=== PATIENT | male | born 1940 ===

== ENCOUNTER → 2020-01-28 13:49 | Outpatient (BNVA) | payer MEDICARE, MEDICAID, SELFPAY | PROVIDERS: PCP Internal Medicine; Referring Provider Internal Medicine; Visit Provider Internal Medicine Pulmonary Disease | DX: J47.1 Bronchiectasis with (acute) exacerbation (principal); J44.9 Chronic obstructive pulmonary disease, unspecified; Z79.899 Other long term (current) drug therapy | CPT/HCPCS: 99212 ==

== ENCOUNTER → 2020-02-11 12:46 | Outpatient (BNVA) | payer MEDICARE, MEDICAID, SELFPAY | PROVIDERS: PCP Internal Medicine; Referring Provider Internal Medicine; Visit Provider Internal Medicine Pulmonary Disease | DX: J47.9 Bronchiectasis, uncomplicated (principal); J44.9 Chronic obstructive pulmonary disease, unspecified | CPT/HCPCS: 99212 ==

== ENCOUNTER → 2020-03-25 14:06 | Outpatient (BNVA) | payer MEDICARE, MEDICAID, SELFPAY | PROVIDERS: PCP Internal Medicine; Visit Provider Internal Medicine Pulmonary Disease | DX: J44.9 Chronic obstructive pulmonary disease, unspecified (principal); A31.0 Pulmonary mycobacterial infection | CPT/HCPCS: Q3014 ==

== ENCOUNTER 2020-03-31 21:38 | Emergency (ER) | payer MEDICARE, MEDICAID, SELFPAY ==
[2020-03-31 21:44] VITALS: BP 164/103; PULSE 84; RESP 20; TEMP 36.6; O2SAT 95; BMI 25.8
--- NOTE | 2020-03-31 21:57 | ED_ITS ---
HPI - Abdominal Pain General Chief Complaint: Abdominal Pain Stated Complaint: LT GROIN PAIN Time Seen by Provider: 03/31/20 21:57 Source: patient Mode of arrival: EMS Limitations: language barrier History of Present Illness HPI narrative: Patient complaining of left groin swelling and pain for last 2 weeks off and on today he was lifting the conditioner and noticed increased pain in the left groin area which got better after coming here. Patient denies any fever no nausea no vomiting no abdominal distension patient also complaining of problem when urinating for last few days also have dry cough with history of asthma patient's bowel movements are normal no history of constipation no prior abdominal surgery Related Data Previous Rx's Medication Instructions Recorded albuterol sulfate 90 mcg/actuation 2 puff INHALATION Q4H PRN #8.5 g 02/10/20 aerosol inhaler carvedilol 6.25 mg tablet 6.25 mg PO BID #180 tab 02/10/20 losartan 25 mg tablet 25 mg PO DAILY #90 tab 02/10/20 lovastatin 10 mg tablet 10 mg PO DAILY #90 tab 02/10/20 omeprazole 40 mg capsule,delayed 40 mg PO DAILY #90 cap 02/10/20 release tobramycin 300 mg/5 mL in 0.225 % 300 mg INHALATION BID 28 Days #280 02/10/20 sodium chloride for nebulization ml travoprost 0.004 % eye drops 1 drp OPHTHALMIC (EYE) BEDTIME #5 02/10/20 ml sulfamethoxazole 800 2 tab PO BID 14 Days #56 tab 02/11/20 mg-trimethoprim 160 mg tablet ondansetron HCl 4 mg tablet 4 mg PO BID PRN 14 Days #28 tab 02/17/20 sennosides 8.6 mg tablet 8.6 mg PO BEDTIME PRN 30 Days #30 02/23/20 tab ipratropium 0.5 mg-albuterol 3 mg 3 ml INHALATION Q6H PRN #180 ml 03/25/20 (2.5 mg base)/3 mL nebulization soln prednisone 10 mg tablet 40 mg PO DAILY 7 Days #28 tab 03/25/20 Allergies Allergy/AdvReac Type Severity Reaction Status Date / Time Penicillins [PENICILLINS] Allergy Intermediate PASSED Verified 03/25/20 14:06 OUT trazodone Allergy Unknown tremors Verified 03/25/20 14:06 Review of Systems Review of Systems Constitutional : No Weight loss, No Fever, No Chills ENT/Mouth : No sore throat, No Rhinorrhea Eyes: No Eye Pain, No Swelling Cardiovascular : No Chest Pain, no palpitations Respiratory : ++Cough, No Sputum, + shortness of breath Gastrointestinal : no Nausea, No Vomiting, No Diarrhea, No abdominal Pain, no black stools Genitourinary : No Dysuria, No Urinary Frequency Musculoskeletal : No joint pain, No Myalgias, No Joint Swelling Skin : No Skin Lesions, No rash Neuro : No Weakness, No Numbness, No Dizziness, No Headache Psych : No Anxiety/Panic, No Depression Heme/Lymph: No Bruising, No Lymphadenopathy Endocrine : No Polyuria, No Polydipsia All other systems reviewed and are negative Physical Exam Vital Signs: Vital Signs: Last Vital Signs Temp 98 F 03/31/20 21:44 Pulse 70 03/31/20 23:25 Resp 16 03/31/20 23:25 BP 158/94 H 03/31/20 23:25 Pulse Ox 96 03/31/20 23:25 Body Mass Index 25.8 Const: General: cooperative, healthy appearing, comfortable and no acute distress Nutritional Appearance: average body habitus Orientation/consciousness: patient oriented x3 Limitations: no limitations HENMT: Head: Yes No palpable skull fracture present and Yes normocephalic Ears: hearing grossly normal bilaterally Eyes: Conjunctivae: conjunctivae normal Sclerae: sclerae normal Neck: Neck: Yes normal visual inspection Resp: Effort & Inspection: normal respiratory effort Auscultation: clear to auscultation bilaterally, no crackles, no rales, no rhonchi, no wheezes and diminished lung sounds Cardio: Palpation: normal PMI Rate: regular rate Rhythm: regular rhythm Heart sounds: S1 normal heart sound present and S2 normal heart sound present GI: Inspection: Yes normal to inspection Palpation (GI): Soft to palpation Auscultation: normal bowel sounds : General: Yes no CVA tenderness Male General Exam: Yes hernia (Left inguinal direct hernia reducible nontender) Penis: normal penis Scrotum: scrotum normal Testes: Testes normal Back/Spine/Pelvis: Back: no CVA tenderness Thoracic/Lumbar Spine: thoracic and lumbar spine normal to inspection Skin: General skin exam: no rashes or lesions noted Neuro: General: patient oriented x3 and no focal motor deficits Extrem: General: Yes normal to inspection, Yes normal gait and No pedal edema MDM - Abdominal Pain MDM Narrative Medical decision making narrative: Patient with reducible left direct inguinal hernia, urine is negative for any UTI chest x-ray negative for any acute COVID of 19 is also negative patient advised to follow with Dr. Ames surgeon Differential Diagnosis Differential diagnosis: Likely small bowel obstruction Lab Data Attestation: I reviewed the patient's lab results. Labs: Lab Results 03/31/20 03/31/20 Range/Units 22:11 22:15 Urine Color YELLOW Urine Appearance CLEAR Urine pH 6.0 (5.0-8.0) Ur Specific [place] >= 1.030 H (1.005-1.025) Urine Protein 1+ H (NEG-TRACE) MG/DL Urine Glucose (UA) NEG (NEG) MG/DL Urine Ketones NEG (NEG) MG/DL Urine Blood 1+ H (NEG) Urine Nitrite NEG (NEG) Ur Leukocyte Esterase NEG (NEG) Urine RBC 1-4 (0) /HPF Urine WBC 0 (0-4) /HPF Ur Squamous Epith Cells TRACE /LPF Urine Bacteria NONE /LPF Urine Mucus TRACE /LPF COVID-19 ([facility]) Negative (Negative) COVID-19 Clin Com See Note Discharge Plan Discharge Clinical Impression: Inguinal hernia of left side without obstruction or gangrene Patient Disposition: Home, Self-Care Instructions: Inguinal Hernia (ED) Additional Instructions: do not strain or lift any heavy stuff. Do not stand for long time. Follow-up with surgeon as advised. Reduce the hernia the movement it comes out so that does not stayed outside for long no fuerce ni levante objetos pesados. No te quedes de pie por mucho tiempo. Realice un seguimiento con el cirujano seg?n lo recomendado. Reducir la hernia el movimiento que sale para que no se quede afuera por mucho tiempo Prescriptions: No Action ondansetron HCl [Zofran] 4 mg tablet 4 mg PO BID PRN (Reason: nausea and vomiting) 14 Days Qty: 28 RF: 0 sennosides [senna] 8.6 mg tablet 8.6 mg PO BEDTIME PRN (Reason: constipation) 30 Days Qty: 30 RF: 0 albuterol sulfate 90 mcg/actuation HFA aerosol inhaler 2 puff inhalation Q4H PRN (Reason: shortness of breath or wheezing) Qty: 8.5 RF: 4 carvedilol 6.25 mg tablet 6.25 mg PO BID Qty: 180 RF: 0 losartan 25 mg tablet 25 mg PO DAILY Qty: 90 RF: 3 lovastatin 10 mg tablet 10 mg PO DAILY Qty: 90 RF: 3 omeprazole 40 mg capsule,delayed release(DR/EC) 40 mg PO DAILY Qty: 90 RF: 3 tobramycin in 0.225 % NaCl 300 mg/5 mL solution for nebulization 300 mg inhalation BID 28 Days Qty: 280 RF: 0 travoprost 0.004 % drops 1 drp ophthalmic (eye) BEDTIME Qty: 5 RF: 5 sulfamethoxazole-trimethoprim [Bactrim DS] 800-160 mg tablet 2 tab PO BID 14 Days Qty: 56 RF: 0 prednisone 10 mg tablet 40 mg PO DAILY 7 Days Qty: 28 RF: 0 ipratropium-albuterol 0.5 mg-3 mg(2.5 mg base)/3 mL solution for nebulization 3 ml inhalation Q6H PRN (Reason: shortness of breath or wheezing) Qty: 180 RF: 3 Referrals: Fitz Ames MD [Physician] - 1 week Interventions: ED Discharge Assessment Last Done: 03/31/20 23:36 Discharge Date/Time: 03/31/20 23:37 Print Language: Uzbek [facility] Past Medical History Medical History Congestive heart failure Essential hypertension GERD (gastroesophageal reflux disease) Glaucoma History of MAC infection Pure hypercholesterolemia Surgical History History of cystoscopy History of lumbar surgery History of rectal polypectomy Family History Family History Father No problems noted. Mother Medical history unknown Sister Diabetes Social History Social History Smoking Status: Former smoker Tobacco Type: Cigarette Advance Directives: No Advance Directives Information Provided: No
--- NOTE | 2020-03-31 22:07 | XR_ITS ---
EXAMINATION: XR CHEST CLINICAL INFORMATION: Cough. COMPARISON: Multiple prior exams. Most recent Chest x-ray 11/26/2019. CT of chest 11/26/2019 TECHNIQUE: Frontal portable view of the chest was obtained. 10:04 PM FINDINGS: There are multiple bilateral patchy irregular airspace opacities in the lungs. The pattern and distribution and severity is similar to the prior exam of 11/26/2019. Patient has known bronchiectasis better demonstrated on CT of chest. No acute airspace opacities. No pleural effusion. XR/XR chest 1V IMPRESSION: Persistent multifocal airspace opacities similar to prior chest x-ray 11/26/2019.
[2020-03-31 22:22] LABS: Glucose Urine UA NEG (NEG); Leukocyte Esterase Urine NEG (NEG); Nitrite Urine NEG (NEG); Specific Gravity - Urine >= 1.030 (1.005-1.025); Urine Blood 1+ (NEG); Urine Ketones NEG (NEG); Urine Protein 1+ MG/DL (NEG-TRACE)
[2020-03-31 22:24] LABS: Appearance Urine CLEAR; Color Urine YELLOW
[2020-03-31 22:35] LABS: COVID-19 Test Negative (Negative)
[2020-03-31 22:37] LABS: Mucus Urine TRACE /LPF; Squamous Epithelial Cell Urine TRACE /LPF; WBC Urine 0 /HPF (0-4)
[2020-03-31 23:25] VITALS: BP 158/94; PULSE 70; RESP 16; O2SAT 96
--- NOTE | 2020-03-31 23:27 | PC.NURSE ---
This RN at bedside attempting to discharge pt with historical interpreter. Pt expressing frustration at wait and lack of pain medications. MD at bedside, plan for Ibuprofen and discharge. VSS.
--- NOTE | 2020-03-31 23:35 | PC.NURSE ---
Pt provided with DC paperwork. Although pt requesting pain medication, pt refusing Ibuprofen. Pt provided with DC paperwork and ambulating with a steady gait to the waiting room.
== END 2020-03-31 23:37 | disposition home or self-care (01) ==
PROVIDERS: Emergency Provider Internal Medicine; PCP Advanced Practice Midwife
DX: K40.90 Unilateral inguinal hernia, without obstruction or gangrene, not specified as recurrent (principal); R10.30 Lower abdominal pain, unspecified; Z20.822 Contact with and (suspected) exposure to COVID-19
CPT/HCPCS: 36415; 71045; 81001; 87635; 99283; 99284

== ENCOUNTER → 2020-04-01 14:06 | Outpatient (BNVA) | payer MEDICARE, MEDICAID, SELFPAY | PROVIDERS: PCP Advanced Practice Midwife; Visit Provider Internal Medicine Pulmonary Disease | DX: J47.9 Bronchiectasis, uncomplicated (principal); A31.0 Pulmonary mycobacterial infection | CPT/HCPCS: 99212 ==

== ENCOUNTER → 2020-05-06 13:31 | Outpatient (BNVA) | payer MEDICARE, MEDICAID, SELFPAY | PROVIDERS: PCP Nurse Practitioner Family; Visit Provider Internal Medicine Pulmonary Disease | DX: J47.9 Bronchiectasis, uncomplicated (principal); A31.0 Pulmonary mycobacterial infection | CPT/HCPCS: 99212 ==

== ENCOUNTER → 2020-05-07 10:28 | Outpatient (BNVA) | payer MEDICARE, MEDICAID, SELFPAY | PROVIDERS: PCP Internal Medicine; Visit Provider Surgery | DX: K40.90 Unilateral inguinal hernia, without obstruction or gangrene, not specified as recurrent (principal) | CPT/HCPCS: 99202 ==

== ENCOUNTER → 2020-05-26 13:59 | Outpatient (BNVA) | payer MEDICARE, MEDICAID, SELFPAY | PROVIDERS: PCP Internal Medicine; Visit Provider Internal Medicine Pulmonary Disease | DX: J44.9 Chronic obstructive pulmonary disease, unspecified (principal); A31.0 Pulmonary mycobacterial infection; Z87.891 Personal history of nicotine dependence | CPT/HCPCS: Q3014 ==

== ENCOUNTER → 2020-07-06 12:51 | Outpatient (REF) | payer MEDICARE, MEDICAID, SELFPAY ==
--- NOTE | 2020-07-06 13:00 | CA_ITS ---
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 Moderate LV systolic dysfunction with LVEF of 35-40% with impaired relaxation filling pattern 2. Trace aortic regurgitation 3. Normal RV systolic pressure 4. No pericardial effusion Findings Left Ventricle Mildly increased left ventricular cavity size. There is normal left ventricular wall thickness. The left ventricular systolic function is moderately decreased. The visually estimated ejection fraction is between 35 40%. There is moderate global hypokinesis. Spectral Doppler is indicative of an impaired relaxation filling pattern. E/E prime ratio is between 8 and 15 consistent with indeterminate filling pressures. Right Ventricle Normal right ventricular cavity size and systolic function. Atria Both atria are normal in size. There is no evidence of interatrial shunt. Aortic Valve The aortic valve structure and function is likely normal. There is no aortic valve stenosis. There is trace (trivial) aortic valve regurgitation. Mitral Valve Normal mitral valve structure and function. There is trace mitral valve regurgitation. There is no mitral valve stenosis. Pulmonic Valve The pulmonic valve was not well visualized. Tricuspid Valve Normal tricuspid valve structure. There is trace tricuspid valve regurgitation. The right ventricular systolic pressure is normal. The right ventricular systolic pressure is 18 mmHg. Normal right atrial pressure. There is no evidence of pulmonary hypertension. Great Vessels All visible segments of the aorta are normal in size. The pulmonary artery was not well visualized. Venous The inferior vena cava is normal in size and collapses greater than 50% with inspiration. Pericardium/Pleural There is no evidence of pericardial effusion. Prior Study Comparison Changes noted compared to prior study dated: 04/22/2019. LV systolic function appears further mildly reduced Measurements M-Mode Liner Measurements Normals - Women/Men AOV Cusps: 2.00 1.5-2.6 cm/m2 2D Linear Measurements IVSd: 0.89 0.6-0.9/0.6-1.0 cm LVIDd: 5.43 3.9-5.3/4.2-5.9 cm LVIDd Index: 3.07 2.4-3.2/2.2-3.1 cm/m2 LVIDs: 4.75 2.0-3.6 cm LVPWd: 0.94 0.7-1.1 cm Ao Root: 3.70 2.1-3.5 cm LA Diam: 3.00 2.7-3.8/3.0-4.0 cm LAIDs Index: 1.69 1.5-2.3 cm/m2 LV Mass: 230.80 67-162/88-224 g LV Mass Index: 130.39 43-95/49-115 g/m2 LVOT Diam: 2.10 3.0+(-)1.3 cm 2D Systolic Function EF 4C: 41.20 >55% EF 2C: 27.90 >55% EF BiP: 35.80 >55% Mitral Valve MV Pk E: 0.72 MV PK A: 1.11 MV Decel Time: 152.00 E/A: 0.70 E'Lateral: 7.72 E'Medial: 4.90 E/E' Med: 14.70 E/E' Lat: 9.40 PHT: 44.00 MVA PHT: 5.00 Decel [place]: 4.76 Aortic Valve AoV Pk Darren: 1.58 AoV Mn Darren: 1.11 AoV VTI: 0.34 AoV Pk Grad: 10.00 Aov Mn Grad: 5.00 DULCE Cont.VTI: 1.41 AI Pk Darren: 3.46 AI [place]: 1.67 LVOT LVOT Pk Darren: 0.71 LVOT Mn Darren: 0.49 LVOT VTI: 0.14 LVOT Pk Grad: 2.00 LVOT Mn Grad: 1.00 LVOT Diam: 2.10 LVOT Area: 3.46 Diastolic Function MV Pk E: 0.72 MV Pk A: 1.11 E/A: 0.70 E'Medial: 4.90 E/E' Med: 14.70 E' Laterial: 7.72 E/E' Lat: 9.40 Tricuspid Valve TR Pk Darren: 1.93 TR Pk Grad: 15.00 RA Press: 3.00 RVSP: 18.00 Great Vessels Aorta Ao Root-2D: 3.70 2.0-3.7 cm Ao Arch: 2.60 Pulmonary Valve PV Pk Darren: 0.87 Peak PV Grad: 3.00 Updated in Other Vendor System with Status of Final Toñito Cantrell MD electronically signed on 07/07/2020 12:49:29 PM with status of Final
== END ==
LOC: HO.CARD 12:51
PROVIDERS: Visit Provider Internal Medicine
DX: I42.8 Other cardiomyopathies (principal)
CPT/HCPCS: 93306; Q9957

== ENCOUNTER → 2020-07-20 13:23 | Outpatient (BNVA) | payer MEDICARE, MEDICAID, SELFPAY | PROVIDERS: PCP Internal Medicine; Referring Provider Internal Medicine; Visit Provider Internal Medicine | DX: I42.8 Other cardiomyopathies (principal); I45.2 Bifascicular block | CPT/HCPCS: 93005; 99212 ==

== ENCOUNTER 2020-09-06 12:23 | Inpatient (IN) | payer MEDICARE, MEDICAID, SELFPAY ==
[2020-09-06] VITALS (9 sets, daily range): BP systolic 110–140; BP diastolic 65–100; PULSE 76–98; RESP 18–31; TEMP 36.2–36.9; O2SAT 94–97; BMI 24.6
--- NOTE | ~2020-09-06 | XR_ITS ---
EXAMINATION: PORTABLE CHEST 1 VIEW CLINICAL INFORMATION: pneumothorax . COMPARISON: 08/29/2020. TECHNIQUE: Portable frontal view of the chest was obtained. FINDINGS: Coarsened reticular markings are again seen with patchy and nodular airspace disease bilaterally. Small stable right upper pneumothorax is again noted with the size and distribution similar to today's earlier chest x-ray. The patchy nodular airspace disease is better demonstrated on the CT scan from earlier today. No significant effusion, edema, or pneumothorax. Cardiac silhouette within normal limits for size. XR/XR chest 1V IMPRESSION: Stable patchy bilateral nodular airspace disease and stable right-sided pneumothorax when compared to earlier today.
--- NOTE | ~2020-09-06 | XR_ITS ---
EXAMINATION: XR CHEST CLINICAL INFORMATION: Right pneumothorax. COMPARISON: Chest 09/07/2020 TECHNIQUE: Frontal view of the chest was obtained. FINDINGS: Again visualized is a right apical pneumothorax, stable. There are increased interstitial markings in both lungs most prominent in the right upper and midlung with mild underlying bronchiectasis, stable. Patchy opacity in the right upper lobe likely chronic atelectasis or infiltrate is stable. There is no pleural effusion. The heart size and pulmonary vascularity is normal. No gross bony abnormality. XR/XR chest 1V IMPRESSION: Unchanged right pneumothorax and chronic right upper lobe parenchymal changes, similar previous study with loss of right lung volume. There are no new findings.
--- NOTE | ~2020-09-06 | XR_ITS ---
EXAMINATION: XR CHEST CLINICAL INFORMATION: Pneumothorax. COMPARISON: 09/06/2020 TECHNIQUE: Frontal view of the chest was obtained. FINDINGS: Small right apical pneumothorax is unchanged. No pleural effusion. No left-sided pneumothorax. Coarsened reticular markings with patchy multifocal, nodular airspace disease appear unchanged from prior and are consistent with underlying bronchiectasis, bronchial wall thickening, and multifocal airspace consolidation. No new airspace disease. Cardiac and mediastinal contours are normal. Pulmonary vasculature is normal. No acute osseous findings. XR/XR chest 1V IMPRESSION: Unchanged right pneumothorax. Unchanged chronic underlying airway disease with bronchiectasis and multifocal nodular airspace disease.
--- NOTE | ~2020-09-06 | XR_ITS ---
EXAMINATION: XR CHEST CLINICAL INFORMATION: Cough. COMPARISON: Previous chest x-ray most recent March 2020 TECHNIQUE: Frontal view of the chest was obtained. FINDINGS: The cardiac and mediastinal contours are stable. There are are scattered areas of bronchial wall thickening and bronchiectasis and nodular opacities suggestive of severe airways disease. This appears increased from most recent exam March 2020. There is a small right pneumothorax. This measures 2 cm in greatest thickness at the lung apex. There is no pleural effusion. There is an old left posterior seventh rib fracture. There are degenerative changes of the spine. XR/XR chest 1V IMPRESSION: Severe airways disease with areas of bronchiectasis, bronchial wall thickening and nodular opacities. This is increased from most recent exam 03/31/2020. New small right pneumothorax.
--- NOTE | ~2020-09-06 | CT_ITS ---
EXAMINATION: CT CHEST WITHOUT CONTRAST CLINICAL INFORMATION: Confirm pneumothorax COMPARISON: Previous chest x-ray from earlier the same day and chest CT November 2019 TECHNIQUE: Multidetector volumetric CT imaging of the chest was done. Axial MIP volume rendering provided. Sagittal and coronal reformatted images were obtained. This CT examination was performed using dose optimization techniques as appropriate, variously including the following: *Automated exposure control *Adjustment of mA and/or kV according to patient size (this includes techniques or standardized protocols for targeted exams where dose is matched to indication/reason for exam; i.e. extremities or head) *Use of iterative reconstruction technique DLP: 240 mGy-cm FINDINGS: Exam is limited due to artifact from respiratory motion. LUNGS: There is evidence of severe cystic bronchiectasis in the right upper lobe which has progressed from 2020 exam. There is more cylindrical bronchiectasis seen in the right middle and right lower lobes. There are scattered areas of bronchial wall thickening and bronchial soft tissue opacification/mucous plugging suggestive of active airways disease. This is increased from 2020 exam as well. There is new soft tissue opacification with small air-fluid level in a cyst or cavity in the right upper lobe measuring approximately 2 x 2.5 cm axial image 22 series 3. There is a 1.8 cm right upper lobe nodule axial image 21 series 3 that appears unchanged. There is mild bronchial wall thickening seen in the left upper lobe. There is mild cylindrical bronchiectasis and bronchial wall soft tissue opacification and mucous plugging in the lingula. This does not appear appreciably changed. There is mild cylindrical bronchiectasis bronchial wall thickening and mucus plugging in the left lower lobe. This appears slightly increased from 2020 exam. MEDIASTINUM: There is shotty mediastinal lymphadenopathy. The heart does not appear enlarged. There is mild coronary artery calcification. There is no pericardial effusion. PLEURA: There is a small right pneumothorax. This appears loculated. This measures 2 cm the right posterior lung apex. This measures 3.5 cm at the right cardiophrenic angle. There is a very small right pleural effusion or pleural thickening. There is no left pleural effusion. AXILLA: No lymphadenopathy. UPPER ABDOMEN: Unremarkable. OSSEOUS STRUCTURES: There are degenerative changes of the spine. CT/CT chest wo con IMPRESSION: Worsening bronchiectasis and airways disease. New small loculated right pneumothorax greatest at the right lung apex and adjacent the right cardiophrenic angle.
--- NOTE | 2020-09-06 13:03 | ECG_ITS ---
Test Reason : DYSPNEA Blood Pressure : / mmHG Vent. Rate : 084 BPM Atrial Rate : 084 BPM P-R Int : 134 ms QRS Dur : 128 ms QT Int : 400 ms P-R-T Axes : 053 -47 -10 degrees QTc Int : 472 ms Normal sinus rhythm Right bundle branch block Left anterior fascicular block Bifascicular block Abnormal ECG When compared with ECG of 26-NOV-2019 14:28, No significant change was found Referred By: Odilon Callaway Electronically Signed By:ELISA BRIZUELA MD
--- NOTE | 2020-09-06 13:25 | ED_ITS ---
HPI - URI/Sore Throat General Chief Complaint: Upper Respiratory Symptoms Stated Complaint: diff breathing Time Seen by Provider: 09/06/20 13:01 Source: patient Mode of arrival: ambulatory Limitations: no limitations History of Present Illness HPI Narrative: Patient presents to ED for shortness of breath worsening past 4 days on exertion. Patient states also polydipsia and polyuria. Patient states also having a cough. Patient states no fever, chest pain, swelling of lower extremities, calf pain. Patient states history of chronic lung issues may be albuterol COPD but unsure. Patient states no relief with nebulizer at home. Related Data Home Medications Medication Instructions Recorded Confirmed brimonidine-timolol [Combigan] 1 drp OPHTHALMIC (EYE) BID 09/06/20 09/06/20 doxycycline monohydrate 100 mg PO MOWEFR 09/06/20 09/06/20 latanoprost 1 drp OPHTHALMIC (EYE) BEDTIME 09/06/20 09/06/20 prednisone 5 mg PO DAILY 09/06/20 09/06/20 Previous Rx's Medication Instructions Recorded lovastatin 10 mg tablet 10 mg PO DAILY #90 tab 02/10/20 omeprazole 40 mg capsule,delayed 40 mg PO DAILY #90 cap 02/10/20 release sennosides 8.6 mg tablet 8.6 mg PO BEDTIME PRN 30 Days #30 02/23/20 tab ipratropium 0.5 mg-albuterol 3 mg 3 ml INHALATION QID #120 ml 06/18/20 (2.5 mg base)/3 mL nebulization soln oxybutynin chloride 10 mg 10 mg PO DAILY 90 Days #90 tab 07/07/20 tablet,extended release 24 hr carvedilol 6.25 mg tablet 6.25 mg PO BID #180 tab 07/09/20 sacubitril 24 mg-valsartan 26 mg 1 tab PO BID #60 tab 07/20/20 tablet mirabegron 25 mg tablet,extended 25 mg PO DAILY 90 Days #90 tab 08/26/20 release 24 hr albuterol sulfate 90 mcg/actuation 2 puff INHALATION Q4H PRN #8.5 g 09/02/20 aerosol inhaler Allergies Allergy/AdvReac Type Severity Reaction Status Date / Time Penicillins [PENICILLINS] Allergy Intermediate PASSED Verified 07/07/20 13:54 OUT trazodone Allergy Intermediate tremors Verified 07/07/20 13:54 Review of Systems Review of Systems: Yes all other systems are reviewed and are negative Constitutional: Constitutional: Reports as per HPI and Reports no additional constitutional complaints Eyes: Eyes: Reports as per HPI and Reports no additional eye complaints ENT: Reports system reviewed and no additional complaints, except as documented and Reports as per HPI Cardiovascular: Cardiovascular: Reports as per HPI, Reports no additional cardiovascular complaints, Denies chest pain, Reports dyspnea and Reports dyspnea on exertion Respiratory: Respiratory: Reports as per HPI, Reports no additional respiratory complaints, Reports dyspnea and Reports dyspnea on exertion Gastrointestinal: Gastrointestinal: Reports as per HPI and Reports no additional gastrointestinal complaints Genitourinary: Genitourinary: Reports no additional male genitourinary complaints and Reports as per HPI Musculoskeletal: Musculoskeletal: Reports no additional musculoskeletal complaints and Reports as per HPI Neurologic: Reports system reviewed and no additional complaints, except as documented and Reports as per HPI Psychiatric: Psychiatric: Reports no additional psychiatric complaints and Reports as per HPI [facility] Past Medical History Medical History Congestive heart failure Essential hypertension GERD (gastroesophageal reflux disease) Glaucoma Hernia History of MAC infection Medicare annual wellness visit, initial NICM (nonischemic cardiomyopathy) Pure hypercholesterolemia Surgical History History of cystoscopy History of lumbar surgery History of rectal polypectomy Family History Family History Father No problems noted. Mother Medical history unknown Sister Diabetes Daughter In good health Son In good health Brother No problems noted. Social History Social History Patient Tobacco Use Status: Never used Tobacco Use of substances other than those prescribed or required for medical reasons: No Advance Directives: No Advance Directives Information Provided: No Physical Exam Vital Signs: Vital Signs: Last Vital Signs Temp 97.9 F 09/06/20 17:33 Pulse 83 09/06/20 17:33 Resp 20 09/06/20 17:33 BP 130/75 09/06/20 17:33 Pulse Ox 95 09/06/20 17:33 Oxygen Flow Rate 2 09/06/20 12:48 Body Mass Index 24.6 Const: General: cooperative, healthy appearing, comfortable, no acute distress, well developed, alert, awake and Physically active Orientatio n/consciousness: patient oriented x3 HENMT: Head: Yes normal to inspection, Yes No palpable skull fracture present, Yes normocephalic, Yes atraumatic and No abrasion Eyes: General: appearance normal, both eyes and all related structures Neck: Neck: Yes normal visual inspection, Yes full ROM, Yes no lymphadenopathy, Yes no meningeal signs, Yes trachea midline, Yes supple and No tender Chest: Chest palpation & inspection: normal inspection of the chest and normal palpation of entire chest wall Resp: Effort & Inspection: normal respiratory effort and able to speak in complete sentences Auscultation: wheezes inspiratory wheezes Cardio: Jugular venous distension: no JVD Heart sounds: S1 normal heart sound present and S2 normal heart sound present GI: Inspection: Yes normal to inspection and No abdominal wall ecchymosis Palpation (GI): Soft to palpation, not firm, nontender, no guarding and not rigid : General: No CVA tenderness and Yes no CVA tenderness Back/Spine/Pelvis: Back: no CVA tenderness, No CVA tenderness and No back tenderness Skin: General skin exam: no rashes or lesions noted and elasticity normal Neuro: General: patient oriented x3, gait normal, no meningeal signs and CN's II-XI intact bilaterally Cranial nerves: Yes CN's II-XII intact bilaterally Extrem: Other: Lower extremities negative for swelling, pitting edema, calf tenderness General: Yes normal to inspection and Yes full ROM Psych: Appearance: grossly normal, well kempt and not disheveled Course Course Course Narrative: sinus COPD exacerbation will also send a BNP to make sure there is no CHF. Reevaluation(s) Reevaluation #1: Critical result from radiologist chest x-ray which shows airway disease with small pneumothorax. Patient is stable. Patient nebulizer 98% and normal heart rate. Blood pressure normal. Patient has a white count will be given antibiotics. Contacted thoracic on-call waiting for response Time: 14:11 Reevaluation #2: so spoke with PA on-call Pradeep Ross and he was informed of patient's history, physical exam, and diagnostics. He states presently only conservative management is needed. Recommend patient to be placed on oxygen and serial x-rays every 6 hours. Time: 14:18 Reevaluation #3: Spoke with thoracic on-call Pradeep Ross call me back and states chest CT should be ordered for patient and I wrote possibly do a pigtail. Patient kept NPO. Time: 15:10 Additional Reevaluation(s): Thoracic on-call BOY Ross call me and states he spoke with the tendon wanted to hold off with IR and does have patient admitted for serial x-rays every 6 hours. MDM - URI/Sore Throat MDM Narrative Medical decision making narrative: COPD exacerbation. Pneumothorax Lab Data Result diagrams: 09/06/20 13:38 09/06/20 13:38 Labs: Lab Results 09/06/20 09/06/20 09/06/20 Range/Units 13:38 13:38 13:38 WBC 12.4 H (4.8-10.8) X10*3/uL RBC 5.49 (4.60-5.80) X10*6/uL Hgb 16.1 (14.0-18.0) g/dl Hct 49.0 (42-52) % MCV 89.3 (80-98) fL MCH 29.3 (27.0-33.0) pg MCHC 32.9 (31.0-36.0) g/dl RDW 13.3 (11.0-16.0) % Plt Count 229 (160-400) X10*3/uL MPV 9.6 (9.4-12.4) fL Immature Gran % (Auto) 0.2 (0.0-0.4) % Neut % (Auto) 90.0 H (45-73) % Lymph % (Auto) 4.6 L (20-40) % [place] % (Auto) 3.0 (2-11) % Eos % (Auto) 2.0 (0-4) % Baso % (Auto) 0.2 (0-2) % Lymph # (Auto) 0.6 L (1.2-4.9) X10*3/uL [place] # (Auto) 0.4 (0.1-1.2) X10*3/uL Eos # (Auto) 0.3 (0.0-0.4) X10*3/uL Baso # (Auto) 0.0 (0.0-0.2) X10*3/uL Abs Immat Gran (auto) 0.03 (0.00-0.03) X10*3/uL Absolute Neuts (auto) 11.2 H (2.0-8.3) X10*3/uL Absolute Nucleated RBC 0.000 (0.0-0.012) X10*3/uL Nucleated RBC % (auto) 0.0 (0.0-0.2) /100WBC Sodium 140 (135-145) mmol/L Potassium 4.3 (3.3-5.1) mmol/L Chloride 107 (96-108) mmol/L Carbon Dioxide 27 (22-29) mmol/L Anion Gap 10 L (12-20) BUN 10 (9-16) mg/dL Creatinine 0.73 (0.5-1.4) mg/dL Estim Creat Clear Calc 72.5 Estimated GFR > 60 Random Glucose 130 H (60-115) mg/dL Lactic Acid (0.5-2.0) mmol/L Calcium 8.8 (8.4-10.2) mg/dL Total Bilirubin 0.3 (0.0-1.0) mg/dL AST 15 (5-37) U/L ALT 13 (0-40) U/L Alkaline Phosphatase 70 (39-117) U/L Troponin I High Sens 6.5 (<3.5-35.0) ng/L B-Natriuretic Peptide 15 (<100) pg/mL Total Protein 7.3 (6.5-8.0) g/dL Albumin 3.9 (3.5-5.0) g/dL Urine Color Urine Appearance Urine pH (5.0-8.0) Ur Specific [place] (1.005-1.025) Urine Protein (NEG-TRACE) MG/DL Urine Glucose (UA) (NEG) MG/DL Urine Ketones (NEG) MG/DL Urine Blood (NEG) Urine Nitrite (NEG) Ur Leukocyte Esterase (NEG) Urine RBC (0) /HPF Urine WBC (0-4) /HPF Ur Squamous Epith Cells /LPF Urine Bacteria /LPF COVID-19 ([facility]) (Negative) COVID-19 Clin Com 09/06/20 09/06/20 09/06/20 Range/Units 13:39 13:45 14:51 WBC (4.8-10.8) X10*3/uL RBC (4.60-5.80) X10*6/uL Hgb (14.0-18.0) g/dl Hct (42-52) % MCV (80-98) fL MCH (27.0-33.0) pg MCHC (31.0-36.0) g/dl RDW (11.0-16.0) % Plt Count (160-400) X10*3/uL MPV (9.4-12.4) fL Immature Gran % (Auto) (0.0-0.4) % Neut % (Auto) (45-73) % Lymph % (Auto) (20-40) % [place] % (Auto) (2-11) % Eos % (Auto) (0-4) % Baso % (Auto) (0-2) % Lymph # (Auto) (1.2-4.9) X10*3/uL [place] # (Auto) (0.1-1.2) X10*3/uL Eos # (Auto) (0.0-0.4) X10*3/uL Baso # (Auto) (0.0-0.2) X10*3/uL Abs Immat Gran (auto) (0.00-0.03) X10*3/uL Absolute Neuts (auto) (2.0-8.3) X10*3/uL Absolute Nucleated RBC (0.0-0.012) X10*3/uL Nucleated RBC % (auto) (0.0-0.2) /100WBC Sodium (135-145) mmol/L Potassium (3.3-5.1) mmol/L Chloride (96-108) mmol/L Carbon Dioxide (22-29) mmol/L Anion Gap (12-20) BUN (9-16) mg/dL Creatinine (0.5-1.4) mg/dL Estim Creat Clear Calc Estimated GFR Random Glucose (60-115) mg/dL Lactic Acid 0.9 (0.5-2.0) mmol/L Calcium (8.4-10.2) mg/dL Total Bilirubin (0.0-1.0) mg/dL AST (5-37) U/L ALT (0-40) U/L Alkaline Phosphatase (39-117) U/L Troponin I High Sens (<3.5-35.0) ng/L B-Natriuretic Peptide (<100) pg/mL Total Protein (6.5-8.0) g/dL Albumin (3.5-5.0) g/dL Urine Color YELLOW Urine Appearance CLEAR Urine pH 8.0 (5.0-8.0) Ur Specific [place] 1.015 (1.005-1.025) Urine Protein 1+ H (NEG-TRACE) MG/DL Urine Glucose (UA) NEG (NEG) MG/DL Urine Ketones NEG (NEG) MG/DL Urine Blood 2+ H (NEG) Urine Nitrite NEG (NEG) Ur Leukocyte Esterase NEG (NEG) Urine RBC 10-14 H (0) /HPF Urine WBC 1-4 (0-4) /HPF Ur Squamous Epith Cells NONE /LPF Urine Bacteria NONE /LPF COVID-19 ([facility]) Negative (Negative) COVID-19 Clin Com See Note ECG Data Interpretation: normal sinus rhythm. , right bundle-branch block. Left bundle anterior fascicular block. Ventricular 84. Pr interval 134. QRS 128. QTC 472. Negative STEMI Critical Care Time Critical Care Time Critical Care Time: Yes Total Critical Care Time: 60 Attestation: x-ray shows pneumothorax. Thoracic PA on-call was notified. Patient placed on oxygen. No chest tube indicated. Discharge Plan Discharge Clinical Impression: COPD (chronic obstructive pulmonary disease), Pneumothorax Patient Disposition: Admitted As Inpatient
[2020-09-06 13:45] LABS: MANUAL DIFF FLAG NO
[2020-09-06 13:49] LABS: Basophils Percent Auto 0.2 % (0-2); Eosinophils Absolute Auto 0.3 X10*3/uL (0.0-0.4); Hemoglobin 16.1 g/dl (14.0-18.0); Imm Gran Abs Auto 0.03 X10*3/uL (0.00-0.03); Imm Gran Pct Auto 0.2 % (0.0-0.4); Lymphocytes Absolute Auto 0.6 X10*3/uL (1.2-4.9); Lymphocytes Percent Auto 4.6 % (20-40); Mean Corpuscular HGB Conc 32.9 g/dl (31.0-36.0); Mean Corpuscular Hemoglobin 29.3 pg (27.0-33.0); Mean Corpuscular Volume 89.3 fL (80-98); Mean Platelet Volume 9.6 fL (9.4-12.4); Monocytes Absolute Auto 0.4 X10*3/uL (0.1-1.2); Neutrophils Absolute Auto 11.2 X10*3/uL (2.0-8.3); Platelet Count 229 X10*3/uL (160-400); Red Blood Count 5.49 X10*6/uL (4.60-5.80); Red Cell Distribution Width 13.3 % (11.0-16.0); White Blood Count 12.4 X10*3/uL (4.8-10.8)
[2020-09-06] MEDS: Magnesium Sulfate/H2O 2 GM/50 ML PIGGYBACK IV (13:51)
[2020-09-06] MEDS: methylPREDNISolone Sod Succ 125 MG/2 ML VIAL IVPUSH (13:51)
[2020-09-06 14:01] LABS: Glucose Urine UA NEG (NEG); Leukocyte Esterase Urine NEG (NEG); Nitrite Urine NEG (NEG); Specific Gravity - Urine 1.015 (1.005-1.025); Urine Blood 2+ (NEG); Urine Ketones NEG (NEG); Urine Protein 1+ MG/DL (NEG-TRACE)
[2020-09-06] MEDS: Albuterol/Iprat 2.5/0.5MG 3 ML AMPUL.NEB INHALE ×2 (14:03→21:10)
[2020-09-06 14:09] LABS: COVID-19 Test Negative (Negative); IDNOW Serial# 08D9AD1C
[2020-09-06 14:11] LABS: Alanine Aminotransferase 13 U/L (0-40); Albumin Level 3.9 g/dL (3.5-5.0); Alkaline Phosphatase 70 U/L (39-117); Anion Gap 10 (12-20); Aspartate Amino Transferase 15 U/L (5-37); Bilirubin Total 0.3 mg/dL (0.0-1.0); Blood Urea Nitrogen 10 mg/dL (9-16); Calcium 8.8 mg/dL (8.4-10.2); Carbon Dioxide 27 mmol/L (22-29); Chloride 107 mmol/L (96-108); Creatinine Clr Calc Pharmacy 72.5; Estimated Glomerular Filt Rate > 60; Glucose Random 130 mg/dL (60-115); Potassium 4.3 mmol/L (3.3-5.1); Sodium 140 mmol/L (135-145); Total Protein 7.3 g/dL (6.5-8.0)
[2020-09-06 14:14] LABS: B Type Natriuretic Peptide 15 pg/mL (<100); Troponin-I High Sensitivity 6.5 ng/L (<3.5-35.0)
[2020-09-06 14:14] LABS: Appearance Urine CLEAR; Color Urine YELLOW
[2020-09-06] MEDS: Azithromycin 500 MG in 0.9 % Sodium Chloride 250 ML 125 MG IV (15:01)
[2020-09-06 15:17] LABS: Lactic Acid 0.9 mmol/L (0.5-2.0)
--- NOTE | 2020-09-06 15:47 | PM.CNGS ---
History of Present Illness Consult details Consult date: 09/06/20 Reason for consult: other (pneumothorax) Narrative: Is a 80-year-old male with a past medical history of CHF, COPD, MAC, hypertension, who presents to the ED for shortness of breath over the past 4 days, as well as an increase in thirst with polyuria and incontinence. Patient states his cough has gotten worse over the past couple days with clear thin sputum. Revealed severe airway disease with areas of bronchiectasis, bronchial wall thickening and nodular opacities. Also noted is a small right apical pneumothorax 2 cm in size for which thoracic surgery was consulted for. Patient is Martiniquais-speaking primarily my interview with patient was performed with the use of emergency room foreign language interpreter. Patient states that this is his first occurrence with a spontaneous pneumothorax. He denies any recent trauma to his chest. During my assessment patient was resting comfortably in stretcher in no acute distress, speaking in full sentences with oxygen saturations 96% on 2 L nasal cannula. He denies any chest pain or discomfort and states that his breathing treatments have provided a great deal of relief. Thus far he has received duo nebs with methylprednisone 125 mg IV. Patient is also currently receiving azithromycin. Review of Systems Constitutional: Comments: All other 12 point review of systems is negative.other than what is listed in HPI [facility] Past Medical History Medical History Congestive heart failure Essential hypertension GERD (gastroesophageal reflux disease) Glaucoma Hernia History of MAC infection Medicare annual wellness visit, initial NICM (nonischemic cardiomyopathy) Pure hypercholesterolemia Family History Family History Father No problems noted. Mother Medical history unknown Sister Diabetes Daughter In good health Son In good health Brother No problems noted. Surgical History Surgical History History of cystoscopy History of lumbar surgery History of rectal polypectomy Social History Social History Household Members: None Housing: Apartment Do you presently have visiting nurse or other home services: Yes Patient Tobacco Use Status: Never used Tobacco service: No Current occupational status: retired Meds Allergies Allergy/AdvReac Type Severity Reaction Status Date / Time Penicillins [PENICILLINS] Allergy Intermediate PASSED Verified 09/14/20 14:46 OUT trazodone Allergy Intermediate tremors Verified 09/14/20 14:46 Active Medications: Current Medications Generic Name Dose Route Start Last Admin Trade Name Caitlyn PRN Reason Stop Dose Admin Azithromycin 500 mg/ Sodium 250 mls @ 125 mls/hr 09/06/20 14:05 09/06/20 15:01 Chloride IV 09/06/20 16:04 125 mls/hr ONCE ONE Administration Home Medications Medication Instructions Recorded Confirmed Last Taken Type Combigan 1 drp OPHTHALMIC (EYE) BID 09/06/20 09/06/20 Unknown History doxycycline monohydrate 100 mg PO MOWEFR 09/06/20 09/06/20 Unknown History latanoprost 1 drp OPHTHALMIC (EYE) BEDTIME 09/06/20 09/06/20 Unknown History Physical Exam Vital Signs: Vital Signs: Last Vital Signs Temp 98.4 F 09/06/20 12:48 Pulse 87 09/06/20 15:11 Resp 31 H 09/06/20 15:11 BP 131/82 09/06/20 15:11 Pulse Ox 96 09/06/20 15:11 Oxygen Flow Rate 2 09/06/20 12:48 Body Mass Index 24.6 Const: General: cooperative, comfortable and no acute distress Nutritional Appearance: well nourished Orientation/consciousness: patient oriented x3 HENMT: Head: Yes normal to inspection Eyes: Conjunctivae: conjunctivae normal Neck: Neck: Yes normal visual inspection and Yes trachea midline Chest: Chest palpation & inspection: normal inspection of the chest and no crepitus Resp: Other: Breath sounds positive for wheezes appreciated bilaterally throughout all lung marcial. Cardio: Jugular venous distension: no JVD Rate: regular rate Rhythm: regular rhythm Heart sounds: no gallops, no murmurs and no rubs GI: Inspection: Yes normal to inspection Palpation (GI): Soft to palpation and nontender Skin: Other: Warm and dry. Neuro: General: patient oriented x3 Results Labs Result diagrams: 09/07/20 06:10 09/07/20 06:10 Labs: Abnormal lab results 09/06/20 09/06/20 09/06/20 Range/Units 13:38 13:38 13:45 WBC 12.4 H (4.8-10.8) X10*3/uL Neut % (Auto) 90.0 H (45-73) % Lymph % (Auto) 4.6 L (20-40) % Lymph # (Auto) 0.6 L (1.2-4.9) X10*3/uL Absolute Neuts (auto) 11.2 H (2.0-8.3) X10*3/uL Anion Gap 10 L (12-20) Random Glucose 130 H (60-115) mg/dL Urine Protein 1+ H (NEG-TRACE) MG/DL Urine Blood 2+ H (NEG) Urine RBC 10-14 H (0) /HPF Short CBC 09/06/20 Range/Units 13:38 WBC 12.4 H (4.8-10.8) X10*3/uL Hgb 16.1 (14.0-18.0) g/dl Hct 49.0 (42-52) % Plt Count 229 (160-400) X10*3/uL BMP 09/06/20 13:38 Sodium 140 Potassium 4.3 Chloride 107 Carbon Dioxide 27 BUN 10 Creatinine 0.73 Calcium 8.8 Liver Function 09/06/20 Range/Units 13:38 Total Bilirubin 0.3 (0.0-1.0) mg/dL AST 15 (5-37) U/L ALT 13 (0-40) U/L Alkaline Phosphatase 70 (39-117) U/L Albumin 3.9 (3.5-5.0) g/dL Urine 09/06/20 Range/Units 13:45 Urine Color YELLOW Urine Appearance CLEAR Urine pH 8.0 (5.0-8.0) Ur Specific [place] 1.015 (1.005-1.025) Urine Protein 1+ H (NEG-TRACE) MG/DL Urine Glucose (UA) NEG (NEG) MG/DL All other labs normal. Assessment and Plan (1) Pneumothorax: Start date: 09/06/20 Qualifiers: Pneumothorax type: spontaneous, primary Qualified Code(s): J93.11 - Primary spontaneous pneumothorax Status: Acute Patient is a 80-year-old male with a past medical history of Mycobacterium avium intracellular, COPD, bronchiectasis, CHF, glaucoma, bifascicular block presents to the emergency department with a COPD exacerbation and subsequently found to have a small right-sided apical pneumothorax, diffuse bullous emphysema and nodular opacities appreciated on chest CT. Based off of patient's chest x-ray and chest CT his right-sided apical pneumothorax is less than 20% and is in his breathing and respiratory status remained stable on 2 L nasal cannula no chest tube is warranted at this time. Recommend to follow-up with chest x-ray in 6 hours to ensure stability of right apical pneumothorax. Repeat chest x-ray for tomorrow a.m. Should patient's respiratory status decompensate or his pneumothorax increased in size would recommend contacting interventional radiology for image guided pigtail placement. Continue with every 4 duo nebs, IV steroids and azithromycin for COPD exacerbation. Incentive spirometry. In regards to his severe bullous emphysema and multiple nodular opacifications, will discuss possible surgical intervention with Thoracic surgeon Dr. Merlos for possible bullectomy, and or VATS wedge resection to rule out lung carcinoma down the future. Recommend to keep n.p.o. for now until stability of right apical pneumothorax is proven with serial x-rays. Recommend patient be admitted to medicine services for overnight care and observation. Thoracic surgery will continue to follow. Thank you for allowing me to participate in this patient's care if you have any questions or concerns with a hesitate to contact the thoracic surgical office sincerely Richardson Ross PA-C Procedures Date of Service Date of Service: 09/06/20
--- NOTE | 2020-09-06 17:33 | PHA.MEDREC ---
Pharmacy Consult ? Medication Reconciliation Pharmacy has completed the medication reconciliation. -Martha Giles [facility]
[2020-09-06] MEDS: cefTRIAXone sodium 1 GM in 0.9 % Sodium Chloride 50 ML IV (17:45)
--- NOTE | 2020-09-06 18:45 | PM.EVENT ---
Event Note Date of Service: 09/06/20 Event Note: patient seen examined case discussed with APC briefly this is a 79-year old gentleman, former smoker with underlying history of hypertension, GERD, congestive heart failure bronchiectasis and chronic JESSA, previously treated with 8 months of azithromycin, rifampin, ethambutol, currently on prednisone, doxycycline 100 mg on Sunday and Sunday presented to [facility] due to worsening shortness of breath of few days duration associated with dry cough of several months duration, patient denies any fever chills in the emergency room CT chest showed worsening bronchiectases and airway disease,mucus plugging in the lingula and small right apical pneumothorax on examination awake alert in no acute distress neck no JVD lungs coarse breath sound, no wheeze no rhonchi extremities no edema assessment and plan acute exacerbation of underlying bronchiectases and small right pneumothorax will admit patient for close monitoring and treatment will place him on IV ceftriaxone and azithromycin no evidence of sepsis,will continue DuoNeb ,add iv steroids,cough syp, follow blood cultures will do serial chest x-rays for pneumothorax, will obtain pulmonary and thoracic surgery consultation.
--- NOTE | 2020-09-06 20:50 | PC.NURSE ---
[facility] UNABLE TO TAKE REPORT, WILL RETURN CALL.
--- NOTE | 2020-09-06 21:13 | PC.NURSE ---
REPORT GIVEN TO FLOOR. PT AWAITING FOR TRANSFER TO FLOOR.
--- NOTE | 2020-09-06 21:17 | HP_ITS ---
DATE OF SERVICE: 09/06/2020 CHIEF COMPLAINT: Cough. HISTORY OF PRESENT ILLNESS: A 80-year-old Belarusian-speaking male presenting to the ER with complaint of 4 days of worsening shortness of breath and cough. He denied fever, chills, nausea, vomiting, or diarrhea. When asked, he reported that he has actually had this cough for several months and had followed up with his primary care provider in the past. He reports a history of COPD, and he quit smoking about 5 years ago. A chest CT showed worsening bronchiectasis and airway disease with new small loculated right pneumothorax, greatest at the right lung apex and adjacent to the right cardiophrenic angle. His white blood cell count was elevated at 12.4. Urinalysis negative. COVID-19 negative. He had no fever and all other vital signs were stable. He was treated by a machinist in May of 2020, and he was treated for underlying history of bronchiectasis and chronic JESSA. He had been treated with 8 months of azithromycin, rifampin, ethambutol, and had a bronchoscopy with bronchoalveolar lavage that was growing multiple organisms. During his visit, there were no new findings, although he did seem to have an acute exacerbation of bronchiectasis and was treated with steroids and antibiotics. He was given azithromycin, ceftriaxone, albuterol while in the ER. He will be admitted for further management and treatment of acute pneumothorax secondary to bronchiectasis. PAST MEDICAL HISTORY: 1. Congestive heart failure with EF of 35% to 40%, normal RV systolic pressure, normal left ventricular wall thickness, left ventricular systolic function moderately decreased with moderate global hypokinesis. 2. Hypertension. 3. GERD. 4. Glaucoma. 5. Hernia. 6. History of MAC infection. 7. Hyperlipidemia. 8. Bronchiectasis. 9. Treatment for JESSA. 10. Hernia. 11. Nonischemic cardiomyopathy. PAST SURGICAL HISTORY: 1. Cystoscopy. 2. Lumbar surgery. 3. Rectal polypectomy. SOCIAL HISTORY: Lives alone. 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 Quit smoking 5 years ago. Denies alcohol or illicit drug use. Does not use any assistive devices for ambulation. FAMILY HISTORY: According to the record, no cardiac disease. ALLERGIES: TO PENICILLIN AND TRAZODONE. MEDICATIONS: 1. Albuterol sulfate 2 puffs q.4 hours p.r.n. 2. Brimonidine timolol 1 drop each eye twice daily. 3. Carvedilol 6.25 mg p.o. b.i.d. 4. Doxycycline monohydrate 100 mg p.o. Sunday, Sunday, and Sunday. 5. Ipratropium 3 mL nebulization solution 4 times daily. 6. Latanoprost 1 drop at bedtime. 7. Lovastatin 10 mg p.o. at bedtime. 8. Mirabegron 25 mg daily. 9. Omeprazole 40 mg p.o. daily. 10. Oxybutynin chloride 10 mg p.o. daily. 11. Prednisone 5 mg p.o. daily. 12. Entresto 26 mg tablet 1 tab p.o. b.i.d. 13. Sennoside 8.6 mg p.o. at bedtime p.r.n. REVIEW OF SYSTEMS: CONSTITUTIONAL: Denies any recent fever, chills, or decrease in appetite. RESPIRATORY: See HPI. CARDIOVASCULAR: Denies any chest pain, orthopnea, PND, or edema. GASTROINTESTINAL: Denies any dysphagia, abdominal pain, nausea, vomiting, or diarrhea. GENITOURINARY: Denies any dysuria, frequency, hematuria. MUSCULOSKELETAL: Denies any joint pain or swelling. NEUROPSYCH: Denies any weakness or seizures. All other systems are reviewed and are negative. PHYSICAL EXAMINATION: CONSTITUTIONAL: Resting in bed, appearing in no acute distress. VITAL SIGNS: 97.9, 83, 20, 130/75, 95% on 2 L. SKIN: Is intact without rash or open sores. HEENT: Head is normocephalic, atraumatic. Eyes, pupils are PERRLA. Sclerae anicteric. Mouth and Throat: Mucous membranes are intact and moist. NECK: Supple. No lymphadenopathy. No JVD noted. CHEST: Clear with shortened expiratory phase. HEART: Regular rate and rhythm. ABDOMEN: Positive bowel sounds. NEURO: The patient is alert and oriented x3. Cranial nerves II to XII are grossly intact without focal deficits. LABS: COVID negative. WBC 12.4, hemoglobin 16.1, hematocrit 49.0, platelets 229. INR 1.1. Sodium is 140, potassium is 4.3, chloride is 107, bicarb is 27, BUN is 10, creatinine 0.73. Urinalysis negative for infection. ASSESSMENT AND PLAN: A 80-year-old [place]ian-speaking man who is being admitted with new onset pneumothorax secondary to history of bronchiectasis. 1. Pneumothorax secondary to bullous emphysema/ COPD exacerbation ,will treat with IV antibiotics, IV steroids, scheduled Duonebs, obtain pulmonology consultation, we will consult Thoracic Surgery , will follow serial chest x-ray to watch for any progression. If at any point pneumothorax becomes bigger or he has any type of respiratory distress, he will require a chest tube. Continue oxygen supplementation. patient is at risk for recurrent pneumothorax secondary to underlying bulous emphysema. 2. History of heart failure with reduced ejection fraction. Continue Entresto, carvedilol. No overt exacerbation at this time, monitor on telemetry. 3. Gastroesophageal reflux disease. Continue proton pump inhibitor. 4. Leukocytosis, likely secondary to steroids and infection. 5. Deep venous thrombosis prophylaxis with heparin. 6. Case discussed with Dr. Zelaya. 7. Full code. SUNI Miguel MD JR/NESSA / [id number] MTDD
--- NOTE | 2020-09-06 21:24 | MHC.CM.PN ---
Met with patient via medical records receptionist, pt is Kinyarwanda speaking only. Lives alone and has no family locally. Has friend and contact Alexandra Brunner ([phone]), but patient states she has schizophrenia and is not reliable. Pt states he uses a nebulizer and has a HOP SEPARATOR 1 hour per day, 7 days a week. Pt states he gets SOB with minimal exertion at home. Pt is aware that he is admitted to hospital, room 468, will be here for several days and have frequent CXR to evaluate his pneumothorax. Aware he will have a respiratory evaluation prior to d/c to assess his oxygen needs. IMM reviewed and signed per protocol. Copy given to pt and in chart. HCP/son Yao Herman Jr. ([phone]) lives in [facility]. D/C plan is [facility] vs [facility]. Transportation unknown at this time. CM to follow for d/c needs.
[2020-09-06] MEDS: Heparin Sodium,Porcine 5,000 UNIT/ML VIAL 5000 UNIT SUBCUT (22:14)
[2020-09-06] MEDS: methylPREDNISolone Sod Succ 40 MG/ML VIAL IVPUSH (22:14)
[2020-09-06] MEDS: guaiFENesin DM 200/20/10 ML 10 ML SYRUP PO (22:14)
[2020-09-06] MEDS: Latanoprost 0.005 % Ophth Sol 2.5 ML DROPS 1 DROP EYE-BOTH (22:15)
[2020-09-06] MEDS: carvediloL 6.25 MG TABLET PO (22:15)
[2020-09-06] MEDS: Sacubitril/Valsartan 24/26 1 TAB TABLET PO (22:15)
[2020-09-06] MEDS: 0.9 % Sodium Chloride Flush 3 ML SYRINGE IVFLUSH (22:16)
[2020-09-07] VITALS (11 sets, daily range): BP systolic 104–139; BP diastolic 59–78; PULSE 70–95; RESP 18–20; TEMP 36.7–37.2; O2SAT 91–99
[2020-09-07] MEDS: Omeprazole 40 MG CAPSULE.DR PO (05:47)
[2020-09-07 06:48] LABS: Basophils Percent Auto 0.1 % (0-2); Hematocrit 51.3 % (42-52); Hemoglobin 16.8 g/dl (14.0-18.0); Imm Gran Abs Auto 0.05 X10*3/uL (0.00-0.03); Imm Gran Pct Auto 0.4 % (0.0-0.4); Lymphocytes Absolute Auto 0.6 X10*3/uL (1.2-4.9); Lymphocytes Percent Auto 4.5 % (20-40); MANUAL DIFF FLAG SCAN; Mean Corpuscular HGB Conc 32.7 g/dl (31.0-36.0); Mean Corpuscular Hemoglobin 29.6 pg (27.0-33.0); Mean Corpuscular Volume 90.3 fL (80-98); Mean Platelet Volume 9.9 fL (9.4-12.4); Monocytes Absolute Auto 0.1 X10*3/uL (0.1-1.2); Neutrophils Absolute Auto 12.5 X10*3/uL (2.0-8.3); Platelet Count 269 X10*3/uL (160-400); Red Blood Count 5.68 X10*6/uL (4.60-5.80); Red Cell Distribution Width 13.3 % (11.0-16.0); SCAN SMEAR FLAG 1; White Blood Count 13.3 X10*3/uL (4.8-10.8)
[2020-09-07 07:27] LABS: Anion Gap 14 (12-20); Blood Urea Nitrogen 17 mg/dL (9-16); Carbon Dioxide 25 mmol/L (22-29); Chloride 105 mmol/L (96-108); Creatinine Clr Calc Pharmacy 67.8; Estimated Glomerular Filt Rate > 60; Glucose Random 157 mg/dL (60-115); Potassium 4.3 mmol/L (3.3-5.1); Sodium 140 mmol/L (135-145)
[2020-09-07 07:36] LABS: SLIDE REVIEW VERIFIED
[2020-09-07] MEDS: Albuterol/Iprat 2.5/0.5MG 3 ML AMPUL.NEB INHALE ×4 (07:54→20:16)
[2020-09-07] MEDS: carvediloL 6.25 MG TABLET PO ×2 (08:49→20:50)
[2020-09-07] MEDS: Mirabegron 25 MG TAB.ER.24H PO (08:49)
[2020-09-07] MEDS: Sacubitril/Valsartan 24/26 1 TAB TABLET PO ×2 (08:49→20:51)
[2020-09-07] MEDS: Heparin Sodium,Porcine 5,000 UNIT/ML VIAL 5000 UNIT SUBCUT ×2 (08:50→20:51)
[2020-09-07] MEDS: 0.9 % Sodium Chloride Flush 3 ML SYRINGE IVFLUSH ×2 (08:50→14:34)
[2020-09-07] MEDS: guaiFENesin DM 200/20/10 ML 10 ML SYRUP PO ×3 (08:50→20:50)
[2020-09-07] MEDS: methylPREDNISolone Sod Succ 40 MG/ML VIAL IVPUSH ×2 (08:50→20:51)
--- NOTE | 2020-09-07 09:08 | PM.CNPUL ---
History of Present Illness History of Present Illness Consult date: 09/07/20 Chief complaint: Note : patient seen for pulmonary consultation. [facility] Past Medical History Medical History Congestive heart failure Essential hypertension GERD (gastroesophageal reflux disease) Glaucoma Hernia History of MAC infection Medicare annual wellness visit, initial NICM (nonischemic cardiomyopathy) Pure hypercholesterolemia Family History Family History Father No problems noted. Mother Medical history unknown Sister Diabetes Daughter In good health Son In good health Brother No problems noted. Surgical History Surgical History History of cystoscopy History of lumbar surgery History of rectal polypectomy Social History Social History Household Members: None Housing: Apartment Do you presently have visiting nurse or other home services: Yes Patient Tobacco Use Status: Never used Tobacco Use of substances other than those prescribed or required for medical reasons: No Currently Displaying Signs/Symptoms of Drug Intoxication Withdrawal: No Have you been hit, kicked, punched, or otherwise hurt by someone within the past year? If so, by whom?: No Do you feel safe in your current relationship?: No Is there a partner from a previous relationship who is making you feel unsafe now?: No Are you made to feel afraid or neglected: No Advance Directives: No Advance Directives Information Provided: No Do you have thoughts of harming others: None Do you have a plan to hurt others: No Plan Recently lost weight without trying: No Eating poorly because of decreased appetite: No Nutrition Risks: No Nutritional Risk Poor oral hygiene: No service: No Current occupational status: retired Meds Allergies Allergy/AdvReac Type Severity Reaction Status Date / Time Penicillins [PENICILLINS] Allergy Intermediate PASSED Verified 07/07/20 13:54 OUT trazodone Allergy Intermediate tremors Verified 07/07/20 13:54 Active Medications: Current Medications Generic Name Dose Route Start Last Admin Trade Name Freq PRN Reason Stop Dose Admin Acetaminophen 650 mg 09/06/20 17:54 Acetaminophen 325 Mg Tablet PO Q6H PRN Pain, Mild (Pain Scale 1-3) Albuterol/Ipratropium 3 ml 09/06/20 20:00 09/07/20 07:54 Albuterol/Iprat 2.5/0.5mg 3 Ml Ampul.Neb INHALE 3 ml RQ4H WHILE AWAKE TON Administration Carvedilol 6.25 mg 09/06/20 21:00 09/07/20 08:49 Carvedilol 6.25 Mg Tablet PO 6.25 mg BID TON Administration Protocol Guaifenesin/Dextromethorphan 10 ml 09/06/20 20:00 09/07/20 08:50 Guaifenesin Dm 200/20/10 Ml 10 Ml Syrup PO 10 ml Q6H TON Administration Heparin Sodium (Porcine) 5,000 unit 09/06/20 21:00 09/07/20 08:50 Heparin Sodium,Porcine 5,000 Unit/Ml Vial SUBCUT 5,000 unit Q12H TON Administration Azithromycin 500 mg/ Sodium 250 mls @ 125 mls/hr 09/07/20 15:00 Chloride IV Q24H TON Ceftriaxone Sodium 1 gm/ 50 mls @ 100 mls/hr 09/07/20 15:00 Sodium Chloride IV Q24H TON Latanoprost 1 drop 09/06/20 21:00 09/06/20 22:15 Latanoprost 0.005 % Ophth Thalia 2.5 Ml Drops EYE-BOTH 1 drop BEDTIME TON Administration Methylprednisolone Sodium Succinate 40 mg 09/06/20 21:00 09/07/20 08:50 Methylprednisolone Sod Succ 40 Mg/Ml Vial IVPUSH 40 mg Q12H TON Administration Mirabegron 25 mg 09/07/20 09:00 09/07/20 08:49 Mirabegron 25 Mg Tab.Er.24h PO 25 mg DAILY TON Administration Omeprazole 40 mg 09/07/20 06:30 09/07/20 05:47 Omeprazole 40 Mg Capsule.Dr PO 40 mg DAILY@0630 TON Administration Ondansetron HCl 4 mg 09/06/20 17:54 Ondansetron Hcl 4 Mg/2 Ml Vial IVPUSH Q8H PRN Nausea and Vomiting Oxybutynin Chloride 10 mg 09/07/20 09:00 09/07/20 08:50 Oxybutynin Chloride Er 5 Mg Tab.Er.24 PO 10 mg DAILY TON Administration Pharmacy Consult 1 each 09/06/20 16:49 Consult Rx Perform Med Rec MISCELLANE ONCE PRN Consult order Pravastatin Sodium 10 mg 09/07/20 22:00 Pravastatin Sodium 10 Mg Tablet PO DAILY@2200 [facility] Sacubitril/Valsartan 1 tab 09/06/20 21:00 09/07/20 08:49 Sacubitril/Valsartan 1 Tab Tablet PO 1 tab BID [facility] Administration Protocol Senna 8.6 mg 09/06/20 17:54 Sennosides 8.6 Mg Tablet PO BEDTIME PRN constipation Sodium Chloride 3 ml 09/07/20 00:00 09/07/20 08:50 0.9 % Sodium Chloride Flush 3 Ml Syringe IVFLUSH 3 ml QSHIFT [facility] Administration Home Medications Medication Instructions Recorded Confirmed Last Taken Type brimonidine-timolol [Combigan] 1 drp OPHTHALMIC (EYE) BID 09/06/20 09/06/20 Unknown History doxycycline monohydrate 100 mg PO MOWEFR 09/06/20 09/06/20 Unknown History latanoprost 1 drp OPHTHALMIC (EYE) BEDTIME 09/06/20 09/06/20 Unknown History prednisone 5 mg PO DAILY 09/06/20 09/06/20 Unknown History Physical Exam Vital Signs: Vital Signs: Last Vital Signs Temp 98.0 F 09/07/20 08:00 Pulse 85 09/07/20 08:49 Resp 20 09/07/20 08:00 BP 139/78 09/07/20 08:49 Pulse Ox 95 09/07/20 08:00 Oxygen Flow Rate 2 09/06/20 12:48 Body Mass Index 24.6 Results Laboratory Findings CBC and BMP: 09/07/20 06:10 09/07/20 06:10 Abnormal lab findings: Abnormal Labs 09/06/20 09/06/20 09/06/20 13:38 13:38 13:45 WBC 12.4 H Neut % (Auto) 90.0 H Lymph % (Auto) 4.6 L [place] % (Auto) Lymph # (Auto) 0.6 L Abs Immat Gran (auto) Absolute Neuts (auto) 11.2 H Anion Gap 10 L BUN Random Glucose 130 H Urine Protein 1+ H Urine Blood 2+ H Urine RBC 10-14 H 09/07/20 09/07/20 06:10 06:10 WBC 13.3 H Neut % (Auto) 94.0 H Lymph % (Auto) 4.5 L [place] % (Auto) 1.0 L Lymph # (Auto) 0.6 L Abs Immat Gran (auto) 0.05 H Absolute Neuts (auto) 12.5 H Anion Gap BUN 17 H D Random Glucose 157 H Urine Protein Urine Blood Urine RBC Assessment and Plan (1) COPD (chronic obstructive pulmonary disease): Status: Acute He has a acute exacerbation of COPD at this time, may be brought on by a nonspecific respiratory infection. Blood cultures are pending. I have also ordered a sputum Gram stain and culture sensitivity. continue treatment with IV Solu-Medrol, DuoNeb updrafts, O2 supplementation, and a course of IV azithromycin and ceftriaxone. (2) JESSA (mycobacterium avium-intracellulare): Status: Acute Has been treated for M AI infection in the past. currently not active. (3) Bronchiectasis: Status: Acute He has chronic extensive bilateral alveolar and nodular disease with bronchiectasis. Continue treatment as noted under COPD exacerbation. (4) Pneumothorax: Status: Acute Pneumothorax is small and relatively stable, and may resolve itself. CT scan shows that he does have cystic /bullous lung disease, and at risk of recurrent pneumothorax. Procedures Date of Service Date of Service: 09/07/20
--- NOTE | 2020-09-07 09:12 | P.PNTS_ITS ---
Subjective Subjective Date of Service: 09/07/20 Interval history: Patient seen and examined this am with lang interpreter. Doing well. States his breathing is improved on 2L nasal cannula. Denies any respiratory distress. Reports he continues to void frequently and having small bowel movements. Reports a non-productive cough. No other complaints at this time. Physical Exam Vital Signs: Vital Signs: Last Vital Signs Temp 98.0 F 09/07/20 08:00 Pulse 85 09/07/20 08:49 Resp 20 09/07/20 08:00 BP 139/78 09/07/20 08:49 Pulse Ox 95 09/07/20 08:00 Oxygen Flow Rate 2 09/06/20 12:48 Body Mass Index 24.6 Const: General: cooperative, healthy appearing, comfortable and no acute distress Nutritional Appearance: well nourished Orientation/consciousness: oriented to person, oriented to place, oriented to time and patient oriented x3 Limitations: no limitations HENMT: Head: Yes normal to inspection, Yes normocephalic and Yes atraumatic Mouth: Normal oral and palatal mucosa present Eyes: Visual Marcial: normal visual marcial by confrontation Alignment and Position: alignment normal Periorbital: periorbital findings normal Conjunctivae: conjunctivae normal Sclerae: sclerae normal Pupils: Equal, round and reactive pupils present and Pupil accommodation reflex normal EOM: EOMs intact bilaterally Neck: Neck: Yes normal visual inspection, Yes full ROM, Yes no lymphadenopathy, Yes trachea midline, Yes supple, No lymphadenopathy, No tender and No tracheal deviation Lymphatic: no lymphadenopathy noted Chest: Chest palpation & inspection: normal inspection of the chest and no crepitus Resp: Other: Patient is currently on 2L O2 via nasal cannula. Able to speak in full sentences. No respiratory distress. Lung sounds with scattered inspiratory and expiratory wheezes and rhonchi throughout bilateral lung marcial. Effort & Inspection: normal respiratory effort, able to speak in complete sentences, normal respiratory pattern, Actively coughing, no pursed lip breathing, no respiratory distress, no stridor, not tachypneic and no tracheal deviation Cardio: Jugular venous distension: no JVD Palpation: normal PMI Rate: regular rate Rhythm: regular rhythm Heart sounds: S1 normal heart sound present, S2 normal heart sound present, no click, no gallops, no murmurs and no rubs GI: Inspection: Yes normal to inspection Auscultation: normal bowel sounds : General: Yes no CVA tenderness Back/Spine/Pelvis: Back: no CVA tenderness Thoracic/Lumbar Spine: thoracic and lumbar spine normal to inspection Skin: General skin exam: no rashes or lesions noted and dry skin Lesions: no lesions Rashes: no rashes Neuro: General: oriented to person, oriented to place, oriented to time, patient oriented x3 and gait normal Cranial nerves: Yes Equal, round and reactive pupils present Extrem: General: Yes normal to inspection, Yes full ROM, Yes capillary refill normal, Yes no clubbing, cyanosis or edema, Yes no pedal edema and Yes normal gait Psych: Appearance: grossly normal and well kempt Mental Status: mental status grossly normal Speech and movement: Normal speech and movement present and Clear speech present Affect: normal affect Attitude: cooperative Thought process: Normal thought process present Thought content: Normal thought content present Progress Note: A&P Assessment and plan (1) Pneumothorax: Status: Acute Assessment and Plan: Patient is a 80 y.o. St [place] speaking male with a past medical history of Mycobacterium avium intracellular, COPD, bronchiectasis, CHF, glaucoma, bifascicular block presents to the emergency department with a COPD exacerbation and subsequently found to have a small right-sided apical pneumothorax, diffuse bullous emphysema and nodular opacities appreciated on chest CT. * Today's am chest x-ray showed no change to small right apical PTX. Based off of patient's chest x-ray and chest CT his right-sided apical pneumothorax is less than 20% and is in his breathing and respiratory status remained stable on 2 L nasal cannula no chest tube is warranted at this time. * Repeat chest x-ray for tomorrow a.m. * Should patient's respiratory status decompensate or his pneumothorax increased in size would recommend contacting interventional radiology for image guided pigtail placement. * Continue with every 4 duo nebs, IV steroids and azithromycin for COPD exacerbation. * Incentive spirometry. * No plans for surgical intervention at this time. There is a new soft tissue opacification with small air-fluid level in a cyst or cavity in the right upper lobe measuring approximately 2 x 2.5 cm along with a previously seen 1.8 cm right upper lobe nodule that appears unchanged from previous chest CT scan. Patient will need to continue to be followed in the outpatient setting for these findings. No mediastinal lymphadenopathy noted. Patient states he is currently followed by Dr. Duenas for his lung conditions. Will look in to whether or not he is getting routine scans in the outpatient setting given his smoking hx and nodule findings. * May d/c NPO status and resume diet Thank you for allowing me to participate in this patient's care if you have any questions or concerns with a hesitate to contact the thoracic surgical office Fall Risk Details Current Medications: Current Medications Generic Name Dose Route Start Last Admin Trade Name Freq PRN Reason Stop Dose Admin Acetaminophen 650 mg 09/06/20 17:54 Acetaminophen 325 Mg Tablet PO Q6H PRN Pain, Mild (Pain Scale 1-3) Albuterol/Ipratropium 3 ml 09/06/20 20:00 09/07/20 07:54 Albuterol/Iprat 2.5/0.5mg 3 Ml Ampul.Neb INHALE 3 ml RQ4H WHILE AWAKE TON Administration Carvedilol 6.25 mg 09/06/20 21:00 09/07/20 08:49 Carvedilol 6.25 Mg Tablet PO 6.25 mg BID TON Administration Protocol Guaifenesin/Dextromethorphan 10 ml 09/06/20 20:00 09/07/20 08:50 Guaifenesin Dm 200/20/10 Ml 10 Ml Syrup PO 10 ml Q6H TON Administration Heparin Sodium (Porcine) 5,000 unit 09/06/20 21:00 09/07/20 08:50 Heparin Sodium,Porcine 5,000 Unit/Ml Vial SUBCUT 5,000 unit Q12H TON Administration Azithromycin 500 mg/ Sodium 250 mls @ 125 mls/hr 09/07/20 15:00 Chloride IV Q24H TON Ceftriaxone Sodium 1 gm/ 50 mls @ 100 mls/hr 09/07/20 15:00 Sodium Chloride IV Q24H TON Latanoprost 1 drop 09/06/20 21:00 09/06/20 22:15 Latanoprost 0.005 % Ophth Thalia 2.5 Ml Drops EYE-BOTH 1 drop BEDTIME TON Administration Methylprednisolone Sodium Succinate 40 mg 09/06/20 21:00 09/07/20 08:50 Methylprednisolone Sod Succ 40 Mg/Ml Vial IVPUSH 40 mg Q12H TON Administration Mirabegron 25 mg 09/07/20 09:00 09/07/20 08:49 Mirabegron 25 Mg Tab.Er.24h PO 25 mg DAILY TON Administration Omeprazole 40 mg 09/07/20 06:30 09/07/20 05:47 Omeprazole 40 Mg Capsule.Dr PO 40 mg DAILY@0630 TON Administration Ondansetron HCl 4 mg 09/06/20 17:54 Ondansetron Hcl 4 Mg/2 Ml Vial IVPUSH Q8H PRN Nausea and Vomiting Oxybutynin Chloride 10 mg 09/07/20 09:00 09/07/20 08:50 Oxybutynin Chloride Er 5 Mg Tab.Er.24 PO 10 mg DAILY TON Administration Pharmacy Consult 1 each 09/06/20 16:49 Consult Rx Perform Med Rec MISCELLANE ONCE PRN Consult order Pravastatin Sodium 10 mg 09/07/20 22:00 Pravastatin Sodium 10 Mg Tablet PO DAILY@2200 [facility] Sacubitril/Valsartan 1 tab 09/06/20 21:00 09/07/20 08:49 Sacubitril/Valsartan 1 Tab Tablet PO 1 tab BID [facility] Administration Protocol Senna 8.6 mg 09/06/20 17:54 Sennosides 8.6 Mg Tablet PO BEDTIME PRN constipation Sodium Chloride 3 ml 09/07/20 00:00 09/07/20 08:50 0.9 % Sodium Chloride Flush 3 Ml Syringe IVFLUSH 3 ml QSHIFT [facility] Administration Time Spent With Patient Time: Total time spent is greater than 50% in coordination of care (as documented) at patient's floor/unit and/or counseling patient: Time with patient: less than 15 minutes Procedures Date of Service Date of Service: 09/07/20 Quality Stroke Does the patient have a stroke diagnosis?: No VTE Prior VTE?: No VTE Risk Level:: Medical - moderate - high VTE Device Contraindication: Treatment Not Indicated VTE Drug Contraindication: N/A - Med Ordered
[2020-09-07] MEDS: cefTRIAXone sodium 1 GM in 0.9 % Sodium Chloride 50 ML IV (14:33)
--- NOTE | 2020-09-07 15:27 | P.PNIM_ITS ---
Subjective Subjective Date of Service: 09/07/20 Interval History: feeling better this morning no shortness of breath at rest but complain of shortness of breath with exertion, not on home oxygen, denies fever chills no other acute issues overnight. General no headache no dizziness no fever chills. CVS no chest pain, no palpitation. Gastrointestinal no nausea no vomiting, no abdominal pain no urinary frequency, no urgency Physical Exam Vital Signs: Vital Signs: Last Vital Signs Temp 98.2 F 09/07/20 12:00 Pulse 81 09/07/20 15:11 Resp 20 09/07/20 12:00 BP 125/73 09/07/20 12:00 Pulse Ox 95 09/07/20 12:00 Oxygen Flow Rate 2 09/06/20 12:48 Body Mass Index 24.6 General patient resting comfortably in no acute distress. Neck supple no JVD. CVS regular rate rhythm, Respiratory lungs rhonchi,no respiratory distress, no wheeze, Gastrointestinal abdomen soft, nontender, bowel sounds audible, no guarding , no rigidity. Extremities no clubbing cyanosis or edema. Neuro nonfocal , speech clear. Skin no rash Objective Data Current Medications Generic Name Dose Route Start Last Admin Trade Name Freq PRN Reason Stop Dose Admin Acetaminophen 650 mg 09/06/20 17:54 Acetaminophen 325 Mg Tablet PO Q6H PRN Pain, Mild (Pain Scale 1-3) Albuterol/Ipratropium 3 ml 09/06/20 20:00 09/07/20 15:09 Albuterol/Iprat 2.5/0.5mg 3 Ml Ampul.Neb INHALE 3 ml RQ4H WHILE AWAKE TON Administration Carvedilol 6.25 mg 09/06/20 21:00 09/07/20 08:49 Carvedilol 6.25 Mg Tablet PO 6.25 mg BID TON Administration Protocol Guaifenesin/Dextromethorphan 10 ml 09/06/20 20:00 09/07/20 14:33 Guaifenesin Dm 200/20/10 Ml 10 Ml Syrup PO 10 ml Q6H OTN Administration Heparin Sodium (Porcine) 5,000 unit 09/06/20 21:00 09/07/20 08:50 Heparin Sodium,Porcine 5,000 Unit/Ml Vial SUBCUT 5,000 unit Q12H TON Administration Azithromycin 500 mg/ Sodium 250 mls @ 125 mls/hr 09/07/20 15:00 Chloride IV Q24H TON Ceftriaxone Sodium 1 gm/ 50 mls @ 100 mls/hr 09/07/20 15:00 09/07/20 14:33 Sodium Chloride IV 100 mls/hr Q24H TON Administration Latanoprost 1 drop 09/06/20 21:00 09/06/20 22:15 Latanoprost 0.005 % Ophth Thalia 2.5 Ml Drops EYE-BOTH 1 drop BEDTIME TON Administration Methylprednisolone Sodium Succinate 40 mg 09/06/20 21:00 09/07/20 08:50 Methylprednisolone Sod Succ 40 Mg/Ml Vial IVPUSH 40 mg Q12H TON Administration Mirabegron 25 mg 09/07/20 09:00 09/07/20 08:49 Mirabegron 25 Mg Tab.Er.24h PO 25 mg DAILY TON Administration Omeprazole 40 mg 09/07/20 06:30 09/07/20 05:47 Omeprazole 40 Mg Capsule.Dr PO 40 mg DAILY@0630 [facility] Administration Ondansetron HCl 4 mg 09/06/20 17:54 Ondansetron Hcl 4 Mg/2 Ml Vial IVPUSH Q8H PRN Nausea and Vomiting Oxybutynin Chloride 10 mg 09/07/20 09:00 09/07/20 08:50 Oxybutynin Chloride Er 5 Mg Tab.Er.24 PO 10 mg DAILY [facility] Administration Pharmacy Consult 1 each 09/06/20 16:49 Consult Rx Perform Med Rec MISCELLANE ONCE PRN Consult order Pravastatin Sodium 10 mg 09/07/20 22:00 Pravastatin Sodium 10 Mg Tablet PO DAILY@2200 [facility] Sacubitril/Valsartan 1 tab 09/06/20 21:00 09/07/20 08:49 Sacubitril/Valsartan 1 Tab Tablet PO 1 tab BID [facility] Administration Protocol Senna 8.6 mg 09/06/20 17:54 Sennosides 8.6 Mg Tablet PO BEDTIME PRN constipation Sodium Chloride 3 ml 09/07/20 00:00 09/07/20 14:34 0.9 % Sodium Chloride Flush 3 Ml Syringe IVFLUSH 3 ml QSHIFT [facility] Administration Labs CBC & Chem 7: 09/07/20 06:10 09/07/20 06:10 Labs: Laboratory Results - last 24 hr 09/07/20 09/07/20 06:10 06:10 WBC 13.3 H RBC 5.68 Hgb 16.8 Hct 51.3 MCV 90.3 MCH 29.6 MCHC 32.7 RDW 13.3 Plt Count 269 MPV 9.9 Immature Gran % (Auto) 0.4 Neut % (Auto) 94.0 H Lymph % (Auto) 4.5 L [place] % (Auto) 1.0 L Eos % (Auto) 0.0 Baso % (Auto) 0.1 Lymph # (Auto) 0.6 L [place] # (Auto) 0.1 Eos # (Auto) 0.0 Baso # (Auto) 0.0 Abs Immat Gran (auto) 0.05 H Absolute Neuts (auto) 12.5 H Absolute Nucleated RBC 0.000 Nucleated RBC % (auto) 0.0 Smear Tech's Comments VERIFIED Sodium 140 Potassium 4.3 Chloride 105 Carbon Dioxide 25 Anion Gap 14 BUN 17 H D Creatinine 0.78 Estim Creat Clear Calc 67.8 Estimated GFR > 60 Random Glucose 157 H Calcium 9.0 Quality Stroke Does the patient have a stroke diagnosis?: No VTE Prior VTE?: No VTE Risk Level:: Medical - moderate - high VTE Device Contraindication: Treatment Not Indicated VTE Drug Contraindication: N/A - Med Ordered Assessment and Plan (1) Pneumothorax: Status: Acute (2) COPD (chronic obstructive pulmonary disease): Status: Acute (3) Bronchiectasis: Status: Acute (4) Pure hypercholesterolemia: Status: Acute (5) GERD (gastroesophageal reflux disease): Status: Acute (6) Essential hypertension: Status: Acute Assessment and Plan: 80-year-old Khmer-speaking man who is being admitted with new onset pneumothorax secondary to history of bronchiectasis, underlying emphysema and bullous disease. 1. Pneumothorax secondary to underlying cystic/ bullous lung disease no worsening symptoms of shortness of breath or cough will continue treatment with IV antibiotics, updraft treatment and IV antibiotics, repeat chest x-ray remains stable, patient being followed by thorac ic surgery and they recommend to repeat chest x-ray at a.m should patient's respiratory status decompensate or his pneumothorax increased in size will consult interventional radiology for image guided pigtail placement. 2. acute exacerbation of bronchiectasis/COPD, patient's symptoms of shortness of breath and cough are improving, continue current treatment with DuoNeb Q 4 hour, IV steroids 40 mg q.12 hours and IV ceftriaxone and azithromycin day 2, will encourage ambulation gradually wean oxygen since patient is not on home O2, continue incentive spirometery CT scan of the chest showed worsening baseline disease with new soft tissue opacification with small air-fluid level in a cyst or cavity in the right upper lobe measuring approximately 2 x 2.5 cm along with a previously seen 1.8 cm right upper lobe nodule that appears unchanged from previous chest CT scan. patient seen by Dr. Weeks this a.m. he agrees with above treatment will recommend outpatient follow-up with pulmonology 3. Gastroesophageal reflux disease. Continue proton pump inhibitor. 4. Leukocytosis, likely secondary to steroids and infection. 5. history of congestive heart failure with preserved EF continue home medications no acute exacerbation noted. 6. Deep venous thrombosis prophylaxis with heparin. 7. Full code.
[2020-09-07] MEDS: Azithromycin 500 MG in 0.9 % Sodium Chloride 250 ML 125 MG IV (15:57)
--- NOTE | 2020-09-07 20:28 | CONS_ITS ---
DATE OF SERVICE: 09/07/2020 HISTORY OF PRESENT ILLNESS: This 80-year-old Yakut-speaking gentleman has been admitted since yesterday through the emergency room with chief complaint of increased shortness of breath and cough for about 3 to 4 days. He had no fever, chills, or chest pain. He had no hemoptysis, but the cough is productive of yellowish type of phlegm. He has chronic cough, but now somewhat worse in the last few days. His CT scan of the chest as well as chest x-ray showed chronic bronchiectasis with somewhat worsening of the alveolar densities and also a small pneumothorax in the right apical area. PAST MEDICAL HISTORY: He has multiple comorbidities. 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 His previous bronchial washings have grown MAC organisms, and he has been treated for JESSA with a combination of azithromycin, rifampin, and ethambutol for about 8 months. Now, he stays on doxycycline 100 mg 3 times a week in addition to prednisone 5 mg a day and DuoNeb updrafts q.i.d. It should be noted that a chest x-ray in March of 2020 did not show the pneumothorax in right apex. In addition to his chronic pulmonary disease, he also has hypertension, GERD, congestive heart failure, and moderate global hypokinesis of the myocardium. PERSONAL HISTORY: Lives alone. He quit smoking 5 years ago. Denies any drinking alcohol. Denies use of any illicit drugs. PHYSICAL EXAMINATION: GENERAL: Reveals a 80-year-old gentleman sitting by the bedside. He appears very comfortable at this time. There is no obvious distress. VITAL SIGNS: Respiratory rate 14, temperature 98 degrees. EAR, NOSE, THROAT: Normal. He did cough up some phlegm, which is yellowish in color, but no blood. NECK: No lymphadenopathy. Trachea midline. No jugular venous distention. CHEST: Percussion note is resonant. Breath sounds are somewhat harsh on both sides with inspiratory crepitations over both lower lobes. CARDIAC: Sounds are distant. Rhythm regular. No murmurs. ABDOMEN: Flat, soft, and nontender. EXTREMITIES: No pitting edema. Peripheral pulses faintly palpable and no evidence of phlebitis. IMAGING: Chest x-ray on 09/06/2020 shows extensive bilateral chronic alveolar disease with patchy nodular airspace densities consistent with his chronic bronchiectasis. There is a walled pneumothorax in the right upper chest. CT scan of the chest confirms the presence of extensive bilateral alveolar densities and chronic airway disease, and in addition, he has somewhat bullous lung disease in the right lung with a small pneumothorax, which is stable. CLINICAL IMPRESSION: 1. Chronic obstructive pulmonary disease. 2. Chronic bronchiectasis. 3. Past history of Mycobacterium avium-intracellulare infection. 4. Bullous lung disease, right side. 5. Pneumothorax, right apex, probably recent, but seemed to be stable and walled. RECOMMENDATIONS: 1. Continue the current antibiotic regimen. 2. DuoNeb updrafts q.4 hours while awake. 3. Oxygen supplementation 2 to 3 L/min to keep O2 saturation above 90%. 4. Solu-Medrol 40 mg IV q.8 hours for 1 or 2 days, then change it to prednisone. 5. Monitor closely the size of pneumothorax. 6. I do not think he needs any intervention for the pneumothorax at this time, but will refer this to the Thoracic Surgery consult. Thank you very much for asking me to see this patient. MD CORAZON Henderson/NESSA / [phone]
[2020-09-07] MEDS: Pravastatin Sodium 10 MG TABLET PO (20:50)
[2020-09-07] MEDS: Latanoprost 0.005 % Ophth Sol 2.5 ML DROPS 1 DROP EYE-BOTH (20:50)
[2020-09-08] MEDS: 0.9 % Sodium Chloride Flush 3 ML SYRINGE IVFLUSH ×2 (00:16→08:11)
[2020-09-08] MEDS: guaiFENesin DM 200/20/10 ML 10 ML SYRUP PO ×2 (01:47→08:10)
[2020-09-08 03:20] VITALS: BP 125/59; PULSE 77; RESP 18; TEMP 36.6; O2SAT 93
[2020-09-08] MEDS: Omeprazole 40 MG CAPSULE.DR PO (06:15)
[2020-09-08 07:16] VITALS: BP 139/66; PULSE 80; RESP 18; TEMP 36.4; O2SAT 93
[2020-09-08] MEDS: Albuterol/Iprat 2.5/0.5MG 3 ML AMPUL.NEB INHALE ×2 (07:35→10:56)
[2020-09-08 07:37] VITALS: PULSE 80; O2SAT 97
[2020-09-08 08:10] VITALS: BP 139/66; PULSE 80
[2020-09-08] MEDS: carvediloL 6.25 MG TABLET PO (08:10)
[2020-09-08] MEDS: Mirabegron 25 MG TAB.ER.24H PO (08:10)
[2020-09-08] MEDS: Sacubitril/Valsartan 24/26 1 TAB TABLET PO (08:10)
[2020-09-08] MEDS: Heparin Sodium,Porcine 5,000 UNIT/ML VIAL 5000 UNIT SUBCUT (08:10)
[2020-09-08] MEDS: methylPREDNISolone Sod Succ 40 MG/ML VIAL IVPUSH (08:11)
--- NOTE | 2020-09-08 10:07 | MHC.CM.PN ---
CM has been informed that Patient receives RN visits through [facility] ([phone]).
[2020-09-08 10:58] VITALS: PULSE 83; O2SAT 98
--- NOTE | 2020-09-08 12:38 | MHC.CM.PN ---
Patient has been medically cleared for dc to home today,[facility] services to resume as before(CM spoke with Sharifa from [facility] @ [phone] and dc summary faxed to [facility] @ [phone]), along with [facility] services.Last IMM addressed on 09/06/20.
--- NOTE | 2020-09-08 12:44 | PM.PNPUL ---
Subjective Subjective Date of Service: 09/08/20 Principal diagnosis: COPD EXCARBATION/ BRONCHIECTASIS Interval history: This 80 years old gentleman is feeling better. sitting up in chair, on room air, shows no respiratory distress. he has been afebrile, denies any chest pain or wheezing. Objective Data Labs CBC & Chem 7: 09/07/20 06:10 09/07/20 06:10 Microbiology Microbiology Results: Microbiology 09/06/20 14:51 Blood - Venous Blood Culture - Preliminary No growth after 24 hours. 09/06/20 14:55 Blood - Venous Blood Culture - Preliminary No growth after 24 hours. Review of Systems Review of Systems Yes all other systems are reviewed and are negative Physical Exam Vital Signs: Vital Signs: Last Vital Signs Temp 97.6 F 09/08/20 07:16 Pulse 83 09/08/20 10:58 Resp 18 09/08/20 07:16 BP 139/66 09/08/20 08:10 Pulse Ox 93 09/08/20 07:16 Oxygen Flow Rate 2 09/06/20 12:48 Body Mass Index 24.6 Const: General: comfortable, no acute distress, alert and awake Orientation/consciousness: patient oriented x3 HENMT: Head: Yes normal to inspection General nose exam: No nasal polyps present and No nasal discharge present Face and sinus: Yes sinuses nontender Mouth: oropharynx normal Throat: Yes posterior oropharynx normal Eyes: General: appearance normal, both eyes and all related structures Neck: Neck: Yes normal visual inspection, Yes no lymphadenopathy, Yes trachea midline and Yes no JVD Thyroid: Thyroid normal Chest: Chest palpation & inspection: normal inspection of the chest, normal palpation of entire chest wall and no tenderness Resp: Effort & Inspection: prolonged expiratory phase Auscultation: crackles (inspiratory creps over bases and Rt lower lobe) and diminished lung sounds Cardio: Palpation: normal PMI Rate: regular rate Rhythm: regular rhythm Heart sounds: no gallops and no murmurs GI: Palpation (GI): Soft to palpation, nontender, No hepatosplenomegaly present and no masses Auscultation: normal bowel sounds Back/Spine/Pelvis: Thoracic/Lumbar Spine: thoracic and lumbar spine normal to inspection Skin: General skin exam: no rashes or lesions noted Neuro: General: patient oriented x3 and no focal motor deficits Cranial nerves: Yes CN's II-XII intact bilaterally Extrem: General: Yes normal to inspection, Yes no clubbing, cyanosis or edema, Yes no calf tenderness and Yes venous stasis dermatitis Psych: Speech and movement: Normal speech and movement present Procedures Date of Service Date of Service: 09/08/20 Assessment and Plan Assessment and plan (1) Pneumothorax: Problem details: small, right upper chest, staying very stable. does not need any says intervention at this time Status: Acute (2) COPD (chronic obstructive pulmonary disease): Problem details: COPD exacerbation is improved. Okay to switch his IV Solu-Medrol to prednisone 40 mg a day for next 5 days. Ccontinue DuoNeb updrafts Q 6 hours while awake. may switch his antibiotics to oral form and complete for 1 more week. Status: Acute (3) Bronchiectasis: Problem details: He has extensive bronchiectasis and this is a chronic problem. treatment as under COPD Status: Acute (4) JESSA (mycobacterium avium-intracellulare): Problem details: past history and has been previously treated with triple antibiotics. currently in -active. Status: Acute Time Spent With Patient Time: Total time spent is greater than 50% in coordination of care (as documented) at patient's floor/unit and/or counseling patient: Time with patient: 15 - 24 minutes Progress Note: Quality Stroke Does the patient have a stroke diagnosis?: No
--- NOTE | 2020-09-08 13:11 | P.DS_ITS ---
DS: Providers Provider Date of Service: 09/08/20 Date of admission: 09/06/20 17:54 Primary care physician: Olga Calzada MD Consults: 09/06/20 15:52 Consult to Thoracic Surgery Stat Consulting Provider: Aquilino Ross Reason for consultation: small right pneumothorax Has provider been notified: Yes 09/06/20 17:54 Consult to Pulmonology Routine Consulting Provider: Brent Duenas Reason for consultation: pneumoThorax, bronchiectases Has provider been notified: No DS: Diagnosis Discharge Diagnosis (1) Pneumothorax: Status: Acute Problem details: small, right upper chest, staying very stable. does not need any says intervention at this time (2) COPD (chronic obstructive pulmonary disease): Status: Acute Problem details: COPD exacerbation is improved. Okay to switch his IV Solu-Medrol to prednisone 40 mg a day for next 5 days. Ccontinue DuoNeb updrafts Q 6 hours while awake. may switch his antibiotics to oral form and complete for 1 more week. (3) Bronchiectasis: Status: Acute Problem details: He has extensive bronchiectasis and this is a chronic problem. treatment as under COPD (4) JESSA (mycobacterium avium-intracellulare): Status: Acute Problem details: past history and has been previously treated with triple antibiotics. currently in -active. DS: Medications Discharge Medications Home Medications: Home Medications Medication Instructions Recorded Confirmed Combigan 1 drp OPHTHALMIC (EYE) BID 09/06/20 09/06/20 doxycycline monohydrate 100 mg PO MOWEFR 09/06/20 09/06/20 latanoprost 1 drp OPHTHALMIC (EYE) BEDTIME 09/06/20 09/06/20 Previous Rx's Medication Instructions Recorded lovastatin 10 mg tablet 10 mg PO DAILY #90 tab 02/10/20 omeprazole 40 mg capsule,delayed 40 mg PO DAILY #90 cap 02/10/20 release sennosides 8.6 mg tablet 8.6 mg PO BEDTIME PRN 30 Days #30 02/23/20 tab ipratropium 0.5 mg-albuterol 3 mg 3 ml INHALATION QID #120 ml 06/18/20 (2.5 mg base)/3 mL nebulization soln oxybutynin chloride 10 mg 10 mg PO DAILY 90 Days #90 tab 07/07/20 tablet,extended release 24 hr carvedilol 6.25 mg tablet 6.25 mg PO BID #180 tab 07/09/20 sacubitril 24 mg-valsartan 26 mg 1 tab PO BID #60 tab 07/20/20 tablet mirabegron 25 mg tablet,extended 25 mg PO DAILY 90 Days #90 tab 08/26/20 release 24 hr albuterol sulfate 90 mcg/actuation 2 puff INHALATION Q4H PRN #8.5 g 09/02/20 aerosol inhaler azithromycin 250 mg PO DAILY #5 tab 09/08/20 cefuroxime axetil 500 mg PO Q12H #10 tab 09/08/20 prednisone 20 mg PO DAILY #30 tab 09/08/20 DS: Summary Hospital Course Hospital Course: history of presenting illness CHIEF COMPLAINT: Cough. HISTORY OF PRESENT ILLNESS: A 80-year-old Stateless-speaking male presenting to the ER with complaint of 4 days of worsening shortness of breath and cough. He denied fever, chills, nausea, vomiting, or diarrhea. When asked, he reported that he has actually had this cough for several months and had followed up with his primary care provider in the past. He reports a history of COPD, and he quit smoking about 5 years ago. A chest CT showed worsening bronchiectasis and airway disease with new small loculated right pneumothorax, greatest at the right lung apex and adjacent to the right cardiophrenic angle. His white blood cell count was elevated at 12.4. Urinalysis negative. COVID-19 negative. He had no fever and all other vital signs were stable. He was treated by a telephone diaphragm assembler in May of 2020, and he was treated for underlying history of bronchiectasis and chronic JESSA. He had been treated with 8 months of azithromycin, rifampin, ethambutol, and had a bronchoscopy with bronchoalveolar lavage that was growing multiple organisms. During his visit, there were no new findings, although he did seem to have an acute exacerbation of bronchiectasis and was treated with steroids and antibiotics. He was given azithromycin, ceftriaxone, albuterol while in the ER. He will be admitted for further management and treatment of acute pneumothorax secondary to bronchiectasis. PAST MEDICAL HISTORY: 1. Congestive heart failure with EF of 35% to 40%, normal RV systolic pressure, normal left ventricular wall thickness, left ventricular systolic function moderately decreased with moderate global hypokinesis. 2. Hypertension. 3. GERD. 4. Glaucoma. 5. Hernia. 6. History of MAC infection. 7. Hyperlipidemia. 8. Bronchiectasis. 9. Treatment for JESSA. 10. Hernia. 11. Nonischemic cardiomyopathy. PAST SURGICAL HISTORY: 1. Cystoscopy. 2. Lumbar surgery. 3. Rectal polypectomy. Hospital course 80-year-old Stateless-speaking man admitted with new onset pneumothorax likely secondary to underlying cystic/ bullous lung disease, serial chest x-ray showed no worsening of small pneumothorax patient had no worsening symptoms of shortness of breath or cough therefore he has been recommended to have close outpatient follow-up with telephone diaphragm assembler, he is prone to have pneumothorax due to underlying bullous lung disease, patient also treated for acute exacerbation of bronchiectasis and COPD with updraft treatment, IV steroids and IV ceftriaxone and azithromycin, patient responded well to above treatment therefore is being discharged home to finish a total 7 day course of antibiotics patient is on baseline prednisone 5 mg daily that has been increased to 20 mg daily followed by 10 mg daily for total 10 days and then recommend to continue 5 mg daily, CT scan of the chest showed worsening baseline disease with new soft tissue opacification with small air-fluid level in the right upper lobe measuring approximately 2 x 2.5 cm along with a previously seen 1.8 cm right upper lobe nodule that appears unchanged from previous chest CT scan, recommend close outpatient follow-up with pulmonology. patient with baseline history of congestive heart failure with preserved EF noted to have no acute CHF exacerbation Time Spent with Patient Time attestation: Total time spent providing and/or coordinating discharge services: Discharge coordination time: Greater than 30 minutes Quality: Stroke Does the patient have a stroke diagnosis?: No Physical Exam Vital Signs: Vital Signs: Last Vital Signs Temp 97.6 F 09/08/20 07:16 Pulse 83 09/08/20 10:58 Resp 18 09/08/20 07:16 BP 139/66 09/08/20 08:10 Pulse Ox 93 09/08/20 07:16 Oxygen Flow Rate 2 09/06/20 12:48 Body Mass Index 24.6 General patient resting comfortably in no acute distress. Neck supple no JVD. CVS regular rate rhythm, Respiratory lungs clear,no respiratory distress, no wheeze, Gastrointestinal abdomen soft, nontender, bowel sounds audible, no guarding , no rigidity. Extremities no clubbing cyanosis or edema. Neuro nonfocal , speech clear. Skin no rash DS: Data Data Completed and Pending Labs on day of discharge: Preliminary micro results at discharge 09/06/20 14:51 Blood Culture - Preliminary Blood - Venous No growth after 24 hours. 09/06/20 14:55 Blood Culture - Preliminary Blood - Venous No growth after 24 hours. Discharge Plan Discharge Patient Disposition: Home Health Service Discharge Diagnosis: pneumothorax acute exacerbation of bronchiectasis /COPD Referrals: RANDI HUFFMAN [Other] - 1 Week Olga North MD [Primary Care Provider] - 1 Week Discharge Medications: New cefuroxime axetil 500 mg tablet 500 mg PO Q12H Qty: 10 RF: 0 azithromycin 250 mg tablet 250 mg PO DAILY Qty: 5 RF: 0 prednisone 20 mg tablet 20 mg PO DAILY Qty: 30 RF: 0 Continued sennosides [senna] 8.6 mg tablet 8.6 mg PO BEDTIME PRN (Reason: constipation) 30 Days Qty: 30 RF: 0 ipratropium-albuterol 0.5 mg-3 mg(2.5 mg base)/3 mL solution for nebulization 3 ml inhalation QID Qty: 120 RF: 11 carvedilol 6.25 mg tablet 6.25 mg PO BID Qty: 180 RF: 0 Myrbetriq 25 mg tablet extended release 24 hr 25 mg PO DAILY 90 Days Qty: 90 RF: 0 albuterol sulfate 90 mcg/actuation HFA aerosol inhaler 2 puff inhalation Q4H PRN (Reason: shortness of breath or wheezing) Qty: 8.5 RF: 4 latanoprost 0.005 % drops 1 drp ophthalmic (eye) BEDTIME RF: 0 Combigan 0.2-0.5 % drops 1 drp ophthalmic (eye) BID RF: 0 doxycycline monohydrate 100 mg capsule 100 mg PO MOWEFR RF: 0 lovastatin 10 mg tablet 10 mg PO DAILY Qty: 90 RF: 3 omeprazole 40 mg capsule,delayed release(DR/EC) 40 mg PO DAILY Qty: 90 RF: 3 oxybutynin chloride 10 mg tablet extended release 24hr 10 mg PO DAILY 90 Days Qty: 90 RF: 0 Entresto 24-26 mg tablet 1 tab PO BID Qty: 60 RF: 5 Discontinued prednisone 5 mg tablet 5 mg PO DAILY RF: 0 Discharge Orders: Discharge Order (Routine); Ordered 09/08/20 Ordered By: Wilian Zelaya Diet: advance to usual diet Activity on Discharge: As tolerated Stand Alone Forms: Patient Portal Discharge page Care Plan Goals: you have been diagnosed to have exacerbation of COPD/and bronchiectasis and small pneumonthorax Health Concerns: take all prior medications as before, dose of prednisone has been increased to 20 mg for 5 days then 10 mg daily for 5 days and then continue 5 mg daily at your home dose, return to check with any worsening symptoms of shortness of breath, chest pain, lightheadedness or dizziness Plan of Treatment: outpatient follow-up with primary care physician in 1 week and with your p ulmonologist Dr. Duenas in 1 week Assessment: as above
== END 2020-09-08 14:00 | disposition home health service (06) | DRG 191 ==
LOC: HO.ED 14:14 → HO.EDOVER 18:13 → HO.IMC 18:50
PROVIDERS: Physician Assistant; Admitting Provider Nurse Practitioner Acute Care; Emergency Provider Emergency Medicine Emergency Medical Services; PCP Internal Medicine; Visit Provider Hospitalist
DX: J43.9 Emphysema, unspecified (principal); J47.1 Bronchiectasis with (acute) exacerbation; J93.9 Pneumothorax, unspecified; A31.0 Pulmonary mycobacterial infection; I10 Essential (primary) hypertension; Z20.822 Contact with and (suspected) exposure to COVID-19; Z87.891 Personal history of nicotine dependence; Z79.899 Other long term (current) drug therapy
CPT/HCPCS: 36415; 71045; 71250; 80048; 80053; 81001; 81003; 83605; 83880; 84484; 85025; 87040; 87635; 93005; 94640; 99285; J0456; J0696; J2920; J2930; J3475

== ENCOUNTER → 2020-09-14 14:42 | Outpatient (BNVA) | payer MEDICARE, MEDICAID, SELFPAY | PROVIDERS: PCP Internal Medicine; Visit Provider Internal Medicine Pulmonary Disease | DX: J47.9 Bronchiectasis, uncomplicated (principal); A31.0 Pulmonary mycobacterial infection | CPT/HCPCS: 99212 ==

== ENCOUNTER 2020-10-04 10:49 | Inpatient (IN) | payer MEDICARE, MEDICAID, SELFPAY ==
[2020-10-04] VITALS (11 sets, daily range): BP systolic 138–189; BP diastolic 74–114; PULSE 86–95; RESP 12–35; TEMP 36.9–37.7; O2SAT 92–98; BMI 23.3
--- NOTE | ~2020-10-04 | XR_ITS ---
EXAMINATION: XR CHEST CLINICAL INFORMATION: Cough and SOB. COMPARISON: Chest 09/08/2020. TECHNIQUE: Frontal view of the chest was obtained. FINDINGS: The lungs are somewhat expanded diffuse scattered opacities in both lungs and increase interstitial markings similar to previous study 09/08/2020. The large right apical bulla. Previously seen pneumothorax appears improved or resolved. Mild tenting of the right hemidiaphragm suggestive of scarring right lung base slightly more prominent than last study. Heart size and pulmonary vascularity is normal. There are multiple left 7th, 8th and 9th posterior rib fractures. XR/XR chest 1V IMPRESSION: Chronic interstitial and patchy parenchymal changes throughout both lungs. The the right apical pneumothorax appears resolved. There is a right apical and upper lobe bullous changes. There is new mild tenting of the right hemidiaphragm. Old left posterior rib fractures are stable.
--- NOTE | 2020-10-04 11:36 | PC.NURSE ---
After pt ambulating about 300ft from waiting area to room he was tachypnic, sats 86% on room air. After a couple min sats returned to 90% on RA. Pt placed on 2liters NC with sats increasing to 97%
--- NOTE | 2020-10-04 11:39 | ECG_ITS ---
Test Reason : SEPSIS Blood Pressure : / mmHG Vent. Rate : 088 BPM Atrial Rate : 088 BPM P-R Int : 136 ms QRS Dur : 126 ms QT Int : 394 ms P-R-T Axes : 062 -49 -02 degrees QTc Int : 476 ms Normal sinus rhythm Right bundle branch block Left anterior fascicular block Bifascicular block Abnormal ECG When compared with ECG of 06-SEP-2020 13:29, No significant change was found Referred By: Generic ED Physician Electronically Signed By:BEATRIS PERALTA
[2020-10-04 12:16] LABS: MANUAL DIFF FLAG NO
--- NOTE | 2020-10-04 12:22 | ED_ITS ---
HPI - URI/Sore Throat General Chief Complaint: Upper Respiratory Symptoms Stated Complaint: diff breathing Time Seen by Provider: 10/04/20 12:22 Source: patient Mode of arrival: ambulatory Limitations: no limitations History of Present Illness HPI Narrative: cough, phlegm, a lot of fatigue. Patient finished his vaccine 4months ago. Patient states he has a history of pneumonia. No fever no vomiting but has nausea. When patient was walked in his oxygen sat was 86% MD elicited complaint: cough Pertinent past history: pneumonia Onset (ago): day(s) Consistency: constant Severity: moderate Description of mucous: yellow Able to tolerate fluids by mouth: Yes Associated symptoms: vomiting Related Data Home Medications Medication Instructions Recorded Confirmed Combigan 1 drp OPHTHALMIC (EYE) BID 09/06/20 10/04/20 doxycycline monohydrate 100 mg PO MOWEFR 09/06/20 10/04/20 latanoprost 1 drp OPHTHALMIC (EYE) BEDTIME 09/06/20 10/04/20 omega [id number] oil [Fish Oil] 1 cap PO DAILY 10/04/20 10/04/20 prednisone 2 tab PO DAILY 10/04/20 10/04/20 Previous Rx's Medication Instructions Recorded lovastatin 10 mg tablet 10 mg PO DAILY #90 tab 02/10/20 omeprazole 40 mg capsule,delayed 40 mg PO DAILY #90 cap 02/10/20 release ipratropium 0.5 mg-albuterol 3 mg 3 ml INHALATION QID #120 ml 06/18/20 (2.5 mg base)/3 mL nebulization soln sacubitril 24 mg-valsartan 26 mg 1 tab PO BID #60 tab 07/20/20 tablet mirabegron 25 mg tablet,extended 25 mg PO DAILY 90 Days #90 tab 08/26/20 release 24 hr albuterol sulfate 90 mcg/actuation 2 puff INHALATION Q4H PRN #8.5 g 09/02/20 aerosol inhaler carvedilol 6.25 mg tablet 6.25 mg PO BID #180 tab 09/27/20 losartan 25 mg tablet 25 mg PO DAILY 90 Days #90 tab 09/27/20 oxybutynin chloride 10 mg 10 mg PO DAILY 90 Days #90 tab 09/27/20 tablet,extended release 24 hr Allergies Allergy/AdvReac Type Severity Reaction Status Date / Time Penicillins [PENICILLINS] Allergy Intermediate PASSED Verified 09/14/20 14:46 OUT trazodone Allergy Intermediate tremors Verified 09/14/20 14:46 Review of Systems Constitutional: Constitutional: Reports no additional constitutional compla ints Eyes: Eyes: Reports no additional eye complaints ENT: Denies dizziness Cardiovascular: Cardiovascular: Reports no additional cardiovascular complaints Respiratory: Respiratory: Reports as per HPI Gastrointestinal: Gastrointestinal: Reports no additional gastrointestinal complaints Musculoskeletal: Musculoskeletal: Reports no additional musculoskeletal complaints Integumentary/Breasts: Skin/Breast: Denies rash Neurologic: Reports system reviewed and no additional complaints, except as documented, Denies dizziness and Denies Sensory deficit (Neuro) Psychiatric: Psychiatric: Denies anxiety [facility] Past Medical History Medical History Bronchiectasis Congestive heart failure COPD (chronic obstructive pulmonary disease) Essential hypertension GERD (gastroesophageal reflux disease) Glaucoma Hernia History of MAC infection JESSA (mycobacterium avium-intracellulare) Medicare annual wellness visit, initial NICM (nonischemic cardiomyopathy) Pure hypercholesterolemia Surgical History History of cystoscopy History of lumbar surgery History of rectal polypectomy Family History Family History Father No problems noted. Mother Medical history unknown Sister Diabetes Daughter In good health Son In good health Brother No problems noted. Social History Social History Household Members: None Housing: Apartment Do you presently have visiting nurse or other home services: Yes Alcohol intake: never Patient Tobacco Use Status: Never used Tobacco Use of substances other than those prescribed or required for medical reasons: No Advance Directives: Yes Advance Directives Information Provided: Yes Advance Directives on File: No service: No Current occupational status: retired Physical Exam Vital Signs: Vital Signs: Last Vital Signs Temp 99.8 F 10/04/20 11:31 Pulse 95 10/04/20 16:23 Resp 25 H 10/04/20 15:29 BP 138/74 10/04/20 15:29 Pulse Ox 97 10/04/20 15:29 Oxygen Flow Rate 2 10/04/20 11:34 Body Mass Index 23.3 Const: Other: elerly male short of breath coughing Nutritional Appearance: average body habitus Orientation/consciousness: oriented to person and patient oriented x3 Limitations: no limitations HENMT: Head: Yes normal to inspection Ears: external ears normal General nose exam: Normal external nose present Mouth: Normal oral and palatal mucosa present and oropharynx normal Throat: Yes posterior oropharynx normal Eyes: General: appearance normal, both eyes and all related structures Neck: Other: supple Neck: Yes normal visual inspection Chest: Chest palpation & inspection: normal inspection of the chest Resp: Other: diffuse wheezing and rhonchi Cardio: Jugular venous distension: no JVD Rate: regular rate Rhythm: regular rhythm Heart sounds: S1 normal heart sound present and S2 normal heart sound present GI: Inspection: Yes normal to inspection Palpation (GI): Soft to palpation, nontender and No hepatosplenomegaly present Auscultation: normal bowel sounds : General: Yes no CVA tenderness Back/Spine/Pelvis: Back: no CVA tenderness Skin: General skin exam: no rashes or lesions noted Neuro: General: oriented to person and patient oriented x3 Cranial nerves: Yes CN's II-XII intact bilaterally Motor exam (neuro): 5/5 motor strength present throughout Sensory Exam: No Sensory deficit (Neuro) Extrem: General: Yes normal to inspection Psych: Appearance: grossly normal Course Reevaluation(s) Reevaluation #1: Patient coughing up thick yellow sputum, he was given IV Azithromycin. He is improved interms of his wheezing but still requiring oxygen. He was bolused with steroids. Will admit for COPD exacerbation Time: 15:13 MDM - URI/Sore Throat Lab Data Result diagrams: 10/04/20 12:10 10/04/20 12:10 Labs: Lab Results 10/04/20 10/04/20 10/04/20 Range/Units 12:10 12:10 12:10 WBC 11.8 H (4.8-10.8) X10*3/uL RBC 5.37 (4.60-5.80) X10*6/uL Hgb 15.6 (14.0-18.0) g/dl Hct 48.0 (42-52) % MCV 89.4 (80-98) fL MCH 29.1 (27.0-33.0) pg MCHC 32.5 (31.0-36.0) g/dl RDW 13.3 (11.0-16.0) % Plt Count 199 D (160-400) X10*3/uL MPV 9.3 L (9.4-12.4) fL Immature Gran % (Auto) 0.3 (0.0-0.4) % Neut % (Auto) 78.7 H (45-73) % Lymph % (Auto) 6.9 L (20-40) % [place] % (Auto) 9.4 (2-11) % Eos % (Auto) 4.4 H (0-4) % Baso % (Auto) 0.3 (0-2) % Lymph # (Auto) 0.8 L (1.2-4.9) X10*3/uL [place] # (Auto) 1.1 (0.1-1.2) X10*3/uL Eos # (Auto) 0.5 H (0.0-0.4) X10*3/uL Baso # (Auto) 0.0 (0.0-0.2) X10*3/uL Abs Immat Gran (auto) 0.04 H (0.00-0.03) X10*3/uL Absolute Neuts (auto) 9.3 H (2.0-8.3) X10*3/uL Absolute Nucleated RBC 0.000 (0.0-0.012) X10*3/uL Nucleated RBC % (auto) 0.0 (0.0-0.2) /100WBC Sodium 139 (135-145) mmol/L Potassium 3.8 (3.3-5.1) mmol/L Chloride 105 (96-108) mmol/L Carbon Dioxide 27 (22-29) mmol/L Anion Gap 11 L (12-20) BUN 9 (9-16) mg/dL Creatinine 0.68 (0.5-1.4) mg/dL Estim Creat Clear Calc 83.7 Estimated GFR > 60 Random Glucose 117 H (60-115) mg/dL Lactic Acid 0.8 (0.5-2.0) mmol/L Calcium 8.5 (8.4-10.2) mg/dL Troponin I High Sens (<3.5-35.0) ng/L B-Natriuretic Peptide (<100) pg/mL Procalcitonin ng/mL Urine Color Urine Appearance Urine pH (5.0-8.0) Ur Specific [place] (1.005-1.025) Urine Protein (NEG-TRACE) MG/DL Urine Glucose (UA) (NEG) MG/DL Urine Ketones (NEG) MG/DL Urine Blood (NEG) Urine Nitrite (NEG) Ur Leukocyte Esterase (NEG) Urine RBC (0) /HPF Urine WBC (0-4) /HPF Ur Squamous Epith Cells /LPF Urine Bacteria /LPF Coronavirus (PCR) (Negative) Influenza Type A (PCR) (Negative) Influenza Type B (PCR) (Negative) RSV RNA Qual (PCR) (Negative) 10/04/20 10/04/20 10/04/20 Range/Units 12:10 12:10 12:10 WBC (4.8-10.8) X10*3/uL RBC (4.60-5.80) X10*6/uL Hgb (14.0-18.0) g/dl Hct (42-52) % MCV (80-98) fL MCH (27.0-33.0) pg MCHC (31.0-36.0) g/dl RDW (11.0-16.0) % Plt Count (160-400) X10*3/uL MPV (9.4-12.4) fL Immature Gran % (Auto) (0.0-0.4) % Neut % (Auto) (45-73) % Lymph % (Auto) (20-40) % [place] % (Auto) (2-11) % Eos % (Auto) (0-4) % Baso % (Auto) (0-2) % Lymph # (Auto) (1.2-4.9) X10*3/uL [place] # (Auto) (0.1-1.2) X10*3/uL Eos # (Auto) (0.0-0.4) X10*3/uL Baso # (Auto) (0.0-0.2) X10*3/uL Abs Immat Gran (auto) (0.00-0.03) X10*3/uL Absolute Neuts (auto) (2.0-8.3) X10*3/uL Absolute Nucleated RBC (0.0-0.012) X10*3/uL Nucleated RBC % (auto) (0.0-0.2) /100WBC Sodium (135-145) mmol/L Potassium (3.3-5.1) mmol/L Chloride (96-108) mmol/L Carbon Dioxide (22-29) mmol/L Anion Gap (12-20) BUN (9-16) mg/dL Creatinine (0.5-1.4) mg/dL Estim Creat Clear Calc Estimated GFR Random Glucose (60-115) mg/dL Lactic Acid (0.5-2.0) mmol/L Calcium (8.4-10.2) mg/dL Troponin I High Sens 5.7 (<3.5-35.0) ng/L B-Natriuretic Peptide 25 (<100) pg/mL Procalcitonin 0.03 ng/mL Urine Color Urine Appearance Urine pH (5.0-8.0) Ur Specific [place] (1.005-1.025) Urine Protein (NEG-TRACE) MG/DL Urine Glucose (UA) (NEG) MG/DL Urine Ketones (NEG) MG/DL Urine Blood (NEG) Urine Nitrite (NEG) Ur Leukocyte Esterase (NEG) Urine RBC (0) /HPF Urine WBC (0-4) /HPF Ur Squamous Epith Cells /LPF Urine Bacteria /LPF Coronavirus (PCR) NEGATIVE (Negative) Influenza Type A (PCR) NEGATIVE (Negative) Influenza Type B (PCR) NEGATIVE (Negative) RSV RNA Qual (PCR) NEGATIVE (Negative) 10/04/20 Range/Units 14:20 WBC (4.8-10.8) X10*3/uL RBC (4.60-5.80) X10*6/uL Hgb (14.0-18.0) g/dl Hct (42-52) % MCV (80-98) fL MCH (27.0-33.0) pg MCHC (31.0-36.0) g/dl RDW (11.0-16.0) % Plt Count (160-400) X10*3/uL MPV (9.4-12.4) fL Immature Gran % (Auto) (0.0-0.4) % Neut % (Auto) (45-73) % Lymph % (Auto) (20-40) % [place] % (Auto) (2-11) % Eos % (Auto) (0-4) % Baso % (Auto) (0-2) % Lymph # (Auto) (1.2-4.9) X10*3/uL [place] # (Auto) (0.1-1.2) X10*3/uL Eos # (Auto) (0.0-0.4) X10*3/uL Baso # (Auto) (0.0-0.2) X10*3/uL Abs Immat Gran (auto) (0.00-0.03) X10*3/uL Absolute Neuts (auto) (2.0-8.3) X10*3/uL Absolute Nucleated RBC (0.0-0.012) X10*3/uL Nucleated RBC % (auto) (0.0-0.2) /100WBC Sodium (135-145) mmol/L Potassium (3.3-5.1) mmol/L Chloride (96-108) mmol/L Carbon Dioxide (22-29) mmol/L Anion Gap (12-20) BUN (9-16) mg/dL Creatinine (0.5-1.4) mg/dL Estim Creat Clear Calc Estimated GFR Random Glucose (60-115) mg/dL Lactic Acid (0.5-2.0) mmol/L Calcium (8.4-10.2) mg/dL Troponin I High Sens (<3.5-35.0) ng/L B-Natriuretic Peptide (<100) pg/mL Procalcitonin ng/mL Urine Color YELLOW Urine Appearance HAZY Urine pH 7.5 (5.0-8.0) Ur Specific [place] 1.020 (1.005-1.025) Urine Protein TRACE (NEG-TRACE) MG/DL Urine Glucose (UA) 100 H (NEG) MG/DL Urine Ketones NEG (NEG) MG/DL Urine Blood 3+ H (NEG) Urine Nitrite NEG (NEG) Ur Leukocyte Esterase NEG (NEG) Urine RBC 30-49 H (0) /HPF Urine WBC 0-2 (0-4) /HPF Ur Squamous Epith Cells TRACE /LPF Urine Bacteria NONE /LPF Coronavirus (PCR) (Negative) Influenza Type A (PCR) (Negative) Influenza Type B (PCR) (Negative) RSV RNA Qual (PCR) (Negative) ECG Data Attestation: I personally reviewed and interpreted this ECG as follows: Interpretation: sinus RBBB, no st or twave changes Discharge Plan Discharge Clinical Impression: COPD exacerbation, Bronchitis, Hypoxia Patient Disposition: Admitted As Inpatient
[2020-10-04 12:24] LABS: Basophils Percent Auto 0.3 % (0-2); Eosinophils Absolute Auto 0.5 X10*3/uL (0.0-0.4); Eosinophils Percent Auto 4.4 % (0-4); Hemoglobin 15.6 g/dl (14.0-18.0); Imm Gran Abs Auto 0.04 X10*3/uL (0.00-0.03); Imm Gran Pct Auto 0.3 % (0.0-0.4); Lymphocytes Absolute Auto 0.8 X10*3/uL (1.2-4.9); Lymphocytes Percent Auto 6.9 % (20-40); Mean Corpuscular HGB Conc 32.5 g/dl (31.0-36.0); Mean Corpuscular Hemoglobin 29.1 pg (27.0-33.0); Mean Corpuscular Volume 89.4 fL (80-98); Mean Platelet Volume 9.3 fL (9.4-12.4); Monocytes Absolute Auto 1.1 X10*3/uL (0.1-1.2); Monocytes Percent Auto 9.4 % (2-11); Neutrophils Absolute Auto 9.3 X10*3/uL (2.0-8.3); Neutrophils Percent Auto 78.7 % (45-73); Platelet Count 199 X10*3/uL (160-400); Red Blood Count 5.37 X10*6/uL (4.60-5.80); Red Cell Distribution Width 13.3 % (11.0-16.0); White Blood Count 11.8 X10*3/uL (4.8-10.8)
[2020-10-04 12:36] LABS: Lactic Acid 0.8 mmol/L (0.5-2.0)
[2020-10-04 12:39] LABS: Anion Gap 11 (12-20); Blood Urea Nitrogen 9 mg/dL (9-16); Calcium 8.5 mg/dL (8.4-10.2); Carbon Dioxide 27 mmol/L (22-29); Chloride 105 mmol/L (96-108); Creatinine Clr Calc Pharmacy 83.7; Estimated Glomerular Filt Rate > 60; Glucose Random 117 mg/dL (60-115); Potassium 3.8 mmol/L (3.3-5.1); Sodium 139 mmol/L (135-145)
[2020-10-04] MEDS: Albuterol/Iprat 2.5/0.5MG 3 ML AMPUL.NEB INHALE ×3 (12:40→20:37)
[2020-10-04 12:45] LABS: B Type Natriuretic Peptide 25 pg/mL (<100); Troponin-I High Sensitivity 5.7 ng/L (<3.5-35.0)
[2020-10-04 12:59] LABS: Influenza A PCR NEGATIVE (Negative); Influenza B PCR NEGATIVE (Negative); Resp Syncy Virus RNA Qual PCR NEGATIVE (Negative); SARS COV2 PCR INHOUSE NEGATIVE (Negative)
[2020-10-04] MEDS: Azithromycin 500 MG in 0.9 % Sodium Chloride 250 ML 125 MG IV (12:59)
[2020-10-04] MEDS: methylPREDNISolone Sod Succ 125 MG/2 ML VIAL IVPUSH (12:59)
[2020-10-04 14:40] LABS: Glucose Urine UA 100 MG/DL (NEG); Leukocyte Esterase Urine NEG (NEG); Nitrite Urine NEG (NEG); PH 7.5 (5.0-8.0); Urine Blood 3+ (NEG); Urine Ketones NEG (NEG); Urine Protein TRACE MG/DL (NEG-TRACE)
[2020-10-04 14:48] LABS: Appearance Urine HAZY; Color Urine YELLOW
--- NOTE | 2020-10-04 15:30 | PC.NURSE ---
Pt reports feeling a little better at this time. VS remain stable. Plan is for admission
[2020-10-04 15:32] LABS: RBC Urine 30-49 /HPF (0); Squamous Epithelial Cell Urine TRACE /LPF; WBC Urine 0-2 /HPF (0-4)
--- NOTE | 2020-10-04 15:54 | PHA.MEDREC ---
Pharmacy Consult ? Medication Reconciliation Pharmacy has completed the medication reconciliation. There are no remarkable issues for provider's attention. Hilda Valadez, LenkaD
[2020-10-04 16:31] LABS: Procalcitonin 0.03 ng/mL
[2020-10-04] MEDS: methylPREDNISolone Sod Succ 40 MG/ML VIAL IVPUSH (17:01)
--- NOTE | 2020-10-04 17:34 | PM.IMHP ---
History of Present Illness Date of Service: 10/04/20 Chief Complaint: wheeze, cough, sputum History taken in Mongolian from the patient. Mr Herman is a 80-year old man with chronic bronchiectasis, COPD/chronic bronchitis, and history of JESSA treated with 8 months of azithromycin, rifampin, and ethambutol. He also has a history of a small right apical PTX that was managed conservatively. He is not on home O2. He is chronically on 10 mg/d of prednisone and doxycycline 100 mg tiw. He completed COVID vaccination 4 months ago. Medical history also notable for NICM/CHF for which he sees Dr Byers and recently was switched from losartan to Entresto. He presents today with a 1-week history of worsening cough productive of thick, yellow sputum associated with wheezing but not much dyspnea. No cough. No chest pain. No hemoptysis. No sick contacts. In the ED, he was tachypneic, tachycardic, and mildly hypoxic. CXR showed chronic interstitial and parenchymal changes, resolution of the R apical PTX, R upper lobe bullous changes, but no acute pneumonia. He was given a Duoneb, IV Solu-Medrol, and IV azithromycin. He says he feels better at this point. Review of Systems Review of Systems: Yes all other systems are reviewed and are negative [facility] Medical History Bronchiectasis Congestive heart failure COPD (chronic obstructive pulmonary disease) Essential hypertension GERD (gastroesophageal reflux disease) Glaucoma Hernia History of MAC infection JESSA (mycobacterium avium-intracellulare) Medicare annual wellness visit, initial NICM (nonischemic cardiomyopathy) Pure hypercholesterolemia Family History Father No problems noted. Mother Medical history unknown Sister Diabetes Daughter In good health Son In good health Brother No problems noted. Surgical History History of cystoscopy History of lumbar surgery History of rectal polypectomy Social History Household Members: None Housing: Apartment Do you presently have visiting nurse or other home services: Yes Alcohol intake: never Patient Tobacco Use Status: Never used Tobacco Use of substances other than those prescribed or required for medical reasons: No Advance Directives: Yes Advance Directives Information Provided: Yes Advance Directives on File: No service: No Current occupational status: retired Meds Allergies Allergy/AdvReac Type Severity Reaction Status Date / Time Penicillins [PENICILLINS] Allergy Intermediate PASSED Verified 09/14/20 14:46 OUT trazodone Allergy Intermediate tremors Verified 09/14/20 14:46 Active Medications: Current Medications Generic Name Dose Route Start Last Admin Trade Name Freq PRN Reason Stop Dose Admin Albuterol Sulfate 2.5 mg 10/04/20 15:36 Albuterol Sulfate (0.083%) 2.5 Mg/3 Ml Vial.Neb INHALE Q2H PRN shortness of breath/wheeze Albuterol/Ipratropium 3 ml 10/04/20 16:00 10/04/20 16:22 Albuterol/Iprat 2.5/0.5mg 3 Ml Ampul.Neb INHALE 3 ml RQ4H WHILE AWAKE TON Administration Carvedilol 6.25 mg 10/04/20 21:00 Carvedilol 6.25 Mg Tablet PO BID [facility] Protocol Doxycycline Hyclate 100 mg 10/04/20 16:16 10/04/20 17:01 Doxycycline Hyclate 100 Mg Tablet PO 100 mg MOWEFR TON Administration Latanoprost 1 drop 10/04/20 21:00 Latanoprost 0.005 % Ophth Thalia 2.5 Ml Drops EYE-BOTH BEDTIME [facility] Methylprednisolone Sodium Succinate 40 mg 10/04/20 16:00 10/04/20 17:01 Methylprednisolone Sod Succ 40 Mg/Ml Vial IVPUSH 40 mg Q12H TON Administration Mirabegron 25 mg 10/05/20 09:00 Mirabegron 25 Mg Tab.Er.24h PO DAILY [facility] Omeprazole 40 mg 10/05/20 09:00 Omeprazole 40 Mg Capsule.Dr PO DAILY [facility] Oxybutynin Chloride 10 mg 10/05/20 09:00 Oxybutynin Chloride Er 5 Mg Tab.Er.24 PO DAILY [facility] Pharmacy Consult 1 each 10/04/20 15:19 Consult Rx Perform Med Rec MISCELLANE ONCE PRN Consult order Sacubitril/Valsartan 1 tab 10/04/20 21:00 Sacubitril/Valsartan 1 Tab Tablet PO BID [facility] Protocol Home Medications Medication Instructions Recorded Confirmed Last Taken Type Combigan 1 drp OPHTHALMIC (EYE) BID 09/06/20 10/04/20 10/03/20 History doxycycline monohydrate 100 mg PO MOWEFR 09/06/20 10/04/20 10/03/20 History latanoprost 1 drp OPHTHALMIC (EYE) BEDTIME 09/06/20 10/04/20 10/03/20 History omega 5-luw-fbu-fish oil [Fish Oil] 1 cap PO DAILY 10/04/20 10/04/20 10/03/20 History prednisone 2 tab PO DAILY 10/04/20 10/04/20 10/03/20 History Physical Exam Vital Signs and Narrative: Vital Signs: Last Vital Signs Temp 99.8 F 10/04/20 11:31 Pulse 90 10/04/20 16:58 Resp 16 10/04/20 16:58 BP 146/85 H 10/04/20 16:58 Pulse Ox 98 10/04/20 16:58 Oxygen Flow Rate 2 10/04/20 11:34 Body Mass Index 23.3 Gen: in no acute distress HEENT: sclera anicteric, moist mucus membranes Neck: supple Lungs:scattered bilateral iinspiratory crackles, soft expiratory wheezes Heart: regular rate and rhythm, no murmurs Abd: soft, non-tender, non-distended Ext: no edema Skin: warm/well-perfused Neuro: alert and oriented x3, no focal findings Psych: appropriate affect Results Labs CBC and Chem 7: 10/04/20 12:10 10/04/20 12:10 Labs: Laboratory Results - last 24 hr 10/04/20 10/04/20 10/04/20 12:10 12:10 12:10 MCV 89.4 MCH 29.1 MCHC 32.5 RDW 13.3 Plt Count 199 D MPV 9.3 L Immature Gran % (Auto) 0.3 Neut % (Auto) 78.7 H Lymph % (Auto) 6.9 L Sebastian % (Auto) 9.4 Eos % (Auto) 4.4 H Baso % (Auto) 0.3 Lymph # (Auto) 0.8 L Sebastian # (Auto) 1.1 Eos # (Auto) 0.5 H Baso # (Auto) 0.0 Abs Immat Gran (auto) 0.04 H Absolute Neuts (auto) 9.3 H Absolute Nucleated RBC 0.000 Nucleated RBC % (auto) 0.0 Anion Gap 11 L Estim Creat Clear Calc 83.7 Estimated GFR > 60 Random Glucose 117 H Lactic Acid 0.8 Calcium 8.5 Troponin I High Sens B-Natriuretic Peptide Procalcitonin Urine Color Urine Appearance Urine pH Ur Specific [place] Urine Protein Urine Glucose (UA) Urine Ketones Urine Blood Urine Nitrite Ur Leukocyte Esterase Urine RBC Urine WBC Ur Squamous Epith Cells Urine Bacteria Coronavirus (PCR) Influenza Type A (PCR) Influenza Type B (PCR) RSV RNA Qual (PCR) 10/04/20 10/04/20 10/04/20 12:10 12:10 12:10 MCV MCH MCHC RDW Plt Count MPV Immature Gran % (Auto) Neut % (Auto) Lymph % (Auto) Sebastian % (Auto) Eos % (Auto) Baso % (Auto) Lymph # (Auto) Sebastian # (Auto) Eos # (Auto) Baso # (Auto) Abs Immat Gran (auto) Absolute Neuts (auto) Absolute Nucleated RBC Nucleated RBC % (auto) Anion Gap Estim Creat Clear Calc Estimated GFR Random Glucose Lactic Acid Calcium Troponin I High Sens 5.7 B-Natriuretic Peptide 25 Procalcitonin 0.03 Urine Color Urine Appearance Urine pH Ur Specific [place] Urine Protein Urine Glucose (UA) Urine Ketones Urine Blood Urine Nitrite Ur Leukocyte Esterase Urine RBC Urine WBC Ur Squamous Epith Cells Urine Bacteria Coronavirus (PCR) NEGATIVE Influenza Type A (PCR) NEGATIVE Influenza Type B (PCR) NEGATIVE RSV RNA Qual (PCR) NEGATIVE 10/04/20 14:20 MCV MCH MCHC RDW Plt Count MPV Immature Gran % (Auto) Neut % (Auto) Lymph % (Auto) Sebastian % (Auto) Eos % (Auto) Baso % (Auto) Lymph # (Auto) Sebastian # (Auto) Eos # (Auto) Baso # (Auto) Abs Immat Gran (auto) Absolute Neuts (auto) Absolute Nucleated RBC Nucleated RBC % (auto) Anion Gap Estim Creat Clear Calc Estimated GFR Random Glucose Lactic Acid Calcium Troponin I High Sens B-Natriuretic Peptide Procalcitonin Urine Color YELLOW Urine Appearance HAZY Urine pH 7.5 Ur Specific [place] 1.020 Urine Protein TRACE Urine Glucose (UA) 100 H Urine Ketones NEG Urine Blood 3+ H Urine Nitrite NEG Ur Leukocyte Esterase NEG Urine RBC 30-49 H Urine WBC 0-2 Ur Squamous Epith Cells TRACE Urine Bacteria NONE Coronavirus (PCR) Influenza Type A (PCR) Influenza Type B (PCR) RSV RNA Qual (PCR) Imaging Radiologist's Impressions: Impressions Chest X-Ray 10/04/20 11:55 IMPRESSION: Chronic interstitial and patchy parenchymal changes throughout both lungs. The the right apical pneumothorax appears resolved. There is a right apical and upper lobe bullous changes. There is new mild tenting of the right hemidiaphragm. Old left posterior rib fractures are stable. Assessment and Plan (1) COPD exacerbation: Status: Acute 80-year old man with steroid-dependent chronic bronchiectasis, COPD/chronic bronchitis, history of JESSA treated for 8 months, history of R apical PTX presenting with 1 wk of worsening productive cough with wheezing, found to be hypoxic. # acute exacerbation of COPD/bronchiectasis - admit to IMC, give IV methylprednisolone + IV levofloxacin, send sputum cultures, standing/prn nebs, Pulmonology consultation # acute hypoxic respiratory failure - supplemental O2, wean as tolerated # NICM # CHF - does not appear to be fluid overloaded. continue home regimen: Entresto, carvedilol # VTE ppx - LMWH # code - full Quality Stroke Does the patient have a stroke diagnosis?: No VTE Prior VTE?: No VTE Risk Level:: Medical - moderate - high VTE Device Contraindication: N/A - Device Ordered VTE Drug Contraindication: N/A - Med Ordered
[2020-10-04] MEDS: levoFLOXacin/D5W 500 MG/100 ML PIGGYBACK 100 MG IV (18:46)
[2020-10-04] MEDS: Enoxaparin Sodium 40 MG/0.4 ML SYRINGE SUBCUT (18:46)
--- NOTE | 2020-10-04 21:25 | MHC.CM.PN ---
Addendum entered by Vicky Escobar 10/04/20 21:33: Upon review of medical record, pt receives services from [facility] NATHANAEL Skaggs ([phone]). Original Note: CM met with admitted pt. pending bed assignment with medical affairs director as pt. is Persian speaking only. IMM reviewed and signed per protocol 10/04/20@2110. HCP is on file in [employer], not in [employer], but pt does not want Yao Herman Jr. to be his HCP. Pt does not want to complete another, as he does not know who he would like. Family lives in [facility]. Pt lives alone. Pt states he has [employer] services 1 hour, M-F and a visiting nurse weekly for medication management. Pt is unsure what company provides services. D/C plan is home with continued services. Pt states he will drive himself home. CM explained that we normally do not want patients to drive themselves home, but pt states he has done this before. CM will follow for d/c needs.
[2020-10-05] VITALS (13 sets, daily range): BP systolic 115–168; BP diastolic 66–92; PULSE 70–94; RESP 17–20; TEMP 36.4–37; O2SAT 94–100; BMI 24.3
[2020-10-05] MEDS: Sacubitril/Valsartan 24/26 1 TAB TABLET PO ×3 (01:57→21:14)
[2020-10-05] MEDS: carvediloL 6.25 MG TABLET PO ×3 (01:57→21:15)
[2020-10-05] MEDS: 0.9 % Sodium Chloride Flush 3 ML SYRINGE IVFLUSH ×3 (01:59→16:16)
--- NOTE | 2020-10-05 01:59 | PC.NURSE ---
Pt medicated with 2100 medications per primary RN's request. Pt denies the presence of pain or discomfort at this time, aware of plan for admission and awaiting bed assignment. Pt reporting bed is not long enough for him and this RN assisted with providing verbal instructions for repositioning. pt with call yin in reach
[2020-10-05] MEDS: methylPREDNISolone Sod Succ 40 MG/ML VIAL IVPUSH ×2 (04:38→16:16)
[2020-10-05 07:23] LABS: Hematocrit 47.6 % (42-52); Hemoglobin 15.6 g/dl (14.0-18.0); Mean Corpuscular HGB Conc 32.8 g/dl (31.0-36.0); Mean Corpuscular Hemoglobin 29.2 pg (27.0-33.0); Mean Corpuscular Volume 89.1 fL (80-98); Mean Platelet Volume 9.8 fL (9.4-12.4); Platelet Count 188 X10*3/uL (160-400); Red Blood Count 5.34 X10*6/uL (4.60-5.80)
[2020-10-05 07:47] LABS: Anion Gap 12 (12-20); Blood Urea Nitrogen 14 mg/dL (9-16); Calcium 8.5 mg/dL (8.4-10.2); Carbon Dioxide 25 mmol/L (22-29); Chloride 105 mmol/L (96-108); Creatinine Clr Calc Pharmacy 86.2; Estimated Glomerular Filt Rate > 60; Glucose Random 153 mg/dL (60-115); Potassium 4.2 mmol/L (3.3-5.1); Sodium 138 mmol/L (135-145)
[2020-10-05] MEDS: Mirabegron 25 MG TAB.ER.24H PO (10:17)
[2020-10-05] MEDS: Omeprazole 40 MG CAPSULE.DR PO (10:18)
[2020-10-05] MEDS: Albuterol/Iprat 2.5/0.5MG 3 ML AMPUL.NEB INHALE ×3 (11:59→20:43)
--- NOTE | 2020-10-05 11:59 | P.CONPL_ITS ---
History of Present Illness History of Present Illness Consult date: 10/05/20 Chief complaint: COPD exacerbation Narrative: Mr Herman is a 80-year old man with chronic bronchiectasis, COPD/ chronic bronchitis, and history of JESSA treated with 8 months of azithromycin, rifampin, and ethambutol. He also has a history of a small right apical PTX that was managed conservatively. He presents today with a 1-week history of worsening cough productive of thick, yellow sputum associated with wheezing but not much dyspnea. No cough. No chest pain. No hemoptysis. No sick contacts. In the ED, he was tachypneic, tachycardic, and mildly hypoxic. CXR showed chronic interstitial and parenchymal changes, resolution of the R apical PTX, R upper lobe bullous changes, but no acute pneumonia. He was given a Duoneb, IV Solu-Medrol, and IV azithromycin. He says he feels better at this point. Review of Systems Constitutional: Constitutional: Denies night sweats ENT: Denies change in voice, Denies lip swelling, Denies mouth pain, Reports nasal congestion, Reports nasal discharge and Denies tongue swelling Cardiovascular: Cardiovascular: Denies chest pain and Reports dyspnea Respiratory: Respiratory: Reports chest congestion, Reports cough, Denies hemoptysis, Reports dyspnea and Reports wheezing Gastrointestinal: Gastrointestinal: Denies abdominal pain Musculoskeletal: Musculoskeletal: Denies no additional musculoskeletal complaints Neurologic: Denies Neuro-related abnormal movements Psychiatric: Psychiatric: Denies no additional psychiatric complaints Hematologic/Lymphatic: Hematologic/Lymphatic: Denies easy bleeding and Denies lymphadenopathy Allergic/Immunologic: Allergic/Immunologic: Denies lip swelling, Denies tongue swelling and Reports wheezing PMFSH Past Medical History Medical History (Updated 10/05/20 @ 12:12 by Yao Lopez MD) Bronchiectasis Congestive heart failure COPD (chronic obstructive pulmonary disease) Essential hypertension GERD (gastroesophageal reflux disease) Glaucoma Hernia History of MAC infection JESSA (mycobacterium avium-intracellulare) Medicare annual wellness visit, initial NICM (nonischemic cardiomyopathy) Pure hypercholesterolemia Family History Family History Father No problems noted. Mother Medical history unknown Sister Diabetes Daughter In good health Son In good health Brother No problems noted. Surgical History Surgical History History of cystoscopy History of lumbar surgery History of rectal polypectomy Social History Social History Household Members: None Housing: Apartment Do you presently have visiting nurse or other home services: Yes Alcohol intake: never Patient Tobacco Use Status: Never used Tobacco service: No Current occupational status: retired Meds Allergies Allergy/AdvReac Type Severity Reaction Status Date / Time Penicillins [PENICILLINS] Allergy Intermediate PASSED Verified 09/14/20 14:46 OUT trazodone Allergy Intermediate tremors Verified 09/14/20 14:46 Active Medications: Current Medications Generic Name Dose Route Start Last Admin Trade Name Freq PRN Reason Stop Dose Admin Acetaminophen 650 mg 10/04/20 17:34 Acetaminophen 325 Mg Tablet PO Q6H PRN fever or mild pain Albuterol Sulfate 2.5 mg 10/04/20 15:36 Albuterol Sulfate (0.083%) 2.5 Mg/3 Ml Vial.Neb INHALE Q2H PRN shortness of breath/wheeze Albuterol/Ipratropium 3 ml 10/04/20 16:00 10/05/20 09:35 Albuterol/Iprat 2.5/0.5mg 3 Ml Ampul.Neb INHALE Not Given RQ4H WHILE AWAKE TON Carvedilol 6.25 mg 10/04/20 21:00 10/05/20 10:18 Carvedilol 6.25 Mg Tablet PO 6.25 mg BID TON Administration Protocol Doxycycline Hyclate 100 mg 10/04/20 16:16 10/04/20 17:01 Doxycycline Hyclate 100 Mg Tablet PO 100 mg MOWEFR TON Administration Enoxaparin Sodium 40 mg 10/04/20 18:00 10/04/20 18:46 Enoxaparin Sodium 40 Mg/0.4 Ml Syringe SUBCUT 40 mg Q24H TON Administration Levofloxacin 500 mg in 100 mls @ 100 mls/hr 10/04/20 18:00 10/04/20 19:46 Levaquin IV Infused Q24H TON Infusion Latanoprost 1 drop 10/04/20 21:00 10/05/20 02:00 Latanoprost 0.005 % Ophth Thalia 2.5 Ml Drops EYE-BOTH Not Given BEDTIME TON Methylprednisolone Sodium Succinate 40 mg 10/04/20 16:00 10/05/20 04:38 Methylprednisolone Sod Succ 40 Mg/Ml Vial IVPUSH 40 mg Q12H TON Administration Mirabegron 25 mg 10/05/20 09:00 10/05/20 10:17 Mirabegron 25 Mg Tab.Er.24h PO 25 mg DAILY TON Administration Omeprazole 40 mg 10/05/20 09:00 10/05/20 10:18 Omeprazole 40 Mg Capsule.Dr PO 40 mg DAILY TON Administration Ondansetron HCl 4 mg 10/04/20 17:34 Ondansetron Hcl 4 Mg/2 Ml Vial IVPUSH Q8H PRN nausea/vomting Oxybutynin Chloride 10 mg 10/05/20 09:00 10/05/20 10:17 Oxybutynin Chloride Er 5 Mg Tab.Er.24 PO 10 mg DAILY TON Administration Pharmacy Consult 1 each 10/04/20 15:19 Consult Rx Perform Med Rec MISCELLANE ONCE PRN Consult order Sacubitril/Valsartan 1 tab 10/04/20 21:00 10/05/20 10:17 Sacubitril/Valsartan 1 Tab Tablet PO 1 tab BID TON Administration Protocol Sodium Chloride 3 ml 10/05/20 00:00 10/05/20 08:08 0.9 % Sodium Chloride Flush 3 Ml Syringe IVFLUSH 3 ml QSHIFT TON Administration Home Medications Medication Instructions Recorded Confirmed Last Taken Type Combigan 1 drp OPHTHALMIC (EYE) BID 09/06/20 10/04/20 10/03/20 History doxycycline monohydrate 100 mg PO MOWEFR 09/06/20 10/04/20 10/03/20 History latanoprost 1 drp OPHTHALMIC (EYE) BEDTIME 09/06/20 10/04/20 10/03/20 History omega 9-npu-ieb-fish oil [Fish Oil] 1 cap PO DAILY 10/04/20 10/04/20 10/03/20 History prednisone 2 tab PO DAILY 10/04/20 10/04/20 10/03/20 History Physical Exam Vital Signs: Vital Signs: Last Vital Signs Temp 97.5 F 10/05/20 09:37 Pulse 94 10/05/20 09:37 Resp 17 10/05/20 08:07 BP 168/92 H 10/05/20 10:18 Pulse Ox 94 10/05/20 09:37 Oxygen Flow Rate 2 10/04/20 11:34 Body Mass Index 23.3 Const: General: alert Neck: Neck: Yes normal visual inspection, Yes full ROM and Yes no lymphadenopathy Chest: Chest palpation & inspection: normal inspection of the chest Resp: Auscultation: diminished lung sounds Cardio: Rate: regular rate Rhythm: regular rhythm Heart sounds: S1 normal heart sound present and S2 normal heart sound present GI: Palpation (GI): Soft to palpation and nontender Auscultation: normal bowel sounds Skin: General skin exam: rashes and/or lesions noted Results Laboratory Findings CBC and BMP: 10/05/20 06:54 10/05/20 06:54 Abnormal lab findings: Abnormal Labs 10/04/20 10/04/20 10/04/20 12:10 12:10 14:20 WBC 11.8 H MPV 9.3 L Neut % (Auto) 78.7 H Lymph % (Auto) 6.9 L Eos % (Auto) 4.4 H Lymph # (Auto) 0.8 L Eos # (Auto) 0.5 H Abs Immat Gran (auto) 0.04 H Absolute Neuts (auto) 9.3 H Anion Gap 11 L Random Glucose 117 H Urine Glucose (UA) 100 H Urine Blood 3+ H Urine RBC 30-49 H 10/05/20 10/05/20 06:54 06:54 WBC 12.0 H MPV Neut % (Auto) Lymph % (Auto) Eos % (Auto) Lymph # (Auto) Eos # (Auto) Abs Immat Gran (auto) Absolute Neuts (auto) Anion Gap Random Glucose 153 H Urine Glucose (UA) Urine Blood Urine RBC Assessment and Plan (1) COPD exacerbation: Status: Acute (2) Bronchitis: Status: Acute (3) JESSA (mycobacterium avium-intracellulare): Status: Inactive (4) Bronchiectasis: Qualifiers: Bronchiectasis type: with acute exacerbation Qualified Code(s): J47.1 - Bronchiectasis with (acute) exacerbation Status: Inactive Continue with Solu-Medrol 40 mg twice a day Continue with antibiotic coverage. Would likely benefit from azithromycin 3 times a week once he is discharged for his underlying bronchiectasis Oxygen supplementation to keep pulse ox above 90% Diuresis as tolerated Patient will need follow-up with Pulmonary upon discharge Procedures Date of Service Date of Service: 10/05/20
--- NOTE | 2020-10-05 14:44 | P.PNIM_ITS ---
Subjective Subjective Date of Service: 10/05/20 Interval History: weaned off O2 cough improved Physical Exam Vital Signs: Vital Signs: Last Vital Signs Temp 97.8 F 10/05/20 12:00 Pulse 77 10/05/20 12:01 Resp 20 10/05/20 12:00 BP 134/70 10/05/20 12:00 Pulse Ox 100 10/05/20 12:00 Oxygen Flow Rate 2 10/04/20 11:34 Body Mass Index 23.3 Gen: in no acute distress HEENT: sclera anicteric, moist mucus membranes Neck: supple Lungs: diminished breath sounds, scattered insp crackles Heart: regular rate and rhythm, no murmurs Abd: soft, non-tender, non-distended Ext: no edema Skin: warm/well-perfused Neuro: alert and oriented x3, no focal findings Psych: appropriate affect Objective Data Current Medications Generic Name Dose Route Start Last Admin Trade Name Freq PRN Reason Stop Dose Admin Acetaminophen 650 mg 10/04/20 17:34 Acetaminophen 325 Mg Tablet PO Q6H PRN fever or mild pain Albuterol Sulfate 2.5 mg 10/04/20 15:36 Albuterol Sulfate (0.083%) 2.5 Mg/3 Ml Vial.Neb INHALE Q2H PRN shortness of breath/wheeze Albuterol/Ipratropium 3 ml 10/04/20 16:00 10/05/20 11:59 Albuterol/Iprat 2.5/0.5mg 3 Ml Ampul.Neb INHALE 3 ml RQ4H WHILE AWAKE TON Administration Carvedilol 6.25 mg 10/04/20 21:00 10/05/20 10:18 Carvedilol 6.25 Mg Tablet PO 6.25 mg BID TON Administration Protocol Doxycycline Hyclate 100 mg 10/04/20 16:16 10/04/20 17:01 Doxycycline Hyclate 100 Mg Tablet PO 100 mg MOWEFR TON Administration Enoxaparin Sodium 40 mg 10/04/20 18:00 10/04/20 18:46 Enoxaparin Sodium 40 Mg/0.4 Ml Syringe SUBCUT 40 mg Q24H TON Administration Levofloxacin 500 mg in 100 mls @ 100 mls/hr 10/04/20 18:00 10/04/20 19:46 Levaquin IV Infused Q24H TON Infusion Latanoprost 1 drop 10/04/20 21:00 10/05/20 02:00 Latanoprost 0.005 % Ophth Thalia 2.5 Ml Drops EYE-BOTH Not Given BEDTIME [facility] Methylprednisolone Sodium Succinate 40 mg 10/04/20 16:00 10/05/20 04:38 Methylprednisolone Sod Succ 40 Mg/Ml Vial IVPUSH 40 mg Q12H TON Administration Mirabegron 25 mg 10/05/20 09:00 10/05/20 10:17 Mirabegron 25 Mg Tab.Er.24h PO 25 mg DAILY TON Administration Omeprazole 40 mg 10/05/20 09:00 10/05/20 10:18 Omeprazole 40 Mg Capsule.Dr PO 40 mg DAILY TON Administration Ondansetron HCl 4 mg 10/04/20 17:34 Ondansetron Hcl 4 Mg/2 Ml Vial IVPUSH Q8H PRN nausea/vomting Oxybutynin Chloride 10 mg 10/05/20 09:00 10/05/20 10:17 Oxybutynin Chloride Er 5 Mg Tab.Er.24 PO 10 mg DAILY [facility] Administration Pharmacy Consult 1 each 10/04/20 15:19 Consult Rx Perform Med Rec MISCELLANE ONCE PRN Consult order Sacubitril/Valsartan 1 tab 10/04/20 21:00 10/05/20 10:17 Sacubitril/Valsartan 1 Tab Tablet PO 1 tab BID [facility] Administration Protocol Sodium Chloride 3 ml 10/05/20 00:00 10/05/20 08:08 0.9 % Sodium Chloride Flush 3 Ml Syringe IVFLUSH 3 ml QSHIFT [facility] Administration Labs CBC & Chem 7: 10/05/20 06:54 10/05/20 06:54 Labs: Laboratory Results - last 24 hr 10/04/20 10/04/20 10/05/20 12:10 14:20 06:54 WBC 12.0 H RBC 5.34 Hgb 15.6 Hct 47.6 MCV 89.1 MCH 29.2 MCHC 32.8 RDW 13.0 Plt Count 188 MPV 9.8 Absolute Nucleated RBC 0.000 Nucleated RBC % (auto) 0.0 Sodium Potassium Chloride Carbon Dioxide Anion Gap BUN Creatinine Estim Creat Clear Calc Estimated GFR Random Glucose Calcium Procalcitonin 0.03 Urine Color YELLOW Urine Appearance HAZY Urine pH 7.5 Ur Specific [place] 1.020 Urine Protein TRACE Urine Glucose (UA) 100 H Urine Ketones NEG Urine Blood 3+ H Urine Nitrite NEG Ur Leukocyte Esterase NEG Urine RBC 30-49 H Urine WBC 0-2 Ur Squamous Epith Cells TRACE Urine Bacteria NONE 10/05/20 06:54 WBC RBC Hgb Hct MCV MCH MCHC RDW Plt Count MPV Absolute Nucleated RBC Nucleated RBC % (auto) Sodium 138 Potassium 4.2 Chloride 105 Carbon Dioxide 25 Anion Gap 12 BUN 14 D Creatinine 0.66 Estim Creat Clear Calc 86.2 Estimated GFR > 60 Random Glucose 153 H Calcium 8.5 Procalcitonin Urine Color Urine Appearance Urine pH Ur Specific [place] Urine Protein Urine Glucose (UA) Urine Ketones Urine Blood Urine Nitrite Ur Leukocyte Esterase Urine RBC Urine WBC Ur Squamous Epith Cells Urine Bacteria Microbiology Microbiology Results: Microbiology 10/04/20 12:10 Blood Culture - Preliminary Blood - Venous No growth after 24 hours. 10/04/20 11:41 Blood Culture - Preliminary Blood - Venous No growth after 24 hours. Assessment and Plan (1) COPD exacerbation: Status: Acute Assessment and Plan: hsopital d#2 80-year old M with steroid-dependent chronic bronchiectasis, COPD/chronic bronchitis, history of JESSA treated for 8 months, history of R apical PTX presenting with 1 wk of worsening productive cough with wheezing found to be hypoxic. # acute exacerbation of COPD/bronchiectasis - Pulm consult appreciated, continue IV methylprednisolone + IV levofloxacin both d#2, send sputum cultures, standing/prn nebs # acute hypoxic respiratory failure - resolved # NICM # CHF - does not appear to be fluid overloaded. continue home regimen: Entresto, carvedilol # VTE ppx - LMWH # dispo - anticipate home with VNA in next 1-2d Quality Stroke Does the patient have a stroke diagnosis?: No VTE Prior VTE?: No VTE Risk Level:: Medical - moderate - high VTE Device Contraindication: N/A - Device Ordered VTE Drug Contraindication: N/A - Med Ordered
[2020-10-05] MEDS: Enoxaparin Sodium 40 MG/0.4 ML SYRINGE SUBCUT (17:27)
[2020-10-05] MEDS: levoFLOXacin/D5W 500 MG/100 ML PIGGYBACK 100 MG IV (17:27)
[2020-10-05] MEDS: Latanoprost 0.005 % Ophth Sol 2.5 ML DROPS 1 DROP EYE-BOTH (21:19)
[2020-10-06] VITALS (10 sets, daily range): BP systolic 118–144; BP diastolic 58–69; PULSE 71–87; RESP 17–20; TEMP 35.5–36.6; O2SAT 89–95
[2020-10-06] MEDS: 0.9 % Sodium Chloride Flush 3 ML SYRINGE IVFLUSH ×3 (01:31→17:05)
[2020-10-06] MEDS: methylPREDNISolone Sod Succ 40 MG/ML VIAL IVPUSH ×2 (04:00→17:05)
[2020-10-06] MEDS: Albuterol/Iprat 2.5/0.5MG 3 ML AMPUL.NEB INHALE ×3 (07:49→15:34)
[2020-10-06] MEDS: Mirabegron 25 MG TAB.ER.24H PO (10:57)
[2020-10-06] MEDS: Sacubitril/Valsartan 24/26 1 TAB TABLET PO (10:58)
[2020-10-06] MEDS: carvediloL 6.25 MG TABLET PO (10:58)
[2020-10-06] MEDS: Omeprazole 40 MG CAPSULE.DR PO (10:58)
--- NOTE | 2020-10-06 14:33 | P.F2F_ITS ---
Service Date Service Date: 10/06/20 Encounter Date of encounter: 10/06/20 Reasons for Services Signs and symptoms assessed: respiratory Reason for custodial: medication management and medication treatment MD Overseeing Care: Olga Calzada Homebound: Leaving the home is medically contraindicated at this time without the asist of a device and/or another person due th the listed conditions above and below. Certification: Based on the above findings, I certify that this patient is confined to the home and needs intermittent custodial care, physical therapy and/or speech therapy, or continues to need occupational therapy. The patient is under my care, and I have initiated the establishment of the plan of care. The patient will be followed by a physician who will periodically review the plan of care.
--- NOTE | 2020-10-06 14:41 | PM.DS ---
DS: Providers Provider Date of Service: 10/06/20 Date of admission: 10/04/20 17:29 Primary care physician: Olga Calzada MD Consults: 10/04/20 15:36 Consult to Pulmonology Routine Consulting Provider: [facility] [place] Pulmonology Services Reason for consultation: COPD DS: Diagnosis Discharge Diagnosis (1) COPD exacerbation: Status: Acute (2) Bronchiectasis with (acute) exacerbation: Status: Acute (3) Acute respiratory failure with hypoxia: Status: Acute DS: Medications Discharge Medications Home Medications: Home Medications Medication Instructions Recorded Confirmed brimonidine 0.2 %-timolol 0.5 % 1 drp OPHTHALMIC (EYE) BID 09/06/20 10/04/20 eye drops (Combigan) doxycycline monohydrate 100 mg 100 mg PO MOWEFR 09/06/20 10/04/20 capsule latanoprost 0.005 % eye drops 1 drp OPHTHALMIC (EYE) BEDTIME 09/06/20 10/04/20 omega 3-nya-yjl-fish oil 60 mg-90 1 cap PO DAILY 10/04/20 10/04/20 mg-500 mg capsule (Fish Oil) Previous Rx's Medication Instructions Recorded lovastatin 10 mg tablet 10 mg PO DAILY #90 tab 02/10/20 omeprazole 40 mg capsule,delayed 40 mg PO DAILY #90 cap 02/10/20 release ipratropium 0.5 mg-albuterol 3 mg 3 ml INHALATION QID #120 ml 06/18/20 (2.5 mg base)/3 mL nebulization soln sacubitril 24 mg-valsartan 26 mg 1 tab PO BID #60 tab 07/20/20 tablet (Entresto) mirabegron 25 mg tablet,extended 25 mg PO DAILY 90 Days #90 tab 08/26/20 release 24 hr (Myrbetriq) albuterol sulfate 90 mcg/actuation 2 puff INHALATION Q4H PRN #8.5 g 09/02/20 aerosol inhaler carvedilol 6.25 mg tablet 6.25 mg PO BID #180 tab 09/27/20 oxybutynin chloride 10 mg 10 mg PO DAILY 90 Days #90 tab 09/27/20 tablet,extended release 24 hr levofloxacin 500 mg tablet 500 mg PO DAILY #3 tab 10/06/20 prednisone 10 mg tablet See Rx Instructions .ROUTE 10/06/20 .COMPLEX #40 tab DS: Summary Hospital Course Hospital Course: from my admission history and physical, 10/04/20 Mr Herman is a 80-year old man with chronic bronchiectasis, COPD/chronic bronchitis, and history of JESSA treated with 8 months of azithromycin, rifampin, and ethambutol.? He also has a history of a small right apical PTX that was managed conservatively.? He is not on home O2.? He is chronically on 10 mg/d of prednisone and doxycycline 100 mg tiw.? He completed COVID vaccination 4 months ago.? Medical history also notable for NICM/CHF for which he sees Dr Byers and recently was switched from losartan to Entresto. He presents today with a 1-week history of worsening cough productive of thick, yellow sputum associated with wheezing but not much dyspnea.? No cough.? No chest pain.? No hemoptysis.? No sick contacts.? In the ED, he was tachypneic, tachycardic, and mildly hypoxic.? CXR showed chronic interstitial and parenchymal changes, resolution of the R apical PTX, R upper lobe bullous changes, but no acute pneumonia.? He was given a Duoneb, IV Solu-Medrol, and IV azithromycin.? He says he feels better at this point. The patient was admitted to the [facility] [place] and given IV methylprednisolone and levofloxacicn. His symptoms improved quickly and he was weaned off of oxygen. He did not qualify for home oxygen. He was discharged home to complete 3 more days of levofloxacin and was also prescribed a slow steroid taper. He should follow up with his PCP in 1 week and his instructor programmable controllers in 2 weeks; further tapering of his steroids to be directed by his instructor programmable controllers. VNA services were arranged for disease/medication management. Time Spent with Patient Time attestation: Total time spent providing and/or coordinating discharge services: 35 Discharge coordination time: Greater than 30 minutes Quality: Stroke Does the patient have a stroke diagnosis?: No Physical Exam Vital Signs: Vital Signs: Last Vital Signs Temp 96 F L 10/06/20 11:03 Pulse 72 10/06/20 11:18 Resp 18 10/06/20 11:03 BP 144/69 H 10/06/20 11:03 Pulse Ox 95 10/06/20 11:03 Oxygen Flow Rate 2 10/04/20 11:34 Body Mass Index 24.3 Gen: in no acute distress HEENT: sclera anicteric, moist mucus membranes Neck: supple Lungs: soft exp wheeze at L base; otherwise good air entry Heart: regular rate and rhythm, no murmurs Abd: soft, non-tender, non-distended Ext: no edema Skin: warm/well-perfused Neuro: alert and oriented x3, no focal findings Psych: appropriate affect DS: Data Data Completed and Pending Completed studies during hospitalization [Text1]: Laboratory Results WBC 12.0 X10*3/uL (4.8-10.8) H 10/05/20 06:54 RBC 5.34 X10*6/uL (4.60-5.80) 10/05/20 06:54 Hgb 15.6 g/dl (14.0-18.0) 10/05/20 06:54 Hct 47.6 % (42-52) 10/05/20 06:54 MCV 89.1 fL (80-98) 10/05/20 06:54 MCH 29.2 pg (27.0-33.0) 10/05/20 06:54 MCHC 32.8 g/dl (31.0-36.0) 10/05/20 06:54 RDW 13.0 % (11.0-16.0) 10/05/20 06:54 Plt Count 188 X10*3/uL (160-400) 10/05/20 06:54 MPV 9.8 fL (9.4-12.4) 10/05/20 06:54 Immature Gran % (Auto) 0.3 % (0.0-0.4) 10/04/20 12:10 Neut % (Auto) 78.7 % (45-73) H 10/04/20 12:10 Lymph % (Auto) 6.9 % (20-40) L 10/04/20 12:10 [place] % (Auto) 9.4 % (2-11) 10/04/20 12:10 Eos % (Auto) 4.4 % (0-4) H 10/04/20 12:10 Baso % (Auto) 0.3 % (0-2) 10/04/20 12:10 Lymph # (Auto) 0.8 X10*3/uL (1.2-4.9) L 10/04/20 12:10 [place] # (Auto) 1.1 X10*3/uL (0.1-1.2) 10/04/20 12:10 Eos # (Auto) 0.5 X10*3/uL (0.0-0.4) H 10/04/20 12:10 Baso # (Auto) 0.0 X10*3/uL (0.0-0.2) 10/04/20 12:10 Abs Immat Gran (auto) 0.04 X10*3/uL (0.00-0.03) H 10/04/20 12:10 Absolute Neuts (auto) 9.3 X10*3/uL (2.0-8.3) H 10/04/20 12:10 Absolute Nucleated RBC 0.000 X10*3/uL (0.0-0.012) 10/05/20 06:54 Nucleated RBC % (auto) 0.0 /100WBC (0.0-0.2) 10/05/20 06:54 Sodium 138 mmol/L (135-145) 10/05/20 06:54 Potassium 4.2 mmol/L (3.3-5.1) 10/05/20 06:54 Chloride 105 mmol/L (96-108) 10/05/20 06:54 Carbon Dioxide 25 mmol/L (22-29) 10/05/20 06:54 Anion Gap 12 (12-20) 10/05/20 06:54 BUN 14 mg/dL (9-16) D 10/05/20 06:54 Creatinine 0.66 mg/dL (0.5-1.4) 10/05/20 06:54 Estim Creat Clear Calc 86.2 10/05/20 06:54 Estimated GFR > 60 10/05/20 06:54 Random Glucose 153 mg/dL (60-115) H 10/05/20 06:54 Lactic Acid 0.8 mmol/L (0.5-2.0) 10/04/20 12:10 Calcium 8.5 mg/dL (8.4-10.2) 10/05/20 06:54 Troponin I High Sens 5.7 ng/L (<3.5-35.0) 10/04/20 12:10 B-Natriuretic Peptide 25 pg/mL (<100) 10/04/20 12:10 Procalcitonin 0.03 ng/mL 10/04/20 12:10 Urine Color YELLOW 10/04/20 14:20 Urine Appearance HAZY 10/04/20 14:20 Urine pH 7.5 (5.0-8.0) 10/04/20 14:20 Ur Specific [place] 1.020 (1.005-1.025) 10/04/20 14:20 Urine Protein TRACE MG/DL (NEG-TRACE) 10/04/20 14:20 Urine Glucose (UA) 100 MG/DL (NEG) H 10/04/20 14:20 Urine Ketones NEG MG/DL (NEG) 10/04/20 14:20 Urine Blood 3+ (NEG) H 10/04/20 14:20 Urine Nitrite NEG (NEG) 10/04/20 14:20 Ur Leukocyte Esterase NEG (NEG) 10/04/20 14:20 Urine RBC 30-49 /HPF (0) H 10/04/20 14:20 Urine WBC 0-2 /HPF (0-4) 10/04/20 14:20 Ur Squamous Epith Cells TRACE /LPF 10/04/20 14:20 Urine Bacteria NONE /LPF 10/04/20 14:20 Coronavirus (PCR) NEGATIVE (Negative) 10/04/20 12:10 Influenza Type A (PCR) NEGATIVE (Negative) 10/04/20 12:10 Influenza Type B (PCR) NEGATIVE (Negative) 10/04/20 12:10 RSV RNA Qual (PCR) NEGATIVE (Negative) 10/04/20 12:10 Impressions Chest X-Ray 10/04/20 11:55 IMPRESSION: Chronic interstitial and patchy parenchymal changes throughout both lungs. The the right apical pneumothorax appears resolved. There is a right apical and upper lobe bullous changes. There is new mild tenting of the right hemidiaphragm. Old left posterior rib fractures are stable. Labs on day of discharge: Preliminary micro results at discharge 10/04/20 12:10 Blood Culture - Preliminary Blood - Venous No growth after 48 hours. 10/04/20 11:41 Blood Culture - Preliminary Blood - Venous No growth after 48 hours. 10/05/20 17:34 Sputum Culture - Preliminary Sputum - Expectorated Culture in progress. Discharge Plan Discharge Patient Disposition: Home Health Service Discharge Diagnosis: hypoxia [resolved], COPD/bronchiectasis exacerbation Referrals: [facility] [Other] - 1 Week Brent Duenas MD [Physician] - 1 Week Olga North MD [Primary Care Provider] - 10/13/20 1:00 pm (You have a primary care follow up appointment with Dr. Hensley on October 13 at 1:00 pm. If you need to reschedule, call your doctor's office at [phone].) Discharge Medications: New prednisone 10 mg tablet See Rx Instructions .ROUTE .COMPLEX Qty: 40 RF: 0 levofloxacin 500 mg tablet 500 mg PO DAILY Qty: 3 RF: 0 Continued ipratropium-albuterol 0.5 mg-3 mg(2.5 mg base)/3 mL solution for nebulization 3 ml inhalation QID Qty: 120 RF: 11 Myrbetriq 25 mg tablet extended release 24 hr 25 mg PO DAILY 90 Days Qty: 90 RF: 0 albuterol sulfate 90 mcg/actuation HFA aerosol inhaler 2 puff inhalation Q4H PRN (Reason: shortness of breath or wheezing) Qty: 8.5 RF: 4 oxybutynin chloride 10 mg tablet extended release 24hr 10 mg PO DAILY 90 Days Qty: 90 RF: 1 carvedilol 6.25 mg tablet 6.25 mg PO BID Qty: 180 RF: 1 latanoprost 0.005 % drops 1 drp ophthalmic (eye) BEDTIME RF: 0 Combigan 0.2-0.5 % drops 1 drp ophthalmic (eye) BID RF: 0 doxycycline monohydrate 100 mg capsule 100 mg PO MOWEFR RF: 0 omega 6-jym-gyq-fish oil [Fish Oil] 60-90-500 mg Capsule 1 cap PO DAILY RF: 0 lovastatin 10 mg tablet 10 mg PO DAILY Qty: 90 RF: 3 omeprazole 40 mg capsule,delayed release(DR/EC) 40 mg PO DAILY Qty: 90 RF: 3 Entresto 24-26 mg tablet 1 tab PO BID Qty: 60 RF: 5 Discontinued losartan 25 mg tablet 25 mg PO DAILY 90 Days Qty: 90 RF: 2 prednisone 5 mg tablet 2 tab PO DAILY RF: 0 Discharge Orders: Discharge Order (Routine); Ordered 10/06/20 Ordered By: Massiel Alvarez Diet: advance to usual diet Activity on Discharge: As tolerated Stand Alone Forms: Patient Portal Discharge page Care Plan Goals: improvement in breathing Health Concerns: hypoxia [resolved], COPD/bronchiectasis exacerbation Plan of Treatment: take prednisone taper as follows: 40 mg daily x 4 days 30 mg daily x 4 days 20 mg daily x 4 days 10 mg daily x 4 days further tapering as per your lung doctor, Dr Duenas, whom you should see within 2 weeks take levofloxacin 500 mg daily for 3 more days continue your home medications including nebulizers make sure you have stopped the losartan and that you are taking Entresto instead Assessment: as above Patient Instructions: Bronchiectasis (DC), Chronic Lung Disease and Infection Prevention (DC)
== END 2020-10-06 18:00 | disposition home health service (06) | DRG 190 ==
LOC: HO.ED 15:16 → HO.EDOVER 17:38 → HO.IMC 10-05 07:23
PROVIDERS: Admitting Provider Family Medicine; Emergency Provider Emergency Medicine; PCP Internal Medicine; Visit Provider Family Medicine
DX: J47.1 Bronchiectasis with (acute) exacerbation (principal); J96.01 Acute respiratory failure with hypoxia; I42.8 Other cardiomyopathies; Z20.822 Contact with and (suspected) exposure to COVID-19; Z87.891 Personal history of nicotine dependence; Z79.899 Other long term (current) drug therapy
CPT/HCPCS: 0241U; 11104; 36415; 71045; 80048; 81001; 83605; 83880; 84145; 84484; 85025; 85027; 87040; 87070; 87205; 93005; 94640; 99285; J0456; J1650; J1956; J2405; J2920; J2930

== ENCOUNTER → 2020-10-14 13:31 | Outpatient (BNVA) | payer MEDICARE, MEDICAID, SELFPAY | PROVIDERS: PCP Internal Medicine; Visit Provider Internal Medicine | DX: J47.1 Bronchiectasis with (acute) exacerbation (principal); J44.9 Chronic obstructive pulmonary disease, unspecified; J40 Bronchitis, not specified as acute or chronic | CPT/HCPCS: 99212 ==

== ENCOUNTER 2020-10-15 11:42 | Emergency (ER) | payer MEDICARE, MEDICAID, SELFPAY ==
--- NOTE | ~2020-10-15 | XR_ITS ---
EXAMINATION: XR CHEST CLINICAL INFORMATION: Hemoptysis. COMPARISON: Chest x-ray 10/04/2020 TECHNIQUE: Frontal view of the chest was obtained. FINDINGS: There are chronic patchy parenchymal changes in right upper lobe and lingular segments compared to previous study. There is a chronic right apical pneumothorax which is unchanged since 09/06/2020 chest x-ray.. There is loss of right lung volume with ipsilateral mediastinal cyst. The heart size and great vessels are unremarkable. No gross bony abnormality seen. XR/XR chest 1V IMPRESSION: Chronic bilateral parenchymal changes in right lower lobe and lingular segments have progressed since 09/06/2020 chest x-ray. There is a chronic right apical pneumothorax which appears to be stable. There is loss of right lung volume and ipsilateral mediastinal shift. There is no acute new consolidation or mass seen.
[2020-10-15 11:48] VITALS: BP 161/89; PULSE 94; RESP 20; TEMP 37.2; O2SAT 92; BMI 23.6
[2020-10-15 13:22] LABS: Influenza A PCR NEGATIVE (Negative); Influenza B PCR NEGATIVE (Negative); Resp Syncy Virus RNA Qual PCR NEGATIVE (Negative); SARS COV2 PCR INHOUSE NEGATIVE (Negative)
--- NOTE | 2020-10-15 15:02 | ED_ITS ---
HPI - General Adult General Chief complaint: Upper Respiratory Symptoms Stated complaint: throwing up blood, fatique Time Seen by Provider: 10/15/20 12:47 Source: patient Mode of arrival: ambulatory Limitations: language barrier (Lithuanian speaking, change management manager used) History of Present Illness HPI narrative: 80-year-old male who presents emergency department for evaluation change in the color of his sputum. The patient states that he was coughing up thick brown mucus and now the mucus is red. The patient was recently hospitalized. His discharge diagnosis with COPD exacerbation, bronchiectasis with exacerbation and acute respiratory failure with hypoxia. The patient was discharged home on doxycycline and prednisone. The patient followed up with his farmer vegetable, Dr. Weeks on 10/14/2020. Dr. Weeks recommended that the patient continue taking his doxycycline and finished his prednisone course. The patient states that he was concerned about the color change in his sputum therefore came to the hospital today. He denied fever, chills, chest pain, shortness of breath, abdominal pain, nausea, vomiting, changes bowel movements. He states he does feel short of breath but this is not any worse than his baseline. Related Data Home Medications Medication Instructions Recorded Confirmed brimonidine 0.2 %-timolol 0.5 % 1 drp OPHTHALMIC (EYE) BID 09/06/20 10/07/20 eye drops (Combigan) doxycycline monohydrate 100 mg 100 mg PO MOWEFR 09/06/20 10/07/20 capsule latanoprost 0.005 % eye drops 1 drp OPHTHALMIC (EYE) BEDTIME 09/06/20 10/07/20 omega 8-zja-udo-fish oil 60 mg-90 1 cap PO DAILY 10/04/20 10/07/20 mg-500 mg capsule (Fish Oil) cefuroxime axetil 500 mg tablet 500 mg PO Q12H 10/14/20 losartan 25 mg tablet 25 mg PO DAILY 10/14/20 Previous Rx's Medication Instructions Recorded lovastatin 10 mg tablet 10 mg PO DAILY #90 tab 02/10/20 omeprazole 40 mg capsule,delayed 40 mg PO DAILY #90 cap 02/10/20 release sacubitril 24 mg-valsartan 26 mg 1 tab PO BID #60 tab 07/20/20 tablet (Entresto) mirabegron 25 mg tablet,extended 25 mg PO DAILY 90 Days #90 tab 08/26/20 release 24 hr (Myrbetriq) albuterol sulfate 90 mcg/actuation 2 puff INHALATION Q4H PRN #8.5 g 09/02/20 aerosol inhaler carvedilol 6.25 mg tablet 6.25 mg PO BID #180 tab 09/27/20 oxybutynin chloride 10 mg 10 mg PO DAILY 90 Days #90 tab 09/27/20 tablet,extended release 24 hr levofloxacin 500 mg tablet 500 mg PO DAILY #3 tab 10/06/20 prednisone 10 mg tablet See Rx Instructions .ROUTE 10/06/20 .COMPLEX #40 tab ipratropium 0.5 mg-albuterol 3 mg 3 ml INHALATION QID #120 ml 10/13/20 (2.5 mg base)/3 mL nebulization soln ipratropium 0.5 mg-albuterol 3 mg 3 ml INHALATION QID 30 Days #360 ml 10/14/20 (2.5 mg base)/3 mL nebulization soln levofloxacin 750 mg tablet 750 mg PO DAILY 5 Days #5 tab 10/15/20 Allergies Allergy/AdvReac Type Severity Reaction Status Date / Time Penicillins [PENICILLINS] Allergy Intermediate PASSED Verified 10/15/20 11:54 OUT trazodone Allergy Intermediate tremors Verified 10/15/20 11:54 Review of Systems Review of Systems: Yes all other systems are reviewed and are negative [facility] Past Medical History Medical History Bronchiectasis Bronchitis Bronchitis Congestive heart failure COPD (chronic obstructive pulmonary disease) COPD (chronic obstructive pulmonary disease) COPD exacerbation Essential hypertension GERD (gastroesophageal reflux disease) Glaucoma Hernia History of MAC infection Hypoxia JESSA (mycobacterium avium-intracellulare) Medicare annual wellness visit, initial NICM (nonischemic cardiomyopathy) Pure hypercholesterolemia Surgical History History of cystoscopy History of lumbar surgery History of rectal polypectomy Family History Family History Father No problems noted. Mother Medical history unknown Sister Diabetes Daughter In good health Son In good health Brother No problems noted. Social History Social History Household Members: None Housing: House Do you presently have visiting nurse or other home services: No Alcohol intake: never Patient Tobacco Use Status: Former Tobacco user Quit Date: 6 years ago e-Cigarette/Vaping Use: Never Used Second Hand Smoke Exposure: No Advance Directives: Yes Advance Directives on File: Yes Advance Directives Date on File: 10/05/20 service: No Current occupational status: retired Physical Exam Vital Signs: Vital Signs: Last Vital Signs Temp 98.9 F 10/15/20 11:48 Pulse 94 10/15/20 11:48 Resp 20 10/15/20 11:48 BP 161/89 H 10/15/20 11:48 Pulse Ox 92 10/15/20 11:48 Body Mass Index 23.6 Const: General: cooperative and no acute distress Orie ntation/consciousness: oriented to person and oriented to place Limitations: no limitations HENMT: Head: Yes normal to inspection, Yes normocephalic and Yes atraumatic Ears: external ears normal General nose exam: Normal external nose present Face and sinus: Yes normal facial exam Mouth: Normal oral and palatal mucosa present Throat: Yes posterior oropharynx normal Eyes: General: appearance normal, both eyes and all related structures Pupils: Equal, round and reactive pupils present Neck: Neck: Yes normal visual inspection, Yes no lymphadenopathy, Yes trachea midline and Yes supple Chest: Chest palpation & inspection: normal inspection of the chest and normal palpation of entire chest wall Resp: Effort & Inspection: normal respiratory effort and able to speak in complete sentences Auscultation: clear to auscultation bilaterally Cardio: Rate: regular rate Rhythm: regular rhythm Heart sounds: S1 normal heart sound present, S2 normal heart sound present and no murmurs GI: Inspection: Yes normal to inspection Palpation (GI): Soft to palpation, nontender and no guarding Auscultation: normal bowel sounds : General: Yes no CVA tenderness Back/Spine/Pelvis: Back: no CVA tenderness Skin: General skin exam: no rashes or lesions noted Neuro: General: oriented to person and oriented to place Cranial nerves: Yes CN's II-XII intact bilaterally and Yes Equal, round and reactive pupils present Cognition (Neuro): normal cognition Motor exam (neuro): 5/5 motor strength present throughout Extrem: General: Yes normal to inspection Psych: Appearance: grossly normal Speech and movement: Normal speech and movement present Affect: normal affect Attitude: cooperative Thought process: Normal thought process present Thought content: Normal thought content present Course Course Course Narrative: 80-year-old male history of COPD and bronchiectasis who presents emergency department for evaluation of sputum productive of dark to possibly bloody sputum. Patient was recently hospitalized for COPD exacerbation, exacerbation of bronchiectasis and respiratory failure with hypoxia. Patient has been on doxycycline since being discharged from the hospital with worsening of his sputum production but no increased shortness of breath above his baseline. The patient's chest x-ray is concerning for possible increased bilateral patchy infiltrates on top of chronic infiltrates. The patient's COVID-19 was negative. The patient's influenza and RSV were negative. The patient was advised to stop taking his doxycycline. Patient started on Levaquin 750 mg once a day for 5 days. The patient was given verbal and printed instructions prior to discharge. The patient was advised to follow-up with his PCP in 2 days and to return to the emergency department if his symptoms get worse or if he develops any new symptoms that are concerning to him. Medical Decision Making Lab Data Labs: Lab Results 10/15/20 Range/Units 11:57 Coronavirus (PCR) NEGATIVE (Negative) Influenza Type A (PCR) NEGATIVE (Negative) Influenza Type B (PCR) NEGATIVE (Negative) RSV RNA Qual (PCR) NEGATIVE (Negative) Discharge Plan Discharge Clinical Impression: Bronchiectasis Patient Disposition: Home, Self-Care Instructions: Bronchiectasis (ED) Additional Instructions: At this time, I am concerned that your cough has not gotten better despite being on doxycycline. Your productive cough is most likely caused by a bacterial infection related to your bronchiectasis. It is also possible that you may have early pneumonia. Stop taking doxycycline. You were given Levaquin 750 mg orally here in the emergency department Tomorrow afternoon at 3:00 p.m. take your next dose of Levaquin 500 mg once a day. Take this for 5 days. Follow-up with your doctor in 2 days. Please return to the emergency department if your symptoms get worse or if you develop any symptoms that are concerning to you. Prescriptions: New levofloxacin 750 mg tablet 750 mg PO DAILY 5 Days Qty: 5 RF: 0 No Action Myrbetriq 25 mg tablet extended release 24 hr 25 mg PO DAILY 90 Days Qty: 90 RF: 0 albuterol sulfate 90 mcg/actuation HFA aerosol inhaler 2 puff inhalation Q4H PRN (Reason: shortness of breath or wheezing) Qty: 8.5 RF: 4 oxybutynin chloride 10 mg tablet extended release 24hr 10 mg PO DAILY 90 Days Qty: 90 RF: 1 carvedilol 6.25 mg tablet 6.25 mg PO BID Qty: 180 RF: 1 latanoprost 0.005 % drops 1 drp ophthalmic (eye) BEDTIME RF: 0 Combigan 0.2-0.5 % drops 1 drp ophthalmic (eye) BID RF: 0 doxycycline monohydrate 100 mg capsule 100 mg PO MOWEFR RF: 0 omega 5-yen-vwt-fish oil [Fish Oil] 60-90-500 mg Capsule 1 cap PO DAILY RF: 0 prednisone 10 mg tablet See Rx Instructions .ROUTE .COMPLEX Qty: 40 RF: 0 levofloxacin 500 mg tablet 500 mg PO DAILY Qty: 3 RF: 0 lovastatin 10 mg tablet 10 mg PO DAILY Qty: 90 RF: 3 omeprazole 40 mg capsule,delayed release(DR/EC) 40 mg PO DAILY Qty: 90 RF: 3 ipratropium-albuterol 0.5 mg-3 mg(2.5 mg base)/3 mL solution for nebulization 3 ml inhalation QID Qty: 120 RF: 11 Entresto 24-26 mg tablet 1 tab PO BID Qty: 60 RF: 5 losartan 25 mg tablet 25 mg PO DAILY RF: 0 cefuroxime axetil 500 mg tablet 500 mg PO Q12H RF: 0 ipratropium-albuterol 0.5 mg-3 mg(2.5 mg base)/3 mL solution for nebulization 3 ml inhalation QID 30 Days Qty: 360 RF: 3 Print Language: Lithuanian
== END 2020-10-15 15:45 | disposition home or self-care (01) ==
PROVIDERS: Emergency Provider Emergency Medicine Emergency Medical Services; PCP Internal Medicine
DX: J47.9 Bronchiectasis, uncomplicated (principal); I50.9 Heart failure, unspecified; Z79.899 Other long term (current) drug therapy; Z20.822 Contact with and (suspected) exposure to COVID-19
CPT/HCPCS: 0241U; 36415; 71045; 99283

== ENCOUNTER 2020-11-03 10:50 | Emergency (ER) | payer MEDICARE, MEDICAID, SELFPAY ==
[2020-11-03 11:28] VITALS: BP 117/66; PULSE 79; RESP 18; TEMP 36.9; O2SAT 95; BMI 24.7
--- NOTE | 2020-11-03 12:21 | ED_ITS ---
HPI - Skin/Abscess/Foreign Bdy General Chief complaint: Skin/Abscess/Foreign Body Stated complaint: rash Time Seen by Provider: 11/03/20 11:51 Source: patient Mode of arrival: ambulatory Limitations: no limitations History of Present Illness HPI narrative: 80-year-old male presents for 1 week of bilateral rash in his inguinal region. It is itchy but not painful. He has not had fevers. MD complaint: rash Onset (ago): week(s) (1) Tetanus up to date: unsure Location: genitals Severity: moderate Quality: pruritic Pain Consistency: constant Relieving factors: none Exacerbating factors: none Context: other (Recent discharge from hospitalization 1 week ago) Associated symptoms: denies other symptoms Treatments prior to arrival: none Related Data Home Medications Medication Instructions Recorded Confirmed brimonidine 0.2 %-timolol 0.5 % 1 drp OPHTHALMIC (EYE) BID 09/06/20 10/07/20 eye drops (Combigan) latanoprost 0.005 % eye drops 1 drp OPHTHALMIC (EYE) BEDTIME 09/06/20 10/07/20 omega 7-ofu-xti-fish oil 60 mg-90 1 cap PO DAILY 10/04/20 10/07/20 mg-500 mg capsule (Fish Oil) cefuroxime axetil 500 mg tablet 500 mg PO Q12H 10/14/20 losartan 25 mg tablet 25 mg PO DAILY 10/14/20 Previous Rx's Medication Instructions Recorded lovastatin 10 mg tablet 10 mg PO DAILY #90 tab 02/10/20 omeprazole 40 mg capsule,delayed 40 mg PO DAILY #90 cap 02/10/20 release sacubitril 24 mg-valsartan 26 mg 1 tab PO BID #60 tab 07/20/20 tablet (Entresto) mirabegron 25 mg tablet,extended 25 mg PO DAILY 90 Days #90 tab 08/26/20 release 24 hr (Myrbetriq) albuterol sulfate 90 mcg/actuation 2 puff INHALATION Q4H PRN #8.5 g 09/02/20 aerosol inhaler carvedilol 6.25 mg tablet 6.25 mg PO BID #180 tab 09/27/20 oxybutynin chloride 10 mg 10 mg PO DAILY 90 Days #90 tab 09/27/20 tablet,extended release 24 hr levofloxacin 500 mg tablet 500 mg PO DAILY #3 tab 10/06/20 prednisone 10 mg tablet See Rx Instructions .ROUTE 10/06/20 .COMPLEX #40 tab ipratropium 0.5 mg-albuterol 3 mg 3 ml INHALATION QID #120 ml 10/13/20 (2.5 mg base)/3 mL nebulization soln ipratropium 0.5 mg-albuterol 3 mg 3 ml INHALATION QID 30 Days #360 ml 10/14/20 (2.5 mg base)/3 mL nebulization soln levofloxacin 750 mg tablet 750 mg PO DAILY 5 Days #5 tab 10/15/20 doxycycline monohydrate 100 mg 100 mg PO MOWEFR #14 cap 10/19/20 capsule clotrimazole 1 % topical cream 1 appl TOPICAL BID 28 Days #45 g 11/03/20 Allergies Allergy/AdvReac Type Severity Reaction Status Date / Time Penicillins [PENICILLINS] Allergy Intermediate PASSED Verified 10/15/20 11:54 OUT trazodone Allergy Intermediate tremors Verified 10/15/20 11:54 Review of Systems Constitutional: Constitutional: Denies chills, Denies fatigue and Denies fever(s) Eyes: Eyes: Denies diplopia ENT: Denies otalgia, Denies mouth pain, Denies post nasal drip and Denies sore throat Cardiovascular: Cardiovascular: Denies chest pain, Denies syncope and Denies d yspnea Respiratory: Respiratory: Denies chest congestion, Denies cough and Denies dyspnea Gastrointestinal: Gastrointestinal: Denies abdominal pain, Denies hematochezia, Denies constipation, Denies diarrhea and Denies vomiting Genitourinary: Genitourinary: Denies genital lesions, Denies genital pain, Denies penile discharge, Denies scrotal swelling and Denies urinary urgency Musculoskeletal: Musculoskeletal: Reports no additional musculoskeletal complaints Integumentary/Breasts: Skin/Breast: Reports pruritus, Reports erythema and Reports rash Neurologic: Denies syncope Endocrine: Endocrine: Denies fatigue [facility] Past Medical History Medical History Bronchiectasis Bronchitis Bronchitis Congestive heart failure COPD (chronic obstructive pulmonary disease) COPD (chronic obstructive pulmonary disease) COPD exacerbation Essential hypertension GERD (gastroesophageal reflux disease) Glaucoma Hernia History of MAC infection Hypoxia JESSA (mycobacterium avium-intracellulare) Medicare annual wellness visit, initial NICM (nonischemic cardiomyopathy) Pure hypercholesterolemia Surgical History History of cystoscopy History of lumbar surgery History of rectal polypectomy Family History Family History Father No problems noted. Mother Medical history unknown Sister Diabetes Daughter In good health Son In good health Brother No problems noted. Social History Social History Household Members: None Housing: House Do you presently have visiting nurse or other home services: No Alcohol intake: never Patient Tobacco Use Status: Former Tobacco user Quit Date: 6 years ago e-Cigarette/Vaping Use: Never Used Second Hand Smoke Exposure: No Advance Directives: Yes Advance Directives on File: Yes Advance Directives Date on File: 10/05/20 service: No Current occupational status: retired Physical Exam Vital Signs: Vital Signs: Last Vital Signs Temp 98.5 F 11/03/20 11:28 Pulse 79 11/03/20 11:28 Resp 18 11/03/20 11:28 BP 117/66 11/03/20 11:28 Pulse Ox 95 11/03/20 11:28 Body Mass Index 24.7 Const: General: healthy appearing, comfortable, no acute distress, well developed, alert and awake Nutritional Appearance: well nourished Orientation/consciousness: patient oriented x3 Limitations: no limitations Resp: Effort & Inspection: normal respiratory effort Auscultation: clear to auscultation bilaterally, no crackles, no rales, no rhonchi and no wheezes Cardio: Palpation: normal PMI Rate: regular rate Rhythm: regular rhythm Heart sounds: S1 normal heart sound present and S2 normal heart sound present GI: Inspection: Yes normal to inspection Palpation (GI): Soft to palpation, nontender and no guarding : Male General Exam: Yes normal external exam Penis: normal penis Meatus: meatus normal and No Blood at meatus present Scrotum: scrotum normal, not edematous and not erythematous Testes: Testes normal, testicular lie normal, epididymides normal, no epidiymal masses, no epidiymal tenderness, no testicular mass, no testicular swelling and no testicular tenderness Skin: Rashes: rashes noted maculopapular rash bilateral groin Neuro: General: patient oriented x3 Course Course Course Narrative: 80-year-old male with bilateral rash in his inguinal area. Rash is confluent with satellite lesions. This looks like tinea. Will treat with clotrimazole. Counseled patient to call his primary care provider today for follow-up appointment early next week. Discharge Plan Discharge Clinical Impression: Tinea cruris Patient Disposition: Home, Self-Care Instructions: Skin Yeast Infection (ED) Additional Instructions: Please fill your prescription and apply it to your groin twice a day for the next 4 weeks. Please call your primary care provider for a follow-up appointment I would like you to be seen in the next 5-7 days. Please return to emergency room if you have fevers, if the rash becomes painful, or you have any other new or concerning symptoms. Surta coffey receta y apl?quela en la ela dos veces al d?a demetra las pr?ximas 4 semanas. Llame a coffey proveedor de atenci?n primaria para programar jean cindy de seguimiento. Me gustar?a que lo vean en los pr?ximos 5 a 7 d?as. Regrese a la lino de emergencias si tiene fiebre, si el sarpullido se vuelve doloroso o si tiene cualquier otro s?ntoma nuevo o preocupante. Prescriptions: New clotrimazole 1 % cream 1 appl topical BID 28 Days Qty: 45 RF: 0 No Action Myrbetriq 25 mg tablet extended release 24 hr 25 mg PO DAILY 90 Days Qty: 90 RF: 0 albuterol sulfate 90 mcg/actuation HFA aerosol inhaler 2 puff inhalation Q4H PRN (Reason: shortness of breath or wheezing) Qty: 8.5 RF: 4 oxybutynin chloride 10 mg tablet extended release 24hr 10 mg PO DAILY 90 Days Qty: 90 RF: 1 carvedilol 6.25 mg tablet 6.25 mg PO BID Qty: 180 RF: 1 doxycycline monohydrate 100 mg capsule 100 mg PO MOWEFR Qty: 14 RF: 3 latanoprost 0.005 % drops 1 drp ophthalmic (eye) BEDTIME RF: 0 Combigan 0.2-0.5 % drops 1 drp ophthalmic (eye) BID RF: 0 omega 3-wli-tat-fish oil [Fish Oil] 60-90-500 mg Capsule 1 cap PO DAILY RF: 0 prednisone 10 mg tablet See Rx Instructions .ROUTE .COMPLEX Qty: 40 RF: 0 levofloxacin 500 mg tablet 500 mg PO DAILY Qty: 3 RF: 0 levofloxacin 750 mg tablet 750 mg PO DAILY 5 Days Qty: 5 RF: 0 lovastatin 10 mg tablet 10 mg PO DAILY Qty: 90 RF: 3 omeprazole 40 mg capsule,delayed release(DR/EC) 40 mg PO DAILY Qty: 90 RF: 3 ipratropium-albuterol 0.5 mg-3 mg(2.5 mg base)/3 mL solution for nebulization 3 ml inhalation QID Qty: 120 RF: 11 Entresto 24-26 mg tablet 1 tab PO BID Qty: 60 RF: 5 losartan 25 mg tablet 25 mg PO DAILY RF: 0 cefuroxime axetil 500 mg tablet 500 mg PO Q12H RF: 0 ipratropium-albuterol 0.5 mg-3 mg(2.5 mg base)/3 mL solution for nebulization 3 ml inhalation QID 30 Days Qty: 360 RF: 3 Print Language: Greek
== END 2020-11-03 12:35 | disposition home or self-care (01) ==
PROVIDERS: Emergency Provider Emergency Medicine; PCP Internal Medicine
DX: B35.6 Tinea cruris (principal); Z79.899 Other long term (current) drug therapy
CPT/HCPCS: 99283

== ENCOUNTER → 2020-11-30 12:51 | Outpatient (BNVA) | payer MEDICARE, MEDICAID, SELFPAY | PROVIDERS: PCP Internal Medicine; Referring Provider Internal Medicine; Visit Provider Internal Medicine | DX: I42.8 Other cardiomyopathies (principal); I45.2 Bifascicular block | CPT/HCPCS: 99212 ==

== ENCOUNTER → 2020-12-21 13:34 | Outpatient (BNVA) | payer MEDICARE, MEDICAID, SELFPAY | PROVIDERS: PCP Internal Medicine; Visit Provider Internal Medicine Pulmonary Disease | DX: J47.1 Bronchiectasis with (acute) exacerbation (principal); Z88.0 Allergy status to penicillin; Z88.8 Allergy status to other drugs, medicaments and biological substances | CPT/HCPCS: 99212 ==

== ENCOUNTER → 2020-12-22 09:51 | Outpatient (REF) | payer MEDICARE, MEDICAID, SELFPAY ==
--- NOTE | 2020-12-22 09:54 | CA_ITS ---
Transthoracic Echocardiogram Patient (Last, First, Middle): Yao Herman A Gender: Male Date of : 1940 Age: 80 Procedure Date: 12/22/2020 Procedure Type: Transthoracic Echocardiogram Location: OP Height: 170.18 cm Weight: 69.4 kg BSA: 1.80 m2 Heart Rate: bpm BP: 120 / 60 mmHg Sound Equipment Mechanic: NEAL/MONY Referring MD: Mikey Byers MD Fruit Distributor: Toñito Cantrell MD Symptoms: I42.8 - Other cardiomyopathies Study Quality: Fair ECG Rhythm: Sinus Conclusions: - 1. Mildly reduced LV systolic function with impaired relaxation filling pattern 2. Normal cardiac valvular Doppler 3. Normal RV systolic pressure 4. No pericardial effusion Findings Left Ventricle The visually estimated ejection fraction is between 45-50%. Spectral Doppler is indicative of an impaired relaxation filling pattern. E/E prime ratio is between 8 and 15 consistent with indeterminate filling pressures. Right Ventricle Normal right ventricular cavity size and systolic function. Atria The left atrium is normal in size. There is no evidence of interatrial shunt. The right atrium is normal in size. Aortic Valve The aortic valve was not well visualized. There is no aortic valve stenosis. There is no aortic valve regurgitation. Mitral Valve There is mild anterior and posterior mitral leaflet thickening. There is trace mitral valve regurgitation. There is no mitral valve stenosis. Pulmonic Valve The pulmonic valve was not well visualized. Tricuspid Valve Likely normal tricuspid valve structure and function. There is trace tricuspid valve regurgitation. The right ventricular systolic pressure is normal. The right ventricular systolic pressure is 21 mmHg. Normal right atrial pressure. There is no evidence of pulmonary hypertension. Great Vessels All visible segments of the aorta are normal in size. The pulmonary artery was not well visualized. Venous The inferior vena cava is normal in size and collapses greater than 50% with inspiration. Pericardium/Pleural There is no evidence of pericardial effusion. Prior Study Comparison Changes noted compared to prior study dated: 07/06/2020. LV systolic function has improved Measurements 2D Linear Measurements IVSd: 0.88 0.6-0.9/0.6-1.0 cm LVIDd: 5.32 3.9-5.3/4.2-5.9 cm LVIDd Index: 2.96 2.4-3.2/2.2-3.1 cm/m2 LVIDs: 4.53 2.0-3.6 cm LVPWd: 0.81 0.7-1.1 cm Ao Root: 3.80 2.1-3.5 cm LA Diam: 3.10 2.7-3.8/3.0-4.0 cm LAIDs Index: 1.72 1.5-2.3 cm/m2 LV Mass: 202.43 67-162/88-224 g LV Mass Index: 112.46 43-95/49-115 g/m2 LVOT Diam: 2.30 3.0+(-)1.3 cm 2D Systolic Function EF 4C: 46.60 >55% EF 2C: 46.50 >55% EF BiP: 47.90 >55% Mitral Valve MV Pk E: 0.75 MV PK A: 0.99 MV Decel Time: 152.00 E/A: 0.80 E'Lateral: 7.18 E'Medial: 6.96 E/E' Med: 10.80 E/E' Lat: 10.40 PHT: 45.00 MVA PHT: 4.89 Decel Ashley: 4.92 Aortic Valve AoV Pk Darren: 1.42 AoV Mn Darren: 1.00 AoV VTI: 0.30 AoV Pk Grad: 8.00 Aov Mn Grad: 5.00 DULCE Cont.VTI: 2.38 LVOT LVOT Pk Darren: 0.77 LVOT Mn Darren: 0.54 LVOT VTI: 0.17 LVOT Pk Grad: 2.00 LVOT Mn Grad: 1.00 LVOT Diam: 2.30 LVOT Area: 4.15 Diastolic Function MV Pk E: 0.75 MV Pk A: 0.99 E/A: 0.80 E'Medial: 6.96 E/E' Med: 10.80 E' Laterial: 7.18 E/E' Lat: 10.40 Right Ventricle TAPSE (mm): 18.90 TVS' Darren: 11.60 Tricuspid Valve TR Pk Darren: 2.12 TR Pk Grad: 18.00 RA Press: 3.00 RVSP: 21.00 Great Vessels Aorta Ao Root-2D: 3.80 2.0-3.7 cm Ao Asc: 2.90 2.1-3.4 cm Ao Arch: 3.20 Updated in Other Vendor System with Status of Final Toñito Óscar MD electronically signed on 12/24/2020 3:45:08 PM with status of Final
== END ==
LOC: HO.CARD 09:51
PROVIDERS: Visit Provider Internal Medicine
DX: I42.8 Other cardiomyopathies (principal)
CPT/HCPCS: 93306

== ENCOUNTER 2021-02-17 09:22 | Outpatient (REF) | payer MEDICARE, MEDICAID, SELFPAY ==
--- NOTE | ~2021-02-17 | XR_ITS ---
EXAMINATION: XR CHEST CLINICAL INFORMATION: Chronic cough. COMPARISON: Chest radiograph done on 10/15/[address] of the chest done on 09/06/2020. TECHNIQUE: 2 views of the chest were obtained. FINDINGS: Previously documented, clinically known chronic right hemithoracic pneumothorax appears smaller since 10/15/2020. Asymmetric low lung volumes noted within the right hemithorax with extensive underlying bronchiectatic changes. The left lung field also shows chronic bronchial thickening and bronchiectatic changes, unchanged since 10/15/2020. The cardiac mediastinal silhouette is within normal limit. No evidence of an. Old healed left hemithoracic rib fracture, unchanged. Overall, since the prior cyst radiograph dated 10/15/2020, the size of the right hemithoracic chronic pneumothorax appears smaller otherwise, no other significant interval change. Specifically, no new airspace disease. XR/XR chest 2V IMPRESSION: 1. Extensive chronic bronchiectatic changes and bronchial thickening is noted within the lung marcial bilaterally with asymmetric low lung volume within the right hemithorax, appear similar to prior study dated 10/15/2020. 2. Chronic right sided pneumothorax appears smaller without resolution since 10/15/2020. 3. Specifically, no new abnormalities.
== END 2021-02-17 09:23 | disposition home or self-care (01) ==
LOC: HO.XRAY 09:22
PROVIDERS: PCP Internal Medicine; Visit Provider Nurse Practitioner Family
DX: Z13.89 Encounter for screening for other disorder (principal)
CPT/HCPCS: 71046

== ENCOUNTER 2021-02-17 10:12 | Outpatient (REF) | payer MEDICARE, MEDICAID, SELFPAY | END 2021-02-17 10:13 | disposition home or self-care (01) | LOC: HO.LAB 10:12 | PROVIDERS: Nurse Practitioner Family; Visit Provider Internal Medicine | DX: Z20.822 Contact with and (suspected) exposure to COVID-19 (principal); R05.3 Chronic cough | CPT/HCPCS: 71046; U0003; U0005 ==

== ENCOUNTER 2021-02-21 07:03 | Outpatient (REF) | payer MEDICARE, MEDICAID, SELFPAY ==
[2021-02-21 07:25] LABS: MANUAL DIFF FLAG NO
[2021-02-21 07:51] LABS: Basophils Absolute Auto 0.1 X10*3/uL (0.0-0.2); Basophils Percent Auto 0.8 % (0-2); Eosinophils Absolute Auto 0.4 X10*3/uL (0.0-0.4); Eosinophils Percent Auto 4.7 % (0-4); Hematocrit 48.1 % (42.0-52.0); Hemoglobin 15.5 g/dl (14.0-18.0); Imm Gran Abs Auto 0.04 X10*3/uL (0.00-0.03); Imm Gran Pct Auto 0.5 % (0.0-0.4); Lymphocytes Absolute Auto 1.2 X10*3/uL (1.2-4.9); Lymphocytes Percent Auto 14.6 % (20-40); Mean Corpuscular HGB Conc 32.2 g/dl (31.0-36.0); Mean Corpuscular Volume 90.1 fL (80.0-98.0); Mean Platelet Volume 9.5 fL (9.4-12.4); Monocytes Absolute Auto 0.8 X10*3/uL (0.1-1.2); Monocytes Percent Auto 9.5 % (2-11); Neutrophils Absolute Auto 5.5 x10*3/uL (2.0-8.3); Neutrophils Percent Auto 69.9 % (45-73); Platelet Count 222 X10*3/uL (160-400); Red Blood Count 5.34 X10*6/uL (4.60-5.80); Red Cell Distribution Width 12.7 % (11.0-16.0); White Blood Count 7.9 X10*3/uL (4.8-10.8)
[2021-02-21 08:22] LABS: Alanine Aminotransferase 18 U/L (0-40); Albumin Level 3.9 g/dL (3.5-5.0); Alkaline Phosphatase 68 U/L (39-117); Anion Gap 13 (12-20); Aspartate Amino Transferase 16 U/L (5-37); Bilirubin Total 0.4 mg/dL (0.0-1.0); Blood Urea Nitrogen 13 mg/dL (9-16); Calcium 9.5 mg/dL (8.4-10.2); Carbon Dioxide 30 mmol/L (22-29); Chloride 104 mmol/L (96-108); Cholesterol 139 mg/dL; Estimated Glomerular Filt Rate > 60; Glucose Fasting 96 mg/dL (60-99); HDL Cholesterol 35 mg/dL; LDL Cholesterol Calculated 80 mg/dl; Potassium 4.5 mmol/L (3.3-5.1); Sodium 142 mmol/L (135-145); Total Protein 7.4 g/dL (6.5-8.0); Triglycerides 122 mg/dL
[2021-02-21 08:29] LABS: B Type Natriuretic Peptide 16 pg/mL (<100)
== END 2021-02-21 07:04 | disposition home or self-care (01) ==
LOC: HO.LAB 07:03
PROVIDERS: PCP Internal Medicine; Visit Provider Internal Medicine
DX: I11.0 Hypertensive heart disease with heart failure (principal); I50.22 Chronic systolic (congestive) heart failure; D64.9 Anemia, unspecified; I42.8 Other cardiomyopathies; E78.5 Hyperlipidemia, unspecified
CPT/HCPCS: 36415; 80048; 80053; 80061; 83880; 85025

== ENCOUNTER 2021-03-08 10:28 | Inpatient (IN) | payer MEDICARE, MEDICAID, SELFPAY ==
--- NOTE | ~2021-03-08 | XR_ITS ---
EXAMINATION: XR CHEST CLINICAL INFORMATION: Cough COMPARISON: February 17, 2021 and studies dating back to October 08, 2017 TECHNIQUE: AP portable view of the chest was obtained. FINDINGS: There is again noted to be bilateral interstitial and airspace disease without significant change from recent studies. Some bullous changes seen about the right upper lobe. Heart normal size. No evidence of pulmonary edema. No pneumothorax or significant pleural effusion. Old left wrist fracture evident. XR/XR chest 1V IMPRESSION: Chronic bilateral lung disease without significant change.
[2021-03-08 10:45] VITALS: BP 137/112; BP 160/100; PULSE 103; PULSE 108; RESP 30; TEMP 37.1; O2SAT 88; O2SAT 90; BMI 24.1
[2021-03-08 10:52] VITALS: TEMP 38.4; O2SAT 98
--- NOTE | 2021-03-08 11:06 | ECG_ITS ---
Test Reason : DYSPNEA Blood Pressure : / mmHG Vent. Rate : 092 BPM Atrial Rate : 092 BPM P-R Int : 130 ms QRS Dur : 126 ms QT Int : 384 ms P-R-T Axes : 067 -50 014 degrees QTc Int : 474 ms Normal sinus rhythm Right bundle branch block Left anterior fascicular block Bifascicular block Abnormal ECG When compared with ECG of 04-OCT-2020 11:58, No significant change was found Referred By: Glen Sinclair Electronically Signed By:Eduard Manning
--- NOTE | 2021-03-08 11:10 | ED_ITS ---
HPI - Fever General Chief Complaint: Fever Stated Complaint: SOB W/EXERTION,COUGH X'S DAYS Time Seen by Provider: 03/08/21 11:02 Source: patient Mode of arrival: EMS Limitations: no limitations History of Present Illness HPI Narrative: This is a 80 years old male with history of COPD/bronchiectasis, presented to the emergency department via ambulance complaining of shortness of breath, cough, fever. Is not on home O2 he was found hypoxic by the ambulance crew placed on O2 supplementation. Symptoms started about 4 days. He had prior admission for bronchiectasis/COPD exacerbation MD elicited complaint: fever, malaise and weakness Onset (ago): day(s) (4) Context: other Exacerbating factors: nothing Relieving factors: nothing Associated symptoms: myalgias, cough and shortness of breath Treatments prior to arrival fever: none Related Data Home Medications Medication Instructions Recorded Confirmed acetaminophen 325 mg tablet 650 mg PO Q6H PRN 03/08/21 03/08/21 (Tylenol) brimonidine 0.2 %-timolol 0.5 % 1 drp OPHTHALMIC (EYE) BID 03/08/21 03/08/21 eye drops (Combigan) ipratropium 0.5 mg-albuterol 3 mg 3 ml INHALATION QID PRN 03/08/21 03/08/21 (2.5 mg base)/3 mL nebulization soln lovastatin 10 mg tablet 10 mg PO BEDTIME 03/08/21 03/08/21 travoprost 0.004 % eye drops 1 drp OPHTHALMIC (EYE) BEDTIME 03/08/21 03/08/21 Previous Rx's Medication Instructions Recorded albuterol sulfate 90 mcg/actuation 2 puff INHALATION Q4H PRN #8.5 g 09/02/20 aerosol inhaler carvedilol 6.25 mg tablet 6.25 mg PO BID #180 tab 09/27/20 prednisone 5 mg tablet 10 mg PO DAILY 30 Days #60 tab 12/21/20 sacubitril 24 mg-valsartan 26 mg 1 tab PO BID #60 tab 01/11/21 tablet (Entresto) mirabegron 25 mg tablet,extended 25 mg PO DAILY 90 Days #90 tab 02/15/21 release 24 hr (Myrbetriq) omeprazole 40 mg capsule,delayed 40 mg PO DAILY #90 cap 02/22/21 release Allergies Allergy/AdvReac Type Severity Reaction Status Date / Time Penicillins [PENICILLINS] Allergy Intermediate PASSED Verified 02/17/21 08:33 OUT trazodone Allergy Intermediate tremors Verified 02/17/21 08:33 Review of Systems Review of Systems: Yes all other systems are reviewed and are negative Constitutional: Constitutional: Reports body ache(s), Reports chills, Reports fatigue and Reports fever(s) Eyes: Eyes: Reports no additional eye complaints ENT: Reports system reviewed and no additional complaints, except as documented Cardiovascular: Cardiovascular: Reports no additional cardiovascular complaints Respiratory: Respiratory: Reports change in phlegm color, Reports chest congestion and Reports cough Gastrointestinal: Gastrointestinal: Reports no additional gastrointestinal complaints Genitourinary: Genitourinary: Reports no additional male genitourinary com plaints Endocrine: Endocrine: Reports fatigue Hematologic/Lymphatic: Hematologic/Lymphatic: Reports no additional hematologic/lymphatic complaints [facility] Past Medical History Medical History Bronchiectasis Bronchitis Bronchitis Congestive heart failure COPD (chronic obstructive pulmonary disease) COPD (chronic obstructive pulmonary disease) COPD exacerbation Essential hypertension GERD (gastroesophageal reflux disease) Glaucoma Hernia History of MAC infection Hypoxia JESSA (mycobacterium avium-intracellulare) Medicare annual wellness visit, initial NICM (nonischemic cardiomyopathy) Pure hypercholesterolemia Surgical History History of cystoscopy History of lumbar surgery History of rectal polypectomy Family History Family History Father No problems noted. Mother Medical history unknown Sister Diabetes Daughter In good health Son In good health Brother No problems noted. Social History Social History Household Members: None Housing: House Do you presently have visiting nurse or other home services: No Alcohol intake: never Patient Tobacco Use Status: Former Tobacco user Quit Date: 6 years ago e-Cigarette/Vaping Use: Never Used Second Hand Smoke Exposure: No Use of substances other than those prescribed or required for medical reasons: No Advance Directives: Yes Advance Directives on File: Yes Advance Directives Date on File: 10/05/20 service: No Current occupational status: retired Physical Exam Vital Signs: Vital Signs: Last Vital Signs Temp 98.9 F 03/08/21 14:51 Pulse 88 03/08/21 14:51 Resp 18 03/08/21 14:51 BP 137/81 03/08/21 14:51 Pulse Ox 91 L 03/08/21 14:51 BMI result Body Mass Index 24.1 Const: Other: On examination is febrile, tachypneic mild respiratory distress General: cooperative and anxious Nutritional Appearance: average body habitus Orientation/consciousness: patient oriented x3 HENMT: Head: Yes normal to inspection Face and sinus: Yes normal facial exam Mouth: Normal oral and palatal mucosa present Throat: Yes posterior oropharynx normal Neck: Neck: Yes normal visual inspection and Yes full ROM Lymphatic: no lymphadenopathy noted Chest: Chest palpation & inspection: normal inspection of the chest Resp: Effort & Inspection: able to speak in complete sentences and respiratory distress (mild) Auscultation: bronchial breath sounds Cardio: Jugular venous distension: no JVD Rate: regular rate Rhythm: regular rhythm GI: Inspection: Yes normal to inspection Palpation (GI): Soft to palpation Skin: General skin exam: no rashes or lesions noted, elasticity normal and turgor normal Neuro: General: patient oriented x3 Course Reevaluation(s) Reevaluation #1: Patient remained hemodynamically stable, he require O2 supplementation, he is COVID positive, he has bronchiectasis as well with antibiotic because of the bronchiectasis a purulent sputum, he was given Levaquin in order to cover Pseudomonas which is common with bronchiectasis MDM - Fever MDM Narrative Medical decision making narrative: This is a 80 years old with bronchiectasis/COPD presented with fever shortness of breath with going to get labs a chest x-ray will administer iv Solu-Medrol, we given mom IV Levaquin because history of bronchiectasis and his risk for Pseudomonas, anticipate admission Lab Data Result diagrams: 03/08/21 11:39 03/08/21 11:39 Labs: Lab Results 03/08/21 03/08/21 03/08/21 Range/Units 11:39 11:39 11:39 WBC 9.0 (4.8-10.8) X10*3/uL RBC 5.41 (4.60-5.80) X10*6/uL Hgb 15.7 (14.0-18.0) g/dl Hct 47.8 (42.0-52.0) % MCV 88.4 (80.0-98.0) fL MCH 29.0 (27.0-33.0) pg MCHC 32.8 (31.0-36.0) g/dl RDW 12.8 (11.0-16.0) % Plt Count 188 (160-400) X10*3/uL MPV 9.7 (9.4-12.4) fL Immature Gran % (Auto) 0.3 (0.0-0.4) % Neut % (Auto) 78.1 H (45-73) % Lymph % (Auto) 6.9 L (20-40) % [place] % (Auto) 13.1 H (2-11) % Eos % (Auto) 1.4 (0-4) % Baso % (Auto) 0.2 (0-2) % Lymph # (Auto) 0.6 L (1.2-4.9) X10*3/uL [place] # (Auto) 1.2 (0.1-1.2) X10*3/uL Eos # (Auto) 0.1 (0.0-0.4) X10*3/uL Baso # (Auto) 0.0 (0.0-0.2) X10*3/uL Abs Immat Gran (auto) 0.03 (0.00-0.03) X10*3/uL Absolute Neuts (auto) 7.0 (2.0-8.3) x10*3/uL Absolute Nucleated RBC 0.000 (0.0-0.012) X10*3/uL Nucleated RBC % (auto) 0.0 (0.0-0.2) /100WBC Smear Tech's Comments VERIFIED PT 13.8 H (9.9-13.0) SEC INR 1.2 H (0.9-1.1) Sodium 136 (135-145) mmol/L Potassium 3.9 (3.3-5.1) mmol/L Chloride 103 (96-108) mmol/L Carbon Dioxide 28 (22-29) mmol/L Anion Gap 9 L (12-20) BUN 9 (9-16) mg/dL Creatinine 0.78 (0.5-1.4) mg/dL Estim Creat Clear Calc 72.9 Estimated GFR > 60 Random Glucose 123 H (60-115) mg/dL Lactic Acid (0.5-2.0) mmol/L Calcium 9.0 (8.4-10.2) mg/dL Total Bilirubin 0.4 (0.0-1.0) mg/dL AST 18 (5-37) U/L ALT 19 (0-40) U/L Alkaline Phosphatase 68 (39-117) U/L Troponin I High Sens (<3.5-35.0) ng/L C-Reactive Protein 3.42 H (< or = 0.50) mg/dL Total Protein 7.4 (6.5-8.0) g/dL Albumin 3.7 (3.5-5.0) g/dL Influenza Type A (PCR) (Negative) Influenza Type B (PCR) (Negative) RSV RNA Qual (PCR) (Negative) SARS-CoV-2 RNA (RT-PCR) (Negative) 03/08/21 03/08/21 03/08/21 Range/Units 11:39 11:39 11:49 WBC (4.8-10.8) X10*3/uL RBC (4.60-5.80) X10*6/uL Hgb (14.0-18.0) g/dl Hct (42.0-52.0) % MCV (80.0-98.0) fL MCH (27.0-33.0) pg MCHC (31.0-36.0) g/dl RDW (11.0-16.0) % Plt Count (160-400) X10*3/uL MPV (9.4-12.4) fL Immature Gran % (Auto) (0.0-0.4) % Neut % (Auto) (45-73) % Lymph % (Auto) (20-40) % [place] % (Auto) (2-11) % Eos % (Auto) (0-4) % Baso % (Auto) (0-2) % Lymph # (Auto) (1.2-4.9) X10*3/uL [place] # (Auto) (0.1-1.2) X10*3/uL Eos # (Auto) (0.0-0.4) X10*3/uL Baso # (Auto) (0.0-0.2) X10*3/uL Abs Immat Gran (auto) (0.00-0.03) X10*3/uL Absolute Neuts (auto) (2.0-8.3) x10*3/uL Absolute Nucleated RBC (0.0-0.012) X10*3/uL Nucleated RBC % (auto) (0.0-0.2) /100WBC Smear Tech's Comments PT (9.9-13.0) SEC INR (0.9-1.1) Sodium (135-145) mmol/L Potassium (3.3-5.1) mmol/L Chloride (96-108) mmol/L Carbon Dioxide (22-29) mmol/L Anion Gap (12-20) BUN (9-16) mg/dL Creatinine (0.5-1.4) mg/dL Estim Creat Clear Calc Estimated GFR Random Glucose (60-115) mg/dL Lactic Acid 0.9 (0.5-2.0) mmol/L Calcium (8.4-10.2) mg/dL Total Bilirubin (0.0-1.0) mg/dL AST (5-37) U/L ALT (0-40) U/L Alkaline Phosphatase (39-117) U/L Troponin I High Sens 10.1 (<3.5-35.0) ng/L C-Reactive Protein (< or = 0.50) mg/dL Total Protein (6.5-8.0) g/dL Albumin (3.5-5.0) g/dL Influenza Type A (PCR) NEGATIVE (Negative) Influenza Type B (PCR) NEGATIVE (Negative) RSV RNA Qual (PCR) NEGATIVE (Negative) SARS-CoV-2 RNA (RT-PCR) POSITIVE A (Negative) Imaging Data Chest x-ray: Radiologist's impression: XR CHEST CLINICAL INFORMATION: Cough COMPARISON: February 17, 2021 and studies dating back to October 08, 2017 TECHNIQUE: AP portable view of the chest was obtained. FINDINGS: There is again noted to be bilateral interstitial and airspace disease without significant change from recent studies. Some bullous changes seen about the right upper lobe. Heart normal size. No evidence of pulmonary edema. No pneumothorax or significant pleural effusion. Old left wrist fracture evident. XR/XR chest 1V IMPRESSION: Chronic bilateral lung disease without significant change. ? Dictated By: Kumar Everett MD Signed By: <Electronically signed Discharge Plan Discharge Clinical Impression: Bronchiectasis, Fever, COVID-19
[2021-03-08] MEDS: methylPREDNISolone Sod Succ 125 MG/2 ML VIAL IVPUSH (11:25)
[2021-03-08 11:48] LABS: Basophils Percent Auto 0.2 % (0-2); Eosinophils Absolute Auto 0.1 X10*3/uL (0.0-0.4); Eosinophils Percent Auto 1.4 % (0-4); Hematocrit 47.8 % (42.0-52.0); Hemoglobin 15.7 g/dl (14.0-18.0); Imm Gran Abs Auto 0.03 X10*3/uL (0.00-0.03); Imm Gran Pct Auto 0.3 % (0.0-0.4); Lymphocytes Absolute Auto 0.6 X10*3/uL (1.2-4.9); Lymphocytes Percent Auto 6.9 % (20-40); MANUAL DIFF FLAG SCAN; Mean Corpuscular HGB Conc 32.8 g/dl (31.0-36.0); Mean Corpuscular Volume 88.4 fL (80.0-98.0); Mean Platelet Volume 9.7 fL (9.4-12.4); Monocytes Absolute Auto 1.2 X10*3/uL (0.1-1.2); Monocytes Percent Auto 13.1 % (2-11); Neutrophils Percent Auto 78.1 % (45-73); PLT CLUMP 1; Red Blood Count 5.41 X10*6/uL (4.60-5.80); Red Cell Distribution Width 12.8 % (11.0-16.0); SCAN SMEAR FLAG 1
[2021-03-08 11:49] LABS: Platelet Count 188 X10*3/uL (160-400)
[2021-03-08 11:52] LABS: INTERNATIONAL NORM RATIO 1.2 (0.9-1.1); Prothrombin Time 13.8 SEC (9.9-13.0)
[2021-03-08 12:00] VITALS: BP 129/75; PULSE 88; RESP 25; O2SAT 97
[2021-03-08 12:02] LABS: Lactic Acid 0.9 mmol/L (0.5-2.0)
[2021-03-08 12:05] LABS: SLIDE REVIEW VERIFIED
[2021-03-08 12:11] LABS: Albumin Level 3.7 g/dL (3.5-5.0)
[2021-03-08 12:14] LABS: Troponin-I High Sensitivity 10.1 ng/L (<3.5-35.0)
[2021-03-08] MEDS: levoFLOXacin/D5W 500 MG/100 ML PIGGYBACK 100 MG IV ×2 (12:17→13:00)
[2021-03-08 12:20] LABS: Alanine Aminotransferase 19 U/L (0-40); Alkaline Phosphatase 68 U/L (39-117); Anion Gap 9 (12-20); Aspartate Amino Transferase 18 U/L (5-37); Bilirubin Total 0.4 mg/dL (0.0-1.0); Blood Urea Nitrogen 9 mg/dL (9-16); C Reactive Protein 3.42 mg/dL (< or = 0.50); Carbon Dioxide 28 mmol/L (22-29); Chloride 103 mmol/L (96-108); Creatinine Clr Calc Pharmacy 72.9; Estimated Glomerular Filt Rate > 60; Glucose Random 123 mg/dL (60-115); Potassium 3.9 mmol/L (3.3-5.1); Sodium 136 mmol/L (135-145); Total Protein 7.4 g/dL (6.5-8.0)
[2021-03-08 12:36] LABS: Influenza A PCR NEGATIVE (Negative); Influenza B PCR NEGATIVE (Negative); Resp Syncy Virus RNA Qual PCR NEGATIVE (Negative); SARS COV2 PCR INHOUSE POSITIVE (Negative)
[2021-03-08 14:51] VITALS: BP 137/81; PULSE 88; RESP 18; TEMP 37.2; O2SAT 91
--- NOTE | 2021-03-08 15:41 | PHA.MEDREC ---
Pharmacy Consult ? Medication Reconciliation Pharmacy has completed the medication reconciliation. Spoke to pt but he was hard of hearing and confused. Noted that he takes 3 blood pressure medications but spoke to Dr. Tobin and he discontinued the losartan and kept the Entresto. Carolina Carvajal, [facility]
[2021-03-08] MEDS: Azithromycin 500 MG in 0.9 % Sodium Chloride 250 ML 125 MG IV (16:29)
[2021-03-08] MEDS: Enoxaparin Sodium 40 MG/0.4 ML SYRINGE SUBCUT (16:29)
[2021-03-08] MEDS: 0.9 % Sodium Chloride Flush 3 ML SYRINGE IVFLUSH (16:30)
--- NOTE | 2021-03-08 16:38 | PC.NURSE ---
patient medicated per order
--- NOTE | 2021-03-08 17:06 | P.HPHOSP_ITS ---
History of Present Illness Date of Service: 03/08/21 Chief Complaint: SHORTNESS OF BREATH 80-year-old male presents with approximately 4 days of worsening shortness of breath in the backdrop of known COPD non oxygen dependent at home. He also has a history of bronchiectasis. He states he is triple vaccinated as well as flu vaccine. EMS called secondary to proceeding complaints; found to be hypoxic and root. . . Responded to supplemental O2. Chest x-ray done in ER demonstrated chronic lung disease without significant change from previous exam. COVID-19 positive. Will be admitted for treatment of same Review of Systems Review of Systems: Denies chest pain Admits to exertional shortness of breath and productive cough of green sputum Denies nausea vomiting diarrhea [facility] Medical History Bronchiectasis Bronchitis Bronchitis Congestive heart failure COPD (chronic obstructive pulmonary disease) COPD (chronic obstructive pulmonary disease) COPD exacerbation Essential hypertension GERD (gastroesophageal reflux disease) Glaucoma Hernia History of MAC infection Hypoxia JESSA (mycobacterium avium-intracellulare) Medicare annual wellness visit, initial NICM (nonischemic cardiomyopathy) Pure hypercholesterolemia Family History Father No problems noted. Mother Medical history unknown Sister Diabetes Daughter In good health Son In good health Brother No problems noted. Surgical History History of cystoscopy History of lumbar surgery History of rectal polypectomy Social History Household Members: None Housing: House Do you presently have visiting nurse or other home services: No Alcohol intake: never Patient Tobacco Use Status: Former Tobacco user Quit Date: 6 years ago e-Cigarette/Vaping Use: Never Used Second Hand Smoke Exposure: No Use of substances other than those prescribed or required for medical reasons: No Advance Directives: Yes Advance Directives on File: Yes Advance Directives Date on File: 10/05/20 service: No Current occupational status: retired Meds Allergies Allergy/AdvReac Type Severity Reaction Status Date / Time Penicillins [PENICILLINS] Allergy Intermediate PASSED Verified 02/17/21 08:33 OUT trazodone Allergy Intermediate tremors Verified 02/17/21 08:33 Active Medications: Current Medications Acetaminophen (Acetaminophen 325 Mg Tablet) 650 mg PO Q6H PRN PRN Reason: Pain, Mild (Pain Scale 1-3) Enoxaparin Sodium (Enoxaparin Sodium 40 Mg/0.4 Ml Syringe) 40 mg SUBCUT Q24H [facility] Last Admin: 03/08/21 16:29 Dose: 40 mg Documented by: Azithromycin 500 mg/ Sodium (Chloride) 250 mls @ 125 mls/hr IV Q24H [facility] Last Admin: 03/08/21 16:29 Dose: 125 mls/hr Documented by: Levofloxacin (Levaquin) 500 mg in 100 mls @ 100 mls/hr IV Q24H [facility] Last Infusion: 03/08/21 14:00 Dose: Infused Documented by: Methylprednisolone Sodium Succinate (Methylprednisolone Sod Succ 125 Mg/2 Ml Vial) 60 mg IVPUSH Q6H [facility] Pharmacy Consult (Consult Rx Perform Med Rec) 1 each MISCELLANE ONCE PRN PRN Reason: Consult order Sodium Chloride (0.9 % Sodium Chloride Flush 3 Ml Syringe) 3 ml IVFLUSH QSHIFT [facility] Last Admin: 03/08/21 16:30 Dose: 3 ml Documented by: Home Medications Medication Instructions Recorded Confirmed Last Taken Type acetaminophen 325 mg tablet 650 mg PO Q6H PRN 03/08/21 03/08/21 Unknown History (Tylenol) brimonidine 0.2 %-timolol 0.5 % 1 drp OPHTHALMIC (EYE) BID 03/08/21 03/08/21 03/07/21 History eye drops (Combigan) ipratropium 0.5 mg-albuterol 3 mg 3 ml INHALATION QID PRN 03/08/21 03/08/21 03/07/21 History (2.5 mg base)/3 mL nebulization soln lovastatin 10 mg tablet 10 mg PO BEDTIME 03/08/21 03/08/21 03/07/21 History travoprost 0.004 % eye drops 1 drp OPHTHALMIC (EYE) BEDTIME 03/08/21 03/08/21 03/07/21 History Physical Exam Vital Signs and Narrative: Vital Signs: Last Vital Signs Temp 98.9 F 03/08/21 14:51 Pulse 88 03/08/21 14:51 Resp 18 03/08/21 14:51 BP 137/81 03/08/21 14:51 Pulse Ox 91 L 03/08/21 14:51 BMI result Body Mass Index 24.1 Const: Other: Awake alert no acute distress Resp: Other: Diminished at bases with diffuse expiratory wheezes heard all marcial. Scant and expiratory wheezes mid marcial Cardio: Other: NoS4; positive S1 and S2; no S3 murmurs rubs or gallops GI: Other: Soft nontender nondistended normoactive bowel sounds x4 quadrants. No rebound or guarding appreciated Neuro: Other: Cranial nerves 2-12 grossly intact as tested. Motor is 5/5 all extremities. Sensation intact. Cognition appropriate Extrem: Other: No edema bilaterally Results Labs CBC and Chem 7: 03/08/21 11:39 03/08/21 11:39 Labs: Laboratory Results - last 24 hr 03/08/21 03/08/21 03/08/21 11:39 11:39 11:39 MCV 88.4 MCH 29.0 MCHC 32.8 RDW 12.8 Plt Count 188 MPV 9.7 Immature Gran % (Auto) 0.3 Neut % (Auto) 78.1 H Lymph % (Auto) 6.9 L [place] % (Auto) 13.1 H Eos % (Auto) 1.4 Baso % (Auto) 0.2 Lymph # (Auto) 0.6 L [place] # (Auto) 1.2 Eos # (Auto) 0.1 Baso # (Auto) 0.0 Abs Immat Gran (auto) 0.03 Absolute Neuts (auto) 7.0 Absolute Nucleated RBC 0.000 Nucleated RBC % (auto) 0.0 Smear Tech's Comments VERIFIED PT 13.8 H INR 1.2 H Anion Gap 9 L Estim Creat Clear Calc 72.9 Estimated GFR > 60 Random Glucose 123 H Lactic Acid Calcium 9.0 Total Bilirubin 0.4 AST 18 ALT 19 Alkaline Phosphatase 68 Troponin I High Sens C-Reactive Protein 3.42 H Total Protein 7.4 Albumin 3.7 Influenza Type A (PCR) Influenza Type B (PCR) RSV RNA Qual (PCR) SARS-CoV-2 RNA (RT-PCR) 03/08/21 03/08/21 03/08/21 11:39 11:39 11:49 MCV MCH MCHC RDW Plt Count MPV Immature Gran % (Auto) Neut % (Auto) Lymph % (Auto) [place] % (Auto) Eos % (Auto) Baso % (Auto) Lymph # (Auto) [place] # (Auto) Eos # (Auto) Baso # (Auto) Abs Immat Gran (auto) Absolute Neuts (auto) Absolute Nucleated RBC Nucleated RBC % (auto) Smear Tech's Comments PT INR Anion Gap Estim Creat Clear Calc Estimated GFR Random Glucose Lactic Acid 0.9 Calcium Total Bilirubin AST ALT Alkaline Phosphatase Troponin I High Sens 10.1 C-Reactive Protein Total Protein Albumin Influenza Type A (PCR) NEGATIVE Influenza Type B (PCR) NEGATIVE RSV RNA Qual (PCR) NEGATIVE SARS-CoV-2 RNA (RT-PCR) POSITIVE A Imaging Radiologist's Impressions: Impressions Chest X-Ray 03/08/21 11:50 IMPRESSION: Chronic bilateral lung disease without significant change. Assessment and Plan (1) COVID-19: Status: Acute (2) Bronchiectasis: Status: Acute 72-year-old male with known history of COPD, bronchiectasis and n onischemic cardiomyopathy presents with 4 days of productive cough in the backdrop of triple vaccination along with flu vaccine. ER evaluation; COVID-19 positive chronic changes on lung x-ray. 1Covid-19 bronchiectasis Admit; supplemental O2/steroids/nebs prn 2. GERD Continue omeprazole at outpt. dosing 3.Nonischemic Cardiomyopathy Continue Entresto, Coreg at outpatient dosing Lovenox Full code Quality Stroke Does the patient have a stroke diagnosis?: No VTE Prior VTE?: No VTE Risk Level:: Medical - moderate - high VTE Device Contraindication: Treatment Not Indicated VTE Drug Contraindication: N/A - Med Ordered
[2021-03-08] MEDS: methylPREDNISolone Sod Succ 125 MG/2 ML VIAL 60 MG IVPUSH (17:36)
[2021-03-08 20:13] VITALS: BP 137/81; PULSE 85; RESP 18; O2SAT 100
[2021-03-08 21:37] VITALS: BP 136/71; PULSE 83; RESP 22; O2SAT 94
[2021-03-08] MEDS: carvediloL 6.25 MG TABLET PO (21:38)
[2021-03-08] MEDS: Sacubitril/Valsartan 24/26 1 TAB TABLET PO (21:39)
[2021-03-08] MEDS: Pravastatin Sodium 10 MG TABLET PO (21:39)
[2021-03-08] MEDS: Latanoprost 0.005 % Ophth Sol 2.5 ML DROPS 1 DROP EYE-BOTH (21:40)
[2021-03-08] MEDS: Brimonidine Tartrate 0.2% Oph 5 ML BOTTLE 1 DROP EYE-BOTH (21:40)
[2021-03-08] MEDS: timoloL maleate 0.5 % Oph Sol 5 ML DRBTL 1 DROP EYE-BOTH (21:40)
[2021-03-09] VITALS (8 sets, daily range): BP systolic 107–138; BP diastolic 56–79; PULSE 64–109; RESP 18–22; TEMP 36.4–37.5; O2SAT 94–98; BMI 24.1
[2021-03-09] MEDS: 0.9 % Sodium Chloride Flush 3 ML SYRINGE IVFLUSH ×4 (02:01→20:27)
[2021-03-09] MEDS: methylPREDNISolone Sod Succ 125 MG/2 ML VIAL 60 MG IVPUSH ×4 (02:01→18:19)
--- NOTE | 2021-03-09 05:54 | PC.NURSE ---
Uneventful shift, pt able to sleep throughout night, uses urinal independently, vitals stable/ as charted. Tolerating PO intake. Denies needs, no pain or other complaints, remains on 2L O2 via NC. Mildly tachypneic but no resp distress noted. Awaiting inpatient bed assignment
[2021-03-09 06:46] LABS: Hematocrit 47.1 % (42.0-52.0); Hemoglobin 15.3 g/dl (14.0-18.0); Imm Gran Abs Auto 0.02 X10*3/uL (0.00-0.03); Imm Gran Pct Auto 0.3 % (0.0-0.4); Lymphocytes Absolute Auto 0.5 X10*3/uL (1.2-4.9); Lymphocytes Percent Auto 6.2 % (20-40); MANUAL DIFF FLAG SCAN; Mean Corpuscular HGB Conc 32.5 g/dl (31.0-36.0); Mean Corpuscular Hemoglobin 28.7 pg (27.0-33.0); Mean Corpuscular Volume 88.2 fL (80.0-98.0); Mean Platelet Volume 9.5 fL (9.4-12.4); Monocytes Absolute Auto 0.1 X10*3/uL (0.1-1.2); Monocytes Percent Auto 1.8 % (2-11); Neutrophils Percent Auto 91.7 % (45-73); Platelet Count 221 X10*3/uL (160-400); Red Blood Count 5.34 X10*6/uL (4.60-5.80); Red Cell Distribution Width 12.4 % (11.0-16.0); SCAN SMEAR FLAG 1; White Blood Count 7.6 X10*3/uL (4.8-10.8)
[2021-03-09 07:09] LABS: Alanine Aminotransferase 20 U/L (0-40); Albumin Level 3.6 g/dL (3.5-5.0); Alkaline Phosphatase 62 U/L (39-117); Anion Gap 9 (12-20); Aspartate Amino Transferase 16 U/L (5-37); Bilirubin Total 0.5 mg/dL (0.0-1.0); Blood Urea Nitrogen 19 mg/dL (9-16); Calcium 8.8 mg/dL (8.4-10.2); Carbon Dioxide 28 mmol/L (22-29); Chloride 104 mmol/L (96-108); Estimated Glomerular Filt Rate > 60; Glucose Fasting 147 mg/dL (60-99); Potassium 3.9 mmol/L (3.3-5.1); Sodium 137 mmol/L (135-145); Total Protein 7.2 g/dL (6.5-8.0)
[2021-03-09 07:15] LABS: SLIDE REVIEW VERIFIED
[2021-03-09] MEDS: Omeprazole 40 MG CAPSULE.DR PO (07:34)
--- NOTE | 2021-03-09 07:40 | PC.NURSE ---
Pt A&Ox3, no complaints of pain at this time. Breakfast tray provided, medicated as per [facility] orders. Call yin and urinal within reach. Awaiting bed assignment. Will continue to monitor.
[2021-03-09] MEDS: Sacubitril/Valsartan 24/26 1 TAB TABLET PO ×2 (09:23→20:27)
[2021-03-09] MEDS: Mirabegron 25 MG TAB.ER.24H PO (09:23)
[2021-03-09] MEDS: carvediloL 6.25 MG TABLET PO ×2 (09:23→20:27)
[2021-03-09] MEDS: timoloL maleate 0.5 % Oph Sol 5 ML DRBTL 1 DROP EYE-BOTH (09:24)
[2021-03-09] MEDS: Brimonidine Tartrate 0.2% Oph 5 ML BOTTLE 1 DROP EYE-BOTH (09:24)
--- NOTE | 2021-03-09 09:59 | P.CDIC_ITS ---
CDI Concurrent Query Documentation Clarification: PHYSICIAN'S DOCUMENTATION REQUEST Date of Query: 03/09/21 1000 Patient Name: Yao Herman Admit Date: 03/08/21 Dear Doctor, A review of the medical record indicates additional documentation may be needed. Please review below and update the documentation accordingly. Specifics: Risk Factors/Clinical Indicators/Treatments Prior admit for bronchiectasis, COPD exacerbation. Covid-19 +/bronchiectasis. IV Solumedrol, Levaquin. SOB, hypoxic. CXR demonstrated chronic lung disease without significant change from previous e xam. Based on the above, could you clarify in the Progress Notes the appropriate diagnosis, if significant, that supports the above abnormalities and additional evaluation, monitoring, and/or treatment rendered: * Bronchiectasis * Bronchiectasis, exacerbation * Bronchiectasis, lower respiratory infection or other * Other (please specify) * Unable to determine Use of terms such as suspected, likely, concern for, or probable (associated with a specific diagnosis that is being evaluated, monitored, or treated as if it exists) are acceptable and can be coded in the inpatient setting, when documented at the time of discharge. Thank you, Libra Arriaga [facility], CDIS Extension: [phone] Please use your independent medical judgment in providing your response. THIS QUERY IS PART OF THE PERMANENT MEDICAL RECORD Provider Response: Other Other Diagnosis: History of bronchiectasis exacerbated by COVID-19
--- NOTE | 2021-03-09 10:42 | PC.NURSE ---
natural resources manager Carla called, updated on POC. Pt gave this RN permission to speak to Carla.
[2021-03-09] MEDS: levoFLOXacin/D5W 500 MG/100 ML PIGGYBACK 100 MG IV (12:09)
--- NOTE | 2021-03-09 15:16 | MHC.CM.PN ---
Met with pt with staff interpreter to discuss d/c planning: Pt lives alone, has [employer] 1x weekly for housekeeping: drives, PCP is Dr. Edu Delacruz. COVID vax x3. Pt is requesting to return to home: Unknown if he will need O2 at home: if so, pt may need VNA for cardiopulmonary assessments. CM to follow. Pt will call for transportation using his cellphone. IMM in chart. HCP declined
--- NOTE | 2021-03-09 15:43 | P.PNIM_ITS ---
Subjective Subjective Date of Service: 03/09/21 Interval History: All information via parts interpreter; no acute issues overnight feels much better today Review of Systems Denies chest pain Denies shortness of breath Denies nausea vomiting diarrhea Physical Exam Vital Signs: Vital Signs: Last Vital Signs Temp 97.9 F 03/09/21 01:29 Pulse 68 03/09/21 12:12 Resp 20 03/09/21 12:12 BP 136/75 03/09/21 12:12 Pulse Ox 94 03/09/21 12:12 BMI result Body Mass Index 24.1 Const: Other: No acute distress Resp: Other: Diminished at bases with scattered expiratory wheezes Cardio: Other: No S4; positive S1-S2; no S3 murmurs rubs or gallops GI: Other: Soft nontender nondistended with normoactive bowel sounds. No rebound or guarding Neuro: Other: Cranial nerves 2-12 grossly intact as tested. Motor is 5/5 all extremities. Sensation intact. Cognition appropriate Extrem: Other: No edema bilaterally Objective Data Active Medications Acetaminophen (Acetaminophen 325 Mg Tablet) 650 mg PO Q6H PRN PRN Reason: Pain, Mild (Pain Scale 1-3) Albuterol Sulfate (Albuterol Sulfate 90 Mcg 8 Gm Inhaler) 2 puff INHALE Q4H PRN PRN Reason: shortness of breath or wheezing Albuterol/Ipratropium (Albuterol/Iprat 2.5/0.5mg 3 Ml Ampul.Neb) 3 ml INHALE QI D PRN PRN Reason: Shortness Of Breath Brimonidine Tartrate (Brimonidine Tartrate 0.2% Oph 5 Ml Bottle) 1 drop EYE- BOTH BID [facility] Last Admin: 03/09/21 09:24 Dose: 1 drop Documented by: MARCOS Carvedilol (Carvedilol 6.25 Mg Tablet) 6.25 mg PO BID [facility]; Protocol Last Admin: 03/09/21 09:23 Dose: 6.25 mg Documented by: MARCOS Enoxaparin Sodium (Enoxaparin Sodium 40 Mg/0.4 Ml Syringe) 40 mg SUBCUT Q24H [facility] Last Admin: 03/08/21 16:29 Dose: 40 mg Documented by: DYLAN Azithromycin 500 mg/ Sodium (Chloride) 250 mls @ 125 mls/hr IV Q24H [facility] Last Infusion: 03/08/21 21:42 Dose: 0 mls/hr Documented by: YAHAIRA Levofloxacin (Levaquin) 500 mg in 100 mls @ 100 mls/hr IV Q24H [facility] Last Infusion: 03/09/21 13:20 Dose: 0 mls/hr Documented by: MARCOS Latanoprost (Latanoprost 0.005 % Ophth Thalia 2.5 Ml Drops) 1 drop EYE-BOTH BEDTIME [facility] Last Admin: 03/08/21 21:40 Dose: 1 drop Documented by: YAHAIRA Methylprednisolone Sodium Succinate (Methylprednisolone Sod Succ 125 Mg/2 Ml Vial) 60 mg IVPUSH Q6H [facility] Last Admin: 03/09/21 12:10 Dose: 60 mg Documented by: MARCOS Mirabegron (Mirabegron 25 Mg Tab.Er.24h) 25 mg PO DAILY [facility] Last Admin: 03/09/21 09:23 Dose: 25 mg Documented by: MARCOS Omeprazole (Omeprazole 40 Mg Capsule.Dr) 40 mg PO DAILY@0630 [facility] Last Admin: 03/09/21 07:34 Dose: 40 mg Documented by: MARCOS Pharmacy Consult (Consult Rx Perform Med Rec) 1 each MISCELLANE ONCE PRN PRN Reason: Consult order Pravastatin Sodium (Pravastatin Sodium 10 Mg Tablet) 10 mg PO BEDTIME [facility] Last Admin: 03/08/21 21:39 Dose: 10 mg Documented by: YAHAIRA Sacubitril/Valsartan (Sacubitril/Valsartan 1 Tab Tablet) 1 tab PO BID [facility]; Protocol Last Admin: 03/09/21 09:23 Dose: 1 tab Documented by: MARCOS Sodium Chloride (0.9 % Sodium Chloride Flush 3 Ml Syringe) 3 ml IVFLUSH QSAKFT [facility] Last Admin: 03/09/21 07:58 Dose: 3 ml Documented by: MARCOS Sodium Chloride (0.9 % Sodium Chloride Flush 3 Ml Syringe) 3 ml IVFLUSH QSHIFT [facility] Last Admin: 03/09/21 07:58 Dose: Not Given Documented by: MARCOS Non-Admin Reason: Duplicate Order Timolol Maleate (Timolol Maleate 0.5 % Oph Thalia 5 Ml Drbtl) 1 drop EYE-BOTH BID [facility] Last Admin: 03/09/21 09:24 Dose: 1 drop Documented by: MARCOS Labs CBC & Chem 7: 03/09/21 06:32 03/09/21 06:32 Labs: Laboratory Results - last 24 hr 03/09/21 03/09/21 06:32 06:32 MCV 88.2 MCH 28.7 MCHC 32.5 RDW 12.4 Plt Count 221 MPV 9.5 Immature Gran % (Auto) 0.3 Neut % (Auto) 91.7 H Lymph % (Auto) 6.2 L [place] % (Auto) 1.8 L Eos % (Auto) 0.0 Baso % (Auto) 0.0 Lymph # (Auto) 0.5 L [place] # (Auto) 0.1 Eos # (Auto) 0.0 Baso # (Auto) 0.0 Abs Immat Gran (auto) 0.02 Absolute Neuts (auto) 7.0 Absolute Nucleated RBC 0.000 Nucleated RBC % (auto) 0.0 Smear Tech's Comments VERIFIED Anion Gap 9 L Estim Creat Clear Calc 72.0 Estimated GFR > 60 Fasting Glucose 147 H D Calcium 8.8 Total Bilirubin 0.5 AST 16 ALT 20 Alkaline Phosphatase 62 Total Protein 7.2 Albumin 3.6 Microbiology Microbiology Results: Microbiology 03/08/21 11:49 Blood Culture - Preliminary Blood - Venous No growth after 24 hours. 03/08/21 11:39 Blood Culture - Preliminary Blood - Venous No growth after 24 hours. Assessment and Plan (1) Persistent cough: Status: Acute (2) COVID-19: Status: Acute (3) NICM (nonischemic cardiomyopathy): Status: Acute Assessment and Plan: 72-year-old male with known history of COPD, bronchiectasis and nonischemic cardiomyopathy presents with 4 days of productive cough in the backdrop of triple vaccination along with flu vaccine. ER evaluation; COVID-19 positive chronic changes on lung x-ray. 1Covid-19 bronchiectasis Improved; continue supplemental O2/steroids/nebs prn 2. GERD Continue omeprazole at outpt. dosing 3.Nonischemic Cardiomyopathy Continue Entresto, Coreg at outpatient dosing Lovenox Full code Quality Stroke Does the patient have a stroke diagnosis?: No VTE Prior VTE?: No VTE Risk Level:: Medical - moderate - high VTE Device Contraindication: Treatment Not Indicated VTE Drug Contraindication: N/A - Med Ordered
[2021-03-09] MEDS: Azithromycin 500 MG in 0.9 % Sodium Chloride 250 ML 125 MG IV (15:53)
[2021-03-09] MEDS: Enoxaparin Sodium 40 MG/0.4 ML SYRINGE SUBCUT (15:54)
[2021-03-09] MEDS: Pravastatin Sodium 10 MG TABLET PO (20:27)
[2021-03-10] MEDS: methylPREDNISolone Sod Succ 125 MG/2 ML VIAL 60 MG IVPUSH ×3 (00:42→12:09)
[2021-03-10] MEDS: 0.9 % Sodium Chloride Flush 3 ML SYRINGE IVFLUSH ×3 (00:44→10:15)
[2021-03-10 03:38] VITALS: BP 123/73; PULSE 70; RESP 18; TEMP 36.4; O2SAT 98
[2021-03-10] MEDS: Omeprazole 40 MG CAPSULE.DR PO (05:55)
[2021-03-10 06:52] LABS: Basophils Percent Auto 0.1 % (0-2); Hematocrit 47.2 % (42.0-52.0); Hemoglobin 15.3 g/dl (14.0-18.0); Imm Gran Abs Auto 0.05 X10*3/uL (0.00-0.03); Imm Gran Pct Auto 0.3 % (0.0-0.4); Lymphocytes Absolute Auto 0.6 X10*3/uL (1.2-4.9); Lymphocytes Percent Auto 3.9 % (20-40); MANUAL DIFF FLAG SCAN; Mean Corpuscular HGB Conc 32.4 g/dl (31.0-36.0); Mean Corpuscular Volume 89.4 fL (80.0-98.0); Mean Platelet Volume 9.7 fL (9.4-12.4); Monocytes Absolute Auto 0.4 X10*3/uL (0.1-1.2); Monocytes Percent Auto 2.7 % (2-11); Neutrophils Absolute Auto 13.3 x10*3/uL (2.0-8.3); Platelet Count 218 X10*3/uL (160-400); Red Blood Count 5.28 X10*6/uL (4.60-5.80); Red Cell Distribution Width 12.5 % (11.0-16.0); SCAN SMEAR FLAG 1; White Blood Count 14.3 X10*3/uL (4.8-10.8)
[2021-03-10 06:54] LABS: Alanine Aminotransferase 18 U/L (0-40); Albumin Level 3.4 g/dL (3.5-5.0); Alkaline Phosphatase 51 U/L (39-117); Anion Gap 11 (12-20); Aspartate Amino Transferase 15 U/L (5-37); Bilirubin Total 0.2 mg/dL (0.0-1.0); Blood Urea Nitrogen 20 mg/dL (9-16); Calcium 8.9 mg/dL (8.4-10.2); Carbon Dioxide 29 mmol/L (22-29); Chloride 104 mmol/L (96-108); Creatinine Clr Calc Pharmacy 76.9; Estimated Glomerular Filt Rate > 60; Glucose Fasting 158 mg/dL (60-99); Potassium 4.2 mmol/L (3.3-5.1); Sodium 140 mmol/L (135-145); Total Protein 6.6 g/dL (6.5-8.0)
[2021-03-10 07:14] LABS: SLIDE REVIEW VERIFIED
[2021-03-10 07:45] VITALS: BP 119/65; PULSE 66; RESP 18; TEMP 37.3; O2SAT 99
[2021-03-10] MEDS: Sacubitril/Valsartan 24/26 1 TAB TABLET PO (10:13)
[2021-03-10] MEDS: carvediloL 6.25 MG TABLET PO (10:13)
[2021-03-10] MEDS: Mirabegron 25 MG TAB.ER.24H PO (10:14)
[2021-03-10 11:45] VITALS: BP 127/66; PULSE 81; RESP 18; TEMP 36.7; O2SAT 91
[2021-03-10] MEDS: levoFLOXacin/D5W 500 MG/100 ML PIGGYBACK 100 MG IV (12:09)
[2021-03-10 12:14] VITALS: PULSE 66; O2SAT 94
--- NOTE | 2021-03-10 12:56 | P.DS_ITS ---
DS: Providers Provider Date of Service: 03/10/21 Date of admission: 03/08/21 17:04 Date of discharge: 03/10/21 Primary care physician: Olga Calzada MD DS: Diagnosis Discharge Diagnosis (1) Persistent cough: Status: Acute (2) COVID-19: Status: Acute (3) NICM (nonischemic cardiomyopathy): Status: Acute DS: Summary Hospital Course Hospital Course: 80-year-old male presents with approximately 4 days of worsening shortness of breath in the backdrop of known COPD non oxygen dependent at home.? He also has a history of bronchiectasis.? He states he is triple vaccinated as well as flu vaccine.? EMS called secondary to proceeding complaints; found to be hypoxic and root. . .? Responded to supplemental O2.? Chest x-ray done in ER demonstrated chronic lung disease without significant change from previous exam.? COVID-19 positive.? Will be admitted for treatment of same. Hospital Course Admitted with supplemental O2/solumedrol pulse dose and antibiotics. Responded well to therapies. hOME o2 EVAL DONE...1L/MIN until stable. Follow up with PCP for O2 D/C Time Spent with Patient Time attestation: Total time spent providing and/or coordinating discharge services: Discharge coordination time: Greater than 30 minutes Quality: Stroke Does the patient have a stroke diagnosis?: No Physical Exam Vital Signs: Vital Signs: Last Vital Signs Temp 98.0 F 03/10/21 11:45 Pulse 81 03/10/21 11:45 Resp 18 03/10/21 11:45 BP 127/66 03/10/21 11:45 Pulse Ox 91 L 03/10/21 11:45 BMI result Body Mass Index 24.1 DS: Data Data Completed and Pending Labs on day of discharge: Laboratory Results - last 24 hr 03/10/21 03/10/21 06:00 06:00 WBC 14.3 H RBC 5.28 Hgb 15.3 Hct 47.2 MCV 89.4 MCH 29.0 MCHC 32.4 RDW 12.5 Plt Count 218 MPV 9.7 Immature Gran % (Auto) 0.3 Neut % (Auto) 93.0 H Lymph % (Auto) 3.9 L [place] % (Auto) 2.7 Eos % (Auto) 0.0 Baso % (Auto) 0.1 Lymph # (Auto) 0.6 L [place] # (Auto) 0.4 Eos # (Auto) 0.0 Baso # (Auto) 0.0 Abs Immat Gran (auto) 0.05 H Absolute Neuts (auto) 13.3 H Absolute Nucleated RBC 0.000 Nucleated RBC % (auto) 0.0 Smear Tech's Comments VERIFIED Sodium 140 Potassium 4.2 Chloride 104 Carbon Dioxide 29 Anion Gap 11 L BUN 20 H Creatinine 0.74 Estim Creat Clear Calc 76.9 Estimated GFR > 60 Fasting Glucose 158 H Calcium 8.9 Total Bilirubin 0.2 AST 15 ALT 18 Alkaline Phosphatase 51 Total Protein 6.6 Albumin 3.4 L Preliminary micro results at discharge 03/08/21 11:49 Blood Culture - Preliminary Blood - Venous No growth after 24 hours. 03/08/21 11:39 Blood Culture - Preliminary Blood - Venous No growth after 24 hours. Discharge Plan Discharge Patient Disposition: Home, Self-Care Discharge Diagnosis: Bronchiectasis secondary to Covid_19 Referrals: Olga North MD [Primary Care Provider] - 1 Week Discharge Medications: New dexamethasone [Decadron] 6 mg tablet See Rx Instructions .ROUTE .COMPLEX Qty: 18 RF: 0 levofloxacin 500 mg tablet 500 mg PO DAILY 5 Days Qty: 5 RF: 0 Continued albuterol sulfate 90 mcg/actuation HFA aerosol inhaler 2 puff inhalation Q4H PRN (Reason: shortness of breath or wheezing) Qty: 8.5 RF: 4 carvedilol 6.25 mg tablet 6.25 mg PO BID Qty: 180 RF: 1 Entresto 24-26 mg tablet 1 tab PO BID Qty: 60 RF: 5 Myrbetriq 25 mg tablet extended release 24 hr 25 mg PO DAILY 90 Days Qty: 90 RF: 0 omeprazole 40 mg capsule,delayed release(DR/EC) 40 mg PO DAILY Qty: 90 RF: 3 travoprost 0.004 % drops 1 drp ophthalmic (eye) BEDTIME RF: 0 Combigan 0.2-0.5 % drops 1 drp ophthalmic (eye) BID RF: 0 ipratropium-albuterol 0.5 mg-3 mg(2.5 mg base)/3 mL solution for nebulization 3 ml inhalation QID PRN (Reason: Shortness Of Breath) RF: 0 lovastatin 10 mg tablet 10 mg PO BEDTIME RF: 0 acetaminophen [Tylenol] 325 mg Tablet 650 mg PO Q6H PRN (Reason: Pain) RF: 0 Discontinued prednisone 5 mg tablet 10 mg PO DAILY 30 Days Qty: 60 RF: 3 Discharge Orders: Discharge Order (Routine); Ordered 03/10/21 Ordered By: Garrett Tobin Diet: advance to usual diet Activity on Discharge: As tolerated Stand Alone Forms: Patient Portal Discharge page Care Plan Goals: Resume all home medications as before hospital Health Concerns: Use O2 for ambulation and follow-up with PCP for screen to DC O2 when appropriate Plan of Treatment: Prescribed Decadron taper; take as ordered with food. Do not take prednisone with Decadron. Start prednisone after you finish the Decadron. Levaquin, which is an antibiotic, will be daily for 5 days which you can take with the Decadron Assessment: As above
--- NOTE | 2021-03-10 13:26 | MHC.CM.PN ---
Addendum entered by Sandy Villatoro 03/10/21 13:28: Patient had a home O2 eval today. He qualifies for oxygen, 1L via [place]. Respiratory therapy has arranged for [facility] to deliver the oxygen to the patient's home. Original Note: IMM 03/10/21 Male 80 Covid+ Is discharged today to home, self care. He has arranged for transportation home.
[2021-03-10] MEDS: Enoxaparin Sodium 40 MG/0.4 ML SYRINGE SUBCUT (14:56)
[2021-03-10 16:00] VITALS: BP 138/68; PULSE 69; RESP 18; TEMP 37.1; O2SAT 97
== END 2021-03-10 16:00 | disposition home or self-care (01) | DRG 178 ==
LOC: HO.ED 11:24 → HO.EDOVER 17:12 → HO.IMC 03-09 15:45
PROVIDERS: Admitting Provider Hospitalist; Emergency Provider Emergency Medicine; PCP Internal Medicine; Visit Provider Hospitalist
DX: U07.1 COVID-19 (principal); I42.8 Other cardiomyopathies; J47.1 Bronchiectasis with (acute) exacerbation; K21.9 Gastro-esophageal reflux disease without esophagitis; Z87.891 Personal history of nicotine dependence; Z88.0 Allergy status to penicillin; Z79.899 Other long term (current) drug therapy
CPT/HCPCS: 0241U; 36415; 71045; 80053; 83605; 84484; 85025; 85610; 86140; 87040; 93005; 99285; J0456; J1650; J1956; J2930

== ENCOUNTER 2021-03-22 20:53 | Emergency (ER) | payer MEDICARE, MEDICAID, SELFPAY ==
[2021-03-22 20:55] VITALS: BP 137/68; PULSE 82; RESP 20; TEMP 36.7; O2SAT 94; BMI 24.7
[2021-03-22 21:24] LABS: MANUAL DIFF FLAG NO
[2021-03-22 21:26] LABS: Basophils Percent Auto 0.2 % (0-2); Eosinophils Absolute Auto 0.2 X10*3/uL (0.0-0.4); Eosinophils Percent Auto 1.6 % (0-4); Hematocrit 43.7 % (42.0-52.0); Hemoglobin 14.2 g/dl (14.0-18.0); Imm Gran Abs Auto 0.08 X10*3/uL (0.00-0.03); Imm Gran Pct Auto 0.8 % (0.0-0.4); Lymphocytes Absolute Auto 0.5 X10*3/uL (1.2-4.9); Mean Corpuscular HGB Conc 32.5 g/dl (31.0-36.0); Mean Corpuscular Hemoglobin 28.7 pg (27.0-33.0); Mean Corpuscular Volume 88.5 fL (80.0-98.0); Mean Platelet Volume 9.4 fL (9.4-12.4); Monocytes Absolute Auto 1.1 X10*3/uL (0.1-1.2); Monocytes Percent Auto 10.3 % (2-11); Neutrophils Absolute Auto 8.8 x10*3/uL (2.0-8.3); Neutrophils Percent Auto 82.1 % (45-73); Platelet Count 187 X10*3/uL (160-400); Red Blood Count 4.94 X10*6/uL (4.60-5.80); White Blood Count 10.7 X10*3/uL (4.8-10.8)
[2021-03-22 21:34] LABS: COVID-19 Test Positive (Negative)
[2021-03-22 21:41] LABS: Alanine Aminotransferase 45 U/L (0-40); Albumin Level 2.9 g/dL (3.5-5.0); Alkaline Phosphatase 83 U/L (39-117); Anion Gap 10 (12-20); Aspartate Amino Transferase 23 U/L (5-37); Bilirubin Total 0.4 mg/dL (0.0-1.0); Blood Urea Nitrogen 19 mg/dL (9-16); Calcium 8.4 mg/dL (8.4-10.2); Carbon Dioxide 30 mmol/L (22-29); Chloride 101 mmol/L (96-108); Creatinine Clr Calc Pharmacy 72.2; Estimated Glomerular Filt Rate > 60; Glucose Random 147 mg/dL (60-115); Potassium 4.1 mmol/L (3.3-5.1); Sodium 137 mmol/L (135-145)
[2021-03-22 21:47] LABS: B Type Natriuretic Peptide 32 pg/mL (<100)
--- NOTE | 2021-03-22 23:32 | ED.GENADULT ---
HPI - General Adult General Chief complaint: General Medical Stated complaint: Hand cramps/ Swollen feet Time Seen by Provider: 03/22/21 21:04 Source: patient Mode of arrival: ambulatory Limitations: no limitations History of Present Illness HPI narrative: Patient had COVID on 03/08 comes here for increased leg swelling for last 1 week muscle cramps no significant shortness of breath or chest pain no fever no chills no abdominal distension Related Data Home Medications Medication Instructions Recorded Confirmed acetaminophen 325 mg tablet 650 mg PO Q6H PRN 03/08/21 03/08/21 (Tylenol) brimonidine 0.2 %-timolol 0.5 % 1 drp OPHTHALMIC (EYE) BID 03/08/21 03/08/21 eye drops (Combigan) ipratropium 0.5 mg-albuterol 3 mg 3 ml INHALATION QID PRN 03/08/21 03/08/21 (2.5 mg base)/3 mL nebulization soln lovastatin 10 mg tablet 10 mg PO BEDTIME 03/08/21 03/08/21 travoprost 0.004 % eye drops 1 drp OPHTHALMIC (EYE) BEDTIME 03/08/21 03/08/21 Previous Rx's Medication Instructions Recorded albuterol sulfate 90 mcg/actuation 2 puff INHALATION Q4H PRN #8.5 g 09/02/20 aerosol inhaler carvedilol 6.25 mg tablet 6.25 mg PO BID #180 tab 09/27/20 sacubitril 24 mg-valsartan 26 mg 1 tab PO BID #60 tab 01/11/21 tablet (Entresto) mirabegron 25 mg tablet,extended 25 mg PO DAILY 90 Days #90 tab 02/15/21 release 24 hr (Myrbetriq) omeprazole 40 mg capsule,delayed 40 mg PO DAILY #90 cap 02/22/21 release dexamethasone 6 mg tablet See Rx Instructions .ROUTE 03/10/21 (Decadron) .COMPLEX #18 tab levofloxacin 500 mg tablet 500 mg PO DAILY 5 Days #5 tab 03/10/21 doxycycline monohydrate 100 mg 100 mg PO MOWEFR #14 cap 03/22/21 capsule Allergies Allergy/AdvReac Type Severity Reaction Status Date / Time Penicillins [PENICILLINS] Allergy Intermediate PASSED Verified 02/17/21 08:33 OUT trazodone Allergy Intermediate tremors Verified 02/17/21 08:33 Review of Systems Review of Systems: Yes all other systems are reviewed and are negative [facility] Past Medical History Attestation statement: The following information was validated with the patient. Medical History Bronchiectasis Bronchitis Bronchitis Congestive heart failure COPD (chronic obstructive pulmonary disease) COPD (chronic obstructive pulmonary disease) COPD exacerbation Essential hypertension GERD (gastroesophageal reflux disease) Glaucoma Hernia History of MAC infection Hypoxia JESSA (mycobacterium avium-intracellulare) Medicare annual wellness visit, initial NICM (nonischemic cardiomyopathy) Pure hypercholesterolemia Surgical History History of cystoscopy History of lumbar surgery History of rectal polypectomy Family History Family History Father No problems noted. Mother Medical history unknown Sister Diabetes Daughter In good health Son In good health Brother No problems noted. Social History Social History Household Members: None Housing: Apartment Do you presently have visiting nurse or other home services: No Alcohol intake: never Patient Tobacco Use Status: Former Tobacco user Quit Date: 6 years ago e-Cigarette/Vaping Use: Never Used Second Hand Smoke Exposure: No Use of substances other than those prescribed or required for medical reasons: No Advance Directives: No Advance Directives Date on File: 10/05/20 service: No Current occupational status: retired Physical Exam Vital Signs: Vital Signs: Last Vital Signs Temp 98.1 F 03/22/21 20:55 Pulse 82 03/22/21 20:55 Resp 20 03/23/21 00:03 BP 137/68 03/22/21 20:55 Pulse Ox 94 03/22/21 20:55 BMI result Body Mass Index 24.7 Appearance: Alert. Oriented X3. No acute distress. Eyes: no pallor or icterus ENT: Pharynx normal. Oral Mucosa moist Neck: Normal inspection. Neck supple. CVS: Normal heart rate and rhythm. Pulses normal. Respiratory: No respiratory distress. Equal air entry bilateral, no rales or wheezing Abdomen: Soft and nontender. Bowel sounds are present, Skin: Skin warm and dry. Normal skin color. Normal skin turgor. Extremities: 1+ lower extremity edema. No calf tenderness Neuro: Oriented X 3. No motor deficit. Medical Decision Making MDM Narrative Medical decision making narrative: Patient with dependent edema serum albumin is low 2.9 patient advised to have extra ensure keep the leg elevated Lab Data Lab results reviewed: Yes I reviewed the patient's lab results. Result diagrams: 03/22/21 21:17 03/22/21 21:17 Labs: Lab Results 03/22/21 03/22/21 03/22/21 Range/Units 21:17 21:17 21:17 WBC 10.7 (4.8-10.8) X10*3/uL RBC 4.94 (4.60-5.80) X10*6/uL Hgb 14.2 (14.0-18.0) g/dl Hct 43.7 (42.0-52.0) % MCV 88.5 (80.0-98.0) fL MCH 28.7 (27.0-33.0) pg MCHC 32.5 (31.0-36.0) g/dl RDW 13.0 (11.0-16.0) % Plt Count 187 (160-400) X10*3/uL MPV 9.4 (9.4-12.4) fL Immature Gran % (Auto) 0.8 H (0.0-0.4) % Neut % (Auto) 82.1 H (45-73) % Lymph % (Auto) 5.0 L (20-40) % [place]pson % (Auto) 10.3 (2-11) % Eos % (Auto) 1.6 (0-4) % Baso % (Auto) 0.2 (0-2) % Lymph # (Auto) 0.5 L (1.2-4.9) X10*3/uL [place]pson # (Auto) 1.1 (0.1-1.2) X10*3/uL Eos # (Auto) 0.2 (0.0-0.4) X10*3/uL Baso # (Auto) 0.0 (0.0-0.2) X10*3/uL Abs Immat Gran (auto) 0.08 H (0.00-0.03) X10*3/uL Absolute Neuts (auto) 8.8 H (2.0-8.3) x10*3/uL Absolute Nucleated RBC 0.000 (0.0-0.012) X10*3/uL Nucleated RBC % (auto) 0.0 (0.0-0.2) /100WBC Sodium 137 (135-145) mmol/L Potassium 4.1 (3.3-5.1) mmol/L Chloride 101 (96-108) mmol/L Carbon Dioxide 30 H (22-29) mmol/L Anion Gap 10 L (12-20) BUN 19 H (9-16) mg/dL Creatinine 0.76 (0.5-1.4) mg/dL Estim Creat Clear Calc 72.2 Estimated GFR > 60 Random Glucose 147 H (60-115) mg/dL Calcium 8.4 (8.4-10.2) mg/dL Magnesium 2.0 (1.6-2.6) mg/dL Total Bilirubin 0.4 (0.0-1.0) mg/dL AST 23 D (5-37) U/L ALT 45 H (0-40) U/L Alkaline Phosphatase 83 D (39-117) U/L B-Natriuretic Peptide 32 (<100) pg/mL Total Protein 6.0 L (6.5-8.0) g/dL Albumin 2.9 L (3.5-5.0) g/dL COVID-19 (BONNIE) (Negative) COVID-19 Clin Com 03/22/21 Range/Units 21:17 WBC (4.8-10.8) X10*3/uL RBC (4.60-5.80) X10*6/uL Hgb (14.0-18.0) g/dl Hct (42.0-52.0) % MCV (80.0-98.0) fL MCH (27.0-33.0) pg MCHC (31.0-36.0) g/dl RDW (11.0-16.0) % Plt Count (160-400) X10*3/uL MPV (9.4-12.4) fL Immature Gran % (Auto) (0.0-0.4) % Neut % (Auto) (45-73) % Lymph % (Auto) (20-40) % Sampson % (Auto) (2-11) % Eos % (Auto) (0-4) % Baso % (Auto) (0-2) % Lymph # (Auto) (1.2-4.9) X10*3/uL Sampson # (Auto) (0.1-1.2) X10*3/uL Eos # (Auto) (0.0-0.4) X10*3/uL Baso # (Auto) (0.0-0.2) X10*3/uL Abs Immat Gran (auto) (0.00-0.03) X10*3/uL Absolute Neuts (auto) (2.0-8.3) x10*3/uL Absolute Nucleated RBC (0.0-0.012) X10*3/uL Nucleated RBC % (auto) (0.0-0.2) /100WBC Sodium (135-145) mmol/L Potassium (3.3-5.1) mmol/L Chloride (96-108) mmol/L Carbon Dioxide (22-29) mmol/L Anion Gap (12-20) BUN (9-16) mg/dL Creatinine (0.5-1.4) mg/dL Estim Creat Clear Calc Estimated GFR Random Glucose (60-115) mg/dL Calcium (8.4-10.2) mg/dL Magnesium (1.6-2.6) mg/dL Total Bilirubin (0.0-1.0) mg/dL AST (5-37) U/L ALT (0-40) U/L Alkaline Phosphatase (39-117) U/L B-Natriuretic Peptide (<100) pg/mL Total Protein (6.5-8.0) g/dL Albumin (3.5-5.0) g/dL COVID-19 (BONNIE) Positive A (Negative) COVID-19 Clin Com See Note Discharge Plan Discharge Clinical Impression: Pedal edema, Hypoproteinemia Patient Disposition: Home, Self-Care Instructions: Leg Edema (ED) Additional Instructions: keep your leg elevated Have cans of Ensure daily and have 2 eggs a day for low protein Follow-up with your PCP mant?n la pierna elevada [place] latas de Aseg?rese diariamente y coma 2 huevos al d?a para jean dieta baja en prote?tate Seguimiento con coffey PCP Prescriptions: No Action albuterol sulfate 90 mcg/actuation HFA aerosol inhaler 2 puff inhalation Q4H PRN (Reason: shortness of breath or wheezing) Qty: 8.5 RF: 4 carvedilol 6.25 mg tablet 6.25 mg PO BID Qty: 180 RF: 1 Entresto 24-26 mg tablet 1 tab PO BID Qty: 60 RF: 5 Myrbetriq 25 mg tablet extended release 24 hr 25 mg PO DAILY 90 Days Qty: 90 RF: 0 omeprazole 40 mg capsule,delayed release(DR/EC) 40 mg PO DAILY Qty: 90 RF: 3 doxycycline monohydrate 100 mg capsule 100 mg PO MOWEFR Qty: 14 RF: 3 travoprost 0.004 % drops 1 drp ophthalmic (eye) BEDTIME RF: 0 Combigan 0.2-0.5 % drops 1 drp ophthalmic (eye) BID RF: 0 ipratropium-albuterol 0.5 mg-3 mg(2.5 mg base)/3 mL solution for nebulization 3 ml inhalation QID PRN (Reason: Shortness Of Breath) RF: 0 lovastatin 10 mg tablet 10 mg PO BEDTIME RF: 0 acetaminophen [Tylenol] 325 mg Tablet 650 mg PO Q6H PRN (Reason: Pain) RF: 0 dexamethasone [Decadron] 6 mg tablet See Rx Instructions .ROUTE .COMPLEX Qty: 18 RF: 0 levofloxacin 500 mg tablet 500 mg PO DAILY 5 Days Qty: 5 RF: 0 Interventions: ED Discharge Assessment Last Done: 03/23/21 00:05 Discharge Date/Time: 03/23/21 00:05 Print Language: Hebrew
[2021-03-23 00:03] VITALS: RESP 20
== END 2021-03-23 00:05 | disposition home or self-care (01) ==
PROVIDERS: Emergency Provider Internal Medicine; PCP Internal Medicine
DX: R60.0 Localized edema (principal); E87.1 Hypo-osmolality and hyponatremia; R06.02 Shortness of breath; Z20.822 Contact with and (suspected) exposure to COVID-19; Z79.899 Other long term (current) drug therapy; Z87.891 Personal history of nicotine dependence
CPT/HCPCS: 36415; 80053; 83735; 83880; 85025; 87635; 99283; 99284

== ENCOUNTER 2021-04-08 07:52 | Outpatient (REF) | payer MEDICARE, MEDICAID, SELFPAY ==
[2021-04-08 08:53] LABS: Alanine Aminotransferase 19 U/L (0-40); Albumin Level 3.5 g/dL (3.5-5.0); Alkaline Phosphatase 75 U/L (39-117); Anion Gap 11 (12-20); Aspartate Amino Transferase 14 U/L (5-37); Bilirubin Total 0.4 mg/dL (0.0-1.0); Blood Urea Nitrogen 12 mg/dL (9-16); Calcium 9.2 mg/dL (8.4-10.2); Carbon Dioxide 32 mmol/L (22-29); Chloride 102 mmol/L (96-108); Cholesterol 150 mg/dL; Estimated Glomerular Filt Rate > 60; Glucose Fasting 138 mg/dL (60-99); HDL Cholesterol 38 mg/dL; LDL Cholesterol Calculated 90 mg/dl; Potassium 4.4 mmol/L (3.3-5.1); Sodium 141 mmol/L (135-145); Total Protein 7.3 g/dL (6.5-8.0); Triglycerides 111 mg/dL
[2021-04-08 08:57] LABS: B Type Natriuretic Peptide 18 pg/mL (<100)
== END 2021-04-08 07:53 | disposition home or self-care (01) ==
LOC: HO.LAB 07:52
PROVIDERS: PCP Internal Medicine; Visit Provider Internal Medicine
DX: E78.5 Hyperlipidemia, unspecified (principal); I50.22 Chronic systolic (congestive) heart failure
CPT/HCPCS: 36415; 80053; 80061; 83880

== ENCOUNTER → 2021-05-25 13:26 | Outpatient (BNVA) | payer MEDICARE, MEDICAID, SELFPAY | PROVIDERS: PCP Internal Medicine; Visit Provider Internal Medicine Pulmonary Disease | DX: J44.9 Chronic obstructive pulmonary disease, unspecified (principal); J47.9 Bronchiectasis, uncomplicated; Z79.52 Long term (current) use of systemic steroids; Z79.899 Other long term (current) drug therapy | CPT/HCPCS: 99212 ==

== ENCOUNTER → 2021-05-31 13:21 | Outpatient (BNVA) | payer MEDICARE, MEDICAID, SELFPAY | PROVIDERS: PCP Internal Medicine; Referring Provider Internal Medicine; Visit Provider Internal Medicine | DX: I42.8 Other cardiomyopathies (principal); I45.2 Bifascicular block | CPT/HCPCS: 99212 ==

== ENCOUNTER 2021-07-12 07:37 | Outpatient (REF) | payer MEDICARE, MEDICAID, SELFPAY ==
[2021-07-12 09:23] LABS: Alanine Aminotransferase 13 U/L (0-40); Albumin Level 3.8 g/dL (3.5-5.0); Alkaline Phosphatase 53 U/L (39-117); Anion Gap 12 (12-20); Aspartate Amino Transferase 13 U/L (5-37); Bilirubin Total 0.7 mg/dL (0.0-1.0); Blood Urea Nitrogen 16 mg/dL (9-16); Calcium 9.2 mg/dL (8.4-10.2); Carbon Dioxide 28 mmol/L (22-29); Chloride 106 mmol/L (96-108); Estimated Glomerular Filt Rate > 60; Glucose Fasting 94 mg/dL (60-99); Potassium 4.1 mmol/L (3.3-5.1); Sodium 142 mmol/L (135-145); Total Protein 7.2 g/dL (6.5-8.0)
[2021-07-12 09:28] LABS: B Type Natriuretic Peptide 13 pg/mL (<100)
== END 2021-07-12 07:38 | disposition home or self-care (01) ==
LOC: HO.LAB 07:37
PROVIDERS: Internal Medicine; PCP Internal Medicine; Visit Provider Internal Medicine
DX: I10 Essential (primary) hypertension (principal); I42.8 Other cardiomyopathies
CPT/HCPCS: 36415; 80053; 83880

== ENCOUNTER 2021-07-22 12:15 | Outpatient (REF) | payer MEDICARE, MEDICAID, SELFPAY ==
--- NOTE | 2021-07-22 13:14 | MHC.AU.ANR ---
Adult Audiological Evaluation Date of Visit: 07/22/21 Special Procedure Tech Used: Ivorian- In Person Reason for Appointment: Audiological re-evaluation to determine if there has been a change in hearing. Mr. Herman has a known bilateral, sensorineural hearing loss. He has previously used hearing aids but notes that he lost them. He is interested in pursuing new hearing aids, as he states he struggles to hear and follow conversations in most settings. He denies any significant changes to his medical history, but notes that he did have COVID last year. Does patient feel they have a hearing loss?: Yes If Yes, Which Ear?: Both Ears When Was Hearing Difficulty First Noticed?: 5+ years ago Has hearing been tested previously?: Yes Previous Hearing Test Results: [facility], 12/11/2016- Moderate to moderately-severe sensorineural hearing loss bilaterally. Medical History: Medical History: Per medical record : Bronchiectasis, Congestive heart failure, COPD, Essential hypertension, GERD (gastroesophageal reflux disease), Glaucoma, History of MAC infection, Hypoxia, JESSA (mycobacterium avium-intracellulare), NICM (nonischemic cardiomyopathy), Pure hypercholesterolemia Allergies: Penicillins, trazodone Medication List: acetaminophen, albuterol sulfate, brimonidine-timolol eye drops, carvedilol, doxycycline monohydrate, ipratropium-albuterol, lovastatin, mirabegron ER (Myrbetriq), omeprazole, prednisone, sacubitril-valsartan, tobramycin, travoprost eye drops Otoscopy: Right Ear: Unremarkable Left Ear: Unremarkable Tympanometry: Tympanometry performed due to: To assess integrity of the middle ear system Right Ear: Normal Middle Ear System (Type A) Left Ear: Normal Middle Ear System (Type A) Hearing Evaluation: Transducer(s) Used: Insert Earphones, Bone Conduction Method: Conventional Audiometry Stimuli Used: Pure Tones Right Ear: Description of Hearing: Moderately-severe sensorineural hearing loss 250-8000 Hz. Left Ear: Description of Hearing: Moderately-severe sensorineural hearing loss 250-8000 Hz. Speech Recognition Threshold (SRT): Method Used: Recorded Lists Stimuli Used: Ivorian Trisyllable Words Right Ear: 65 dBHL Left Ear: 65 dBHL Word Discrimination: Method: Recorded Lists Word Lists Used: Lista Bisil?bica (Ivorian) Right Ear: 68% at 90 dBHL Left Ear: 84% at 90 dBHL Comparison: Compared to the most recent evaluation: Thresholds have decreased bilaterally. Word discrimination scores have decreased bilaterally. Recommendations: Audiological re-evaluation in one year. New, updated amplification is recommended to replace Mr. Herman's lost hearing aids. Given the type and degree of his hearing loss, he is expected to experience significant difficulties hearing and understanding speech in most situations if he is not using amplification. Discussed current hearing aid styles and technologies. He would like to try a pair of NATHAN style hearing aids. Medical clearance for hearing aid use and prior authorization will be requested. Once approved, hearing aids will be ordered. Diagnosis: Primary Diagnosis: H90.3 Bilateral Sensorineural Hearing Loss Services Performed: Services Performed: Comprehensive Audiological Evaluation (CPT 37607) Tympanometry (CPT 63222) Signature: Provider: Sudha Hector, CCC-A
--- NOTE | 2021-07-22 13:15 | MHC.AU.HAS ---
Hearing Aid Evaluation Date of Visit: 07/22/21 Animal Hospital Clerk Used: Urdu- In Person Historical Information: Description of Hearing: Flat, moderately-severe sensorineural hearing loss bilaterally. Current personal amplification information, if applicable: 2016 Phonak Virto [id number] - LOST Summary: Mr. Herman has lost both of his hearing aids. New hearing aids are recommended to help facilitate improved communication, as he is experience significant difficulties without hearing aids. Discussed hearing aid styles and technologies. He notes that he found his previous pair of ITE hearing aids uncomfortable and could not wear them for extended periods of time. Recommend trying NATHAN style hearing aids with domes. He is interested in rechargeable hearing aids. Hearing Aid Prescription: Based on the individual?s shared listening needs, communication environments, dexterity, desire for connectivity, and personal preferences, the following prescription for amplification has been made: Right ear: Industrial Specialist: Phonak Model: Audeo P70-R Battery Size: Rechargeable Color: P1 Lozenge Maker Helper: Size 1 M Type of Dome: Power Left ear: Left ear prescription to be same as Right Hearing Aid above: Industrial Specialist: Phonak Model: Audeo P70-R Battery Size: Rechargeable Color: P1 Lozenge Maker Helper: 1 M Type of Dome: Power Plan of Care: Medical clearance to be requested from PCP. Once received, prior authorization for hearing aid use will be requested from his [facility], as he received his previous hearing aids less than five years ago (~4.5 years ago). Once approved, hearing aids will be ordered. Hearing aid fitting will be scheduled when materials arrive. Primary Diagnosis: H90.3 Bilateral Sensorineural Hearing Loss Signature: Provider: Sudha Hector, CCC-A
--- NOTE | 2021-08-01 13:16 | MHC.AU.MED ---
Medical Clearance for Hearing Instrumentation Date: 08/01/21 Patient Name: Yao Herman Date of : 1940 Referring Provider: Olga Calzada MD We have seen your patient on 07/22/21 and have determined that they are a candidate for amplification (See accompanying report). Specifically, they would benefit from: Hearing aid use in both ears There is a statute that addresses Medical Evaluation Requirements prior to fitting a patient with a hearing aid. According to [place] statute 265 CMR:6.03(1), (a) General. Except as provided in 265 CMR 6.03(1)(b), a supervisor shearing shall not sell a hearing aid unless the prospective user has presented to the supervisor shearing a written statement signed by a licensed physician that states that the patient's hearing loss has been medically evaluated and the patient may be considered a candidate for a hearing aid. The medical evaluation must have taken place within the preceding six months. Please note: Due to the [place] Statute referenced above, we cannot accept a signature other than that of a licensed physician. HEAVY EQUIPMENT SALES MANAGER and PA signatures cannot be accepted. I am in agreement with the above recommendation. There is no medical contraindication for hearing instrumentation. Physician Signature Date Physician Name (Printed)
== END 2021-07-22 12:16 | disposition home or self-care (01) ==
LOC: HO.SH 12:15
PROVIDERS: Visit Provider Internal Medicine
DX: Z01.118 Encounter for examination of ears and hearing with other abnormal findings (principal); Z46.1 Encounter for fitting and adjustment of hearing aid; H90.3 Sensorineural hearing loss, bilateral
CPT/HCPCS: 92557; 92567; 92591

== ENCOUNTER 2021-09-16 12:21 | Outpatient (REF) | payer MEDICARE, MEDICAID, SELFPAY ==
--- NOTE | 2021-09-16 14:01 | MHC.AU.HFA ---
Hearing Instrument Fitting- Adult- Binaural Date of Visit: 09/16/21 Intervention Specialist Used: Turkmen- In Person Hearing Instruments Dispensed: Right Ear: Ice Cream Van Vendor: Phonak Model: Audeo P70-R Serial Number: [id number] Repair Warranty: 11/27/2024 Loss and Damage Warranty: 11/27/2024 Battery Size: Rechargeable Color: P1 Behavioral Interventionist: Size 1 M Type of Dome: Small Power Type of Wax Guard: CeruShield Left Ear: Ice Cream Van Vendor: Phonak Model: Audeo P70-R Serial Number: [id number] Repair Warranty: 11/27/2024 Loss and Damage Warranty: 11/27/2024 Battery Size: Rechargeable Color: P1 Behavioral Interventionist: 1 M Type of Dome: Small Power Type of Wax Guard: CeruShield Summary of Fitting: Feedback campaign marketing manager run. Verifit performed and levels adjusted to better reach targets. Patient felt 100% target was slightly too loud. Lowered to 90% target. Patient was pleased with the sound of the instruments. Hearing aid care and maintenance were discussed and practiced. Patient does not wish to pair the hearing aids to his phone at this time. Recommendations: Patient is an experienced hearing aid user and will call for follow-up if needed. Diagnosis Code(s): Primary Diagnosis: H90.3 Bilateral Sensorineural Hearing Loss Signature: Provider: Sudha Colin, LISETH-A
== END 2021-09-16 12:22 | disposition home or self-care (01) ==
LOC: HO.HAP 12:21
PROVIDERS: Visit Provider Internal Medicine
DX: Z46.1 Encounter for fitting and adjustment of hearing aid (principal); H90.3 Sensorineural hearing loss, bilateral
CPT/HCPCS: V5011; V5020; V5160; V5261

== ENCOUNTER 2021-09-22 13:07 | Outpatient (REF) | payer MEDICARE, MEDICAID, SELFPAY | END 2021-09-22 13:08 | disposition home or self-care (01) | LOC: HO.LAB 13:07 | PROVIDERS: PCP Internal Medicine; Visit Provider Internal Medicine Pulmonary Disease | DX: J47.9 Bronchiectasis, uncomplicated (principal) | CPT/HCPCS: 87070; 87077; 87186; 87205; 99212 ==

== ENCOUNTER 2021-09-22 16:55 | Outpatient (REF) | payer MEDICARE, MEDICAID, SELFPAY | END 2021-09-22 16:56 | disposition home or self-care (01) | LOC: HO.LNP 16:55 | PROVIDERS: Visit Provider Internal Medicine Pulmonary Disease | DX: Z13.89 Encounter for screening for other disorder (principal) | CPT/HCPCS: 87070; 87205 ==

== ENCOUNTER → 2021-09-27 14:32 | Outpatient (BNVA) | payer MEDICARE, MEDICAID, SELFPAY | PROVIDERS: PCP Internal Medicine; Visit Provider Internal Medicine Pulmonary Disease | DX: J47.1 Bronchiectasis with (acute) exacerbation (principal); Z79.899 Other long term (current) drug therapy | CPT/HCPCS: 99212 ==

== ENCOUNTER → 2021-11-03 13:21 | Outpatient (BNVA) | payer MEDICARE, MEDICAID, SELFPAY | PROVIDERS: PCP Internal Medicine; Visit Provider Internal Medicine Pulmonary Disease | DX: J47.1 Bronchiectasis with (acute) exacerbation (principal); J44.9 Chronic obstructive pulmonary disease, unspecified | CPT/HCPCS: 99212 ==

== ENCOUNTER 2021-11-10 13:44 | Outpatient (REF) | payer MEDICARE, MEDICAID, SELFPAY ==
--- NOTE | ~2021-11-10 | IR_ITS ---
PROCEDURE: IR INSERTION OF PICC CLINICAL INFORMATION: Needs central IV access for treatment. COMPARISON: None TECHNIQUE: All elements of maximal sterile barrier technique followed including use of cap, mask, sterile gown, sterile gloves, a sterile full body drape and hand hygiene. Also followed skin preparation with 2% chlorhexidine for cutaneous antisepsis, and sterile ultrasound preparation with sterile gel and probe cover when applicable. FINDINGS: Consent had been obtained by radiology nurse at time of attempted PICC line placement at bedside. Using sterile technique and ultrasound guidance a left brachial vein was accessed with guidewire being placed into the right atrium. Following fascial dilatation over the guidewire a 5 Marshallese peel-away sheath was placed into the peel-away sheath, a 5 Marshallese 49 cm long PICC line was placed with its tip at the caval atrial junction. Catheter aspirated and flushed freely. PICC line was fastened with placement of a Biopatch at skin entry site. IR/IR cvc insert peripheral IMPRESSION: Placement of left upper extremity PICC line as described. 2.9 minutes fluoroscopy time. 174 cGy centimeters squared.
--- NOTE | 2021-11-11 08:48 | HO.PICC ---
PICC Line Insertion NPICC Diagnosis: Bronchiectas Indication: need mcfp antibiotic Pertinent Labs: reviewed Technique: Following informed consent including risks, benefits and alternatives and using sterile technique including cap and mask, sterile gown, glove and drape, the right arm was prepped and draped in the usual sterile fashion of full barrier technique with CHG. Following completion of [place] Protocol the skin and soft tissues were anesthetized with 1% Lidocaine plain. Using ultrasound guidance, right cephalic vein was attempted. Unable to wire, clots blocked access. The procedure was performed in S272. Due to late hour further attempts were not tried. Referred to IR and Dr. Everett place PICC. See MD's documentation. Arm Circumference: 31 cm
== END 2021-11-10 13:45 | disposition home or self-care (01) ==
LOC: HO.RADIR 13:44
PROVIDERS: PCP Internal Medicine; Visit Provider Internal Medicine Pulmonary Disease
DX: J47.1 Bronchiectasis with (acute) exacerbation (principal)
CPT/HCPCS: 36573; C1751

== ENCOUNTER 2021-11-15 11:04 | Outpatient (REF) | payer MEDICARE, MEDICAID, SELFPAY | END 2021-11-15 11:05 | disposition home or self-care (01) | LOC: HO.MDS 11:04 | PROVIDERS: Visit Provider Internal Medicine Pulmonary Disease | DX: Z45.2 Encounter for adjustment and management of vascular access device (principal); J47.1 Bronchiectasis with (acute) exacerbation | CPT/HCPCS: 96365; J1335 ==

== ENCOUNTER → 2021-11-30 13:23 | Outpatient (BNVA) | payer MEDICARE, MEDICAID, SELFPAY | PROVIDERS: PCP Internal Medicine; Visit Provider Internal Medicine Pulmonary Disease | DX: J44.9 Chronic obstructive pulmonary disease, unspecified (principal); J47.9 Bronchiectasis, uncomplicated | CPT/HCPCS: 99212 ==

== ENCOUNTER 2021-12-07 00:32 | Inpatient (IN) | payer MEDICARE, MEDICAID, SELFPAY ==
[2021-12-07] VITALS (14 sets, daily range): BP systolic 116–183; BP diastolic 65–101; PULSE 67–121; RESP 15–47; TEMP 37.1–37.3; O2SAT 92–98; BMI 24.5
--- NOTE | ~2021-12-07 | XR_ITS ---
EXAMINATION: XR CHEST CLINICAL INFORMATION: Shortness of breath COMPARISON: Chest x-ray dated 03/08/[address] chest dated 09/06/2020 TECHNIQUE: Frontal view of the chest was obtained. FINDINGS: Diffuse bilateral patchy and nodular opacities redemonstrated with bronchiectatic changes, bronchial wall thickening and endobronchial secretions, the latter evident in the lower lungs primarily. Airspace opacities appear slightly worse within the right lower lung compared to the prior chest x-ray in February 2021. Cystic changes at the right lung apex. Probably stable loculated pneumothorax right lung apex. Normal heart size. No large pleural effusion. XR/XR chest 1V IMPRESSION: Extensive chronic lung disease as described with worsening airspace component within right lower lung compared to the prior chest x-ray February 2021.
--- NOTE | ~2021-12-07 | CT_ITS ---
EXAMINATION: CT ANGIOGRAM OF THE CHEST WITH AND WITHOUT CONTRAST (CT PULMONARY ANGIOGRAM FOR PE) CLINICAL INFORMATION: Reason for Exam dyspnea COMPARISON: 09/06/2020 TECHNIQUE: Prior to contrast administration, noncontrast localization images were obtained. Subsequently, multidetector volumetric imaging was performed from the thoracic inlet to below the diaphragms following the administration of 130 mL Omnipaque 350 intravenous contrast. No contrast reaction reported Sagittal, coronal, and MIP oblique sagittal reformatted images were obtained on the CT workstation, uploaded to PACS, and reviewed. This CT examination was performed using dose optimization techniques as appropriate, variously including the following: *Automated exposure control *Adjustment of mA and/or kV according to patient size (this includes techniques or standardized protocols for targeted exams where dose is matched to indication/reason for exam; i.e. extremities or head) *Use of iterative reconstruction technique Total exam dose-length product 507 mGy-cm FINDINGS: QUALITY OF STUDY/CONTRAST BOLUS: Satisfactory. PULMONARY ARTERIES: Limited assessment of the lower lobe pulmonary arteries due to respiratory motion artifact. No central pulmonary emboli. THORACIC AORTA: No aneurysm or dissection. LUNG: Extensive bilateral bronchiectatic changes redemonstrated, varicoid and cystic, with scattered endobronchial secretions and mucoid impaction. Cystic changes replace much of the right upper and to lesser extent right lower lobe. More consolidative opacity present in the lateral basal segment of the right lower lobe. Patchy peribronchial opacities in the anterior segments of the right upper lobe and lingula appear slightly improved in the former and worse in the latter. PLEURA: No pleural effusion or pneumothorax. MEDIASTINUM: Normal heart size. No pericardial effusion. No hilar or mediastinal lymphadenopathy. No evidence of septal bowing or right heart strain. CHEST WALL/AXILLA: No axillary or internal mammary lymphadenopathy. OSSEOUS STRUCTURES: No acute or suspicious osseous abnormality. UPPER ABDOMEN: Unremarkable. CT/CT angio chest PE protocol IMPRESSION: * No central pulmonary embolism. * Assessment of the segmental pulmonary arteries to the lower lobes, in particular the the right lower lobe limited by respiratory motion artifact. * Severe chronic lung disease as described predominantly manifest by extensive cystic and varicoid bronchiectatic changes, and bronchial secretions or mucoid impaction with associated peribronchial opacities. In the right lower lobe, there is more coalescent patchy airspace opacity suspicious for bronchopneumonia, however the peripheral location raises the possibility of a pulmonary infarct. Of note, the pulmonary artery supplying this portion of the lung are poorly assessed due to extensive respiratory motion artifact. VTE: indeterminate
--- NOTE | ~2021-12-07 | IR_ITS ---
PROCEDURE: IR INSERTION OF PICC CLINICAL INFORMATION: IV hydration. An IV access. COMPARISON: None TECHNIQUE: Following explaining ultrasound and fluoroscopy guided placement of a right PICC catheter procedure, benefits and risk, a written consent was obtained from the patient. Patient was placed supine on fluoroscopy table and preliminary ultrasound imaging was obtained into the right arm and an optimal site was selected and marked on the skin. The marked site was cleaned in the usual sterile manner. 1% local lidocaine was injected. Under sterile ultrasound guidance a single wall needle was advanced and right basilic vein was punctured. After obtaining blood return, a small guidewire was advanced through the needle and needle removed. A 5 Malaysian outer sheath was advanced over the wire and the wire was removed. A long guidewire was advanced through the sheath after removing the dilator. Pre sized catheter was then inserted over the wire through the peel-away sheath under fluoroscopy and placed in proximal SVC. The peel-away sheath and wire was removed and image was obtained over the right anterior chest. The dual lumens of the PICC catheter were flushed with heparinized saline. Sterile dressing applied at the puncture site. All elements of maximal sterile barrier technique followed including use of cap, mask, sterile gown, sterile gloves, a sterile full body drape and hand hygiene. Also followed skin preparation with 2% chlorhexidine for cutaneous antisepsis, and sterile ultrasound preparation with sterile gel and probe cover when applicable. Patient on procedure extremely well. FINDINGS: On preliminary ultrasound imaging there is widely patent basilic and cephalic veins the brachial arteries patent as well. Approximately 32 cm long dual-lumen 5 Malaysian PICC catheter was placed with its tip in the proximal SVC. The catheter is ready for use. IR/IR us guide venous access IMPRESSION: Successful ultrasound and fluoroscopy-guided dual-lumen right PICC catheter with its tip in SVC ready for use. Fluoroscopy time: 0.7 minutes. Dose: 8.012 mGy. Dose area product 2.428 sherly/centimeter square. Fluoroscopy images: 2.
--- NOTE | 2021-12-07 00:44 | ECG_ITS ---
Test Reason : cp Blood Pressure : / mmHG Vent. Rate : 122 BPM Atrial Rate : 122 BPM P-R Int : 128 ms QRS Dur : 120 ms QT Int : 328 ms P-R-T Axes : 067 -51 042 degrees QTc Int : 467 ms Poor data quality, interpretation may be adversely affected Sinus tachycardia Right bundle branch block Left anterior fascicular block Bifascicular block Abnormal ECG When compared with ECG of 08-MAR-2021 12:07, T wave inversion no longer evident in Inferior leads Heart rate has increased Referred By: Imelda Beltran Electronically Signed By:JULIÁN OROURKE
[2021-12-07] MEDS: Albuterol/Iprat 2.5/0.5MG 3 ML AMPUL.NEB INHALE ×4 (00:58→20:40)
[2021-12-07] MEDS: Albuterol Sulfate (0.083%) 2.5 MG/3 ML VIAL.NEB 7.5 MG INHALE (00:58)
--- NOTE | 2021-12-07 01:07 | PC.RT ---
ABG Drawn on 5L NC ABG Results PH 7.48 Co2:35.3 O2:82.6 HCO3:24.08
[2021-12-07 01:08] LABS: Basophils Percent Auto 0.2 % (0-2); Eosinophils Absolute Auto 0.5 X10*3/uL (0.0-0.4); Eosinophils Percent Auto 2.5 % (0-4); Hemoglobin 15.5 g/dl (14.0-18.0); Imm Gran Abs Auto 0.09 X10*3/uL (0.00-0.03); Imm Gran Pct Auto 0.5 % (0.0-0.4); Lymphocytes Absolute Auto 0.9 X10*3/uL (1.2-4.9); Lymphocytes Percent Auto 4.9 % (20-40); MANUAL DIFF FLAG NO; Mean Corpuscular HGB Conc 32.3 g/dl (31.0-36.0); Mean Corpuscular Hemoglobin 28.2 pg (27.0-33.0); Mean Corpuscular Volume 87.4 fL (80.0-98.0); Mean Platelet Volume 9.6 fL (9.4-12.4); Monocytes Absolute Auto 1.1 X10*3/uL (0.1-1.2); Monocytes Percent Auto 5.9 % (2-11); Neutrophils Absolute Auto 15.4 x10*3/uL (2.0-8.3); Platelet Count 287 X10*3/uL (160-400); Red Blood Count 5.49 X10*6/uL (4.60-5.80); Red Cell Distribution Width 14.1 % (11.0-16.0); White Blood Count 17.9 X10*3/uL (4.8-10.8)
[2021-12-07 01:10] LABS: ABG HCO3 24 mmol/L (22-26); ABG pCO2 35 mmHg (32-45); ABG pH 7.44 (7.35-7.45); ABG pO2 83 mmHg (83-108)
[2021-12-07] MEDS: Magnesium Sulfate/H2O 2 GM/50 ML PIGGYBACK IV (01:10)
[2021-12-07] MEDS: levoFLOXacin/D5W 750 MG/150 ML PIGGYBACK 100 MG IV (01:10)
[2021-12-07] MEDS: Furosemide 40 MG/4 ML VIAL IVPUSH (01:10)
[2021-12-07] MEDS: methylPREDNISolone Sod Succ 125 MG/2 ML VIAL IVPUSH (01:10)
[2021-12-07 01:20] LABS: Lactic Acid 1.4 mmol/L (0.5-2.0)
[2021-12-07 01:28] LABS: B Type Natriuretic Peptide 36 pg/mL (<100); Troponin-I High Sensitivity 7.5 ng/L (<3.5-35.0)
[2021-12-07 01:29] LABS: Alanine Aminotransferase 27 U/L (0-40); Albumin Level 4.1 g/dL (3.5-5.0); Alkaline Phosphatase 69 U/L (39-117); Anion Gap 15 (12-20); Aspartate Amino Transferase 17 U/L (5-37); Bilirubin Direct 0.2 mg/dL (0.0-0.5); Bilirubin Total 0.6 mg/dL (0.0-1.0); Blood Urea Nitrogen 14 mg/dL (9-16); Calcium 9.2 mg/dL (8.4-10.2); Carbon Dioxide 27 mmol/L (22-29); Chloride 100 mmol/L (96-108); Creatinine Clr Calc Pharmacy 73.6; Estimated Glomerular Filt Rate > 60; Glucose Random 116 mg/dL (60-115); Lipase 22 U/L (8-78); Potassium 4.2 mmol/L (3.3-5.1); Sodium 138 mmol/L (135-145)
--- NOTE | 2021-12-07 01:30 | PC.NURSE ---
Pt a&o, respiratory at bedside. Pt placed on Bipap. Pt medicated per May. . Will continue to monitor.
[2021-12-07 01:39] LABS: ABG Refer to POC result
[2021-12-07 01:42] LABS: Appearance Urine Clear; Color Urine Yellow; Glucose Urine UA Negative (Negative); Leukocyte Esterase Urine Negative (Negative); Nitrite Urine Negative (Negative); Urine Blood Negative (Negative); Urine Ketones Negative (Negative); Urine Protein Trace mg/dL (Neg-Trace)
--- NOTE | 2021-12-07 01:49 | ED.GENADULT ---
HPI - General Adult General Chief complaint: Dyspnea Stated complaint: DIFF BREATHING HX COPD 96%15L Time Seen by Provider: 12/07/21 00:44 Source: patient, EMS and asl interpreter Mode of arrival: EMS Limitations: no limitations History of Present Illness HPI narrative: 81-year-old male came in for evaluation of respiratory distress. Patient came in with respiratory distress, known history of COPD, bronchiectasis, chronic JESSA patient formally treated with multi antibiotic regimen in the past showed improvement with Bactrim, patient use supplemental oxygen at home, patient is a former smoker. Symptoms started 5 days ago with coughing and hemoptysis, no recent travel, no lower extremity swelling or tenderness. patient was started on BiPAP machine in the emergency department patient still coughing hemoptysis. Patient showed improvement with BiPAP machine. Related Data Home Medications Medication Instructions Recorded Confirmed acetaminophen 325 mg tablet 650 mg PO Q6H PRN Pain 03/08/21 08/10/21 (Tylenol) brimonidine 0.2 %-timolol 0.5 % 1 drp ophthalmic (eye) BID 03/08/21 08/10/21 eye drops (Combigan) travoprost 0.004 % eye drops 1 drp ophthalmic (eye) BEDTIME 03/08/21 08/10/21 Previous Rx's Medication Instructions Recorded omeprazole 40 mg capsule,delayed 40 mg PO DAILY #90 caps 02/22/21 release sacubitril 24 mg-valsartan 26 mg 1 tab PO BID 90 days #180 tabs 07/19/21 tablet (Entresto) doxycycline monohydrate 100 mg 100 mg PO MOWEFR #14 caps 08/05/21 capsule ipratropium 0.5 mg-albuterol 3 mg 3 ml inhalation QID PRN for 08/31/21 (2.5 mg base)/3 mL nebulization dyspnea #180 mL soln albuterol sulfate 90 mcg/actuation 2 puff inhalation Q4H PRN 10/30/21 aerosol inhaler shortness of breath or wheezing #8.5 grams carvedilol 6.25 mg tablet 6.25 mg PO BID #180 tabs 10/30/21 mirabegron 25 mg tablet,extended 25 mg PO DAILY 90 days #90 tabs 10/30/21 release 24 hr (Myrbetriq) lovastatin 10 mg tablet 10 mg PO DAILY 90 days #90 tabs 11/08/21 prednisone 10 mg tablet 40 mg PO DAILY 5 days #20 tabs 11/30/21 Allergies Allergy/AdvReac Type Severity Reaction Status Date / Time Penicillins [PENICILLINS] Allergy Intermediate PASSED Verified 11/30/21 13:33 OUT trazodone Allergy Intermediate tremors Verified 11/30/21 13:33 Review of Systems Review of Systems: All other systems are reviewed and are negative Constitutional: Reports as per HPI and Reports no additional constitutional complaints Eyes: Reports as per HPI and Reports no additional eye complaints Reports system reviewed and no additional complaints, except as documented Cardiovascular: Reports as per HPI and Reports no additional cardiovascular complaints Respiratory: Reports as per HPI and Reports no additional respiratory complaints Gastrointestinal: Reports as per HPI and Reports no additional gastrointestinal complaints Genitourinary: Reports no additional female genitourinary complaints Musculoskeletal: Reports no additional musculoskeletal complaints Skin/Breast: Reports system reviewed and no additional complaints, except as docu Psychiatric: Reports no additional psychiatric complaints Endocrine: Reports no additional endocrine complaints Hematologic/Lymphatic: Reports no additional hematologic/lymphatic complaints Allergic/Immunologic: Reports no additional allergic/immunologic complaints Reports system reviewed and no additional complaints, except as documented and Reports Abnormal speech present [facility] Past Medical History Medical History Bronchiectasis Bronchitis Bronchitis Congestive heart failure COPD (chronic obstructive pulmonary disease) COPD (chronic obstructive pulmonary disease) COPD exacerbation Essential hypertension GERD (gastroesophageal reflux disease) Glaucoma Hearing loss Hernia History of MAC infection Hypoxia JESSA (mycobacterium avium-intracellulare) Medicare annual wellness visit, initial Medicare annual wellness visit, subsequent NICM (nonischemic cardiomyopathy) Pure hypercholesterolemia Surgical History History of cystoscopy History of lumbar surgery History of rectal polypectomy Family History Family History Father No problems noted. Mother Medical history unknown Sister Diabetes Daughter In good health Son In good health Brother No problems noted. Social History Social History Household Members: None Housing: Apartment Do you presently have visiting nurse or other home services: No Alcohol intake: never Patient Tobacco Use Status: Former Tobacco user Quit Date: 6 years ago e-Cigarette/Vaping Use: Never Used Second Hand Smoke Exposure: No Advance Directives: Yes Advance Directives on File: Yes Advance Directives Date on File: 07/12/21 service: No Current occupational status: retired Cognitive needs: No Hearing needs: No Vision needs: No Physical Exam ED Vital Signs: Vital Signs - 24 hr 12/07/21 00:41 12/07/21 01:09 12/07/21 01:37 Temperature 98.7 F Pulse Rate 121 H 118 H Respiratory Rate 26 H 47 H 30 H Blood Pressure 117/101 H 183/84 H Pulse Oximetry 96 Oxygen Delivery Method Room Air Nasal Cannula Oxygen Flow Rate 4 BMI result Body Mass Index 24.5 Vital signs have been reviewed as appeared to be correct. Blood pressure normal. Heart rate normal. Respiration rate normal. Temperature normal. Oxygen saturation normal. Appearance: Alert. Oriented X3. acute respiratory distress. Head: Normal external exam. Normocephalic. Atraumatic. No Mckeon signs noted. No raccoon eyes noted Eyes: PERRLA. EOMI. Conjunctiva and sclera normal. Eyelids normal. ENT: TM's Normal. Pharynx normal. Uvula midline. Moist mucous membranes. No trismus noted. No drooling noted. No muffled voice noted. Neck: Normal inspection. Neck supple. FROM. No adenopathy. Thyroid Normal. No meningeal signs. No neck mass noted. CVS: Normal heart rate and rhythm. Heart sound normal. No murmurs noted. Pulses normal throughout. Respiratory: Acute respiratory distress. Painless inspiration. Breath sounds normal. No wheezes/rales/rhonchi noted. Chest nontender. No accessory muscle usage noted or decreased air movement noted. Abdomen: Soft and nontender. Bowel sounds normal in all 4 quadrants. No distention noted. No organomegaly noted. No visible injury noted. Back: No CVA tenderness. Full range of motion noted. Skin: Skin warm and dry. Normal skin color. Normal skin turgor. No rashes/lesions/lacerations noted. Extremities: No lower extremity edema. Extremities exhibit normal range of motion. Extremities nontender. Neuro: Oriented X 3. Cranial nerve exam: II-XII are grossly intact No motor deficit. No sensory deficit. Reflexes normal. Course Course Course Narrative: 81-year-old male with history of bronchiectasis and COPD came in with acute respiratory distress initial exam was combination of COPD and congestive heart failure patient received bronchodilator, Levaquin, magnesium, Solu-Medrol, and Lasix a patient was placed on BiPAP machine and patient showed improvement with the BiPAP machine, patient was weaned off the BiPAP machine in the emergency department and will be monitored in the ED without BiPAP, consider CTA of the chest to rule out PE, patient met criteria for SIRS received antibiotic without severe sepsis or septic shock, in the past patient showed improvement with Bactrim will add Bactrim to the antibiotic regimen, case was signed out to Medical Decision Making Lab Data Lab results reviewed: Yes I reviewed the patient's lab results. Result diagrams: 12/07/21 00:58 12/07/21 00:58 Labs: Lab Results 12/07/21 12/07/21 12/07/21 Range/Units 00:58 00:58 00:58 WBC 17.9 H (4.8-10.8) X10*3/uL RBC 5.49 (4.60-5.80) X10*6/uL Hgb 15.5 (14.0-18.0) g/dl Hct 48.0 (42.0-52.0) % MCV 87.4 (80.0-98.0) fL MCH 28.2 (27.0-33.0) pg MCHC 32.3 (31.0-36.0) g/dl RDW 14.1 (11.0-16.0) % Plt Count 287 D (160-400) X10*3/uL MPV 9.6 (9.4-12.4) fL Immature Gran % (Auto) 0.5 H (0.0-0.4) % Neut % (Auto) 86.0 H (45-73) % Lymph % (Auto) 4.9 L (20-40) % Tucker % (Auto) 5.9 (2-11) % Eos % (Auto) 2.5 (0-4) % Baso % (Auto) 0.2 (0-2) % Lymph # (Auto) 0.9 L (1.2-4.9) X10*3/uL Tucker # (Auto) 1.1 (0.1-1.2) X10*3/uL Eos # (Auto) 0.5 H (0.0-0.4) X10*3/uL Baso # (Auto) 0.0 (0.0-0.2) X10*3/uL Abs Immat Gran (auto) 0.09 H (0.00-0.03) X10*3/uL Absolute Neuts (auto) 15.4 H (2.0-8.3) x10*3/uL Absolute Nucleated RBC 0.000 (0.0-0.012) X10*3/uL Nucleated RBC % (auto) 0.0 (0.0-0.2) /100WBC O2 Saturation % ABG pH at Pt Temp (7.35-7.45) ABG pCO2 at Pt Temp (32-45) mmHg ABG pO2 at Pt Temp (83-108) mmHg ABG HCO3 (22-26) mmol/L ABG Base Excess (Actual) mmol/L Sodium 138 (135-145) mmol/L Potassium 4.2 (3.3-5.1) mmol/L Chloride 100 (96-108) mmol/L Carbon Dioxide 27 (22-29) mmol/L Anion Gap 15 (12-20) BUN 14 (9-16) mg/dL Creatinine 0.76 (0.5-1.4) mg/dL Estim Creat Clear Calc 73.6 Estimated GFR > 60 Random Glucose 116 H (60-115) mg/dL Lactic Acid (0.5-2.0) mmol/L Calcium 9.2 (8.4-10.2) mg/dL Total Bilirubin 0.6 (0.0-1.0) mg/dL Direct Bilirubin 0.2 (0.0-0.5) mg/dL AST 17 (5-37) U/L ALT 27 (0-40) U/L Alkaline Phosphatase 69 D (39-117) U/L Troponin I High Sens 7.5 (<3.5-35.0) ng/L B-Natriuretic Peptide 36 (<100) pg/mL Total Protein 8.0 (6.5-8.0) g/dL Albumin 4.1 (3.5-5.0) g/dL Lipase 22 (8-78) U/L Urine Color Urine Appearance Urine pH (5.0-9.0) Ur Specific [place] (1.005-1.025) Urine Protein (Neg-Trace) mg/dL Urine Glucose (UA) (Negative) mg/dL Urine Ketones (Negative) mg/dL Urine Blood (Negative) Urine Nitrite (Negative) Ur Leukocyte Esterase (Negative) 12/07/21 12/07/21 12/07/21 Range/Units 00:58 01:03 01:37 WBC (4.8-10.8) X10*3/uL RBC (4.60-5.80) X10*6/uL Hgb (14.0-18.0) g/dl Hct (42.0-52.0) % MCV (80.0-98.0) fL MCH (27.0-33.0) pg MCHC (31.0-36.0) g/dl RDW (11.0-16.0) % Plt Count (160-400) X10*3/uL MPV (9.4-12.4) fL Immature Gran % (Auto) (0.0-0.4) % Neut % (Auto) (45-73) % Lymph % (Auto) (20-40) % Tucker % (Auto) (2-11) % Eos % (Auto) (0-4) % Baso % (Auto) (0-2) % Lymph # (Auto) (1.2-4.9) X10*3/uL Tucker # (Auto) (0.1-1.2) X10*3/uL Eos # (Auto) (0.0-0.4) X10*3/uL Baso # (Auto) (0.0-0.2) X10*3/uL Abs Immat Gran (auto) (0.00-0.03) X10*3/uL Absolute Neuts (auto) (2.0-8.3) x10*3/uL Absolute Nucleated RBC (0.0-0.012) X10*3/uL Nucleated RBC % (auto) (0.0-0.2) /100WBC O2 Saturation 97.0 % ABG pH at Pt Temp 7.44 (7.35-7.45) ABG pCO2 at Pt Temp 35 (32-45) mmHg ABG pO2 at Pt Temp 83 (83-108) mmHg ABG HCO3 24 (22-26) mmol/L ABG Base Excess (Actual) 1.0 mmol/L Sodium (135-145) mmol/L Potassium (3.3-5.1) mmol/L Chloride (96-108) mmol/L Carbon Dioxide (22-29) mmol/L Anion Gap (12-20) BUN (9-16) mg/dL Creatinine (0.5-1.4) mg/dL Estim Creat Clear Calc Estimated GFR Random Glucose (60-115) mg/dL Lactic Acid 1.4 (0.5-2.0) mmol/L Calcium (8.4-10.2) mg/dL Total Bilirubin (0.0-1.0) mg/dL Direct Bilirubin (0.0-0.5) mg/dL AST (5-37) U/L ALT (0-40) U/L Alkaline Phosphatase (39-117) U/L Troponin I High Sens (<3.5-35.0) ng/L B-Natriuretic Peptide (<100) pg/mL Total Protein (6.5-8.0) g/dL Albumin (3.5-5.0) g/dL Lipase (8-78) U/L Urine Color Yellow Urine Appearance Clear Urine pH 8.0 (5.0-9.0) Ur Specific [place] 1.010 (1.005-1.025) Urine Protein Trace (Neg-Trace) mg/dL Urine Glucose (UA) Negative (Negative) mg/dL Urine Ketones Negative (Negative) mg/dL Urine Blood Negative (Negative) Urine Nitrite Negative (Negative) Ur Leukocyte Esterase Negative (Negative) ECG Data Attestation: I personally reviewed and interpreted this ECG as follows: Interpretation: Sinus tachycardia at 122 beats per minutes normal interval, right bundle branch block, no ST-T changes. Critical Care Time Critical Care Time Critical Care Time: Yes Total Critical Care Time: 60 Attestation: I spent 60 minutes providing critical care service to the patient, this including time spent at the bedside to evaluate the patient, reassess the patient, monitoring vital signs, review labs, and radiographic studies, counseling the patient/family, discussing the case with consultants, disposition the patient. Discharge Plan Discharge Clinical Impression: Bronchiectasis, Pneumonia, Acute exacerbation of chronic obstructive pulmonary disease (COPD) Patient Disposition: Admitted As Inpatient Prescriptions: No Action omeprazole 40 mg capsule,delayed release(DR/EC) 40 mg PO DAILY Qty: 90 3RF Entresto 24-26 mg tablet 1 tab PO BID 90 Days Qty: 180 3RF doxycycline monohydrate 100 mg capsule 100 mg PO MOWEFR Qty: 14 3RF ipratropium-albuterol 0.5 mg-3 mg(2.5 mg base)/3 mL solution for nebulization 3 ml inhalation QID PRN (Reason: for dyspnea) Qty: 180 0RF albuterol sulfate 90 mcg/actuation HFA aerosol inhaler 2 puff inhalation Q4H PRN (Reason: shortness of breath or wheezing) Qty: 8.5 4RF Myrbetriq 25 mg tablet extended release 24 hr 25 mg PO DAILY 90 Days Qty: 90 0RF carvedilol 6.25 mg tablet 6.25 mg PO BID Qty: 180 1RF lovastatin 10 mg tablet 10 mg PO DAILY 90 Days Qty: 90 3RF travoprost 0.004 % drops 1 drp ophthalmic (eye) BEDTIME Combigan 0.2-0.5 % drops 1 drp ophthalmic (eye) BID acetaminophen [Tylenol] 325 mg Tablet 650 mg PO Q6H PRN (Reason: Pain) prednisone 10 mg tablet 40 mg PO DAILY 5 Days Qty: 20 0RF
[2021-12-07] MEDS: Sulfamethox/Trimeth 800/160 TABLET 1 TAB PO (02:24)
--- NOTE | 2021-12-07 02:56 | PC.NURSE ---
I assumed nursing care of Yao upon his arrival to bed 11 via EMS after he presented from home for evaluation of severe shortness of breath. On arrival Yao appears diaphoretic with labored respirations and a RR of 60, fast and shallow respirations. He is able to speak 2-3 words at a time (via travel guide), no cyanosis, O2 sat's on arrival 95% with 15lpm NRB. STach on bedside monitor, rate 100's-110's. No chest pain. No nausea. No vomiting. Shortly after arrival pt coughed up a small amount of bloody sputum. IV access x 2 obtained. Pt has been voiding into bedside urinal independently. Pt was initiated on BiPAP by RT shortly after arrival and after RT deliver initially ordered nebs. Pt was on BiPAP for approximately 20 minutes before Paul CAMPOS and humane agent decided to remove BiPAP. On arrival RR 60, a this time his RR has improved to a rate of 36. he remains on 4L nasal cannula and his sat's are 92% or better. Pt has been to CT and is awaiting CT results at this time.
[2021-12-07] MEDS: iohexoL 350 MG/ML 100 ML INFUS..BTL IV (03:36)
[2021-12-07 06:22] LABS: Influenza A PCR NEGATIVE (Negative); Influenza B PCR NEGATIVE (Negative); Resp Syncy Virus RNA Qual PCR NEGATIVE (Negative); SARS COV2 PCR INHOUSE NEGATIVE (Negative)
--- NOTE | 2021-12-07 09:38 | PHA.MEDREC ---
Pharmacy Consult ? Medication Reconciliation Pharmacy has completed the medication reconciliation. Patient is poor historian, does not know any medications. Reports he does not have help. Med rec complete by claim history. Hilda Valadez, LenkaD
--- NOTE | 2021-12-07 10:05 | PM.IMHP ---
History of Present Illness Date of Service: 12/07/21 Chief Complaint: cough, shortness of breath This is a 81 year old male with a PMH of COPD, bronchieactasis, JESSA infection - s/p treatment, 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 The patient is Vietnamese speak and the history is obtained with the help of a sheet metal pattern cutter. Despite this, he remains a vague historian. He reports that he has progressive SOB and cough, which have not been relieved by his baseline inhalers / neublizer treatments. He reorts blood tinged sputum which began yesterday. She dnies any chest pain, pleuritic or anginal. He denies any fevers or chills. He deneis any GI or symptoms. Upon arrival to the ED, the patient was in visible respiratory distress with rates in the 40s-60s. He was speaking in 2-3 word sentences. He was placed on BIPAP in the ED, given IV antibiotics, IV lasix, IV steroids. Once improved admission was requested to the medical floor. Review of Systems Review of Systems: negative except HPI PMFSH Medical History Bronchiectasis Bronchitis Bronchitis Congestive heart failure COPD (chronic obstructive pulmonary disease) COPD (chronic obstructive pulmonary disease) COPD exacerbation Essential hypertension GERD (gastroesophageal reflux disease) Glaucoma Hearing loss Hernia History of MAC infection Hypoxia JESSA (mycobacterium avium-intracellulare) Medicare annual wellness visit, initial Medicare annual wellness visit, subsequent NICM (nonischemic cardiomyopathy) Pure hypercholesterolemia Family History Father No problems noted. Mother Medical history unknown Sister Diabetes Daughter In good health Son In good health Brother No problems noted. Surgical History History of cystoscopy History of lumbar surgery History of rectal polypectomy Social History Household Members: None Housing: Apartment Do you presently have visiting nurse or other home services: No Alcohol intake: unknown Patient Tobacco Use Status: Former Tobacco user Quit Date: 6 years ago e-Cigarette/Vaping Use: Never Used Second Hand Smoke Exposure: No Use of substances other than those prescribed or required for medical reasons: Unknown Advance Directives: Yes Advance Directives on File: Yes Advance Directives Date on File: 07/12/21 service: No Current occupational status: retired Cognitive needs: No Hearing needs: No Vision needs: No Meds Allergies Allergy/AdvReac Type Severity Reaction Status Date / Time Penicillins [PENICILLINS] Allergy Intermediate PASSED Verified 11/30/21 13:33 OUT trazodone Allergy Intermediate tremors Verified 11/30/21 13:33 Active Medications: Current Medications Acetaminophen (Acetaminophen 325 Mg Tablet) 650 mg PO Q6H PRN PRN Reason: Pain, Mild (Pain Scale 1-3) Albuterol/Ipratropium (Albuterol/Iprat 2.5/0.5mg 3 Ml Ampul.Neb) 3 ml INHALE RQ4H WHILE AWAKE [facility] Brimonidine Tartrate (Brimonidine Tartrate 0.2% Oph 5 Ml Bottle) 1 drop EYE-BOTH BID [facility] Carvedilol (Carvedilol 6.25 Mg Tablet) 6.25 mg PO BID TON; Protocol Meropenem 1 gm/ Sodium (Chloride) 100 mls @ 200 mls/hr IV Q8H [facility] Doxycycline Hyclate 100 mg/ (Sodium Chloride) 250 mls @ 166.67 mls/hr IV Q12H [facility] Latanoprost (Latanoprost 0.005 % Ophth Thalia 2.5 Ml Drops) 1 drop EYE-BOTH BEDTIME [facility] Methylprednisolone Sodium Succinate (Methylprednisolone Sod Succ 40 Mg/Ml Vial) 40 mg IVPUSH Q8H [facility] Mirabegron (Mirabegron 25 Mg Tab.Er.24h) 25 mg PO DAILY [facility] Omeprazole (Omeprazole 40 Mg Capsule.Dr) 40 mg PO DAILY@0630 [facility] Ondansetron HCl (Ondansetron Hcl 4 Mg/2 Ml Vial) 4 mg IVPUSH Q8H PRN PRN Reason: Nausea and Vomiting Pharmacy Consult (Consult Rx Perform Med Rec) 1 each MISCELLANE ONCE PRN PRN Reason: Consult order Pravastatin Sodium (Pravastatin Sodium 10 Mg Tablet) 10 mg PO DAILY [facility] Sacubitril/Valsartan (Sacubitril/Valsartan 1 Tab Tablet) 1 tab PO BID [facility]; Protocol Sodium Chloride (0.9 % Sodium Chloride Flush 3 Ml Syringe) 3 ml IVFLUSH QSHIFT [facility] Timolol Maleate (Timolol Maleate 0.5 % Oph Thalia 5 Ml Drbtl) 1 drop EYE-BOTH BID [facility] Home Medications Medication Instructions Recorded Confirmed Last Taken Type brimonidine 0.2 %-timolol 0.5 % 1 drp ophthalmic (eye) BID 03/08/21 12/07/21 03/07/21 History eye drops (Combigan) travoprost 0.004 % eye drops 1 drp ophthalmic (eye) BEDTIME 03/08/21 12/07/21 03/07/21 History prednisone 5 mg tablet 2 tab PO DAILY 12/07/21 12/07/21 Unknown History Physical Exam Vital Signs and Narrative: Vital Signs: Last Vital Signs Temp 99.2 F 12/07/21 08:19 Pulse 79 12/07/21 08:19 Resp 22 H 12/07/21 08:19 BP 123/71 12/07/21 08:19 Pulse Ox 97 12/07/21 08:19 O2 Del Method 12/07/21 08:19 O2 Flow Rate 4 12/07/21 08:19 BMI result Body Mass Index 24.5 Const: Other: Constitutional - Awake and Alert, No apparent distress Eyes - PERRLA, EOMI Cardiovascular - S1S2, RRR, No edema Respiratory - Appears comfortable with 4L O2; diminished sounds globally Gastrointestinal - NT / ND; +BS; No rebound or guarding - No CVA tenderness Extremities - no calf tenderness bilaterally, no swelling Musculoskeletal - Normal inspection, normal ROM Skin - Warm/Dry Neurological - Alert & oriented x3, No focal deficit Psychological - Appropriate affect Results Labs CBC and Chem 7: 12/07/21 00:58 12/07/21 00:58 Labs: Laboratory Results - last 24 hr 12/07/21 12/07/21 12/07/21 00:58 00:58 00:58 MCV 87.4 MCH 28.2 MCHC 32.3 RDW 14.1 Plt Count 287 D MPV 9.6 Immature Gran % (Auto) 0.5 H Neut % (Auto) 86.0 H Lymph % (Auto) 4.9 L Real % (Auto) 5.9 Eos % (Auto) 2.5 Baso % (Auto) 0.2 Lymph # (Auto) 0.9 L Real # (Auto) 1.1 Eos # (Auto) 0.5 H Baso # (Auto) 0.0 Abs Immat Gran (auto) 0.09 H Absolute Neuts (auto) 15.4 H Absolute Nucleated RBC 0.000 Nucleated RBC % (auto) 0.0 O2 Saturation ABG pH at Pt Temp ABG pCO2 at Pt Temp ABG pO2 at Pt Temp ABG HCO3 ABG Base Excess (Actual) Anion Gap 15 Estim Creat Clear Calc 73.6 Estimated GFR > 60 Random Glucose 116 H Lactic Acid Calcium 9.2 Total Bilirubin 0.6 Direct Bilirubin 0.2 AST 17 ALT 27 Alkaline Phosphatase 69 D B-Natriuretic Peptide 36 Total Protein 8.0 Albumin 4.1 Lipase 22 Urine Color Urine Appearance Urine pH Ur Specific [place] Urine Protein Urine Glucose (UA) Urine Ketones Urine Blood Urine Nitrite Ur Leukocyte Esterase Influenza Type A (PCR) Influenza Type B (PCR) RSV RNA Qual (PCR) SARS-CoV-2 RNA (RT-PCR) 12/07/21 12/07/21 12/07/21 00:58 01:03 01:37 MCV MCH MCHC RDW Plt Count MPV Immature Gran % (Auto) Neut % (Auto) Lymph % (Auto) Real % (Auto) Eos % (Auto) Baso % (Auto) Lymph # (Auto) Real # (Auto) Eos # (Auto) Baso # (Auto) Abs Immat Gran (auto) Absolute Neuts (auto) Absolute Nucleated RBC Nucleated RBC % (auto) O2 Saturation 97.0 ABG pH at Pt Temp 7.44 ABG pCO2 at Pt Temp 35 ABG pO2 at Pt Temp 83 ABG HCO3 24 ABG Base Excess (Actual) 1.0 Anion Gap Estim Creat Clear Calc Estimated GFR Random Glucose Lactic Acid 1.4 Calcium Total Bilirubin Direct Bilirubin AST ALT Alkaline Phosphatase B-Natriuretic Peptide Total Protein Albumin Lipase Urine Color Yellow Urine Appearance Clear Urine pH 8.0 Ur Specific [place] 1.010 Urine Protein Trace Urine Glucose (UA) Negative Urine Ketones Negative Urine Blood Negative Urine Nitrite Negative Ur Leukocyte Esterase Negative Influenza Type A (PCR) Influenza Type B (PCR) RSV RNA Qual (PCR) SARS-CoV-2 RNA (RT-PCR) 12/07/21 05:40 MCV MCH MCHC RDW Plt Count MPV Immature Gran % (Auto) Neut % (Auto) Lymph % (Auto) Real % (Auto) Eos % (Auto) Baso % (Auto) Lymph # (Auto) Real # (Auto) Eos # (Auto) Baso # (Auto) Abs Immat Gran (auto) Absolute Neuts (auto) Absolute Nucleated RBC Nucleated RBC % (auto) O2 Saturation ABG pH at Pt Temp ABG pCO2 at Pt Temp ABG pO2 at Pt Temp ABG HCO3 ABG Base Excess (Actual) Anion Gap Estim Creat Clear Calc Estimated GFR Random Glucose Lactic Acid Calcium Total Bilirubin Direct Bilirubin AST ALT Alkaline Phosphatase B-Natriuretic Peptide Total Protein Albumin Lipase Urine Color Urine Appearance Urine pH Ur Specific [place] Urine Protein Urine Glucose (UA) Urine Ketones Urine Blood Urine Nitrite Ur Leukocyte Esterase Influenza Type A (PCR) NEGATIVE Influenza Type B (PCR) NEGATIVE RSV RNA Qual (PCR) NEGATIVE SARS-CoV-2 RNA (RT-PCR) NEGATIVE Imaging Radiologist's Impressions: Impressions Chest X-Ray 12/07/21 01:17 IMPRESSION: Extensive chronic lung disease as described with worsening airspace component within right lower lung compared to the prior chest x-ray February 2021. Chest CTA 12/07/21 03:10 IMPRESSION: * No central pulmonary embolism. * Assessment of the segmental pulmonary arteries to the lower lobes, in particular the the right lower lobe limited by respiratory motion artifact. * Severe chronic lung disease as described predominantly manifest by extensive cystic and varicoid bronchiectatic changes, and bronchial secretions or mucoid impaction with associated peribronchial opacities. In the right lower lobe, there is more coalescent patchy airspace opacity suspicious for bronchopneumonia, however the peripheral location raises the possibility of a pulmonary infarct. Of note, the pulmonary artery supplying this portion of the lung are poorly assessed due to extensive respiratory motion artifact. VTE: indeterminate Assessment and Plan (1) Acute exacerbation of chronic obstructive pulmonary disease (COPD): Status: Acute (2) Severe sepsis: Status: Acute Plan This is a 81 year old male with a PMH of COPD, bronchieactasis, JESSA infection - s/p treatment, 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 He is noted to have acute respiratory failure with hypoxia, COPD exacerbation and possibly exacerbation of his underlying chronic lung disease. He will be admitted for further work up. 1. Acute Respiratory Failure with hypoxia 1a. Severe sepsis 1a Acute bronchiectasis exacerbation Met sepsis criteria with leukocytosis, tachycardia, tachypnea; severe features including respiratory failure requiring BIPAP Continue supplemental O2 via NC -- goal 92 Start Merrem (history of ESBL E. Coli in urine) + Doxy and consult pulm follow culture data 2. COPD exacerbation IV steroids and scheduled + PRN nebulized bronchodilators antibiotics as above 3. Hemoptysis likely due to #1a no milla hemoptysis noted CTA neg for central PE 3. NICM continue coreg / entresto no evidence of acute decompensation 4. GERD PPI Full Code DVT pptx -- mechanical due to hemoptysis Quality Stroke Does the patient have a stroke diagnosis?: No VTE Prior VTE?: No VTE Risk Level:: Medical - moderate - high VTE Device Contraindication: N/A - Device Ordered VTE Drug Contraindication: Treatment Not Indicated
[2021-12-07] MEDS: Doxycycline Hyclate 100 MG in 0.9 % Sodium Chloride 250 ML 166.67 MG IV ×2 (10:55→21:26)
--- NOTE | 2021-12-07 14:31 | P.CONPL_ITS ---
History of Present Illness History of Present Illness Consult date: 12/07/21 Requesting physician: Raúl Butt Chief complaint: Shortness of breath Narrative: 81-year-old gentleman with underlying COPD, bronchiectasis prior JESSA status post partial treatment, recent bronchiectasis exacerbation with ESBL E coli status post PICC placement and ertapenem with good clinical response, now admitted on 12/07/2021 with worsening dyspnea, cough productive of sputum, and small volume hemoptysis. Patient has been started on empiric meropenem and systemic glucocorticoids with improvement in his symptoms. Review of Systems Constitutional: Constitutional: Denies daytime sleepiness, Denies excessive sweating, Denies fatigue, Denies fever(s), Denies lethargy, Denies malaise, Denies night sweats, Denies snoring and Denies weight loss Eyes: Eyes: Denies blurry vision and Denies itchy eyes ENT: Denies nasal congestion, Denies post nasal drip, Denies sinus pain, Denies sinus pressure and Denies other ( Thrush) Cardiovascular: Cardiovascular: Denies chest pain, Denies pedal edema, Denies dyspnea, Reports dyspnea on exertion, Denies orthopnea and Denies paroxysmal nocturnal dyspnea Respiratory: Respiratory: Reports cough, Denies hemoptysis, Reports excessive phlegm production, Denies dyspnea, Reports dyspnea on exertion, Denies snoring and Denies wheezing Gastrointestinal: Gastrointestinal: Denies abdominal pain and Denies heartburn Musculoskeletal: Musculoskeletal: Denies myalgias, Denies arthralgias and Denies joint swelling Integumentary/Breasts: Skin/Breast: Denies rash Neurologic: Denies memory loss and Denies seizure-like activity Psychiatric: Psychiatric: Denies abnormal sleep pattern, Denies anxiety and D enies memory loss Endocrine: Endocrine: Denies excessive sweating, Denies fatigue and Denies heat intolerance Hematologic/Lymphatic: Hematologic/Lymphatic: Denies easy bruising Allergic/Immunologic: Allergic/Immunologic: Denies itchy eyes, Denies seasonal rhinorrhea and Denies wheezing PMFSH Past Medical History Medical History Bronchiectasis Bronchitis Bronchitis Congestive heart failure COPD (chronic obstructive pulmonary disease) COPD (chronic obstructive pulmonary disease) COPD exacerbation Essential hypertension GERD (gastroesophageal reflux disease) Glaucoma Hearing loss Hernia History of MAC infection Hypoxia JESSA (mycobacterium avium-intracellulare) Medicare annual wellness visit, initial Medicare annual wellness visit, subsequent NICM (nonischemic cardiomyopathy) Pure hypercholesterolemia Family History Family History Father No problems noted. Mother Medical history unknown Sister Diabetes Daughter In good health Son In good health Brother No problems noted. Surgical History Surgical History History of cystoscopy History of lumbar surgery History of rectal polypectomy Social History Social History Household Members: None Housing: Apartment Do you presently have visiting nurse or other home services: No Alcohol intake: unknown Patient Tobacco Use Status: Former Tobacco user Quit Date: 6 years ago e-Cigarette/Vaping Use: Never Used Second Hand Smoke Exposure: No Use of substances other than those prescribed or required for medical reasons: Unknown Advance Directives: Yes Advance Directives on File: Yes Advance Directives Date on File: 07/12/21 service: No Current occupational status: retired Cognitive needs: No Hearing needs: No Vision needs: No Meds Allergies Allergy/AdvReac Type Severity Reaction Status Date / Time Penicillins [PENICILLINS] Allergy Intermediate PASSED Verified 11/30/21 13:33 OUT trazodone Allergy Intermediate tremors Verified 11/30/21 13:33 Active Medications: Current Medications Acetaminophen (Acetaminophen 325 Mg Tablet) 650 mg PO Q6H PRN PRN Reason: Pain, Mild (Pain Scale 1-3) Albuterol/Ipratropium (Albuterol/Iprat 2.5/0.5mg 3 Ml Ampul.Neb) 3 ml INHALE RQ4H WHILE AWAKE TON Last Admin: 12/07/21 11:37 Dose: 3 ml Brimonidine Tartrate (Brimonidine Tartrate 0.2% Oph 5 Ml Bottle) 1 drop EYE- BOTH BID TON Carvedilol (Carvedilol 6.25 Mg Tablet) 6.25 mg PO BID TON; Protocol Meropenem 1 gm/ Sodium (Chloride) 100 mls @ 200 mls/hr IV Q8H TON Doxycycline Hyclate 100 mg/ (Sodium Chloride) 250 mls @ 166.67 mls/hr IV Q12H TON Latanoprost (Latanoprost 0.005 % Ophth Thalia 2.5 Ml Drops) 1 drop EYE-BOTH BEDTIME [facility] Methylprednisolone Sodium Succinate (Methylprednisolone Sod Succ 40 Mg/Ml Vial) 40 mg IVPUSH Q8H [facility] Mirabegron (Mirabegron 25 Mg Tab.Er.24h) 25 mg PO DAILY [facility] Omeprazole (Omeprazole 40 Mg Capsule.Dr) 40 mg PO DAILY@0630 [facility] Ondansetron HCl (Ondansetron Hcl 4 Mg/2 Ml Vial) 4 mg IVPUSH Q8H PRN PRN Reason: Nausea and Vomiting Pharmacy Consult (Consult Rx Perform Med Rec) 1 each MISCELLANE ONCE PRN PRN Reason: Consult order Pravastatin Sodium (Pravastatin Sodium 10 Mg Tablet) 10 mg PO DAILY [facility] Sacubitril/Valsartan (Sacubitril/Valsartan 1 Tab Tablet) 1 tab PO BID [facility]; Protocol Sodium Chloride (0.9 % Sodium Chloride Flush 3 Ml Syringe) 3 ml IVFLUSH QSHIFT [facility] Timolol Maleate (Timolol Maleate 0.5 % Oph Thalia 5 Ml Drbtl) 1 drop EYE-BOTH BID [facility] Home Medications Medication Instructions Recorded Confirmed Last Taken Type brimonidine 0.2 %-timolol 0.5 % 1 drp ophthalmic (eye) BID 03/08/21 12/07/21 03/07/21 History eye drops (Combigan) travoprost 0.004 % eye drops 1 drp ophthalmic (eye) BEDTIME 03/08/21 12/07/21 03/07/21 History prednisone 5 mg tablet 2 tab PO DAILY 12/07/21 12/07/21 Unknown History Physical Exam Vital Signs: Vital Signs: Last Vital Signs Temp 99.2 F 12/07/21 08:19 Pulse 76 12/07/21 11:37 Resp 19 12/07/21 11:37 BP 123/71 12/07/21 08:19 Pulse Ox 97 12/07/21 08:19 O2 Del Method 12/07/21 08:19 O2 Flow Rate 4 12/07/21 08:19 BMI result Body Mass Index 24.5 Const: General: no acute distress and alert Nutritional Appearance: not obese Orientation/consciousness: Other orientation findings ( oriented) HEENT: Head: Yes atraumatic Mouth: no other ( thrush) Throat: No postna ariel drainage Eyes: General: appearance normal, both eyes and all related structures Sclerae: sclerae normal EOM: EOMs intact bilaterally Neck: Neck: Yes supple Lymphatic: no lymphadenopathy noted Resp: Effort & Inspection: normal respiratory effort and no use of accessory muscles Auscultation: clear to auscultation bilaterally Cardio: Rate: regular rate Rhythm: regular rhythm Heart sounds: no gallops, no murmurs and no rubs GI: Palpation (GI): Soft to palpation and Other GI palpation findings present ( nontender) Skin: General skin exam: other ( warm) Rashes: no rashes Extrem: General: No clubbing, No cyanosis and No edema Results Laboratory Findings CBC and BMP: 12/07/21 00:58 12/07/21 00:58 Abnormal lab findings: Abnormal Labs 12/07/21 12/07/21 00:58 00:58 WBC 17.9 H Immature Gran % (Auto) 0.5 H Neut % (Auto) 86.0 H Lymph % (Auto) 4.9 L Lymph # (Auto) 0.9 L Eos # (Auto) 0.5 H Abs Immat Gran (auto) 0.09 H Absolute Neuts (auto) 15.4 H Random Glucose 116 H Assessment and Plan (1) Bronchiectasis: Status: Acute (2) COPD (chronic obstructive pulmonary disease): Status: Acute Plan Impression: 81-year-old gentleman with underlying advanced COPD and significant bronchiectasis with ESBL organism now presenting with exacerbation of his underlying bronchiectasis symptomatic with dyspnea and cough, and sputum production. Has been started on empiric meropenem and systemic glucocorticoids with some improvement his symptoms. He does have small volume hemoptysis from exacerbation of his underlying bronchiectasis and COPD. Recommendations: Agree with current regimen of meropenem, systemic glucocorticoids, and nebulized bronchodilators. If fails to improve, will consider repeating bronchoscopy for BAL cultures. Procedures Date of Service Date of Service: 12/07/21
[2021-12-07] MEDS: methylPREDNISolone Sod Succ 40 MG/ML VIAL IVPUSH ×2 (14:36→20:39)
[2021-12-07] MEDS: carvediloL 6.25 MG TABLET PO (20:39)
[2021-12-08] VITALS (9 sets, daily range): BP systolic 112–158; BP diastolic 65–78; PULSE 66–81; RESP 16–20; TEMP 36.3–37.2; O2SAT 92–98
[2021-12-08] MEDS: 0.9 % Sodium Chloride Flush 3 ML SYRINGE IVFLUSH ×3 (00:09→17:21)
[2021-12-08] MEDS: methylPREDNISolone Sod Succ 40 MG/ML VIAL IVPUSH ×3 (04:59→20:43)
[2021-12-08] MEDS: Omeprazole 40 MG CAPSULE.DR PO (04:59)
[2021-12-08] MEDS: Albuterol/Iprat 2.5/0.5MG 3 ML AMPUL.NEB INHALE ×4 (07:23→19:51)
[2021-12-08] MEDS: carvediloL 6.25 MG TABLET PO ×2 (08:30→20:45)
[2021-12-08 08:32] LABS: Hematocrit 46.2 % (42.0-52.0); Hemoglobin 14.9 g/dl (14.0-18.0); Mean Corpuscular HGB Conc 32.3 g/dl (31.0-36.0); Mean Corpuscular Hemoglobin 28.7 pg (27.0-33.0); Mean Corpuscular Volume 88.8 fL (80.0-98.0); Mean Platelet Volume 9.9 fL (9.4-12.4); Platelet Count 274 X10*3/uL (160-400); Red Cell Distribution Width 14.3 % (11.0-16.0); White Blood Count 18.4 X10*3/uL (4.8-10.8)
[2021-12-08] MEDS: Sacubitril/Valsartan 24/26 1 TAB TABLET PO ×2 (08:35→20:45)
[2021-12-08] MEDS: Pravastatin Sodium 10 MG TABLET PO (08:36)
[2021-12-08] MEDS: Mirabegron 25 MG TAB.ER.24H PO (08:36)
[2021-12-08] MEDS: Brimonidine Tartrate 0.2% Oph 5 ML BOTTLE 1 DROP EYE-BOTH ×2 (08:38→20:47)
--- NOTE | 2021-12-08 09:30 | MHC.PIE ---
PT resting quietly, denies pain. Lung sounds slightly diminished, coughing up sputum. PT seen by Dr. Butt, who want to titrate o2 and keep above 90%. PT is currently on 1L satting at 93%
[2021-12-08 10:06] LABS: Anion Gap 17 (12-20); Blood Urea Nitrogen 29 mg/dL (9-16); Calcium 9.3 mg/dL (8.4-10.2); Carbon Dioxide 29 mmol/L (22-29); Chloride 99 mmol/L (96-108); Creatinine Clr Calc Pharmacy 68.2; Estimated Glomerular Filt Rate > 60; Glucose Random 151 mg/dL (60-115); Potassium 4.4 mmol/L (3.3-5.1); Sodium 141 mmol/L (135-145)
[2021-12-08] MEDS: Doxycycline Hyclate 100 MG in 0.9 % Sodium Chloride 250 ML 166.67 MG IV ×2 (10:29→21:39)
--- NOTE | 2021-12-08 10:40 | HO.PM.IMPN ---
Subjective Subjective Date of Service: 12/08/21 Interval History: seen and examined this AM her RN interprets he reports significant improvement since hospitalization. breathing easier and less cough no reports of hemoptysis since yesterday Review of Systems negative except HPI Physical Exam Vital Signs: Vital Signs: Last Vital Signs Temp 98.2 F 12/08/21 07:41 Pulse 68 12/08/21 07:41 Resp 18 12/08/21 07:41 BP 132/66 12/08/21 07:41 Pulse Ox 95 12/08/21 07:41 O2 Del Method 12/08/21 07:41 O2 Flow Rate 2 12/08/21 07:41 BMI result Body Mass Index 24.5 Const: Other: General - no acute distress, appears comfortable Cardiovascular - regular rate and rhythm, S1-S2 Lungs - improving air entry b/l Abdomen - soft, nontender, no rebound or guarding Extremities - no edema bilaterally Neuro - awake and alert, no focal deficits Objective Data Active Medications Acetaminophen (Acetaminophen 325 Mg Tablet) 650 mg PO Q6H PRN PRN Reason: Pain, Mild (Pain Scale 1-3) Albuterol/Ipratropium (Albuterol/Iprat 2.5/0.5mg 3 Ml Ampul.Neb) 3 ml INHALE RQ4H WHILE AWAKE [facility] Last Admin: 12/08/21 07:23 Dose: 3 ml Documented By: HESHAM Brimonidine Tartrate (Brimonidine Tartrate 0.2% Oph 5 Ml Bottle) 1 drop EYE-BOTH BID [facility] Last Admin: 12/08/21 08:38 Dose: 1 drop Documented By: RUEL Carvedilol (Carvedilol 6.25 Mg Tablet) 6.25 mg PO BID [facility]; Protocol Last Admin: 12/08/21 08:30 Dose: 6.25 mg Documented By: RUEL Meropenem 1 gm/ Sodium (Chloride) 100 mls @ 200 mls/hr IV Q8H [facility] Last Infusion: 12/08/21 10:17 Dose: 200 mls/hr Documented By: TIEN Doxycycline Hyclate 100 mg/ (Sodium Chloride) 250 mls @ 166.67 mls/hr IV Q12H [facility] Last Infusion: 12/07/21 23:41 Dose: 0 mls/hr Documented By: BALDOMERO Latanoprost (Latanoprost 0.005 % Ophth Thalia 2.5 Ml Drops) 1 drop EYE-BOTH BEDTIME [facility] Last Admin: 12/08/21 00:10 Dose: Not Given Documented By: BALDOMERO Non-Admin Reason: Med Not Available Methylprednisolone Sodium Succinate (Methylprednisolone Sod Succ 40 Mg/Ml Vial) 40 mg IVPUSH Q8H [facility] Last Admin: 12/08/21 04:59 Dose: 40 mg Documented By: BALDOMERO Mirabegron (Mirabegron 25 Mg Tab.Er.24h) 25 mg PO DAILY [facility] Last Admin: 12/08/21 08:36 Dose: 25 mg Documented By: RUEL Omeprazole (Omeprazole 40 Mg Capsule.Dr) 40 mg PO DAILY@0630 [facility] Last Admin: 12/08/21 04:59 Dose: 40 mg Documented By: BALDOMERO Ondansetron HCl (Ondansetron Hcl 4 Mg/2 Ml Vial) 4 mg IVPUSH Q8H PRN PRN Reason: Nausea and Vomiting Pharmacy Consult (Consult Rx Perform Med Rec) 1 each MISCELLANE ONCE PRN PRN Reason: Consult order Pravastatin Sodium (Pravastatin Sodium 10 Mg Tablet) 10 mg PO DAILY [facility] Last Admin: 12/08/21 08:36 Dose: 10 mg Documented By: RUEL Sacubitril/Valsartan (Sacubitril/Valsartan 1 Tab Tablet) 1 tab PO BID [facility]; Protocol Last Admin: 12/08/21 08:35 Dose: 1 tab Documented By: RUEL Sodium Chloride (0.9 % Sodium Chloride Flush 3 Ml Syringe) 3 ml IVFLUSH QSHIFT [facility] Last Admin: 12/08/21 08:39 Dose: 3 ml Documented By: RUEL Timolol Maleate (Timolol Maleate 0.5 % Oph Thalia 5 Ml Drbtl) 1 drop EYE-BOTH BID [facility] Last Admin: 12/08/21 10:14 Dose: Not Given Documented By: RUEL Non-Admin Reason: Patient Refused Labs CBC & Chem 7: 12/08/21 07:57 12/08/21 07:57 Labs: Laboratory Results - last 24 hr 12/08/21 12/08/21 07:57 07:57 MCV 88.8 MCH 28.7 MCHC 32.3 RDW 14.3 Plt Count 274 MPV 9.9 Absolute Nucleated RBC 0.000 Nucleated RBC % (auto) 0.0 Anion Gap 17 Estim Creat Clear Calc 68.2 Estimated GFR > 60 Random Glucose 151 H Calcium 9.3 Microbiology Microbiology Results: Microbiology 12/07/21 00:57 Blood Culture - Preliminary Blood - Venous No growth after 24 hours. 12/07/21 00:58 Blood Culture - Preliminary Blood - Venous No growth after 24 hours. 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 He is noted to have acute respiratory failure with hypoxia, COPD exacerbation and possibly exacerbation of his underlying chronic lung disease. He will? be admitted for further work up. 1. Acute Respiratory Failure with hypoxia 1a. Severe sepsis 1b. Acute bronchiectasis exacerbation Met sepsis criteria with leukocytosis, tachycardia, tachypnea; severe features including respiratory failure requiring BIPAP Sepsis resolving continue O2 by NC -- wean as tolerated Pulm input appreciated -- continue with Merrem; if he improves, plan for 14 days course of IV carbepenam (Invanz upon d/c); if doesnt improve, may need bronch for BAL f/u cultures, plan for PICC line tomorrow 2. COPD exacerbation Continue IV q8h today; start weaning tomorrow continue updrafts 3. Hemoptysis self limited and due to 1b/2 monitor closely 3. NICM continue coreg / entresto no evidence of acute decompensation 4. 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 He is still requiring supplemental oxygen and hence, not ready for discharge. Quality Stroke Does the patient have a stroke diagnosis?: No VTE Prior VTE?: No VTE Risk Level:: Medical - moderate - high VTE Device Contraindication: N/A - Device Ordered VTE Drug Contraindication: Treatment Not Indicated
--- NOTE | 2021-12-08 13:08 | MHC.CM.PN ---
[facility] FOLLOW FOR [facility]
--- NOTE | 2021-12-08 14:35 | MHC.CM.PN ---
CM met with Patient and his Friend/Martina at bedside and addressed IMM with them, providing him with the original and placing a copy on the chart. 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 Patient has 7 hours/week of [employer] services through [facility] and home with resumption of said services is the goal. CM has initiated and will follow for dc planning. Patient has received 3 Moderna/Covid vax and his PCP is Dr. Olga Calzada.
--- NOTE | 2021-12-08 14:43 | MHC.CM.PN ---
Patient is active with [facility].
[2021-12-09] VITALS (12 sets, daily range): BP systolic 105–143; BP diastolic 55–88; PULSE 60–141; RESP 15–22; TEMP 36.6–37.5; O2SAT 94–907
--- NOTE | 2021-12-09 | ECG_ITS ---
Test Reason : tachycardia Blood Pressure : / mmHG Vent. Rate : 127 BPM Atrial Rate : 000 BPM P-R Int : 000 ms QRS Dur : 130 ms QT Int : 338 ms P-R-T Axes : 000 -63 -16 degrees QTc Int : 491 ms Atrial fibrillation with rapid ventricular response Right bundle branch block Left anterior fascicular block Bifascicular block Abnormal ECG When compared with ECG of 07-DEC-2021 00:44, Atrial fibrillation has replaced Sinus rhythm ST now depressed in Anterior leads Nonspecific T wave abnormality now evident in Inferior leads Nonspecific T wave abnormality now evident in Anterior leads Referred By: Eileen Zuniga Electronically Signed By:JULIÁN OROURKE
[2021-12-09] MEDS: methylPREDNISolone Sod Succ 40 MG/ML VIAL IVPUSH ×3 (05:20→21:09)
[2021-12-09] MEDS: Omeprazole 40 MG CAPSULE.DR PO (05:21)
[2021-12-09] MEDS: Albuterol/Iprat 2.5/0.5MG 3 ML AMPUL.NEB INHALE (08:01)
[2021-12-09] MEDS: carvediloL 6.25 MG TABLET PO ×2 (10:10→14:39)
[2021-12-09] MEDS: timoloL maleate 0.5 % Oph Sol 5 ML DRBTL 1 DROP EYE-BOTH (10:11)
[2021-12-09] MEDS: Sacubitril/Valsartan 24/26 1 TAB TABLET PO ×2 (10:11→21:26)
[2021-12-09] MEDS: Mirabegron 25 MG TAB.ER.24H PO (10:11)
[2021-12-09] MEDS: Brimonidine Tartrate 0.2% Oph 5 ML BOTTLE 1 DROP EYE-BOTH (10:11)
[2021-12-09] MEDS: Doxycycline Hyclate 100 MG in 0.9 % Sodium Chloride 250 ML 166.67 MG IV ×2 (10:40→22:24)
[2021-12-09] MEDS: 0.9 % Sodium Chloride Flush 3 ML SYRINGE IVFLUSH ×2 (10:45→15:56)
--- NOTE | 2021-12-09 11:41 | MHC.CM.PN ---
Per ROUNDS discussion, Patient will need 14 days of IV INVANZ; Patient is active with [facility], who has been notified of IVABT and a new referral has been made to [facility]. CM will follow.
--- NOTE | 2021-12-09 12:44 | P.PNIM_ITS ---
Subjective Subjective Date of Service: 12/09/21 Interval History: seen and examined this morning follow up for bronchiectasis,hemoptysis reported improvement in breathing, decreasing phlegm production - denies hemoptysis today 1pm- nurse called patient is tachycardic, HR 140s, ekg showing afib Review of Systems Review of Systems: Yes all other systems are reviewed and are negative Constitutional Constitutional: Denies chills and Denies fever(s) ENT Ears, Nose, Mouth, and Throat: Denies dizziness Cardiovascular Cardiovascular: Denies chest pain, Denies palpitations and Reports dyspnea Respiratory Respiratory: Reports cough and Reports dyspnea Gastrointestinal Gastrointestinal: Denies abdominal pain, Denies nausea and Denies vomiting Neurologic Neurologic: Denies dizziness Endocrine Endocrine: Denies palpitations Physical Exam Vital Signs: Vital Signs: Last Vital Signs Temp 98.0 F 12/09/21 11:09 Pulse 74 12/09/21 11:09 Resp 20 12/09/21 11:09 BP 143/67 H 12/09/21 11:09 Pulse Ox 94 12/09/21 11:09 O2 Del Method 12/09/21 11:09 O2 Flow Rate 1 12/09/21 11:09 BMI result Body Mass Index 24.5 Const: General: cooperative, comfortable, alert and awake Nutritional Appearance: average body habitus Orientation/consciousness: patient oriented x3 Resp: Other: course breath sounds Effort & Inspection: normal respiratory effort, able to speak in complete sentences and no use of accessory muscles Auscultation: diminished lung sounds Cardio: Rate: regular rate Heart sounds: S1 normal heart sound present and S2 normal heart sound present GI: Inspection: No distended Palpation (GI): Soft to palpation and nontender Neuro: General: patient oriented x3 and CN's II-XI intact bilaterally Extrem: General: Yes no pedal edema Objective Data Active Medications Acetaminophen (Acetaminophen 325 Mg Tablet) 650 mg PO Q6H PRN PRN Reason: Pain, Mild (Pain Scale 1-3) Albuterol/Ipratropium (Albuterol/Iprat 2.5/0.5mg 3 Ml Ampul.Neb) 3 ml INHALE RQ4H WHILE AWAKE [facility] Last Admin: 12/09/21 08:01 Dose: 3 ml Documented By: HESHAM Brimonidine Tartrate (Brimonidine Tartrate 0.2% Oph 5 Ml Bottle) 1 drop EYE- BOTH BID [facility] Last Admin: 12/09/21 10:11 Dose: 1 drop Documented By: SUMAN Carvedilol (Carvedilol 6.25 Mg Tablet) 6.25 mg PO BID [facility]; Protocol Last Admin: 12/09/21 10:10 Dose: 6.25 mg Documented By: SUMAN Meropenem 1 gm/ Sodium (Chloride) 100 mls @ 200 mls/hr IV Q8H [facility] Last Infusion: 12/09/21 05:56 Dose: 200 mls/hr Documented By: HARIS Doxycycline Hyclate 100 mg/ (Sodium Chloride) 250 mls @ 166.67 mls/hr IV Q12H [facility] Last Infusion: 12/09/21 12:41 Dose: 0 mls/hr Documented By: SUMAN Latanoprost (Latanoprost 0.005 % Ophth Thalia 2.5 Ml Drops) 1 drop EYE-BOTH BEDTIME [facility] Last Admin: 12/08/21 21:05 Dose: Not Given Documented By: ROBERT Non-Admin Reason: Patient Refused Methylprednisolone Sodium Succinate (Methylprednisolone Sod Succ 40 Mg/Ml Vial) 40 mg IVPUSH Q8H [facility] Last Admin: 12/09/21 05:20 Dose: 40 mg Documented By: HARIS Mirabegron (Mirabegron 25 Mg Tab.Er.24h) 25 mg PO DAILY [facility] Last Admin: 12/09/21 10:11 Dose: 25 mg Documented By: SUMAN Omeprazole (Omeprazole 40 Mg Capsule.Dr) 40 mg PO DAILY@0630 [facility] Last Admin: 12/09/21 05:21 Dose: 40 mg Documented By: HARIS Ondansetron HCl (Ondansetron Hcl 4 Mg/2 Ml Vial) 4 mg IVPUSH Q8H PRN PRN Reason: Nausea and Vomiting Pharmacy Consult (Consult Rx Perform Med Rec) 1 each MISCELLANE ONCE PRN PRN Reason: Consult order Pravastatin Sodium (Pravastatin Sodium 10 Mg Tablet) 10 mg PO DAILY [facility] Last Admin: 12/09/21 12:41 Dose: Not Given Documented By: SUMAN Non-Admin Reason: Med Not Available Sacubitril/Valsartan (Sacubitril/Valsartan 1 Tab Tablet) 1 tab PO BID [facility]; Protocol Last Admin: 12/09/21 10:11 Dose: 1 tab Documented By: SUMAN Sodium Chloride (0.9 % Sodium Chloride Flush 3 Ml Syringe) 3 ml IVFLUSH QSHIFT [facility] Last Admin: 12/09/21 10:45 Dose: 3 ml Documented By: SUMAN Timolol Maleate (Timolol Maleate 0.5 % Oph Thalia 5 Ml Drbtl) 1 drop EYE-BOTH BID [facility] Last Admin: 12/09/21 10:11 Dose: 1 drop Documented By: SUMAN Labs CBC & Chem 7: 12/08/21 07:57 12/08/21 07:57 Microbiology Microbiology Results: Microbiology 12/07/21 00:57 Blood Culture - Preliminary Blood - Venous No growth after 48 hours. 12/07/21 00:58 Blood Culture - Preliminary Blood - Venous No growth after 48 hours. 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 He is noted to have acute respiratory failure with hypoxia, COPD exacerbation and possibly exacerbation of his underlying chronic lung disease. He will? be admitted for further work up. Acute Respiratory Failure with hypoxia Severe sepsis secondary to Acute bronchiectasis exacerbation Met sepsis criteria with leukocytosis, tachycardia, tachypnea; severe features including respiratory failure requiring BIPAP Sepsis resolving continue O2 by NC -- wean as tolerated Pulm input appreciated - continue with Merrem; if he improves, plan for 14 days course of IV carbepenam (Invanz upon d/c); if doesnt improve, may need bronch for BAL blood cultures negative to date plan for midline placement new onset atrial fibrillation with RVR will give one dose of IV lopressor, if no response will start cardizem drip -echo -check TSH, magnesium -cardiology consult -continue tele monitoring -will hold off on AC for now due to hemoptysis, will discuss with Cardiology COPD exacerbation will start to wean [facility] Hemoptysis self limited and due to bronchiectasis monitor closely NICM continue coreg / entresto no evidence of acute decompensation GERD PPI Full Code DVT pptx -- mechanical due to hemoptysis attending - dr. 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
--- NOTE | 2021-12-09 13:01 | CA_ITS ---
Transthoracic Echocardiogram Patient (Last, First, Middle): Yao Herman A Gender: Male Date of : 1940 Age: 81 Procedure Date: 12/09/2021 Procedure Type: Transthoracic Echocardiogram Location: OP Height: 170.18 cm Weight: 71.22 kg BSA: 1.82 m2 Heart Rate: 100 bpm BP: 143 / 67 mmHg [employer] Consultant: JOSE Referring MD: Eileen BRUNSON Symptoms: new afib Study Quality: Adequate ECG Rhythm: Atrial Fibrillation Conclusions: - Normal left ventricular cavity size. There is mildly increased left ventricular wall thickness. The left ventricular systolic function is low normal. The visually estimated ejection fraction is between 50-55%. - Normal right ventricular cavity size and systolic function. - Technically very limited study. Findings Left Ventricle Normal left ventricular cavity size. There is mildly increased left ventricular wall thickness. The left ventricular systolic function is low normal. The visually estimated ejection fraction is between 50-55%. There is no evidence of regional wall motion abnormalities. Diastolic function is indeterminate on the basis of available data. Right Ventricle Normal right ventricular cavity size and systolic function. Atria The left atrium is normal in size. Aortic Valve The aortic valve was not well visualized. There is no aortic valve stenosis. There is trace (trivial) aortic valve regurgitation. Mitral Valve Likely normal mitral valve structure and function. There is no mitral valve regurgitation. There is no mitral valve stenosis. Pulmonic Valve The pulmonic valve was not well visualized. Tricuspid Valve The tricuspid valve was not well visualized. Normal right atrial pressure. There is no evidence of pulmonary hypertension. Great Vessels The aorta was not well visualized. The pulmonary artery was not well visualized. Venous The inferior vena cava is normal in size and collapses greater than 50% with inspiration. Pericardium/Pleural Prominent epicardial adipose tissue noted. There is no evidence of pericardial effusion. Measurements 2D Linear Measurements IVSd: 1.14 0.6-0.9/0.6-1.0 cm LVIDd: 4.00 3.9-5.3/4.2-5.9 cm LVIDd Index: 2.20 2.4-3.2/2.2-3.1 cm/m2 LVIDs: 2.43 2.0-3.6 cm LVPWd: 1.19 0.7-1.1 cm LA Diam: 3.20 2.7-3.8/3.0-4.0 cm LAIDs Index: 1.76 1.5-2.3 cm/m2 LV Mass: 197.22 67-162/88-224 g LV Mass Index: 108.36 43-95/49-115 g/m2 LVOT Diam: 2.10 3.0+(-)1.3 cm 2D Systolic Function EF 4C: 46.00 >55% EF 2C: 35.40 >55% Mitral Valve MV Pk E: 0.92 MV Decel Time: 103.00 PHT: 30.00 MVA PHT: 7.33 Decel [place]: 8.99 Aortic Valve AoV Pk Darren: 1.40 AoV Mn Darren: 0.98 AoV VTI: 0.20 AoV Pk Grad: 8.00 Aov Mn Grad: 5.00 DULCE Cont.VTI: 2.27 LVOT LVOT Pk Darren: 0.93 LVOT Mn Darren: 0.60 LVOT VTI: 0.13 LVOT Pk Grad: 3.00 LVOT Mn Grad: 2.00 LVOT Diam: 2.10 LVOT Area: 3.46 Diastolic Function MV Pk E: 0.92 Right Ventricle TAPSE (mm): 23.30 TVS' Darren: 13.30 Tricuspid Valve TR Pk Darren: 2.46 TR Pk Grad: 24.00 RA Press: 3.00 RVSP: 27.00 Great Vessels Aorta Sinus of Valsalva: 3.90 2.0-3.5 cm Ao Asc: 3.70 2.1-3.4 cm Pulmonary Valve PV Pk Darren: 0.92 Peak PV Grad: 3.00 Updated in Other Vendor System with Status of Final Eduard Manning MD electronically signed on 12/09/2021 8:15:14 PM with status of Final
[2021-12-09] MEDS: Metoprolol Tartrate 5 MG/5 ML VIAL IVPUSH (13:07)
[2021-12-09 13:23] LABS: Magnesium 2.4 mg/dL (1.6-2.6)
[2021-12-09 14:39] LABS: Hematocrit 47.4 % (42.0-52.0); Hemoglobin 15.1 g/dl (14.0-18.0); Mean Corpuscular HGB Conc 31.9 g/dl (31.0-36.0); Mean Corpuscular Hemoglobin 28.2 pg (27.0-33.0); Mean Corpuscular Volume 88.6 fL (80.0-98.0); Mean Platelet Volume 9.9 fL (9.4-12.4); Platelet Count 256 X10*3/uL (160-400); Red Blood Count 5.35 X10*6/uL (4.60-5.80); Red Cell Distribution Width 14.5 % (11.0-16.0); White Blood Count 16.5 X10*3/uL (4.8-10.8)
[2021-12-09 15:12] LABS: TSH reflex Free T4 0.23 uIU/mL (0.32-4.0)
--- NOTE | 2021-12-09 15:21 | PC.NURSE ---
1235- Patient HR noted to be 120-140s on monitor. Patient denies feeling heart race, chest pain, dizziness. Eileen Zuniga MAIL READER made aware, EKG ordered. 1300- 5mg IV lopressor given. 1400- Patient HR 100-110s on monitor. BP 121/73. Patient continue to be asymptomatic. MAIL READER updated. Meds adjusted per EMAR.
[2021-12-09 15:53] LABS: Free T4 (Free Thyroxine) 1.02 ng/dL (0.71-1.85)
--- NOTE | 2021-12-09 20:43 | HO.MIDLINE ---
Midline Insertion MIDLINE INSERTION Diagnosis: Sepsis Indication: antibiotics needed Pertinent Labs: Technique: Using sterile technique including cap and mask, glove and drape, the right arm was prepped and draped in the usual sterile fashion of full barrier technique with CHG. Using ultrasound guidance, right cephalic vein access was obtained twice by Alvaro Ramirez, but unable to pass guidewire. Right Cephalic vein was accessed multiple times by Michael Gould RN, but unable to pass guidewire. Right brachial vein was accessed multiple times by Michael Gould RN, but unable to pass guidewire. Eileen Zuniga notified by [employer] message. Arm Circumference 30 CM
[2021-12-09] MEDS: carvediloL 12.5 MG TABLET PO (21:09)
[2021-12-09] MEDS: Latanoprost 0.005 % Ophth Sol 2.5 ML DROPS 1 DROP EYE-BOTH (21:09)
--- NOTE | 2021-12-09 21:27 | PC.NURSE ---
pt went to IR for PICC line this afternoon , as per IR report they coudn't place PICC line .
[2021-12-10] VITALS (9 sets, daily range): BP systolic 99–138; BP diastolic 55–80; PULSE 78–105; RESP 16–188; TEMP 36.2–36.9; O2SAT 89–100
[2021-12-10] MEDS: 0.9 % Sodium Chloride Flush 3 ML SYRINGE IVFLUSH ×3 (00:43→20:19)
[2021-12-10] MEDS: Omeprazole 40 MG CAPSULE.DR PO (05:33)
[2021-12-10 06:43] LABS: Hematocrit 44.8 % (42.0-52.0); Mean Corpuscular HGB Conc 31.3 g/dl (31.0-36.0); Mean Corpuscular Hemoglobin 27.9 pg (27.0-33.0); Mean Corpuscular Volume 89.4 fL (80.0-98.0); Mean Platelet Volume 9.9 fL (9.4-12.4); Platelet Count 246 X10*3/uL (160-400); Red Blood Count 5.01 X10*6/uL (4.60-5.80); Red Cell Distribution Width 14.5 % (11.0-16.0); White Blood Count 17.2 X10*3/uL (4.8-10.8)
[2021-12-10 07:27] LABS: Anion Gap 15 (12-20); Blood Urea Nitrogen 28 mg/dL (9-16); Calcium 8.6 mg/dL (8.4-10.2); Carbon Dioxide 27 mmol/L (22-29); Chloride 105 mmol/L (96-108); Creatinine Clr Calc Pharmacy 71.7; Estimated Glomerular Filt Rate > 60; Glucose Random 199 mg/dL (60-115); Potassium 4.7 mmol/L (3.3-5.1); Sodium 142 mmol/L (135-145)
[2021-12-10] MEDS: Albuterol/Iprat 2.5/0.5MG 3 ML AMPUL.NEB INHALE ×4 (07:46→19:09)
[2021-12-10] MEDS: Mirabegron 25 MG TAB.ER.24H PO (09:44)
[2021-12-10] MEDS: carvediloL 12.5 MG TABLET PO ×2 (09:44→20:19)
[2021-12-10] MEDS: Sacubitril/Valsartan 24/26 1 TAB TABLET PO ×2 (09:44→20:19)
[2021-12-10] MEDS: methylPREDNISolone Sod Succ 40 MG/ML VIAL IVPUSH ×2 (09:45→20:19)
[2021-12-10] MEDS: Doxycycline Hyclate 100 MG in 0.9 % Sodium Chloride 250 ML 166.67 MG IV ×2 (09:45→22:15)
[2021-12-10] MEDS: Brimonidine Tartrate 0.2% Oph 5 ML BOTTLE 1 DROP EYE-BOTH ×2 (09:50→20:19)
[2021-12-10] MEDS: timoloL maleate 0.5 % Oph Sol 5 ML DRBTL 1 DROP EYE-BOTH ×2 (09:50→20:19)
[2021-12-10] MEDS: Pravastatin Sodium 10 MG TABLET PO (10:36)
--- NOTE | 2021-12-10 13:11 | HO.PM.IMPN ---
Subjective Subjective Date of Service: 12/10/21 Interval History: seen and examined this morning Follow-up for flair of bronchiectasis, hemoptysis still with some dyspnea on exertion. No shortness of breath at rest, cough improving phlegm decreasing. No hemoptysis today heart rate remained controlled overnight Review of Systems Review of Systems: Yes all other systems are reviewed and are negative Constitutional Constitutional: Denies chills and Denies fever(s) Cardiovascular Cardiovascular: Denies chest pain, Denies palpitations and Reports dyspnea on exertion Respiratory Respiratory: Reports cough and Reports dyspnea on exertion Gastrointestinal Gastrointestinal: Denies abdominal pain, Denies nausea and Denies vomiting Endocrine Endocrine: Denies palpitations Physical Exam Vital Signs: Vital Signs: Last Vital Signs Temp 97.2 F 12/10/21 07:56 Pulse 83 12/10/21 11:44 Resp 16 12/10/21 11:44 BP 124/80 12/10/21 07:56 Pulse Ox 98 12/10/21 07:56 O2 Del Method 12/10/21 07:56 O2 Flow Rate 3 12/10/21 03:19 BMI result Body Mass Index 24.5 Const: General: cooperative, comfortable, alert and awake Nutritional Appearance: average body habitus Orientation/consciousness: patient oriented x3 Resp: Other: course breath sounds Effort & Inspection: normal respiratory effort, able to speak in complete sentences and no use of accessory muscles Auscultation: diminished lung sounds Cardio: Rate: regular rate Heart sounds: S1 normal heart sound present and S2 normal heart sound present GI: Inspection: No distended Palpation (GI): Soft to palpation and nontender Neuro: General: patient oriented x3 and CN's II-XI intact bilaterally Extrem: General: Yes no pedal edema Objective Data Active Medications Acetaminophen (Acetaminophen 325 Mg Tablet) 650 mg PO Q6H PRN PRN Reason: Pain, Mild (Pain Scale 1-3) Albuterol/Ipratropium (Albuterol/Iprat 2.5/0.5mg 3 Ml Ampul.Neb) 3 ml INHALE RQ4H WHILE AWAKE [facility] Last Admin: 12/10/21 11:43 Dose: 3 ml Documented By: SHAHID Brimonidine Tartrate (Brimonidine Tartrate 0.2% Oph 5 Ml Bottle) 1 drop EYE-BOTH BID [facility] Last Admin: 12/10/21 09:50 Dose: 1 drop Documented By: JENA Carvedilol (Carvedilol 12.5 Mg Tablet) 12.5 mg PO BID [facility]; Protocol Last Admin: 12/10/21 09:44 Dose: 12.5 mg Documented By: JENA Meropenem 1 gm/ Sodium (Chloride) 100 mls @ 200 mls/hr IV Q8H [facility] Last Infusion: 12/10/21 06:07 Dose: 0 mls/hr Documented By: JAYLON Doxycycline Hyclate 100 mg/ (Sodium Chloride) 250 mls @ 166.67 mls/hr IV Q12H [facility] Last Infusion: 12/10/21 11:31 Dose: 0 mls/hr Documented By: JENA Latanoprost (Latanoprost 0.005 % Ophth Thalia 2.5 Ml Drops) 1 drop EYE-BOTH BEDTIME [facility] Last Admin: 12/09/21 21:09 Dose: 1 drop Documented By: ADONIS Methylprednisolone Sodium Succinate (Methylprednisolone Sod Succ 40 Mg/Ml Vial) 40 mg IVPUSH BID [facility] Last Admin: 12/10/21 09:45 Dose: 40 mg Documented By: JENA Mirabegron (Mirabegron 25 Mg Tab.Er.24h) 25 mg PO DAILY [facility] [place] Last Admin: 12/10/21 09:44 Dose: 25 mg Documented By: JENA Omeprazole (Omeprazole 40 Mg Capsule.Dr) 40 mg PO DAILY@0630 [facility] Last Admin: 12/10/21 05:33 Dose: 40 mg Documented By: JAYLON Ondansetron HCl (Ondansetron Hcl 4 Mg/2 Ml Vial) 4 mg IVPUSH Q8H PRN PRN Reason: Nausea and Vomiting Pharmacy Consult (Consult Rx Perform Med Rec) 1 each MISCELLANE ONCE PRN PRN Reason: Consult order Pravastatin Sodium (Pravastatin Sodium 10 Mg Tablet) 10 mg PO DAILY [facility] [place] Last Admin: 12/10/21 10:36 Dose: 10 mg Documented By: JENA Sacubitril/Valsartan (Sacubitril/Valsartan 1 Tab Tablet) 1 tab PO BID [facility] [place]; Protocol Last Admin: 12/10/21 09:44 Dose: 1 tab Documented By: JENA Sodium Chloride (0.9 % Sodium Chloride Flush 3 Ml Syringe) 3 ml IVFLUSH QSHIFT [facility] [place] Last Admin: 12/10/21 09:45 Dose: 3 ml Documented By: JENA Timolol Maleate (Timolol Maleate 0.5 % Oph Thalia 5 Ml Drbtl) 1 drop EYE-BOTH BID [facility] [place] Last Admin: 12/10/21 09:50 Dose: 1 drop Documented By: JENA Labs CBC & Chem 7: 12/10/21 06:10 12/10/21 06:10 Labs: Laboratory Results - last 24 hr 12/08/21 12/09/21 12/09/21 07:57 14:16 14:16 MCV 88.6 MCH 28.2 MCHC 31.9 RDW 14.5 Plt Count 256 MPV 9.9 Absolute Nucleated RBC 0.000 Nucleated RBC % (auto) 0.0 Anion Gap Estim Creat Clear Calc Estimated GFR Random Glucose Calcium Magnesium 2.4 TSH 0.23 L Free T4 1.02 12/10/21 12/10/21 06:10 06:10 MCV 89.4 MCH 27.9 MCHC 31.3 RDW 14.5 Plt Count 246 MPV 9.9 Absolute Nucleated RBC 0.000 Nucleated RBC % (auto) 0.0 Anion Gap 15 Estim Creat Clear Calc 71.7 Estimated GFR > 60 Random Glucose 199 H Calcium 8.6 D Magnesium TSH Free T4 Assessment and Plan (1) New onset atrial fibrillation: Status: Acute Plan This is a 81 year old male with a PMH of COPD, bronchieactasis, JESSA infection - s/p treatment, 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 He is noted to have acute respiratory failure with hypoxia, COPD exacerbation and possibly exacerbation of his underlying chronic lung disease. He will? be admitted for further work up. Acute Respiratory Failure with hypoxia Severe sepsis secondary to Acute bronchiectasis exacerbation Met sepsis criteria with leukocytosis, tachycardia, tachypnea; severe features including respiratory failure requiring BIPAP Sepsis resolving continue O2 by NC -- wean as tolerated Pulm input appreciated - continue with Merrem; if he improves, plan for 14 days course of IV carbepenam (Invanz upon d/c); if doesnt improve, may need bronch for BAL blood cultures negative to date IR nurses were unable to place midline 12/09, will need IR placement of midline Sunday new onset atrial fibrillation with RVR given one dose of IV lopressor, dose of coreg increased. HR controlled overnight echo with preserved EF magnesium wnl, TSH slightly low, free T4 wnl -cardiology consult -continue tele monitoring -will hold off on AC for now due to hemoptysis, will discuss with Cardiology COPD exacerbation will start to wean [facility] Hemoptysis self limited and due to bronchiectasis monitor closely NICM continue coreg / entresto no evidence of acute decompensation GERD PPI Full Code DVT pptx -- mechanical due to hemoptysis attending - dr. 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
--- NOTE | 2021-12-10 13:36 | MHC.CM.PN ---
pt will not have picc till tuesday 12/12
--- NOTE | 2021-12-10 14:18 | PM.CNCAR ---
History of Present Illness History of Present Illness Date of Service: 12/10/21 Requesting physician: Eileen Zuniga Chief complaint: New onset Afib Narrative: 81-year-old gentleman who has background history of COPD, bronchiectasis, gastroesophageal reflux disease, hyperlipidemia, nonischemic cardiomyopathy for which he has been on medication and by echocardiography on this admission his ejection fraction is 50-55%. He had presented with respiratory distress and shortness of breath and was diagnosed with exacerbation of COPD/bronchiectasis. He has been on antibiotics and steroids. He also developed AFib with RVR. He was also coughing of blood and had episodes of hemoptysis. He is saying he continues to have blood in his sputum and he showed me his sputum from this morning which had blood mixed with sputum. There is no milla bleeding or copious amount of blood present. He has been on carvedilol and heart rates are reasonably controlled currently. He was not started on anticoagulation because of hemoptysis. He is denying any symptoms currently. As mentioned is still coughing up some blood. [facility] Past Medical History Medical History Bronchiectasis Bronchitis Bronchitis Congestive heart failure COPD (chronic obstructive pulmonary disease) COPD (chronic obstructive pulmonary disease) COPD exacerbation Essential hypertension GERD (gastroesophageal reflux disease) Glaucoma Hearing loss Hernia History of MAC infection Hypoxia JESSA (mycobacterium avium-intracellulare) Medicare annual wellness visit, initial Medicare annual wellness visit, subsequent NICM (nonischemic cardiomyopathy) Pure hypercholesterolemia Family History Family History Father No problems noted. Mother Medical history unknown Sister Diabetes Daughter In good health Son In good health Brother No problems noted. Surgical History Surgical History History of cystoscopy History of lumbar surgery History of rectal polypectomy Social History Social History Household Members: None Housing: Apartment Alcohol intake: unknown Patient Tobacco Use Status: Former Tobacco user Quit Date: 6 years ago e-Cigarette/Vaping Use: Never Used Second Hand Smoke Exposure: No Advance Directives Date on File: 07/12/21 service: No Current occupational status: disabled Cognitive needs: No Hearing needs: No Vision needs: No Meds Allergies Allergy/AdvReac Type Severity Reaction Status Date / Time Penicillins [PENICILLINS] Allergy Intermediate PASSED Verified 11/30/21 13:33 OUT trazodone Allergy Intermediate tremors Verified 11/30/21 13:33 Active Medications: Current Medications Acetaminophen (Acetaminophen 325 Mg Tablet) 650 mg PO Q6H PRN PRN Reason: Pain, Mild (Pain Scale 1-3) Albuterol/Ipratropium (Albuterol/Iprat 2.5/0.5mg 3 Ml Ampul.Neb) 3 ml INHALE RQ4H WHILE AWAKE [facility] Last Admin: 12/10/21 11:43 Dose: 3 ml Brimonidine Tartrate (Brimonidine Tartrate 0.2% Oph 5 Ml Bottle) 1 drop EYE-BOTH BID [facility] Last Admin: 12/10/21 09:50 Dose: 1 drop Carvedilol (Carvedilol 12.5 Mg Tablet) 12.5 mg PO BID [facility]; Protocol Last Admin: 12/10/21 09:44 Dose: 12.5 mg Meropenem 1 gm/ Sodium (Chloride) 100 mls @ 200 mls/hr IV Q8H [facility] Last Infusion: 12/10/21 06:07 Dose: Infused Doxycycline Hyclate 100 mg/ (Sodium Chloride) 250 mls @ 166.67 mls/hr IV Q12H [facility] Last Infusion: 12/10/21 11:31 Dose: Infused Latanoprost (Latanoprost 0.005 % Ophth Thalia 2.5 Ml Drops) 1 drop EYE-BOTH BEDTIME [facility] Last Admin: 12/09/21 21:09 Dose: 1 drop Methylprednisolone Sodium Succinate (Methylprednisolone Sod Succ 40 Mg/Ml Vial) 40 mg IVPUSH BID [facility] Last Admin: 12/10/21 09:45 Dose: 40 mg Mirabegron (Mirabegron 25 Mg Tab.Er.24h) 25 mg PO DAILY [facility] Last Admin: 12/10/21 09:44 Dose: 25 mg Omeprazole (Omeprazole 40 Mg Capsule.Dr) 40 mg PO DAILY@0630 [facility] Last Admin: 12/10/21 05:33 Dose: 40 mg Ondansetron HCl (Ondansetron Hcl 4 Mg/2 Ml Vial) 4 mg IVPUSH Q8H PRN PRN Reason: Nausea and Vomiting Pharmacy Consult (Consult Rx Perform Med Rec) 1 each MISCELLANE ONCE PRN PRN Reason: Consult order Pravastatin Sodium (Pravastatin Sodium 10 Mg Tablet) 10 mg PO DAILY [facility] Last Admin: 12/10/21 10:36 Dose: 10 mg Sacubitril/Valsartan (Sacubitril/Valsartan 1 Tab Tablet) 1 tab PO BID [facility]; Protocol Last Admin: 12/10/21 09:44 Dose: 1 tab Sodium Chloride (0.9 % Sodium Chloride Flush 3 Ml Syringe) 3 ml IVFLUSH QSHIFT [facility] Last Admin: 12/10/21 09:45 Dose: 3 ml Timolol Maleate (Timolol Maleate 0.5 % Oph Thalia 5 Ml Drbtl) 1 drop EYE-BOTH BID [facility] Last Admin: 12/10/21 09:50 Dose: 1 drop Home Medications Medication Instructions Recorded Confirmed Last Taken Type brimonidine 0.2 %-timolol 0.5 % 1 drp ophthalmic (eye) BID 03/08/21 12/07/21 03/07/21 History eye drops (Combigan) travoprost 0.004 % eye drops 1 drp ophthalmic (eye) BEDTIME 03/08/21 12/07/21 03/07/21 History prednisone 5 mg tablet 2 tab PO DAILY 12/07/21 12/07/21 Unknown History Physical Exam Vital Signs: Vital Signs: Last Vital Signs Temp 97.2 F 12/10/21 07:56 Pulse 83 12/10/21 11:44 Resp 16 12/10/21 11:44 BP 124/80 12/10/21 07:56 Pulse Ox 98 12/10/21 07:56 O2 Del Method 12/10/21 07:56 O2 Flow Rate 3 12/10/21 03:19 BMI result Body Mass Index 24.5 GENERAL APPEARANCE: in no acute distress, pleasant. NECK: no carotid bruit, no jugular venous distention. SKIN: no suspicious lesions, warm and dry. HEART: no murmurs, irregular rate and rhythm. LUNGS: clear to auscultation bilaterally. ABDOMEN: soft, nontender. EXTREMITIES: no edema. PERIPHERAL PULSES: equal. NEUROLOGIC: No gross deficits, AAO X 3 Objective Labs and Meds Result diagrams: 12/10/21 06:10 12/10/21 06:10 Lab results: Laboratory Results - last 24 hr 12/09/21 12/09/21 12/10/21 14:16 14:16 06:10 WBC 16.5 H 17.2 H RBC 5.35 5.01 Hgb 15.1 14.0 Hct 47.4 44.8 MCV 88.6 89.4 MCH 28.2 27.9 MCHC 31.9 31.3 RDW 14.5 14.5 Plt Count 256 246 MPV 9.9 9.9 Absolute Nucleated RBC 0.000 0.000 Nucleated RBC % (auto) 0.0 0.0 Sodium Potassium Chloride Carbon Dioxide Anion Gap BUN Creatinine Estim Creat Clear Calc Estimated GFR Random Glucose Calcium TSH 0.23 L Free T4 1.02 12/10/21 06:10 WBC RBC Hgb Hct MCV MCH MCHC RDW Plt Count MPV Absolute Nucleated RBC Nucleated RBC % (auto) Sodium 142 Potassium 4.7 Chloride 105 Carbon Dioxide 27 Anion Gap 15 BUN 28 H Creatinine 0.78 Estim Creat Clear Calc 71.7 Estimated GFR > 60 Random Glucose 199 H Calcium 8.6 D TSH Free T4 Assessment and Plan (1) New onset atrial fibrillation: Status: Acute Plan Pleasant 81 gentleman with new onset intervention on background of nonischemic cardiomyopathy. His ejection fraction improved on medications to 50-55% on echocardiography done on this admission. Clinically not in heart failure currently. He is on carvedilol and heart rates are reasonably controlled. If he has tachycardia then he can be loaded with digoxin and can be started on digoxin 0.125 mg every other day. Currently with hemoptysis it is challenging to start him on anticoagulation. I would avoid that for now. As his infection improves and his sputum clears up then we can discuss anticoagulation. His chads Vasc score is high and would benefit from anticoagulation if it can be safely started. Thank you for allowing me to participate in the care of your patient. Please feel free to contact me if you have any questions. Procedures Date of Service Date of Service: 12/10/21
[2021-12-10] MEDS: Latanoprost 0.005 % Ophth Sol 2.5 ML DROPS 1 DROP EYE-BOTH (20:19)
[2021-12-11] VITALS (9 sets, daily range): BP systolic 111–165; BP diastolic 60–89; PULSE 65–80; RESP 12–18; TEMP 36.1–36.8; O2SAT 97–100
[2021-12-11] MEDS: Omeprazole 40 MG CAPSULE.DR PO (05:25)
[2021-12-11] MEDS: Albuterol/Iprat 2.5/0.5MG 3 ML AMPUL.NEB INHALE ×3 (07:26→15:27)
[2021-12-11] MEDS: carvediloL 12.5 MG TABLET PO ×2 (09:14→21:45)
[2021-12-11] MEDS: Pravastatin Sodium 10 MG TABLET PO (09:15)
[2021-12-11] MEDS: methylPREDNISolone Sod Succ 40 MG/ML VIAL IVPUSH (09:15)
[2021-12-11] MEDS: Mirabegron 25 MG TAB.ER.24H PO (09:15)
[2021-12-11] MEDS: Sacubitril/Valsartan 24/26 1 TAB TABLET PO ×2 (09:15→21:45)
[2021-12-11] MEDS: 0.9 % Sodium Chloride Flush 3 ML SYRINGE IVFLUSH ×3 (09:15→21:45)
[2021-12-11] MEDS: Doxycycline Hyclate 100 MG in 0.9 % Sodium Chloride 250 ML 166.67 MG IV (09:17)
--- NOTE | 2021-12-11 12:10 | P.PNIM_ITS ---
Subjective Subjective Date of Service: 12/11/21 Interval History: seen and examined this morning Follow-up for bronchiectasis History obtained with the use of a Cambodian intepreter patient denies shortness of breath at rest, some sob with movement. Reports improvement in his cough although still bringing up some phlegm streaked with blood. No fever, no chills Review of Systems Review of Systems: Yes all other systems are reviewed and are negative Constitutional Constitutional: Denies chills and Denies fever(s) ENT Ears, Nose, Mouth, and Throat: Denies dizziness Cardiovascular Cardiovascular: Denies chest pain, Denies palpitations, Denies dyspnea and Reports dyspnea on exertion Respiratory Respiratory: Reports cough, Denies dyspnea and Reports dyspnea on exertion Gastrointestinal Gastrointestinal: Denies abdominal pain Neurologic Neurologic: Denies dizziness Endocrine Endocrine: Denies palpitations Physical Exam Vital Signs: Vital Signs: Last Vital Signs Temp 98.0 F 12/11/21 11:48 Pulse 65 12/11/21 11:48 Resp 12 12/11/21 11:48 BP 151/81 H 12/11/21 11:48 Pulse Ox 82 L 12/11/21 11:48 O2 Del Method 12/11/21 11:48 O2 Flow Rate 3 12/11/21 11:48 BMI result Body Mass Index 24.5 Const: General: cooperative, comfortable, alert and awake Nutritional Appearance: average body habitus Orientation/consciousness: patient oriented x3 Resp: Other: course breath sounds Effort & Inspection: normal respiratory effort, able to speak in complete sentences and no use of accessory muscles Cardio: Rate: regular rate Heart sounds: S1 normal heart sound present and S2 normal heart sound present GI: Inspection: No distended Palpation (GI): Soft to palpation and nontender Neuro: General: patient oriented x3 and CN's II-XI intact bilaterally Extrem: General: Yes no pedal edema Objective Data Active Medications Acetaminophen (Acetaminophen 325 Mg Tablet) 650 mg PO Q6H PRN PRN Reason: Pain, Mild (Pain Scale 1-3) Albuterol/Ipratropium (Albuterol/Iprat 2.5/0.5mg 3 Ml Ampul.Neb) 3 ml INHALE RQ4H WHILE AWAKE [facility] Last Admin: 12/11/21 11:20 Dose: 3 ml Documented By: SARAY Brimonidine Tartrate (Brimonidine Tartrate 0.2% Oph 5 Ml Bottle) 1 drop EYE- BOTH BID [facility] Last Admin: 12/11/21 09:17 Dose: Not Given Documented By: KATI Non-Admin Reason: Patient Refused Carvedilol (Carvedilol 12.5 Mg Tablet) 12.5 mg PO BID [facility]; Protocol Last Admin: 12/11/21 09:14 Dose: 12.5 mg Documented By: KATI Doxycycline Hyclate 100 mg/ (Sodium Chloride) 250 mls @ 166.67 mls/hr IV Q12H [facility] Last Infusion: 12/11/21 11:17 Dose: 166.67 mls/hr Documented By: KATI Meropenem 1 gm/ Sodium (Chloride) 100 mls @ 200 mls/hr IV Q8H [facility] Last Infusion: 12/11/21 02:20 Dose: 0 mls/hr Documented By: KEENAN Latanoprost (Latanoprost 0.005 % Ophth Thalia 2.5 Ml Drops) 1 drop EYE-BOTH BEDTIME [facility] Last Admin: 12/10/21 20:19 Dose: 1 drop Documented By: KEENAN Methylprednisolone Sodium Succinate (Methylprednisolone Sod Succ 40 Mg/Ml Vial) 40 mg IVPUSH BID [facility] Last Admin: 12/11/21 09:15 Dose: 40 mg Documented By: KATI Mirabegron (Mirabegron 25 Mg Tab.Er.24h) 25 mg PO DAILY [facility] Last Admin: 12/11/21 09:15 Dose: 25 mg Documented By: KATI Omeprazole (Omeprazole 40 Mg Capsule.Dr) 40 mg PO DAILY@0630 [facility] Last Admin: 12/11/21 05:25 Dose: 40 mg Documented By: KEENAN Ondansetron HCl (Ondansetron Hcl 4 Mg/2 Ml Vial) 4 mg IVPUSH Q8H PRN PRN Reason: Nausea and Vomiting Pharmacy Consult (Consult Rx Perform Med Rec) 1 each MISCELLANE ONCE PRN PRN Reason: Consult order Pravastatin Sodium (Pravastatin Sodium 10 Mg Tablet) 10 mg PO DAILY [facility] Last Admin: 12/11/21 09:15 Dose: 10 mg Documented By: KATI Sacubitril/Valsartan (Sacubitril/Valsartan 1 Tab Tablet) 1 tab PO BID [facility]; Protocol Last Admin: 12/11/21 09:15 Dose: 1 tab Documented By: KATI Sodium Chloride (0.9 % Sodium Chloride Flush 3 Ml Syringe) 3 ml IVFLUSH QSHIFT [facility] Last Admin: 12/11/21 09:15 Dose: 3 ml Documented By: KATI Timolol Maleate (Timolol Maleate 0.5 % Oph Thalia 5 Ml Drbtl) 1 drop EYE-BOTH BID [facility] Last Admin: 12/11/21 11:16 Dose: Not Given Documented By: KATI Non-Admin Reason: Patient Refused Labs CBC & Chem 7: 12/10/21 06:10 12/10/21 06:10 Assessment and Plan (1) New onset atrial fibrillation: Status: Acute (2) Severe sepsis: Status: Acute (3) Pneumonia: Status: Acute (4) Bronchiectasis: Status: Acute Plan This is a 81 year old male with a PMH of COPD, bronchieactasis, JESSA infection - s/p treatment, 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 He is noted to have acute respiratory failure with hypoxia, COPD exacerbation and possibly exacerbation of his underlying chronic lung disease. He will? be admitted for further work up. Acute Respiratory Failure with hypoxia Severe sepsis secondary to Acute bronchiectasis exacerbation Met sepsis criteria with leukocytosis, tachycardia, tachypnea; severe features including respiratory failure requiring BIPAP Sepsis resolving continue O2 by NC -- wean as tolerated Pulm input appreciated - continue with Merrem; if he improves, plan for 14 days course of IV carbepenam (Invanz upon d/c); if doesnt improve, may need bronch for BAL blood cultures negative to date IR nurses were unable to place midline 12/09, will need IR placement of midline Sunday new onset atrial fibrillation with RVR given one dose of IV lopressor, dose of coreg increased. HR has remained under control echo with preserved EF magnesium wnl, TSH slightly low, free T4 wnl seen by cardiology -continue tele monitoring -will hold off on AC for now due to hemoptysis, Cardiology recommends full anticoagulation when hemoptysis has resolved dysuria ua negative COPD exacerbation will wean solumedrol continue [facility] Hemoptysis improving. due to bronchiectasis H/H stable leukocytosis Secondary to steroid use NICM continue coreg / entresto no evidence of acute decompensation GERD PPI Full Code DVT pptx -- mechanical due to hemoptysis attending - dr. 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
[2021-12-11] MEDS: timoloL maleate 0.5 % Oph Sol 5 ML DRBTL 1 DROP EYE-BOTH (21:46)
[2021-12-11] MEDS: Latanoprost 0.005 % Ophth Sol 2.5 ML DROPS 1 DROP EYE-BOTH (21:46)
[2021-12-11] MEDS: Brimonidine Tartrate 0.2% Oph 5 ML BOTTLE 1 DROP EYE-BOTH (21:46)
[2021-12-12] VITALS (8 sets, daily range): BP systolic 112–150; BP diastolic 58–75; PULSE 56–77; RESP 18–20; TEMP 36.3–36.8; O2SAT 94–100; BMI 24.3
[2021-12-12] MEDS: Omeprazole 40 MG CAPSULE.DR PO (06:20)
[2021-12-12 06:47] LABS: Basophils Absolute Auto 0.1 X10*3/uL (0.0-0.2); Basophils Percent Auto 0.2 % (0-2); Eosinophils Percent Auto 0.1 % (0-4); Hematocrit 48.8 % (42.0-52.0); Hemoglobin 15.5 g/dl (14.0-18.0); Imm Gran Abs Auto 0.22 X10*3/uL (0.00-0.03); Imm Gran Pct Auto 0.9 % (0.0-0.4); Lymphocytes Absolute Auto 0.9 X10*3/uL (1.2-4.9); Lymphocytes Percent Auto 3.9 % (20-40); MANUAL DIFF FLAG SCAN; Mean Corpuscular HGB Conc 31.8 g/dl (31.0-36.0); Mean Corpuscular Hemoglobin 28.5 pg (27.0-33.0); Mean Corpuscular Volume 89.7 fL (80.0-98.0); Mean Platelet Volume 10.1 fL (9.4-12.4); Monocytes Absolute Auto 1.5 X10*3/uL (0.1-1.2); Monocytes Percent Auto 6.2 % (2-11); Neutrophils Percent Auto 88.7 % (45-73); Platelet Count 267 X10*3/uL (160-400); Red Blood Count 5.44 X10*6/uL (4.60-5.80); Red Cell Distribution Width 14.1 % (11.0-16.0); SCAN SMEAR FLAG 1; White Blood Count 23.7 X10*3/uL (4.8-10.8)
[2021-12-12 07:57] LABS: SLIDE REVIEW VERIFIED
[2021-12-12] MEDS: Mirabegron 25 MG TAB.ER.24H PO (10:06)
[2021-12-12] MEDS: Sacubitril/Valsartan 24/26 1 TAB TABLET PO ×2 (10:06→21:46)
[2021-12-12] MEDS: carvediloL 12.5 MG TABLET PO ×2 (10:06→21:46)
[2021-12-12] MEDS: methylPREDNISolone Sod Succ 40 MG/ML VIAL IVPUSH (10:06)
[2021-12-12] MEDS: Pravastatin Sodium 10 MG TABLET PO (10:06)
[2021-12-12] MEDS: timoloL maleate 0.5 % Oph Sol 5 ML DRBTL 1 DROP EYE-BOTH ×2 (10:07→21:46)
[2021-12-12] MEDS: 0.9 % Sodium Chloride Flush 3 ML SYRINGE IVFLUSH ×3 (10:08→21:46)
--- NOTE | 2021-12-12 11:35 | P.PNCA_ITS ---
Subjective Subjective Date of Service: 12/12/21 Principal diagnosis: Paroxysmal atrial fibrillation Interval history: Patient converted to sinus rhythm late Sunday night. Has remained in sinus rhythm since yesterday. Denies any cardiac symptoms. Denies any palpitations. Continues to have shortness of breath. Review of Systems Constitutional: Reports no additional constitutional complaints Cardiovascular: Reports no additional cardiovascular complaints and Reports dyspnea Respiratory: Reports cough, Reports excessive phlegm production and Reports dyspnea Gastrointestinal: Reports no additional gastrointestinal complaints Reports system reviewed and no additional complaints, except as documented Physical Exam Vital Signs: Last Vital Signs Temp 98.2 F 12/12/21 11:08 Pulse 67 12/12/21 11:08 Resp 20 12/12/21 11:08 BP 144/73 H 12/12/21 11:08 Pulse Ox 100 12/12/21 11:08 O2 Del Method 12/12/21 11:08 O2 Flow Rate 3 12/12/21 11:08 BMI result Body Mass Index 24.5 Const General: cooperative, comfortable, alert, awake and tired appearing Nutritional Appearance: average body habitus Orientation/consciousness: patient oriented x3 Neck Neck: Yes trachea midline, Yes supple and Yes no JVD Resp Effort & Inspection: normal respiratory effort Auscultation: crackles (Coarse crackles), no rales, no rhonchi, wheezes and diminished lung sounds Cardio Jugular venous distension: no JVD Palpation: normal PMI Rate: regular rate Rhythm: regular rhythm Heart sounds: S1 normal heart sound present, S2 normal heart sound present, no click, no gallops and no murmurs Skin General skin exam: no rashes or lesions noted and ecchymosis Neuro General: patient oriented x3 and no focal motor deficits Extrem General: Yes no clubbing, cyanosis or edema Objective Labs and Meds Result diagrams: 12/12/21 06:19 12/10/21 06:10 Lab results: Laboratory Results - last 24 hr 12/12/21 06:19 WBC 23.7 H RBC 5.44 Hgb 15.5 Hct 48.8 MCV 89.7 MCH 28.5 MCHC 31.8 RDW 14.1 Plt Count 267 MPV 10.1 Immature Gran % (Auto) 0.9 H Neut % (Auto) 88.7 H Lymph % (Auto) 3.9 L [place] % (Auto) 6.2 Eos % (Auto) 0.1 Baso % (Auto) 0.2 Lymph # (Auto) 0.9 L [place] # (Auto) 1.5 H Eos # (Auto) 0.0 Baso # (Auto) 0.1 Abs Immat Gran (auto) 0.22 H Absolute Neuts (auto) 21.0 H Absolute Nucleated RBC 0.000 Nucleated RBC % (auto) 0.0 Smear Tech's Comments VERIFIED Progress Note: A&P Assessment and plan (1) Paroxysmal atrial fibrillation: Status: Acute Assessment and Plan: New onset atrial fibrillation, paroxysmal most likely triggered by his acute medical illness. This is converted back to sinus rhythm. Continue carvedilol therapy. No need for antiarrhythmic drug therapy. Continue treat underlying medical condition. Given his multiple risk factors and advanced age I think is likelihood of recurrent atrial fibrillation is high. Consider oral anticoagulation therapy, can consider Eliquis 5 mg b.i.d.. Avoidance of stimulants was discussed. Pulmonary specific bronchodilator should be considered. (2) NICM (nonischemic cardiomyopathy): Status: Acute Assessment and Plan: Prior history of cardiomyopathy, nonischemic. Most recent echocardiogram shows low normal LVEF. Continue current neurohormonal modulation with carvedilol and Entresto. No signs or symptoms of heart failure. Will sign of the case at this point time. Thank you for allowing me to partake in his care Time Spent With Patient Time: Total time spent is greater than 50% in coordination of care (as documented) at patient's floor/unit and/or counseling patient: Progress Note: Quality Stroke Does the patient have a stroke diagnosis?: No Procedures Date of Service Date of Service: 12/12/21
[2021-12-12] MEDS: Albuterol/Iprat 2.5/0.5MG 3 ML AMPUL.NEB INHALE ×3 (11:47→20:26)
--- NOTE | 2021-12-12 12:14 | HO.PM.IMPN ---
Subjective Subjective Date of Service: 12/12/21 <Chrissy Lopez NP - Last Filed: 12/12/21 12:30> 12/12/21 <Raúl Butt MD - Last Filed: 12/12/21 15:34> Interval History: Follow-up for bronchiectasis patient denies shortness of breath at rest, some sob with movement. Reports improvement in his cough although still bringing up some phlegm streaked with blood. No fever, no chills <Chrissy Lopez NP - Last Filed: 12/12/21 12:30> Review of Systems Review of Systems: Yes all other systems are reviewed and are negative <Chrissy Lopez NP - Last Filed: 12/12/21 12:30> Constitutional Constitutional: Denies chills and Denies fever(s) <Chrissy Lopez NP - Last Filed: 12/12/21 12:30> ENT Ears, Nose, Mouth, and Throat: Denies dizziness <Chrissy Lopez NP - Last Filed: 12/12/21 12:30> Cardiovascular Cardiovascular: Denies chest pain, Denies palpitations, Denies dyspnea and Reports dyspnea on exertion <Chrissy Lopez NP - Last Filed: 12/12/21 12:30> Respiratory Respiratory: Reports cough, Denies dyspnea and Reports dyspnea on exertion <Chrissy Lopez NP - Last Filed: 12/12/21 12:30> Gastrointestinal Gastrointestinal: Denies abdominal pain <Chrissy Lopez NP - Last Filed: 12/12/21 12:30> Neurologic Neurologic: Denies dizziness <Chrissy Lopez NP - Last Filed: 12/12/21 12:30> Endocrine Endocrine: Denies palpitations <Chrissy Lopez NP - Last Filed: 12/12/21 12:30> Physical Exam Vital Signs: Vital Signs: Last Vital Signs Temp 98.2 F 12/12/21 11:08 Pulse 67 12/12/21 11:08 Resp 20 12/12/21 11:08 BP 144/73 H 12/12/21 11:08 Pulse Ox 100 12/12/21 11:08 O2 Del Method 12/12/21 11:08 O2 Flow Rate 3 12/12/21 11:08 BMI result Body Mass Index 24.5 <Chrissy Lopez NP - Last Filed: 12/12/21 12:30> Appearing in no acute distress lung sounds are clear to auscultation heart regular rate rhythm, clear S1, S2 positive bowel sounds, abdomen is soft, nontender neuro patient is alert x3, no focal deficits <Chrissy Lopez NP - Last Filed: 12/12/21 12:30> Objective Data Active Medications Acetaminophen (Acetaminophen 325 Mg Tablet) 650 mg PO Q6H PRN PRN Reason: Pain, Mild (Pain Scale 1-3) Albuterol/Ipratropium (Albuterol/Iprat 2.5/0.5mg 3 Ml Ampul.Neb) 3 ml INHALE RQ4H WHILE AWAKE [facility] Last Admin: 12/12/21 11:47 Dose: 3 ml Documented By: HESHAM Brimonidine Tartrate (Brimonidine Tartrate 0.2% Oph 5 Ml Bottle) 1 drop EYE-BOTH BID [facility] Last Admin: 12/12/21 10:11 Dose: Not Given Documented By: GIUSEPPE Non-Admin Reason: Patient Refused Carvedilol (Carvedilol 12.5 Mg Tablet) 12.5 mg PO BID [facility]; Protocol Last Admin: 12/12/21 10:06 Dose: 12.5 mg Documented By: GIUSEPPE Meropenem 1 gm/ Sodium (Chloride) 100 mls @ 200 mls/hr IV Q8H [facility] Last Infusion: 12/12/21 11:06 Dose: 0 mls/hr Documented By: GIUSEPPE Latanoprost (Latanoprost 0.005 % Ophth Thalia 2.5 Ml Drops) 1 drop EYE-BOTH BEDTIME [facility] Last Admin: 12/11/21 21:46 Dose: 1 drop Documented By: FADIA Methylprednisolone Sodium Succinate (Methylprednisolone Sod Succ 40 Mg/Ml Vial) 40 mg IVPUSH DAILY [facility] Last Admin: 12/12/21 10:06 Dose: 40 mg Documented By: GIUSEPPE Mirabegron (Mirabegron 25 Mg Tab.Er.24h) 25 mg PO DAILY [facility] Last Admin: 12/12/21 10:06 Dose: 25 mg Documented By: GIUSEPPE Omeprazole (Omeprazole 40 Mg Capsule.Dr) 40 mg PO DAILY@0630 [facility] Last Admin: 12/12/21 06:20 Dose: 40 mg Documented By: FADIA Ondansetron HCl (Ondansetron Hcl 4 Mg/2 Ml Vial) 4 mg IVPUSH Q8H PRN PRN Reason: Nausea and Vomiting Pharmacy Consult (Consult Rx Perform Med Rec) 1 each MISCELLANE ONCE PRN PRN Reason: Consult order Pravastatin Sodium (Pravastatin Sodium 10 Mg Tablet) 10 mg PO DAILY [facility] Last Admin: 12/12/21 10:06 Dose: 10 mg Documented By: GIUSEPPE Sacubitril/Valsartan (Sacubitril/Valsartan 1 Tab Tablet) 1 tab PO BID [facility]; Protocol Last Admin: 12/12/21 10:06 Dose: 1 tab Documented By: GIUSEPPE Sodium Chloride (0.9 % Sodium Chloride Flush 3 Ml Syringe) 3 ml IVFLUSH QSHIFT [facility] Last Admin: 12/12/21 10:08 Dose: 3 ml Documented By: GIUSEPPE Timolol Maleate (Timolol Maleate 0.5 % Oph Thalia 5 Ml Drbtl) 1 drop EYE-BOTH BID [facility] Last Admin: 12/12/21 10:07 Dose: 1 drop Documented By: GIUSEPPE <Chrissy Lopez NP - Last Filed: 12/12/21 12:30> Labs CBC & Chem 7: : 12/12/21 06:19 12/10/21 06:10 <Chrissy Lopez NP - Last Filed: 12/12/21 12:30> Labs: Laboratory Results - last 24 hr 12/12/21 06:19 MCV 89.7 MCH 28.5 MCHC 31.8 RDW 14.1 Plt Count 267 MPV 10.1 Immature Gran % (Auto) 0.9 H Neut % (Auto) 88.7 H Lymph % (Auto) 3.9 L [place] % (Auto) 6.2 Eos % (Auto) 0.1 Baso % (Auto) 0.2 Lymph # (Auto) 0.9 L [place] # (Auto) 1.5 H Eos # (Auto) 0.0 Baso # (Auto) 0.1 Abs Immat Gran (auto) 0.22 H Absolute Neuts (auto) 21.0 H Absolute Nucleated RBC 0.000 Nucleated RBC % (auto) 0.0 Smear Tech's Comments VERIFIED <Chrissy Lopez NP - Last Filed: 12/12/21 12:30> Microbiology Microbiology Results: Microbiology 12/07/21 00:57 Blood Culture - Final Blood - Venous No growth after 5 days. 12/07/21 00:58 Blood Culture - Final Blood - Venous No growth after 5 days. 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 He is noted to have acute respiratory failure with hypoxia, COPD exacerbation and possibly exacerbation of his underlying chronic lung disease. He will? be admitted for further work up. Acute Respiratory Failure with hypoxia Severe sepsis secondary to Acute bronchiectasis exacerbation Wean oxygen Pulm input appreciated, continue meropenem, 14 day course of IV Invanz at discharge blood cultures negative to date midline placement today new onset atrial fibrillation with RVR given one dose of IV lopressor, dose of coreg increased. HR has remained under control echo with preserved EF magnesium wnl, TSH slightly low, free T4 wnl seen by cardiology continue tele monitoring start Eliquis Dysuria ua negative COPD exacerbation will wean solumedrol continue updrafts Hemoptysis improving. due to bronchiectasis H/H stable leukocytosis Secondary to steroid use Nonischemic cardiomyopathy continue coreg / entresto no evidence of acute decompensation GERD PPI Full Code DVT pptx -- mechanical due to hemoptysis attending - dr. 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
[2021-12-12] MEDS: Apixaban 5 MG TABLET PO (21:46)
[2021-12-12] MEDS: Brimonidine Tartrate 0.2% Oph 5 ML BOTTLE 1 DROP EYE-BOTH (21:46)
[2021-12-12] MEDS: Latanoprost 0.005 % Ophth Sol 2.5 ML DROPS 1 DROP EYE-BOTH (21:46)
[2021-12-13] VITALS (10 sets, daily range): BP systolic 104–134; BP diastolic 56–76; PULSE 67–83; RESP 18–20; TEMP 36.6–37.3; O2SAT 93–97
[2021-12-13] MEDS: Omeprazole 40 MG CAPSULE.DR PO (06:23)
[2021-12-13] MEDS: Albuterol/Iprat 2.5/0.5MG 3 ML AMPUL.NEB INHALE ×4 (08:12→19:24)
[2021-12-13] MEDS: methylPREDNISolone Sod Succ 40 MG/ML VIAL IVPUSH (08:30)
[2021-12-13] MEDS: Pravastatin Sodium 10 MG TABLET PO (08:30)
[2021-12-13] MEDS: Brimonidine Tartrate 0.2% Oph 5 ML BOTTLE 1 DROP EYE-BOTH ×2 (08:30→21:25)
[2021-12-13] MEDS: carvediloL 12.5 MG TABLET PO ×2 (08:30→21:26)
[2021-12-13] MEDS: Sacubitril/Valsartan 24/26 1 TAB TABLET PO ×2 (08:30→21:26)
[2021-12-13] MEDS: Mirabegron 25 MG TAB.ER.24H PO (08:30)
[2021-12-13] MEDS: 0.9 % Sodium Chloride Flush 3 ML SYRINGE IVFLUSH ×3 (08:31→21:26)
[2021-12-13] MEDS: timoloL maleate 0.5 % Oph Sol 5 ML DRBTL 1 DROP EYE-BOTH ×2 (08:32→21:29)
[2021-12-13] MEDS: Apixaban 5 MG TABLET PO ×2 (08:33→21:26)
--- NOTE | 2021-12-13 11:57 | MHC.CM.PN ---
Addendum entered by Sandy Villatoro 12/13/21 16:22: Documentation of PICC line insertion has been sent to [facility]. Notification received that discharge is cancelled due to urinary retention and constipation. [facility] and [facility] have been notified dc on hold. Addendum entered by Sandy Villatoro 12/13/21 14:48: Called [facility] PICC request documentation of PICC insertion. Spoke with Ann Marie HUERTA. She stated that she will request the documentation to be sent to the [facility]. Original Note: NIKIA called Radiology. Spoke with Augusta HUERTA. She stated that the patient is scheduled for PICC line insertion 13:30 today.
[2021-12-13] MEDS: polyethylene glycoL 3350 17 GM POWD.PACK PO (12:13)
[2021-12-13] MEDS: Docusate Sodium 100 MG CAPSULE PO ×2 (12:13→21:26)
--- NOTE | 2021-12-13 12:50 | P.PNIM_ITS ---
Subjective Subjective Date of Service: 12/13/21 Interval History: Follow-up for bronchiectasis patient denies shortness of breath at rest, some sob with movement. Reports improvement in his cough although still bringing up some phlegm streaked with blood. No fever, no chills Review of Systems Review of Systems: Yes all other systems are reviewed and are negative Constitutional Constitutional: Denies chills and Denies fever(s) ENT Ears, Nose, Mouth, and Throat: Denies dizziness Cardiovascular Cardiovascular: Denies chest pain, Denies palpitations, Denies dyspnea and Repor ts dyspnea on exertion Respiratory Respiratory: Reports cough, Denies dyspnea and Reports dyspnea on exertion Gastrointestinal Gastrointestinal: Denies abdominal pain Neurologic Neurologic: Denies dizziness Endocrine Endocrine: Denies palpitations Physical Exam Vital Signs: Vital Signs: Last Vital Signs Temp 98.4 F 12/13/21 11:38 Pulse 75 12/13/21 11:41 Resp 20 12/13/21 11:41 BP 105/67 12/13/21 11:38 Pulse Ox 94 12/13/21 11:38 O2 Del Method 12/13/21 11:38 O2 Flow Rate 3 12/12/21 11:08 BMI result Body Mass Index 24.3 Appearing in no acute distress lung sounds are clear to auscultation heart regular rate rhythm, clear S1, S2 positive bowel sounds, abdomen is soft, nontender neuro patient is alert x3, no focal deficits Objective Data Active Medications Acetaminophen (Acetaminophen 325 Mg Tablet) 650 mg PO Q6H PRN PRN Reason: Pain, Mild (Pain Scale 1-3) Albuterol/Ipratropium (Albuterol/Iprat 2.5/0.5mg 3 Ml Ampul.Neb) 3 ml INHALE RQ4H WHILE AWAKE [facility] Last Admin: 12/13/21 11:41 Dose: 3 ml Documented By: HESHAM Apixaban (Apixaban 5 Mg Tablet) 5 mg PO BID [facility] Last Admin: 12/13/21 08:33 Dose: 5 mg Documented By: ELYSIA Brimonidine Tartrate (Brimonidine Tartrate 0.2% Oph 5 Ml Bottle) 1 drop EYE- BOTH BID [facility] Last Admin: 12/13/21 08:30 Dose: 1 drop Documented By: ELYSIA Carvedilol (Carvedilol 12.5 Mg Tablet) 12.5 mg PO BID [facility]; Protocol Last Admin: 12/13/21 08:30 Dose: 12.5 mg Documented By: ELYSIA Docusate Sodium (Docusate Sodium 100 Mg Capsule) 100 mg PO BID [facility] Last Admin: 12/13/21 12:13 Dose: 100 mg Documented By: ELYSIA Meropenem 1 gm/ Sodium (Chloride) 100 mls @ 200 mls/hr IV Q8H [facility] Last Infusion: 12/13/21 09:20 Dose: 0 mls/hr Documented By: ELYSIA Latanoprost (Latanoprost 0.005 % Ophth [place] 2.5 Ml Drops) 1 drop EYE-BOTH BEDTIME [facility] Last Admin: 12/12/21 21:46 Dose: 1 drop Documented By: FADIA Methylprednisolone Sodium Succinate (Methylprednisolone Sod Succ 40 Mg/Ml Vial) 40 mg IVPUSH DAILY [facility] Last Admin: 12/13/21 08:30 Dose: 40 mg Documented By: ELYSIA Mirabegron (Mirabegron 25 Mg Tab.Er.24h) 25 mg PO DAILY [facility] Last Admin: 12/13/21 08:30 Dose: 25 mg Documented By: ELYSIA Omeprazole (Omeprazole 40 Mg Capsule.Dr) 40 mg PO DAILY@0630 [facility] Last Admin: 12/13/21 06:23 Dose: 40 mg Documented By: FADIA Ondansetron HCl (Ondansetron Hcl 4 Mg/2 Ml Vial) 4 mg IVPUSH Q8H PRN PRN Reason: Nausea and Vomiting Pharmacy Consult (Consult Rx Perform Med Rec) 1 each MISCELLANE ONCE PRN PRN Reason: Consult order Polyethylene Glycol (Polyethylene Glycol 3350 17 Gm Powd.Pack) 17 gm PO BID [facility] Last Admin: 12/13/21 12:13 Dose: 17 gm Documented By: ELYSIA Pravastatin Sodium (Pravastatin Sodium 10 Mg Tablet) 10 mg PO DAILY [facility] Last Admin: 12/13/21 08:30 Dose: 10 mg Documented By: ELYSIA Sacubitril/Valsartan (Sacubitril/Valsartan 1 Tab Tablet) 1 tab PO BID [facility]; Protocol Last Admin: 12/13/21 08:30 Dose: 1 tab Documented By: ELYSIA Sodium Chloride (0.9 % Sodium Chloride Flush 3 Ml Syringe) 3 ml IVFLUSH QSHIFT [facility] Last Admin: 12/13/21 08:31 Dose: 3 ml Documented By: ELYSIA Timolol Maleate (Timolol Maleate 0.5 % Oph [place] 5 Ml Drbtl) 1 drop EYE-BOTH BID [facility] Last Admin: 12/13/21 08:32 Dose: 1 drop Documented By: ELYSIA Labs CBC & Chem 7: 12/12/21 06:19 12/10/21 06:10 Assessment and Plan (1) New onset atrial fibrillation: Status: Inactive (2) Severe sepsis: Status: Acute (3) Pneumonia: Status: Acute (4) Bronchiectasis: Status: Acute Plan This is a 81 year old male with a PMH of COPD, bronchieactasis, JESSA infection - s/p treatment, 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 He is noted to have acute respiratory failure with hypoxia, COPD exacerbation and possibly exacerbation of his underlying chronic lung disease. He will? be admitted for further work up. Urinary retention 1St bladder scan showed over 900 mL of urine Bladder scan Q shift Straight cath as needed Start Flomax Constipation Start MiraLax and Colace Acute Respiratory Failure with hypoxia. Resolved Severe sepsis secondary to Acute bronchiectasis exacerbation Wean oxygen Pulm input appreciated, continue meropenem, 14 day course of IV Invanz at discharge blood cultures negative to date PICC line placement today new onset atrial fibrillation with RVR given one dose of IV lopressor, dose of coreg increased. HR has remained under control echo with preserved EF magnesium wnl, TSH slightly low, free T4 wnl seen by cardiology continue tele monitoring conrtgeovanny Cannon Dysuria ua negative COPD exacerbation change solumedrol to prednisone continue updrafts Hemoptysis improving. due to bronchiectasis H/H stable leukocytosis Secondary to steroid use Nonischemic cardiomyopathy continue coreg / entresto no evidence of acute decompensation GERD PPI Full Code DVT pptx with ciara attending Dr. Butt DISPO Home with IV INvanz Requires continued hospitalization due to treatment with IV meropenam for a history of ESBL resistant E. Coli, picc line placement pending Quality Stroke Does the patient have a stroke diagnosis?: No VTE Prior VTE?: No VTE Risk Level:: Medical - moderate - high VTE Device Contraindication: N/A - Device Ordered VTE Drug Contraindication: Treatment Not Indicated
[2021-12-13] MEDS: Tamsulosin HCL 0.4 MG CAPSULE PO (13:19)
[2021-12-13] MEDS: Latanoprost 0.005 % Ophth Sol 2.5 ML DROPS 1 DROP EYE-BOTH (21:25)
[2021-12-14 03:27] VITALS: BP 136/80; PULSE 72; RESP 18; TEMP 36.6; O2SAT 94
[2021-12-14] MEDS: Omeprazole 40 MG CAPSULE.DR PO (06:20)
[2021-12-14] MEDS: Albuterol/Iprat 2.5/0.5MG 3 ML AMPUL.NEB INHALE ×2 (07:48→11:46)
[2021-12-14 07:49] VITALS: PULSE 66; RESP 20; O2SAT 95
[2021-12-14 07:52] VITALS: BP 112/68; PULSE 72; RESP 18; TEMP 36.8; O2SAT 100
[2021-12-14] MEDS: predniSONE 20 MG TABLET 40 MG PO (09:00)
[2021-12-14] MEDS: carvediloL 12.5 MG TABLET PO (09:01)
[2021-12-14] MEDS: Mirabegron 25 MG TAB.ER.24H PO (09:02)
[2021-12-14] MEDS: Apixaban 5 MG TABLET PO (09:03)
[2021-12-14] MEDS: Sacubitril/Valsartan 24/26 1 TAB TABLET PO (09:04)
[2021-12-14] MEDS: Pravastatin Sodium 10 MG TABLET PO (09:04)
[2021-12-14] MEDS: Tamsulosin HCL 0.4 MG CAPSULE PO (09:04)
[2021-12-14] MEDS: Docusate Sodium 100 MG CAPSULE PO (09:04)
[2021-12-14] MEDS: polyethylene glycoL 3350 17 GM POWD.PACK PO (09:05)
[2021-12-14] MEDS: 0.9 % Sodium Chloride Flush 3 ML SYRINGE IVFLUSH (09:07)
[2021-12-14] MEDS: timoloL maleate 0.5 % Oph Sol 5 ML DRBTL 1 DROP EYE-BOTH (09:08)
[2021-12-14] MEDS: Brimonidine Tartrate 0.2% Oph 5 ML BOTTLE 1 DROP EYE-BOTH (09:08)
--- NOTE | 2021-12-14 10:55 | PM.DS ---
DS: Providers Provider Date of Service: 12/14/21 Date of admission: 12/07/21 09:17 Primary care physician: Olga Calzada MD Consults: 12/07/21 09:17 Consult to Pulmonology Routine Consulting Provider: Brent Duenas Reason for consultation: respiratory failure, history of bronchiectasis treated with carbepenam, 12/09/21 12:42 Consult to Cardiology Routine Consulting Provider: Eduard Manning Reason for consultation: new onset afib with RVR Has provider been notified: No DS: Diagnosis Discharge Diagnosis (1) New onset atrial fibrillation: Status: Inactive (2) Severe sepsis: Status: Acute (3) Pneumonia: Status: Acute (4) Bronchiectasis: Status: Acute DS: Summary Hospital Course Hospital Course: HPI From the admission H&P: This is a 81 year old male with a PMH of COPD, bronchieactasis, JESSA infection - s/p treatment, 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 The patient is [place] speak and the history is obtained with the help of a risk assessment analyst. Despite this, he remains a vague historian. He reports that he has progressive SOB and cough, which have not been relieved by his baseline inhalers / neublizer treatments. He reorts blood tinged sputum which began yesterday. She dnies any chest pain, pleuritic or anginal. He denies any fevers or chills. He deneis any GI or symptoms. Upon arrival to the ED, the patient was in visible respiratory distress with rates in the 40s-60s. He was speaking in 2-3 word sentences. He was placed on BIPAP in the ED, given IV antibiotics, IV lasix, IV steroids. Once improved admission was requested to the medical floor. Hospital Course: The patient was admitted for acute respiratory failure with hypoxia and severe sepsis secondary to presumed E coli pneumonia/acute bronchiectasis. He was initiated on IV doxycycline and IV meropenem. Pulmonary was consulted and was in agreement with carbapenems for treatment given his prior resistant E coli in the sputum. He was also treated with IV systemic steroids and supplemental oxygen for his COPD and respiratory failure. With these measures, the patient's respiratory symptoms had significant improvement. He is tolerating room air at the time of discharge. He will complete IV Invanz with an end date of 12/21/2021, Total more than 14 days now. In regards to his presenting hemoptysis, this was self-limited and resolved with treatment of his infection. Bronchoscopic evaluation was not required during this hospitalization. Patient's hospital course was complicated by new onset atrial fibrillation with rapid ventricular response. He was treated with IV rate control drugs and underwent cardiac evaluation with echocardiograph he as well as cardiology consultation. Fortunately, the patient converted back to sinus rhythm. His AFib was deemed secondary to his acute illness. Nonetheless, due to his multiple risk factors cardiology recommended anticoagulation with Eliquis which he has been tolerating without any evidence of hemoptysis. He will be discharged on Coreg 12.5 mg b.i.d. for rate control. His hospital course was further complicated by acute urinary retention for which Flomax was initiated and initially he was treated with straight catheterization. On the day of discharge, the patient had post void residual volumes of nearly 700. With the presence of a [place]-speaking bottom loader, straight catheterization versus indwelling Hermosillo were discussed as options. Patient did not think he would be able to manage straight catheterization at home and hence a Hermosillo will be placed and a urology referral will be made for him to follow up within 1 week. He should continue Flomax. For his Hermosillo catheter, 60 cc of normal saline flush and catheter change may be completed should the catheter get clogged. Final Discharge Diagnosis: 1. Severe sepsis 2. ESBL E. Coli pneumonia cannot be ruled out 3. Acute Respiratory Failure with hypoxia 4. Acute COPD exacerbation. 5. New onset A. Fib with RVR -- now in Sinus 6. Urinary retention 7. Hemoptysis 8. 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 Time Spent with Patient Time attestation: Total time spent providing and/or coordinating discharge services: Discharge coordination time: Greater than 30 minutes Quality: Safe Use of Opioids Does Pt have an Active Cancer Diagnosis on the Problem List?: No Quality: Stroke Does the patient have a stroke diagnosis?: No Physical Exam Vital Signs: Vital Signs: Last Vital Signs Temp 98.2 F 12/14/21 07:52 Pulse 72 12/14/21 07:52 Resp 18 12/14/21 07:52 BP 112/68 12/14/21 07:52 Pulse Ox 100 12/14/21 07:52 O2 Del Method 12/14/21 07:52 O2 Flow Rate 3 12/12/21 11:08 BMI result Body Mass Index 24.3 Const: Other: General - no acute distress, appears comfortable Cardiovascular - regular rate and rhythm, S1-S2 Lungs - normal respiratory effort, clear to auscultation bilaterally, no wheezing Abdomen - soft, nontender, no rebound or guarding Extremities - no edema bilaterally Neuro - awake and alert, no focal deficits Discharge Plan Discharge Anticipated Discharge Date/Time: 12/14/21 11:19 Patient Disposition: Home Health Service Discharge Diagnosis: Urinary retention HEENT patient Acute respiratory failure with hypoxia New onset atrial fibrillation with rapid ventricular response Hemoptysis Referrals: [facility] [Other] - 1 Week Arnie HUFFMAN [Outside] - 1 Week Fredy Hatrman MD [Physician] - 1 Week Olga North MD [Primary Care Provider] - 1 Week Discharge Medications: New tamsulosin 0.4 mg Capsule 0.4 mg PO DAILY Qty: 30 0RF Eliquis 5 mg Tablet 5 mg PO BID Qty: 60 0RF carvedilol 12.5 mg Tablet 12.5 mg PO BID Qty: 60 0RF Protocol: Hold for SBP/HR < HOLD for SBP < : 90 HOLD for HR < : 60 polyethylene glycol 3350 17 gram Powder In Packet 17 g PO DAILY PRN (Reason: constipation) Qty: 30 0RF docusate sodium 100 mg Capsule 100 mg PO BID Qty: 60 0RF Continued omeprazole 40 mg capsule,delayed release(DR/EC) 40 mg PO DAILY Qty: 90 3RF Entresto 24-26 mg tablet 1 tab PO BID 90 Days Qty: 180 3RF doxycycline monohydrate 100 mg capsule 100 mg PO MOWEFR Qty: 14 3RF ipratropium-albuterol 0.5 mg-3 mg(2.5 mg base)/3 mL solution for nebulization 3 ml inhalation QID PRN (Reason: for dyspnea) Qty: 180 0RF albuterol sulfate 90 mcg/actuation HFA aerosol inhaler 2 puff inhalation Q4H PRN (Reason: shortness of breath or wheezing) Qty: 8.5 4RF Myrbetriq 25 mg tablet extended release 24 hr 25 mg PO DAILY 90 Days Qty: 90 0RF lovastatin 10 mg tablet 10 mg PO DAILY 90 Days Qty: 90 3RF travoprost 0.004 % drops 1 drp ophthalmic (eye) BEDTIME brimonidine-timolol [Combigan] 0.2-0.5 % drops 1 drp ophthalmic (eye) BID prednisone 5 mg tablet 2 tab PO DAILY Discontinued carvedilol 6.25 mg tablet 6.25 mg PO BID Qty: 180 1RF Discharge Orders: Discharge Order (Routine); Ordered 12/14/21 Ordered By: Raúl Butt Diet: Advance to usual diet Activity on Discharge: As tolerated Stand Alone Forms: Patient Portal Discharge page Care Plan Goals: complete IV antibiotic course - End date 12/21/21 Health Concerns: Urinary retention HEENT patient Acute respiratory failure with hypoxia New onset atrial fibrillation with rapid ventricular response Hemoptysis Plan of Treatment: Continue Invanz until 12/21/21 For urinary retention keep hermosillo and take flomax. Follow up with urology within 1 week. For A. Fib take eliquis. Your coreg has been increased to 12.5mg BID continue you other medications as you were previously Assessment: See discharge summary
[2021-12-14 11:14] VITALS: BP 112/69; PULSE 75; RESP 18; TEMP 36.7; O2SAT 94
[2021-12-14 11:48] VITALS: PULSE 66; RESP 20; O2SAT 94
[2021-12-14 12:19] VITALS: PULSE 86
[2021-12-14] MEDS: Heparin Sodium,Porcine Flush 50 UNITS, 0.9 % Sodium Chloride Flush 5 ML IVFLUSH (15:37)
--- NOTE | 2021-12-14 15:44 | PC.NURSE ---
pt a+ox4, independent in the room. media consultant per MAY. pt has had urinary retention, bladder scanned this morning for 700. MD informed, new orders to place a hermosillo. Hermosillo catheter placed at 1055, pt tolerated okay but voiced discomfort during procedure. Hermosillo is patent and draining. Pt due to discharge with hermosillo and PICC still in place per MD. Discharge intructions given with interpreter and translator services, teaching about home care with hermosillo preformed and pt verblized and demonstrated understanding. Pt states no further questions. Sister to transport home, accompanied to main lobby with hospital staff by wheelchair.
== END 2021-12-14 15:50 | disposition home health service (06) | DRG 871 ==
LOC: HO.ED 02:01 → HO.EDOVER 09:28 → HO.IMC 12-08 12:33
PROVIDERS: Physician Assistant Medical; Radiology Diagnostic Radiology; Admitting Provider Family Medicine; Emergency Provider Emergency Medicine; PCP Internal Medicine; Visit Provider Family Medicine
PROC: 02HV33Z Insertion of Infusion Device into Superior Vena Cava, Percutaneous Approach (ICD-10-PCS; principal; 2021-12-13 13:30)
DX: A41.9 Sepsis, unspecified organism (principal); J15.5 Pneumonia due to Escherichia coli; J96.01 Acute respiratory failure with hypoxia; I42.8 Other cardiomyopathies; J47.1 Bronchiectasis with (acute) exacerbation; R04.2 Hemoptysis; J47.0 Bronchiectasis with acute lower respiratory infection; Z16.12 Extended spectrum beta lactamase (ESBL) resistance; R65.20 Severe sepsis without septic shock; I48.0 Paroxysmal atrial fibrillation; K21.9 Gastro-esophageal reflux disease without esophagitis; T38.0X5A Adverse effect of glucocorticoids and synthetic analogues, initial encounter; D72.829 Elevated white blood cell count, unspecified; R33.9 Retention of urine, unspecified; K59.00 Constipation, unspecified; Z20.822 Contact with and (suspected) exposure to COVID-19; Z87.891 Personal history of nicotine dependence; Z88.0 Allergy status to penicillin; Z88.8 Allergy status to other drugs, medicaments and biological substances; Z79.01 Long term (current) use of anticoagulants; Z79.52 Long term (current) use of systemic steroids; Z79.899 Other long term (current) drug therapy
CPT/HCPCS: 0241U; 36415; 36573; 71045; 71275; 76937; 80048; 80076; 81003; 82803; 83605; 83690; 83735; 83880; 84439; 84443; 84484; 85025; 85027; 87040; 93005; 93306; 94660; 96365; 96366; 96375; 99285; C1751; C1758; J1642; J1940; J1956; J2185; J2920; J2930; J3475; Q9967

== ENCOUNTER → 2021-12-21 07:04 | Outpatient (REF) | payer MEDICARE, MEDICAID, SELFPAY ==
--- NOTE | 2021-12-21 07:08 | HM_ITS ---
* Total monitoring time 3 days and 2 hours. * Underlying rhythm is sinus. Average rate 76/Min. Range 57-107/Min. * No atrial fibrillation or flutter. * Very rare supraventricular and ventricular ectopy with minimal burden. * No patient diary. MTDD
== END ==
LOC: HO.CARD 07:04
PROVIDERS: PCP Internal Medicine; Visit Provider Internal Medicine Cardiovascular Disease
DX: I48.0 Paroxysmal atrial fibrillation (principal); I42.8 Other cardiomyopathies; D64.9 Anemia, unspecified
CPT/HCPCS: 36415; 80048; 80076; 85025; 93242

== ENCOUNTER 2021-12-21 11:44 | Outpatient (REF) | payer MEDICARE, MEDICAID, SELFPAY ==
[2021-12-21 11:47] LABS: MANUAL DIFF FLAG NO
[2021-12-21 11:51] LABS: Basophils Percent Auto 0.2 % (0-2); Eosinophils Absolute Auto 0.4 X10*3/uL (0.0-0.4); Eosinophils Percent Auto 2.9 % (0-4); Hemoglobin 12.6 g/dl (14.0-18.0); Imm Gran Abs Auto 0.07 X10*3/uL (0.00-0.03); Imm Gran Pct Auto 0.6 % (0.0-0.4); Lymphocytes Absolute Auto 0.5 X10*3/uL (1.2-4.9); Lymphocytes Percent Auto 4.1 % (20-40); Mean Corpuscular HGB Conc 32.3 g/dl (31.0-36.0); Mean Corpuscular Hemoglobin 28.8 pg (27.0-33.0); Mean Corpuscular Volume 89.2 fL (80.0-98.0); Mean Platelet Volume 9.7 fL (9.4-12.4); Monocytes Absolute Auto 0.8 X10*3/uL (0.1-1.2); Monocytes Percent Auto 6.4 % (2-11); Neutrophils Absolute Auto 10.3 x10*3/uL (2.0-8.3); Neutrophils Percent Auto 85.8 % (45-73); Platelet Count 202 X10*3/uL (160-400); Red Blood Count 4.37 X10*6/uL (4.60-5.80); Red Cell Distribution Width 13.3 % (11.0-16.0)
[2021-12-21 13:11] LABS: Alanine Aminotransferase 27 U/L (0-40); Albumin Level 3.3 g/dL (3.5-5.0); Alkaline Phosphatase 70 U/L (39-117); Anion Gap 16 (12-20); Aspartate Amino Transferase 16 U/L (5-37); Bilirubin Direct < 0.2 mg/dL (0.0-0.5); Bilirubin Total 0.3 mg/dL (0.0-1.0); Blood Urea Nitrogen 14 mg/dL (9-16); Calcium 8.2 mg/dL (8.4-10.2); Carbon Dioxide 26 mmol/L (22-29); Chloride 101 mmol/L (96-108); Estimated Glomerular Filt Rate > 60; Glucose Random 168 mg/dL (60-115); Potassium 4.1 mmol/L (3.3-5.1); Sodium 139 mmol/L (135-145); Total Protein 6.3 g/dL (6.5-8.0)
== END 2021-12-21 11:45 | disposition home or self-care (01) ==
LOC: HO.HVNA 11:44
PROVIDERS: Visit Provider Internal Medicine
DX: Z13.89 Encounter for screening for other disorder (principal)
CPT/HCPCS: 36415; 80048; 80076; 85025

== ENCOUNTER → 2021-12-22 10:53 | Outpatient (BNVA) | payer MEDICARE, MEDICAID, SELFPAY | PROVIDERS: PCP Internal Medicine; Visit Provider Internal Medicine Pulmonary Disease | DX: J47.1 Bronchiectasis with (acute) exacerbation (principal); A49.9 Bacterial infection, unspecified; Z16.12 Extended spectrum beta lactamase (ESBL) resistance | CPT/HCPCS: 99212 ==

== ENCOUNTER 2021-12-28 12:36 | Outpatient (REF) | payer MEDICARE, MEDICAID, SELFPAY ==
[2021-12-28 12:41] LABS: MANUAL DIFF FLAG NO
[2021-12-28 12:47] LABS: Basophils Absolute Auto 0.1 X10*3/uL (0.0-0.2); Basophils Percent Auto 0.5 % (0-2); Eosinophils Absolute Auto 0.5 X10*3/uL (0.0-0.4); Eosinophils Percent Auto 4.9 % (0-4); Hematocrit 41.1 % (42.0-52.0); Hemoglobin 13.1 g/dl (14.0-18.0); Imm Gran Abs Auto 0.03 X10*3/uL (0.00-0.03); Imm Gran Pct Auto 0.3 % (0.0-0.4); Lymphocytes Absolute Auto 0.5 X10*3/uL (1.2-4.9); Mean Corpuscular HGB Conc 31.9 g/dl (31.0-36.0); Mean Corpuscular Hemoglobin 28.4 pg (27.0-33.0); Mean Corpuscular Volume 89.2 fL (80.0-98.0); Mean Platelet Volume 9.5 fL (9.4-12.4); Monocytes Absolute Auto 0.5 X10*3/uL (0.1-1.2); Monocytes Percent Auto 4.9 % (2-11); Neutrophils Absolute Auto 8.9 x10*3/uL (2.0-8.3); Neutrophils Percent Auto 84.4 % (45-73); Platelet Count 214 X10*3/uL (160-400); Red Blood Count 4.61 X10*6/uL (4.60-5.80); Red Cell Distribution Width 13.2 % (11.0-16.0); White Blood Count 10.5 X10*3/uL (4.8-10.8)
[2021-12-28 13:34] LABS: Alanine Aminotransferase 25 U/L (0-40); Albumin Level 3.5 g/dL (3.5-5.0); Alkaline Phosphatase 79 U/L (39-117); Anion Gap 13 (12-20); Aspartate Amino Transferase 13 U/L (5-37); Bilirubin Direct < 0.2 mg/dL (0.0-0.5); Bilirubin Total 0.3 mg/dL (0.0-1.0); Blood Urea Nitrogen 9 mg/dL (9-16); Calcium 8.9 mg/dL (8.4-10.2); Carbon Dioxide 30 mmol/L (22-29); Chloride 104 mmol/L (96-108); Estimated Glomerular Filt Rate > 60; Glucose Random 135 mg/dL (60-115); Potassium 4.4 mmol/L (3.3-5.1); Sodium 143 mmol/L (135-145); Total Protein 6.8 g/dL (6.5-8.0)
== END 2021-12-28 12:37 | disposition home or self-care (01) ==
LOC: HO.HVNA 12:36
PROVIDERS: Visit Provider Internal Medicine
DX: A41.9 Sepsis, unspecified organism (principal)
CPT/HCPCS: 36415; 80048; 80076; 85025

== ENCOUNTER 2021-12-30 13:02 | Emergency (ER) | payer MEDICARE, MEDICAID, SELFPAY ==
[2021-12-30 13:04] VITALS: BP 134/71; PULSE 87; RESP 18; TEMP 37.2; O2SAT 93; BMI 16.7
--- NOTE | 2021-12-30 16:37 | ED_ITS ---
HPI - Male Genitourinary General Chief complaint: Urogenital-Male Stated complaint: bleeding from penis Time Seen by Provider: 12/30/21 16:11 Source: patient Mode of arrival: ambulatory History of Present Illness HPI Narrative: 81-year-old male with a past medical history of COPD, bronchiectasis, mi a infection s/p treatment, history of ESBL E coli in sputum, discharge from our facility on 12/14 with new onset AFib/sepsis/pneumonia and Schwarz catheter placement due to urinary retention presenting to the ED complaining of maroon/blood-tinged urine in Schwarz catheter bag 2 days ago. Admit symptoms lasted for 2 days are resolved at present. Denies known trauma, dysuria, urinary frequency, fever, abdominal pain, flank pain Onset (ago): day(s) Related Data Home Medications Medication Instructions Recorded Confirmed brimonidine 0.2 %-timolol 0.5 % 1 drp ophthalmic (eye) BID 03/08/21 12/21/21 eye drops (Combigan) travoprost 0.004 % eye drops 1 drp ophthalmic (eye) BEDTIME 03/08/21 12/21/21 prednisone 5 mg tablet 2 tab PO DAILY 12/07/21 12/21/21 Previous Rx's Medication Instructions Recorded omeprazole 40 mg capsule,delayed 40 mg PO DAILY #90 caps 02/22/21 release sacubitril 24 mg-valsartan 26 mg 1 tab PO BID 90 days #180 tabs 07/19/21 tablet (Entresto) doxycycline monohydrate 100 mg 100 mg PO MOWEFR #14 caps 08/05/21 capsule ipratropium 0.5 mg-albuterol 3 mg 3 ml inhalation QID PRN for 08/31/21 (2.5 mg base)/3 mL nebulization dyspnea #180 mL soln albuterol sulfate 90 mcg/actuation 2 puff inhalation Q4H PRN 10/30/21 aerosol inhaler shortness of breath or wheezing #8.5 grams lovastatin 10 mg tablet 10 mg PO DAILY 90 days #90 tabs 11/08/21 apixaban 5 mg tablet (Eliquis) 5 mg PO BID #60 tabs 12/13/21 carvedilol 12.5 mg tablet 12.5 mg PO BID #60 tabs 12/13/21 tamsulosin 0.4 mg capsule 0.4 mg PO DAILY #30 caps 12/13/21 docusate sodium 100 mg capsule 100 mg PO BID #60 caps 12/14/21 polyethylene glycol 3350 17 gram 17 g PO DAILY PRN constipation #30 12/14/21 oral powder packet ea cefuroxime axetil 250 mg tablet 250 mg PO BID 7 days #14 tabs 12/30/21 Allergies Allergy/AdvReac Type Severity Reaction Status Date / Time Penicillins [PENICILLINS] Allergy Intermediate PASSED Verified 12/22/21 10:58 OUT trazodone Allergy Intermediate tremors Verified 12/22/21 10:58 Review of Systems Review of Systems: Constitutional: No Fever, No Chills, No Fatigue, No Malaise ENT/Mouth: No Ear Pain, No Nasal Congestion, No sore throat, No Rhinorrhea, No Swallowing Difficulty Eyes: No Eye Pain, No Swelling, No Redness, No Vision Changes Cardiovascular: No Chest Pain, No SOB, No Palpitations Respiratory: No Cough, No Sputum, No Dyspnea Gastrointestinal: No Nausea, No Vomiting, No Diarrhea, No Constipation, No Abdominal pain Genitourinary: + irregular bleeding, No Dysuria, No Urinary Frequency, No Hematuria, No Urinary Incontinence/retention, No Urgency, No Flank Pain, No Urinary Flow Changes, No Hesitancy Musculoskeletal: No joint pain, No Myalgias, No Joint Swelling Skin: No Skin Lesions, No rash Neuro: No Weakness, No Loss of Consciousness, No Dizziness, No Headache Yes all other systems are reviewed and are negative Constitutional: Constitutional: Reports as per [facility] Past Medical History Attestation statement: The following information was validated with the patient. Medical History Bronchiectasis Bronchiectasis with (acute) exacerbation Bronchitis Bronchitis Congestive heart failure COPD (chronic obstructive pulmonary disease) COPD (chronic obstructive pulmonary disease) COPD exacerbation Essential hypertension GERD (gastroesophageal reflux disease) Glaucoma Hearing loss Hernia History of MAC infection Hypoxia JESSA (mycobacterium avium-intracellulare) Medicare annual wellness visit, initial Medicare annual wellness visit, subsequent New onset atrial fibrillation NICM (nonischemic cardiomyopathy) Paroxysmal atrial fibrillation Pure hypercholesterolemia Surgical History History of cystoscopy History of lumbar surgery History of rectal polypectomy Family History Family History Father No problems noted. Mother Medical history unknown Sister Diabetes Daughter In good health Son In good health Brother No problems noted. Social History Social History Household Members: None Housing: Apartment Alcohol intake: unknown Patient Tobacco Use Status: Former Tobacco user Quit Date: 6 years ago e-Cigarette/Vaping Use: Never Used Second Hand Smoke Exposure: No Advance Directives: Yes Advance Directives on File: Yes Advance Directives Date on File: 07/12/21 service: No Current occupational status: disabled Cognitive needs: No Hearing needs: Yes Vision needs: Yes Physical Exam Vital Signs: Vital Signs: Last Vital Signs Temp 98.9 F 12/30/21 13:04 Pulse 87 12/30/21 13:04 Resp 18 12/30/21 13:04 BP 134/71 12/30/21 13:04 Pulse Ox 93 12/30/21 13:04 O2 Del Method 12/30/21 13:04 BMI result Body Mass Index 16.7 Const: General: cooperative, healthy appearing and no acute distress Orientation/consciousness: patient oriented x3 Limitations: no limitations HEENT: Head: Yes normal to inspection and Yes atraumatic Ears: hearing grossly normal bilaterally General nose exam: Normal external nose present Face and sinus: Yes normal facial exam Eyes: General: appearance normal, both eyes and all related structures EOM: EOMs intact bilaterally Neck: Neck: Yes normal visual inspection and Yes no meningeal signs Resp: Effort & Inspection: normal respiratory effort and no respiratory distress Cardio: Rate: regular rate Heart sounds: S1 normal heart sound present and S2 normal heart sound present GI: Inspection: Yes normal to inspection Palpation (GI): Soft to palpation, nontender, no guarding and not rigid : Other: Schwarz catheter in place, no evidence of trauma. Concentrated urine in Schwarz catheter bag, no gross hematuria General: Yes no CVA tenderness Male General Exam: Yes normal external exam Penis: normal penis and uncircumcised Back/Spine/Pelvis: Back: no CVA tenderness Skin: Rashes: no rashes Wounds: no wounds Neuro: General: patient oriented x3, tone normal and no meningeal signs Gait exam (Neuro): Normal gait present Extrem: General: Yes normal to inspection Course Course Course Narrative: -1949--UA infected Results discussed with patient including worrisome signs and symptoms and strict return precautions, and when to return to the emergency department. They verbalized understanding and feel safe for discharge at this time. MDM - Male Genitourinary MDM Narrative Medical decision making narrative: 81-year-old male with a past medical history of COPD, bronchiectasis, mi a infection s/p treatment, history of ESBL E coli in sputum, discharge from our facility on 12/14 with new onset AFib/sepsis/pneumonia and Schwarz catheter placement due to urinary retention presenting to the ED complaining of maroon/blood-tinged urine in Schwarz catheter bag 2 days ago. On exam vital signs stable, NAD, nontoxic appearing, abdomen soft/nontender, no CVA tenderness. Urine appears concentrated without gross hematuria in Schwarz catheter bag. Co ncern for UTI. Low suspicion for appendicitis/diverticulitis, renal stone or pyelo Plan: UA Differential Diagnosis Differential diagnosis: Likely urinary tract infection Medical Records Attestation: I reviewed the patient's medical records. Lab Data Attestation: I reviewed the patient's lab results. Labs: Lab Results 12/30/21 Range/Units 19:22 Urine Color Yellow Urine Appearance Turbid Urine pH 8.5 (5.0-9.0) Ur Specific [place] 1.020 (1.005-1.025) Urine Protein 30 (1+) H (Neg-Trace) mg/dL Urine Glucose (UA) Negative (Negative) mg/dL Urine Ketones Negative (Negative) mg/dL Urine Blood Large (3+) H (Negative) Urine Nitrite Negative (Negative) Ur Leukocyte Esterase Small (1+) H (Negative) Urine RBC >20 H (0-2) /HPF Urine WBC 21-50 H (0-5) /HPF Ur Squamous Epith Cells 0-2 (0-2) /HPF Urine Bacteria None Seen (None Seen) Hyaline Casts 0-2 (0-2) /LPF Discharge Plan Discharge Clinical Impression: UTI (urinary tract infection) Patient Disposition: Home, Self-Care Instructions: Catheter-associated Urinary Tract Infection (ED) Additional Instructions: Your urine is infected Ceftin as an antibiotic please take as prescribed If you develop blood in your urine, abdominal pain, fever, or flank pain return to the emergency department Please follow-up with her doctor in Urology, call to make an appointment, you need your catheter taken out Tu orina est? infectada. Ceftin clement antibi?gil, t?pinzon seg?n lo prescrito Si presenta maciel en la orina, dolor abdominal, fiebre o dolor en el costado, regrese al departamento de emergencias. Por favor seguimiento con coffey m?dico en Urolog?a, llame para hacer jean cindy, necesita que le saquen el cat?ter Prescriptions: New cefuroxime axetil 250 mg tablet 250 mg PO BID 7 Days Qty: 14 0RF No Action omeprazole 40 mg capsule,delayed release(DR/EC) 40 mg PO DAILY Qty: 90 3RF Entresto 24-26 mg tablet 1 tab PO BID 90 Days Qty: 180 3RF doxycycline monohydrate 100 mg capsule 100 mg PO MOWEFR Qty: 14 3RF ipratropium-albuterol 0.5 mg-3 mg(2.5 mg base)/3 mL solution for nebulization 3 ml inhalation QID PRN (Reason: for dyspnea) Qty: 180 0RF albuterol sulfate 90 mcg/actuation HFA aerosol inhaler 2 puff inhalation Q4H PRN (Reason: shortness of breath or wheezing) Qty: 8.5 4RF lovastatin 10 mg tablet 10 mg PO DAILY 90 Days Qty: 90 3RF travoprost 0.004 % drops 1 drp ophthalmic (eye) BEDTIME brimonidine-timolol [Combigan] 0.2-0.5 % drops 1 drp ophthalmic (eye) BID prednisone 5 mg tablet 2 tab PO DAILY tamsulosin 0.4 mg Capsule 0.4 mg PO DAILY Qty: 30 0RF Eliquis 5 mg Tablet 5 mg PO BID Qty: 60 0RF carvedilol 12.5 mg Tablet 12.5 mg PO BID Qty: 60 0RF Protocol: Hold for SBP/HR < HOLD for SBP < : 90 HOLD for HR < : 60 polyethylene glycol 3350 17 gram Powder In Packet 17 g PO DAILY PRN (Reason: constipation) Qty: 30 0RF docusate sodium 100 mg Capsule 100 mg PO BID Qty: 60 0RF Referrals: [facility] [place] Urology Services [Provider Group] - 5 days Interventions: ED Discharge Assessment Last Done: 12/30/21 20:03 Discharge Date/Time: 12/30/21 20:06 Print Language: Belarusian
[2021-12-30 19:31] LABS: Appearance Urine Turbid; Color Urine Yellow; Glucose Urine UA Negative (Negative); Leukocyte Esterase Urine Small (1+) (Negative); Nitrite Urine Negative (Negative); PH 8.5 (5.0-9.0); UMIC TRIGGER UACC YES; Urine Blood Large (3+) (Negative); Urine Ketones Negative (Negative); Urine Protein 30 (1+) mg/dL (Neg-Trace)
[2021-12-30 19:46] LABS: Bacteria Urine None Seen (None Seen); Hyaline Casts Urine 0-2 /LPF (0-2); RBC Urine >20 /HPF (0-2); Squamous Epithelial Cell Urine 0-2 /HPF (0-2); UACC Culture Trigger YES; WBC Urine 21-50 /HPF (0-5)
== END 2021-12-30 20:06 | disposition home or self-care (01) ==
PROVIDERS: Emergency Provider Emergency Medicine; PCP Internal Medicine
DX: T83.511A Infection and inflammatory reaction due to indwelling urethral catheter, initial encounter (principal); N39.0 Urinary tract infection, site not specified; B95.2 Enterococcus as the cause of diseases classified elsewhere; I10 Essential (primary) hypertension; E78.00 Pure hypercholesterolemia, unspecified; I48.0 Paroxysmal atrial fibrillation; Z79.02 Long term (current) use of antithrombotics/antiplatelets; Z79.899 Other long term (current) drug therapy; Z79.01 Long term (current) use of anticoagulants
CPT/HCPCS: 81001; 87086; 87088; 87186; 99282; 99283

== ENCOUNTER 2022-01-03 13:18 | Outpatient (REF) | payer MEDICARE, MEDICAID, SELFPAY ==
--- NOTE | 2022-01-03 15:50 | PFT_ITS ---
Forced vital capacity 68%, FEV1 50%, FEV1/FVC ratio is 54. [id number] 28% and MVV 43%. Bronchodilator challenge was not given because the patient had used albuterol updraft just within 2 hours before the test. Total lung capacity 66%. Residual volume 76%. Diffusion capacity 45% CONCLUSION: 1. Obstructive airway disorder, severe. 2. Possible moderate degree of restrictive lung disorder. Clinical correlation is recommended. MD CORAZON Henderson/NESSA / [phone]
== END 2022-01-03 13:19 | disposition home or self-care (01) ==
LOC: HO.RESP 13:18
PROVIDERS: PCP Internal Medicine; Visit Provider Internal Medicine Pulmonary Disease
DX: J44.9 Chronic obstructive pulmonary disease, unspecified (principal)
CPT/HCPCS: 94010; 94727; 94729

== ENCOUNTER 2022-01-04 11:53 | Outpatient (REF) | payer MEDICARE, MEDICAID, SELFPAY ==
[2022-01-04 11:58] LABS: MANUAL DIFF FLAG NO
[2022-01-04 12:14] LABS: Basophils Absolute Auto 0.1 X10*3/uL (0.0-0.2); Basophils Percent Auto 0.6 % (0-2); Eosinophils Absolute Auto 0.5 X10*3/uL (0.0-0.4); Eosinophils Percent Auto 5.9 % (0-4); Hematocrit 41.3 % (42.0-52.0); Hemoglobin 13.1 g/dl (14.0-18.0); Imm Gran Abs Auto 0.07 X10*3/uL (0.00-0.03); Imm Gran Pct Auto 0.8 % (0.0-0.4); Lymphocytes Absolute Auto 0.9 X10*3/uL (1.2-4.9); Lymphocytes Percent Auto 9.6 % (20-40); Mean Corpuscular HGB Conc 31.7 g/dl (31.0-36.0); Mean Corpuscular Hemoglobin 28.1 pg (27.0-33.0); Mean Corpuscular Volume 88.6 fL (80.0-98.0); Mean Platelet Volume 9.5 fL (9.4-12.4); Monocytes Absolute Auto 0.7 X10*3/uL (0.1-1.2); Monocytes Percent Auto 8.1 % (2-11); Neutrophils Absolute Auto 6.8 x10*3/uL (2.0-8.3); Platelet Count 238 X10*3/uL (160-400); Red Blood Count 4.66 X10*6/uL (4.60-5.80); Red Cell Distribution Width 13.7 % (11.0-16.0)
[2022-01-04 12:56] LABS: Alanine Aminotransferase 27 U/L (0-40); Albumin Level 3.5 g/dL (3.5-5.0); Alkaline Phosphatase 76 U/L (39-117); Anion Gap 15 (12-20); Aspartate Amino Transferase 21 U/L (5-37); Bilirubin Direct < 0.2 mg/dL (0.0-0.5); Bilirubin Total < 0.2 mg/dL (0.0-1.0); Blood Urea Nitrogen 11 mg/dL (9-16); Calcium 8.7 mg/dL (8.4-10.2); Carbon Dioxide 28 mmol/L (22-29); Chloride 104 mmol/L (96-108); Estimated Glomerular Filt Rate > 60; Glucose Random 104 mg/dL (60-115); Potassium 3.7 mmol/L (3.3-5.1); Sodium 143 mmol/L (135-145); Total Protein 6.8 g/dL (6.5-8.0)
== END 2022-01-04 11:54 | disposition home or self-care (01) ==
LOC: HO.HVNA 11:53
PROVIDERS: Visit Provider Internal Medicine Pulmonary Disease
DX: A41.9 Sepsis, unspecified organism (principal)
CPT/HCPCS: 80048; 80076; 85025

== ENCOUNTER 2022-01-05 10:16 | Emergency (ER) | payer MEDICARE, MEDICAID, SELFPAY ==
[2022-01-05 10:22] VITALS: BP 146/83; PULSE 89; RESP 20; TEMP 36.9; O2SAT 93; BMI 25.2
--- NOTE | 2022-01-05 10:37 | ED.GENADULT ---
HPI - General Adult General Chief complaint: General Medical Stated complaint: needs iv antibiotics Time Seen by Provider: 01/05/22 10:32 Source: patient, old records reviewed and foreign language interpreter Mode of arrival: ambulatory Limitations: other (very poor historian) History of Present Illness HPI narrative: 81 yo male with hx of COPD, ESBL, HTN, HLD, GERD, bronchiectasis, CHF, seen here on 12/30 sent home with ceftin for UTI dx with VRE called today for urine results and told to come to ED for IV antibiotics. He comes in stating his urine is still dark. He is not a good historian. Currently has R PICC for Ertapenem infusions until start of January for ESBL bronchiectasis infection. He states catheter has been in x 3 weeks MD complaint: abnormal urine test VRE Onset (ago): day(s) (12/30) Location: genitals Radiation: non-radiation Severity: mild Relieving factors: none Exacerbating factors: none Associated symptoms: other (chronic cough and dyspnea does not wear O2) Treatments prior to arrival: other (on ertapenem) Related Data Home Medications Medication Instructions Recorded Confirmed brimonidine 0.2 %-timolol 0.5 % 1 drp ophthalmic (eye) BID 03/08/21 12/21/21 eye drops (Combigan) travoprost 0.004 % eye drops 1 drp ophthalmic (eye) BEDTIME 03/08/21 12/21/21 mirabegron 25 mg tablet,extended 1 tab PO DAILY 01/05/22 release 24 hr (Myrbetriq) Previous Rx's Medication Instructions Recorded omeprazole 40 mg capsule,delayed 40 mg PO DAILY #90 caps 02/22/21 release sacubitril 24 mg-valsartan 26 mg 1 tab PO BID 90 days #180 tabs 07/19/21 tablet (Entresto) doxycycline monohydrate 100 mg 100 mg PO MOWEFR #14 caps 08/05/21 capsule ipratropium 0.5 mg-albuterol 3 mg 3 ml inhalation QID PRN for 08/31/21 (2.5 mg base)/3 mL nebulization dyspnea #180 mL soln albuterol sulfate 90 mcg/actuation 2 puff inhalation Q4H PRN 10/30/21 aerosol inhaler shortness of breath or wheezing #8.5 grams lovastatin 10 mg tablet 10 mg PO DAILY 90 days #90 tabs 11/08/21 apixaban 5 mg tablet (Eliquis) 5 mg PO BID #60 tabs 12/13/21 carvedilol 12.5 mg tablet 12.5 mg PO BID #60 tabs 12/13/21 tamsulosin 0.4 mg capsule 0.4 mg PO DAILY #30 caps 12/13/21 docusate sodium 100 mg capsule 100 mg PO BID #60 caps 12/14/21 polyethylene glycol 3350 17 gram 17 g PO DAILY PRN constipation #30 12/14/21 oral powder packet ea cefuroxime axetil 250 mg tablet 250 mg PO BID 7 days #14 tabs 12/30/21 Allergies Allergy/AdvReac Type Severity Reaction Status Date / Time Penicillins [PENICILLINS] Allergy Intermediate PASSED Verified 12/22/21 10:58 OUT trazodone Allergy Intermediate tremors Verified 12/22/21 10:58 Review of Systems Review of Systems: Constitutional : No Fever, No Chills ENT/Mouth : No sore throat, No Rhinorrhea, No Swallowing Difficulty Eyes: No Eye Pain, No Swelling, No Redness Cardiovascular : No Chest Pain, positive SOB, No Orthopnea, no Edema Respiratory : pos Cough, No Sputum, pos Wheezing, positive dyspnea Gastrointestinal : No Nausea, No Vomiting, No Diarrhea, No abdominal Pain, No Hematochezia, No Melena Genitourinary : No Dysuria, No Urinary Frequency, pos Hematuria Musculoskeletal : No joint pain, No Myalgias Skin : No Skin Lesions, No rash Neuro : No Weakness, No Numbness, No Dizziness, No Headache Psych : No Anxiety/Panic, No Depression Heme/Lymph: No Bruising, No Lymphadenopathy Endocrine : No Polyuria, No Polydipsia All other systems reviewed and are negative [facility] Past Medical History Attestation statement: The following information was validated with the patient. Medical History Bronchiectasis Bronchiectasis with (acute) exacerbation Bronchitis Bronchitis Congestive heart failure COPD (chronic obstructive pulmonary disease) COPD (chronic obstructive pulmonary disease) COPD exacerbation Essential hypertension GERD (gastroesophageal reflux disease) Glaucoma Hearing loss Hernia History of MAC infection Hypoxia JESSA (mycobacterium avium-intracellulare) Medicare annual wellness visit, initial Medicare annual wellness visit, subsequent New onset atrial fibrillation NICM (nonischemic cardiomyopathy) Paroxysmal atrial fibrillation Pure hypercholesterolemia Surgical History History of cystoscopy History of lumbar surgery History of rectal polypectomy Family History Family History Father No problems noted. Mother Medical history unknown Sister Diabetes Daughter In good health Son In good health Brother No problems noted. Social History Social History Household Members: None Housing: Apartment Alcohol intake: unknown Patient Tobacco Use Status: Former Tobacco user Quit Date: 6 years ago e-Cigarette/Vaping Use: Never Used Second Hand Smoke Exposure: No Advance Directives: Yes Advance Directives on File: Yes Advance Directives Date on File: 07/12/21 service: No Current occupational status: disabled Cognitive needs: No Hearing needs: Yes Vision needs: Yes Physical Exam ED Vital Signs: Vital Signs - 24 hr 01/05/22 10:22 01/05/22 11:32 Temperature 98.5 F Pulse Rate 89 77 Respiratory Rate 20 16 Blood Pressure 146/83 H Pulse Oximetry 93 Oxygen Delivery Method Room Air BMI result Body Mass Index 25.2 Appearance: Alert. Oriented X3. No acute distress. Eyes: Pupils equal, round and reactive to light. ENT: Pharynx normal. Neck: Normal inspection. Neck supple. CVS: Normal heart rate and rhythm. Pulses normal. Respiratory: No respiratory distress. Breath sounds coarse and mild wheezes noted exp on exam Abdomen: Soft and nontender. : dark urine noted tea colored Skin: Skin warm and dry. Normal skin color. Normal skin turgor. Extremities: No lower extremity edema. No calf ttp Neuro: Oriented X 3. No motor deficit. No sensory deficit. Course Course Course Narrative: discussed with Dr. Cordero labs and clinical presentation presenting 6 days later would not treat at this time, suspect urine taken from catheter bag, no fevers, no vomiting, WBC count, neg lactic acid Medical Decision Making MDM Narrative Medical decision making narrative: 81 yo male with hx of COPD, ESBL, HTN, HLD, GERD, bronchiectasis currently on PICC line ertapenem infusions, CHF, DOAC use, seen here on 12/30 sent home with ceftin for UTI dx with VRE at this time will repeat labs, cultures, UA, change [place] send off UA - if it appears infected again will start linezolid and admit patient. Patient coming in 6 days later from culture with stable VS and no complaints. Lab Data Result diagrams: 01/05/22 10:57 01/05/22 10:56 Labs: Lab Results 01/05/22 01/05/22 01/05/22 Range/Units 10:56 10:56 10:56 WBC (4.8-10.8) X10*3/uL RBC (4.60-5.80) X10*6/uL Hgb (14.0-18.0) g/dl Hct (42.0-52.0) % MCV (80.0-98.0) fL MCH (27.0-33.0) pg MCHC (31.0-36.0) g/dl RDW (11.0-16.0) % Plt Count (160-400) X10*3/uL MPV (9.4-12.4) fL Immature Gran % (Auto) (0.0-0.4) % Neut % (Auto) (45-73) % Lymph % (Auto) (20-40) % Bacon % (Auto) (2-11) % Eos % (Auto) (0-4) % Baso % (Auto) (0-2) % Lymph # (Auto) (1.2-4.9) X10*3/uL Bacon # (Auto) (0.1-1.2) X10*3/uL Eos # (Auto) (0.0-0.4) X10*3/uL Baso # (Auto) (0.0-0.2) X10*3/uL Abs Immat Gran (auto) (0.00-0.03) X10*3/uL Absolute Neuts (auto) (2.0-8.3) x10*3/uL Absolute Nucleated RBC (0.0-0.012) X10*3/uL Nucleated RBC % (auto) (0.0-0.2) /100WBC PT (10.0-13.1) SEC INR (0.9-1.1) Sodium 141 (135-145) mmol/L Potassium 3.8 (3.3-5.1) mmol/L Chloride 105 (96-108) mmol/L Carbon Dioxide 27 (22-29) mmol/L Anion Gap 13 (12-20) BUN 11 (9-16) mg/dL Creatinine 0.74 (0.5-1.4) mg/dL Estim Creat Clear Calc 73.0 Estimated GFR > 60 Random Glucose 116 H (60-115) mg/dL Lactic Acid 0.8 (0.5-2.0) mmol/L Calcium 8.5 (8.4-10.2) mg/dL Magnesium 1.9 (1.6-2.6) mg/dL Total Bilirubin 0.2 (0.0-1.0) mg/dL Direct Bilirubin < 0.2 (0.0-0.5) mg/dL AST 16 (5-37) U/L ALT 20 (0-40) U/L Alkaline Phosphatase 74 (39-117) U/L Total Protein 6.8 (6.5-8.0) g/dL Albumin 3.5 (3.5-5.0) g/dL Urine Color Urine Appearance Urine pH (5.0-9.0) Ur Specific [place] (1.005-1.025) Urine Protein (Neg-Trace) mg/dL Urine Glucose (UA) (Negative) mg/dL Urine Ketones (Negative) mg/dL Urine Blood (Negative) Urine Nitrite (Negative) Ur Leukocyte Esterase (Negative) Urine RBC (0-2) /HPF Urine WBC (0-5) /HPF Ur Squamous Epith Cells (0-2) /HPF Urine Bacteria (None Seen) Hyaline Casts (0-2) /LPF COVID-19 (BONNIE) Negative (Negative) COVID-19 Clin Com See Note 01/05/22 01/05/22 01/05/22 Range/Units 10:57 10:57 12:09 WBC 9.0 (4.8-10.8) X10*3/uL RBC 4.63 (4.60-5.80) X10*6/uL Hgb 12.9 L (14.0-18.0) g/dl Hct 40.4 L (42.0-52.0) % MCV 87.3 (80.0-98.0) fL MCH 27.9 (27.0-33.0) pg MCHC 31.9 (31.0-36.0) g/dl RDW 13.4 (11.0-16.0) % Plt Count 211 (160-400) X10*3/uL MPV 9.2 L (9.4-12.4) fL Immature Gran % (Auto) 0.8 H (0.0-0.4) % Neut % (Auto) 75.9 H (45-73) % Lymph % (Auto) 8.6 L (20-40) % Bacon % (Auto) 8.1 (2-11) % Eos % (Auto) 5.9 H (0-4) % Baso % (Auto) 0.7 (0-2) % Lymph # (Auto) 0.8 L (1.2-4.9) X10*3/uL Bacon # (Auto) 0.7 (0.1-1.2) X10*3/uL Eos # (Auto) 0.5 H (0.0-0.4) X10*3/uL Baso # (Auto) 0.1 (0.0-0.2) X10*3/uL Abs Immat Gran (auto) 0.07 H (0.00-0.03) X10*3/uL Absolute Neuts (auto) 6.8 (2.0-8.3) x10*3/uL Absolute Nucleated RBC 0.000 (0.0-0.012) X10*3/uL Nucleated RBC % (auto) 0.0 (0.0-0.2) /100WBC PT 15.5 H (10.0-13.1) SEC INR 1.3 H (0.9-1.1) Sodium (135-145) mmol/L Potassium (3.3-5.1) mmol/L Chloride (96-108) mmol/L Carbon Dioxide (22-29) mmol/L Anion Gap (12-20) BUN (9-16) mg/dL Creatinine (0.5-1.4) mg/dL Estim Creat Clear Calc Estimated GFR Random Glucose (60-115) mg/dL Lactic Acid (0.5-2.0) mmol/L Calcium (8.4-10.2) mg/dL Magnesium (1.6-2.6) mg/dL Total Bilirubin (0.0-1.0) mg/dL Direct Bilirubin (0.0-0.5) mg/dL AST (5-37) U/L ALT (0-40) U/L Alkaline Phosphatase (39-117) U/L Total Protein (6.5-8.0) g/dL Albumin (3.5-5.0) g/dL Urine Color Yellow Urine Appearance Cloudy Urine pH 8.5 (5.0-9.0) Ur Specific [place] 1.010 (1.005-1.025) Urine Protein Trace (Neg-Trace) mg/dL Urine Glucose (UA) Negative (Negative) mg/dL Urine Ketones Negative (Negative) mg/dL Urine Blood Large (3+) H (Negative) Urine Nitrite Negative (Negative) Ur Leukocyte Esterase Small (1+) H (Negative) Urine RBC >20 H (0-2) /HPF Urine WBC 21-50 H (0-5) /HPF Ur Squamous Epith Cells 0-2 (0-2) /HPF Urine Bacteria None Seen (None Seen) Hyaline Casts 0-2 (0-2) /LPF COVID-19 (BONNIE) (Negative) COVID-19 Clin Com Discharge Plan Discharge Clinical Impression: Encounter for [place] catheter replacement Patient Disposition: Home, Self-Care Instructions: [place] Catheter Placement and Care (ED) Additional Instructions: return to ED for any worsening symptoms or concerns please follow up with all of your doctor appointments as scheduled regresar al servicio de urgencias por cualquier empeoramiento de los s?ntomas o inquietudes por favor ruthann un seguimiento con todas candida citas m?dicas seg?n lo programado Prescriptions: No Action omeprazole 40 mg capsule,delayed release(DR/EC) 40 mg PO DAILY Qty: 90 3RF Entresto 24-26 mg tablet 1 tab PO BID 90 Days Qty: 180 3RF doxycycline monohydrate 100 mg capsule 100 mg PO MOWEFR Qty: 14 3RF ipratropium-albuterol 0.5 mg-3 mg(2.5 mg base)/3 mL solution for nebulization 3 ml inhalation QID PRN (Reason: for dyspnea) Qty: 180 0RF albuterol sulfate 90 mcg/actuation HFA aerosol inhaler 2 puff inhalation Q4H PRN (Reason: shortness of breath or wheezing) Qty: 8.5 4RF lovastatin 10 mg tablet 10 mg PO DAILY 90 Days Qty: 90 3RF travoprost 0.004 % drops 1 drp ophthalmic (eye) BEDTIME brimonidine-timolol [Combigan] 0.2-0.5 % drops 1 drp ophthalmic (eye) BID tamsulosin 0.4 mg Capsule 0.4 mg PO DAILY Qty: 30 0RF Eliquis 5 mg Tablet 5 mg PO BID Qty: 60 0RF carvedilol 12.5 mg Tablet 12.5 mg PO BID Qty: 60 0RF Protocol: Hold for SBP/HR < HOLD for SBP < : 90 HOLD for HR < : 60 polyethylene glycol 3350 17 gram Powder In Packet 17 g PO DAILY PRN (Reason: constipation) Qty: 30 0RF docusate sodium 100 mg Capsule 100 mg PO BID Qty: 60 0RF cefuroxime axetil 250 mg tablet 250 mg PO BID 7 Days Qty: 14 0RF Myrbetriq 25 mg tablet extended release 24 hr 1 tab PO DAILY Print Language: Hungarian
[2022-01-05 11:02] LABS: MANUAL DIFF FLAG NO
[2022-01-05 11:07] LABS: Basophils Absolute Auto 0.1 X10*3/uL (0.0-0.2); Basophils Percent Auto 0.7 % (0-2); Eosinophils Absolute Auto 0.5 X10*3/uL (0.0-0.4); Eosinophils Percent Auto 5.9 % (0-4); Hematocrit 40.4 % (42.0-52.0); Hemoglobin 12.9 g/dl (14.0-18.0); Imm Gran Abs Auto 0.07 X10*3/uL (0.00-0.03); Imm Gran Pct Auto 0.8 % (0.0-0.4); Lymphocytes Absolute Auto 0.8 X10*3/uL (1.2-4.9); Lymphocytes Percent Auto 8.6 % (20-40); Mean Corpuscular HGB Conc 31.9 g/dl (31.0-36.0); Mean Corpuscular Hemoglobin 27.9 pg (27.0-33.0); Mean Corpuscular Volume 87.3 fL (80.0-98.0); Mean Platelet Volume 9.2 fL (9.4-12.4); Monocytes Absolute Auto 0.7 X10*3/uL (0.1-1.2); Monocytes Percent Auto 8.1 % (2-11); Neutrophils Absolute Auto 6.8 x10*3/uL (2.0-8.3); Neutrophils Percent Auto 75.9 % (45-73); Platelet Count 211 X10*3/uL (160-400); Red Blood Count 4.63 X10*6/uL (4.60-5.80); Red Cell Distribution Width 13.4 % (11.0-16.0)
[2022-01-05 11:14] LABS: Lactic Acid 0.8 mmol/L (0.5-2.0)
[2022-01-05 11:14] LABS: INTERNATIONAL NORM RATIO 1.3 (0.9-1.1); Prothrombin Time 15.5 SEC (10.0-13.1)
[2022-01-05 11:19] LABS: Alanine Aminotransferase 20 U/L (0-40); Albumin Level 3.5 g/dL (3.5-5.0); Alkaline Phosphatase 74 U/L (39-117); Anion Gap 13 (12-20); Aspartate Amino Transferase 16 U/L (5-37); Bilirubin Direct < 0.2 mg/dL (0.0-0.5); Bilirubin Total 0.2 mg/dL (0.0-1.0); Blood Urea Nitrogen 11 mg/dL (9-16); Calcium 8.5 mg/dL (8.4-10.2); Carbon Dioxide 27 mmol/L (22-29); Chloride 105 mmol/L (96-108); Estimated Glomerular Filt Rate > 60; Glucose Random 116 mg/dL (60-115); Magnesium 1.9 mg/dL (1.6-2.6); Potassium 3.8 mmol/L (3.3-5.1); Sodium 141 mmol/L (135-145); Total Protein 6.8 g/dL (6.5-8.0)
[2022-01-05 11:26] LABS: COVID-19 Test Negative (Negative); IDNOW Serial# 9DB6401D
[2022-01-05] MEDS: Albuterol/Iprat 2.5/0.5MG 3 ML AMPUL.NEB INHALE (11:31)
[2022-01-05 11:32] VITALS: PULSE 77; RESP 16; O2SAT 97
[2022-01-05 12:34] LABS: Appearance Urine Cloudy; Color Urine Yellow; Glucose Urine UA Negative (Negative); Leukocyte Esterase Urine Small (1+) (Negative); Nitrite Urine Negative (Negative); PH 8.5 (5.0-9.0); UMIC TRIGGER UACC YES; Urine Blood Large (3+) (Negative); Urine Ketones Negative (Negative); Urine Protein Trace mg/dL (Neg-Trace)
[2022-01-05 12:40] LABS: Bacteria Urine None Seen (None Seen); Hyaline Casts Urine 0-2 /LPF (0-2); RBC Urine >20 /HPF (0-2); Squamous Epithelial Cell Urine 0-2 /HPF (0-2); UACC Culture Trigger YES; WBC Urine 21-50 /HPF (0-5)
== END 2022-01-05 14:00 | disposition home or self-care (01) ==
PROVIDERS: Emergency Provider Emergency Medicine; PCP Internal Medicine
DX: T83.9XXA Unspecified complication of genitourinary prosthetic device, implant and graft, initial encounter (principal); Y82.9 Unspecified medical devices associated with adverse incidents; Y92.9 Unspecified place or not applicable; Z20.822 Contact with and (suspected) exposure to COVID-19; Z79.899 Other long term (current) drug therapy
CPT/HCPCS: 80048; 80076; 81001; 83605; 83735; 85025; 85610; 87040; 87086; 87635; 94640; 99284

== ENCOUNTER → 2022-01-06 11:02 | Outpatient (BNVA) | payer MEDICARE, MEDICAID, SELFPAY | PROVIDERS: PCP Internal Medicine; Visit Provider Urology | DX: N40.1 Benign prostatic hyperplasia with lower urinary tract symptoms (principal); R31.9 Hematuria, unspecified; R33.9 Retention of urine, unspecified | CPT/HCPCS: 99202 ==

== ENCOUNTER → 2022-01-10 12:52 | Outpatient (BNVA) | payer MEDICARE, MEDICAID, SELFPAY | PROVIDERS: PCP Internal Medicine; Visit Provider Internal Medicine Pulmonary Disease | DX: J47.1 Bronchiectasis with (acute) exacerbation (principal); J44.9 Chronic obstructive pulmonary disease, unspecified | CPT/HCPCS: 99212 ==

== ENCOUNTER → 2022-01-11 09:20 | Outpatient (BNVA) | payer MEDICARE, MEDICAID, SELFPAY | PROVIDERS: PCP Internal Medicine; Visit Provider Urology | DX: R33.9 Retention of urine, unspecified (principal) | CPT/HCPCS: 51700; 51702 ==

== ENCOUNTER 2022-01-13 08:01 | Outpatient (REF) | payer MEDICARE, MEDICAID, SELFPAY ==
--- NOTE | ~2022-01-13 | CT_ITS ---
EXAMINATION: CT ABDOMEN AND PELVIS WITHOUT AND WITH CONTRAST CLINICAL INFORMATION: Hematuria COMPARISON: Previous CT of the abdomen and pelvis from 2015 TECHNIQUE: Multidetector volumetric imaging was performed of the abdomen and pelvis before and after the IV administration of 85 mL of Omnipaque 350 intravenous contrast. Sagittal and coronal reformatted images were obtained on the technologist's workstation. This CT examination was performed using dose optimization techniques as appropriate, variously including the following: *Automated exposure control *Adjustment of mA and/or kV according to patient size (this includes techniques or standardized protocols for targeted exams where dose is matched to indication/reason for exam; i.e. extremities or head) *Use of iterative reconstruction technique DLP: 548 mGy-cm FINDINGS: LUNG BASES: Severe bilateral lower lobe bronchiectasis and mucus plugging. There are larger nodular opacities seen in the left lower lobe questionable for bronchopneumonia. This appears significantly increased from 2015 exam. LIVER, GALLBLADDER, AND BILIARY TREE: The liver is normal in size, shape, and attenuation. No focal hepatic lesion or biliary ductal dilatation is present. The gallbladder is unremarkable with no evidence of radiopaque gallstones, gallbladder wall thickening, or obvious pericholecystic inflammatory changes. PANCREAS: Unremarkable SPLEEN: Unremarkable ADRENAL GLANDS: Unremarkable KIDNEYS AND URETERS: There is a horseshoe kidney. 1.5 cm peripelvic cysts in the right mid pole. 6 mm cortical cyst in the right lower pole. There is a left lower pole stone measuring 5 mm. There is a left mid to lower pole stone measuring 3 x 5 mm. No right stone seen. No hydronephrosis, ureteral dilatation or ureteral stone. Normal-appearing collecting systems. The left ureter is opacified with excreted contrast and is normal-appearing. The right ureter is not optimally opacified with excreted contrast. BLADDER: There is a Schwarz catheter in the bladder. Bladder is not optimally distended. The prostate gland is enlarged. There is question of abnormal soft tissue at the base of the bladder, particularly on the left, versus enlarged prostate gland and mild diffuse bladder wall thickening. GASTROINTESTINAL TRACT: Diverticulosis of the colon. Left inguinal hernia containing proximal sigmoid colon. No evidence of obstruction. Normal appearing stomach, small bowel and appendix. ABDOMINAL WALL: Left inguinal hernia containing fat and proximal sigmoid colon. No evidence of obstruction. LYMPH NODES: Normal VASCULAR: Atherosclerotic disease. No aneurysm. PELVIC VISCERA: The prostate gland is enlarged measuring 5 by 5.4 cm in AP and transverse dimension. OSSEOUS STRUCTURES: Degenerative changes of the spine and hip joints. Stable sclerotic density measuring 1 x 2 cm in the right side of the pubic symphysis probably representing a bone island. CT/CT abdomen pelvis wo/w IV con IMPRESSION: 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. Left renal stones. Right renal cysts. Enlarged prostate gland that protrudes into the base. Question abnormal soft tissue at the base of the bladder particularly on the left versus enlarged prostate gland. Diverticulosis of the colon. Left inguinal hernia containing proximal sigmoid colon. No evidence of obstruction. Severe bronchiectasis and mucus plugging both lung bases, left greater than right. Fleischner guidelines were followed.
[2022-01-13] MEDS: iohexoL 350 MG/ML 100 ML INFUS..BTL 85 ML IV (08:55)
== END 2022-01-13 08:02 | disposition home or self-care (01) ==
LOC: HO.CT 08:01
PROVIDERS: PCP Internal Medicine; Visit Provider Urology
DX: R31.9 Hematuria, unspecified (principal)
CPT/HCPCS: 74178; Q9967

== ENCOUNTER 2022-01-17 05:40 | Day surgery (SDC) | payer MEDICARE, MEDICAID, SELFPAY ==
--- NOTE | 2022-01-16 10:52 | HO.ANESPROP2 ---
Documented by User: Maile Mota NP 01/16/22 11:01 HPI - Anesthesia Eval Consult details Narrative: 81yo M for Cystoscopy Evacuation of Hematoma with fulguration,poss bladder biopsy 11/2021 [facility] [place] admit for: Final Discharge Diagnosis: 1. Severe sepsis 2. ESBL E. Coli pneumonia cannot be ruled out 3. Acute Respiratory Failure with hypoxia 4. Acute COPD exacerbation. 5. New onset A. Fib with RVR -- now in Sinus 6. Urinary retention 7. Hemoptysis 8. 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 Pulmo assessed 01/2022 during office visit. Low pulmo risk for cysto. Cardiology assessed during 11/2021 inpt, CMP improved EF, euvolemic. New onset afib with spontaneous conversion to sinus. Started eliquis. PCP ok'd holding eliquis d/t hematuria and clots. PMFSH Active Problems Active Problems: All Active Problems (Updated 01/06/22 @ 16:51 by Vinny Zuluaga MD) BPH loc w urin obs/LUTS (Acute) Urinary retention (Acute) Hematuria (Acute) COPD (chronic obstructive pulmonary disease) (Acute) ESBL (extended spectrum beta-lactamase) producing bacteria infection (Acute) Bronchiectasis with (acute) exacerbation (Acute) Medicare annual wellness visit, subsequent (Acute) Hearing loss (Acute) Essential hypertension (Acute) COVID-19 (Acute) Persistent cough (Acute) GERD (gastroesophageal reflux disease) (Acute) Pure hypercholesterolemia (Acute) Bronchitis (Acute) Acute respiratory failure with hypoxia (Acute) Pneumothorax (Acute) Bifascicular block (Acute) Medicare annual wellness visit, initial (Acute) Reducible left inguinal hernia (Acute) Hernia (Acute) Congestive heart failure (Acute) Past Medical History Medical History Bronchiectasis Bronchiectasis with (acute) exacerbation Bronchitis Bronchitis Congestive heart failure COPD (chronic obstructive pulmonary disease) COPD (chronic obstructive pulmonary disease) COPD exacerbation Essential hypertension GERD (gastroesophageal reflux disease) Glaucoma Hearing loss Hernia History of MAC infection Hypoxia JESSA (mycobacterium avium-intracellulare) Medicare annual wellness visit, initial Medicare annual wellness visit, subsequent New onset atrial fibrillation NICM (nonischemic cardiomyopathy) Paroxysmal atrial fibrillation Pure hypercholesterolemia Family History Family History Father No problems noted. Mother Medical history unknown Sister Diabetes Daughter In good health Son In good health Brother No problems noted. Surgical History Surgical History History of cystoscopy History of lumbar surgery History of rectal polypectomy Social History Social History Household Members: None Housing: Apartment Alcohol intake: unknown Patient Tobacco Use Status: Former Tobacco user Quit Date: 6 years ago Smoked in Last 30 Days: No e-Cigarette/Vaping Use: Never Used Second Hand Smoke Exposure: No Use of substances other than those prescribed or required for medical reasons: No Are you DNR?: No Advance Directives: Yes Advance Directives on File: Yes Advance Directives Date on File: 07/12/21 service: No Current occupational status: disabled Cognitive needs: No Hearing needs: Yes Vision needs: Yes Meds Allergies Allergy/AdvReac Type Severity Reaction Status Date / Time Penicillins [PENICILLINS] Allergy Intermediate PASSED Verified 01/17/22 06:11 OUT trazodone Allergy Intermediate tremors Verified 01/17/22 06:11 Home Medications Medication Instructions Recorded Confirmed Last Taken Type brimonidine 0.2 %-timolol 0.5 % 1 drp ophthalmic (eye) BID 03/08/21 01/17/22 03/07/21 History eye drops (Combigan) travoprost 0.004 % eye drops 1 drp ophthalmic (eye) BEDTIME 03/08/21 01/17/22 03/07/21 History Exam Exam Date and Time: January 16, 2022 1052 Narrative Narrative: ECHO 11/2021 Conclusions: - Normal left ventricular cavity size.? There is mildly increased left ventricular wall thickness.? The left ventricular systolic? function is low normal.? The visually estimated ejection fraction is between 50-55%. ? - Normal right ventricular cavity size and systolic function.? ? - Technically very limited study.?? EKG 11/2021 (during inpt with new onset afib) Vent. Rate : 122 BPM ? ? Atrial Rate : 122 BPM ?? P-R Int : 128 ms? QRS Dur : 120 ms ? ? QT Int : 328 ms ? ? ? P-R-T Axes : 067 -51 042 degrees ?? QTc Int : 467 ms ? Poor data quality, interpretation may be adversely affected Sinus tachycardia Right bundle branch block Left anterior fascicular block Bifascicular block Abnormal ECG When compared with ECG of 08-MAR-2021 12:07, T wave inversion no longer evident in Inferior leads Heart rate has increased 3 day Holter 12/2021 Total monitoring time 3 days and 2 hours. Underlying rhythm is sinus.? Average rate 76/Min.? Range 57-107/Min. No atrial fibrillation or flutter. Very rare supraventricular and ventricular ectopy with minimal burden. No patient diary. Assessment and Plan Assessment Anesthesia Assessment: Chart Reviewed Documented by User: Logan Smith MD 01/17/22 07:40 [facility] Past Medical History Medical History Bronchiectasis Bronchiectasis with (acute) exacerbation Bronchitis Bronchitis Congestive heart failure COPD (chronic obstructive pulmonary disease) COPD (chronic obstructive pulmonary disease) COPD exacerbation Essential hypertension GERD (gastroesophageal reflux disease) Glaucoma Hearing loss Hernia History of MAC infection Hypoxia JESSA (mycobacterium avium-intracellulare) Medicare annual wellness visit, initial Medicare annual wellness visit, subsequent New onset atrial fibrillation NICM (nonischemic cardiomyopathy) Paroxysmal atrial fibrillation Pure hypercholesterolemia Family History Family History Father No problems noted. Mother Medical history unknown Sister Diabetes Daughter In good health Son In good health Brother No problems noted. Family history of problems with anesthesia: No Surgical History Surgical History History of cystoscopy History of lumbar surgery History of rectal polypectomy History of Problems with Anesthesia: No Social History Social History Household Members: None Housing: Apartment Alcohol intake: unknown Patient Tobacco Use Status: Former Tobacco user Quit Date: 6 years ago Smoked in Last 30 Days: No e-Cigarette/Vaping Use: Never Used Second Hand Smoke Exposure: No Use of substances other than those prescribed or required for medical reasons: No Are you DNR?: No Advance Directives: Yes Advance Directives on File: Yes Advance Directives Date on File: 07/12/21 service: No Current occupational status: disabled Cognitive needs: No Hearing needs: Yes Vision needs: Yes Meds Allergies Allergy/AdvReac Type Severity Reaction Status Date / Time Penicillins [PENICILLINS] Allergy Intermediate PASSED Verified 01/17/22 06:11 OUT trazodone Allergy Intermediate tremors Verified 01/17/22 06:11 Home Medications Medication Instructions Recorded Confirmed Last Taken Type brimonidine 0.2 %-timolol 0.5 % 1 drp ophthalmic (eye) BID 03/08/21 01/17/22 03/07/21 History eye drops (Combigan) travoprost 0.004 % eye drops 1 drp ophthalmic (eye) BEDTIME 03/08/21 01/17/22 03/07/21 History Exam Airway Mallampati Class: II TM Dist: >3cm Neck ROM: Full Denture: Upper and Lower Heart: rrr Lungs: numerous rales Assessment and Plan Final Anesthetic Review Family History of Problems with Anesthesia: No History of Problems with Anesthesia: No NPO: Yes ASA Class: IV Final Preanesthetic Review: No Changes in Pt Med Stat, Meds/Allgs Chart Reviewed, Consent Obtained/Reviewed and Anes Risks/Benef Reviewed Patient Risk: High Procedure Risk: Low Anesthetic Plan Anesthetic Plan: GA Disposition: Standard PACU
[2022-01-17] VITALS (16 sets, daily range): BP systolic 94–140; BP diastolic 51–77; PULSE 65–80; RESP 16–24; TEMP 36.4–36.6; O2SAT 90–100; BMI 24.4
[2022-01-17] MEDS: Lactated Ringers 1,000 ML 50 ML IVCONT (06:44)
[2022-01-17] MEDS: Albuterol Sulfate (0.083%) 2.5 MG/3 ML VIAL.NEB INHALE (07:03)
--- NOTE | 2022-01-17 07:20 | P.HPSUR_ITS ---
Pre-Procedural Eval Section A Date of Service: 01/17/22 The patient is an INPATIENT: No Section B Chief Complaint: Hematuria, Details of Present Illness: 81 year old male with symptoms, urinary retention and gross hematuria with clots Allergies: Allergies Allergy/AdvReac Type Severity Reaction Status Date / Time Penicillins [PENICILLINS] Allergy Intermediate PASSED Verified 01/17/22 06:11 OUT trazodone Allergy Intermediate tremors Verified 01/17/22 06:11 Plan I have reviewed the history and physical and performed a pertinent physical examination on my patient. No changes have occurred unless specified. Cystoscopy clot evacation, fulguration, possible bladder biopsy. Consent obtained Discussed risks to include but not limited to, persistent blood in the urine, burning with urination, urgency. Certified Reimbursement Representative was present.
--- NOTE | 2022-01-17 08:45 | P.OP_ITS ---
Operative Note Operative Note Date of Service: 01/17/22 Narrative: PREOP DIAGNOSIS: GROSS HEMATURIA, URINARY RETENTION POSTOP DIAGNOSIS: GROSS HEMATURIA, URINARY RETENTION, BLADDER LESION, 2-3 cm PROCEDURE: CYSTOSCOPY TRANSURETHRAL RESECTION OF BLADDER LESION ANESTHESIA: GENERAL Indications: The patient had a recent admission November,, he was admitted for acute respiratory failure with hypoxia and severe sepsis secondary to presumed E coli pneumonia/acute bronchiectasis.? He was initiated on IV doxycycline and IV meropenem.? Pulmonary was consulted. He was also treated with IV systemic steroids and supplemental oxygen for his COPD and respiratory failure.? With these measures, the patient's respiratory symptoms had significant improvement.? He was tolerating room air at the time of discharge.? The Patient's hospital course was complicated by new onset atrial fibrillation with rapid ventricular response.? He was treated with IV rate control drugs and underwent cardiac evaluation with echocardiograph and cardiology consultation.? The patient converted back to sinus rhythm and the AFib was deemed secondary to his acute illness.? Nonetheless, due to his multiple risk factors cardiology recommended anticoagulation with Eliquis. His hospital course was further complicated by acute urinary retention for which Flomax was initiated and he was discharged with a hermosillo. The patient failed voiding trial and developed gross hematuria with clots. The Eliquis was stopped and he his here for further evaluation. Details of procedure: The patient was brought into the operating room placed on the OR table in supine position. Levaquin 500 mg IV. General anesthesia was administered. The patient was repositioned into lithotomy position, prepped and draped in the usual sterile fashion. 2% lidocaine jelly 20 mL administered transurethrally. Time-out was done per protocol. The [place] cystoscope was passed transurethrally into the bladder. The bulbous urethra was within normal limits. The prostatic urethra was obstructive noting trilobar enlargement a prominent median lobe protruding into the bladder. The bladder was visualized. There was no active bleeding. Posterior to the trigone was irregular changes noted,inflammatory changes versus papillary lesion, due to the presence of a [place] these changes may have been related to the presence of the catheter. However biopsy was done to obtain tissue diagnosis. The [place] resectoscope was passed transurethrally into the bladder. The loop resectoscope was used to resect the bladder lesion, there was no evidence of perforation, the roller ball was used to fulgurate the base of the bladder lesion. Once there was good hemostasis the resectoscope was removed. A [address] [place] [address] catheter 5 cc balloon was passed without difficulty. The patient was brought out of anesthesia and taken to recovery in stable condition. Complications: None Drains: [address] [place] [address] catheter 5 cc balloon, 15 cc of Sterile water placed into the balloon.
== END 2022-01-17 11:53 | disposition home or self-care (01) ==
PROVIDERS: PCP Internal Medicine; Visit Provider Urology
PROC: (CPT 52234; principal; 2022-01-17 07:30)
DX: N32.9 Bladder disorder, unspecified (principal); N40.1 Benign prostatic hyperplasia with lower urinary tract symptoms; R33.9 Retention of urine, unspecified; R31.0 Gross hematuria; N30.81 Other cystitis with hematuria; J44.9 Chronic obstructive pulmonary disease, unspecified; R09.02 Hypoxemia; Z87.891 Personal history of nicotine dependence; I10 Essential (primary) hypertension; I48.0 Paroxysmal atrial fibrillation; I42.8 Other cardiomyopathies; E78.00 Pure hypercholesterolemia, unspecified; Z79.01 Long term (current) use of anticoagulants; Z79.899 Other long term (current) drug therapy; Z88.0 Allergy status to penicillin; Z88.8 Allergy status to other drugs, medicaments and biological substances
CPT/HCPCS: 52234; 88307; 94640; J1100; J1956; J2405; J3010

== ENCOUNTER 2022-01-23 11:49 | Inpatient (IN) | payer MEDICARE, MEDICAID, SELFPAY ==
[2022-01-23] VITALS (9 sets, daily range): BP systolic 110–158; BP diastolic 56–76; PULSE 67–93; RESP 14–20; TEMP 36.4–37.1; O2SAT 94–99; BMI 24.5
--- NOTE | ~2022-01-23 | XR_ITS ---
EXAMINATION: XR CHEST CLINICAL INFORMATION: Shortness of breath. Hypoxia COMPARISON: 11/29/2021 TECHNIQUE: Frontal view of the chest was obtained. FINDINGS: Extensive patchy fibrotic changes throughout the lungs are again observed, likely reflective of chronic lung disease with worsening airspace changes. Overall, findings have not changed significantly given differences in patient positioning heart size borderline with normal caliber pulmonary vessels. XR/XR chest 1V IMPRESSION: Extensive bilateral airspace opacities unchanged.
--- NOTE | 2022-01-23 11:57 | ED_ITS ---
HPI - General Adult General Chief complaint: Dyspnea Stated complaint: Difficulty breathing Related Data Home Medications Medication Instructions Recorded Confirmed brimonidine 0.2 %-timolol 0.5 % 1 drp ophthalmic (eye) BID 03/08/21 01/17/22 eye drops (Combigan) travoprost 0.004 % eye drops 1 drp ophthalmic (eye) BEDTIME 03/08/21 01/17/22 Previous Rx's Medication Instructions Recorded omeprazole 40 mg capsule,delayed 40 mg PO DAILY #90 caps 02/22/21 release sacubitril 24 mg-valsartan 26 mg 1 tab PO BID 90 days #180 tabs 07/19/21 tablet (Entresto) doxycycline monohydrate 100 mg 100 mg PO MOWEFR #14 caps 08/05/21 capsule ipratropium 0.5 mg-albuterol 3 mg 3 ml inhalation QID PRN for 08/31/21 (2.5 mg base)/3 mL nebulization dyspnea #180 mL soln albuterol sulfate 90 mcg/actuation 2 puff inhalation Q4H PRN 10/30/21 aerosol inhaler shortness of breath or wheezing #8.5 grams lovastatin 10 mg tablet 10 mg PO DAILY 90 days #90 tabs 11/08/21 finasteride 5 mg tablet (Proscar) 5 mg PO DAILY 90 days #90 tabs 01/06/22 ciprofloxacin HCl 250 mg tablet 250 mg PO BID 7 days #14 tabs 01/11/22 apixaban 5 mg tablet (Eliquis) 5 mg PO BID #60 tabs 01/13/22 carvedilol 12.5 mg tablet 12.5 mg PO BID #60 tabs 01/13/22 docusate sodium 100 mg capsule 100 mg PO BID #60 caps 01/13/22 polyethylene glycol 3350 17 gram 17 g PO DAILY PRN constipation #30 01/13/22 oral powder packet ea tamsulosin 0.4 mg capsule 0.4 mg PO DAILY #30 caps 01/13/22 Allergies Allergy/AdvReac Type Severity Reaction Status Date / Time Penicillins [PENICILLINS] Allergy Intermediate PASSED Verified 01/17/22 06:11 OUT trazodone Allergy Intermediate tremors Verified 01/17/22 06:11 [facility] Past Medical History Medical History Bronchiectasis Bronchiectasis with (acute) exacerbation Bronchitis Bronchitis Congestive heart failure COPD (chronic obstructive pulmonary disease) COPD (chronic obstructive pulmonary disease) COPD exacerbation Essential hypertension GERD (gastroesophageal reflux disease) Glaucoma Hearing loss Hernia History of MAC infection Hypoxia JESSA (mycobacterium avium-intracellulare) Medicare annual wellness visit, initial Medicare annual wellness visit, subsequent New onset atrial fibrillation NICM (nonischemic cardiomyopathy) Paroxysmal atrial fibrillation Pure hypercholesterolemia Surgical History History of cystoscopy History of lumbar surgery History of rectal polypectomy Family History Family History Father No problems noted. Mother Medical history unknown Sister Diabetes Daughter In good health Son In good health Brother No problems noted. Social History Social History Household Members: None Housing: Apartment Alcohol intake: unknown Patient Tobacco Use Status: Former Tobacco user Quit Date: 6 years ago e-Cigarette/Vaping Use: Never Used Second Hand Smoke Exposure: No Advance Directives Date on File: 07/12/21 service: No Current occupational status: disabled Cognitive needs: No Hearing needs: Yes Vision needs: Yes Course Course Course Narrative: LEEANNE triage note: pt comes to the Ed c/o fatigue, sob much worse with exertion -hx of asthma, no COPD, CHF, had a neb tx 10 min prior to arrival -PE: has no wheezing, bilateral crackels, 94% with ambulation -F/u labs, cxr, ekg Discharge Plan Discharge Prescriptions: No Action omeprazole 40 mg capsule,delayed release(DR/EC) 40 mg PO DAILY Qty: 90 3RF Entresto 24-26 mg tablet 1 tab PO BID 90 Days Qty: 180 3RF doxycycline monohydrate 100 mg capsule 100 mg PO MOWEFR Qty: 14 3RF ipratropium-albuterol 0.5 mg-3 mg(2.5 mg base)/3 mL solution for nebulization 3 ml inhalation QID PRN (Reason: for dyspnea) Qty: 180 0RF albuterol sulfate 90 mcg/actuation HFA aerosol inhaler 2 puff inhalation Q4H PRN (Reason: shortness of breath or wheezing) Qty: 8.5 4RF lovastatin 10 mg tablet 10 mg PO DAILY 90 Days Qty: 90 3RF tamsulosin 0.4 mg capsule 0.4 mg PO DAILY Qty: 30 0RF carvedilol 12.5 mg tablet 12.5 mg PO BID Qty: 60 0RF Protocol: Hold for SBP/HR < HOLD for SBP < : 90 HOLD for HR < : 60 docusate sodium 100 mg capsule 100 mg PO BID Qty: 60 0RF polyethylene glycol 3350 17 gram powder in packet 17 g PO DAILY PRN (Reason: constipation) Qty: 30 0RF Eliquis 5 mg tablet 5 mg PO BID Qty: 60 0RF Hold Instructions: Resume on 01/23/22. travoprost 0.004 % drops 1 drp ophthalmic (eye) BEDTIME brimonidine-timolol [Combigan] 0.2-0.5 % drops 1 drp ophthalmic (eye) BID finasteride [Proscar] 5 mg tablet 5 mg PO DAILY 90 Days Qty: 90 3RF ciprofloxacin HCl 250 mg tablet 250 mg PO BID 7 Days Qty: 14 0RF
--- NOTE | 2022-01-23 12:05 | ECG_ITS ---
Test Reason : Difficulty breathing Blood Pressure : / mmHG Vent. Rate : 084 BPM Atrial Rate : 084 BPM P-R Int : 128 ms QRS Dur : 130 ms QT Int : 380 ms P-R-T Axes : 066 -32 008 degrees QTc Int : 449 ms Normal sinus rhythm Left anterior fascicular block Right bundle branch block Abnormal ECG When compared with ECG of 09-DEC-2021 12:42, Sinus rhythm has replaced Atrial fibrillation Vent. rate has decreased BY [address] no longer depressed in Anterior leads Referred By: Ivy Ayers Electronically Signed By:ALLY HUNG MD
[2022-01-23 12:44] LABS: MANUAL DIFF FLAG NO
[2022-01-23 12:53] LABS: Basophils Percent Auto 0.2 % (0-2); Eosinophils Absolute Auto 0.3 X10*3/uL (0.0-0.4); Eosinophils Percent Auto 2.1 % (0-4); Hematocrit 37.6 % (42.0-52.0); Hemoglobin 12.1 g/dl (14.0-18.0); Imm Gran Abs Auto 0.07 X10*3/uL (0.00-0.03); Imm Gran Pct Auto 0.4 % (0.0-0.4); Lymphocytes Absolute Auto 0.4 X10*3/uL (1.2-4.9); Lymphocytes Percent Auto 2.7 % (20-40); Mean Corpuscular HGB Conc 32.2 g/dl (31.0-36.0); Mean Corpuscular Hemoglobin 28.2 pg (27.0-33.0); Mean Corpuscular Volume 87.6 fL (80.0-98.0); Mean Platelet Volume 9.8 fL (9.4-12.4); Monocytes Absolute Auto 0.8 X10*3/uL (0.1-1.2); Monocytes Percent Auto 4.9 % (2-11); Neutrophils Absolute Auto 14.4 x10*3/uL (2.0-8.3); Neutrophils Percent Auto 89.7 % (45-73); Platelet Count 262 X10*3/uL (160-400); Red Blood Count 4.29 X10*6/uL (4.60-5.80); Red Cell Distribution Width 13.8 % (11.0-16.0); White Blood Count 16.1 X10*3/uL (4.8-10.8)
[2022-01-23 12:58] LABS: INTERNATIONAL NORM RATIO 1.2 (0.9-1.1); Prothrombin Time 13.3 SEC (10.0-13.1)
[2022-01-23 13:08] LABS: COVID-19 Test Negative (Negative); IDNOW Serial# 16C4AD1C
[2022-01-23 13:10] LABS: Lactic Acid 1.4 mmol/L (0.5-2.0)
[2022-01-23 13:11] LABS: Alanine Aminotransferase 12 U/L (0-40); Albumin Level 3.8 g/dL (3.5-5.0); Alkaline Phosphatase 69 U/L (39-117); Anion Gap 16 (12-20); Aspartate Amino Transferase 12 U/L (5-37); Bilirubin Direct 0.2 mg/dL (0.0-0.5); Bilirubin Total 0.4 mg/dL (0.0-1.0); Blood Urea Nitrogen 11 mg/dL (9-16); Calcium 8.5 mg/dL (8.4-10.2); Carbon Dioxide 23 mmol/L (22-29); Chloride 103 mmol/L (96-108); Creatinine Clr Calc Pharmacy 70.1; Estimated Glomerular Filt Rate > 60; Glucose Random 149 mg/dL (60-115); Potassium 4.4 mmol/L (3.3-5.1); Sodium 138 mmol/L (135-145); Total Protein 6.9 g/dL (6.5-8.0)
[2022-01-23 13:13] LABS: Troponin-I High Sensitivity 4.9 ng/L (<3.5-35.0)
[2022-01-23 13:14] LABS: B Type Natriuretic Peptide 13 pg/mL (<100)
--- NOTE | 2022-01-23 14:14 | ED_ITS ---
HPI - SOB/Dyspnea General Chief Complaint: Dyspnea Stated Complaint: Difficulty breathing Time Seen by Provider: 01/23/22 13:10 History of Present Illness HPI Narrative: Patient is a 81-year-old male with a history of COPD. Baseline not on oxygen. Patient has been noticing increasing cough shortness of breath generalized malaise. Patient is from home. No leg swelling. No fever no chills. No diaphoresis. Patient is from home. Related Data Home Medications Medication Instructions Recorded Confirmed brimonidine 0.2 %-timolol 0.5 % 1 drp ophthalmic (eye) BID 03/08/21 01/23/22 eye drops (Combigan) travoprost 0.004 % eye drops 1 drp ophthalmic (eye) BEDTIME 03/08/21 01/23/22 mirabegron 25 mg tablet,extended 1 tab PO DAILY 01/23/22 01/23/22 release 24 hr (Myrbetriq) Previous Rx's Medication Instructions Recorded omeprazole 40 mg capsule,delayed 40 mg PO DAILY #90 caps 02/22/21 release sacubitril 24 mg-valsartan 26 mg 1 tab PO BID 90 days #180 tabs 07/19/21 tablet (Entresto) ipratropium 0.5 mg-albuterol 3 mg 3 ml inhalation QID PRN for 08/31/21 (2.5 mg base)/3 mL nebulization dyspnea #180 mL soln albuterol sulfate 90 mcg/actuation 2 puff inhalation Q4H PRN 10/30/21 aerosol inhaler shortness of breath or wheezing #8.5 grams lovastatin 10 mg tablet 10 mg PO DAILY 90 days #90 tabs 11/08/21 finasteride 5 mg tablet (Proscar) 5 mg PO DAILY 90 days #90 tabs 01/06/22 ciprofloxacin HCl 250 mg tablet 250 mg PO BID 7 days #14 tabs 01/11/22 apixaban 5 mg tablet (Eliquis) 5 mg PO BID #60 tabs 01/13/22 carvedilol 12.5 mg tablet 12.5 mg PO BID #60 tabs 01/13/22 docusate sodium 100 mg capsule 100 mg PO BID #60 caps 01/13/22 polyethylene glycol 3350 17 gram 17 g PO DAILY PRN constipation #30 01/13/22 oral powder packet ea tamsulosin 0.4 mg capsule 0.4 mg PO DAILY #30 caps 01/13/22 Allergies Allergy/AdvReac Type Severity Reaction Status Date / Time Penicillins [PENICILLINS] Allergy Intermediate PASSED Verified 01/17/22 06:11 OUT trazodone Allergy Intermediate tremors Verified 01/17/22 06:11 Review of Systems Review of Systems: Positive coughing positive generalized malaise positive s hortness of breath especially when he walks. Yes all other systems are reviewed and are negative [facility] Past Medical History Attestation statement: The following information was validated with the patient. Medical History Bronchiectasis Bronchiectasis with (acute) exacerbation Bronchitis Bronchitis Congestive heart failure COPD (chronic obstructive pulmonary disease) COPD (chronic obstructive pulmonary disease) COPD exacerbation Essential hypertension GERD (gastroesophageal reflux disease) Glaucoma Hearing loss Hernia History of MAC infection Hypoxia JESSA (mycobacterium avium-intracellulare) Medicare annual wellness visit, initial Medicare annual wellness visit, subsequent New onset atrial fibrillation NICM (nonischemic cardiomyopathy) Paroxysmal atrial fibrillation Pure hypercholesterolemia Surgical History History of cystoscopy History of lumbar surgery History of rectal polypectomy Family History Family History Father No problems noted. Mother Medical history unknown Sister Diabetes Daughter In good health Son In good health Brother No problems noted. Social History Social History Household Members: None Housing: Apartment Alcohol intake: unknown Patient Tobacco Use Status: Former Tobacco user Quit Date: 6 years ago e-Cigarette/Vaping Use: Never Used Second Hand Smoke Exposure: No Advance Directives: Yes Advance Directives Information Provided: Yes Advance Directives on File: No Advance Directives Date on File: 07/12/21 service: No Current occupational status: disabled Cognitive needs: No Hearing needs: Yes Vision needs: Yes Physical Exam Vital Signs: Vital Signs: Last Vital Signs Temp 98.6 F 01/23/22 15:56 Pulse 72 01/23/22 15:56 Resp 14 01/23/22 15:56 BP 121/64 01/23/22 15:56 Pulse Ox 95 01/23/22 15:56 O2 Del Method 01/23/22 15:56 BMI result Body Mass Index 24.5 Appearance: Alert. Oriented X3. No acute distress. Eyes: Pupils equal, round and reactive to light. ENT: Pharynx normal. Neck: Normal inspection. Neck supple. No lymph nodes noted. No crepitus CVS: Normal heart rate and rhythm. Pulses normal. Normal S1 and S2 Respiratory: No respiratory distress. Diminished breath sounds bilaterally. Abdomen: Soft and nontender. No rigidity. No distention. good BS x4 Skin: Skin warm and dry. Normal skin color. Normal skin turgor. Extremities: No lower extremity edema. Neurovascular intact to all extremities. No Lacerations. No Rash Neuro: Oriented X 3. No motor deficit. No sensory deficit. Moving all extermities. No slurred speech Medications Administered Discontinued Medications Generic Name Dose Route Start Last Admin Trade Name Freq PRN Reason Stop Dose Admin Albuterol Sulfate 2.5 mg/ 5 mg 01/23/22 14:05 01/23/22 14:15 Albuterol Sulfate 2.5 mg INHALE 01/23/22 14:06 5 mg ONCE ONE Administration Albuterol/Ipratropium 3 ml 01/23/22 14:05 01/23/22 14:15 Albuterol/Iprat 2.5/0.5mg 3 Ml Ampul.Neb INHALE 01/23/22 14:06 3 ml ONCE ONE Administration Methylprednisolone Sodium Succinate 125 mg 01/23/22 14:05 01/23/22 14:44 Methylprednisolone Sod Succ 125 Mg/2 Ml Vial IVPUSH 01/23/22 14:06 125 mg ONCE ONE Administration MDM - SOB/Dyspnea MDM Narrative Medical decision making narrative: Patient given neb treatments. BNP was normal. No evidence for congestive heart failure. Chest x-ray consistent with COPD. Steroids started. Will monitor carefully. Patient given multiple neb treatments steroids. Ambulated in the emergency department. Patient's O2 sat dropped to 88%. Increase in shortness of breath. Will admit for further evaluation. Differential Diagnosis Differential diagnosis: Likely acute exacerbation of chronic obstructive airways disease Medical Records Attestation: I reviewed the patient's medical records. Lab Data Attestation: I reviewed the patient's lab results. Result diagrams: 01/23/22 12:38 01/23/22 12:38 Labs: Lab Results 01/23/22 01/23/22 01/23/22 Range/Units 12:38 12:38 12:38 WBC 16.1 H (4.8-10.8) X10*3/uL RBC 4.29 L (4.60-5.80) X10*6/uL Hgb 12.1 L (14.0-18.0) g/dl Hct 37.6 L (42.0-52.0) % MCV 87.6 (80.0-98.0) fL MCH 28.2 (27.0-33.0) pg MCHC 32.2 (31.0-36.0) g/dl RDW 13.8 (11.0-16.0) % Plt Count 262 (160-400) X10*3/uL MPV 9.8 (9.4-12.4) fL Immature Gran % (Auto) 0.4 (0.0-0.4) % Neut % (Auto) 89.7 H (45-73) % Lymph % (Auto) 2.7 L (20-40) % [place] % (Auto) 4.9 (2-11) % Eos % (Auto) 2.1 (0-4) % Baso % (Auto) 0.2 (0-2) % Lymph # (Auto) 0.4 L (1.2-4.9) X10*3/uL [place] # (Auto) 0.8 (0.1-1.2) X10*3/uL Eos # (Auto) 0.3 (0.0-0.4) X10*3/uL Baso # (Auto) 0.0 (0.0-0.2) X10*3/uL Abs Immat Gran (auto) 0.07 H (0.00-0.03) X10*3/uL Absolute Neuts (auto) 14.4 H (2.0-8.3) x10*3/uL Absolute Nucleated RBC 0.000 (0.0-0.012) X10*3/uL Nucleated RBC % (auto) 0.0 (0.0-0.2) /100WBC PT 13.3 H (10.0-13.1) SEC INR 1.2 H (0.9-1.1) Sodium 138 (135-145) mmol/L Potassium 4.4 (3.3-5.1) mmol/L Chloride 103 (96-108) mmol/L Carbon Dioxide 23 (22-29) mmol/L Anion Gap 16 (12-20) BUN 11 (9-16) mg/dL Creatinine 0.77 (0.5-1.4) mg/dL Estim Creat Clear Calc 70.1 Estimated GFR > 60 Random Glucose 149 H (60-115) mg/dL Lactic Acid (0.5-2.0) mmol/L Calcium 8.5 (8.4-10.2) mg/dL Total Bilirubin 0.4 (0.0-1.0) mg/dL Direct Bilirubin 0.2 (0.0-0.5) mg/dL AST 12 (5-37) U/L ALT 12 (0-40) U/L Alkaline Phosphatase 69 (39-117) U/L Troponin I High Sens (<3.5-35.0) ng/L B-Natriuretic Peptide (<100) pg/mL Total Protein 6.9 (6.5-8.0) g/dL Albumin 3.8 (3.5-5.0) g/dL COVID-19 ([facility]ONNIE) (Negative) COVID-19 Clin Com 01/23/22 01/23/22 01/23/22 Range/Units 12:38 12:38 12:38 WBC (4.8-10.8) X10*3/uL RBC (4.60-5.80) X10*6/uL Hgb (14.0-18.0) g/dl Hct (42.0-52.0) % MCV (80.0-98.0) fL MCH (27.0-33.0) pg MCHC (31.0-36.0) g/dl RDW (11.0-16.0) % Plt Count (160-400) X10*3/uL MPV (9.4-12.4) fL Immature Gran % (Auto) (0.0-0.4) % Neut % (Auto) (45-73) % Lymph % (Auto) (20-40) % [place] % (Auto) (2-11) % Eos % (Auto) (0-4) % Baso % (Auto) (0-2) % Lymph # (Auto) (1.2-4.9) X10*3/uL [place] # (Auto) (0.1-1.2) X10*3/uL Eos # (Auto) (0.0-0.4) X10*3/uL Baso # (Auto) (0.0-0.2) X10*3/uL Abs Immat Gran (auto) (0.00-0.03) X10*3/uL Absolute Neuts (auto) (2.0-8.3) x10*3/uL Absolute Nucleated RBC (0.0-0.012) X10*3/uL Nucleated RBC % (auto) (0.0-0.2) /100WBC PT (10.0-13.1) SEC INR (0.9-1.1) Sodium (135-145) mmol/L Potassium (3.3-5.1) mmol/L Chloride (96-108) mmol/L Carbon Dioxide (22-29) mmol/L Anion Gap (12-20) BUN (9-16) mg/dL Creatinine (0.5-1.4) mg/dL Estim Creat Clear Calc Estimated GFR Random Glucose (60-115) mg/dL Lactic Acid (0.5-2.0) mmol/L Calcium (8.4-10.2) mg/dL Total Bilirubin (0.0-1.0) mg/dL Direct Bilirubin (0.0-0.5) mg/dL AST (5-37) U/L ALT (0-40) U/L Alkaline Phosphatase (39-117) U/L Troponin I High Sens 4.9 (<3.5-35.0) ng/L B-Natriuretic Peptide 13 (<100) pg/mL Total Protein (6.5-8.0) g/dL Albumin (3.5-5.0) g/dL COVID-19 ([facility]NIE) Negative (Negative) COVID-19 Clin Com See Note 01/23/22 Range/Units 12:39 WBC (4.8-10.8) X10*3/uL RBC (4.60-5.80) X10*6/uL Hgb (14.0-18.0) g/dl Hct (42.0-52.0) % MCV (80.0-98.0) fL MCH (27.0-33.0) pg MCHC (31.0-36.0) g/dl RDW (11.0-16.0) % Plt Count (160-400) X10*3/uL MPV (9.4-12.4) fL Immature Gran % (Auto) (0.0-0.4) % Neut % (Auto) (45-73) % Lymph % (Auto) (20-40) % [place] % (Auto) (2-11) % Eos % (Auto) (0-4) % Baso % (Auto) (0-2) % Lymph # (Auto) (1.2-4.9) X10*3/uL [place] # (Auto) (0.1-1.2) X10*3/uL Eos # (Auto) (0.0-0.4) X10*3/uL Baso # (Auto) (0.0-0.2) X10*3/uL Abs Immat Gran (auto) (0.00-0.03) X10*3/uL Absolute Neuts (auto) (2.0-8.3) x10*3/uL Absolute Nucleated RBC (0.0-0.012) X10*3/uL Nucleated RBC % (auto) (0.0-0.2) /100WBC PT (10.0-13.1) SEC INR (0.9-1.1) Sodium (135-145) mmol/L Potassium (3.3-5.1) mmol/L Chloride (96-108) mmol/L Carbon Dioxide (22-29) mmol/L Anion Gap (12-20) BUN (9-16) mg/dL Creatinine (0.5-1.4) mg/dL Estim Creat Clear Calc Estimated GFR Random Glucose (60-115) mg/dL Lactic Acid 1.4 (0.5-2.0) mmol/L Calcium (8.4-10.2) mg/dL Total Bilirubin (0.0-1.0) mg/dL Direct Bilirubin (0.0-0.5) mg/dL AST (5-37) U/L ALT (0-40) U/L Alkaline Phosphatase (39-117) U/L Troponin I High Sens (<3.5-35.0) ng/L B-Natriuretic Peptide (<100) pg/mL Total Protein (6.5-8.0) g/dL Albumin (3.5-5.0) g/dL COVID-19 ([facility]) (Negative) COVID-19 Clin Com Discharge Plan Discharge Clinical Impression: COPD (chronic obstructive pulmonary disease) Patient Disposition: Admitted As Inpatient
[2022-01-23] MEDS: Albuterol Sulfate 2.5 MG, Albuterol Sulfate (0.083%) 2.5 MG 5 MG INHALE (14:15)
[2022-01-23] MEDS: Albuterol/Iprat 2.5/0.5MG 3 ML AMPUL.NEB INHALE ×3 (14:15→20:58)
[2022-01-23] MEDS: methylPREDNISolone Sod Succ 125 MG/2 ML VIAL IVPUSH (14:44)
--- NOTE | 2022-01-23 14:47 | PC.NURSE ---
pt. s&o x4. pt states his breathing is better. O2sat 98% at ra. gave him solumedrol. IV on rt hand.
--- NOTE | 2022-01-23 15:33 | PC.NURSE ---
ambulated the patient per providers orders. His O2sat went down to 88 and stayed there while ambulating. denies shortness of breath
--- NOTE | 2022-01-23 16:02 | PHA.MEDREC ---
Pharmacy Consult ? Medication Reconciliation Pharmacy has completed the medication reconciliation. Patient did not have list of medications. I received a list of medications from [facility]. Patient confirmed he is taking doxycyline and prednisone which matched Dr. Duenas's office note. Per Dr. Duenas's note patient should be on a regimen for theophyline however this medication has not been filled in over a year. Hilda Valadez, PharmD
--- NOTE | 2022-01-23 16:28 | P.HPHOSP_ITS ---
History of Present Illness Date of Service: 01/23/22 Attending physician on admission: Wilian Zelaya Chief Complaint: Shortness of breath 81-year-old gentleman with past medical history significant for COPD, not on home oxygen, history of bronchiectasis, JESSA infection status post treatment h istory of ESBL E coli in the sputum, history of recent VRE infection was treated in December with acute respiratory failure and hypoxia due to presumed E coli pneumonia and acute bronchiectases, hospital course was complicated due to new onset atrial fibrillation with rapid ventricular rate, felt to be related to acute respiratory infection,Due to multiple cardiac risk factors patient was placed on Eliquis, patient subsequently developed acute urine retention, Flomax was initiated and patient was discharged with a Schwarz catheter and also on IV Invanz, however patient developed gross hematuria with clots, patient came to the emergency room Eliquis was stopped, patient noted to have a UTI is was discharged home on Ceftin however the urine culture grew VRE, patient was called back to hospital repeat UA was benign therefore no anti biotic was adjusted, patient was discharged home and was seen by Urology as outpatient and subsequently underwent cystoscopy with transurethral resection of bladder lesion on 01/17/2022 and was discharged home on indwelling Schwarz catheter according to patient he was doing fine up until 2 days ago when he developed shortness of breath cough productive of swanson phlegm associated with chest tightness patient denies any sick contacts, no recent travels, he denies associated fever, chills, rigors ,he denies any dizziness, he denies nausea, vomiting ,abdominal pain ,or diarrhea, he noted foul odor to his urine, and requesting for a urine check in the emergency room a chest x-ray showed no acute abnormality COVID test is negative Will he has elevated WBC count likely due to being on steroids otherwise electrolytes and blood sugars are within normal range, lactic acid is normal, 2 set of blood cultures were drawn patient treated with IV steroids, nebulizer treatment but he was noted to have finger oximetry 88% with ambulation therefore he is being admitted to [facility] with a diagnosis of COPD exacerbation with acute hypoxic resp failure. Review of Systems Review of Systems: General no headache no dizziness. no fever chills. CVS no chest pain, no palpitation. Gastrointestinal no nausea no vomiting, no abdominal pain Skin no rash Musculoskeletal no pain foul odor urine PMFSH Medical History Bronchiectasis Bronchiectasis with (acute) exacerbation Bronchitis Bronchitis Congestive heart failure COPD (chronic obstructive pulmonary disease) COPD (chronic obstructive pulmonary disease) COPD exacerbation Essential hypertension GERD (gastroesophageal reflux disease) Glaucoma Hearing loss Hernia History of MAC infection Hypoxia JESSA (mycobacterium avium-intracellulare) Medicare annual wellness visit, initial Medicare annual wellness visit, subsequent New onset atrial fibrillation NICM (nonischemic cardiomyopathy) Paroxysmal atrial fibrillation Pure hypercholesterolemia Family History Father No problems noted. Mother Medical history unknown Sister Diabetes Daughter In good health Son In good health Brother No problems noted. Surgical History History of cystoscopy History of lumbar surgery History of rectal polypectomy Social History Household Members: None Housing: Apartment Do you presently have visiting nurse or other home services: Yes (brake mechanic vna) Alcohol intake: unknown Patient Tobacco Use Status: Former Tobacco user Quit Date: 6 years ago e-Cigarette/Vaping Use: Never Used Second Hand Smoke Exposure: No Use of substances other than those prescribed or required for medical reasons: No Currently Displaying Signs/Symptoms of Drug Intoxication Withdrawal: No Advance Directives: Yes Advance Directives Information Provided: Yes Advance Directives on File: No Advance Directives Date on File: 07/12/21 Do you have thoughts of harming others: None Do you have a plan to hurt others: No Plan Recently lost weight without trying: No Nutrition Risks: No Nutritional Risk service: No Current occupational status: disabled Cognitive needs: No Hearing needs: Yes Vision needs: Yes Meds Allergies Allergy/AdvReac Type Severity Reaction Status Date / Time Penicillins [PENICILLINS] Allergy Intermediate PASSED Verified 01/17/22 06:11 OUT trazodone Allergy Intermediate tremors Verified 01/17/22 06:11 Active Medications: Current Medications Albuterol Sulfate (Albuterol Sulfate 90 Mcg 8 Gm Inhaler) 2 puff INHALE Q4H PRN PRN Reason: shortness of breath or wheezing Albuterol/Ipratropium (Albuterol/Iprat 2.5/0.5mg 3 Ml Ampul.Neb) 3 ml INHALE QID PRN PRN Reason: for dyspnea Apixaban (Apixaban 5 Mg Tablet) 5 mg PO BID [facility] Carvedilol (Carvedilol 12.5 Mg Tablet) 12.5 mg PO BID [facility]; Protocol Docusate Sodium (Docusate Sodium 100 Mg Capsule) 100 mg PO BID [facility] Doxycycline Monohydrate (Doxycycline Monohydrate 100 Mg Capsule) 100 mg PO MoWeFr@0900 [facility] Finasteride (Finasteride 5 Mg Tablet) 5 mg PO DAILY [facility] Latanoprost (Latanoprost 0.005 % Ophth Thalia 2.5 Ml Drops) 1 drop EYE-BOTH BEDTIME [facility] Mirabegron (Mirabegron 25 Mg Tab.Er.24h) 25 mg PO DAILY [facility] Non-Formulary Medication (Brimonidine-Timolol [Combigan]) 1 drop EYE-BOTH BID [facility] Omeprazole (Omeprazole 40 Mg Capsule.Dr) 40 mg PO DAILY@0630 [facility] Pharmacy Consult (Consult Rx Perform Med Rec) 1 each MISCELLANE ONCE PRN PRN Reason: Consult order Polyethylene Glycol (Polyethylene Glycol 3350 17 Gm Powd.Pack) 17 gm PO DAILY PRN PRN Reason: constipation Pravastatin Sodium (Pravastatin Sodium 10 Mg Tablet) 10 mg PO DAILY [facility] Tamsulosin HCl (Tamsulosin Hcl 0.4 Mg Capsule) 0.4 mg PO DAILY [facility] Home Medications Medication Instructions Recorded Confirmed Last Taken Type brimonidine 0.2 %-timolol 0.5 % 1 drp ophthalmic (eye) BID 03/08/21 01/23/22 03/07/21 History eye drops (Combigan) travoprost 0.004 % eye drops 1 drp ophthalmic (eye) BEDTIME 03/08/21 01/23/22 03/07/21 History doxycycline hyclate 100 mg tablet 1 tab PO MOWEFR 01/23/22 01/23/22 Unknown History mirabegron 25 mg tablet,extended 1 tab PO DAILY 01/23/22 01/23/22 Unknown History release 24 hr (Myrbetriq) prednisone 5 mg tablet 2 tab PO DAILY 01/23/22 01/23/22 Unknown History Physical Exam Vital Signs and Narrative: Vital Signs: Last Vital Signs Temp 98.6 F 01/23/22 15:56 Pulse 72 01/23/22 16:15 Resp 18 01/23/22 16:15 BP 121/64 01/23/22 15:56 Pulse Ox 95 01/23/22 15:56 O2 Del Method 01/23/22 15:56 BMI result Body Mass Index 24.5 Const: Other: General awake alert x3 in no acute distress. Anicteric sclera Neck supple no JVD. CVS regular rate rhythm, Respiratory lungs clear to auscultation, no respiratory distress, no wheeze, no rhonchi. Gastrointestinal abdomen soft, nontender, bowel sounds audible, no guarding , no rigidity. Extremities no edema. Neuro nonfocal moving all 4 extremity speech clear. Skin no rash Psych appropriate affect For Schwarz catheter to left leg clear urine/no hematuria Results Labs CBC and Chem 7: 01/23/22 12:38 01/23/22 12:38 Labs: Laboratory Results - last 24 hr 01/23/22 01/23/22 01/23/22 12:38 12:38 12:38 MCV 87.6 MCH 28.2 MCHC 32.2 RDW 13.8 Plt Count 262 MPV 9.8 Immature Gran % (Auto) 0.4 Neut % (Auto) 89.7 H Lymph % (Auto) 2.7 L [place] % (Auto) 4.9 Eos % (Auto) 2.1 Baso % (Auto) 0.2 Lymph # (Auto) 0.4 L [place] # (Auto) 0.8 Eos # (Auto) 0.3 Baso # (Auto) 0.0 Abs Immat Gran (auto) 0.07 H Absolute Neuts (auto) 14.4 H Absolute Nucleated RBC 0.000 Nucleated RBC % (auto) 0.0 PT 13.3 H INR 1.2 H Anion Gap 16 Estim Creat Clear Calc 70.1 Estimated GFR > 60 Random Glucose 149 H Lactic Acid Calcium 8.5 Total Bilirubin 0.4 Direct Bilirubin 0.2 AST 12 ALT 12 Alkaline Phosphatase 69 Troponin I High Sens B-Natriuretic Peptide Total Protein 6.9 Albumin 3.8 COVID-19 ([facility]) COVID-19 Clin Com 01/23/22 01/23/22 01/23/22 12:38 12:38 12:38 MCV MCH MCHC RDW Plt Count MPV Immature Gran % (Auto) Neut % (Auto) Lymph % (Auto) [place] % (Auto) Eos % (Auto) Baso % (Auto) Lymph # (Auto) [place] # (Auto) Eos # (Auto) Baso # (Auto) Abs Immat Gran (auto) Absolute Neuts (auto) Absolute Nucleated RBC Nucleated RBC % (auto) PT INR Anion Gap Estim Creat Clear Calc Estimated GFR Random Glucose Lactic Acid Calcium Total Bilirubin Direct Bilirubin AST ALT Alkaline Phosphatase Troponin I High Sens 4.9 B-Natriuretic Peptide 13 Total Protein Albumin COVID-19 ([facility]) Negative COVID-19 Clin Com See Note 01/23/22 12:39 MCV MCH MCHC RDW Plt Count MPV Immature Gran % (Auto) Neut % (Auto) Lymph % (Auto) [place] % (Auto) Eos % (Auto) Baso % (Auto) Lymph # (Auto) [place] # (Auto) Eos # (Auto) Baso # (Auto) Abs Immat Gran (auto) Absolute Neuts (auto) Absolute Nucleated RBC Nucleated RBC % (auto) PT INR Anion Gap Estim Creat Clear Calc Estimated GFR Random Glucose Lactic Acid 1.4 Calcium Total Bilirubin Direct Bilirubin AST ALT Alkaline Phosphatase Troponin I High Sens B-Natriuretic Peptide Total Protein Albumin COVID-19 ([facility]) COVID-19 Clin Com Imaging Radiologist's Impressions: Impressions Chest X-Ray 01/23/22 13:28 IMPRESSION: Extensive bilateral airspace opacities unchanged. Assessment and Plan (1) Urinary retention: Status: Acute (2) COPD (chronic obstructive pulmonary disease): Status: Acute (3) Bronchiectasis with (acute) exacerbation: Status: Acute (4) Hearing loss: Status: Acute Plan 81-year-old gentleman with past medical history significant for COPD/bronch iectasis not on home oxygen, discharged from [facility] last month after being treated for severe sepsis due to ESBL E coli pneumonia, acute respiratory failure with hypoxia, new onset atrial fibrillation with RVR,, urinary retention patient was discharged home on Eliquis however after discharge patient developed hematuria and subsequently seen by Urology underwent cystoscopy and transurethral resection of bladder lesion and was discharged home on indwelling Schwarz catheter patient presented to [facility] today due to shortness of breath cough, in the ER patient noted to be hypoxic therefore being admitted to [facility] for acute hypoxic respiratory failure due to COPD exacerbation. Acute hypoxic respiratory failure due to COPD exacerbation Admit to medical floor Will place on scheduled and as needed updraft treatment, IV steroids, cough medication, will hold off on antibiotics chest x-ray showed no acute infiltrate Continue close clinical follow-up and supportive care Urinary retention status post cystoscopy, transurethral resection of bladder lesion on 01/17 by urology, now with Schwarz catheter will check urinalysis due to foul odor Recent urine culture grew VRE as per patient he was treated with 7 day course of ceftin by ED physician on 12/30 , followed by 7 day course of Cipro prescribed on 01/11 by Urology Paroxysmal Atrial fibrillation with RVR now in normal sinus rhythm continue Coreg and Eliquis Nonischemic cardiomyopathy continue Coreg and Entresto GERD continue PPI Code status full code DVT prophylaxis on Eliquis patient will need 2 night inpatient hospitalization for treatment of acute COPD exacerbation with hypoxic respiratory failure need further evaluation and treatment for Schwarz catheter and foull odor of urine Quality Stroke Does the patient have a stroke diagnosis?: No VTE Prior VTE?: No VTE Risk Level:: Medical - moderate - high VTE Device Contraindication: Treatment Not Indicated VTE Drug Contraindication: N/A - Med Ordered
[2022-01-23 16:59] LABS: Appearance Urine Cloudy; Color Urine Yellow; Glucose Urine UA Negative (Negative); Leukocyte Esterase Urine Large (3+) (Negative); Nitrite Urine Positive (Negative); PH 8.5 (5.0-9.0); UMIC TRIGGER UACC YES; Urine Blood Large (3+) (Negative); Urine Ketones Negative (Negative); Urine Protein Negative (Neg-Trace)
[2022-01-23 17:21] LABS: Bacteria Urine 4+ (None Seen); Hyaline Casts Urine 0-2 /LPF (0-2); RBC Urine >20 /HPF (0-2); Squamous Epithelial Cell Urine 0-2 /HPF (0-2); UACC Culture Trigger YES; WBC Urine 21-50 /HPF (0-5)
--- NOTE | 2022-01-23 19:03 | PC.NURSE ---
Spoke to critical care nurse specialist Viviane who states pt is supposed to be on 2lpm via nc continuous at home.
[2022-01-23] MEDS: carvediloL 12.5 MG TABLET PO (21:04)
[2022-01-23] MEDS: Docusate Sodium 100 MG CAPSULE PO (21:04)
[2022-01-23] MEDS: Apixaban 5 MG TABLET PO (21:04)
[2022-01-23] MEDS: guaiFENesin DM 100/10/5 ML 5 ML SYRUP 10 ML PO (21:18)
--- NOTE | 2022-01-23 21:22 | PC.NURSE ---
This nurse called to give report, DEANNA Burleson answered and reports she already got report. This RN will call Shimon to transfer pat to S3.
[2022-01-23] MEDS: timoloL maleate 0.5 % Oph Sol 5 ML DRBTL 1 DROP EYE-BOTH (22:30)
[2022-01-23] MEDS: Latanoprost 0.005 % Ophth Sol 2.5 ML DROPS 1 DROP EYE-BOTH (22:30)
[2022-01-23] MEDS: Brimonidine Tartrate 0.2% Oph 5 ML BOTTLE 1 DROP EYE-BOTH (22:30)
[2022-01-23] MEDS: 0.9 % Sodium Chloride Flush 3 ML SYRINGE IVFLUSH (22:31)
[2022-01-23] MEDS: Omeprazole 40 MG CAPSULE.DR PO (22:36)
[2022-01-24] VITALS (8 sets, daily range): BP systolic 127–164; BP diastolic 61–82; PULSE 71–72; RESP 12–22; TEMP 36–36.8; O2SAT 92–96
[2022-01-24] MEDS: methylPREDNISolone Sod Succ 40 MG/ML VIAL IVPUSH ×2 (02:01→14:49)
[2022-01-24] MEDS: Omeprazole 40 MG CAPSULE.DR PO (05:04)
[2022-01-24] MEDS: Albuterol/Iprat 2.5/0.5MG 3 ML AMPUL.NEB INHALE ×3 (08:15→21:11)
[2022-01-24] MEDS: Finasteride 5 MG TABLET PO (08:31)
[2022-01-24] MEDS: Mirabegron 25 MG TAB.ER.24H PO (08:32)
[2022-01-24] MEDS: Tamsulosin HCL 0.4 MG CAPSULE PO (08:32)
[2022-01-24] MEDS: carvediloL 12.5 MG TABLET PO ×2 (08:32→21:31)
[2022-01-24] MEDS: Apixaban 5 MG TABLET PO ×2 (08:32→21:31)
[2022-01-24] MEDS: timoloL maleate 0.5 % Oph Sol 5 ML DRBTL 1 DROP EYE-BOTH ×2 (08:32→21:33)
[2022-01-24] MEDS: guaiFENesin DM 100/10/5 ML 5 ML SYRUP 10 ML PO ×3 (08:32→21:31)
[2022-01-24] MEDS: 0.9 % Sodium Chloride Flush 3 ML SYRINGE IVFLUSH ×3 (08:32→23:52)
[2022-01-24] MEDS: Docusate Sodium 100 MG CAPSULE PO ×2 (08:32→21:31)
[2022-01-24] MEDS: polyethylene glycoL 3350 17 GM POWD.PACK PO (08:32)
[2022-01-24] MEDS: Brimonidine Tartrate 0.2% Oph 5 ML BOTTLE 1 DROP EYE-BOTH ×2 (08:33→21:32)
[2022-01-24] MEDS: Linezolid/D5W 600 MG/300 ML PIGGYBACK 300 MG IV ×2 (11:34→23:51)
--- NOTE | 2022-01-24 13:38 | P.PNIM_ITS ---
Subjective Subjective Date of Service: 01/24/22 Interval History: Feeling better this morning less shortness of breath and cough, no overnight events, no fevers no chills, no headache no lightheadedness no dizziness no nausea no vomiting no abdominal pain tolerating diet Schwarz bag with clear urine Review of Systems Review of Systems: Yes all other systems are reviewed and are negative Physical Exam Vital Signs: Vital Signs: Last Vital Signs Temp 98.3 F 01/24/22 11:49 Pulse 71 01/24/22 11:49 Resp 16 01/24/22 11:49 BP 138/78 01/24/22 11:49 Pulse Ox 95 01/24/22 11:49 O2 Del Method 01/24/22 11:49 BMI result Body Mass Index 24.5 Const: Other: General awake alert x3 in no acute distress.? Anicteric sclera Neck? supple no JVD. CVS? regular rate rhythm, Respiratory lungs clear to auscultation, no respiratory distress, no wheeze, no rhonchi. Gastrointestinal abdomen soft, nontender, bowel sounds audible, no guarding , no rigidity. Extremities no edema. Neuro nonfocal Skin no rash Psych appropriate affect Schwarz bag to left leg clear urine/no hematuria Objective Data Active Medications Acetaminophen (Acetaminophen 325 Mg Tablet) 650 mg PO Q6H PRN PRN Reason: Pain, Mild (Pain Scale 1-3) Albuterol Sulfate (Albuterol Sulfate 90 Mcg 8 Gm Inhaler) 2 puff INHALE Q4H PRN PRN Reason: shortness of breath or wheezing Albuterol/Ipratropium (Albuterol/Iprat 2.5/0.5mg 3 Ml Ampul.Neb) 3 ml INHALE QID PRN PRN Reason: for dyspnea Albuterol/Ipratropium (Albuterol/Iprat 2.5/0.5mg 3 Ml Ampul.Neb) 3 ml INHALE RQID [facility] Last Admin: 01/24/22 10:58 Dose: 3 ml Documented By: TYREE Apixaban (Apixaban 5 Mg Tablet) 5 mg PO BID [facility] Last Admin: 01/24/22 08:32 Dose: 5 mg Documented By: COTEMA Brimonidine Tartrate (Brimonidine Tartrate 0.2% Oph 5 Ml Bottle) 1 drop EYE- BOTH BID [facility] Last Admin: 01/24/22 08:33 Dose: 1 drop Documented By: RENETTA Carvedilol (Carvedilol 12.5 Mg Tablet) 12.5 mg PO BID [facility]; Protocol Last Admin: 01/24/22 08:32 Dose: 12.5 mg Documented By: RENETTA Docusate Sodium (Docusate Sodium 100 Mg Capsule) 100 mg PO BID [facility] Last Admin: 01/24/22 08:32 Dose: 100 mg Documented By: RENETTA Doxycycline Monohydrate (Doxycycline Monohydrate 100 Mg Capsule) 100 mg PO MoWeFr@0900 [facility] Finasteride (Finasteride 5 Mg Tablet) 5 mg PO DAILY [facility] Last Admin: 01/24/22 08:31 Dose: 5 mg Documented By: RENETTA Guaifenesin/Dextromethorphan (Guaifenesin Dm 100/10/5 Ml 5 Ml Syrup) 10 ml PO TID [facility] Last Admin: 01/24/22 08:32 Dose: 10 ml Documented By: RENETTA Linezolid (Zyvox/D5w) 600 mg in 300 mls @ 300 mls/hr IV Q12H [facility] Last Infusion: 01/24/22 12:45 Dose: 0 mls/hr Documented By: RENETTA Latanoprost (Latanoprost 0.005 % Ophth Thalia 2.5 Ml Drops) 1 drop EYE-BOTH BEDTIME [facility] Last Admin: 01/23/22 22:30 Dose: 1 drop Documented By: KEENAN Melatonin (Melatonin 3 Mg Tablet) 3 mg PO BEDTIME PRN PRN Reason: Insomnia Methylprednisolone Sodium Succinate (Methylprednisolone Sod Succ 40 Mg/Ml Vial) 40 mg IVPUSH Q12H [facility] Last Admin: 01/24/22 02:01 Dose: 40 mg Documented By: KEENAN Mirabegron (Mirabegron 25 Mg Tab.Er.24h) 25 mg PO DAILY [facility] Last Admin: 01/24/22 08:32 Dose: 25 mg Documented By: RENETTA Omeprazole (Omeprazole 40 Mg Capsule.Dr) 40 mg PO DAILY@0630 [facility] Last Admin: 01/24/22 05:04 Dose: 40 mg Documented By: KEENAN Ondansetron HCl (Ondansetron Hcl 4 Mg/2 Ml Vial) 4 mg IVPUSH Q8H PRN PRN Reason: Nausea and Vomiting Pharmacy Consult (Consult Rx Perform Med Rec) 1 each MISCELLANE ONCE PRN PRN Reason: Consult order Polyethylene Glycol (Polyethylene Glycol 3350 17 Gm Powd.Pack) 17 gm PO DAILY PRN PRN Reason: constipation Last Admin: 01/24/22 08:32 Dose: 17 gm Documented By: RENETTA Pravastatin Sodium (Pravastatin Sodium 10 Mg Tablet) 10 mg PO DAILY [facility] Last Admin: 01/24/22 08:31 Dose: Not Given Documented By: RENETTA Non-Admin Reason: Med Not Available Sodium Chloride (0.9 % Sodium Chloride Flush 3 Ml Syringe) 3 ml IVFLUSH QSHIFT [facility] Last Admin: 01/24/22 08:32 Dose: 3 ml Documented By: RENETTA Tamsulosin HCl (Tamsulosin Hcl 0.4 Mg Capsule) 0.4 mg PO DAILY [facility] Last Admin: 01/24/22 08:32 Dose: 0.4 mg Documented By: RENETTA Timolol Maleate (Timolol Maleate 0.5 % Oph Thalia 5 Ml Drbtl) 1 drop EYE-BOTH BID [facility] Last Admin: 01/24/22 08:32 Dose: 1 drop Documented By: RENETTA Labs CBC & Chem 7: 01/23/22 12:38 01/23/22 12:38 Labs: Laboratory Results - last 24 hr 01/23/22 16:53 Urine Color Yellow Urine Appearance Cloudy Urine pH 8.5 Ur Specific [place] 1.010 Urine Protein Negative Urine Glucose (UA) Negative Urine Ketones Negative Urine Blood Large (3+) H Urine Nitrite Positive H Ur Leukocyte Esterase Large (3+) H Urine RBC >20 H Urine WBC 21-50 H Ur Squamous Epith Cells 0-2 Urine Bacteria 4+ Hyaline Casts 0-2 Microbiology Microbiology Results: Microbiology 01/23/22 Unknown Urine Culture - Preliminary Urine clean catch - Urine swanson top Gram negative dana Assessment and Plan (1) COPD (chronic obstructive pulmonary disease): Status: Acute (2) Essential hypertension: Status: Acute Plan 81-year-old gentleman with past medical history significant for COPD/bronchiectasis not on home oxygen, discharged [facility] month after being treated for severe sepsis due to ESBL E coli pneumonia, acute respiratory failure with hypoxia, new onset atrial fibrillation with RVR,, urinary retention patient was discharged home on Eliquis however after discharge patient developed hematuria and subsequently seen by Urology underwent cystoscopy and transurethral resection of bladder lesion and was discharged home on indwelling Schwarz catheter patient presented to [facility] today due to shortness of breath cough, in the ER patient noted to be hypoxic therefore being admitted to [facility] for acute hypoxic respiratory failure due to COPD exacerbation. Acute hypoxic respiratory failure due to COPD exacerbation Feeling better less shortness of breath and cough no fevers no chills Continue scheduled and as needed updraft treatment, IV steroids, cough medication, chest x-ray showed no acute infiltrate, hold antibiotics Continue close clinical follow-up and supportive care, will transition to by mouth steroids if remains stable in next 24 hours Urinary retention status post cystoscopy, transurethral resection of bladder lesion on 01/17 by urology, now with Schwarz catheter? Bladder biopsy negative for malignancy UTI UA positive/leukocytosis Recent urine culture grew VRE as per patient he was treated with 7 day course of ceftin by ED physician on 12/30 , followed by 7 day course of Cipro prescribed on 01/[address] on iv ertapenem consult ID await UC Paroxysmal Atrial fibrillation with RVR now in normal sinus rhythm continue Coreg and Eliquis , Eliquis was called in by PCP on 01 13 therefore will continue Nonischemic cardiomyopathy continue Coreg and Entresto GERD continue PPI Code status full code DVT prophylaxis on Eliquis ?patient will need continued inpatient hospitalization for treatment of acute COPD exacerbation with hypoxic respiratory failure need further evaluation and treatment for UTI Quality Stroke Does the patient have a stroke diagnosis?: No VTE Prior VTE?: No VTE Risk Level:: Medical - moderate - high VTE Device Contraindication: Treatment Not Indicated VTE Drug Contraindication: N/A - Med Ordered
[2022-01-24] MEDS: Sacubitril/Valsartan 24/26 1 TAB TABLET PO (21:31)
[2022-01-24] MEDS: Latanoprost 0.005 % Ophth Sol 2.5 ML DROPS 1 DROP EYE-BOTH (21:32)
[2022-01-25] VITALS (7 sets, daily range): BP systolic 121–166; BP diastolic 77–89; PULSE 68–78; RESP 17–18; TEMP 36.4–37.4; O2SAT 93–98
[2022-01-25] MEDS: methylPREDNISolone Sod Succ 40 MG/ML VIAL IVPUSH (02:54)
[2022-01-25] MEDS: Omeprazole 40 MG CAPSULE.DR PO (06:21)
--- NOTE | 2022-01-25 06:59 | MHC.CM.PN ---
PATIENT LIVES ALONE. HE USES NO DME BUT DOES HAVE A WEEKLY RN VISIT SCHEDULE. RN VISITS ON WEDNESDAYS. [facility] PCP IS LESA ANGUIANO HIS CAR IS IN THE LOT. IMM 01/24 IN CHART
--- NOTE | 2022-01-25 07:07 | MHC.CM.PN ---
HCP FOUND IN HISTORICAL VISITS. HE NAMED HIS SON, HUGO SERRANO.
[2022-01-25] MEDS: Albuterol/Iprat 2.5/0.5MG 3 ML AMPUL.NEB INHALE ×3 (07:40→20:01)
[2022-01-25] MEDS: Brimonidine Tartrate 0.2% Oph 5 ML BOTTLE 1 DROP EYE-BOTH ×2 (08:10→20:48)
[2022-01-25] MEDS: Docusate Sodium 100 MG CAPSULE PO ×2 (08:10→20:51)
[2022-01-25] MEDS: timoloL maleate 0.5 % Oph Sol 5 ML DRBTL 1 DROP EYE-BOTH ×2 (08:10→20:47)
[2022-01-25] MEDS: Sacubitril/Valsartan 24/26 1 TAB TABLET PO ×2 (08:11→20:43)
[2022-01-25] MEDS: carvediloL 12.5 MG TABLET PO ×2 (08:11→20:43)
[2022-01-25] MEDS: Tamsulosin HCL 0.4 MG CAPSULE PO (08:11)
[2022-01-25] MEDS: Doxycycline Monohydrate 100 MG CAPSULE PO (08:11)
[2022-01-25] MEDS: guaiFENesin DM 100/10/5 ML 5 ML SYRUP 10 ML PO ×3 (08:11→20:42)
[2022-01-25] MEDS: Finasteride 5 MG TABLET PO (08:11)
[2022-01-25] MEDS: Mirabegron 25 MG TAB.ER.24H PO (08:11)
[2022-01-25] MEDS: Apixaban 5 MG TABLET PO ×2 (08:11→20:43)
[2022-01-25] MEDS: 0.9 % Sodium Chloride Flush 3 ML SYRINGE IVFLUSH ×2 (08:12→20:45)
[2022-01-25] MEDS: Linezolid/D5W 600 MG/300 ML PIGGYBACK 300 MG IV (12:03)
--- NOTE | 2022-01-25 13:59 | P.PNIM_ITS ---
Subjective Subjective Date of Service: 01/25/22 Interval History: offers no acute complaints denies fever chills, Schwarz to left leg bag with clear urine no hematuria noted, urine culture growing E coli final sensitivities pending,, no acute events overnight Review of Systems COURT ORDERLY no headache no dizziness CVS no chest pain respiratory no shortness of breath Review of Systems: Yes all other systems are reviewed and are negative Physical Exam Vital Signs: Vital Signs: Last Vital Signs Temp 97.9 F 01/25/22 07:56 Pulse 72 01/25/22 11:12 Resp 18 01/25/22 11:12 BP 158/83 H 01/25/22 07:56 Pulse Ox 94 01/25/22 07:56 O2 Del Method 01/25/22 07:56 BMI result Body Mass Index 24.5 Const: Other: General awake alert x3 in no acute distress.? Anicteric sclera Neck? supple no JVD. CVS? regular rate rhythm, Respiratory lungs clear to auscultation, no respiratory distress, no wheeze, no rhonchi. Gastrointestinal abdomen soft, nontender, bowel sounds audible, no guarding , no rigidity. Extremities no edema. Neuro nonfocal Skin no rash Psych appropriate affect Schwarz bag to left leg clear urine/no hematuria Objective Data Active Medications Acetaminophen (Acetaminophen 325 Mg Tablet) 650 mg PO Q6H PRN PRN Reason: Pain, Mild (Pain Scale 1-3) Albuterol Sulfate (Albuterol Sulfate 90 Mcg 8 Gm Inhaler) 2 puff INHALE Q4H PRN PRN Reason: shortness of breath or wheezing Albuterol/Ipratropium (Albuterol/Iprat 2.5/0.5mg 3 Ml Ampul.Neb) 3 ml INHALE QID PRN PRN Reason: for dyspnea Albuterol/Ipratropium (Albuterol/Iprat 2.5/0.5mg 3 Ml Ampul.Neb) 3 ml INHALE RQID [facility] Last Admin: 01/25/22 11:11 Dose: 3 ml Documented By: TYREE Apixaban (Apixaban 5 Mg Tablet) 5 mg PO BID [facility] Last Admin: 01/25/22 08:11 Dose: 5 mg Documented By: NAOMIE Brimonidine Tartrate (Brimonidine Tartrate 0.2% Oph 5 Ml Bottle) 1 drop EYE- BOTH BID [facility] Last Admin: 01/25/22 08:10 Dose: 1 drop Documented By: NAOMIE Carvedilol (Carvedilol 12.5 Mg Tablet) 12.5 mg PO BID [facility]; Protocol Last Admin: 01/25/22 08:11 Dose: 12.5 mg Documented By: NAOMIE Docusate Sodium (Docusate Sodium 100 Mg Capsule) 100 mg PO BID [facility] Last Admin: 01/25/22 08:10 Dose: 100 mg Documented By: NAOMIE Doxycycline Monohydrate (Doxycycline Monohydrate 100 Mg Capsule) 100 mg PO MoWeFr@0900 [facility] Last Admin: 01/25/22 08:11 Dose: 100 mg Documented By: NAOMIE Finasteride (Finasteride 5 Mg Tablet) 5 mg PO DAILY [facility] Last Admin: 01/25/22 08:11 Dose: 5 mg Documented By: NAOMIE Guaifenesin/Dextromethorphan (Guaifenesin Dm 100/10/5 Ml 5 Ml Syrup) 10 ml PO TID [facility] Last Admin: 01/25/22 08:11 Dose: 10 ml Documented By: NAOMIE Linezolid (Zyvox/D5w) 600 mg in 300 mls @ 300 mls/hr IV Q12H [facility] Last Admin: 01/25/22 12:03 Dose: 300 mls/hr Documented By: NAOMIE Latanoprost (Latanoprost 0.005 % Ophth Thalia 2.5 Ml Drops) 1 drop EYE-BOTH BEDTIME [facility] Last Admin: 01/24/22 21:32 Dose: 1 drop Documented By: KAYLAH Melatonin (Melatonin 3 Mg Tablet) 3 mg PO BEDTIME PRN PRN Reason: Insomnia Methylprednisolone Sodium Succinate (Methylprednisolone Sod Succ 40 Mg/Ml Vial) 40 mg IVPUSH Q12H [facility] Last Admin: 01/25/22 02:54 Dose: 40 mg Documented By: ISAURA Mirabegron (Mirabegron 25 Mg Tab.Er.24h) 25 mg PO DAILY [facility] Last Admin: 01/25/22 08:11 Dose: 25 mg Documented By: NAOMIE Omeprazole (Omeprazole 40 Mg Capsule.) 40 mg PO DAILY@0630 [facility] Last Admin: 01/25/22 06:21 Dose: 40 mg Documented By: ISAURA Ondansetron HCl (Ondansetron Hcl 4 Mg/2 Ml Vial) 4 mg IVPUSH Q8H PRN PRN Reason: Nausea and Vomiting Pharmacy Consult (Consult Rx Perform Med Rec) 1 each MISCELLANE ONCE PRN PRN Reason: Consult order Polyethylene Glycol (Polyethylene Glycol 3350 17 Gm Powd.Pack) 17 gm PO DAILY PRN PRN Reason: constipation Last Admin: 01/24/22 08:32 Dose: 17 gm Documented By: RENETTA Pravastatin Sodium (Pravastatin Sodium 10 Mg Tablet) 10 mg PO DAILY [facility] Last Admin: 01/25/22 10:05 Dose: Not Given Documented By: NAOMIE Non-Admin Reason: Med Not Available Sacubitril/Valsartan (Sacubitril/Valsartan 1 Tab Tablet) 1 tab PO BID [facility]; Protocol Last Admin: 01/25/22 08:11 Dose: 1 tab Documented By: NAOMIE Sodium Chloride (0.9 % Sodium Chloride Flush 3 Ml Syringe) 3 ml IVFLUSH QSHIFT [facility] Last Admin: 01/25/22 08:12 Dose: 3 ml Documented By: NAOMIE Tamsulosin HCl (Tamsulosin Hcl 0.4 Mg Capsule) 0.4 mg PO DAILY [facility] Last Admin: 01/25/22 08:11 Dose: 0.4 mg Documented By: NAOMIE Timolol Maleate (Timolol Maleate 0.5 % Oph Thalia 5 Ml Drbtl) 1 drop EYE-BOTH BID [facility] Last Admin: 01/25/22 08:10 Dose: 1 drop Documented By: NAOMIE Labs CBC & Chem 7: 01/23/22 12:38 01/23/22 12:38 Microbiology Microbiology Results: Microbiology 01/23/22 Unknown Urine Culture - Preliminary Urine clean catch - Urine swanson top Escherichia coli 01/23/22 12:39 Blood Culture - Preliminary Blood - Venous No growth after 24 hours. 01/23/22 12:39 Blood Culture - Preliminary Blood - Venous No growth after 24 hours. Assessment and Plan (1) COPD (chronic obstructive pulmonary disease): Status: Acute (2) Essential hypertension: Status: Acute Plan 81-year-old gentleman with past medical history significant for COPD/bronchiectasis not on home oxygen, discharged from [facility] last month after being treated for severe sepsis due to ESBL E coli pneumonia, acute respiratory failure with hypoxia, new onset atrial fibrillation with RVR,, urinary retention patient was discharged home on Eliquis however after discharge patient developed hematuria and subsequently seen by Urology underwent cystoscopy and transurethral resection of bladder lesion and was discharged home on indwelling Schwarz catheter patient presented to [facility] today due to shortness of breath cough, in the ER patient noted to be hypoxic therefore being admitted to [facility] for acute hypoxic respiratory failure due to COPD exacerbation. Acute hypoxic respiratory failure due to COPD exacerbation Feeling better, shortness of breath resolved, no fevers no chills Continue scheduled and as needed updraft treatment, DC IV steroids, continue supportive care cough medications and analgesics Urinary retention status post cystoscopy, transurethral resection of bladder lesion on 01/17 by urology, now with Schwarz catheter? Bladder biopsy negative for malignancy, no hematuria noted UTI UA positive/leukocytosis Recent urine culture grew VRE as per patient he was treated with 7 day course of ceftin by ED physician on 12/30 , followed by 7 day course of Cipro prescribed on 01/11 by Urology on iv ertapenem , urine culture growing E coli await final sensitivities and adjust antibiotics Paroxysmal Atrial fibrillation with RVR now in normal sinus rhythm continue Coreg and Eliquis Nonischemic cardiomyopathy continue Coreg and Entresto GERD continue PPI Code status full code DVT prophylaxis on Eliquis ?patient will need continued inpatient hospitalization for treatment of acute COPD exacerbation with hypoxic respiratory failure need further evaluation and treatment for UTI Quality Stroke Does the patient have a stroke diagnosis?: No VTE Prior VTE?: No VTE Risk Level:: Medical - moderate - high VTE Device Contraindication: Treatment Not Indicated VTE Drug Contraindication: N/A - Med Ordered
--- NOTE | 2022-01-25 15:53 | MHC.CM.PN ---
EMR REVIEWED PT NOT MEDICALLY CLEARED FOR DC,(COPD EXACERBATION AND UTI) CM WILL CONTINUE TO FOLLOW
--- NOTE | 2022-01-25 16:26 | P.CNID_ITS ---
History of Present Illness Data of Consult Service Date: 01/25/22 Requesting physician: Wilian Zelaya Primary Care Provider: Unknown Physician HPI Reason for consult: Shortness of breath,pyuria and bacteriuria He presents with shortness of breath and COPD exacerbation. He has been on steroids and home oxygen and CT/CXR shows bronchiectasis. He has also pyuria but no urinary symptoms except for change urine color He has been on Ceftin for seven days 12/30,seven days Cipro 250 bid 01/11 He has chronic Schwarz He has E coli urine now Review of Systems Review of Systems: Yes all other systems are reviewed and are negative [facility] Past Medical History Medical History Bronchiectasis Bronchiectasis with (acute) exacerbation Bronchitis Bronchitis Congestive heart failure COPD (chronic obstructive pulmonary disease) COPD (chronic obstructive pulmonary disease) COPD exacerbation Essential hypertension GERD (gastroesophageal reflux disease) Glaucoma Hearing loss Hernia History of MAC infection Hypoxia JESSA (mycobacterium avium-intracellulare) Medicare annual wellness visit, initial Medicare annual wellness visit, subsequent New onset atrial fibrillation NICM (nonischemic cardiomyopathy) Paroxysmal atrial fibrillation Pure hypercholesterolemia Family History Family History Father No problems noted. Mother Medical history unknown Sister Diabetes Daughter In good health Son In good health Brother No problems noted. 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) Alcohol intake: unknown Patient Tobacco Use Status: Former Tobacco user Quit Date: 6 years ago e-Cigarette/Vaping Use: Never Used Second Hand Smoke Exposure: No Use of substances other than those prescribed or required for medical reasons: No Currently Displaying Signs/Symptoms of Drug Intoxication Withdrawal: No Advance Directives: Yes Advance Directives Information Provided: Yes Advance Directives on File: No Advance Directives Date on File: 07/12/21 Do you have thoughts of harming others: None Do you have a plan to hurt others: No Plan Recently lost weight without trying: No Nutrition Risks: No Nutritional Risk service: No Current occupational status: disabled Cognitive needs: No Hearing needs: Yes Vision needs: Yes Meds Allergies Allergy/AdvReac Type Severity Reaction Status Date / Time Penicillins [PENICILLINS] Allergy Intermediate PASSED Verified 01/17/22 06:11 OUT trazodone Allergy Intermediate tremors Verified 01/17/22 06:11 Active Medications: Current Medications Acetaminophen (Acetaminophen 325 Mg Tablet) 650 mg PO Q6H PRN PRN Reason: Pain, Mild (Pain Scale 1-3) Albuterol Sulfate (Albuterol Sulfate 90 Mcg 8 Gm Inhaler) 2 puff INHALE Q4H PRN PRN Reason: shortness of breath or wheezing Albuterol/Ipratropium (Albuterol/Iprat 2.5/0.5mg 3 Ml Ampul.Neb) 3 ml INHALE RTID TON Albuterol/Ipratropium (Albuterol/Iprat 2.5/0.5mg 3 Ml Ampul.Neb) 3 ml INHALE RQID PRN PRN Reason: for dyspnea Apixaban (Apixaban 5 Mg Tablet) 5 mg PO BID [facility] Last Admin: 01/25/22 08:11 Dose: 5 mg Brimonidine Tartrate (Brimonidine Tartrate 0.2% Oph 5 Ml Bottle) 1 drop EYE- BOTH BID [facility] Last Admin: 01/25/22 08:10 Dose: 1 drop Carvedilol (Carvedilol 12.5 Mg Tablet) 12.5 mg PO BID [facility]; Protocol Last Admin: 01/25/22 08:11 Dose: 12.5 mg Docusate Sodium (Docusate Sodium 100 Mg Capsule) 100 mg PO BID [facility] Last Admin: 01/25/22 08:10 Dose: 100 mg Doxycycline Monohydrate (Doxycycline Monohydrate 100 Mg Capsule) 100 mg PO MoWeFr@0900 [facility] Last Admin: 01/25/22 08:11 Dose: 100 mg Finasteride (Finasteride 5 Mg Tablet) 5 mg PO DAILY [facility] Last Admin: 01/25/22 08:11 Dose: 5 mg Guaifenesin/Dextromethorphan (Guaifenesin Dm 100/10/5 Ml 5 Ml Syrup) 10 ml PO TID [facility] Last Admin: 01/25/22 15:24 Dose: 10 ml Linezolid (Zyvox/D5w) 600 mg in 300 mls @ 300 mls/hr IV Q12H [facility] Last Infusion: 01/25/22 14:01 Dose: Infused Latanoprost (Latanoprost 0.005 % Ophth Thalia 2.5 Ml Drops) 1 drop EYE-BOTH BEDTIME [facility] Last Admin: 01/24/22 21:32 Dose: 1 drop Melatonin (Melatonin 3 Mg Tablet) 3 mg PO BEDTIME PRN PRN Reason: Insomnia Mirabegron (Mirabegron 25 Mg Tab.Er.24h) 25 mg PO DAILY [facility] Last Admin: 01/25/22 08:11 Dose: 25 mg Omeprazole (Omeprazole 40 Mg Capsule.Dr) 40 mg PO DAILY@0630 [facility] Last Admin: 01/25/22 06:21 Dose: 40 mg Ondansetron HCl (Ondansetron Hcl 4 Mg/2 Ml Vial) 4 mg IVPUSH Q8H PRN PRN Reason: Nausea and Vomiting Pharmacy Consult (Consult Rx Perform Med Rec) 1 each MISCELLANE ONCE PRN PRN Reason: Consult order Polyethylene Glycol (Polyethylene Glycol 3350 17 Gm Powd.Pack) 17 gm PO DAILY PRN PRN Reason: constipation Last Admin: 01/24/22 08:32 Dose: 17 gm Pravastatin Sodium (Pravastatin Sodium 10 Mg Tablet) 10 mg PO DAILY [facility] Last Admin: 01/25/22 10:05 Dose: Not Given Prednisone (Prednisone 20 Mg Tablet) 20 mg PO DAILY [facility] Sacubitril/Valsartan (Sacubitril/Valsartan 1 Tab Tablet) 1 tab PO BID [facility]; Protocol Last Admin: 01/25/22 08:11 Dose: 1 tab Sodium Chloride (0.9 % Sodium Chloride Flush 3 Ml Syringe) 3 ml IVFLUSH QSHIFT [facility] Last Admin: 01/25/22 15:25 Dose: Not Given Tamsulosin HCl (Tamsulosin Hcl 0.4 Mg Capsule) 0.4 mg PO DAILY [facility] Last Admin: 01/25/22 08:11 Dose: 0.4 mg Timolol Maleate (Timolol Maleate 0.5 % Oph Thalia 5 Ml Drbtl) 1 drop EYE-BOTH BID [facility] Last Admin: 01/25/22 08:10 Dose: 1 drop Home Medications Medication Instructions Recorded Confirmed Last Taken Type brimonidine 0.2 %-timolol 0.5 % 1 drp ophthalmic (eye) BID 03/08/21 01/23/22 03/07/21 History eye drops (Combigan) travoprost 0.004 % eye drops 1 drp ophthalmic (eye) BEDTIME 03/08/21 01/23/22 03/07/21 History doxycycline hyclate 100 mg tablet 1 tab PO MOWEFR 01/23/22 01/23/22 Unknown History mirabegron 25 mg tablet,extended 1 tab PO DAILY 01/23/22 01/23/22 Unknown History release 24 hr (Myrbetriq) prednisone 5 mg tablet 2 tab PO DAILY 01/23/22 01/23/22 Unknown History Physical Exam Vital Signs: Vital Signs: Last Vital Signs Temp 97.9 F 01/25/22 07:56 Pulse 72 01/25/22 11:12 Resp 18 01/25/22 11:12 BP 158/83 H 01/25/22 07:56 Pulse Ox 94 01/25/22 07:56 O2 Del Method 01/25/22 07:56 BMI result Body Mass Index 24.5 Const: General: cooperative HEENT: Head: Yes normal to inspection Face and sinus: Yes normal facial exam Mouth: Normal oral and palatal mucosa present Teeth and gingiva: dentition normal Eyes: General: appearance normal, both eyes and all related structures Pupils: Equal, round and reactive pupils present Resp: Effort & Inspection: normal respiratory effort Cardio: Rate: regular rate Rhythm: regular rhythm GI: Palpation (GI): Soft to palpation and nontender : General: Yes no CVA tenderness Back/Spine/Pelvis: Back: no CVA tenderness Skin: General skin exam: no rashes or lesions noted Neuro: General: moves all extremities Cranial nerves: Yes Equal, round and reactive pupils present Extrem: General: Yes normal to inspection Psych: Appearance: grossly normal Results Labs CBC & Chem 7: 01/23/22 12:38 01/23/22 12:38 Microbiology Microbiology Results: Microbiology 01/23/22 12:39 Blood - Venous Blood Culture - Preliminary No growth after 48 hours. 01/23/22 12:39 Blood - Venous Blood Culture - Preliminary No growth after 48 hours. 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 He has no fever and leukocytosis consistent with steroid use. He came in for respiratory symptoms Plan Would hold antibiotics at this time Refrain from checking urinalysis and culture unless symptoms referrable to urinary tract ,hematuria,fever or chills.
[2022-01-25] MEDS: Latanoprost 0.005 % Ophth Sol 2.5 ML DROPS 1 DROP EYE-BOTH (20:47)
[2022-01-26] MEDS: Omeprazole 40 MG CAPSULE.DR PO (05:44)
[2022-01-26 08:00] VITALS: BP 140/76; PULSE 88; RESP 18; TEMP 36.8; O2SAT 90
[2022-01-26] MEDS: Albuterol/Iprat 2.5/0.5MG 3 ML AMPUL.NEB INHALE ×2 (08:50→15:38)
[2022-01-26 08:51] VITALS: PULSE 101; RESP 22; O2SAT 89
[2022-01-26] MEDS: Mirabegron 25 MG TAB.ER.24H PO (09:25)
[2022-01-26] MEDS: Pravastatin Sodium 10 MG TABLET PO (09:26)
[2022-01-26] MEDS: Tamsulosin HCL 0.4 MG CAPSULE PO (09:26)
[2022-01-26] MEDS: Sacubitril/Valsartan 24/26 1 TAB TABLET PO ×2 (09:26→20:19)
[2022-01-26] MEDS: predniSONE 20 MG TABLET PO (09:26)
[2022-01-26] MEDS: Apixaban 5 MG TABLET PO ×2 (09:26→20:19)
[2022-01-26] MEDS: Docusate Sodium 100 MG CAPSULE PO ×2 (09:26→20:19)
[2022-01-26] MEDS: guaiFENesin DM 100/10/5 ML 5 ML SYRUP 10 ML PO ×3 (09:27→20:19)
[2022-01-26] MEDS: 0.9 % Sodium Chloride Flush 3 ML SYRINGE IVFLUSH (09:27)
[2022-01-26] MEDS: Finasteride 5 MG TABLET PO (09:27)
[2022-01-26] MEDS: Brimonidine Tartrate 0.2% Oph 5 ML BOTTLE 1 DROP EYE-BOTH ×2 (09:28→20:19)
[2022-01-26] MEDS: timoloL maleate 0.5 % Oph Sol 5 ML DRBTL 1 DROP EYE-BOTH ×2 (09:28→20:24)
[2022-01-26] MEDS: carvediloL 12.5 MG TABLET PO ×2 (09:30→20:19)
--- NOTE | 2022-01-26 10:33 | P.PNIM_ITS ---
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 supple no JVD. CV S? regular rate rh ythm, Respiratory lungs coarse breat h sounds, inspira tory wheeze, no us e of accessory mus cles. Gastrointest inal abdomen soft, nontender, bowel sounds audible, no guarding , no rig idity. Extremities no edema. Neuro n onfocal Skin no ra sh Psych appropria te affect Schwarz ba g to left leg david r urine/no hematur ia Objective Data Active Medications Acetaminophen (Acetaminophen 325 Mg Tablet) 650 mg PO Q6H PRN PRN Reason: Pain, Mild (Pain Scale 1-3) Albuterol Sulfate (Albuterol Sulfate 90 Mcg 8 Gm Inhaler) 2 puff INHALE Q4H PRN PRN Reason: shortness of breath or wheezing Albuterol/Ipratropium (Albuterol/Iprat 2.5/0.5mg 3 Ml Ampul.Neb) 3 ml INHALE RTID TON Last Admin: 01/26/22 08:50 Dose: 3 ml Documented By: TAYLOR Albuterol/Ipratropium (Albuterol/Iprat 2.5/0.5mg 3 Ml Ampul.Neb) 3 ml INHALE RQID PRN PRN Reason: for dyspnea Apixaban (Apixaban 5 Mg Tablet) 5 mg PO BID [facility] Last Admin: 01/26/22 09:26 Dose: 5 mg Documented By: NAOMIE Brimonidine Tartrate (Brimonidine Tartrate 0.2% Oph 5 Ml Bottle) 1 drop EYE- BOTH BID [facility] Last Admin: 01/26/22 09:28 Dose: 1 drop Documented By: NAOMIE Carvedilol (Carvedilol 12.5 Mg Tablet) 12.5 mg PO BID [facility]; Protocol Last Admin: 01/26/22 09:30 Dose: 12.5 mg Documented By: NAOMIE Docusate Sodium (Docusate Sodium 100 Mg Capsule) 100 mg PO BID [facility] Last Admin: 01/26/22 09:26 Dose: 100 mg Documented By: NAOMIE Doxycycline Monohydrate (Doxycycline Monohydrate 100 Mg Capsule) 100 mg PO MoWeFr@0900 [facility] Last Admin: 01/25/22 08:11 Dose: 100 mg Documented By: NAOMIE Finasteride (Finasteride 5 Mg Tablet) 5 mg PO DAILY [facility] Last Admin: 01/26/22 09:27 Dose: 5 mg Documented By: NAOMIE Guaifenesin/Dextromethorphan (Guaifenesin Dm 100/10/5 Ml 5 Ml Syrup) 10 ml PO TID [facility] Last Admin: 01/26/22 09:27 Dose: 10 ml Documented By: NAOMIE Latanoprost (Latanoprost 0.005 % Ophth Thalia 2.5 Ml Drops) 1 drop EYE-BOTH BEDTIME [facility] Last Admin: 01/25/22 20:47 Dose: 1 drop Documented By: JADIEL Melatonin (Melatonin 3 Mg Tablet) 3 mg PO BEDTIME PRN PRN Reason: Insomnia Mirabegron (Mirabegron 25 Mg Tab.Er.24h) 25 mg PO DAILY [facility] Last Admin: 01/26/22 09:25 Dose: 25 mg Documented By: NAOMIE Omeprazole (Omeprazole 40 Mg Capsule.) 40 mg PO DAILY@0630 [facility] Last Admin: 01/26/22 05:44 Dose: 40 mg Documented By: JADIEL Ondansetron HCl (Ondansetron Hcl 4 Mg/2 Ml Vial) 4 mg IVPUSH Q8H PRN PRN Reason: Nausea and Vomiting Pharmacy Consult (Consult Rx Perform Med Rec) 1 each MISCELLANE ONCE PRN PRN Reason: Consult order Polyethylene Glycol (Polyethylene Glycol 3350 17 Gm Powd.Pack) 17 gm PO DAILY PRN PRN Reason: constipation Last Admin: 01/24/22 08:32 Dose: 17 gm Documented By: RENETTA Pravastatin Sodium (Pravastatin Sodium 10 Mg Tablet) 10 mg PO DAILY [facility] Last Admin: 01/26/22 09:26 Dose: 10 mg Documented By: NAOMIE Prednisone (Prednisone 20 Mg Tablet) 20 mg PO DAILY [facility] Last Admin: 01/26/22 09:26 Dose: 20 mg Documented By: NAOMIE Sacubitril/Valsartan (Sacubitril/Valsartan 1 Tab Tablet) 1 tab PO BID [facility]; Protocol Last Admin: 01/26/22 09:26 Dose: 1 tab Documented By: NAOMIE Sodium Chloride (0.9 % Sodium Chloride Flush 3 Ml Syringe) 3 ml IVFLUSH QSHIFT [facility] Last Admin: 01/26/22 09:27 Dose: 3 ml Documented By: NAOMIE Tamsulosin HCl (Tamsulosin Hcl 0.4 Mg Capsule) 0.4 mg PO DAILY [facility] Last Admin: 01/26/22 09:26 Dose: 0.4 mg Documented By: NAOMIE Timolol Maleate (Timolol Maleate 0.5 % Oph Thalia 5 Ml Drbtl) 1 drop EYE-BOTH BID [facility] Last Admin: 01/26/22 09:28 Dose: 1 drop Documented By: NAOMIE Labs CBC & Chem 7: 01/23/22 12:38 01/23/22 12:38 Microbiology Microbiology Results: Microbiology 01/23/22 Unknown Urine Culture - Final Urine clean catch - Urine swanson top Escherichia coli 01/23/22 12:39 Blood Culture - Preliminary Blood - Venous No growth after 48 hours. 01/23/22 12:39 Blood Culture - Preliminary Blood - Venous No growth after 48 hours. Assessment and Plan (1) COPD (chronic obstructive pulmonary disease): Status: Acute (2) Essential hypertension: Status: Acute Plan 81-year-old gentleman with past medical history significant for CO PD/bronchiectasis not on home oxygen, discharged from [facility] last month after being treated for severe sepsis due to ESBL E coli pneumonia, acute respiratory failure with hypoxia, new onset atrial fibrillation with RVR,, urinary retention patient was discharged home on Eliquis however after discharge patient developed hematuria and subsequently seen by Urology underwent cystoscopy and transurethral resection of bladder lesion and was discharged home on indwelling Schwarz catheter patient presented to [facility] today due to shortness of breath cough, in the ER patient noted to be hypoxic therefore being admitted to [facility] for acute hypoxic respiratory failure due to COPD exacerbation. Acute hypoxic respiratory failure due to COPD exacerbation with underlying br onchiectases and chronic JESSA was doing better in last 2 days with less shortness of breath and stable oxygenation on room air,this morning patient complaining of shortness of breath, worse with activity oxygenation 89% on room air will place back on IV steroids 40 mg bid, continue updraft q.i.d. 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 Bladder biopsy negative for malignancy, no hematuria noted UTI patient seen by ID antibiotic discontinued since his urine is colonized and he is asymptomatic Paroxysmal Atrial fibrillation with RVR now in normal sinus rhythm continue Coreg and Eliquis Nonischemic cardiomyopathy continue Coreg and Entresto GERD continue PPI Code status full code DVT prophylaxis on Eliquis ?patient will need continued inpatient hospitalization for treatment of acute COPD exacerbation with hypoxic respiratory failure need further evaluation Quality Stroke Does the patient have a stroke diagnosis?: No VTE Prior VTE?: No VTE Risk Level:: Medical - moderate - high VTE Device Contraindication: Treatment Not Indicated VTE Drug Contraindication: N/A - Med Ordered
[2022-01-26] MEDS: methylPREDNISolone Sod Succ 40 MG/ML VIAL IVPUSH ×2 (13:21→23:44)
[2022-01-26 15:31] VITALS: BP 123/67; PULSE 76; RESP 18; TEMP 37.6; O2SAT 94
[2022-01-26 15:40] VITALS: PULSE 77; RESP 20; O2SAT 88
[2022-01-26] MEDS: Latanoprost 0.005 % Ophth Sol 2.5 ML DROPS 1 DROP EYE-BOTH (20:20)
[2022-01-26 23:42] VITALS: BP 118/72; PULSE 74; RESP 18; TEMP 37.1; O2SAT 92
[2022-01-27] VITALS (7 sets, daily range): BP systolic 123–137; BP diastolic 64–72; PULSE 60–83; RESP 14–20; TEMP 36.2–37.2; O2SAT 92–97
[2022-01-27] MEDS: 0.9 % Sodium Chloride Flush 3 ML SYRINGE IVFLUSH ×4 (01:09→20:52)
[2022-01-27] MEDS: Omeprazole 40 MG CAPSULE.DR PO (05:39)
[2022-01-27 06:54] LABS: Hematocrit 43.2 % (42.0-52.0); Mean Corpuscular HGB Conc 32.4 g/dl (31.0-36.0); Mean Corpuscular Hemoglobin 27.8 pg (27.0-33.0); Mean Corpuscular Volume 85.7 fL (80.0-98.0); Platelet Count 303 X10*3/uL (160-400); Red Blood Count 5.04 X10*6/uL (4.60-5.80); Red Cell Distribution Width 13.3 % (11.0-16.0); White Blood Count 15.2 X10*3/uL (4.8-10.8)
[2022-01-27 07:00] LABS: Anion Gap 14 (12-20); Blood Urea Nitrogen 16 mg/dL (9-16); Calcium 8.7 mg/dL (8.4-10.2); Carbon Dioxide 26 mmol/L (22-29); Chloride 101 mmol/L (96-108); Creatinine Clr Calc Pharmacy 76.1; Estimated Glomerular Filt Rate > 60; Glucose Random 151 mg/dL (60-115); Potassium 4.1 mmol/L (3.3-5.1); Sodium 137 mmol/L (135-145)
[2022-01-27] MEDS: Albuterol/Iprat 2.5/0.5MG 3 ML AMPUL.NEB INHALE ×3 (08:11→20:28)
--- NOTE | 2022-01-27 08:15 | PM.UROCN ---
History of Present Illness Consult details Consult date: 01/27/22 Narrative: 81-year-old gentleman with past medical history significant for COPD/bronchiectasis not on home oxygen, discharged from [facility] hospital month after being treated for severe sepsis due to ESBL E coli pneumonia, acute respiratory failure with hypoxia, new onset atrial fibrillation with RVR,, urinary retention patient was discharged home on Eliquis however after discharge patient developed hematuria and underwent cystoscopy and transurethral resection of bladder lesion - path acute and chronic inflammation, no malignant cells. He was discharged home on indwelling Hermosillo catheter patient and now presented to [facility] today due to shortness of breath cough, in the ER patient noted to be hypoxic therefore being admitted to [facility] for acute hypoxic respiratory failure due to COPD exacerbation. Urology called to evaluate due to repeat onset of hematuria. On evaluation, abdomen is not distended, gross hematuria no clots, will start CBI. Review of Systems Review of Systems: 10 point ROS negative other than stated in HPI [facility] Past Medical History Medical History (Updated 01/27/22 @ 10:35 by Rosina Franklin PA-C) Bronchiectasis Bronchiectasis with (acute) exacerbation Bronchitis Congestive heart failure COPD (chronic obstructive pulmonary disease) COPD (chronic obstructive pulmonary disease) COPD exacerbation Essential hypertension GERD (gastroesophageal reflux disease) Glaucoma Hearing loss Hernia History of MAC infection Hypoxia JESSA (mycobacterium avium-intracellulare) NICM (nonischemic cardiomyopathy) Paroxysmal atrial fibrillation Pure hypercholesterolemia Family History Family History Father No problems noted. Mother Medical history unknown Sister Diabetes Daughter In good health Son In good health Brother No problems noted. 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) Alcohol intake: unknown Patient Tobacco Use Status: Former Tobacco user Quit Date: 6 years ago e-Cigarette/Vaping Use: Never Used Second Hand Smoke Exposure: No Use of substances other than those prescribed or required for medical reasons: No Currently Displaying Signs/Symptoms of Drug Intoxication Withdrawal: No Advance Directives: Yes Advance Directives Information Provided: Yes Advance Directives on File: No Advance Directives Date on File: 07/12/21 Do you have thoughts of harming others: None Do you have a plan to hurt others: No Plan Recently lost weight without trying: No Nutrition Risks: No Nutritional Risk service: No Current occupational status: disabled Cognitive needs: No Hearing needs: Yes Vision needs: Yes Meds Allergies Allergy/AdvReac Type Severity Reaction Status Date / Time Penicillins [PENICILLINS] Allergy Intermediate PASSED Verified 01/17/22 06:11 OUT trazodone Allergy Intermediate tremors Verified 01/17/22 06:11 Active Medications: Current Medications Acetaminophen (Acetaminophen 325 Mg Tablet) 650 mg PO Q6H PRN PRN Reason: Pain, Mild (Pain Scale 1-3) Albuterol Sulfate (Albuterol Sulfate 90 Mcg 8 Gm Inhaler) 2 puff INHALE Q4H PRN PRN Reason: shortness of breath or wheezing Albuterol/Ipratropium (Albuterol/Iprat 2.5/0.5mg 3 Ml Ampul.Neb) 3 ml INHALE RQID PRN PRN Reason: for dyspnea Albuterol/Ipratropium (Albuterol/Iprat 2.5/0.5mg 3 Ml Ampul.Neb) 3 ml INHALE RQID [facility] Last Admin: 01/27/22 08:11 Dose: 3 ml Brimonidine Tartrate (Brimonidine Tartrate 0.2% Oph 5 Ml Bottle) 1 drop EYE-BOTH BID [facility] Last Admin: 01/26/22 20:19 Dose: 1 drop Carvedilol (Carvedilol 12.5 Mg Tablet) 12.5 mg PO BID [facility]; Protocol Last Admin: 01/26/22 20:19 Dose: 12.5 mg Docusate Sodium (Docusate Sodium 100 Mg Capsule) 100 mg PO BID [facility] Last Admin: 01/26/22 20:19 Dose: 100 mg Doxycycline Monohydrate (Doxycycline Monohydrate 100 Mg Capsule) 100 mg PO MoWeFr@0900 [facility] Last Admin: 01/25/22 08:11 Dose: 100 mg Finasteride (Finasteride 5 Mg Tablet) 5 mg PO DAILY [facility] Last Admin: 01/26/22 09:27 Dose: 5 mg Guaifenesin/Dextromethorphan (Guaifenesin Dm 100/10/5 Ml 5 Ml Syrup) 10 ml PO TID [facility] Last Admin: 01/26/22 20:19 Dose: 10 ml Latanoprost (Latanoprost 0.005 % Ophth Thalia 2.5 Ml Drops) 1 drop EYE-BOTH BEDTIME [facility] Last Admin: 01/26/22 20:20 Dose: 1 drop Melatonin (Melatonin 3 Mg Tablet) 3 mg PO BEDTIME PRN PRN Reason: Insomnia Methylprednisolone Sodium Succinate (Methylprednisolone Sod Succ 40 Mg/Ml Vial) 40 mg IVPUSH Q12H [facility] Last Admin: 01/26/22 23:44 Dose: 40 mg Mirabegron (Mirabegron 25 Mg Tab.Er.24h) 25 mg PO DAILY [facility] Last Admin: 01/26/22 09:25 Dose: 25 mg Omeprazole (Omeprazole 40 Mg Capsule.Dr) 40 mg PO DAILY@0630 [facility] Last Admin: 01/27/22 05:39 Dose: 40 mg Ondansetron HCl (Ondansetron Hcl 4 Mg/2 Ml Vial) 4 mg IVPUSH Q8H PRN PRN Reason: Nausea and Vomiting Pharmacy Consult (Consult Rx Perform Med Rec) 1 each MISCELLANE ONCE PRN PRN Reason: Consult order Polyethylene Glycol (Polyethylene Glycol 3350 17 Gm Powd.Pack) 17 gm PO DAILY PRN PRN Reason: constipation Last Admin: 01/24/22 08:32 Dose: 17 gm Pravastatin Sodium (Pravastatin Sodium 10 Mg Tablet) 10 mg PO DAILY [facility] Last Admin: 01/26/22 09:26 Dose: 10 mg Sacubitril/Valsartan (Sacubitril/Valsartan 1 Tab Tablet) 1 tab PO BID [facility]; Protocol Last Admin: 01/26/22 20:19 Dose: 1 tab Sodium Chloride (0.9 % Sodium Chloride Flush 3 Ml Syringe) 3 ml IVFLUSH QSHIFT [facility] Last Admin: 01/27/22 01:09 Dose: 3 ml Tamsulosin HCl (Tamsulosin Hcl 0.4 Mg Capsule) 0.4 mg PO DAILY [facility] Last Admin: 01/26/22 09:26 Dose: 0.4 mg Timolol Maleate (Timolol Maleate 0.5 % Oph Thalia 5 Ml Drbtl) 1 drop EYE-BOTH BID [facility] Last Admin: 01/26/22 20:24 Dose: 1 drop Home Medications Medication Instructions Recorded Confirmed Last Taken Type brimonidine 0.2 %-timolol 0.5 % 1 drp ophthalmic (eye) BID 03/08/21 01/23/22 03/07/21 History eye drops (Combigan) travoprost 0.004 % eye drops 1 drp ophthalmic (eye) BEDTIME 03/08/21 01/23/22 03/07/21 History doxycycline hyclate 100 mg tablet 1 tab PO MOWEFR 01/23/22 01/23/22 Unknown History mirabegron 25 mg tablet,extended 1 tab PO DAILY 01/23/22 01/23/22 Unknown History release 24 hr (Myrbetriq) prednisone 5 mg tablet 2 tab PO DAILY 01/23/22 01/23/22 Unknown History Physical Exam Vital Signs: Vital Signs: Last Vital Signs Temp 98.8 F 01/26/22 23:42 Pulse 74 01/27/22 08:11 Resp 20 01/27/22 08:11 BP 118/72 01/26/22 23:42 Pulse Ox 92 01/26/22 23:42 O2 Del Method 01/26/22 23:42 BMI result Body Mass Index 24.5 Const: General: no acute distress and well developed Orientation/consciousness: patient oriented x3 HEENT: Head: Yes normocephalic and Yes atraumatic Eyes: Conjunctivae: conjunctivae normal Neck: Neck: Yes normal visual inspection Chest: Chest palpation & inspection: normal inspection of the chest Resp: Effort & Inspection: normal respiratory effort Cardio: Rate: regular rate GI: Inspection: Yes normal to inspection Palpation (GI): Soft to palpation : Penis: normal penis Scrotum: scrotum normal Skin: General skin exam: no rashes or lesions noted Neuro: General: patient oriented x3 Psych: Appearance: grossly normal Affect: normal affect Results Labs Result diagrams: 01/27/22 15:04 01/27/22 05:41 Labs: Abnormal lab results 01/27/22 01/27/22 Range/Units 05:41 05:41 WBC 15.2 H (4.8-10.8) X10*3/uL Random Glucose 151 H (60-115) mg/dL Short CBC 01/27/22 Range/Units 05:41 WBC 15.2 H (4.8-10.8) X10*3/uL Hgb 14.0 (14.0-18.0) g/dl Hct 43.2 (42.0-52.0) % Plt Count 303 (160-400) X10*3/uL BMP 01/27/22 05:41 Sodium 137 Potassium 4.1 Chloride 101 Carbon Dioxide 26 BUN 16 Creatinine 0.71 Calcium 8.7 Urine 01/23/22 Range/Units 16:53 Urine Color Yellow Urine Appearance Cloudy Urine pH 8.5 (5.0-9.0) Ur Specific [place] 1.010 (1.005-1.025) Urine Protein Negative (Neg-Trace) mg/dL Urine Glucose (UA) Negative (Negative) mg/dL Collected: 01/23/22-UNK Status: COMP Req#: [id number] Received: 01/23/22 Source: [facility] Sp Desc: Urine swanson Subm Dr: Wilian Zelaya MD Ordered: Urine Culture Procedure Result Verified Site Urine Culture Final 01/26/22 Organism 1 Escherichia coli Quant > 100,000 cfu/mL ESBL Note: NOTE: Extended-Spectrum Beta-Lactamase enzyme present E coli M.I.C. RX --------- --- Ampicillin >=32 R Ceftriaxone >=64 R Ertapenem <=0.12 S Gentamicin <=1 S Levofloxacin >=8 R Nitrofurantoin <=16 S Trimethoprim/Sulfamethoxazole >=[address] scan report/results: report reviewed and image reviewed CT scan - pelvis: report reviewed and image reviewed Additional studies: Date of Service: 01/13/22 EXAMINATION: CT ABDOMEN AND PELVIS WITHOUT AND WITH CONTRAST? CLINICAL INFORMATION: Hematuria? COMPARISON: Previous CT of the abdomen and pelvis from 2015? FINDINGS: LUNG BASES: Severe bilateral lower lobe bronchiectasis and mucus plugging. There are larger nodular opacities seen in the left lower lobe questionable for bronchopneumonia. This appears significantly increased from 2015 exam. LIVER, GALLBLADDER, AND BILIARY TREE: The liver is normal in size, shape, and attenuation. No focal hepatic lesion or biliary ductal dilatation is present. The gallbladder is unremarkable with no evidence of radiopaque gallstones, gallbladder wall thickening, or obvious pericholecystic inflammatory changes.? PANCREAS: Unremarkable? SPLEEN: Unremarkable? ADRENAL GLANDS: Unremarkable? KIDNEYS AND URETERS: There is a horseshoe kidney. 1.5 cm peripelvic cysts in the right mid pole. 6 mm cortical cyst in the right lower pole. There is a left lower pole stone measuring 5 mm. There is a left mid to lower pole stone measuring 3 x 5 mm. No right stone seen. No hydronephrosis, ureteral dilatation or ureteral stone. Normal-appearing collecting systems. The left ureter is opacified with excreted contrast and is normal-appearing. The right ureter is not optimally opacified with excreted contrast. BLADDER: There is a Hermosillo catheter in the bladder. Bladder is not optimally distended. The prostate gland is enlarged. There is question of abnormal soft tissue at the base of the bladder, particularly on the left, versus enlarged prostate gland and mild diffuse bladder wall thickening. GASTROINTESTINAL TRACT: Diverticulosis of the colon. Left inguinal hernia containing proximal sigmoid colon. No evidence of obstruction. Normal appearing stomach, small bowel and appendix.? ABDOMINAL WALL: Left inguinal hernia containing fat and proximal sigmoid colon. No evidence of obstruction.? LYMPH NODES: Normal VASCULAR: Atherosclerotic disease. No aneurysm. PELVIC VISCERA: The prostate gland is enlarged measuring 5 by 5.4 cm in AP and transverse dimension. OSSEOUS STRUCTURES: Degenerative changes of the spine and hip joints. Stable sclerotic density measuring 1 x 2 cm in the right side of the pubic symphysis probably representing a bone island. CT/CT abdomen pelvis wo/w IV con IMPRESSION: 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. Left renal stones. Right renal cysts. Enlarged prostate gland that protrudes into the base. Question abnormal soft tissue at the base of the bladder particularly on the left versus enlarged prostate gland. Diverticulosis of the colon. Left inguinal hernia containing proximal sigmoid colon. No evidence of obstruction. Severe bronchiectasis and mucus plugging both lung bases, left greater than right. Assessment and Plan (1) Urinary retention: Status: Acute Stop myrbetriq (2) BPH loc w urin obs/LUTS: Status: Acute (3) Hematuria: Status: Acute previous cystoscopy with bladder biopsy, path benign, inflammatory tissue urine c/s ECOLI ESBL, active cystitis (4) Kidney stone on left side: Status: Acute (5) UTI (urinary tract infection): Status: Acute Escherichia coli Quant > 100,000 cfu/mL ESBL Note: NOTE: Extended-Spectrum Beta-Lactamase enzyme present Plan ertanepenam, Pt needs ID consultation D/c myrbetric on home meds cont flomax and proscar hermosillo changed to [address] Continuous Bladder irrigation Procedures Date of Service Date of Service: 01/27/22 Catheter Insertion (Urinary) Date of insertion: 01/27/22 Replacement of catheter present on admission: Yes Reason for placing: Other (hematuria) Antiseptic solution prep: Povidone-Iodine Topical anesthesia used: Yes Catheter type/location: 3-way Urethral Size (Danish): 20 Catheter balloon size (mL): 30 Catheter balloon amount: 30 Results: successfully catheterized-immediate flow Procedure performed: without complications Comment: Continuous bladder irrigation started with normal saline
[2022-01-27] MEDS: Doxycycline Monohydrate 100 MG CAPSULE PO (08:51)
[2022-01-27] MEDS: Pravastatin Sodium 10 MG TABLET PO (08:51)
[2022-01-27] MEDS: Docusate Sodium 100 MG CAPSULE PO ×2 (08:51→20:51)
[2022-01-27] MEDS: Tamsulosin HCL 0.4 MG CAPSULE PO (08:51)
[2022-01-27] MEDS: guaiFENesin DM 100/10/5 ML 5 ML SYRUP 10 ML PO ×3 (08:51→20:51)
[2022-01-27] MEDS: Sacubitril/Valsartan 24/26 1 TAB TABLET PO ×2 (08:52→20:51)
[2022-01-27] MEDS: Finasteride 5 MG TABLET PO (08:52)
[2022-01-27] MEDS: carvediloL 12.5 MG TABLET PO ×2 (08:52→20:51)
[2022-01-27] MEDS: Brimonidine Tartrate 0.2% Oph 5 ML BOTTLE 1 DROP EYE-BOTH ×2 (08:53→20:52)
[2022-01-27] MEDS: timoloL maleate 0.5 % Oph Sol 5 ML DRBTL 1 DROP EYE-BOTH ×2 (08:54→20:52)
[2022-01-27 09:40] LABS: Adenovirus PCR Not Detected (Not Detect.); Bordetella parapertussis PCR Not Detected (Not Detect.); Bordetella pertussis PCR Not Detected (Not Detect.); Chlamydia pneumoniae PCR Not Detected (Not Detect.); Coronavirus 229E PCR Not Detected (Not Detect.); Coronavirus HKU1 PCR Not Detected (Not Detect.); Coronavirus NL63 PCR Not Detected (Not Detect.); Coronavirus OC43 PCR Not Detected (Not Detect.); Human metapneumovirus PCR Not Detected (Not Detect.); Influenza A PCR Not Detected (Not Detect.); Influenza B PCR Not Detected (Not Detect.); Mycoplasma pneumoniae PCR Not Detected (Not Detect.); Parainfluenza 1 PCR Not Detected (Not Detect.); Parainfluenza 2 PCR Not Detected (Not Detect.); Parainfluenza 3 PCR Not Detected (Not Detect.); Parainfluenza 4 PCR Not Detected (Not Detect.); RSV PCR Not Detected (Not Detect.); Rhino/Enterovirus PCR Not Detected (Not Detect.); SARS-CoV-2 PCR Not Detected (Not Detect.)
[2022-01-27] MEDS: methylPREDNISolone Sod Succ 40 MG/ML VIAL IVPUSH ×2 (13:20→22:23)
[2022-01-27] MEDS: Nitrofurantoin Monohyd/M-Cryst 100 MG CAPSULE PO ×2 (13:20→22:23)
--- NOTE | 2022-01-27 14:04 | P.PNIM_ITS ---
Subjective Subjective Date of Service: 01/27/22 Interval History: feels better this morning no shortness of breath no cough oxygenation stable on room air, this morning patient noted to have hematuria in Schwarz bag, denies abdominal pain, no lightheadedness no dizziness, slept well no other acute issues, tolerating diet no nausea no vomiting. Review of Systems Review of Systems: Yes all other systems are reviewed and are negative Physical Exam Vital Signs: Vital Signs: Last Vital Signs Temp 97.5 F 01/27/22 08:00 Pulse 74 01/27/22 11:44 Resp 18 01/27/22 11:44 BP 137/72 01/27/22 08:00 Pulse Ox 94 01/27/22 08:00 O2 Del Method 01/27/22 08:00 BMI result Body Mass Index 24.5 Const: Other: General awake alert x3 in no acute distress.? Anicteric sclera Neck? supple no JVD. CVS? regular rate rhythm, Respiratory lungs coarse breath sound, no respiratory distress, no wheeze, no rhonchi. Gastrointestinal abdomen soft, nontender, bowel sounds audible, no guarding , no rigidity. Extremities no edema. Neuro nonfocal Skin no rash Psych appropriate affect Schwarz bag to left leg with hematuria Objective Data Active Medications Acetaminophen (Acetaminophen 325 Mg Tablet) 650 mg PO Q6H PRN PRN Reason: Pain, Mild (Pain Scale 1-3) Albuterol Sulfate (Albuterol Sulfate 90 Mcg 8 Gm Inhaler) 2 puff INHALE Q4H PRN PRN Reason: shortness of breath or wheezing Albuterol/Ipratropium (Albuterol/Iprat 2.5/0.5mg 3 Ml Ampul.Neb) 3 ml INHALE RQID PRN PRN Reason: for dyspnea Albuterol/Ipratropium (Albuterol/Iprat 2.5/0.5mg 3 Ml Ampul.Neb) 3 ml INHALE RQID [facility] Last Admin: 01/27/22 11:39 Dose: 3 ml Documented By: TAYLOR Brimonidine Tartrate (Brimonidine Tartrate 0.2% Oph 5 Ml Bottle) 1 drop EYE- BOTH BID [facility] Last Admin: 01/27/22 08:53 Dose: 1 drop Documented By: JOHANNA Carvedilol (Carvedilol 12.5 Mg Tablet) 12.5 mg PO BID [facility]; Protocol Last Admin: 01/27/22 08:52 Dose: 12.5 mg Documented By: JOHANNA Docusate Sodium (Docusate Sodium 100 Mg Capsule) 100 mg PO BID [facility] Last Admin: 01/27/22 08:51 Dose: 100 mg Documented By: JOHANNA Doxycycline Monohydrate (Doxycycline Monohydrate 100 Mg Capsule) 100 mg PO MoWeFr@0900 [facility] Last Admin: 01/27/22 08:51 Dose: 100 mg Documented By: JOHANNA Finasteride (Finasteride 5 Mg Tablet) 5 mg PO DAILY [facility] Last Admin: 01/27/22 08:52 Dose: 5 mg Documented By: JOHANNA Guaifenesin/Dextromethorphan (Guaifenesin Dm 100/10/5 Ml 5 Ml Syrup) 10 ml PO TID [facility] Last Admin: 01/27/22 08:51 Dose: 10 ml Documented By: JOHANNA Latanoprost (Latanoprost 0.005 % Ophth Thalia 2.5 Ml Drops) 1 drop EYE-BOTH BEDTIME [facility] Last Admin: 01/26/22 20:20 Dose: 1 drop Documented By: ROBERT Melatonin (Melatonin 3 Mg Tablet) 3 mg PO BEDTIME PRN PRN Reason: Insomnia Methylprednisolone Sodium Succinate (Methylprednisolone Sod Succ 40 Mg/Ml Vial) 40 mg IVPUSH Q12H [facility] Last Admin: 01/27/22 13:20 Dose: 40 mg Documented By: JOHANNA Nitrofurantoin Macrocrystals (Nitrofurantoin Monohyd/M-Cryst 100 Mg Capsule) 100 mg PO Q12H [facility] Last Admin: 01/27/22 13:20 Dose: 100 mg Documented By: JOHANNA Omeprazole (Omeprazole 40 Mg Capsule.Dr) 40 mg PO DAILY@0630 [facility] Last Admin: 01/27/22 05:39 Dose: 40 mg Documented By: HARIS Ondansetron HCl (Ondansetron Hcl 4 Mg/2 Ml Vial) 4 mg IVPUSH Q8H PRN PRN Reason: Nausea and Vomiting Pharmacy Consult (Consult Rx Perform Med Rec) 1 each MISCELLANE ONCE PRN PRN Reason: Consult order Polyethylene Glycol (Polyethylene Glycol 3350 17 Gm Powd.Pack) 17 gm PO DAILY PRN PRN Reason: constipation Last Admin: 01/24/22 08:32 Dose: 17 gm Documented By: RENETTA Pravastatin Sodium (Pravastatin Sodium 10 Mg Tablet) 10 mg PO DAILY [facility] Last Admin: 01/27/22 08:51 Dose: 10 mg Documented By: JOHANNA Sacubitril/Valsartan (Sacubitril/Valsartan 1 Tab Tablet) 1 tab PO BID [facility]; Protocol Last Admin: 01/27/22 08:52 Dose: 1 tab Documented By: JOHANNA Sodium Chloride (0.9 % Sodium Chloride Flush 3 Ml Syringe) 3 ml IVFLUSH QSHIFT [facility] Last Admin: 01/27/22 08:52 Dose: 3 ml Documented By: JOHANNA Tamsulosin HCl (Tamsulosin Hcl 0.4 Mg Capsule) 0.4 mg PO DAILY [facility] Last Admin: 01/27/22 08:51 Dose: 0.4 mg Documented By: JOHANNA Timolol Maleate (Timolol Maleate 0.5 % Oph Thalia 5 Ml Drbtl) 1 drop EYE-BOTH BID [facility] Last Admin: 01/27/22 08:54 Dose: 1 drop Documented By: JOHANNA Labs CBC & Chem 7: 01/27/22 05:41 01/27/22 05:41 Labs: Laboratory Results - last 24 hr 01/26/22 01/27/22 01/27/22 15:30 05:41 05:41 MCV 85.7 MCH 27.8 MCHC 32.4 RDW 13.3 Plt Count 303 MPV 10.0 Absolute Nucleated RBC 0.000 Nucleated RBC % (auto) 0.0 Anion Gap 14 Estim Creat Clear Calc 76.1 Estimated GFR > 60 Random Glucose 151 H Calcium 8.7 Respiratory Panel Feldman See Note Adenovirus (Rapid PCR) Not Detected B.pert (TEM-PCR) Not Detected B.parapertussis DNA PCR Not Detected C. pneumoniae DNA (PCR) Not Detected Coronavirus OC43 (PCR) Not Detected Coronavirus HKU1 (PCR) Not Detected Coronavirus 229E (PCR) Not Detected Coronavirus NL63 (PCR) Not Detected Human Metapneumovir PCR Not Detected Influenza A (RT-PCR) Not Detected Influenza B (RT-PCR) Not Detected M. pneumoniae (PCR) Not Detected Parainfluenza 1 (PCR) Not Detected Parainfluenza 2 (PCR) Not Detected Parainfluenza 3 (PCR) Not Detected Parainfluenza 4 (PCR) Not Detected RSV (PCR) Not Detected Entero/Rhino (PCR) Not Detected SARS-CoV-2 RNA (RT-PCR) Not Detected Assessment and Plan (1) COPD (chronic obstructive pulmonary disease): Status: Acute (2) Essential hypertension: Status: Acute Plan 81-year-old gentleman with past medical history significant for COPD/bron hiectasis not on home oxygen, discharged from [facility] last month after being treated for severe sepsis due to ESBL E coli pneumonia, acute respiratory failure with hypoxia, new onset atrial fibrillation with RVR,, urinary retention patient was discharged home on Eliquis however after discharge patient developed hematuria and subsequently seen by Urology underwent cystoscopy and transurethral resection of bladder lesion and was discharged home on indwelling Schwarz catheter patient presented to [facility] today due to shortness of breath cough, in the ER patient noted to be hypoxic therefore being admitted to [facility] for acute hypoxic respiratory failure due to COPD exacerbation. Acute hypoxic respiratory failure due to COPD exacerbation with underlying bronchiectases and chronic JESSA feeling better this morning, no shortness of breath, stable oxygenation on ro om air will transition to by mouth steroids with slow taper continue updraft q.i.d. and as needed, respiratory panel negative patient has chronic bilateral patchy fibrotic opacities with underlying bronchiectases with on and off symptoms of shortness of breath on doxycycline 3 times per week and prednisone 10 mg daily to control chronic dyspnea Urinary retention status post cystoscopy, transurethral resection of bladder lesion on 01/17 by urology, Bladder biopsy negative for malignancy, continue Schwarz catheter hematuria noted to have hematuria this morning, as above underwent cystoscopy, biopsy for bladder lesion was negative, consulted Urology they recommended to treat ESBL positive E coli UTI case discussed with infectious disease again today she recommended nitrofurantoin 100 mg twice daily for total 10 days, patient has received 2 days of IV ertapenem that was discontinued by ID, since patient had no urinary symptoms and felt to have colonization in urine CBI as per Urology follow CBC hold anticoagulation Paroxysmal Atrial fibrillation with RVR now in normal sinus rhythm continue Coreg and dc Eliquis due to hematuria Nonischemic cardiomyopathy continue Coreg and Entresto GERD continue PPI Code status full code DVT prophylaxis add compression boots ?patient will need continued inpatient hospitalization for treatment of acute hematuria requiring CBI Quality Stroke Does the patient have a stroke diagnosis?: No VTE Prior VTE?: No VTE Risk Level:: Medical - moderate - high VTE Device Contraindication: Treatment Not Indicated VTE Drug Contraindication: N/A - Med Ordered
[2022-01-27 15:33] LABS: Hematocrit 39.6 % (42.0-52.0); Mean Corpuscular HGB Conc 32.8 g/dl (31.0-36.0); Mean Corpuscular Hemoglobin 27.9 pg (27.0-33.0); Mean Platelet Volume 9.6 fL (9.4-12.4); Platelet Count 267 X10*3/uL (160-400); Red Blood Count 4.66 X10*6/uL (4.60-5.80); Red Cell Distribution Width 13.3 % (11.0-16.0); White Blood Count 18.8 X10*3/uL (4.8-10.8)
[2022-01-27] MEDS: Latanoprost 0.005 % Ophth Sol 2.5 ML DROPS 1 DROP EYE-BOTH (20:52)
[2022-01-28] VITALS (8 sets, daily range): BP systolic 118–146; BP diastolic 59–74; PULSE 56–76; RESP 14–18; TEMP 35.8–37.1; O2SAT 93–96
[2022-01-28] MEDS: Omeprazole 40 MG CAPSULE.DR PO (05:31)
[2022-01-28] MEDS: Albuterol/Iprat 2.5/0.5MG 3 ML AMPUL.NEB INHALE ×4 (07:54→21:33)
[2022-01-28] MEDS: Finasteride 5 MG TABLET PO (08:59)
[2022-01-28] MEDS: guaiFENesin DM 100/10/5 ML 5 ML SYRUP 10 ML PO ×3 (08:59→21:11)
[2022-01-28] MEDS: Docusate Sodium 100 MG CAPSULE PO ×2 (08:59→21:11)
[2022-01-28] MEDS: Brimonidine Tartrate 0.2% Oph 5 ML BOTTLE 1 DROP EYE-BOTH ×2 (08:59→21:13)
[2022-01-28] MEDS: Sacubitril/Valsartan 24/26 1 TAB TABLET PO ×2 (09:00→21:10)
[2022-01-28] MEDS: Pravastatin Sodium 10 MG TABLET PO (09:00)
[2022-01-28] MEDS: 0.9 % Sodium Chloride Flush 3 ML SYRINGE IVFLUSH ×2 (09:00→15:39)
[2022-01-28] MEDS: carvediloL 12.5 MG TABLET PO ×2 (09:00→21:10)
[2022-01-28] MEDS: timoloL maleate 0.5 % Oph Sol 5 ML DRBTL 1 DROP EYE-BOTH ×2 (09:00→21:14)
[2022-01-28] MEDS: Tamsulosin HCL 0.4 MG CAPSULE PO (09:00)
[2022-01-28] MEDS: methylPREDNISolone Sod Succ 40 MG/ML VIAL IVPUSH (11:59)
[2022-01-28] MEDS: Nitrofurantoin Monohyd/M-Cryst 100 MG CAPSULE PO (11:59)
--- NOTE | 2022-01-28 12:01 | P.PNIM_ITS ---
Subjective Subjective Date of Service: 01/28/22 Interval History: feeling better this morning denies shortness of breath, no chest pain, oxygenation stable on room air, hematuria resolved with CBI currently clear urine in Schwarz back, denies urinary symptoms of urgency frequency, tolerating diet with no nausea, no vomiting, no abdominal pain, no diarrhea. Review of Systems Review of Systems: Yes all other systems are reviewed and are negative Physical Exam Vital Signs: Vital Signs: Last Vital Signs Temp 96.5 F L 01/28/22 08:00 Pulse 76 01/28/22 11:37 Resp 18 01/28/22 11:37 BP 141/74 H 01/28/22 08:00 Pulse Ox 96 01/28/22 08:00 O2 Del Method 01/28/22 08:00 BMI result Body Mass Index 24.5 Const: Other: General awake alert x3 in no acute distress.? Anicteric sclera Neck? supple no JVD. CVS? regular rate rhythm, Respiratory lungs? coarse breath sound, no respiratory distress, no wheeze, no rhonchi. Gastrointestinal abdomen soft, nontender, bowel sounds audible, no guarding , no rigidity. Extremities no edema. Neuro nonfocal Skin no rash Psych appropriate affect Schwarz bag clear urine Objective Data Active Medications Acetaminophen (Acetaminophen 325 Mg Tablet) 650 mg PO Q6H PRN PRN Reason: Pain, Mild (Pain Scale 1-3) Albuterol Sulfate (Albuterol Sulfate 90 Mcg 8 Gm Inhaler) 2 puff INHALE Q4H PRN PRN Reason: shortness of breath or wheezing Albuterol/Ipratropium (Albuterol/Iprat 2.5/0.5mg 3 Ml Ampul.Neb) 3 ml INHALE RQID PRN PRN Reason: for dyspnea Albuterol/Ipratropium (Albuterol/Iprat 2.5/0.5mg 3 Ml Ampul.Neb) 3 ml INHALE RQID [facility] Last Admin: 01/28/22 11:36 Dose: 3 ml Documented By: TYREE Brimonidine Tartrate (Brimonidine Tartrate 0.2% Oph 5 Ml Bottle) 1 drop EYE- BOTH BID [facility] Last Admin: 01/28/22 08:59 Dose: 1 drop Documented By: ABIDA Carvedilol (Carvedilol 12.5 Mg Tablet) 12.5 mg PO BID [facility]; Protocol Last Admin: 01/28/22 09:00 Dose: 12.5 mg Documented By: ABIDA Docusate Sodium (Docusate Sodium 100 Mg Capsule) 100 mg PO BID [facility] Last Admin: 01/28/22 08:59 Dose: 100 mg Documented By: ABIDA Doxycycline Monohydrate (Doxycycline Monohydrate 100 Mg Capsule) 100 mg PO MoWeFr@0900 [facility] Last Admin: 01/27/22 08:51 Dose: 100 mg Documented By: JOHANNA Finasteride (Finasteride 5 Mg Tablet) 5 mg PO DAILY [facility] Last Admin: 01/28/22 08:59 Dose: 5 mg Documented By: ABIDA Guaifenesin/Dextromethorphan (Guaifenesin Dm 100/10/5 Ml 5 Ml Syrup) 10 ml PO TID [facility] Last Admin: 01/28/22 08:59 Dose: 10 ml Documented By: ABIDA Latanoprost (Latanoprost 0.005 % Ophth Thalia 2.5 Ml Drops) 1 drop EYE-BOTH BEDTIME [facility] Last Admin: 01/27/22 20:52 Dose: 1 drop Documented By: ISATU Melatonin (Melatonin 3 Mg Tablet) 3 mg PO BEDTIME PRN PRN Reason: Insomnia Methylprednisolone Sodium Succinate (Methylprednisolone Sod Succ 40 Mg/Ml Vial) 40 mg IVPUSH Q12H [facility] Last Admin: 01/28/22 11:59 Dose: 40 mg Documented By: ABIDA Nitrofurantoin Macrocrystals (Nitrofurantoin Monohyd/M-Cryst 100 Mg Capsule) 100 mg PO Q12H [facility] Last Admin: 01/28/22 11:59 Dose: 100 mg Documented By: ABIDA Omeprazole (Omeprazole 40 Mg Capsule.Dr) 40 mg PO DAILY@0630 [facility] Last Admin: 01/28/22 05:31 Dose: 40 mg Documented By: ISATU Ondansetron HCl (Ondansetron Hcl 4 Mg/2 Ml Vial) 4 mg IVPUSH Q8H PRN PRN Reason: Nausea and Vomiting Pharmacy Consult (Consult Rx Perform Med Rec) 1 each MISCELLANE ONCE PRN PRN Reason: Consult order Polyethylene Glycol (Polyethylene Glycol 3350 17 Gm Powd.Pack) 17 gm PO DAILY PRN PRN Reason: constipation Last Admin: 01/24/22 08:32 Dose: 17 gm Documented By: RENETTA Pravastatin Sodium (Pravastatin Sodium 10 Mg Tablet) 10 mg PO DAILY [facility] Last Admin: 01/28/22 09:00 Dose: 10 mg Documented By: ABIDA Sacubitril/Valsartan (Sacubitril/Valsartan 1 Tab Tablet) 1 tab PO BID [facility]; Protocol Last Admin: 01/28/22 09:00 Dose: 1 tab Documented By: ABIDA Sodium Chloride (0.9 % Sodium Chloride Flush 3 Ml Syringe) 3 ml IVFLUSH QSHIFT [facility] Last Admin: 01/28/22 09:00 Dose: 3 ml Documented By: ABIDA Tamsulosin HCl (Tamsulosin Hcl 0.4 Mg Capsule) 0.4 mg PO DAILY [facility] Last Admin: 01/28/22 09:00 Dose: 0.4 mg Documented By: ABIDA Timolol Maleate (Timolol Maleate 0.5 % Oph Thalia 5 Ml Drbtl) 1 drop EYE-BOTH BID [facility] Last Admin: 01/28/22 09:00 Dose: 1 drop Documented By: ABIDA Labs CBC & Chem 7: 01/27/22 15:04 01/27/22 05:41 Labs: Laboratory Results - last 24 hr 01/27/22 15:04 MCV 85.0 MCH 27.9 MCHC 32.8 RDW 13.3 Plt Count 267 MPV 9.6 Absolute Nucleated RBC 0.000 Nucleated RBC % (auto) 0.0 Assessment and Plan (1) COPD (chronic obstructive pulmonary disease): Status: Acute (2) Essential hypertension: Status: Acute Plan 81-year-old gentleman with past medical history significant for COPD/bronchiectasis not on home oxygen, discharged from [facility] last month after being treated for severe sepsis due to ESBL E coli pneumonia, acute respiratory failure with hypoxia, new onset atrial fibrillation with RVR,, urinary retention patient was discharged home on Eliquis however after discharge patient developed hematuria and subsequently seen by Urology underwent cystosc opy and transurethral resection of bladder lesion and was discharged home on indwelling Schwarz catheter patient presented to [facility] today due to shortness of breath cough, in the ER patient noted to be hypoxic therefore being admitted to [facility] for acute hypoxic respiratory failure due to COPD exacerbation. Acute hypoxic respiratory failure due to COPD exacerbation with underlying bronchiectases and chronic JESSA feeling better , no shortness of breath, stable oxygenation on room air will transition to by mouth steroids prednisone 40 mg daily, DC IV steroids, continue updraft q.i.d. and as needed, respiratory panel negative patient has chronic bilateral patchy fibrotic opacities with underlying bronchiectases with on and off symptoms of shortness of breath on doxycycline 3 times per week and prednisone 10 mg daily to control chronic dyspnea Urinary retention status post cystoscopy, transurethral resection of bladder lesion on 01/17 by urology, Bladder biopsy negative for malignancy, continue Schwarz catheter hematuria noted to have hematuria this morning, as above underwent cystoscopy, biopsy for bladder lesion was negative, consulted Urology they recommended to treat ESBL positive E coli UTI case discussed with infectious disease she recommended nitrofurantoin 100 mg twice daily for total 10 days, patient has received 2 days of IV ertapenem that was discontinued by ID, since patient had no urinary symptoms and felt to have colonization in urine patient urine cleared this morning with CBI, will clamp CBI for 3-4 hours no bleeding will DC CBI and continue Schwarz catheter, hold anticoagulation, hematocrit stable no need for transfusion Paroxysmal Atrial fibrillation with RVR now in normal sinus rhythm continue Coreg and dc Eliquis due to hematuria Nonischemic cardiomyopathy continue Coreg and Entresto GERD continue PPI Code status full code DVT prophylaxis add compression boots patient will need continued inpatient hospitalization for treatment of acute hematuria requiring CBI and for acute hypoxic respiratory failure. Quality Stroke Does the patient have a stroke diagnosis?: No VTE Prior VTE?: No VTE Risk Level:: Medical - moderate - high VTE Device Contraindication: Treatment Not Indicated VTE Drug Contraindication: N/A - Med Ordered
[2022-01-28] MEDS: Latanoprost 0.005 % Ophth Sol 2.5 ML DROPS 1 DROP EYE-BOTH (21:13)
[2022-01-29] MEDS: 0.9 % Sodium Chloride Flush 3 ML SYRINGE IVFLUSH ×2 (00:30→08:33)
[2022-01-29] MEDS: Nitrofurantoin Monohyd/M-Cryst 100 MG CAPSULE PO (00:31)
[2022-01-29] MEDS: Omeprazole 40 MG CAPSULE.DR PO (06:34)
[2022-01-29 08:00] VITALS: BP 151/71; PULSE 75; RESP 20; TEMP 37.2; O2SAT 94
[2022-01-29] MEDS: Albuterol/Iprat 2.5/0.5MG 3 ML AMPUL.NEB INHALE ×2 (08:11→12:12)
[2022-01-29 08:12] VITALS: PULSE 75; RESP 18; O2SAT 94
[2022-01-29] MEDS: Finasteride 5 MG TABLET PO (08:32)
[2022-01-29] MEDS: Sacubitril/Valsartan 24/26 1 TAB TABLET PO (08:32)
[2022-01-29] MEDS: Tamsulosin HCL 0.4 MG CAPSULE PO (08:32)
[2022-01-29] MEDS: predniSONE 20 MG TABLET 40 MG PO (08:32)
[2022-01-29] MEDS: Docusate Sodium 100 MG CAPSULE PO (08:32)
[2022-01-29] MEDS: Brimonidine Tartrate 0.2% Oph 5 ML BOTTLE 1 DROP EYE-BOTH (08:33)
[2022-01-29] MEDS: timoloL maleate 0.5 % Oph Sol 5 ML DRBTL 1 DROP EYE-BOTH (08:33)
[2022-01-29] MEDS: carvediloL 12.5 MG TABLET PO (08:33)
[2022-01-29] MEDS: Pravastatin Sodium 10 MG TABLET PO (08:33)
--- NOTE | 2022-01-29 09:00 | PM.DS ---
DS: Providers Provider Date of Service: 01/29/22 Date of admission: 01/23/22 16:21 Primary care physician: Olga Calzada MD Consults: 01/24/22 11:17 Consult to Infectious Diseases Routine Consulting Provider: Edwina Cordero Reason for consultation: vre Has provider been notified: No 01/27/22 07:51 Consult to Urology Routine Consulting Provider: Vinny Zuluaga Reason for consultation: hematuria Has provider been notified: No DS: Diagnosis Discharge Diagnosis (1) COPD (chronic obstructive pulmonary disease): Status: Acute (2) Essential hypertension: Status: Acute DS: Summary Hospital Course Hospital Course: Date of Service: 01/23/22 Attending physician on admission: Wilian Zelaya Chief Complaint: Shortness of breath 81-year-old gentleman with past medical history significant for COPD, not on home oxygen, history of bronchiectasis, JESSA infection status post treatment history of ESBL E coli in the sputum, history of recent VRE infection was treated in December with acute respiratory failure and hypoxia due to presumed E coli pneumonia and acute bronchiectases, hospital course was complicated due to new onset atrial fibrillation with rapid ventricular rate, felt to be related to acute respiratory infection,Due to multiple cardiac risk factors patient was placed on Eliquis, patient subsequently developed acute urine retention, Flomax was initiated and patient was discharged with a Schwarz catheter and also on IV Invanz, however patient developed gross hematuria with clots, patient came to the emergency room Eliquis was stopped, patient noted to have a UTI is was discharged home on Ceftin however the urine culture grew VRE, patient was called back to hospital repeat UA was benign therefore no anti biotic was adjusted, patient was discharged home and was seen by Urology as outpatient and subsequently underwent cystoscopy with transurethral resection of bladder lesion on 01/17/2022 and was discharged home on indwelling Schwarz catheter according to patient he was doing fine up until 2 days ago when he developed shortness of breath cough productive of swanson phlegm associated with chest tightness patient denies any sick contacts, no recent travels, he denies associated fever, chills, rigors ,he denies any dizziness, he denies nausea, vomiting ,abdominal pain ,or diarrhea, he noted foul odor to his urine, and requesting for a urine check in the emergency room a chest x-ray showed no acute abnormality COVID test is negative Will he has elevated WBC count likely due to being on steroids otherwise electrolytes and blood sugars are within normal range, lactic acid is normal, 2 set of blood cultures were drawn patient treated with IV steroids, nebulizer treatment but he was noted to have finger oximetry 88% with ambulation therefore he is being admitted to [facility] with a diagnosis of COPD exacerbation with acute hypoxic resp failure. hospital course 81-year-old gentleman with past medical history significant for COPD/bronchiectasis not on home oxygen, discharged from [facility] last month after being treated for severe sepsis due to ESBL E coli pneumonia, acute respiratory failure with hypoxia, new onset atrial fibrillation with RVR,, urinary retention patient was discharged home on Eliquis however after discharge patient developed hematuria and subsequently seen by Urology underwent cystoscopy and transurethral resection of bladder lesion and was discharged home on indwelling Schwarz catheter patient presented to [facility] today due to shortness of breath cough, in the ER patient noted to be hypoxic therefore being admitted to [facility] for acute hypoxic respiratory failure due to COPD exacerbation. Acute hypoxic respiratory failure due to COPD exacerbation with underlying bronchiectases and chronic JESSA, patient treated with IV steroids, schedule updraft treatment and was continued on home dose of doxycycline patient has chronic bilateral patchy fibrotic opacities with underlying bronchiectases with on and off symptoms of shortness of breath, being followed closely by judicial administrative assistant, patient responded well to above treatment therefore being discharged on prednisone 40 mg tapering dose and recommended to continue home inhalers and close outpatient follow-up with primary judicial administrative assistant Urinary retention and hematuria he isstatus post cystoscopy, transurethral resection of bladder lesion on 01/17 by urology, Bladder biopsy negative for malignancy, patient noted to have hematuria few days after admission, seen by Urology CBI initiated urine cleared, Urology recommended to treat UTI with culture positive for E coli ESBL positive , id felt patient has chronic colonization, patient received 2 days of IV ertapenem and antibiotic transition to by mouth nitrofurantoin 100 mg twice daily for total 10 days hematuria has resolved patient is being discharged home on Schwarz catheter and recommended outpatient follow-up with Urology to discuss about further treatment and when to resume Eliquis ? Paroxysmal Atrial fibrillation with RVR now in normal sinus rhythm continue Coreg and stopped Eliquis? due to hematuria, recommend follow-up with Cardiology Nonischemic cardiomyopathy continue Coreg and Entresto GERD continue PPI Time Spent with Patient Time attestation: Total time spent providing and/or coordinating discharge services: Discharge coordination time: Greater than 30 minutes Quality: Safe Use of Opioids Does Pt have an Active Cancer Diagnosis on the Problem List?: No Quality: Stroke Does the patient have a stroke diagnosis?: No Physical Exam Vital Signs: Vital Signs: Last Vital Signs Temp 98.9 F 01/29/22 08:00 Pulse 75 01/29/22 08:12 Resp 18 01/29/22 08:12 BP 151/71 H 01/29/22 08:00 Pulse Ox 94 01/29/22 08:00 O2 Del Method 01/29/22 08:00 BMI result Body Mass Index 24.5 Const: Other: General awake alert x3 in no acute distress.? Anicteric sclera Neck? supple no JVD. CVS? regular rate rhythm, Respiratory lungs? coarse breath sound, no respiratory distress, no wheeze, no rhonchi. Gastrointestinal abdomen soft, nontender, bowel sounds audible, no guarding , no rigidity. Extremities no edema. Neuro nonfocal Skin no rash Psych appropriate affect Schwarz bag? clear urine DS: Data Data Completed and Pending Completed studies during hospitalization [Text1]: Procedures Insertion of Infusion Device into Right Cephalic Vein, Percutaneous Approach (12/07/21) Insertion of Infusion Device into Superior Vena Cava, Percutaneous Approach (12/07/21) Ultrasonography of Superior Vena Cava, Guidance (12/07/21) Discharge Plan Discharge Anticipated Discharge Date/Time: 01/29/22 08:52 Patient Disposition: Home, Self-Care Discharge Diagnosis: Acute hypoxic respiratory failure due to COPD exacerbation hematuria UTI Referrals: Physician,Unknown J [Physician] - 1 Week Discharge Medications: New nitrofurantoin monohyd/m-cryst 100 mg Capsule 100 mg PO Q12H Qty: 16 0RF prednisone 20 mg tablet 20 mg PO DAILY Qty: 12 0RF Rx Instructions: take prednisone 20 mg 2 tablets daily for 4 days, then prednisone 20 mg 1 tablet daily for 4 days then continue home dose of prednisone 10 mg daily Continued omeprazole 40 mg capsule,delayed release(DR/EC) 40 mg PO DAILY Qty: 90 3RF Entresto 24-26 mg tablet 1 tab PO BID 90 Days Qty: 180 3RF ipratropium-albuterol 0.5 mg-3 mg(2.5 mg base)/3 mL solution for nebulization 3 ml inhalation QID PRN (Reason: for dyspnea) Qty: 180 0RF albuterol sulfate 90 mcg/actuation HFA aerosol inhaler 2 puff inhalation Q4H PRN (Reason: shortness of breath or wheezing) Qty: 8.5 4RF lovastatin 10 mg tablet 10 mg PO DAILY 90 Days Qty: 90 3RF tamsulosin 0.4 mg capsule 0.4 mg PO DAILY Qty: 30 0RF carvedilol 12.5 mg tablet 12.5 mg PO BID Qty: 60 0RF Protocol: Hold for SBP/HR < HOLD for SBP < : 90 HOLD for HR < : 60 docusate sodium 100 mg capsule 100 mg PO BID Qty: 60 0RF polyethylene glycol 3350 17 gram powder in packet 17 g PO DAILY PRN (Reason: constipation) Qty: 30 0RF travoprost 0.004 % drops 1 drp ophthalmic (eye) BEDTIME brimonidine-timolol [Combigan] 0.2-0.5 % drops 1 drp ophthalmic (eye) BID Myrbetriq 25 mg tablet extended release 24 hr 1 tab PO DAILY doxycycline hyclate 100 mg tablet 1 tab PO MOWEFR finasteride [Proscar] 5 mg tablet 5 mg PO DAILY 90 Days Qty: 90 3RF Held prednisone 5 mg tablet 2 tab PO DAILY Hold Instructions: Resume on 02/06/22. Discontinued Eliquis 5 mg tablet 5 mg PO BID Qty: 60 0RF Hold Instructions: Resume on 01/23/22. Discharge Orders: Discharge Order (Routine); Ordered 01/29/22 Ordered By: Wilian Zelaya Diet: Advance to usual diet Activity on Discharge: As tolerated Stand Alone Forms: Patient Portal Discharge page Care Plan Goals: hematuria resolved stop Eliquis, follow-up with Urology in next 7-10 days and discuss resuming Eliquis respiratory failure resolved take prednisone 40 mg daily for 4 days followed by prednisone 20 mg daily for 4 days and then continue 10 mg by mouth daily take nitrofurantoin 100 mg 1 tablet twice daily for 8 more days Health Concerns: stop Eliquis continue all home medication as before Plan of Treatment: outpatient follow-up with Urology and with judicial administrative assistant call to make appointment follow-up with cardiology, discuss use of Eliquis with 2 prior episodes of hematuria Assessment: as above
[2022-01-29] MEDS: guaiFENesin DM 100/10/5 ML 5 ML SYRUP 10 ML PO (10:14)
--- NOTE | 2022-01-29 11:05 | MHC.CM.PN ---
PT TO DC HOME TODAY WITH RESUMPTION OF HIS [facility] [facility] FAMILY TO TRANSPORT
[2022-01-29 11:14] VITALS: BP 100/54; PULSE 73; RESP 20; TEMP 36.8; O2SAT 91
[2022-01-29 12:13] VITALS: PULSE 73; RESP 18; O2SAT 91
== END 2022-01-29 14:49 | disposition home or self-care (01) | DRG 190 ==
LOC: HO.ED 15:46 → HO.EDOVER 16:29 → HO.S3 16:41
PROVIDERS: Emergency Medicine; Admitting Provider Hospitalist; Emergency Provider Emergency Medicine Emergency Medical Services; PCP Internal Medicine; Visit Provider Hospitalist
DX: J47.1 Bronchiectasis with (acute) exacerbation (principal); J96.01 Acute respiratory failure with hypoxia; I42.8 Other cardiomyopathies; N39.0 Urinary tract infection, site not specified; Z16.12 Extended spectrum beta lactamase (ESBL) resistance; I10 Essential (primary) hypertension; I48.0 Paroxysmal atrial fibrillation; K21.9 Gastro-esophageal reflux disease without esophagitis; N40.1 Benign prostatic hyperplasia with lower urinary tract symptoms; R31.9 Hematuria, unspecified; B96.20 Unspecified Escherichia coli [E. coli] as the cause of diseases classified elsewhere; R33.8 Other retention of urine; Z20.822 Contact with and (suspected) exposure to COVID-19; Z87.891 Personal history of nicotine dependence; Z88.0 Allergy status to penicillin; Z88.8 Allergy status to other drugs, medicaments and biological substances; Z79.899 Other long term (current) drug therapy
CPT/HCPCS: 36415; 71045; 71250; 80048; 80076; 81001; 81003; 82803; 83605; 83880; 84484; 85025; 85027; 85610; 87040; 87086; 87088; 87186; 87633; 87635; 93005; 94640; 94664; 99285; C1758; J1335; J1650; J2020; J2920; J2930; J3475

== ENCOUNTER 2022-01-31 06:04 | Inpatient (IN) | payer MEDICARE, MEDICAID, SELFPAY ==
[2022-01-31] VITALS (11 sets, daily range): BP systolic 112–146; BP diastolic 53–73; PULSE 77–89; RESP 16–30; TEMP 37.2–37.7; O2SAT 91–97; BMI 26.7
--- NOTE | ~2022-01-31 | XR_ITS ---
EXAMINATION: XR CHEST CLINICAL INFORMATION: Short of breath COMPARISON: 03/25/2021 TECHNIQUE: Frontal view of the chest was obtained. FINDINGS: The lungs are well expanded. Diffuse opacification throughout both lungs are similar to previous. No pleural effusion or pneumothorax. The cardiomediastinal silhouette is normal in size with a tortuous aorta. XR/XR chest 1V IMPRESSION: Similar appearance of diffuse bilateral airspace opacities. This is likely chronic given the similarity to previous imaging.
--- NOTE | ~2022-01-31 | CT_ITS ---
EXAMINATION: CT CHEST WITHOUT CONTRAST CLINICAL INFORMATION: Pneumonia COMPARISON: Chest radiograph 01/31/2022 CT angiogram chest 12/07/2021 TECHNIQUE: Multidetector volumetric CT imaging of the chest was done. Axial MIP volume rendering provided. Sagittal and coronal reformatted images were obtained. This CT examination was performed using dose optimization techniques as appropriate, variously including the following: *Automated exposure control *Adjustment of mA and/or kV according to patient size (this includes techniques or standardized protocols for targeted exams where dose is matched to indication/reason for exam; i.e. extremities or head) *Use of iterative reconstruction technique DLP: 277 mGy-cm FINDINGS: LUNGS: Again seen are extensive bronchiectatic changes throughout the lungs with the least involvement in the left lower lobe. There is increase in bronchial wall thickening seen and consolidative opacities surrounding some of the distal bronchi. There are innumerable areas of tree-in-bud formation consistent with inflammatory disease. No definite focal consolidations with air bronchograms are present. MEDIASTINUM: Heart size normal. No mediastinal or hilar lymphadenopathy is seen. CORONARY ARTERY CALCIFICATION: Coronary calcifications are present. PLEURA: There is no pleural effusion. No pleural mass or thickening. AXILLA: No lymphadenopathy. UPPER ABDOMEN: Unremarkable. OSSEOUS STRUCTURES: Unremarkable. CT/CT chest wo IV con IMPRESSION: Severe chronic lung disease again noted with extensive bronchiectatic changes thickening, tree-in-bud opacities as well as some more scattered consolidative opacities. Findings are certainly compatible with bronchopneumonia. Fleischner guidelines were followed.
--- NOTE | 2022-01-31 06:21 | ECG_ITS ---
Test Reason : CHEST PAIN/SOB Blood Pressure : / mmHG Vent. Rate : 082 BPM Atrial Rate : 082 BPM P-R Int : 118 ms QRS Dur : 136 ms QT Int : 398 ms P-R-T Axes : 061 -35 -06 degrees QTc Int : 464 ms Normal sinus rhythm Left axis deviation Right bundle branch block Abnormal ECG When compared with ECG of 23-JAN-2022 12:17, No significant change was found Referred By: Ivy Ayers Electronically Signed By:ALLY HUNG MD
--- NOTE | 2022-01-31 06:22 | ED.GENADULT ---
HPI - General Adult General Chief complaint: General Medical Stated complaint: SOB,CHEST PAIN Time Seen by Provider: 01/31/22 06:11 Source: patient and EMS Mode of arrival: EMS Limitations: no limitations History of Present Illness HPI narrative: Patient comes to the emergency room complaining of shortness of breath an suprapubic pain. Patient was discharged from the hospital 2 days ago, patient was here with sepsis due to ESBL E coli pneumonia with respiratory failure and hypoxia. Also, patient developed atrial fibrillation was he was in the hospital and he was discharged with Eliquis. Patient recently had hematuria and was seen by Urology, patient underwent cystoscopy and transurethral resection of a bladder lesion, patient was discharged home with an indwelling Schwarz catheter. Patient presents today stating that he feels that his bladder is completely full. However, he emptied his urine back this morning prior to arrival. Due to hematuria, patient's Eliquis was discharged. Related Data Home Medications Medication Instructions Recorded Confirmed brimonidine 0.2 %-timolol 0.5 % 1 drp ophthalmic (eye) BID 03/08/21 01/23/22 eye drops (Combigan) travoprost 0.004 % eye drops 1 drp ophthalmic (eye) BEDTIME 03/08/21 01/23/22 doxycycline hyclate 100 mg tablet 1 tab PO MOWEFR 01/23/22 01/23/22 mirabegron 25 mg tablet,extended 1 tab PO DAILY 01/23/22 01/23/22 release 24 hr (Myrbetriq) prednisone 5 mg tablet 2 tab PO DAILY 01/23/22 01/23/22 Previous Rx's Medication Instructions Recorded omeprazole 40 mg capsule,delayed 40 mg PO DAILY #90 caps 02/22/21 release sacubitril 24 mg-valsartan 26 mg 1 tab PO BID 90 days #180 tabs 07/19/21 tablet (Entresto) ipratropium 0.5 mg-albuterol 3 mg 3 ml inhalation QID PRN for 08/31/21 (2.5 mg base)/3 mL nebulization dyspnea #180 mL soln albuterol sulfate 90 mcg/actuation 2 puff inhalation Q4H PRN 10/30/21 aerosol inhaler shortness of breath or wheezing #8.5 grams lovastatin 10 mg tablet 10 mg PO DAILY 90 days #90 tabs 11/08/21 finasteride 5 mg tablet (Proscar) 5 mg PO DAILY 90 days #90 tabs 01/06/22 carvedilol 12.5 mg tablet 12.5 mg PO BID #60 tabs 01/13/22 docusate sodium 100 mg capsule 100 mg PO BID #60 caps 01/13/22 polyethylene glycol 3350 17 gram 17 g PO DAILY PRN constipation #30 01/13/22 oral powder packet ea tamsulosin 0.4 mg capsule 0.4 mg PO DAILY #30 caps 01/13/22 nitrofurantoin 100 mg PO Q12H #16 caps 01/29/22 monohydrate/macrocrystals 100 mg capsule prednisone 20 mg tablet 20 mg PO DAILY #12 tabs 01/29/22 Allergies Allergy/AdvReac Type Severity Reaction Status Date / Time Penicillins [PENICILLINS] Allergy Intermediate PASSED Verified 01/17/22 06:11 OUT trazodone Allergy Intermediate tremors Verified 01/17/22 06:11 Review of Systems Review of Systems: Constitutional : No Weight loss, No Fever, No Chills, No Night Sweats, No Fatigue, No Malaise ENT/Mouth : No Hearing loss, No Ear Pain, No Nasal Congestion, No Sinus Pain, No Hoarseness, No sore throat, No Rhinorrhea, No Swallowing Difficulty Eyes: No Eye Pain, No Swelling, No Redness, No Foreign Body, No Discharge, No Vision Changes Cardiovascular : No Chest Pain, No SOB, No Dyspnea on Exertion, No Orthopnea, No Edema, No Palpitations Respiratory : Complaining of worsening cough, chronic shortness of breath, uses oxygen at home per patient Gastrointestinal : No Nausea, No Vomiting, No Diarrhea, No Constipation, No abdominal Pain, No Hematochezia, No Melena Genitourinary : Patient recently had a dress urethral resection of a mass in the bladder, patient has an indwelling Schwarz catheter, complaining of constant suprapubic discomfort Musculoskeletal : No joint pain, No Myalgias, No Joint Swelling Skin : No Skin Lesions, No rash Neuro : No Weakness, No Numbness, No Paresthesias, No Loss of Consciousness, No Dizziness, No Headache Psych : No Anxiety/Panic, No Depression, No SI/HI/AH/VH, No Social Issues, Heme/Lymph: No Bruising, No Bleeding,No Lymphadenopathy Endocrine : No Polyuria, No Polydipsia, No Temperature Intolerance [facility] Past Medical History Medical History Bronchiectasis Bronchiectasis with (acute) exacerbation Bronchitis Congestive heart failure COPD (chronic obstructive pulmonary disease) COPD (chronic obstructive pulmonary disease) COPD exacerbation Essential hypertension GERD (gastroesophageal reflux disease) Glaucoma Hearing loss Hernia History of MAC infection Hypoxia JESSA (mycobacterium avium-intracellulare) NICM (nonischemic cardiomyopathy) Paroxysmal atrial fibrillation Pure hypercholesterolemia Surgical History History of bronchoscopy History of colonoscopy History of cystoscopy History of lumbar surgery History of rectal polypectomy Family History Family History Father No problems noted. Mother Medical history unknown Sister Diabetes Daughter In good health Son In good health Brother No problems noted. Social History Social History Household Members: None Housing: Apartment Do you presently have visiting nurse or other home services: Yes (gun fertilizer vna) Alcohol intake: unknown Patient Tobacco Use Status: Former Tobacco user Quit Date: 6 years ago e-Cigarette/Vaping Use: Never Used Second Hand Smoke Exposure: No Advance Directives: Yes Advance Directives on File: Yes Advance Directives Date on File: 07/12/21 service: No Current occupational status: disabled Cognitive needs: No Hearing needs: Yes Vision needs: Yes Physical Exam ED Vital Signs: Vital Signs - 24 hr 01/31/22 06:15 01/31/22 07:13 01/31/22 07:45 Temperature 99.3 F 99.8 F Pulse Rate 83 81 77 Respiratory Rate 23 H 16 20 Blood Pressure 133/67 138/72 116/55 L Pulse Oximetry 96 97 97 Oxygen Delivery Method Nasal Cannula Nasal Cannula Room Air Oxygen Flow Rate 2.5 BMI result Body Mass Index 26.7 Const Other: Appearance: Alert. Oriented X3. Seems uncomfortable Eyes: Pupils equal, round and reactive to light. ENT: Pharynx normal. Neck: Normal inspection. Neck supple. No lymph nodes noted. No crepitus CVS: Normal heart rate and rhythm. Pulses normal. Normal S1 and S2 Respiratory: Patient speaking full sentences, mild bilateral wheezing Abdomen: Patient has significant suprapubic tenderness. However, the bladder scan shows 0 mL of urine Skin: Skin warm and dry. Normal skin color. Normal skin turgor. Extremities: No lower extremity edema. No Lacerations. No Rash Neuro: Oriented X 3. No motor deficit. No sensory deficit. Moving all extremities. No slurred speech. CN 2 through 12 grossly intact Psych: calm, cooperative, normal affect Course Course Course Narrative: Of patient's labs are pending. White blood cell count 17.6 which has been elevated during the patient's recent admission. Chest x-ray shows similar appearance of diffuse bilateral airspace opacities, likely chronic, no new opacities. At this time, pneumonia is not suspected. No antibiotics to be given at this time. Urinalysis pending, troponin pending at 09:30. Sign-out given to Dr. Beltran Medical Decision Making Lab Data Result diagrams: 01/31/22 06:38 01/31/22 06:37 Labs: Lab Results 01/31/22 01/31/22 01/31/22 Range/Units 06:29 06:36 06:36 WBC (4.8-10.8) X10*3/uL RBC (4.60-5.80) X10*6/uL Hgb (14.0-18.0) g/dl Hct (42.0-52.0) % MCV (80.0-98.0) fL MCH (27.0-33.0) pg MCHC (31.0-36.0) g/dl RDW (11.0-16.0) % Plt Count (160-400) X10*3/uL MPV (9.4-12.4) fL Immature Gran % (Auto) (0.0-0.4) % Neut % (Auto) (45-73) % Lymph % (Auto) (20-40) % [place] % (Auto) (2-11) % Eos % (Auto) (0-4) % Baso % (Auto) (0-2) % Lymph # (Auto) (1.2-4.9) X10*3/uL [place] # (Auto) (0.1-1.2) X10*3/uL Eos # (Auto) (0.0-0.4) X10*3/uL Baso # (Auto) (0.0-0.2) X10*3/uL Abs Immat Gran (auto) (0.00-0.03) X10*3/uL Absolute Neuts (auto) (2.0-8.3) x10*3/uL Absolute Nucleated RBC (0.0-0.012) X10*3/uL Nucleated RBC % (auto) (0.0-0.2) /100WBC PT (10.0-13.1) SEC INR (0.9-1.1) VBG pH (7.32-7.43) VBG pCO2 mmHg VBG pO2 mmHg VBG HCO3 (22-26) mmol/L VBG O2 Saturation % VBG Base Excess mmol/L Sodium (135-145) mmol/L Potassium (3.3-5.1) mmol/L Chloride (96-108) mmol/L Carbon Dioxide (22-29) mmol/L Anion Gap (12-20) BUN (9-16) mg/dL Creatinine (0.5-1.4) mg/dL Estim Creat Clear Calc Estimated GFR Random Glucose (60-115) mg/dL Lactic Acid 0.8 (0.5-2.0) mmol/L Calcium (8.4-10.2) mg/dL Total Bilirubin (0.0-1.0) mg/dL Direct Bilirubin (0.0-0.5) mg/dL AST (5-37) U/L ALT (0-40) U/L Alkaline Phosphatase (39-117) U/L Troponin I High Sens (<3.5-35.0) ng/L B-Natriuretic Peptide 22 (<100) pg/mL Total Protein (6.5-8.0) g/dL Albumin (3.5-5.0) g/dL Urine Color Urine Appearance Urine pH (5.0-9.0) Ur Specific [place] (1.005-1.025) Urine Protein (Neg-Trace) mg/dL Urine Glucose (UA) (Negative) mg/dL Urine Ketones (Negative) mg/dL Urine Blood (Negative) Urine Nitrite (Negative) Ur Leukocyte Esterase (Negative) Urine RBC (0-2) /HPF Urine WBC (0-5) /HPF Ur Squamous Epith Cells (0-2) /HPF Urine Bacteria (None Seen) Hyaline Casts (0-2) /LPF COVID-19 ([facility]ONNIE) Negative (Negative) COVID-19 Clin Com See Note 01/31/22 01/31/22 01/31/22 Range/Units 06:37 06:37 06:37 WBC (4.8-10.8) X10*3/uL RBC (4.60-5.80) X10*6/uL Hgb (14.0-18.0) g/dl Hct (42.0-52.0) % MCV (80.0-98.0) fL MCH (27.0-33.0) pg MCHC (31.0-36.0) g/dl RDW (11.0-16.0) % Plt Count (160-400) X10*3/uL MPV (9.4-12.4) fL Immature Gran % (Auto) (0.0-0.4) % Neut % (Auto) (45-73) % Lymph % (Auto) (20-40) % [place] % (Auto) (2-11) % Eos % (Auto) (0-4) % Baso % (Auto) (0-2) % Lymph # (Auto) (1.2-4.9) X10*3/uL [place] # (Auto) (0.1-1.2) X10*3/uL Eos # (Auto) (0.0-0.4) X10*3/uL Baso # (Auto) (0.0-0.2) X10*3/uL Abs Immat Gran (auto) (0.00-0.03) X10*3/uL Absolute Neuts (auto) (2.0-8.3) x10*3/uL Absolute Nucleated RBC (0.0-0.012) X10*3/uL Nucleated RBC % (auto) (0.0-0.2) /100WBC PT 14.3 H (10.0-13.1) SEC INR 1.2 H (0.9-1.1) VBG pH (7.32-7.43) VBG pCO2 mmHg VBG pO2 mmHg VBG HCO3 (22-26) mmol/L VBG O2 Saturation % VBG Base Excess mmol/L Sodium 136 (135-145) mmol/L Potassium 3.8 (3.3-5.1) mmol/L Chloride 101 (96-108) mmol/L Carbon Dioxide 25 (22-29) mmol/L Anion Gap 14 (12-20) BUN 20 H D (9-16) mg/dL Creatinine 0.70 (0.5-1.4) mg/dL Estim Creat Clear Calc 77.2 Estimated GFR > 60 Random Glucose 160 H (60-115) mg/dL Lactic Acid (0.5-2.0) mmol/L Calcium 8.1 L D (8.4-10.2) mg/dL Total Bilirubin 0.7 (0.0-1.0) mg/dL Direct Bilirubin 0.3 (0.0-0.5) mg/dL AST 15 (5-37) U/L ALT 22 (0-40) U/L Alkaline Phosphatase 60 (39-117) U/L Troponin I High Sens 5.0 (<3.5-35.0) ng/L B-Natriuretic Peptide (<100) pg/mL Total Protein 6.0 L (6.5-8.0) g/dL Albumin 3.2 L (3.5-5.0) g/dL Urine Color Urine Appearance Urine pH (5.0-9.0) Ur Specific [place] (1.005-1.025) Urine Protein (Neg-Trace) mg/dL Urine Glucose (UA) (Negative) mg/dL Urine Ketones (Negative) mg/dL Urine Blood (Negative) Urine Nitrite (Negative) Ur Leukocyte Esterase (Negative) Urine RBC (0-2) /HPF Urine WBC (0-5) /HPF Ur Squamous Epith Cells (0-2) /HPF Urine Bacteria (None Seen) Hyaline Casts (0-2) /LPF COVID-19 ([facility]IE) (Negative) COVID-19 Clin Com 01/31/22 01/31/22 01/31/22 Range/Units 06:38 06:43 08:22 WBC 17.6 H (4.8-10.8) X10*3/uL RBC 4.31 L (4.60-5.80) X10*6/uL Hgb 12.0 L (14.0-18.0) g/dl Hct 37.0 L (42.0-52.0) % MCV 85.8 (80.0-98.0) fL MCH 27.8 (27.0-33.0) pg MCHC 32.4 (31.0-36.0) g/dl RDW 13.6 (11.0-16.0) % Plt Count 208 (160-400) X10*3/uL MPV 9.4 (9.4-12.4) fL Immature Gran % (Auto) 0.6 H (0.0-0.4) % Neut % (Auto) 88.2 H (45-73) % Lymph % (Auto) 2.8 L (20-40) % [place] % (Auto) 5.9 (2-11) % Eos % (Auto) 2.3 (0-4) % Baso % (Auto) 0.2 (0-2) % Lymph # (Auto) 0.5 L (1.2-4.9) X10*3/uL [place] # (Auto) 1.0 (0.1-1.2) X10*3/uL Eos # (Auto) 0.4 (0.0-0.4) X10*3/uL Baso # (Auto) 0.0 (0.0-0.2) X10*3/uL Abs Immat Gran (auto) 0.11 H (0.00-0.03) X10*3/uL Absolute Neuts (auto) 15.5 H (2.0-8.3) x10*3/uL Absolute Nucleated RBC 0.000 (0.0-0.012) X10*3/uL Nucleated RBC % (auto) 0.0 (0.0-0.2) /100WBC PT (10.0-13.1) SEC INR (0.9-1.1) VBG pH 7.55 H (7.32-7.43) VBG pCO2 31 mmHg VBG pO2 92 mmHg VBG HCO3 27 H (22-26) mmol/L VBG O2 Saturation 99.0 % VBG Base Excess 5.7 mmol/L Sodium (135-145) mmol/L Potassium (3.3-5.1) mmol/L Chloride (96-108) mmol/L Carbon Dioxide (22-29) mmol/L Anion Gap (12-20) BUN (9-16) mg/dL Creatinine (0.5-1.4) mg/dL Estim Creat Clear Calc Estimated GFR Random Glucose (60-115) mg/dL Lactic Acid (0.5-2.0) mmol/L Calcium (8.4-10.2) mg/dL Total Bilirubin (0.0-1.0) mg/dL Direct Bilirubin (0.0-0.5) mg/dL AST (5-37) U/L ALT (0-40) U/L Alkaline Phosphatase (39-117) U/L Troponin I High Sens (<3.5-35.0) ng/L B-Natriuretic Peptide (<100) pg/mL Total Protein (6.5-8.0) g/dL Albumin (3.5-5.0) g/dL Urine Color Yellow Urine Appearance Turbid Urine pH >= 9.0 (5.0-9.0) Ur Specific [place] 1.020 (1.005-1.025) Urine Protein 100 (2+) H (Neg-Trace) mg/dL Urine Glucose (UA) Negative (Negative) mg/dL Urine Ketones Negative (Negative) mg/dL Urine Blood Large (3+) H (Negative) Urine Nitrite Positive H (Negative) Ur Leukocyte Esterase Large (3+) H (Negative) Urine RBC >20 H (0-2) /HPF Urine WBC >50 H (0-5) /HPF Ur Squamous Epith Cells 0-2 (0-2) /HPF Urine Bacteria 2+ (None Seen) Hyaline Casts 3-5 (0-2) /LPF COVID-19 ([facility]) (Negative) COVID-19 Clin Com Discharge Plan Discharge Clinical Impression: Shortness of breath, Dysuria Patient Disposition: Still a Patient Prescriptions: No Action omeprazole 40 mg capsule,delayed release(DR/EC) 40 mg PO DAILY Qty: 90 3RF Entresto 24-26 mg tablet 1 tab PO BID 90 Days Qty: 180 3RF ipratropium-albuterol 0.5 mg-3 mg(2.5 mg base)/3 mL solution for nebulization 3 ml inhalation QID PRN (Reason: for dyspnea) Qty: 180 0RF albuterol sulfate 90 mcg/actuation HFA aerosol inhaler 2 puff inhalation Q4H PRN (Reason: shortness of breath or wheezing) Qty: 8.5 4RF lovastatin 10 mg tablet 10 mg PO DAILY 90 Days Qty: 90 3RF tamsulosin 0.4 mg capsule 0.4 mg PO DAILY Qty: 30 0RF carvedilol 12.5 mg tablet 12.5 mg PO BID Qty: 60 0RF Protocol: Hold for SBP/HR < HOLD for SBP < : 90 HOLD for HR < : 60 docusate sodium 100 mg capsule 100 mg PO BID Qty: 60 0RF polyethylene glycol 3350 17 gram powder in packet 17 g PO DAILY PRN (Reason: constipation) Qty: 30 0RF travoprost 0.004 % drops 1 drp ophthalmic (eye) BEDTIME brimonidine-timolol [Combigan] 0.2-0.5 % drops 1 drp ophthalmic (eye) BID Myrbetriq 25 mg tablet extended release 24 hr 1 tab PO DAILY doxycycline hyclate 100 mg tablet 1 tab PO MOWEFR prednisone 5 mg tablet 2 tab PO DAILY Hold Instructions: Resume on 02/06/22. nitrofurantoin monohyd/m-cryst 100 mg Capsule 100 mg PO Q12H Qty: 16 0RF prednisone 20 mg tablet 20 mg PO DAILY Qty: 12 0RF Rx Instructions: take prednisone 20 mg 2 tablets daily for 4 days, then prednisone 20 mg 1 tablet daily for 4 days then continue home dose of prednisone 10 mg daily finasteride [Proscar] 5 mg tablet 5 mg PO DAILY 90 Days Qty: 90 3RF
[2022-01-31 06:45] LABS: MANUAL DIFF FLAG NO
[2022-01-31 06:50] LABS: Venous Blood Gas Refer to POC result
[2022-01-31 06:50] LABS: VBG Base Excess 5.7 mmol/L; VBG HCO3 27 mmol/L (22-26); VBG pCO2 31 mmHg; VBG pH 7.55 (7.32-7.43); VBG pO2 92 mmHg
[2022-01-31 06:51] LABS: Basophils Percent Auto 0.2 % (0-2); Eosinophils Absolute Auto 0.4 X10*3/uL (0.0-0.4); Eosinophils Percent Auto 2.3 % (0-4); Imm Gran Abs Auto 0.11 X10*3/uL (0.00-0.03); Imm Gran Pct Auto 0.6 % (0.0-0.4); Lymphocytes Absolute Auto 0.5 X10*3/uL (1.2-4.9); Lymphocytes Percent Auto 2.8 % (20-40); Mean Corpuscular HGB Conc 32.4 g/dl (31.0-36.0); Mean Corpuscular Hemoglobin 27.8 pg (27.0-33.0); Mean Corpuscular Volume 85.8 fL (80.0-98.0); Mean Platelet Volume 9.4 fL (9.4-12.4); Monocytes Percent Auto 5.9 % (2-11); Neutrophils Absolute Auto 15.5 x10*3/uL (2.0-8.3); Neutrophils Percent Auto 88.2 % (45-73); Platelet Count 208 X10*3/uL (160-400); Red Blood Count 4.31 X10*6/uL (4.60-5.80); Red Cell Distribution Width 13.6 % (11.0-16.0); White Blood Count 17.6 X10*3/uL (4.8-10.8)
[2022-01-31 06:57] LABS: COVID-19 Test Negative (Negative); IDNOW Serial# BCCEAD1C
[2022-01-31 07:03] LABS: Lactic Acid 0.8 mmol/L (0.5-2.0)
[2022-01-31 07:05] LABS: Alanine Aminotransferase 22 U/L (0-40); Albumin Level 3.2 g/dL (3.5-5.0); Alkaline Phosphatase 60 U/L (39-117); Anion Gap 14 (12-20); Aspartate Amino Transferase 15 U/L (5-37); Bilirubin Direct 0.3 mg/dL (0.0-0.5); Bilirubin Total 0.7 mg/dL (0.0-1.0); Blood Urea Nitrogen 20 mg/dL (9-16); Calcium 8.1 mg/dL (8.4-10.2); Carbon Dioxide 25 mmol/L (22-29); Chloride 101 mmol/L (96-108); Creatinine Clr Calc Pharmacy 77.2; Estimated Glomerular Filt Rate > 60; Glucose Random 160 mg/dL (60-115); Potassium 3.8 mmol/L (3.3-5.1); Sodium 136 mmol/L (135-145)
[2022-01-31 07:08] LABS: B Type Natriuretic Peptide 22 pg/mL (<100)
[2022-01-31 07:11] LABS: INTERNATIONAL NORM RATIO 1.2 (0.9-1.1); Prothrombin Time 14.3 SEC (10.0-13.1)
--- NOTE | 2022-01-31 07:34 | PC.NURSE ---
Addendum entered by Jyothi Mayer 01/31/22 07:37: Denied any pain. Original Note: Irrigated 3 way cath with 200cc of NS. Small clots retrieved. Draining input amount.
[2022-01-31 08:41] LABS: Appearance Urine Turbid; Color Urine Yellow; Glucose Urine UA Negative (Negative); Leukocyte Esterase Urine Large (3+) (Negative); Nitrite Urine Positive (Negative); PH >= 9.0 (5.0-9.0); UMIC TRIGGER UACC YES; Urine Blood Large (3+) (Negative); Urine Ketones Negative (Negative); Urine Protein 100 (2+) mg/dL (Neg-Trace)
[2022-01-31 08:42] LABS: Bacteria Urine 2+ (None Seen); RBC Urine >20 /HPF (0-2); Squamous Epithelial Cell Urine 0-2 /HPF (0-2); UACC Culture Trigger YES; WBC Urine >50 /HPF (0-5)
[2022-01-31 09:03] LABS: Troponin-I High Sensitivity 5.4 ng/L (<3.5-35.0)
--- NOTE | 2022-01-31 11:38 | PC.NURSE ---
Schwarz cath changed from [address] to 18F. Pt tolerated well. Draining pink tinged urine.
[2022-01-31 11:50] LABS: Appearance Urine Turbid; Bacteria Urine 1+ (None Seen); Glucose Urine UA Negative (Negative); Leukocyte Esterase Urine Large (3+) (Negative); Nitrite Urine Negative (Negative); PH >= 9.0 (5.0-9.0); RBC Urine >20 /HPF (0-2); Squamous Epithelial Cell Urine 0-2 /HPF (0-2); UACC Culture Trigger YES; UMIC TRIGGER UACC YES; Urine Blood Large (3+) (Negative); Urine Ketones Negative (Negative); Urine Protein 100 (2+) mg/dL (Neg-Trace); WBC Urine >50 /HPF (0-5)
[2022-01-31 11:51] LABS: Color Urine Yellow
--- NOTE | 2022-01-31 13:44 | PC.NURSE ---
PT requesting updraft, provider notified.
[2022-01-31] MEDS: Ertapenem Sodium 1 GM in 0.9 % Sodium Chloride 50 ML IV (13:58)
--- NOTE | 2022-01-31 15:42 | PC.NURSE ---
respiratory called for updraft
[2022-01-31] MEDS: Albuterol Sulfate 2.5 MG, Albuterol Sulfate (0.083%) 2.5 MG 5 MG INHALE (15:47)
[2022-01-31] MEDS: Albuterol/Iprat 2.5/0.5MG 3 ML AMPUL.NEB INHALE ×2 (15:47→19:05)
[2022-01-31] MEDS: Magnesium Sulfate/H2O 2 GM/50 ML PIGGYBACK IV (15:51)
[2022-01-31] MEDS: methylPREDNISolone Sod Succ 125 MG/2 ML VIAL IVPUSH (15:51)
--- NOTE | 2022-01-31 15:54 | PC.NURSE ---
patient a&o, wall washer nsr 90s, updraft in progress, pt medicated per order, lungs clear with wheezing upper rt lobe, will continue to monitor
--- NOTE | 2022-01-31 17:31 | P.HPHOSP_ITS ---
History of Present Illness Date of Service: 01/31/22 Attending physician on admission: [facility] Chief Complaint: shortness of breath, suprapubic pressure 81-year-old male with history of bronchiectasis, COPD, not on home oxygen, HFpEF, hypertension, GERD, glaucoma, history of JESSA, and ICM, paroxysmal atrial fibrillation no longer on anticoagulation due to hematuria, and hyperchole sterolemia presented to the ED this morning complaining of suprapubic pressure and shortness of breath. He denies any fevers, chills, sore throat, nausea, vomiting, abdominal pain, dysuria, decreased urine output, cough, palpitations, or chest pain. The patient was recently admitted from 01/24/2020 for acute COPD exacerbation with acute hypoxic respiratory failure with underlying bronchiectasis and chronic JESSA, urinary retention and hematuria s/p cystoscopy, transurethral resection of bladder lesion on 01/17 by Urology which was negative for malignancy. 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 Never picked up the nitrofurantoin prescribed outpatient for him. Did have single occurrence of hematuria yesterday that has not persisted since hermosillo catheter replaced in ED. Has not followed outpt with urology as advised yet. UA was performed in ED showing 3+ leukocytes, 3+ blood, 1+ bacteria, negative nitrites. During his admission, he was treated with IV methylprednisolone, last dose given 01/28. WBC today is 17.6, improved from admission, likely remains elevated due to steroid use. Renal function baseline. Electrolytes normal. Glucose 160. Troponin flat . BNP 22. VBG pH 7.55, pCO2 31, PO2 92, HC03 27. CXR showing diffuse bilateral airspace opacities, likely chronic given similarity to previous imaging. He is afebrile without tachycardia. He is tachypneic to 30. Pulse oximetry 91% on room air, placed on 2 L supplemental O2. Patient to be admitted for acute COPD exacerbation with acute hypoxic respiratory failure. Review of Systems Review of Systems: General: No fevers, malaise, unintentional weight loss HEENT: No blurred vision, diplopia. No sore throat, nasal congestion, rhinorrhea, sinus pain, ear pain Cardiovascular: No chest pain, palpitations, or leg edema Respiratory: +sob, +wheezing. No cough GI: No abdominal pain, nausea, vomiting, diarrhea, constipation, melena, hematochezia : +hematuria. No dysuria, increased urinary frequency, decreased urinary output MSK: No myalgia, back pain Neuro: No headaches, weakness, paresthesias Skin: No rashes or lesions [facility] Medical History Bronchiectasis Bronchiectasis with (acute) exacerbation Bronchitis Congestive heart failure COPD (chronic obstructive pulmonary disease) COPD (chronic obstructive pulmonary disease) COPD exacerbation Essential hypertension GERD (gastroesophageal reflux disease) Glaucoma Hearing loss Hernia History of MAC infection Hypoxia JESSA (mycobacterium avium-intracellulare) NICM (nonischemic cardiomyopathy) Paroxysmal atrial fibrillation Pure hypercholesterolemia Family History Father No problems noted. Mother Medical history unknown Sister Diabetes Daughter In good health Son In good health Brother No problems noted. Surgical History History of bronchoscopy History of colonoscopy History of cystoscopy History of lumbar surgery History of rectal polypectomy Social History Household Members: None Housing: Apartment Do you presently have visiting nurse or other home services: Yes ([employer]) Alcohol intake: unknown Patient Tobacco Use Status: Former Tobacco user Quit Date: 6 years ago Smoked in Last 30 Days: Yes e-Cigarette/Vaping Use: Never Used Second Hand Smoke Exposure: No Use of substances other than those prescribed or required for medical reasons: No Currently Displaying Signs/Symptoms of Drug Intoxication Withdrawal: No Have you been hit, kicked, punched, or otherwise hurt by someone within the past year? If so, by whom?: No Do you feel safe in your current relationship?: No Current Relationship Is there a partner from a previous relationship who is making you feel unsafe now?: No Are you made to feel afraid or neglected: No Advance Directives: Yes Advance Directives on File: Yes Advance Directives Date on File: 07/12/21 Do you have thoughts of harming others: None Do you have a plan to hurt others: No Plan Recently lost weight without trying: No Eating poorly because of decreased appetite: No Nutrition Risks: No Nutritional Risk Poor oral hygiene: No service: No Current occupational status: disabled Cognitive needs: No Hearing needs: Yes Vision needs: Yes Meds Allergies Allergy/AdvReac Type Severity Reaction Status Date / Time Penicillins [PENICILLINS] Allergy Intermediate PASSED Verified 01/17/22 06:11 OUT trazodone Allergy Intermediate tremors Verified 01/17/22 06:11 Active Medications: Current Medications Acetaminophen (Acetaminophen 325 Mg Tablet) 650 mg PO Q6H PRN PRN Reason: Pain, Mild (Pain Scale 1-3) Albuterol Sulfate (Albuterol Sulfate (0.083%) 2.5 Mg/3 Ml Vial.Neb) 2.5 mg INHALE Q2H PRN PRN Reason: Shortness of Breath/Wheezing Albuterol/Ipratropium (Albuterol/Iprat 2.5/0.5mg 3 Ml Ampul.Neb) 3 ml INHALE RQ4H WHILE AWAKE TON Magnesium Sulfate (Magnesium Sulfate/H2o) 2 gm in 50 mls @ 25 mls/hr IV ONCE ONE Stop: 01/31/22 17:36 Last Admin: 01/31/22 15:51 Dose: 25 mls/hr Meropenem 1 gm/ Sodium (Chloride) 100 mls @ 200 mls/hr IV Q8H [facility] Methylprednisolone Sodium Succinate (Methylprednisolone Sod Succ 125 Mg/2 Ml Vial) 60 mg IVPUSH Q12H TON Ondansetron HCl (Ondansetron Hcl 4 Mg/2 Ml Vial) 4 mg IVPUSH Q8H PRN PRN Reason: Nausea and Vomiting Pharmacy Consult (Consult Rx Perform Med Rec) 1 each MISCELLANE ONCE PRN PRN Reason: Consult order Senna (Sennosides 8.6 Mg Tablet) 17.2 mg PO BEDTIME PRN PRN Reason: Constipation Sodium Chloride (0.9 % Sodium Chloride Flush 3 Ml Syringe) 3 ml IVFLUSH QSHIFT [facility] Home Medications Medication Instructions Recorded Confirmed Last Taken Type brimonidine 0.2 %-timolol 0.5 % 1 drp ophthalmic (eye) BID 03/08/21 01/31/22 03/07/21 History eye drops (Combigan) travoprost 0.004 % eye drops 1 drp ophthalmic (eye) BEDTIME 03/08/21 01/31/22 03/07/21 History doxycycline hyclate 100 mg tablet 1 tab PO MOWEFR 01/23/22 01/31/22 Unknown History mirabegron 25 mg tablet,extended 1 tab PO DAILY 01/23/22 01/31/22 Unknown History release 24 hr (Analibetriq) Physical Exam Vital Signs and Narrative: Vital Signs: Last Vital Signs Temp 99.0 F 01/31/22 15:25 Pulse 89 01/31/22 15:50 Resp 30 H 01/31/22 15:50 BP 146/73 H 01/31/22 15:25 Pulse Ox 91 L 01/31/22 15:25 O2 Del Method 01/31/22 15:25 O2 Flow Rate 2 01/31/22 13:49 Oxygen Flow Rate 2 01/31/22 06:15 BMI result Body Mass Index 26.7 Constitutional - Awake and Alert, No apparent distress Eyes - PERRLA, EOMI Cardiovascular - S1S2, RRR, No edema Respiratory - Normal lung expansion, Normal respiratory effort, No respiratory distress, scattered faint wheezes bilaterally Gastrointestinal - NT / ND; +BS; No rebound or guarding Extremities - no calf tenderness bilaterally, no swelling Musculoskeletal - Normal inspection, normal ROM Skin - Warm/Dry Neurological - Alert & oriented x3, CN II-XII in tact, 5/5 strength BUE and BLE Psychological - Appropriate affect Results Labs CBC and Chem 7: 02/01/22 05:50 02/01/22 05:49 Labs: Laboratory Results - last 24 hr 01/31/22 01/31/22 01/31/22 06:29 06:36 06:36 MCV MCH MCHC RDW Plt Count MPV Immature Gran % (Auto) Neut % (Auto) Lymph % (Auto) [place] % (Auto) Eos % (Auto) Baso % (Auto) Lymph # (Auto) [place] # (Auto) Eos # (Auto) Baso # (Auto) Abs Immat Gran (auto) Absolute Neuts (auto) Absolute Nucleated RBC Nucleated RBC % (auto) PT INR VBG pH VBG pCO2 VBG pO2 VBG HCO3 VBG O2 Saturation VBG Base Excess Anion Gap Estim Creat Clear Calc Estimated GFR Random Glucose Lactic Acid 0.8 Calcium Total Bilirubin Direct Bilirubin AST ALT Alkaline Phosphatase Troponin I High Sens B-Natriuretic Peptide 22 Total Protein Albumin Urine Color Urine Appearance Urine pH Ur Specific [place] Urine Protein Urine Glucose (UA) Urine Ketones Urine Blood Urine Nitrite Ur Leukocyte Esterase Urine RBC Urine WBC Urine WBC Clumps Ur Squamous Epith Cells Ur Transition Epith Cell Ur Renal Epithelial Cell Calcium Oxalate Crystal Leucine Crystals Cystine Crystals Tyrosine Crystals Other Crystals Urine Bacteria Urine Parasites Bilirubin Casts Epithelial Casts Fatty Casts Hyaline Casts Granular Casts Waxy Casts Broad Casts RBC Casts WBC Casts Other Casts Urine Trichomonas Urine Yeast COVID-19 ([facility]IE) Negative COVID-19 Clin Com See Note 01/31/22 01/31/22 01/31/22 06:37 06:37 06:37 MCV MCH MCHC RDW Plt Count MPV Immature Gran % (Auto) Neut % (Auto) Lymph % (Auto) [place] % (Auto) Eos % (Auto) Baso % (Auto) Lymph # (Auto) [place] # (Auto) Eos # (Auto) Baso # (Auto) Abs Immat Gran (auto) Absolute Neuts (auto) Absolute Nucleated RBC Nucleated RBC % (auto) PT 14.3 H INR 1.2 H VBG pH VBG pCO2 VBG pO2 VBG HCO3 VBG O2 Saturation VBG Base Excess Anion Gap 14 Estim Creat Clear Calc 77.2 Estimated GFR > 60 Random Glucose 160 H Lactic Acid Calcium 8.1 L D Total Bilirubin 0.7 Direct Bilirubin 0.3 AST 15 ALT 22 Alkaline Phosphatase 60 Troponin I High Sens 5.0 B-Natriuretic Peptide Total Protein 6.0 L Albumin 3.2 L Urine Color Urine Appearance Urine pH Ur Specific [place] Urine Protein Urine Glucose (UA) Urine Ketones Urine Blood Urine Nitrite Ur Leukocyte Esterase Urine RBC Urine WBC Urine WBC Clumps Ur Squamous Epith Cells Ur Transition Epith Cell Ur Renal Epithelial Cell Calcium Oxalate Crystal Leucine Crystals Cystine Crystals Tyrosine Crystals Other Crystals Urine Bacteria Urine Parasites Bilirubin Casts Epithelial Casts Fatty Casts Hyaline Casts Granular Casts Waxy Casts Broad Casts RBC Casts WBC Casts Other Casts Urine Trichomonas Urine Yeast COVID-19 ([facility]) COVID-19 Clin Com 01/31/22 01/31/22 01/31/22 06:38 06:43 08:22 MCV 85.8 MCH 27.8 MCHC 32.4 RDW 13.6 Plt Count 208 MPV 9.4 Immature Gran % (Auto) 0.6 H Neut % (Auto) 88.2 H Lymph % (Auto) 2.[address] [place] % (Auto) 5.9 Eos % (Auto) 2.3 Baso % (Auto) 0.2 Lymph # (Auto) 0.[address] [place] # (Auto) 1.0 Eos # (Auto) 0.4 Baso # (Auto) 0.0 Abs Immat Gran (auto) 0.11 H Absolute Neuts (auto) 15.5 H Absolute Nucleated RBC 0.000 Nucleated RBC % (auto) 0.0 PT INR VBG pH 7.55 H VBG pCO2 31 VBG pO2 92 VBG HCO3 27 H VBG O2 Saturation 99.0 VBG Base Excess 5.7 Anion Gap Estim Creat Clear Calc Estimated GFR Random Glucose Lactic Acid Calcium Total Bilirubin Direct Bilirubin AST ALT Alkaline Phosphatase Troponin I High Sens B-Natriuretic Peptide Total Protein Albumin Urine Color Yellow Urine Appearance Turbid Urine pH >= 9.0 Ur Specific [place] 1.020 Urine Protein 100 (2+) H Urine Glucose (UA) Negative Urine Ketones Negative Urine Blood Large (3+) H Urine Nitrite Positive H Ur Leukocyte Esterase Large (3+) H Urine RBC >20 H Urine WBC >50 H Urine WBC Clumps Ur Squamous Epith Cells 0-2 Ur Transition Epith Cell Ur Renal Epithelial Cell Calcium Oxalate Crystal Leucine Crystals Cystine Crystals Tyrosine Crystals Other Crystals Urine Bacteria 2+ Urine Parasites Bilirubin Casts Epithelial Casts Fatty Casts Hyaline Casts 3-5 Granular Casts Waxy Casts Broad Casts RBC Casts WBC Casts Other Casts Urine Trichomonas Urine Yeast COVID-19 ([facility]) COVID-19 Clin Com 01/31/22 01/31/22 01/31/22 08:29 11:32 11:32 MCV MCH MCHC RDW Plt Count MPV Immature Gran % (Auto) Neut % (Auto) Lymph % (Auto) [place] % (Auto) Eos % (Auto) Baso % (Auto) Lymph # (Auto) [place] # (Auto) Eos # (Auto) Baso # (Auto) Abs Immat Gran (auto) Absolute Neuts (auto) Absolute Nucleated RBC Nucleated RBC % (auto) PT INR VBG pH VBG pCO2 VBG pO2 VBG HCO3 VBG O2 Saturation VBG Base Excess Anion Gap Estim Creat Clear Calc Estimated GFR Random Glucose Lactic Acid Calcium Total Bilirubin Direct Bilirubin AST ALT Alkaline Phosphatase Troponin I High Sens 5.4 B-Natriuretic Peptide Total Protein Albumin Urine Color Yellow Cancelled Urine Appearance Turbid Cancelled Urine pH >= 9.0 Cancelled Ur Specific [place] 1.020 Cancelled Urine Protein 100 (2+) H Cancelled Urine Glucose (UA) Negative Cancelled Urine Ketones Negative Cancelled Urine Blood Large (3+) H Cancelled Urine Nitrite Negative Cancelled Ur Leukocyte Esterase Large (3+) H Cancelled Urine RBC >20 H Cancelled Urine WBC >50 H Cancelled Urine WBC Clumps Cancelled Ur Squamous Epith Cells 0-2 Cancelled Ur Transition Epith Cell Cancelled Ur Renal Epithelial Cell Cancelled Calcium Oxalate Crystal Cancelled Leucine Crystals Cancelled Cystine Crystals Cancelled Tyrosine Crystals Cancelled Other Crystals Cancelled Urine Bacteria 1+ Cancelled Urine Parasites Cancelled Bilirubin Casts Cancelled Epithelial Casts Cancelled Fatty Casts Cancelled Hyaline Casts 3-5 Cancelled Granular Casts Cancelled Waxy Casts Cancelled Broad Casts Cancelled RBC Casts Cancelled WBC Casts Cancelled Other Casts Cancelled Urine Trichomonas Cancelled Urine Yeast Cancelled COVID-19 ([facility]) COVID-19 Clin Com Imaging Radiologist's Impressions: Impressions Chest X-Ray 01/31/22 06:40 IMPRESSION: Similar appearance of diffuse bilateral airspace opacities. This is likely chronic given the similarity to previous imaging. Assessment and Plan (1) COPD exacerbation: Status: Acute (2) Acute respiratory failure with hypoxia: Status: Acute Plan 81-year-old male with history of bronchiectasis, COPD, not on home oxygen, HFpEF, hypertension, GERD, glaucoma, history of JESSA, NICM, paroxysmal atrial fibrillation no longer on anticoagulation due to hematuria, and hypercholesterolemia with recent admissions for ESBL e coli pneumonia and UTI, admitted for COPD exacberation with acute hypoxic respiratory failure. # Acute hypoxic respiratory failure- secondary to acute COPD exacerbation -Oximetry down to 88% in ED -Continue supplemental O2 to maintain oximetry greater than 92% # acute COPD exacerbation - has underlying bronchiectasis and chronic JESSA (formally treated 8 months with azithromycin, rifampin, ethambutol with subsequent bronchoscopy with broncholavage growing mycobacterium abscesses, stenotrophomonas, and MSSA treated with bactrim -recent admission from 01/23- for COPD exacerbation on IV Solu-Medrol -diffuse wheezing on exam which responded well to DuoNeb, albuterol, IV Mag in the ED, however remains hypoxic with scattered wheezes -IV Solu-Medrol 60 mg b.i.d. -no productive cough, CXR negative for acute focal consolidation-no addl antibiotics needed- takes doxycycline 100mg M,W,F per pulmonology -DuoNebs q.4h while awake -albuterol q.2h p.r.n. -negative for COVID-19. Respiratory panel pending #ESBL E.Coli UTI -Diagnosed during last admission. Seen and evaluated by ID who feels this is chronic colonization related to chronic [place] catheter -UA/UC pending as ordered by the ED -WBC 17.7, improved from admission. Treated with IV solumedrol and PO prednisone causing leukocytosis, less likely infection -hold off on further antibiotic treatment at this time per ID -No sepsis # BPH with LUTS and chronic urinary retention -continue chronic [place], change in ED -continue finasteride, tamsulosin and Myrbetriq #HFpEF- no acute exacerbation -Continue entresto #NICM -Continue carvedilol #glaucoma -continue home drops #Parox Afib- rate controlled -no longer on anticoagulation due to hematuria -continue carvedilol # hypertension -continue home meds DVT prophylaxis-Lovenox Full code Patient requires inpatient stay of at least 2 midnights due to acute COPD exacerbation with acute hypoxic respiratory failure requiring IV steroids and supplemental oxygen titration Quality Stroke Does the patient have a stroke diagnosis?: No VTE Prior VTE?: No VTE Risk Level:: Medical - moderate - high VTE Device Contraindication: Treatment Not Indicated VTE Drug Contraindication: N/A - Med Ordered
--- NOTE | 2022-01-31 17:55 | PHA.MEDREC ---
Pharmacy Consult ? Medication Reconciliation Pharmacy has completed the medication reconciliation. Used [employer] and previous dicharge note. Patient noted he did not get to take get the prednisone or macrobid previously prescribed on discharge 01/29
[2022-01-31] MEDS: Enoxaparin Sodium 40 MG/0.4 ML SYRINGE SUBCUT (18:47)
[2022-01-31 19:05] LABS: Appearance Urine Cloudy; Color Urine Yellow; Glucose Urine UA Negative (Negative); Leukocyte Esterase Urine Small (1+) (Negative); Nitrite Urine Negative (Negative); Specific Gravity - Urine 1.015 (1.005-1.025); UMIC TRIGGER UACC YES; Urine Blood Large (3+) (Negative); Urine Ketones Trace mg/dL (Negative); Urine Protein 100 (2+) mg/dL (Neg-Trace)
[2022-01-31 19:11] LABS: RBC Urine >20 /HPF (0-2); Squamous Epithelial Cell Urine 0-2 /HPF (0-2); UACC Culture Trigger YES
[2022-01-31 19:12] LABS: Bacteria Urine 4+ (None Seen); Hyaline Casts Urine 0-2 /LPF (0-2)
[2022-02-01] VITALS (8 sets, daily range): BP systolic 113–154; BP diastolic 59–71; PULSE 66–94; RESP 12–20; TEMP 36–36.7; O2SAT 97–99
[2022-02-01] MEDS: 0.9 % Sodium Chloride Flush 3 ML SYRINGE IVFLUSH ×4 (01:32→20:26)
[2022-02-01] MEDS: methylPREDNISolone Sod Succ 125 MG/2 ML VIAL 60 MG IVPUSH ×2 (04:59→16:30)
[2022-02-01 06:21] LABS: Basophils Percent Auto 0.1 % (0-2); Hematocrit 38.2 % (42.0-52.0); Hemoglobin 12.5 g/dl (14.0-18.0); Imm Gran Abs Auto 0.05 X10*3/uL (0.00-0.03); Imm Gran Pct Auto 0.5 % (0.0-0.4); Lymphocytes Absolute Auto 0.4 X10*3/uL (1.2-4.9); Lymphocytes Percent Auto 4.1 % (20-40); MANUAL DIFF FLAG SCAN; Mean Corpuscular HGB Conc 32.7 g/dl (31.0-36.0); Mean Corpuscular Hemoglobin 28.2 pg (27.0-33.0); Mean Platelet Volume 9.5 fL (9.4-12.4); Monocytes Absolute Auto 0.1 X10*3/uL (0.1-1.2); Monocytes Percent Auto 1.3 % (2-11); Neutrophils Absolute Auto 9.7 x10*3/uL (2.0-8.3); Platelet Count 230 X10*3/uL (160-400); Red Blood Count 4.44 X10*6/uL (4.60-5.80); Red Cell Distribution Width 13.2 % (11.0-16.0); SCAN SMEAR FLAG 1; White Blood Count 10.3 X10*3/uL (4.8-10.8)
[2022-02-01 06:38] LABS: Anion Gap 13 (12-20); Blood Urea Nitrogen 14 mg/dL (9-16); Calcium 8.2 mg/dL (8.4-10.2); Carbon Dioxide 28 mmol/L (22-29); Chloride 100 mmol/L (96-108); Creatinine Clr Calc Pharmacy 81.8; Estimated Glomerular Filt Rate > 60; Glucose Random 179 mg/dL (60-115); Potassium 4.3 mmol/L (3.3-5.1); Sodium 137 mmol/L (135-145)
[2022-02-01 07:45] LABS: SLIDE REVIEW VERIFIED
--- NOTE | 2022-02-01 09:43 | HO.PM.IMPN ---
Subjective Subjective Date of Service: 02/01/22 Interval History: Seen in f/u for acute respiratory failure with hypoxia interval history: feels better, hypoxia improved Review of Systems no fever or chills less sob Physical Exam Vital Signs: Vital Signs: Last Vital Signs Temp 98.1 F 02/01/22 07:58 Pulse 66 02/01/22 07:58 Resp 12 02/01/22 07:58 BP 140/66 H 02/01/22 07:58 Pulse Ox 98 02/01/22 07:58 O2 Del Method 02/01/22 07:58 O2 Flow Rate 2 02/01/22 07:58 Oxygen Flow Rate 2 01/31/22 06:15 BMI result Body Mass Index 26.7 Objective Data Active Medications Acetaminophen (Acetaminophen 325 Mg Tablet) 650 mg PO Q6H PRN PRN Reason: Pain, Mild (Pain Scale 1-3) Albuterol Sulfate (Albuterol Sulfate (0.083%) 2.5 Mg/3 Ml Vial.Neb) 2.5 mg INHALE Q2H PRN PRN Reason: Shortness of Breath/Wheezing Albuterol/Ipratropium (Albuterol/Iprat 2.5/0.5mg 3 Ml Ampul.Neb) 3 ml INHALE RQ4H WHILE AWAKE [facility] Last Admin: 02/01/22 07:56 Dose: Not Given Documented By: TYREE Non-Admin Reason: pt refused wants to sleep Enoxaparin Sodium (Enoxaparin Sodium 40 Mg/0.4 Ml Syringe) 40 mg SUBCUT Q24H [facility] Last Admin: 01/31/22 18:47 Dose: 40 mg Documented By: RUEL Methylprednisolone Sodium Succinate (Methylprednisolone Sod Succ 125 Mg/2 Ml Vial) 60 mg IVPUSH Q12H [facility] Last Admin: 02/01/22 04:59 Dose: 60 mg Documented By: ANTOIC Ondansetron HCl (Ondansetron Hcl 4 Mg/2 Ml Vial) 4 mg IVPUSH Q8H PRN PRN Reason: Nausea and Vomiting Pharmacy Consult (Consult Rx Perform Med Rec) 1 each MISCELLANE ONCE PRN PRN Reason: Consult order Senna (Sennosides 8.6 Mg Tablet) 17.2 mg PO BEDTIME PRN PRN Reason: Constipation Sodium Chloride (0.9 % Sodium Chloride Flush 3 Ml Syringe) 3 ml IVFLUSH QSHIFT [facility] Last Admin: 02/01/22 01:32 Dose: 3 ml Documented By: KEILA Labs CBC & Chem 7: 02/01/22 05:50 02/01/22 05:49 Labs: Laboratory Results - last 24 hr 01/31/22 01/31/22 01/31/22 11:32 11:32 18:49 MCV MCH MCHC RDW Plt Count MPV Immature Gran % (Auto) Neut % (Auto) Lymph % (Auto) [place] % (Auto) Eos % (Auto) Baso % (Auto) Lymph # (Auto) [place] # (Auto) Eos # (Auto) Baso # (Auto) Abs Immat Gran (auto) Absolute Neuts (auto) Absolute Nucleated RBC Nucleated RBC % (auto) Smear Tech's Comments Anion Gap Estim Creat Clear Calc Estimated GFR Random Glucose Calcium Urine Color Yellow Cancelled Yellow Urine Appearance Turbid Cancelled Cloudy Urine pH >= 9.0 Cancelled 7.0 Ur Specific [place] 1.020 Cancelled 1.015 Urine Protein 100 (2+) H Cancelled 100 (2+) H Urine Glucose (UA) Negative Cancelled Negative Urine Ketones Negative Cancelled Trace Urine Blood Large (3+) H Cancelled Large (3+) H Urine Nitrite Negative Cancelled Negative Ur Leukocyte Esterase Large (3+) H Cancelled Small (1+) H Urine RBC >20 H Cancelled >20 H Urine WBC >50 H Cancelled 6-10 Urine WBC Clumps Cancelled Ur Squamous Epith Cells 0-2 Cancelled 0-2 Ur Transition Epith Cell Cancelled Ur Renal Epithelial Cell Cancelled Calcium Oxalate Crystal Cancelled Leucine Crystals Cancelled Cystine Crystals Cancelled Tyrosine Crystals Cancelled Other Crystals Cancelled Urine Bacteria 1+ Cancelled 4+ Urine Parasites Cancelled Bilirubin Casts Cancelled Epithelial Casts Cancelled Fatty Casts Cancelled Hyaline Casts 3-5 Cancelled 0-2 Granular Casts Cancelled Waxy Casts Cancelled Broad Casts Cancelled RBC Casts Cancelled WBC Casts Cancelled Other Casts Cancelled Urine Trichomonas Cancelled Urine Yeast Cancelled 02/01/22 02/01/22 05:49 05:50 MCV 86.0 MCH 28.2 MCHC 32.7 RDW 13.2 Plt Count 230 MPV 9.5 Immature Gran % (Auto) 0.5 H Neut % (Auto) 94.0 H Lymph % (Auto) 4.1 L [place] % (Auto) 1.3 L Eos % (Auto) 0.0 Baso % (Auto) 0.1 Lymph # (Auto) 0.4 L [place] # (Auto) 0.1 Eos # (Auto) 0.0 Baso # (Auto) 0.0 Abs Immat Gran (auto) 0.05 H Absolute Neuts (auto) 9.7 H Absolute Nucleated RBC 0.000 Nucleated RBC % (auto) 0.0 Smear Tech's Comments VERIFIED Anion Gap 13 Estim Creat Clear Calc 81.8 Estimated GFR > 60 Random Glucose 179 H Calcium 8.2 L Urine Color Urine Appearance Urine pH Ur Specific [place] Urine Protein Urine Glucose (UA) Urine Ketones Urine Blood Urine Nitrite Ur Leukocyte Esterase Urine RBC Urine WBC Urine WBC Clumps Ur Squamous Epith Cells Ur Transition Epith Cell Ur Renal Epithelial Cell Calcium Oxalate Crystal Leucine Crystals Cystine Crystals Tyrosine Crystals Other Crystals Urine Bacteria Urine Parasites Bilirubin Casts Epithelial Casts Fatty Casts Hyaline Casts Granular Casts Waxy Casts Broad Casts RBC Casts WBC Casts Other Casts Urine Trichomonas Urine Yeast Microbiology Microbiology Results: Microbiology 01/31/22 06:33 Blood Culture - Preliminary Blood - Venous No growth after 24 hours. 01/31/22 06:29 Blood Culture - Preliminary Blood - Venous No growth after 24 hours. 01/31/22 Unknown Urine Culture - Preliminary Urine Catheterized - Schwarz Catheter Culture in progress. Assessment and Plan (1) Acute respiratory failure with hypoxia: Status: Acute (2) COPD exacerbation: Status: Acute (3) Shortness of breath: Status: Acute Plan 81-year-old male with history of bronchiectasis, COPD, not on home oxygen, HFpEF, hypertension, GERD, glaucoma, history of JESSA, NICM, paroxysmal atrial fibrillation no longer on anticoagulation due to hematuria, and hypercholesterolemia with recent admissions for ESBL e coli pneumonia and UTI, admitted for COPD exacberation with acute hypoxic respiratory failure. # Acute hypoxic respiratory failure- secondary to acute COPD exacerbation -Oximetry down to 88% in ED -wean off O2 # Acute COPD exacerbation - has underlying bronchiectasis and chronic JESSA (formally treated 8 months with azithromycin, rifampin, ethambutol with subsequent bronchoscopy with broncholavage growing mycobacterium abscesses, stenotrophomonas, and MSSA treated with bactrim -recent admission from 01/23- for COPD exacerbation on IV Solu-Medrol -diffuse wheezing on exam which responded well to DuoNeb, albuterol, IV Mag in the ED, however remains hypoxic with scattered wheezes -IV Solu-Medrol 60 mg b.i.d. for one more day then oral Prednisone -no productive cough, CXR negative for acute focal consolidation-no addl antibiotics needed- takes doxycycline 100mg M,W,F per pulmonology -DuoNebs q.4h while awake -albuterol q.2h p.r.n. -negative for COVID-19. Respiratory panel pending #ESBL E.Coli UTI -Diagnosed during last admission. 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 Treated with IV solumedrol and PO prednisone causing leukocytosis, less likely infection -hold off on further antibiotic treatment at this time per ID -No sepsis # BPH with LUTS and chronic urinary retention -continue chronic Schwarz, change in ED -continue finasteride, tamsulosin and Myrbetriq #HFpEF- no acute exacerbation -Continue entresto #NICM -Continue carvedilol #glaucoma -continue home drops #Parox Afib- rate controlled -no longer on anticoagulation due to hematuria -continue carvedilol # hypertension -continue home meds DVT prophylaxis-Lovenox Full code need for inpatient: acute resp failure, copd exacerbation Quality Stroke Does the patient have a stroke diagnosis?: No VTE Prior VTE?: No VTE Risk Level:: Medical - moderate - high VTE Device Contraindication: Treatment Not Indicated VTE Drug Contraindication: N/A - Med Ordered
--- NOTE | 2022-02-01 10:13 | MHC.CM.PN ---
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
[2022-02-01] MEDS: Albuterol/Iprat 2.5/0.5MG 3 ML AMPUL.NEB INHALE ×3 (11:38→19:36)
[2022-02-01 13:09] LABS: Bordetella parapertussis PCR Not Detected (Not Detect.); Bordetella pertussis PCR Not Detected (Not Detect.); Chlamydia pneumoniae PCR Not Detected (Not Detect.); Coronavirus 229E PCR Not Detected (Not Detect.); Coronavirus HKU1 PCR Not Detected (Not Detect.); Coronavirus NL63 PCR Not Detected (Not Detect.); Coronavirus OC43 PCR Not Detected (Not Detect.); Human metapneumovirus PCR Not Detected (Not Detect.); Influenza A PCR Not Detected (Not Detect.); Influenza B PCR Not Detected (Not Detect.); Mycoplasma pneumoniae PCR Not Detected (Not Detect.); Parainfluenza 1 PCR Not Detected (Not Detect.); Parainfluenza 2 PCR Not Detected (Not Detect.); Parainfluenza 3 PCR Not Detected (Not Detect.); Rhino/Enterovirus PCR Not Detected (Not Detect.); SARS-CoV-2 PCR Not Detected (Not Detect.)
[2022-02-01 13:10] LABS: Parainfluenza 4 PCR Not Detected (Not Detect.); RSV PCR Not Detected (Not Detect.)
[2022-02-01 13:12] LABS: Adenovirus PCR Not Detected (Not Detect.)
[2022-02-01] MEDS: Enoxaparin Sodium 40 MG/0.4 ML SYRINGE SUBCUT (16:30)
[2022-02-01] MEDS: Mirabegron 25 MG TAB.ER.24H PO (17:25)
[2022-02-01] MEDS: Tamsulosin HCL 0.4 MG CAPSULE PO (17:25)
[2022-02-01] MEDS: Finasteride 5 MG TABLET PO (17:25)
[2022-02-01] MEDS: Docusate Sodium 100 MG CAPSULE PO (20:26)
[2022-02-01] MEDS: Sacubitril/Valsartan 24/26 1 TAB TABLET PO (20:26)
[2022-02-01] MEDS: Latanoprost 0.005 % Ophth Sol 2.5 ML DROPS 1 DROP EYE-BOTH (20:26)
[2022-02-01] MEDS: carvediloL 12.5 MG TABLET PO (20:26)
[2022-02-02 03:12] VITALS: BP 114/55; PULSE 74; RESP 18; TEMP 36.4; O2SAT 97
[2022-02-02] MEDS: Albuterol/Iprat 2.5/0.5MG 3 ML AMPUL.NEB INHALE ×3 (03:22→11:38)
[2022-02-02] MEDS: methylPREDNISolone Sod Succ 125 MG/2 ML VIAL 60 MG IVPUSH (03:22)
[2022-02-02 03:25] VITALS: PULSE 74; RESP 18; O2SAT 97
[2022-02-02] MEDS: Omeprazole 40 MG CAPSULE.DR PO (05:47)
[2022-02-02 06:57] LABS: Basophils Percent Auto 0.1 % (0-2); Hematocrit 35.8 % (42.0-52.0); Hemoglobin 11.6 g/dl (14.0-18.0); Imm Gran Abs Auto 0.13 X10*3/uL (0.00-0.03); Imm Gran Pct Auto 0.8 % (0.0-0.4); Lymphocytes Absolute Auto 0.3 X10*3/uL (1.2-4.9); Lymphocytes Percent Auto 1.7 % (20-40); MANUAL DIFF FLAG SCAN; Mean Corpuscular HGB Conc 32.4 g/dl (31.0-36.0); Mean Corpuscular Hemoglobin 27.6 pg (27.0-33.0); Mean Corpuscular Volume 85.2 fL (80.0-98.0); Mean Platelet Volume 9.7 fL (9.4-12.4); Monocytes Absolute Auto 0.2 X10*3/uL (0.1-1.2); Monocytes Percent Auto 1.5 % (2-11); Neutrophils Absolute Auto 15.1 x10*3/uL (2.0-8.3); Neutrophils Percent Auto 95.9 % (45-73); Platelet Count 218 X10*3/uL (160-400); Red Cell Distribution Width 13.2 % (11.0-16.0); SCAN SMEAR FLAG 1; White Blood Count 15.7 X10*3/uL (4.8-10.8)
[2022-02-02 07:22] LABS: SLIDE REVIEW VERIFIED
[2022-02-02 07:31] LABS: Anion Gap 11 (12-20); Blood Urea Nitrogen 17 mg/dL (9-16); Calcium 8.4 mg/dL (8.4-10.2); Carbon Dioxide 30 mmol/L (22-29); Chloride 100 mmol/L (96-108); Creatinine Clr Calc Pharmacy 81.8; Estimated Glomerular Filt Rate > 60; Glucose Random 231 mg/dL (60-115); Potassium 4.2 mmol/L (3.3-5.1); Sodium 137 mmol/L (135-145)
[2022-02-02 07:34] VITALS: BP 120/65; PULSE 74; RESP 18; TEMP 36.6; O2SAT 98
[2022-02-02 08:09] VITALS: PULSE 82; RESP 18; O2SAT 97
[2022-02-02] MEDS: carvediloL 12.5 MG TABLET PO (08:29)
[2022-02-02] MEDS: 0.9 % Sodium Chloride Flush 3 ML SYRINGE IVFLUSH (08:29)
[2022-02-02] MEDS: Tamsulosin HCL 0.4 MG CAPSULE PO (08:29)
[2022-02-02] MEDS: Docusate Sodium 100 MG CAPSULE PO (08:29)
[2022-02-02] MEDS: Finasteride 5 MG TABLET PO (08:29)
[2022-02-02] MEDS: Pravastatin Sodium 10 MG TABLET PO (08:29)
[2022-02-02] MEDS: Mirabegron 25 MG TAB.ER.24H PO (08:29)
[2022-02-02] MEDS: Sacubitril/Valsartan 24/26 1 TAB TABLET PO (08:29)
--- NOTE | 2022-02-02 09:06 | PM.DS ---
DS: Providers Provider Date of Service: 02/02/22 Date of admission: 01/31/22 17:23 Primary care physician: Olga Calzada MD DS: Diagnosis Discharge Diagnosis (1) Acute respiratory failure with hypoxia: Status: Acute (2) COPD exacerbation: Status: Acute (3) Shortness of breath: Status: Acute DS: Summary Hospital Course Hospital Course: Chief Complaint: shortness of breath, suprapubic pressure 81-year-old male with history of bronchiectasis, COPD, not on home oxygen, HFpEF, hypertension, GERD, glaucoma, history of JESSA, and ICM, paroxysmal atrial fibrillation no longer on anticoagulation due to hematuria, and hypercholesterolemia presented to the ED this morning complaining of suprapubic pressure and shortness of breath.? He denies any fevers, chills, sore throat, nausea, vomiting, abdominal pain, dysuria, decreased urine output, cough, palpitations, or chest pain.? The patient was recently admitted from 01/24/2020/22 for acute COPD exacerbation with acute hypoxic respiratory failure with underlying bronchiectasis and chronic JESSA, urinary retention and hematuria s/p cystoscopy, transurethral resection of bladder lesion on 01/17 by Urology which was negative for malignancy. 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 Never picked up the nitrofurantoin prescribed outpatient for him. Did have single occurrence of hematuria yesterday that has not persisted since hermosillo catheter replaced in ED. Has not followed outpt with urology as advised yet.? UA was performed in ED showing 3+ leukocytes, 3+ blood, 1+ bacteria, negative nitrites.? During his admission, he was treated with IV methylprednisolone, last dose given 01/28.? WBC today is 17.6, improved from admission, likely remains elevated due to steroid use.? Renal function baseline.? Electrolytes normal.? Glucose 160.? Troponin flat .? BNP 22.? VBG pH 7.55, pCO2 31, PO2 92, HC03 27.? CXR showing diffuse bilateral airspace opacities, likely chronic given similarity to previous imaging.? He is afebrile without tachycardia.? He is tachypneic to 30.? Pulse oximetry 91% on room air, placed on 2 L supplemental O2.? Patient to be admitted for acute COPD exacerbation with acute hypoxic respiratory failure. Hospital course: ?# Acute hypoxic respiratory failure- secondary to acute COPD exacerbation--resolved after treateent of underyling COPD, presently O2 98 on room air # Acute COPD exacerbation--- has underlying bronchiectasis and chronic JESSA (formally treated 8 months with azithromycin, rifampin, ethambutol with subsequent bronchoscopy with broncholavage growing mycobacterium abscesses, stenotrophomonas, and MSSA treated with bactrim. He was treated with oxygen, bronchodilatros by Neb, and IV steroid and is doing much better, no longer needing Oxygen, will transition to oral Prednisone for 3 more days. RSV and covid were negative #ESBL E.Coli UTI -Diagnosed during last admission. 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 So no further indication for Abx # BPH with LUTS and chronic urinary retention -continue chronic Hermosillo, change in ED -continue finasteride, tamsulosin and Myrbetriq #HFpEF- no acute exacerbation -Continue entresto #NICM -Continue carvedilol #glaucoma -continue home drops #Parox Afib- rate controlled -no longer on anticoagulation due to hematuria -continue carvedilol # hypertension -continue home meds Dispo; home with VNA Time Spent with Patient Time attestation: Total time spent providing and/or coordinating discharge services: Discharge coordination time: Greater than 30 minutes Quality: Safe Use of Opioids Does Pt have an Active Cancer Diagnosis on the Problem List?: No Quality: Stroke Does the patient have a stroke diagnosis?: No Physical Exam Vital Signs: Vital Signs: Last Vital Signs Temp 97.8 F 02/02/22 07:34 Pulse 82 02/02/22 08:09 Resp 18 02/02/22 08:09 BP 120/65 02/02/22 07:34 Pulse Ox 98 02/02/22 07:34 O2 Del Method 02/02/22 07:34 O2 Flow Rate 2 02/01/22 23:14 Oxygen Flow Rate 2 01/31/22 06:15 BMI result Body Mass Index 26.7 DS: Data Data Completed and Pending Completed studies during hospitalization [Text1]: Procedures Insertion of Infusion Device into Right Cephalic Vein, Percutaneous Approach (12/07/21) Insertion of Infusion Device into Superior Vena Cava, Percutaneous Approach (12/07/21) Ultrasonography of Superior Vena Cava, Guidance (12/07/21) Labs on day of discharge: Laboratory Results - last 24 hr 01/31/22 02/02/22 02/02/22 18:46 06:22 06:22 WBC 15.7 H RBC 4.20 L Hgb 11.6 L Hct 35.8 L MCV 85.2 MCH 27.6 MCHC 32.4 RDW 13.2 Plt Count 218 MPV 9.7 Immature Gran % (Auto) 0.8 H Neut % (Auto) 95.9 H Lymph % (Auto) 1.7 L [place] % (Auto) 1.5 L Eos % (Auto) 0.0 Baso % (Auto) 0.1 Lymph # (Auto) 0.3 L [place] # (Auto) 0.2 Eos # (Auto) 0.0 Baso # (Auto) 0.0 Abs Immat Gran (auto) 0.13 H Absolute Neuts (auto) 15.1 H Absolute Nucleated RBC 0.000 Nucleated RBC % (auto) 0.0 Smear Tech's Comments VERIFIED Sodium 137 Potassium 4.2 Chloride 100 Carbon Dioxide 30 H Anion Gap 11 L BUN 17 H Creatinine 0.66 Estim Creat Clear Calc 81.8 Estimated GFR > 60 Random Glucose 231 H Calcium 8.4 Respiratory Panel Feldman See Note Adenovirus (Rapid PCR) Not Detected B.pert (TEM-PCR) Not Detected B.parapertussis DNA PCR Not Detected C. pneumoniae DNA (PCR) Not Detected Coronavirus OC43 (PCR) Not Detected Coronavirus HKU1 (PCR) Not Detected Coronavirus 229E (PCR) Not Detected Coronavirus NL63 (PCR) Not Detected Human Metapneumovir PCR Not Detected Influenza A (RT-PCR) Not Detected Influenza B (RT-PCR) Not Detected M. pneumoniae (PCR) Not Detected Parainfluenza 1 (PCR) Not Detected Parainfluenza 2 (PCR) Not Detected Parainfluenza 3 (PCR) Not Detected Parainfluenza 4 (PCR) Not Detected RSV (PCR) Not Detected Entero/Rhino (PCR) Not Detected SARS-CoV-2 RNA (RT-PCR) Not Detected Preliminary micro results at discharge 01/31/22 06:33 Blood Culture - Preliminary Blood - Venous No growth after 48 hours. 01/31/22 06:29 Blood Culture - Preliminary Blood - Venous No growth after 48 hours. 01/31/22 Unknown Urine Culture - Preliminary Urine Catheterized - [place] Catheter Gram negative dana Discharge Plan Discharge Anticipated Discharge Date/Time: 02/02/22 09:00 Patient Disposition: Home Health Service Discharge Diagnosis: COPD exacerbation Referrals: Olga North MD [Primary Care Provider] - 1 Week Discharge Medications: New prednisone 20 mg tablet 20 mg PO DAILY Qty: 3 0RF Continued omeprazole 40 mg capsule,delayed release(DR/EC) 40 mg PO DAILY Qty: 90 3RF Entresto 24-26 mg tablet 1 tab PO BID 90 Days Qty: 180 3RF ipratropium-albuterol 0.5 mg-3 mg(2.5 mg base)/3 mL solution for nebulization 3 ml inhalation QID PRN (Reason: for dyspnea) Qty: 180 0RF albuterol sulfate 90 mcg/actuation HFA aerosol inhaler 2 puff inhalation Q4H PRN (Reason: shortness of breath or wheezing) Qty: 8.5 4RF lovastatin 10 mg tablet 10 mg PO DAILY 90 Days Qty: 90 3RF tamsulosin 0.4 mg capsule 0.4 mg PO DAILY Qty: 30 0RF carvedilol 12.5 mg tablet 12.5 mg PO BID Qty: 60 0RF Protocol: Hold for SBP/HR < HOLD for SBP < : 90 HOLD for HR < : 60 docusate sodium 100 mg capsule 100 mg PO BID Qty: 60 0RF polyethylene glycol 3350 17 gram powder in packet 17 g PO DAILY PRN (Reason: constipation) Qty: 30 0RF travoprost 0.004 % drops 1 drp ophthalmic (eye) BEDTIME brimonidine-timolol [Combigan] 0.2-0.5 % drops 1 drp ophthalmic (eye) BID Myrbetriq 25 mg tablet extended release 24 hr 1 tab PO DAILY doxycycline hyclate 100 mg tablet 1 tab PO MOWEFR prednisone 20 mg tablet 20 mg PO DAILY Qty: 12 0RF Rx Instructions: take prednisone 20 mg 2 tablets daily for 4 days, then prednisone 20 mg 1 tablet daily for 4 days then continue home dose of prednisone 10 mg daily finasteride [Proscar] 5 mg tablet 5 mg PO DAILY 90 Days Qty: 90 3RF Discontinued nitrofurantoin monohyd/m-cryst 100 mg Capsule 100 mg PO Q12H Qty: 16 0RF Discharge Orders: Discharge Order (Routine); Ordered 02/02/22 Ordered By: Chico Bourgeois Diet: Advance to usual diet Activity on Discharge: As tolerated Stand Alone Forms: Patient Portal Discharge page Care Plan Goals: Full recovery from copd Health Concerns: copd Plan of Treatment: take prednisone and inhalers as directed and follow up with your Doctor in a week Assessment: as above
--- NOTE | 2022-02-02 09:13 | W.MHC.F2F ---
Service Date Service Date: 02/02/22 Encounter Date of encounter: 02/02/22 Reasons for Services Signs and symptoms assessed: shortnesss of breath Reason for senior care: medication treatment and teach disease management Homebound: Leaving the home is medically contraindicated at this time without the asist of a device and/or another person due th the listed conditions above and below. Reason homebound: weakness related to hospital stay Homebound supporting statement: Homebound due to shortness of breath at rest, deconditioning from hospitalization and therefore needs the assitance of another person Certification: Based on the above findings, I certify that this patient is confined to the home and needs intermittent senior care care, physical therapy and/or speech therapy, or continues to need occupational therapy. The patient is under my care, and I have initiated the establishment of the plan of care. The patient will be followed by a physician who will periodically review the plan of care.
--- NOTE | 2022-02-02 09:54 | MHC.CM.PN ---
Patient has been medically cleared for dc to home today, with services. Patient is active with [facility], who has been notified of today's dc. Last IMM addressed yesterday.
[2022-02-02 11:38] VITALS: PULSE 82; RESP 18; O2SAT 97
--- NOTE | 2022-02-02 13:10 | MHC.CM.PN ---
Patient will be dc to home today at 3PM, via [facility].
--- NOTE | 2022-02-02 14:19 | PC.NURSE ---
pt had a ride home from her friend Carla
--- NOTE | 2022-02-02 15:30 | MHC.CM.PN ---
Per RN, Patient's Friend provided transportation to home; BLS was cancelled.
== END 2022-02-02 14:20 | disposition home health service (06) | DRG 190 ==
LOC: HO.ED 20:01 → HO.EDOVER 20:44 → HO.IMC 20:56
PROVIDERS: Emergency Medicine; Admitting Provider Physician Assistant; Emergency Provider Emergency Medicine; PCP Internal Medicine; Visit Provider Internal Medicine
DX: J44.1 Chronic obstructive pulmonary disease with (acute) exacerbation (principal); J96.01 Acute respiratory failure with hypoxia; N39.0 Urinary tract infection, site not specified; I50.32 Chronic diastolic (congestive) heart failure; I42.8 Other cardiomyopathies; K21.9 Gastro-esophageal reflux disease without esophagitis; N40.1 Benign prostatic hyperplasia with lower urinary tract symptoms; I11.0 Hypertensive heart disease with heart failure; H40.9 Unspecified glaucoma; I48.0 Paroxysmal atrial fibrillation; B96.20 Unspecified Escherichia coli [E. coli] as the cause of diseases classified elsewhere; R33.8 Other retention of urine; Z20.822 Contact with and (suspected) exposure to COVID-19; Z91.14 Patient's other noncompliance with medication regimen; Z87.891 Personal history of nicotine dependence; Z88.0 Allergy status to penicillin; Z88.8 Allergy status to other drugs, medicaments and biological substances; Z79.899 Other long term (current) drug therapy
CPT/HCPCS: 36415; 71045; 71250; 80048; 80076; 81001; 81003; 82803; 83605; 83880; 84484; 85025; 85610; 87040; 87086; 87088; 87186; 87633; 87635; 93005; 94640; 99285; C1758; J1335; J1650; J2930; J3475

== ENCOUNTER → 2022-02-06 14:23 | Outpatient (BNVA) | payer MEDICARE, MEDICAID, SELFPAY | PROVIDERS: PCP Internal Medicine; Visit Provider Urology | DX: N39.0 Urinary tract infection, site not specified (principal) | CPT/HCPCS: 51700; 51798 ==

== ENCOUNTER → 2022-02-07 13:32 | Outpatient (BNVA) | payer MEDICARE, MEDICAID, SELFPAY | PROVIDERS: PCP Internal Medicine; Visit Provider Urology | DX: R33.9 Retention of urine, unspecified (principal) | CPT/HCPCS: 51798 ==

== ENCOUNTER → 2022-02-10 08:35 | Outpatient (BNVA) | payer MEDICARE, MEDICAID, SELFPAY | PROVIDERS: PCP Internal Medicine; Visit Provider Surgery | DX: J96.01 Acute respiratory failure with hypoxia (principal) | CPT/HCPCS: 99202 ==

== ENCOUNTER → 2022-02-14 12:35 | Outpatient (BNVA) | payer MEDICARE, MEDICAID, SELFPAY | PROVIDERS: PCP Internal Medicine; Visit Provider Internal Medicine Pulmonary Disease | DX: J96.01 Acute respiratory failure with hypoxia (principal); I50.9 Heart failure, unspecified | CPT/HCPCS: 94618; 99211 ==

== ENCOUNTER → 2022-02-16 12:41 | Outpatient (REF) | payer MEDICARE, MEDICAID, SELFPAY ==
--- NOTE | ~2022-02-16 | XR_ITS ---
EXAMINATION: XR CHEST CLINICAL INFORMATION: Chronic obstructive pulmonary disease. COMPARISON: 01/31/2022 TECHNIQUE: Frontal view of the chest was obtained. FINDINGS: The lungs are well expanded. Severe chronic lung disease again noted with known bronchiectasis. Reticular opacification throughout both lungs. There is no new consolidation. No pneumothorax. There may be a small right pleural effusion. The cardiomediastinal silhouette is unchanged. XR/XR chest 1V IMPRESSION: Severe chronic lung disease. There may be a small right pleural effusion. No new consolidation.
--- NOTE | ~2022-02-16 | NM_ITS ---
EXAMINATION: NUCLEAR MEDICINE PERFUSION QUANTITATIVE EXAM CLINICAL INFORMATION: Severe chronic lung disease with right pleural effusion. COMPARISON: CT of the chest 01/31/2022 and chest 02/16/2022. TECHNIQUE: Following intravenous administration of 4 mCi of technetium 99m MAA, perfusion imaging of both lungs were obtained. Quantitative study was performed on a separate workstation. FINDINGS: There are moderate large filling defects in the right upper lobe, some scattered small defects in the left lung apex. There are nonsegmental defect along the right major fissure and right minor fissure. Quantitation perfusion analysis and geometric mean count: RIGHT LUNG: Upper zone perfusion 3.4%, mid zone perfusion 20.7% and lower zone perfusion 5.5% with a total left lung perfusion of 29.6%. LEFT LUNG: Upper zone perfusion is 14.3%, middle zone is 42.8% and lower zone perfusion 13.3% with a total left lung perfusion of 70.4%. NM/NM pul perf jessica dif w image IMPRESSION: Significant perfusion defect in the right upper lobe and small segmental defect in the left upper lobe and nonsegmental defect along the major and minor fissure. The left lung perfusion is 70.4%. The right lung perfusion is 29.6%.
== END ==
LOC: HO.NUCMED 12:41
PROVIDERS: PCP Internal Medicine; Visit Provider Internal Medicine Pulmonary Disease
DX: J44.9 Chronic obstructive pulmonary disease, unspecified (principal)
CPT/HCPCS: 71045; 78597; A9540

== ENCOUNTER 2022-02-21 15:14 | Outpatient (REF) | payer MEDICARE, MEDICAID, SELFPAY ==
[2022-02-21 15:26] LABS: Appearance Urine Cloudy; Color Urine Yellow; Glucose Urine UA Negative (Negative); Leukocyte Esterase Urine Moderate (2+) (Negative); Nitrite Urine Positive (Negative); UMIC TRIGGER UA YES; Urine Blood Negative (Negative); Urine Ketones Negative (Negative); Urine Protein Trace mg/dL (Neg-Trace)
[2022-02-21 15:47] LABS: Bacteria Urine 4+ (None Seen); Hyaline Casts Urine 0-2 /LPF (0-2); Squamous Epithelial Cell Urine 0-2 /HPF (0-2); WBC Urine >50 /HPF (0-5)
== END 2022-02-21 15:15 | disposition home or self-care (01) ==
LOC: HO.LNP 15:14
PROVIDERS: Visit Provider Urology
DX: R33.8 Other retention of urine (principal)
CPT/HCPCS: 81001; 87086; 87088; 87186

== ENCOUNTER → 2022-03-08 13:41 | Outpatient (BNVA) | payer MEDICARE, MEDICAID, SELFPAY | PROVIDERS: PCP Internal Medicine; Visit Provider Urology | DX: N40.1 Benign prostatic hyperplasia with lower urinary tract symptoms (principal); R31.9 Hematuria, unspecified; R33.9 Retention of urine, unspecified; N39.0 Urinary tract infection, site not specified; Z16.12 Extended spectrum beta lactamase (ESBL) resistance; A49.9 Bacterial infection, unspecified | CPT/HCPCS: 51798; 99212 ==

== ENCOUNTER → 2022-03-15 13:52 | Outpatient (BNVA) | payer MEDICARE, MEDICAID, SELFPAY | PROVIDERS: PCP Internal Medicine; Visit Provider Internal Medicine Pulmonary Disease | DX: J44.9 Chronic obstructive pulmonary disease, unspecified (principal); J47.9 Bronchiectasis, uncomplicated; R05.3 Chronic cough; Z99.81 Dependence on supplemental oxygen | CPT/HCPCS: 99212 ==

== ENCOUNTER → 2022-03-20 13:44 | Outpatient (BNVA) | payer MEDICARE, MEDICAID, SELFPAY | PROVIDERS: PCP Internal Medicine; Referring Provider Internal Medicine; Visit Provider Internal Medicine | DX: Z01.810 Encounter for preprocedural cardiovascular examination (principal); I42.8 Other cardiomyopathies; I48.0 Paroxysmal atrial fibrillation; I45.2 Bifascicular block | CPT/HCPCS: 99212 ==

== ENCOUNTER 2022-03-22 12:54 | Outpatient (REF) | payer MEDICARE, MEDICAID, SELFPAY ==
--- NOTE | ~2022-03-22 | XR_ITS ---
EXAMINATION: XR ABDOMEN KUB CLINICAL INDICATION: Nephrolithiasis. COMPARISON: CT abdomen/pelvis 01/13/2022. TECHNIQUE: AP view of the abdomen. FINDINGS: There is a 7 mm calcification projecting over the lower left renal shadow and a 9 mm calcification adjacent to the left transverse process at the level of L4. These could represent renal calculi. Horseshoes kidney morphology. Nonobstructive bowel gas pattern. Redemonstration of prominent sclerotic osseous lesion in the right superior pubic rami, stable since 2012. XR/XR KUB IMPRESSION: 1. Left-sided renal calculi as above. 2. Horseshoes kidney morphology.
[2022-03-22 13:11] LABS: MANUAL DIFF FLAG NO
[2022-03-22 14:24] LABS: Basophils Absolute Auto 0.1 X10*3/uL (0.0-0.2); Basophils Percent Auto 0.6 % (0-2); Eosinophils Absolute Auto 0.9 X10*3/uL (0.0-0.4); Hematocrit 39.6 % (42.0-52.0); Hemoglobin 11.9 g/dl (14.0-18.0); Imm Gran Abs Auto 0.06 X10*3/uL (0.00-0.03); Imm Gran Pct Auto 0.5 % (0.0-0.4); Lymphocytes Percent Auto 8.2 % (20-40); Mean Corpuscular HGB Conc 30.1 g/dl (31.0-36.0); Mean Corpuscular Hemoglobin 26.9 pg (27.0-33.0); Mean Corpuscular Volume 89.4 fL (80.0-98.0); Mean Platelet Volume 9.7 fL (9.4-12.4); Monocytes Percent Auto 7.6 % (2-11); Neutrophils Absolute Auto 9.6 x10*3/uL (2.0-8.3); Neutrophils Percent Auto 76.1 % (45-73); Platelet Count 344 X10*3/uL (160-400); Red Blood Count 4.43 X10*6/uL (4.60-5.80); Red Cell Distribution Width 14.3 % (11.0-16.0); White Blood Count 12.6 X10*3/uL (4.8-10.8)
[2022-03-22 15:04] LABS: Alanine Aminotransferase 12 U/L (0-40); Albumin Level 3.8 g/dL (3.5-5.0); Alkaline Phosphatase 75 U/L (39-117); Anion Gap 12 (12-20); Aspartate Amino Transferase 15 U/L (5-37); Bilirubin Total 0.4 mg/dL (0.0-1.0); Blood Urea Nitrogen 10 mg/dL (9-16); Calcium 9.3 mg/dL (8.4-10.2); Carbon Dioxide 31 mmol/L (22-29); Chloride 101 mmol/L (96-108); Cholesterol 127 mg/dL; Estimated Glomerular Filt Rate > 60; Glucose Fasting 113 mg/dL (60-99); HDL Cholesterol 32 mg/dL; LDL Cholesterol Calculated 74 mg/dl; Potassium 4.4 mmol/L (3.3-5.1); Sodium 140 mmol/L (135-145); Total Protein 7.9 g/dL (6.5-8.0); Triglycerides 107 mg/dL
[2022-03-22 15:12] LABS: Vitamin D 25-OH Total 27.2 ng/mL (>30)
[2022-03-22 15:26] LABS: Appearance Urine Clear; Color Urine Yellow; Glucose Urine UA Negative (Negative); Leukocyte Esterase Urine Negative (Negative); Nitrite Urine Negative (Negative); PH 6.5 (5.0-9.0); Urine Blood Negative (Negative); Urine Ketones Negative (Negative); Urine Protein Trace mg/dL (Neg-Trace)
[2022-03-22 18:41] LABS: Bacteria Urine None Seen (None Seen); Hyaline Casts Urine 0-2 /LPF (0-2); RBC Urine 0-2 /HPF (0-2); Squamous Epithelial Cell Urine 0-2 /HPF (0-2)
[2022-03-24 11:39] LABS: NT-proBNP 82 pg/mL
== END 2022-03-22 12:55 | disposition home or self-care (01) ==
LOC: HO.LAB 12:54
PROVIDERS: PCP Internal Medicine; Visit Provider Urology
DX: N39.0 Urinary tract infection, site not specified (principal); I42.8 Other cardiomyopathies; E78.5 Hyperlipidemia, unspecified; E55.9 Vitamin D deficiency, unspecified; D64.9 Anemia, unspecified; N20.0 Calculus of kidney
CPT/HCPCS: 36415; 74018; 80053; 80061; 81001; 82306; 83880; 85025; 87086

== ENCOUNTER 2022-03-25 13:09 | Observation (INO) | payer MEDICARE, MEDICAID, SELFPAY ==
[2022-03-25] VITALS (7 sets, daily range): BP systolic 105–170; BP diastolic 52–102; PULSE 80–99; RESP 16–22; TEMP 36.7–37.1; O2SAT 94–98; BMI 24.2
--- NOTE | 2022-03-25 | ECG_ITS ---
Test Reason : sob Blood Pressure : / mmHG Vent. Rate : 104 BPM Atrial Rate : 104 BPM P-R Int : 130 ms QRS Dur : 122 ms QT Int : 354 ms P-R-T Axes : 068 -48 021 degrees QTc Int : 465 ms Sinus tachycardia Right bundle branch block Left anterior fascicular block Bifascicular block Abnormal ECG When compared with ECG of 31-JAN-2022 06:14, No significant change was found Referred By: Generic ED Physician Electronically Signed By:Eduard Manning
--- NOTE | ~2022-03-25 | XR_ITS ---
EXAMINATION: XR chest 1V CLINICAL INFORMATION: Reason for Exam sob COMPARISON: Chest radiograph 02/16/2022, CT chest 01/31/2022 TECHNIQUE: One view of the chest FINDINGS: Again seen are findings of extensive chronic underlying lung disease with emphysema, bronchiectasis and cystic change, which limits assessment for any superimposed acute findings however no definite new consolidation is appreciated. No pneumothorax. Similar blunting of the right costophrenic angle. Unchanged cardiomediastinal silhouette. XR/XR chest 1V IMPRESSION: * Again seen are findings of extensive chronic underlying lung disease with emphysema, bronchiectasis and cystic change, which limits assessment for any superimposed acute findings however no definite new consolidation is appreciated. * Possible trace right pleural effusion versus pleural parenchymal thickening similar to prior.
[2022-03-25 13:37] LABS: MANUAL DIFF FLAG NO
[2022-03-25 13:39] LABS: Basophils Absolute Auto 0.1 X10*3/uL (0.0-0.2); Basophils Percent Auto 0.5 % (0-2); Eosinophils Absolute Auto 0.9 X10*3/uL (0.0-0.4); Eosinophils Percent Auto 5.9 % (0-4); Hematocrit 37.7 % (42.0-52.0); Hemoglobin 11.5 g/dl (14.0-18.0); Imm Gran Abs Auto 0.06 X10*3/uL (0.00-0.03); Imm Gran Pct Auto 0.4 % (0.0-0.4); Lymphocytes Absolute Auto 0.8 X10*3/uL (1.2-4.9); Lymphocytes Percent Auto 5.2 % (20-40); Mean Corpuscular HGB Conc 30.5 g/dl (31.0-36.0); Mean Corpuscular Hemoglobin 26.1 pg (27.0-33.0); Mean Corpuscular Volume 85.5 fL (80.0-98.0); Mean Platelet Volume 9.2 fL (9.4-12.4); Monocytes Absolute Auto 0.9 X10*3/uL (0.1-1.2); Monocytes Percent Auto 6.2 % (2-11); Neutrophils Absolute Auto 12.4 x10*3/uL (2.0-8.3); Neutrophils Percent Auto 81.8 % (45-73); Platelet Count 297 X10*3/uL (160-400); Red Blood Count 4.41 X10*6/uL (4.60-5.80); Red Cell Distribution Width 14.1 % (11.0-16.0); White Blood Count 15.1 X10*3/uL (4.8-10.8)
[2022-03-25 13:54] LABS: Alanine Aminotransferase 12 U/L (0-40); Albumin Level 3.5 g/dL (3.5-5.0); Alkaline Phosphatase 70 U/L (39-117); Anion Gap 10 (12-20); Aspartate Amino Transferase 14 U/L (5-37); Bilirubin Total 0.3 mg/dL (0.0-1.0); Blood Urea Nitrogen 11 mg/dL (9-16); Calcium 8.7 mg/dL (8.4-10.2); Carbon Dioxide 28 mmol/L (22-29); Chloride 105 mmol/L (96-108); Estimated Glomerular Filt Rate > 60; Glucose Random 141 mg/dL (60-115); Potassium 4.1 mmol/L (3.3-5.1); Sodium 139 mmol/L (135-145); Total Protein 7.4 g/dL (6.5-8.0)
[2022-03-25 14:02] LABS: Troponin-I High Sensitivity 3.5 ng/L (<3.5-35.0)
--- NOTE | 2022-03-25 14:07 | PC.NURSE ---
ED radiology at bedside will CTM
--- NOTE | 2022-03-25 14:11 | ED_ITS ---
HPI - SOB/Dyspnea General Chief Complaint: Dyspnea Stated Complaint: DIFF BREATHIING, LOW BACK PAIN. H/O COPD Time Seen by Provider: 03/25/22 13:41 Source: patient and diplomatic interpreter Mode of arrival: ambulatory Limitations: no limitations History of Present Illness HPI Narrative: 81-year-old male with history of bronchiectasis, COPD, 2 L of supplemental oxygen at home, HFpEF, HTN, GERD, paroxysmal atrial fibrillation no anticoagulation, history of acute on chronic respiratory failure, came in for increased shortness of breath and coughing with green sputum worsening over the past 3 weeks, no sick contact, no recent travel. Patient been also complaining exertional shortness of breath with minimal activity at home. No recent travel, no sick contact. Related Data Home Medications Medication Instructions Recorded Confirmed brimonidine 0.2 %-timolol 0.5 % 1 drp ophthalmic (eye) BID 03/08/21 03/20/22 eye drops (Combigan) travoprost 0.004 % eye drops 1 drp ophthalmic (eye) BEDTIME 03/08/21 03/20/22 doxycycline hyclate 100 mg tablet 100 mg PO MOWEFR 03/20/22 03/20/22 prednisone 10 mg tablet 20 mg PO DAILY 03/20/22 03/20/22 Previous Rx's Medication Instructions Recorded sacubitril 24 mg-valsartan 26 mg 1 tab PO BID 90 days #180 tabs 07/19/21 tablet (Entresto) ipratropium 0.5 mg-albuterol 3 mg 3 ml inhalation QID PRN for 08/31/21 (2.5 mg base)/3 mL nebulization dyspnea #180 mL soln albuterol sulfate 90 mcg/actuation 2 puff inhalation Q4H PRN 10/30/21 aerosol inhaler shortness of breath or wheezing #8.5 grams lovastatin 10 mg tablet 10 mg PO DAILY 90 days #90 tabs 11/08/21 finasteride 5 mg tablet (Proscar) 5 mg PO DAILY 90 days #90 tabs 01/06/22 omeprazole 40 mg capsule,delayed 40 mg PO DAILY #90 caps 02/04/22 release polyethylene glycol 3350 17 gram 17 g PO DAILY PRN constipation #30 02/15/22 oral powder packet ea nitrofurantoin 100 mg PO DAILY 30 days #30 caps 03/08/22 monohydrate/macrocrystals 100 mg capsule (Macrobid) carvedilol 12.5 mg tablet 12.5 mg PO BID #60 tabs 03/14/22 tamsulosin 0.4 mg capsule 0.4 mg PO DAILY #30 caps 03/14/22 docusate sodium 100 mg capsule 100 mg PO BID #60 caps 03/18/22 walker #1 ea 03/20/22 Allergies Allergy/AdvReac Type Severity Reaction Status Date / Time Penicillins [PENICILLINS] Allergy Intermediate PASSED Verified 03/20/22 13:54 OUT trazodone Allergy Intermediate tremors Verified 03/20/22 13:54 Review of Systems Review of Systems: All other systems are reviewed and are negative Constitutional: Reports as per HPI and Reports no additional constitutional co mplaints Eyes: Reports as per HPI and Reports no additional eye complaints Reports system reviewed and no additional complaints, except as documented Cardiovascular: Reports as per HPI and Reports no additional cardiovascular complaints Respiratory: Reports as per HPI and Reports no additional respiratory complaints Gastrointestinal: Reports as per HPI and Reports no additional gastrointestinal complaints Genitourinary: Reports no additional female genitourinary complaints Musculoskeletal: Reports no additional musculoskeletal complaints Skin/Breast: Reports system reviewed and no additional complaints, except as docu Psychiatric: Reports no additional psychiatric complaints Endocrine: Reports no additional endocrine complaints Hematologic/Lymphatic: Reports no additional hematologic/lymphatic complaints Allergic/Immunologic: Reports no additional allergic/immunologic complaints Reports system reviewed and no additional complaints, except as documented and Reports Abnormal speech present [facility] Past Medical History Medical History BPH loc w urin obs/LUTS Bronchiectasis Bronchiectasis with (acute) exacerbation Bronchitis Congestive heart failure COPD (chronic obstructive pulmonary disease) COPD (chronic obstructive pulmonary disease) COPD (chronic obstructive pulmonary disease) COPD exacerbation Dysuria Essential hypertension GERD (gastroesophageal reflux disease) Glaucoma Hearing loss Hernia History of MAC infection Hypoxia Kidney stone on left side JESSA (mycobacterium avium-intracellulare) NICM (nonischemic cardiomyopathy) Paroxysmal atrial fibrillation Pure hypercholesterolemia Urinary retention Surgical History History of bronchoscopy History of colonoscopy History of cystoscopy History of lumbar surgery History of rectal polypectomy Family History Family History Father No problems noted. Mother Medical history unknown Sister Diabetes Daughter In good health Son In good health Brother No problems noted. Social History Social History Household Members: None Housing: Apartment Do you presently have visiting nurse or other home services: Yes (UTILIZATION COORDINATOR) Alcohol intake: unknown Patient Tobacco Use Status: Former Tobacco user Quit Date: 6 years ago Smoked in Last 30 Days: No e-Cigarette/Vaping Use: Never Used Second Hand Smoke Exposure: No Advance Directives: Yes Advance Directives on File: Yes Advance Directives Date on File: 07/12/21 service: No Current occupational status: disabled Cognitive needs: No Hearing needs: Yes Vision needs: Yes Physical Exam Vital Signs: Vital Signs: Last Vital Signs Temp 98.4 F 03/25/22 13:36 Pulse 97 03/25/22 15:07 Resp 22 H 03/25/22 15:07 BP 148/74 H 03/25/22 15:07 Pulse Ox 94 03/25/22 15:07 O2 Del Method 03/25/22 15:07 O2 Flow Rate 2 03/25/22 15:07 Oxygen Flow Rate 2 03/25/22 13:36 BMI result Body Mass Index 24.2 Vital signs have been reviewed as appeared to be correct. Blood pressure normal. Heart rate normal. Respiration rate normal. Temperature normal. Oxygen saturation normal. Appearance: Alert. Oriented X3. Mild acute respiratory distress. Head: Normal external exam. Normocephalic. Atraumatic. No Mckeon signs noted. No raccoon eyes noted Eyes: PERRLA. EOMI. Conjunctiva and sclera normal. Eyelids normal. ENT: TM's Normal. Pharynx normal. Uvula midline. Moist mucous membranes. No trismus noted. No drooling noted. No muffled voice noted. Neck: Normal inspection. Neck supple. FROM. No adenopathy. Thyroid Normal. No meningeal signs. No neck mass noted. CVS: Normal heart rate and rhythm. Heart sound normal. No murmurs noted. Pulses normal throughout. Respiratory: Mild respiratory distress. Painless inspiration. Breath sounds normal. Diffuse expiratory wheezing with prolonged expiration noted. Chest nontender. No accessory muscle usage noted or decreased air movement noted. Abdomen: Soft and nontender. Bowel sounds normal in all 4 quadrants. No diste ntion noted. No organomegaly noted. No visible injury noted. Back: No CVA tenderness. Full range of motion noted. Skin: Skin warm and dry. Normal skin color. Normal skin turgor. No rashes/lesions/lacerations noted. Extremities: No lower extremity edema. Extremities exhibit normal range of m otion. Extremities nontender. Neuro: Oriented X 3. Cranial nerve exam: II-XII are grossly intact No motor deficit. No sensory deficit. Reflexes normal. Course Course Course Narrative: 81-year-old male history of COPD acute on chronic respiratory failure came in with respiratory distress patient received a dose of Levaquin/bronchodilator/Solu-Medrol. Medications Administered Generic Name Dose Route Start Last Admin Trade Name Freq PRN Reason Stop Dose Admin Magnesium Sulfate 2 gm in 50 mls @ 25 mls/hr 03/25/22 14:07 03/25/22 14:52 Magnesium Sulfate/H2o IV 03/25/22 16:06 Infused ONCE ONE Infusion Levofloxacin 750 mg in 150 mls @ 100 mls/hr 03/25/22 14:10 03/25/22 14:48 Levaquin IV 03/25/22 15:39 100 mls/hr ONCE ONE Administration Discontinued Medications Generic Name Dose Route Start Last Admin Trade Name Freq PRN Reason Stop Dose Admin Albuterol Sulfate 7.5 mg/ 10 mg 03/25/22 14:07 03/25/22 15:06 Albuterol Sulfate 2.5 mg INHALE 03/25/22 14:08 10 mg ONCE ONE Administration Ipratropium [place] 0.5 mg 03/25/22 14:07 03/25/22 15:05 Ipratropium [place] 0.5 Mg/2.5 Ml Solution INHALE 03/25/22 14:08 0.5 mg ONCE ONE Administration Methylprednisolone Sodium Succinate 125 mg 03/25/22 14:07 03/25/22 14:33 Methylprednisolone Sod Succ 125 Mg/2 Ml Vial IVPUSH 03/25/22 14:08 125 mg ONCE ONE Administration Medical Decision Making Differential Diagnosis Differential Diagnoses: The differential diagnosis associated with the presentation includes (COPD exacerbation, pneumonia, viral infection, pneumothorax.) Admission/Observation Consideration of admission/observation: Escalation of care including admission/observation considered Consult Healthcare Provider Management of the patient was discussed with: Hospitalist Lab Data [facility] Lab Attestation statement: I reviewed the patient's lab results. 03/25/22 13:34 03/25/22 13:34 Labs: Lab Results 03/25/22 03/25/22 03/25/22 Range/Units 13:34 13:34 13:34 WBC 15.1 H (4.8-10.8) X10*3/uL RBC 4.41 L (4.60-5.80) X10*6/uL Hgb 11.5 L (14.0-18.0) g/dl Hct 37.7 L (42.0-52.0) % MCV 85.5 (80.0-98.0) fL MCH 26.1 L (27.0-33.0) pg MCHC 30.5 L (31.0-36.0) g/dl RDW 14.1 (11.0-16.0) % Plt Count 297 (160-400) X10*3/uL MPV 9.2 L (9.4-12.4) fL Immature Gran % (Auto) 0.4 (0.0-0.4) % Neut % (Auto) 81.8 H (45-73) % Lymph % (Auto) 5.2 L (20-40) % [place] % (Auto) 6.2 (2-11) % Eos % (Auto) 5.9 H (0-4) % Baso % (Auto) 0.5 (0-2) % Lymph # (Auto) 0.8 L (1.2-4.9) X10*3/uL [place] # (Auto) 0.9 (0.1-1.2) X10*3/uL Eos # (Auto) 0.9 H (0.0-0.4) X10*3/uL Baso # (Auto) 0.1 (0.0-0.2) X10*3/uL Abs Immat Gran (auto) 0.06 H (0.00-0.03) X10*3/uL Absolute Neuts (auto) 12.4 H (2.0-8.3) x10*3/uL Absolute Nucleated RBC 0.000 (0.0-0.012) X10*3/uL Nucleated RBC % (auto) 0.0 (0.0-0.2) /100WBC Sodium 139 (135-145) mmol/L Potassium 4.1 (3.3-5.1) mmol/L Chloride 105 (96-108) mmol/L Carbon Dioxide 28 (22-29) mmol/L Anion Gap 10 L (12-20) BUN 11 (9-16) mg/dL Creatinine 0.73 (0.5-1.4) mg/dL Estim Creat Clear Calc 74.0 Estimated GFR > 60 Random Glucose 141 H (60-115) mg/dL Lactic Acid (0.5-2.0) mmol/L Calcium 8.7 D (8.4-10.2) mg/dL Total Bilirubin 0.3 (0.0-1.0) mg/dL AST 14 (5-37) U/L ALT 12 (0-40) U/L Alkaline Phosphatase 70 (39-117) U/L Troponin I High Sens 3.5 (<3.5-35.0) ng/L B-Natriuretic Peptide (<100) pg/mL Total Protein 7.4 (6.5-8.0) g/dL Albumin 3.5 (3.5-5.0) g/dL Influenza Type A (PCR) (Negative) Influenza Type B (PCR) (Negative) RSV RNA Qual (PCR) (Negative) SARS-CoV-2 RNA (RT-PCR) (Negative) 03/25/22 03/25/22 03/25/22 Range/Units 13:34 13:48 14:23 WBC (4.8-10.8) X10*3/uL RBC (4.60-5.80) X10*6/uL Hgb (14.0-18.0) g/dl Hct (42.0-52.0) % MCV (80.0-98.0) fL MCH (27.0-33.0) pg MCHC (31.0-36.0) g/dl RDW (11.0-16.0) % Plt Count (160-400) X10*3/uL MPV (9.4-12.4) fL Immature Gran % (Auto) (0.0-0.4) % Neut % (Auto) (45-73) % Lymph % (Auto) (20-40) % [place] % (Auto) (2-11) % Eos % (Auto) (0-4) % Baso % (Auto) (0-2) % Lymph # (Auto) (1.2-4.9) X10*3/uL [place] # (Auto) (0.1-1.2) X10*3/uL Eos # (Auto) (0.0-0.4) X10*3/uL Baso # (Auto) (0.0-0.2) X10*3/uL Abs Immat Gran (auto) (0.00-0.03) X10*3/uL Absolute Neuts (auto) (2.0-8.3) x10*3/uL Absolute Nucleated RBC (0.0-0.012) X10*3/uL Nucleated RBC % (auto) (0.0-0.2) /100WBC Sodium (135-145) mmol/L Potassium (3.3-5.1) mmol/L Chloride (96-108) mmol/L Carbon Dioxide (22-29) mmol/L Anion Gap (12-20) BUN (9-16) mg/dL Creatinine (0.5-1.4) mg/dL Estim Creat Clear Calc Estimated GFR Random Glucose (60-115) mg/dL Lactic Acid 0.9 (0.5-2.0) mmol/L Calcium (8.4-10.2) mg/dL Total Bilirubin (0.0-1.0) mg/dL AST (5-37) U/L ALT (0-40) U/L Alkaline Phosphatase (39-117) U/L Troponin I High Sens (<3.5-35.0) ng/L B-Natriuretic Peptide 30 (<100) pg/mL Total Protein (6.5-8.0) g/dL Albumin (3.5-5.0) g/dL Influenza Type A (PCR) NEGATIVE (Negative) Influenza Type B (PCR) NEGATIVE (Negative) RSV RNA Qual (PCR) NEGATIVE (Negative) SARS-CoV-2 RNA (RT-PCR) NEGATIVE (Negative) Independent Interpretation I performed an independent interpretation of an: Plain X-Ray (Chest: Chronic underlying lung disease with emphysema) Radiology Impression Discussion of test interpretation with radiology: I have reviewed the radiologist's reading. Discharge Plan Discharge Clinical Impression: COPD exacerbation, Acute and chronic respiratory failure Patient Disposition: Admitted As Inpatient
[2022-03-25 14:31] LABS: Influenza A PCR NEGATIVE (Negative); Influenza B PCR NEGATIVE (Negative); Resp Syncy Virus RNA Qual PCR NEGATIVE (Negative); SARS COV2 PCR INHOUSE NEGATIVE (Negative)
[2022-03-25] MEDS: methylPREDNISolone Sod Succ 125 MG/2 ML VIAL IVPUSH (14:33)
[2022-03-25] MEDS: Magnesium Sulfate/H2O 2 GM/50 ML PIGGYBACK IV (14:33)
--- NOTE | 2022-03-25 14:33 | PC.NURSE ---
Verified med order with will admin magnesium sulfaate over 20 min
[2022-03-25] MEDS: levoFLOXacin/D5W 750 MG/150 ML PIGGYBACK 100 MG IV (14:48)
[2022-03-25 14:52] LABS: B Type Natriuretic Peptide 30 pg/mL (<100)
--- NOTE | 2022-03-25 14:56 | PC.NURSE ---
Patient tolerated magnesium sulfate with no adverse effect, IVF running with no adverse effect noted will CTM
[2022-03-25 15:04] LABS: Lactic Acid 0.9 mmol/L (0.5-2.0)
[2022-03-25] MEDS: Ipratropium Bromide 0.5 MG/2.5 ML SOLUTION INHALE (15:05)
[2022-03-25] MEDS: Albuterol Sulfate 7.5 MG, Albuterol Sulfate (0.083%) 2.5 MG 10 MG INHALE (15:06)
--- NOTE | 2022-03-25 16:36 | PM.IMHP ---
History of Present Illness Date of Service: 03/25/22 Attending physician on admission: Marnie Huang Chief Complaint: sob 81-year-old male with history of bronchiectasis, COPD, 2 L of supplemental oxygen at home, HFpEF, HTN, GERD, paroxysmal atrial fibrillation no anticoagulation(had recent hemoptysis as per Cardiology note), history of acute on chronic respiratory failure, came in for increased shortness of breath and coughing with green sputum worsening over the past 3 months , no sick contact, no recent travel.? He says that he did not come to the hospital because he did not wanted to be from last 3 months, from last month or so she he said he has cough is getting worse and he feel more tired which further inquiry seems like also from couple of months going on. Even with the american sign language interpreter patient seems to be a very poor historian his more focused to get done his lung surgery as per patient. Currently feels very tired and says that he is short of breath with minimal exertion and aggressive cough with sputum,? Could not tell which color of sputum. He is saying many cups also has pain. Lab imaging a reviewed: ? Mild leukocytosis seems chronic BMP seems fine Chest x-ray: Seems chronic changes not significant any acute finding. BNP normal, EKG shows sinus tachycardia , otherwise similar before Review of Systems Review of Systems: Yes all other systems are reviewed and are negative [facility] Medical History BPH loc w urin obs/LUTS Bronchiectasis Bronchiectasis with (acute) exacerbation Bronchitis Congestive heart failure COPD (chronic obstructive pulmonary disease) COPD (chronic obstructive pulmonary disease) COPD (chronic obstructive pulmonary disease) COPD exacerbation Dysuria Essential hypertension GERD (gastroesophageal reflux disease) Glaucoma Hearing loss Hernia History of MAC infection Hypoxia Kidney stone on left side JESSA (mycobacterium avium-intracellulare) NICM (nonischemic cardiomyopathy) Paroxysmal atrial fibrillation Pure hypercholesterolemia Urinary retention Family History Father No problems noted. Mother Medical history unknown Sister Diabetes Daughter In good health Son In good health Brother No problems noted. Surgical History History of bronchoscopy History of colonoscopy History of cystoscopy History of lumbar surgery History of rectal polypectomy Social History Household Members: None Housing: Apartment Do you presently have visiting nurse or other home services: Yes ([employer]) Alcohol intake: unknown Patient Tobacco Use Status: Former Tobacco user Quit Date: 6 years ago Smoked in Last 30 Days: No e-Cigarette/Vaping Use: Never Used Second Hand Smoke Exposure: No Use of substances other than those prescribed or required for medical reasons: No Currently Displaying Signs/Symptoms of Drug Intoxication Withdrawal: No Any prior treatment program specific to substance use: No Have you been hit, kicked, punched, or otherwise hurt by someone within the past year? If so, by whom?: No Do you feel safe in your current relationship?: No Is there a partner from a previous relationship who is making you feel unsafe now?: No Are you made to feel afraid or neglected: No Advance Directives: Yes Advance Directives Information Provided: Yes Advance Directives on File: Yes Advance Directives Date on File: 07/12/21 Do you have thoughts of harming others: None Do you have a plan to hurt others: No Plan Recently lost weight without trying: Yes How much weight loss: 2-13 pounds Eating poorly because of decreased appetite: Yes Nutrition screen score: 4 Nutrition Risks: No Nutritional Risk service: No Current occupational status: disabled Cognitive needs: No Hearing needs: Yes Vision needs: Yes Meds Allergies Allergy/AdvReac Type Severity Reaction Status Date / Time Penicillins [PENICILLINS] Allergy Intermediate PASSED Verified 03/20/22 13:54 OUT trazodone Allergy Intermediate tremors Verified 03/20/22 13:54 Active Medications: Current Medications Albuterol Sulfate 2.5 mg/ (Ipratropium [place] 0.5 mg) 0 mg INHALE RQ4H WHILE AWAKE TON Albuterol Sulfate 2.5 mg/ (Ipratropium [place] 0.5 mg) 0 mg INHALE Q3H PRN PRN Reason: sob Furosemide (Furosemide 20 Mg/2 Ml Vial) 20 mg IVPUSH ONCE ONE; Protocol Stop: 03/25/22 16:27 Guaifenesin/Codeine Phosphate (Guaifen/Codeine Sf 200/20/10ml 10 Ml Liquid) 10 ml PO Q4H [facility] Methylprednisolone Sodium Succinate (Methylprednisolone Sod Succ 40 Mg/Ml Vial) 40 mg IVPUSH BID [facility] Pharmacy Consult (Consult Rx Perform Med Rec) 1 each MISCELLANE ONCE PRN PRN Reason: Consult order Pharmacy Consult (Consult Rx Perform Med Rec) 1 each MISCELLANE ONCE PRN PRN Reason: Consult order Sodium Chloride (0.9 % Sodium Chloride Flush 3 Ml Syringe) 3 ml IVFLUSH QSHIFT [facility] Home Medications Medication Instructions Recorded Confirmed Last Taken Type brimonidine 0.2 %-timolol 0.5 % 1 drp ophthalmic (eye) BID 03/08/21 03/25/22 03/24/22 History eye drops (Combigan) travoprost 0.004 % eye drops 1 drp ophthalmic (eye) BEDTIME 03/08/21 03/25/22 03/24/22 History doxycycline hyclate 100 mg tablet 100 mg PO MOWEFR 03/20/22 03/25/22 03/24/22 History apixaban 5 mg tablet (Eliquis) 1 tab PO BID 03/25/22 Unknown History mirabegron 25 mg tablet,extended 1 tab PO DAILY 03/25/22 03/25/22 03/24/22 History release 24 hr (Myrbetriq) omeprazole 40 mg capsule,delayed 40 mg PO DAILY@0630 03/25/22 03/25/22 03/24/22 History release Physical Exam Vital Signs and Narrative: Vital Signs: Last Vital Signs Temp 98.4 F 03/25/22 13:36 Pulse 97 03/25/22 15:07 Resp 22 H 03/25/22 15:07 BP 148/74 H 03/25/22 15:07 Pulse Ox 94 03/25/22 15:07 O2 Del Method 03/25/22 15:07 O2 Flow Rate 2 03/25/22 15:07 Oxygen Flow Rate 2 03/25/22 13:36 BMI result Body Mass Index 24.2 Appearance: Alert.? Oriented X3.? mouth bretahin ,otherwise talking comfortably? Eyes: Pupils equal, round and reactive to light.? Sclera nonicteric.? ENT: Pharynx normal.? Moist mucous membranes. cvs: rrr, [id number] . res: air entry seems fair ,has b/l rhonchii abd: no rebound or guarding ,nt, bs present. ext pulses present , no cyanosis. neuro: axo3 , nonfocal. Results Labs 03/25/22 13:34 03/25/22 13:34 Labs: Laboratory Results - last 24 hr 03/25/22 03/25/22 03/25/22 13:34 13:34 13:34 MCV 85.5 MCH 26.1 L MCHC 30.5 L RDW 14.1 Plt Count 297 MPV 9.2 L Immature Gran % (Auto) 0.4 Neut % (Auto) 81.8 H Lymph % (Auto) 5.2 L [place] % (Auto) 6.2 Eos % (Auto) 5.9 H Baso % (Auto) 0.5 Lymph # (Auto) 0.8 L [place] # (Auto) 0.9 Eos # (Auto) 0.9 H Baso # (Auto) 0.1 Abs Immat Gran (auto) 0.06 H Absolute Neuts (auto) 12.4 H Absolute Nucleated RBC 0.000 Nucleated RBC % (auto) 0.0 Anion Gap 10 L Estim Creat Clear Calc 74.0 Estimated GFR > 60 Random Glucose 141 H Lactic Acid Calcium 8.7 D Total Bilirubin 0.3 AST 14 ALT 12 Alkaline Phosphatase 70 Troponin I High Sens 3.5 B-Natriuretic Peptide Total Protein 7.4 Albumin 3.5 Influenza Type A (PCR) Influenza Type B (PCR) RSV RNA Qual (PCR) SARS-CoV-2 RNA (RT-PCR) 03/25/22 03/25/22 03/25/22 13:34 13:48 14:23 MCV MCH MCHC RDW Plt Count MPV Immature Gran % (Auto) Neut % (Auto) Lymph % (Auto) [place] % (Auto) Eos % (Auto) Baso % (Auto) Lymph # (Auto) [place] # (Auto) Eos # (Auto) Baso # (Auto) Abs Immat Gran (auto) Absolute Neuts (auto) Absolute Nucleated RBC Nucleated RBC % (auto) Anion Gap Estim Creat Clear Calc Estimated GFR Random Glucose Lactic Acid 0.9 Calcium Total Bilirubin AST ALT Alkaline Phosphatase Troponin I High Sens B-Natriuretic Peptide 30 Total Protein Albumin Influenza Type A (PCR) NEGATIVE Influenza Type B (PCR) NEGATIVE RSV RNA Qual (PCR) NEGATIVE SARS-CoV-2 RNA (RT-PCR) NEGATIVE Imaging Radiologist's Impressions: Impressions Chest X-Ray 03/25/22 14:10 IMPRESSION: * Again seen are findings of extensive chronic underlying lung disease with emphysema, bronchiectasis and cystic change, which limits assessment for any superimposed acute findings however no definite new consolidation is appreciated. * Possible trace right pleural effusion versus pleural parenchymal thickening similar to prior. Assessment and Plan (1) COPD exacerbation: Status: Acute Plan 81-year-old male with history of bronchiectasis, , HFpEF, HTN, GERD, paroxysmal atrial fibrillation were no anticoagulation(had recent hemoptysis as per Cardiology note), chronic respiratory failuresec to COPD, 2 L of supplemental oxygen at home. 1. Possible mild COPD exacerbation since has worsening of somewhat cough and phlegm Continue IV steroids, nebs, received Levaquin in the ED. Not septic, tachycardia due to nebs, leukocytosis seems chronic. Pulmonary elevation-history of bronchiectasis and recurrent exacerbations-getting evaluate for lung reduction surgery. 2.HFpEF/cmp: Continue home -coreg/entersto. 3.paroxysmal atrial fibrillation were no anticoagulation(had recent hemoptysis as per Cardiology note). holter -was sinus . Currently in sinus rhythm continue coreg. 4.GERD: Says med reconciliation pending DVT prophylaxis: Mechanical devices since has hemoptysis history. Above management discussed the patient in detail length she understand and in agreement with the above plan, time spent 70 minute, patient full code. Patient will benefit from 2 midnight stays since has COPD exacerbation-may need longer IV steroids and nebs course. Time Spent With Patient Time: Total time managing care of this patient today ____ minutes. Quality Stroke Does the patient have a stroke diagnosis?: No VTE Prior VTE?: No VTE Risk Level:: Medical - moderate - high VTE Device Contraindication: N/A - Device Ordered VTE Drug Contraindication: N/A - Med Ordered
--- NOTE | 2022-03-25 18:04 | PHA.MEDREC ---
Pharmacy Consult ? Medication Reconciliation Pharmacy has completed the medication reconciliation. Utilized resource management planner services. Patient had a list with them of their medications. Patient reports still being on Myrbetriq 25mg ER daily. Patient reports to still be on Eliquis, however leaving unconfirmed as recent office visit with Dr. Byers on 03/20/22 states that the patient did not seem to be on any anticoagulation.
[2022-03-25] MEDS: Enoxaparin Sodium 40 MG/0.4 ML SYRINGE SUBCUT (18:06)
[2022-03-25] MEDS: Furosemide 20 MG/2 ML VIAL IVPUSH (18:07)
[2022-03-25] MEDS: guaiFEN/Codeine SF 200/20/10ML 10 ML LIQUID PO ×2 (18:07→21:58)
--- NOTE | 2022-03-25 18:16 | PC.NURSE ---
Patient sitting on edge of bed no distress noted tolerated PO food and fluids cough medical front desk coordinator with good effect will CTM
[2022-03-25] MEDS: carvediloL 12.5 MG TABLET PO (21:58)
[2022-03-25] MEDS: methylPREDNISolone Sod Succ 40 MG/ML VIAL IVPUSH (21:58)
[2022-03-25] MEDS: Docusate Sodium 100 MG CAPSULE PO (21:58)
[2022-03-25] MEDS: Sacubitril/Valsartan 24/26 1 TAB TABLET PO (21:59)
[2022-03-25] MEDS: 0.9 % Sodium Chloride Flush 3 ML SYRINGE IVFLUSH (22:09)
[2022-03-26] VITALS (8 sets, daily range): BP systolic 113–128; BP diastolic 55–75; PULSE 66–99; RESP 14–18; TEMP 36.4–36.8; O2SAT 95–99
[2022-03-26] MEDS: guaiFEN/Codeine SF 200/20/10ML 10 ML LIQUID PO ×7 (01:55→23:59)
[2022-03-26] MEDS: Omeprazole 40 MG CAPSULE.DR PO (05:57)
[2022-03-26] MEDS: methylPREDNISolone Sod Succ 40 MG/ML VIAL IVPUSH ×2 (07:31→20:12)
[2022-03-26] MEDS: Sacubitril/Valsartan 24/26 1 TAB TABLET PO ×2 (07:35→20:12)
[2022-03-26] MEDS: Tamsulosin HCL 0.4 MG CAPSULE PO (07:35)
[2022-03-26] MEDS: Pravastatin Sodium 10 MG TABLET PO (07:35)
[2022-03-26] MEDS: Finasteride 5 MG TABLET PO (07:35)
[2022-03-26] MEDS: Docusate Sodium 100 MG CAPSULE PO ×2 (07:36→20:12)
[2022-03-26] MEDS: carvediloL 12.5 MG TABLET PO ×2 (07:36→20:12)
[2022-03-26] MEDS: Mirabegron 25 MG TAB.ER.24H PO (07:36)
--- NOTE | 2022-03-26 10:31 | HO.PM.IMPN ---
Subjective Subjective Date of Service: 03/27/22 Interval History: COPD exacerbation Review of Systems Patient still short of breath ,aggressive cough Denies any fever chills or nausea vomiting Physical Exam Vital Signs: Vital Signs: Last Vital Signs Temp 97.9 F 03/26/22 07:13 Pulse 98 03/26/22 07:47 Resp 16 03/26/22 07:47 BP 128/75 03/26/22 07:13 Pulse Ox 98 03/26/22 07:13 O2 Del Method 03/26/22 07:13 O2 Flow Rate 2 03/26/22 07:13 Oxygen Flow Rate 2 03/25/22 13:36 BMI result Body Mass Index 24.2 Appearance: Alert.? Oriented X3.? sob cvs: rrr, [id number] . res: air entry seems? fair ,has b/l rhonchii abd: no rebound or guarding ,nt, bs present. ext pulses present , no cyanosis. neuro: axo3 , nonfoca Objective Data Active Medications Albuterol Sulfate (Albuterol Sulfate 90 Mcg 8 Gm Inhaler) 2 puff INHALE Q4H PRN PRN Reason: shortness of breath or wheezing Brimonidine Tartrate (Brimonidine Tartrate 0.2% Oph 5 Ml Bottle) 1 drop EYE-BOTH BID [facility] Last Admin: 03/26/22 07:31 Dose: Not Given Documented By: KERRY Non-Admin Reason: pt used own drops at bedside Carvedilol (Carvedilol 12.5 Mg Tablet) 12.5 mg PO BID [facility]; Protocol Last Admin: 03/26/22 07:36 Dose: 12.5 mg Documented By: KERYR Albuterol Sulfate 2.5 mg/ (Ipratropium [place] 0.5 mg) 0 mg INHALE RQ4H WHILE AWAKE [facility] Last Admin: 03/26/22 07:44 Dose: 1 each Documented By: HESHAM Albuterol Sulfate 2.5 mg/ (Ipratropium [place] 0.5 mg) 0 mg INHALE Q3H PRN PRN Reason: sob Docusate Sodium (Docusate Sodium 100 Mg Capsule) 100 mg PO BID [facility] Last Admin: 03/26/22 07:36 Dose: 100 mg Documented By: KERRY Enoxaparin Sodium (Enoxaparin Sodium 40 Mg/0.4 Ml Syringe) 40 mg SUBCUT Q24H [facility] Last Admin: 03/25/22 18:06 Dose: 40 mg Documented By: VICKI Finasteride (Finasteride 5 Mg Tablet) 5 mg PO DAILY [facility] Last Admin: 03/26/22 07:35 Dose: 5 mg Documented By: KERRY Guaifenesin/Codeine Phosphate (Guaifen/Codeine Sf 200/20/10ml 10 Ml Liquid) 10 ml PO Q4H [facility] Last Admin: 03/26/22 07:35 Dose: 10 ml Documented By: KERRY Latanoprost (Latanoprost 0.005 % Ophth Thalia 2.5 Ml Drops) 1 drop EYE-BOTH BEDTIME [facility] Last Admin: 03/25/22 22:06 Dose: Not Given Documented By: HAYLEY Non-Admin Reason: Med Not Available Methylprednisolone Sodium Succinate (Methylprednisolone Sod Succ 40 Mg/Ml Vial) 40 mg IVPUSH BID [facility] Last Admin: 03/26/22 07:31 Dose: 40 mg Documented By: KERRY Mirabegron (Mirabegron 25 Mg Tab.Er.24h) 25 mg PO DAILY [facility] Last Admin: 03/26/22 07:36 Dose: 25 mg Documented By: KERRY Omeprazole (Omeprazole 40 Mg Capsule.Dr) 40 mg PO DAILY@0630 [facility] Last Admin: 03/26/22 05:57 Dose: 40 mg Documented By: HAYLEY Pharmacy Consult (Consult Rx Perform Med Rec) 1 each MISCELLANE ONCE PRN PRN Reason: Consult order Pharmacy Consult (Consult Rx Perform Med Rec) 1 each MISCELLANE ONCE PRN PRN Reason: Consult order Polyethylene Glycol (Polyethylene Glycol 3350 17 Gm Powd.Pack) 17 gm PO DAILY PRN PRN Reason: constipation Pravastatin Sodium (Pravastatin Sodium 10 Mg Tablet) 10 mg PO DAILY [facility] Last Admin: 03/26/22 07:35 Dose: 10 mg Documented By: KERRY Sacubitril/Valsartan (Sacubitril/Valsartan 1 Tab Tablet) 1 tab PO BID [facility]; Protocol Last Admin: 03/26/22 07:35 Dose: 1 tab Documented By: KERRY Sodium Chloride (0.9 % Sodium Chloride Flush 3 Ml Syringe) 3 ml IVFLUSH QSHIFT [facility] [place] Last Admin: 03/25/22 22:09 Dose: 3 ml Documented By: HAYLEY Tamsulosin HCl (Tamsulosin Hcl 0.4 Mg Capsule) 0.4 mg PO DAILY [facility] [place] Last Admin: 03/26/22 07:35 Dose: 0.4 mg Documented By: KERRY Timolol Maleate (Timolol Maleate 0.5 % Oph Thalia 5 Ml Drbtl) 1 drop EYE-BOTH BID [facility] [place] Last Admin: 03/25/22 22:07 Dose: Not Given Documented By: HAYLEY Non-Admin Reason: pt states am med Labs 03/25/22 13:34 03/25/22 13:34 Labs: Laboratory Results - last 24 hr 03/25/22 03/25/22 03/25/22 13:34 13:34 13:34 MCV 85.5 MCH 26.1 L MCHC 30.5 L RDW 14.1 Plt Count 297 MPV 9.2 L Immature Gran % (Auto) 0.4 Neut % (Auto) 81.8 H Lymph % (Auto) 5.2 L Bertie % (Auto) 6.2 Eos % (Auto) 5.9 H Baso % (Auto) 0.5 Lymph # (Auto) 0.8 L Bertie # (Auto) 0.9 Eos # (Auto) 0.9 H Baso # (Auto) 0.1 Abs Immat Gran (auto) 0.06 H Absolute Neuts (auto) 12.4 H Absolute Nucleated RBC 0.000 Nucleated RBC % (auto) 0.0 Anion Gap 10 L Estim Creat Clear Calc 74.0 Estimated GFR > 60 Random Glucose 141 H Lactic Acid Calcium 8.7 D Total Bilirubin 0.3 AST 14 ALT 12 Alkaline Phosphatase 70 Troponin I High Sens 3.5 B-Natriuretic Peptide Total Protein 7.4 Albumin 3.5 Influenza Type A (PCR) Influenza Type B (PCR) RSV RNA Qual (PCR) SARS-CoV-2 RNA (RT-PCR) 03/25/22 03/25/22 03/25/22 13:34 13:48 14:23 MCV MCH MCHC RDW Plt Count MPV Immature Gran % (Auto) Neut % (Auto) Lymph % (Auto) Bertie % (Auto) Eos % (Auto) Baso % (Auto) Lymph # (Auto) Bertie # (Auto) Eos # (Auto) Baso # (Auto) Abs Immat Gran (auto) Absolute Neuts (auto) Absolute Nucleated RBC Nucleated RBC % (auto) Anion Gap Estim Creat Clear Calc Estimated GFR Random Glucose Lactic Acid 0.9 Calcium Total Bilirubin AST ALT Alkaline Phosphatase Troponin I High Sens B-Natriuretic Peptide 30 Total Protein Albumin Influenza Type A (PCR) NEGATIVE Influenza Type B (PCR) NEGATIVE RSV RNA Qual (PCR) NEGATIVE SARS-CoV-2 RNA (RT-PCR) NEGATIVE Assessment and Plan (1) Bronchiectasis with (acute) exacerbation: Status: Acute (2) COPD exacerbation: Status: Acute Plan 81-year-old male with history of bronchiectasis, , HFpEF, HTN, GERD, paroxysmal atrial fibrillation were no anticoagulation(had recent hemoptysis as per Cardiology note), chronic respiratory failuresec to COPD, 2 L of supplemental oxygen at home. 1. Possible mild COPD exacerbation since has worsening of somewhat cough and phlegm Continue IV steroids, nebs, received Levaquin in the ED. Not septic, tachycardia due to nebs, leukocytosis seems chronic. Pulmonary evaluation-?patient bronchiectasis with recurrent ESBL infections, also COPD supplemental oxygen 2 L dependent, now being evaluated for lung volume reduction surgery by thoracic surgery, seems like has exacerbation of his underlying bronchiectasis. pulm ? Recommendations:? Switch levofloxacin to meropenem based on prior cultures.? Would suggest placement of PICC and total of 14 days of carbapenem therapy.? Taper of systemic glucocorticoids.? Continue nebulized bronchodilators. 2.HFpEF/cmp: Continue home -coreg/entersto. 3.paroxysmal atrial fibrillation were no anticoagulation(had recent hemoptysis as per Cardiology note). holter -was sinus . Currently in sinus rhythm continue coreg. 4.GERD: continue home meds DVT prophylaxis:? Mechanical devices since has hemoptysis history. on going hospitlisation need - stays since has COPD exacerbation-may need longer IV steroids and nebs course, iv antibiotics for bronchiectasis with recurrent ESBL infections-pulm suggested iv antibiotics for 2 days -will need picc line once blood cultures negative. Time Spent With Patient Time: Total time managing care of this patient today ____ minutes. Quality Stroke Does the patient have a stroke diagnosis?: No VTE Prior VTE?: No VTE Risk Level:: Medical - moderate - high VTE Device Contraindication: N/A - Device Ordered VTE Drug Contraindication: N/A - Med Ordered
--- NOTE | 2022-03-26 12:46 | PM.CNPUL ---
History of Present Illness History of Present Illness Consult date: 03/26/22 Requesting physician: Marnie Huang Chief complaint: COPD exacerbation Narrative: 81-year-old gentleman with underlying COPD on supplemental oxygen 2 L, bronchiectasis prior JESSA status post partial treatment, prior bronchiectasis exacerbation with ESBL E coli status post PICC placement and ertapenem with good clinical response, now admitted on 03/25/2022 with worsening dyspnea, cough productive of sputum. he has been started on Levaquin, systemic glucocorticoids and nebulized bronchodilators. Today he reports somewhat improved symptoms. Patient is also being evaluated by thoracic surgery for possible lung volume reduction surgery. Review of Systems Constitutional: Constitutional: Denies daytime sleepiness, Denies excessive sweating, Denies fatigue, Denies fever(s), Denies lethargy, Denies malaise, Denies night sweats, Denies snoring and Denies weight loss Eyes: Eyes: Denies blurry vision and Denies itchy eyes ENT: Denies nasal congestion, Denies post nasal drip, Denies sinus pain, Denies sinus pressure and Denies other ( Thrush) Cardiovascular: Cardiovascular: Denies chest pain, Denies pedal edema, Denies dyspnea, Denies orthopnea and Denies paroxysmal nocturnal dyspnea Respiratory: Respiratory: Reports cough, Denies hemoptysis, Reports excessive phlegm production, Denies dyspnea, Denies snoring and Denies wheezing Gastrointestinal: Gastrointestinal: Denies abdominal pain and Denies heartburn Musculoskeletal: Musculoskeletal: Denies myalgias, Denies arthralgias and Denies joint swelling Integumentary/Breasts: Skin/Breast: Denies rash Neurologic: Denies memory loss and Denies seizure-like activity Psychiatric: Psychiatric: Denies abnormal sleep pattern, Denies anxiety and Denies memory loss Endocrine: Endocrine: Denies excessive sweating, Denies fatigue and Denies heat intolerance Hematologic/Lymphatic: Hematologic/Lymphatic: Denies easy bruising Allergic/Immunologic: Allergic/Immunologic: Denies itchy eyes, Denies seasonal rhinorrhea and Denies wheezing PMFSH Past Medical History Medical History (Updated 03/26/22 @ 12:49 by Brent Duenas MD) BPH loc w urin obs/LUTS Bronchiectasis Bronchiectasis with (acute) exacerbation Bronchitis Congestive heart failure COPD (chronic obstructive pulmonary disease) COPD (chronic obstructive pulmonary disease) COPD (chronic obstructive pulmonary disease) COPD exacerbation Dysuria Essential hypertension GERD (gastroesophageal reflux disease) Glaucoma Hearing loss Hernia History of MAC infection Hypoxia Kidney stone on left side JESSA (mycobacterium avium-intracellulare) NICM (nonischemic cardiomyopathy) Paroxysmal atrial fibrillation Pure hypercholesterolemia Urinary retention Family History Family History Father No problems noted. Mother Medical history unknown Sister Diabetes Daughter In good health Son In good health Brother No problems noted. Surgical History Surgical History History of bronchoscopy History of colonoscopy History of cystoscopy History of lumbar surgery History of rectal polypectomy Social History Social History Household Members: None Housing: Apartment Do you presently have visiting nurse or other home services: Yes ([employer]) Alcohol intake: unknown Patient Tobacco Use Status: Former Tobacco user Quit Date: 6 years ago Smoked in Last 30 Days: No e-Cigarette/Vaping Use: Never Used Second Hand Smoke Exposure: No Use of substances other than those prescribed or required for medical reasons: No Currently Displaying Signs/Symptoms of Drug Intoxication Withdrawal: No Any prior treatment program specific to substance use: No Have you been hit, kicked, punched, or otherwise hurt by someone within the past year? If so, by whom?: No Do you feel safe in your current relationship?: No Is there a partner from a previous relationship who is making you feel unsafe now?: No Are you made to feel afraid or neglected: No Advance Directives: Yes Advance Directives Information Provided: Yes Advance Directives on File: Yes Advance Directives Date on File: 07/12/21 Do you have thoughts of harming others: None Do you have a plan to hurt others: No Plan Recently lost weight without trying: Yes How much weight loss: 2-13 pounds Eating poorly because of decreased appetite: Yes Nutrition screen score: 4 Nutrition Risks: No Nutritional Risk service: No Current occupational status: disabled Cognitive needs: No Hearing needs: Yes Vision needs: Yes Meds Allergies Allergy/AdvReac Type Severity Reaction Status Date / Time Penicillins [PENICILLINS] Allergy Intermediate PASSED Verified 03/20/22 13:54 OUT trazodone Allergy Intermediate tremors Verified 03/20/22 13:54 Active Medications: Current Medications Albuterol Sulfate (Albuterol Sulfate 90 Mcg 8 Gm Inhaler) 2 puff INHALE Q4H PRN PRN Reason: shortness of breath or wheezing Brimonidine Tartrate (Brimonidine Tartrate 0.2% Oph 5 Ml Bottle) 1 drop EYE-BOTH BID [facility] Last Admin: 03/26/22 07:31 Dose: Not Given Carvedilol (Carvedilol 12.5 Mg Tablet) 12.5 mg PO BID [facility]; Protocol Last Admin: 03/26/22 07:36 Dose: 12.5 mg Albuterol Sulfate 2.5 mg/ (Ipratropium [place] 0.5 mg) 0 mg INHALE RQ4H WHILE AWAKE [facility] Last Admin: 03/26/22 11:18 Dose: 1 each Albuterol Sulfate 2.5 mg/ (Ipratropium [place] 0.5 mg) 0 mg INHALE Q3H PRN PRN Reason: sob Docusate Sodium (Docusate Sodium 100 Mg Capsule) 100 mg PO BID [facility] Last Admin: 03/26/22 07:36 Dose: 100 mg Enoxaparin Sodium (Enoxaparin Sodium 40 Mg/0.4 Ml Syringe) 40 mg SUBCUT Q24H [facility] Last Admin: 03/25/22 18:06 Dose: 40 mg Finasteride (Finasteride 5 Mg Tablet) 5 mg PO DAILY [facility] Last Admin: 03/26/22 07:35 Dose: 5 mg Guaifenesin/Codeine Phosphate (Guaifen/Codeine Sf 200/20/10ml 10 Ml Liquid) 10 ml PO Q4H [facility] Last Admin: 03/26/22 12:30 Dose: 10 ml Meropenem 1 gm/ Sodium (Chloride) 100 mls @ 200 mls/hr IV Q8H [facility] Latanoprost (Latanoprost 0.005 % Ophth Thalia 2.5 Ml Drops) 1 drop EYE-BOTH BEDTIME [facility] Last Admin: 03/25/22 22:06 Dose: Not Given Methylprednisolone Sodium Succinate (Methylprednisolone Sod Succ 40 Mg/Ml Vial) 40 mg IVPUSH BID [facility] Last Admin: 03/26/22 07:31 Dose: 40 mg Mirabegron (Mirabegron 25 Mg Tab.Er.24h) 25 mg PO DAILY [facility] Last Admin: 03/26/22 07:36 Dose: 25 mg Omeprazole (Omeprazole 40 Mg Capsule.Dr) 40 mg PO DAILY@0630 [facility] Last Admin: 03/26/22 05:57 Dose: 40 mg Pharmacy Consult (Consult Rx Perform Med Rec) 1 each MISCELLANE ONCE PRN PRN Reason: Consult order Pharmacy Consult (Consult Rx Perform Med Rec) 1 each MISCELLANE ONCE PRN PRN Reason: Consult order Polyethylene Glycol (Polyethylene Glycol 3350 17 Gm Powd.Pack) 17 gm PO DAILY PRN PRN Reason: constipation Pravastatin Sodium (Pravastatin Sodium 10 Mg Tablet) 10 mg PO DAILY [facility] Last Admin: 03/26/22 07:35 Dose: 10 mg Sacubitril/Valsartan (Sacubitril/Valsartan 1 Tab Tablet) 1 tab PO BID [facility]; Protocol Last Admin: 03/26/22 07:35 Dose: 1 tab Sodium Chloride (0.9 % Sodium Chloride Flush 3 Ml Syringe) 3 ml IVFLUSH QSHIFT [facility] Last Admin: 03/26/22 10:59 Dose: Not Given Tamsulosin HCl (Tamsulosin Hcl 0.4 Mg Capsule) 0.4 mg PO DAILY [facility] Last Admin: 03/26/22 07:35 Dose: 0.4 mg Timolol Maleate (Timolol Maleate 0.5 % Oph Thalia 5 Ml Drbtl) 1 drop EYE-BOTH BID [facility] Last Admin: 03/26/22 10:58 Dose: Not Given Home Medications Medication Instructions Recorded Confirmed Last Taken Type brimonidine 0.2 %-timolol 0.5 % 1 drp ophthalmic (eye) BID 03/08/21 03/25/22 03/24/22 History eye drops (Combigan) travoprost 0.004 % eye drops 1 drp ophthalmic (eye) BEDTIME 03/08/21 03/25/22 03/24/22 History doxycycline hyclate 100 mg tablet 100 mg PO MOWEFR 03/20/22 03/25/22 03/24/22 History apixaban 5 mg tablet (Eliquis) 1 tab PO BID 03/25/22 Unknown History mirabegron 25 mg tablet,extended 1 tab PO DAILY 03/25/22 03/25/22 03/24/22 History release 24 hr (Myrbetriq) omeprazole 40 mg capsule,delayed 40 mg PO DAILY@0630 03/25/22 03/25/22 03/24/22 History release Physical Exam Vital Signs: Vital Signs: Last Vital Signs Temp 97.9 F 03/26/22 07:13 Pulse 98 03/26/22 11:20 Resp 16 03/26/22 11:20 BP 128/75 03/26/22 07:13 Pulse Ox 98 03/26/22 07:13 O2 Del Method 03/26/22 07:13 O2 Flow Rate 2 03/26/22 07:13 Oxygen Flow Rate 2 03/25/22 13:36 BMI result Body Mass Index 24.2 Const: General: no acute distress and alert Nutritional Appearance: not obese Orientation/consciousness: Other orientation findings ( oriented) HEENT: Head: Yes atraumatic Mouth: no other ( thrush) Throat: No postnasal drainage Eyes: General: appearance normal, both eyes and all related structures Sclerae: sclerae normal EOM: EOMs intact bilaterally Neck: Neck: Yes supple Lymphatic: no lymphadenopathy noted Resp: Effort & Inspection: normal respiratory effort and no use of accessory muscles Auscultation: clear to auscultation bilaterally Cardio: Rate: regular rate Rhythm: regular rhythm Heart sounds: no gallops, no murmurs and no rubs GI: Palpation (GI): Soft to palpation and Other GI palpation findings present ( nontender) Skin: General skin exam: other ( warm) Rashes: no rashes Extrem: General: No clubbing, No cyanosis and No edema Results Laboratory Findings 03/25/22 13:34 03/25/22 13:34 Abnormal lab findings: Abnormal Labs 03/25/22 03/25/22 13:34 13:34 WBC 15.1 H RBC 4.41 L Hgb 11.5 L Hct 37.7 L MCH 26.1 L MCHC 30.5 L MPV 9.2 L Neut % (Auto) 81.8 H Lymph % (Auto) 5.2 L Eos % (Auto) 5.9 H Lymph # (Auto) 0.8 L Eos # (Auto) 0.9 H Abs Immat Gran (auto) 0.06 H Absolute Neuts (auto) 12.4 H Anion Gap 10 L Random Glucose 141 H Assessment and Plan (1) Bronchiectasis with (acute) exacerbation: Status: Acute (2) COPD exacerbation: Status: Acute (3) Acute and chronic respiratory failure: Status: Acute (4) COPD (chronic obstructive pulmonary disease): Status: Acute (5) Supplemental oxygen dependent: Status: Acute (6) ESBL (extended spectrum beta-lactamase) producing bacteria infection: Status: Acute Plan Impression: 81-year-old gentleman with underlying bronchiectasis with recurrent ESBL infections, also COPD supplemental oxygen 2 L dependent, now being evaluated for lung volume reduction surgery by thoracic surgery, admitted on 03/25/2022 with exacerbation of his underlying bronchiectasis. Recommendations: Switch levofloxacin to meropenem based on prior cultures. Would suggest placement of PICC and total of 14 days of carbapenem therapy. Taper of systemic glucocorticoids. Continue nebulized bronchodilators. Time Spent With Patient Time: Total time managing care of this patient today ____ minutes. Procedures Date of Service Date of Service: 03/26/22
[2022-03-26] MEDS: 0.9 % Sodium Chloride Flush 3 ML SYRINGE IVFLUSH ×2 (17:31→23:04)
[2022-03-26] MEDS: Enoxaparin Sodium 40 MG/0.4 ML SYRINGE SUBCUT (17:31)
[2022-03-26] MEDS: timoloL maleate 0.5 % Oph Sol 5 ML DRBTL 1 DROP EYE-BOTH (20:09)
[2022-03-26] MEDS: Latanoprost 0.005 % Ophth Sol 2.5 ML DROPS 1 DROP EYE-BOTH (20:11)
[2022-03-27] VITALS (7 sets, daily range): BP systolic 101–118; BP diastolic 54–59; PULSE 58–90; RESP 16–20; TEMP 36.1–36.6; O2SAT 90–99
[2022-03-27] MEDS: Omeprazole 40 MG CAPSULE.DR PO (05:36)
[2022-03-27] MEDS: guaiFEN/Codeine SF 200/20/10ML 10 ML LIQUID PO ×5 (05:45→21:27)
--- NOTE | 2022-03-27 08:06 | P.PNIM_ITS ---
Subjective Subjective Date of Service: 03/27/22 Interval History: copd excerebation Review of Systems Patient still short of breath ,aggressive cough Denies any fever chills or nausea vomiting Physical Exam Vital Signs: Vital Signs: Last Vital Signs Temp 97.9 F 03/27/22 06:51 Pulse 68 03/27/22 07:48 Resp 18 03/27/22 07:48 BP 108/54 L 03/27/22 06:51 Pulse Ox 97 03/27/22 06:51 O2 Del Method 03/27/22 06:51 O2 Flow Rate 2 03/27/22 06:51 Oxygen Flow Rate 2 03/25/22 13:36 BMI result Body Mass Index 24.2 Appearance: Alert.? Oriented X3.? sob cvs: rrr, [id number] . res: air entry seems? fair ,has b/l rhonchii abd: no rebound or guarding ,nt, bs present. ext pulses present , no cyanosis. neuro: axo3 , nonfocal Objective Data Active Medications Albuterol Sulfate (Albuterol Sulfate 90 Mcg 8 Gm Inhaler) 2 puff INHALE Q4H PRN PRN Reason: shortness of breath or wheezing Brimonidine Tartrate (Brimonidine Tartrate 0.2% Oph 5 Ml Bottle) 1 drop EYE- BOTH BID [facility] Last Admin: 03/26/22 20:13 Dose: Not Given Documented By: KERRY Non-Admin Reason: pt used own drops at bedside Carvedilol (Carvedilol 12.5 Mg Tablet) 12.5 mg PO BID [facility]; Protocol Last Admin: 03/26/22 20:12 Dose: 12.5 mg Documented By: KERRY Albuterol Sulfate 2.5 mg/ (Ipratropium [place] 0.5 mg) 0 mg INHALE RQ4H WHILE AWAKE [facility] Last Admin: 03/27/22 07:45 Dose: 2.5 each Documented By: TAYLOR Albuterol Sulfate 2.5 mg/ (Ipratropium [place] 0.5 mg) 0 mg INHALE Q3H PRN PRN Reason: sob Docusate Sodium (Docusate Sodium 100 Mg Capsule) 100 mg PO BID [facility] Last Admin: 03/26/22 20:12 Dose: 100 mg Documented By: KERRY Enoxaparin Sodium (Enoxaparin Sodium 40 Mg/0.4 Ml Syringe) 40 mg SUBCUT Q24H [facility] Last Admin: 03/26/22 17:31 Dose: 40 mg Documented By: KERRY Finasteride (Finasteride 5 Mg Tablet) 5 mg PO DAILY [facility] Last Admin: 03/26/22 07:35 Dose: 5 mg Documented By: KERRY Guaifenesin/Codeine Phosphate (Guaifen/Codeine Sf 200/20/10ml 10 Ml Liquid) 10 ml PO Q4H [facility] Last Admin: 03/27/22 05:45 Dose: 10 ml Documented By: LANDON Meropenem 1 gm/ Sodium (Chloride) 100 mls @ 200 mls/hr IV Q8H [facility] Last Infusion: 03/27/22 06:14 Dose: 0 mls/hr Documented By: LANDON Latanoprost (Latanoprost 0.005 % Ophth Thalia 2.5 Ml Drops) 1 drop EYE-BOTH BEDTIME [facility] Last Admin: 03/26/22 20:11 Dose: 1 drop Documented By: KERRY Methylprednisolone Sodium Succinate (Methylprednisolone Sod Succ 40 Mg/Ml Vial) 40 mg IVPUSH BID [facility] Last Admin: 03/26/22 20:12 Dose: 40 mg Documented By: KERRY Mirabegron (Mirabegron 25 Mg Tab.Er.24h) 25 mg PO DAILY [facility] Last Admin: 03/26/22 07:36 Dose: 25 mg Documented By: KERRY Omeprazole (Omeprazole 40 Mg Capsule.Dr) 40 mg PO DAILY@0630 [facility] Last Admin: 03/27/22 05:36 Dose: 40 mg Documented By: LANDON Pharmacy Consult (Consult Rx Perform Med Rec) 1 each MISCELLANE ONCE PRN PRN Reason: Consult order Pharmacy Consult (Consult Rx Perform Med Rec) 1 each MISCELLANE ONCE PRN PRN Reason: Consult order Polyethylene Glycol (Polyethylene Glycol 3350 17 Gm Powd.Pack) 17 gm PO DAILY PRN PRN Reason: constipation Pravastatin Sodium (Pravastatin Sodium 10 Mg Tablet) 10 mg PO DAILY [facility] Last Admin: 03/26/22 07:35 Dose: 10 mg Documented By: KERRY Sacubitril/Valsartan (Sacubitril/Valsartan 1 Tab Tablet) 1 tab PO BID [facility]; Protocol Last Admin: 03/26/22 20:12 Dose: 1 tab Documented By: KERRY Sodium Chloride (0.9 % Sodium Chloride Flush 3 Ml Syringe) 3 ml IVFLUSH QSHIFT [facility] Last Admin: 03/26/22 23:04 Dose: 3 ml Documented By: LANDON Tamsulosin HCl (Tamsulosin Hcl 0.4 Mg Capsule) 0.4 mg PO DAILY [facility] Last Admin: 03/26/22 07:35 Dose: 0.4 mg Documented By: KERRY Timolol Maleate (Timolol Maleate 0.5 % Oph Thalia 5 Ml Drbtl) 1 drop EYE-BOTH BID [facility] Last Admin: 03/26/22 20:09 Dose: 1 drop Documented By: KERRY Labs 03/25/22 13:34 03/25/22 13:34 Microbiology Microbiology Results: Microbiology 03/25/22 14:26 Blood Culture - Preliminary Blood - Venous No growth after 24 hours. 03/25/22 14:23 Blood Culture - Preliminary Blood - Venous No growth after 24 hours. Assessment and Plan (1) Bronchiectasis with (acute) exacerbation: Status: Acute (2) COPD exacerbation: Status: Acute Plan 81-year-old male with history of bronchiectasis, , HFpEF, HTN, GERD, paroxysmal atrial fibrillation were no anticoagulation(had recent hemoptysis as per Cardiology note), chronic respiratory failuresec to COPD, 2 L of supplemental oxygen at home. 1. Possible mild COPD exacerbation since has worsening of somewhat cough and phlegm Continue IV steroids, nebs, received Levaquin in the ED. Not septic, tachycardia due to nebs, leukocytosis seems chronic. Pulmonary evaluation-?patient bronchiectasis with recurrent ESBL infections, also COPD supplemental oxygen 2 L dependent, now being evaluated for lung volume reduction surgery by thoracic surgery, seems like has exacerbation of his underlying bronchiectasis. pulm ? Recommendations:? Switch levofloxacin to meropenem based on prior cultures.? Would suggest placement of PICC and total of 14 days of carbapenem therapy.? Taper of systemic glucocorticoids.? Continue nebulized bronchodilators. 2.HFpEF/cmp: Continue home -coreg/entersto. 3.paroxysmal atrial fibrillation were no anticoagulation(had recent hemoptysis as per Cardiology note). holter -was sinus . Currently in sinus rhythm continue coreg. 4.GERD: continue home meds DVT prophylaxis:? Mechanical devices since has hemoptysis history. on going hospitlisation need - stays since has COPD exacerbation-may need longer IV steroids and nebs course, iv antibiotics for bronchiectasis with recurrent ESBL infections-pulm suggested iv antibiotics for 14 days -will need midline once blood cultures negative. Time Spent With Patient Time: Total time managing care of this patient today ____ minutes. Quality Stroke Does the patient have a stroke diagnosis?: No VTE Prior VTE?: No VTE Risk Level:: Medical - moderate - high VTE Device Contraindication: N/A - Device Ordered VTE Drug Contraindication: N/A - Med Ordered
[2022-03-27] MEDS: methylPREDNISolone Sod Succ 40 MG/ML VIAL IVPUSH (08:19)
[2022-03-27] MEDS: 0.9 % Sodium Chloride Flush 3 ML SYRINGE IVFLUSH ×3 (08:19→21:29)
[2022-03-27] MEDS: Mirabegron 25 MG TAB.ER.24H PO (08:20)
[2022-03-27] MEDS: Pravastatin Sodium 10 MG TABLET PO (08:20)
[2022-03-27] MEDS: Docusate Sodium 100 MG CAPSULE PO ×2 (08:20→21:27)
[2022-03-27] MEDS: Finasteride 5 MG TABLET PO (08:20)
[2022-03-27] MEDS: Tamsulosin HCL 0.4 MG CAPSULE PO (08:20)
[2022-03-27] MEDS: carvediloL 12.5 MG TABLET PO ×2 (08:20→21:28)
[2022-03-27] MEDS: Sacubitril/Valsartan 24/26 1 TAB TABLET PO ×2 (08:20→21:27)
[2022-03-27] MEDS: Brimonidine Tartrate 0.2% Oph 5 ML BOTTLE 1 DROP EYE-BOTH ×2 (08:21→21:37)
[2022-03-27] MEDS: timoloL maleate 0.5 % Oph Sol 5 ML DRBTL 1 DROP EYE-BOTH ×2 (08:21→21:36)
[2022-03-27 08:32] LABS: Hematocrit 37.7 % (42.0-52.0); Hemoglobin 11.8 g/dl (14.0-18.0); Mean Corpuscular HGB Conc 31.3 g/dl (31.0-36.0); Mean Corpuscular Hemoglobin 26.7 pg (27.0-33.0); Mean Corpuscular Volume 85.3 fL (80.0-98.0); Mean Platelet Volume 9.5 fL (9.4-12.4); Platelet Count 340 X10*3/uL (160-400); Red Blood Count 4.42 X10*6/uL (4.60-5.80); Red Cell Distribution Width 13.9 % (11.0-16.0)
--- NOTE | 2022-03-27 15:57 | MHC.CM.PN ---
IMM 03/27/22, EMR REVIEWED, PT REPORTS HE LIVES ALONE, IS INDEP W/AMBULATION, DENIES USE OF DME AND HAS [facility] FOR WEEKLY NSG VISITS QWEDNDAY AND FACING BASTER HRS WHICH WERE INCREASED FROM 1 TO 2HRS DAILY MON-FRI, REFERRAL ALSO PLACED TO [facility] FOR 14 DAYS IV ERTAPENEM PER PULMONOLGY, PT HAS NO PREFERENCE IN [place]. PER [facility] ANTIC LIAISON WILL BE IN TOMORROW 03/28 FOR TEACH PCP VERIFIED LESA ANGUIANO AND HCP MILLER WYATT ON FILE.
[2022-03-27] MEDS: Enoxaparin Sodium 40 MG/0.4 ML SYRINGE SUBCUT (17:08)
[2022-03-27] MEDS: Latanoprost 0.005 % Ophth Sol 2.5 ML DROPS 1 DROP EYE-BOTH (21:34)
[2022-03-28] VITALS (7 sets, daily range): BP systolic 107–133; BP diastolic 52–63; PULSE 59–82; RESP 15–24; TEMP 35.8–36.8; O2SAT 94–99
[2022-03-28] MEDS: guaiFEN/Codeine SF 200/20/10ML 10 ML LIQUID PO ×7 (00:01→23:35)
[2022-03-28] MEDS: Omeprazole 40 MG CAPSULE.DR PO (05:20)
[2022-03-28 06:30] LABS: Hematocrit 36.2 % (42.0-52.0); Hemoglobin 11.2 g/dl (14.0-18.0); Mean Corpuscular HGB Conc 30.9 g/dl (31.0-36.0); Mean Corpuscular Hemoglobin 26.9 pg (27.0-33.0); Mean Platelet Volume 9.7 fL (9.4-12.4); Platelet Count 305 X10*3/uL (160-400); Red Blood Count 4.16 X10*6/uL (4.60-5.80); White Blood Count 11.9 X10*3/uL (4.8-10.8)
[2022-03-28 06:47] LABS: Anion Gap 12 (12-20); Blood Urea Nitrogen 18 mg/dL (9-16); Calcium 8.3 mg/dL (8.4-10.2); Carbon Dioxide 29 mmol/L (22-29); Chloride 103 mmol/L (96-108); Estimated Glomerular Filt Rate > 60; Glucose Random 105 mg/dL (60-115); Potassium 4.2 mmol/L (3.3-5.1); Sodium 140 mmol/L (135-145)
[2022-03-28] MEDS: Pravastatin Sodium 10 MG TABLET PO (08:29)
[2022-03-28] MEDS: Docusate Sodium 100 MG CAPSULE PO ×2 (08:29→21:09)
[2022-03-28] MEDS: predniSONE 20 MG TABLET 40 MG PO (08:29)
[2022-03-28] MEDS: 0.9 % Sodium Chloride Flush 3 ML SYRINGE IVFLUSH ×2 (08:29→21:10)
[2022-03-28] MEDS: Tamsulosin HCL 0.4 MG CAPSULE PO (08:29)
[2022-03-28] MEDS: carvediloL 12.5 MG TABLET PO ×2 (08:30→21:09)
[2022-03-28] MEDS: Sacubitril/Valsartan 24/26 1 TAB TABLET PO ×2 (08:30→21:09)
[2022-03-28] MEDS: Mirabegron 25 MG TAB.ER.24H PO (08:30)
[2022-03-28] MEDS: Finasteride 5 MG TABLET PO (08:30)
[2022-03-28] MEDS: Brimonidine Tartrate 0.2% Oph 5 ML BOTTLE 1 DROP EYE-BOTH ×2 (08:33→21:09)
[2022-03-28] MEDS: timoloL maleate 0.5 % Oph Sol 5 ML DRBTL 1 DROP EYE-BOTH ×2 (08:33→21:09)
--- NOTE | 2022-03-28 10:42 | P.PNIM_ITS ---
Subjective Subjective Date of Service: 03/28/22 Interval History: f/u on copd exacerbation, h/o bronchiectasis with resistant e coli in sputum interval history: no sob Physical Exam Vital Signs: Vital Signs: Last Vital Signs Temp 98.2 F 03/28/22 07:20 Pulse 71 03/28/22 07:49 Resp 15 03/28/22 07:49 BP 133/63 03/28/22 07:20 Pulse Ox 97 03/28/22 07:20 O2 Del Method 03/28/22 07:20 O2 Flow Rate 2 03/28/22 03:01 Oxygen Flow Rate 2 03/25/22 13:36 BMI result Body Mass Index 24.2 Const: Other: General: AO X 3, no acute distress Resp: CTA bilateral CVS: S1,S2,RRR GI: +BS, NT, no distention Skin: No rash Neuro: motor grossly intact Psych: appropriate affect Objective Data Active Medications Albuterol Sulfate (Albuterol Sulfate 90 Mcg 8 Gm Inhaler) 2 puff INHALE Q4H PRN PRN Reason: shortness of breath or wheezing Brimonidine Tartrate (Brimonidine Tartrate 0.2% Oph 5 Ml Bottle) 1 drop EYE- BOTH BID [facility] Last Admin: 03/28/22 08:33 Dose: 1 drop Documented By: LESA Carvedilol (Carvedilol 12.5 Mg Tablet) 12.5 mg PO BID [facility]; Protocol Last Admin: 03/28/22 08:30 Dose: 12.5 mg Documented By: LESA Albuterol Sulfate 2.5 mg/ (Ipratropium [place] 0.5 mg) 0 mg INHALE RQ4H WHILE A WAKE [facility] Last Admin: 03/28/22 07:48 Dose: 1 each Documented By: SHAHID Albuterol Sulfate 2.5 mg/ (Ipratropium [place] 0.5 mg) 0 mg INHALE Q3H PRN PRN Reason: sob Docusate Sodium (Docusate Sodium 100 Mg Capsule) 100 mg PO BID [facility] Last Admin: 03/28/22 08:29 Dose: 100 mg Documented By: LESA Enoxaparin Sodium (Enoxaparin Sodium 40 Mg/0.4 Ml Syringe) 40 mg SUBCUT Q24H [facility] Last Admin: 03/27/22 17:08 Dose: 40 mg Documented By: LESA Finasteride (Finasteride 5 Mg Tablet) 5 mg PO DAILY [facility] Last Admin: 03/28/22 08:30 Dose: 5 mg Documented By: LESA Guaifenesin/Codeine Phosphate (Guaifen/Codeine Sf 200/20/10ml 10 Ml Liquid) 10 ml PO Q4H [facility] Last Admin: 03/28/22 08:29 Dose: 10 ml Documented By: LESA Meropenem 1 gm/ Sodium (Chloride) 100 mls @ 200 mls/hr IV Q8H [facility] Last Infusion: 03/28/22 05:53 Dose: 200 mls/hr Documented By: LANDON Latanoprost (Latanoprost 0.005 % Ophth Thalia 2.5 Ml Drops) 1 drop EYE-BOTH BEDTIME [facility] Last Admin: 03/27/22 21:34 Dose: 1 drop Documented By: LANDON Mirabegron (Mirabegron 25 Mg Tab.Er.24h) 25 mg PO DAILY [facility] Last Admin: 03/28/22 08:30 Dose: 25 mg Documented By: LESA Omeprazole (Omeprazole 40 Mg Capsule.Dr) 40 mg PO DAILY@0630 [facility] Last Admin: 03/28/22 05:20 Dose: 40 mg Documented By: LANDON Pharmacy Consult (Consult Rx Perform Med Rec) 1 each MISCELLANE ONCE PRN PRN Reason: Consult order Pharmacy Consult (Consult Rx Perform Med Rec) 1 each MISCELLANE ONCE PRN PRN Reason: Consult order Polyethylene Glycol (Polyethylene Glycol 3350 17 Gm Powd.Pack) 17 gm PO DAILY PRN PRN Reason: constipation Pravastatin Sodium (Pravastatin Sodium 10 Mg Tablet) 10 mg PO DAILY [facility] Last Admin: 03/28/22 08:29 Dose: 10 mg Documented By: LESA Prednisone (Prednisone 20 Mg Tablet) 40 mg PO DAILY [facility] Last Admin: 03/28/22 08:29 Dose: 40 mg Documented By: LESA Sacubitril/Valsartan (Sacubitril/Valsartan 1 Tab Tablet) 1 tab PO BID [facility]; Protocol Last Admin: 03/28/22 08:30 Dose: 1 tab Documented By: LESA Sodium Chloride (0.9 % Sodium Chloride Flush 3 Ml Syringe) 3 ml IVFLUSH QSHIFT [facility] Last Admin: 03/28/22 08:29 Dose: 3 ml Documented By: ELSA Tamsulosin HCl (Tamsulosin Hcl 0.4 Mg Capsule) 0.4 mg PO DAILY [facility] Last Admin: 03/28/22 08:29 Dose: 0.4 mg Documented By: LESA Timolol Maleate (Timolol Maleate 0.5 % Oph [place]alia 5 Ml Drbtl) 1 drop EYE-BOTH BID [facility] Last Admin: 03/28/22 08:33 Dose: 1 drop Documented By: LESA Labs 03/28/22 05:03 03/28/22 05:03 Labs: Laboratory Results - last 24 hr 03/28/22 03/28/22 05:03 05:03 MCV 87.0 MCH 26.9 L MCHC 30.9 L RDW 14.0 Plt Count 305 MPV 9.7 Absolute Nucleated RBC 0.000 Nucleated RBC % (auto) 0.0 Anion Gap 12 Estim Creat Clear Calc 75.0 Estimated GFR > 60 Random Glucose 105 Calcium 8.3 L Microbiology Microbiology Results: Microbiology 03/25/22 14:26 Blood Culture - Preliminary Blood - Venous No growth after 48 hours. 03/25/22 14:23 Blood Culture - Preliminary Blood - Venous No growth after 48 hours. Assessment and Plan (1) Bronchiectasis with (acute) exacerbation: Status: Acute (2) COPD exacerbation: Status: Acute Plan 81-year-old male with history of bronchiectasis, , HFpEF, HTN, GERD, paroxysmal atrial fibrillation not anticoagulated d/t recent hemoptysis as per Cardiology note), chronic respiratory failuresec to COPD, 2 L of supplemental oxygen at [facility] e. 1. COPD exacerbation, improved Oral prednisone bronchodilators by [facility] Bronchiectasis with ESBL history Pulmonary is recommending IV Meropenem for at leas 14 days ID consult, will need a midline 2.HFpEF/cmp: Continue home -coreg/entersto. 3.paroxysmal atrial fibrillation, not anticoagulated (had recent hemoptysis as per Cardiology note). holter -was sinus . Currently in sinus rhythm continue coreg. 4.GERD: continue home meds DVT prophylaxis:? Mechanical devices since has hemoptysis history. on going hospitlisation need - Need IV antibiotics for bronchiectasis that with ESBL ID consult pending Time Spent With Patient Time: Total time managing care of this patient today ____ minutes. Quality Stroke Does the patient have a stroke diagnosis?: No VTE Prior VTE?: No VTE Risk Level:: Medical - moderate - high VTE Device Contraindication: N/A - Device Ordered VTE Drug Contraindication: N/A - Med Ordered
--- NOTE | 2022-03-28 17:52 | HO.MIDLINE ---
Midline Insertion MIDLINE INSERTION Diagnosis: [COPD exacerbation] Indication: [facility] antibiotics needed Pertinent Labs: reviewed Technique: Using sterile technique including cap and mask, glove and drape, the left arm was prepped and draped in the usual sterile fashion of full barrier technique with G. Using ultrasound guidance, left basilic vein access was obtained by Alvaro Ramirez RN, but unable to pass guidewire. Left brachial vein was then accessed by Alvaro Ramirez RN, but unable to pass guidewire. Left brachial vein was accessed on first attempt by Michael Gould RN. A [id number] Non-PASV Midline was positioned. The procedure was performed in S272. Ultrasound was used to document vein patency and for needle entry. A formal ultrasound picture was recorded. Vascular Developmental Education Instructor has released the line for use and it is currently dressed with a StatLock, Tegaderm, and CHG disc. Verification has been performed for blood return and line patency. Arm Circumference: 28 CM Equipment: BARD PowerGlide ST Midline Catheter Type: [id number] NON-PASV Midline Lot #: [id number]
[2022-03-28] MEDS: Enoxaparin Sodium 40 MG/0.4 ML SYRINGE SUBCUT (18:09)
[2022-03-28] MEDS: Latanoprost 0.005 % Ophth Sol 2.5 ML DROPS 1 DROP EYE-BOTH (21:10)
[2022-03-29] VITALS (7 sets, daily range): BP systolic 111–142; BP diastolic 56–75; PULSE 67–88; RESP 16–22; TEMP 36.1–36.4; O2SAT 92–99
[2022-03-29] MEDS: guaiFEN/Codeine SF 200/20/10ML 10 ML LIQUID PO ×4 (05:57→18:05)
[2022-03-29] MEDS: Omeprazole 40 MG CAPSULE.DR PO (05:57)
[2022-03-29] MEDS: Mirabegron 25 MG TAB.ER.24H PO (08:40)
[2022-03-29] MEDS: carvediloL 12.5 MG TABLET PO (08:40)
[2022-03-29] MEDS: Finasteride 5 MG TABLET PO (08:40)
[2022-03-29] MEDS: Sacubitril/Valsartan 24/26 1 TAB TABLET PO (08:40)
[2022-03-29] MEDS: 0.9 % Sodium Chloride Flush 3 ML SYRINGE IVFLUSH ×2 (08:40→16:35)
[2022-03-29] MEDS: predniSONE 20 MG TABLET 40 MG PO (08:41)
[2022-03-29] MEDS: Pravastatin Sodium 10 MG TABLET PO (08:41)
[2022-03-29] MEDS: Tamsulosin HCL 0.4 MG CAPSULE PO (08:41)
[2022-03-29] MEDS: Docusate Sodium 100 MG CAPSULE PO (08:42)
[2022-03-29] MEDS: timoloL maleate 0.5 % Oph Sol 5 ML DRBTL 1 DROP EYE-BOTH (08:44)
[2022-03-29] MEDS: Brimonidine Tartrate 0.2% Oph 5 ML BOTTLE 1 DROP EYE-BOTH (08:44)
--- NOTE | 2022-03-29 09:44 | P.DS_ITS ---
DS: Providers Provider Date of Service: 03/29/22 Date of admission: 03/25/22 16:26 Primary care physician: Olga Calzada MD Consults: 03/25/22 16:48 Consult to Pulmonology Routine Consulting Provider: Brent Duenas Reason for consultation: copd/bronchiectasis exacerbation Has provider been notified: No 03/26/22 12:59 Consult to Infectious Diseases Routine Consulting Provider: Edwina Cordero Reason for consultation: RESTRICTED ANTIBIOTIC 03/28/22 07:21 Consult to Infectious Diseases Routine Consulting Provider: Edwina Cordero Reason for consultation: Bronchiectasis DS: Diagnosis Discharge Diagnosis (1) Bronchiectasis with (acute) exacerbation: Status: Acute (2) COPD exacerbation: Status: Acute DS: Summary Hospital Course Hospital Course: Attending physician on admission: Marnie Huang Chief Complaint: sob 81-year-old male with history of bronchiectasis, COPD, 2 L of supplemental oxygen at home, HFpEF, HTN, GERD, paroxysmal atrial fibrillation no anticoagulation(had recent hemoptysis as per Cardiology note), history of acute on chronic respiratory failure, came in for increased shortness of breath and coughing with green sputum worsening over the past 3 months , no sick contact, no recent travel.? He says that he did not come to the hospital because he did not wanted to be from last 3 months, from last month or so she he said he has cough is getting worse and he feel more tired which further inquiry seems like also from couple of months going on. 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 Currently feels very tired and says that he is short of breath with minimal exertion and aggressive cough with sputum,?? Could not tell which color of sputum. He is saying many cups also has pain. Lab imaging a reviewed: ?? Mild leukocytosis seems chronic BMP seems fine Chest x-ray:? Seems chronic changes not significant any acute finding. BNP normal, EKG shows sinus tachycardia , otherwise similar before Hospital course: Pt was admitted for exacerbation of COPD and seen by Dr. Duenas with the following remarks and recommendation Patient with underlying bronchiectasis with recurrent ESBL infections, also COPD supplemental oxygen 2 L dependent, now being evaluated for lung volume reduction surgery by thoracic surgery, admitted on 03/25/2022 with exacerbation of his underlying bronchiectasis. Recommendations:? Switch levofloxacin to meropenem based on prior cultures.? Would suggest placement of PICC and total of 14 days of carbapenem therapy.? Taper of systemic glucocorticoids.? Continue nebulized bronchodilators. Midline inserted on 03/28 for IV Invanz for total of 14 days. Symptomatically is better and will kamini off Prendnisone 2.HFpEF/cmp: Continue home -coreg/entersto. 3.paroxysmal atrial fibrillation, not? anticoagulated (had recent hemoptysis as per Cardiology note). holter -was sinus . Currently in sinus rhythm continue coreg. 4.GERD: PPI Disposition: home with IV Abx Final diagnosis: Copd exacerbation with chronic respiratory failure on home O2 Bronchiectasis Chronic HFpEF GERD Time Spent with Patient Time attestation: Total time managing care of this patient today ____ minutes. Discharge coordination time: Greater than 30 minutes Quality: Safe Use of Opioids Does Pt have an Active Cancer Diagnosis on the Problem List?: No Quality: Stroke Does the patient have a stroke diagnosis?: No Physical Exam Vital Signs: Vital Signs: Last Vital Signs Temp 97.3 F 03/29/22 07:27 Pulse 78 03/29/22 07:36 Resp 18 03/29/22 07:36 BP 142/75 H 03/29/22 07:27 Pulse Ox 92 03/29/22 07:27 O2 Del Method 03/29/22 07:27 O2 Flow Rate 2 03/29/22 07:27 Oxygen Flow Rate 2 03/25/22 13:36 BMI result Body Mass Index 24.2 Const: Other: General: AO X 3, no acute distress Resp: CTA bilateral CVS: S1,S2,RRR GI: +BS, NT, no distention Skin: No rash Neuro: motor grossly intact Psych: appropriate affect DS: Data Data Completed and Pending Completed studies during hospitalization [Text1]: Procedures Insertion of Infusion Device into Right Cephalic Vein, Percutaneous Approach (12/07/21) Insertion of Infusion Device into Superior Vena Cava, Percutaneous Approach (12/07/21) Ultrasonography of Superior Vena Cava, Guidance (12/07/21) Labs on day of discharge: Preliminary micro results at discharge 03/25/22 14:26 Blood Culture - Preliminary Blood - Venous No growth after 48 hours. 01/14/23 14:23 Blood Culture - Preliminary Blood - Venous No growth after 48 hours. Discharge Plan Discharge Anticipated Discharge Date/Time: 03/29/22 09:41 Patient Disposition: Home, Self-Care Discharge Diagnosis: Bronchiectasis Referrals: Olga North MD [Primary Care Provider] - 1 Week Discharge Medications: New ertapenem [Invanz] 1 gram recon soln 1 g IV DAILY Qty: 12 0RF Continued Entresto 24-26 mg tablet 1 tab PO BID 90 Days Qty: 180 3RF albuterol sulfate 90 mcg/actuation HFA aerosol inhaler 2 puff inhalation Q4H PRN (Reason: shortness of breath or wheezing) Qty: 8.5 4RF lovastatin 10 mg tablet 10 mg PO DAILY 90 Days Qty: 90 3RF polyethylene glycol 3350 17 gram powder in packet 17 g PO DAILY PRN (Reason: constipation) Qty: 30 0RF tamsulosin 0.4 mg capsule 0.4 mg PO DAILY Qty: 30 0RF carvedilol 12.5 mg tablet 12.5 mg PO BID Qty: 60 0RF Protocol: Hold for SBP/HR < HOLD for SBP < : 90 HOLD for HR < : 60 docusate sodium 100 mg capsule 100 mg PO BID Qty: 60 0RF (DME) walker Misc See Rx Instructions .Route Qty: 1 0RF Rx Instructions: with seat and wheels travoprost 0.004 % drops 1 drp ophthalmic (eye) BEDTIME Rx Instructions: instill 1 drop into both eyes brimonidine-timolol [Combigan] 0.2-0.5 % drops 1 drp ophthalmic (eye) BID doxycycline hyclate 100 mg tablet 100 mg PO MOWEFR Myrbetriq 25 mg tablet extended release 24 hr 1 tab PO DAILY Eliquis 5 mg tablet 1 tab PO BID omeprazole 40 mg capsule,delayed release(DR/EC) 40 mg PO DAILY@0630 finasteride [Proscar] 5 mg tablet 5 mg PO DAILY 90 Days Qty: 90 3RF nitrofurantoin monohyd/m-cryst [Macrobid] 100 mg capsule 100 mg PO DAILY 30 Days Qty: 30 0RF Rx Instructions: start macrobid one capsule daily. must administer with a meal/food Diet: Advance to usual diet Activity on Discharge: As tolerated Stand Alone Forms: Patient Portal Discharge page Care Plan Goals: Full recovery from copd exacerbation and bronchicatasis Health Concerns: copd exacerbation and bronchicatasis Plan of Treatment: Take Invanz 1 gram daily IV for 12 more days Take Prednisone as directed Follow up with your doctor and lung doctor in a week Assessment: as above
--- NOTE | 2022-03-29 12:15 | MHC.CM.PN ---
EMR REVIEWED, PT MEDICALLY CLEARED FOR D/C HOME W/12 MORE DAYS IV ABX HOWEVER [facility] HAD CONCERNS IF PT CAN DO IV ABX HIMSELF AND LIAISON WILL DISCUSS W/[facility] TO SEE IF THEY CAN D DAILY X2 WKS. HOSPITALIST IN [place] UNTIL 1:30PM AND WILL SIGN ORDER FORM ONCE HE IS AVAILABLE.
--- NOTE | 2022-03-29 14:18 | W.MHC.F2F ---
Service Date Service Date: 03/29/22 Encounter Date of encounter: 03/29/22 Reasons for Services Signs and symptoms assessed: Lung infection, sob Reason for shelter: administration of IV, SQ, or IM injection Homebound: Leaving the home is medically contraindicated at this time without the asist of a device and/or another person due th the listed conditions above and below. Reason homebound: shortness of breath with minimal effort Homebound supporting statement: Homebound due to shortness with minimal effort and therefore needs the assitance of another person Certification: Based on the above findings, I certify that this patient is confined to the home and needs intermittent shelter care, physical therapy and/or speech therapy, or continues to need occupational therapy. The patient is under my care, and I have initiated the establishment of the plan of care. The patient will be followed by a physician who will periodically review the plan of care. Time Spent With Patient Time: Total time managing care of this patient today ____ minutes.
--- NOTE | 2022-03-29 14:58 | MHC.CM.PN ---
CM MET W/PT VIA [facility] [employer], PT WILL D/C AFTER FIRST DOSE OF ERTAPENEM THROUGH MIDLINE W/RESUMP OF [facility] AND [facility], ABX TO BE DELIVERED THIS EVENING W/SOC TOMORROW, PT WILL ARRANGE TRANSPORT
[2022-03-29] MEDS: Ertapenem Sodium 1 GM in 0.9 % Sodium Chloride 50 ML IV (15:26)
[2022-03-29] MEDS: Alteplase Cath Clear 2 MG VIAL INTRACATH (16:35)
== END 2022-03-29 18:45 | disposition home health service (06) ==
LOC: HO.ED 15:23 → HO.EDOVER 16:58 → HO.S3 20:03
PROVIDERS: Admitting Provider Internal Medicine; Emergency Provider Emergency Medicine; PCP Internal Medicine; Visit Provider Internal Medicine
DX: J44.1 Chronic obstructive pulmonary disease with (acute) exacerbation (principal); J47.1 Bronchiectasis with (acute) exacerbation; J96.21 Acute and chronic respiratory failure with hypoxia; A49.9 Bacterial infection, unspecified; Z16.12 Extended spectrum beta lactamase (ESBL) resistance; D72.829 Elevated white blood cell count, unspecified; R00.0 Tachycardia, unspecified; R06.02 Shortness of breath; Z20.822 Contact with and (suspected) exposure to COVID-19; Z20.828 Contact with and (suspected) exposure to other viral communicable diseases; I10 Essential (primary) hypertension; E78.00 Pure hypercholesterolemia, unspecified; K21.9 Gastro-esophageal reflux disease without esophagitis; I48.0 Paroxysmal atrial fibrillation; Z87.891 Personal history of nicotine dependence; Z99.81 Dependence on supplemental oxygen; Z79.02 Long term (current) use of antithrombotics/antiplatelets; Z79.899 Other long term (current) drug therapy
CPT/HCPCS: 0241U; 36410; 36415; 71045; 80048; 80053; 83605; 83880; 84484; 85025; 85027; 87040; 93005; 94010; 94640; 96365; 96366; 96367; 96372; 96375; 96376; 99221; 99285; C1751; J1335; J1650; J1940; J1956; J2185; J2920; J2930; J2997; J3475

== ENCOUNTER → 2022-04-04 12:21 | Outpatient (BNVA) | payer MEDICARE, MEDICAID, SELFPAY | PROVIDERS: PCP Internal Medicine; Visit Provider Internal Medicine Pulmonary Disease | DX: J47.9 Bronchiectasis, uncomplicated (principal); J44.9 Chronic obstructive pulmonary disease, unspecified; Z99.81 Dependence on supplemental oxygen | CPT/HCPCS: 99212 ==

== ENCOUNTER 2022-04-05 11:32 | Outpatient (REF) | payer MEDICARE, MEDICAID, SELFPAY ==
[2022-04-05 11:37] LABS: MANUAL DIFF FLAG NO
[2022-04-05 11:42] LABS: Basophils Percent Auto 0.1 % (0-2); Eosinophils Absolute Auto 0.2 X10*3/uL (0.0-0.4); Hematocrit 36.9 % (42.0-52.0); Hemoglobin 11.2 g/dl (14.0-18.0); Imm Gran Abs Auto 0.08 X10*3/uL (0.00-0.03); Imm Gran Pct Auto 0.5 % (0.0-0.4); Lymphocytes Absolute Auto 1.2 X10*3/uL (1.2-4.9); Lymphocytes Percent Auto 7.2 % (20-40); Mean Corpuscular HGB Conc 30.4 g/dl (31.0-36.0); Mean Corpuscular Hemoglobin 26.2 pg (27.0-33.0); Mean Corpuscular Volume 86.4 fL (80.0-98.0); Mean Platelet Volume 9.7 fL (9.4-12.4); Monocytes Absolute Auto 1.1 X10*3/uL (0.1-1.2); Monocytes Percent Auto 6.6 % (2-11); Neutrophils Absolute Auto 13.7 x10*3/uL (2.0-8.3); Neutrophils Percent Auto 84.6 % (45-73); Platelet Count 341 X10*3/uL (160-400); Red Blood Count 4.27 X10*6/uL (4.60-5.80); Red Cell Distribution Width 14.6 % (11.0-16.0); White Blood Count 16.2 X10*3/uL (4.8-10.8)
[2022-04-05 12:35] LABS: Blood Urea Nitrogen 14 mg/dL (9-16); Estimated Glomerular Filt Rate > 60
== END 2022-04-05 11:33 | disposition home or self-care (01) ==
LOC: HO.HVNA 11:32
PROVIDERS: Visit Provider Internal Medicine
DX: J44.1 Chronic obstructive pulmonary disease with (acute) exacerbation (principal)
CPT/HCPCS: 36415; 82565; 84520; 85025

== ENCOUNTER → 2022-04-10 13:03 | Outpatient (BNVA) | payer MEDICARE, MEDICAID, SELFPAY | PROVIDERS: PCP Internal Medicine; Visit Provider Internal Medicine | DX: Z13.89 Encounter for screening for other disorder (principal) ==

== ENCOUNTER 2022-04-14 12:09 | Inpatient (IN) | payer MEDICARE, MEDICAID, SELFPAY ==
[2022-04-14] VITALS (16 sets, daily range): BP systolic 103–194; BP diastolic 58–109; PULSE 80–107; RESP 18–32; TEMP 36.7–37; O2SAT 90–100; BMI 22.9; BMI 21.7
--- NOTE | ~2022-04-14 | XR_ITS ---
EXAMINATION: XR CHEST CLINICAL INFORMATION: Tachypnea COMPARISON: Cafe Operator film from CT of 04/14/2022, chest film from 03/25/2022 TECHNIQUE: Frontal view of the chest was obtained. FINDINGS: Once again significant parenchymal opacities are seen. Comparable to study from 03/25/2022. Cardiac silhouette is comparable. Rotation limits this exam. XR/XR chest 1V IMPRESSION: Significant opacities are once again seen. It would be difficult to evaluate superimposed acute process. Correlation recommended clinically
--- NOTE | ~2022-04-14 | CT_ITS ---
EXAMINATION: CT ANGIOGRAM OF THE CHEST WITH AND WITHOUT CONTRAST (CT PULMONARY ANGIOGRAM FOR PE) CLINICAL INFORMATION: Reason for Exam hemoptysis COMPARISON: Chest radiographs 03/25/2022, CT chest noncontrast 01/31/2022, CTA chest 12/07/2021, CT abdomen 01/13/2022. TECHNIQUE: Prior to contrast administration, noncontrast localization images were obtained. Subsequently, multidetector volumetric imaging was performed from the thoracic inlet to below the diaphragms following the administration of 65 mL Omnipaque 350 intravenous contrast. No contrast reaction reported Sagittal, coronal, and MIP oblique sagittal reformatted images were obtained on the CT workstation, uploaded to PACS, and reviewed. This CT examination was performed using dose optimization techniques as appropriate, variously including the following: *Automated exposure control *Adjustment of mA and/or kV according to patient size (this includes techniques or standardized protocols for targeted exams where dose is matched to indication/reason for exam; i.e. extremities or head) *Use of iterative reconstruction technique Total exam dose-length product 360 mGy-cm FINDINGS: QUALITY OF STUDY/CONTRAST BOLUS: Suboptimal. PULMONARY ARTERIES: There is preferential enhancement of the aorta and the pulmonary veins. There is no central pulmonary embolism. The main pulmonary arteries are normal in caliber. THORACIC AORTA: Thoracic aorta is normal in caliber. There is no aneurysmal enlargement or dissection. 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 LUNG: Chronic diffuse lung disease with extensive bronchiectasis and cysts, coarsening bronchiolar markings, and accentuation bronchovascular axial interstitium. No lobar or segmental airspace consolidation. No interval mass. No air-fluid levels within the cystic changes. No endobronchial lesion or air-fluid level in the trachea or main bronchi. PLEURA: No pleural effusion or pneumothorax. MEDIASTINUM: Normal heart size. No pericardial effusion. No hilar or mediastinal lymphadenopathy. No evidence of septal bowing or right heart strain. No mediastinal hematoma. CORONARY ARTERY CALCIFICATION: Coronary artery atherosclerotic calcifications are present. CHEST WALL/AXILLA: No axillary or internal mammary lymphadenopathy. OSSEOUS STRUCTURES: No acute or suspicious osseous abnormality. UPPER ABDOMEN: Unremarkable. No reflux of contrast into the hepatic veins to suggest elevated right heart pressures. Results called and discussed with Dr. Hammer in the emergency department at [address]/CT angio chest PE protocol IMPRESSION: 1. No thoracic aortic enlargement or dissection. No mediastinal hematoma. 2. Suboptimal enhancement pulmonary arteries. No central pulmonary embolism. No right heart strain. 3. Chronic diffuse lung disease with extensive bronchiectasis and cysts, coarsening bronchiolar markings, and accentuation bronchovascular axial interstitium. No lobar or segmental airspace consolidation. No air-fluid levels. VTE: negative
--- NOTE | 2022-04-14 12:11 | ED_ITS ---
HPI - GI Bleed General Chief complaint: Nausea/Vomiting/Diarrhea Stated complaint: GI bleed, 2 L blood lost so far per EMS Time Seen by Provider: 04/14/22 12:11 Source: EMS Mode of arrival: EMS Limitations: language barrier History of Present Illness HPI Narrative: EMS gave TXA 1 gm, found patient found in pool of blood. the history was then obtained by securities adviser and the patient described the blood as coming from coughing MD complaint: other (hemoptysis) Onset (ago): minute(s) Pain Consistency: constant Severity: severe Associated symptoms: shortness of breath Related Data Home Medications Medication Instructions Recorded Confirmed brimonidine 0.2 %-timolol 0.5 % 1 drp ophthalmic (eye) BID 03/08/21 04/14/22 eye drops (Combigan) travoprost 0.004 % eye drops 1 drp ophthalmic (eye) BEDTIME 03/08/21 04/14/22 doxycycline hyclate 100 mg tablet 100 mg PO MOWEFR 03/20/22 04/14/22 mirabegron 25 mg tablet,extended 1 tab PO DAILY 03/25/22 03/25/22 release 24 hr (Myrbetriq) omeprazole 40 mg capsule,delayed 40 mg PO DAILY@0630 03/25/22 04/14/22 release Previous Rx's Medication Instructions Recorded sacubitril 24 mg-valsartan 26 mg 1 tab PO BID 90 days #180 tabs 07/19/21 tablet (Entresto) lovastatin 10 mg tablet 10 mg PO DAILY 90 days #90 tabs 11/08/21 finasteride 5 mg tablet (Proscar) 5 mg PO DAILY 90 days #90 tabs 01/06/22 polyethylene glycol 3350 17 gram 17 g PO DAILY PRN constipation #30 02/15/22 oral powder packet ea nitrofurantoin 100 mg PO DAILY 30 days #30 caps 03/08/22 monohydrate/macrocrystals 100 mg capsule (Macrobid) tamsulosin 0.4 mg capsule 0.4 mg PO DAILY #30 caps 03/14/22 docusate sodium 100 mg capsule 100 mg PO BID #60 caps 03/18/22 walker #1 ea 03/20/22 ertapenem 1 gram solution for 1 g IV DAILY #12 ea 03/29/22 injection (Invanz) prednisone 10 mg tablet See Taper PO DIRECTED #20 tabs 03/29/22 apixaban 5 mg tablet (Eliquis) 5 mg PO BID 90 days #180 tabs 03/30/22 carvedilol 12.5 mg tablet 12.5 mg PO BID #60 tabs 04/11/22 albuterol sulfate 90 mcg/actuation 2 puff inhalation Q4H PRN 04/12/22 aerosol inhaler shortness of breath or wheezing #8.5 grams Allergies Allergy/AdvReac Type Severity Reaction Status Date / Time Penicillins [PENICILLINS] Allergy Intermediate PASSED Verified 04/04/22 13:04 OUT trazodone Allergy Intermediate tremors Verified 04/04/22 13:04 Review of Systems Review of Systems: Yes all other systems are reviewed and are negative Cardiovascular: Cardiovascular: Reports dyspnea Respiratory: Respiratory: Reports cough, Reports hemoptysis and Reports dyspnea Neurologic: Denies Sensory deficit (Neuro) [facility] Past Medical History Medical History Acute and chronic respiratory failure BPH loc w urin obs/LUTS Bronchiectasis Bronchiectasis with (acute) exacerbation Bronchitis Congestive heart failure COPD (chronic obstructive pulmonary disease) COPD (chronic obstructive pulmonary disease) COPD (chronic obstructive pulmonary disease) COPD exacerbation Dysuria ESBL (extended spectrum beta-lactamase) producing bacteria infection Essential hypertension GERD (gastroesophageal reflux disease) Glaucoma Hearing loss Hernia History of MAC infection Hypoxia Kidney stone on left side JESSA (mycobacterium avium-intracellulare) NICM (nonischemic cardiomyopathy) Paroxysmal atrial fibrillation Pure hypercholesterolemia Supplemental oxygen dependent Urinary retention Surgical History History of bronchoscopy History of colonoscopy History of cystoscopy History of lumbar surgery History of rectal polypectomy Family History Family History Father No problems noted. Mother Medical history unknown Sister Diabetes Daughter In good health Son In good health Brother No problems noted. Social History Social History Household Members: None Housing: Apartment Do you presently have visiting nurse or other home services: Yes (visiting nurse twice a week; ONCOLOGY PHYSICIAN ASSISTANT 2 hrs daily) Alcohol intake: unknown Patient Tobacco Use Status: Former Tobacco user Quit Date: 6 years ago Tobacco use type: Cigarette e-Cigarette/Vaping Use: Never Used Second Hand Smoke Exposure: No Advance Directives Date on File: 07/12/21 service: No Current occupational status: disabled Cognitive needs: No Hearing needs: Yes Vision needs: Yes Physical Exam Vital Signs: Vital Signs: Last Vital Signs Temp 97.5 F 04/17/22 15:35 Pulse 88 04/17/22 15:36 Resp 18 04/17/22 15:36 BP 105/58 L 04/17/22 15:35 Pulse Ox 97 04/17/22 15:35 O2 Del Method 04/17/22 15:35 O2 Flow Rate 2 04/17/22 15:35 Oxygen Flow Rate 15 04/14/22 12:20 BMI result Body Mass Index 22.9 Const: Other: ill appearing, short of breath coughing blood Nutritional Appearance: average body habitus Orientation/consciousness: oriented to person and patient oriented x3 Limitations: no limitations HEENT: Head: Yes normal to inspection Ears: external ears normal General nose exam: Normal external nose present Mouth: Normal oral and palatal mucosa present and oropharynx normal Throat: Yes posterior oropharynx normal Eyes: General: appearance normal, both eyes and all related structures Neck: Other: supple Neck: Yes normal visual inspection Chest: Chest palpation & inspection: normal inspection of the chest Resp: Other: rales bilaterally Cardio: Jugular venous distension: no JVD Rate: regular rate Rhythm: regular rhythm Heart sounds: S1 normal heart sound present and S2 normal heart sound present GI: Inspection: Yes normal to inspection Palpation (GI): Soft to palpation, nontender and No hepatosplenomegaly present Auscultation: normal bowel sounds : General: Yes no CVA tenderness Back/Spine/Pelvis: Back: no CVA tenderness Skin: General skin exam: no rashes or lesions noted Neuro: General: oriented to person and patient oriented x3 Cranial nerves: Yes CN's II-XII intact bilaterally Motor exam (neuro): 5/5 motor strength p resent throughout Sensory Exam: No Sensory deficit (Neuro) Extrem: General: Yes normal to inspection Psych: Appearance: grossly normal Course Reevaluation(s) Reevaluation #1: no more active hemoptysis, discussed with dr. Duenas will admit, patient with no infection, he likely has a bleb that ruptured Time: 14:41 Reevaluation #2: I spent 40 minutes of critical care, with interventions, assessments, speaking to patient, consultants, and family. Time: 14:41 Medications Administered Generic Name Dose Route Start Last Admin Trade Name Frerebecca PRN Reason Stop Dose Admin Acetaminophen 650 mg 04/15/22 18:08 04/15/22 18:34 Acetaminophen 325 Mg Tablet PO 650 mg Q6H PRN Administration Pain, Mild (Pain Scale 1-3) Albuterol/Ipratropium 3 ml 04/15/22 14:00 04/17/22 15:36 Albuterol/Iprat 2.5/0.5mg 3 Ml Ampul.Neb INHALE 3 ml RQ6H WHILE AWAKE TON Administration Brimonidine Tartrate 1 drop 04/15/22 09:30 04/17/22 08:04 Brimonidine Tartrate 0.2% Oph 5 Ml Bottle EYE-BOTH 1 drop BID TON Administration Finasteride 5 mg 04/15/22 09:30 04/17/22 08:03 Finasteride 5 Mg Tablet PO 5 mg DAILY TON Administration Doxycycline Hyclate 100 mg/ 250 mls @ 166.67 mls/hr 04/17/22 16:00 04/17/22 15:42 Sodium Chloride IV 166.67 mls/hr Q12H TON Administration Ceftriaxone Sodium 2 gm/ 50 mls @ 100 mls/hr 04/17/22 16:00 04/17/22 16:16 Sodium Chloride IV Infused Q24H TON Infusion Methylprednisolone Sodium Succinate 60 mg 04/17/22 16:00 04/17/22 15:38 Methylprednisolone Sod Succ 125 Mg/2 Ml Vial IVPUSH 60 mg Q6H TON Administration Omeprazole 40 mg 04/15/22 09:20 04/17/22 05:49 Omeprazole 40 Mg Capsule.Dr PO 40 mg DAILY@0630 TNO Administration Tamsulosin HCl 0.4 mg 04/15/22 21:00 04/16/22 20:01 Tamsulosin Hcl 0.4 Mg Capsule PO 0.4 mg BEDTIME TON Administration Discontinued Medications Generic Name Dose Route Start Last Admin Trade Name Caitlyn PRN Reason Stop Dose Admin Albuterol Sulfate 2.5 mg 04/14/22 20:35 04/15/22 04:51 Albuterol Sulfate (0.083%) 2.5 Mg/3 Ml Vial.Neb INHALE 2.5 mg Q4H PRN Administration Shortness of Breath Iohexol 65 ml 04/14/22 12:55 04/14/22 12:55 Iohexol 350 Mg/Ml 100 Ml Infus..Btl IV 04/14/22 12:56 65 ml ONCE ONE Administration Methylprednisolone Sodium Succinate 125 mg 04/16/22 11:53 04/16/22 12:30 Methylprednisolone Sod Succ 125 Mg/2 Ml Vial IVPUSH 04/16/22 11:54 125 mg ONCE ONE Administration Ondansetron HCl 4 mg 04/14/22 12:18 04/14/22 12:34 Ondansetron Hcl 4 Mg/2 Ml Vial IVPUSH 04/14/22 12:19 4 mg ONCE ONE Administration Pantoprazole Sodium 40 mg 04/14/22 12:13 04/14/22 12:34 Pantoprazole Sodium 40 Mg/10 Ml Vial IVPUSH 04/14/22 12:14 40 mg ONCE ONE Administration Medical Decision Making Differential Diagnosis hemoptysis, aneurysm, bronchiectasis infection Admission/Observation upon immediate arrival patient to be admitted Consult Healthcare Provider Intesivist Dr. Duenas Lab Data MDM Lab Attestation statement: I reviewed the patient's lab results. 04/14/22 12:33 04/14/22 12:33 Labs: Lab Results 04/14/22 04/14/22 04/14/22 Range/Units 12:33 12:33 12:33 WBC 11.0 H (4.8-10.8) X10*3/uL RBC 4.46 L (4.60-5.80) X10*6/uL Hgb 11.7 L (14.0-18.0) g/dl Hct 38.8 L (42.0-52.0) % MCV 87.0 (80.0-98.0) fL MCH 26.2 L (27.0-33.0) pg MCHC 30.2 L (31.0-36.0) g/dl RDW 14.6 (11.0-16.0) % Plt Count 227 D (160-400) X10*3/uL MPV 9.5 (9.4-12.4) fL Immature Gran % (Auto) 0.4 (0.0-0.4) % Neut % (Auto) 88.3 H (45-73) % Lymph % (Auto) 4.3 L (20-40) % Foard % (Auto) 4.1 (2-11) % Eos % (Auto) 2.6 (0-4) % Baso % (Auto) 0.3 (0-2) % Lymph # (Auto) 0.5 L (1.2-4.9) X10*3/uL Foard # (Auto) 0.5 (0.1-1.2) X10*3/uL Eos # (Auto) 0.3 (0.0-0.4) X10*3/uL Baso # (Auto) 0.0 (0.0-0.2) X10*3/uL Abs Immat Gran (auto) 0.04 H (0.00-0.03) X10*3/uL Absolute Neuts (auto) 9.7 H (2.0-8.3) x10*3/uL Absolute Nucleated RBC 0.000 (0.0-0.012) X10*3/uL Nucleated RBC % (auto) 0.0 (0.0-0.2) /100WBC PT (10.0-13.1) SEC INR (0.9-1.1) Sodium 138 (135-145) mmol/L Potassium 4.4 (3.3-5.1) mmol/L Chloride 104 (96-108) mmol/L Carbon Dioxide 25 (22-29) mmol/L Anion Gap 13 (12-20) BUN 12 (9-16) mg/dL Creatinine 0.71 (0.5-1.4) mg/dL Estim Creat Clear Calc 86.6 Estimated GFR > 60 Random Glucose 217 H (60-115) mg/dL Calcium 8.2 L (8.4-10.2) mg/dL Total Bilirubin 0.4 (0.0-1.0) mg/dL AST 15 (5-37) U/L ALT 25 (0-40) U/L Alkaline Phosphatase 76 (39-117) U/L Troponin I High Sens 4.0 (<3.5-35.0) ng/L Total Protein 6.8 (6.5-8.0) g/dL Albumin 3.5 (3.5-5.0) g/dL Blood Type Antibody Screen Crossmatch 04/14/22 04/14/22 Range/Units 12:33 13:16 WBC (4.8-10.8) X10*3/uL RBC (4.60-5.80) X10*6/uL Hgb (14.0-18.0) g/dl Hct (42.0-52.0) % MCV (80.0-98.0) fL MCH (27.0-33.0) pg MCHC (31.0-36.0) g/dl RDW (11.0-16.0) % Plt Count (160-400) X10*3/uL MPV (9.4-12.4) fL Immature Gran % (Auto) (0.0-0.4) % Neut % (Auto) (45-73) % Lymph % (Auto) (20-40) % Foard % (Auto) (2-11) % Eos % (Auto) (0-4) % Baso % (Auto) (0-2) % Lymph # (Auto) (1.2-4.9) X10*3/uL Foard # (Auto) (0.1-1.2) X10*3/uL Eos # (Auto) (0.0-0.4) X10*3/uL Baso # (Auto) (0.0-0.2) X10*3/uL Abs Immat Gran (auto) (0.00-0.03) X10*3/uL Absolute Neuts (auto) (2.0-8.3) x10*3/uL Absolute Nucleated RBC (0.0-0.012) X10*3/uL Nucleated RBC % (auto) (0.0-0.2) /100WBC PT 14.9 H (10.0-13.1) SEC INR 1.3 H (0.9-1.1) Sodium (135-145) mmol/L Potassium (3.3-5.1) mmol/L Chloride (96-108) mmol/L Carbon Dioxide (22-29) mmol/L Anion Gap (12-20) BUN (9-16) mg/dL Creatinine (0.5-1.4) mg/dL Estim Creat Clear Calc Estimated GFR Random Glucose (60-115) mg/dL Calcium (8.4-10.2) mg/dL Total Bilirubin (0.0-1.0) mg/dL AST (5-37) U/L ALT (0-40) U/L Alkaline Phosphatase (39-117) U/L Troponin I High Sens (<3.5-35.0) ng/L Total Protein (6.5-8.0) g/dL Albumin (3.5-5.0) g/dL Blood Type O Positive Antibody Screen NEGATIVE Crossmatch See Detail Independent Interpretation I performed an independent interpretation of an: EKG (sinus 94, RBBB, inferior flipped ts) Radiology Impression Discussion of test interpretation with radiology: I discussed test interpretation with the radiologist Radiologist Impression: no aneurysm, blebs, no infiltrate Independent Historian Clinical information obtained from an independent historian. History obtained from or confirmed by: EMS Discharge Plan Discharge Clinical Impression: Hemoptysis, Bronchiectasis Patient Disposition: Admitted As Inpatient Interventions: Admission Worksheet (ED) Last Done: 04/14/22 17:24 Discharge Date/Time: 04/14/22 17:51
--- NOTE | 2022-04-14 12:16 | ECG_ITS ---
Test Reason : Vomitting Blood Blood Pressure : / mmHG Vent. Rate : 094 BPM Atrial Rate : 094 BPM P-R Int : 162 ms QRS Dur : 106 ms QT Int : 380 ms P-R-T Axes : 067 -48 -36 degrees QTc Int : 475 ms Normal sinus rhythm Left axis deviation Incomplete right bundle branch block Nonspecific ST abnormality Abnormal ECG When compared with ECG of 25-MAR-2022 13:20, ST now depressed in Inferior leads Inverted T waves have replaced nonspecific T wave abnormality in Inferior leads Referred By: Harono Hammer Electronically Signed By:Eduard Manning
[2022-04-14] MEDS: ondansetron HCL 4 MG/2 ML VIAL IVPUSH (12:34)
[2022-04-14] MEDS: Pantoprazole Sodium 40 MG/10 ML VIAL IVPUSH (12:34)
[2022-04-14 12:41] LABS: MANUAL DIFF FLAG NO
[2022-04-14 12:45] LABS: Basophils Percent Auto 0.3 % (0-2); Eosinophils Absolute Auto 0.3 X10*3/uL (0.0-0.4); Eosinophils Percent Auto 2.6 % (0-4); Hematocrit 38.8 % (42.0-52.0); Hemoglobin 11.7 g/dl (14.0-18.0); Imm Gran Abs Auto 0.04 X10*3/uL (0.00-0.03); Imm Gran Pct Auto 0.4 % (0.0-0.4); Lymphocytes Absolute Auto 0.5 X10*3/uL (1.2-4.9); Lymphocytes Percent Auto 4.3 % (20-40); Mean Corpuscular HGB Conc 30.2 g/dl (31.0-36.0); Mean Corpuscular Hemoglobin 26.2 pg (27.0-33.0); Mean Platelet Volume 9.5 fL (9.4-12.4); Monocytes Absolute Auto 0.5 X10*3/uL (0.1-1.2); Monocytes Percent Auto 4.1 % (2-11); Neutrophils Absolute Auto 9.7 x10*3/uL (2.0-8.3); Neutrophils Percent Auto 88.3 % (45-73); Platelet Count 227 X10*3/uL (160-400); Red Blood Count 4.46 X10*6/uL (4.60-5.80); Red Cell Distribution Width 14.6 % (11.0-16.0)
[2022-04-14] MEDS: iohexoL 350 MG/ML 100 ML INFUS..BTL 65 ML IV (12:55)
[2022-04-14 13:00] LABS: Alanine Aminotransferase 25 U/L (0-40); Albumin Level 3.5 g/dL (3.5-5.0); Alkaline Phosphatase 76 U/L (39-117); Anion Gap 13 (12-20); Aspartate Amino Transferase 15 U/L (5-37); Bilirubin Total 0.4 mg/dL (0.0-1.0); Blood Urea Nitrogen 12 mg/dL (9-16); Calcium 8.2 mg/dL (8.4-10.2); Carbon Dioxide 25 mmol/L (22-29); Chloride 104 mmol/L (96-108); Creatinine Clr Calc Pharmacy 86.6; Estimated Glomerular Filt Rate > 60; Glucose Random 217 mg/dL (60-115); Potassium 4.4 mmol/L (3.3-5.1); Sodium 138 mmol/L (135-145); Total Protein 6.8 g/dL (6.5-8.0)
--- NOTE | 2022-04-14 13:00 | PC.NURSE ---
Patient continues to cough up bright red blood. Back in room from CT scan. Remains on 15L NRB, sating well. Able to answer questions, skein winder in at bedside.
[2022-04-14 13:30] LABS: INTERNATIONAL NORM RATIO 1.3 (0.9-1.1); Prothrombin Time 14.9 SEC (10.0-13.1)
--- NOTE | 2022-04-14 14:48 | PC.NURSE ---
Placed on 2L NC, sating well. Patient reporting that he is feeling better.
--- NOTE | 2022-04-14 15:40 | P.HPCC_ITS ---
History of Present Illness Date of Service: 04/14/22 Chief Complaint: Large volume hemoptysis 81-year-old gentleman with underlying COPD on supplemental oxygen 2 L, bronchiectasis prior JESSA status post partial treatment, prior bronchiectasis exacerbation with ESBL E coli status post PICC placement and ertapenem with good clinical response, AFib on anticoagulation, now being admitted with an episode of large volume hemoptysis after coughing. On ER evaluation CT angio with no pulmonary aneurysms. Hemoptysis resolved. Airway watch in the intensive care unit overnight. Review of Systems Constitutional: Constitutional: Denies daytime sleepiness, Denies excessive sweating, Denies fatigue, Denies fever(s), Denies lethargy, Denies malaise, Denies night sweats, Denies snoring and Denies weight loss Eyes: Eyes: Denies blurry vision and Denies itchy eyes ENT: Denies nasal congestion, Denies post nasal drip, Denies sinus pain, Denies sinus pressure and Denies other ( Thrush) Cardiovascular: Cardiovascular: Denies chest pain, Denies pedal edema, Denies dyspnea, Denies orthopnea and Denies paroxysmal nocturnal dyspnea Respiratory: Respiratory: Reports cough, Reports hemoptysis, Denies excessive phlegm production, Denies dyspnea, Denies snoring and Denies wheezing Gastrointestinal: Gastrointestinal: Denies abdominal pain and Denies heartburn Musculoskeletal: Musculoskeletal: Denies myalgias, Denies arthralgias and Denies joint swelling Integumentary/Breasts: Skin/Breast: Denies rash Neurologic: Denies memory loss and Denies seizure-like activity Psychiatric: Psychiatric: Denies abnormal sleep pattern, Denies anxiety and Denies memory loss Endocrine: Endocrine: Denies excessive sweating, Denies fatigue and Denies heat intolerance Hematologic/Lymphatic: Hematologic/Lymphatic: Denies easy bruising Allergic/Immunologic: Allergic/Immunologic: Denies itchy eyes, Denies seasonal rhinorrhea and Denies wheezing PMFSH Past Medical History Medical History Acute and chronic respiratory failure BPH loc w urin obs/LUTS Bronchiectasis Bronchiectasis with (acute) exacerbation Bronchitis Congestive heart failure COPD (chronic obstructive pulmonary disease) COPD (chronic obstructive pulmonary disease) COPD (chronic obstructive pulmonary disease) COPD exacerbation Dysuria ESBL (extended spectrum beta-lactamase) producing bacteria infection Essential hypertension GERD (gastroesophageal reflux disease) Glaucoma Hearing loss Hernia History of MAC infection Hypoxia Kidney stone on left side JESSA (mycobacterium avium-intracellulare) NICM (nonischemic cardiomyopathy) Paroxysmal atrial fibrillation Pure hypercholesterolemia Supplemental oxygen dependent Urinary retention Family History Family History Father No problems noted. Mother Medical history unknown Sister Diabetes Daughter In good health Son In good health Brother No problems noted. Surgical History Surgical History History of bronchoscopy History of colonoscopy History of cystoscopy History of lumbar surgery History of rectal polypectomy Social History Social History Household Members: None Housing: Apartment Do you presently have visiting nurse or other home services: Yes (ELIGIBILITY CONSULTANT) Alcohol intake: unknown Patient Tobacco Use Status: Former Tobacco user Quit Date: 6 years ago Smoked in Last 30 Days: No e-Cigarette/Vaping Use: Never Used Second Hand Smoke Exposure: No Use of substances other than those prescribed or required for medical reasons: No Any prior treatment program specific to substance use: No Advance Directives: Yes Advance Directives on File: Yes Advance Directives Date on File: 07/12/21 service: No Current occupational status: disabled Cognitive needs: No Hearing needs: Yes Vision needs: Yes Meds Allergies Allergy/AdvReac Type Severity Reaction Status Date / Time Penicillins [PENICILLINS] Allergy Intermediate PASSED Verified 04/04/22 13:04 OUT trazodone Allergy Intermediate tremors Verified 04/04/22 13:04 Home Medications Medication Instructions Recorded Confirmed Last Taken Type brimonidine 0.2 %-timolol 0.5 % 1 drp ophthalmic (eye) BID 03/08/21 03/25/22 03/24/22 History eye drops (Combigan) travoprost 0.004 % eye drops 1 drp ophthalmic (eye) BEDTIME 03/08/21 03/25/22 03/24/22 History doxycycline hyclate 100 mg tablet 100 mg PO MOWEFR 03/20/22 03/25/22 03/24/22 History mirabegron 25 mg tablet,extended 1 tab PO DAILY 03/25/22 03/25/22 03/24/22 History release 24 hr (Myrbetriq) omeprazole 40 mg capsule,delayed 40 mg PO DAILY@0630 03/25/22 03/25/22 03/24/22 History release Physical Exam Vital Signs: Vital Signs: Last Vital Signs Temp 98.6 F 04/14/22 14:25 Pulse 96 04/14/22 14:25 Resp 22 H 04/14/22 14:25 BP 121/76 04/14/22 14:25 Pulse Ox 99 04/14/22 14:25 O2 Del Method 04/14/22 14:25 O2 Flow Rate 15 04/14/22 13:33 Oxygen Flow Rate 15 04/14/22 12:20 BMI result Body Mass Index 22.9 Const: General: no acute distress and alert Nutritional Appearance: not obese Orientation/consciousness: Other orientation findings ( oriented) HEENT: Head: Yes atraumatic Mouth: no other ( thrush) Throat: No postnasal drainage Eyes: General: appearance normal, both eyes and all related structures Sclerae: sclerae normal EOM: EOMs intact bilaterally Neck: Neck: Yes supple Lymphatic: no lymphadenopathy noted Resp: Effort & Inspection: normal respiratory effort and no use of accessory muscles Auscultation: clear to auscultation bilaterally Cardio: Rate: regular rate Rhythm: regular rhythm Heart sounds: no gallops, no murmurs and no rubs GI: Palpation (GI): Soft to palpation and Other GI palpation findings present ( nontender) Skin: General skin exam: other ( warm) Rashes: no rashes Extrem: General: No clubbing, No cyanosis and No edema Results Labs 04/14/22 12:33 04/14/22 12:33 Labs: Laboratory Results - last 24 hr 04/14/22 04/14/22 04/14/22 12:33 12:33 12:33 MCV 87.0 MCH 26.2 L MCHC 30.2 L RDW 14.6 Plt Count 227 D MPV 9.5 Immature Gran % (Auto) 0.4 Neut % (Auto) 88.3 H Lymph % (Auto) 4.3 L [place] % (Auto) 4.1 Eos % (Auto) 2.6 Baso % (Auto) 0.3 Lymph # (Auto) 0.5 L [place] # (Auto) 0.5 Eos # (Auto) 0.3 Baso # (Auto) 0.0 Abs Immat Gran (auto) 0.04 H Absolute Neuts (auto) 9.7 H Absolute Nucleated RBC 0.000 Nucleated RBC % (auto) 0.0 PT INR Anion Gap 13 Estim Creat Clear Calc 86.6 Estimated GFR > 60 Random Glucose 217 H Calcium 8.2 L Total Bilirubin 0.4 AST 15 ALT 25 Alkaline Phosphatase 76 Troponin I High Sens 4.0 Total Protein 6.8 Albumin 3.5 Blood Type Antibody Screen Crossmatch 04/14/22 04/14/22 12:33 13:16 MCV MCH MCHC RDW Plt Count MPV Immature Gran % (Auto) Neut % (Auto) Lymph % (Auto) [place] % (Auto) Eos % (Auto) Baso % (Auto) Lymph # (Auto) [place] # (Auto) Eos # (Auto) Baso # (Auto) Abs Immat Gran (auto) Absolute Neuts (auto) Absolute Nucleated RBC Nucleated RBC % (auto) PT 14.9 H INR 1.3 H Anion Gap Estim Creat Clear Calc Estimated GFR Random Glucose Calcium Total Bilirubin AST ALT Alkaline Phosphatase Troponin I High Sens Total Protein Albumin Blood Type O Positive Antibody Screen NEGATIVE Crossmatch See Detail Imaging Radiologist's Impressions: Impressions Chest CTA 04/14/22 13:17 IMPRESSION: 1. No thoracic aortic enlargement or dissection. No mediastinal hematoma. 2. Suboptimal enhancement pulmonary arteries. No central pulmonary embolism. No right heart strain. 3. Chronic diffuse lung disease with extensive bronchiectasis and cysts, coarsening bronchiolar markings, and accentuation bronchovascular axial interstitium. No lobar or segmental airspace consolidation. No air-fluid levels. VTE: negative Assessment and Plan (1) Hemoptysis: Status: Acute (2) Supplemental oxygen dependent: Status: Acute (3) COPD (chronic obstructive pulmonary disease): Status: Acute (4) Paroxysmal atrial fibrillation: Status: Acute (5) Bronchiectasis: Status: Acute (6) Congestive heart failure: Qualifiers: Heart failure type: systolic Heart failure chronicity: chronic Qualified Code(s): I50.22 - Chronic systolic (congestive) heart failure Status: Acute Plan Assessment: 81-year-old gentleman with underlying COPD on 2 L, bronchiectasis with multiple exacerbations with ESBL organism, AFib on anticoagulation, now admitted after an episode of large volume hemoptysis after a coughing episode with no further recurrence Plan: Neuro: No acute issues. Cardiac: No acute issues. Underlying AFib. Anticoagulation stopped secondary to hemoptysis. Pulmonary: Airway watch. No rebleeding. CT angio chest with no evidence of pulmonary aneurysms. Underlying COPD and bronchiectasis. Renal: No acute issues. Endo: No acute issues. GI: No acute issues. ID: No acute issues Heme/Onc: No acute issues. Psych: No acute issues. Miscellaneous: No acute issues. Prophylaxis: Intermittent pneumatic compression Diet: Regular Time Spent With Patient Time: Total time managing care of this patient today ____ minutes.
[2022-04-14 15:51] LABS: COVID-19 Test Negative (Negative); IDNOW Serial# BCCEAD1C
[2022-04-14] MEDS: Albuterol Sulfate (0.083%) 2.5 MG/3 ML VIAL.NEB INHALE (21:02)
--- NOTE | 2022-04-14 21:29 | PHA.MEDREC ---
Pharmacy Consult ? Medication Reconciliation Pharmacy has REVIEWED the medication reconciliation.
[2022-04-15] VITALS (20 sets, daily range): BP systolic 103–135; BP diastolic 44–77; PULSE 74–107; RESP 15–34; TEMP 36.6–37.6; O2SAT 92–98; BMI 21.8
[2022-04-15] MEDS: Albuterol Sulfate (0.083%) 2.5 MG/3 ML VIAL.NEB INHALE (04:51)
[2022-04-15 05:36] LABS: VBG Base Excess 8.5 mmol/L; VBG HCO3 34 mmol/L (22-26); VBG pCO2 54 mmHg; VBG pH 7.41 (7.32-7.43); VBG pO2 36 mmHg
[2022-04-15 05:39] LABS: Venous Blood Gas Refer to POC result
[2022-04-15 05:45] LABS: MANUAL DIFF FLAG NO
[2022-04-15 05:49] LABS: Basophils Percent Auto 0.2 % (0-2); Eosinophils Absolute Auto 0.4 X10*3/uL (0.0-0.4); Eosinophils Percent Auto 2.6 % (0-4); Hematocrit 39.7 % (42.0-52.0); Imm Gran Abs Auto 0.05 X10*3/uL (0.00-0.03); Imm Gran Pct Auto 0.3 % (0.0-0.4); Lymphocytes Absolute Auto 0.7 X10*3/uL (1.2-4.9); Lymphocytes Percent Auto 4.4 % (20-40); Mean Corpuscular HGB Conc 30.2 g/dl (31.0-36.0); Mean Corpuscular Volume 86.1 fL (80.0-98.0); Mean Platelet Volume 9.5 fL (9.4-12.4); Monocytes Absolute Auto 0.9 X10*3/uL (0.1-1.2); Neutrophils Absolute Auto 13.2 x10*3/uL (2.0-8.3); Neutrophils Percent Auto 86.5 % (45-73); Platelet Count 211 X10*3/uL (160-400); Red Blood Count 4.61 X10*6/uL (4.60-5.80); Red Cell Distribution Width 14.5 % (11.0-16.0); White Blood Count 15.3 X10*3/uL (4.8-10.8)
[2022-04-15 06:03] LABS: Albumin Level 3.3 g/dL (3.5-5.0); Anion Gap 11 (12-20); Blood Urea Nitrogen 13 mg/dL (9-16); Calcium 8.4 mg/dL (8.4-10.2); Carbon Dioxide 31 mmol/L (22-29); Chloride 102 mmol/L (96-108); Creatinine Clr Calc Pharmacy 88.1; Estimated Glomerular Filt Rate > 60; Glucose Random 120 mg/dL (60-115); Phosphorus 2.9 mg/dL (2.7-4.5); Potassium 4.4 mmol/L (3.3-5.1); Sodium 140 mmol/L (135-145)
--- NOTE | 2022-04-15 06:24 | PC.NURSE ---
assumed care at 1900, Tajik speaking only, communication analyst at bedside, a&o, sr on tele bp stable, Respirations labored, made aware, new order for duonebs, with good effect, no episodes of coughing or Hemoptysis this shift, sats stable on 2LNC. urinating in urinal. no complaints of pain. independent with repositioning.
--- NOTE | 2022-04-15 09:59 | PM.CCPN ---
Subjective Subjective Date of Service: 04/15/22 Interval History: 81-year-old gentleman with underlying COPD on supplemental oxygen 2 L, bronchiectasis prior JESSA status post partial treatment, prior bronchiectasis exacerbation with ESBL E coli status post PICC placement and ertapenem with good clinical response, AFib on anticoagulation, now being admitted with an episode of large volume hemoptysis after coughing. On ER evaluation CT angio with no pulmonary aneurysms. Hemoptysis resolved. Airway watch in the intensive care unit overnight. No events overnight. Coughing up small amount of clots, but no blood. Critical Care Time (minutes): 0 Physical Exam Vital Signs: Vital Signs: Last Vital Signs Temp 97.9 F 04/15/22 07:54 Pulse 106 H 04/15/22 09:00 Resp 15 04/15/22 09:00 BP 119/77 04/15/22 09:00 Pulse Ox 94 04/15/22 09:00 O2 Del Method 04/15/22 09:00 O2 Flow Rate 2 04/15/22 09:00 Oxygen Flow Rate 15 04/14/22 12:20 BMI result Body Mass Index 21.8 Const: General: no acute distress, alert and awake Eyes: Sclerae: sclerae normal EOM: EOMs intact bilaterally Neck: Neck: Yes no lymphadenopathy, Yes trachea midline and Yes supple Resp: Effort & Inspection: normal respiratory effort and no respiratory distress Auscultation: clear to auscultation bilaterally Cardio: Rate: regular rate Rhythm: regular rhythm Heart sounds: no gallops, no murmurs and no rubs GI: Palpation (GI): Soft to palpation and Other GI palpation findings present ( Nontender) Auscultation: normal bowel sounds Extrem: General: Yes no pedal edema, No clubbing and No cyanosis Objective Data Labs 04/15/22 05:31 04/15/22 05:31 Labs: Laboratory Results - last 24 hr 04/14/22 04/14/22 04/14/22 12:33 12:33 12:33 WBC 11.0 H RBC 4.46 L Hgb 11.7 L Hct 38.8 L MCV 87.0 MCH 26.2 L MCHC 30.2 L RDW 14.6 Plt Count 227 D MPV 9.5 Immature Gran % (Auto) 0.4 Neut % (Auto) 88.3 H Lymph % (Auto) 4.3 L [place] % (Auto) 4.1 Eos % (Auto) 2.6 Baso % (Auto) 0.3 Lymph # (Auto) 0.5 L [place] # (Auto) 0.5 Eos # (Auto) 0.3 Baso # (Auto) 0.0 Abs Immat Gran (auto) 0.04 H Absolute Neuts (auto) 9.7 H Absolute Nucleated RBC 0.000 Nucleated RBC % (auto) 0.0 PT INR VBG pH VBG pCO2 VBG pO2 VBG HCO3 VBG O2 Saturation VBG Base Excess Sodium 138 Potassium 4.4 Chloride 104 Carbon Dioxide 25 Anion Gap 13 BUN 12 Creatinine 0.71 Estim Creat Clear Calc 86.6 Estimated GFR > 60 Random Glucose 217 H Calcium 8.2 L Phosphorus Magnesium Total Bilirubin 0.4 AST 15 ALT 25 Alkaline Phosphatase 76 Troponin I High Sens 4.0 Total Protein 6.8 Albumin 3.5 COVID-19 ([facility]) COVID-19 Clin Com Blood Type Antibody Screen Crossmatch 04/14/22 04/14/22 04/14/22 12:33 13:16 15:26 WBC RBC Hgb Hct MCV MCH MCHC RDW Plt Count MPV Immature Gran % (Auto) Neut % (Auto) Lymph % (Auto) [place] % (Auto) Eos % (Auto) Baso % (Auto) Lymph # (Auto) [place] # (Auto) Eos # (Auto) Baso # (Auto) Abs Immat Gran (auto) Absolute Neuts (auto) Absolute Nucleated RBC Nucleated RBC % (auto) PT 14.9 H INR 1.3 H VBG pH VBG pCO2 VBG pO2 VBG HCO3 VBG O2 Saturation VBG Base Excess Sodium Potassium Chloride Carbon Dioxide Anion Gap BUN Creatinine Estim Creat Clear Calc Estimated GFR Random Glucose Calcium Phosphorus Magnesium Total Bilirubin AST ALT Alkaline Phosphatase Troponin I High Sens Total Protein Albumin COVID-19 ([facility]) Negative COVID-19 Clin Com See Note Blood Type O Positive Antibody Screen NEGATIVE Crossmatch See Detail 04/15/22 04/15/22 04/15/22 05:28 05:31 05:31 WBC 15.3 H RBC 4.61 Hgb 12.0 L Hct 39.7 L MCV 86.1 MCH 26.0 L MCHC 30.2 L RDW 14.5 Plt Count 211 MPV 9.5 Immature Gran % (Auto) 0.3 Neut % (Auto) 86.5 H Lymph % (Auto) 4.4 L [place] % (Auto) 6.0 Eos % (Auto) 2.6 Baso % (Auto) 0.2 Lymph # (Auto) 0.7 L [place] # (Auto) 0.9 Eos # (Auto) 0.4 Baso # (Auto) 0.0 Abs Immat Gran (auto) 0.05 H Absolute Neuts (auto) 13.2 H Absolute Nucleated RBC 0.000 Nucleated RBC % (auto) 0.0 PT INR VBG pH 7.41 VBG pCO2 54 VBG pO2 36 VBG HCO3 34 H VBG O2 Saturation 53.0 VBG Base Excess 8.5 Sodium 140 Potassium 4.4 Chloride 102 Carbon Dioxide 31 H Anion Gap 11 L BUN 13 Creatinine 0.66 Estim Creat Clear Calc 88.1 Estimated GFR > 60 Random Glucose 120 H Calcium 8.4 Phosphorus 2.9 Magnesium 2.0 Total Bilirubin AST ALT Alkaline Phosphatase Troponin I High Sens Total Protein Albumin 3.3 L COVID-19 ([facility]) COVID-19 Clin Com Blood Type Antibody Screen Crossmatch Progress Note: A&P Assessment and plan (1) Hemoptysis: Status: Acute (2) Supplemental oxygen dependent: Status: Acute (3) COPD (chronic obstructive pulmonary disease): Status: Acute (4) Paroxysmal atrial fibrillation: Status: Acute (5) Bronchiectasis: Status: Acute (6) Congestive heart failure: Status: Acute Plan Assessment: 81-year-old gentleman with underlying COPD on 2 L, bronchiectasis with multiple exacerbations with ESBL organism, AFib on anticoagulation, now admitted after an episode of large volume hemoptysis after a coughing episode with no further recurrence Plan: Neuro: No acute issues. Cardiac: No acute issues. Underlying chronic congestive heart failure and AFib. Anticoagulation stopped secondary to hemoptysis. Pulmonary: Airway watch. No rebleeding. CT angio chest with no evidence of pulmonary aneurysms. Underlying COPD and bronchiectasis. Coughing up small amount of clots. Renal: No acute issues. Endo: No acute issues. GI: No acute issues. ID: No acute issues Heme/Onc: No acute issues. Psych: No acute issues. Miscellaneous: No acute issues. Prophylaxis: Intermittent pneumatic compression Diet: Regular Stable for transfer to telemetry ayala for addition 24 hours of monitoring, if stable at that time, will be reasonable to discharge. Transfer discussed with Dr. Tobin. Quality Stroke Does the patient have a stroke diagnosis?: No VTE Prior VTE?: No VTE Risk Level:: Medical - moderate - high VTE Device Contraindication: N/A - Device Ordered VTE Drug Contraindication: Treatment Not Indicated
[2022-04-15] MEDS: Finasteride 5 MG TABLET PO (10:11)
[2022-04-15] MEDS: Brimonidine Tartrate 0.2% Oph 5 ML BOTTLE 1 DROP EYE-BOTH ×2 (10:11→22:32)
[2022-04-15] MEDS: Omeprazole 40 MG CAPSULE.DR PO (10:11)
[2022-04-15] MEDS: Albuterol/Iprat 2.5/0.5MG 3 ML AMPUL.NEB INHALE (14:18)
--- NOTE | 2022-04-15 17:55 | PC.NURSE ---
pt has a temp of 99.7F (temporal. notified. giving PRN tylenol. Will continue to monitor
[2022-04-15] MEDS: Acetaminophen 325 MG TABLET 650 MG PO (18:34)
[2022-04-15] MEDS: Tamsulosin HCL 0.4 MG CAPSULE PO (21:00)
--- NOTE | 2022-04-15 21:30 | PC.NURSE ---
Pt tachypneic, RR 34, abd breathing. 96% on 2L n/c, HR 91, lungs w/rhonci. MD notified and ordered stat CXR. Respiratory notified and gave breathing treatment.
[2022-04-16] VITALS (9 sets, daily range): BP systolic 101–117; BP diastolic 46–62; PULSE 61–111; RESP 18–20; TEMP 36.7–37.1; O2SAT 92–98; BMI 21.6
[2022-04-16] MEDS: Omeprazole 40 MG CAPSULE.DR PO (05:36)
[2022-04-16 07:28] LABS: MANUAL DIFF FLAG NO
[2022-04-16] MEDS: Albuterol/Iprat 2.5/0.5MG 3 ML AMPUL.NEB INHALE ×3 (07:32→19:44)
[2022-04-16 07:48] LABS: Basophils Percent Auto 0.2 % (0-2); Eosinophils Absolute Auto 0.7 X10*3/uL (0.0-0.4); Eosinophils Percent Auto 5.3 % (0-4); Hematocrit 37.5 % (42.0-52.0); Hemoglobin 11.3 g/dl (14.0-18.0); Imm Gran Abs Auto 0.06 X10*3/uL (0.00-0.03); Imm Gran Pct Auto 0.4 % (0.0-0.4); Lymphocytes Absolute Auto 0.9 X10*3/uL (1.2-4.9); Lymphocytes Percent Auto 6.9 % (20-40); Mean Corpuscular HGB Conc 30.1 g/dl (31.0-36.0); Mean Corpuscular Hemoglobin 25.7 pg (27.0-33.0); Mean Corpuscular Volume 85.4 fL (80.0-98.0); Mean Platelet Volume 10.1 fL (9.4-12.4); Monocytes Absolute Auto 1.1 X10*3/uL (0.1-1.2); Monocytes Percent Auto 8.2 % (2-11); Neutrophils Absolute Auto 10.6 x10*3/uL (2.0-8.3); Platelet Count 205 X10*3/uL (160-400); Red Blood Count 4.39 X10*6/uL (4.60-5.80); Red Cell Distribution Width 14.5 % (11.0-16.0); White Blood Count 13.4 X10*3/uL (4.8-10.8)
[2022-04-16] MEDS: Finasteride 5 MG TABLET PO (07:48)
[2022-04-16] MEDS: Brimonidine Tartrate 0.2% Oph 5 ML BOTTLE 1 DROP EYE-BOTH ×2 (07:49→20:02)
[2022-04-16 08:35] LABS: Alanine Aminotransferase 14 U/L (0-40); Alkaline Phosphatase 67 U/L (39-117); Anion Gap 15 (12-20); Aspartate Amino Transferase 10 U/L (5-37); Bilirubin Total 0.7 mg/dL (0.0-1.0); Blood Urea Nitrogen 13 mg/dL (9-16); Calcium 8.6 mg/dL (8.4-10.2); Carbon Dioxide 28 mmol/L (22-29); Chloride 101 mmol/L (96-108); Creatinine Clr Calc Pharmacy 83.8; Estimated Glomerular Filt Rate > 60; Glucose Fasting 108 mg/dL (60-99); Potassium 4.2 mmol/L (3.3-5.1); Sodium 140 mmol/L (135-145)
--- NOTE | 2022-04-16 10:35 | MHC.CM.PN ---
IMM DELIVERED CM MET WITH PT AND PET HOUSE SITTER JONY. LIVES IN A STUDIO APT ALONE. 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 USES 02 AT 2L AT BASELINE AND CPAP FOR SLEEP. +HCP ON FILE + COVID VAX X3 PCP DR. AREVALO AT [facility] [place]. PT DECLINES BLS ON DC, HAS OWN RIDE HOME.
[2022-04-16] MEDS: methylPREDNISolone Sod Succ 125 MG/2 ML VIAL IVPUSH (12:30)
--- NOTE | 2022-04-16 12:33 | P.PNIM_ITS ---
Subjective Subjective Date of Service: 04/16/22 Interval History: No further hemoptysis overnight. This a.m. extremely wheezy Review of Systems Denies chest pain Admits to shortness of breath with wheezing Denies nausea vomiting diarrhea Denies fever chills Physical Exam Vital Signs: Vital Signs: Last Vital Signs Temp 98.5 F 04/16/22 11:53 Pulse 78 04/16/22 11:53 Resp 18 04/16/22 11:53 BP 110/62 04/16/22 11:53 Pulse Ox 95 04/16/22 11:53 O2 Del Method 04/16/22 11:53 O2 Flow Rate 2 04/16/22 11:53 Oxygen Flow Rate 15 04/14/22 12:20 BMI result Body Mass Index 21.6 Const: Other: Awake alert no acute distress. Able speak in full sentences Resp: Other: Dense expiratory wheezes throughout Cardio: Other: No S4; positive S1-S2; no S3 murmurs rubs or gallops GI: Other: Soft nontender nondistended normoactive bowel sounds Extrem: Other: No edema bilaterally Objective Data Active Medications Acetaminophen (Acetaminophen 325 Mg Tablet) 650 mg PO Q6H PRN PRN Reason: Pain, Mild (Pain Scale 1-3) Last Admin: 04/15/22 18:34 Dose: 650 mg Documented By: JERAMIE Albuterol/Ipratropium (Albuterol/Iprat 2.5/0.5mg 3 Ml Ampul.Neb) 3 ml INHALE RQ6H WHILE AWAKE [facility] [place] Last Admin: 04/16/22 07:32 Dose: 3 ml Documented By: TAYLOR Brimonidine Tartrate (Brimonidine Tartrate 0.2% Oph 5 Ml Bottle) 1 drop EYE- BOTH BID [facility] [place] Last Admin: 04/16/22 07:49 Dose: 1 drop Documented By: GIUSEPPE Finasteride (Finasteride 5 Mg Tablet) 5 mg PO DAILY [facility] [place] Last Admin: 04/16/22 07:48 Dose: 5 mg Documented By: GIUSEPPE Omeprazole (Omeprazole 40 Mg Capsule.) 40 mg PO DAILY@0630 [facility] [place] Last Admin: 04/16/22 05:36 Dose: 40 mg Documented By: YAO Tamsulosin HCl (Tamsulosin Hcl 0.4 Mg Capsule) 0.4 mg PO BEDTIME TON Last Admin: 04/15/22 21:00 Dose: 0.4 mg Documented By: YAO Labs 04/16/22 06:54 04/16/22 06:54 Labs: Laboratory Results - last 24 hr 04/16/22 04/16/22 06:54 06:54 MCV 85.4 MCH 25.7 L MCHC 30.1 L RDW 14.5 Plt Count 205 MPV 10.1 Immature Gran % (Auto) 0.4 Neut % (Auto) 79.0 H Lymph % (Auto) 6.9 L [place] % (Auto) 8.2 Eos % (Auto) 5.3 H Baso % (Auto) 0.2 Lymph # (Auto) 0.9 L [place] # (Auto) 1.1 Eos # (Auto) 0.7 H Baso # (Auto) 0.0 Abs Immat Gran (auto) 0.06 H Absolute Neuts (auto) 10.6 H Absolute Nucleated RBC 0.000 Nucleated RBC % (auto) 0.0 Anion Gap 15 Estim Creat Clear Calc 83.8 Estimated GFR > 60 Fasting Glucose 108 H Calcium 8.6 Total Bilirubin 0.7 AST 10 ALT 14 Alkaline Phosphatase 67 Total Protein 6.0 L Albumin 3.0 L Assessment and Plan (1) Hemoptysis: Status: Acute (2) Bronchiectasis with (acute) exacerbation: Status: Acute (3) Paroxysmal atrial fibrillation: Status: Acute Plan 81-year-old gentleman with underlying COPD on supplemental oxygen 2 L, bronchiectasis prior JESSA status post partial treatment,? prior bronchiectasis exacerbation with ESBL E coli status post PICC placement and ertapenem with good clinical response, AFib on anticoagulation, now being admitted with an episode of large volume hemoptysis after coughing.? On ER evaluation CT angio with no pulmonary aneurysms.? Hemoptysis resolved.? Airway watch in the intensive care unit overnight; no further hemoptysis and transfer the floor. No hemoptysis overnight however now dense expiratory wheeze and rhonchorous cough 1. Hemoptysis -none since admission -continue to monitor hemoglobin 2. Bronchiectasis with acute exacerbation -will give Solu-Medrol 125 x 1 and then 60 q.6 for 24 hours -DuoNebs as ordered -WBC trending downward; check in a.m.. No indication for antibiotics at this time 3. Paroxysmal atrial fibrillation -adequate rate control -no further Eliquis secondary to hemoptysis Full code Boots Patient requires ongoing hospitalization for treatment of bronchiectasis with acute exacerbation requiring steroids Time Spent With Patient Time: Total time managing care of this patient today ____ minutes. Quality Stroke Does the patient have a stroke diagnosis?: No VTE Prior VTE?: No VTE Risk Level:: Medical - moderate - high VTE Device Contraindication: N/A - Device Ordered VTE Drug Contraindication: Treatment Not Indicated
[2022-04-16] MEDS: Tamsulosin HCL 0.4 MG CAPSULE PO (20:01)
[2022-04-17] VITALS (9 sets, daily range): BP systolic 105–144; BP diastolic 53–66; PULSE 70–97; RESP 16–20; TEMP 36.3–37.1; O2SAT 91–98; BMI 21.3
[2022-04-17] MEDS: Omeprazole 40 MG CAPSULE.DR PO (05:49)
[2022-04-17] MEDS: Albuterol/Iprat 2.5/0.5MG 3 ML AMPUL.NEB INHALE ×3 (07:51→19:47)
[2022-04-17] MEDS: Finasteride 5 MG TABLET PO (08:03)
[2022-04-17] MEDS: Brimonidine Tartrate 0.2% Oph 5 ML BOTTLE 1 DROP EYE-BOTH (08:04)
[2022-04-17 08:10] LABS: Alanine Aminotransferase 14 U/L (0-40); Albumin Level 3.4 g/dL (3.5-5.0); Alkaline Phosphatase 73 U/L (39-117); Anion Gap 18 (12-20); Aspartate Amino Transferase 14 U/L (5-37); Bilirubin Total 0.4 mg/dL (0.0-1.0); Blood Urea Nitrogen 19 mg/dL (9-16); Calcium 9.4 mg/dL (8.4-10.2); Carbon Dioxide 22 mmol/L (22-29); Chloride 101 mmol/L (96-108); Creatinine Clr Calc Pharmacy 81.5; Estimated Glomerular Filt Rate > 60; Glucose Fasting 171 mg/dL (60-99); Potassium 4.8 mmol/L (3.3-5.1); Sodium 136 mmol/L (135-145)
--- NOTE | 2022-04-17 09:10 | P.CDIC_ITS ---
CDI Concurrent Query Documentation Clarification: PHYSICIAN'S DOCUMENTATION REQUEST Date of Query: 04/17/22 0910 Patient Name: Yao Herman Admit Date: 04/14/22 Dear Doctor, A review of the medical record indicates additional documentation may be needed. Please review below and update the documentation accordingly. Clinical Indicators: Risk Factors/Clinical Indicators/Treatments COPD - on supplemental oxygen Pulse ox 91 Supplemental oxygen 2 liters RR 34 ABG's complete ABGs (1 or more) ? PO2 <60 or RA SpO2 <91% ? PcO2 >50 and pH <7.35 ? pO2 decrease or pcO2 increase by 10 mm/Hg from baseline if known Clarify which of the following accurately represents the patient's respiratory status: Chronic respiratory failure, O2 dependent * Acute respiratory failure * Acute on chronic respiratory failure * COPD exacerbation * Other (please specify) * Unable to determine Use of terms such as suspected, likely, concern for, or probable (associated wi th a specific diagnosis that is being evaluated, monitored, or treated as if it exists) are acceptable and can be coded in the inpatient setting, when documented at the time of discharge. Thank you, Libra Arriaga [facility], CDIS Extension: [phone] Please use your independent medical judgment in providing your response. THIS QUERY IS PART OF THE PERMANENT MEDICAL RECORD Provider Response: Other Other Diagnosis: Acute on chronic respiratory failure
--- NOTE | 2022-04-17 11:40 | MHC.CM.PN ---
Per ROUNDS discussion, Patient is not yet medically cleared for dc (SOB & Wheezing); home/resume services is the goal and CM will continue to follow.
--- NOTE | 2022-04-17 14:35 | HO.PM.IMPN ---
Subjective Subjective Date of Service: 04/17/22 Interval History: Still with productive cough. Remains afebrile Review of Systems Denies chest pain Admits to shortness of breath with exertion Denies fever chills Denies nausea vomiting diarrhea Physical Exam Vital Signs: Vital Signs: Last Vital Signs Temp 97.3 F 04/17/22 12:00 Pulse 97 04/17/22 12:00 Resp 16 04/17/22 12:00 BP 111/53 L 04/17/22 12:00 Pulse Ox 98 04/17/22 12:00 O2 Del Method 04/17/22 12:00 O2 Flow Rate 2 04/17/22 12:00 Oxygen Flow Rate 15 04/14/22 12:20 BMI result Body Mass Index 21.3 Const: Other: Awake alert no acute distress. Able speak in full sentences Resp: Other: Dense expiratory wheezes throughout Cardio: Other: No S4; positive S1-S2; no S3 murmurs rubs or gallops GI: Other: Soft nontender nondistended normoactive bowel sounds Extrem: Other: No edema bilaterally Objective Data Active Medications Acetaminophen (Acetaminophen 325 Mg Tablet) 650 mg PO Q6H PRN PRN Reason: Pain, Mild (Pain Scale 1-3) Last Admin: 04/15/22 18:34 Dose: 650 mg Documented By: JERAMIE Albuterol/Ipratropium (Albuterol/Iprat 2.5/0.5mg 3 Ml Ampul.Neb) 3 ml INHALE RQ6H WHILE AWAKE [facility] Last Admin: 04/17/22 07:51 Dose: 3 ml Documented By: HESHAM Brimonidine Tartrate (Brimonidine Tartrate 0.2% Oph 5 Ml Bottle) 1 drop EYE-BOTH BID [facility] Last Admin: 04/17/22 08:04 Dose: 1 drop Documented By: GIUSEPPE Carvedilol (Carvedilol 12.5 Mg Tablet) 12.5 mg PO BID [facility]; Protocol Docusate Sodium (Docusate Sodium 100 Mg Capsule) 100 mg PO BID [facility] Finasteride (Finasteride 5 Mg Tablet) 5 mg PO DAILY [facility] Last Admin: 04/17/22 08:03 Dose: 5 mg Documented By: GIUSEPPE Doxycycline Hyclate 100 mg/ (Sodium Chloride) 250 mls @ 166.67 mls/hr IV Q12H [facility] Ceftriaxone Sodium 2 gm/ (Sodium Chloride) 50 mls @ 100 mls/hr IV Q24H [facility] Methylprednisolone Sodium Succinate (Methylprednisolone Sod Succ 125 Mg/2 Ml Vial) 60 mg IVPUSH Q6H [facility] Non-Formulary Medication (Lovastatin) 10 mg PO DAILY [facility] Non-Formulary Medication (Brimonidine-Timolol [Combigan]) 1 drop EYE-BOTH BID [facility] Non-Formulary Medication (Travoprost) 1 drop EYE-BOTH BEDTIME [facility] Omeprazole (Omeprazole 40 Mg Capsule.) 40 mg PO DAILY@0630 [facility] Last Admin: 04/17/22 05:49 Dose: 40 mg Documented By: KEILA Sacubitril/Valsartan (Sacubitril/Valsartan 1 Tab Tablet) 1 tab PO BID [facility]; Protocol Tamsulosin HCl (Tamsulosin Hcl 0.4 Mg Capsule) 0.4 mg PO BEDTIME [facility] Last Admin: 04/16/22 20:01 Dose: 0.4 mg Documented By: KEILA Tamsulosin HCl (Tamsulosin Hcl 0.4 Mg Capsule) 0.4 mg PO DAILY [facility] Labs 04/16/22 06:54 04/17/22 06:33 Labs: Laboratory Results - last 24 hr 04/17/22 06:33 Anion Gap 18 Estim Creat Clear Calc 81.5 Estimated GFR > 60 Fasting Glucose 171 H Calcium 9.4 D Total Bilirubin 0.4 AST 14 ALT 14 Alkaline Phosphatase 73 Total Protein 7.0 Albumin 3.4 L Assessment and Plan (1) Hemoptysis: Status: Acute (2) Bronchiectasis with (acute) exacerbation: Status: Acute (3) Paroxysmal atrial fibrillation: Status: Acute Plan 81-year-old gentleman with underlying COPD on supplemental oxygen 2 L, bronchiectasis prior JESSA status post partial treatment,? prior bronchiectasis exacerbation with ESBL E coli status post PICC placement and ertapenem with good clinical response, AFib on anticoagulation, now being admitted with an episode of large volume hemoptysis after coughing.? On ER evaluation CT angio with no pulmonary aneurysms.? Hemoptysis resolved.? Airway watch in the intensive care unit overnight; no further hemoptysis and transfer the floor. No hemoptysis overnight however now dense expiratory wheeze and rhonchorous cough 1. Hemoptysis -none since admission -continue to monitor hemoglobin... Stable 2. Bronchiectasis with acute exacerbation -will give Solu-Medrol 125 x 1 and then 60 q.6 for 24 hours -DuoNebs as ordered -given productive cough worsening wheezing will start on doxycycline and ceftriaxone 3. Paroxysmal atrial fibrillation -adequate rate control -no further Eliquis secondary to hemoptysis Full code Boots Patient requires ongoing hospitalization for treatment of bronchiectasis with acute exacerbation requiring steroids Time Spent With Patient Time: Total time managing care of this patient today ____ minutes. Quality Stroke Does the patient have a stroke diagnosis?: No VTE Prior VTE?: No VTE Risk Level:: Medical - moderate - high VTE Device Contraindication: N/A - Device Ordered VTE Drug Contraindication: Treatment Not Indicated
[2022-04-17] MEDS: methylPREDNISolone Sod Succ 125 MG/2 ML VIAL 60 MG IVPUSH ×2 (15:38→21:42)
[2022-04-17] MEDS: cefTRIAXone sodium 2 GM in 0.9 % Sodium Chloride 50 ML IV (15:42)
[2022-04-17] MEDS: Doxycycline Hyclate 100 MG in 0.9 % Sodium Chloride 250 ML 166.67 MG IV (15:42)
[2022-04-17] MEDS: Latanoprost 0.005 % Ophth Sol 2.5 ML DROPS 1 DROP EYE-BOTH (21:39)
[2022-04-17] MEDS: carvediloL 12.5 MG TABLET PO (21:40)
[2022-04-17] MEDS: Docusate Sodium 100 MG CAPSULE PO (21:40)
[2022-04-17] MEDS: Tamsulosin HCL 0.4 MG CAPSULE PO (21:40)
[2022-04-17] MEDS: Sacubitril/Valsartan 24/26 1 TAB TABLET PO (21:40)
[2022-04-17] MEDS: guaiFENesin DM 100/10/5 ML 5 ML SYRUP PO (22:47)
[2022-04-18 03:37] VITALS: BP 104/62; PULSE 68; RESP 20; TEMP 36.2; O2SAT 92
[2022-04-18] MEDS: Doxycycline Hyclate 100 MG in 0.9 % Sodium Chloride 250 ML 166.67 MG IV (04:23)
[2022-04-18] MEDS: methylPREDNISolone Sod Succ 125 MG/2 ML VIAL 60 MG IVPUSH ×2 (04:23→09:06)
[2022-04-18 06:00] VITALS: BMI 21.5
[2022-04-18] MEDS: Omeprazole 40 MG CAPSULE.DR PO (06:08)
[2022-04-18] MEDS: guaiFENesin DM 100/10/5 ML 5 ML SYRUP PO (06:08)
[2022-04-18 07:22] LABS: Basophils Percent Auto 0.1 % (0-2); Hematocrit 34.5 % (42.0-52.0); Hemoglobin 10.7 g/dl (14.0-18.0); Imm Gran Abs Auto 0.05 X10*3/uL (0.00-0.03); Imm Gran Pct Auto 0.5 % (0.0-0.4); Lymphocytes Absolute Auto 0.3 X10*3/uL (1.2-4.9); Lymphocytes Percent Auto 3.3 % (20-40); MANUAL DIFF FLAG SCAN; Mean Corpuscular Volume 83.7 fL (80.0-98.0); Mean Platelet Volume 10.3 fL (9.4-12.4); Monocytes Absolute Auto 0.2 X10*3/uL (0.1-1.2); Monocytes Percent Auto 2.4 % (2-11); Neutrophils Percent Auto 93.7 % (45-73); Platelet Count 236 X10*3/uL (160-400); Red Blood Count 4.12 X10*6/uL (4.60-5.80); Red Cell Distribution Width 14.2 % (11.0-16.0); SCAN SMEAR FLAG 1; White Blood Count 9.6 X10*3/uL (4.8-10.8)
[2022-04-18 07:42] LABS: Alanine Aminotransferase 16 U/L (0-40); Albumin Level 3.2 g/dL (3.5-5.0); Alkaline Phosphatase 65 U/L (39-117); Anion Gap 16 (12-20); Aspartate Amino Transferase 9 U/L (5-37); Bilirubin Total 0.3 mg/dL (0.0-1.0); Blood Urea Nitrogen 20 mg/dL (9-16); Calcium 8.7 mg/dL (8.4-10.2); Carbon Dioxide 25 mmol/L (22-29); Chloride 102 mmol/L (96-108); Creatinine Clr Calc Pharmacy 87.4; Estimated Glomerular Filt Rate > 60; Glucose Fasting 189 mg/dL (60-99); Potassium 4.4 mmol/L (3.3-5.1); Sodium 139 mmol/L (135-145); Total Protein 6.2 g/dL (6.5-8.0)
[2022-04-18 07:43] VITALS: BP 117/58; PULSE 70; RESP 20; TEMP 36.4; O2SAT 99
[2022-04-18 07:48] LABS: SLIDE REVIEW VERIFIED
[2022-04-18] MEDS: Pravastatin Sodium 10 MG TABLET PO (09:05)
[2022-04-18] MEDS: Sacubitril/Valsartan 24/26 1 TAB TABLET PO (09:05)
[2022-04-18] MEDS: carvediloL 12.5 MG TABLET PO (09:05)
[2022-04-18] MEDS: Finasteride 5 MG TABLET PO (09:06)
[2022-04-18] MEDS: Brimonidine Tartrate 0.2% Oph 5 ML BOTTLE 1 DROP EYE-BOTH (09:14)
[2022-04-18] MEDS: timoloL maleate 0.5 % Oph Sol 5 ML DRBTL 1 DROP EYE-BOTH (09:15)
[2022-04-18 11:06] VITALS: BP 127/62; PULSE 72; RESP 24; TEMP 36.1; O2SAT 99
[2022-04-18] MEDS: Albuterol/Iprat 2.5/0.5MG 3 ML AMPUL.NEB INHALE (11:25)
[2022-04-18 11:26] VITALS: PULSE 75; RESP 18; O2SAT 95
--- NOTE | 2022-04-18 12:07 | PM.DS ---
DS: Providers Provider Date of Service: 04/18/22 Date of admission: 04/14/22 14:38 Date of discharge: 04/18/22 Primary care physician: Olga Calzada MD DS: Diagnosis Discharge Diagnosis (1) Hemoptysis: Status: Acute (2) Bronchiectasis with (acute) exacerbation: Status: Acute (3) Paroxysmal atrial fibrillation: Status: Acute DS: Summary Hospital Course Hospital Course: 81-year-old male with underlying COPD O2 dependent along with AFib on Eliquis presents from home after were a large volume hemoptysis. He presented to the ER in stable condition and had no further hemoptysis. He was admitted to the ICU overnight without acute issues. No further hemoptysis; hemoglobin was stable the next a.m.. He was transferred to telemetry where he was found to be extremely wheezy with productive cough of yellow sputum. He was started on doxycycline ceftriaxone and pulse dose steroids. Over the next 24 hours his lung exam improved dramatically and he is asking to be discharged to home. At this time is medically acceptable for him to be discharged home to complete a course of oral Ceftin; he currently takes doxy 3 times a week and he will continue same. He is given a prednisone taper will follow-up with diamond assorter/PCP as scheduled. 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 Discharge coordination time: Greater than 30 minutes Quality: Safe Use of Opioids Does Pt have an Active Cancer Diagnosis on the Problem List?: No Quality: Stroke Does the patient have a stroke diagnosis?: No Physical Exam Vital Signs: Vital Signs: Last Vital Signs Temp 97.0 F 04/18/22 11:06 Pulse 75 04/18/22 11:26 Resp 18 04/18/22 11:26 BP 127/62 04/18/22 11:06 Pulse Ox 99 04/18/22 11:06 O2 Del Method 04/18/22 11:06 O2 Flow Rate 2 04/18/22 11:06 Oxygen Flow Rate 15 04/14/22 12:20 BMI result Body Mass Index 21.5 Const: Other: Awake alert no acute distress. Able speak in full sentences Resp: Other: Good aeration to bases; scant expiratory wheezes throughout Cardio: Other: No S4; positive S1-S2; no S3 murmurs rubs or gallops GI: Other: Soft nontender nondistended normoactive bowel sounds Extrem: Other: No edema bilaterally DS: Data Data Completed and Pending Completed studies during hospitalization [Text1]: Procedures Insertion of Infusion Device into Right Cephalic Vein, Percutaneous Approach (12/07/21) Insertion of Infusion Device into Superior Vena Cava, Percutaneous Approach (12/07/21) Ultrasonography of Superior Vena Cava, Guidance (12/07/21) Labs on day of discharge: Laboratory Results - last 24 hr 04/18/22 04/18/22 06:50 06:50 WBC 9.6 RBC 4.12 L Hgb 10.7 L Hct 34.5 L MCV 83.7 MCH 26.0 L MCHC 31.0 RDW 14.2 Plt Count 236 MPV 10.3 Immature Gran % (Auto) 0.5 H Neut % (Auto) 93.7 H Lymph % (Auto) 3.3 L [place] % (Auto) 2.4 Eos % (Auto) 0.0 Baso % (Auto) 0.1 Lymph # (Auto) 0.3 L [place] # (Auto) 0.2 Eos # (Auto) 0.0 Baso # (Auto) 0.0 Abs Immat Gran (auto) 0.05 H Absolute Neuts (auto) 9.0 H Absolute Nucleated RBC 0.000 Nucleated RBC % (auto) 0.0 Smear Tech's Comments VERIFIED Sodium 139 Potassium 4.4 Chloride 102 Carbon Dioxide 25 Anion Gap 16 BUN 20 H Creatinine 0.66 Estim Creat Clear Calc 87.4 Estimated GFR > 60 Fasting Glucose 189 H Calcium 8.7 D Total Bilirubin 0.3 AST 9 ALT 16 Alkaline Phosphatase 65 Total Protein 6.2 L Albumin 3.2 L Discharge Plan Discharge Anticipated Discharge Date/Time: 04/18/22 11:59 Patient Disposition: Home, Self-Care Discharge Diagnosis: Hemoptysis Referrals: Olga North MD [Primary Care Provider] - 1 Week Discharge Medications: New prednisone 10 mg tablet See Rx Instructions .Route .COMPLEX Qty: 45 0RF Rx Instructions: 10 mg orally; 5 tabs p.o. daily x3 days; 4 tabs p.o. daily x3 days; 3 tabs daily x3 days; 2 tabs daily x3 days; 1 tab daily x3 days cefuroxime axetil 500 mg tablet 500 mg PO BID 7 Days Qty: 14 0RF Continued Entresto 24-26 mg tablet 1 tab PO BID 90 Days Qty: 180 3RF lovastatin 10 mg tablet 10 mg PO DAILY 90 Days Qty: 90 3RF polyethylene glycol 3350 17 gram powder in packet 17 g PO DAILY PRN (Reason: constipation) Qty: 30 0RF tamsulosin 0.4 mg capsule 0.4 mg PO DAILY Qty: 30 0RF docusate sodium 100 mg capsule 100 mg PO BID Qty: 60 0RF (DME) walker Misc See Rx Instructions .Route Qty: 1 0RF Label Comments: Pt states doesnot use Rx Instructions: with seat and wheels carvedilol 12.5 mg tablet 12.5 mg PO BID Qty: 60 0RF Protocol: Hold for SBP/HR < HOLD for SBP < : 90 HOLD for HR < : 60 albuterol sulfate 90 mcg/actuation HFA aerosol inhaler 2 puff inhalation Q4H PRN (Reason: shortness of breath or wheezing) Qty: 8.5 4RF travoprost 0.004 % drops 1 drp ophthalmic (eye) BEDTIME Rx Instructions: instill 1 drop into both eyes brimonidine-timolol [Combigan] 0.2-0.5 % drops 1 drp ophthalmic (eye) BID doxycycline hyclate 100 mg tablet 100 mg PO MOWEFR Myrbetriq 25 mg tablet extended release 24 hr 1 tab PO DAILY omeprazole 40 mg capsule,delayed release(DR/EC) 40 mg PO DAILY@0630 finasteride [Proscar] 5 mg tablet 5 mg PO DAILY 90 Days Qty: 90 3RF nitrofurantoin monohyd/m-cryst [Macrobid] 100 mg capsule 100 mg PO DAILY 30 Days Qty: 30 0RF Rx Instructions: start macrobid one capsule daily. must administer with a meal/food Discontinued Eliquis 5 mg tablet 5 mg PO BID 90 Days Qty: 180 0RF ertapenem [Invanz] 1 gram recon soln 1 g IV DAILY Qty: 12 0RF prednisone 10 mg tablet See Taper PO DIRECTED Qty: 20 0RF Taper: Prednisone 40 mg daily for 3 Days and 0 Hour 30 mg daily for 3 Days and 0 Hour 20 mg daily for 3 Days and 0 Hour 10 mg daily for 3 Days and 0 Hour Discharge Orders: Discharge Order (Routine); Ordered 04/18/22 Ordered By: Garrett Tobin Diet: Advance to usual diet Activity on Discharge: As tolerated Stand Alone Forms: Patient Portal Discharge page Care Plan Goals: Complete course of Ceftin 500 mg twice a day and prednisone taper as ordered Health Concerns: Do not take Eliquis anymore. It has been canceled at your pharmacy Plan of Treatment: Follow-up with Dr. Duenas in the office 2 weeks Assessment: See discharge summary
--- NOTE | 2022-04-18 12:18 | MHC.CM.PN ---
Patient has been medically cleared for dc to home today, self care. TECHNICAL SUPPORT MANAGER services should resume as before. Last IMM addressed on 04/16/2022.
== END 2022-04-18 15:31 | disposition home or self-care (01) | DRG 190 ==
LOC: HO.ED 15:00 → HO.EDOVER 15:10 → HO.ICU 17:16 → HO.IMC 04-15 13:43
PROVIDERS: Admitting Provider Internal Medicine Pulmonary Disease; Emergency Provider Emergency Medicine; PCP Internal Medicine; Visit Provider Hospitalist
DX: J47.1 Bronchiectasis with (acute) exacerbation (principal); J96.21 Acute and chronic respiratory failure with hypoxia; R04.2 Hemoptysis; I50.22 Chronic systolic (congestive) heart failure; I48.0 Paroxysmal atrial fibrillation; I11.0 Hypertensive heart disease with heart failure; Z20.822 Contact with and (suspected) exposure to COVID-19; Z99.81 Dependence on supplemental oxygen; Z87.891 Personal history of nicotine dependence; Z88.0 Allergy status to penicillin; Z88.8 Allergy status to other drugs, medicaments and biological substances; Z79.899 Other long term (current) drug therapy
CPT/HCPCS: 36415; 71045; 71275; 80048; 80053; 82040; 82803; 83735; 84100; 84484; 85025; 85610; 86850; 86900; 86901; 86920; 87635; 93005; 94640; 94799; 99285; J0696; J2405; J2930; Q9967

== ENCOUNTER → 2022-04-21 10:08 | Outpatient (BNVA) | payer MEDICARE, MEDICAID, SELFPAY | PROVIDERS: PCP Internal Medicine; Visit Provider Surgery | DX: J44.1 Chronic obstructive pulmonary disease with (acute) exacerbation (principal); J96.21 Acute and chronic respiratory failure with hypoxia; R04.2 Hemoptysis; Z99.81 Dependence on supplemental oxygen; Z99.3 Dependence on wheelchair | CPT/HCPCS: 99212 ==

== ENCOUNTER → 2022-04-28 09:31 | Outpatient (BNVA) | payer MEDICARE, MEDICAID, SELFPAY | PROVIDERS: PCP Internal Medicine; Visit Provider Urology | DX: R33.9 Retention of urine, unspecified (principal); R31.9 Hematuria, unspecified; N39.0 Urinary tract infection, site not specified; A49.9 Bacterial infection, unspecified; Z16.12 Extended spectrum beta lactamase (ESBL) resistance | CPT/HCPCS: 51798; 99212 ==

== ENCOUNTER 2022-05-04 09:52 | Outpatient (REF) | payer MEDICARE, MEDICAID, SELFPAY ==
[2022-05-04 10:06] LABS: Appearance Urine Clear; Color Urine Yellow; Glucose Urine UA Negative (Negative); Leukocyte Esterase Urine Trace (Negative); Nitrite Urine Negative (Negative); PH 7.5 (5.0-9.0); Specific Gravity - Urine 1.015 (1.005-1.025); UMIC TRIGGER UA YES; Urine Blood Negative (Negative); Urine Ketones Negative (Negative); Urine Protein Negative (Neg-Trace)
[2022-05-04 10:12] LABS: Bacteria Urine None Seen (None Seen); Hyaline Casts Urine 0-2 /LPF (0-2); RBC Urine 0-2 /HPF (0-2); Squamous Epithelial Cell Urine 0-2 /HPF (0-2); WBC Urine 0-5 /HPF (0-5)
== END 2022-05-04 09:53 | disposition home or self-care (01) ==
LOC: HO.HVNA 09:52
PROVIDERS: Visit Provider Internal Medicine
DX: Z13.89 Encounter for screening for other disorder (principal)
CPT/HCPCS: 81001; 81003; 87086

== ENCOUNTER → 2022-05-18 14:38 | Outpatient (BNVA) | payer MEDICARE, MEDICAID, SELFPAY | PROVIDERS: PCP Internal Medicine; Visit Provider Internal Medicine Pulmonary Disease | DX: J47.9 Bronchiectasis, uncomplicated (principal); J44.9 Chronic obstructive pulmonary disease, unspecified; Z99.81 Dependence on supplemental oxygen | CPT/HCPCS: 99212 ==

== ENCOUNTER 2022-05-25 12:28 | Inpatient (IN) | payer MEDICARE, MEDICAID, SELFPAY ==
[2022-05-25] VITALS (8 sets, daily range): BP systolic 116–144; BP diastolic 64–83; PULSE 84–96; RESP 16–20; TEMP 36.8–37.1; O2SAT 89–100; BMI 23.3; BMI 19.4
--- NOTE | ~2022-05-25 | XR_ITS ---
EXAMINATION: XR CHEST CLINICAL INFORMATION: Shortness of breath COMPARISON: 04/15/2022 TECHNIQUE: 2 views of the chest were obtained. FINDINGS: The lungs are well expanded. Diffuse prominent markings throughout the lungs. Multifocal airspace opacities are seen, appearing somewhat worsened at the left base when compared to prior. No pleural effusion. No pneumothorax. The cardiomediastinal silhouette is unchanged. XR/XR chest 2V IMPRESSION: Multifocal airspace opacities, appearing somewhat worsened at the left base when compared to prior. This is suggestive of a chronic process with superimposed infectious or inflammatory disease at the left base..
--- NOTE | ~2022-05-25 | XR_ITS ---
EXAMINATION: XR CHEST CLINICAL INFORMATION: Tachypnea COMPARISON: Multiple priors, most recently 04/15/2019 TECHNIQUE: Frontal view of the chest was obtained. FINDINGS: Diffuse linear reticular patchy opacities redemonstrated throughout both lungs, with diffuse varicoid and cystic bronchiectatic changes, the latter being most pronounced in the right upper lobe. The degree of airspace disease without appreciable change from prior. Heart size and pulmonary vascularity within normal limits no pleural effusion or pneumothorax. No acute osseous abnormalities. XR/XR chest 1V IMPRESSION: * No significant interval change. * Stable bilateral linear and patchy opacities, varicoid and cystic bronchiectatic changes.
--- NOTE | 2022-05-25 12:41 | ECG_ITS ---
Test Reason : SOB Blood Pressure : / mmHG Vent. Rate : 089 BPM Atrial Rate : 089 BPM P-R Int : 128 ms QRS Dur : 130 ms QT Int : 380 ms P-R-T Axes : 065 -32 025 degrees QTc Int : 462 ms Normal sinus rhythm Left axis deviation Right bundle branch block Abnormal ECG When compared with ECG of 14-APR-2022 14:20, ST no longer depressed in Inferior leads Non-specific change in ST segment in Anterior leads T wave inversion no longer evident in Inferior leads Referred By: Cecilia Corrigan Electronically Signed By:Eduard Manning
[2022-05-25 13:55] LABS: MANUAL DIFF FLAG NO
[2022-05-25 13:59] LABS: Basophils Percent Auto 0.3 % (0-2); Eosinophils Absolute Auto 0.2 X10*3/uL (0.0-0.4); Eosinophils Percent Auto 1.6 % (0-4); Hematocrit 35.7 % (42.0-52.0); Imm Gran Abs Auto 0.05 X10*3/uL (0.00-0.03); Imm Gran Pct Auto 0.4 % (0.0-0.4); Lymphocytes Absolute Auto 0.5 X10*3/uL (1.2-4.9); Lymphocytes Percent Auto 3.8 % (20-40); Mean Corpuscular HGB Conc 30.8 g/dl (31.0-36.0); Mean Corpuscular Hemoglobin 25.3 pg (27.0-33.0); Mean Corpuscular Volume 82.1 fL (80.0-98.0); Mean Platelet Volume 8.6 fL (9.4-12.4); Monocytes Absolute Auto 0.8 X10*3/uL (0.1-1.2); Neutrophils Absolute Auto 10.2 x10*3/uL (2.0-8.3); Neutrophils Percent Auto 86.9 % (45-73); Platelet Count 213 X10*3/uL (160-400); Red Blood Count 4.35 X10*6/uL (4.60-5.80); Red Cell Distribution Width 14.7 % (11.0-16.0); White Blood Count 11.7 X10*3/uL (4.8-10.8)
[2022-05-25 14:00] LABS: VBG Base Excess 4.2 mmol/L; VBG HCO3 29 mmol/L (22-26); VBG pCO2 44 mmHg; VBG pH 7.42 (7.32-7.43); VBG pO2 49 mmHg
[2022-05-25 14:08] LABS: Venous Blood Gas Refer to POC result
[2022-05-25 14:14] LABS: IDNOW Serial# 6674DD1D
[2022-05-25 14:15] LABS: COVID-19 Test Negative (Negative)
[2022-05-25 14:16] LABS: Alanine Aminotransferase 16 U/L (0-40); Albumin Level 3.2 g/dL (3.5-5.0); Alkaline Phosphatase 61 U/L (39-117); Anion Gap 10 (12-20); Aspartate Amino Transferase 14 U/L (5-37); Bilirubin Total 0.4 mg/dL (0.0-1.0); Blood Urea Nitrogen 11 mg/dL (9-16); Calcium 8.2 mg/dL (8.4-10.2); Carbon Dioxide 32 mmol/L (22-29); Chloride 99 mmol/L (96-108); Estimated Glomerular Filt Rate > 60; Glucose Random 127 mg/dL (60-115); Magnesium 1.9 mg/dL (1.6-2.6); Sodium 137 mmol/L (135-145); Total Protein 6.3 g/dL (6.5-8.0)
[2022-05-25 14:18] LABS: Troponin-I High Sensitivity 4.6 ng/L (<3.5-35.0)
--- NOTE | 2022-05-25 14:53 | ED_ITS ---
HPI - General Adult General Chief complaint: Upper Respiratory Symptoms Stated complaint: SOB,PROD COUGH,X'S DAYS DUONEB GIVEN PER EMS Time Seen by Provider: 05/25/22 14:53 Source: patient and manager environmental health and safety Mode of arrival: ambulatory Limitations: language barrier History of Present Illness HPI narrative: Patient is a 81 year old assigned male at with a history of COPD requiring 2lpm of home oxygen and bronchiectasis, presenting to the emergency department today with a persistent coughing of phlegm and a bloody nose. Patient states that over the last few days he has been progressively more week and having even more phlegm production. Patient states that he follows with pulmonology here. Patient denies any dizziness, lightheadedness, abdominal pain, nausea, vomiting, fever, chills, blurry vision, double vision, loss of vision, chest pain, back pain, night sweats, pain with urination, increased urinary frequency, increased urinary urgency, blood in his urine or stool, syncope or a near syncopal episod e, recent trauma or falls, bowel incontinence, bladder incontinence, bowel retention, bladder retention, or any other complaints at this time. Patient states that he feels unsafe at home given how weak he feels and him living alone. Onset (ago): day(s) Severity: mild Severity scale (1-10): 3 Relieving factors: none Exacerbating factors: none Associated symptoms: denies other symptoms Treatments prior to arrival: none Related Data Home Medications Medication Instructions Recorded Confirmed brimonidine 0.2 %-timolol 0.5 % 1 drp ophthalmic (eye) BID 03/08/21 05/25/22 eye drops (Combigan) travoprost 0.004 % eye drops 1 drp ophthalmic (eye) BEDTIME 03/08/21 05/25/22 omeprazole 40 mg capsule,delayed 40 mg PO DAILY@0630 03/25/22 05/25/22 release Previous Rx's Medication Instructions Recorded sacubitril 24 mg-valsartan 26 mg 1 tab PO BID 90 days #180 tabs 07/19/21 tablet (Entresto) lovastatin 10 mg tablet 10 mg PO DAILY 90 days #90 tabs 11/08/21 finasteride 5 mg tablet (Proscar) 5 mg PO DAILY 90 days #90 tabs 01/06/22 walker #1 ea 03/20/22 albuterol sulfate 90 mcg/actuation 2 puff inhalation Q4H PRN 04/12/22 aerosol inhaler shortness of breath or wheezing #8.5 grams tamsulosin 0.4 mg capsule 0.4 mg PO DAILY #30 caps 04/26/22 apixaban 5 mg tablet (Eliquis) 5 mg PO BID 90 days #180 tabs 05/11/22 carvedilol 12.5 mg tablet 12.5 mg PO BID #60 tabs 05/15/22 levofloxacin 750 mg tablet 750 mg PO DAILY 10 days #10 tabs 05/18/22 prednisone 5 mg tablet 5 mg PO DAILY 30 days #30 tabs 05/18/22 docusate sodium 100 mg capsule 100 mg PO BID #60 caps 05/25/22 Allergies Allergy/AdvReac Type Severity Reaction Status Date / Time Penicillins [PENICILLINS] Allergy Intermediate PASSED Verified 05/25/22 12:55 OUT trazodone Allergy Intermediate tremors Verified 05/25/22 12:55 Review of Systems Constitutional: Constitutional: Reports no additional constitutional complaints, Denies chills, Denies fever(s) and Denies night sweats Eyes: Eyes: Reports no additional eye complaints, Denies blurry vision, Denies change in vision, Denies diplopia, Denies eye discharge, Denies loss of vision and Denies eye pain ENT: Denies dizziness and Reports epistaxis (now resolved) Cardiovascular: Cardiovascular: Reports no additional cardiovascular complaints, Denies chest pain, Denies lightheadedness, Denies Loss of Con sciousness and Reports dyspnea Respiratory: Respiratory: Reports no additional respiratory complaints, Reports cough and Reports dyspnea Gastrointestinal: Gastrointestinal: Reports no additional gastrointestinal complaints, Denies abdominal pain, Denies melena, Denies hematochezia, Denies ch yusra in bowel habits and Denies change in stool character Genitourinary: Genitourinary: Reports no additional male genitourinary complaints, Denies hematuria, Denies oliguria, Denies difficulty urinating, Denies dysuria, Denies urinary frequency, Denies urinary hesitancy, Denies urinary incontinence and Denies urinary urgency Musculoskeletal: Musculoskeletal: Reports no additional musculoskeletal complaints, Denies numbness and Denies tingling Neurologic: Denies dizziness, Denies loss of vision, Denies numbness and Denies tingling Psychiatric: Psychiatric: Reports no additional psychiatric complaints Endocrine: Endocrine: Reports no additional endocrine complaints Hematologic/Lymphatic: Hematologic/Lymphatic: Reports no additional hematologic/lymphatic complaints Allergic/Immunologic: Allergic/Immunologic: Reports no additional allerg ic/immunologic complaints [facility] Past Medical History Attestation statement: The following information was validated with the patient. Source: old records reviewed and nursing notes reviewed Medical History (Updated 05/25/22 @ 16:52 by BOY Snowden) Acute and chronic respiratory failure BPH loc w urin obs/LUTS Bronchiectasis Bronchitis Congestive heart failure COPD (chronic obstructive pulmonary disease) Dysuria ESBL (extended spectrum beta-lactamase) producing bacteria infection Essential hypertension GERD (gastroesophageal reflux disease) Glaucoma Hearing loss Hernia History of MAC infection Hypoxia Kidney stone on left side JESSA (mycobacterium avium-intracellulare) NICM (nonischemic cardiomyopathy) Paroxysmal atrial fibrillation Pure hypercholesterolemia Supplemental oxygen dependent Urinary retention Surgical History History of bronchoscopy History of colonoscopy History of cystoscopy History of lumbar surgery History of rectal polypectomy Family History Family History Father No problems noted. Mother Medical history unknown Sister Diabetes Daughter In good health Son In good health Brother No problems noted. Social History Social History Household Members: None Housing: Apartment Do you presently have visiting nurse or other home services: Yes (visiting nurse twice a week; ORGAN INSTALLER 2 hrs daily) Alcohol intake: former Patient Tobacco Use Status: Former Tobacco user Quit Date: 6 years ago Tobacco use type: Cigarette Smoked in Last 30 Days: No e-Cigarette/Vaping Use: Never Used Second Hand Smoke Exposure: No Use of substances other than those prescribed or required for medical reasons: No Advance Directives: Yes Advance Directives on File: Yes Advance Directives Date on File: 07/12/21 Nutrition Risks: No Nutritional Risk service: No Current occupational status: disabled Cognitive needs: No Hearing needs: Yes Vision needs: Yes Physical Exam ED Vital Signs: Vital Signs - 24 hr 05/25/22 12:55 05/25/22 15:04 05/25/22 16:17 Temperature 98.5 F 98.7 F Pulse Rate 85 84 Respiratory Rate 18 19 Blood Pressure 132/67 116/64 Pulse Oximetry 96 97 97 Oxygen Delivery Method Nasal Cannula Nasal Cannula Nasal Cannula Oxygen Flow Rate 2 05/25/22 16:17 Temperature 98.5 F Pulse Rate 85 Respiratory Rate 20 Blood Pressure 123/68 Pulse Oximetry 97 Oxygen Delivery Method Nasal Cannula Oxygen Flow Rate 2 BMI result Body Mass Index 23.3 Const General: cooperative, no acute distress, alert and awake Nutritional Appearance: well nourished Orientation/consciousness: patient oriented x3 Limitations: no limitations HENMT Head: Yes normal to inspection and Yes atraumatic Ears: hearing grossly normal bilaterally and external ears normal General nose exam: Normal external nose present, no nasal discharge noted and no epistaxis Face and sinus: Yes normal facial exam, No abrasion and No laceration Mouth: Normal oral and palatal mucosa present, no drooling and no muffled voice Eyes General: appearance normal, both eyes and all related structures Periorbital: periorbital findings normal Eyelids: Yes eyelids normal Conjunctivae: conjunctivae normal Pupils: Equal, round and reactive pupils present EOM: EOMs intact bilaterally Neck Neck: Yes normal visual inspection, Yes full ROM and Yes no lymphadenopathy Chest Chest palpation & inspection: normal inspection of the chest Resp Other: on 2 liters of oxygen via nasal cannula at baseline Effort & Inspection: able to speak in complete sentences GI Inspection: Yes normal to inspection Palpation (GI): Soft to palpation, not firm, nontender and no guarding Neuro General: patient oriented x3 and moves all extremities Cranial nerves: Yes Equal, round and reactive pupils present Cognition (Neuro): normal cognition Motor exam (neuro): 5/5 motor strength present throughout Sensory Exam: Normal double simultaneous stimulation for sensation Coordination: [id number] test normal Extrem General: Yes normal to inspection, Yes full ROM and Yes capillary refill normal Psych Appearance: grossly normal Mental Status: mental status grossly normal Affect: normal affect Attitude: cooperative Thought process: Normal thought process present Thought content: Normal thought content present Insight: Good insight present (Psych) Medications Administered Discontinued Medications Generic Name Dose Route Start Last Admin Trade Name Freq PRN Reason Stop Dose Admin Meropenem 1 gm/ Sodium 100 mls @ 200 mls/hr 05/25/22 15:26 05/25/22 16:32 Chloride IV 05/25/22 15:55 200 mls/hr ONCE ONE Administration Medical Decision Making Medical Decision Making MDM Narrative: Patient is a 81 year old assigned male at with a history of COPD on 2lpm of oxygen chronically and bronchiectasis presenting to the emergency department today with a worsening cough and increased shortness of breath. Patient's physical exam showed an individual on 2lpm of oxygen via nasal cannula but was otherwise unremarkable. Patient's blood work showed a slightly elevated WBC count of 11.7. Patient's EKG was unremarkable. Patient's chest x-ray showed an infiltrate in the left base. Patient's clinical presentation is not consistent with sepsis (@1520). I spoke to the sustainability executive director farm operations manager who recommended Tobamycin nebs and meropenem. I spoke to the hospitalist team who agreed to admission. I explained my physical exam findings as well as all test results to the patient. I answered all questions asked by the patient. Patient verbalized agreement and understanding with this treatment plan and admission. Differential Diagnosis Differential Diagnoses: The differential diagnosis associated with the presentation includes pneumonia Consult Healthcare Provider Management of the patient was discussed with: Hospitalist (agreed to admission) and Forester Aide (pulmonology recommended tobamycin nebs and meropenem) Lab Data MDM Lab Attestation statement: I reviewed the patient's lab results. 05/25/22 13:51 05/25/22 13:51 Labs: Lab Results 05/25/22 05/25/22 05/25/22 Range/Units 13:51 13:51 13:51 WBC 11.7 H (4.8-10.8) X10*3/uL RBC 4.35 L (4.60-5.80) X10*6/uL Hgb 11.0 L (14.0-18.0) g/dl Hct 35.7 L (42.0-52.0) % MCV 82.1 (80.0-98.0) fL MCH 25.3 L (27.0-33.0) pg MCHC 30.8 L (31.0-36.0) g/dl RDW 14.7 (11.0-16.0) % Plt Count 213 (160-400) X10*3/uL MPV 8.6 L (9.4-12.4) fL Immature Gran % (Auto) 0.4 (0.0-0.4) % Neut % (Auto) 86.9 H (45-73) % Lymph % (Auto) 3.8 L (20-40) % [place] % (Auto) 7.0 (2-11) % Eos % (Auto) 1.6 (0-4) % Baso % (Auto) 0.3 (0-2) % Lymph # (Auto) 0.5 L (1.2-4.9) X10*3/uL [place] # (Auto) 0.8 (0.1-1.2) X10*3/uL Eos # (Auto) 0.2 (0.0-0.4) X10*3/uL Baso # (Auto) 0.0 (0.0-0.2) X10*3/uL Abs Immat Gran (auto) 0.05 H (0.00-0.03) X10*3/uL Absolute Neuts (auto) 10.2 H (2.0-8.3) x10*3/uL Absolute Nucleated RBC 0.000 (0.0-0.012) X10*3/uL Nucleated RBC % (auto) 0.0 (0.0-0.2) /100WBC VBG pH (7.32-7.43) VBG pCO2 mmHg VBG pO2 mmHg VBG HCO3 (22-26) mmol/L VBG O2 Saturation % VBG Base Excess mmol/L Sodium 137 (135-145) mmol/L Potassium 4.0 (3.3-5.1) mmol/L Chloride 99 (96-108) mmol/L Carbon Dioxide 32 H (22-29) mmol/L Anion Gap 10 L (12-20) BUN 11 (9-16) mg/dL Creatinine 0.70 (0.5-1.4) mg/dL Estim Creat Clear Calc 80.0 Estimated GFR > 60 Random Glucose 127 H (60-115) mg/dL Calcium 8.2 L (8.4-10.2) mg/dL Magnesium 1.9 (1.6-2.6) mg/dL Total Bilirubin 0.4 (0.0-1.0) mg/dL AST 14 (5-37) U/L ALT 16 (0-40) U/L Alkaline Phosphatase 61 (39-117) U/L Troponin I High Sens 4.6 (<3.5-35.0) ng/L Total Protein 6.3 L (6.5-8.0) g/dL Albumin 3.2 L (3.5-5.0) g/dL COVID-19 ([facility]) (Negative) COVID-19 Clin Com 05/25/22 05/25/22 Range/Units 13:51 13:54 WBC (4.8-10.8) X10*3/uL RBC (4.60-5.80) X10*6/uL Hgb (14.0-18.0) g/dl Hct (42.0-52.0) % MCV (80.0-98.0) fL MCH (27.0-33.0) pg MCHC (31.0-36.0) g/dl RDW (11.0-16.0) % Plt Count (160-400) X10*3/uL MPV (9.4-12.4) fL Immature Gran % (Auto) (0.0-0.4) % Neut % (Auto) (45-73) % Lymph % (Auto) (20-40) % [place] % (Auto) (2-11) % Eos % (Auto) (0-4) % Baso % (Auto) (0-2) % Lymph # (Auto) (1.2-4.9) X10*3/uL [place] # (Auto) (0.1-1.2) X10*3/uL Eos # (Auto) (0.0-0.4) X10*3/uL Baso # (Auto) (0.0-0.2) X10*3/uL Abs Immat Gran (auto) (0.00-0.03) X10*3/uL Absolute Neuts (auto) (2.0-8.3) x10*3/uL Absolute Nucleated RBC (0.0-0.012) X10*3/uL Nucleated RBC % (auto) (0.0-0.2) /100WBC VBG pH 7.42 (7.32-7.43) VBG pCO2 44 mmHg VBG pO2 49 mmHg VBG HCO3 29 H (22-26) mmol/L VBG O2 Saturation 80.0 % VBG Base Excess 4.2 mmol/L Sodium (135-145) mmol/L Potassium (3.3-5.1) mmol/L Chloride (96-108) mmol/L Carbon Dioxide (22-29) mmol/L Anion Gap (12-20) BUN (9-16) mg/dL Creatinine (0.5-1.4) mg/dL Estim Creat Clear Calc Estimated GFR Random Glucose (60-115) mg/dL Calcium (8.4-10.2) mg/dL Magnesium (1.6-2.6) mg/dL Total Bilirubin (0.0-1.0) mg/dL AST (5-37) U/L ALT (0-40) U/L Alkaline Phosphatase (39-117) U/L Troponin I High Sens (<3.5-35.0) ng/L Total Protein (6.5-8.0) g/dL Albumin (3.5-5.0) g/dL COVID-19 ([facility]) Negative (Negative) COVID-19 Clin Com See Note Independent Interpretation I performed an independent interpretation of an: EKG Interpretation: My interpretation is in agreement with the radiologist's impression of this imaging study. EXAMINATION: XR CHEST CLINICAL INFORMATION: Shortness of breath COMPARISON: 04/15/2022 TECHNIQUE: 2 views of the chest were obtained. FINDINGS: The lungs are well expanded. Diffuse prominent markings throughout the lungs. Multifocal airspace opacities are seen, appearing somewhat worsened at the left base when compared to prior. No pleural effusion. No pneumothorax. The cardiomediastinal silhouette is unchanged. XR/XR chest 2V IMPRESSION: Multifocal airspace opacities, appearing somewhat worsened at the left base when compared to prior. This is suggestive of a chronic process with superimposed infectious or inflammatory disease at the left base.. Dictated By: Rafa Hahn MD Signed By: Electronically signed by Rafa Hahn MD 05/25/22 1517 Chronic Conditions Patient?s care impacted by: Other (COPD) Critical Care Time Critical Care Time Critical Care Time: Yes Total Critical Care Time: 45 Attestation: I spent 45 minutes of Critical Care Time with this patient. This does not include time spent on separately reported billable procedures. Discharge Plan Discharge Clinical Impression: Pneumonia Patient Disposition: Admitted As Inpatient Prescriptions: No Action Entresto 24-26 mg tablet 1 tab PO BID 90 Days Qty: 180 3RF lovastatin 10 mg tablet 10 mg PO DAILY 90 Days Qty: 90 3RF (DME) sarbjit Misc See Rx Instructions .Route Qty: 1 0RF Label Comments: Pt states doesnot use Rx Instructions: with seat and wheels albuterol sulfate 90 mcg/actuation HFA aerosol inhaler 2 puff inhalation Q4H PRN (Reason: shortness of breath or wheezing) Qty: 8.5 4RF tamsulosin 0.4 mg capsule 0.4 mg PO DAILY Qty: 30 0RF Eliquis 5 mg tablet 5 mg PO BID 90 Days Qty: 180 1RF carvedilol 12.5 mg tablet 12.5 mg PO BID Qty: 60 0RF Protocol: Hold for SBP/HR < HOLD for SBP < : 90 HOLD for HR < : 60 docusate sodium 100 mg capsule 100 mg PO BID Qty: 60 0RF travoprost 0.004 % drops 1 drp ophthalmic (eye) BEDTIME Rx Instructions: instill 1 drop into both eyes brimonidine-timolol [Combigan] 0.2-0.5 % drops 1 drp ophthalmic (eye) BID omeprazole 40 mg capsule,delayed release(DR/EC) 40 mg PO DAILY@0630 finasteride [Proscar] 5 mg tablet 5 mg PO DAILY 90 Days Qty: 90 3RF levofloxacin 750 mg tablet 750 mg PO DAILY 10 Days Qty: 10 0RF prednisone 5 mg tablet 5 mg PO DAILY 30 Days Qty: 30 6RF
--- NOTE | 2022-05-25 15:51 | P.HPHOSP_ITS ---
History of Present Illness Date of Service: 05/25/22 Chief Complaint: shortness of breah 81-year-old male with history of bronchiectasis, COPD, not on home oxygen, HFpEF, hypertension, GERD, glaucoma, history of JESSA, and ICM, paroxysmal atrial fibrillation on eliquis, and hypercholesterolemia presented to the ED this morning with shortness of breath and cough that has been ongoing for weeks, cough with sputum production at time blood tinged. He reports no fever or chills but is feels bery weak, especially with exertion. He has chronic respiratory failure and is on home O2. CXR show multifocal pneumonia, WBC is 11. He is treated with Meropenem and trobramycin by inhalation.? Review of Systems Review of Systems: Gen: no fever Resp: + sob, + cough CV: no chest, + WRIGHT, no leg edema GI: No n/v, no abd pain Neuro: No confusion Yes all other systems are reviewed and are negative [facility] Medical History (Updated 05/25/22 @ 16:52 by BOY Snowden) Acute and chronic respiratory failure BPH loc w urin obs/LUTS Bronchiectasis Bronchitis Congestive heart failure COPD (chronic obstructive pulmonary disease) Dysuria ESBL (extended spectrum beta-lactamase) producing bacteria infection Essential hypertension GERD (gastroesophageal reflux disease) Glaucoma Hearing loss Hernia History of MAC infection Hypoxia Kidney stone on left side JESSA (mycobacterium avium-intracellulare) NICM (nonischemic cardiomyopathy) Paroxysmal atrial fibrillation Pure hypercholesterolemia Supplemental oxygen dependent Urinary retention Family History Father No problems noted. Mother Medical history unknown Sister Diabetes Daughter In good health Son In good health Brother No problems noted. Surgical History History of bronchoscopy History of colonoscopy History of cystoscopy History of lumbar surgery History of rectal polypectomy Social History Household Members: None Housing: Apartment Do you presently have visiting nurse or other home services: Yes (visiting nurse twice a week; [employer] WORK[employer] 2 hrs daily) Alcohol intake: former Patient Tobacco Use Status: Former Tobacco user Quit Date: 6 years ago Tobacco use type: Cigarette Smoked in Last 30 Days: No e-Cigarette/Vaping Use: Never Used Second Hand Smoke Exposure: No Use of substances other than those prescribed or required for medical reasons: No Advance Directives: Yes Advance Directives on File: Yes Advance Directives Date on File: 07/12/21 Nutrition Risks: No Nutritional Risk service: No Current occupational status: disabled Cognitive needs: No Hearing needs: Yes Vision needs: Yes Meds Allergies Allergy/AdvReac Type Severity Reaction Status Date / Time Penicillins [PENICILLINS] Allergy Intermediate PASSED Verified 05/25/22 12:55 OUT trazodone Allergy Intermediate tremors Verified 05/25/22 12:55 Active Medications: Current Medications Meropenem 1 gm/ Sodium (Chloride) 100 mls @ 200 mls/hr IV ONCE ONE Stop: 05/25/22 15:55 Pharmacy Consult (Consult Rx Perform Med Rec) 1 each MISCELLANE ONCE PRN PRN Reason: Consult order Tobramycin Sulfate (Tobramycin Sulfate 80 Mg/2 Ml Vial) 300 mg INHALE 6XD PRN PRN Reason: Shortness of Breath Home Medications Medication Instructions Recorded Confirmed Last Taken Type brimonidine 0.2 %-timolol 0.5 % 1 drp ophthalmic (eye) BID 03/08/21 05/25/22 03/24/22 History eye drops (Combigan) travoprost 0.004 % eye drops 1 drp ophthalmic (eye) BEDTIME 03/08/21 05/25/22 03/24/22 History omeprazole 40 mg capsule,delayed 40 mg PO DAILY@0630 03/25/22 05/25/22 04/14/22 History release Physical Exam Vital Signs and Narrative: Vital Signs: Last Vital Signs Temp 98.7 F 05/25/22 15:04 Pulse 84 05/25/22 15:04 Resp 19 05/25/22 15:04 BP 116/64 05/25/22 15:04 Pulse Ox 97 05/25/22 15:04 O2 Del Method 05/25/22 15:04 O2 Flow Rate 2 05/25/22 15:04 Oxygen Flow Rate 2 05/25/22 12:55 BMI result Body Mass Index 23.3 Const: Other: Constitutional - Awake and Alert, No apparent distress Eyes - PERRLA, EOMI Cardiovascular - S1S2, RRR, No edema Respiratory - Normal lung expansion, Normal respiratory effort, No respiratory distress, scattered faint wheezes bilaterally Gastrointestinal - NT / ND; +BS; No rebound or guarding Extremities - no calf tenderness bilaterally, no swelling Musculoskeletal - Normal inspection, normal ROM Skin - Warm/Dry Neurological - Alert & oriented x3, CN II-XII in tact, 5/5 strength BUE and BLE Psychological - Appropriate affect Results Labs 05/25/22 13:51 05/25/22 13:51 Labs: Laboratory Results - last 24 hr 05/25/22 05/25/22 05/25/22 13:51 13:51 13:51 MCV 82.1 MCH 25.3 L MCHC 30.8 L RDW 14.7 Plt Count 213 MPV 8.6 L Immature Gran % (Auto) 0.4 Neut % (Auto) 86.9 H Lymph % (Auto) 3.8 L [place] % (Auto) 7.0 Eos % (Auto) 1.6 Baso % (Auto) 0.3 Lymph # (Auto) 0.5 L [place] # (Auto) 0.8 Eos # (Auto) 0.2 Baso # (Auto) 0.0 Abs Immat Gran (auto) 0.05 H Absolute Neuts (auto) 10.2 H Absolute Nucleated RBC 0.000 Nucleated RBC % (auto) 0.0 VBG pH VBG pCO2 VBG pO2 VBG HCO3 VBG O2 Saturation VBG Base Excess Anion Gap 10 L Estim Creat Clear Calc 80.0 Estimated GFR > 60 Random Glucose 127 H Calcium 8.2 L Magnesium 1.9 Total Bilirubin 0.4 AST 14 ALT 16 Alkaline Phosphatase 61 Troponin I High Sens 4.6 Total Protein 6.3 L Albumin 3.2 L COVID-19 (BONNIE) COVID-19 Clin Com 05/25/22 05/25/22 13:51 13:54 MCV MCH MCHC RDW Plt Count MPV Immature Gran % (Auto) Neut % (Auto) Lymph % (Auto) [place] % (Auto) Eos % (Auto) Baso % (Auto) Lymph # (Auto) [place] # (Auto) Eos # (Auto) Baso # (Auto) Abs Immat Gran (auto) Absolute Neuts (auto) Absolute Nucleated RBC Nucleated RBC % (auto) VBG pH 7.42 VBG pCO2 44 VBG pO2 49 VBG HCO3 29 H VBG O2 Saturation 80.0 VBG Base Excess 4.2 Anion Gap Estim Creat Clear Calc Estimated GFR Random Glucose Calcium Magnesium Total Bilirubin AST ALT Alkaline Phosphatase Troponin I High Sens Total Protein Albumin COVID-19 (BONNIE) Negative COVID-19 Clin Com See Note Imaging Radiologist's Impressions: Impressions Chest X-Ray 05/25/22 14:23 IMPRESSION: Multifocal airspace opacities, appearing somewhat worsened at the left base when compared to prior. This is suggestive of a chronic process with superimposed infectious or inflammatory disease at the left base.. Assessment and Plan (1) Multifocal pneumonia: Status: Acute Plan 81-year-old male with history of bronchiectasis, COPD, not on home oxygen, HFpEF, hypertension, GERD, glaucoma, history of JESSA,? NICM, paroxysmal atrial fibrillation no longer on anticoagulation due to hematuria, and hypercholesterolemia with recent admissions for COPD exacberation with acute hypoxic respiratory failure # Acute respiratory failure- secondary to pneumonia with underlying chronic b ronchiectasi d/t JESSA -Continue supplemental O2 to maintain oximetry greater than 92% #multifocal pneumonia--started on Meropenem, continue ID consult # COPD, no exacerbation, bronchodilators routinely # BPH with LUTS and chronic urinary retention -continue chronic Schwarz, -continue finasteride, tamsulosin and Myrbetriq #HFpEF- no acute exacerbation -Continue entresto #Non ischemic cardiomyopathy (NICM) -Continue carvedilol #glaucoma -continue home drops #Parox Afib- rate controlled -eliquis -continue carvedilol # hypertension -continue home meds DVT prophylaxis-eliquis Full code Admission to span at least 2 midnights for management for managment of multifocal pneumonia, acute respiratory failure Time Spent With Patient Time: Total time managing care of this patient today ____ minutes. Quality Stroke Does the patient have a stroke diagnosis?: No VTE Prior VTE?: No VTE Risk Level:: Medical - moderate - high VTE Device Contraindication: Treatment Not Indicated VTE Drug Contraindication: N/A - Med Ordered
--- NOTE | 2022-05-25 16:25 | PHA.MEDREC ---
Pharmacy Consult ? Medication Reconciliation Pharmacy has completed the medication reconciliation. Patient told me he did not know his medications and to [facility]. Blood Bank Coordinator used.
--- NOTE | 2022-05-25 16:38 | PC.NURSE ---
pt medicated per provider order, surveillance manager at bedside.
--- NOTE | 2022-05-25 17:10 | PC.NURSE ---
Pt oxygen saturation decreased to 89% on room air. Pt put on 2 lpm via nasal cannula. Oxygen saturations improved to 94% with the 2 lpm via nasal cannula.
--- NOTE | 2022-05-25 18:40 | PC.NURSE ---
RN-RN report called into S3. transport notified.
[2022-05-25] MEDS: carvediloL 12.5 MG TABLET PO (20:00)
[2022-05-25] MEDS: Sacubitril/Valsartan 24/26 1 TAB TABLET PO (20:01)
[2022-05-25] MEDS: timoloL maleate 0.5 % Oph Sol 5 ML DRBTL 1 DROP EYE-BOTH (20:01)
[2022-05-25] MEDS: Brimonidine Tartrate 0.2% Oph 5 ML BOTTLE 1 DROP EYE-BOTH (20:01)
[2022-05-25] MEDS: Apixaban 5 MG TABLET PO (20:01)
[2022-05-25] MEDS: 0.9 % Sodium Chloride Flush 3 ML SYRINGE IVFLUSH (20:01)
[2022-05-25] MEDS: Tobramycin Sulfate 80 MG/2 ML VIAL 300 MG INHALE (20:18)
[2022-05-26] VITALS (11 sets, daily range): BP systolic 106–131; BP diastolic 57–93; PULSE 69–90; RESP 14–32; TEMP 36.4–36.7; O2SAT 91–100; BMI 23.3
[2022-05-26] MEDS: Albuterol Sulfate 90 MCG 8 GM INHALER 2 PUFF INHALE (03:19)
[2022-05-26 06:08] LABS: ABG Base Excess 2.8 mmol/L; ABG HCO3 28 mmol/L (22-26); ABG pCO2 45 mmHg (32-45); ABG pH 7.39 (7.35-7.45); ABG pO2 79 mmHg (83-108)
--- NOTE | 2022-05-26 06:24 | PC.NURSE ---
Pt woke up around 3a c/o SOB , RT called for treatment, pt verbalized relief. Pt woke up again at 0525 c/o SOB, LS is rhonchorus and limited air exchange, RR 32, O2 sats 95 % at 2L/min O2 via NC, Dr Moreno was called to come see the pt, ABG and CXR ordered and done, another neb given by RT, results reviewed by MD, Dr. Moreno came to the bedside later, pt verbalized relief.
[2022-05-26 06:28] LABS: ABG Refer to POC result
[2022-05-26] MEDS: guaiFENesin 100 MG/5 ML LIQUID PO ×3 (06:35→19:57)
[2022-05-26] MEDS: Omeprazole 40 MG CAPSULE.DR PO (06:35)
[2022-05-26] MEDS: Tobramycin Sulfate 80 MG/2 ML VIAL 300 MG INHALE ×2 (07:25→20:08)
[2022-05-26] MEDS: Sacubitril/Valsartan 24/26 1 TAB TABLET PO ×2 (07:47→21:14)
[2022-05-26] MEDS: carvediloL 12.5 MG TABLET PO ×2 (07:47→19:58)
[2022-05-26] MEDS: predniSONE 5 MG TABLET PO (07:48)
[2022-05-26] MEDS: Pravastatin Sodium 10 MG TABLET PO (07:48)
[2022-05-26] MEDS: timoloL maleate 0.5 % Oph Sol 5 ML DRBTL 1 DROP EYE-BOTH ×2 (07:48→19:58)
[2022-05-26] MEDS: Brimonidine Tartrate 0.2% Oph 5 ML BOTTLE 1 DROP EYE-BOTH ×2 (07:48→19:58)
[2022-05-26] MEDS: Finasteride 5 MG TABLET PO (07:48)
[2022-05-26] MEDS: Tamsulosin HCL 0.4 MG CAPSULE PO (07:48)
[2022-05-26] MEDS: Apixaban 5 MG TABLET PO ×2 (07:48→19:58)
[2022-05-26] MEDS: 0.9 % Sodium Chloride Flush 3 ML SYRINGE IVFLUSH ×3 (07:48→19:58)
--- NOTE | 2022-05-26 09:53 | HO.PM.IMPN ---
Subjective Subjective Date of Service: 05/27/22 Interval History: f/u on pneumonia, sob coughing large amount of purulent sputum still sob Physical Exam Vital Signs: Vital Signs: Last Vital Signs Temp 98.1 F 05/26/22 07:01 Pulse 74 05/26/22 07:26 Resp 20 05/26/22 07:26 BP 106/57 L 05/26/22 07:01 Pulse Ox 92 05/26/22 07:01 O2 Del Method 05/26/22 07:01 O2 Flow Rate 2 05/26/22 07:01 Oxygen Flow Rate 2 05/25/22 17:09 BMI result Body Mass Index 19.4 Const: Other: Constitutional - Awake and Alert, No apparent distress Eyes - PERRLA, EOMI Cardiovascular - S1S2, RRR, No edema Respiratory - Normal lung expansion, Normal respiratory effort, No respiratory distress, scattered faint wheezes bilaterally Gastrointestinal - NT / ND; +BS; No rebound or guarding Extremities - no calf tenderness bilaterally, no swelling Musculoskeletal - Normal inspection, normal ROM Skin - Warm/Dry Neurological - Alert & oriented x3, CN II-XII in tact, 5/5 strength BUE and BLE Psychological - Appropriate affect Objective Data Active Medications Albuterol Sulfate (Albuterol Sulfate 90 Mcg 8 Gm Inhaler) 2 puff INHALE Q4H PRN PRN Reason: shortness of breath or wheezing Last Admin: 05/26/22 03:19 Dose: 2 puff Documented By: KENNY Apixaban (Apixaban 5 Mg Tablet) 5 mg PO BID [facility] Last Admin: 05/26/22 07:48 Dose: 5 mg Documented By: LEENA Brimonidine Tartrate (Brimonidine Tartrate 0.2% Oph 5 Ml Bottle) 1 drop EYE-BOTH BID [facility] Last Admin: 05/26/22 07:48 Dose: 1 drop Documented By: LEENA Carvedilol (Carvedilol 12.5 Mg Tablet) 12.5 mg PO BID [facility]; Protocol Last Admin: 05/26/22 07:47 Dose: 12.5 mg Documented By: LEENA Albuterol Sulfate 2.5 mg/ (Ipratropium [place] 0.5 mg) 0 mg INHALE Q4H PRN PRN Reason: Wheezing Last Admin: 05/26/22 06:11 Dose: 2.5 each Documented By: KENNY Finasteride (Finasteride 5 Mg Tablet) 5 mg PO DAILY [facility] Last Admin: 05/26/22 07:48 Dose: 5 mg Documented By: LEENA Guaifenesin (Guaifenesin 100 Mg/5 Ml Liquid) 5 ml PO Q4H PRN PRN Reason: Cough Last Admin: 05/26/22 06:35 Dose: 5 ml Documented By: TIANNA Meropenem 1 gm/ Sodium (Chloride) 100 mls @ 200 mls/hr IV Q8H [facility] Last Infusion: 05/26/22 09:39 Dose: 0 mls/hr Documented By: LEENA Latanoprost (Latanoprost 0.005 % Ophth [place] 2.5 Ml Drops) 1 drop EYE-BOTH BEDTIME [facility] Melatonin (Melatonin 3 Mg Tablet) 3 mg PO BEDTIME PRN PRN Reason: Insomnia Omeprazole (Omeprazole 40 Mg Capsule.) 40 mg PO DAILY@0630 [facility] Last Admin: 05/26/22 06:35 Dose: 40 mg Documented By: TIANNA Pharmacy Consult (Consult Rx Perform Med Rec) 1 each MISCELLANE ONCE PRN PRN Reason: Consult order Pravastatin Sodium (Pravastatin Sodium 10 Mg Tablet) 10 mg PO DAILY [facility] Last Admin: 05/26/22 07:48 Dose: 10 mg Documented By: LEENA Prednisone (Prednisone 5 Mg Tablet) 5 mg PO DAILY [facility] Last Admin: 05/26/22 07:48 Dose: 5 mg Documented By: LEENA Sacubitril/Valsartan (Sacubitril/Valsartan 1 Tab Tablet) 1 tab PO BID [facility]; Protocol Last Admin: 05/26/22 07:47 Dose: 1 tab Documented By: LEENA Sodium Chloride (0.9 % Sodium Chloride Flush 3 Ml Syringe) 3 ml IVFLUSH QSHIFT [facility] Last Admin: 05/26/22 07:48 Dose: 3 ml Documented By: LEENA Tamsulosin HCl (Tamsulosin Hcl 0.4 Mg Capsule) 0.4 mg PO DAILY [facility] Last Admin: 05/26/22 07:48 Dose: 0.4 mg Documented By: LEENA Timolol Maleate (Timolol Maleate 0.5 % Oph [place] 5 Ml Drbtl) 1 drop EYE-BOTH BID [facility] Last Admin: 05/26/22 07:48 Dose: 1 drop Documented By: LEENA Tobramycin Sulfate (Tobramycin Sulfate 80 Mg/2 Ml Vial) 300 mg INHALE BID@0700,1900 [facility] Last Admin: 05/26/22 07:25 Dose: 300 mg Documented By: WALKERRICC Labs 05/25/22 13:51 05/25/22 13:51 Labs: Laboratory Results - last 24 hr 05/25/22 05/25/22 05/25/22 13:51 13:51 13:51 MCV 82.1 MCH 25.3 L MCHC 30.8 L RDW 14.7 Plt Count 213 MPV 8.6 L Immature Gran % (Auto) 0.4 Neut % (Auto) 86.9 H Lymph % (Auto) 3.8 L [place] % (Auto) 7.0 Eos % (Auto) 1.6 Baso % (Auto) 0.3 Lymph # (Auto) 0.5 L [place] # (Auto) 0.8 Eos # (Auto) 0.2 Baso # (Auto) 0.0 Abs Immat Gran (auto) 0.05 H Absolute Neuts (auto) 10.2 H Absolute Nucleated RBC 0.000 Nucleated RBC % (auto) 0.0 O2 Saturation ABG pH at Pt Temp ABG pCO2 at Pt Temp ABG pO2 at Pt Temp ABG HCO3 ABG Base Excess (Actual) VBG pH VBG pCO2 VBG pO2 VBG HCO3 VBG O2 Saturation VBG Base Excess Anion Gap 10 L Estim Creat Clear Calc 80.0 Estimated GFR > 60 Random Glucose 127 H Calcium 8.2 L Magnesium 1.9 Total Bilirubin 0.4 AST 14 ALT 16 Alkaline Phosphatase 61 Troponin I High Sens 4.6 Total Protein 6.3 L Albumin 3.2 L COVID-19 ([facility]NIE) COVID-19 Clin Com 05/25/22 05/25/22 05/26/22 13:51 13:54 06:00 MCV MCH MCHC RDW Plt Count MPV Immature Gran % (Auto) Neut % (Auto) Lymph % (Auto) [place] % (Auto) Eos % (Auto) Baso % (Auto) Lymph # (Auto) [place] # (Auto) Eos # (Auto) Baso # (Auto) Abs Immat Gran (auto) Absolute Neuts (auto) Absolute Nucleated RBC Nucleated RBC % (auto) O2 Saturation 95.0 ABG pH at Pt Temp 7.39 ABG pCO2 at Pt Temp 45 ABG pO2 at Pt Temp 79 L ABG HCO3 28 H ABG Base Excess (Actual) 2.8 VBG pH 7.42 VBG pCO2 44 VBG pO2 49 VBG HCO3 29 H VBG O2 Saturation 80.0 VBG Base Excess 4.2 Anion Gap Estim Creat Clear Calc Estimated GFR Random Glucose Calcium Magnesium Total Bilirubin AST ALT Alkaline Phosphatase Troponin I High Sens Total Protein Albumin COVID-19 (BONNIE) Negative COVID-19 Clin Com See Note Assessment and Plan (1) Pneumonia: Status: Acute (2) Multifocal pneumonia: Status: Acute Plan 81-year-old male with history of bronchiectasis, COPD, not on home oxygen, HFpEF, hypertension, GERD, glaucoma, history of JESSA,? NICM, paroxysmal atrial fibrillation no longer on anticoagulation due to hematuria, and hypercholesterolemia with recent admissions for COPD exacberation with acute hypoxic respiratory failure # Acute respiratory failure- secondary to pneumonia with underlying chronic bronchiectasi d/t JESSA -Continue supplemental O2 to maintain oximetry greater than 92% #multifocal pneumonia--started on Meropenem, Tobra inhalation, continue, ID consult # COPD, no exacerbation, bronchodilators routinely # BPH with LUTS and chronic urinary retention -continue chronic Schwarz, -continue finasteride, tamsulosin and Myrbetriq #HFpEF- no acute exacerbation -Continue entresto, coreg #Non ischemic cardiomyopathy (NICM) -Continue carvedilol, entresto #glaucoma -continue home drops #Parox Afib- rate controlled -eliquis -continue carvedilol # hypertension -continue home meds DVT prophylaxis-eliquis Full code Admission to span at least 2 midnights for management for managment of multifocal pneumonia, acute respiratory failure Time Spent With Patient Time: Total time managing care of this patient today ____ minutes. Quality Stroke Does the patient have a stroke diagnosis?: No VTE Prior VTE?: No VTE Risk Level:: Medical - moderate - high VTE Device Contraindication: Treatment Not Indicated VTE Drug Contraindication: N/A - Med Ordered
--- NOTE | 2022-05-26 10:32 | MHC.CM.PN ---
Addendum entered by Radha Langford 05/26/22 10:36: PT IS COVID VAX AND BOOSTED Original Note: PT LIVES ALONE AND HAS A [employer] 2 HOURS DAILY, SUNDAY THROUGH SUNDAY HE IS ALSO ACTIVE WITH [facility] FOR LONG TERM PT HAS A HCP NAMING M[facility]ER W[facility]ATT HIS AGENT PCP: LESA AREVALO IMM DELIVERED PER MD ROUNDS, PT EXPECTED TO REMAIN THROUGH THE WEEKEND INITIAL DCP IS HOME WITH RESUMPTION OF [employer] AND [facility] SERVICES FAMILY TRANSPORT CM FOLLOWING FOR CHANGING DC NEEDS
--- NOTE | 2022-05-26 11:06 | P.CDIM_ITS ---
PROVIDER RESPONSE TEXT: To clarify, the appropriate diagnosis supported by the clinical indicators: Acute hypoxic respiratory failure QUERY TEXT: PHYSICIAN'S DOCUMENTATION REQUEST Date of Query: 05/26/2022 10:49 AM EDT Patient Name: Yao Herman Admit Date: 05/25/2022 Dear Chico Bourgeois, A review of the medical record indicates additional documentation may be needed. Please review below and update the documentation accordingly. Clinical Indicators: ED 05/25 chief complaint - History of COPD requiring 2lpm Home oxygen. H&P 05/25 - PMH: Acute on chronic respiratory failure Supplemental oxygen dependent Chief complaint: COPD not on home oxygen He has chronic respiratory failure and is on Home O2. PN: 05/26 - COPD, not on home oxygen. Acute respiratory failure secondary to pna, Continue supplementa l O2 to maintain oximetry greater than 92%. Please clarify which of the following accurately represents the patient's respiratory status: Clarity and consistency of a diagnosis documented: Acute hypoxic respiratory failure Acute on chronic hypoxic respiratory failure Other Unable to determine Other (explain) Clinically unable to determine (explain) Thank you, Libra Arriaga, CCS, CDIS Use of terms such as suspected, likely, concern for, or probable (associated with a specific diagnosi s that is being evaluated, monitored, or treated as if it exists) are acceptable and can be coded in the inpatient se tting, when documented at the time of discharge. Please use your independent medical judgment in providing your response. THIS QUERY IS PART OF THE PERMANENT MEDICAL RECORD
--- NOTE | 2022-05-26 16:46 | W.PM.IDCN ---
History of Present Illness Data of Consult Service Date: 05/26/22 [facility] Primary Care Provider: Olga Calzada MD HPI Reason for consult: cough,shortness of breath He presents two days worse cough and yellow purulent sputum He is hypoxic and on 6l oxygen,not at home. He has been treated JESSA eight months per Pulmonary and recently IV Ertapenem for resistant ESBL E coli sputum. He has blood from nose as well. Review of Systems Review of Systems: Yes all other systems are reviewed and are negative [facility] Past Medical History Medical History Acute and chronic respiratory failure BPH loc w urin obs/LUTS Bronchiectasis Bronchitis Congestive heart failure COPD (chronic obstructive pulmonary disease) Dysuria ESBL (extended spectrum beta-lactamase) producing bacteria infection Essential hypertension GERD (gastroesophageal reflux disease) Glaucoma Hearing loss Hernia History of MAC infection Hypoxia Kidney stone on left side JESSA (mycobacterium avium-intracellulare) NICM (nonischemic cardiomyopathy) Paroxysmal atrial fibrillation Pure hypercholesterolemia Supplemental oxygen dependent Urinary retention Family History Family History Father No problems noted. Mother Medical history unknown Sister Diabetes Daughter In good health Son In good health Brother No problems noted. Family history: reviewed and not pertinent Surgical History Surgical History History of bronchoscopy History of colonoscopy History of cystoscopy History of lumbar surgery History of rectal polypectomy Social History Social History Household Members: None Housing: Apartment Do you presently have visiting nurse or other home services: No ([employer] for 2 hrs per day) Alcohol intake: former Patient Tobacco Use Status: Former Tobacco user Quit Date: 6 years ago Tobacco use type: Cigarette Smoked in Last 30 Days: No e-Cigarette/Vaping Use: Never Used Second Hand Smoke Exposure: No Use of substances other than those prescribed or required for medical reasons: No Currently Displaying Signs/Symptoms of Drug Intoxication Withdrawal: No Have you been hit, kicked, punched, or otherwise hurt by someone within the past year? If so, by whom?: No Do you feel safe in your current relationship?: No Current Relationship Is there a partner from a previous relationship who is making you feel unsafe now?: No Are you made to feel afraid or neglected: No Advance Directives: Yes Advance Directives on File: Yes Advance Directives Date on File: 07/12/21 Do you have thoughts of harming others: None Do you have a plan to hurt others: No Plan Recently lost weight without trying: No Eating poorly because of decreased appetite: No Nutrition Risks: No Nutritional Risk Poor oral hygiene: No service: No Current occupational status: disabled Cognitive needs: No Hearing needs: Yes Vision needs: Yes Meds Allergies Allergy/AdvReac Type Severity Reaction Status Date / Time Penicillins [PENICILLINS] Allergy Intermediate PASSED Verified 05/25/22 12:55 OUT trazodone Allergy Intermediate tremors Verified 05/25/22 12:55 Active Medications: Current Medications Albuterol Sulfate (Albuterol Sulfate 90 Mcg 8 Gm Inhaler) 2 puff INHALE Q4H PRN PRN Reason: shortness of breath or wheezing Last Admin: 05/26/22 03:19 Dose: 2 puff Apixaban (Apixaban 5 Mg Tablet) 5 mg PO BID [facility] Last Admin: 05/26/22 07:48 Dose: 5 mg Brimonidine Tartrate (Brimonidine Tartrate 0.2% Oph 5 Ml Bottle) 1 drop EYE-BOTH BID [facility] Last Admin: 05/26/22 07:48 Dose: 1 drop Carvedilol (Carvedilol 12.5 Mg Tablet) 12.5 mg PO BID [facility]; Protocol Last Admin: 05/26/22 07:47 Dose: 12.5 mg Albuterol Sulfate 2.5 mg/ (Ipratropium [place] 0.5 mg) 0 mg INHALE Q4H PRN PRN Reason: Wheezing Last Admin: 05/26/22 06:11 Dose: 2.5 each Finasteride (Finasteride 5 Mg Tablet) 5 mg PO DAILY [facility] Last Admin: 05/26/22 07:48 Dose: 5 mg Guaifenesin (Guaifenesin 100 Mg/5 Ml Liquid) 5 ml PO Q4H PRN PRN Reason: Cough Last Admin: 05/26/22 15:59 Dose: 5 ml Meropenem 1 gm/ Sodium (Chloride) 100 mls @ 200 mls/hr IV Q8H [facility] Last Admin: 05/26/22 15:59 Dose: 200 mls/hr Latanoprost (Latanoprost 0.005 % Ophth Thalia 2.5 Ml Drops) 1 drop EYE-BOTH BEDTIME [facility] Melatonin (Melatonin 3 Mg Tablet) 3 mg PO BEDTIME PRN PRN Reason: Insomnia Omeprazole (Omeprazole 40 Mg Capsule.Dr) 40 mg PO DAILY@629 [facility] Last Admin: 05/26/22 06:35 Dose: 40 mg Pharmacy Consult (Consult Rx Perform Med Rec) 1 each MISCELLANE ONCE PRN PRN Reason: Consult order Pravastatin Sodium (Pravastatin Sodium 10 Mg Tablet) 10 mg PO DAILY [facility] Last Admin: 05/26/22 07:48 Dose: 10 mg Prednisone (Prednisone 5 Mg Tablet) 5 mg PO DAILY [facility] Last Admin: 05/26/22 07:48 Dose: 5 mg Sacubitril/Valsartan (Sacubitril/Valsartan 1 Tab Tablet) 1 tab PO BID [facility]; Protocol Last Admin: 05/26/22 07:47 Dose: 1 tab Sodium Chloride (0.9 % Sodium Chloride Flush 3 Ml Syringe) 3 ml IVFLUSH QSHIFT [facility] Last Admin: 05/26/22 16:00 Dose: 3 ml Tamsulosin HCl (Tamsulosin Hcl 0.4 Mg Capsule) 0.4 mg PO DAILY [facility] Last Admin: 05/26/22 07:48 Dose: 0.4 mg Timolol Maleate (Timolol Maleate 0.5 % Oph Thalia 5 Ml Drbtl) 1 drop EYE-BOTH BID [facility] Last Admin: 05/26/22 07:48 Dose: 1 drop Tobramycin Sulfate (Tobramycin Sulfate 80 Mg/2 Ml Vial) 300 mg INHALE BID@0700,1900 [facility] Last Admin: 05/26/22 07:25 Dose: 300 mg Home Medications Medication Instructions Recorded Confirmed Last Taken Type brimonidine 0.2 %-timolol 0.5 % 1 drp ophthalmic (eye) BID 03/08/21 05/25/22 03/24/22 History eye drops (Combigan) travoprost 0.004 % eye drops 1 drp ophthalmic (eye) BEDTIME 03/08/21 05/25/22 03/24/22 History omeprazole 40 mg capsule,delayed 40 mg PO DAILY@0630 03/25/22 05/25/22 04/14/22 History release Physical Exam Vital Signs: Vital Signs: Last Vital Signs Temp 97.6 F 05/26/22 15:11 Pulse 69 05/26/22 15:11 Resp 14 05/26/22 15:11 BP 115/59 L 05/26/22 15:11 Pulse Ox 100 05/26/22 15:11 O2 Del Method 05/26/22 15:11 O2 Flow Rate 6 05/26/22 15:11 Oxygen Flow Rate 2 05/25/22 17:09 BMI result Body Mass Index 23.3 Const: General: cooperative HEENT: Head: Yes normal to inspection Face and sinus: Yes normal facial exam Mouth: Normal oral and palatal mucosa present Teeth and gingiva: dentition normal Eyes: General: appearance normal, both eyes and all related structures Pupils: Equal, round and reactive pupils present Resp: Other: rhonchi bases Cardio: Rate: regular rate Rhythm: regular rhythm GI: Palpation (GI): Soft to palpation and nontender : General: Yes no CVA tenderness Back/Spine/Pelvis: Back: no CVA tenderness Skin: General skin exam: no rashes or lesions noted Neuro: General: moves all extremities Cranial nerves: Yes Equal, round and reactive pupils present Extrem: General: Yes normal to inspection Psych: Appearance: grossly normal Results Labs 05/25/22 13:51 05/25/22 13:51 Assessment and Plan (1) Multifocal pneumonia: Status: Acute He has possible resistant organism He may have atypical organisms He has had JESSA Plan Continue Merem and may use Tobramycin per Pulmonary Check nares MRSA Urine Legionella and strep pneumonia COVID and flu and RSV check if not done. Sputum culture. Time Spent With Patient Time: Total time managing care of this patient today ____ minutes.
[2022-05-27 04:00] VITALS: BP 129/66; PULSE 76; RESP 20; TEMP 36.4; O2SAT 96
[2022-05-27] MEDS: ondansetron HCL 4 MG/2 ML VIAL IVPUSH (05:01)
[2022-05-27] MEDS: Omeprazole 40 MG CAPSULE.DR PO (05:47)
[2022-05-27] MEDS: Tobramycin Sulfate 80 MG/2 ML VIAL 300 MG INHALE (07:50)
[2022-05-27 08:00] VITALS: BP 146/58; PULSE 92; RESP 18; TEMP 36.2
[2022-05-27 08:05] VITALS: PULSE 80; RESP 20; O2SAT 92
[2022-05-27] MEDS: Pravastatin Sodium 10 MG TABLET PO (08:48)
[2022-05-27] MEDS: Finasteride 5 MG TABLET PO (08:48)
[2022-05-27] MEDS: Sacubitril/Valsartan 24/26 1 TAB TABLET PO ×2 (08:48→20:02)
[2022-05-27] MEDS: Apixaban 5 MG TABLET PO ×2 (08:48→20:02)
[2022-05-27] MEDS: predniSONE 5 MG TABLET PO (08:49)
[2022-05-27] MEDS: 0.9 % Sodium Chloride Flush 3 ML SYRINGE IVFLUSH ×3 (08:49→20:02)
[2022-05-27] MEDS: carvediloL 12.5 MG TABLET PO ×2 (08:49→20:02)
[2022-05-27] MEDS: Tamsulosin HCL 0.4 MG CAPSULE PO (08:49)
[2022-05-27] MEDS: Brimonidine Tartrate 0.2% Oph 5 ML BOTTLE 1 DROP EYE-BOTH (08:49)
[2022-05-27] MEDS: timoloL maleate 0.5 % Oph Sol 5 ML DRBTL 1 DROP EYE-BOTH (08:50)
--- NOTE | 2022-05-27 09:01 | P.PNIM_ITS ---
Subjective Subjective Date of Service: 05/27/22 Interval History: f/u on pneumonia, sob coughing large amount of purulent sputum still still sob but better Physical Exam Vital Signs: Vital Signs: Last Vital Signs Temp 97.1 F 05/27/22 08:00 Pulse 80 05/27/22 08:05 Resp 20 05/27/22 08:05 BP 146/58 H 05/27/22 08:00 Pulse Ox 96 05/27/22 04:00 O2 Del Method 05/27/22 04:00 O2 Flow Rate 3 05/27/22 04:00 Oxygen Flow Rate 2 05/25/22 17:09 BMI result Body Mass Index 23.3 Const: Other: Constitutional - Awake and Alert, No apparent distress Eyes - PERRLA, EOMI Cardiovascular - S1S2, RRR, No edema Respiratory - Normal lung expansion, Normal respiratory effort, No respiratory distress, scatteredrhonchi Gastrointestinal - NT / ND; +BS; No rebound or guarding Extremities - no calf tenderness bilaterally, no swelling Musculoskeletal - Normal inspection, normal ROM Skin - Warm/Dry Neurological - Alert & oriented x3, CN II-XII in tact, 5/5 strength BUE and BLE Psychological - Appropriate affect Objective Data Active Medications Albuterol Sulfate (Albuterol Sulfate 90 Mcg 8 Gm Inhaler) 2 puff INHALE Q4H PRN PRN Reason: shortness of breath or wheezing Last Admin: 05/26/22 03:19 Dose: 2 puff Documented By: KENNY Apixaban (Apixaban 5 Mg Tablet) 5 mg PO BID [facility] Last Admin: 05/27/22 08:48 Dose: 5 mg Documented By: JOHANNA Brimonidine Tartrate (Brimonidine Tartrate 0.2% Oph 5 Ml Bottle) 1 drop EYE- BOTH BID [facility] Last Admin: 05/27/22 08:49 Dose: 1 drop Documented By: JOHANNA Carvedilol (Carvedilol 12.5 Mg Tablet) 12.5 mg PO BID [facility]; Protocol Last Admin: 05/27/22 08:49 Dose: 12.5 mg Documented By: JOHANNA Albuterol Sulfate 2.5 mg/ (Ipratropium [place] 0.5 mg) 0 mg INHALE Q4H PRN PRN Reason: Wheezing Last Admin: 05/26/22 16:49 Dose: 2.5 each Documented By: HESHAM Finasteride (Finasteride 5 Mg Tablet) 5 mg PO DAILY [facility] Last Admin: 05/27/22 08:48 Dose: 5 mg Documented By: JOHANNA Guaifenesin (Guaifenesin 100 Mg/5 Ml Liquid) 5 ml PO Q4H PRN PRN Reason: Cough Last Admin: 05/26/22 19:57 Dose: 5 ml Documented By: TEE Meropenem 1 gm/ Sodium (Chloride) 100 mls @ 200 mls/hr IV Q8H [facility] Last Admin: 05/27/22 08:49 Dose: 200 mls/hr Documented By: JOHANNA Latanoprost (Latanoprost 0.005 % Ophth Thalia 2.5 Ml Drops) 1 drop EYE-BOTH BEDTIME [facility] Last Admin: 05/26/22 21:19 Dose: Not Given Documented By: TEE Non-Admin Reason: Patient Refused Melatonin (Melatonin 3 Mg Tablet) 3 mg PO BEDTIME PRN PRN Reason: Insomnia Omeprazole (Omeprazole 40 Mg Capsule.Dr) 40 mg PO DAILY@0630 [facility] Last Admin: 05/27/22 05:47 Dose: 40 mg Documented By: TEE Ondansetron HCl (Ondansetron Hcl 4 Mg/2 Ml Vial) 4 mg IVPUSH Q6H PRN PRN Reason: Nausea Last Admin: 05/27/22 05:01 Dose: 4 mg Documented By: TEE Pharmacy Consult (Consult Rx Perform Med Rec) 1 each MISCELLANE ONCE PRN PRN Reason: Consult order Pravastatin Sodium (Pravastatin Sodium 10 Mg Tablet) 10 mg PO DAILY [facility] Last Admin: 05/27/22 08:48 Dose: 10 mg Documented By: JOHANNA Prednisone (Prednisone 5 Mg Tablet) 5 mg PO DAILY [facility] Last Admin: 05/27/22 08:49 Dose: 5 mg Documented By: JOHANNA Sacubitril/Valsartan (Sacubitril/Valsartan 1 Tab Tablet) 1 tab PO BID [facility]; Protocol Last Admin: 05/27/22 08:48 Dose: 1 tab Documented By: JOHANNA Sodium Chloride (0.9 % Sodium Chloride Flush 3 Ml Syringe) 3 ml IVFLUSH QSHIFT [facility] Last Admin: 05/27/22 08:49 Dose: 3 ml Documented By: JOHANNA Tamsulosin HCl (Tamsulosin Hcl 0.4 Mg Capsule) 0.4 mg PO DAILY [facility] Last Admin: 05/27/22 08:49 Dose: 0.4 mg Documented By: JOHANNA Timolol Maleate (Timolol Maleate 0.5 % Oph Thalia 5 Ml Drbtl) 1 drop EYE-BOTH BID [facility] Last Admin: 05/27/22 08:50 Dose: 1 drop Documented By: JOHANNA Tobramycin Sulfate (Tobramycin Sulfate 80 Mg/2 Ml Vial) 300 mg INHALE BID@0700,1900 [facility] Last Admin: 05/27/22 07:50 Dose: 300 mg Documented By: TAYLOR Labs 05/25/22 13:51 05/25/22 13:51 Microbiology Microbiology Results: Microbiology 05/25/22 15:46 Blood Culture - Preliminary Blood - Venous No growth after 24 hours. 05/25/22 15:45 Blood Culture - Preliminary Blood - Venous No growth after 24 hours. Assessment and Plan (1) Pneumonia: Status: Acute (2) Multifocal pneumonia: Status: Acute Plan 81-year-old male with history of bronchiectasis, COPD, not on home oxygen, HFpEF, hypertension, GERD, glaucoma, history of JESSA,? NICM, paroxysmal atrial fibrillation no longer on anticoagulation due to hematuria, and hypercholesterolemia with recent admissions for COPD exacberation with acute hypoxic respiratory failure # Acute respiratory failure- secondary to pneumonia with underlying chronic bronchiectasi d/t JESSA -Continue supplemental O2 to maintain oximetry greater than 92% #multifocal pneumonia--started on Meropenem, Tobra inhalation, continue, ID consult # COPD, no exacerbation, bronchodilators routinely # BPH with LUTS and chronic urinary retention -continue chronic Schwarz, -continue finasteride, tamsulosin #HFpEF- no acute exacerbation -Continue entresto, coreg #Non ischemic cardiomyopathy (NICM) -Continue carvedilol, entresto #glaucoma -continue home drops #Parox Afib- rate controlled -eliquis -continue carvedilol # hypertension -continue home meds DVT prophylaxis-eliquis Full code Admission to span at least 2 midnights for management for managment of multifocal pneumonia, acute respiratory failure Time Spent With Patient Time: Total time managing care of this patient today ____ minutes. Quality Stroke Does the patient have a stroke diagnosis?: No VTE Prior VTE?: No VTE Risk Level:: Medical - moderate - high VTE Device Contraindication: Treatment Not Indicated VTE Drug Contraindication: N/A - Med Ordered
--- NOTE | 2022-05-27 12:59 | PM.IDPN ---
Subjective Subjective Date of Service: 05/27/22 Critical Care Time (minutes): 15 Comment: he has no complaints Objective Data Labs 05/25/22 13:51 05/25/22 13:51 Microbiology Microbiology Results: Microbiology 05/25/22 15:46 Blood - Venous Blood Culture - Preliminary No growth after 24 hours. 05/25/22 15:45 Blood - Venous Blood Culture - Preliminary No growth after 24 hours. Physical Exam Vital Signs: Vital Signs: Last Vital Signs Temp 97.1 F 05/27/22 08:00 Pulse 80 05/27/22 08:05 Resp 20 05/27/22 08:05 BP 146/58 H 05/27/22 08:00 Pulse Ox 96 05/27/22 04:00 O2 Del Method 05/27/22 04:00 O2 Flow Rate 3 05/27/22 04:00 Oxygen Flow Rate 2 05/25/22 17:09 BMI result Body Mass Index 23.3 Const: General: cooperative Resp: Effort & Inspection: normal respiratory effort Cardio: Rate: regular rate Rhythm: regular rhythm GI: Inspection: Yes normal to inspection Assessment and Plan Assessment and plan (1) Pneumonia: Problem details: He appears feeling slight better Status: Acute Assessment and Plan: 5-7 day Merem cover gram negative (2) Multifocal pneumonia: Status: Acute Time Spent With Patient Time: Total time managing care of this patient today ____ minutes.
[2022-05-27 15:16] VITALS: PULSE 93; RESP 24; O2SAT 88
[2022-05-27 16:00] VITALS: BP 113/62; PULSE 90; RESP 20; TEMP 37.6; O2SAT 93
[2022-05-27 20:00] VITALS: BP 102/55; PULSE 85; RESP 24; TEMP 36.8; O2SAT 96
[2022-05-27] MEDS: guaiFENesin 100 MG/5 ML LIQUID PO (20:02)
[2022-05-27] MEDS: Latanoprost 0.005 % Ophth Sol 2.5 ML DROPS 1 DROP EYE-BOTH (20:53)
[2022-05-28 03:11] VITALS: BP 105/54; PULSE 80; RESP 22; TEMP 37.2; O2SAT 94
[2022-05-28 05:08] VITALS: PULSE 76; RESP 22; O2SAT 96
[2022-05-28] MEDS: Omeprazole 40 MG CAPSULE.DR PO (05:43)
[2022-05-28 08:00] VITALS: BP 100/53; PULSE 70; RESP 24; TEMP 36.9; O2SAT 96
--- NOTE | 2022-05-28 08:20 | P.PNIM_ITS ---
Subjective Subjective Date of Service: 05/28/22 Interval History: f/u on pneumonia, sob persistent cough with sputum production overall better Review of Systems Gen: no fever Resp: + sob, + cough CV: no chest, + WRIGHT, no leg edema GI: No n/v, no abd pain Neuro: No confusion Physical Exam Vital Signs: Vital Signs: Last Vital Signs Temp 98.5 F 05/28/22 08:00 Pulse 70 05/28/22 08:00 Resp 24 H 05/28/22 08:00 BP 100/53 L 05/28/22 08:00 Pulse Ox 96 05/28/22 08:00 O2 Del Method 05/28/22 08:00 O2 Flow Rate 2 05/28/22 08:00 Oxygen Flow Rate 2 05/25/22 17:09 BMI result Body Mass Index 23.3 Const: Other: Constitutional - Awake and Alert, No apparent distress Eyes - PERRLA, EOMI Cardiovascular - S1S2, RRR, No edema Respiratory - Normal lung expansion, Normal respiratory effort, No respiratory distress, scatteredrhonchi Gastrointestinal - NT / ND; +BS; No rebound or guarding Extremities - no calf tenderness bilaterally, no swelling Musculoskeletal - Normal inspection, normal ROM Skin - Warm/Dry Neurological - Alert & oriented x3, CN II-XII in tact, 5/5 strength BUE and BLE Psychological - Appropriate affect Objective Data Active Medications Albuterol Sulfate (Albuterol Sulfate 90 Mcg 8 Gm Inhaler) 2 puff INHALE Q4H PRN PRN Reason: shortness of breath or wheezing Last Admin: 05/26/22 03:19 Dose: 2 puff Documented By: KENNY Apixaban (Apixaban 5 Mg Tablet) 5 mg PO BID [facility] Last Admin: 05/27/22 20:02 Dose: 5 mg Documented By: TEE Brimonidine Tartrate (Brimonidine Tartrate 0.2% Oph 5 Ml Bottle) 1 drop EYE- BOTH BID [facility] Last Admin: 05/27/22 20:04 Dose: Not Given Documented By: TEE Non-Admin Reason: pt states only once a day Carvedilol (Carvedilol 12.5 Mg Tablet) 12.5 mg PO BID [facility]; Protocol Last Admin: 05/27/22 20:02 Dose: 12.5 mg Documented By: TEE Albuterol Sulfate 2.5 mg/ (Ipratropium [place] 0.5 mg) 0 mg INHALE Q4H PRN PRN Reason: Wheezing Last Admin: 05/28/22 05:06 Dose: 2.5 each Documented By: KENNY Finasteride (Finasteride 5 Mg Tablet) 5 mg PO DAILY [facility] Last Admin: 05/27/22 08:48 Dose: 5 mg Documented By: JOHANNA Guaifenesin (Guaifenesin 100 Mg/5 Ml Liquid) 5 ml PO Q4H PRN PRN Reason: Cough Last Admin: 05/27/22 20:02 Dose: 5 ml Documented By: TEE Meropenem 1 gm/ Sodium (Chloride) 100 mls @ 200 mls/hr IV Q8H [facility] Last Infusion: 05/27/22 23:57 Dose: 0 mls/hr Documented By: TEE Latanoprost (Latanoprost 0.005 % Ophth [place]alia 2.5 Ml Drops) 1 drop EYE-BOTH BEDTIME [facility] Last Admin: 05/27/22 20:53 Dose: 1 drop Documented By: TEE Melatonin (Melatonin 3 Mg Tablet) 3 mg PO BEDTIME PRN PRN Reason: Insomnia Omeprazole (Omeprazole 40 Mg Capsule.Dr) 40 mg PO DAILY@0630 [facility] Last Admin: 05/28/22 05:43 Dose: 40 mg Documented By: TEE Ondansetron HCl (Ondansetron Hcl 4 Mg/2 Ml Vial) 4 mg IVPUSH Q6H PRN PRN Reason: Nausea Last Admin: 05/27/22 05:01 Dose: 4 mg Documented By: TEE Pharmacy Consult (Consult Rx Perform Med Rec) 1 each MISCELLANE ONCE PRN PRN Reason: Consult order Pravastatin Sodium (Pravastatin Sodium 10 Mg Tablet) 10 mg PO DAILY [facility] Last Admin: 05/27/22 08:48 Dose: 10 mg Documented By: JOHANNA Prednisone (Prednisone 5 Mg Tablet) 5 mg PO DAILY [facility] Last Admin: 05/27/22 08:49 Dose: 5 mg Documented By: JOHANNA Sacubitril/Valsartan (Sacubitril/Valsartan 24/26 1 Tab Tablet) 1 tab PO BID [facility]; Protocol Last Admin: 05/27/22 20:02 Dose: 1 tab Documented By: TEE Sodium Chloride (0.9 % Sodium Chloride Flush 3 Ml Syringe) 3 ml IVFLUSH QSHIFT [facility] Last Admin: 05/27/22 20:02 Dose: 3 ml Documented By: TEE Tamsulosin HCl (Tamsulosin Hcl 0.4 Mg Capsule) 0.4 mg PO DAILY [facility] Last Admin: 05/27/22 08:49 Dose: 0.4 mg Documented By: JOHANNA Timolol Maleate (Timolol Maleate 0.5 % Oph Thalia 5 Ml Drbtl) 1 drop EYE-BOTH BID [facility] Last Admin: 05/27/22 20:03 Dose: Not Given Documented By: TEE Non-Admin Reason: pt states only once a day Labs 05/25/22 13:51 05/25/22 13:51 Microbiology Microbiology Results: Microbiology 05/25/22 15:46 Blood Culture - Preliminary Blood - Venous No growth after 48 hours. 05/25/22 15:45 Blood Culture - Preliminary Blood - Venous No growth after 48 hours. Assessment and Plan (1) Pneumonia: Status: Acute (2) Multifocal pneumonia: Status: Acute Plan 81-year-old male with history of bronchiectasis, COPD, not on home oxygen, HFpEF, hypertension, GERD, glaucoma, history of JESSA,? NICM, paroxysmal atrial fibrillation no longer on anticoagulation due to hematuria, and hypercholesterolemia with recent admissions for COPD exacberation with acute hypoxic respiratory failure # Acute respiratory failure- secondary to pneumonia with underlying chronic bronchiectasi d/t JESSA -Continue supplemental O2 to maintain oximetry greater than 92% #multifocal pneumonia--started on Meropenem 05/26 continue, ID recommend 5 to 7 of Meropenem # COPD, no exacerbation, bronchodilators routinely # BPH with LUTS and chronic urinary retention -continue chronic Schwarz, -continue finasteride, tamsulosin #HFpEF- no acute exacerbation -Continue entresto, coreg #Non ischemic cardiomyopathy (NICM) -Continue carvedilol, entresto #glaucoma -continue home drops #Parox Afib- rate controlled -eliquis -continue carvedilol # hypertension -continue home meds DVT prophylaxis-eliquis Full code need for inaptent; multifocal pna, bronchiectasis and very ill appearing and needs IV Abx Time Spent With Patient Time: Total time managing care of this patient today ____ minutes. Quality Stroke Does the patient have a stroke diagnosis?: No VTE Prior VTE?: No VTE Risk Level:: Medical - moderate - high VTE Device Contraindication: Treatment Not Indicated VTE Drug Contraindication: N/A - Med Ordered
[2022-05-28] MEDS: Tamsulosin HCL 0.4 MG CAPSULE PO (08:50)
[2022-05-28] MEDS: Pravastatin Sodium 10 MG TABLET PO (08:50)
[2022-05-28] MEDS: Apixaban 5 MG TABLET PO ×2 (08:50→20:03)
[2022-05-28] MEDS: 0.9 % Sodium Chloride Flush 3 ML SYRINGE IVFLUSH ×2 (08:50→15:56)
[2022-05-28] MEDS: predniSONE 5 MG TABLET PO (08:50)
[2022-05-28] MEDS: carvediloL 12.5 MG TABLET PO ×2 (08:51→20:03)
[2022-05-28] MEDS: Finasteride 5 MG TABLET PO (08:51)
[2022-05-28] MEDS: Sacubitril/Valsartan 24/26 1 TAB TABLET PO ×2 (08:51→20:03)
[2022-05-28] MEDS: timoloL maleate 0.5 % Oph Sol 5 ML DRBTL 1 DROP EYE-BOTH ×2 (08:51→20:04)
[2022-05-28] MEDS: Brimonidine Tartrate 0.2% Oph 5 ML BOTTLE 1 DROP EYE-BOTH ×2 (08:51→20:04)
[2022-05-28] MEDS: guaiFENesin 100 MG/5 ML LIQUID PO (11:34)
[2022-05-28 15:42] VITALS: BP 101/50; PULSE 75; RESP 20; TEMP 36.7; O2SAT 98
[2022-05-28 18:22] VITALS: PULSE 82; RESP 24; O2SAT 94
[2022-05-28 19:38] VITALS: BP 95/51; PULSE 78; RESP 20; TEMP 36.8; O2SAT 96
[2022-05-28] MEDS: Latanoprost 0.005 % Ophth Sol 2.5 ML DROPS 1 DROP EYE-BOTH (20:04)
[2022-05-29] MEDS: guaiFENesin 100 MG/5 ML LIQUID PO ×3 (03:29→20:30)
[2022-05-29 03:33] VITALS: BP 98/52; PULSE 77; RESP 20; TEMP 37.2; O2SAT 98
[2022-05-29] MEDS: Omeprazole 40 MG CAPSULE.DR PO (05:38)
[2022-05-29 07:26] VITALS: BP 136/65; PULSE 92; RESP 20; TEMP 36.7; O2SAT 97
[2022-05-29 08:54] VITALS: PULSE 89; RESP 20; O2SAT 94
[2022-05-29] MEDS: Sacubitril/Valsartan 24/26 1 TAB TABLET PO ×2 (09:19→19:26)
[2022-05-29] MEDS: Pravastatin Sodium 10 MG TABLET PO (09:19)
[2022-05-29] MEDS: predniSONE 5 MG TABLET PO (09:19)
[2022-05-29] MEDS: carvediloL 12.5 MG TABLET PO ×2 (09:19→19:26)
[2022-05-29] MEDS: Tamsulosin HCL 0.4 MG CAPSULE PO (09:19)
[2022-05-29] MEDS: Apixaban 5 MG TABLET PO ×2 (09:19→19:26)
[2022-05-29] MEDS: Finasteride 5 MG TABLET PO (09:20)
[2022-05-29] MEDS: Brimonidine Tartrate 0.2% Oph 5 ML BOTTLE 1 DROP EYE-BOTH ×2 (09:21→19:27)
[2022-05-29] MEDS: timoloL maleate 0.5 % Oph Sol 5 ML DRBTL 1 DROP EYE-BOTH ×2 (09:21→19:32)
--- NOTE | 2022-05-29 11:22 | HO.PM.IMPN ---
Subjective Subjective Date of Service: 05/30/22 Interval History: f/u on pneumonia, sob cough is better and oveall is feeling better Review of Systems Gen: no fever Resp: + sob, + cough CV: no chest, + WRIGHT, no leg edema GI: No n/v, no abd pain Neuro: No confusion Physical Exam Vital Signs: Vital Signs: Last Vital Signs Temp 98.0 F 05/29/22 07:26 Pulse 89 05/29/22 08:54 Resp 20 05/29/22 08:54 BP 136/65 05/29/22 07:26 Pulse Ox 97 05/29/22 07:26 O2 Del Method 05/29/22 07:26 O2 Flow Rate 3 05/29/22 07:26 Oxygen Flow Rate 2 05/25/22 17:09 BMI result Body Mass Index 23.3 Const: Other: Constitutional - Awake and Alert, No apparent distress Eyes - PERRLA, EOMI Cardiovascular - S1S2, RRR, No edema Respiratory - Normal lung expansion, Normal respiratory effort, No respiratory distress, scatteredrhonchi Gastrointestinal - NT / ND; +BS; No rebound or guarding Extremities - no calf tenderness bilaterally, no swelling Musculoskeletal - Normal inspection, normal ROM Skin - Warm/Dry Neurological - Alert & oriented x3, CN II-XII in tact, 5/5 strength BUE and BLE Psychological - Appropriate affect Objective Data Active Medications Albuterol Sulfate (Albuterol Sulfate 90 Mcg 8 Gm Inhaler) 2 puff INHALE Q4H PRN PRN Reason: shortness of breath or wheezing Last Admin: 05/26/22 03:19 Dose: 2 puff Documented By: KENNY Apixaban (Apixaban 5 Mg Tablet) 5 mg PO BID [facility] Last Admin: 05/29/22 09:19 Dose: 5 mg Documented By: JASMIN Brimonidine Tartrate (Brimonidine Tartrate 0.2% Oph 5 Ml Bottle) 1 drop EYE-BOTH BID [facility] Last Admin: 05/29/22 09:21 Dose: 1 drop Documented By: JASMIN Carvedilol (Carvedilol 12.5 Mg Tablet) 12.5 mg PO BID [facility]; Protocol Last Admin: 05/29/22 09:19 Dose: 12.5 mg Documented By: JASMIN Albuterol Sulfate 2.5 mg/ (Ipratropium [place] 0.5 mg) 0 mg INHALE Q4H PRN PRN Reason: Wheezing Last Admin: 05/29/22 08:51 Dose: 2.5 each Documented By: EBONI Finasteride (Finasteride 5 Mg Tablet) 5 mg PO DAILY [facility] Last Admin: 05/29/22 09:20 Dose: 5 mg Documented By: JASMIN Guaifenesin (Guaifenesin 100 Mg/5 Ml Liquid) 5 ml PO Q4H PRN PRN Reason: Cough Last Admin: 05/29/22 03:29 Dose: 5 ml Documented By: VINOD Meropenem 1 gm/ Sodium (Chloride) 100 mls @ 200 mls/hr IV Q8H [facility] Last Infusion: 05/29/22 09:50 Dose: 0 mls/hr Documented By: JASMIN Latanoprost (Latanoprost 0.005 % Ophth [place] 2.5 Ml Drops) 1 drop EYE-BOTH BEDTIME [facility] Last Admin: 05/28/22 20:04 Dose: 1 drop Documented By: VINOD Melatonin (Melatonin 3 Mg Tablet) 3 mg PO BEDTIME PRN PRN Reason: Insomnia Omeprazole (Omeprazole 40 Mg Capsule.) 40 mg PO DAILY@0630 [facility] Last Admin: 05/29/22 05:38 Dose: 40 mg Documented By: VINOD Ondansetron HCl (Ondansetron Hcl 4 Mg/2 Ml Vial) 4 mg IVPUSH Q6H PRN PRN Reason: Nausea Last Admin: 05/27/22 05:01 Dose: 4 mg Documented By: TEE Pharmacy Consult (Consult Rx Perform Med Rec) 1 each MISCELLANE ONCE PRN PRN Reason: Consult order Pravastatin Sodium (Pravastatin Sodium 10 Mg Tablet) 10 mg PO DAILY [facility] Last Admin: 05/29/22 09:19 Dose: 10 mg Documented By: JASMIN Prednisone (Prednisone 5 Mg Tablet) 5 mg PO DAILY [facility] Last Admin: 05/29/22 09:19 Dose: 5 mg Documented By: JASMIN Sacubitril/Valsartan (Sacubitril/Valsartan 1 Tab Tablet) 1 tab PO BID [facility]; Protocol Last Admin: 05/29/22 09:19 Dose: 1 tab Documented By: JASMIN Sodium Chloride (0.9 % Sodium Chloride Flush 3 Ml Syringe) 3 ml IVFLUSH QSHIFT [facility] Last Admin: 05/29/22 07:20 Dose: Not Given Documented By: JASMIN Non-Admin Reason: See Note Tamsulosin HCl (Tamsulosin Hcl 0.4 Mg Capsule) 0.4 mg PO DAILY [facility] Last Admin: 05/29/22 09:19 Dose: 0.4 mg Documented By: JASMIN Timolol Maleate (Timolol Maleate 0.5 % Oph [place] 5 Ml Drbtl) 1 drop EYE-BOTH BID [facility] Last Admin: 05/29/22 09:21 Dose: 1 drop Documented By: JASMIN Labs 05/25/22 13:51 05/25/22 13:51 Assessment and Plan (1) Pneumonia: Status: Acute (2) Multifocal pneumonia: Status: Acute Plan 81-year-old male with history of bronchiectasis, COPD, not on home oxygen, HFpEF, hypertension, GERD, glaucoma, history of JESSA,? NICM, paroxysmal atrial fibrillation no longer on anticoagulation due to hematuria, and hypercholesterolemia with recent admissions for COPD exacberation with acute hypoxic respiratory failure # Acute respiratory failure- secondary to pneumonia with underlying chronic bronchiectasi d/t JESSA -Continue supplemental O2 to maintain oximetry greater than 92% #multifocal pneumonia--started on Meropenem 05/26 continue, ID recommend 5 to 7 of Meropenem, then to oral ? levaquin # COPD, no exacerbation, bronchodilators routinely # BPH with LUTS and chronic urinary retention -continue chronic Schwarz, -continue finasteride, tamsulosin #HFpEF- no acute exacerbation -Continue entresto, coreg #Non ischemic cardiomyopathy (NICM) -Continue carvedilol, entresto #glaucoma -continue home drops #Parox Afib- rate controlled -eliquis -continue carvedilol # hypertension -continue home meds DVT prophylaxis-eliquis Full code need for inaptent; multifocal pna, bronchiectasis and very ill appearing and needs IV Abx Time Spent With Patient Time: Total time managing care of this patient today ____ minutes. Quality Stroke Does the patient have a stroke diagnosis?: No VTE Prior VTE?: No VTE Risk Level:: Medical - moderate - high VTE Device Contraindication: Treatment Not Indicated VTE Drug Contraindication: N/A - Med Ordered
--- NOTE | 2022-05-29 14:43 | MHC.CM.PN ---
PER MD ROUNDS, PT LIKELY TO BE CLEARED TO DC TOMORROW DCP: HOME RESUME [employer] AND [facility] FAMILY TO TRANSPORT
[2022-05-29 15:29] VITALS: BP 107/60; PULSE 78; RESP 18; TEMP 36.6; O2SAT 96
[2022-05-29] MEDS: 0.9 % Sodium Chloride Flush 3 ML SYRINGE IVFLUSH (16:02)
[2022-05-29 16:47] VITALS: PULSE 74; RESP 16; O2SAT 98
[2022-05-29 19:17] VITALS: BP 109/58; PULSE 75; RESP 20; TEMP 36.9; O2SAT 97
[2022-05-29] MEDS: Latanoprost 0.005 % Ophth Sol 2.5 ML DROPS 1 DROP EYE-BOTH (19:28)
[2022-05-29] MEDS: Melatonin 3 MG TABLET PO (20:31)
[2022-05-30] VITALS (8 sets, daily range): BP systolic 106–123; BP diastolic 53–58; PULSE 72–104; RESP 16–22; TEMP 36.7–37.1; O2SAT 95–98
[2022-05-30] MEDS: 0.9 % Sodium Chloride Flush 3 ML SYRINGE IVFLUSH ×2 (00:05→16:36)
[2022-05-30] MEDS: Omeprazole 40 MG CAPSULE.DR PO (06:16)
[2022-05-30] MEDS: Finasteride 5 MG TABLET PO (09:39)
[2022-05-30] MEDS: Sacubitril/Valsartan 24/26 1 TAB TABLET PO ×2 (09:39→21:00)
[2022-05-30] MEDS: predniSONE 5 MG TABLET PO (09:40)
[2022-05-30] MEDS: Pravastatin Sodium 10 MG TABLET PO (09:40)
[2022-05-30] MEDS: Tamsulosin HCL 0.4 MG CAPSULE PO (09:40)
[2022-05-30] MEDS: Apixaban 5 MG TABLET PO ×2 (09:40→21:00)
[2022-05-30] MEDS: timoloL maleate 0.5 % Oph Sol 5 ML DRBTL 1 DROP EYE-BOTH ×2 (09:48→21:04)
[2022-05-30] MEDS: Brimonidine Tartrate 0.2% Oph 5 ML BOTTLE 1 DROP EYE-BOTH ×2 (09:48→21:04)
[2022-05-30] MEDS: carvediloL 12.5 MG TABLET PO ×2 (09:50→21:00)
--- NOTE | 2022-05-30 11:07 | P.PNIM_ITS ---
Subjective Subjective Date of Service: 05/30/22 Interval History: f/u on pneumonia, sob coughing less with scant sputum, no sob Physical Exam Vital Signs: Vital Signs: Last Vital Signs Temp 98.2 F 05/30/22 07:25 Pulse 104 H 05/30/22 10:27 Resp 22 H 05/30/22 09:43 BP 114/56 L 05/30/22 07:25 Pulse Ox 96 05/30/22 07:25 O2 Del Method 05/30/22 07:25 O2 Flow Rate 2 05/30/22 07:25 Oxygen Flow Rate 2 05/25/22 17:09 BMI result Body Mass Index 23.3 Const: Other: Constitutional - Awake and Alert, No apparent distress Eyes - PERRLA, EOMI Cardiovascular - S1S2, RRR, No edema Respiratory - Normal lung expansion, Normal respiratory effort, No respiratory distress, scatteredrhonchi Gastrointestinal - NT / ND; +BS; No rebound or guarding Extremities - no calf tenderness bilaterally, no swelling Musculoskeletal - Normal inspection, normal ROM Skin - Warm/Dry Neurological - Alert & oriented x3, CN II-XII in tact, 5/5 strength BUE and BLE Psychological - Appropriate affect Objective Data Active Medications Albuterol Sulfate (Albuterol Sulfate 90 Mcg 8 Gm Inhaler) 2 puff INHALE Q4H PRN PRN Reason: shortness of breath or wheezing Last Admin: 05/26/22 03:19 Dose: 2 puff Documented By: KENNY Apixaban (Apixaban 5 Mg Tablet) 5 mg PO BID [facility] Last Admin: 05/30/22 09:40 Dose: 5 mg Documented By: SCAR Brimonidine Tartrate (Brimonidine Tartrate 0.2% Oph 5 Ml Bottle) 1 drop EYE- BOTH BID [facility] Last Admin: 05/30/22 09:48 Dose: 1 drop Documented By: SCAR Carvedilol (Carvedilol 12.5 Mg Tablet) 12.5 mg PO BID [facility]; Protocol Last Admin: 05/30/22 09:50 Dose: 12.5 mg Documented By: SCAR Albuterol Sulfate 2.5 mg/ (Ipratropium [place] 0.5 mg) 0 mg INHALE Q4H PRN PRN Reason: Wheezing Last Admin: 05/30/22 09:40 Dose: 2.5 each Documented By: TAYLOR Finasteride (Finasteride 5 Mg Tablet) 5 mg PO DAILY [facility] Last Admin: 05/30/22 09:39 Dose: 5 mg Documented By: SCAR Guaifenesin (Guaifenesin 100 Mg/5 Ml Liquid) 5 ml PO Q4H PRN PRN Reason: Cough Last Admin: 05/29/22 20:30 Dose: 5 ml Documented By: CLEMENT Meropenem 1 gm/ Sodium (Chloride) 100 mls @ 200 mls/hr IV Q8H [facility] Last Infusion: 05/30/22 10:19 Dose: 0 mls/hr Documented By: SCAR Latanoprost (Latanoprost 0.005 % Ophth [place] 2.5 Ml Drops) 1 drop EYE-BOTH BEDTIME [facility] Last Admin: 05/29/22 19:28 Dose: 1 drop Documented By: CLEMENT Melatonin (Melatonin 3 Mg Tablet) 3 mg PO BEDTIME PRN PRN Reason: Insomnia Last Admin: 05/29/22 20:31 Dose: 3 mg Documented By: CLEMENT Omeprazole (Omeprazole 40 Mg Capsule.Dr) 40 mg PO DAILY@0630 [facility] Last Admin: 05/30/22 06:16 Dose: 40 mg Documented By: ISAURA Ondansetron HCl (Ondansetron Hcl 4 Mg/2 Ml Vial) 4 mg IVPUSH Q6H PRN PRN Reason: Nausea Last Admin: 05/27/22 05:01 Dose: 4 mg Documented By: TEE Pharmacy Consult (Consult Rx Perform Med Rec) 1 each MISCELLANE ONCE PRN PRN Reason: Consult order Pravastatin Sodium (Pravastatin Sodium 10 Mg Tablet) 10 mg PO DAILY [facility] Last Admin: 05/30/22 09:40 Dose: 10 mg Documented By: SCAR Prednisone (Prednisone 5 Mg Tablet) 5 mg PO DAILY [facility] Last Admin: 05/30/22 09:40 Dose: 5 mg Documented By: SCAR Sacubitril/Valsartan (Sacubitril/Valsartan 1 Tab Tablet) 1 tab PO BID [facility]; Protocol Last Admin: 05/30/22 09:39 Dose: 1 tab Documented By: SCAR Sodium Chloride (0.9 % Sodium Chloride Flush 3 Ml Syringe) 3 ml IVFLUSH QSHIFT [facility] Last Admin: 05/30/22 07:14 Dose: Not Given Documented By: JASMIN Non-Admin Reason: See Note Tamsulosin HCl (Tamsulosin Hcl 0.4 Mg Capsule) 0.4 mg PO DAILY [facility] Last Admin: 05/30/22 09:40 Dose: 0.4 mg Documented By: SCAR Timolol Maleate (Timolol Maleate 0.5 % Oph [place] 5 Ml Drbtl) 1 drop EYE-BOTH BID [facility] Last Admin: 05/30/22 09:48 Dose: 1 drop Documented By: SCAR Labs 05/25/22 13:51 05/25/22 13:51 Assessment and Plan (1) Pneumonia: Status: Acute (2) Multifocal pneumonia: Status: Acute Plan 81-year-old male with history of bronchiectasis, COPD, not on home oxygen, HFpEF, hypertension, GERD, glaucoma, history of JESSA,? NICM, paroxysmal atrial fibrillation no longer on anticoagulation due to hematuria, and h ypercholesterolemia with recent admissions for COPD exacberation with acute hypoxic respiratory failure # Acute respiratory failure- secondary to pneumonia with underlying chronic bronchiectasi d/t JESSA -Continue supplemental O2 to maintain oximetry greater than 92% and wean off #multifocal pneumonia--started on Meropenem 05/26 continue, ID recommend 5 to 7 of Meropenem, D6 today, stop after tomorrow # COPD, no exacerbation, bronchodilators routinely # BPH with LUTS and chronic urinary retention -continue chronic Schwarz, -continue finasteride, tamsulosin #HFpEF- no acute exacerbation -Continue entresto, coreg #Non ischemic cardiomyopathy (NICM) -Continue carvedilol, entresto #glaucoma -continue home drops #Parox Afib- rate controlled -eliquis -continue carvedilol # hypertension -continue home meds DVT prophylaxis-eliquis Full code need for inaptent; multifocal pna, bronchiectasis and very ill appearing and needs IV Abx for 7 days ending tomorrow Time Spent With Patient Time: Total time managing care of this patient today ____ minutes. Quality Stroke Does the patient have a stroke diagnosis?: No VTE Prior VTE?: No VTE Risk Level:: Medical - moderate - high VTE Device Contraindication: Treatment Not Indicated VTE Drug Contraindication: N/A - Med Ordered
[2022-05-30] MEDS: guaiFENesin 100 MG/5 ML LIQUID PO ×2 (13:45→20:59)
[2022-05-30] MEDS: Melatonin 3 MG TABLET PO (21:00)
[2022-05-30] MEDS: Latanoprost 0.005 % Ophth Sol 2.5 ML DROPS 1 DROP EYE-BOTH (21:04)
[2022-05-31] VITALS (10 sets, daily range): BP systolic 104–147; BP diastolic 54–88; PULSE 68–100; RESP 17–19; TEMP 36.4–37.6; O2SAT 87–96
[2022-05-31] MEDS: 0.9 % Sodium Chloride Flush 3 ML SYRINGE IVFLUSH ×4 (00:35→20:32)
[2022-05-31] MEDS: Omeprazole 40 MG CAPSULE.DR PO (06:21)
[2022-05-31] MEDS: carvediloL 12.5 MG TABLET PO ×2 (07:56→20:32)
[2022-05-31] MEDS: Tamsulosin HCL 0.4 MG CAPSULE PO (07:56)
[2022-05-31] MEDS: Pravastatin Sodium 10 MG TABLET PO (07:57)
[2022-05-31] MEDS: Apixaban 5 MG TABLET PO ×2 (07:57→20:32)
[2022-05-31] MEDS: Finasteride 5 MG TABLET PO (07:57)
[2022-05-31] MEDS: predniSONE 5 MG TABLET PO (07:57)
[2022-05-31] MEDS: Sacubitril/Valsartan 24/26 1 TAB TABLET PO ×2 (07:57→20:32)
[2022-05-31] MEDS: Brimonidine Tartrate 0.2% Oph 5 ML BOTTLE 1 DROP EYE-BOTH (07:58)
[2022-05-31] MEDS: timoloL maleate 0.5 % Oph Sol 5 ML DRBTL 1 DROP EYE-BOTH (07:58)
[2022-05-31] MEDS: guaiFENesin 100 MG/5 ML LIQUID PO ×2 (11:54→20:56)
--- NOTE | 2022-05-31 14:08 | P.PNIM_ITS ---
Subjective Subjective Date of Service: 05/31/22 Interval History: f/u on pneumonia Review of Systems still sob coughing less with scant sputum, no sob Physical Exam Vital Signs: Vital Signs: Last Vital Signs Temp 97.6 F 05/31/22 08:00 Pulse 89 05/31/22 09:04 Resp 18 05/31/22 09:04 BP 116/60 05/31/22 08:00 Pulse Ox 96 05/31/22 08:00 O2 Del Method 05/31/22 08:00 O2 Flow Rate 3 05/31/22 08:00 Oxygen Flow Rate 2 05/25/22 17:09 BMI result Body Mass Index 23.3 Appearance: Alert.? Oriented X3.still sob.? cvs: rrr, [id number] . res: air entry seems slightly improving ,still dimished abd: no rebound or guarding ,nt, bs present. ext pulses present , no cyanosis . neuro: axo3 , nonfocal. Objective Data Active Medications Albuterol Sulfate (Albuterol Sulfate 90 Mcg 8 Gm Inhaler) 2 puff INHALE Q4H PRN PRN Reason: shortness of breath or wheezing Last Admin: 05/26/22 03:19 Dose: 2 puff Documented By: KENNY Apixaban (Apixaban 5 Mg Tablet) 5 mg PO BID [facility] Last Admin: 05/31/22 07:57 Dose: 5 mg Documented By: LEENA Brimonidine Tartrate (Brimonidine Tartrate 0.2% Oph 5 Ml Bottle) 1 drop EYE- BOTH BID [facility] Last Admin: 05/31/22 07:58 Dose: 1 drop Documented By: LEENA Carvedilol (Carvedilol 12.5 Mg Tablet) 12.5 mg PO BID [facility]; Protocol Last Admin: 05/31/22 07:56 Dose: 12.5 mg Documented By: LEENA Albuterol Sulfate 2.5 mg/ (Ipratropium [place] 0.5 mg) 0 mg INHALE Q4H PRN PRN Reason: Wheezing Last Admin: 05/31/22 09:03 Dose: 1 each Documented By: TYREE Finasteride (Finasteride 5 Mg Tablet) 5 mg PO DAILY [facility] Last Admin: 05/31/22 07:57 Dose: 5 mg Documented By: LEENA Guaifenesin (Guaifenesin 100 Mg/5 Ml Liquid) 5 ml PO Q4H PRN PRN Reason: Cough Last Admin: 05/31/22 11:54 Dose: 5 ml Documented By: LEENA Meropenem 1 gm/ Sodium (Chloride) 100 mls @ 200 mls/hr IV Q8H [facility] Last Infusion: 05/31/22 09:02 Dose: 0 mls/hr Documented By: LEENA Latanoprost (Latanoprost 0.005 % Ophth [place] 2.5 Ml Drops) 1 drop EYE-BOTH BEDTIME [facility] Last Admin: 05/30/22 21:04 Dose: 1 drop Documented By: YAO Melatonin (Melatonin 3 Mg Tablet) 3 mg PO BEDTIME PRN PRN Reason: Insomnia Last Admin: 05/30/22 21:00 Dose: 3 mg Documented By: YAO Omeprazole (Omeprazole 40 Mg Capsule.) 40 mg PO DAILY@0630 [facility] Last Admin: 05/31/22 06:21 Dose: 40 mg Documented By: ISAURA Ondansetron HCl (Ondansetron Hcl 4 Mg/2 Ml Vial) 4 mg IVPUSH Q6H PRN PRN Reason: Nausea Last Admin: 05/27/22 05:01 Dose: 4 mg Documented By: TEE Pharmacy Consult (Consult Rx Perform Med Rec) 1 each MISCELLANE ONCE PRN PRN Reason: Consult order Pravastatin Sodium (Pravastatin Sodium 10 Mg Tablet) 10 mg PO DAILY [facility] Last Admin: 05/31/22 07:57 Dose: 10 mg Documented By: LEENA Prednisone (Prednisone 5 Mg Tablet) 5 mg PO DAILY [facility] Last Admin: 05/31/22 07:57 Dose: 5 mg Documented By: LEENA Sacubitril/Valsartan (Sacubitril/Valsartan 1 Tab Tablet) 1 tab PO BID [facility]; Protocol Last Admin: 05/31/22 07:57 Dose: 1 tab Documented By: LEENA Sodium Chloride (0.9 % Sodium Chloride Flush 3 Ml Syringe) 3 ml IVFLUSH QSHIFT [facility] Last Admin: 05/31/22 07:57 Dose: 3 ml Documented By: LEENA Tamsulosin HCl (Tamsulosin Hcl 0.4 Mg Capsule) 0.4 mg PO DAILY [facility] Last Admin: 05/31/22 07:56 Dose: 0.4 mg Documented By: LEENA Timolol Maleate (Timolol Maleate 0.5 % Oph [place] 5 Ml Drbtl) 1 drop EYE-BOTH BID [facility] Last Admin: 05/31/22 07:58 Dose: 1 drop Documented By: LEENA Labs 05/25/22 13:51 05/25/22 13:51 Microbiology Microbiology Results: Microbiology 05/25/22 15:45 Blood Culture - Final Blood - Venous No growth after 5 days. 05/25/22 15:46 Blood Culture - Final Blood - Venous No growth after 5 days. Assessment and Plan (1) Pneumonia: Status: Acute (2) Multifocal pneumonia: Status: Acute Plan 81-year-old male with history of bronchiectasis, COPD, not on home oxygen, HFpEF, hypertension, GERD, glaucoma, history of JESSA,? NICM, paroxysmal atrial fibrillation no longer on anticoagulation due to hematuria, and hypercholesterolemia with recent admissions for COPD exacberation with acute hypoxic respiratory failure Acute respiratory failure- secondary to pneumonia with underlying chronic bronchiectasi d/t JESSA -Continue supplemental O2 to maintain oximetry greater than 92% and wean off multifocal pneumonia--started on Meropenem 05/26 continue, ID recommend 5 to 7 of Meropenem, D7 today continue , repiratory status still not optimal added pulm eval. COPD, no exacerbation, bronchodilators routinely BPH with LUTS and chronic urinary retention -continue chronic Schwarz, -continue finasteride, tamsulosin HFpEF- no acute exacerbation -Continue entresto, coreg Non ischemic cardiomyopathy (NICM) -Continue carvedilol, entresto glaucoma -continue home drops Parox Afib- rate controlled -eliquis -continue carvedilol hypertension -continue home meds DVT prophylaxis-eliquis Full code need for inaptent; multifocal pna, bronchiectasis and very ill appearing and needs IV Abx -repiratory status still not optimal. Time Spent With Patient Time: Total time managing care of this patient today ____ minutes. Quality Stroke Does the patient have a stroke diagnosis?: No VTE Prior VTE?: No VTE Risk Level:: Medical - moderate - high VTE Device Contraindication: Treatment Not Indicated VTE Drug Contraindication: N/A - Med Ordered
[2022-05-31] MEDS: Latanoprost 0.005 % Ophth Sol 2.5 ML DROPS 1 DROP EYE-BOTH (20:33)
[2022-05-31] MEDS: Melatonin 3 MG TABLET PO (23:03)
[2022-06-01] VITALS (9 sets, daily range): BP systolic 90–121; BP diastolic 51–59; PULSE 64–100; RESP 17–26; TEMP 36.6–37.2; O2SAT 91–96
[2022-06-01] MEDS: Omeprazole 40 MG CAPSULE.DR PO (06:39)
[2022-06-01] MEDS: Sacubitril/Valsartan 24/26 1 TAB TABLET PO ×2 (07:36→20:10)
[2022-06-01] MEDS: Apixaban 5 MG TABLET PO ×2 (07:36→20:10)
[2022-06-01] MEDS: Pravastatin Sodium 10 MG TABLET PO (07:36)
[2022-06-01] MEDS: predniSONE 5 MG TABLET PO (07:36)
[2022-06-01] MEDS: Finasteride 5 MG TABLET PO (07:36)
[2022-06-01] MEDS: carvediloL 12.5 MG TABLET PO ×2 (07:36→20:10)
[2022-06-01] MEDS: guaiFENesin 100 MG/5 ML LIQUID PO ×3 (07:36→21:38)
[2022-06-01] MEDS: Tamsulosin HCL 0.4 MG CAPSULE PO (07:36)
[2022-06-01] MEDS: 0.9 % Sodium Chloride Flush 3 ML SYRINGE IVFLUSH ×3 (07:37→23:36)
[2022-06-01] MEDS: timoloL maleate 0.5 % Oph Sol 5 ML DRBTL 1 DROP EYE-BOTH (07:37)
[2022-06-01] MEDS: Brimonidine Tartrate 0.2% Oph 5 ML BOTTLE 1 DROP EYE-BOTH (07:38)
--- NOTE | 2022-06-01 08:11 | PC.RT ---
pt has home oxygen at 2 liters
--- NOTE | 2022-06-01 10:11 | PM.CNPUL ---
History of Present Illness History of Present Illness Consult date: 06/01/22 Chief complaint: pneumonia Narrative: 81-year-old male with history of bronchiectasis, COPD, not on home oxygen, HFpEF, ESBL UTI, history of JESSA, and ICM, paroxysmal atrial fibrillation on eliquis, and hypercholesterolemia presented to the ED this morning with? shortness of breath and cough that has been ongoing for weeks, cough with sputum production? at time blood tinged. He reports no fever or chills but is? feels bery weak, especially with exertion.? He has chronic respiratory failure and is on home O2. CXR show multifocal pneumonia, WBC is 11.? He is treated with Meropenem and trobramycin by inhalation.?HE is doing better. Review of Systems Constitutional: Constitutional: Denies daytime sleepiness, Denies excessive sweating, Denies fatigue, Denies fever(s), Denies lethargy, Denies malaise, Denies night sweats, Denies snoring and Denies weight loss Eyes: Eyes: Denies blurry vision and Denies itchy eyes ENT: Denies nasal congestion, Denies post nasal drip, Denies sinus pain, Denies sinus pressure and Denies other ( Thrush) Cardiovascular: Cardiovascular: Denies chest pain, Denies pedal edema, Denies dyspnea, Denies orthopnea and Denies paroxysmal nocturnal dyspnea Respiratory: Respiratory: Reports chest congestion, Reports cough, Denies hemoptysis, Denies excessive phlegm production, Denies dyspnea, Denies snoring and Denies wheezing Gastrointestinal: Gastrointestinal: Denies abdominal pain and Denies heartburn Musculoskeletal: Musculoskeletal: Denies myalgias, Denies arthralgias and Denies joint swelling Integumentary/Breasts: Skin/Breast: Denies rash Neurologic: Denies memory loss and Denies seizure-like activity Psychiatric: Psychiatric: Denies abnormal sleep pattern, Denies anxiety and Denies memory loss Endocrine: Endocrine: Denies excessive sweating, Denies fatigue and Denies heat intolerance Hematologic/Lymphatic: Hematologic/Lymphatic: Denies easy bruising Allergic/Immunologic: Allergic/Immunologic: Denies itchy eyes, Denies seasonal rhinorrhea and Denies wheezing PMFSH Past Medical History Medical History Acute and chronic respiratory failure BPH loc w urin obs/LUTS Bronchiectasis Bronchitis Congestive heart failure COPD (chronic obstructive pulmonary disease) Dysuria ESBL (extended spectrum beta-lactamase) producing bacteria infection Essential hypertension GERD (gastroesophageal reflux disease) Glaucoma Hearing loss Hernia History of MAC infection Hypoxia Kidney stone on left side JESSA (mycobacterium avium-intracellulare) NICM (nonischemic cardiomyopathy) Paroxysmal atrial fibrillation Pure hypercholesterolemia Supplemental oxygen dependent Urinary retention Family History Family History Father No problems noted. Mother Medical history unknown Sister Diabetes Daughter In good health Son In good health Brother No problems noted. Family history: reviewed and not pertinent Surgical History Surgical History History of bronchoscopy History of colonoscopy History of cystoscopy History of lumbar surgery History of rectal polypectomy Social History Social History Household Members: None Housing: Apartment Do you presently have visiting nurse or other home services: No (RN REFERRAL for 2 hrs per day) Alcohol intake: former Patient Tobacco Use Status: Former Tobacco user Quit Date: 6 years ago Tobacco use type: Cigarette Smoked in Last 30 Days: No e-Cigarette/Vaping Use: Never Used Second Hand Smoke Exposure: No Use of substances other than those prescribed or required for medical reasons: No Currently Displaying Signs/Symptoms of Drug Intoxication Withdrawal: No Have you been hit, kicked, punched, or otherwise hurt by someone within the past year? If so, by whom?: No Do you feel safe in your current relationship?: No Current Relationship Is there a partner from a previous relationship who is making you feel unsafe now?: No Are you made to feel afraid or neglected: No Advance Directives: Yes Advance Directives on File: Yes Advance Directives Date on File: 07/12/21 Do you have thoughts of harming others: None Do you have a plan to hurt others: No Plan Recently lost weight without trying: No Eating poorly because of decreased appetite: No Nutrition Risks: No Nutritional Risk Poor oral hygiene: No service: No Current occupational status: disabled Cognitive needs: No Hearing needs: Yes Vision needs: Yes Meds Allergies Allergy/AdvReac Type Severity Reaction Status Date / Time Penicillins [PENICILLINS] Allergy Intermediate PASSED Verified 05/25/22 12:55 OUT trazodone Allergy Intermediate tremors Verified 05/25/22 12:55 Active Medications: Current Medications Albuterol Sulfate (Albuterol Sulfate 90 Mcg 8 Gm Inhaler) 2 puff INHALE Q4H PRN PRN Reason: shortness of breath or wheezing Last Admin: 05/26/22 03:19 Dose: 2 puff Apixaban (Apixaban 5 Mg Tablet) 5 mg PO BID [facility] Last Admin: 06/01/22 07:36 Dose: 5 mg Brimonidine Tartrate (Brimonidine Tartrate 0.2% Oph 5 Ml Bottle) 1 drop EYE-BOTH BID [facility] Last Admin: 06/01/22 07:38 Dose: 1 drop Carvedilol (Carvedilol 12.5 Mg Tablet) 12.5 mg PO BID [facility]; Protocol Last Admin: 06/01/22 07:36 Dose: 12.5 mg Albuterol Sulfate 2.5 mg/ (Ipratropium [place] 0.5 mg) 0 mg INHALE Q4H PRN PRN Reason: Wheezing Last Admin: 06/01/22 09:19 Dose: 1 each Finasteride (Finasteride 5 Mg Tablet) 5 mg PO DAILY [facility] Last Admin: 06/01/22 07:36 Dose: 5 mg Guaifenesin (Guaifenesin 100 Mg/5 Ml Liquid) 5 ml PO Q4H PRN PRN Reason: Cough Last Admin: 06/01/22 07:36 Dose: 5 ml Guaifenesin (Guaifenesin 100 Mg/5 Ml Liquid) 10 ml PO Q4H PRN PRN Reason: Cough Meropenem 1 gm/ Sodium (Chloride) 100 mls @ 200 mls/hr IV Q8H [facility] Last Admin: 06/01/22 07:37 Dose: 200 mls/hr Latanoprost (Latanoprost 0.005 % Ophth Thalia 2.5 Ml Drops) 1 drop EYE-BOTH BEDTIME [facility] Last Admin: 05/31/22 20:33 Dose: 1 drop Loratadine (Loratadine 10 Mg Tablet) 10 mg PO DAILY [facility] Melatonin (Melatonin 3 Mg Tablet) 3 mg PO BEDTIME PRN PRN Reason: Insomnia Last Admin: 05/31/22 23:03 Dose: 3 mg Omeprazole (Omeprazole 40 Mg Capsule.Dr) 40 mg PO DAILY@0630 [facility] Last Admin: 06/01/22 06:39 Dose: 40 mg Ondansetron HCl (Ondansetron Hcl 4 Mg/2 Ml Vial) 4 mg IVPUSH Q6H PRN PRN Reason: Nausea Last Admin: 05/27/22 05:01 Dose: 4 mg Pharmacy Consult (Consult Rx Perform Med Rec) 1 each MISCELLANE ONCE PRN PRN Reason: Consult order Pravastatin Sodium (Pravastatin Sodium 10 Mg Tablet) 10 mg PO DAILY [facility] Last Admin: 06/01/22 07:36 Dose: 10 mg Prednisone (Prednisone 5 Mg Tablet) 5 mg PO DAILY [facility] Last Admin: 06/01/22 07:36 Dose: 5 mg Sacubitril/Valsartan (Sacubitril/Valsartan 1 Tab Tablet) 1 tab PO BID [facility]; Protocol Last Admin: 06/01/22 07:36 Dose: 1 tab Sodium Chloride (0.9 % Sodium Chloride Flush 3 Ml Syringe) 3 ml IVFLUSH QSHIFT [facility] Last Admin: 06/01/22 07:37 Dose: 3 ml Tamsulosin HCl (Tamsulosin Hcl 0.4 Mg Capsule) 0.4 mg PO DAILY [facility] Last Admin: 06/01/22 07:36 Dose: 0.4 mg Timolol Maleate (Timolol Maleate 0.5 % Oph Thalia 5 Ml Drbtl) 1 drop EYE-BOTH BID [facility] Last Admin: 06/01/22 07:37 Dose: 1 drop Home Medications Medication Instructions Recorded Confirmed Last Taken Type brimonidine 0.2 %-timolol 0.5 % 1 drp ophthalmic (eye) BID 03/08/21 05/25/22 03/24/22 History eye drops (Combigan) travoprost 0.004 % eye drops 1 drp ophthalmic (eye) BEDTIME 03/08/21 05/25/22 03/24/22 History omeprazole 40 mg capsule,delayed 40 mg PO DAILY@0630 03/25/22 05/25/22 04/14/22 History release Physical Exam Vital Signs: Vital Signs: Last Vital Signs Temp 98.7 F 06/01/22 07:44 Pulse 67 06/01/22 09:21 Resp 18 06/01/22 09:21 BP 108/57 L 06/01/22 07:44 Pulse Ox 95 06/01/22 07:44 O2 Del Method Nasal Cannula 06/01/22 07:44 O2 Flow Rate 2 06/01/22 07:44 Oxygen Flow Rate 2 05/25/22 17:09 BMI result Body Mass Index 23.3 Appearance: Alert.? Oriented X3.still sob.? cvs: rrr, [id number] . res: air entry seems slightly improving ,still dimished abd: no rebound or guarding ,nt, bs present. ext pulses present , no cyanosis . neuro: axo3 , nonfocal. Results Laboratory Findings 05/25/22 13:51 05/25/22 13:51 Abnormal lab findings: Abnormal Labs 05/25/22 05/25/22 05/25/22 13:51 13:51 13:54 WBC 11.7 H RBC 4.35 L Hgb 11.0 L Hct 35.7 L MCH 25.3 L MCHC 30.8 L MPV 8.6 L Neut % (Auto) 86.9 H Lymph % (Auto) 3.8 L Lymph # (Auto) 0.5 L Abs Immat Gran (auto) 0.05 H Absolute Neuts (auto) 10.2 H ABG pO2 at Pt Temp ABG HCO3 VBG HCO3 29 H Carbon Dioxide 32 H Anion Gap 10 L Random Glucose 127 H Calcium 8.2 L Total Protein 6.3 L Albumin 3.2 L 05/26/22 06:00 WBC RBC Hgb Hct MCH MCHC MPV Neut % (Auto) Lymph % (Auto) Lymph # (Auto) Abs Immat Gran (auto) Absolute Neuts (auto) ABG pO2 at Pt Temp 79 L ABG HCO3 28 H VBG HCO3 Carbon Dioxide Anion Gap Random Glucose Calcium Total Protein Albumin Microbiology: Microbiology 05/25/22 15:45 Blood - Venous Blood Culture - Final No growth after 5 days. 05/25/22 15:46 Blood - Venous Blood Culture - Final No growth after 5 days. Assessment and Plan (1) Pneumonia: Status: Acute (2) Multifocal pneumonia: Status: Acute (3) COPD (chronic obstructive pulmonary disease): Status: Acute (4) Bronchiectasis: Status: Acute Plan Sputum culture Would treat with the Meropenem for 8-14 days. Would be reasonable to treat longer for a bronchiectasis exacerbation. F/U with outpt pulmonary Time Spent With Patient Time: Total time managing care of this patient today ____ minutes. Procedures Date of Service Date of Service: 06/01/22
[2022-06-01] MEDS: Loratadine 10 MG TABLET PO (10:33)
[2022-06-01 13:08] LABS: MRSA Nasal PCR NEGATIVE (Negative); SA Nasal PCR NEGATIVE (Negative)
--- NOTE | 2022-06-01 15:54 | HO.PM.IMPN ---
Subjective Subjective Date of Service: 06/01/22 Interval History: f/u on pneumonia Review of Systems still sob coughing less with scant sputum, no sob Physical Exam Vital Signs: Vital Signs: Last Vital Signs Temp 98.7 F 06/01/22 07:44 Pulse 68 06/01/22 14:52 Resp 18 06/01/22 14:52 BP 108/57 L 06/01/22 07:44 Pulse Ox 95 06/01/22 07:44 O2 Del Method Nasal Cannula 06/01/22 07:44 O2 Flow Rate 2 06/01/22 07:44 Oxygen Flow Rate 2 05/25/22 17:09 BMI result Body Mass Index 23.3 Appearance: Alert.? Oriented X3.still sob.? cvs: rrr, [id number] . res: air entry seems slightly improving ,still dimished abd: no rebound or guarding ,nt, bs present. ext pulses present , no cyanosis . neuro: axo3 , nonfocal. Objective Data Active Medications Albuterol Sulfate (Albuterol Sulfate 90 Mcg 8 Gm Inhaler) 2 puff INHALE Q4H PRN PRN Reason: shortness of breath or wheezing Last Admin: 05/26/22 03:19 Dose: 2 puff Documented By: KENNY Apixaban (Apixaban 5 Mg Tablet) 5 mg PO BID [facility] Last Admin: 06/01/22 07:36 Dose: 5 mg Documented By: LEENA Brimonidine Tartrate (Brimonidine Tartrate 0.2% Oph 5 Ml Bottle) 1 drop EYE-BOTH BID [facility] Last Admin: 06/01/22 07:38 Dose: 1 drop Documented By: LEENA Carvedilol (Carvedilol 12.5 Mg Tablet) 12.5 mg PO BID [facility]; Protocol Last Admin: 06/01/22 07:36 Dose: 12.5 mg Documented By: LEENA Albuterol Sulfate 2.5 mg/ (Ipratropium [place] 0.5 mg) 0 mg INHALE Q4H PRN PRN Reason: Wheezing Last Admin: 06/01/22 14:50 Dose: 1 each Documented By: TYREE Finasteride (Finasteride 5 Mg Tablet) 5 mg PO DAILY [facility] Last Admin: 06/01/22 07:36 Dose: 5 mg Documented By: LEENA Guaifenesin (Guaifenesin 100 Mg/5 Ml Liquid) 5 ml PO Q4H PRN PRN Reason: Cough Last Admin: 06/01/22 07:36 Dose: 5 ml Documented By: LEENA Guaifenesin (Guaifenesin 100 Mg/5 Ml Liquid) 10 ml PO Q4H PRN PRN Reason: Cough Meropenem 1 gm/ Sodium (Chloride) 100 mls @ 200 mls/hr IV Q8H [facility] Last Infusion: 06/01/22 10:11 Dose: 0 mls/hr Documented By: LEENA Latanoprost (Latanoprost 0.005 % Ophth [place] 2.5 Ml Drops) 1 drop EYE-BOTH BEDTIME [facility] Last Admin: 05/31/22 20:33 Dose: 1 drop Documented By: TEE Loratadine (Loratadine 10 Mg Tablet) 10 mg PO DAILY [facility] Last Admin: 06/01/22 10:33 Dose: 10 mg Documented By: LEENA Melatonin (Melatonin 3 Mg Tablet) 3 mg PO BEDTIME PRN PRN Reason: Insomnia Last Admin: 05/31/22 23:03 Dose: 3 mg Documented By: TEE Omeprazole (Omeprazole 40 Mg Capsule.Dr) 40 mg PO DAILY@0630 [facility] Last Admin: 06/01/22 06:39 Dose: 40 mg Documented By: TEE Comments: DOWNTIME Ondansetron HCl (Ondansetron Hcl 4 Mg/2 Ml Vial) 4 mg IVPUSH Q6H PRN PRN Reason: Nausea Last Admin: 05/27/22 05:01 Dose: 4 mg Documented By: TEE Pharmacy Consult (Consult Rx Perform Med Rec) 1 each MISCELLANE ONCE PRN PRN Reason: Consult order Pravastatin Sodium (Pravastatin Sodium 10 Mg Tablet) 10 mg PO DAILY [facility] Last Admin: 06/01/22 07:36 Dose: 10 mg Documented By: LEENA Prednisone (Prednisone 5 Mg Tablet) 5 mg PO DAILY [facility] Last Admin: 06/01/22 07:36 Dose: 5 mg Documented By: LEENA Sacubitril/Valsartan (Sacubitril/Valsartan 1 Tab Tablet) 1 tab PO BID [facility]; Protocol Last Admin: 06/01/22 07:36 Dose: 1 tab Documented By: LEENA Sodium Chloride (0.9 % Sodium Chloride Flush 3 Ml Syringe) 3 ml IVFLUSH QSHIFT [facility] Last Admin: 06/01/22 07:37 Dose: 3 ml Documented By: ELENA Tamsulosin HCl (Tamsulosin Hcl 0.4 Mg Capsule) 0.4 mg PO DAILY [facility] Last Admin: 06/01/22 07:36 Dose: 0.4 mg Documented By: LEENA Timolol Maleate (Timolol Maleate 0.5 % Oph [place] 5 Ml Drbtl) 1 drop EYE-BOTH BID [facility] Last Admin: 06/01/22 07:37 Dose: 1 drop Documented By: LEENA Labs 05/25/22 13:51 05/25/22 13:51 Labs: Laboratory Results - last 24 hr 06/01/22 11:33 Nasal Screen MRSA (PCR) NEGATIVE Nasal S. aureus Screen NEGATIVE Nasal MRSA/S.aureus Interp SEE NOTE Microbiology Microbiology Results: Microbiology 06/01/22 11:33 Gram Stain - Final Sputum - Expectorated Sputum Culture - Final Assessment and Plan (1) Multifocal pneumonia: Status: Acute (2) Supplemental oxygen dependent: Status: Acute (3) COPD (chronic obstructive pulmonary disease): Status: Acute Plan 81-year-old male with history of bronchiectasis, COPD, not on home oxygen, HFpEF, hypertension, GERD, glaucoma, history of JESSA,? NICM, paroxysmal atrial fibrillation no longer on anticoagulation due to hematuria, and hypercholesterolemia with recent admissions for COPD exacberation with acute hypoxic respiratory failure Acute respiratory failure- secondary to pneumonia with underlying chronic bronchiectasi d/t JESSA -Continue supplemental O2 to maintain oximetry greater than 92% and wean off multifocal pneumonia--started on Meropenem 05/26 continue,? ID recommend 5 to 7 of Meropenem,? D8 today continue , repiratory status still not optimal added pulm eval. ?COPD, no? exacerbation, bronchodilators routinely ?BPH with LUTS and chronic urinary retention -continue chronic Schwarz, -continue finasteride, tamsulosin HFpEF- no acute exacerbation -Continue entresto, coreg Non ischemic cardiomyopathy (NICM) -Continue carvedilol, entresto glaucoma -continue home drops Parox Afib- rate controlled -eliquis -continue carvedilol ?hypertension -continue home meds DVT prophylaxis-eliquis Full code need for inaptent; multifocal pna, bronchiectasis and very ill appearing and needs IV Abx -repiratory status still not optimal. Time Spent With Patient Time: Total time managing care of this patient today ____ minutes. Quality Stroke Does the patient have a stroke diagnosis?: No VTE Prior VTE?: No VTE Risk Level:: Medical - moderate - high VTE Device Contraindication: Treatment Not Indicated VTE Drug Contraindication: N/A - Med Ordered
[2022-06-01] MEDS: Acetaminophen 325 MG TABLET 650 MG PO (20:11)
[2022-06-01] MEDS: Latanoprost 0.005 % Ophth Sol 2.5 ML DROPS 1 DROP EYE-BOTH (20:22)
[2022-06-01] MEDS: Melatonin 3 MG TABLET PO (21:37)
[2022-06-02] VITALS (9 sets, daily range): BP systolic 92–130; BP diastolic 48–68; PULSE 70–107; RESP 17–28; TEMP 36.2–37.2; O2SAT 91–97
[2022-06-02] MEDS: Omeprazole 40 MG CAPSULE.DR PO (05:44)
[2022-06-02] MEDS: Acetaminophen 325 MG TABLET 650 MG PO ×2 (05:47→21:42)
[2022-06-02] MEDS: predniSONE 5 MG TABLET PO (09:39)
[2022-06-02] MEDS: Loratadine 10 MG TABLET PO (09:39)
[2022-06-02] MEDS: Finasteride 5 MG TABLET PO (09:39)
[2022-06-02] MEDS: Pravastatin Sodium 10 MG TABLET PO (09:39)
[2022-06-02] MEDS: Tamsulosin HCL 0.4 MG CAPSULE PO (09:40)
[2022-06-02] MEDS: 0.9 % Sodium Chloride Flush 3 ML SYRINGE IVFLUSH ×3 (09:40→21:44)
[2022-06-02] MEDS: Brimonidine Tartrate 0.2% Oph 5 ML BOTTLE 1 DROP EYE-BOTH ×2 (09:41→21:46)
[2022-06-02] MEDS: timoloL maleate 0.5 % Oph Sol 5 ML DRBTL 1 DROP EYE-BOTH ×2 (09:41→21:46)
--- NOTE | 2022-06-02 14:59 | HO.MIDLINE_ITS ---
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 Using ultrasound guidance, left brachial vein access was obtained on second attempt. A 20G X 10CM Non-PASV Midline was positioned. The procedure was performed in S272. Ultrasound was used to document vein patency and for needle entry. A formal ultrasound picture was recorded. Vascular Air Bag Buffer has released the line for use and it is currently dressed with a StatLock, Tegaderm, and CHG disc. Verification has been performed for blood return and line patency. (Procedure was explained to patient using site interpreter) Arm Circumference: 28 CM Equipment: BARD PowerGlide ST Midline Catheter Type: 20G X 10CM Non-PASV Midline Lot #: [id number]
--- NOTE | 2022-06-02 16:18 | P.PNIM_ITS ---
Subjective Subjective Date of Service: 06/03/22 Interval History: f/u on pneumonia Review of Systems still sob coughing less with scant sputum, no sob Physical Exam Vital Signs: Vital Signs: Last Vital Signs Temp 98.7 F 06/02/22 16:00 Pulse 90 06/02/22 16:00 Resp 24 H 06/02/22 16:00 BP 125/66 06/02/22 16:00 Pulse Ox 97 06/02/22 16:00 O2 Del Method Nasal Cannula 06/02/22 16:00 O2 Flow Rate 2 06/02/22 16:00 Oxygen Flow Rate 2 05/25/22 17:09 BMI result Body Mass Index 23.3 Appearance: Alert.? Oriented X3.still sob.? cvs: rrr, [id number] . res: air entry seems fair, [place] or wheezin abd: no rebound or guarding ,nt, bs present. ext pulses present , no cyanosis . neuro: axo3 , nonfocal. Objective Data Active Medications Acetaminophen (Acetaminophen 325 Mg Tablet) 650 mg PO Q8H PRN PRN Reason: Headache Last Admin: 06/02/22 05:47 Dose: 650 mg Documented By: TEE Albuterol Sulfate (Albuterol Sulfate 90 Mcg 8 Gm Inhaler) 2 puff INHALE Q4H PRN PRN Reason: shortness of breath or wheezing Last Admin: 05/26/22 03:19 Dose: 2 puff Documented By: KENNY Apixaban (Apixaban 5 Mg Tablet) 5 mg PO BID [facility] Last Admin: 06/02/22 09:20 Dose: Not Given Documented By: ROBERT Non-Admin Reason: hold for picc line placement Brimonidine Tartrate (Brimonidine Tartrate 0.2% Oph 5 Ml Bottle) 1 drop EYE-BOT H BID [facility] Last Admin: 06/02/22 09:41 Dose: 1 drop Documented By: ROBERT Carvedilol (Carvedilol 12.5 Mg Tablet) 12.5 mg PO BID [facility]; Protocol Last Admin: 06/02/22 09:40 Dose: Not Given Documented By: ROBERT Non-Admin Reason: bp low Albuterol Sulfate 2.5 mg/ (Ipratropium [place] 0.5 mg) 0 mg INHALE RQ4H WHILE AWAKE [facility] Last Admin: 06/02/22 12:13 Dose: 2.5 each Documented By: EBONI Heparin Sodium (Porcine) 50 (units/ Sodium Chloride 5 ml) 0 units IVFLUSH TID [facility] Finasteride (Finasteride 5 Mg Tablet) 5 mg PO DAILY [facility] Last Admin: 06/02/22 09:39 Dose: 5 mg Documented By: ROBERT Guaifenesin (Guaifenesin 100 Mg/5 Ml Liquid) 5 ml PO Q4H PRN PRN Reason: Cough Last Admin: 06/01/22 21:38 Dose: 5 ml Documented By: TEE Guaifenesin (Guaifenesin 100 Mg/5 Ml Liquid) 10 ml PO Q4H PRN PRN Reason: Cough Meropenem 1 gm/ Sodium (Chloride) 100 mls @ 200 mls/hr IV Q8H [facility] Last Admin: 06/02/22 09:40 Dose: 200 mls/hr Documented By: ROBERT Latanoprost (Latanoprost 0.005 % Ophth [place] 2.5 Ml Drops) 1 drop EYE-BOTH BEDTIME [facility] Last Admin: 06/01/22 20:22 Dose: 1 drop Documented By: TEE Loratadine (Loratadine 10 Mg Tablet) 10 mg PO DAILY [facility] Last Admin: 06/02/22 09:39 Dose: 10 mg Documented By: ROBERT Melatonin (Melatonin 3 Mg Tablet) 3 mg PO BEDTIME PRN PRN Reason: Insomnia Last Admin: 06/01/22 21:37 Dose: 3 mg Documented By: TEE Omeprazole (Omeprazole 40 Mg Capsule.) 40 mg PO DAILY@0630 [facility] Last Admin: 06/02/22 05:44 Dose: 40 mg Documented By: TEE Ondansetron HCl (Ondansetron Hcl 4 Mg/2 Ml Vial) 4 mg IVPUSH Q6H PRN PRN Reason: Nausea Last Admin: 05/27/22 05:01 Dose: 4 mg Documented By: TEE Pharmacy Consult (Consult Rx Perform Med Rec) 1 each MISCELLANE ONCE PRN PRN Reason: Consult order Pravastatin Sodium (Pravastatin Sodium 10 Mg Tablet) 10 mg PO DAILY [facility] Last Admin: 06/02/22 09:39 Dose: 10 mg Documented By: ROBERT Prednisone (Prednisone 5 Mg Tablet) 5 mg PO DAILY [facility] Last Admin: 06/02/22 09:39 Dose: 5 mg Documented By: ROBERT Sacubitril/Valsartan (Sacubitril/Valsartan 1 Tab Tablet) 1 tab PO BID [facility]; Protocol Last Admin: 06/02/22 09:43 Dose: Not Given Documented By: ROBERT Non-Admin Reason: held for low bp Sodium Chloride (0.9 % Sodium Chloride Flush 3 Ml Syringe) 3 ml IVFLUSH QSHIFT [facility] Last Admin: 06/02/22 09:40 Dose: 3 ml Documented By: ROBERT Tamsulosin HCl (Tamsulosin Hcl 0.4 Mg Capsule) 0.4 mg PO DAILY [facility] Last Admin: 06/02/22 09:40 Dose: 0.4 mg Documented By: ROBERT Timolol Maleate (Timolol Maleate 0.5 % Oph [place] 5 Ml Drbtl) 1 drop EYE-BOTH BID [facility] Last Admin: 06/02/22 09:41 Dose: 1 drop Documented By: ROBERT Labs 05/25/22 13:51 05/25/22 13:51 Microbiology Microbiology Results: Microbiology 06/01/22 11:33 Gram Stain - Final Sputum - Expectorated Sputum Culture - Final Assessment and Plan (1) Multifocal pneumonia: Status: Acute (2) Supplemental oxygen dependent: Status: Acute (3) COPD (chronic obstructive pulmonary disease): Status: Acute Plan 81-year-old male with history of bronchiectasis, COPD, not on home oxygen, HFpEF, hypertension, GERD, glaucoma, history of JESSA,? NICM, paroxysmal atrial fibrillation no longer on anticoagulation due to hematuria, and hypercholesterolemia with recent admissions for COPD exacberation with acute hypoxic respiratory failure Acute respiratory failure- secondary to pneumonia with underlying chronic bronchiectasi d/t JESSA -Continue supplemental O2 to maintain oximetry greater than 92% and wean off d/w respiratory-patient is maintaining good saturation on his home oxygen 2 L which he takes at home. multifocal pneumonia--started on Meropenem 05/26 continue,? ID recommend 5 to 7 of Meropenem,? D8 today continue , repiratory status still not optimal added pulm eval. ?COPD, no? exacerbation, bronchodilators routinely ?BPH with LUTS and chronic urinary retention -continue chronic Schwarz, -continue finasteride, tamsulosin HFpEF- no acute exacerbation -Continue entresto, coreg Non ischemic cardiomyopathy (NICM) -Continue carvedilol, entresto glaucoma -continue home drops Parox Afib- rate controlled -eliquis -continue carvedilol ?hypertension -continue home meds DVT prophylaxis-eliquis Full code need for inaptent; multifocal pna, bronchiectasis on needs IV Abx -awaitin midli ne and home antibiotics arragement. Time Spent With Patient Time: Total time managing care of this patient today ____ minutes. Quality Stroke Does the patient have a stroke diagnosis?: No VTE Prior VTE?: No VTE Risk Level:: Medical - moderate - high VTE Device Contraindication: Treatment Not Indicated VTE Drug Contraindication: N/A - Med Ordered
[2022-06-02] MEDS: Heparin Sodium,Porcine Flush 50 UNITS, 0.9 % Sodium Chloride Flush 5 ML IVFLUSH ×2 (17:15→21:43)
[2022-06-02] MEDS: guaiFENesin 100 MG/5 ML LIQUID PO (17:16)
[2022-06-02] MEDS: Melatonin 3 MG TABLET PO (21:43)
[2022-06-02] MEDS: Apixaban 5 MG TABLET PO (21:43)
[2022-06-02] MEDS: Latanoprost 0.005 % Ophth Sol 2.5 ML DROPS 1 DROP EYE-BOTH (21:46)
[2022-06-03] MEDS: guaiFENesin 100 MG/5 ML LIQUID PO ×2 (00:10→05:45)
--- NOTE | 2022-06-03 01:00 | PC.NURSE ---
Pt c/o L-hand pain, asking for pain meds. Previously received tylenol. MD notified and ordered castro oxycodone. Med given w/ good effect.
[2022-06-03] MEDS: oxyCODONE HCl Immed Release 5 MG TABLET PO (01:02)
[2022-06-03 03:23] VITALS: BP 110/55; PULSE 75; RESP 16; TEMP 35.8; O2SAT 93
[2022-06-03] MEDS: Omeprazole 40 MG CAPSULE.DR PO (05:45)
[2022-06-03 07:16] VITALS: BP 128/71; PULSE 91; RESP 16; TEMP 36.1; O2SAT 93
[2022-06-03] MEDS: Loratadine 10 MG TABLET PO (07:45)
[2022-06-03] MEDS: Pravastatin Sodium 10 MG TABLET PO (07:45)
[2022-06-03] MEDS: Apixaban 5 MG TABLET PO (07:45)
[2022-06-03] MEDS: Tamsulosin HCL 0.4 MG CAPSULE PO (07:46)
[2022-06-03] MEDS: predniSONE 5 MG TABLET PO (07:46)
[2022-06-03] MEDS: Finasteride 5 MG TABLET PO (07:46)
[2022-06-03] MEDS: 0.9 % Sodium Chloride Flush 3 ML SYRINGE IVFLUSH (07:46)
[2022-06-03] MEDS: Ertapenem Sodium 1 GM in 0.9 % Sodium Chloride 50 ML IV (07:46)
[2022-06-03] MEDS: timoloL maleate 0.5 % Oph Sol 5 ML DRBTL 1 DROP EYE-BOTH (07:47)
[2022-06-03] MEDS: Brimonidine Tartrate 0.2% Oph 5 ML BOTTLE 1 DROP EYE-BOTH (07:47)
[2022-06-03] MEDS: Heparin Sodium,Porcine Flush 50 UNITS, 0.9 % Sodium Chloride Flush 5 ML IVFLUSH ×2 (08:38→14:38)
--- NOTE | 2022-06-03 11:30 | P.DS_ITS ---
DS: Providers Provider Date of Service: 06/03/22 Date of admission: 05/25/22 16:36 Date of discharge: 06/03/22 Primary care physician: Olga Calzada MD Consults: 05/25/22 16:02 Consult to Infectious Diseases Routine Consulting Provider: [facility] [place] Infectious Disease Reason for consultation: recurrent bronchiectasis Has provider been notified: No 05/31/22 14:13 Consult to Pulmonology Routine Consulting Provider: [facility] [place] Pulmonology Services Reason for consultation: CATARINA/known to pulm service Has provider been notified: No DS: Diagnosis Discharge Diagnosis (1) Multifocal pneumonia: Status: Acute (2) Supplemental oxygen dependent: Status: Acute (3) COPD (chronic obstructive pulmonary disease): Status: Acute DS: Summary Hospital Course Hospital Course: 81-year-old male with history of bronchiectasis, COPD, not on home oxygen, HFpEF, hypertension, GERD, glaucoma, history of CATARINA, and ICM, paroxysmal atrial fibrillation on eliquis, and hypercholesterolemia presented to the ED this morning with? shortness of breath and cough that has been ongoing for weeks, cough with sputum production? at time blood tinged. He reports no fever or chills but is? feels bery weak, especially with exertion.? He has chronic respiratory failure and is on home O2. CXR show multifocal pneumonia, WBC is 11.? He is treated with Meropenem and trobramycin by inhalation.? hospital course: Acute hypoxemic on chronic respiratory failure(secondary to COPD, chronic bronchiectasis /catarina, also has pneumonia ): Patient was started on antibiotics, oxygen support and seen by pulmonary: Recommended continue antibiotics until . Shortness of breath is much better , patient is going to go home with p.o. antibiotics and continue home COPD medications as well as oxygen. Patient is to follow up outpatient with Pulmonary. plan: complete antibiotics course.continue home oxygen follow up with pcp and pulmonary outpatient. Above management discussed with the patient in detail length she understand and in agreement with the above plan, time spent 50 minutes and 50% time spent on counseling. Time Spent with Patient Time attestation: Total time managing care of this patient today ____ minutes. Discharge coordination time: Greater than 30 minutes Quality: Safe Use of Opioids Does Pt have an Active Cancer Diagnosis on the Problem List?: No Quality: Stroke Does the patient have a stroke diagnosis?: No Physical Exam Vital Signs: Vital Signs: Last Vital Signs Temp 96.9 F 06/03/22 07:16 Pulse 91 06/03/22 07:16 Resp 16 06/03/22 07:16 BP 128/71 06/03/22 07:16 Pulse Ox 93 06/03/22 07:16 O2 Del Method Nasal Cannula 06/03/22 07:16 O2 Flow Rate 2 06/03/22 07:16 Oxygen Flow Rate 2 05/25/22 17:09 BMI result Body Mass Index 23.3 Appearance: Alert.? Oriented X3.still sob.? cvs: rrr, [id number] . res: air entry fair ,no rales or wheezing abd: no rebound or guarding ,nt, bs present. ext pulses present , no cyanosis . neuro: axo3 , nonfocal. DS: Data Data Completed and Pending Completed studies during hospitalization [Text1]: Procedures Insertion of Infusion Device into Right Cephalic Vein, Percutaneous Approach (12/07/21) Insertion of Infusion Device into Superior Vena Cava, Percutaneous Approach (12/07/21) Ultrasonography of Superior Vena Cava, Guidance (12/07/21) Imaging Chest x-ray: Radiologist's impression: ITS Impressions Chest X-Ray 05/25/22 14:23 IMPRESSION: Multifocal airspace opacities, appearing somewhat worsened at the left base when compared to prior. This is suggestive of a chronic process with superimposed infectious or inflammatory disease at the left base.. Chest X-Ray 05/26/22 06:08 IMPRESSION: * No significant interval change. * Stable bilateral linear and patchy opacities, varicoid and cystic bronchiectatic changes. Discharge Plan Discharge Anticipated Discharge Date/Time: 06/03/22 11:22 Patient Disposition: Home Health Service Discharge Diagnosis: pneumonia Referrals: Arnie HUFFMAN [Outside] - 1 Week Olga North MD [Primary Care Provider] - 1 Week Discharge Medications: New loratadine 10 mg Tablet 10 mg PO DAILY Qty: 10 0RF ertapenem 1 gram recon soln 1 g IM DAILY Qty: 4 0RF Rx Instructions: continue ertapenem (end date 06/07/22). Continued Entresto 24-26 mg tablet 1 tab PO BID 90 Days Qty: 180 3RF lovastatin 10 mg tablet 10 mg PO DAILY 90 Days Qty: 90 3RF (DME) walker Misc See Rx Instructions .Route Qty: 1 0RF Patient Comments: Pt states doesnot use Rx Instructions: with seat and wheels albuterol sulfate 90 mcg/actuation HFA aerosol inhaler 2 puff inhalation Q4H PRN (Reason: shortness of breath or wheezing) Qty: 8.5 4RF tamsulosin 0.4 mg capsule 0.4 mg PO DAILY Qty: 30 0RF Eliquis 5 mg tablet 5 mg PO BID 90 Days Qty: 180 1RF carvedilol 12.5 mg tablet 12.5 mg PO BID Qty: 60 0RF Protocol: Hold for SBP/HR < HOLD for SBP < : 90 HOLD for HR < : 60 docusate sodium 100 mg capsule 100 mg PO BID Qty: 60 0RF travoprost 0.004 % drops 1 drp ophthalmic (eye) BEDTIME Rx Instructions: instill 1 drop into both eyes brimonidine-timolol [Combigan] 0.2-0.5 % drops 1 drp ophthalmic (eye) BID omeprazole 40 mg capsule,delayed release(DR/EC) 40 mg PO DAILY@0630 finasteride [Proscar] 5 mg tablet 5 mg PO DAILY 90 Days Qty: 90 3RF prednisone 5 mg tablet 5 mg PO DAILY 30 Days Qty: 30 6RF Discontinued levofloxacin 750 mg tablet 750 mg PO DAILY 10 Days Qty: 10 0RF Discharge Orders: Discharge Order (Routine); Ordered 06/03/22 Ordered By: Marnie Huang Diet: Advance to usual diet Activity on Discharge: As tolerated Stand Alone Forms: Patient Portal Discharge page Care Plan Goals: patient admitted for sob-(secondary to COPD, chronic bronchiectasis /catarina, also has pneumonia ): Patient was started on antibiotics, oxygen support and seen by pulmonary: Recommended continue antibiotics until . Shortness of breath is much better than patient came with.continue home oxygen. Patient is to follow up outpatient with Pulmonary. Health Concerns: As above. Plan of Treatment: As above. Assessment: As above. Patient Instructions: Pneumonia (DC)
[2022-06-03 11:40] VITALS: PULSE 91; RESP 16; O2SAT 93
--- NOTE | 2022-06-03 11:42 | MHC.CM.PN ---
PT WILL DC HOME TODAY WITH [facility] FOR DELIVERY OF MEDICATION AND SUPPLIES THEY HAVE CONFIRMED THEY WILL DELIVER TODAY ERICK WILL SEE PT TOMORROW FOR HIS FIRST HOME DOSE FAMILY WILL TRANSPORT
--- NOTE | 2022-06-03 11:45 | W.MHC.F2F ---
Service Date Service Date: 06/03/22 Encounter Date of encounter: 06/03/22 Reasons for Services Signs and symptoms assessed: PNEUMONIA -sob ,cough ,fevers Reason for residential: medication management, medication treatment and teach disease management MD Overseeing Care: Olga Calzada Homebound: Leaving the home is medically contraindicated at this time without the asist of a device and/or another person due th the listed conditions above and below. Reason homebound: weakness related to hospital stay Homebound supporting statement: Patient generally weak is has multiple comorbidities including bronchiectasis, pneumonia, generalized weak need help to go to appointments as well as IV antibiotics . Certification: Based on the above findings, I certify that this patient is confined to the home and needs intermittent residential care, physical therapy and/or speech therapy, or continues to need occupational therapy. The patient is under my care, and I have initiated the establishment of the plan of care. The patient will be followed by a physician who will periodically review the plan of care. Time Spent With Patient Time: Total time managing care of this patient today ____ minutes.
[2022-06-03 15:33] VITALS: PULSE 93; RESP 18; O2SAT 95
== END 2022-06-03 15:55 | disposition home health service (06) | DRG 177 ==
LOC: HO.ED 16:52 → HO.EDOVER 17:07 → HO.S3 17:09
PROVIDERS: Hospitalist; Physician Assistant Medical; Student in an Organized Health Care Education/Training Program; Admitting Provider Internal Medicine; Emergency Provider Emergency Medicine; PCP Internal Medicine; Visit Provider Internal Medicine
DX: A31.0 Pulmonary mycobacterial infection (principal); J96.01 Acute respiratory failure with hypoxia; I42.8 Other cardiomyopathies; I50.32 Chronic diastolic (congestive) heart failure; J47.0 Bronchiectasis with acute lower respiratory infection; N40.1 Benign prostatic hyperplasia with lower urinary tract symptoms; J18.9 Pneumonia, unspecified organism; R33.8 Other retention of urine; I11.0 Hypertensive heart disease with heart failure; I48.0 Paroxysmal atrial fibrillation; E78.00 Pure hypercholesterolemia, unspecified; H40.9 Unspecified glaucoma; Z20.822 Contact with and (suspected) exposure to COVID-19; Z87.891 Personal history of nicotine dependence; Z88.0 Allergy status to penicillin; Z88.8 Allergy status to other drugs, medicaments and biological substances; Z79.01 Long term (current) use of anticoagulants; Z79.52 Long term (current) use of systemic steroids; Z79.899 Other long term (current) drug therapy
CPT/HCPCS: 36415; 36573; 36600; 71045; 71046; 80053; 82803; 83735; 84484; 85025; 87040; 87070; 87205; 87635; 87640; 87641; 93005; 94640; 97162; 99285; C1751; J1335; J1642; J2185; J2405; J3260

== ENCOUNTER → 2022-06-07 14:18 | Outpatient (BNVA) | payer MEDICARE, MEDICAID, SELFPAY | PROVIDERS: PCP Internal Medicine; Visit Provider Internal Medicine ==

== ENCOUNTER 2022-06-10 01:38 | Inpatient (IN) | payer MEDICARE, MEDICAID, SELFPAY ==
[2022-06-10] VITALS (14 sets, daily range): BP systolic 88–138; BP diastolic 59–73; PULSE 75–94; RESP 15–20; TEMP 36.1–36.8; O2SAT 93–100; BMI 25.1
--- NOTE | ~2022-06-10 | CT_ITS ---
EXAMINATION: CT ANGIOGRAM OF THE CHEST WITH AND WITHOUT CONTRAST (CT PULMONARY ANGIOGRAM FOR PE) CLINICAL INFORMATION: Reason for Exam sob with elevated d dimer COMPARISON: 04/14/2022 TECHNIQUE: Prior to contrast administration, noncontrast localization images were obtained. Subsequently, multidetector volumetric imaging was performed from the thoracic inlet to below the diaphragms following the administration of 85 mL Omnipaque 350 intravenous contrast with repeat bolus administration of 65 mL Omnipaque 350 intravenous contrast. No contrast reaction reported Sagittal, coronal, and MIP oblique sagittal reformatted images were obtained on the CT workstation, uploaded to PACS, and reviewed. This CT examination was performed using dose optimization techniques as appropriate, variously including the following: *Automated exposure control *Adjustment of mA and/or kV according to patient size (this includes techniques or standardized protocols for targeted exams where dose is matched to indication/reason for exam; i.e. extremities or head) *Use of iterative reconstruction technique Total exam dose-length product 560 mGy-cm FINDINGS: QUALITY OF STUDY/CONTRAST BOLUS: Suboptimal. PULMONARY ARTERIES: No central or segmental pulmonary emboli. THORACIC AORTA: No aneurysm. LUNG: Severe extensive chronic lung disease redemonstrated with diffuse varicoid and cystic bronchiectasis, and extensive endobronchial secretions throughout both lungs, with associated peribronchial opacities, and tree-in-bud nodularity. There are bilateral waxing and waning nodular opacities superimposed. On the current exam, there is a more rounded opacity in the right upper lobe (see arnold image) which appears to represent fluid filling a cystic lesion ectatic bronchus within the right upper lobe when correlated with the prior exam. A nodule in the right lower lobe on the prior exam (series 7, image 386) has resolved. PLEURA: No pleural effusion or pneumothorax. MEDIASTINUM: Normal heart size. No pericardial effusion. No hilar or mediastinal lymphadenopathy. No evidence of septal bowing or right heart strain. CORONARY ARTERY CALCIFICATION: Present. CHEST WALL/AXILLA: No axillary or internal mammary lymphadenopathy. OSSEOUS STRUCTURES: No acute or suspicious osseous abnormality. UPPER ABDOMEN: Unremarkable. CT/CT angio chest PE protocol IMPRESSION: * No evidence of pulmonary embolism. * Severe chronic lung disease with diffuse varicoid and cystic bronchiectasis, extensive endobronchial secretions, and tree-in-bud nodularity. * Waxing and waning nodular opacities superimposed on the chronic lung disease, likely infectious/inflammatory in etiology VTE: negative
--- NOTE | ~2022-06-10 | XR_ITS ---
EXAMINATION: XR CHEST CLINICAL INFORMATION: Shortness of breath COMPARISON: Multiple priors, most recently 05/26/2022 TECHNIQUE: Frontal view of the chest was obtained. FINDINGS: Diffuse linear reticular patchy opacities redemonstrated throughout both lungs, with diffuse varicoid and cystic bronchiectatic changes, the latter being most pronounced in the right upper lobe. Superimposed patchy opacities present in the right upper lobe along, similar in severity to the prior exam.. Heart size and pulmonary vascularity within normal limits no pleural effusion or pneumothorax. No acute osseous abnormalities. XR/XR chest 1V IMPRESSION: * No significant interval change. * Stable bilateral linear and patchy opacities, varicoid and cystic bronchiectatic changes.
--- NOTE | 2022-06-10 02:14 | ECG_ITS ---
Test Reason : SOB Blood Pressure : / mmHG Vent. Rate : 094 BPM Atrial Rate : 094 BPM P-R Int : 130 ms QRS Dur : 128 ms QT Int : 382 ms P-R-T Axes : 065 -35 012 degrees QTc Int : 477 ms Normal sinus rhythm Left axis deviation Right bundle branch block Abnormal ECG When compared with ECG of 25-MAY-2022 12:53, No significant change was found Referred By: Imelda Beltran Electronically Signed By:BEATRIS PERALTA
--- NOTE | 2022-06-10 02:18 | PC.NURSE ---
pt placed on 2L NC at 96% O2Sat a&o coughing up sputum
[2022-06-10 02:41] LABS: Basophils Percent Auto 0.3 % (0-2); Eosinophils Absolute Auto 0.5 X10*3/uL (0.0-0.4); Eosinophils Percent Auto 3.6 % (0-4); Hematocrit 32.3 % (42.0-52.0); Hemoglobin 9.8 g/dl (14.0-18.0); Imm Gran Abs Auto 0.12 X10*3/uL (0.00-0.03); Lymphocytes Absolute Auto 0.6 X10*3/uL (1.2-4.9); Lymphocytes Percent Auto 5.1 % (20-40); MANUAL DIFF FLAG NO; Mean Corpuscular HGB Conc 30.3 g/dl (31.0-36.0); Mean Corpuscular Hemoglobin 24.2 pg (27.0-33.0); Mean Corpuscular Volume 79.8 fL (80.0-98.0); Mean Platelet Volume 8.5 fL (9.4-12.4); Monocytes Absolute Auto 1.2 X10*3/uL (0.1-1.2); Monocytes Percent Auto 9.4 % (2-11); Neutrophils Absolute Auto 10.1 x10*3/uL (2.0-8.3); Neutrophils Percent Auto 80.6 % (45-73); Platelet Count 342 X10*3/uL (160-400); Red Blood Count 4.05 X10*6/uL (4.60-5.80); Red Cell Distribution Width 15.2 % (11.0-16.0); White Blood Count 12.5 X10*3/uL (4.8-10.8)
[2022-06-10 02:50] LABS: D Dimer High Sensitivity 482 NG/ML
[2022-06-10 03:02] LABS: B Type Natriuretic Peptide 20 pg/mL (<100); Troponin-I High Sensitivity 4.3 ng/L (<3.5-35.0)
--- NOTE | 2022-06-10 03:02 | ED.SOB ---
HPI - SOB/Dyspnea General Chief Complaint: Dyspnea Stated Complaint: SOB Time Seen by Provider: 06/10/22 02:13 Source: patient, EMS and automotive [employer] interpreter Mode of arrival: EMS Limitations: no limitations History of Present Illness HPI Narrative: 81-year-old male came in for evaluation of shortness of breath, coughing for 3 days. Patient declined CP, mild lower extremity swelling, no recent travel, no history of DVT or PE, no fever, no chills, no sick contacts. Related Data Home Medications Medication Instructions Recorded Confirmed brimonidine 0.2 %-timolol 0.5 % 1 drp ophthalmic (eye) BID 03/08/21 05/25/22 eye drops (Combigan) travoprost 0.004 % eye drops 1 drp ophthalmic (eye) BEDTIME 03/08/21 05/25/22 omeprazole 40 mg capsule,delayed 40 mg PO DAILY@0630 03/25/22 05/25/22 release Previous Rx's Medication Instructions Recorded sacubitril 24 mg-valsartan 26 mg 1 tab PO BID 90 days #180 tabs 07/19/21 tablet (Entresto) lovastatin 10 mg tablet 10 mg PO DAILY 90 days #90 tabs 11/08/21 finasteride 5 mg tablet (Proscar) 5 mg PO DAILY 90 days #90 tabs 01/06/22 walker #1 ea 03/20/22 albuterol sulfate 90 mcg/actuation 2 puff inhalation Q4H PRN 04/12/22 aerosol inhaler shortness of breath or wheezing #8.5 grams tamsulosin 0.4 mg capsule 0.4 mg PO DAILY #30 caps 04/26/22 apixaban 5 mg tablet (Eliquis) 5 mg PO BID 90 days #180 tabs 05/11/22 carvedilol 12.5 mg tablet 12.5 mg PO BID #60 tabs 05/15/22 prednisone 5 mg tablet 5 mg PO DAILY 30 days #30 tabs 05/18/22 docusate sodium 100 mg capsule 100 mg PO BID #60 caps 05/25/22 ertapenem 1 gram solution for 1 g IM DAILY #4 ea 06/03/22 injection loratadine 10 mg tablet 10 mg PO DAILY #10 tabs 06/03/22 ipratropium 0.5 mg-albuterol 3 mg 3 ml inhalation QID #120 ea 06/05/22 (2.5 mg base)/3 mL nebulization soln bumetanide 1 mg tablet 1 mg PO DAILY 30 days #30 tabs 06/09/22 Allergies Allergy/AdvReac Type Severity Reaction Status Date / Time Penicillins [PENICILLINS] Allergy Intermediate PASSED Verified 05/25/22 12:55 OUT trazodone Allergy Intermediate tremors Verified 05/25/22 12:55 Review of Systems Review of Systems: All other systems are reviewed and are negative Constitutional: Reports as per HPI and Reports no additional constitutional complaints Eyes: Reports as per HPI and Reports no additional eye complaints Reports system reviewed and no additional complaints, except as documented Cardiovascular: Reports as per HPI and Reports no additional cardiovascular complaints Respiratory: Reports as per HPI and Reports no additional respiratory complaints Gastrointestinal: Reports as per HPI and Reports no additional gastrointestinal complaints Genitourinary: Reports no additional female genitourinary complaints Musculoskeletal: Reports no additional musculoskeletal complaints Skin/Breast: Reports system reviewed and no additional complaints, except as docu Psychiatric: Reports no additional psychiatric complaints Endocrine: Reports no additional endocrine complaints Hematologic/Lymphatic: Reports no additional hematologic/lymphatic complaints Allergic/Immunologic: Reports no additional allergic/immunologic complaints Reports system reviewed and no additional complaints, except as documented and Reports Abnormal speech present PMFSH Past Medical History Medical History Acute and chronic respiratory failure BPH loc w urin obs/LUTS Bronchiectasis Bronchitis Congestive heart failure COPD (chronic obstructive pulmonary disease) Dysuria ESBL (extended spectrum beta-lactamase) producing bacteria infection Essential hypertension GERD (gastroesophageal reflux disease) Glaucoma Hearing loss Hernia History of MAC infection Hypoxia Kidney stone on left side JESSA (mycobacterium avium-intracellulare) NICM (nonischemic cardiomyopathy) Paroxysmal atrial fibrillation Pure hypercholesterolemia Supplemental oxygen dependent Urinary retention Surgical History History of bronchoscopy History of colonoscopy History of cystoscopy History of lumbar surgery History of rectal polypectomy Family History Family History Father No problems noted. Mother Medical history unknown Sister Diabetes Daughter In good health Son In good health Brother No problems noted. Social History Social History Household Members: None Housing: Apartment Do you presently have visiting nurse or other home services: No ([employer] for 2 hrs per day) Alcohol intake: never Patient Tobacco Use Status: Former Tobacco user Quit Date: 6 years ago Tobacco use type: Cigarette Smoked in Last 30 Days: No e-Cigarette/Vaping Use: Never Used Second Hand Smoke Exposure: No Use of substances other than those prescribed or required for medical reasons: No Advance Directives: Yes Advance Directives on File: Yes Advance Directives Date on File: 07/12/21 service: No Current occupational status: disabled Cognitive needs: No Hearing needs: Yes Vision needs: Yes Physical Exam Vital Signs: Vital Signs: Last Vital Signs Temp 98.2 F 06/10/22 05:45 Pulse 86 06/10/22 05:45 Resp 16 06/10/22 05:45 BP 105/63 06/10/22 05:45 Pulse Ox 95 06/10/22 05:45 O2 Del Method Nasal Cannula 06/10/22 05:45 O2 Flow Rate 2 06/10/22 05:45 Oxygen Flow Rate 7 06/10/22 01:43 BMI result Body Mass Index 25.1 Vital signs have been reviewed as appeared to be correct. Blood pressure normal. Heart rate normal. Respiration rate normal. Temperature normal. Oxygen saturation normal. Appearance: Alert. Oriented X3. No acute distress. Head: Normal external exam. Normocephalic. Atraumatic. No Mckeon signs noted. No raccoon eyes noted Eyes: PERRLA. EOMI. Conjunctiva and sclera normal. Eyelids normal. ENT: TM's Normal. Pharynx normal. Uvula midline. Moist mucous membranes. No trismus noted. No drooling noted. No muffled voice noted. Neck: Normal inspection. Neck supple. FROM. No adenopathy. Thyroid Normal. No meningeal signs. No neck mass noted. CVS: Normal heart rate and rhythm. Heart sound normal. No murmurs noted. Pulses normal throughout. Respiratory: No respiratory distress. Painless inspiration. Breath sounds normal. No wheezes/rales/rhonchi noted. Chest nontender. No accessory muscle usage noted or decreased air movement noted. Abdomen: Soft and nontender. Bowel sounds normal in all 4 quadrants. No distention noted. No organomegaly noted. No visible injury noted. Back: No CVA tenderness. Full range of motion noted. Skin: Skin warm and dry. Normal skin color. Normal skin turgor. No rashes/lesions/lacerations noted. Extremities: No lower extremity edema. Extremities exhibit normal range of motion. Extremities nontender. Neuro: Oriented X 3. Cranial nerve exam: II-XII are grossly intact No motor deficit. No sensory deficit. Reflexes normal. Course Reevaluation(s) Reevaluation #1: Still complaining of SOB, CTA showed no PE, will admit for more bronchodilator administration. Time: 07:15 Medications Administered Discontinued Medications Generic Name Dose Route Start Last Admin Trade Name Freq PRN Reason Stop Dose Admin Albuterol Sulfate 7.5 mg 06/10/22 04:11 06/10/22 04:26 Albuterol Sulfate (0.083%) 2.5 Mg/3 Ml Vial.Neb INHALE 06/10/22 04:12 7.5 mg ONCE ONE Administration Guaifenesin/Codeine Phosphate 10 ml 06/10/22 04:16 06/10/22 04:51 Guaifen/Codeine Sf 200/20/10ml 10 Ml Liquid PO 06/10/22 04:17 10 ml ONCE ONE Administration Iohexol 85 ml 06/10/22 04:03 06/10/22 04:04 Iohexol 350 Mg/Ml 100 Ml Infus..Btl IV 06/10/22 04:04 85 ml ONCE ONE Administration Iohexol 65 ml 06/10/22 04:04 06/10/22 04:05 Iohexol 350 Mg/Ml 100 Ml Infus..Btl IV 06/10/22 04:05 65 ml ONCE ONE Administration Prednisone 40 mg 06/10/22 04:11 06/10/22 04:51 Prednisone 20 Mg Tablet PO 06/10/22 04:12 40 mg ONCE ONE Administration Medical Decision Making Differential Diagnosis Differential Diagnoses: The differential diagnosis associated with the presentation includes (COPD exacerbation, pulmonary embolism, pneumonia, upper respiratory infection.) Admission/Observation Consideration of admission/observation: Escalation of care including admission/observation considered Consult Healthcare Provider Management of the patient was discussed with: Hospitalist (John Paul) Lab Data MDM Lab Attestation statement: I reviewed the patient's lab results. 06/10/22 02:36 06/10/22 02:36 Labs: Lab Results 06/10/22 06/10/22 06/10/22 Range/Units 02:36 02:36 02:36 WBC 12.5 H (4.8-10.8) X10*3/uL RBC 4.05 L (4.60-5.80) X10*6/uL Hgb 9.8 L (14.0-18.0) g/dl Hct 32.3 L (42.0-52.0) % MCV 79.8 L (80.0-98.0) fL MCH 24.2 L (27.0-33.0) pg MCHC 30.3 L (31.0-36.0) g/dl RDW 15.2 (11.0-16.0) % Plt Count 342 D (160-400) X10*3/uL MPV 8.5 L (9.4-12.4) fL Immature Gran % (Auto) 1.0 H (0.0-0.4) % Neut % (Auto) 80.6 H (45-73) % Lymph % (Auto) 5.1 L (20-40) % [place] % (Auto) 9.4 (2-11) % Eos % (Auto) 3.6 (0-4) % Baso % (Auto) 0.3 (0-2) % Lymph # (Auto) 0.6 L (1.2-4.9) X10*3/uL [place] # (Auto) 1.2 (0.1-1.2) X10*3/uL Eos # (Auto) 0.5 H (0.0-0.4) X10*3/uL Baso # (Auto) 0.0 (0.0-0.2) X10*3/uL Abs Immat Gran (auto) 0.12 H (0.00-0.03) X10*3/uL Absolute Neuts (auto) 10.1 H (2.0-8.3) x10*3/uL Absolute Nucleated RBC 0.000 (0.0-0.012) X10*3/uL Nucleated RBC % (auto) 0.0 (0.0-0.2) /100WBC D-Dimer High Sensitivty NG/ML Sodium 137 (135-145) mmol/L Potassium 4.2 (3.3-5.1) mmol/L Chloride 101 (96-108) mmol/L Carbon Dioxide 29 (22-29) mmol/L Anion Gap 11 L (12-20) BUN 9 (9-16) mg/dL Creatinine 0.69 (0.5-1.4) mg/dL Estim Creat Clear Calc 78.3 Estimated GFR > 60 Random Glucose 128 H (60-115) mg/dL Calcium 8.2 L (8.4-10.2) mg/dL Total Bilirubin 0.3 (0.0-1.0) mg/dL Direct Bilirubin < 0.2 (0.0-0.5) mg/dL AST 20 (5-37) U/L ALT 24 (0-40) U/L Alkaline Phosphatase 64 (39-117) U/L Troponin I High Sens 4.3 (<3.5-35.0) ng/L B-Natriuretic Peptide (<100) pg/mL Total Protein 6.1 L (6.5-8.0) g/dL Albumin 2.8 L (3.5-5.0) g/dL Lipase 20 (8-78) U/L Urine Color Urine Appearance Urine pH (5.0-9.0) Ur Specific [place] (1.005-1.025) Urine Protein (Neg-Trace) mg/dL Urine Glucose (UA) (Negative) mg/dL Urine Ketones (Negative) mg/dL Urine Blood (Negative) Urine Nitrite (Negative) Ur Leukocyte Esterase (Negative) Influenza Type A (PCR) (Negative) Influenza Type B (PCR) (Negative) RSV RNA Qual (PCR) (Negative) SARS-CoV-2 RNA (RT-PCR) (Negative) 06/10/22 06/10/22 06/10/22 Range/Units 02:36 02:36 02:36 WBC (4.8-10.8) X10*3/uL RBC (4.60-5.80) X10*6/uL Hgb (14.0-18.0) g/dl Hct (42.0-52.0) % MCV (80.0-98.0) fL MCH (27.0-33.0) pg MCHC (31.0-36.0) g/dl RDW (11.0-16.0) % Plt Count (160-400) X10*3/uL MPV (9.4-12.4) fL Immature Gran % (Auto) (0.0-0.4) % Neut % (Auto) (45-73) % Lymph % (Auto) (20-40) % [place] % (Auto) (2-11) % Eos % (Auto) (0-4) % Baso % (Auto) (0-2) % Lymph # (Auto) (1.2-4.9) X10*3/uL [place] # (Auto) (0.1-1.2) X10*3/uL Eos # (Auto) (0.0-0.4) X10*3/uL Baso # (Auto) (0.0-0.2) X10*3/uL Abs Immat Gran (auto) (0.00-0.03) X10*3/uL Absolute Neuts (auto) (2.0-8.3) x10*3/uL Absolute Nucleated RBC (0.0-0.012) X10*3/uL Nucleated RBC % (auto) (0.0-0.2) /100WBC D-Dimer High Sensitivty 482 NG/ML Sodium (135-145) mmol/L Potassium (3.3-5.1) mmol/L Chloride (96-108) mmol/L Carbon Dioxide (22-29) mmol/L Anion Gap (12-20) BUN (9-16) mg/dL Creatinine (0.5-1.4) mg/dL Estim Creat Clear Calc Estimated GFR Random Glucose (60-115) mg/dL Calcium (8.4-10.2) mg/dL Total Bilirubin (0.0-1.0) mg/dL Direct Bilirubin (0.0-0.5) mg/dL AST (5-37) U/L ALT (0-40) U/L Alkaline Phosphatase (39-117) U/L Troponin I High Sens (<3.5-35.0) ng/L B-Natriuretic Peptide 20 (<100) pg/mL Total Protein (6.5-8.0) g/dL Albumin (3.5-5.0) g/dL Lipase (8-78) U/L Urine Color Urine Appearance Urine pH (5.0-9.0) Ur Specific [place] (1.005-1.025) Urine Protein (Neg-Trace) mg/dL Urine Glucose (UA) (Negative) mg/dL Urine Ketones (Negative) mg/dL Urine Blood (Negative) Urine Nitrite (Negative) Ur Leukocyte Esterase (Negative) Influenza Type A (PCR) NEGATIVE (Negative) Influenza Type B (PCR) NEGATIVE (Negative) RSV RNA Qual (PCR) NEGATIVE (Negative) SARS-CoV-2 RNA (RT-PCR) NEGATIVE (Negative) 06/10/22 Range/Units 05:49 WBC (4.8-10.8) X10*3/uL RBC (4.60-5.80) X10*6/uL Hgb (14.0-18.0) g/dl Hct (42.0-52.0) % MCV (80.0-98.0) fL MCH (27.0-33.0) pg MCHC (31.0-36.0) g/dl RDW (11.0-16.0) % Plt Count (160-400) X10*3/uL MPV (9.4-12.4) fL Immature Gran % (Auto) (0.0-0.4) % Neut % (Auto) (45-73) % Lymph % (Auto) (20-40) % [place] % (Auto) (2-11) % Eos % (Auto) (0-4) % Baso % (Auto) (0-2) % Lymph # (Auto) (1.2-4.9) X10*3/uL [place] # (Auto) (0.1-1.2) X10*3/uL Eos # (Auto) (0.0-0.4) X10*3/uL Baso # (Auto) (0.0-0.2) X10*3/uL Abs Immat Gran (auto) (0.00-0.03) X10*3/uL Absolute Neuts (auto) (2.0-8.3) x10*3/uL Absolute Nucleated RBC (0.0-0.012) X10*3/uL Nucleated RBC % (auto) (0.0-0.2) /100WBC D-Dimer High Sensitivty NG/ML Sodium (135-145) mmol/L Potassium (3.3-5.1) mmol/L Chloride (96-108) mmol/L Carbon Dioxide (22-29) mmol/L Anion Gap (12-20) BUN (9-16) mg/dL Creatinine (0.5-1.4) mg/dL Estim Creat Clear Calc Estimated GFR Random Glucose (60-115) mg/dL Calcium (8.4-10.2) mg/dL Total Bilirubin (0.0-1.0) mg/dL Direct Bilirubin (0.0-0.5) mg/dL AST (5-37) U/L ALT (0-40) U/L Alkaline Phosphatase (39-117) U/L Troponin I High Sens (<3.5-35.0) ng/L B-Natriuretic Peptide (<100) pg/mL Total Protein (6.5-8.0) g/dL Albumin (3.5-5.0) g/dL Lipase (8-78) U/L Urine Color Yellow Urine Appearance Clear Urine pH 7.0 (5.0-9.0) Ur Specific [place] >= 1.030 H (1.005-1.025) Urine Protein Negative (Neg-Trace) mg/dL Urine Glucose (UA) Negative (Negative) mg/dL Urine Ketones Negative (Negative) mg/dL Urine Blood Negative (Negative) Urine Nitrite Negative (Negative) Ur Leukocyte Esterase Negative (Negative) Influenza Type A (PCR) (Negative) Influenza Type B (PCR) (Negative) RSV RNA Qual (PCR) (Negative) SARS-CoV-2 RNA (RT-PCR) (Negative) Independent Interpretation I performed an independent interpretation of an: Plain X-Ray (Chest: Stable bilateral patchy opacities unchanged from previous x-ray.) and CT Scan (Chest angio: No evidence of acute pulmonary embolus.) Radiology Impression Discussion of test interpretation with radiology: I have reviewed the radiologist's reading. Chronic Conditions Patient?s care impacted by: Other (COPD) Discharge Plan Discharge Clinical Impression: COPD (chronic obstructive pulmonary disease), Bronchiectasis Patient Disposition: Admitted As Inpatient Prescriptions: No Action Entresto 24-26 mg tablet 1 tab PO BID 90 Days Qty: 180 3RF lovastatin 10 mg tablet 10 mg PO DAILY 90 Days Qty: 90 3RF (DME) sarbjit Misc See Rx Instructions .Route Qty: 1 0RF Patient Comments: Pt states doesnot use Rx Instructions: with seat and wheels albuterol sulfate 90 mcg/actuation HFA aerosol inhaler 2 puff inhalation Q4H PRN (Reason: shortness of breath or wheezing) Qty: 8.5 4RF tamsulosin 0.4 mg capsule 0.4 mg PO DAILY Qty: 30 0RF Eliquis 5 mg tablet 5 mg PO BID 90 Days Qty: 180 1RF carvedilol 12.5 mg tablet 12.5 mg PO BID Qty: 60 0RF Protocol: Hold for SBP/HR < HOLD for SBP < : 90 HOLD for HR < : 60 docusate sodium 100 mg capsule 100 mg PO BID Qty: 60 0RF ipratropium-albuterol 0.5 mg-3 mg(2.5 mg base)/3 mL solution for nebulization 3 ml inhalation QID Qty: 120 11RF bumetanide 1 mg tablet 1 mg PO DAILY 30 Days Qty: 30 0RF travoprost 0.004 % drops 1 drp ophthalmic (eye) BEDTIME Rx Instructions: instill 1 drop into both eyes brimonidine-timolol [Combigan] 0.2-0.5 % drops 1 drp ophthalmic (eye) BID loratadine 10 mg Tablet 10 mg PO DAILY Qty: 10 0RF ertapenem 1 gram recon soln 1 g IM DAILY Qty: 4 0RF Rx Instructions: continue ertapenem (end date 06/07/22). omeprazole 40 mg capsule,delayed release(DR/EC) 40 mg PO DAILY@0630 finasteride [Proscar] 5 mg tablet 5 mg PO DAILY 90 Days Qty: 90 3RF prednisone 5 mg tablet 5 mg PO DAILY 30 Days Qty: 30 6RF
[2022-06-10 03:09] LABS: Alanine Aminotransferase 24 U/L (0-40); Albumin Level 2.8 g/dL (3.5-5.0); Alkaline Phosphatase 64 U/L (39-117); Aspartate Amino Transferase 20 U/L (5-37); Bilirubin Direct < 0.2 mg/dL (0.0-0.5); Bilirubin Total 0.3 mg/dL (0.0-1.0); Blood Urea Nitrogen 9 mg/dL (9-16); Calcium 8.2 mg/dL (8.4-10.2); Carbon Dioxide 29 mmol/L (22-29); Chloride 101 mmol/L (96-108); Creatinine Clr Calc Pharmacy 78.3; Estimated Glomerular Filt Rate > 60; Glucose Random 128 mg/dL (60-115); Lipase 20 U/L (8-78); Potassium 4.2 mmol/L (3.3-5.1); Sodium 137 mmol/L (135-145); Total Protein 6.1 g/dL (6.5-8.0)
[2022-06-10 03:10] LABS: Anion Gap 11 (12-20)
--- NOTE | 2022-06-10 03:10 | PC.NURSE ---
20 IV inserted into the left AC for CTA. Line is patent and secured.
[2022-06-10 03:20] LABS: Influenza A PCR NEGATIVE (Negative); Influenza B PCR NEGATIVE (Negative); Resp Syncy Virus RNA Qual PCR NEGATIVE (Negative); SARS COV2 PCR INHOUSE NEGATIVE (Negative)
[2022-06-10] MEDS: iohexoL 350 MG/ML 100 ML INFUS..BTL 85 ML IV (04:04)
[2022-06-10] MEDS: iohexoL 350 MG/ML 100 ML INFUS..BTL 65 ML IV (04:05)
[2022-06-10] MEDS: Albuterol Sulfate (0.083%) 2.5 MG/3 ML VIAL.NEB 7.5 MG INHALE (04:26)
[2022-06-10] MEDS: guaiFEN/Codeine SF 200/20/10ML 10 ML LIQUID PO (04:51)
[2022-06-10] MEDS: predniSONE 20 MG TABLET 40 MG PO (04:51)
--- NOTE | 2022-06-10 05:49 | MHC.EDTECH ---
this pct assumed care of pt at 0530 ,vitals sign taken pt urine sample collected and sent to lab .
[2022-06-10 05:55] LABS: Appearance Urine Clear; Color Urine Yellow; Glucose Urine UA Negative (Negative); Leukocyte Esterase Urine Negative (Negative); Nitrite Urine Negative (Negative); Specific Gravity - Urine >= 1.030 (1.005-1.025); Urine Blood Negative (Negative); Urine Ketones Negative (Negative); Urine Protein Negative (Neg-Trace)
--- NOTE | 2022-06-10 07:38 | P.HPHOSP_ITS ---
History of Present Illness Date of Service: 06/10/22 Chief Complaint: SOB 81-year-old man presenting with increased shortness of breath over the last 24 hours. He has a history bronchiectases and has frequent exacerbations. Was discharged on June 03 treated for the same. He reports that he has a lot of phlegm in his upper airway and feels that he can not get it out. He denies fever, chills, nausea, vomiting, diarrhea, chest pain. Denies any recent travel or sick contacts. White blood cell count elevated 12.5 however this seems chronic and he was recently on steroids, chronic anemia, noted elevated D-dimer with negative CTA. He was given albuterol, prednisone, Robitussin and omeprazole. He will be admitted for further management and treatment of acute bronchiectases. Review of Systems Review of Systems: Denies any recent fever chills or decrease in appetite respiratory See hPI cardiovascular is adjustment of any PND or edema gastrointestinal denies any dysphagia abdominal pain nausea vomiting or diarrhea genitourinary denies any dysuria frequency or hematuria musculoskeletal denies any joint pain or swelling neuropsych denies any weakness or seizures all other systems reviewed are negative [facility] Medical History (Updated 06/10/22 @ 15:06 by Chrissy Lopez NP) Acute and chronic respiratory failure BPH loc w urin obs/LUTS Bronchiectasis Congestive heart failure COPD (chronic obstructive pulmonary disease) Dysuria ESBL (extended spectrum beta-lactamase) producing bacteria infection Essential hypertension GERD (gastroesophageal reflux disease) Glaucoma Hearing loss Hernia History of MAC infection Kidney stone on left side JESSA (mycobacterium avium-intracellulare) NICM (nonischemic cardiomyopathy) Paroxysmal atrial fibrillation Pure hypercholesterolemia Supplemental oxygen dependent Urinary retention Family History Father No problems noted. Mother Medical history unknown Sister Diabetes Daughter In good health Son In good health Brother No problems noted. Surgical History History of bronchoscopy History of colonoscopy History of cystoscopy History of lumbar surgery History of rectal polypectomy Social History Household Members: None Housing: Apartment Do you presently have visiting nurse or other home services: No ([employer] for 2 hrs per day) Alcohol intake: never Patient Tobacco Use Status: Former Tobacco user Quit Date: 6 years ago Tobacco use type: Cigarette Smoked in Last 30 Days: No e-Cigarette/Vaping Use: Never Used Second Hand Smoke Exposure: No Use of substances other than those prescribed or required for medical reasons: No Advance Directives: Yes Advance Directives on File: Yes Advance Directives Date on File: 07/12/21 service: No Current occupational status: disabled Cognitive needs: No Hearing needs: Yes Vision needs: Yes Meds Allergies Allergy/AdvReac Type Severity Reaction Status Date / Time Penicillins [PENICILLINS] Allergy Intermediate PASSED Verified 05/25/22 12:55 OUT trazodone Allergy Intermediate tremors Verified 05/25/22 12:55 Active Medications: Current Medications Pharmacy Consult (Consult Rx Perform Med Rec) 1 each MISCELLANE ONCE PRN PRN Reason: Consult order Home Medications Medication Instructions Recorded Confirmed Last Taken Type brimonidine 0.2 %-timolol 0.5 % 1 drp ophthalmic (eye) BID 03/08/21 06/10/22 03/24/22 History eye drops (Combigan) travoprost 0.004 % eye drops 1 drp ophthalmic (eye) BEDTIME 03/08/21 06/10/22 03/24/22 History omeprazole 40 mg capsule,delayed 40 mg PO DAILY@0630 03/25/22 06/10/22 04/14/22 History release Physical Exam Vital Signs and Narrative: Vital Signs: Last Vital Signs Temp 98.2 F 06/10/22 05:45 Pulse 86 06/10/22 05:45 Resp 16 06/10/22 05:45 BP 105/63 06/10/22 05:45 Pulse Ox 95 06/10/22 05:45 O2 Del Method Nasal Cannula 06/10/22 05:45 O2 Flow Rate 2 06/10/22 05:45 Oxygen Flow Rate 7 06/10/22 01:43 BMI result Body Mass Index 25.1 Appearing in no acute distress head is normocephalic atraumatic eyes pupils are PERRLA sclera is anicteric mouth throat mucous membranes are intact and moist neck is supple no lymphadenopathy, no JVD noted lung sounds exp wheezing heart regular rate rhythm, clear S1, S2 positive bowel sounds, abdomen is soft, nontender neuro patient is alert x3, no focal deficits Results Labs 06/10/22 02:36 06/10/22 02:36 Labs: Laboratory Results - last 24 hr 06/10/22 06/10/22 06/10/22 02:36 02:36 02:36 MCV 79.8 L MCH 24.2 L MCHC 30.3 L RDW 15.2 Plt Count 342 D MPV 8.5 L Immature Gran % (Auto) 1.0 H Neut % (Auto) 80.6 H Lymph % (Auto) 5.[address] [place] % (Auto) 9.4 Eos % (Auto) 3.6 Baso % (Auto) 0.3 Lymph # (Auto) 0.[address] [place] # (Auto) 1.2 Eos # (Auto) 0.5 H Baso # (Auto) 0.0 Abs Immat Gran (auto) 0.12 H Absolute Neuts (auto) 10.1 H Absolute Nucleated RBC 0.000 Nucleated RBC % (auto) 0.0 D-Dimer High Sensitivty Anion Gap 11 L Estim Creat Clear Calc 78.3 Estimated GFR > 60 Random Glucose 128 H Calcium 8.2 L Total Bilirubin 0.3 Direct Bilirubin < 0.2 AST 20 ALT 24 Alkaline Phosphatase 64 Troponin I High Sens 4.3 B-Natriuretic Peptide Total Protein 6.1 L Albumin 2.8 L Lipase 20 Urine Color Urine Appearance Urine pH Ur Specific [place] Urine Protein Urine Glucose (UA) Urine Ketones Urine Blood Urine Nitrite Ur Leukocyte Esterase Influenza Type A (PCR) Influenza Type B (PCR) RSV RNA Qual (PCR) SARS-CoV-2 RNA (RT-PCR) 06/10/22 06/10/22 06/10/22 02:36 02:36 02:36 MCV MCH MCHC RDW Plt Count MPV Immature Gran % (Auto) Neut % (Auto) Lymph % (Auto) [place] % (Auto) Eos % (Auto) Baso % (Auto) Lymph # (Auto) [place] # (Auto) Eos # (Auto) Baso # (Auto) Abs Immat Gran (auto) Absolute Neuts (auto) Absolute Nucleated RBC Nucleated RBC % (auto) D-Dimer High Sensitivty 482 Anion Gap Estim Creat Clear Calc Estimated GFR Random Glucose Calcium Total Bilirubin Direct Bilirubin AST ALT Alkaline Phosphatase Troponin I High Sens B-Natriuretic Peptide 20 Total Protein Albumin Lipase Urine Color Urine Appearance Urine pH Ur Specific [place] Urine Protein Urine Glucose (UA) Urine Ketones Urine Blood Urine Nitrite Ur Leukocyte Esterase Influenza Type A (PCR) NEGATIVE Influenza Type B (PCR) NEGATIVE RSV RNA Qual (PCR) NEGATIVE SARS-CoV-2 RNA (RT-PCR) NEGATIVE 06/10/22 05:49 MCV MCH MCHC RDW Plt Count MPV Immature Gran % (Auto) Neut % (Auto) Lymph % (Auto) [place] % (Auto) Eos % (Auto) Baso % (Auto) Lymph # (Auto) [place] # (Auto) Eos # (Auto) Baso # (Auto) Abs Immat Gran (auto) Absolute Neuts (auto) Absolute Nucleated RBC Nucleated RBC % (auto) D-Dimer High Sensitivty Anion Gap Estim Creat Clear Calc Estimated GFR Random Glucose Calcium Total Bilirubin Direct Bilirubin AST ALT Alkaline Phosphatase Troponin I High Sens B-Natriuretic Peptide Total Protein Albumin Lipase Urine Color Yellow Urine Appearance Clear Urine pH 7.0 Ur Specific [place] >= 1.030 H Urine Protein Negative Urine Glucose (UA) Negative Urine Ketones Negative Urine Blood Negative Urine Nitrite Negative Ur Leukocyte Esterase Negative Influenza Type A (PCR) Influenza Type B (PCR) RSV RNA Qual (PCR) SARS-CoV-2 RNA (RT-PCR) Imaging Radiologist's Impressions: Impressions Chest X-Ray 06/10/22 02:45 IMPRESSION: * No significant interval change. * Stable bilateral linear and patchy opacities, varicoid and cystic bronchiectatic changes. Chest CTA 06/10/22 03:40 IMPRESSION: * No evidence of pulmonary embolism. * Severe chronic lung disease with diffuse varicoid and cystic bronchiectasis, extensive endobronchial secretions, and tree-in-bud nodularity. * Waxing and waning nodular opacities superimposed on the chronic lung disease, likely infectious/inflammatory in etiology VTE: negative Assessment and Plan (1) Bronchiectasis: Status: Acute Plan 81-year-old man with history of bronchiectasis, COPD, CHF, JESSA, and ICM, paroxysmal atrial fibrillation admitted with acute exacerbation of bronchiectases 9 Acute bronchiectasis exacerbation. Prednisone, schedule DuoNebs Pulmonary consultation Supplemental oxygen Previously treated with IV antibiotics until 06/08/2022, will hold off for now Mucinex for dry cough BPH Continue home medication Heart failure with preserved ejection fraction Continue Entresto No exacerbation Nonischemic cardiomyopathy Continue beta-marika Glaucoma Continue home medications Paroxysmal atrial fibrillation, rate controlled Continue beta-marika and Eliquis DVT prophylaxis Eliquis Attending Dr. Alvarez Full code Patient will require 2 inpatient midnights for treatment acute bronchiectases requiring higher oxygen demand and close monitoring Time Spent With Patient Time: Total time managing care of this patient today ____ minutes. Quality Stroke Does the patient have a stroke diagnosis?: No VTE Prior VTE?: No VTE Risk Level:: Medical - moderate - high VTE Device Contraindication: Treatment Not Indicated VTE Drug Contraindication: N/A - Med Ordered
--- NOTE | 2022-06-10 07:53 | PHA.MEDREC ---
Pharmacy Consult ? Medication Reconciliation Pharmacy has completed the medication reconciliation. Patient doesn't know medications - utilized list from last discharge and claim history
[2022-06-10] MEDS: guaiFENesin LA 600 MG TAB.ER.12H 1200 MG PO ×2 (11:05→20:33)
[2022-06-10] MEDS: Pravastatin Sodium 10 MG TABLET PO (11:12)
[2022-06-10] MEDS: Albuterol Sulfate (0.083%) 2.5 MG/3 ML VIAL.NEB INHALE ×4 (11:12→23:34)
[2022-06-10] MEDS: Omeprazole 40 MG CAPSULE.DR PO (11:57)
--- NOTE | 2022-06-10 14:06 | PC.NURSE ---
transport contacted to bring pt to [phone]
--- NOTE | 2022-06-10 14:43 | PC.NURSE ---
Pt calm and compliant throughout stay, ambulatory to restroom with standby assist.
[2022-06-10] MEDS: 0.9 % Sodium Chloride Flush 3 ML SYRINGE IVFLUSH ×2 (17:11→20:31)
[2022-06-10] MEDS: Docusate Sodium 100 MG CAPSULE PO (20:32)
[2022-06-10] MEDS: carvediloL 12.5 MG TABLET PO (20:32)
[2022-06-10] MEDS: Sacubitril/Valsartan 24/26 1 TAB TABLET PO (20:32)
[2022-06-10] MEDS: Apixaban 5 MG TABLET PO (20:32)
[2022-06-11] VITALS (8 sets, daily range): BP systolic 98–113; BP diastolic 59–67; PULSE 75–89; RESP 17–20; TEMP 36.4–36.8; O2SAT 94–99
[2022-06-11] MEDS: Albuterol Sulfate (0.083%) 2.5 MG/3 ML VIAL.NEB INHALE ×5 (02:40→19:43)
[2022-06-11 06:00] LABS: MANUAL DIFF FLAG NO
[2022-06-11 06:07] LABS: Basophils Percent Auto 0.3 % (0-2); Eosinophils Absolute Auto 0.3 X10*3/uL (0.0-0.4); Eosinophils Percent Auto 3.2 % (0-4); Hemoglobin 9.3 g/dl (14.0-18.0); Imm Gran Abs Auto 0.08 X10*3/uL (0.00-0.03); Imm Gran Pct Auto 0.8 % (0.0-0.4); Lymphocytes Absolute Auto 0.8 X10*3/uL (1.2-4.9); Lymphocytes Percent Auto 7.6 % (20-40); Mean Corpuscular Hemoglobin 23.9 pg (27.0-33.0); Mean Corpuscular Volume 79.7 fL (80.0-98.0); Mean Platelet Volume 8.7 fL (9.4-12.4); Monocytes Absolute Auto 1.1 X10*3/uL (0.1-1.2); Monocytes Percent Auto 10.2 % (2-11); Neutrophils Absolute Auto 8.3 x10*3/uL (2.0-8.3); Neutrophils Percent Auto 77.9 % (45-73); Platelet Count 347 X10*3/uL (160-400); Red Blood Count 3.89 X10*6/uL (4.60-5.80); White Blood Count 10.6 X10*3/uL (4.8-10.8)
[2022-06-11] MEDS: Omeprazole 40 MG CAPSULE.DR PO (06:19)
[2022-06-11 06:45] LABS: Anion Gap 14 (12-20); Blood Urea Nitrogen 9 mg/dL (9-16); Carbon Dioxide 27 mmol/L (22-29); Chloride 101 mmol/L (96-108); Creatinine Clr Calc Pharmacy 80.6; Estimated Glomerular Filt Rate > 60; Glucose Random 122 mg/dL (60-115); Sodium 138 mmol/L (135-145)
[2022-06-11] MEDS: Loratadine 10 MG TABLET PO (08:01)
[2022-06-11] MEDS: predniSONE 20 MG TABLET 40 MG PO (08:01)
[2022-06-11] MEDS: Bumetanide 1 MG TABLET PO (08:01)
[2022-06-11] MEDS: guaiFENesin LA 600 MG TAB.ER.12H 1200 MG PO ×2 (08:01→20:17)
[2022-06-11] MEDS: Docusate Sodium 100 MG CAPSULE PO ×2 (08:01→20:17)
[2022-06-11] MEDS: Sacubitril/Valsartan 24/26 1 TAB TABLET PO ×2 (08:02→20:18)
[2022-06-11] MEDS: Tamsulosin HCL 0.4 MG CAPSULE PO (08:02)
[2022-06-11] MEDS: Finasteride 5 MG TABLET PO (08:02)
[2022-06-11] MEDS: carvediloL 12.5 MG TABLET PO ×2 (08:02→20:19)
[2022-06-11] MEDS: Pravastatin Sodium 10 MG TABLET PO (08:02)
[2022-06-11] MEDS: Apixaban 5 MG TABLET PO ×2 (08:02→20:17)
[2022-06-11] MEDS: Brimonidine Tartrate 0.2% Oph 5 ML BOTTLE 1 DROP EYE-BOTH ×2 (08:03→20:16)
[2022-06-11] MEDS: timoloL maleate 0.5 % Oph Sol 5 ML DRBTL 1 DROP EYE-BOTH ×2 (08:03→20:16)
[2022-06-11] MEDS: 0.9 % Sodium Chloride Flush 3 ML SYRINGE IVFLUSH ×3 (08:03→20:19)
--- NOTE | 2022-06-11 09:09 | P.PNIM_ITS ---
Subjective Subjective Date of Service: 06/11/22 Review of Systems Follow-up acute bronchiectases Able to get some phlegm out Sitting up in bed eating breakfast Physical Exam Vital Signs: Vital Signs: Last Vital Signs Temp 97.5 F 06/11/22 07:48 Pulse 75 06/11/22 07:48 Resp 17 06/11/22 07:48 BP 106/59 L 06/11/22 07:48 Pulse Ox 94 06/11/22 07:48 O2 Del Method Nasal Cannula 06/11/22 07:48 O2 Flow Rate 2.5 06/11/22 07:48 Oxygen Flow Rate 7 06/10/22 01:43 BMI result Body Mass Index 25.1 Appearing in no acute distress lung sounds are clear to auscultation heart regular rate rhythm, clear S1, S2 positive bowel sounds, abdomen is soft, nontender neuro patient is alert x3, no focal deficits Objective Data Active Medications Acetaminophen (Acetaminophen 325 Mg Tablet) 650 mg PO Q6H PRN PRN Reason: Pain, Mild (Pain Scale 1-3) Albuterol Sulfate (Albuterol Sulfate (0.083%) 2.5 Mg/3 Ml Vial.Neb) 2.5 mg INHALE RQ4H [facility] Last Admin: 06/11/22 07:29 Dose: 2.5 mg Documented By: TAYLOR Apixaban (Apixaban 5 Mg Tablet) 5 mg PO BID [facility] Last Admin: 06/11/22 08:02 Dose: 5 mg Documented By: ROBBI Brimonidine Tartrate (Brimonidine Tartrate 0.2% Oph 5 Ml Bottle) 1 drop EYE- BOTH BID [facility] Last Admin: 06/11/22 08:03 Dose: 1 drop Documented By: ROBBI Bumetanide (Bumetanide 1 Mg Tablet) 1 mg PO DAILY [facility]; Protocol Last Admin: 06/11/22 08:01 Dose: 1 mg Documented By: ROBBI Carvedilol (Carvedilol 12.5 Mg Tablet) 12.5 mg PO BID [facility]; Protocol Last Admin: 06/11/22 08:02 Dose: 12.5 mg Documented By: ROBBI Docusate Sodium (Docusate Sodium 100 Mg Capsule) 100 mg PO BID [facility] Last Admin: 06/11/22 08:01 Dose: 100 mg Documented By: ROBBI Finasteride (Finasteride 5 Mg Tablet) 5 mg PO DAILY [facility] Last Admin: 06/11/22 08:02 Dose: 5 mg Documented By: ROBBI Guaifenesin (Guaifenesin La 600 Mg Tab.Er.12h) 1,200 mg PO BID [facility] Last Admin: 06/11/22 08:01 Dose: 1,200 mg Documented By: ROBBI Latanoprost (Latanoprost 0.005 % Ophth [place] 2.5 Ml Drops) 1 drop EYE-BOTH BEDTIME [facility] Last Admin: 06/10/22 22:03 Dose: Not Given Documented By: CHRIS Non-Admin Reason: Med Not Available Loratadine (Loratadine 10 Mg Tablet) 10 mg PO DAILY [facility] Last Admin: 06/11/22 08:01 Dose: 10 mg Documented By: ROBBI Omeprazole (Omeprazole 40 Mg Capsule.Dr) 40 mg PO DAILY@0630 [facility] Last Admin: 06/11/22 06:19 Dose: 40 mg Documented By: CHRIS Ondansetron HCl (Ondansetron Hcl 4 Mg/2 Ml Vial) 4 mg IVPUSH Q8H PRN PRN Reason: Nausea and Vomiting Pharmacy Consult (Consult Rx Perform Med Rec) 1 each MISCELLANE ONCE PRN PRN Reason: Consult order Pravastatin Sodium (Pravastatin Sodium 10 Mg Tablet) 10 mg PO DAILY [facility] Last Admin: 06/11/22 08:02 Dose: 10 mg Documented By: ROBBI Prednisone (Prednisone 20 Mg Tablet) 40 mg PO DAILY [facility] Last Admin: 06/11/22 08:01 Dose: 40 mg Documented By: ROBBI Sacubitril/Valsartan (Sacubitril/Valsartan 1 Tab Tablet) 1 tab PO BID [facility]; Protocol Last Admin: 06/11/22 08:02 Dose: 1 tab Documented By: ROBBI Sodium Chloride (0.9 % Sodium Chloride Flush 3 Ml Syringe) 3 ml IVFLUSH QSHIFT [facility] Last Admin: 06/11/22 08:03 Dose: 3 ml Documented By: ROBBI Tamsulosin HCl (Tamsulosin Hcl 0.4 Mg Capsule) 0.4 mg PO DAILY [facility] Last Admin: 06/11/22 08:02 Dose: 0.4 mg Documented By: ROBBI Timolol Maleate (Timolol Maleate 0.5 % Oph [place] 5 Ml Drbtl) 1 drop EYE-BOTH BID [facility] Last Admin: 06/11/22 08:03 Dose: 1 drop Documented By: ROBBI Labs 06/11/22 05:17 06/11/22 05:17 Labs: Laboratory Results - last 24 hr 06/11/22 06/11/22 05:17 05:17 MCV 79.7 L MCH 23.9 L MCHC 30.0 L RDW 15.0 Plt Count 347 MPV 8.7 L Immature Gran % (Auto) 0.8 H Neut % (Auto) 77.9 H Lymph % (Auto) 7.6 L [place] % (Auto) 10.2 Eos % (Auto) 3.2 Baso % (Auto) 0.3 Lymph # (Auto) 0.8 L [place] # (Auto) 1.1 Eos # (Auto) 0.3 Baso # (Auto) 0.0 Abs Immat Gran (auto) 0.08 H Absolute Neuts (auto) 8.3 Absolute Nucleated RBC 0.000 Nucleated RBC % (auto) 0.0 Anion Gap 14 Estim Creat Clear Calc 80.6 Estimated GFR > 60 Random Glucose 122 H Calcium 8.0 L Assessment and Plan (1) Pneumonia: Status: Acute Plan 81-year-old man with history of bronchiectasis, COPD, CHF, JESSA, and ICM, paroxysmal atrial fibrillation admitted with acute exacerbation of bronchiectases 9 Acute bronchiectasis exacerbation. Prednisone, schedule DuoNebs Pulmonary consultation pending Supplemental oxygen Previously treated with IV antibiotics until 06/08/2022, will hold off for now Mucinex for dry cough BPH Continue home medication Heart failure with preserved ejection fraction Continue Entresto No exacerbation Nonischemic cardiomyopathy Continue beta-marika Glaucoma Continue home medications Paroxysmal atrial fibrillation, rate controlled Continue beta-marika and Eliquis DVT prophylaxis Leannequis Attending Dr. Bourgeois Full code contionued hospital stay for treatment acute bronchiectases requiring higher oxygen demand and close monitoring Time Spent With Patient Time: Total time managing care of this patient today ____ minutes. Quality Stroke Does the patient have a stroke diagnosis?: No VTE Prior VTE?: No VTE Risk Level:: Medical - moderate - high VTE Device Contraindication: Treatment Not Indicated VTE Drug Contraindication: N/A - Med Ordered
--- NOTE | 2022-06-11 15:43 | MHC.CM.PN ---
PT LIVES ALONE AND HAS [employer] SERVICES 2 HRS/DAY MON-FRI. 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
[2022-06-11] MEDS: Latanoprost 0.005 % Ophth Sol 2.5 ML DROPS 1 DROP EYE-BOTH (20:16)
[2022-06-12] VITALS (8 sets, daily range): BP systolic 103–114; BP diastolic 53–58; PULSE 70–86; RESP 17–20; TEMP 36–36.4; O2SAT 93–98
[2022-06-12] MEDS: Omeprazole 40 MG CAPSULE.DR PO (05:41)
--- NOTE | 2022-06-12 07:25 | HO.PM.IMPN ---
Subjective Subjective Date of Service: 06/12/22 Review of Systems Follow-up acute bronchiectases Able to get some phlegm out Sitting up in bed eating breakfast Physical Exam Vital Signs: Vital Signs: Last Vital Signs Temp 97.5 F 06/12/22 07:04 Pulse 70 06/12/22 07:04 Resp 18 06/12/22 07:04 BP 114/57 L 06/12/22 07:04 Pulse Ox 95 06/12/22 07:04 O2 Del Method Nasal Cannula 06/12/22 07:04 O2 Flow Rate 3 06/12/22 07:04 Oxygen Flow Rate 7 06/10/22 01:43 BMI result Body Mass Index 25.1 Appearing in no acute distress lung sounds are clear to auscultation heart regular rate rhythm, clear S1, S2 positive bowel sounds, abdomen is soft, nontender neuro patient is alert x3, no focal deficits Objective Data Active Medications Acetaminophen (Acetaminophen 325 Mg Tablet) 650 mg PO Q6H PRN PRN Reason: Pain, Mild (Pain Scale 1-3) Albuterol Sulfate (Albuterol Sulfate (0.083%) 2.5 Mg/3 Ml Vial.Neb) 2.5 mg INHALE RQ4H [facility] Last Admin: 06/12/22 03:48 Dose: Not Given Documented By: [place] Non-Admin Reason: Patient Asleep Apixaban (Apixaban 5 Mg Tablet) 5 mg PO BID [facility] Last Admin: 06/11/22 20:17 Dose: 5 mg Documented By: TIANNA Brimonidine Tartrate (Brimonidine Tartrate 0.2% Oph 5 Ml Bottle) 1 drop EYE-BOTH BID [facility] Last Admin: 06/11/22 20:16 Dose: 1 drop Documented By: TIANNA Bumetanide (Bumetanide 1 Mg Tablet) 1 mg PO DAILY [facility]; Protocol Last Admin: 06/11/22 08:01 Dose: 1 mg Documented By: ROBBI Carvedilol (Carvedilol 12.5 Mg Tablet) 12.5 mg PO BID [facility]; Protocol Last Admin: 06/11/22 20:19 Dose: 12.5 mg Documented By: TIANNA Comments: BP 113/67 H 80 Docusate Sodium (Docusate Sodium 100 Mg Capsule) 100 mg PO BID [facility] Last Admin: 06/11/22 20:17 Dose: 100 mg Documented By: TIANNA Finasteride (Finasteride 5 Mg Tablet) 5 mg PO DAILY [facility] Last Admin: 06/11/22 08:02 Dose: 5 mg Documented By: ROBBI Guaifenesin (Guaifenesin [place] 600 Mg Tab.Er.12h) 1,200 mg PO BID [facility] Last Admin: 06/11/22 20:17 Dose: 1,200 mg Documented By: TIANNA Latanoprost (Latanoprost 0.005 % Ophth [place] 2.5 Ml Drops) 1 drop EYE-BOTH BEDTIME [facility] Last Admin: 06/11/22 20:16 Dose: 1 drop Documented By: TIANNA Loratadine (Loratadine 10 Mg Tablet) 10 mg PO DAILY [facility] Last Admin: 06/11/22 08:01 Dose: 10 mg Documented By: ROBBI Omeprazole (Omeprazole 40 Mg Capsule.Dr) 40 mg PO DAILY@0630 [facility] Last Admin: 06/12/22 05:41 Dose: 40 mg Documented By: TIANNA Ondansetron HCl (Ondansetron Hcl 4 Mg/2 Ml Vial) 4 mg IVPUSH Q8H PRN PRN Reason: Nausea and Vomiting Pharmacy Consult (Consult Rx Perform Med Rec) 1 each MISCELLANE ONCE PRN PRN Reason: Consult order Pravastatin Sodium (Pravastatin Sodium 10 Mg Tablet) 10 mg PO DAILY [facility] Last Admin: 06/11/22 08:02 Dose: 10 mg Documented By: ROBBI Prednisone (Prednisone 20 Mg Tablet) 40 mg PO DAILY [facility] Last Admin: 06/11/22 08:01 Dose: 40 mg Documented By: ROBBI Sacubitril/Valsartan (Sacubitril/Valsartan 1 Tab Tablet) 1 tab PO BID [facility]; Protocol Last Admin: 06/11/22 20:18 Dose: 1 tab Documented By: TIANNA Comments: BP 113/67 H 78 Sodium Chloride (0.9 % Sodium Chloride Flush 3 Ml Syringe) 3 ml IVFLUSH QSHIFT [facility] Last Admin: 06/11/22 20:19 Dose: 3 ml Documented By: TIANNA Tamsulosin HCl (Tamsulosin Hcl 0.4 Mg Capsule) 0.4 mg PO DAILY [facility] Last Admin: 06/11/22 08:02 Dose: 0.4 mg Documented By: ROBBI Timolol Maleate (Timolol Maleate 0.5 % Oph [place] 5 Ml Drbtl) 1 drop EYE-BOTH BID [facility] Last Admin: 06/11/22 20:16 Dose: 1 drop Documented By: TIANNA Labs 06/11/22 05:17 06/11/22 05:17 Assessment and Plan (1) Pneumonia: Status: Acute Plan 81-year-old man with history of bronchiectasis, COPD, CHF, JESSA, and ICM, paroxysmal atrial fibrillation admitted with acute exacerbation of bronchiectases 9 Acute bronchiectasis exacerbation. Prednisone, schedule DuoNebs Pulmonary consultation pending Supplemental oxygen Previously treated with IV antibiotics until 06/08/2022, will hold off for now Mucinex for dry cough BPH Continue home medication Heart failure with preserved ejection fraction Continue Entresto No exacerbation microcytic anemia, non blood loss, chronic stable HH Nonischemic cardiomyopathy Continue beta-marika Glaucoma Continue home medications Paroxysmal atrial fibrillation, rate controlled Continue beta-marika and Eliquis DVT prophylaxis Eliquis Attending Dr. Butt Full code continued hospital stay for treatment acute bronchiectases requiring higher oxygen demand and close monitoring Time Spent With Patient Time: Total time managing care of this patient today ____ minutes. Quality Stroke Does the patient have a stroke diagnosis?: No VTE Prior VTE?: No VTE Risk Level:: Medical - moderate - high VTE Device Contraindication: Treatment Not Indicated VTE Drug Contraindication: N/A - Med Ordered
[2022-06-12] MEDS: Albuterol Sulfate (0.083%) 2.5 MG/3 ML VIAL.NEB INHALE ×4 (07:48→19:28)
[2022-06-12] MEDS: Loratadine 10 MG TABLET PO (08:12)
[2022-06-12] MEDS: Bumetanide 1 MG TABLET PO (08:12)
[2022-06-12] MEDS: Tamsulosin HCL 0.4 MG CAPSULE PO (08:13)
[2022-06-12] MEDS: Apixaban 5 MG TABLET PO ×2 (08:13→19:42)
[2022-06-12] MEDS: Sacubitril/Valsartan 24/26 1 TAB TABLET PO ×2 (08:13→19:42)
[2022-06-12] MEDS: Finasteride 5 MG TABLET PO (08:13)
[2022-06-12] MEDS: carvediloL 12.5 MG TABLET PO ×2 (08:13→19:43)
[2022-06-12] MEDS: Pravastatin Sodium 10 MG TABLET PO (08:13)
[2022-06-12] MEDS: Docusate Sodium 100 MG CAPSULE PO ×2 (08:13→19:43)
[2022-06-12] MEDS: guaiFENesin LA 600 MG TAB.ER.12H 1200 MG PO (08:13)
[2022-06-12] MEDS: 0.9 % Sodium Chloride Flush 3 ML SYRINGE IVFLUSH ×3 (08:13→19:42)
[2022-06-12] MEDS: predniSONE 20 MG TABLET 40 MG PO (08:13)
[2022-06-12] MEDS: timoloL maleate 0.5 % Oph Sol 5 ML DRBTL 1 DROP EYE-BOTH ×2 (08:27→19:50)
[2022-06-12] MEDS: Brimonidine Tartrate 0.2% Oph 5 ML BOTTLE 1 DROP EYE-BOTH ×2 (08:30→19:50)
[2022-06-12 08:32] LABS: Hemoglobin 10.2 g/dl (14.0-18.0)
--- NOTE | 2022-06-12 15:13 | MHC.CM.PN ---
Per MD rounds no dc today. A pulmonary consult has been ordered. DP home with resumption of services. Pts OUTREACH CONSULTANT will provide transport home.
[2022-06-12] MEDS: Benzonatate 100 MG CAPSULE PO (16:25)
[2022-06-12] MEDS: Acetaminophen 325 MG TABLET 650 MG PO (16:25)
[2022-06-12] MEDS: guaiFEN/Codeine SF 200/20/10ML 10 ML LIQUID 5 ML PO (16:26)
--- NOTE | 2022-06-12 17:06 | PC.NURSE ---
Pt alert and oriented x3 but is mostly estonian speaking. Pt continues to have moist intermittent cough with some phlegm. notified. Tessalon ordered and given along with Bartsin with ana. Pt also continues on O2 2L via NC. LS are dim throughout . Pt continues on Contact preacutions for VRE and ESBL.
[2022-06-12] MEDS: Latanoprost 0.005 % Ophth Sol 2.5 ML DROPS 1 DROP EYE-BOTH (19:50)
[2022-06-13] MEDS: Benzonatate 100 MG CAPSULE PO (02:29)
[2022-06-13] MEDS: guaiFEN/Codeine SF 200/20/10ML 10 ML LIQUID 5 ML PO (02:29)
[2022-06-13 02:30] VITALS: PULSE 67; RESP 20; O2SAT 95
[2022-06-13] MEDS: Albuterol Sulfate (0.083%) 2.5 MG/3 ML VIAL.NEB INHALE ×3 (02:30→11:33)
[2022-06-13 03:41] VITALS: BP 109/54; PULSE 61; RESP 17; TEMP 36.6; O2SAT 97
[2022-06-13] MEDS: Omeprazole 40 MG CAPSULE.DR PO (05:13)
[2022-06-13 06:54] VITALS: BP 104/54; PULSE 67; RESP 18; TEMP 36.6; O2SAT 96
[2022-06-13 07:52] VITALS: PULSE 84; RESP 20; O2SAT 95
[2022-06-13] MEDS: Sacubitril/Valsartan 24/26 1 TAB TABLET PO (08:14)
[2022-06-13] MEDS: Bumetanide 1 MG TABLET PO (08:14)
[2022-06-13] MEDS: Apixaban 5 MG TABLET PO (08:15)
[2022-06-13] MEDS: Docusate Sodium 100 MG CAPSULE PO (08:15)
[2022-06-13] MEDS: Loratadine 10 MG TABLET PO (08:15)
[2022-06-13] MEDS: Pravastatin Sodium 10 MG TABLET PO (08:15)
[2022-06-13] MEDS: carvediloL 12.5 MG TABLET PO (08:15)
[2022-06-13] MEDS: Finasteride 5 MG TABLET PO (08:15)
[2022-06-13] MEDS: predniSONE 20 MG TABLET 40 MG PO (08:15)
[2022-06-13] MEDS: Tamsulosin HCL 0.4 MG CAPSULE PO (08:15)
[2022-06-13] MEDS: Brimonidine Tartrate 0.2% Oph 5 ML BOTTLE 1 DROP EYE-BOTH (08:17)
[2022-06-13] MEDS: 0.9 % Sodium Chloride Flush 3 ML SYRINGE IVFLUSH (08:23)
[2022-06-13] MEDS: timoloL maleate 0.5 % Oph Sol 5 ML DRBTL 1 DROP EYE-BOTH (08:23)
[2022-06-13 08:52] VITALS: PULSE 84
--- NOTE | 2022-06-13 09:32 | PM.CNPUL ---
History of Present Illness History of Present Illness Consult date: 06/12/22 Reason for consult: dyspnea, cough, COPD and other (Bronchiectasis ) Chief complaint: Bronchiectases Narrative: PULMONARY CONSULTATION NOTE: This 81 years old gentleman who was admitted over the weekend why and seen by me for pulmonary consultation, He presented to the hospital with increased cough and shortness of breath for about 24 hours, Denied fever chills or any chest pain. Is a known case of chronic obstructive pulmonary disease and bronchiectasis. He was admitted just a few weeks ago and treated for an acute exacerbation. Because of his bronchiectases he is prone to have recurrent respiratory infections, currently he is on Meropenem and tobramycin why a nebulizer , and has been doing relatively better. He has also been on prednisone bursts and 5 mg of prednisone on a daily basis. To suppress his recurrent respiratory infection he has been on doxycycline 100 mg 3 times a week. He also uses DuoNeb updrafts 4 times a day. He does not have oxygen at home, On his last admission he had patchy opacities indicating multifocal pneumonia. Since his admission this time he is on IV Solu-Medrol which is now change to prednisone 40 mg daily and will require slow taper. He has not required oxygen. Cough it is mild intermittent and down to his baseline. His CTA is negative for pulmonary embolism. Review of Systems Constitutional: Constitutional: Denies daytime sleepiness, Denies excessive sweating, Denies fatigue, Denies fever(s), Denies lethargy, Denies malaise, Denies night sweats, Denies snoring and Denies weight loss Eyes: Eyes: Denies blurry vision and Denies itchy eyes ENT: Denies nasal congestion, Denies post nasal drip, Denies sinus pain, Denies sinus pressure and Denies other ( Thrush) Cardiovascular: Cardiovascular: Denies chest pain, Denies pedal edema, Denies dyspnea, Denies orthopnea and Denies paroxysmal nocturnal dyspnea Respiratory: Respiratory: Reports chest congestion, Reports cough, Denies hemoptysis, Denies excessive phlegm production, Denies dyspnea, Denies snoring and Denies wheezing Gastrointestinal: Gastrointestinal: Denies abdominal pain and Denies heartburn Musculoskeletal: Musculoskeletal: Denies myalgias, Denies arthralgias and Denies joint swelling Integumentary/Breasts: Skin/Breast: Denies rash Neurologic: Denies memory loss and Denies seizure-like activity Psychiatric: Psychiatric: Denies abnormal sleep pattern, Denies anxiety and Denies memory loss Endocrine: Endocrine: Denies excessive sweating, Denies fatigue and Denies heat intolerance Hematologic/Lymphatic: Hematologic/Lymphatic: Denies easy bruising Allergic/Immunologic: Allergic/Immunologic: Denies itchy eyes, Denies seasonal rhinorrhea and Denies wheezing PMFSH Past Medical History Medical History Acute and chronic respiratory failure BPH loc w urin obs/LUTS Bronchiectasis Congestive heart failure COPD (chronic obstructive pulmonary disease) Dysuria ESBL (extended spectrum beta-lactamase) producing bacteria infection Essential hypertension GERD (gastroesophageal reflux disease) Glaucoma Hearing loss Hernia History of MAC infection Kidney stone on left side JESSA (mycobacterium avium-intracellulare) NICM (nonischemic cardiomyopathy) Paroxysmal atrial fibrillation Pure hypercholesterolemia Supplemental oxygen dependent Urinary retention Family History Family History Father No problems noted. Mother Medical history unknown Sister Diabetes Daughter In good health Son In good health Brother No problems noted. Surgical History Surgical History History of bronchoscopy History of colonoscopy History of cystoscopy History of lumbar surgery History of rectal polypectomy Social History Social History Household Members: None Housing: Other Do you presently have visiting nurse or other home services: No Alcohol intake: never Patient Tobacco Use Status: Former Tobacco user Quit Date: 6 years ago Tobacco use type: Cigarette Smoked in Last 30 Days: No e-Cigarette/Vaping Use: Never Used Second Hand Smoke Exposure: No Use of substances other than those prescribed or required for medical reasons: No Currently Displaying Signs/Symptoms of Drug Intoxication Withdrawal: No Are you made to feel afraid or neglected: No Advance Directives: Yes Advance Directives on File: Yes Advance Directives Date on File: 07/12/21 Do you have thoughts of harming others: None Do you have a plan to hurt others: No Plan Recently lost weight without trying: No How much weight loss: 2-13 pounds Nutrition Risks: No Nutritional Risk Poor oral hygiene: No service: No Current occupational status: retired Cognitive needs: No Hearing needs: Yes Vision needs: Yes Meds Allergies Allergy/AdvReac Type Severity Reaction Status Date / Time Penicillins [PENICILLINS] Allergy Intermediate PASSED Verified 05/25/22 12:55 OUT trazodone Allergy Intermediate tremors Verified 05/25/22 12:55 Active Medications: Current Medications Acetaminophen (Acetaminophen 325 Mg Tablet) 650 mg PO Q6H PRN PRN Reason: Pain, Mild (Pain Scale 1-3) Last Admin: 06/12/22 16:25 Dose: 650 mg Albuterol Sulfate (Albuterol Sulfate (0.083%) 2.5 Mg/3 Ml Vial.Neb) 2.5 mg INHALE RQ4H [facility] Last Admin: 06/13/22 07:51 Dose: 2.5 mg Apixaban (Apixaban 5 Mg Tablet) 5 mg PO BID [facility] Last Admin: 06/13/22 08:15 Dose: 5 mg Benzonatate (Benzonatate 100 Mg Capsule) 100 mg PO TID PRN PRN Reason: Cough Last Admin: 06/13/22 02:29 Dose: 100 mg Brimonidine Tartrate (Brimonidine Tartrate 0.2% Oph 5 Ml Bottle) 1 drop EYE-BOTH BID [facility] Last Admin: 06/13/22 08:17 Dose: 1 drop Bumetanide (Bumetanide 1 Mg Tablet) 1 mg PO DAILY [facility]; Protocol Last Admin: 06/13/22 08:14 Dose: 1 mg Carvedilol (Carvedilol 12.5 Mg Tablet) 12.5 mg PO BID [facility]; Protocol Last Admin: 06/13/22 08:15 Dose: 12.5 mg Docusate Sodium (Docusate Sodium 100 Mg Capsule) 100 mg PO BID [facility] Last Admin: 06/13/22 08:15 Dose: 100 mg Finasteride (Finasteride 5 Mg Tablet) 5 mg PO DAILY [facility] Last Admin: 06/13/22 08:15 Dose: 5 mg Guaifenesin/Codeine Phosphate (Guaifen/Codeine Sf 200/20/10ml 10 Ml Liquid) 5 ml PO Q6H PRN PRN Reason: Cough Last Admin: 06/13/22 02:29 Dose: 5 ml Latanoprost (Latanoprost 0.005 % Ophth Thalia 2.5 Ml Drops) 1 drop EYE-BOTH BEDTIME [facility] Last Admin: 06/12/22 19:50 Dose: 1 drop Loratadine (Loratadine 10 Mg Tablet) 10 mg PO DAILY [facility] Last Admin: 06/13/22 08:15 Dose: 10 mg Omeprazole (Omeprazole 40 Mg Capsule.Dr) 40 mg PO DAILY@0630 [facility] Last Admin: 06/13/22 05:13 Dose: 40 mg Ondansetron HCl (Ondansetron Hcl 4 Mg/2 Ml Vial) 4 mg IVPUSH Q8H PRN PRN Reason: Nausea and Vomiting Pharmacy Consult (Consult Rx Perform Med Rec) 1 each MISCELLANE ONCE PRN PRN Reason: Consult order Pravastatin Sodium (Pravastatin Sodium 10 Mg Tablet) 10 mg PO DAILY [facility] Last Admin: 06/13/22 08:15 Dose: 10 mg Prednisone (Prednisone 20 Mg Tablet) 40 mg PO DAILY [facility] Last Admin: 06/13/22 08:15 Dose: 40 mg Sacubitril/Valsartan (Sacubitril/Valsartan 1 Tab Tablet) 1 tab PO BID [facility]; Protocol Last Admin: 06/13/22 08:14 Dose: 1 tab Sodium Chloride (0.9 % Sodium Chloride Flush 3 Ml Syringe) 3 ml IVFLUSH QSHIFT [facility] Last Admin: 06/13/22 08:23 Dose: 3 ml Tamsulosin HCl (Tamsulosin Hcl 0.4 Mg Capsule) 0.4 mg PO DAILY [facility] Last Admin: 06/13/22 08:15 Dose: 0.4 mg Timolol Maleate (Timolol Maleate 0.5 % Oph Thalia 5 Ml Drbtl) 1 drop EYE-BOTH BID [facility] Last Admin: 06/13/22 08:23 Dose: 1 drop Home Medications Medication Instructions Recorded Confirmed Last Taken Type brimonidine 0.2 %-timolol 0.5 % 1 drp ophthalmic (eye) BID 03/08/21 06/10/22 03/24/22 History eye drops (Combigan) travoprost 0.004 % eye drops 1 drp ophthalmic (eye) BEDTIME 03/08/21 06/10/22 03/24/22 History omeprazole 40 mg capsule,delayed 40 mg PO DAILY@0630 03/25/22 06/10/22 04/14/22 History release Physical Exam Vital Signs: Vital Signs: Last Vital Signs Temp 98 F 04/04/23 06:54 Pulse 84 06/13/22 08:52 Resp 20 06/13/22 07:52 BP 104/54 L 06/13/22 06:54 Pulse Ox 96 06/13/22 06:54 O2 Del Method Nasal Cannula 06/13/22 06:54 O2 Flow Rate 3 06/13/22 03:41 Oxygen Flow Rate 7 06/10/22 01:43 BMI result Body Mass Index 25.1 Const: General: comfortable, no acute distress, alert and awake Orientation/consciousness: patient oriented x3 HEENT: Head: Yes normal to inspection General nose exam: No nasal polyps present and No nasal discharge present Face and sinus: Yes sinuses nontender Mouth: oropharynx normal Throat: Yes posterior oropharynx normal Eyes: General: appearance normal, both eyes and all related structures Neck: Neck: Yes normal visual inspection, Yes no lymphadenopathy, Yes trachea midline and Yes no JVD Thyroid: Thyroid normal Chest: Chest palpation & inspection: normal inspection of the chest, normal palpation of entire chest wall and no tenderness Resp: Other: Percussion note is resonant, breath sounds are distant and equal on both sides. He does have scattered inspiratory crackles over the lower lobes, no wheezes are heard. Cardio: Palpation: normal PMI Rate: regular rate Rhythm: regular rhythm Heart sounds: no gallops and no murmurs GI: Palpation (GI): Soft to palpation, nontender, No hepatosplenomegaly present and no masses Auscultation: normal bowel sounds Back/Spine/Pelvis: Thoracic/Lumbar Spine: thoracic and lumbar spine normal to inspection Skin: General skin exam: no rashes or lesions noted Neuro: General: patient oriented x3 and no focal motor deficits Cranial nerves: Yes CN's II-XII intact bilaterally Extrem: General: Yes normal to inspection, Yes no clubbing, cyanosis or edema and Yes no calf tenderness Psych: Appearance: grossly normal and well kempt Speech and movement: Normal speech and movement present Results Laboratory Findings 06/12/22 08:26 06/11/22 05:17 Abnormal lab findings: Abnormal Labs 06/10/22 06/10/22 06/10/22 02:36 02:36 05:49 WBC 12.5 H RBC 4.05 L Hgb 9.8 L Hct 32.3 L MCV 79.8 L MCH 24.2 L MCHC 30.3 L MPV 8.5 L Immature Gran % (Auto) 1.0 H Neut % (Auto) 80.6 H Lymph % (Auto) 5.1 L Lymph # (Auto) 0.6 L Eos # (Auto) 0.5 H Abs Immat Gran (auto) 0.12 H Absolute Neuts (auto) 10.1 H Anion Gap 11 L Random Glucose 128 H Calcium 8.2 L Total Protein 6.1 L Albumin 2.8 L Ur Specific [place] >= 1.030 H 06/11/22 06/11/22 06/12/22 05:17 05:17 08:26 WBC RBC 3.89 L Hgb 9.3 L 10.2 L Hct 31.0 L 34.0 L MCV 79.7 L MCH 23.9 L MCHC 30.0 L MPV 8.7 L Immature Gran % (Auto) 0.8 H Neut % (Auto) 77.9 H Lymph % (Auto) 7.6 L Lymph # (Auto) 0.8 L Eos # (Auto) Abs Immat Gran (auto) 0.08 H Absolute Neuts (auto) Anion Gap Random Glucose 122 H Calcium 8.0 L Total Protein Albumin Ur Specific [place] Diagnostic Findings Chest x-ray: report reviewed and image reviewed CT scan - chest: report reviewed and image reviewed Assessment and Plan (1) COPD (chronic obstructive pulmonary disease): Status: Acute (2) Bronchiectasis: Status: Acute (3) Bronchitis: Status: Acute (4) Pneumonia: Status: Acute Plan This gentleman with chronic pulmonary issues, including COPD, bronchiectases,, past history of COVID, recurrent pneumonia and bronchitis, has been treated for JESSA in the past, He continues to be readmitted with recurrent respiratory infections. At present he seems to have reached his baseline, The CTA of the chest does show extensive bronchiectasis with thickening of the bronchial torrez and excessive mucus, but there is no definite consolidation. He has multiple nodularities which. Seem to be inflammatory in nature Recc . Prednisone 40 mg a day with slow tapering by 10 mg per 5 days, until he is down to 5 mg a day that should be continued. DuoNeb updrafts Q 6 hours while awake at home. May resume doxycycline 100 mg on Sunday and Fridays. May resume tobramycin via nebulizer daily. Needs to be followed up closely as outpatient. Thank you very much for asking me to see this patient. Time Spent With Patient Time: Total time managing care of this patient today ____ minutes. Procedures Date of Service Date of Service: 06/12/22
--- NOTE | 2022-06-13 10:27 | PM.DS ---
DS: Providers Provider Date of Service: 06/13/22 Date of admission: 06/10/22 10:35 Primary care physician: Unknown Physician Consults: 06/11/22 09:16 Consult to Pulmonology Routine Consulting Provider: [facility] Reason for consultation: Acute bronchiectasis Has provider been notified: No 06/13/22 07:22 Consult to Pulmonology Routine Consulting Provider: [facility] Reason for consultation: bronchiectasis Has provider been notified: No DS: Diagnosis Discharge Diagnosis (1) Pneumonia: Status: Acute DS: Summary Hospital Course Hospital Course: 81-year-old man presenting with increased shortness of breath over the last 24 hours.? He has a history bronchiectases and has frequent exacerbations.? Was discharged on June 03 treated for the same.? He reports that he has a lot of phlegm in his upper airway and feels that he can not get it out.? He denies fever, chills, nausea, vomiting, diarrhea, chest pain.? Denies any recent travel or sick contacts.? White blood cell count elevated 12.5 however this seems chronic and he was recently on steroids, chronic anemia, noted elevated D-dimer with negative CTA.? He was given albuterol, prednisone, Robitussin and omeprazole.? He will be admitted for further management and treatment of acute bronchiectases. Acute bronchiectasis exacerbation. Treated with IV Solu-Medrol then switched to oral prednisone, scheduled DuoNebs, supplemental oxygen. Mucinex for dry cough, Tessalon Perles and Robitussin. Previously completed antibiotic on 06/07/2022 therefore did not treat with antibiotics while inpatient. Seen evaluated by pulmonology no further work up with this time. on home oxygen. Home with slow prednisone taper 28 days BPH Continue home medication Heart failure with preserved ejection fraction Continue Entresto No exacerbation microcytic anemia, non blood loss, chronic stable HH Nonischemic cardiomyopathy Continue beta-marika Glaucoma Continue home medications Paroxysmal atrial fibrillation, rate controlled Continue beta-marika and Eliquis Time Spent with Patient Time attestation: Total time managing care of this patient today ____ minutes. Discharge coordination time: Greater than 30 minutes Quality: Safe Use of Opioids Does Pt have an Active Cancer Diagnosis on the Problem List?: No Quality: Stroke Does the patient have a stroke diagnosis?: No Physical Exam Vital Signs: Vital Signs: Last Vital Signs Temp 98 F 06/13/22 06:54 Pulse 84 06/13/22 08:52 Resp 20 06/13/22 07:52 BP 104/54 L 06/13/22 06:54 Pulse Ox 96 06/13/22 06:54 O2 Del Method Nasal Cannula 06/13/22 06:54 O2 Flow Rate 3 06/13/22 03:41 Oxygen Flow Rate 7 06/10/22 01:43 BMI result Body Mass Index 25.1 Appearing in no acute distress head is normocephalic atraumatic eyes pupils are PERRLA sclera is anicteric mouth throat mucous membranes are intact and moist neck is supple no lymphadenopathy, no JVD noted lung sounds are clear to auscultation heart regular rate rhythm, clear S1, S2 positive bowel sounds, abdomen is soft, nontender neuro patient is alert x3, no focal deficits DS: Data Data Completed and Pending Completed studies during hospitalization [Text1]: Procedures Insertion of Infusion Device into Left Brachial Vein, Percutaneous Approach (05/25/22) Insertion of Infusion Device into Right Cephalic Vein, Percutaneous Approach (12/07/21) Insertion of Infusion Device into Superior Vena Cava, Percutaneous Approach (12/07/21) Ultrasonography of Superior Vena Cava, Guidance (12/07/21) Discharge Plan Discharge Anticipated Discharge Date/Time: 06/13/22 10:18 Patient Disposition: Home Health Service Discharge Diagnosis: Bronchiectases exacerbation Discharge Medications: New benzonatate 100 mg Capsule 100 mg PO TID PRN (Reason: Cough) Qty: 12 0RF prednisone 10 mg tablet See Taper PO DIRECTED Qty: 60 0RF Taper: Prednisone 40 mg daily for 7 Days and 0 Hour 30 mg daily for 7 Days and 0 Hour 20 mg daily for 7 Days and 0 Hour 10 mg daily for 7 Days and 0 Hour Rx Instructions: see taper instructions Continued Entresto 24-26 mg tablet 1 tab PO BID 90 Days Qty: 180 3RF lovastatin 10 mg tablet 10 mg PO DAILY 90 Days Qty: 90 3RF (KRISTINE) sarbjit Anderson See Rx Instructions .Route Qty: 1 0RF Patient Comments: Pt states doesnot use Rx Instructions: with seat and wheels albuterol sulfate 90 mcg/actuation HFA aerosol inhaler 2 puff inhalation Q4H PRN (Reason: shortness of breath or wheezing) Qty: 8.5 4RF tamsulosin 0.4 mg capsule 0.4 mg PO DAILY Qty: 30 0RF Eliquis 5 mg tablet 5 mg PO BID 90 Days Qty: 180 1RF docusate sodium 100 mg capsule 100 mg PO BID Qty: 60 0RF ipratropium-albuterol 0.5 mg-3 mg(2.5 mg base)/3 mL solution for nebulization 3 ml inhalation QID Qty: 120 11RF bumetanide 1 mg tablet 1 mg PO DAILY 30 Days Qty: 30 0RF carvedilol 12.5 mg tablet 12.5 mg PO BID Qty: 60 0RF Protocol: Hold for SBP/HR < HOLD for SBP < : 90 HOLD for HR < : 60 travoprost 0.004 % drops 1 drp ophthalmic (eye) BEDTIME Rx Instructions: instill 1 drop into both eyes brimonidine-timolol [Combigan] 0.2-0.5 % drops 1 drp ophthalmic (eye) BID loratadine 10 mg Tablet 10 mg PO DAILY Qty: 10 0RF omeprazole 40 mg capsule,delayed release(DR/EC) 40 mg PO DAILY@0630 finasteride [Proscar] 5 mg tablet 5 mg PO DAILY 90 Days Qty: 90 3RF prednisone 5 mg tablet 5 mg PO DAILY 30 Days Qty: 30 6RF Discontinued ertapenem 1 gram recon soln 1 g IM DAILY Qty: 4 0RF Rx Instructions: continue ertapenem (end date 06/07/22). Discharge Orders: Discharge Order (Routine); Ordered 06/13/22 Ordered By: Chrissy Lopez Diet: Advance to usual diet Activity on Discharge: As tolerated Stand Alone Forms: Patient Portal Discharge page Care Plan Goals: Complete resolution of symptoms Health Concerns: Bronchiectases exacerbation Plan of Treatment: Follow-up with primary care provider as needed Take all medications as prescribed Assessment: See discharge summary
[2022-06-13 11:34] VITALS: PULSE 85; RESP 20; O2SAT 95
--- NOTE | 2022-06-13 11:52 | MHC.CM.PN ---
Male 81 DX Bronchiectases discharged today to home. [facility] will resume services. 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
== END 2022-06-13 13:44 | disposition home health service (06) | DRG 191 ==
LOC: HO.ED 07:18 → HO.EDOVER 10:56 → HO.S3 12:23
PROVIDERS: Admitting Provider Nurse Practitioner Acute Care; Emergency Provider Emergency Medicine; PCP Internal Medicine; Visit Provider Nurse Practitioner Acute Care
DX: J47.1 Bronchiectasis with (acute) exacerbation (principal); I42.8 Other cardiomyopathies; I50.32 Chronic diastolic (congestive) heart failure; I48.0 Paroxysmal atrial fibrillation; H40.9 Unspecified glaucoma; E78.00 Pure hypercholesterolemia, unspecified; N40.0 Benign prostatic hyperplasia without lower urinary tract symptoms; D50.9 Iron deficiency anemia, unspecified; Z20.822 Contact with and (suspected) exposure to COVID-19; Z87.891 Personal history of nicotine dependence; Z88.0 Allergy status to penicillin; Z88.8 Allergy status to other drugs, medicaments and biological substances; Z79.2 Long term (current) use of antibiotics; Z79.01 Long term (current) use of anticoagulants; Z79.52 Long term (current) use of systemic steroids; Z79.899 Other long term (current) drug therapy
CPT/HCPCS: 0241U; 36415; 71045; 71275; 80048; 80076; 81003; 83690; 83880; 84484; 85014; 85018; 85025; 85379; 93005; 94640; 97161; 99285; Q9967

== ENCOUNTER → 2022-07-13 12:57 | Outpatient (BNVA) | payer MEDICARE, MEDICAID, SELFPAY | PROVIDERS: PCP Internal Medicine; Visit Provider Internal Medicine Pulmonary Disease | DX: J47.9 Bronchiectasis, uncomplicated (principal); Z99.81 Dependence on supplemental oxygen | CPT/HCPCS: 99212 ==

== ENCOUNTER → 2022-07-19 10:43 | Outpatient (BNVA) | payer MEDICARE, MEDICAID, SELFPAY | PROVIDERS: PCP Internal Medicine; Visit Provider Surgery | DX: K40.90 Unilateral inguinal hernia, without obstruction or gangrene, not specified as recurrent (principal) | CPT/HCPCS: 99202 ==

== ENCOUNTER → 2022-07-21 10:47 | Outpatient (BNVA) | payer MEDICARE, MEDICAID, SELFPAY | PROVIDERS: PCP Internal Medicine; Visit Provider Surgery | DX: J44.9 Chronic obstructive pulmonary disease, unspecified (principal); Z99.81 Dependence on supplemental oxygen | CPT/HCPCS: 99212 ==

== ENCOUNTER 2022-07-27 14:06 | Outpatient (REF) | payer MEDICARE, MEDICAID, SELFPAY | END 2022-07-27 14:07 | disposition home or self-care (01) | LOC: HO.LAB 14:06 | PROVIDERS: PCP Internal Medicine; Visit Provider Internal Medicine Pulmonary Disease | DX: N39.0 Urinary tract infection, site not specified (principal); R31.9 Hematuria, unspecified; R33.9 Retention of urine, unspecified; N40.1 Benign prostatic hyperplasia with lower urinary tract symptoms; A49.9 Bacterial infection, unspecified; J47.9 Bronchiectasis, uncomplicated; Z16.12 Extended spectrum beta lactamase (ESBL) resistance; Z86.19 Personal history of other infectious and parasitic diseases; Z99.81 Dependence on supplemental oxygen | CPT/HCPCS: 51798; 87086; 99212 ==

== ENCOUNTER → 2022-07-28 14:43 | Outpatient (BNVA) | payer MEDICARE, MEDICAID, SELFPAY | PROVIDERS: PCP Internal Medicine; Visit Provider Urology | DX: R31.9 Hematuria, unspecified (principal); N40.1 Benign prostatic hyperplasia with lower urinary tract symptoms; R33.8 Other retention of urine; N39.0 Urinary tract infection, site not specified; A49.9 Bacterial infection, unspecified; Z16.12 Extended spectrum beta lactamase (ESBL) resistance; Z79.899 Other long term (current) drug therapy | CPT/HCPCS: Q3014 ==

== ENCOUNTER 2022-08-18 11:45 | Outpatient (REF) | payer MEDICARE, MEDICAID, SELFPAY ==
[2022-08-18 12:00] LABS: MANUAL DIFF FLAG NO
[2022-08-18 12:18] LABS: Basophils Percent Auto 0.3 % (0-2); Eosinophils Absolute Auto 0.5 X10*3/uL (0.0-0.4); Eosinophils Percent Auto 3.8 % (0-4); Hematocrit 38.3 % (42.0-52.0); Hemoglobin 11.2 g/dl (14.0-18.0); Imm Gran Abs Auto 0.05 X10*3/uL (0.00-0.03); Imm Gran Pct Auto 0.4 % (0.0-0.4); Lymphocytes Absolute Auto 0.7 X10*3/uL (1.2-4.9); Lymphocytes Percent Auto 4.6 % (20-40); Mean Corpuscular HGB Conc 29.2 g/dl (31.0-36.0); Mean Corpuscular Hemoglobin 23.7 pg (27.0-33.0); Mean Corpuscular Volume 81.1 fL (80.0-98.0); Mean Platelet Volume 9.3 fL (9.4-12.4); Monocytes Absolute Auto 0.6 X10*3/uL (0.1-1.2); Monocytes Percent Auto 4.3 % (2-11); Neutrophils Absolute Auto 12.2 x10*3/uL (2.0-8.3); Neutrophils Percent Auto 86.6 % (45-73); Platelet Count 316 X10*3/uL (160-400); Red Blood Count 4.72 X10*6/uL (4.60-5.80); White Blood Count 14.1 X10*3/uL (4.8-10.8)
[2022-08-18 12:22] LABS: Appearance Urine Clear; Color Urine Yellow; Glucose Urine UA Negative (Negative); Leukocyte Esterase Urine Negative (Negative); Nitrite Urine Negative (Negative); UMIC TRIGGER UACC YES; Urine Blood Small (1+) (Negative); Urine Ketones Negative (Negative); Urine Protein Negative (Neg-Trace)
[2022-08-18 12:28] LABS: Bacteria Urine None Seen (None Seen); Hyaline Casts Urine 0-2 /LPF (0-2); Squamous Epithelial Cell Urine 0-2 /HPF (0-2); WBC Urine 0-5 /HPF (0-5)
[2022-08-18 12:41] LABS: Estimated Average Glucose 140 mg/dL; Hemoglobin A1c % 6.5 %
== END 2022-08-18 11:46 | disposition home or self-care (01) ==
LOC: HO.LAB 11:45
PROVIDERS: Nurse Practitioner Family; PCP Internal Medicine; Visit Provider Physician Assistant
DX: Z13.0 Encounter for screening for diseases of the blood and blood-forming organs and certain disorders involving the immune mechanism (principal); R73.01 Impaired fasting glucose
CPT/HCPCS: 36415; 81001; 83036; 85025; 85027

== ENCOUNTER 2022-08-28 06:34 | Day surgery (SDC) | payer MEDICARE, MEDICAID, SELFPAY ==
--- NOTE | 2022-08-18 14:16 | P.CONAN_ITS ---
Documented by User: Maile Mota NP 08/25/22 10:09 HPI - Anesthesia Eval Consult details Narrative: 82yo M for Left Hernia Repair Incisional with mesh Supplemental O2 2-4L. Prednisone 5mg daily Case reviewed with Dr Da Silva. Discussed with Dr Duenas. Plan for MAC anesthesia, but pt should tolerate GA if needed without any further preop treatment/optimization. Last in office pulmo eval 07/27/22: Mild bronchiectasis exac, tx with levofloxacin. COPD at baseline. Cardiac cleared 03/2022 for lung volume reduction surgery vs endotracheal valves with Dr Wilkerson. (Currently on hold while patient weighs risks/benefits) Eliquis for afib. Ok to hold 2 days PMFSH Active Problems Active Problems: All Active Problems (Updated 07/27/22 @ 15:45 by Brent Duenas MD) Reducible left inguinal hernia (Acute) Medicare annual wellness visit, initial (Acute) Bifascicular block (Acute) Pneumothorax (Acute) Acute respiratory failure with hypoxia (Acute) Bronchitis (Acute) Persistent cough (Acute) COVID-19 (Acute) Medicare annual wellness visit, subsequent (Acute) UTI (urinary tract infection) (Acute) Kidney stone on left side (Acute) Preoperative cardiovascular examination (Acute) Loss of balance (Acute) Lumbar degenerative disc disease (Acute) Multifocal pneumonia (Acute) Elevated fasting glucose (Acute) Emphysema with chronic bronchitis (Acute) History of MAC infection (Acute) COPD (chronic obstructive pulmonary disease) (Acute) Bronchiectasis (Acute) Supplemental oxygen dependent (Acute) Paroxysmal atrial fibrillation (Acute) GERD (gastroesophageal reflux disease) (Acute) Pure hypercholesterolemia (Acute) Hernia (Acute) Past Medical History Medical History (Updated 08/23/22 @ 14:10 by RAMU Padgett) Acute and chronic respiratory failure BPH loc w urin obs/LUTS Bronchiectasis Congestive heart failure COPD (chronic obstructive pulmonary disease) Diabetes Dysuria ESBL (extended spectrum beta-lactamase) producing bacteria infection Essential hypertension GERD (gastroesophageal reflux disease) Glaucoma Hearing loss Hernia History of MAC infection Kidney stone on left side JESSA (mycobacterium avium-intracellulare) NICM (nonischemic cardiomyopathy) Paroxysmal atrial fibrillation Pure hypercholesterolemia Supplemental oxygen dependent Urinary retention Family History Family History Father No problems noted. Mother Medical history unknown Sister Diabetes Daughter In good health Son In good health Brother No problems noted. Family history of problems with anesthesia: No Surgical History Surgical History (Updated 08/18/22 @ 14:13 by Beulah Miranda RN) History of bronchoscopy History of colonoscopy History of cystoscopy History of lumbar surgery History of rectal polypectomy History of Problems with Anesthesia: No Social History Social History Household Members: None Housing: Other Are you a primary lpn care manager to a significant other at home: No Do you presently have visiting nurse or other home services: Yes Alcohol intake: never Patient Tobacco Use Status: Former Tobacco user Quit Date: 2012 Tobacco use type: Cigarette e-Cigarette/Vaping Use: Never Used Second Hand Smoke Exposure: No Advance Directives Date on File: 07/12/21 service: No Current occupational status: retired Cognitive needs: No Hearing needs: Yes Vision needs: Yes Narrative Narrative: No recent illness. COPD at baseline with SOB/occasional cough. Chronic O2 @ 2-4L via NC. No CP. Meds Allergies Allergy/AdvReac Type Severity Reaction Status Date / Time Penicillins [PENICILLINS] Allergy Intermediate PASSED Verified 07/27/22 15:06 OUT trazodone Allergy Intermediate tremors Verified 07/27/22 15:06 Home Medications Medication Instructions Recorded Confirmed Last Taken Type brimonidine 0.2 %-timolol 0.5 % 1 drp ophthalmic (eye) BID 03/08/21 08/18/22 03/24/22 History eye drops (Combigan) travoprost 0.004 % eye drops 1 drp ophthalmic (eye) BEDTIME 03/08/21 08/18/22 03/24/22 History omeprazole 40 mg capsule,delayed 40 mg PO DAILY@0630 03/25/22 08/18/22 08/28/22 History release prednisone 5 mg tablet 5 mg PO DAILY 08/21/22 08/21/22 Unknown History Exam Exam Date and Time: August 18, 2022 1416 Pertinent Lab Results Pertinent Lab Results: Laboratory Tests 06/11/22 08/18/22 05:17 11:59 WBC 14.1 H Hgb 11.2 L Hct 38.3 L Plt Count 316 Sodium 138 Potassium 4.0 Chloride 101 Carbon Dioxide 27 BUN 9 Creatinine 0.67 Narrative Narrative: EKG 06/2022 Vent. Rate : 094 BPM ? ? Atrial Rate : 094 BPM ?? P-R Int : 130 ms? QRS Dur : 128 ms ? ? QT Int : 382 ms ? ? ? P-R-T Axes : 065 -35 012 degrees ?? QTc Int : 477 ms ? Normal sinus rhythm Left axis deviation Right bundle branch block Abnormal ECG When compared with ECG of 25-MAY-2022 12:53, No significant change was found ECHO 2021 Conclusions: - Normal left ventricular cavity size.? There is mildly increased left ventricular wall thickness.? The left ventricular systolic? function is low normal.? The visually estimated ejection fraction is between 50-55%. ? - Normal right ventricular cavity size and systolic function.? ? - Technically very limited study.? Airway Mallampati Class: II TM Dist: >3cm Denture: Upper and Lower Heart: RRR Lungs: Coarse throughout with inspiratory wheezes on RUL & RLL Assessment and Plan Assessment Anesthesia Assessment: Anesthesia Plan Discussed and PAT Visit Final Anesthetic Review Family History of Problems with Anesthesia: No History of Problems with Anesthesia: No Documented by User: Dipak Santaigo MD 08/28/22 17:28 [facility] Past Medical History Medical History (Updated 08/23/22 @ 14:10 by RAMU Padgett) Acute and chronic respiratory failure BPH loc w urin obs/LUTS Bronchiectasis Congestive heart failure COPD (chronic obstructive pulmonary disease) Diabetes Dysuria ESBL (extended spectrum beta-lactamase) producing bacteria infection Essential hypertension GERD (gastroesophageal reflux disease) Glaucoma Hearing loss Hernia History of MAC infection Kidney stone on left side JESSA (mycobacterium avium-intracellulare) NICM (nonischemic cardiomyopathy) Paroxysmal atrial fibrillation Pure hypercholesterolemia Supplemental oxygen dependent Urinary retention Family History Family History Father No problems noted. Mother Medical history unknown Sister Diabetes Daughter In good health Son In good health Brother No problems noted. Surgical History Surgical History (Updated 08/18/22 @ 14:13 by Beulah Miranda RN) History of bronchoscopy History of colonoscopy History of cystoscopy History of lumbar surgery History of rectal polypectomy Social History Social History Household Members: None Housing: Other Are you a primary lpn care manager to a significant other at home: No Do you presently have visiting nurse or other home services: Yes Alcohol intake: never Patient Tobacco Use Status: Former Tobacco user Quit Date: 2012 Tobacco use type: Cigarette e-Cigarette/Vaping Use: Never Used Second Hand Smoke Exposure: No Advance Directives Date on File: 07/12/21 service: No Current occupational status: retired Cognitive needs: No Hearing needs: Yes Vision needs: Yes Meds Allergies Allergy/AdvReac Type Severity Reaction Status Date / Time Penicillins [PENICILLINS] Allergy Intermediate PASSED Verified 07/27/22 15:06 OUT trazodone Allergy Intermediate tremors Verified 07/27/22 15:06 Home Medications Medication Instructions Recorded Confirmed Last Taken Type brimonidine 0.2 %-timolol 0.5 % 1 drp ophthalmic (eye) BID 03/08/21 08/18/22 03/24/22 History eye drops (Combigan) travoprost 0.004 % eye drops 1 drp ophthalmic (eye) BEDTIME 03/08/21 08/18/22 03/24/22 History omeprazole 40 mg capsule,delayed 40 mg PO DAILY@0630 03/25/22 08/18/22 08/28/22 History release prednisone 5 mg tablet 5 mg PO DAILY 08/21/22 08/21/22 Unknown History Assessment and Plan Assessment Anesthesia Assessment: Chart Reviewed Final Anesthetic Review NPO: Yes ASA Class: IV Final Preanesthetic Review: Meds/Allgs Chart Reviewed, Consent Obtained/Reviewed and Anes Risks/Benef Reviewed Patient Risk: High Procedure Risk: Intermediate Anesthetic Plan Anesthetic Plan: MAC: Disposition: Standard PACU
[2022-08-21 11:53] VITALS: BMI 24.2
[2022-08-21 12:05] VITALS: BP 97/56; PULSE 84; RESP 26; O2SAT 99
--- NOTE | 2022-08-25 12:38 | MHC.SHP ---
Pre-Procedural Eval Section A Date of Service: 08/25/22 The patient is an INPATIENT: No Changes since office visit: No Cold of Flu in the past 2 weeks, No New Medical Problems, No Changes in Medication and No Patient answered all questions The History & Physical has been completed within 30 days and I have reviewed it.: Yes Section B Chief Complaint: Unilateral inguinal hernia, without obstruction Allergies: Allergies Allergy/AdvReac Type Severity Reaction Status Date / Time Penicillins [PENICILLINS] Allergy Intermediate PASSED Verified 07/27/22 15:06 OUT trazodone Allergy Intermediate tremors Verified 07/27/22 15:06 Plan I have reviewed the history and physical and performed a pertinent physical examination on my patient. No changes have occurred unless specified. Time Spent With Patient Time: Total time managing care of this patient today ____ minutes.
[2022-08-28] VITALS (8 sets, daily range): BP systolic 85–123; BP diastolic 28–66; PULSE 72–87; RESP 16–18; TEMP 36.4–36.6; O2SAT 95–100
[2022-08-28] MEDS: Albuterol Sulfate (0.083%) 2.5 MG/3 ML VIAL.NEB INHALE (07:13)
[2022-08-28] MEDS: Lactated Ringers 1,000 ML 50 ML IVCONT (07:13)
[2022-08-28 07:25] LABS: Glucose, Whole Blood 106 mg/dL (60-115)
--- NOTE | 2022-08-28 09:16 | W.PM.OPN ---
Operative Note Operative Note Date of Service: 08/28/22 Narrative: Preoperative diagnosis: [] massive left inguinal hernia Postop diagnosis: [] same Procedure [] open repair left inguinal hernia with Bard mesh Surgeon: [] Bola Palletiser Operator: [] jennifer Santillan Type of Anesthesia: [] MAC Indication for surgery: [] patient had a massive indirect left inguinal hernia. No direct hernia demonstrated. Advanced COPD and chronic respiratory issues Findings: [] patient brought to the operating room, placed on operative table supine position, after adequate level of MAC anesthesia was induced, the left groin was prepped and draped in usual sterile fashion infiltrated with 0.5% Marcaine/ 1% lidocaine. A small left para inguinal incision was made and carried down through skin, subcutaneous tissue, Veronica's fascia. External oblique fibers were opened in the direction with care to isolate and preserve the ilioinguinal and iliohypogastric nerves throughout the procedure. his medical was identified and retracted from the field. No direct hernia was demonstrated. Exploration of the cord demonstrated in the norm this indirect left inguinal hernia which was reduced. A Bard plug was placed in his indirect defect, and sutured inferiorly to the inguinal ligament and superiorly to the transversalis fascia using interrupted 0 Ethibond suture. At completion of procedure, mesh was in very good position with no tension and no gaps. Mesh also covered inguinal floor. Wounds irrigated, secured hemostasis, and closed in the following manner; external oblique fascia was closed using running 2-0 Vicryl suture. Veronica's fascia was reapproximated using interrupted 3-0 Vicryl sutures. Interrupted inverted deep dermal 3-0 Vicryl sutures followed by running subcuticular 4-0 Vicryl sutures were placed. Steri-Strips and sterile dressings were applied. Ipsilateral testicles intrascrotal at completion of the procedure. Sponge, needle, and instrument counts reported correct. Patient tolerated procedure well and emerged anesthesia stable condition. EBL minimal
== END 2022-08-28 12:17 | disposition home or self-care (01) ==
PROVIDERS: PCP Internal Medicine; Visit Provider Surgery
PROC: (CPT 49505; principal; 2022-08-28 08:40)
DX: K40.90 Unilateral inguinal hernia, without obstruction or gangrene, not specified as recurrent (principal); J44.9 Chronic obstructive pulmonary disease, unspecified; J96.20 Acute and chronic respiratory failure, unspecified whether with hypoxia or hypercapnia; A48.8 Other specified bacterial diseases; I11.0 Hypertensive heart disease with heart failure; I50.9 Heart failure, unspecified; I48.0 Paroxysmal atrial fibrillation; E78.00 Pure hypercholesterolemia, unspecified; Z99.81 Dependence on supplemental oxygen; Z79.52 Long term (current) use of systemic steroids; Z79.899 Other long term (current) drug therapy; Z88.0 Allergy status to penicillin; Z88.8 Allergy status to other drugs, medicaments and biological substances; Z87.891 Personal history of nicotine dependence
CPT/HCPCS: 49505; 82947; C1781; J2250; J3010

== ENCOUNTER → 2022-09-06 09:50 | Outpatient (BNVA) | payer MEDICARE, MEDICAID, SELFPAY | PROVIDERS: PCP Internal Medicine; Visit Provider Surgery ==

== ENCOUNTER 2022-09-07 14:10 | Outpatient (REF) | payer MEDICARE, MEDICAID, SELFPAY ==
[2022-09-07 15:18] LABS: Hematocrit 37.3 % (42.0-52.0); Hemoglobin 10.8 g/dl (14.0-18.0); Mean Corpuscular Hemoglobin 23.9 pg (27.0-33.0); Mean Corpuscular Volume 82.5 fL (80.0-98.0); Mean Platelet Volume 9.2 fL (9.4-12.4); Platelet Count 323 X10*3/uL (160-400); Red Blood Count 4.52 X10*6/uL (4.60-5.80); Red Cell Distribution Width 15.8 % (11.0-16.0)
[2022-09-07 16:02] LABS: Anion Gap 10 (12-20); Blood Urea Nitrogen 12 mg/dL (9-16); Calcium 9.1 mg/dL (8.4-10.2); Carbon Dioxide 31 mmol/L (22-29); Chloride 100 mmol/L (96-108); Estimated Glomerular Filt Rate > 60; Glucose Random 160 mg/dL (60-115); Potassium 4.4 mmol/L (3.3-5.1); Sodium 137 mmol/L (135-145)
[2022-09-07 16:12] LABS: TSH reflex Free T4 0.61 uIU/mL (0.32-4.0)
== END 2022-09-07 14:11 | disposition home or self-care (01) ==
LOC: HO.LAB 14:10
PROVIDERS: PCP Internal Medicine; Visit Provider Nurse Practitioner Family
DX: Z13.29 Encounter for screening for other suspected endocrine disorder (principal); Z13.0 Encounter for screening for diseases of the blood and blood-forming organs and certain disorders involving the immune mechanism
CPT/HCPCS: 36415; 80048; 84443; 85027

== ENCOUNTER 2022-09-18 09:29 | Day surgery (SDC) | payer MEDICARE, MEDICAID, SELFPAY ==
[2022-09-13 10:20] VITALS: BMI 25.8
--- NOTE | 2022-09-15 08:17 | MHC.SHP ---
Pre-Procedural Eval Section A Date of Service: 09/15/22 The patient is an INPATIENT: No Changes since office visit: No Cold of Flu in the past 2 weeks, No New Medical Problems, No Changes in Medication and No Patient answered all questions The History & Physical has been completed within 30 days and I have reviewed it.: Yes Section B Chief Complaint: cataract right eye,open angle glaucoma Allergies: Allergies Allergy/AdvReac Type Severity Reaction Status Date / Time Penicillins [PENICILLINS] Allergy Intermediate PASSED Verified 09/07/22 13:27 OUT trazodone Allergy Intermediate tremors Verified 09/07/22 13:27 brimonidine [From Alphagan P] Allergy Unknown Verified 09/13/22 14:06 Plan Diagnosis/Plan: Unchanged I have reviewed the history and physical and performed a pertinent physical examination on my patient. No changes have occurred unless specified. Time Spent With Patient Time: Total time managing care of this patient today ____ minutes.
--- NOTE | 2022-09-15 10:47 | HO.ANESPROP2 ---
Documented by User: Maile Mota NP 09/15/22 10:48 HPI - Anesthesia Eval Consult details Narrative: 82yo M for Right Cataract Extraction IOL Insertion, Trabeculectomy PCP cleared No previous cataract on record O2 @ 2l PMFSH Active Problems Active Problems: All Active Problems (Updated 09/13/22 @ 10:23 by Shilpi Rizo, DEANNA) Reducible left inguinal hernia (Acute) Medicare annual wellness visit, initial (Acute) Bifascicular block (Acute) Pneumothorax (Acute) Acute respiratory failure with hypoxia (Acute) Bronchitis (Acute) Persistent cough (Acute) COVID-19 (Acute) Medicare annual wellness visit, subsequent (Acute) UTI (urinary tract infection) (Acute) Kidney stone on left side (Acute) Preoperative cardiovascular examination (Acute) Loss of balance (Acute) Lumbar degenerative disc disease (Acute) Multifocal pneumonia (Acute) Elevated fasting glucose (Acute) Emphysema with chronic bronchitis (Acute) Diabetes (Acute) History of MAC infection (Acute) COPD (chronic obstructive pulmonary disease) (Acute) Bronchiectasis (Acute) Supplemental oxygen dependent (Acute) Paroxysmal atrial fibrillation (Acute) GERD (gastroesophageal reflux disease) (Acute) Pure hypercholesterolemia (Acute) Hernia (Acute) Past Medical History Medical History Acute and chronic respiratory failure BPH loc w urin obs/LUTS Bronchiectasis Cataract Congestive heart failure COPD (chronic obstructive pulmonary disease) Diabetes Dysuria ESBL (extended spectrum beta-lactamase) producing bacteria infection Essential hypertension GERD (gastroesophageal reflux disease) Glaucoma Hearing loss Hernia History of MAC infection Kidney stone on left side Left inguinal hernia (08/28/22) JESSA (mycobacterium avium-intracellulare) NICM (nonischemic cardiomyopathy) Paroxysmal atrial fibrillation Pure hypercholesterolemia Supplemental oxygen dependent Urinary retention Family History Family History Father No problems noted. Mother Medical history unknown Sister Diabetes Daughter In good health Son In good health Brother No problems noted. Family history of problems with anesthesia: No Surgical History Surgical History History of bronchoscopy History of colonoscopy History of cystoscopy History of hernia repair History of lumbar surgery History of rectal polypectomy History of Problems with Anesthesia: No Social History Social History Household Members: None Housing: Other Are you a primary critical care registered nurse to a significant other at home: No Do you presently have visiting nurse or other home services: Yes ([employer] 2 hours/day) Alcohol intake: never Patient Tobacco Use Status: Former Tobacco user Quit Date: years ago Tobacco use type: Cigarette e-Cigarette/Vaping Use: Never Used Second Hand Smoke Exposure: No Use of substances other than those prescribed or required for medical reasons: No Have you been hit, kicked, punched, or otherwise hurt by someone within the past year? If so, by whom?: No Are you DNR?: No Advance Directives: No Advance Directives Information Provided: Yes Advance Directives on File: No Advance Directives Date on File: 07/12/21 Nutrition Risks: Surgical patient >75years service: No Current occupational status: retired Cognitive needs: No Hearing needs: Yes Vision needs: Yes Meds Allergies Allergy/AdvReac Type Severity Reaction Status Date / Time Penicillins [PENICILLINS] Allergy Intermediate PASSED Verified 09/07/22 13:27 OUT trazodone Allergy Intermediate tremors Verified 09/07/22 13:27 brimonidine [From Alphagan P] Allergy Unknown Verified 09/13/22 14:06 Active Medications: Current Medications Povidone Iodine (Povidone Iodine 5 % Ophth Soln 30 Ml Bottle) 1 appl EYE-RIGHT PREOP PRN PRN Reason: Pre-Op Surgical Implant Prophy Home Medications Medication Instructions Recorded Confirmed Last Taken Type brimonidine 0.2 %-timolol 0.5 % 1 drp ophthalmic (eye) BID 03/08/21 09/13/22 03/24/22 History eye drops (Combigan) travoprost 0.004 % eye drops 1 drp ophthalmic (eye) BEDTIME 03/08/21 09/13/22 03/24/22 History omeprazole 40 mg capsule,delayed 40 mg PO DAILY@0630 03/25/22 09/13/22 08/28/22 History release prednisone 5 mg tablet 5 mg PO DAILY 08/21/22 09/13/22 09/18/22 History Exam Exam Date and Time: September 15, 2022 1047 Height,Weight and Vital Signs: Height 5 ft 6 in Weight 72.575 kg Assessment and Plan Assessment Anesthesia Assessment: Chart Reviewed Final Anesthetic Review Family History of Problems with Anesthesia: No History of Problems with Anesthesia: No Documented by User: Ashley Ashford MD 09/18/22 12:16 [facility] Past Medical History Medical History Acute and chronic respiratory failure BPH loc w urin obs/LUTS Bronchiectasis Cataract Congestive heart failure COPD (chronic obstructive pulmonary disease) Diabetes Dysuria ESBL (extended spectrum beta-lactamase) producing bacteria infection Essential hypertension GERD (gastroesophageal reflux disease) Glaucoma Hearing loss Hernia History of MAC infection Kidney stone on left side Left inguinal hernia (08/28/22) JESSA (mycobacterium avium-intracellulare) NICM (nonischemic cardiomyopathy) Paroxysmal atrial fibrillation Pure hypercholesterolemia Supplemental oxygen dependent Urinary retention Family History Family History Father No problems noted. Mother Medical history unknown Sister Diabetes Daughter In good health Son In good health Brother No problems noted. Surgical History Surgical History History of bronchoscopy History of colonoscopy History of cystoscopy History of hernia repair History of lumbar surgery History of rectal polypectomy Social History Social History Household Members: None Housing: Other Are you a primary critical care registered nurse to a significant other at home: No Do you presently have visiting nurse or other home services: Yes ([employer] 2 hours/day) Alcohol intake: never Patient Tobacco Use Status: Former Tobacco user Quit Date: years ago Tobacco use type: Cigarette e-Cigarette/Vaping Use: Never Used Second Hand Smoke Exposure: No Use of substances other than those prescribed or required for medical reasons: No Have you been hit, kicked, punched, or otherwise hurt by someone within the past year? If so, by whom?: No Are you DNR?: No Advance Directives: No Advance Directives Information Provided: Yes Advance Directives on File: No Advance Directives Date on File: 07/12/21 Nutrition Risks: Surgical patient >75years service: No Current occupational status: retired Cognitive needs: No Hearing needs: Yes Vision needs: Yes Meds Allergies Allergy/AdvReac Type Severity Reaction Status Date / Time Penicillins [PENICILLINS] Allergy Intermediate PASSED Verified 09/07/22 13:27 OUT trazodone Allergy Intermediate tremors Verified 09/07/22 13:27 brimonidine [From Alphagan P] Allergy Unknown Verified 09/13/22 14:06 Home Medications Medication Instructions Recorded Confirmed Last Taken Type brimonidine 0.2 %-timolol 0.5 % 1 drp ophthalmic (eye) BID 03/08/21 09/13/22 03/24/22 History eye drops (Combigan) travoprost 0.004 % eye drops 1 drp ophthalmic (eye) BEDTIME 03/08/21 09/13/22 03/24/22 History omeprazole 40 mg capsule,delayed 40 mg PO DAILY@0630 03/25/22 09/13/22 08/28/22 History release prednisone 5 mg tablet 5 mg PO DAILY 08/21/22 09/13/22 09/18/22 History Exam Airway Mallampati Class: III TM Dist: >3cm Neck ROM: Full Denture: Upper Loose/Missing/Broken Teeth: Yes Heart: RRR Lungs: Apical crackles, otherwise CTA Assessment and Plan Assessment Anesthesia Assessment: Anesthesia Plan Discussed Final Anesthetic Review NPO: Yes ASA Class: IV Final Preanesthetic Review: Meds/Allgs Chart Reviewed, Consent Obtained/Reviewed and Anes Risks/Benef Reviewed Patient Risk: High Procedure Risk: Low Anesthetic Plan Anesthetic Plan: MAC: Disposition: Standard PACU
[2022-09-18 11:51] VITALS: BP 135/90; PULSE 81; RESP 18; TEMP 36.6; O2SAT 94
[2022-09-18 12:02] VITALS: BMI 25.8
[2022-09-18 12:11] LABS: Glucose, Whole Blood 140 mg/dL (60-115)
--- NOTE | 2022-09-18 12:31 | HO.PNOPHT ---
Ophthalmology Procedure Procedure Date of Service: 09/18/22 Ophthalmology Viscoelastic: Healalvin Duet Dual Pack Pro Ophthalmology Lenses: TECKAREN [id number] (22.5) Procedure Notes: PREOPERATIVE DIAGNOSIS: Decreased visual acuity right eye secondary to cataract and glaucoma. POSTOPERATIVE DIAGNOSIS: Same PROCEDURE: Right cataract extraction with intraocular lens insertion and trabeculectomy, right eye with Anterior Vitrectomy SURGEON: Garrett Mandel M.D. ANESTHESIA: Topical/MAC ESTIMATED BLOOD LOSS: None COMPLICATIONS: None After obtaining informed consent, the patient was brought to the operating room suite and placed in the supine position. After adequate sedation per anesthesia, topical drops of Tetracaine were given to the right eye. The eye was then prepped and draped in the usual sterile fashion. The operating room microscope was then positioned over the right eye and a lid speculum placed. 2% Lidocaine was instilled subconjunctivally. After awaiting 30 seconds, a paracentesis was created superiorly. Hemostasis was then achieved using wet field cautery. Mitomycin .4mg/ml was then placed in the conjunctival pocket and held in place for two minutes. The subconjunctival pocket was then irrigated copiously with 20 mls of BSS. Paracentesis was then created. Viscoelastic was then instilled into the anterior chamber. A crescent blade was then utilized to create a partial thickness sclera wound followed by advancement to clear cornea with the crescent blade. A keratome was then utilized to enter the anterior chamber. Capsulotomy forceps were then utilized to create a continuous circular tear capsulotomy. Hydrodissection and hydrodelineation were carried out until adequate mobilization of the nucleus occurred. Phacoemulsification was utilized to remove the dense central nucleus. A capsular tear was noted which required an anterior vitrectomm. The PCIOL was placed in the sulcus. Attention was then directed to create a trabeculectomy. A Criselda punch was then utilized to create the trabeculectomy. The residual Viscoelastic was then removed utilizing the automated IA machine. The egress of aqueous was evaluated and found to be appropriate. The conjunctiva was then closed with a 9-0 vicryl suture. BSS was then instilled into the anterior chamber creating a superior bleb, without obvious leakage. Intracameral injection of Vigamox 0.3%, 0.1 ml and subtenon injection of Kenalog-40 0.2 ml was given followed by an atropine drop. The patient tolerated the procedure well and will be followed up in the a.m.
[2022-09-18 13:20] VITALS: BP 145/73; PULSE 68; RESP 20; TEMP 36.5; O2SAT 100
[2022-09-18 13:35] VITALS: BP 128/70; PULSE 65; RESP 18; TEMP 36.5; O2SAT 98
== END 2022-09-18 13:52 | disposition home or self-care (01) ==
PROVIDERS: PCP Internal Medicine; Visit Provider Ophthalmology
PROC: (CPT 66985; principal; 2022-09-18 12:40)
PROC: (CPT 66170; 2022-09-18 12:40)
DX: H25.11 Age-related nuclear cataract, right eye (principal); H54.7 Unspecified visual loss; E78.00 Pure hypercholesterolemia, unspecified; I48.0 Paroxysmal atrial fibrillation; E11.9 Type 2 diabetes mellitus without complications; J44.9 Chronic obstructive pulmonary disease, unspecified; Z99.81 Dependence on supplemental oxygen; Z87.891 Personal history of nicotine dependence; Z79.899 Other long term (current) drug therapy; Z79.01 Long term (current) use of anticoagulants
CPT/HCPCS: 66984; 66170; 82947; 93005; J3010; J3301; J7315; V2632

== ENCOUNTER 2022-09-19 13:19 | Outpatient (AMB) | payer MEDICARE, MEDICAID, SELFPAY ==
[2022-09-19 13:35] VITALS: BP 100/60; PULSE 80; BMI 24.1
--- NOTE | 2022-09-19 13:35 | A.OFFVIS_ITS ---
Intake Vital Signs 09/19/22 13:35 Height 5 ft 6 in Weight 149 lb 0.52 oz BMI 24.1 BP 100/60 Blood Pressure Location Lt brachial Position Sitting Pulse 80 Intake Visit Reasons: 6M follow up Intake Note: 6 month follow up Research Microbiologist Required: No Research Microbiologist Name: [id number] [place] Allergies Penicillins [PENICILLINS] Allergy (Intermediate, Verified 09/19/22 13:38) PASSED OUT trazodone Allergy (Intermediate, Verified 09/19/22 13:38) tremors brimonidine [From Alphagan P] Allergy (Verified 09/19/22 13:38) Unknown Medication List - Last Reconciled 09/19/22 by Mikey Byers MD albuterol sulfate 90 mcg/actuation 2 puffs inhalation Q4H PRN Anoro Ellipta 62.5-25 mcg/actuation (umeclidinium-vilanterol) 1 inh inhalation DAILY 30 days NS apixaban (Eliquis) 5 mg PO BID 90 days benzonatate 100 mg PO TID PRN blood sugar diagnostic (FreeStyle Lite Strips) test once daily blood-glucose meter (FreeStyle Lite Meter kit) test once daily brimonidine-timolol 0.2-0.5 % (Combigan) 1 drp ophthalmic (eye) BID bumetanide 1 mg PO DAILY 30 days carvedilol 6.25 mg See Protocol PO BID 30 days docusate sodium 100 mg PO BID finasteride (Proscar) 5 mg PO DAILY 90 days hydrocodone-acetaminophen 5-325 mg 1 tab PO Q4-6H PRN ipratropium-albuterol 0.5 mg-3 mg(2.5 mg base)/3 mL 3 mL inhalation QID PRN loratadine 10 mg PO DAILY lovastatin 10 mg PO DAILY 90 days metformin ER 500 mg PO DAILY omeprazole 40 mg PO DAILY@0630 prednisone 5 mg PO DAILY sacubitril-valsartan 24-26 mg (Entresto) 1 tab PO BID tamsulosin 0.4 mg PO DAILY travoprost 0.004% 1 drp ophthalmic (eye) BEDTIME walker with seat and wheels HPI HPI Comments History of Present Illness Details Yoa is here for follow-up regarding nonischemic cardiomyopathy. In the past, based on echocardiograms he had mild nonischemic cardiomyopathy. Chronic shortness of breath is still about the same, mostly related to his pulmonary issues. He is also on supplemental oxygen. We had seen him regarding cardiac risk stratification for lung volume reduction surgery in the past. However, per patient/[employer] not performed. Not clear why. Otherwise, cardiac status is about the same. No new concerns like angina. Seems to be getting along in spite of all the above issues. [facility] Medical History Acute and chronic respiratory failure BPH loc w urin obs/LUTS Bronchiectasis Cataract Congestive heart failure COPD (chronic obstructive pulmonary disease) Diabetes Dysuria ESBL (extended spectrum beta-lactamase) producing bacteria infection Essential hypertension GERD (gastroesophageal reflux disease) Glaucoma Hearing loss Hernia History of MAC infection Kidney stone on left side Left inguinal hernia (08/28/22) JESSA (mycobacterium avium-intracellulare) NICM (nonischemic cardiomyopathy) Paroxysmal atrial fibrillation Pure hypercholesterolemia Supplemental oxygen dependent Urinary retention Surgical History History of bronchoscopy History of colonoscopy History of cystoscopy History of hernia repair History of lumbar surgery History of rectal polypectomy Family History Father No problems noted. Mother Medical history unknown Sister Diabetes Daughter In good health Son In good health Brother No problems noted. Social History Household Members: None Housing: Other Are you a primary wound care specialist to a significant other at home: No Do you presently have visiting nurse or other home services: Yes ([employer] 2 hours/day) Alcohol intake: never Patient Tobacco Use Status: Former Tobacco user Quit Date: years ago Tobacco use type: Cigarette e-Cigarette/Vaping Use: Never Used Second Hand Smoke Exposure: No Advance Directives Date on File: 07/12/21 service: No Current occupational status: retired Cognitive needs: No Hearing needs: Yes Vision needs: Yes Review of Systems Const Denies weakness ENT Denies dizziness Card Denies chest pain, Denies chest pain with activity, Denies syncope, Denies rapid heart rate, Denies pedal edema, Denies edema, Denies leg edema, Denies lightheadedness, Denies palpitations, Denies dyspnea, Denies dyspnea on exertion and Denies orthopnea Resp Denies cough, Denies dyspnea and Denies dyspnea on exertion GI Denies hematochezia and Denies change in stool character Musc Denies abnormal gait, Denies muscle cramps, Denies muscle weakness, Denies numbness, Denies radiating pain into limb and Denies tingling Neuro Denies abnormal gait, Denies dizziness, Denies syncope, Denies numbness, Denies tingling and Denies weakness Endo Denies palpitations Physical Exam Vital Signs: Last Vital Signs Pulse 80 09/19/22 13:35 BP 100/60 09/19/22 13:35 BMI result Body Mass Index 24.1 Const General: comfortable and no acute distress Orientation/consciousness: patient oriented x3 HEENT Other: Unremarkable Head: Yes normal to inspection Neck Neck: Yes normal visual inspection Chest Chest palpation & inspection: normal inspection of the chest Resp Auscultation: crackles and diminished lung sounds Cardio Palpation: normal PMI Heart sounds: S1 normal heart sound present, S2 normal heart sound present, no gallops, no murmurs and no rubs GI Palpation (GI): Soft to palpation Back/Spine/Pelvis Other: unremarkable Skin General skin exam: no rashes or lesions noted Neuro General: patient oriented x3 Extrem General: Yes normal to inspection Psych Mental Status: mental status grossly normal Assessment & Plan Assessment & Plan (1) NICM (nonischemic cardiomyopathy): Comment: follows w/HCS Code(s): I42.8 - Other cardiomyopathies Plan: Cardiac studies reviewed. Variable LVEF on echocardiograms. In study from 2021, it was 50-55%. Previou sly, various values including 45-50%, 35-40%, 40-45% at different times. Hence somewhat variable. Myocardial perfusion imaging without any significant ischemia; probable infarct of the apical inferior wall versus artifactual. Cardiac BNP levels have been essentially normal range. Hence shortness of breath is not likely to be cardiac in nature. He remains on carvedilol and Entresto. No changes. (2) Paroxysmal atrial fibrillation: Comment: taking eliquis Code(s): I48.0 - Paroxysmal atrial fibrillation Plan: This was noted during recent hospitalization. Continue beta-blockers. Continue Eliquis. He has had hemoptysis in the past, and if any major recurrence, will need to reassess. (3) Bifascicular block: Code(s): I45.2 - Bifascicular block Plan: Will need to be monitored for any progressive conduction system disease. (4) Supplemental oxygen dependent: Code(s): Z99.81 - Dependence on supplemental oxygen Plan Discussed with [employer]. Total time spent including review of hospitalization records, counseling, documentation, coordination of care-31 minutes. Medications: Changed From hydrocodone-acetaminophen 5-325 mg Partial Fill upon patient request. 1 tab PO Q4-6H PRN 30 tabs 0RF pain To hydrocodone-acetaminophen 5-325 mg Partial Fill upon patient request. 1 tab PO Q4-6H PRN pain Discontinued prednisone 5 mg PO BID 30 days 60 tabs 2RF Coding Level of Care Code Est Pt Level 4 (47552) Diagnoses NICM (nonischemic cardiomyopathy) I42.8 Paroxysmal atrial fibrillation I48.0 Bifascicular block I45.2 Supplemental oxygen dependent Z99.81
== END 2022-09-19 13:58 | disposition home or self-care (01) ==
PROVIDERS: Visit Provider Internal Medicine
DX: I42.8 Other cardiomyopathies (principal); I48.0 Paroxysmal atrial fibrillation; I45.2 Bifascicular block; Z99.81 Dependence on supplemental oxygen
CPT/HCPCS: 99214

== ENCOUNTER → 2022-09-19 13:19 | Outpatient (BNVA) | payer MEDICARE, MEDICAID, SELFPAY | PROVIDERS: Visit Provider Internal Medicine | DX: I42.8 Other cardiomyopathies (principal); I48.0 Paroxysmal atrial fibrillation; I45.2 Bifascicular block; Z99.81 Dependence on supplemental oxygen | CPT/HCPCS: 99212 ==

== ENCOUNTER 2022-10-02 09:39 | Day surgery (SDC) | payer MEDICARE, MEDICAID, SELFPAY ==
[2022-09-13 10:23] VITALS: BMI 25.8
--- NOTE | 2022-09-29 08:13 | MHC.SHP ---
Pre-Procedural Eval Section A Date of Service: 09/29/22 The patient is an INPATIENT: No Changes since office visit: No Cold of Flu in the past 2 weeks, No New Medical Problems, No Changes in Medication and No Patient answered all questions The History & Physical has been completed within 30 days and I have reviewed it.: Yes Section B Chief Complaint: cararact left eye,open angle glaucoma Allergies: Allergies Allergy/AdvReac Type Severity Reaction Status Date / Time Penicillins [PENICILLINS] Allergy Intermediate PASSED Verified 09/19/22 13:38 OUT trazodone Allergy Intermediate tremors Verified 09/19/22 13:38 brimonidine [From Alphagan P] Allergy Unknown Verified 09/19/22 13:38 Plan Diagnosis/Plan: Unchanged I have reviewed the history and physical and performed a pertinent physical examination on my patient. No changes have occurred unless specified. Time Spent With Patient Time: Total time managing care of this patient today ____ minutes.
--- NOTE | 2022-09-29 15:01 | HO.ANESPROP2 ---
HPI - Anesthesia Eval Consult details Narrative: 82yo M for Left Cataract Extraction IOL Trabeculectomy PCP cleared Supplemental O2 2-4L. Prednisone 5mg daily (Pending lung volume reduction surgery with Dr Wilkerson) Right eye 09/18/22: Fent 50 Eliquis for afib PMFSH Active Problems Active Problems: All Active Problems (Updated 09/28/22 @ 09:45 by Rosina Franklin PA-C) COPD (chronic obstructive pulmonary disease) (Acute) Emphysema with chronic bronchitis (Acute) Supplemental oxygen dependent (Acute) Bronchiectasis (Acute) Bronchitis (Acute) NICM (nonischemic cardiomyopathy) (Acute) Bifascicular block (Acute) Paroxysmal atrial fibrillation (Acute) Chronic anticoagulation (Acute) Essential hypertension (Acute) Pure hypercholesterolemia (Acute) Diabetes (Acute) GERD (gastroesophageal reflux disease) (Acute) Kidney stone on left side (Acute) Loss of balance (Acute) Lumbar degenerative disc disease (Acute) Past Medical History Medical History (Updated 09/28/22 @ 09:45 by Rosina Franklin PA-C) Acute and chronic respiratory failure BPH loc w urin obs/LUTS Bronchiectasis Chronic anticoagulation Congestive heart failure COPD (chronic obstructive pulmonary disease) Diabetes Essential hypertension GERD (gastroesophageal reflux disease) Glaucoma Hearing loss History of COVID-19 History of MAC infection History of pneumothorax Kidney stone on left side JESSA (mycobacterium avium-intracellulare) NICM (nonischemic cardiomyopathy) Paroxysmal atrial fibrillation Pure hypercholesterolemia Supplemental oxygen dependent Urinary retention Family History Family History Father No problems noted. Mother Medical history unknown Sister Diabetes Daughter In good health Son In good health Brother No problems noted. Family history of problems with anesthesia: No Surgical History Surgical History (Updated 09/28/22 @ 09:45 by Rosina Franklin PA-C) History of bronchoscopy History of cataract surgery History of colonoscopy History of cystoscopy History of left inguinal hernia repair History of lumbar surgery History of transurethral resection of bladder tumor (TURBT) History of Problems with Anesthesia: No Social History Social History Household Members: None Housing: Other Are you a primary intensive care unit registered nurse to a significant other at home: No Do you presently have visiting nurse or other home services: Yes ([employer] 2 hours/day) Alcohol intake: never Patient Tobacco Use Status: Former Tobacco user Quit Date: years ago Tobacco use type: Cigarette e-Cigarette/Vaping Use: Never Used Second Hand Smoke Exposure: No Advance Directives Date on File: 07/12/21 service: No Current occupational status: retired Cognitive needs: No Hearing needs: Yes Vision needs: Yes Meds Allergies Allergy/AdvReac Type Severity Reaction Status Date / Time Penicillins [PENICILLINS] Allergy Intermediate PASSED Verified 09/19/22 13:38 OUT trazodone Allergy Intermediate tremors Verified 09/19/22 13:38 brimonidine [From Alphagan P] Allergy Unknown Verified 09/19/22 13:38 Home Medications Medication Instructions Recorded Confirmed Last Taken Type brimonidine 0.2 %-timolol 0.5 % 1 drp ophthalmic (eye) BID 03/08/21 09/19/22 03/24/22 History eye drops (Combigan) travoprost 0.004 % eye drops 1 drp ophthalmic (eye) BEDTIME 03/08/21 09/19/22 03/24/22 History omeprazole 40 mg capsule,delayed 40 mg PO DAILY@0630 03/25/22 09/19/22 08/28/22 History release prednisone 5 mg tablet 5 mg PO DAILY 08/21/22 09/19/22 09/18/22 History hydrocodone 5 mg-acetaminophen 325 1 tab PO Q4-6H PRN pain 09/19/22 09/19/22 Unknown History mg tablet Exam Exam Date and Time: September 29, 2022 1501 Height,Weight and Vital Signs: Height 5 ft 6 in Weight 72.575 kg Narrative Narrative: EKG 06/2022 Vent. Rate : 094 BPM ? ? Atrial Rate : 094 BPM ?? P-R Int : 130 ms? QRS Dur : 128 ms ? ? QT Int : 382 ms ? ? ? P-R-T Axes : 065 -35 012 degrees ?? QTc Int : 477 ms ? Normal sinus rhythm Left axis deviation Right bundle branch block Abnormal ECG When compared with ECG of 25-MAY-2022 12:53, No significant change was found ECHO 2021 Conclusions: - Normal left ventricular cavity size.? There is mildly increased left ventricular wall thickness.? The left ventricular systolic? function is low normal.? The visually estimated ejection fraction is between 50-55%. ? - Normal right ventricular cavity size and systolic function.? ? - Technically very limited study.? Assessment and Plan Assessment Anesthesia Assessment: Chart Reviewed Final Anesthetic Review Family History of Problems with Anesthesia: No History of Problems with Anesthesia: No
--- NOTE | 2022-10-02 10:38 | P.CONAN_ITS ---
[facility] Active Problems Active Problems: All Active Problems (Updated 09/28/22 @ 09:45 by Rosina Franklin PA-C) COPD (chronic obstructive pulmonary disease) (Acute) Emphysema with chronic bronchitis (Acute) Supplemental oxygen dependent (Acute) Bronchiectasis (Acute) Bronchitis (Acute) NICM (nonischemic cardiomyopathy) (Acute) Bifascicular block (Acute) Paroxysmal atrial fibrillation (Acute) Chronic anticoagulation (Acute) Essential hypertension (Acute) Pure hypercholesterolemia (Acute) Diabetes (Acute) GERD (gastroesophageal reflux disease) (Acute) Kidney stone on left side (Acute) Loss of balance (Acute) Lumbar degenerative disc disease (Acute) Past Medical History Medical History Acute and chronic respiratory failure BPH loc w urin obs/LUTS Bronchiectasis Chronic anticoagulation Congestive heart failure COPD (chronic obstructive pulmonary disease) Diabetes Essential hypertension GERD (gastroesophageal reflux disease) Glaucoma Hearing loss History of COVID-19 History of MAC infection History of pneumothorax Kidney stone on left side JESSA (mycobacterium avium-intracellulare) NICM (nonischemic cardiomyopathy) Paroxysmal atrial fibrillation Pure hypercholesterolemia Supplemental oxygen dependent Urinary retention Family History Family History Father No problems noted. Mother Medical history unknown Sister Diabetes Daughter In good health Son In good health Brother No problems noted. Family history of problems with anesthesia: No Surgical History Surgical History (Updated 09/28/22 @ 09:45 by Rosina Franklin PA-C) History of bronchoscopy History of cataract surgery History of colonoscopy History of cystoscopy History of left inguinal hernia repair History of lumbar surgery History of transurethral resection of bladder tumor (TURBT) History of Problems with Anesthesia: No Social History Social History Household Members: None Housing: Other Are you a primary healthcare translator to a significant other at home: No Do you presently have visiting nurse or other home services: Yes ([employer]MENT OPER[employer] 2 hours/day) Alcohol intake: never Patient Tobacco Use Status: Former Tobacco user Quit Date: years ago Tobacco use type: Cigarette e-Cigarette/Vaping Use: Never Used Second Hand Smoke Exposure: No Have you been hit, kicked, punched, or otherwise hurt by someone within the past year? If so, by whom?: No Are you DNR?: No Advance Directives: No Advance Directives Information Provided: Yes Advance Directives on File: No Advance Directives Date on File: 07/12/21 Recently lost weight without trying: No Nutrition Risks: Surgical patient >75years service: No Current occupational status: retired Cognitive needs: No Hearing needs: Yes Vision needs: Yes Meds Allergies Allergy/AdvReac Type Severity Reaction Status Date / Time Penicillins [PENICILLINS] Allergy Intermediate PASSED Verified 10/02/22 10:32 OUT trazodone Allergy Intermediate tremors Verified 10/02/22 10:32 brimonidine [From Alphagan P] Allergy Unknown Verified 10/02/22 10:32 Active Medications: Current Medications Albuterol Sulfate (Albuterol Sulfate (0.083%) 2.5 Mg/3 Ml Vial.Neb) 2.5 mg INHALE ONCE PRN PRN Reason: Shortness of Breath/Wheezing Lactated Ringer's (Lr) 500 mls @ 50 mls/hr IV .Q10H TON Stop: 10/02/22 20:14 Povidone Iodine (Povidone Iodine 5 % Ophth Soln 30 Ml Bottle) 1 appl EYE-LEFT PREOP PRN PRN Reason: Pre-Op Surgical Implant Prophy Home Medications Medication Instructions Recorded Confirmed Last Taken Type brimonidine 0.2 %-timolol 0.5 % 1 drp ophthalmic (eye) BID 03/08/21 09/19/22 03/24/22 History eye drops (Combigan) travoprost 0.004 % eye drops 1 drp ophthalmic (eye) BEDTIME 03/08/21 09/19/22 03/24/22 History omeprazole 40 mg capsule,delayed 40 mg PO DAILY@0630 03/25/22 10/02/22 10/02/22 History release prednisone 5 mg tablet 5 mg PO DAILY 08/21/22 10/02/22 10/02/22 History hydrocodone 5 mg-acetaminophen 325 1 tab PO Q4-6H PRN pain 09/19/22 09/19/22 Unknown History mg tablet Exam Exam Date and Time: October 02, 2022 1038 Height,Weight and Vital Signs: Height 5 ft 6 in Weight 72.575 kg Assessment and Plan Assessment Anesthesia Assessment: Anesthesia Plan Discussed and Chart Reviewed Final Anesthetic Review Family History of Problems with Anesthesia: No History of Problems with Anesthesia: No NPO: Yes ASA Class: III Final Preanesthetic Review: No Changes in Pt Med Stat, Meds/Allgs Chart Reviewed, Consent Obtained/Reviewed and Anes Risks/Benef Reviewed Patient Risk: Intermediate Procedure Risk: Low Anesthetic Plan Anesthetic Plan: MAC: Disposition: Standard PACU
[2022-10-02 10:56] LABS: Glucose, Whole Blood 131 mg/dL (60-115)
[2022-10-02] MEDS: Lactated Ringers 500 ML 50 ML IV (10:57)
[2022-10-02] MEDS: Tetracaine HCl/PF 0.5% Oph Sol 4 ML DROPS 1 DROP EYE-LEFT (10:57)
[2022-10-02] MEDS: Phenylephrine HCL 2.5% Oph SoL 2 ML BOTTLE 1 DROP EYE-LEFT ×3 (10:57→11:05)
[2022-10-02] MEDS: Cyclopentolate 1 % Ophth Sol 2 ML DRPBTL 1 DROP EYE-LEFT ×3 (10:58→11:05)
[2022-10-02] MEDS: Ketorolac Tromethamine 0.5% Op 5 ML DROPS 1 DROP EYE-LEFT ×3 (10:58→11:05)
[2022-10-02] MEDS: Tropicamide 1 % Ophth Sol 3 ML BTL 1 DROP EYE-LEFT ×3 (10:58→11:06)
[2022-10-02 11:07] VITALS: BP 108/64; PULSE 78; RESP 18; TEMP 36.6; O2SAT 97
--- NOTE | 2022-10-02 11:16 | PC.NURSE ---
report given to ricky delgado rn at this time.
--- NOTE | 2022-10-02 12:15 | HO.PNOPHT ---
Ophthalmology Procedure Procedure Date of Service: 10/02/22 Ophthalmology Viscoelastic: Healon Duet Dual Pack Pro Ophthalmology Lenses: Not Applicable Procedure Notes: PREOPERATIVE DIAGNOSIS: Decreased visual acuity left eye secondary to cataract and glaucoma POSTOPERATIVE DIAGNOSIS: Same PROCEDURE: Left cataract extraction with intraocular lens insertion and trabeculectomy, left eye SURGEON: Garrett Mandel M.D. ANESTHESIA: Topical/MAC ESTIMATED BLOOD LOSS: None COMPLICATIONS:Zonular Weakness After obtaining informed consent, the patient was brought to the operating room suite and placed in the supine position. After adequate sedation per anesthesia, topical drops of Tetracaine were given to the left eye. The eye was then prepped and draped in the usual sterile fashion. The operating room microscope was then positioned over the left eye and a lid speculum placed. 2% Lidocaine was instilled subconjunctivally. After awaiting 30 seconds, a paracentesis was created superiorly. Hemostasis was then achieved using wet field cautery. Mitomycin .4mg/ml was then placed in the conjunctival pocket and held in place for two minutes. The subconjunctival pocket was then irrigated copiously with 20 mls of BSS. Paracentesis was then created. Viscoelastic was then instilled into the anterior chamber. A crescent blade was then utilized to create a partial thickness sclera wound followed by advancement to clear cornea with the crescent blade. A keratome was then utilized to enter the anterior chamber. Capsulotomy forceps were then utilized to create a continuous circular tear capsulotomy. Hydrodissection and hydrodelineation were carried out until adequate mobilization of the nucleus occurred. Phacoemulsification was utilized to remove the dense central nucleus. Zonular dehjisence was recognizedand a Anterior Victrecomy was required to remove remanent cortical material. The PCIOL was placed in the sulcus but was found to be unstable.The wound was extended to remove the lens after attemts of intraocular folding of the lens failed as well as bisecting the lens with intraocula r siccors.The cornea was clouding and the patient was becoming increasingly uncomfortable I elected to leave the patient Aphackic. Attention was then directed to create a trabeculectomy. A Criselda punch was then utilized to create the trabeculectomy. The residual Viscoelastic was then removed utilizing the Vutrector. The egress of aqueous was evaluated and found to be appropriate. The conjunctiva was then closed with a 9-0 vicryl suture. BSS was then instilled into the anterior chamber creating a superior bleb, without obvious leakage. Intracameral injection of Vigamox 0.3%, 0.1 ml and subtenon injection of Kenalog-40 0.2 ml was given followed by an atropine drop. The patient tolerated the procedur and will be followed up in the a.m.
[2022-10-02 15:05] VITALS: BP 127/64; PULSE 79; RESP 18; TEMP 36.9; O2SAT 100
[2022-10-02 15:20] VITALS: BP 109/62; PULSE 70; RESP 16; O2SAT 97
[2022-10-02 15:35] VITALS: BP 117/69; PULSE 77; RESP 16; TEMP 36.8; O2SAT 96
== END 2022-10-02 16:08 | disposition home or self-care (01) ==
PROVIDERS: PCP Internal Medicine; Visit Provider Ophthalmology
PROC: (CPT 66985; principal; 2022-10-02 12:20)
DX: H59.092 Other disorders of the left eye following cataract surgery (principal); H25.12 Age-related nuclear cataract, left eye; H40.1122 Primary open-angle glaucoma, left eye, moderate stage; H52.4 Presbyopia; H27.02 Aphakia, left eye; H27.8 Other specified disorders of lens; J44.9 Chronic obstructive pulmonary disease, unspecified; Z99.81 Dependence on supplemental oxygen; I48.0 Paroxysmal atrial fibrillation; E11.9 Type 2 diabetes mellitus without complications; E78.00 Pure hypercholesterolemia, unspecified; Z87.891 Personal history of nicotine dependence; Z79.899 Other long term (current) drug therapy; Z88.0 Allergy status to penicillin
CPT/HCPCS: 66982; 66170; 67005; 82947; J2250; J3010; J3301; J7315; V2788

== ENCOUNTER 2022-10-30 09:44 | Outpatient (AMB) | payer MEDICARE, MEDICAID, SELFPAY ==
[2022-10-30 09:53] VITALS: BP 128/72; PULSE 91; O2SAT 94; BMI 23.7
--- NOTE | 2022-10-30 09:53 | MHC.PC.OV ---
Vital Signs 10/30/22 09:53 Height 5 ft 6 in Weight 147 lb BMI 23.7 BP 128/72 Blood Pressure Location Lt brachial Position Sitting Pulse 91 Pulse Source Pulse Oximeter Pulse Oximetry (%) 94 Oxygen Delivery Method Nasal Cannula Oxygen Flow Rate 2 Intake Visit Reasons: f/u Gerd Allergies Penicillins [PENICILLINS] Allergy (Intermediate, Verified 10/30/22 10:07) PASSED OUT trazodone Allergy (Intermediate, Verified 10/30/22 10:07) tremors brimonidine [From Alphagan P] Allergy (Verified 10/30/22 10:07) Unknown Medication List - Last Reconciled 10/30/22 by RAMU Sam albuterol sulfate 90 mcg/actuation 2 puffs inhalation Q4H PRN Anoro Ellipta 62.5-25 mcg/actuation (umeclidinium-vilanterol) 1 inh inhalation DAILY 30 days NS apixaban (Eliquis) 5 mg PO BID 90 days benzonatate 100 mg PO TID PRN blood sugar diagnostic (FreeStyle Lite Strips) test once daily blood-glucose meter (FreeStyle Lite Meter kit) test once daily bumetanide 1 mg PO DAILY 30 days carvedilol 6.25 mg See Protocol PO BID 30 days docusate sodium 100 mg PO BID finasteride (Proscar) 5 mg PO DAILY 90 days hydrocodone-acetaminophen 5-325 mg 1 tab PO Q4-6H PRN ipratropium-albuterol 0.5 mg-3 mg(2.5 mg base)/3 mL 3 mL inhalation QID PRN lancets (FreeStyle Lancets) Use 1 lancet once a day loratadine 10 mg PO DAILY lovastatin 10 mg PO DAILY 90 days metformin ER 500 mg PO DAILY omeprazole 40 mg PO DAILY@0630 prednisone 5 mg PO DAILY sacubitril-valsartan 24-26 mg (Entresto) 1 tab PO BID tamsulosin 0.4 mg PO DAILY walker with seat and wheels Tobacco use date assessed: 10/30/22 Dental Screening Did you have a dental visit in the last 12 months?: Yes Did you have a dental problem in the last 6 months where you did not have access to dental care?: No Was dental information given to patient?: Patient has dentist HPI HPI Comments History of Present Illness Details 82-year-old male history of hypercholesteremia, GERD, PAF, COPD uses supplemental oxygen.? Patient of Dr. Sorensen, presents today for follow up visit. 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 Review of the notes patient was seen by Cardiology no new symptoms. Patient was planned to undergo lung volume reduction surgery in the past.? However, per patient/[employer] not performed.?Patient reports has a follow up with thoracic surgery later this week. REfill sent on lancets, strips and alcohol swabs. ? [facility] Medical History Acute and chronic respiratory failure BPH loc w urin obs/LUTS Bronchiectasis Chronic anticoagulation Congestive heart failure COPD (chronic obstructive pulmonary disease) Diabetes Essential hypertension GERD (gastroesophageal reflux disease) Glaucoma Hearing loss History of COVID-19 History of MAC infection History of pneumothorax Kidney stone on left side JESSA (mycobacterium avium-intracellulare) NICM (nonischemic cardiomyopathy) Paroxysmal atrial fibrillation Pure hypercholesterolemia Supplemental oxygen dependent Urinary retention Surgical History History of bronchoscopy History of cataract surgery History of colonoscopy History of cystoscopy History of left inguinal hernia repair History of lumbar surgery History of transurethral resection of bladder tumor (TURBT) Family History Father No problems noted. Mother Medical history unknown Sister Diabetes Daughter In good health Son In good health Brother No problems noted. Social History Household Members: None Housing: Other Are you a primary daycare provider to a significant other at home: No Do you presently have visiting nurse or other home services: Yes ([employer] 2 hours/day) Alcohol intake: never Patient Tobacco Use Status: Former Tobacco user Quit Date: years ago Tobacco use type: Cigarette e-Cigarette/Vaping Use: Never Used Second Hand Smoke Exposure: No Advance Directives Date on File: 07/12/21 service: No Current occupational status: retired Cognitive needs: No Hearing needs: Yes Vision needs: Yes Questionnaire PHQ-9 Over the last 2 weeks, how often have you been bothered by any of the following problems? 1. Little interest or pleasure in doing things: not at all 2. Feeling down, depressed, or hopeless: not at all 3. Trouble falling or staying asleep, or sleeping too much: not at all 4. Feeling tired or having little energy: not at all 5. Poor appetite or overeating: not at all 6. Feeling bad about yourself - or that you are a failure or have let yourself or your family down: not at all 7. Trouble concentrating on things, such as reading the newspaper or watching television: not at all 8. Moving or speaking so slowly that other people could have noticed. Or the opposite - being so fidgety or restless that you have been moving around a lot more than usual: not at all 9. Thoughts that you would be better off or of hurting yourself in some way: not at all Total score: 0 Depression Screening Interpretation: Negative 44388 - PHQ-9 Billing: Yes Source: Developed by Drs. Sudeep Estes, Ronit Brewer, Harry Carter and colleagues, with an educational sahara from [employer]. Thrive Questionnaire Date Thrive assessed: 07/12/22 I am a: Patient What is your living situation today?: I have a steady place to live Within the past 12 months, did the food you bought not last and you didn't have the money to get more?: Never true Within the past 12 months, did you worry whether your food would run out before you got money to buy more?: Never true Currently or been in a relationship where the following occur: no concerns reported AUDIT C Alcohol Use Questionnaire (AUDIT-C) 1. How often do you have a drink containing alcohol?: Never 3. How often do you have six or more drinks on one occasion?: Never Total Score: 0 Score Reviewed/Action Taken: No KELLI-7 AMB Questionnaire KELLI-7 Date KELLI - 7 assessed: 07/12/22 Feeling nervous, anxious, or on edge: 1 = Several days Not being able to stop or control worryin = Several days Worrying too much about different things: 0 = Not at all Trouble relaxin = Not at all Being so restless that it is hard to sit still: 0 = Not at all Becoming easily annoyed or irritable: 0 = Not at all Feeling afraid as if something awful might happen: 0 = Not at all Total KELLI-7 score (0-4 normal; 5-9 mild; 10-14 moderate; 15-21 severe): 2 Source: Developed by Drs. Sudeep Estes, Ronit Brewer, Harry Carter and colleagues, with an educational sahara from [employer]. KELLI-7 Assessment Billing KELLI-7 Assessment Tool: KELLI-7 Assessment 22373 Review of Systems Const Denies chills, Denies fatigue, Denies fever(s) and Denies poor appetite Eyes Denies no additional complaints ENT Reports Normal hearing present Card Denies chest pain, Denies syncope, Denies rapid heart rate and Denies dyspnea Resp Denies cough and Denies dyspnea GI Denies change in stool character, Denies constipation, Denies diarrhea, Denies nausea and Denies vomiting Denies dysuria, Denies urinary frequency and Denies urinary urgency Neuro Reports Normal hearing present, Denies confusion and Denies syncope Psych Denies confusion Endo Denies fatigue Physical exam (Primary Care) Vital Signs: Last Vital Signs Pulse 91 10/30/22 09:53 BP 128/72 10/30/22 09:53 Pulse Ox 94 10/30/22 09:53 Oxygen Delivery Method Nasal Cannula 10/30/22 09:53 Oxygen Flow Rate 2 10/30/22 09:53 BMI result Body Mass Index 23.7 Tobacco/Smoking Status: Tobacco use Status Tobacco use date assessed 10/30/22 10/30/22 10:01 Patient Tobacco Use Status Former Tobacco user 10/30/22 10:01 Tobacco use type Cigarette 10/30/22 10:01 e-Cigarette/Vaping Use Never Used 10/30/22 10:01 PHQ-9: PHQ-9 Score PHQ-9: Total score 0 10/30/22 10:08 Depression Screening Interpretation: Negative Thrive Assessment: Date of Thrive Assessment Date Thrive assessed 07/12/22 10/30/22 10:01 Currently or been in a relationship where the following occur: no concerns reported Const General: No confusion Orientation/consciousness: No confusion HENMT Head: Yes normocephalic and Yes atraumatic Eyes Conjunctivae: conjunctivae normal Chest Chest palpation & inspection: normal inspection of the chest Resp Effort & Inspection: normal respiratory effort Auscultation: clear to auscultation bilaterally, no crackles, no rhonchi and no wheezes Cardio Rate: regular rate Rhythm: regular rhythm Heart sounds: S1 normal heart sound present and S2 normal heart sound present GI Inspection: Yes normal to inspection Neuro General: No confusion Cranial nerves: Yes Normal hearing present Extrem General: No edema Assessment and Plan Assessment & Plan (1) COPD (chronic obstructive pulmonary disease): Comment: uses O2 2L continuous Code(s): J44.9 - Chronic obstructive pulmonary disease, unspecified Plan: Continue on supplemental O2. Continue on current inhalers. Continue to follow with pulmonology. (2) Supplemental oxygen dependent: Code(s): Z99.81 - Dependence on supplemental oxygen (3) NICM (nonischemic cardiomyopathy): Comment: follows w/HCS Code(s): I42.8 - Other cardiomyopathies Plan: Continue to follow with Cardiology. (4) Paroxysmal atrial fibrillation: Comment: taking eliquis Code(s): I48.0 - Paroxysmal atrial fibrillation Plan: Continue on Eliquis and carvedilol. (5) Essential hypertension: Code(s): I10 - Essential (primary) hypertension Plan: Continue on Entresto Follow low salt diet b/p goal < 140/90. (6) Diabetes: Comment: states told has diabetes this year, no Rx yet, watching diet at this time-states glucose was 156 yesterday Code(s): E11.9 - Type 2 diabetes mellitus without complications Plan: Continue on metformin. hgb A1c in August 6.5%, Goal 6.5%. Patient educated to decrease the amount of carbohydrate intake such as pasta, bread, rice and potatoes are all sugar in addition to the sweet stuff. Remember that fruits are good but they also have sugar Plan Follow up in 3 months or sooner if needed. Orders: Orders Comprehensive [place]. Panel Fast Today I10 - Essential (primary) hypertension Hemoglobin A1c Today E11.9 - Type 2 diabetes mellitus without complications Lipid Panel Today I10 - Essential (primary) hypertension Complete Blood Count Auto Diff Today Z13.0 - Encounter for screening for diseases of the blood and blood-forming organs and certain disorders involving the immune mechanism Medications: New miscellaneous medical supply 1 box alcohol swabs 1 ea miscellaneous DAILY 1 ea 0RF Refilled blood sugar diagnostic (FreeStyle Lite Strips) test once daily 100 ea 5RF E11.9 - Type 2 diabetes mellitus without complications lancets (FreeStyle Lancets) Use 1 lancet once a day 100 ea 6RF E11.9 - Type 2 diabetes mellitus without complications Discontinued prednisone 5 mg PO BID 30 days 60 tabs 2RF Coding Level of Care Code Est Pt Level 4 (77164) Diagnoses COPD (chronic obstructive pulmonary disease) J44.9 Supplemental oxygen dependent Z99.81 NICM (nonischemic cardiomyopathy) I42.8 Paroxysmal atrial fibrillation I48.0 Essential hypertension I10 Diabetes E11.9 Additional Codes KELLI-7 Assessment Billing - KELLI-7 Assessment Tool: KELLI-7 Assessment 58044 ([id number])
== END 2022-10-30 10:30 | disposition home or self-care (01) ==
PROVIDERS: PCP Internal Medicine; Visit Provider Nurse Practitioner Family
DX: J44.9 Chronic obstructive pulmonary disease, unspecified (principal); Z99.81 Dependence on supplemental oxygen; I48.0 Paroxysmal atrial fibrillation; I10 Essential (primary) hypertension; E11.9 Type 2 diabetes mellitus without complications
CPT/HCPCS: 99214

== ENCOUNTER 2022-11-03 09:32 | Outpatient (AMB) | payer MEDICARE, MEDICAID, SELFPAY ==
--- NOTE | 2022-11-03 09:46 | MHC.OFFVIS ---
Intake Vital Signs 11/03/22 09:54 Height 5 ft 6 in Weight 153 lb BMI 24.7 BP 130/70 Blood Pressure Location Lt brachial Pulse 78 Pulse Oximetry (%) 93 Intake Visit Reasons: follow up question surgery Allergies Penicillins [PENICILLINS] Allergy (Intermediate, Verified 11/03/22 09:55) PASSED OUT trazodone Allergy (Intermediate, Verified 11/03/22 09:55) tremors brimonidine [From Alphagan P] Allergy (Verified 11/03/22 09:55) Unknown Medication List - Last Reconciled 11/03/22 by Bobbi Merlos MD albuterol sulfate 90 mcg/actuation 2 puffs inhalation Q4H PRN Anoro Ellipta 62.5-25 mcg/actuation (umeclidinium-vilanterol) 1 inh inhalation DAILY 30 days NS apixaban (Eliquis) 5 mg PO BID 90 days benzonatate 100 mg PO TID PRN blood sugar diagnostic (FreeStyle Lite Strips) test once daily blood-glucose meter (FreeStyle Lite Meter kit) test once daily bumetanide 1 mg PO DAILY 30 days carvedilol 6.25 mg See Protocol PO BID 30 days docusate sodium 100 mg PO BID finasteride (Proscar) 5 mg PO DAILY 90 days hydrocodone-acetaminophen 5-325 mg 1 tab PO Q4-6H PRN ipratropium-albuterol 0.5 mg-3 mg(2.5 mg base)/3 mL 3 mL inhalation QID PRN lancets (FreeStyle Lancets) Use 1 lancet once a day loratadine 10 mg PO DAILY lovastatin 10 mg PO DAILY 90 days metformin ER 500 mg PO DAILY miscellaneous medical supply 1 ea miscellaneous DAILY omeprazole 40 mg PO DAILY@0630 prednisone 5 mg PO DAILY sacubitril-valsartan 24-26 mg (Entresto) 1 tab PO BID tamsulosin 0.4 mg PO DAILY walker with seat and wheels HPI follow up question surgery HPI Details 82 year-old malewith multiple medical problems including CHF whose main complaint has been progressively worsening shortness of breath.? He has had CT scans over the years most recently on 01/31/2022 and again during most recent admission end of March 2022 which shows severe bronchiectatic changes and?severe emphysematous changes in particular worse in the right upper lob.? It is my opinion that this right?upper lobe is contributing very little if anything to?his respiratory status.? He is on 4?L of O2 and recently had admissionfor hemoptysis and?was in the hospital for 3 days during that time.? After our last visit,?he did see Cardiology whonoted his?ejection fraction?to be about 50% have previously was?slightly lower and deemed him a anintermediate cardiac risk for the proposed lobectomy for lung volume reduction.? Unfortunately he had been admitted to the hospital several times since that timeand has not made it back to see me until now.? He does tell me he underwent some pulmonary rehab but it is not clear to me how long he did it and he is not sure.? He still has significant difficulty breathing. He does have a more recent CT scan that is unchanged from previous done on 06/10/2022. He denies cough or hemoptysis but does complain of shortnessof breath with min activity.? He?has to stop about?nursing home up a flight ofstairs.? He did have pulmonary?function testingon 01/03/2022 which showed an FEV1 of 50% of predicted?and a DLCO VA of100% of predicted.? His wedger machine did arrange forakm to have a V/Qscan but does not sound like that is?happened and there is no record of. ? [facility] Medical History Acute and chronic respiratory failure BPH loc w urin obs/LUTS Bronchiectasis Chronic anticoagulation Congestive heart failure COPD (chronic obstructive pulmonary disease) Diabetes Essential hypertension GERD (gastroesophageal reflux disease) Glaucoma Hearing loss History of COVID-19 History of MAC infection History of pneumothorax Kidney stone on left side JESSA (mycobacterium avium-intracellulare) NICM (nonischemic cardiomyopathy) Paroxysmal atrial fibrillation Pure hypercholesterolemia Supplemental oxygen dependent Urinary retention Surgical History History of bronchoscopy History of cataract surgery History of colonoscopy History of cystoscopy History of left inguinal hernia repair History of lumbar surgery History of transurethral resection of bladder tumor (TURBT) Family History Father No problems noted. Mother Medical history unknown Sister Diabetes Daughter In good health Son In good health Brother No problems noted. Social History Household Members: None Housing: Other Are you a primary palliative care physician to a significant other at home: No Do you presently have visiting nurse or other home services: Yes ([employer] 2 hours/day) Alcohol intake: never Patient Tobacco Use Status: Former Tobacco user Quit Date: years ago Tobacco use type: Cigarette e-Cigarette/Vaping Use: Never Used Second Hand Smoke Exposure: No Advance Directives Date on File: 07/12/21 service: No Current occupational status: retired Cognitive needs: No Hearing needs: Yes Vision needs: Yes Physical Exam Vital Signs: Last Vital Signs Pulse 78 11/03/22 09:54 BP 130/70 11/03/22 09:54 Pulse Ox 93 11/03/22 09:54 BMI result Body Mass Index 24.7 General: No acute distress on O2 by nasal cannula HEENT: Moist mucous membranes, normocephalic, pupils equal round and reactive to light. Neck: No thyromegaly, supple, no JVD Lymph: No cervical, supraclavicular, or other lymphadenopathy Chest: No chest wall abnormalities or deformities Heart: Regular rate and rhythm Lungs: Clear to auscultation bilaterally Abdomen: Soft, nontender, normal bowel sounds Extremities: No edema, cyanosis, or clubbing. Full range of motion Neuro: Grossly intact, alert and oriented x3, and nonfocal Skin: Warm and dry no rashes Affect: Normal Assessment & Plan Assessment & Plan (1) COPD (chronic obstructive pulmonary disease): Comment: uses O2 2L continuous Code(s): J44.9 - Chronic obstructive pulmonary disease, unspecified Plan: I had a discussion with him and his daughter about the overall situation. He does have some cardiac issues in other significant medical comorbidities and is 82 years old but I did discuss lung volume reduction surgery with him which I do not think is his best option for the reasons mentioned above. Another option would be for a right upper lobe pulmonary valve as this does seem to be where the most severe disease is. I explained how both the surgery and the valve attempt to work in a similar way where the disease lung is either removed or cut off from its air supply so that the more healthy lung has more room to expand. I will get him an appointment to see the interventional wedger machine at [facility] for evaluation for the pulmonary valve. Of note, he is on Eliquis for atrial fibrillation. (2) Emphysema with chronic bronchitis: Code(s): J44.9 - Chronic obstructive pulmonary disease, unspecified (3) Supplemental oxygen dependent: Code(s): Z99.81 - Dependence on supplemental oxygen (4) Bronchiectasis: Code(s): J47.9 - Bronchiectasis, uncomplicated Medications: Discontinued prednisone 5 mg PO BID 30 days 60 tabs 2RF Coding Level of Care Code Est Pt Level 5 (98682) Diagnoses COPD (chronic obstructive pulmonary disease) J44.9 Emphysema with chronic bronchitis J44.9 Supplemental oxygen dependent Z99.81 Bronchiectasis J47.9 Time Spent (min) 55
[2022-11-03 09:54] VITALS: BP 130/70; PULSE 78; O2SAT 93; BMI 24.7
== END 2022-11-03 10:05 | disposition home or self-care (01) ==
PROVIDERS: PCP Internal Medicine; Visit Provider Surgery
DX: J44.9 Chronic obstructive pulmonary disease, unspecified (principal); Z99.81 Dependence on supplemental oxygen; J47.9 Bronchiectasis, uncomplicated

== ENCOUNTER → 2022-11-03 09:32 | Outpatient (BNVA) | payer MEDICARE, MEDICAID, SELFPAY | PROVIDERS: PCP Internal Medicine; Visit Provider Surgery | DX: J47.9 Bronchiectasis, uncomplicated (principal); I48.91 Unspecified atrial fibrillation; Z79.01 Long term (current) use of anticoagulants; Z99.81 Dependence on supplemental oxygen | CPT/HCPCS: 99212 ==

== ENCOUNTER 2022-12-07 02:37 | Emergency (ER) | payer MEDICARE, MEDICAID, SELFPAY ==
--- NOTE | ~2022-12-07 | XR_ITS ---
EXAMINATION: XR SHOULDER, RIGHT CLINICAL INFORMATION: Right shoulder pain, rule out fracture COMPARISON: 07/31/2011 TECHNIQUE: Three views of the right shoulder. FINDINGS: Glenohumeral alignment is anatomic. There is chronic appearing contour deformity along the lateral aspect of the humeral neck, suggesting sequelae of old injury. Adjacent calcific rotator cuff tendinopathy is suspected. There is degenerative change at the glenohumeral joint. The acromioclavicular joint is intact with degenerative change. Chronic appearing changes in the visualized right lung including extensive cystic and varicoid bronchiectasis. XR/XR shoulder RT min 2V IMPRESSION: Contour deformity of the lateral right humeral neck, more suggestive of a chronic finding. Degenerative changes as noted above.
--- NOTE | 2022-12-07 02:47 | ECG_ITS ---
Test Reason : chest pain Blood Pressure : / mmHG Vent. Rate : 079 BPM Atrial Rate : 079 BPM P-R Int : 156 ms QRS Dur : 112 ms QT Int : 370 ms P-R-T Axes : 072 -43 -08 degrees QTc Int : 424 ms Normal sinus rhythm Left axis deviation Right bundle branch block Abnormal ECG When compared with ECG of 11-SEP-2022 13:30, Premature ventricular complexes are no longer Present Heart rate has decreased Referred By: Generic ED Physician Electronically Signed By:JULIÁN OROURKE
[2022-12-07 02:48] VITALS: BP 147/87; PULSE 88; RESP 22; TEMP 36.7; O2SAT 100; BMI 23.7
[2022-12-07 03:04] LABS: MANUAL DIFF FLAG NO
[2022-12-07 03:05] LABS: Basophils Absolute Auto 0.1 X10*3/uL (0.0-0.2); Basophils Percent Auto 0.6 % (0-2); Eosinophils Absolute Auto 0.5 X10*3/uL (0.0-0.4); Eosinophils Percent Auto 6.2 % (0-4); Hematocrit 34.6 % (42.0-52.0); Hemoglobin 10.6 g/dl (14.0-18.0); Imm Gran Abs Auto 0.02 X10*3/uL (0.00-0.03); Imm Gran Pct Auto 0.3 % (0.0-0.4); Lymphocytes Absolute Auto 0.9 X10*3/uL (1.2-4.9); Lymphocytes Percent Auto 12.1 % (20-40); Mean Corpuscular HGB Conc 30.6 g/dl (31.0-36.0); Mean Corpuscular Hemoglobin 24.7 pg (27.0-33.0); Mean Corpuscular Volume 80.5 fL (80.0-98.0); Mean Platelet Volume 9.7 fL (9.4-12.4); Monocytes Absolute Auto 0.6 X10*3/uL (0.1-1.2); Monocytes Percent Auto 8.2 % (2-11); Neutrophils Absolute Auto 5.6 x10*3/uL (2.0-8.3); Neutrophils Percent Auto 72.6 % (45-73); Platelet Count 242 X10*3/uL (160-400); Red Cell Distribution Width 16.4 % (11.0-16.0); White Blood Count 7.8 X10*3/uL (4.8-10.8)
[2022-12-07 03:19] LABS: Anion Gap 11 (12-20); Blood Urea Nitrogen 11 mg/dL (9-16); Calcium 8.9 mg/dL (8.4-10.2); Carbon Dioxide 27 mmol/L (22-29); Chloride 107 mmol/L (96-108); Estimated Glomerular Filt Rate > 60; Glucose Random 104 mg/dL (60-115); Potassium 3.9 mmol/L (3.3-5.1); Sodium 141 mmol/L (135-145)
[2022-12-07 03:25] LABS: Troponin-I High Sensitivity < 2.7 ng/L (<3.5-35.0)
--- NOTE | 2022-12-07 04:02 | ED.GENADULT ---
HPI - General Adult General Chief complaint: General Medical Stated complaint: right arm pain Time Seen by Provider: 12/07/22 03:19 Source: patient Mode of arrival: EMS Limitations: no limitations History of Present Illness HPI narrative: 82-year-old male who presents emergency department for evaluation of right arm pain. The patient states that he woke up at 23:00 hours with pain in his right shoulder. He states that if he keeps his arm still E has no pain but any movement of his right shoulder causes severe pain. He states that yesterday morning he was exercising his arms but he does not remember injuring his arm. He states that the pain when he moves his arms 10/10. He denied fever, chills, rhinorrhea or sore throat. He states that he has a chronic cough secondary to his COPD. He denied chest pain. He states that he has chronic shortness of breath. He denied nausea, vomiting, diarrhea. Related Data Home Medications Medication Instructions Recorded Confirmed omeprazole 40 mg capsule,delayed 40 mg PO DAILY@0630 03/25/22 11/03/22 release hydrocodone 5 mg-acetaminophen 325 1 tab PO Q4-6H PRN pain 09/19/22 11/03/22 mg tablet Previous Rx's Medication Instructions Recorded finasteride 5 mg tablet (Proscar) 5 mg PO DAILY 90 days #90 tabs 01/06/22 walker #1 ea 03/20/22 albuterol sulfate 90 mcg/actuation 2 puff inhalation Q4H PRN 04/12/22 aerosol inhaler shortness of breath or wheezing #8.5 grams loratadine 10 mg tablet 10 mg PO DAILY #10 tabs 06/03/22 benzonatate 100 mg capsule 100 mg PO TID PRN Cough #12 caps 06/13/22 sacubitril 24 mg-valsartan 26 mg 1 tab PO BID #180 tabs 07/10/22 tablet (Entresto) Anoro Ellipta 62.5 mcg-25 1 inh inhalation DAILY 30 days #1 07/13/22 mcg/actuation powder for ea inhalation (umeclidinium-vilanterol) ipratropium 0.5 mg-albuterol 3 mg 3 ml inhalation QID PRN for 08/31/22 (2.5 mg base)/3 mL nebulization dyspnea #180 mL soln blood-glucose meter (FreeStyle #1 ea 09/13/22 Lite Meter kit) docusate sodium 100 mg capsule 100 mg PO BID #60 caps 09/27/22 metformin 500 mg tablet,extended 500 mg PO DAILY #90 tabs 10/05/22 release 24 hr apixaban 5 mg tablet (Eliquis) 5 mg PO BID 90 days #180 tabs 10/15/22 prednisone 5 mg tablet 5 mg PO DAILY #30 tabs 10/19/22 blood sugar diagnostic (FreeStyle #100 ea 10/30/22 Lite Strips) lancets 28 gauge (FreeStyle #100 ea 10/30/22 Lancets) miscellaneous medical supply 1 ea miscellaneous DAILY #1 ea 10/30/22 bumetanide 1 mg tablet 1 mg PO DAILY 30 days #30 tabs 11/15/22 carvedilol 6.25 mg tablet 6.25 mg PO BID 30 days #60 tabs 11/15/22 tamsulosin 0.4 mg capsule 0.4 mg PO DAILY #30 caps 11/15/22 lovastatin 10 mg tablet 10 mg PO DAILY 90 days #90 tabs 11/17/22 morphine 15 mg immediate release 15 mg PO Q4-6H PRN pain #8 tabs 12/07/22 tablet Allergies Allergy/AdvReac Type Severity Reaction Status Date / Time Penicillins [PENICILLINS] Allergy Intermediate PASSED Verified 11/03/22 09:55 OUT trazodone Allergy Intermediate tremors Verified 11/03/22 09:55 brimonidine [From Alphagan P] Allergy Unknown Verified 11/03/22 09:55 Review of Systems Review of Systems: Yes all other systems are reviewed and are negative [facility] Past Medical History [facility] Narrative: Social history: He denies tobacco, alcohol and drug use. Medical History History of COVID-19 Chronic anticoagulation History of pneumothorax Diabetes Acute and chronic respiratory failure Supplemental oxygen dependent COPD (chronic obstructive pulmonary disease) Kidney stone on left side BPH loc w urin obs/LUTS Urinary retention Paroxysmal atrial fibrillation Hearing loss NICM (nonischemic cardiomyopathy) JESSA (mycobacterium avium-intracellulare) Bronchiectasis Glaucoma Pure hypercholesterolemia GERD (gastroesophageal reflux disease) Congestive heart failure History of MAC infection Essential hypertension Surgical History History of transurethral resection of bladder tumor (TURBT) History of cataract surgery History of left inguinal hernia repair History of bronchoscopy History of colonoscopy History of lumbar surgery History of cystoscopy Family History Family History Father No problems noted. Mother Medical history unknown Sister Diabetes Daughter In good health Son In good health Brother No problems noted. Social History Social History Household Members: None Housing: Other Are you a primary residential care officer to a significant other at home: No Do you presently have visiting nurse or other home services: Yes ([employer] 2 hours/day) Alcohol intake: never Patient Tobacco Use Status: Former Tobacco user Quit Date: years ago Tobacco use type: Cigarette Smoked in Last 30 Days: No e-Cigarette/Vaping Use: Never Used Second Hand Smoke Exposure: No Use of substances other than those prescribed or required for medical reasons: No Advance Directives: No Advance Directives Information Provided: Yes Advance Directives Date on File: 07/12/21 service: No Current occupational status: retired Cognitive needs: No Hearing needs: Yes Vision needs: Yes Physical Exam ED Vital Signs: Vital Signs - 24 hr 12/07/22 02:48 12/07/22 04:22 12/07/22 06:00 Temperature 98.0 F 97.8 F Pulse Rate 88 70 72 Respiratory Rate 22 H 15 Blood Pressure 147/87 H 125/70 115/58 L Pulse Oximetry 100 98 Oxygen Delivery Method Nasal Cannula Room Air BMI result Body Mass Index 23.7 Vital signs revealed an elevated respiratory 22, elevated blood pressure 147/87, O2 saturation was 1 0 0% on 2 L via nasal cannula-patient wears this chronically Exam: General: Awake, alert in no distress Head: Normocephalic, atraumatic EENT: PERRL, Lids normal, sclera normal, conjunctiva normal, nose normal , ears normal, throat without erythema or exudates Neck: Supple, no adenopathy, trachea midline and nontender Lung: breath sounds symmetric, no wheezing, rales or rhonchi Chest: symmetric movement, nontender Heart: regular rate and rhythm, normal S1, S2 no murmurs or rubs Abdomen: soft, non-tender, nondistended, normal bowel sounds Back: no vertebral tenderness, no CVAT Extremities: Patient has tenderness palpation over his right deltoid muscle, there is no erythema or increased warmth, patient has no soft tissue swelling noted, patient has full range of motion of his fingers wrist elbow both passively and actively however with minimal movement of his right shoulder has a pain. Skin: no rashes, no lesion, normal color and warmth Neuro: Awake, alert, oriented, normal speech, cranial nerves intact, moves all extremities symmetrically Psych: Pleasant, cooperative Medications Administered Discontinued Medications Generic Name Dose Route Start Last Admin Trade Name Freq PRN Reason Stop Dose Admin Morphine Sulfate 4 mg 12/07/22 04:16 12/07/22 04:23 Morphine Sulfate 4 Mg/Ml Cartridge IVPUSH 12/07/22 04:17 4 mg ONCE STA Administration Protocol Medical Decision Making Medical Decision Making [facility] Narrative: 82-year-old male with history of diabetes mellitus, hypertension, cardiomyopathy, COPD and GERD who presents emergency department for evaluation of right shoulder pain which began at 23:00 hours yesterday. Patient states he was exercising his arms yesterday but does not recount any injury. Patient's physical examination did reveal tenderness palpation of the right deltoid muscle with significant pain with minimal movement of the right shoulder joint. There is no increased warmth or erythema noted over the right arm. Following evaluation was ordered: CBC, BMP, troponin, EKG, right shoulder x-ray. 0702: Patient's laboratory evaluate was unremarkable. Patient's x-ray of the right shoulder revealed no acute fracture. Patient's symptoms are most likely consistent to osteoarthritis with inflammatory component. Patient was advised to take Tylenol for pain and for pain not relieved by Tylenol, to use ice for 15 minutes 4 to 6 times a day. For pain not relieved by these measures he was prescribed morphine 15 mg every 6 hours as needed for pain. Differential Diagnosis Differential Diagnoses: The differential diagnosis associated with the presentation includes Differential diagnosis includes was not limited to myocardial infarction, myocardial ischemia, cellulitis, necrotizing fasciitis, musculoskeletal strain, fracture, arthritis Admission/Observation Consideration of admission/observation: Escalation of care including admission/observation considered Lab Data [facility] Lab Attestation statement: I reviewed the patient's lab results. My interpretation patient's laboratory evaluation as follows: Chronic anemia with an H&H of 10 and 34.6. BMP was normal. High sensitive troponin I was below detectable limits 12/07/22 02:59 12/07/22 02:59 Labs: Lab Results 12/07/22 Range/Units 02:59 WBC 7.8 (4.8-10.8) X10*3/uL RBC 4.30 L (4.60-5.80) X10*6/uL Hgb 10.6 L (14.0-18.0) g/dl Hct 34.6 L (42.0-52.0) % MCV 80.5 (80.0-98.0) fL MCH 24.7 L (27.0-33.0) pg MCHC 30.6 L (31.0-36.0) g/dl RDW 16.4 H (11.0-16.0) % Plt Count 242 D (160-400) X10*3/uL MPV 9.7 (9.4-12.4) fL Immature Gran % (Auto) 0.3 (0.0-0.4) % Neut % (Auto) 72.6 (45-73) % Lymph % (Auto) 12.1 L (20-40) % Ogle % (Auto) 8.2 (2-11) % Eos % (Auto) 6.2 H (0-4) % Baso % (Auto) 0.6 (0-2) % Lymph # (Auto) 0.9 L (1.2-4.9) X10*3/uL Ogle # (Auto) 0.6 (0.1-1.2) X10*3/uL Eos # (Auto) 0.5 H (0.0-0.4) X10*3/uL Baso # (Auto) 0.1 (0.0-0.2) X10*3/uL Abs Immat Gran (auto) 0.02 (0.00-0.03) X10*3/uL Absolute Neuts (auto) 5.6 (2.0-8.3) x10*3/uL Absolute Nucleated RBC 0.000 (0.0-0.012) X10*3/uL Nucleated RBC % (auto) 0.0 (0.0-0.2) /100WBC Sodium 141 (135-145) mmol/L Potassium 3.9 (3.3-5.1) mmol/L Chloride 107 (96-108) mmol/L Carbon Dioxide 27 (22-29) mmol/L Anion Gap 11 L (12-20) BUN 11 (9-16) mg/dL Creatinine 0.83 (0.5-1.4) mg/dL Estim Creat Clear Calc 64.0 Estimated GFR > 60 Random Glucose 104 (60-115) mg/dL Calcium 8.9 (8.4-10.2) mg/dL Troponin I High Sens < 2.7 (<3.5-35.0) ng/L Independent Interpretation I performed an independent interpretation of an: EKG Interpretation: My interpretation patient's 12 EKG done at 02:52 hours is as follows: Normal sinus rhythm rate of 79, normal OH interval of 156 milliseconds, prolonged QRS duration of 112 milliseconds, normal QTC interval of 424 milliseconds, no ST segment elevation, no ST segment depression, inverted T-wave in 3 and V1, right bundle-branch block, no PACs no PVCs My independent interpretation patient's right shoulder x-ray is as follows: Arthritic changes, no acute fracture seen Radiology Impression Discussion of test interpretation with radiology: I have reviewed the radiologist's reading. Radiologist Impression: XR shoulder RT min 2V IMPRESSION: Contour deformity of the lateral right humeral neck, more suggestive of a chronic finding. Degenerative changes as noted above. Dictated By: Carlos Sanchez MD Prescription Management I considered prescription management with: Pain Medication Chronic Conditions Patient?s care impacted by: Other (COPD) Discharge Plan Discharge Clinical Impression: Acute pain of right shoulder Osteoarthritis of right shoulder Qualifiers: Osteoarthritis type: unspecified Qualified Code(s): M19.011 - Primary osteoarthritis, right shoulder Patient Disposition: Home, Self-Care Instructions: Osteoarthritis (ED) Additional Instructions: Your blood work was normal. The x-ray of your right shoulder revealed no broken bones but you do have arthritis of the shoulder joint. You most likely injured your shoulder yesterday when you were doing exercises in this caused inflammation in your shoulder which is now causing the pain. Take Tylenol (acetaminophen) 2 pills every 4-6 hours as needed for pain. For pain not relieved by Tylenol take morphine 15 mg pills, 1 pill every 4 hours as needed for pain. This medication will make you sleepy, do not drive or work while taking this medication. Morphine is a narcotic medication and can be addicting. If you are concerned about addiction you can ask the pharmacist for less pills or do not get this prescription filled. Apply ice for 15 minutes 4 times a day for the next 3-4 days to your right shoulder, this will reduce the inflammation and help with the pain Follow-up with your doctor in 2 days. Please return to the emergency department if your symptoms get worse or if you develop any symptoms that are concerning to you. Prescriptions: New morphine 15 mg tablet 15 mg PO Q4-6H PRN (Reason: pain) Qty: 8 0RF Rx Instructions: The patient may ask for partial fill; Partial Fill upon patient request. No Action (DME) walker Misc See Rx Instructions .Route Qty: 1 0RF Patient Comments: Pt states doesnot use Rx Instructions: with seat and wheels albuterol sulfate 90 mcg/actuation HFA aerosol inhaler 2 puff inhalation Q4H PRN (Reason: shortness of breath or wheezing) Qty: 8.5 4RF Entresto 24-26 mg tablet 1 tab PO BID Qty: 180 3RF ipratropium-albuterol 0.5 mg-3 mg(2.5 mg base)/3 mL solution for nebulization 3 ml inhalation QID PRN (Reason: for dyspnea) Qty: 180 0RF (DME) blood-glucose meter [FreeStyle Lite Meter] Kit See Rx Instructions .Route Qty: 1 0RF Rx Instructions: test once daily docusate sodium 100 mg capsule 100 mg PO BID Qty: 60 0RF metformin 500 mg tablet extended release 24 hr 500 mg PO DAILY Qty: 90 0RF Eliquis 5 mg tablet 5 mg PO BID 90 Days Qty: 180 1RF prednisone 5 mg tablet 5 mg PO DAILY Qty: 30 0RF tamsulosin 0.4 mg capsule 0.4 mg PO DAILY Qty: 30 1RF bumetanide 1 mg tablet 1 mg PO DAILY 30 Days Qty: 30 0RF carvedilol 6.25 mg tablet 6.25 mg PO BID 30 Days Qty: 60 3RF Protocol: Hold for SBP/HR < HOLD for SBP < : 90 HOLD for HR < : 60 lovastatin 10 mg tablet 10 mg PO DAILY 90 Days Qty: 90 3RF loratadine 10 mg Tablet 10 mg PO DAILY Qty: 10 0RF omeprazole 40 mg capsule,delayed release(DR/EC) 40 mg PO DAILY@0630 benzonatate 100 mg Capsule 100 mg PO TID PRN (Reason: Cough) Qty: 12 0RF (DME) FreeStyle Lite Strips Strip See Rx Instructions .Route Qty: 100 5RF Rx Instructions: test once daily (DME) lancets [FreeStyle Lancets] 28 gauge misc See Rx Instructions .Route Qty: 100 6RF Rx Instructions: Use 1 lancet once a day miscellaneous medical supply Kit 1 ea miscellaneous DAILY Qty: 1 0RF Rx Instructions: 1 box alcohol swabs finasteride [Proscar] 5 mg tablet 5 mg PO DAILY 90 Days Qty: 90 3RF hydrocodone-acetaminophen 5-325 mg tablet 1 tab PO Q4-6H PRN (Reason: pain) Rx Instructions: Partial Fill upon patient request. Anoro Ellipta 62.5-25 mcg/actuation blister with device 1 inh inhalation DAILY 30 Days Qty: 1 6RF Print Language: Romanian
[2022-12-07 04:22] VITALS: BP 125/70; PULSE 70
[2022-12-07] MEDS: Morphine Sulfate 4 MG/ML CARTRIDGE IVPUSH (04:23)
[2022-12-07 06:00] VITALS: BP 115/58; PULSE 72; RESP 15; TEMP 36.6; O2SAT 98
[2022-12-07 07:17] VITALS: BP 115/66; PULSE 73; RESP 18; TEMP 36.5; O2SAT 97
--- NOTE | 2022-12-07 07:17 | PC.NURSE ---
patient a&ox3, vss, pt on 2l o2 nc, pt c/o mild rt arm pain, environmental monitoring specialist intact-nsr, pt speaking in full sentences no sob noted, call yin within reach, will continue to monitor
== END 2022-12-07 08:20 | disposition home or self-care (01) ==
PROVIDERS: Emergency Provider Emergency Medicine Emergency Medical Services
DX: M25.511 Pain in right shoulder (principal); M19.011 Primary osteoarthritis, right shoulder; E11.9 Type 2 diabetes mellitus without complications; I10 Essential (primary) hypertension; E78.00 Pure hypercholesterolemia, unspecified; J44.9 Chronic obstructive pulmonary disease, unspecified; I48.0 Paroxysmal atrial fibrillation; Z87.891 Personal history of nicotine dependence; Z79.899 Other long term (current) drug therapy; Z79.84 Long term (current) use of oral hypoglycemic drugs; Z79.01 Long term (current) use of anticoagulants
CPT/HCPCS: 36415; 73030; 80048; 84484; 85025; 93005; 96374; 99284; 99285; J2270

== ENCOUNTER 2023-02-11 12:49 | Emergency (ER) | payer MEDICARE, MEDICAID, SELFPAY ==
--- NOTE | ~2023-02-11 | XR_ITS ---
EXAMINATION: XR CHEST CLINICAL INFORMATION: Chest pain COMPARISON: Chest CT 06/10/2022, chest x-ray 06/10/2022 TECHNIQUE: Frontal view of the chest was obtained. FINDINGS: Extensive underlying chronic lung disease. No definite acute focal airspace disease. No pulmonary edema. No effusion or pneumothorax. The cardiomediastinal silhouette is stable. Old left-sided rib fractures. XR/XR chest 1V IMPRESSION: Extensive chronic lung disease. No definite acute focal pneumonia.
--- NOTE | 2023-02-11 12:50 | ECG_ITS ---
Test Reason : chest pain Blood Pressure : / mmHG Vent. Rate : 084 BPM Atrial Rate : 084 BPM P-R Int : 146 ms QRS Dur : 124 ms QT Int : 410 ms P-R-T Axes : 070 -46 -13 degrees QTc Int : 484 ms Normal sinus rhythm Right bundle branch block Left anterior fascicular block Bifascicular block Abnormal ECG When compared with ECG of 07-DEC-2022 02:52, QT has lengthened Referred By: Odilon Callaway Electronically Signed By:BEATRIS PERALTA
[2023-02-11 13:02] VITALS: BP 106/68; PULSE 89; RESP 20; TEMP 36.6; O2SAT 100; BMI 22.4
--- NOTE | 2023-02-11 13:06 | ED.CHESTPAIN ---
HPI - Chest Pain General Chief Complaint: Chest Pain Stated Complaint: Chest pain/L arm pain Time Seen by Provider: 02/11/23 17:25 Source: patient Mode of arrival: ambulatory Limitations: no limitations History of Present Illness HPI narrative: Patient 82 years old with COPD oxygen dependent, bronchiectasis, hyperlipidemia, nonischemic cardiomyopathy, atrial fibrillation on Eliquis complaining of pain in the chest for last 4 days pain is feeling tight increases with deep breaths does have a cough with mucoid phlegm no fever no chills also complaining of bilateral hand tingling no neck pain no headache no increased shortness of breath no fever or chills no palpitation Related Data Home Medications Medication Instructions Recorded Confirmed omeprazole 40 mg capsule,delayed 40 mg PO DAILY@0630 03/25/22 11/03/22 release hydrocodone 5 mg-acetaminophen 325 1 tab PO Q4-6H PRN pain 09/19/22 11/03/22 mg tablet Previous Rx's Medication Instructions Recorded walker #1 ea 03/20/22 loratadine 10 mg tablet 10 mg PO DAILY #10 tabs 06/03/22 benzonatate 100 mg capsule 100 mg PO TID PRN Cough #12 caps 06/13/22 sacubitril 24 mg-valsartan 26 mg 1 tab PO BID #180 tabs 07/10/22 tablet (Entresto) Anoro Ellipta 62.5 mcg-25 1 inh inhalation DAILY 30 days #1 07/13/22 mcg/actuation powder for ea inhalation (umeclidinium-vilanterol) ipratropium 0.5 mg-albuterol 3 mg 3 ml inhalation QID PRN for 08/31/22 (2.5 mg base)/3 mL nebulization dyspnea #180 mL soln blood-glucose meter (FreeStyle #1 ea 09/13/22 Lite Meter kit) apixaban 5 mg tablet (Eliquis) 5 mg PO BID 90 days #180 tabs 10/15/22 blood sugar diagnostic (FreeStyle #100 ea 10/30/22 Lite Strips) lancets 28 gauge (FreeStyle #100 ea 10/30/22 Lancets) miscellaneous medical supply 1 ea miscellaneous DAILY #1 ea 10/30/22 carvedilol 6.25 mg tablet 6.25 mg PO BID 30 days #60 tabs 11/15/22 lovastatin 10 mg tablet 10 mg PO DAILY 90 days #90 tabs 11/17/22 albuterol sulfate 90 mcg/actuation 2 puff inhalation Q4H PRN 12/07/22 aerosol inhaler shortness of breath or wheezing #8.5 grams morphine 15 mg immediate release 15 mg PO Q4-6H PRN pain #8 tabs 12/07/22 tablet finasteride 5 mg tablet 5 mg PO DAILY #90 tabs 12/19/22 prednisone 5 mg tablet 5 mg PO DAILY #30 tabs 01/20/23 tramadol 50 mg tablet 50 mg PO Q6H PRN pain #20 tabs 02/11/23 bumetanide 1 mg tablet 1 mg PO DAILY 30 days #30 tabs 02/12/23 docusate sodium 100 mg capsule 100 mg PO BID #60 caps 02/12/23 metformin 500 mg tablet,extended 500 mg PO DAILY #90 tabs 02/12/23 release 24 hr tamsulosin 0.4 mg capsule 0.4 mg PO DAILY #30 caps 02/12/23 Allergies Allergy/AdvReac Type Severity Reaction Status Date / Time Penicillins [PENICILLINS] Allergy Intermediate PASSED Verified 02/11/23 13:01 OUT trazodone Allergy Intermediate tremors Verified 02/11/23 13:01 brimonidine [From Alphagan P] Allergy Unknown Verified 02/11/23 13:01 Review of Systems Review of Systems: Yes all other systems are reviewed and are negative [facility] Past Medical History Medical History History of COVID-19 Chronic anticoagulation History of pneumothorax Diabetes Acute and chronic respiratory failure Supplemental oxygen dependent COPD (chronic obstructive pulmonary disease) Kidney stone on left side BPH loc w urin obs/LUTS Urinary retention Paroxysmal atrial fibrillation Hearing loss NICM (nonischemic cardiomyopathy) JESSA (mycobacterium avium-intracellulare) Bronchiectasis Glaucoma Pure hypercholesterolemia GERD (gastroesophageal reflux disease) Congestive heart failure History of MAC infection Essential hypertension Surgical History History of transurethral resection of bladder tumor (TURBT) History of cataract surgery History of left inguinal hernia repair History of bronchoscopy History of colonoscopy History of lumbar surgery History of cystoscopy Family History Family History Father No problems noted. Mother Medical history unknown Sister Diabetes Daughter In good health Son In good health Brother No problems noted. 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) Alcohol intake: former Comment: no cameras available Patient Tobacco Use Status: Former Tobacco user Quit Date: years ago Tobacco use type: Cigarette Smoked in Last 30 Days: No e-Cigarette/Vaping Use: Never Used Second Hand Smoke Exposure: No Use of substances other than those prescribed or required for medical reasons: No Advance Directives: No Advance Directives Information Provided: No Advance Directives Date on File: 07/12/21 service: No Current occupational status: retired Cognitive needs: No Hearing needs: Yes Vision needs: Yes Physical Exam Vital Signs: Vital Signs: Last Vital Signs Temp 98 F 02/11/23 13:02 Pulse 78 02/11/23 18:00 Resp 18 02/11/23 18:00 BP 106/68 02/11/23 13:02 Pulse Ox 97 02/11/23 18:00 O2 Del Method Nasal Cannula 02/11/23 18:00 O2 Flow Rate 2 02/11/23 18:00 Oxygen Flow Rate 2 02/11/23 13:02 BMI result Body Mass Index 22.4 Appearance: Alert. Oriented X3. No acute distress. Eyes: PERRLA, no pallor or icterus ENT: Pharynx normal. Oral Mucosa moist Neck: Normal inspection. Neck supple. No midline tenderness CVS: Normal heart rate and rhythm. Pulses normal. No murmur/rub or gallop Respiratory: No respiratory distress. Equal air entry bilateral, no wheezing/rales/rhonchi decreased air entry bilateral Abdomen: Soft and nontender. Bowel sounds are present, no mass palpable, no CVA tenderness Skin: Skin warm and dry. Normal skin color. Normal skin turgor. Extremities: No lower extremity edema. No calf tenderness Neuro: Oriented X 3. No motor deficit. No sensory deficit.No cerebellar signs , cranial nerves II-XII intact Course Course Course Narrative: RME: 82 yold male presents to the ED for COPD presents to the ED for 4 days of left sided chest pain radating down to left arm. patient oxygen dependetn 2liters. LAbs, EKG, and chest xray ordered. no legs swelling. 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 02/11/23 15:15 02/11/23 15:15 Labs: Lab Results 02/11/23 Range/Units 15:15 WBC 8.3 (4.8-10.8) X10*3/uL RBC 4.47 L (4.60-5.80) X10*6/uL Hgb 10.7 L (14.0-18.0) g/dl Hct 36.3 L (42.0-52.0) % MCV 81.2 (80.0-98.0) fL MCH 23.9 L (27.0-33.0) pg MCHC 29.5 L (31.0-36.0) g/dl RDW 14.7 (11.0-16.0) % Plt Count 256 (160-400) X10*3/uL MPV 9.4 (9.4-12.4) fL Immature Gran % (Auto) 0.2 (0.0-0.4) % Neut % (Auto) 81.6 H (45-73) % Lymph % (Auto) 6.7 L (20-40) % Anderson % (Auto) 3.8 (2-11) % Eos % (Auto) 7.1 H (0-4) % Baso % (Auto) 0.6 (0-2) % Lymph # (Auto) 0.6 L (1.2-4.9) X10*3/uL Anderson # (Auto) 0.3 (0.1-1.2) X10*3/uL Eos # (Auto) 0.6 H (0.0-0.4) X10*3/uL Baso # (Auto) 0.1 (0.0-0.2) X10*3/uL Abs Immat Gran (auto) 0.02 (0.00-0.03) X10*3/uL Absolute Neuts (auto) 6.7 (2.0-8.3) x10*3/uL Absolute Nucleated RBC 0.000 (0.0-0.012) X10*3/uL Nucleated RBC % (auto) 0.0 (0.0-0.2) /100WBC PT 17.4 H (11.1-13.3) SEC INR 1.4 H (0.9-1.1) APTT 34.8 (26.0-36.4) SEC Sodium 141 (135-145) mmol/L Potassium 3.9 (3.3-5.1) mmol/L Chloride 105 (96-108) mmol/L Carbon Dioxide 27 (22-29) mmol/L Anion Gap 13 (12-20) BUN 11 (9-16) mg/dL Creatinine 0.85 (0.5-1.4) mg/dL Estim Creat Clear Calc 63.5 Estimated GFR > 60 Random Glucose 99 (60-115) mg/dL Calcium 9.1 (8.4-10.2) mg/dL Total Bilirubin 0.2 (0.0-1.0) mg/dL AST 16 (5-37) U/L ALT 10 (0-40) U/L Alkaline Phosphatase 75 (39-117) U/L Troponin I High Sens 3.0 (<3.5-35.0) ng/L B-Natriuretic Peptide 19 (<100) pg/mL Total Protein 8.2 H (6.5-8.0) g/dL Albumin 4.0 (3.5-5.0) g/dL Influenza Type A (PCR) NEGATIVE (Negative) Influenza Type B (PCR) NEGATIVE (Negative) RSV RNA Qual (PCR) NEGATIVE (Negative) SARS-CoV-2 RNA (RT-PCR) NEGATIVE (Negative) Independent Interpretation I performed an independent interpretation of an: EKG and Plain X-Ray Interpretation: Normal sinus rhythm heart rate 84 beats per minute bifascicular block no acute ST changes no acute ischemia Radiology Impression Discussion of test interpretation with radiology: I have reviewed the radiologist's reading. Discharge Plan Discharge Clinical Impression: Chest pain Patient Disposition: Home, Self-Care Instructions: Chest Pain (ED) Additional Instructions: your chest pain is unlikely from the heart Take pain medication as prescribed Follow with PCP/shoe lining fitter Es poco probable que coffey dolor en el pecho provenga del coraz?n. [place] los analg?sicos seg?n lo recetado. Siga con el PCP/cardi?logo Prescriptions: New tramadol 50 mg tablet 50 mg PO Q6H PRN (Reason: pain) Qty: 20 0RF No Action (DME) walker Misc See Rx Instructions .Route Qty: 1 0RF Patient Comments: Pt states doesnot use Rx Instructions: with seat and wheels Entresto 24-26 mg tablet 1 tab PO BID Qty: 180 3RF ipratropium-albuterol 0.5 mg-3 mg(2.5 mg base)/3 mL solution for nebulization 3 ml inhalation QID PRN (Reason: for dyspnea) Qty: 180 0RF (DME) blood-glucose meter [FreeStyle Lite Meter] Kit See Rx Instructions .Route Qty: 1 0RF Rx Instructions: test once daily Eliquis 5 mg tablet 5 mg PO BID 90 Days Qty: 180 1RF carvedilol 6.25 mg tablet 6.25 mg PO BID 30 Days Qty: 60 3RF Protocol: Hold for SBP/HR < HOLD for SBP < : 90 HOLD for HR < : 60 lovastatin 10 mg tablet 10 mg PO DAILY 90 Days Qty: 90 3RF albuterol sulfate 90 mcg/actuation HFA aerosol inhaler 2 puff inhalation Q4H PRN (Reason: shortness of breath or wheezing) Qty: 8.5 4RF finasteride 5 mg tablet 5 mg PO DAILY Qty: 90 3RF prednisone 5 mg tablet 5 mg PO DAILY Qty: 30 0RF metformin 500 mg tablet extended release 24 hr 500 mg PO DAILY Qty: 90 0RF tamsulosin 0.4 mg capsule 0.4 mg PO DAILY Qty: 30 1RF docusate sodium 100 mg capsule 100 mg PO BID Qty: 60 0RF bumetanide 1 mg tablet 1 mg PO DAILY 30 Days Qty: 30 0RF loratadine 10 mg Tablet 10 mg PO DAILY Qty: 10 0RF omeprazole 40 mg capsule,delayed release(DR/EC) 40 mg PO DAILY@0630 benzonatate 100 mg Capsule 100 mg PO TID PRN (Reason: Cough) Qty: 12 0RF morphine 15 mg tablet 15 mg PO Q4-6H PRN (Reason: pain) Qty: 8 0RF Rx Instructions: The patient may ask for partial fill; Partial Fill upon patient request. (DME) FreeStyle Lite Strips Strip See Rx Instructions .Route Qty: 100 5RF Rx Instructions: test once daily (DME) lancets [FreeStyle Lancets] 28 gauge misc See Rx Instructions .Route Qty: 100 6RF Rx Instructions: Use 1 lancet once a day miscellaneous medical supply Kit 1 ea miscellaneous DAILY Qty: 1 0RF Rx Instructions: 1 box alcohol swabs hydrocodone-acetaminophen 5-325 mg tablet 1 tab PO Q4-6H PRN (Reason: pain) Rx Instructions: Partial Fill upon patient request. Anoro Ellipta 62.5-25 mcg/actuation blister with device 1 inh inhalation DAILY 30 Days Qty: 1 6RF Interventions: ED Discharge Assessment Last Done: 02/11/23 19:02 Discharge Date/Time: 02/11/23 19:02 Print Language: Setswana
[2023-02-11 15:20] LABS: MANUAL DIFF FLAG NO
[2023-02-11 15:22] LABS: Basophils Absolute Auto 0.1 X10*3/uL (0.0-0.2); Basophils Percent Auto 0.6 % (0-2); Eosinophils Absolute Auto 0.6 X10*3/uL (0.0-0.4); Eosinophils Percent Auto 7.1 % (0-4); Hematocrit 36.3 % (42.0-52.0); Hemoglobin 10.7 g/dl (14.0-18.0); Imm Gran Abs Auto 0.02 X10*3/uL (0.00-0.03); Imm Gran Pct Auto 0.2 % (0.0-0.4); Lymphocytes Absolute Auto 0.6 X10*3/uL (1.2-4.9); Lymphocytes Percent Auto 6.7 % (20-40); Mean Corpuscular HGB Conc 29.5 g/dl (31.0-36.0); Mean Corpuscular Hemoglobin 23.9 pg (27.0-33.0); Mean Corpuscular Volume 81.2 fL (80.0-98.0); Mean Platelet Volume 9.4 fL (9.4-12.4); Monocytes Absolute Auto 0.3 X10*3/uL (0.1-1.2); Monocytes Percent Auto 3.8 % (2-11); Neutrophils Absolute Auto 6.7 x10*3/uL (2.0-8.3); Neutrophils Percent Auto 81.6 % (45-73); Platelet Count 256 X10*3/uL (160-400); Red Blood Count 4.47 X10*6/uL (4.60-5.80); Red Cell Distribution Width 14.7 % (11.0-16.0); White Blood Count 8.3 X10*3/uL (4.8-10.8)
[2023-02-11 15:34] LABS: INTERNATIONAL NORM RATIO 1.4 (0.9-1.1); Prothrombin Time 17.4 SEC (11.1-13.3)
[2023-02-11 15:36] LABS: Alanine Aminotransferase 10 U/L (0-40); Alkaline Phosphatase 75 U/L (39-117); Anion Gap 13 (12-20); Aspartate Amino Transferase 16 U/L (5-37); Bilirubin Total 0.2 mg/dL (0.0-1.0); Blood Urea Nitrogen 11 mg/dL (9-16); Calcium 9.1 mg/dL (8.4-10.2); Carbon Dioxide 27 mmol/L (22-29); Chloride 105 mmol/L (96-108); Creatinine Clr Calc Pharmacy 63.5; Estimated Glomerular Filt Rate > 60; Glucose Random 99 mg/dL (60-115); Potassium 3.9 mmol/L (3.3-5.1); Sodium 141 mmol/L (135-145); Total Protein 8.2 g/dL (6.5-8.0)
[2023-02-11 15:37] LABS: Partial Thromboplastin Time 34.8 SEC (26.0-36.4)
[2023-02-11 15:41] LABS: B Type Natriuretic Peptide 19 pg/mL (<100)
[2023-02-11 15:59] LABS: Influenza A PCR NEGATIVE (Negative); Influenza B PCR NEGATIVE (Negative); Resp Syncy Virus RNA Qual PCR NEGATIVE (Negative); SARS COV2 PCR INHOUSE NEGATIVE (Negative)
[2023-02-11 16:00] VITALS: PULSE 78; RESP 20; O2SAT 97
--- NOTE | 2023-02-11 17:34 | PC.NURSE ---
Patient denies pain but reports chest pressure. Reports had part of lung removed 3 months ago and has not been the same since. states hx of astma and copd, on home 02. reports worsening sob with exertion x 2 weeks. Denies n/v/d/or abdominal pain
[2023-02-11 18:00] VITALS: PULSE 78; RESP 18; O2SAT 97
[2023-02-11] MEDS: traMADoL HCL 50 MG TABLET PO (18:34)
== END 2023-02-11 19:02 | disposition home or self-care (01) ==
PROVIDERS: Physician Assistant; Emergency Provider Internal Medicine; PCP Nurse Practitioner Family
DX: R07.9 Chest pain, unspecified (principal); J44.9 Chronic obstructive pulmonary disease, unspecified; J47.9 Bronchiectasis, uncomplicated; I48.91 Unspecified atrial fibrillation; E78.5 Hyperlipidemia, unspecified; E11.9 Type 2 diabetes mellitus without complications; Z79.01 Long term (current) use of anticoagulants; Z99.81 Dependence on supplemental oxygen; Z20.822 Contact with and (suspected) exposure to COVID-19; Z20.828 Contact with and (suspected) exposure to other viral communicable diseases
CPT/HCPCS: 0241U; 71045; 80053; 83880; 84484; 85025; 85610; 85730; 93005; 99284; 99285

== ENCOUNTER → 2023-02-11 12:50 | Outpatient (BNV) | payer MEDICARE, MEDICAID, SELFPAY | PROVIDERS: Emergency Provider Internal Medicine; PCP Nurse Practitioner Family; Visit Provider Internal Medicine | DX: I45.2 Bifascicular block (principal); R94.31 Abnormal electrocardiogram [ECG] [EKG] | CPT/HCPCS: 93010 ==

== ENCOUNTER 2023-02-15 08:07 | Outpatient (REF) | payer MEDICARE, MEDICAID, SELFPAY ==
[2023-02-15 08:21] LABS: MANUAL DIFF FLAG NO
[2023-02-15 09:02] LABS: Basophils Absolute Auto 0.1 X10*3/uL (0.0-0.2); Basophils Percent Auto 0.6 % (0-2); Eosinophils Percent Auto 10.2 % (0-4); Hematocrit 34.6 % (42.0-52.0); Hemoglobin 10.4 g/dl (14.0-18.0); Imm Gran Abs Auto 0.04 X10*3/uL (0.00-0.03); Imm Gran Pct Auto 0.4 % (0.0-0.4); Lymphocytes Absolute Auto 0.9 X10*3/uL (1.2-4.9); Lymphocytes Percent Auto 9.9 % (20-40); Mean Corpuscular HGB Conc 30.1 g/dl (31.0-36.0); Mean Corpuscular Hemoglobin 24.6 pg (27.0-33.0); Mean Platelet Volume 9.9 fL (9.4-12.4); Monocytes Absolute Auto 0.9 X10*3/uL (0.1-1.2); Monocytes Percent Auto 9.7 % (2-11); Neutrophils Absolute Auto 6.5 x10*3/uL (2.0-8.3); Neutrophils Percent Auto 69.2 % (45-73); Platelet Count 298 X10*3/uL (160-400); Red Blood Count 4.22 X10*6/uL (4.60-5.80); White Blood Count 9.4 X10*3/uL (4.8-10.8)
[2023-02-15 09:05] LABS: Estimated Average Glucose 134 mg/dL; Hemoglobin A1c % 6.3 % (<6.0)
[2023-02-15 09:15] LABS: Alanine Aminotransferase 9 U/L (0-40); Albumin Level 3.7 g/dL (3.5-5.0); Alkaline Phosphatase 79 U/L (39-117); Anion Gap 10 (12-20); Aspartate Amino Transferase 14 U/L (5-37); Bilirubin Total 0.3 mg/dL (0.0-1.0); Blood Urea Nitrogen 15 mg/dL (9-16); Calcium 9.2 mg/dL (8.4-10.2); Carbon Dioxide 30 mmol/L (22-29); Chloride 105 mmol/L (96-108); Cholesterol 123 mg/dL (<200); Estimated Glomerular Filt Rate > 60; Glucose Fasting 117 mg/dL (60-99); HDL Cholesterol 32 mg/dL (>40); LDL Cholesterol Calculated 74 mg/dL (<100); Potassium 4.1 mmol/L (3.3-5.1); Sodium 141 mmol/L (135-145); Total Protein 7.7 g/dL (6.5-8.0); Triglycerides 89 mg/dL (<150)
== END 2023-02-15 08:08 | disposition home or self-care (01) ==
LOC: HO.LAB 08:07
PROVIDERS: PCP Internal Medicine; Visit Provider Nurse Practitioner Family
DX: I10 Essential (primary) hypertension (principal); E11.9 Type 2 diabetes mellitus without complications; Z13.0 Encounter for screening for diseases of the blood and blood-forming organs and certain disorders involving the immune mechanism
CPT/HCPCS: 36415; 80053; 80061; 83036; 85025

== ENCOUNTER 2023-02-21 09:47 | Outpatient (REF) | payer MEDICARE, MEDICAID, SELFPAY ==
--- NOTE | ~2023-02-21 | US_ITS ---
EXAMINATION: US RETROPERITONEAL LIMITED (RENAL ONLY) CLINICAL INFORMATION: Calculus of kidney. COMPARISON: CT abdomen and pelvis 01/13/2022. TECHNIQUE: Real-time imaging of the kidneys. FINDINGS: RIGHT POLE OF THE HORSESHOE KIDNEY: 11.3 x 3.9 x 4.1 cm (SAG x AP x TRV). The kidney is normal in size, contour, and echogenicity. Renal cortical thickness is normal. No calculi or focal parenchymal lesions. No hydronephrosis. Echogenic focus without twinkle artifact or shadowing may reflect a vascular reflector. No definite nephrolithiasis. LEFT POLE OF THE HORSESHOE KIDNEY: 12.5 x 3.9 x 3.4 cm (SAG x AP x TRV). The kidney is normal in size, contour, and echogenicity. Renal cortical thickness is normal. No focal parenchymal lesions or hydronephrosis. Incidentally noted extrarenal pelvis. 8 mm nonobstructing lower pole renal stone previously 7 mm. 2 mm nonobstructing midpole renal stone previously 3 mm. US/US renal BI IMPRESSION: Horseshoe morphology of the kidneys with similar nonobstructing left renal stones.
== END 2023-02-21 09:48 | disposition home or self-care (01) ==
LOC: HO.US 09:47
PROVIDERS: PCP Nurse Practitioner Family; Visit Provider Nurse Practitioner Family
DX: N20.0 Calculus of kidney (principal)
CPT/HCPCS: 76775

== ENCOUNTER 2023-02-21 13:44 | Outpatient (AMB) | payer MEDICARE, MEDICAID, SELFPAY ==
--- NOTE | 2023-02-21 13:48 | A.OFFPC_ITS ---
Vital Signs 02/21/23 13:49 Height 5 ft 7 in Weight 147 lb BMI 23.0 BP 104/60 Blood Pressure Location Lt brachial Position Sitting Pulse 88 Pulse Source Pulse Oximeter Pulse Oximetry (%) 98 Oxygen Delivery Method Nasal Cannula Oxygen Flow Rate 2 Intake Visit Reasons: Follow up Req Dr. Sorensen, COPD, HTN,DM Intake Note: Patient here for a follow up COPD, HTN, DM Suspension Cord Tier Required: No Accompanied by: Self / Same As Patient Allergies Penicillins [PENICILLINS] Allergy (Intermediate, Verified 02/21/23 14:01) PASSED OUT trazodone Allergy (Intermediate, Verified 02/21/23 14:01) tremors brimonidine [From Alphagan P] Allergy (Verified 02/21/23 14:01) Unknown Medication List - Last Reconciled 02/21/23 by Olga Calzada MD albuterol sulfate 90 mcg/actuation 2 puffs inhalation Q4H PRN Anoro Ellipta 62.5-25 mcg/actuation (umeclidinium-vilanterol) 1 ea PO DAILY NS apixaban (Eliquis) 5 mg PO BID 90 days blood sugar diagnostic (FreeStyle Lite Strips) test once daily blood-glucose meter (FreeStyle Lite Meter kit) test once daily bumetanide 1 mg PO DAILY 30 days carvedilol 6.25 mg See Protocol PO BID 30 days docusate sodium 100 mg PO BID finasteride 5 mg PO DAILY hydrocodone-acetaminophen 5-325 mg 1 tab PO Q4-6H PRN ipratropium-albuterol 0.5 mg-3 mg(2.5 mg base)/3 mL 3 mL inhalation QID PRN lancets (FreeStyle Lancets) Use 1 lancet once a day loratadine 10 mg PO DAILY lovastatin 10 mg PO DAILY 90 days metformin ER 500 mg PO DAILY miscellaneous medical supply 1 ea miscellaneous DAILY morphine 15 mg PO Q4-6H PRN omeprazole 40 mg PO DAILY 90 days prednisone 5 mg PO DAILY sacubitril-valsartan 24-26 mg (Entresto) 1 tab PO BID tamsulosin 0.4 mg PO DAILY tramadol 50 mg PO Q6H PRN walker with seat and wheels Tobacco use date assessed: 10/30/22 Fall risk assessment: No Falls in past year Last assessed Fall Risk: 12/13/23 Dental Screening Dental Screen Date: 02/21/23 Did you have a dental visit in the last 12 months?: Yes Did you have a dental problem in the last 6 months where you did not have access to dental care?: No Was dental information given to patient?: Patient has dentist HPI HPI Comments History of Present Illness Details This is an 82-year-old male with COPD, diabetes mellitus type 2, nonischemic cardiomyopathy and paroxysmal atrial fibrillation that comes today for follow-up his conditions. On 2 L of oxygen to be used as needed with an oxygen saturation of 98%. COPD is follow by pulmonology and requires rescue inhaler few times a month. A1c within goal. Has not gain 5 lb in a week and cardiomyopathy is follow by cardiology. On chronic anticoagulation for atrial fibrillation and denies any active bleeding. The goal is heart rate control. Complains of paresthesia of left upper limb that happens at night while he is sleeping. COUNT INCLUDES THE [facility] Medical History (Updated 02/21/23 @ 14:10 by Olga Calzada MD) History of COVID-19 Chronic anticoagulation History of pneumothorax Diabetes Acute and chronic respiratory failure Supplemental oxygen dependent COPD (chronic obstructive pulmonary disease) Kidney stone on left side BPH loc w urin obs/LUTS Urinary retention Paroxysmal atrial fibrillation Hearing loss NICM (nonischemic cardiomyopathy) JESSA (mycobacterium avium-intracellulare) Bronchiectasis Glaucoma Pure hypercholesterolemia GERD (gastroesophageal reflux disease) Congestive heart failure History of MAC infection Essential hypertension Surgical History History of transurethral resection of bladder tumor (TURBT) History of cataract surgery History of left inguinal hernia repair History of bronchoscopy History of colonoscopy History of lumbar surgery History of cystoscopy Family History Father No problems noted. Mother Medical history unknown Sister Diabetes Daughter In good health Son In good health Brother No problems noted. 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 Sudeep Estes, Ronit Brewer, Harry Carter and colleagues, with an educational sahara from [employer]. Review of Systems Const All systems reviewed & are unremarkable except as noted in HPI and below Eyes Reports no additional complaints, Denies change in vision and Denies other visual disturbances Card Denies chest pain at rest, Denies chest pain with activity, Denies edema, Denies irregular heart rhythm, Denies claudication, Denies dyspnea, Denies dyspnea on exertion, Denies orthopnea, Denies paroxysmal nocturnal dyspnea and Denies slow heart rate Resp Denies cough, Denies dyspnea and Denies dyspnea on exertion GI Denies abdominal pain, Denies change in bowel habits, Denies excessive flatus, Denies nausea and Denies vomiting Denies urinary hesitancy, Denies urinary incontinence and Denies urinary urgency Musc Denies abnormal gait, Denies atrophy, Denies deformity and Denies limited range of motion Skin/Breast Denies bleeding lesions, Denies changing lesions and Denies rash Neuro Denies abnormal gait and Denies lack of coordination Physical exam (Primary Care) Vital Signs: Last Vital Signs Pulse 88 02/21/23 13:49 BP 104/60 02/21/23 13:49 Pulse Ox 98 02/21/23 13:49 Oxygen Delivery Method Nasal Cannula 02/21/23 13:49 BMI result Body Mass Index 23.0 Tobacco/Smoking Status: Tobacco use Status Tobacco use date assessed 10/30/22 02/21/23 13:49 Patient Tobacco Use Status Former Tobacco user 02/21/23 13:49 Tobacco use type Cigarette 02/21/23 13:49 e-Cigarette/Vaping Use Never Used 02/21/23 13:49 Thrive Assessment: Date of Thrive Assessment Date Thrive assessed 07/12/22 02/21/23 13:49 Eyes General: appearance normal, both eyes and all related structures Eyelids: Yes eyelids normal Conjunctivae: conjunctivae normal Neck Neck: Yes normal visual inspection and Yes supple Resp Effort & Inspection: normal respiratory effort Auscultation: clear to auscultation bilaterally Cardio Jugular venous distension: no JVD Rate: regular rate Rhythm: regular rhythm Heart sounds: S1 normal heart sound present and S2 normal heart sound present Extrem General: Yes full ROM Office Procedures Flu Questionnaire Does the patient have a severe egg allergy?: No Immunizations flu vacc [id number] 6mos up(PF) 60 mcg(15 mcgx4)/0.5 mL IM syringe Performing Provider: Olga Calzada MD [place] [facility] Documented (not given) by: DENISE Souza on 02/21/23 14:14 Reason Not Given: Not Given Assessment and Plan Assessment & Plan (1) COPD (chronic obstructive pulmonary disease): Comment: uses O2 2L continuous Code(s): J44.9 - Chronic obstructive pulmonary disease, unspecified Plan: Continue longstanding inhaler. Use rescue inhaler as needed. Follow-up with pulmonology. (2) NICM (nonischemic cardiomyopathy): Comment: follows w/HCS Code(s): I42.8 - Other cardiomyopathies Plan: Continue carvedilol. The goal is to not gain 5 lb in a week. (3) Diabetes: Comment: states told has diabetes this year, no Rx yet, watching diet at this time- states glucose was 156 yesterday Code(s): E11.9 - Type 2 diabetes mellitus without complications Plan: Continue metformin. A1c goal is equal or less than 7%. (4) Paroxysmal atrial fibrillation: Comment: taking eliquis Code(s): I48.0 - Paroxysmal atrial fibrillation Plan: Continue chronic anticoagulation. Orders: Orders NE nerve conduction velocity Today R20.2 - Paresthesia of skin Coding Level of Care Code Est Pt Level 4 (28861) Diagnoses COPD (chronic obstructive pulmonary disease) J44.9 NICM (nonischemic cardiomyopathy) I42.8 Diabetes E11.9 Paroxysmal atrial fibrillation I48.0 Time Spent (min) 22
[2023-02-21 13:49] VITALS: BP 104/60; PULSE 88; O2SAT 98; BMI 23.0
== END 2023-02-21 14:07 | disposition home or self-care (01) ==
PROVIDERS: PCP Internal Medicine; Visit Provider Internal Medicine
DX: J44.9 Chronic obstructive pulmonary disease, unspecified (principal); I42.8 Other cardiomyopathies; E11.9 Type 2 diabetes mellitus without complications; I48.0 Paroxysmal atrial fibrillation
CPT/HCPCS: 99214

== ENCOUNTER 2023-02-28 10:50 | Outpatient (AMB) | payer MEDICARE, MEDICAID, SELFPAY ==
--- NOTE | 2023-02-28 11:46 | A.OFFVIS_ITS ---
Intake Intake Visit Reasons: US results Intake Note: Patient presents for follow up ultrasound Urology Medications: tamsulosin, finasteride Blood Thinner: apixaban PVR: 0ml's Submarine Element Coordinator Required: Yes Accompanied by: Self / Same As Patient Allergies Penicillins [PENICILLINS] Allergy (Intermediate, Verified 02/28/23 13:31) PASSED OUT trazodone Allergy (Intermediate, Verified 02/28/23 13:31) tremors brimonidine [From Alphagan P] Allergy (Verified 02/28/23 13:31) Unknown Medication List - Last Reconciled 02/28/23 by RAMU Garrett- albuterol sulfate 90 mcg/actuation 2 puffs inhalation Q4H PRN Anoro Ellipta 62.5-25 mcg/actuation (umeclidinium-vilanterol) 1 ea PO DAILY NS apixaban (Eliquis) 5 mg PO BID 90 days blood sugar diagnostic (FreeStyle Lite Strips) test once daily blood-glucose meter (FreeStyle Lite Meter kit) test once daily bumetanide 1 mg PO DAILY 30 days carvedilol 6.25 mg See Protocol PO BID 30 days docusate sodium 100 mg PO BID finasteride 5 mg PO DAILY ipratropium-albuterol 0.5 mg-3 mg(2.5 mg base)/3 mL 3 mL inhalation QID PRN lancets (FreeStyle Lancets) Use 1 lancet once a day loratadine 10 mg PO DAILY lovastatin 10 mg PO DAILY 90 days metformin ER 500 mg PO DAILY miscellaneous medical supply 1 ea miscellaneous DAILY morphine 15 mg PO Q4-6H PRN omeprazole 40 mg PO DAILY 90 days prednisone 5 mg PO DAILY sacubitril-valsartan 24-26 mg (Entresto) 1 tab PO BID tamsulosin 0.4 mg PO DAILY tramadol 50 mg PO Q6H PRN walker with seat and wheels HPI HPI Comments History of Present Illness Details Yao is an 82-year-old Turkmen-speaking male patient of Dr. Edu Calzada. He has a past medical history of chronic anticoagulation, diabetes, acute and chronic respiratory failure oxygen dependent, nephrolithiasis, urinary retention, paroxysmal atrial fibrillation, hearing loss, nonischemic cardiomyopathy, glaucoma, hypercholesteremia, GERD, congestive heart failure, and hypertension. He presents to the office today for follow-up of his urinary retention, history of TURBT noting inflammatory changes no atypical cells, horseshoe kidneys, and nephrolithiasis. In discussion with the patient today he reports to be doing and feeling well. Recent renal imaging results reviewed with the patient today. Horseshoe morphology of bilateral kidneys. Right kidney with no lesions and or hydronephrosis. Left kidney with 8 mm nonobstructing lower pole and 2 mm nonobstructing mid pole renal calculus. Discussed at length potential causes of nephrolithiasis. Discussed surveillance monitoring versus surgical intervention at length. Discussed of risks and benefits of these interventions. He otherwise denies any bothersome urinary issues or concerns. He reports to be compliant with 0.4 mg of Flomax. He reports to be happy with current voiding parameters on 0.4 mg of Flomax daily. In office urinalysis results reviewed with the patient today. PVR 0 mL. When asked he reports to be drinking water daily. He otherwise offers no other issues or concerns at this time. [facility] Medical History (Updated 03/01/23 @ 22:38 by Ashley Tello [facility]) BPH loc w urin obs/LUTS Urinary retention History of COVID-19 Chronic anticoagulation History of pneumothorax Diabetes Acute and chronic respiratory failure Supplemental oxygen dependent COPD (chronic obstructive pulmonary disease) Kidney stone on left side Paroxysmal atrial fibrillation Hearing loss NICM (nonischemic cardiomyopathy) JESSA (mycobacterium avium-intracellulare) Bronchiectasis Glaucoma Pure hypercholesterolemia GERD (gastroesophageal reflux disease) Congestive heart failure History of MAC infection Essential hypertension Surgical History History of transurethral resection of bladder tumor (TURBT) History of cataract surgery History of left inguinal hernia repair History of bronchoscopy History of colonoscopy History of lumbar surgery History of cystoscopy Family History Father No problems noted. Mother Medical history unknown Sister Diabetes Daughter In good health Son In good health Brother No problems noted. 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) Alcohol intake: former Comment: no cameras available Patient Tobacco Use Status: Former Tobacco user Quit Date: years ago Tobacco use type: Cigarette e-Cigarette/Vaping Use: Never Used Second Hand Smoke Exposure: No Advance Directives Date on File: 07/12/21 service: No Current occupational status: retired Cognitive needs: No Hearing needs: Yes Vision needs: Yes Review of Systems Const Reports as per HPI Eyes Reports as per HPI ENT Reports no additional complaints Card Reports as per HPI Resp Reports as per HPI GI Reports as per HPI Reports as per HPI Musc Reports no additional complaints Endo Reports as per HPI José/Lymph Reports no additional complaints Aller/Immun Reports no additional complaints Physical Exam Const General: cooperative, healthy appearing, comfortable, no acute distress, well developed, alert and awake Orientation/consciousness: oriented to person Limitations: no limitations HEENT Head: Yes normal to inspection, Yes normocephalic and Yes atraumatic Eyes General: appearance normal, both eyes and all related structures Neck Neck: Yes normal visual inspection Chest Chest palpation & inspection: normal inspection of the chest Resp Other: O2 dependent via nasal cannula Effort & Inspection: normal respiratory effort Cardio Rate: regular rate Rhythm: regular rhythm GI Inspection: Yes normal to inspection General: Yes no CVA tenderness Back/Spine/Pelvis Back: no CVA tenderness Skin General skin exam: no rashes or lesions noted Neuro General: oriented to person Extrem General: Yes normal to inspection Psych Appearance: grossly normal and well kempt Mental Status: mental status grossly normal Speech and movement: Normal speech and movement present and Clear speech present Affect: normal affect Attitude: cooperative Thought process: Normal thought process present Thought content: Normal thought content present Insight: Fair insight present (Psych) Judgement: Fair judgement present (Psych) Results AMB Urinalysis, Automated UA Leukoctes 0 Diandra/uL Last Edit by [facility] on 02/28/23 16:38 UA Nitrite Negative Last Edit by [facility] on 02/28/23 16:38 UA Urobilinogen 0.2 mg/dL Last Edit by [facility] on 02/28/23 16:38 UA Protein 0 mg/dL Last Edit by [facility] on 02/28/23 16:38 UA pH 6.0 Last Edit by [facility] on 02/28/23 16:38 UA Blood 10 Mike/uL Last Edit by [employer] on 02/28/23 16:38 UA Specific Randall 1.015 Last Edit by Henrik Garcia on 02/28/23 16:38 UA Ketone Negative Last Edit by Henrik Garcia on 02/28/23 16:38 UA Bilirubin 0 mg/dL Last Edit by Henrik Garcia on 02/28/23 16:38 UA Glucose 0 mg/dL Last Edit by Henrik Garcia on 02/28/23 16:38 Results Reviewed Results Reviewed: Laboratory Last Values Urine pH (Auto) 6.0 02/28/23 16:37 Specific Randall (Auto) 1.015 02/28/23 16:37 Urine Protein (Auto) 0 mg/dL 02/28/23 16:37 Glucose (UA)(Auto) 0 mg/dL 02/28/23 16:37 Urine Ketones (Auto) Negative 02/28/23 16:37 Urine Blood (Auto) 10 Mike/uL 02/28/23 16:37 Urine Nitrite (Auto) Negative 02/28/23 16:37 Urine Bilirubin (Auto) 0 mg/dL 02/28/23 16:37 Urine Urobilinogen (Auto) 0.2 mg/dL 02/28/23 16:37 Leukocyte Esterase (Auto) 0 Diandra/uL 02/28/23 16:37 Date of Service: 02/21/23 EXAMINATION: US RETROPERITONEAL LIMITED (RENAL ONLY) CLINICAL INFORMATION: Calculus of kidney. COMPARISON: CT abdomen and pelvis 01/13/2022. TECHNIQUE: Real-time imaging of the kidneys. FINDINGS: RIGHT POLE OF THE HORSESHOE KIDNEY: 11.3 x 3.9 x 4.1 cm (SAG x AP x TRV). The kidney is normal in size, contour, and echogenicity. Renal cortical thickness is normal. No calculi or focal parenchymal lesions. No hydronephrosis. Echogenic focus without twinkle artifact or shadowing may reflect a vascular reflector. No definite nephrolithiasis. LEFT POLE OF THE HORSESHOE KIDNEY: 12.5 x 3.9 x 3.4 cm (SAG x AP x TRV). The kidney is normal in size, contour, and echogenicity. Renal cortical thickness is normal. No focal parenchymal lesions or hydronephrosis. Incidentally noted extrarenal pelvis. 8 mm nonobstructing lower pole renal stone previously 7 mm. 2 mm nonobstructing midpole renal stone previously 3 mm. IMPRESSION: Horseshoe morphology of the kidneys with similar nonobstructing left renal stones. 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 PVR 0 mL. Continue Flomax as discussed and prescribed Recent renal ultrasound results reviewed with the patient today. Will continue with surveillance imaging. Patient reports be happy with current voiding parameters. Patient denies any bothersome urinary issues or concerns at this time. Renal ultrasound in 6 months. Educated, encouraged, and stressed the importance of drinking water daily. Follow-up in 6 months with imaging to be completed prior; or sooner with any issues, concerns, and or questions. Orders: Orders AMB Urinalysis Automated 02/28/23 Z13.9 - Encounter for screening, unspecified US renal BI 6 Months N20.0 - Calculus of kidney Patient Instructions: The patient had an opportunity to ask questions regarding the treatment plan. All questions were answered. Physical exam, labs, and imaging were discussed and reviewed in detail. As well as risks, benefits, and discussion of treatment choices. No major barriers to understanding were identified. The patient expressed understanding and agreement with the above treatment plan. The patient was made aware they should contact our office by phone for worsening of their current condition, the appearance of new symptoms, or with any questions or concerns. Compliance is encouraged with any medications and follow up testing that is ordered. It is a privilege to be allowed the opportunity to participate in? your urological care.? Again, if you have any questions or concerns If you have any questions or concerns please do not hesitate to contact me. The office is [phone]. This note is constructed using voice recognition software. While every effort has been made to ensure accuracy poultry hatchery man errors may have been included. Yours sincerely, RAMU Garrett- Coding Level of Care Code Est Pt Level 3 (06420) Diagnoses Nephrolithiasis N20.0 BPH loc w urin obs/LUTS N40.1 Urinary retention R33.9 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 Q63.1
== END 2023-02-28 12:17 | disposition home or self-care (01) ==
PROVIDERS: PCP Internal Medicine; Visit Provider Nurse Practitioner Family
DX: N20.0 Calculus of kidney (principal); N40.1 Benign prostatic hyperplasia with lower urinary tract symptoms; R33.9 Retention of urine, unspecified; Q63.1 Lobulated, fused and horseshoe kidney
CPT/HCPCS: 99213

== ENCOUNTER → 2023-02-28 10:50 | Outpatient (BNVA) | payer MEDICARE, MEDICAID, SELFPAY | PROVIDERS: PCP Internal Medicine; Visit Provider Nurse Practitioner Family | DX: N40.1 Benign prostatic hyperplasia with lower urinary tract symptoms (principal); R33.9 Retention of urine, unspecified; N20.0 Calculus of kidney; Q63.1 Lobulated, fused and horseshoe kidney; Z79.01 Long term (current) use of anticoagulants | CPT/HCPCS: 81003; 99212 ==

== ENCOUNTER 2023-03-08 13:44 | Inpatient (IN) | payer MEDICARE, MEDICAID, SELFPAY ==
--- NOTE | ~2023-03-08 | XR_ITS ---
EXAMINATION: XR CHEST CLINICAL INFORMATION: COPD with SOB. COMPARISON: Chest 02/11/2023. TECHNIQUE: 2 views of the chest were obtained. FINDINGS: There is hyperdense inflated lungs with extensive chronic prominence of interstitial lung changes without acute pneumonic process. There are bullous changes seen in right upper lobe but no pneumothorax visualized. The heart size is normal. Pulmonary vascularity is normal. There is mild tenting of right hemidiaphragm with minimal loss of right lung volume compared to left . No gross bony abnormality seen. XR/XR chest 2V IMPRESSION: Hyperinflated lungs with diffuse emphysematous bullous changes in the right upper lobe. There is chronic parenchymal interstitial lung disease similar to previous study from 02/11/2023. No acute consolidation or pleural effusion seen.
--- NOTE | ~2023-03-08 | CT_ITS ---
EXAMINATION: CT CHEST WITHOUT CONTRAST CLINICAL INFORMATION: Hypoxia, cough and dyspnea. COMPARISON: Chest x-ray 03/08/2023. TECHNIQUE: Multidetector volumetric CT imaging of the chest was done. Axial MIP volume rendering provided. Sagittal and coronal reformatted images were obtained. This CT examination was performed using dose optimization techniques as appropriate, variously including the following: *Automated exposure control *Adjustment of mA and/or kV according to patient size (this includes techniques or standardized protocols for targeted exams where dose is matched to indication/reason for exam; i.e. 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 LUNGS: There is diffuse centrilobular and paraseptal emphysema with large cystic changes in both upper lobes right greater than left with bilateral upper lobe cystic bronchiectasis. There is bronchial wall thickening and debris visualized in both lower lobe posterior segments. No large consolidation, mass or nodules visualized. There is mild mediastinal shift to the right suggesting loss of right lung volume. MEDIASTINUM: The thyroid lobes are symmetrical and normal. The central trachea and the bronchi widely patent. There is moderate coronary artery calcifications. No pericardial effusion seen. Central trachea and the bronchi widely patent. No abnormal size mediastinal or hilar lymph nodes seen. CORONARY ARTERY CALCIFICATION: Moderate coronary artery calcifications present. PLEURA: There is no pleural effusion. No pleural mass or thickening. AXILLA: No lymphadenopathy. UPPER ABDOMEN: Visualized liver, spleen, pancreas and bilateral adrenal glands are unremarkable. OSSEOUS STRUCTURES: Unremarkable. CT/CT chest wo IV con IMPRESSION: Diffuse emphysema, bilateral upper and lower lobe bronchiectasis with debris within the dilated bronchi in both lower lobe basal segments. Overall there is slight loss of right lung volume with chronic scarring of the right upper lobe. Mild ipsilateral mediastinal shift to the right. Fleischner guidelines were followed.
[2023-03-08 14:02] VITALS: BP 130/65; PULSE 95; RESP 18; O2SAT 97; BMI 22.8
--- NOTE | 2023-03-08 14:03 | ED.GENADULT ---
HPI - General Adult General Chief complaint: Dyspnea Stated complaint: diff breathing Time Seen by Provider: 03/08/23 21:05 Source: patient Mode of arrival: ambulatory Limitations: no limitations History of Present Illness HPI narrative: Patient comes to the emergency room complaining of shortness of breath for 1 week. Patient states that he has been coughing. Patient denies fever chills. Patient uses 2 L of oxygen at home, but patient states he only uses it at bedtime. Patient states that when he walks a short distance, patient becomes short of breath. Patient denies any chest pain. Related Data Previous Rx's Medication Instructions Recorded walker #1 ea 03/20/22 loratadine 10 mg tablet 10 mg PO DAILY #10 tabs 06/03/22 sacubitril 24 mg-valsartan 26 mg 1 tab PO BID #180 tabs 07/10/22 tablet (Entresto) ipratropium 0.5 mg-albuterol 3 mg 3 ml inhalation QID PRN for 08/31/22 (2.5 mg base)/3 mL nebulization dyspnea #180 mL soln blood-glucose meter (FreeStyle #1 ea 09/13/22 Lite Meter kit) apixaban 5 mg tablet (Eliquis) 5 mg PO BID 90 days #180 tabs 10/15/22 blood sugar diagnostic (FreeStyle #100 ea 10/30/22 Lite Strips) lancets 28 gauge (FreeStyle #100 ea 10/30/22 Lancets) miscellaneous medical supply 1 ea miscellaneous DAILY #1 ea 10/30/22 carvedilol 6.25 mg tablet 6.25 mg PO BID 30 days #60 tabs 11/15/22 lovastatin 10 mg tablet 10 mg PO DAILY 90 days #90 tabs 11/17/22 albuterol sulfate 90 mcg/actuation 2 puff inhalation Q4H PRN 12/07/22 aerosol inhaler shortness of breath or wheezing #8.5 grams morphine 15 mg immediate release 15 mg PO Q4-6H PRN pain #8 tabs 12/07/22 tablet finasteride 5 mg tablet 5 mg PO DAILY #90 tabs 12/19/22 prednisone 5 mg tablet 5 mg PO DAILY #30 tabs 01/20/23 tramadol 50 mg tablet 50 mg PO Q6H PRN pain #20 tabs 02/11/23 Anoro Ellipta 62.5 mcg-25 1 ea PO DAILY #60 ea 02/12/23 mcg/actuation powder for inhalation (umeclidinium-vilanterol) bumetanide 1 mg tablet 1 mg PO DAILY 30 days #30 tabs 02/12/23 docusate sodium 100 mg capsule 100 mg PO BID #60 caps 02/12/23 metformin 500 mg tablet,extended 500 mg PO DAILY #90 tabs 02/12/23 release 24 hr tamsulosin 0.4 mg capsule 0.4 mg PO DAILY #30 caps 02/12/23 omeprazole 40 mg capsule,delayed 40 mg PO DAILY 90 days #90 caps 02/15/23 release Allergies Allergy/AdvReac Type Severity Reaction Status Date / Time Penicillins [PENICILLINS] Allergy Intermediate PASSED Verified 02/28/23 13:31 OUT trazodone Allergy Intermediate tremors Verified 02/28/23 13:31 brimonidine [From Alphagan P] Allergy Unknown Verified 02/28/23 13:31 Review of Systems Review of Systems: Constitutional : No Weight loss, No Fever, No Chills, No Night Sweats, No Fatigue, No Malaise ENT/Mouth : No Hearing loss, No Ear Pain, No Nasal Congestion, No Sinus Pain, No Hoarseness, No sore throat, No Rhinorrhea, No Swallowing Difficulty Eyes: No Eye Pain, No Swelling, No Redness, No Foreign Body, No Discharge, No Vision Changes Cardiovascular : No Chest Pain, No SOB, No Dyspnea on Exertion, No Orthopnea, No Edema, No Palpitations Respiratory : Complaining of worsening cough, wheezing and shortness of breath with exertion Gastrointestinal : No Nausea, No Vomiting, No Diarrhea, No Constipation, No abdominal Pain, No Hematochezia, No Melena Genitourinary : no irregular bleeding, No Dysuria, No Urinary Frequency, No Hematuria, No Urinary Incontinence, No Urgency, No Flank Pain, No Urinary Flow Changes, No Hesitancy Musculoskeletal : No joint pain, No Myalgias, No Joint Swelling Skin : No Skin Lesions, No rash Neuro : No Weakness, No Numbness, No Paresthesias, No Loss of Consciousness, No Dizziness, No Headache Psych : No Anxiety/Panic, No Depression, No SI/HI/AH/VH, No Social Issues, Heme/Lymph: No Bruising, No Bleeding,No Lymphadenopathy Endocrine : No Polyuria, No Polydipsia, No Temperature Intolerance FORMERLY [facility], 1928–1983 Past Medical History Medical History BPH loc w urin obs/LUTS Urinary retention History of COVID-19 Chronic anticoagulation History of pneumothorax Diabetes Acute and chronic respiratory failure Supplemental oxygen dependent COPD (chronic obstructive pulmonary disease) Kidney stone on left side Paroxysmal atrial fibrillation Hearing loss NICM (nonischemic cardiomyopathy) JESSA (mycobacterium avium-intracellulare) Bronchiectasis Glaucoma Pure hypercholesterolemia GERD (gastroesophageal reflux disease) Congestive heart failure History of MAC infection Essential hypertension Surgical History History of transurethral resection of bladder tumor (TURBT) History of cataract surgery History of left inguinal hernia repair History of bronchoscopy History of colonoscopy History of lumbar surgery History of cystoscopy Family History Family History Father No problems noted. Mother Medical history unknown Sister Diabetes Daughter In good health Son In good health Brother No problems noted. Social History Social History Household Members: None Housing: Other Are you a primary respiratory care program director to a significant other at home: No Do you presently have visiting nurse or other home services: Yes ([employer] [employer] [employer] 2 hours/day) Alcohol intake: former Comment: no cameras available Patient Tobacco Use Status: Former Tobacco user Quit Date: years ago Tobacco use type: Cigarette Smoked in Last 30 Days: No e-Cigarette/Vaping Use: Never Used Second Hand Smoke Exposure: No Use of substances other than those prescribed or required for medical reasons: No Advance Directives: No Advance Directives Information Provided: No Advance Directives Date on File: 07/12/21 service: No Current occupational status: retired Cognitive needs: No Hearing needs: Yes Vision needs: Yes Physical Exam ED Vital Signs: Vital Signs - 24 hr 03/08/23 14:02 03/08/23 20:41 Pulse Rate 95 Respiratory Rate 18 Blood Pressure 130/65 Pulse Oximetry 97 87 L Oxygen Delivery Method Room Air Room Air BMI result Body Mass Index 22.8 Const Other: Appearance: Alert. Oriented X3. No acute distress. Eyes: Pupils equal, round and reactive to light. ENT: Pharynx normal. Neck: Normal inspection. Neck supple. No lymph nodes noted. No crepitus CVS: Normal heart rate and rhythm. Pulses normal. Normal S1 and S2 Respiratory: No respiratory distress. On 2 L, bilateral crackles Abdomen: Soft and nontender. No rigidity. No distention. Skin: Skin warm and dry. Normal skin color. Normal skin turgor. Extremities: No lower extremity edema. No Lacerations. No Rash Neuro: Oriented X 3. No motor deficit. No sensory deficit. Moving all extremities. No slurred speech. 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 endorses inc yellow sputum. baseline 2L O2 at home. no inc in O2 demand. Home nurse evaluated advised pt to come in. no sick contacts. no fever/chills. + inspiratory wheezes on left Serology, labs, ekg, cxr ordered. Full HPI, ROS and PE to be performed by the primary ED provider. Medications Administered Discontinued Medications Generic Name Dose Route Start Last Admin Trade Name Freq PRN Reason Stop Dose Admin Methylprednisolone Sodium Succinate 125 mg 03/08/23 21:57 03/08/23 22:32 Methylprednisolone Sod Succ 125 Mg/2 Ml Vial IVPUSH 03/08/23 21:58 125 mg ONCE ONE Administration Medical Decision Making Medical Decision Making [facility] Narrative: -my interpretation of labs: Chemistry within normal limits, troponin negative, hematology has a slight increased 12.5 -my interpretation of chest x-ray: Hyperinflated lungs, patient has significant scarring bilaterally especially on the right lung. Unclear if there is superimposing pneumonia, -chest x-ray radiology report: No infiltrate or pleural effusion -ambulation O2 remains in the low 90s on 3 L oxygen. However, patient gets significantly short of breath, diaphoretic, recovers quickly with rest. No chest pain -BNP pending -interpretation of chest CT: Significant scarring from bronchiectasis, large bullae on the right lung -per radiology report, no pneumonia Differential Diagnosis Differential Diagnoses: The differential diagnosis associated with the presentation includes (Bronchiectasis exacerbation, pneumonia, viral URI) Admission/Observation Consideration of admission/observation: Escalation of care including admission/observation considered Consult Healthcare Provider Management of the patient was discussed with: Hospitalist Lab Data MDM Lab Attestation statement: I reviewed the patient's lab results. 03/08/23 14:32 03/08/23 14:32 Labs: Lab Results 03/08/23 Range/Units 14:32 WBC 12.5 H (4.8-10.8) X10*3/uL RBC 4.23 L (4.60-5.80) X10*6/uL Hgb 10.1 L (14.0-18.0) g/dl Hct 33.7 L (42.0-52.0) % MCV 79.7 L (80.0-98.0) fL MCH 23.9 L (27.0-33.0) pg MCHC 30.0 L (31.0-36.0) g/dl RDW 15.0 (11.0-16.0) % Plt Count 285 (160-400) X10*3/uL MPV 9.0 L (9.4-12.4) fL Immature Gran % (Auto) 0.2 (0.0-0.4) % Neut % (Auto) 82.9 H (45-73) % Lymph % (Auto) 4.3 L (20-40) % [place] % (Auto) 5.0 (2-11) % Eos % (Auto) 7.1 H (0-4) % Baso % (Auto) 0.5 (0-2) % Lymph # (Auto) 0.5 L (1.2-4.9) X10*3/uL [place] # (Auto) 0.6 (0.1-1.2) X10*3/uL Eos # (Auto) 0.9 H (0.0-0.4) X10*3/uL Baso # (Auto) 0.1 (0.0-0.2) X10*3/uL Abs Immat Gran (auto) 0.03 (0.00-0.03) X10*3/uL Absolute Neuts (auto) 10.3 H (2.0-8.3) x10*3/uL Absolute Nucleated RBC 0.000 (0.0-0.012) X10*3/uL Nucleated RBC % (auto) 0.0 (0.0-0.2) /100WBC Sodium 139 (135-145) mmol/L Potassium 4.0 (3.3-5.1) mmol/L Chloride 102 (96-108) mmol/L Carbon Dioxide 29 (22-29) mmol/L Anion Gap 12 (12-20) BUN 11 (9-16) mg/dL Creatinine 0.82 (0.5-1.4) mg/dL Estim Creat Clear Calc 64.8 Estimated GFR > 60 Random Glucose 157 H (60-115) mg/dL Calcium 8.9 (8.4-10.2) mg/dL Magnesium 1.9 (1.6-2.6) mg/dL Troponin I High Sens 2.9 (<3.5-35.0) ng/L Influenza Type A (PCR) NEGATIVE (Negative) Influenza Type B (PCR) NEGATIVE (Negative) RSV RNA Qual (PCR) NEGATIVE (Negative) SARS-CoV-2 RNA (RT-PCR) NEGATIVE (Negative) Independent Interpretation I performed an independent interpretation of an: Plain X-Ray and CT Scan Radiology Impression Discussion of test interpretation with radiology: I have reviewed the radiologist's reading. Radiologist Impression: There is hyperdense inflated lungs with extensive chronic prominence of interstitial lung changes without acute pneumonic process. There are bullous changes seen in right upper lobe but no pneumothorax visualized. The heart size is normal. Pulmonary vascularity is normal. There is mild tenting of right hemidiaphragm with minimal loss of right lung volume compared to left . No gross bony abnormality seen. XR/XR chest 2V IMPRESSION: Hyperinflated lungs with diffuse emphysematous bullous changes in the right upper lobe. There is chronic parenchymal interstitial lung disease similar to previous study from 02/11/2023. No acute consolidation or pleural effusion seen. BUSINESS DEVELOPMENT CONSULTANT: Hyperinflated lungs. LUNGS: There is diffuse centrilobular and paraseptal emphysema with large cystic changes in both upper lobes right greater than left with bilateral upper lobe cystic bronchiectasis. There is bronchial wall thickening and debris visualized in both lower lobe posterior segments. No large consolidation, mass or nodules visualized. There is mild mediastinal shift to the right suggesting loss of right lung volume. MEDIASTINUM: The thyroid lobes are symmetrical and normal. The central trachea and the bronchi widely patent. There is moderate coronary artery calcifications. No pericardial effusion seen. Central trachea and the bronchi widely patent. No abnormal size mediastinal or hilar lymph nodes seen. CORONARY ARTERY CALCIFICATION: Moderate coronary artery calcifications present. PLEURA: There is no pleural effusion. No pleural mass or thickening. AXILLA: No lymphadenopathy. UPPER ABDOMEN: Visualized liver, spleen, pancreas and bilateral adrenal glands are unremarkable. OSSEOUS STRUCTURES: Unremarkable. CT/CT chest wo IV con IMPRESSION: Diffuse emphysema, bilateral upper and lower lobe bronchiectasis with debris within the dilated bronchi in both lower lobe basal segments. Overall there is slight loss of right lung volume with chronic scarring of the right upper lobe. Mild ipsilateral mediastinal shift to the right. External Record Review External record reviewed: Inpatient record Critical Care Time Critical Care Time Critical Care Time: Yes Total Critical Care Time: 60 Attestation: I have personally provided critical care time. Time includes review of lab data, radiology results, discussion with consultants, and monitoring for potential decompensation. Intervention performed as documented. Discharge Plan Discharge Clinical Impression: Bronchiectasis Patient Disposition: Admitted As Inpatient Prescriptions: No Action (DME) walker Misc See Rx Instructions .Route Qty: 1 0RF Patient Comments: Pt states doesnot use Rx Instructions: with seat and wheels Entresto 24-26 mg tablet 1 tab PO BID Qty: 180 3RF ipratropium-albuterol 0.5 mg-3 mg(2.5 mg base)/3 mL solution for nebulization 3 ml inhalation QID PRN (Reason: for dyspnea) Qty: 180 0RF (DME) blood-glucose meter [FreeStyle Lite Meter] Kit See Rx Instructions .Route Qty: 1 0RF Rx Instructions: test once daily Eliquis 5 mg tablet 5 mg PO BID 90 Days Qty: 180 1RF carvedilol 6.25 mg tablet 6.25 mg PO BID 30 Days Qty: 60 3RF Protocol: Hold for SBP/HR < HOLD for SBP < : 90 HOLD for HR < : 60 lovastatin 10 mg tablet 10 mg PO DAILY 90 Days Qty: 90 3RF albuterol sulfate 90 mcg/actuation HFA aerosol inhaler 2 puff inhalation Q4H PRN (Reason: shortness of breath or wheezing) Qty: 8.5 4RF finasteride 5 mg tablet 5 mg PO DAILY Qty: 90 3RF prednisone 5 mg tablet 5 mg PO DAILY Qty: 30 0RF metformin 500 mg tablet extended release 24 hr 500 mg PO DAILY Qty: 90 0RF tamsulosin 0.4 mg capsule 0.4 mg PO DAILY Qty: 30 1RF docusate sodium 100 mg capsule 100 mg PO BID Qty: 60 0RF bumetanide 1 mg tablet 1 mg PO DAILY 30 Days Qty: 30 0RF Anoro Ellipta 62.5-25 mcg/actuation blister with device 1 ea PO DAILY Qty: 60 6RF omeprazole 40 mg capsule,delayed release(DR/EC) 40 mg PO DAILY 90 Days Qty: 90 11RF loratadine 10 mg Tablet 10 mg PO DAILY Qty: 10 0RF morphine 15 mg tablet 15 mg PO Q4-6H PRN (Reason: pain) Qty: 8 0RF Rx Instructions: The patient may ask for partial fill; Partial Fill upon patient request. tramadol 50 mg tablet 50 mg PO Q6H PRN (Reason: pain) Qty: 20 0RF (DME) FreeStyle Lite Strips Strip See Rx Instructions .Route Qty: 100 5RF Rx Instructions: test once daily (DME) lancets [FreeStyle Lancets] 28 gauge misc See Rx Instructions .Route Qty: 100 6RF Rx Instructions: Use 1 lancet once a day miscellaneous medical supply Kit 1 ea miscellaneous DAILY Qty: 1 0RF Rx Instructions: 1 box alcohol swabs
--- NOTE | 2023-03-08 14:05 | ECG_ITS ---
Test Reason : chest pressure Blood Pressure : / mmHG Vent. Rate : 088 BPM Atrial Rate : 088 BPM P-R Int : 142 ms QRS Dur : 126 ms QT Int : 386 ms P-R-T Axes : 073 -40 012 degrees QTc Int : 467 ms Normal sinus rhythm Left axis deviation Right bundle branch block Abnormal ECG When compared with ECG of 11-FEB-2023 12:54, No significant change was found Referred By: Radha Powell Electronically Signed By:BEATRIS PERALTA
[2023-03-08 14:42] LABS: MANUAL DIFF FLAG NO
[2023-03-08 14:44] LABS: Basophils Absolute Auto 0.1 X10*3/uL (0.0-0.2); Basophils Percent Auto 0.5 % (0-2); Eosinophils Absolute Auto 0.9 X10*3/uL (0.0-0.4); Eosinophils Percent Auto 7.1 % (0-4); Hematocrit 33.7 % (42.0-52.0); Hemoglobin 10.1 g/dl (14.0-18.0); Imm Gran Abs Auto 0.03 X10*3/uL (0.00-0.03); Imm Gran Pct Auto 0.2 % (0.0-0.4); Lymphocytes Absolute Auto 0.5 X10*3/uL (1.2-4.9); Lymphocytes Percent Auto 4.3 % (20-40); Mean Corpuscular Hemoglobin 23.9 pg (27.0-33.0); Mean Corpuscular Volume 79.7 fL (80.0-98.0); Monocytes Absolute Auto 0.6 X10*3/uL (0.1-1.2); Neutrophils Absolute Auto 10.3 x10*3/uL (2.0-8.3); Neutrophils Percent Auto 82.9 % (45-73); Platelet Count 285 X10*3/uL (160-400); Red Blood Count 4.23 X10*6/uL (4.60-5.80); White Blood Count 12.5 X10*3/uL (4.8-10.8)
[2023-03-08 14:57] LABS: Anion Gap 12 (12-20); Blood Urea Nitrogen 11 mg/dL (9-16); Calcium 8.9 mg/dL (8.4-10.2); Carbon Dioxide 29 mmol/L (22-29); Chloride 102 mmol/L (96-108); Creatinine Clr Calc Pharmacy 64.8; Estimated Glomerular Filt Rate > 60; Glucose Random 157 mg/dL (60-115); Magnesium 1.9 mg/dL (1.6-2.6); Sodium 139 mmol/L (135-145)
[2023-03-08 15:08] LABS: Troponin-I High Sensitivity 2.9 ng/L (<3.5-35.0)
[2023-03-08 15:38] LABS: Influenza A PCR NEGATIVE (Negative); Influenza B PCR NEGATIVE (Negative); Resp Syncy Virus RNA Qual PCR NEGATIVE (Negative); SARS COV2 PCR INHOUSE NEGATIVE (Negative)
[2023-03-08 20:41] VITALS: O2SAT 87
[2023-03-08] MEDS: methylPREDNISolone Sod Succ 125 MG/2 ML VIAL IVPUSH (22:32)
[2023-03-08 23:50] VITALS: BP 105/60; PULSE 84; RESP 20; TEMP 37.1; O2SAT 98
--- NOTE | 2023-03-08 23:57 | PM.IMHP ---
History of Present Illness Date of Service: 03/08/23 Attending physician on admission: Luke Larkin Chief Complaint: WRIGHT 82 year old male with history of bronchiectasis, COPD (on home oxygen), non-ischemic cardiomyopathy NICM), hypertension, hyperlipidemia, type 2 diabetes mellitus, GERD, nephrolithiasis, paroxysmal atrial fibrillation and lumbar degenerative disc disease who was reportedly sent in by his visiting nurse because of increased cough and shortness of breath. He is a poor historian and unable to provide timelines to his condition stating that he has had this problem for years but now gets very short of breath even with minimal exertion. He denies any associated chest pain, fevers or chills. Initial work up done in the emergency room included a chest CT that showed diffuse emphysema with bilateral upper and lower lobe bronchiectasis. He also has slight loss of right lung volume with chronic scarring of the right upper lobe. An assessment of COPD exacerbation was made and he was started on steroids and admission requested. Review of Systems Review of Systems: Yes all other systems are reviewed and are negative [facility] Medical History BPH loc w urin obs/LUTS Urinary retention History of COVID-19 Chronic anticoagulation History of pneumothorax Diabetes Acute and chronic respiratory failure Supplemental oxygen dependent COPD (chronic obstructive pulmonary disease) Kidney stone on left side Paroxysmal atrial fibrillation Hearing loss NICM (nonischemic cardiomyopathy) JESSA (mycobacterium avium-intracellulare) Bronchiectasis Glaucoma Pure hypercholesterolemia GERD (gastroesophageal reflux disease) Congestive heart failure History of MAC infection Essential hypertension Family History Father No problems noted. Mother Medical history unknown Sister Diabetes Daughter In good health Son In good health Brother No problems noted. 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 If so, by whom?: No Do you feel safe in your current relationship?: No Current Relationship Is there a partner from a previous relationship who is making you feel unsafe now?: No Are you made to feel afraid or neglected: No Advance Directives: No Advance Directives Information Provided: No Advance Directives Date on File: 07/12/21 Do you have thoughts of harming others: None Do you have a plan to hurt others: No Plan Recently lost weight without trying: No How much weight loss: Not applicable Eating poorly because of decreased appetite: No Nutrition screen score: 0 Nutrition Risks: No Nutritional Risk Poor oral hygiene: No service: No Current occupational status: retired Cognitive needs: No Hearing needs: Yes Vision needs: Yes Meds Allergies Allergy/AdvReac Type Severity Reaction Status Date / Time Penicillins [PENICILLINS] Allergy Intermediate PASSED Verified 02/28/23 13:31 OUT trazodone Allergy Intermediate tremors Verified 02/28/23 13:31 brimonidine [From Alphagan P] Allergy Unknown Verified 02/28/23 13:31 Home Medications Medication Instructions Recorded Confirmed Last Taken Type albuterol sulfate 90 mcg/actuation 2 puff inhalation Q4H PRN wheezing 03/09/23 03/09/23 Unknown History aerosol inhaler (Ventolin HFA) apixaban 5 mg tablet (Eliquis) 5 mg PO BID 03/09/23 03/09/23 Unknown History bumetanide 1 mg tablet 1 mg PO DAILY 03/09/23 03/09/23 Unknown History docusate sodium 100 mg capsule 100 mg PO BID 03/09/23 03/09/23 Unknown History finasteride 5 mg tablet 5 mg PO DAILY 03/09/23 03/09/23 Unknown History lovastatin 10 mg tablet 10 mg PO DAILY 03/09/23 03/09/23 Unknown History metformin 500 mg tablet,extended 500 mg PO DAILY 03/09/23 03/09/23 Unknown History release 24 hr omeprazole 40 mg capsule,delayed 40 mg PO DAILY 03/09/23 03/09/23 Unknown History release prednisone 5 mg tablet 5 mg PO DAILY 03/09/23 03/09/23 Unknown History sacubitril 24 mg-valsartan 26 mg 1 tab PO BID 03/09/23 03/09/23 Unknown History tablet (Entresto) tamsulosin 0.4 mg capsule 0.4 mg PO DAILY 03/09/23 03/09/23 Unknown History travoprost 0.004 % eye drops 1 drp ophthalmic-Right BEDTIME 03/09/23 03/09/23 Unknown History umeclidinium 62.5 mcg-vilanterol 1 ea inhalation DAILY 03/09/23 03/09/23 Unknown History 25 mcg/actuation powdr for inhalation (Anoro Ellipta) Physical Exam Vital Signs and Narrative: Vital Signs: Last Vital Signs Temp 98.7 F 03/08/23 23:50 Pulse 84 03/08/23 23:50 Resp 20 03/08/23 23:50 BP 105/60 03/08/23 23:50 Pulse Ox 98 03/08/23 23:50 O2 Del Method Nasal Cannula 03/08/23 23:50 O2 Flow Rate 3 03/08/23 23:50 Oxygen Flow Rate 2 03/08/23 14:02 BMI result Body Mass Index 22.8 General: Well nourished. Awake, alert and oriented x 4. No apparent distress Eyes: No pallor or jaundice. PERRLA, EOMI HENT: Moist oral mucus membranes. No oropharyngeal lesions. Neck: Supple. No cervical adenopathy. No JVD Cardiovascular: Regular rate and rhythm. Normal heart sounds. No murmurs, rubs or gallops. No JVD. No peripheral edema. Respiratory: Diminished BS bilaterally with few scattered end expiratory wheezes. No accessory muscle use. Gastrointestinal: Abdomen is soft, non-tender, non-distended. NABS. No hepatosplenomegaly Extremities: No edema. No calf tenderness. Good peripheral pulses Skin - Warm/Dry. No rashes. No mottling. Capillary refill is < 2 seconds Neurological - AAOx4. Intact speech & cognition. Normal gait & balance. CN II - XII grossly intact but not individually tested. No motor or sensory deficits Hematologic: No bleeding. No ecchymosis. No swollen or tender lymph nodes. Psychiatric: Cooperative. Appropriate mood and affect. Results Labs 03/09/23 06:37 03/09/23 06:37 Labs: Laboratory Results - last 24 hr 03/08/23 14:32 MCV 79.7 L MCH 23.9 L MCHC 30.0 L RDW 15.0 Plt Count 285 MPV 9.0 L Immature Gran % (Auto) 0.2 Neut % (Auto) 82.9 H Lymph % (Auto) 4.3 L [place] % (Auto) 5.0 Eos % (Auto) 7.1 H Baso % (Auto) 0.5 Lymph # (Auto) 0.5 L [place] # (Auto) 0.6 Eos # (Auto) 0.9 H Baso # (Auto) 0.1 Abs Immat Gran (auto) 0.03 Absolute Neuts (auto) 10.3 H Absolute Nucleated RBC 0.000 Nucleated RBC % (auto) 0.0 Anion Gap 12 Estim Creat Clear Calc 64.8 Estimated GFR > 60 Random Glucose 157 H Calcium 8.9 Magnesium 1.9 Influenza Type A (PCR) NEGATIVE Influenza Type B (PCR) NEGATIVE RSV RNA Qual (PCR) NEGATIVE SARS-CoV-2 RNA (RT-PCR) NEGATIVE Imaging Radiologist's Impressions: Impressions Chest X-Ray 03/08/23 14:55 IMPRESSION: Hyperinflated lungs with diffuse emphysematous bullous changes in the right upper lobe. There is chronic parenchymal interstitial lung disease similar to previous study from 02/11/2023. No acute consolidation or pleural effusion seen. Chest CT 03/08/23 22:21 IMPRESSION: Diffuse emphysema, bilateral upper and lower lobe bronchiectasis with debris within the dilated bronchi in both lower lobe basal segments. Overall there is slight loss of right lung volume with chronic scarring of the right upper lobe. Mild ipsilateral mediastinal shift to the right. Fleischner guidelines were followed. Assessment and Plan (1) COPD (chronic obstructive pulmonary disease): Qualifiers: COPD type: COPD with acute exacerbation Qualified Code(s): J44.1 - Chronic obstructive pulmonary disease with (acute) exacerbation Status: Acute (2) NICM (nonischemic cardiomyopathy): Status: Acute (3) Paroxysmal atrial fibrillation: Status: Acute (4) Essential hypertension: Status: Acute (5) Pure hypercholesterolemia: Status: Acute Plan 82 year old male with history of bronchiectasis, COPD (on home oxygen), non-ischemic cardiomyopathy (NICM), hypertension, hyperlipidemia, type 2 diabetes mellitus, GERD, nephrolithiasis, paroxysmal atrial fibrillation and lumbar degenerative disc disease here with 1. COPD exacerbation - he presents with worsening exertional dyspnea and cough - his symptoms are concerning for COPD exacerbation - admit and continue on Solu-Medrol, scheduled DuoNeb updrafts and p.r.n. albuterol updrafts. - start Azithromycin for pleiotropic effect - Consult pulmonology for additional input. 2. PAF - now in NSR - resume Eliquis 3. Type 2 diabetes mellitus - resume Metformin - closely monitor blood sugars 4. Hypertension - BP well controlled - resume Carvedilol 5. BPH - asymptomatic - resume Finasteride and Tamsulosin 6. NICM - euvolemic - resume Bumex and Entresto 7. GERD - resume PPI 8. Hyperlipidemia - resume Atorvastatin DVT: Eliquis CODE STATUS: Full code Admission for at least 2 midnights for management of COPD exacerbation Total time managing care of this patient today: 75 minutes. Quality Stroke Does the patient have a stroke diagnosis?: No VTE Prior VTE?: No VTE Risk Level:: Medical - moderate - high VTE Device Contraindication: N/A - Device Ordered VTE Drug Contraindication: N/A - Med Ordered
[2023-03-09] VITALS (8 sets, daily range): BP systolic 112–139; BP diastolic 60–70; PULSE 69–88; RESP 16–20; TEMP 36.1–36.5; O2SAT 95–99; BMI 23.1; BMI 23.0
[2023-03-09 00:15] LABS: B Type Natriuretic Peptide 13 pg/mL (<100)
--- NOTE | 2023-03-09 01:06 | PC.NURSE ---
report given by DEANNA Mitchell and pt transferred.
[2023-03-09] MEDS: 0.9 % Sodium Chloride Flush 3 ML SYRINGE IVFLUSH ×4 (01:10→21:02)
[2023-03-09 06:47] LABS: Basophils Percent Auto 0.1 % (0-2); Eosinophils Percent Auto 0.1 % (0-4); Hematocrit 32.4 % (42.0-52.0); Hemoglobin 9.9 g/dl (14.0-18.0); Imm Gran Abs Auto 0.03 X10*3/uL (0.00-0.03); Imm Gran Pct Auto 0.3 % (0.0-0.4); Lymphocytes Absolute Auto 0.4 X10*3/uL (1.2-4.9); Lymphocytes Percent Auto 4.7 % (20-40); MANUAL DIFF FLAG SCAN; Mean Corpuscular HGB Conc 30.6 g/dl (31.0-36.0); Mean Corpuscular Hemoglobin 24.2 pg (27.0-33.0); Mean Corpuscular Volume 79.2 fL (80.0-98.0); Mean Platelet Volume 9.4 fL (9.4-12.4); Monocytes Percent Auto 0.5 % (2-11); Neutrophils Absolute Auto 8.1 x10*3/uL (2.0-8.3); Neutrophils Percent Auto 94.3 % (45-73); Platelet Count 273 X10*3/uL (160-400); Red Blood Count 4.09 X10*6/uL (4.60-5.80); Red Cell Distribution Width 14.7 % (11.0-16.0); SCAN SMEAR FLAG 1; White Blood Count 8.6 X10*3/uL (4.8-10.8)
[2023-03-09 07:02] LABS: Anion Gap 13 (12-20); Blood Urea Nitrogen 10 mg/dL (9-16); Calcium 8.6 mg/dL (8.4-10.2); Carbon Dioxide 26 mmol/L (22-29); Chloride 103 mmol/L (96-108); Estimated Glomerular Filt Rate > 60; Glucose Random 215 mg/dL (60-115); Potassium 4.1 mmol/L (3.3-5.1); Sodium 138 mmol/L (135-145)
[2023-03-09 07:16] LABS: SLIDE REVIEW VERIFIED
[2023-03-09 07:47] LABS: Glucose, Whole Blood 196 mg/dL (60-115)
[2023-03-09] MEDS: methylPREDNISolone Sod Succ 125 MG/2 ML VIAL 80 MG IVPUSH ×2 (08:29→21:01)
[2023-03-09] MEDS: Docusate Sodium 100 MG CAPSULE PO ×2 (08:31→21:02)
[2023-03-09] MEDS: Azithromycin 500 MG TABLET PO (08:31)
--- NOTE | 2023-03-09 08:42 | PHA.MEDREC ---
Pharmacy Consult ? Medication Reconciliation Pharmacy has completed the medication reconciliation. Spoke to patient (via medical clerk) and confirmed medication list (patient has list in wallet).
--- NOTE | 2023-03-09 09:27 | PM.CNPUL ---
History of Present Illness History of Present Illness Consult date: 03/09/23 Chief complaint: COPD exacerbation Narrative: The patient was seen on exam. The patient is a 82 year old male with history of bronchiectasis, COPD (on home oxygen), non-ischemic cardiomyopathy NICM), hypertension, hyperlipidemia, type 2 diabetes mellitus, GERD, nephrolithiasis, paroxysmal atrial fibrillation and lumbar degenerative disc disease who was reportedly sent in by his visiting nurse because of increased cough and shortness of breath. He is a poor historian and unable to provide timelines to his condition stating that he has had this problem for years but now gets very short of breath even with minimal exertion. He denies any associated chest pain, fevers or chills. Initial work up done in the emergency room included a chest CT that showed diffuse emphysema with bilateral upper and lower lobe bronchiectasis. He also has slight loss of right lung volume with chronic scarring of the right upper lobe. An assessment of COPD exacerbation was made and he was started on steroids. The patient is currently on the floor. His COVID RSV test were negative. He responded well to the current respiratory regimen. His respiratory exam is also improved. Likely the patient can be transitioned to oral therapy soon. He continues on the oxygen supplementation. He has been using the oxygen at home. The patient does have chronic airway disease due to the mycobacterial disease. He has been followed as an outpatient for this condition. Review of Systems Constitutional: Constitutional: Denies daytime sleepiness, Denies excessive sweating, Denies fatigue, Denies fever(s), Denies lethargy, Denies malaise, Denies night sweats, Denies snoring and Denies weight loss Eyes: Eyes: Denies blurry vision and Denies itchy eyes ENT: Denies nasal congestion, Denies post nasal drip, Denies sinus pain, Denies sinus pressure and Denies other ( Thrush) Cardiovascular: Cardiovascular: Denies chest pain, Denies pedal edema, Reports dyspnea, Reports dyspnea on exertion, Denies orthopnea and Denies paroxysmal nocturnal dyspnea Respiratory: Respiratory: Reports chest congestion, Reports cough, Denies hemoptysis, Denies excessive phlegm production, Reports dyspnea, Reports dyspnea on exertion, Denies snoring and Reports wheezing Gastrointestinal: Gastrointestinal: Denies abdominal pain and Denies heartburn Musculoskeletal: Musculoskeletal: Denies myalgias, Denies arthralgias and Denies joint swelling Integumentary/Breasts: Skin/Breast: Denies rash Neurologic: Denies memory loss and Denies seizure-like activity Psychiatric: Psychiatric: Denies abnormal sleep pattern, Denies anxiety and Denies memory loss Endocrine: Endocrine: Denies excessive sweating, Denies fatigue and Denies heat intolerance Hematologic/Lymphatic: Hematologic/Lymphatic: Denies easy bruising Allergic/Immunologic: Allergic/Immunologic: Denies itchy eyes, Denies seasonal rhinorrhea and Reports wheezing PMFSH Past Medical History Medical History (Updated 03/09/23 @ 09:30 by Yao Lopez MD) Acute and chronic respiratory failure BPH loc w urin obs/LUTS Urinary retention History of COVID-19 Chronic anticoagulation History of pneumothorax Diabetes Supplemental oxygen dependent COPD (chronic obstructive pulmonary disease) Kidney stone on left side Paroxysmal atrial fibrillation Hearing loss NICM (nonischemic cardiomyopathy) JESSA (mycobacterium avium-intracellulare) Bronchiectasis Glaucoma Pure hypercholesterolemia GERD (gastroesophageal reflux disease) Congestive heart failure History of MAC infection Essential hypertension Family History Family History Father No problems noted. Mother Medical history unknown Sister Diabetes Daughter In good health Son In good health Brother No problems noted. Surgical History Surgical History History of transurethral resection of bladder tumor (TURBT) History of cataract surgery History of left inguinal hernia repair History of bronchoscopy History of colonoscopy History of lumbar surgery History of cystoscopy Social History Social History Household Members: None Housing: Apartment Are you a primary human services care specialist to a significant other at home: No Do you presently have visiting nurse or other home services: Yes (spinner hand services) Alcohol intake: former Comment: no cameras available Patient Tobacco Use Status: Former Tobacco user Quit Date: 2012 Tobacco use type: Cigarette Smoked in Last 30 Days: No e-Cigarette/Vaping Use: Never Used Second Hand Smoke Exposure: No Use of substances other than those prescribed or required for medical reasons: No Currently Displaying Signs/Symptoms of Drug Intoxication Withdrawal: No Have you been hit, kicked, punched, or otherwise hurt by someone within the past year? If so, by whom?: No Do you feel safe in your current relationship?: No Current Relationship Is there a partner from a previous relationship who is making you feel unsafe now?: No Are you made to feel afraid or neglected: No Advance Directives: No Advance Directives Information Provided: No Advance Directives Date on File: 07/12/21 Do you have thoughts of harming others: None Do you have a plan to hurt others: No Plan Recently lost weight without trying: No How much weight loss: Not applicable Eating poorly because of decreased appetite: No Nutrition screen score: 0 Nutrition Risks: No Nutritional Risk Poor oral hygiene: No service: No Current occupational status: retired Cognitive needs: No Hearing needs: Yes Vision needs: Yes Meds Allergies Allergy/AdvReac Type Severity Reaction Status Date / Time Penicillins [PENICILLINS] Allergy Intermediate PASSED Verified 02/28/23 13:31 OUT trazodone Allergy Intermediate tremors Verified 02/28/23 13:31 brimonidine [From Alphagan P] Allergy Unknown Verified 02/28/23 13:31 Active Medications: Current Medications Acetaminophen (Acetaminophen 325 Mg Tablet) 650 mg PO Q6H PRN PRN Reason: Pain, Mild (Pain Scale 1-3) Al Hydroxide/Mg Hydroxide (Magnesium Hydrox/Alum Hydrox 30 Ml Oral.Susp) 30 ml PO Q4H PRN PRN Reason: Heartburn/Nausea Albuterol Sulfate (Albuterol Sulfate (0.083%) 2.5 Mg/3 Ml Vial.Neb) 2.5 mg INHALE Q4H PRN PRN Reason: Shortness of Breath/Wheezing Albuterol/Ipratropium (Albuterol/Iprat 2.5/0.5mg 3 Ml Ampul.Neb) 3 ml INHALE RQ4H WHILE AWAKE [facility] Azithromycin (Azithromycin 500 Mg Tablet) 500 mg PO Q24H [facility] Last Admin: 03/09/23 08:31 Dose: 500 mg Dextrose (Dextrose 50 % 25 Gm/50 Ml Syringe) 25 gm IVPUSH Q15M PRN; Protocol PRN Reason: per Hypoglycemia Standing Ord. Docusate Sodium (Docusate Sodium 100 Mg Capsule) 100 mg PO BID [facility] Last Admin: 03/09/23 08:31 Dose: 100 mg Glucose (Glucose Gel 15 Gm Gel..Gram.) 15 gm PO Q15M PRN; Protocol PRN Reason: per Hypoglycemia Standing Ord. Insulin Human Lispro (Insulin Lispro 100 Unit/Ml 3 Ml Vial) 0 unit SUBCUT QIDACHS [facility]; Protocol Melatonin (Melatonin 3 Mg Tablet) 6 mg PO BEDTIME PRN PRN Reason: Insomnia Methylprednisolone Sodium Succinate (Methylprednisolone Sod Succ 125 Mg/2 Ml Vial) 80 mg IVPUSH BID [facility] Last Admin: 03/09/23 08:29 Dose: 80 mg Ondansetron HCl (Ondansetron Hcl 4 Mg/2 Ml Vial) 4 mg IVPUSH Q8H PRN PRN Reason: Nausea and Vomiting Sodium Chloride (0.9 % Sodium Chloride Flush 3 Ml Syringe) 3 ml IVFLUSH QSHIFT [facility] Last Admin: 03/09/23 08:30 Dose: 3 ml Home Medications Medication Instructions Recorded Confirmed Last Taken Type albuterol sulfate 90 mcg/actuation 2 puff inhalation Q4H PRN wheezing 03/09/23 03/09/23 Unknown History aerosol inhaler (Ventolin HFA) apixaban 5 mg tablet (Eliquis) 5 mg PO BID 03/09/23 03/09/23 03/08/23 History bumetanide 1 mg tablet 1 mg PO DAILY 03/09/23 03/09/23 Unknown History docusate sodium 100 mg capsule 100 mg PO BID 03/09/23 03/09/23 03/08/23 History finasteride 5 mg tablet 5 mg PO DAILY 03/09/23 03/09/23 03/08/23 History lovastatin 10 mg tablet 10 mg PO DAILY 03/09/23 03/09/23 03/08/23 History metformin 500 mg tablet,extended 500 mg PO DAILY 03/09/23 03/09/23 03/08/23 History release 24 hr omeprazole 40 mg capsule,delayed 40 mg PO DAILY 03/09/23 03/09/23 03/08/23 History release prednisone 5 mg tablet 5 mg PO DAILY 03/09/23 03/09/23 Unknown History sacubitril 24 mg-valsartan 26 mg 1 tab PO BID 03/09/23 03/09/23 03/08/23 History tablet (Entresto) tamsulosin 0.4 mg capsule 0.4 mg PO DAILY 03/09/23 03/09/23 03/07/23 History travoprost 0.004 % eye drops 1 drp ophthalmic-Right BEDTIME 03/09/23 03/09/23 03/07/23 History Physical Exam Vital Signs: Vital Signs: Last Vital Signs Temp 96.9 F 03/09/23 07:22 Pulse 85 03/09/23 07:22 Resp 18 03/09/23 07:22 BP 130/65 03/09/23 07:22 Pulse Ox 97 03/09/23 07:22 O2 Del Method Nasal Cannula 03/09/23 07:22 O2 Flow Rate 2 03/09/23 07:22 Oxygen Flow Rate 2 03/08/23 14:02 BMI result Body Mass Index 23.0 Const: General: cooperative, healthy appearing, comfortable, no acute distress, well developed, alert and awake Orientation/consciousness: oriented to person Limitations: no limitations HEENT: Head: Yes normal to inspection, Yes normocephalic and Yes atraumatic Eyes: General: appearance normal, both eyes and all related structures Neck: Neck: Yes normal visual inspection Chest: Chest palpation & inspection: normal inspection of the chest Resp: Other: O2 dependent via nasal cannula Effort & Inspection: normal respiratory effort Auscultation: rhonchi and diminished lung sounds Cardio: Rate: regular rate Rhythm: regular rhythm GI: Inspection: Yes normal to inspection : General: Yes no CVA tenderness Back/Spine/Pelvis: Back: no CVA tenderness Skin: General skin exam: no rashes or lesions noted Neuro: General: oriented to person Extrem: General: Yes normal to inspection Psych: Appearance: grossly normal and well kempt Mental Status: mental status grossly normal Speech and movement: Normal speech and movement present and Clear speech present Affect: normal affect Attitude: cooperative Thought process: Normal thought process present Thought content: Normal thought content present Insight: Fair insight present (Psych) Judgement: Fair judgement present (Psych) Results Laboratory Findings 03/09/23 06:37 03/09/23 06:37 Abnormal lab findings: Abnormal Labs 03/08/23 03/09/23 03/09/23 14:32 06:37 07:41 WBC 12.5 H RBC 4.23 L 4.09 L Hgb 10.1 L 9.9 L Hct 33.7 L 32.4 L MCV 79.7 L 79.2 L MCH 23.9 L 24.2 L MCHC 30.0 L 30.6 L MPV 9.0 L Neut % (Auto) 82.9 H 94.3 H Lymph % (Auto) 4.3 L 4.7 L [place] % (Auto) 0.5 L Eos % (Auto) 7.1 H Lymph # (Auto) 0.5 L 0.4 L [place] # (Auto) 0.0 L Eos # (Auto) 0.9 H Absolute Neuts (auto) 10.3 H POC Glucose 196 H Random Glucose 157 H 215 H Assessment and Plan (1) Acute and chronic respiratory failure: Qualifiers: Respiratory failure complication: hypoxia Qualified Code(s): J96.21 - Acute and chronic respiratory failure with hypoxia Status: Acute (2) Bronchiectasis: Qualifiers: Bronchiectasis type: with acute exacerbation Qualified Code(s): J47.1 - Bronchiectasis with (acute) exacerbation Status: Acute (3) COPD (chronic obstructive pulmonary disease): Qualifiers: COPD type: COPD with acute exacerbation Qualified Code(s): J44.1 - Chronic obstructive pulmonary disease with (acute) exacerbation Status: Acute (4) Supplemental oxygen dependent: Status: Acute Plan solumedrol x 1 day, then switch to PO prednisone continue Azithromycin supplemental oxygen to keep pox>90% Nebs Q4 hours Procedures Date of Service Date of Service: 03/09/23
[2023-03-09 11:21] LABS: Glucose, Whole Blood 259 mg/dL (60-115)
[2023-03-09] MEDS: Insulin Lispro 100 UNIT/ML 3 ML VIAL SUBCUT (11:27)
--- NOTE | 2023-03-09 11:29 | MHC.CM.PN ---
Addendum entered by Beryl Koroma RN 03/09/23 15:55: Patient is active w/ [facility]. Addendum entered by Beryl Koroma RN 03/09/23 11:36: Per [facility] he is not currently active, discharged in October, but will accept patient if services are needed. Original Note: CM met with patient at bedside via president and chief commercial officer. IMM delivered. Patient reports he is from home alone, has a PSYCHIATRIC LPN 2 hrs/day M-F that assists with grocery shopping, home making, etc. Also active w/ [facility] for SN. Return referral placed to confirm. Awaiting response. States he is independent w/ ambulation and ADL's. Has home O2, but is unsure of supplier, states his PSYCHIATRIC LPN coordinates this. Also has a shower chair. PCP: Olga Calzada MD HCP: on file, Leti Brunner [phone] (PSYCHIATRIC LPN/friend) DP: Goal is home, resume services. States he can drive himself and has car in the lot. Will check with RN for any safety concerns closer to DC. CM will continue to follow for dc needs.
[2023-03-09] MEDS: Albuterol/Iprat 2.5/0.5MG 3 ML AMPUL.NEB INHALE ×3 (11:41→20:19)
[2023-03-09] MEDS: Omeprazole 40 MG CAPSULE.DR PO (11:53)
[2023-03-09] MEDS: Sacubitril/Valsartan 24/26 1 TAB TABLET PO ×2 (11:53→21:02)
[2023-03-09] MEDS: Apixaban 5 MG TABLET PO ×2 (11:53→21:02)
[2023-03-09] MEDS: carvediloL 6.25 MG TABLET PO ×2 (11:53→21:02)
[2023-03-09 16:27] LABS: Glucose, Whole Blood 136 mg/dL (60-115)
--- NOTE | 2023-03-09 17:24 | HO.PM.IMPN ---
Subjective Subjective Date of Service: 03/09/23 Interval History: seen and examined this morning follow up for shortness of breath history obtained with assistance of spnaish foreign language interpreter patient feeling better, but still with sob and cough productive of yellow phlegm Review of Systems Review of Systems: Yes all other systems are reviewed and are negative Constitutional Constitutional: Denies chills and Denies fever(s) Cardiovascular Cardiovascular: Denies chest pain, Denies palpitations and Reports dyspnea Respiratory Respiratory: Reports cough and Reports dyspnea Gastrointestinal Gastrointestinal: Denies abdominal pain Endocrine Endocrine: Denies palpitations Physical Exam Vital Signs: Vital Signs: Last Vital Signs Temp 97.2 F 03/09/23 15:11 Pulse 69 03/09/23 15:51 Resp 16 03/09/23 15:51 BP 123/69 03/09/23 15:11 Pulse Ox 95 03/09/23 15:11 O2 Del Method Nasal Cannula 03/09/23 15:11 O2 Flow Rate 2 03/09/23 15:11 Oxygen Flow Rate 2 03/08/23 14:02 BMI result Body Mass Index 23.0 Const: General: cooperative, comfortable, no acute distress, alert and awake Nutritional Appearance: average body habitus Orientation/consciousness: patient oriented x3 Resp: Other: scattered wheeze Effort & Inspection: normal respiratory effort, able to speak in complete sentences, no respiratory distress and no use of accessory muscles Cardio: Rate: regular rate GI: Inspection: No distended Palpation (GI): Soft to palpation and nontender Neuro: General: patient oriented x3, moves all extremities and CN's II-XI intact bilaterally Extrem: General: Yes no pedal edema Objective Data Active Medications Acetaminophen (Acetaminophen 325 Mg Tablet) 650 mg PO Q6H PRN PRN Reason: Pain, Mild (Pain Scale 1-3) Al Hydroxide/Mg Hydroxide (Magnesium Hydrox/Alum Hydrox 30 Ml Oral.Susp) 30 ml PO Q4H PRN PRN Reason: Heartburn/Nausea Albuterol Sulfate (Albuterol Sulfate (0.083%) 2.5 Mg/3 Ml Vial.Neb) 2.5 mg INHALE Q4H PRN PRN Reason: Shortness of Breath/Wheezing Albuterol/Ipratropium (Albuterol/Iprat 2.5/0.5mg 3 Ml Ampul.Neb) 3 ml INHALE RQ4H WHILE AWAKE [facility] Last Admin: 03/09/23 15:48 Dose: 3 ml Documented By: SHARON Apixaban (Apixaban 5 Mg Tablet) 5 mg PO BID [facility] Last Admin: 03/09/23 11:53 Dose: 5 mg Documented By: DANNY Azithromycin (Azithromycin 500 Mg Tablet) 500 mg PO Q24H [facility] Last Admin: 03/09/23 08:31 Dose: 500 mg Documented By: DANNY Bumetanide (Bumetanide 1 Mg Tablet) 1 mg PO DAILY [facility]; Protocol Carvedilol (Carvedilol 6.25 Mg Tablet) 6.25 mg PO BID [facility]; Protocol Last Admin: 03/09/23 11:53 Dose: 6.25 mg Documented By: DANNY Dextrose (Dextrose 50 % 25 Gm/50 Ml Syringe) 25 gm IVPUSH Q15M PRN; Protocol PRN Reason: per Hypoglycemia Standing Ord. Docusate Sodium (Docusate Sodium 100 Mg Capsule) 100 mg PO BID [facility] Last Admin: 03/09/23 08:31 Dose: 100 mg Documented By: DANNY Finasteride (Finasteride 5 Mg Tablet) 5 mg PO DAILY [facility] Glucose (Glucose Gel 15 Gm Gel..Gram.) 15 gm PO Q15M PRN; Protocol PRN Reason: per Hypoglycemia Standing Ord. Guaifenesin (Guaifenesin La 600 Mg Tab.Er.12h) 600 mg PO BID [facility] Insulin Human Lispro (Insulin Lispro 100 Unit/Ml 3 Ml Vial) 0 unit SUBCUT QIDACHS [facility]; Protocol Last Admin: 03/09/23 16:47 Dose: Not Given Documented By: DANNY Non-Admin Reason: No Insulin Coverage Melatonin (Melatonin 3 Mg Tablet) 6 mg PO BEDTIME PRN PRN Reason: Insomnia Methylprednisolone Sodium Succinate (Methylprednisolone Sod Succ 125 Mg/2 Ml Vial) 80 mg IVPUSH BID [facility] Last Admin: 03/09/23 08:29 Dose: 80 mg Documented By: DANNY Omeprazole (Omeprazole 40 Mg Capsule.) 40 mg PO DAILY@0630 [facility] Last Admin: 03/09/23 11:53 Dose: 40 mg Documented By: DANNY Ondansetron HCl (Ondansetron Hcl 4 Mg/2 Ml Vial) 4 mg IVPUSH Q8H PRN PRN Reason: Nausea and Vomiting Pravastatin Sodium (Pravastatin Sodium 10 Mg Tablet) 10 mg PO DAILY [facility] Sacubitril/Valsartan (Sacubitril/Valsartan 1 Tab Tablet) 1 tab PO BID [facility]; Protocol Last Admin: 03/09/23 11:53 Dose: 1 tab Documented By: DANNY Sodium Chloride (0.9 % Sodium Chloride Flush 3 Ml Syringe) 3 ml IVFLUSH QSHIFT [facility] Last Admin: 03/09/23 17:13 Dose: 3 ml Documented By: DANNY Tamsulosin HCl (Tamsulosin Hcl 0.4 Mg Capsule) 0.4 mg PO DAILY [facility] Labs 03/09/23 06:37 03/09/23 06:37 Labs: Laboratory Results - last 24 hr 03/08/23 03/09/23 03/09/23 23:39 06:37 07:41 MCV 79.2 L MCH 24.2 L MCHC 30.6 L RDW 14.7 Plt Count 273 MPV 9.4 Immature Gran % (Auto) 0.3 Neut % (Auto) 94.3 H Lymph % (Auto) 4.7 L [place] % (Auto) 0.5 L Eos % (Auto) 0.1 Baso % (Auto) 0.1 Lymph # (Auto) 0.4 L [place] # (Auto) 0.0 L Eos # (Auto) 0.0 Baso # (Auto) 0.0 Abs Immat Gran (auto) 0.03 Absolute Neuts (auto) 8.1 Absolute Nucleated RBC 0.000 Nucleated RBC % (auto) 0.0 Smear Tech's Comments VERIFIED Anion Gap 13 Estim Creat Clear Calc 64.0 Estimated GFR > 60 POC Glucose 196 H Random Glucose 215 H Calcium 8.6 B-Natriuretic Peptide 13 03/09/23 03/09/23 11:16 16:06 MCV MCH MCHC RDW Plt Count MPV Immature Gran % (Auto) Neut % (Auto) Lymph % (Auto) [place] % (Auto) Eos % (Auto) Baso % (Auto) Lymph # (Auto) [place] # (Auto) Eos # (Auto) Baso # (Auto) Abs Immat Gran (auto) Absolute Neuts (auto) Absolute Nucleated RBC Nucleated RBC % (auto) Smear Tech's Comments Anion Gap Estim Creat Clear Calc Estimated GFR POC Glucose 259 H 136 H Random Glucose Calcium B-Natriuretic Peptide Assessment and Plan (1) Acute and chronic respiratory failure: Status: Acute (2) Bronchiectasis: Status: Acute Plan 82 year old male with history of bronchiectasis, COPD (on home oxygen), non-ischemic cardiomyopathy (NICM), hypertension, hyperlipidemia, type 2 diabetes mellitus, GERD, nephrolithiasis, paroxysmal atrial fibrillation and lumbar degenerative disc disease here with 1. COPD exacerbation continue on Solu-Medrol, scheduled DuoNeb updrafts and p.r.n. albuterol updrafts. continue Azithromycin seen by pulmonology - agrees with above continue supplemental oxygen 2. PAF HR controlled, continue coreg continue Eliquis 3. Type 2 diabetes mellitus hold Metformin SSI, POCs, ADA diet 4. Hypertension continue Carvedilol 5. BPH - resume Finasteride and Tamsulosin 6. NICM - euvolemic - continue Bumex and Entresto 7. GERD - continue PPI 8. Hyperlipidemia - continue Atorvastatin DVT: Eliquis CODE STATUS: Full code attending - dr. ashraf Requires ongoing inpatient stay for management of COPD exacerbation requring supplemental oxygen and close monitoring of respiratory status Quality Stroke Does the patient have a stroke diagnosis?: No VTE Prior VTE?: No VTE Risk Level:: Medical - moderate - high VTE Device Contraindication: N/A - Device Ordered VTE Drug Contraindication: N/A - Med Ordered
[2023-03-09 20:22] LABS: Glucose, Whole Blood 141 mg/dL (60-115)
[2023-03-09] MEDS: guaiFENesin LA 600 MG TAB.ER.12H PO (21:02)
[2023-03-09] MEDS: Melatonin 3 MG TABLET 6 MG PO (21:02)
[2023-03-09] MEDS: guaiFENesin DM 200/20/10 ML 10 ML SYRUP PO (21:02)
--- NOTE | 2023-03-09 21:31 | MHC.PIE ---
p; pt c/o cough asking for cough syrup i; dr valera notified. new order robitussin q4 prn e; will cont to [facility]
[2023-03-10 03:26] VITALS: BP 106/53; PULSE 69; RESP 16; TEMP 36; O2SAT 93
[2023-03-10] MEDS: Omeprazole 40 MG CAPSULE.DR PO (06:17)
[2023-03-10 07:36] LABS: Glucose, Whole Blood 137 mg/dL (60-115)
[2023-03-10] MEDS: Sacubitril/Valsartan 24/26 1 TAB TABLET PO (07:46)
[2023-03-10] MEDS: Apixaban 5 MG TABLET PO (07:46)
[2023-03-10] MEDS: predniSONE 20 MG TABLET 40 MG PO (07:46)
[2023-03-10] MEDS: Azithromycin 500 MG TABLET PO (07:46)
[2023-03-10] MEDS: 0.9 % Sodium Chloride Flush 3 ML SYRINGE IVFLUSH (07:46)
[2023-03-10] MEDS: Pravastatin Sodium 10 MG TABLET PO (07:47)
[2023-03-10] MEDS: guaiFENesin LA 600 MG TAB.ER.12H PO (07:47)
[2023-03-10] MEDS: Bumetanide 1 MG TABLET PO (07:47)
[2023-03-10] MEDS: Docusate Sodium 100 MG CAPSULE PO (07:47)
[2023-03-10] MEDS: Finasteride 5 MG TABLET PO (07:47)
[2023-03-10] MEDS: Tamsulosin HCL 0.4 MG CAPSULE PO (07:47)
[2023-03-10] MEDS: carvediloL 6.25 MG TABLET PO (07:47)
[2023-03-10 07:48] VITALS: BP 110/62; PULSE 78; RESP 16; TEMP 36.4; O2SAT 96
[2023-03-10] MEDS: Albuterol/Iprat 2.5/0.5MG 3 ML AMPUL.NEB INHALE (08:53)
[2023-03-10 08:56] VITALS: PULSE 84; RESP 16; O2SAT 96
--- NOTE | 2023-03-10 10:51 | PM.DS ---
DS: Providers Provider Date of Service: 03/10/23 Date of admission: 03/08/23 23:55 Date of discharge: 03/10/23 Primary care physician: Olga Calzada MD Consults: 03/09/23 08:16 Consult to Pulmonology Routine Consulting Provider: [facility] [place] Pulmonology Services Reason for consultation: COPD exacerbation Has provider been notified: No Attending physician on discharge: Marnie Huang Discharging clinician: Eileen Zuniga DS: Diagnosis Discharge Diagnosis (1) Acute and chronic respiratory failure: Status: Acute (2) Bronchiectasis: Status: Acute (3) COPD (chronic obstructive pulmonary disease): Status: Acute DS: Summary Hospital Course Hospital Course: From H&P on the day of admission 82 year old male with history of bronchiectasis, COPD (on home oxygen), non-ischemic cardiomyopathy NICM), hypertension, hyperlipidemia, type 2 diabetes mellitus, GERD, nephrolithiasis, paroxysmal atrial fibrillation and lumbar degenerative disc disease who was reportedly sent in by his visiting nurse because of increased cough and shortness of breath. He is a poor historian and unable to provide timelines to his condition stating that he has had this problem for years but now gets very short of breath even with minimal exertion. He denies any associated chest pain, fevers or chills. Initial work up done in the emergency room included a chest CT that showed diffuse emphysema with bilateral upper and lower lobe bronchiectasis. He also has slight loss of right lung volume with chronic scarring of the right upper lobe. An assessment of COPD exacerbation was made and he was started on steroids and admission requested. acute exacerbation of COPD/acute on chronic respiratory failure with hypoxia with underlying JESSA Patient was admitted to the hospital and treated with scheduled and as needed breathing treatments as well as systemic steroids and azithromycin. His breathing improved substantially and he is able to tolerate ambulation without shortness of breath. He does use supplemental oxygen at home but on the day of discharge his oxygen saturation was in the mid to high 90s on room air. He was seen by pulmonology who agreed with current treatment. He will be discharged home to complete a course of steroids. Time Attestation Discharge coordination time: Greater than 30 minutes Quality: Safe Use of Opioids Does Pt have an Active Cancer Diagnosis on the Problem List?: No Quality: Stroke Does the patient have a stroke diagnosis?: No Physical Exam Vital Signs: Vital Signs: Last Vital Signs Temp 97.6 F 03/10/23 07:48 Pulse 84 03/10/23 08:56 Resp 16 03/10/23 08:56 BP 110/62 03/10/23 07:48 Pulse Ox 96 03/10/23 07:48 O2 Del Method Room Air 03/10/23 07:48 O2 Flow Rate 2 03/09/23 19:05 Oxygen Flow Rate 2 03/08/23 14:02 BMI result Body Mass Index 23.0 Const: General: cooperative, comfortable, no acute distress, alert and awake Nutritional Appearance: average body habitus Orientation/consciousness: patient oriented x3 Resp: Other: no wheeze Effort & Inspection: normal respiratory effort, able to speak in complete sentences, no respiratory distress and no use of accessory muscles Cardio: Rate: regular rate GI: Inspection: No distended Palpation (GI): Soft to palpation and nontender Neuro: General: patient oriented x3, moves all extremities and CN's II-XI intact bilaterally Extrem: General: Yes no pedal edema DS: Data Data Completed and Pending Completed studies during hospitalization [Text1]: Procedures Insertion of Infusion Device into Left Brachial Vein, Percutaneous Approach (05/25/22) Insertion of Infusion Device into Right Cephalic Vein, Percutaneous Approach (12/07/21) Insertion of Infusion Device into Superior Vena Cava, Percutaneous Approach (12/07/21) Ultrasonography of Superior Vena Cava, Guidance (12/07/21) Labs on day of discharge: Laboratory Results - last 24 hr 03/09/23 03/09/23 03/09/23 11:16 16:06 20:18 POC Glucose 259 H 136 H 141 H 03/10/23 07:31 POC Glucose 137 H Discharge Plan Discharge Anticipated Discharge Date/Time: 03/10/23 11:01 Patient Disposition: Home, Self-Care Discharge Diagnosis: acute on chronic respiratory failure acute copd exacerbation Referrals: Olga North MD [Primary Care Provider] - 1 Week Discharge Medications: New prednisone 20 mg tablet 40 mg PO DAILY 5 Days Qty: 10 0RF azithromycin 250 mg tablet 250 mg PO DAILY 3 Days Qty: 3 0RF Continued ipratropium-albuterol 0.5 mg-3 mg(2.5 mg base)/3 mL solution for nebulization 3 ml inhalation QID PRN (Reason: for dyspnea) Qty: 180 0RF carvedilol 6.25 mg tablet 6.25 mg PO BID 30 Days Qty: 60 3RF Protocol: Hold for SBP/HR < HOLD for SBP < : 90 HOLD for HR < : 60 Anoro Ellipta 62.5-25 mcg/actuation blister with device 1 ea PO DAILY Qty: 60 6RF bumetanide 1 mg tablet 1 mg PO DAILY docusate sodium 100 mg capsule 100 mg PO BID Eliquis 5 mg tablet 5 mg PO BID Entresto 24-26 mg tablet 1 tab PO BID finasteride 5 mg tablet 5 mg PO DAILY lovastatin 10 mg tablet 10 mg PO DAILY metformin 500 mg tablet extended release 24 hr 500 mg PO DAILY omeprazole 40 mg capsule,delayed release(DR/EC) 40 mg PO DAILY tamsulosin 0.4 mg capsule 0.4 mg PO DAILY travoprost 0.004 % drops 1 drp ophthalmic-Right BEDTIME albuterol sulfate [Ventolin HFA] 90 mcg/actuation HFA aerosol inhaler 2 puff INHALATION Q4H PRN (Reason: wheezing) Held prednisone 5 mg tablet 5 mg PO DAILY Hold Instructions: hold until complete burst of prednisone and then resume home dose No Action (DME) walker Misc See Rx Instructions .Route Qty: 1 0RF Patient Comments: Pt states doesnot use Rx Instructions: with seat and wheels (DME) blood-glucose meter [FreeStyle Lite Meter] Kit See Rx Instructions .Route Qty: 1 0RF Rx Instructions: test once daily (DME) FreeStyle Lite Strips Strip See Rx Instructions .Route Qty: 100 5RF Rx Instructions: test once daily (DME) lancets [FreeStyle Lancets] 28 gauge misc See Rx Instructions .Route Qty: 100 6RF Rx Instructions: Use 1 lancet once a day Discharge Orders: Discharge Order (Routine); Ordered 03/10/23 Ordered By: Eileen Zuniga Activity on Discharge: As tolerated Stand Alone Forms: Patient Portal Discharge page Care Plan Goals: see below Health Concerns: acute copd exacerbation Plan of Treatment: complete course of prednisone and then resume home dose (5mg) of prednisone complete course of antibiotics call to schedule follow up with PCP as needed continue to use oxygen at home as needed to keep oxygen saturation above 90% Assessment: see discharge summary
[2023-03-10 11:27] LABS: Glucose, Whole Blood 163 mg/dL (60-115)
== END 2023-03-10 11:50 | disposition home or self-care (01) | DRG 190 ==
LOC: HO.ED 23:19 → HO.EDOVER 23:59 → HO.S3 03-09 00:05
PROVIDERS: Physician Assistant Medical; Admitting Provider Internal Medicine; Emergency Provider Emergency Medicine; PCP Internal Medicine; Visit Provider Physician Assistant Medical
DX: J47.1 Bronchiectasis with (acute) exacerbation (principal); J96.21 Acute and chronic respiratory failure with hypoxia; I42.8 Other cardiomyopathies; I48.0 Paroxysmal atrial fibrillation; N40.0 Benign prostatic hyperplasia without lower urinary tract symptoms; K21.9 Gastro-esophageal reflux disease without esophagitis; E11.9 Type 2 diabetes mellitus without complications; E78.00 Pure hypercholesterolemia, unspecified; Z20.822 Contact with and (suspected) exposure to COVID-19; Z79.01 Long term (current) use of anticoagulants; Z99.81 Dependence on supplemental oxygen; Z87.891 Personal history of nicotine dependence; Z79.52 Long term (current) use of systemic steroids; Z79.899 Other long term (current) drug therapy
CPT/HCPCS: 0241U; 36415; 71046; 71250; 80048; 82947; 83735; 83880; 84484; 85025; 93005; 94640; 99285; J2930

== ENCOUNTER → 2023-03-08 14:05 | Outpatient (BNV) | payer MEDICARE, MEDICAID, SELFPAY | PROVIDERS: PCP Internal Medicine; Visit Provider Internal Medicine | DX: R94.31 Abnormal electrocardiogram [ECG] [EKG] (principal) | CPT/HCPCS: 93010 ==

== ENCOUNTER → 2023-03-08 23:55 | Outpatient (BNV) | payer MEDICARE, MEDICAID, SELFPAY | PROVIDERS: Admitting Provider Internal Medicine; Emergency Provider Emergency Medicine; PCP Internal Medicine; Visit Provider Internal Medicine | DX: J96.21 Acute and chronic respiratory failure with hypoxia (principal); J47.1 Bronchiectasis with (acute) exacerbation | CPT/HCPCS: 99223; 99232; 99239 ==

== ENCOUNTER → 2023-03-08 23:55 | Outpatient (BNV) | payer MEDICARE, MEDICAID, SELFPAY | PROVIDERS: Admitting Provider Internal Medicine; Emergency Provider Emergency Medicine; PCP Internal Medicine; Visit Provider Hospitalist | DX: J96.21 Acute and chronic respiratory failure with hypoxia (principal); J47.1 Bronchiectasis with (acute) exacerbation; J44.1 Chronic obstructive pulmonary disease with (acute) exacerbation; Z99.81 Dependence on supplemental oxygen | CPT/HCPCS: 99223 ==

== ENCOUNTER 2023-03-18 09:08 | Inpatient (IN) | payer MEDICARE, MEDICAID, SELFPAY ==
[2023-03-18] VITALS (12 sets, daily range): BP systolic 85–135; BP diastolic 39–63; PULSE 72–99; RESP 16–23; TEMP 36.5–37.7; O2SAT 88–98; BMI 21.3
--- NOTE | 2023-03-18 09:20 | ED.GENADULT ---
HPI - General Adult General Chief complaint: General Medical Stated complaint: COUGHING UP BLOOD Time Seen by Provider: 03/18/23 09:13 Source: EMS Mode of arrival: EMS Limitations: no limitations History of Present Illness HPI narrative: 82 YEARS OLD WITH MULTIPLE MEDICAL PROBLEM WHICH INCLUDE BRONCHIECTASIS, COPD O2 DEPENDENT, NONISCHEMIC CARDIOMYOPATHY, DIABETES, PRESENTED TO THE ED WITH CHIEF COMPLAINT OF HEMOPTYSIS SINCE LAST NIGHT. DENIES ANY FEVER VOMITING. Onset (ago): day(s) (1) Location: chest Radiation: non-radiation Severity: moderate Pain Consistency: constant Relieving factors: none Exacerbating factors: none Associated symptoms: denies other symptoms Related Data Home Medications Medication Instructions Recorded Confirmed albuterol sulfate 90 mcg/actuation 2 puff inhalation Q4H PRN wheezing 03/09/23 03/18/23 aerosol inhaler (Ventolin HFA) apixaban 5 mg tablet (Eliquis) 5 mg PO BID 03/09/23 03/18/23 finasteride 5 mg tablet 5 mg PO DAILY 03/09/23 03/18/23 lovastatin 10 mg tablet 10 mg PO DAILY 03/09/23 03/18/23 metformin 500 mg tablet,extended 500 mg PO DAILY 03/09/23 03/18/23 release 24 hr omeprazole 40 mg capsule,delayed 40 mg PO DAILY 03/09/23 03/18/23 release prednisone 5 mg tablet 5 mg PO DAILY 03/09/23 03/09/23 sacubitril 24 mg-valsartan 26 mg 1 tab PO BID 03/09/23 03/18/23 tablet (Entresto) tamsulosin 0.4 mg capsule 0.4 mg PO DAILY 03/09/23 03/18/23 travoprost 0.004 % eye drops 1 drp ophthalmic-Right BEDTIME 03/09/23 03/18/23 Previous Rx's Medication Instructions Recorded walker #1 ea 03/20/22 ipratropium 0.5 mg-albuterol 3 mg 3 ml inhalation QID PRN for 08/31/22 (2.5 mg base)/3 mL nebulization dyspnea #180 mL soln blood-glucose meter (FreeStyle #1 ea 09/13/22 Lite Meter kit) blood sugar diagnostic (FreeStyle #100 ea 10/30/22 Lite Strips) lancets 28 gauge (FreeStyle #100 ea 10/30/22 Lancets) carvedilol 6.25 mg tablet 6.25 mg PO BID 30 days #60 tabs 11/15/22 Anoro Ellipta 62.5 mcg-25 1 ea PO DAILY #60 ea 02/12/23 mcg/actuation powder for inhalation (umeclidinium-vilanterol) azithromycin 250 mg tablet 250 mg PO DAILY 3 days #3 tabs 03/10/23 prednisone 20 mg tablet 40 mg (2 x 20 mg) PO DAILY 5 days 03/10/23 #10 tabs bumetanide 1 mg tablet 1 mg PO DAILY 90 days #90 tabs 03/13/23 docusate sodium 100 mg capsule 100 mg PO BID 90 days #180 caps 03/13/23 Allergies Allergy/AdvReac Type Severity Reaction Status Date / Time Penicillins [PENICILLINS] Allergy Intermediate PASSED Verified 03/18/23 09:18 OUT trazodone Allergy Intermediate tremors Verified 03/18/23 09:18 brimonidine [From Alphagan P] Allergy Unknown Verified 03/18/23 09:18 diphenhydramine Allergy Unknown Verified 03/18/23 09:18 [From Benadryl] Review of Systems Cardiovascular: Cardiovascular: Reports no additional cardiovascular complaints Respiratory: Respiratory: Reports cough and Reports hemoptysis [facility] Past Medical History Attestation statement: The following information was validated with the patient. Source: unable to obtain Onset Date is defined in the Problem List Problems that require an onset date and time if occurred within 24 hrs of arrival to the ED Aortic Dissection and Rupture; Neurologic impairment; Cardiopulmonary Arrest; Endotracheal Intubation; Insertion or Replacement of Mechanical Circulatory Assist Device Medical History Acute and chronic respiratory failure BPH loc w urin obs/LUTS Urinary retention History of COVID-19 Chronic anticoagulation History of pneumothorax Diabetes Supplemental oxygen dependent COPD (chronic obstructive pulmonary disease) Kidney stone on left side Paroxysmal atrial fibrillation Hearing loss NICM (nonischemic cardiomyopathy) JESSA (mycobacterium avium-intracellulare) Bronchiectasis Glaucoma Pure hypercholesterolemia GERD (gastroesophageal reflux disease) Congestive heart failure History of MAC infection Essential hypertension Surgical History History of transurethral resection of bladder tumor (TURBT) History of cataract surgery History of left inguinal hernia repair History of bronchoscopy History of colonoscopy History of lumbar surgery History of cystoscopy Family History Family History Father No problems noted. Mother Medical history unknown Sister Diabetes Daughter In good health Son In good health Brother No problems noted. 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) Alcohol intake: former Comment: pt refused bed alarms Patient Tobacco Use Status: Former Tobacco user Quit Date: 2012 Tobacco use type: Cigarette Smoked in Last 30 Days: No e-Cigarette/Vaping Use: Never Used Second Hand Smoke Exposure: No Use of substances other than those prescribed or required for medical reasons: No Advance Directives: Yes Advance Directives on File: Yes Advance Directives Date on File: 02/03/22 service: No Current occupational status: retired Cognitive needs: No Hearing needs: Yes Vision needs: Yes Physical Exam ED Vital Signs: Vital Signs - 24 hr 03/18/23 09:19 03/18/23 10:29 03/18/23 10:30 Temperature 99.8 F 98.4 F Pulse Rate 99 89 Respiratory Rate 22 H 22 H Blood Pressure 124/61 102/56 L Pulse Oximetry 93 88 L 92 Oxygen Delivery Method Nasal Cannula Nasal Cannula Nasal Cannula Oxygen Flow Rate 3 4 03/18/23 10:51 03/18/23 12:06 Temperature 98.9 F Pulse Rate 86 87 Respiratory Rate 22 H 23 H Blood Pressure 107/59 L Pulse Oximetry 97 Oxygen Delivery Method Nasal Cannula Oxygen Flow Rate 4 BMI result Body Mass Index 21.3 Const General: cooperative Nutritional Appearance: well nourished Orientation/consciousness: patient oriented x3 Limitations: no limitations HENMT Head: Yes normal to inspection General nose exam: Normal external nose present Face and sinus: Yes normal facial exam Mouth: Normal oral and palatal mucosa present Neck Neck: Yes normal visual inspection Resp Effort & Inspection: normal respiratory effort Auscultation: rhonchi Cardio Jugular venous distension: no JVD Rate: regular rate Rhythm: regular rhythm GI Inspection: Yes normal to inspection Palpation (GI): Soft to palpation, not firm, nontender and no guarding Skin General skin exam: no rashes or lesions noted, elasticity normal and turgor normal Lesions: no lesions Rashes: no rashes Neuro General: patient oriented x3 Course Reevaluation(s) Reevaluation #1: remain stable clinically Time: 14:03 Medications Administered Discontinued Medications Generic Name Dose Route Start Last Admin Trade Name Freq PRN Reason Stop Dose Admin Albuterol Sulfate 2.5 mg/ 5 mg 03/18/23 10:43 03/18/23 10:50 Albuterol Sulfate 2.5 mg INHALE 03/18/23 10:44 5 mg ONCE ONE Administration Doxycycline Hyclate 100 mg/ 250 mls @ 166.67 mls/hr 03/18/23 11:02 03/18/23 13:01 Sodium Chloride IV 03/18/23 12:31 Infused ONCE ONE Infusion Methylprednisolone Sodium Succinate 125 mg 03/18/23 10:28 03/18/23 10:38 Methylprednisolone Sod Succ 125 Mg/2 Ml Vial IVPUSH 03/18/23 10:29 125 mg ONCE ONE Administration Medical Decision Making Medical Decision Making [facility] Narrative: Patient presented to the emergency department with chief complaint of coughing up blood he has history of bronchiectasis/ COPD. Will obtain chest x-ray labs and will reassess Differential Diagnosis Differential Diagnoses: The differential diagnosis associated with the presentation includes COPD exacerbation/ bronchiectasis /COVID infection Admission/Observation Consideration of admission/observation: Escalation of care including admission/observation considered Consult Healthcare Provider Management of the patient was discussed with: Hospitalist Lab Data [facility] Lab Attestation statement: I reviewed the patient's lab results. 03/18/23 09:35 03/18/23 09:35 Labs: Lab Results 03/18/23 03/18/23 03/18/23 Range/Units 09:28 09:35 09:37 WBC 17.5 H (4.8-10.8) X10*3/uL RBC 4.68 (4.60-5.80) X10*6/uL Hgb 11.1 L (14.0-18.0) g/dl Hct 36.9 L (42.0-52.0) % MCV 78.8 L (80.0-98.0) fL MCH 23.7 L (27.0-33.0) pg MCHC 30.1 L (31.0-36.0) g/dl RDW 15.2 (11.0-16.0) % Plt Count 274 (160-400) X10*3/uL MPV 8.8 L (9.4-12.4) fL Immature Gran % (Auto) 0.5 H (0.0-0.4) % Neut % (Auto) 89.5 H (45-73) % Lymph % (Auto) 1.9 L (20-40) % [place] % (Auto) 3.7 (2-11) % Eos % (Auto) 4.2 H (0-4) % Baso % (Auto) 0.2 (0-2) % Lymph # (Auto) 0.3 L (1.2-4.9) X10*3/uL [place] # (Auto) 0.7 (0.1-1.2) X10*3/uL Eos # (Auto) 0.7 H (0.0-0.4) X10*3/uL Baso # (Auto) 0.0 (0.0-0.2) X10*3/uL Abs Immat Gran (auto) 0.08 H (0.00-0.03) X10*3/uL Absolute Neuts (auto) 15.6 H (2.0-8.3) x10*3/uL Absolute Nucleated RBC 0.000 (0.0-0.012) X10*3/uL Nucleated RBC % (auto) 0.0 (0.0-0.2) /100WBC PT 24.1 H D (11.1-13.3) SEC INR 2.0 H (0.9-1.1) APTT 32.2 (26.0-36.4) SEC VBG pH 7.47 H (7.32-7.43) VBG pCO2 50 mmHg VBG pO2 36 mmHg VBG HCO3 37 H (22-26) mmol/L VBG O2 Saturation 61.0 % VBG Base Excess 11.7 mmol/L Sodium 134 L (135-145) mmol/L Potassium 3.5 (3.3-5.1) mmol/L Chloride 95 L (96-108) mmol/L Carbon Dioxide 31 H (22-29) mmol/L Anion Gap 12 (12-20) BUN 15 (9-16) mg/dL Creatinine 0.76 (0.5-1.4) mg/dL Estim Creat Clear Calc 74.0 Estimated GFR > 60 Random Glucose 207 H (60-115) mg/dL Lactic Acid F/U @ 2Hr (0.5-2.0) mmol/L Calcium 8.8 (8.4-10.2) mg/dL Total Bilirubin 0.4 (0.0-1.0) mg/dL AST 12 (5-37) U/L ALT 19 (0-40) U/L Alkaline Phosphatase 61 (39-117) U/L Troponin I High Sens 3.3 (<3.5-35.0) ng/L Total Protein 6.8 (6.5-8.0) g/dL Albumin 3.3 L (3.5-5.0) g/dL Urine Color Urine Appearance Urine pH (5.0-9.0) Ur Specific [place] (1.005-1.025) Urine Protein (Neg-Trace) mg/dL Urine Glucose (UA) (Negative) mg/dL Urine Ketones (Negative) mg/dL Urine Blood (Negative) Urine Nitrite (Negative) Ur Leukocyte Esterase (Negative) Urine RBC (0-2) /HPF Urine WBC (0-5) /HPF Ur Squamous Epith Cells (0-2) /HPF Urine Bacteria (None Seen) Hyaline Casts (0-2) /LPF Influenza Type A (PCR) NEGATIVE (Negative) Influenza Type B (PCR) NEGATIVE (Negative) RSV RNA Qual (PCR) NEGATIVE (Negative) SARS-CoV-2 RNA (RT-PCR) POSITIVE A (Negative) 03/18/23 Range/Units 10:07 WBC (4.8-10.8) X10*3/uL RBC (4.60-5.80) X10*6/uL Hgb (14.0-18.0) g/dl Hct (42.0-52.0) % MCV (80.0-98.0) fL MCH (27.0-33.0) pg MCHC (31.0-36.0) g/dl RDW (11.0-16.0) % Plt Count (160-400) X10*3/uL MPV (9.4-12.4) fL Immature Gran % (Auto) (0.0-0.4) % Neut % (Auto) (45-73) % Lymph % (Auto) (20-40) % [place] % (Auto) (2-11) % Eos % (Auto) (0-4) % Baso % (Auto) (0-2) % Lymph # (Auto) (1.2-4.9) X10*3/uL [place] # (Auto) (0.1-1.2) X10*3/uL Eos # (Auto) (0.0-0.4) X10*3/uL Baso # (Auto) (0.0-0.2) X10*3/uL Abs Immat Gran (auto) (0.00-0.03) X10*3/uL Absolute Neuts (auto) (2.0-8.3) x10*3/uL Absolute Nucleated RBC (0.0-0.012) X10*3/uL Nucleated RBC % (auto) (0.0-0.2) /100WBC PT (11.1-13.3) SEC INR (0.9-1.1) APTT (26.0-36.4) SEC VBG pH (7.32-7.43) VBG pCO2 mmHg VBG pO2 mmHg VBG HCO3 (22-26) mmol/L VBG O2 Saturation % VBG Base Excess mmol/L Sodium (135-145) mmol/L Potassium (3.3-5.1) mmol/L Chloride (96-108) mmol/L Carbon Dioxide (22-29) mmol/L Anion Gap (12-20) BUN (9-16) mg/dL Creatinine (0.5-1.4) mg/dL Estim Creat Clear Calc Estimated GFR Random Glucose (60-115) mg/dL Lactic Acid F/U @ 2Hr 1.2 (0.5-2.0) mmol/L Calcium (8.4-10.2) mg/dL Total Bilirubin (0.0-1.0) mg/dL AST (5-37) U/L ALT (0-40) U/L Alkaline Phosphatase (39-117) U/L Troponin I High Sens (<3.5-35.0) ng/L Total Protein (6.5-8.0) g/dL Albumin (3.5-5.0) g/dL Urine Color Yellow Urine Appearance Clear Urine pH 6.5 (5.0-9.0) Ur Specific [place] <= 1.005 (1.005-1.025) Urine Protein Negative (Neg-Trace) mg/dL Urine Glucose (UA) Negative (Negative) mg/dL Urine Ketones Negative (Negative) mg/dL Urine Blood Trace H (Negative) Urine Nitrite Negative (Negative) Ur Leukocyte Esterase Negative (Negative) Urine RBC 0-2 (0-2) /HPF Urine WBC 0-5 (0-5) /HPF Ur Squamous Epith Cells 0-2 (0-2) /HPF Urine Bacteria None Seen (None Seen) Hyaline Casts 0-2 (0-2) /LPF Influenza Type A (PCR) (Negative) Influenza Type B (PCR) (Negative) RSV RNA Qual (PCR) (Negative) SARS-CoV-2 RNA (RT-PCR) (Negative) Independent Interpretation I performed an independent interpretation of an: EKG and Plain X-Ray Interpretation: SiNUS TACH 105 RBBB personally interpreted by me I personally reviewed the chest x-ray and interpreted the chest x-ray. He has chronic changes. He has an abnormal chest x-ray a baseline. No changes from the prior Radiology Impression Discussion of test interpretation with radiology: I have reviewed the radiologist's reading. Radiologist Impression: COMPARISON: Chest 03/08/2023 TECHNIQUE: Frontal view of the chest was obtained. FINDINGS: The lungs are hyperinflated with bilateral chronic interstitial lung disease. Large bullous changes are seen in the right upper lobe. There is tenting of right hemidiaphragm likely from scarring. No acute consolidation or pleural effusion seen. There is no visible pneumothorax. No gross bony abnormality seen. There is old healed left seventh posterior rib fracture XR/XR chest 1V IMPRESSION: 1. Hyperinflated lungs with chronic interstitial lung disease. No acute consolidation or pleural effusion seen. 2. There is tenting of right hemidiaphragm likely from scarring. Dictated By: Jorden Li MD Signed By: <Electronically signed by Jorden Li MD in OV> 03/18/23 1050 DD/ 1026 Independent Historian Clinical information obtained from an independent historian. History obtained from or confirmed by: EMS External Record Review External record reviewed: Inpatient record Tests considered The following testing was considered but not selected: CT scan of the chest however will not change the treatment Prescription Management I considered prescription management with: Antibiotic Chronic Conditions Patient?s care impacted by: Diabetes and Other ( COPD/ bronchiectasis / diabetes) Discharge Plan Discharge Clinical Impression: Hemoptysis, COVID-19 Bronchiectasis Qualifiers: Bronchiectasis type: with acute exacerbation Qualified Code(s): J47.1 - Bronchiectasis with (acute) exacerbation Patient Disposition: Admitted As Inpatient
--- NOTE | 2023-03-18 09:36 | PC.NURSE ---
a&ox4, vss and up to date. pt sinus tachy on the cardiac technologist. pt comes in today d/t productive cough w/ blood tinged sputum x 1 day. pt actively coughing w/ mud colored blood present. emesis bag provided. pt seen by ED provider. 20gIV placed in the right AC - labs drawn/sent to lab. ekg performed by tech. pt displays w/ sob/wob at this time. pursed lip breathing noted.crackles noted throughout in all marcial. no edema noted to lower extremities bilaterally. currently on 3L via NC. 2L via NC baseline at home. respirations even and labored. call yin placed within reach.
[2023-03-18 09:55] LABS: Alanine Aminotransferase 19 U/L (0-40); Albumin Level 3.3 g/dL (3.5-5.0); Alkaline Phosphatase 61 U/L (39-117); Anion Gap 12 (12-20); Aspartate Amino Transferase 12 U/L (5-37); Bilirubin Total 0.4 mg/dL (0.0-1.0); Blood Urea Nitrogen 15 mg/dL (9-16); Calcium 8.8 mg/dL (8.4-10.2); Carbon Dioxide 31 mmol/L (22-29); Chloride 95 mmol/L (96-108); Estimated Glomerular Filt Rate > 60; Glucose Random 207 mg/dL (60-115); Potassium 3.5 mmol/L (3.3-5.1); Sodium 134 mmol/L (135-145); Total Protein 6.8 g/dL (6.5-8.0)
--- NOTE | 2023-03-18 10:14 | PC.NURSE ---
blood cultures and lactic obtained/sent to lab by tech.
--- NOTE | 2023-03-18 10:22 | PC.NURSE ---
xray bedside at this time.
--- NOTE | 2023-03-18 10:31 | PC.NURSE ---
pt was on 3L via NC but O2 dropped to 88% - pt placed on 3L via NC - now resting at 92%. sob/wob still noted at this time. respirations even/labored. pt seemingly diaphoretic but remains afebrile at this time. call yin placed within reach.
--- NOTE | 2023-03-18 10:40 | PC.NURSE ---
medication administered per provider order. RT bedside assessing pt at this time.
[2023-03-18 10:43] LABS: Influenza A PCR NEGATIVE (Negative); Influenza B PCR NEGATIVE (Negative); Resp Syncy Virus RNA Qual PCR NEGATIVE (Negative); SARS COV2 PCR INHOUSE POSITIVE (Negative)
--- NOTE | 2023-03-18 11:20 | PC.NURSE ---
abx administered per provider order.
--- NOTE | 2023-03-18 12:04 | PC.NURSE ---
pt remains hypotensive despite 2nd bag of IV fluid. provider notified/aware/bedside speaking w/ pt.
--- NOTE | 2023-03-18 12:52 | PM.IMHP ---
History of Present Illness Date of Service: 03/18/23 Attending physician on admission: Wilian Zelaya Chief Complaint: Hemoptysis Pt is a 82-year-old Tunisian-speaking male with a PMH significant for?COPD on 2L NC home O2, bronchiectases, nonischemic cardiomyopathy, paroxysmal AFib on Eliquis, HTN, HLD, [id number] diabetes type 2, GERD, BPH, hx nephrolithiasis, and lumbar degenerative disc disease who presents to the ED with?hemoptysis since last night. Denies hematemesis but has been coughing up blood in his phlegm. patient is not the most precise of historians and unable to offer a great deal of detail about his symptoms, but says he has been coughing more for a while , likely the past 4-6 weeks. Notes a significant increase in coughing the past few days. Has been feeling dizzy, but denies fever, chills, increased fatigue. Describes his breathing as so-so without further clarification. No nausea, vomiting, abdominal pain. Of note, pt was recently admitted to the hospital on 03/08/2023 and treated for COPD exacerbation. In the ED pt With mildly elevated temperature of 99.8 degrees, tachycardia to 99 tachypnea to 23, slightly soft BP of 102/56, satting as low as 88% on 3 L NC. Labs were significant for testing positive for COVID, leukocytosis 17.5, stable microcytic anemia of 11.1/36.9, MCV 78.8. labs otherwise unremarkable, at baseline. UA negative for UTI.CXR showed hyperinflated lungs with chronic interstitial lung disease and no acute consolidation or pleural effusion. EKG demonstrated Sinus tachycardia with RBBB and left anterior fascicular block, but no evidence of significant ST elevations or depressions. Pt was treated with DuoNebs, Solu-Medrol, and doxycycline. Pt will be admitted to the hospital for treatment and further evalauation of acute on chronic hypoxic respiratory failure in the setting COVID infection. Review of Systems Review of Systems: Hemoptysis Increased cough Dizziness Denies hematemesis, hematochezia, melena, and hematuria Denies fever, chills, nausea, vomiting, abdominal pain No increased fatigue Denies chest pain/ pressure, palpitations PMFSH Medical History Acute and chronic respiratory failure BPH loc w urin obs/LUTS Urinary retention History of COVID-19 Chronic anticoagulation History of pneumothorax Diabetes Supplemental oxygen dependent COPD (chronic obstructive pulmonary disease) Kidney stone on left side Paroxysmal atrial fibrillation Hearing loss NICM (nonischemic cardiomyopathy) JESSA (mycobacterium avium-intracellulare) Bronchiectasis Glaucoma Pure hypercholesterolemia GERD (gastroesophageal reflux disease) Congestive heart failure History of MAC infection Essential hypertension Family History Father No problems noted. Mother Medical history unknown Sister Diabetes Daughter In good health Son In good health Brother No problems noted. Surgical History History of transurethral resection of bladder tumor (TURBT) History of cataract surgery History of left inguinal hernia repair History of bronchoscopy History of colonoscopy History of lumbar surgery History of cystoscopy Social History Household Members: None Housing: Apartment Are you a primary daycare provider to a significant other at home: No Do you presently have visiting nurse or other home services: Yes ([employer]) Alcohol intake: former Comment: pt refused bed alarms Patient Tobacco Use Status: Former Tobacco user Quit Date: 2012 Tobacco use type: Cigarette Smoked in Last 30 Days: No e-Cigarette/Vaping Use: Never Used Second Hand Smoke Exposure: No Use of substances other than those prescribed or required for medical reasons: No Advance Directives: Yes Advance Directives on File: Yes Advance Directives Date on File: 02/03/22 Nutrition Risks: No Nutritional Risk service: No Current occupational status: retired Cognitive needs: No Hearing needs: Yes Vision needs: Yes Meds Allergies Allergy/AdvReac Type Severity Reaction Status Date / Time Penicillins [PENICILLINS] Allergy Intermediate PASSED Verified 03/18/23 09:18 OUT trazodone Allergy Intermediate tremors Verified 03/18/23 09:18 brimonidine [From Alphagan P] Allergy Unknown Verified 03/18/23 09:18 diphenhydramine Allergy Unknown Verified 03/18/23 09:18 [From Benadryl] Home Medications Medication Instructions Recorded Confirmed Last Taken Type albuterol sulfate 90 mcg/actuation 2 puff inhalation Q4H PRN wheezing 03/09/23 03/18/23 Unknown History aerosol inhaler (Ventolin HFA) apixaban 5 mg tablet (Eliquis) 5 mg PO BID 03/09/23 03/18/23 03/08/23 History finasteride 5 mg tablet 5 mg PO DAILY 03/09/23 03/18/23 03/08/23 History lovastatin 10 mg tablet 10 mg PO DAILY 03/09/23 03/18/23 03/08/23 History metformin 500 mg tablet,extended 500 mg PO DAILY 03/09/23 03/18/23 03/08/23 History release 24 hr omeprazole 40 mg capsule,delayed 40 mg PO DAILY 03/09/23 03/18/23 03/08/23 History release prednisone 5 mg tablet 5 mg PO DAILY 03/09/23 03/18/23 Unknown History sacubitril 24 mg-valsartan 26 mg 1 tab PO BID 03/09/23 03/18/23 03/08/23 History tablet (Entresto) tamsulosin 0.4 mg capsule 0.4 mg PO DAILY 03/09/23 03/18/23 03/07/23 History travoprost 0.004 % eye drops 1 drp ophthalmic-Right BEDTIME 03/09/23 03/18/23 03/07/23 History Physical Exam Vital Signs and Narrative: Vital Signs: Last Vital Signs Temp 98.9 F 03/18/23 12:06 Pulse 87 03/18/23 12:06 Resp 23 H 03/18/23 12:06 BP 107/59 L 03/18/23 12:06 Pulse Ox 97 03/18/23 12:06 O2 Del Method Nasal Cannula 03/18/23 12:06 O2 Flow Rate 4 03/18/23 12:06 Oxygen Flow Rate 3 03/18/23 09:19 BMI result Body Mass Index 21.3 Constitutional: Alert, in no acute distress. Mental Status: Oriented to person, place and time. Eyes: Pupils are equal, round, and reactive to light. Ear, Nose, and Throat: Oropharynx clear, mucous membranes moist. Ears and nose without deformities. Trachea midline. Respiratory: Mild diffuse coarse breath sounds bilaterally. Cardiovascular: S1, S2 regular. No murmurs, rubs, or gallops. Gastrointestinal: Abdomen soft, non-tender, non-distended. Normal bowel sounds. Neurologic: Cranial nerves II-XII are grossly intact bilaterally. No focal neurological deficits. Moves all extremities spontaneously. Skin: Warm, dry. Musculoskeletal: No cyanosis or clubbing. Extremities: No edema. Psychiatric: Normal mood and affect. Results Labs 03/18/23 09:35 03/18/23 09:35 Labs: Laboratory Results - last 24 hr 03/18/23 03/18/23 03/18/23 09:28 09:35 09:37 MCV 78.8 L MCH 23.7 L MCHC 30.1 L RDW 15.2 Plt Count 274 MPV 8.8 L Immature Gran % (Auto) 0.5 H Neut % (Auto) 89.5 H Lymph % (Auto) 1.9 L Johnson % (Auto) 3.7 Eos % (Auto) 4.2 H Baso % (Auto) 0.2 Lymph # (Auto) 0.3 L Johnson # (Auto) 0.7 Eos # (Auto) 0.7 H Baso # (Auto) 0.0 Abs Immat Gran (auto) 0.08 H Absolute Neuts (auto) 15.6 H Absolute Nucleated RBC 0.000 Nucleated RBC % (auto) 0.0 PT 24.1 H D INR 2.0 H APTT 32.2 VBG pH 7.47 H VBG pCO2 50 VBG pO2 36 VBG HCO3 37 H VBG O2 Saturation 61.0 VBG Base Excess 11.7 Anion Gap 12 Estim Creat Clear Calc 74.0 Estimated GFR > 60 Random Glucose 207 H Lactic Acid F/U @ 2Hr Calcium 8.8 Total Bilirubin 0.4 AST 12 ALT 19 Alkaline Phosphatase 61 Total Protein 6.8 Albumin 3.3 L Urine Color Urine Appearance Urine pH Ur Specific Rydal Urine Protein Urine Glucose (UA) Urine Ketones Urine Blood Urine Nitrite Ur Leukocyte Esterase Urine RBC Urine WBC Ur Squamous Epith Cells Urine Bacteria Hyaline Casts Influenza Type A (PCR) NEGATIVE Influenza Type B (PCR) NEGATIVE RSV RNA Qual (PCR) NEGATIVE SARS-CoV-2 RNA (RT-PCR) POSITIVE A 03/18/23 10:07 MCV MCH MCHC RDW Plt Count MPV Immature Gran % (Auto) Neut % (Auto) Lymph % (Auto) Johnson % (Auto) Eos % (Auto) Baso % (Auto) Lymph # (Auto) Johnson # (Auto) Eos # (Auto) Baso # (Auto) Abs Immat Gran (auto) Absolute Neuts (auto) Absolute Nucleated RBC Nucleated RBC % (auto) PT INR APTT VBG pH VBG pCO2 VBG pO2 VBG HCO3 VBG O2 Saturation VBG Base Excess Anion Gap Estim Creat Clear Calc Estimated GFR Random Glucose Lactic Acid F/U @ 2Hr 1.2 Calcium Total Bilirubin AST ALT Alkaline Phosphatase Total Protein Albumin Urine Color Yellow Urine Appearance Clear Urine pH 6.5 Ur Specific Rydal <= 1.005 Urine Protein Negative Urine Glucose (UA) Negative Urine Ketones Negative Urine Blood Trace H Urine Nitrite Negative Ur Leukocyte Esterase Negative Urine RBC 0-2 Urine WBC 0-5 Ur Squamous Epith Cells 0-2 Urine Bacteria None Seen Hyaline Casts 0-2 Influenza Type A (PCR) Influenza Type B (PCR) RSV RNA Qual (PCR) SARS-CoV-2 RNA (RT-PCR) Imaging Radiologist's Impressions: Impressions Chest X-Ray 03/18/23 10:26 IMPRESSION: 1. Hyperinflated lungs with chronic interstitial lung disease. No acute consolidation or pleural effusion seen. 2. There is tenting of right hemidiaphragm likely from scarring. Assessment and Plan (1) Acute and chronic respiratory failure: Qualifiers: Respiratory failure complication: hypoxia Qualified Code(s): J96.21 - Acute and chronic respiratory failure with hypoxia Status: Acute (2) Hemoptysis: Status: Acute (3) COVID-19: Status: Acute Plan Pt is a 82-year-old Tunisian-speaking male with a PMH significant for?COPD on 2L [place] home O2, bronchiectases, nonischemic cardiomyopathy, paroxysmal AFib on Eliquis, HTN, HLD, [id number] diabetes type 2, GERD, BPH, hx nephrolithiasis, and lumbar degenerative disc disease who presents to the ED with?hemoptysis since last night. Pt will be admitted to the hospital for treatment and further evalauation of acute on chronic hypoxic respiratory failure in the setting COVID infection. Acute on chronic hypoxic respiratory failure in the setting of COVID infection Satting as low as 88% on 3 L NC, currently requiring 4L NC to maintain O2 >92 Will treat with DuoNebs, dexamethasone, remdesivir Will empirically cover with azithromycin Will check d-dimer, crp Titrate supplemental O2 >92, wean as tolerated Hemoptysis In the setting of COVID infection H&H stable, at baseline No evidence of gross bleeding Viral sepsis Tachycardia, tacypnea, leukocytosis secondary to COVID and hypoxia, not sepsis No evidence of acute bacterial infection Will empirically cover with azithromycin to help prevent superimposed bacterial infection Elevated d-dimer D-Dimer 858 Was elevated at 482 in the past on 06/10/2022 with negative CTA Most likely secondary to COVID, pt on Eliquis Will get ultrasound of lower legs to r/o DVT COPD Not in acute exacerbation Continue home inhalers Paroxysmal AFib Currently in NSR Continue Eliquis HTN Pt noted to have soft BP, hold Bumex, carvedilol, Entresto, tamsulosin, finasteride, HLD Continue statin Nonischemic cardiomyopathy Will hold Bumex, Entresto for now d/t soft BP Resume as warranted Non-insulin dependent diabetes type 2 Hold metformin Sliding-scale insulin Diabetic diet GERD Continue PPI BPH Will hold finasteride, tamsulosin for now d/t soft BP Continue as warranted Full Code Attending:?Dr. Zelaya DVT Prophylaxis: On Eliquis Pt will require a hospitalization of at least two nights for treatment of acute on chronic hypoxic respiratory failure in the setting of COVID infection. Given patient's significant comorbidities (COPD, AFib, NICM) and recent hospitalization 1 week ago, patient required inpatient or with IV steroids, breathing treatments, antibiotics, and close monitoring of respiratory status. Quality Stroke Does the patient have a stroke diagnosis?: No VTE Prior VTE?: No VTE Risk Level:: Medical - moderate - high VTE Device Contraindication: Treatment Not Indicated VTE Drug Contraindication: N/A - Med Ordered
--- NOTE | 2023-03-18 15:07 | PHA.MEDREC ---
Pharmacy Consult ? Medication Reconciliation Pharmacy has completed the medication reconciliation. Used discharge papers and claim history to confirm medications. Patient verified that he finished antibiotic and prednisone burst and that there were no changes to his medications.
[2023-03-18 15:09] LABS: C Reactive Protein 17.11 mg/dL (< or = 0.50)
--- NOTE | 2023-03-18 15:21 | PC.NURSE ---
pt continues to rest comfortably in no apparent distress. sob/wob subsided at this time. respirations now even and unlabored. medication administered per provider order. call yin placed within reach.
--- NOTE | 2023-03-18 16:40 | PC.NURSE ---
new 20gIV placed in the left AC so medication could be administered per provider order. drug compatibility not well known between abx and remdesivir at this time.
--- NOTE | 2023-03-18 18:08 | PC.NURSE ---
pt's past 3 BP's have been slightly soft. BP checked in upper extremities bilaterally. admitting provider (Dr. Zelaya) notified/aware at this time. documented in vitals section. provider states she will keep an eye. this RN will notify pt's new nurse on med tele unit.
--- NOTE | 2023-03-18 18:24 | PC.NURSE ---
admission worksheet completed. transport notified at this time.
[2023-03-19] VITALS (11 sets, daily range): BP systolic 103–131; BP diastolic 52–68; PULSE 59–84; RESP 15–20; TEMP 36.3–37.4; O2SAT 97–99
[2023-03-19 07:19] LABS: Anion Gap 11 (12-20); Blood Urea Nitrogen 17 mg/dL (9-16); Calcium 8.8 mg/dL (8.4-10.2); Carbon Dioxide 32 mmol/L (22-29); Chloride 99 mmol/L (96-108); Creatinine Clr Calc Pharmacy 81.5; Estimated Glomerular Filt Rate > 60; Glucose Random 158 mg/dL (60-115); Potassium 3.5 mmol/L (3.3-5.1); Sodium 138 mmol/L (135-145)
--- NOTE | 2023-03-19 10:37 | MHC.CM.PN ---
IMM 03/19/23, CM met with pt alone with fingerprint clerk. Pt is hard of hearing. He lives alone, has [employer] services 2 hours a day, 7 days a week, he does not know from what agency. HCP is on file and confirmed, Leti Brunner. He has home O2, he does not know from which company, he has a walker and nebulizer at home. He has received services from [facility] in the past, he said that he has not been to [facility] in the past. He is able to arrange a ride home upon DC. CM will follow and assist with DC planning.
--- NOTE | 2023-03-19 11:44 | HO.PM.IMPN ---
Subjective Subjective Date of Service: 03/19/23 Interval History: Being followed for COVID 19 infection with hypoxia. Feeling better this morning coughing up brown tinged sputum, no fresh blood, denies fever, no chills, no headache or dizziness tolerating diet no nausea, no vomiting or diarrhea. Review of Systems All other system reviewed and negative. Physical Exam Vital Signs: Vital Signs: Last Vital Signs Temp 99.3 F 03/19/23 11:14 Pulse 84 03/19/23 11:36 Resp 18 03/19/23 11:36 BP 131/63 03/19/23 11:14 Pulse Ox 97 03/19/23 11:14 O2 Del Method Nasal Cannula 03/19/23 11:14 O2 Flow Rate 3 03/19/23 11:14 Oxygen Flow Rate 3 03/18/23 09:19 BMI result Body Mass Index 21.3 Const: Other: General awake aler t x3 in no acute d istress.? Anicteri c sclera Neck? sup ple no JVD. CVS? r egular rate rhythm , Respiratory lung s coarse breath s ound, no respirato ry distress,+ rhon chi. Gastrointesti nal abdomen soft, non tender, bowel sounds audible, no guarding , no rig idity. Extremities no edema. Neuro n onfocal Skin no ra sh Psych appropria te affect Objective Data Active Medications Acetaminophen (Acetaminophen 325 Mg Tablet) 650 mg PO Q6H PRN PRN Reason: Pain, Mild (Pain Scale 1-3) Albuterol Sulfate (Albuterol Sulfate 90 Mcg 8 Gm Inhaler) 2 puff INHALE Q4H PRN PRN Reason: wheezing Albuterol/Ipratropium (Albuterol/Iprat 2.5/0.5mg 3 Ml Ampul.Neb) 3 ml INHALE RQ4H WHILE AWAKE [facility] Last Admin: 03/19/23 11:36 Dose: 3 ml Documented By: SHARON Albuterol/Ipratropium (Albuterol/Iprat 2.5/0.5mg 3 Ml Ampul.Neb) 3 ml INHALE RQ4H WHILE AWAKE PRN PRN Reason: Shortness of Breath/Wheezing Apixaban (Apixaban 5 Mg Tablet) 5 mg PO BID [facility] Last Admin: 03/19/23 09:44 Dose: 5 mg Documented By: MILVIA Dexamethasone Sodium Phosphate (Dexamethasone Sod Phosphate 4 Mg/Ml Vial) 6 mg IVPUSH DAILY [facility] Last Admin: 03/19/23 09:44 Dose: 6 mg Documented By: MILVIA Dextrose (Dextrose 50 % 25 Gm/50 Ml Syringe) 25 gm IVPUSH Q15M PRN; Protocol PRN Reason: per Hypoglycemia Standing Ord. Docusate Sodium (Docusate Sodium 100 Mg Capsule) 100 mg PO BID [facility] Last Admin: 03/19/23 09:44 Dose: 100 mg Documented By: MILVIA Glucose (Glucose Gel 15 Gm Gel..Gram.) 15 gm PO Q15M PRN; Protocol PRN Reason: per Hypoglycemia Standing Ord. Guaifenesin/Dextromethorphan (Guaifenesin Dm 200/20/10 Ml 10 Ml Syrup) 10 ml PO Q6H PRN PRN Reason: Cough Azithromycin 500 mg/ Sodium (Chloride) 250 mls @ 125 mls/hr IV Q24H [facility] Last Infusion: 03/18/23 17:20 Dose: Infused Documented By: DONAL Remdesivir 100 mg/ Sodium (Chloride) 230 mls @ 115 mls/hr IV Q24H [facility] Stop: 03/22/23 17:59 Insulin Human Lispro (Insulin Lispro 100 Unit/Ml 3 Ml Vial) 0 unit SUBCUT QIDACHS [facility]; Protocol Last Admin: 03/19/23 09:37 Dose: Not Given Documented By: MILVIA Non-Admin Reason: doesnt need Melatonin (Melatonin 3 Mg Tablet) 6 mg PO BEDTIME PRN PRN Reason: Insomnia Omeprazole (Omeprazole 40 Mg Marlon.) 40 mg PO DAILY@0630 [facility] Last Admin: 03/19/23 09:51 Dose: 40 mg Documented By: MILVIA Ondansetron HCl (Ondansetron Hcl 4 Mg/2 Ml Vial) 4 mg IVPUSH Q8H PRN PRN Reason: Nausea and Vomiting Pravastatin Sodium (Pravastatin Sodium 10 Mg Tablet) 10 mg PO BEDTIME [facility] Sodium Chloride (0.9 % Sodium Chloride Flush 3 Ml Syringe) 3 ml IVFLUSH QSHIFT [facility] Last Admin: 03/19/23 09:44 Dose: 3 ml Documented By: MILVIA Labs 03/19/23 06:35 03/19/23 06:35 Labs: Laboratory Results - last 24 hr 03/18/23 03/18/23 03/19/23 09:35 19:58 06:35 MCV 78.6 L MCH 23.6 L MCHC 30.0 L RDW 14.8 Plt Count 275 MPV 9.4 Absolute Nucleated RBC 0.000 Nucleated RBC % (auto) 0.0 D-Dimer High Sensitivty 858 Anion Gap 11 L Estim Creat Clear Calc 81.5 Estimated GFR > 60 POC Glucose 190 H Random Glucose 158 H Calcium 8.8 C-Reactive Protein 17.11 H 03/19/23 03/19/23 06:59 10:53 MCV MCH MCHC RDW Plt Count MPV Absolute Nucleated RBC Nucleated RBC % (auto) D-Dimer High Sensitivty Anion Gap Estim Creat Clear Calc Estimated GFR POC Glucose 142 H 147 H Random Glucose Calcium C-Reactive Protein Assessment and Plan (1) COVID-19: Status: Acute (2) Hemoptysis: Status: Acute (3) Acute and chronic respiratory failure: Status: Acute Plan 82-year-old Occitan-speaking male with a PMH significant for?COPD on 2L [place] home O2, bronchiectases, nonischemic cardiomyopathy, paroxysmal AFib on Eliquis, HTN, HLD, [id number] diabetes type 2, GERD, BPH, hx nephrolithiasis, and lumbar degenerative disc disease who presents to the ED with?hemoptysis since last night. Pt will be admitted to the hospital for treatment and further evalauation of acute on chronic hypoxic respiratory failure in the setting COVID infection. Acute on chronic hypoxic respiratory failure in the setting of COVID infection Feeling better less shortness of breath, no hemoptysis Oxygenation improved 97 % on 3 L Continue DuoNebs, dexamethasone, remdesivir and azithromycin day 2, at schedule cough medication Elevated d-dimer, crp due to COVID Titrate supplemental O2 >92, wean as tolerated Hemoptysis In the setting of COVID infection, improving stable hematocrit, continue Eliquis,follow h/h Viral sepsis Sepsis resolved ,No evidence of acute bacterial infection Elevated d-dimer D-Dimer 858 Was elevated at 482 in the past on 06/10/2022 with negative CTA Most likely secondary to COVID, pt on Eliquis COPD Not in acute exacerbation,Continue home inhalers Paroxysmal AFib Currently in NSR, Continue Eliquis HTN soft BP on admission, blood pressure improved but stable continue to hold Bumex, carvedilol, Entresto, tamsulosin, finasteride, HLD Continue statin Nonischemic cardiomyopathy Will hold Bumex, Entresto d/t soft BP Resume as warranted Non-insulin dependent diabetes type 2 Hold metformin Sliding-scale insulin Diabetic diet GERD Continue PPI BPH Resume finasteride, tamsulosin Full Code DVT Prophylaxis: On Eliquis Pt will require continued inpatient hospitalization for treatment of acute on chronic hypoxic respiratory failure in the setting of COVID infection. Given patient's significant comorbidities (COPD, AFib, NICM) and recent hospitalization 1 week ago, patient required inpatient treatment with IV steroids, breathing treatments, antibiotics, and close monitoring of respiratory status. Quality Stroke Does the patient have a stroke diagnosis?: No VTE Prior VTE?: No VTE Risk Level:: Medical - moderate - high VTE Device Contraindication: Treatment Not Indicated VTE Drug Contraindication: N/A - Med Ordered
[2023-03-19 16:23] LABS: Glucose, Whole Blood 239 mg/dL (60-115)
[2023-03-19] MEDS: Insulin Lispro 100 UNIT/ML 3 ML VIAL SUBCUT (17:06)
[2023-03-19] MEDS: Remdesivir 100 MG in 0.9 % Sodium Chloride 230 ML 115 MG IV (17:07)
[2023-03-19] MEDS: Albuterol/Iprat 2.5/0.5MG 3 ML AMPUL.NEB INHALE (19:32)
[2023-03-19 20:01] LABS: Glucose, Whole Blood 135 mg/dL (60-115)
[2023-03-19] MEDS: Apixaban 5 MG TABLET PO (22:40)
[2023-03-19] MEDS: guaiFENesin DM 200/20/10 ML 10 ML SYRUP PO (22:40)
[2023-03-19] MEDS: Pravastatin Sodium 10 MG TABLET PO (22:40)
[2023-03-19] MEDS: Docusate Sodium 100 MG CAPSULE PO (22:40)
[2023-03-20] VITALS (10 sets, daily range): BP systolic 114–141; BP diastolic 56–65; PULSE 60–88; RESP 17–20; TEMP 35.8–36.8; O2SAT 92–100
[2023-03-20] MEDS: Melatonin 3 MG TABLET 6 MG PO (01:13)
[2023-03-20] MEDS: Omeprazole 40 MG CAPSULE.DR PO (05:40)
[2023-03-20 07:42] LABS: Hematocrit 29.3 % (42.0-52.0); Hemoglobin 8.9 g/dl (14.0-18.0); Mean Corpuscular HGB Conc 30.4 g/dl (31.0-36.0); Mean Corpuscular Hemoglobin 23.7 pg (27.0-33.0); Mean Corpuscular Volume 78.1 fL (80.0-98.0); Mean Platelet Volume 9.6 fL (9.4-12.4); Platelet Count 301 X10*3/uL (160-400); Red Blood Count 3.75 X10*6/uL (4.60-5.80); Red Cell Distribution Width 14.8 % (11.0-16.0); White Blood Count 16.1 X10*3/uL (4.8-10.8)
[2023-03-20 07:56] LABS: Anion Gap 8 (12-20); Blood Urea Nitrogen 17 mg/dL (9-16); Calcium 8.3 mg/dL (8.4-10.2); Carbon Dioxide 33 mmol/L (22-29); Chloride 101 mmol/L (96-108); Creatinine Clr Calc Pharmacy 80.3; Estimated Glomerular Filt Rate > 60; Glucose Random 100 mg/dL (60-115); Potassium 3.2 mmol/L (3.3-5.1); Sodium 139 mmol/L (135-145)
[2023-03-20 08:10] LABS: Glucose, Whole Blood 103 mg/dL (60-115)
[2023-03-20] MEDS: Albuterol/Iprat 2.5/0.5MG 3 ML AMPUL.NEB INHALE ×4 (08:17→19:33)
[2023-03-20] MEDS: Finasteride 5 MG TABLET PO (09:02)
[2023-03-20] MEDS: Apixaban 5 MG TABLET PO ×2 (09:02→19:59)
[2023-03-20] MEDS: dexAMETHasone sod phosphate 4 MG/ML VIAL 6 MG IVPUSH (09:02)
[2023-03-20] MEDS: Docusate Sodium 100 MG CAPSULE PO ×2 (09:02→19:59)
[2023-03-20] MEDS: guaiFENesin DM 200/20/10 ML 10 ML SYRUP PO ×3 (09:02→19:59)
--- NOTE | 2023-03-20 10:29 | P.PNIM_ITS ---
Subjective Subjective Date of Service: 03/20/23 Interval History: Feeling better this morning, did not sleep last night for no obvious reason, cough is improving, no further episodes of hemoptysis, requiring 3 L of oxygen finger oximetry 92% Review of Systems All other system reviewed and negative. Physical Exam 2 Vital Signs: Vital Signs: Last Vital Signs Temp 96.5 F L 03/20/23 08:00 Pulse 74 03/20/23 08:18 Resp 18 03/20/23 08:18 BP 124/60 03/20/23 08:00 Pulse Ox 99 03/20/23 08:00 O2 Del Method Nasal Cannula 03/20/23 08:00 O2 Flow Rate 3 03/20/23 08:00 Oxygen Flow Rate 3 03/18/23 09:19 BMI result Body Mass Index 21.3 Const: Other: General awake alert x3, in no acute distress.? Anicteric sclera Neck? supple no JVD. CVS? regular rate rhythm. Respiratory lungs coarse breath sound, no respiratory distress,+ rhonchi. Gastrointestinal abdomen soft, non tender, bowel sounds audible, no guarding , no rigidity. Extremities no edema. Neuro no focal deficit Skin no rash Psych appropriate affect Objective Data Active Medications Acetaminophen (Acetaminophen 325 Mg Tablet) 650 mg PO Q6H PRN PRN Reason: Pain, Mild (Pain Scale 1-3) Al Hydroxide/Mg Hydroxide (Magnesium Hydrox/Alum Hydrox 30 Ml Oral.Susp) 30 ml PO Q6H PRN PRN Reason: Dyspepsia Albuterol Sulfate (Albuterol Sulfate 90 Mcg 8 Gm Inhaler) 2 puff INHALE Q4H PRN PRN Reason: wheezing Albuterol/Ipratropium (Albuterol/Iprat 2.5/0.5mg 3 Ml Ampul.Neb) 3 ml INHALE RQ4H WHILE AWAKE [facility] Last Admin: 03/20/23 08:17 Dose: 3 ml Documented By: SHARON Albuterol/Ipratropium (Albuterol/Iprat 2.5/0.5mg 3 Ml Ampul.Neb) 3 ml INHALE RQ4H WHILE AWAKE PRN PRN Reason: Shortness of Breath/Wheezing Apixaban (Apixaban 5 Mg Tablet) 5 mg PO BID [facility] Last Admin: 03/20/23 09:02 Dose: 5 mg Documented By: MILVIA Dexamethasone Sodium Phosphate (Dexamethasone Sod Phosphate 4 Mg/Ml Vial) 6 mg IVPUSH DAILY [facility] Last Admin: 03/20/23 09:02 Dose: 6 mg Documented By: MILVIA Dextrose (Dextrose 50 % 25 Gm/50 Ml Syringe) 25 gm IVPUSH Q15M PRN; Protocol PRN Reason: per Hypoglycemia Standing Ord. Docusate Sodium (Docusate Sodium 100 Mg Capsule) 100 mg PO BID [facility] Last Admin: 03/20/23 09:02 Dose: 100 mg Documented By: MILVIA Finasteride (Finasteride 5 Mg Tablet) 5 mg PO DAILY [facility] Last Admin: 03/20/23 09:02 Dose: 5 mg Documented By: MILVIA Glucose (Glucose Gel 15 Gm Gel..Gram.) 15 gm PO Q15M PRN; Protocol PRN Reason: per Hypoglycemia Standing Ord. Guaifenesin/Dextromethorphan (Guaifenesin Dm 200/20/10 Ml 10 Ml Syrup) 10 ml PO TID [facility] Last Admin: 03/20/23 09:02 Dose: 10 ml Documented By: MILVIA Azithromycin 500 mg/ Sodium (Chloride) 250 mls @ 125 mls/hr IV Q24H [facility] Last Infusion: 03/19/23 17:54 Dose: Infused Documented By: ADONIS Remdesivir 100 mg/ Sodium (Chloride) 230 mls @ 115 mls/hr IV Q24H [facility] Stop: 03/22/23 17:59 Last Infusion: 03/19/23 19:13 Dose: Infused Documented By: ADONIS Insulin Human Lispro (Insulin Lispro 100 Unit/Ml 3 Ml Vial) 0 unit SUBCUT QIDACHS [facility]; Protocol Last Admin: 03/20/23 08:19 Dose: Not Given Documented By: MILVIA Non-Admin Reason: does not need Melatonin (Melatonin 3 Mg Tablet) 6 mg PO BEDTIME PRN PRN Reason: Insomnia Last Admin: 03/20/23 01:13 Dose: 6 mg Documented By: KEILA Omeprazole (Omeprazole 40 Mg Capsule.) 40 mg PO DAILY@0630 [facility] Last Admin: 03/20/23 05:40 Dose: 40 mg Documented By: KEILA Ondansetron HCl (Ondansetron Hcl 4 Mg/2 Ml Vial) 4 mg IVPUSH Q8H PRN PRN Reason: Nausea and Vomiting Pravastatin Sodium (Pravastatin Sodium 10 Mg Tablet) 10 mg PO BEDTIME [facility] Last Admin: 03/19/23 22:40 Dose: 10 mg Documented By: ADONIS Sodium Chloride (0.9 % Sodium Chloride Flush 3 Ml Syringe) 3 ml IVFLUSH QSHIFT [facility] Last Admin: 03/20/23 09:02 Dose: 3 ml Documented By: HEATHERAC Labs 03/20/23 07:03 03/20/23 07:21 Labs: Laboratory Results - last 24 hr 03/19/23 03/19/23 03/19/23 10:53 16:14 19:55 MCV MCH MCHC RDW Plt Count MPV Absolute Nucleated RBC Nucleated RBC % (auto) Anion Gap Estim Creat Clear Calc Estimated GFR POC Glucose 147 H 239 H 135 H Random Glucose Calcium 03/20/23 03/20/23 03/20/23 07:03 07:21 07:38 MCV 78.1 L MCH 23.7 L MCHC 30.4 L RDW 14.8 Plt Count 301 MPV 9.6 Absolute Nucleated RBC 0.000 Nucleated RBC % (auto) 0.0 Anion Gap 8 L Estim Creat Clear Calc 80.3 Estimated GFR > 60 POC Glucose 103 Random Glucose 100 Calcium 8.3 L Microbiology Microbiology Results: Microbiology 03/18/23 10:07 Blood Culture - Preliminary Blood - Venous No growth after 24 hours. 03/18/23 10:30 Blood Culture - Preliminary Blood - Venous No growth after 24 hours. Assessment and Plan (1) COVID-19: Status: Acute (2) Hemoptysis: Status: Acute (3) Acute and chronic respiratory failure: Status: Acute Plan 82-year-old Armenian-speaking male with a PMH significant for?COPD on 2L [place] home O2, bronchiectases, nonischemic cardiomyopathy, paroxysmal AFib on Eliquis, HTN, HLD, [id number] diabetes type 2, GERD, BPH, hx nephrolithiasis, and lumbar degenerative disc disease who presents to the ED with?hemoptysis since last night. Pt will be admitted to the hospital for treatment and further evalauation of acute on chronic hypoxic respiratory failure in the setting COVID infection. Acute on chronic hypoxic respiratory failure in the setting of COVID infection Feeling better less shortness of breath, less cough,no hemoptysis. Oxygenation improved 97 % on 3 L Continue DuoNebs, dexamethasone, remdesivir and azithromycin day 2, schedule cough medication Elevated d-dimer, crp due to COVID Titrate supplemental O2 >92, wean as tolerated Recommend out of bed to chair, DC bedrest Hemoptysis resolved renettaley due to COVID infection, hematocrit, drop but above transfusion threshold, follow H&H and continue Eliquis. Viral sepsis Sepsis resolved Elevated d-dimer Most likely secondary to COVID, on Eliquis COPD Not in acute exacerbation,Continue home inhalers Paroxysmal AFib Currently in NSR, Continue Eliquis HTN soft BP on admission, blood pressure improved but stable continue to hold Bumex, carvedilol, Entresto, tamsulosin, finasteride, HLD Continue statin Nonischemic cardiomyopathy Will hold Bumex, Entresto d/t soft BP Resume as warranted GERD Continue PPI BPH Resume finasteride, tamsulosin Hypokalemia will replete and follow labs. Full Code DVT Prophylaxis: On Eliquis Pt will require continued inpatient hospitalization for treatment of acute on chronic hypoxic respiratory failure in the setting of COVID infection. Given patient's significant comorbidities (COPD, AFib, NICM) and recent hospitalization 1 week ago, patient required inpatient treatment with IV steroids, breathing treatments, antibiotics, and close monitoring of respiratory status. Quality Stroke Does the patient have a stroke diagnosis?: No VTE Prior VTE?: No VTE Risk Level:: Medical - moderate - high VTE Device Contraindication: Treatment Not Indicated VTE Drug Contraindication: N/A - Med Ordered
--- NOTE | 2023-03-20 10:33 | P.CDIM_ITS ---
PROVIDER RESPONSE TEXT: To clarify, the appropriate diagnosis supported by the clinical indicators: Systolic: chronic QUERY TEXT: PHYSICIAN'S DOCUMENTATION REQUEST Date of Query: 03/20/2023 10:05 AM EST Patient Name: Yao Herman Admit Date: 03/18/2023 Dear Wilian Zelaya, A review of the medical record indicates additional documentation may be needed. Please review below and update the documentation accordingly. Clinical Indicators: H&P and ED - PMH: Congestive heart failure History of Echo performed Please provide further specificity regarding the most likely acuity/specifics of the noted Congestive heart failure: Thank you Systolic Please specify if Acute, Chronic, or Acute on chronic, or Unable to determine Diastolic Please specify if Acute, Chronic, or Acute on chronic, or Unable to determine Combined Systolic/Diastolic Please specify if Acute, Chronic, or Acute on chronic, or Unable to determine Other (explain) Clinically unable to determine (explain) Thank you, Libra Arriaga, CCS, CDIS Use of terms such as suspected, likely, concern for, or probable (associated with a specific diagnosi s that is being evaluated, monitored, or treated as if it exists) are acceptable and can be coded in the inpatient se tting, when documented at the time of discharge. Please use your independent medical judgment in providing your response. THIS QUERY IS PART OF THE PERMANENT MEDICAL RECORD
[2023-03-20 11:43] LABS: Glucose, Whole Blood 183 mg/dL (60-115)
[2023-03-20] MEDS: Potassium Chloride ER 20 MEQ TAB.ER.PRT PO (12:15)
[2023-03-20] MEDS: Insulin Lispro 100 UNIT/ML 3 ML VIAL SUBCUT ×2 (12:15→17:17)
[2023-03-20 16:27] LABS: Glucose, Whole Blood 173 mg/dL (60-115)
[2023-03-20] MEDS: Remdesivir 100 MG in 0.9 % Sodium Chloride 230 ML 115 MG IV (17:17)
[2023-03-20 19:54] LABS: Glucose, Whole Blood 109 mg/dL (60-115)
[2023-03-20] MEDS: Pravastatin Sodium 10 MG TABLET PO (19:59)
[2023-03-21] VITALS (10 sets, daily range): BP systolic 122–141; BP diastolic 59–69; PULSE 62–91; RESP 18–20; TEMP 36.3–36.9; O2SAT 90–100
[2023-03-21] MEDS: Omeprazole 40 MG CAPSULE.DR PO (05:42)
[2023-03-21 07:49] LABS: Hematocrit 30.4 % (42.0-52.0); Hemoglobin 9.2 g/dl (14.0-18.0); Mean Corpuscular HGB Conc 30.3 g/dl (31.0-36.0); Mean Corpuscular Hemoglobin 23.7 pg (27.0-33.0); Mean Corpuscular Volume 78.4 fL (80.0-98.0); Mean Platelet Volume 9.8 fL (9.4-12.4); Platelet Count 308 X10*3/uL (160-400); Red Blood Count 3.88 X10*6/uL (4.60-5.80); White Blood Count 9.8 X10*3/uL (4.8-10.8)
[2023-03-21 07:55] LABS: Glucose, Whole Blood 93 mg/dL (60-115)
[2023-03-21 08:00] LABS: Anion Gap 10 (12-20); Blood Urea Nitrogen 11 mg/dL (9-16); Calcium 8.1 mg/dL (8.4-10.2); Carbon Dioxide 32 mmol/L (22-29); Chloride 102 mmol/L (96-108); Creatinine Clr Calc Pharmacy 89.2; Estimated Glomerular Filt Rate > 60; Glucose Random 88 mg/dL (60-115); Potassium 3.8 mmol/L (3.3-5.1); Sodium 140 mmol/L (135-145)
[2023-03-21] MEDS: Albuterol/Iprat 2.5/0.5MG 3 ML AMPUL.NEB INHALE ×4 (08:30→19:07)
[2023-03-21] MEDS: Docusate Sodium 100 MG CAPSULE PO ×2 (08:33→20:20)
[2023-03-21] MEDS: guaiFENesin DM 200/20/10 ML 10 ML SYRUP PO ×3 (08:33→20:20)
[2023-03-21] MEDS: dexAMETHasone sod phosphate 4 MG/ML VIAL 6 MG IVPUSH (08:33)
[2023-03-21] MEDS: Finasteride 5 MG TABLET PO (08:33)
[2023-03-21] MEDS: Apixaban 5 MG TABLET PO ×2 (08:33→20:21)
[2023-03-21 11:39] LABS: Glucose, Whole Blood 141 mg/dL (60-115)
--- NOTE | 2023-03-21 13:47 | PM.DS ---
DS: Providers Provider Date of Service: 03/21/23 Date of admission: 03/18/23 14:21 Primary care physician: Olga Calzada MD DS: Diagnosis Discharge Diagnosis (1) COVID-19: Status: Acute (2) Hemoptysis: Status: Acute (3) Acute and chronic respiratory failure: Status: Acute DS: Summary Hospital Course Hospital Course: History of presenting illness: Date of Service: 03/18/23 Attending physician on admission: Wilian Zelaya Chief Complaint: Hemoptysis Pt is a 82-year-old Icelandic-speaking male with a PMH significant for?COPD on 2L NC home O2, bronchiectases, nonischemic cardiomyopathy, paroxysmal AFib on Eliquis, HTN, HLD, [id number] diabetes type 2, GERD, BPH, hx nephrolithiasis, and lumbar degenerative disc disease who presents to the ED with?hemoptysis since last night. Denies hematemesis but has been coughing up blood in his phlegm. patient is not the most precise of historians and unable to offer a great deal of detail about his symptoms, but says he has been coughing more for a while , likely the past 4-6 weeks. Notes a significant increase in coughing the past few days. Has been feeling dizzy, but denies fever, chills, increased fatigue. Describes his breathing as so-so without further clarification. No nausea, vomiting, abdominal pain. Of note, pt was recently admitted to the hospital on 03/08/2023 and treated for COPD exacerbation. In the ED pt With mildly elevated temperature of 99.8 degrees, tachycardia to 99 tachypnea to 23, slightly soft BP of 102/56, satting as low as 88% on 3 L NC. Labs were significant for testing positive for COVID, leukocytosis 17.5, stable microcytic anemia of 11.1/36.9, MCV 78.8. labs otherwise unremarkable, at baseline. UA negative for UTI.CXR showed hyperinflated lungs with chronic interstitial lung disease and no acute consolidation or pleural effusion. EKG demonstrated Sinus tachycardia with RBBB and left anterior fascicular block, but no evidence of significant ST elevations or depressions. Pt was treated with DuoNebs, Solu-Medrol, and doxycycline. Pt will be admitted to the hospital for treatment and further evalauation of acute on chronic hypoxic respiratory failure in the setting COVID infection. Hospital course: 82-year-old Icelandic-speaking male with a PMH significant for?COPD on 2L [place] home O2, bronchiectases, nonischemic cardiomyopathy, paroxysmal AFib on Eliquis, HTN, HLD, [id number] diabetes type 2, GERD, BPH, hx nephrolithiasis, and lumbar degenerative disc disease who presents to the ED with?hemoptysis since last night. Pt will be admitted to the hospital for treatment and further evalauation of acute on chronic hypoxic respiratory failure in the setting COVID infection. Acute on chronic hypoxic respiratory failure in the setting of sepsis due to COVID infection, patient admitted to telemetry unit treated with DuoNebs, dexamethasone, remdesivir and azithromycin ,cough medication Patient responded well to above treatment, oxygenation improved currently on 2 L of home oxygen finger oximetry stable patient ambulated without drop in oxygenation no lightheadedness or dizziness be therefore discharged home on 5 more days of Decadron recommend to continue all home inhalers, rest and take cough medication as needed, noted to have mild hypokalemia repleted and normalized. Hemoptysis resolved likley due to COVID infection, hematocrit, drop but stable did not require blood transfusion Eliquis was continued .. COPD did not have acute exacerbation,Continue home inhalers Paroxysmal AFib Currently in NSR, Continue Eliquis Hypertension noted to have soft blood pressures on admission therefore blood pressure medications were held upon discharge pressures improved therefore recommend to resume all home medication except dose of Bumex reduced to 0.5 mg daily recommend outpatient follow-up with primary care physician and Cardiology. HLD Continue statin Nonischemic cardiomyopathy continue home medication dose of Bumex reduced to 0.5 mg as above. GERD Continue PPI BPH continue finasteride, tamsulosin Time Attestation Discharge coordination time: Greater than 30 minutes Quality: Safe Use of Opioids Does Pt have an Active Cancer Diagnosis on the Problem List?: No Quality: Stroke Does the patient have a stroke diagnosis?: No Physical Exam Vital Signs: Vital Signs: Last Vital Signs Temp 97.8 F 03/21/23 11:29 Pulse 75 03/21/23 11:29 Resp 20 03/21/23 11:29 BP 134/60 03/21/23 11:29 Pulse Ox 90 L 03/21/23 11:29 O2 Del Method Room Air 03/21/23 11:29 O2 Flow Rate 3 03/21/23 07:35 Oxygen Flow Rate 3 03/18/23 09:19 BMI result Body Mass Index 21.3 Const: Other: General awake alert x3, in no acute distress.? Anicteric sclera Neck? supple no JVD. CVS? regular rate rhythm. Respiratory lungs coarse breath sound, no respiratory distress, no wheeze, no rhonchi. Gastrointestinal abdomen soft, non tender, bowel sounds audible, no guarding , no rigidity. Extremities no edema. Neuro no focal deficit Skin no rash Psych appropriate affect DS: Data Data Completed and Pending Completed studies during hospitalization [Text1]: Procedures Insertion of Infusion Device into Left Brachial Vein, Percutaneous Approach (05/25/22) Insertion of Infusion Device into Right Cephalic Vein, Percutaneous Approach (12/07/21) Insertion of Infusion Device into Superior Vena Cava, Percutaneous Approach (12/07/21) Ultrasonography of Superior Vena Cava, Guidance (12/07/21) Labs on day of discharge: Laboratory Results - last 24 hr 03/20/23 03/20/23 03/21/23 16:24 19:13 07:21 WBC 9.8 RBC 3.88 L Hgb 9.2 L Hct 30.4 L MCV 78.4 L MCH 23.7 L MCHC 30.3 L RDW 15.0 Plt Count 308 MPV 9.8 Absolute Nucleated RBC 0.000 Nucleated RBC % (auto) 0.0 Sodium 140 Potassium 3.8 Chloride 102 Carbon Dioxide 32 H Anion Gap 10 L BUN 11 Creatinine 0.63 Estim Creat Clear Calc 89.2 Estimated GFR > 60 POC Glucose 173 H 109 Random Glucose 88 Calcium 8.1 L 03/21/23 03/21/23 07:37 11:35 WBC RBC Hgb Hct MCV MCH MCHC RDW Plt Count MPV Absolute Nucleated RBC Nucleated RBC % (auto) Sodium Potassium Chloride Carbon Dioxide Anion Gap BUN Creatinine Estim Creat Clear Calc Estimated GFR POC Glucose 93 141 H Random Glucose Calcium Preliminary micro results at discharge 03/18/23 10:07 Blood Culture - Preliminary Blood - Venous No growth after 48 hours. 03/18/23 10:30 Blood Culture - Preliminary Blood - Venous No growth after 48 hours. Discharge Plan Discharge Anticipated Discharge Date/Time: 03/21/23 13:41 Patient Disposition: Home, Self-Care Discharge Diagnosis: Acute on chronic hypoxic respiratory failure Sepsis due to COVID-19 COPD Referrals: Olga North MD [Primary Care Provider] - 1 Week Discharge Medications: New bumetanide 0.5 mg tablet 0.5 mg PO DAILY Qty: 30 0RF dexamethasone 6 mg tablet 6 mg PO DAILY Qty: 5 0RF dextromethorphan-guaifenesin 10-100 mg/5 mL Syrup 10 ml PO TID Qty: 237 0RF Rx Instructions: Take for 3-5 days Continued (DME) walker Misc See Rx Instructions .Route Qty: 1 0RF Patient Comments: Pt states doesnot use Rx Instructions: with seat and wheels ipratropium-albuterol 0.5 mg-3 mg(2.5 mg base)/3 mL solution for nebulization 3 ml inhalation QID PRN (Reason: for dyspnea) Qty: 180 0RF (DME) blood-glucose meter [FreeStyle Lite Meter] Kit See Rx Instructions .Route Qty: 1 0RF Rx Instructions: test once daily carvedilol 6.25 mg tablet 6.25 mg PO BID 30 Days Qty: 60 3RF Protocol: Hold for SBP/HR < HOLD for SBP < : 90 HOLD for HR < : 60 Anoro Ellipta 62.5-25 mcg/actuation blister with device 1 ea PO DAILY Qty: 60 6RF docusate sodium 100 mg capsule 100 mg PO BID 90 Days Qty: 180 1RF tamsulosin 0.4 mg capsule 0.4 mg PO DAILY 30 Days Qty: 30 2RF Eliquis 5 mg tablet 5 mg PO BID Entresto 24-26 mg tablet 1 tab PO BID finasteride 5 mg tablet 5 mg PO DAILY lovastatin 10 mg tablet 10 mg PO DAILY metformin 500 mg tablet extended release 24 hr 500 mg PO DAILY omeprazole 40 mg capsule,delayed release(DR/EC) 40 mg PO DAILY travoprost 0.004 % drops 1 drp ophthalmic-Right BEDTIME albuterol sulfate [Ventolin HFA] 90 mcg/actuation HFA aerosol inhaler 2 puff INHALATION Q4H PRN (Reason: wheezing) (DME) FreeStyle Lite Strips Strip See Rx Instructions .Route Qty: 100 5RF Rx Instructions: test once daily (DME) lancets [FreeStyle Lancets] 28 gauge misc See Rx Instructions .Route Qty: 100 6RF Rx Instructions: Use 1 lancet once a day Held prednisone 5 mg tablet 5 mg PO DAILY Hold Instructions: Resume on 03/27/23. Discontinued bumetanide 1 mg tablet 1 mg PO DAILY 90 Days Qty: 90 1RF Discharge Orders: Discharge Order (Routine); Ordered 03/21/23 Ordered By: Wilian Zelaya Diet: Low salt diet Activity on Discharge: As tolerated Stand Alone Forms: Patient Portal Discharge page Care Plan Goals: Hypoxia resolved continue 2 L of home oxygen as before Take dexamethasone 6 mg 1 tablet daily for 5 days with food, and then start prednisone home dose Use DuoNeb updraft treatment for shortness of breath Continue all home medications from before rest take cough medication as needed Health Concerns: Nonischemic cardiomyopathy noted to have soft blood pressures therefore dose of Bumex reduced to 0.5 mg daily Plan of Treatment: Outpatient follow-up with primary care physician and Cardiology call for appointment Assessment: As above
--- NOTE | 2023-03-21 14:04 | MHC.CM.PN ---
Pt is medically cleared for D/C home, self-care. Pt has arranged his own transportation.
[2023-03-21 15:52] LABS: Glucose, Whole Blood 171 mg/dL (60-115)
[2023-03-21] MEDS: Insulin Lispro 100 UNIT/ML 3 ML VIAL SUBCUT (16:26)
[2023-03-21] MEDS: Remdesivir 100 MG in 0.9 % Sodium Chloride 230 ML 115 MG IV (16:26)
[2023-03-21 20:00] LABS: Glucose, Whole Blood 93 mg/dL (60-115)
[2023-03-21] MEDS: Pravastatin Sodium 10 MG TABLET PO (20:21)
[2023-03-22] VITALS: BP 160/67; PULSE 70; RESP 18; TEMP 36.4; O2SAT 95
[2023-03-22 03:28] VITALS: BP 146/63; PULSE 68; RESP 18; TEMP 36.4; O2SAT 97
[2023-03-22] MEDS: Omeprazole 40 MG CAPSULE.DR PO (06:40)
[2023-03-22] MEDS: Albuterol/Iprat 2.5/0.5MG 3 ML AMPUL.NEB INHALE (07:53)
[2023-03-22 07:54] VITALS: PULSE 68; RESP 18; O2SAT 97
[2023-03-22 08:00] VITALS: BP 122/66; PULSE 78; RESP 20; TEMP 36.2; O2SAT 96
[2023-03-22 08:12] LABS: Glucose, Whole Blood 86 mg/dL (60-115)
--- NOTE | 2023-03-22 08:37 | PM.DS ---
DS: Providers Provider Date of Service: 03/22/23 Date of admission: 03/18/23 14:21 Primary care physician: Olga Calzada MD DS: Diagnosis Discharge Diagnosis (1) COVID-19: Status: Acute (2) Hemoptysis: Status: Acute (3) Acute and chronic respiratory failure: Status: Acute DS: Summary Hospital Course Hospital Course: History of presenting illness: Date of Service: 03/18/23 Attending physician on admission: Wilian Zelaya Chief Complaint: Hemoptysis Pt is a 82-year-old Macedonian-speaking male with a PMH significant for?COPD on 2L [place] home O2, bronchiectases, nonischemic cardiomyopathy, paroxysmal AFib on Eliquis, HTN, HLD, [id number] diabetes type 2, GERD, BPH, hx nephrolithiasis, and lumbar degenerative disc disease who presents to the ED with?hemoptysis since last night. Denies hematemesis but has been coughing up blood in his phlegm. patient is not the most precise of historians and unable to offer a great deal of detail about his symptoms, but says he has been coughing more for a while , likely the past 4-6 weeks. Notes a significant increase in coughing the past few days. Has been feeling dizzy, but denies fever, chills, increased fatigue. Describes his breathing as so-so without further clarification. No nausea, vomiting, abdominal pain. Of note, pt was recently admitted to the hospital on 03/08/2023 and treated for COPD exacerbation. In the ED pt With mildly elevated temperature of 99.8 degrees, tachycardia to 99 tachypnea to 23, slightly soft BP of 102/56, satting as low as 88% on 3 L NC. Labs were significant for testing positive for COVID, leukocytosis 17.5, stable microcytic anemia of 11.1/36.9, MCV 78.8. labs otherwise unremarkable, at baseline. UA negative for UTI.CXR showed hyperinflated lungs with chronic interstitial lung disease and no acute consolidation or pleural effusion. EKG demonstrated Sinus tachycardia with RBBB and left anterior fascicular block, but no evidence of significant ST elevations or depressions. Pt was treated with DuoNebs, Solu-Medrol, and doxycycline. Pt will be admitted to the hospital for treatment and further evalauation of acute on chronic hypoxic respiratory failure in the setting COVID infection. Hospital course: 82-year-old Macedonian-speaking male with a PMH significant for?COPD on 2L NC home O2, bronchiectases, nonischemic cardiomyopathy, paroxysmal AFib on Eliquis, HTN, HLD, [id number] diabetes type 2, GERD, BPH, hx nephrolithiasis, and lumbar degenerative disc disease who presents to the ED with?hemoptysis since last night. Pt will be admitted to the hospital for treatment and further evalauation of acute on chronic hypoxic respiratory failure in the setting COVID infection. Acute on chronic hypoxic respiratory failure in the setting of sepsis due to COVID infection, patient admitted to telemetry unit treated with DuoNebs, dexamethasone, remdesivir and azithromycin ,cough medication Patient responded well to above treatment, oxygenation improved currently on 2 L of home oxygen finger oximetry stable patient ambulated without drop in oxygenation no lightheadedness or dizziness be therefore discharged home on 5 more days of Decadron recommend to continue all home inhalers, rest and take cough medication as needed, noted to have mild hypokalemia repleted and normalized. Hemoptysis resolved likley due to COVID infection, hematocrit, drop but stable did not require blood transfusion Eliquis was continued .. COPD did not have acute exacerbation,Continue home inhalers Paroxysmal AFib Currently in NSR, Continue Eliquis Hypertension noted to have soft blood pressures on admission therefore blood pressure medications were held upon discharge pressures improved therefore recommend to resume all home medication except dose of Bumex reduced to 0.5 mg daily recommend outpatient follow-up with primary care physician and Cardiology. HLD Continue statin Nonischemic cardiomyopathy continue home medication dose of Bumex reduced to 0.5 mg as above. GERD Continue PPI BPH continue finasteride, tamsulosin Time Attestation Discharge coordination time: Greater than 30 minutes Quality: Safe Use of Opioids Does Pt have an Active Cancer Diagnosis on the Problem List?: No Quality: Stroke Does the patient have a stroke diagnosis?: No Physical Exam Vital Signs: Vital Signs: Selected Entries 03/22/23 08:00 Temperature 97.2 F Pulse Rate 78 Respiratory Rate 20 Blood Pressure 122/66 Pulse Oximetry 96 Oxygen Delivery Me thod Nasal Cannula Oxygen Flow Rate 2 DS: Data Data Completed and Pending Completed studies during hospitalization [Text1]: Procedures Insertion of Infusion Device into Left Brachial Vein, Percutaneous Approach (05/25/22) Insertion of Infusion Device into Right Cephalic Vein, Percutaneous Approach (12/07/21) Insertion of Infusion Device into Superior Vena Cava, Percutaneous Approach (12/07/21) Ultrasonography of Superior Vena Cava, Guidance (12/07/21) Labs on day of discharge: Laboratory Results - last 24 hr 03/21/23 03/21/23 03/21/23 11:35 15:43 19:53 POC Glucose 141 H 171 H 93 03/22/23 08:08 POC Glucose 86 Preliminary micro results at discharge 03/18/23 10:07 Blood Culture - Preliminary Blood - Venous No growth after 48 hours. 03/18/23 10:30 Blood Culture - Preliminary Blood - Venous No growth after 48 hours. Discharge Plan Discharge Anticipated Discharge Date/Time: 03/22/23 08:36 Patient Disposition: Home, Self-Care Discharge Diagnosis: Acute on chronic hypoxic respiratory failure Sepsis due to COVID-19 COPD Referrals: Olga North MD [Primary Care Provider] - 1 Week Discharge Medications: New bumetanide 0.5 mg tablet 0.5 mg PO DAILY Qty: 30 0RF dexamethasone 6 mg tablet 6 mg PO DAILY Qty: 5 0RF dextromethorphan-guaifenesin 10-100 mg/5 mL Syrup 10 ml PO TID Qty: 237 0RF Rx Instructions: Take for 3-5 days Continued (DME) walker [facility] [place] See Rx Instructions .Route Qty: 1 0RF Patient Comments: Pt states doesnot use Rx Instructions: with seat and wheels ipratropium-albuterol 0.5 mg-3 mg(2.5 mg base)/3 mL solution for nebulization 3 ml inhalation QID PRN (Reason: for dyspnea) Qty: 180 0RF (DME) blood-glucose meter [FreeStyle Lite Meter] Kit See Rx Instructions .Route Qty: 1 0RF Rx Instructions: test once daily carvedilol 6.25 mg tablet 6.25 mg PO BID 30 Days Qty: 60 3RF Protocol: Hold for SBP/HR < HOLD for SBP < : 90 HOLD for HR < : 60 Anoro Ellipta 62.5-25 mcg/actuation blister with device 1 ea PO DAILY Qty: 60 6RF docusate sodium 100 mg capsule 100 mg PO BID 90 Days Qty: 180 1RF tamsulosin 0.4 mg capsule 0.4 mg PO DAILY 30 Days Qty: 30 2RF Eliquis 5 mg tablet 5 mg PO BID Entresto 24-26 mg tablet 1 tab PO BID finasteride 5 mg tablet 5 mg PO DAILY lovastatin 10 mg tablet 10 mg PO DAILY metformin 500 mg tablet extended release 24 hr 500 mg PO DAILY omeprazole 40 mg capsule,delayed release(DR/EC) 40 mg PO DAILY travoprost 0.004 % drops 1 drp ophthalmic-Right BEDTIME albuterol sulfate [Ventolin HFA] 90 mcg/actuation HFA aerosol inhaler 2 puff INHALATION Q4H PRN (Reason: wheezing) (DME) FreeStyle Lite Strips Strip See Rx Instructions .Route Qty: 100 5RF Rx Instructions: test once daily (DME) lancets [FreeStyle Lancets] 28 gauge misc See Rx Instructions .Route Qty: 100 6RF Rx Instructions: Use 1 lancet once a day Held prednisone 5 mg tablet 5 mg PO DAILY Hold Instructions: Resume on 03/27/23. Discontinued bumetanide 1 mg tablet 1 mg PO DAILY 90 Days Qty: 90 1RF Discharge Orders: Discharge Order (Routine); Ordered 03/22/23 Ordered By: Chico Bourgeois Diet: Low salt diet Activity on Discharge: As tolerated Stand Alone Forms: Patient Portal Discharge page Care Plan Goals: Hypoxia resolved continue 2 L of home oxygen as before Take dexamethasone 6 mg 1 tablet daily for 5 days with food, and then start prednisone home dose Use DuoNecalvin bazanraadrien treatment for shortness of breath Continue all home medications from before rest take cough medication as needed Health Concerns: Nonischemic cardiomyopathy noted to have soft blood pressures therefore dose of Bumex reduced to 0.5 mg daily Plan of Treatment: Outpatient follow-up with primary care physician and Cardiology call for appointment Assessment: As above
[2023-03-22] MEDS: dexAMETHasone sod phosphate 4 MG/ML VIAL 6 MG IVPUSH (10:05)
[2023-03-22] MEDS: guaiFENesin DM 200/20/10 ML 10 ML SYRUP PO (10:05)
[2023-03-22] MEDS: Docusate Sodium 100 MG CAPSULE PO (10:06)
[2023-03-22] MEDS: Apixaban 5 MG TABLET PO (10:06)
[2023-03-22] MEDS: Finasteride 5 MG TABLET PO (10:06)
== END 2023-03-22 10:45 | disposition home or self-care (01) | DRG 871 ==
LOC: HO.ED 12:36 → HO.EDOVER 14:41 → HO.IMC 17:49
PROVIDERS: Hospitalist; Admitting Provider Student in an Organized Health Care Education/Training Program; Emergency Provider Emergency Medicine; PCP Internal Medicine; Visit Provider Internal Medicine
DX: A41.89 Other specified sepsis (principal); J96.21 Acute and chronic respiratory failure with hypoxia; U07.1 COVID-19; R04.2 Hemoptysis; I42.8 Other cardiomyopathies; I50.22 Chronic systolic (congestive) heart failure; J44.9 Chronic obstructive pulmonary disease, unspecified; I11.0 Hypertensive heart disease with heart failure; N40.0 Benign prostatic hyperplasia without lower urinary tract symptoms; Z99.81 Dependence on supplemental oxygen; Z87.891 Personal history of nicotine dependence; Z79.01 Long term (current) use of anticoagulants; Z79.84 Long term (current) use of oral hypoglycemic drugs; Z79.52 Long term (current) use of systemic steroids; Z79.899 Other long term (current) drug therapy
CPT/HCPCS: 0241U; 36415; 71045; 80048; 80053; 81001; 82803; 82947; 83605; 84484; 85025; 85027; 85379; 85610; 85730; 86140; 87040; 93005; 93970; 94640; 99285; J0248; J0456; J1100; J2930

== ENCOUNTER → 2023-03-18 09:15 | Outpatient (BNV) | payer MEDICARE, MEDICAID, SELFPAY | PROVIDERS: Admitting Provider Student in an Organized Health Care Education/Training Program; Emergency Provider Emergency Medicine; PCP Internal Medicine; Visit Provider Internal Medicine Cardiovascular Disease | DX: I45.2 Bifascicular block (principal) | CPT/HCPCS: 93010 ==

== ENCOUNTER → 2023-03-18 14:21 | Outpatient (BNV) | payer MEDICARE, MEDICAID, SELFPAY | PROVIDERS: Admitting Provider Student in an Organized Health Care Education/Training Program; Emergency Provider Emergency Medicine; PCP Internal Medicine; Visit Provider Student in an Organized Health Care Education/Training Program | DX: U07.1 COVID-19 (principal); J96.21 Acute and chronic respiratory failure with hypoxia; R04.2 Hemoptysis | CPT/HCPCS: 99223; 99232; 99233; 99239 ==

== ENCOUNTER 2023-03-30 15:25 | Inpatient (IN) | payer MEDICARE, MEDICAID, SELFPAY ==
--- NOTE | ~2023-03-30 | XR_ITS ---
EXAMINATION: XR CHEST CLINICAL INFORMATION: Shortness of breath COMPARISON: Chest 03/18/2023. CT chest 06/28/2012 TECHNIQUE: 2 views of the chest were obtained. FINDINGS: The lungs are hyperinflated with reticular patchy opacity seen throughout both lungs likely chronic scarring. Some ill-defined nodular density seen in both upper lungs. Few cavitary nodules are seen in the right lower lobe. There is no acute consolidation seen compared to previous exam 03/18/2023. There are bullous changes in the right upper lobe. There is mild tenting of right hemidiaphragm. No pleural effusion or thickening seen. No gross bony abnormality. XR/XR chest 2V IMPRESSION: 1. Chronic changes in both lungs. No acute consolidation or pleural effusion seen. There is mild tenting of right hemidiaphragm. 2. There are several cavitary nodules in the right lower lobe. Few scattered ill-defined nodules in both upper lobes with bullous changes in right upper lobe. On previous CT there were nodules seen in right lung. Consider outpatient follow-up noncontrast CT chest.
--- NOTE | ~2023-03-30 | CT_ITS ---
EXAMINATION: CT CHEST WITHOUT CONTRAST CLINICAL INFORMATION: Shortness of breath. Abnormal chest x-ray. COMPARISON: Chest x-ray done earlier today. CT chest 02/28/2023. TECHNIQUE: Multidetector volumetric CT imaging of the chest was done. Axial MIP volume rendering provided. Sagittal and coronal reformatted images were obtained. This CT examination was performed using dose optimization techniques as appropriate, variously including the following: *Automated exposure control *Adjustment of mA and/or kV according to patient size (this includes techniques or standardized protocols for targeted exams where dose is matched to indication/reason for exam; i.e. extremities or head) *Use of iterative reconstruction technique DLP: 199 mGy-cm FINDINGS: FORGE HAND: Hyperinflated lungs. LUNGS: The lungs are diffusely emphysematous with multiple large right and moderate to small left upper lobe cyst slightly greater in number on the right side. There are numerous small cyst with bronchiectasis and mild bronchial wall thickening in both lower lobes, right middle lobe and lingula. There is dense debris/fluid seen in some of the basilar dilated bronchi. There is scattered small pulmonary nodules in the right lower lobe anterior segment, right upper lobe on axial image 26/4, 33/4. The largest nodule measures 7 mm on axial slice 33/4. It is stable to last exam. Ill-defined noted densities are seen in left upper lobe on axial slice 21/4. There is patchy parenchymal opacification in the left upper lobe and lingular segments new since the previous study suggesting a superimposed inflammatory process/pneumonia. MEDIASTINUM: Central trachea is dilated but patent. The bronchi are widely patent. Heart size is normal. No pericardial effusion seen. There is mild coronary artery calcifications present no abnormal size mediastinal or hilar lymph nodes seen. There is mediastinal shift to the right. CORONARY ARTERY CALCIFICATION: Mild coronary artery calcification is present. PLEURA: There is mild right posterior pleural thickening. Note pleural calcification or pneumothorax seen. AXILLA: No abnormal size axillary lymph nodes seen. The chest wall is unremarkable. UPPER ABDOMEN: Visualized liver, spleen appears unremarkable. There is dense sludge in the dependent segment of gallbladder. There is mild constipation. OSSEOUS STRUCTURES: No aggressive lytic or sclerotic process seen. CT/CT chest wo IV con IMPRESSION: Diffuse emphysema with bilateral upper and lower lobe bronchiectasis with the dependent bronchial secretions/debris in both lower lobes. There is new patchy opacity seen in the left upper lobe and lingular segments likely pneumonia/inflammatory process. Diffuse bilateral cyst are seen in both lungs right greater than left. Fleischner guidelines were followed.
[2023-03-30 15:38] VITALS: BP 98/52; PULSE 82; RESP 22; TEMP 37.4; O2SAT 98
[2023-03-30 15:49] VITALS: BP 98/52; PULSE 84; RESP 20; TEMP 37.4; O2SAT 98; BMI 31.0
--- NOTE | 2023-03-30 16:36 | ECG_ITS ---
Test Reason : SOB Blood Pressure : / mmHG Vent. Rate : 080 BPM Atrial Rate : 080 BPM P-R Int : 128 ms QRS Dur : 130 ms QT Int : 396 ms P-R-T Axes : 062 -36 012 degrees QTc Int : 456 ms Normal sinus rhythm Left axis deviation Right bundle branch block Abnormal ECG When compared with ECG of 18-MAR-2023 09:28, No significant change was found Referred By: Kirk Hudson Electronically Signed By:BEATRIS PERALTA
--- NOTE | 2023-03-30 16:40 | ED_ITS ---
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 Patient arrives via EMS after a visiting nurse found him to have ?an oxygen saturation of 83%. ? Patient reports that he had his oxygen on but was not sure if it was working properly He feels better on his baseline oxygen ER He had some chest pain that he associated to his coughing. Of note, the patient was admitted from 03/18/2023 to 03/22/2023 for acute hypoxic respiratory failure, he was found to have COVID-19 He reports that he never quite recovered 100% and has felt somewhat sick ever since his admission. He denies any fevers recently Denies any leg swelling He also complains of some mild upset stomach There was some concern of ?difficulty urinating by the visiting nurse. The patient does have a documented history of BPH with urinary obstruction Related Data Home Medications Medication Instructions Recorded Confirmed albuterol sulfate 90 mcg/actuation 2 puff inhalation Q4H PRN wheezing 03/09/23 03/18/23 aerosol inhaler (Ventolin HFA) apixaban 5 mg tablet (Eliquis) 5 mg PO BID 03/09/23 03/18/23 finasteride 5 mg tablet 5 mg PO DAILY 03/09/23 03/18/23 lovastatin 10 mg tablet 10 mg PO DAILY 03/09/23 03/18/23 metformin 500 mg tablet,extended 500 mg PO DAILY 03/09/23 03/18/23 release 24 hr omeprazole 40 mg capsule,delayed 40 mg PO DAILY 03/09/23 03/18/23 release prednisone 5 mg tablet 5 mg PO DAILY 03/09/23 03/18/23 sacubitril 24 mg-valsartan 26 mg 1 tab PO BID 03/09/23 03/18/23 tablet (Entresto) travoprost 0.004 % eye drops 1 drp ophthalmic-Right BEDTIME 03/09/23 03/18/23 Previous Rx's Medication Instructions Recorded walker #1 ea 03/20/22 ipratropium 0.5 mg-albuterol 3 mg 3 ml inhalation QID PRN for 08/31/22 (2.5 mg base)/3 mL nebulization dyspnea #180 mL soln blood-glucose meter (FreeStyle #1 ea 09/13/22 Lite Meter kit) blood sugar diagnostic (FreeStyle #100 ea 10/30/22 Lite Strips) lancets 28 gauge (FreeStyle #100 ea 10/30/22 Lancets) carvedilol 6.25 mg tablet 6.25 mg PO BID 30 days #60 tabs 11/15/22 Anoro Ellipta 62.5 mcg-25 1 ea PO DAILY #60 ea 02/12/23 mcg/actuation powder for inhalation (umeclidinium-vilanterol) docusate sodium 100 mg capsule 100 mg PO BID 90 days #180 caps 03/13/23 tamsulosin 0.4 mg capsule 0.4 mg PO DAILY 30 days #30 caps 03/19/23 bumetanide 0.5 mg tablet 0.5 mg PO DAILY #30 tabs 03/21/23 dexamethasone 6 mg tablet 6 mg PO DAILY #5 tabs 03/21/23 dextromethorphan-guaifenesin 10 10 ml PO TID #237 mL 03/21/23 mg-100 mg/5 mL oral syrup Allergies Allergy/AdvReac Type Severity Reaction Status Date / Time Penicillins [PENICILLINS] Allergy Intermediate PASSED Verified 03/18/23 09:18 OUT trazodone Allergy Intermediate tremors Verified 03/18/23 09:18 brimonidine [From Alphagan P] Allergy Unknown Verified 03/18/23 09:18 diphenhydramine Allergy Unknown Verified 03/18/23 09:18 [From Benadryl] Review of Systems 2 Constitutional: Constitutional: Denies body ache(s), Denies chills, Denies fever(s), Reports malaise and Reports weakness ENT: Denies sore throat Cardiovascular: Cardiovascular: Reports chest pain and Reports dyspnea Respiratory: Respiratory: Reports cough, Reports pain with cough and Reports dyspnea Gastrointestinal: Gastrointestinal: Reports abdominal pain, Denies nausea and Denies vomiting Musculoskeletal: Musculoskeletal: Denies back pain Integumentary/Breasts: Skin/Breast: Denies rash Neurologic: Reports weakness PMFSH Past Medical History Onset Date is defined in the Problem List Problems that require an onset date and time if occurred within 24 hrs of arrival to the ED Aortic Dissection and Rupture; Neurologic impairment; Cardiopulmonary Arrest; Endotracheal Intubation; Insertion or Replacement of Mechanical Circulatory Assist Device Medical History Acute and chronic respiratory failure BPH loc w urin obs/LUTS Urinary retention History of COVID-19 Chronic anticoagulation History of pneumothorax Diabetes Supplemental oxygen dependent COPD (chronic obstructive pulmonary disease) Kidney stone on left side Paroxysmal atrial fibrillation Hearing loss NICM (nonischemic cardiomyopathy) JESSA (mycobacterium avium-intracellulare) Bronchiectasis Glaucoma Pure hypercholesterolemia GERD (gastroesophageal reflux disease) Congestive heart failure History of MAC infection Essential hypertension Surgical History History of transurethral resection of bladder tumor (TURBT) History of cataract surgery History of left inguinal hernia repair History of bronchoscopy History of colonoscopy History of lumbar surgery History of cystoscopy Family History Family History Father No problems noted. Mother Medical history unknown Sister Diabetes Daughter In good health Son In good health Brother No problems noted. 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) Alcohol intake: former Comment: pt refusing bed alarm for moderate fall risk Patient Tobacco Use Status: Former Tobacco user Quit Date: 2012 Tobacco use type: Cigarette e-Cigarette/Vaping Use: Former Use Second Hand Smoke Exposure: No Use of substances other than those prescribed or required for medical reasons: No Advance Directives: Yes Advance Directives on File: Yes Advance Directives Date on File: 02/03/22 service: No Current occupational status: retired Cognitive needs: No Hearing needs: Yes Vision needs: Yes Physical Exam ED Vital Signs: Vital Signs - 24 hr 03/30/23 15:38 03/30/23 15:49 03/30/23 18:40 Temperature 99.3 F 99.3 F 99.6 F Pulse Rate 82 84 79 Respiratory Rate 22 H 20 18 Blood Pressure 98/52 L 98/52 L 105/48 L Pulse Oximetry 98 98 98 Oxygen Delivery Method Nasal Cannula Room Air Room Air Oxygen Flow Rate 3 03/30/23 20:53 Temperature 98.4 F Pulse Rate 78 Respiratory Rate 23 H Blood Pressure 119/50 L Pulse Oximetry 97 Oxygen Delivery Method Nasal Cannula Oxygen Flow Rate 3 BMI result Body Mass Index 31.0 Const General: healthy appearing, comfortable, no acute distress, alert and awake Orientation/consciousness: patient oriented x3 HENMT Head: Yes normocephalic and Yes atraumatic Eyes Eyelids: Yes eyelids normal Conjunctivae: conjunctivae normal Sclerae: sclerae normal Corneas: corneas normal Pupils: Equal, round and reactive pupils present EOM: EOMs intact bilaterally Neck Neck: Yes full ROM Resp Effort & Inspection: normal respiratory effort, able to speak in complete sentences and not labored GI Inspection: No distended Palpation (GI): Soft to palpation, not firm, nontender, no guarding and not rigid Neuro General: patient oriented x3 Cranial nerves: Yes Equal, round and reactive pupils present and Yes Bilaterally intact EOM present Cognition (Neuro): normal cognition Extrem Other: Moving all extremities well without any obvious deformities Course Reevaluation(s) Reevaluation #1: Patient's CT scan showed left-sided pneumonia, we will treat with azithromycin ceftriaxone for community-acquired pneumonia he did receive a 500 cc bolus of fluid, he is not septic. There is no wheezing on exam, therefore we are holding steroids as there is no obvious acute COPD exacerbation Time: 21:35 Medications Administered Discontinued Medications Generic Name Dose Route Start Last Admin Trade Name Freq PRN Reason Stop Dose Admin Sodium Chloride 500 mls @ 999 mls/hr 03/30/23 18:00 03/30/23 18:38 Ns IV 03/30/23 18:30 999 mls/hr .Q31M [facility] Administration Medical Decision Making Medical Decision Making MDM Narrative: 82-year-old primarily Ecuadorean-speaking male with history as documented above presents for evaluation of reported shortness of breath. The patient is a fairly poor historian. At the time of my evaluation his oxygen saturation is 98% on his baseline 2 L. he is afebrile. He appears quite comfortable. However given his recent admission and multiple comorbidities we will plan for broad workup including labs, blood cultures, chest x-ray, EKG. Further workup as indicated. Differential Diagnosis Differential Diagnoses: The differential diagnosis associated with the presentation includes COVID-19 Influenza RSV Postviral pneumonia CHF favored to be less likely as the patient has no leg swelling Admission/Observation Consideration of admission/observation: Escalation of care including admission/observation considered Consult Healthcare Provider Management of the patient was discussed with: Hospitalist (Dr. Moreno) Lab Data MDM Lab Attestation statement: I reviewed the patient's lab results. Mild leukocytosis to 14.5 K. microcytic anemia consistent with his baseline. No significant electrolyte abnormalities. Patient's BUN is elevated 24. Possibly related to dehydration 03/30/23 17:21 03/30/23 17:21 Labs: Lab Results 03/30/23 03/30/23 03/30/23 Range/Units 17:20 17:21 19:00 WBC 14.5 H (4.8-10.8) X10*3/uL RBC 3.99 L (4.60-5.80) X10*6/uL Hgb 9.3 L (14.0-18.0) g/dl Hct 30.5 L (42.0-52.0) % MCV 76.4 L (80.0-98.0) fL MCH 23.3 L (27.0-33.0) pg MCHC 30.5 L (31.0-36.0) g/dl RDW 15.7 (11.0-16.0) % Plt Count 265 (160-400) X10*3/uL MPV 8.9 L (9.4-12.4) fL Immature Gran % (Auto) 0.4 (0.0-0.4) % Neut % (Auto) 81.7 H (45-73) % Lymph % (Auto) 5.8 L (20-40) % [place] % (Auto) 7.8 (2-11) % Eos % (Auto) 4.1 H (0-4) % Baso % (Auto) 0.2 (0-2) % Lymph # (Auto) 0.8 L (1.2-4.9) X10*3/uL [place] # (Auto) 1.1 (0.1-1.2) X10*3/uL Eos # (Auto) 0.6 H (0.0-0.4) X10*3/uL Baso # (Auto) 0.0 (0.0-0.2) X10*3/uL Abs Immat Gran (auto) 0.06 H (0.00-0.03) X10*3/uL Absolute Neuts (auto) 11.9 H (2.0-8.3) x10*3/uL Absolute Nucleated RBC 0.000 (0.0-0.012) X10*3/uL Nucleated RBC % (auto) 0.0 (0.0-0.2) /100WBC PT 17.1 H D (11.1-13.3) SEC INR 1.4 H (0.9-1.1) APTT 34.2 (26.0-36.4) SEC Sodium 137 (135-145) mmol/L Potassium 3.5 (3.3-5.1) mmol/L Chloride 103 (96-108) mmol/L Carbon Dioxide 29 (22-29) mmol/L Anion Gap 9 L (12-20) BUN 24 H (9-16) mg/dL Creatinine 0.79 (0.5-1.4) mg/dL Estim Creat Clear Calc 62.0 Estimated GFR > 60 Random Glucose 93 (60-115) mg/dL Lactic Acid 0.8 (0.5-2.0) mmol/L Calcium 8.6 D (8.4-10.2) mg/dL Total Bilirubin 0.4 (0.0-1.0) mg/dL AST 9 (5-37) U/L ALT 12 (0-40) U/L Alkaline Phosphatase 58 (39-117) U/L Troponin I High Sens 3.3 (<3.5-35.0) ng/L B-Natriuretic Peptide 42 (<100) pg/mL Total Protein 6.2 L (6.5-8.0) g/dL Albumin 3.0 L (3.5-5.0) g/dL Lipase 18 (8-78) U/L Urine Color Yellow Urine Appearance Clear Urine pH 7.0 (5.0-9.0) Ur Specific [place] 1.010 (1.005-1.025) Urine Protein Negative (Neg-Trace) mg/dL Urine Glucose (UA) Negative (Negative) mg/dL Urine Ketones Negative (Negative) mg/dL Urine Blood Trace H (Negative) Urine Nitrite Negative (Negative) Ur Leukocyte Esterase Negative (Negative) Urine RBC 3-5 H (0-2) /HPF Urine WBC 0-5 (0-5) /HPF Ur Squamous Epith Cells 0-2 (0-2) /HPF Urine Bacteria None Seen (None Seen) Hyaline Casts 0-2 (0-2) /LPF Influenza Type A (PCR) NEGATIVE (Negative) Influenza Type B (PCR) NEGATIVE (Negative) RSV RNA Qual (PCR) NEGATIVE (Negative) SARS-CoV-2 RNA (RT-PCR) NEGATIVE (Negative) Independent Interpretation I performed an independent interpretation of an: Plain X-Ray (Chronic changes with no focal infiltrates) and CT Scan (Left-sided infiltrate) Radiology Impression Discussion of test interpretation with radiology: I have reviewed the radiologist's reading. (Diffuse emphysema with bilateral upper and lower lobe bronchiectasis. There is new patchy opacity in the left upper lobe and lingular segments likely pneumonia/inflammatory process) Discharge Plan Discharge Clinical Impression: Shortness of breath, Community acquired pneumonia Patient Disposition: Admitted As Inpatient
[2023-03-30 17:28] LABS: MANUAL DIFF FLAG NO
[2023-03-30 17:29] LABS: Basophils Percent Auto 0.2 % (0-2); Eosinophils Absolute Auto 0.6 X10*3/uL (0.0-0.4); Eosinophils Percent Auto 4.1 % (0-4); Hematocrit 30.5 % (42.0-52.0); Hemoglobin 9.3 g/dl (14.0-18.0); Imm Gran Abs Auto 0.06 X10*3/uL (0.00-0.03); Imm Gran Pct Auto 0.4 % (0.0-0.4); Lymphocytes Absolute Auto 0.8 X10*3/uL (1.2-4.9); Lymphocytes Percent Auto 5.8 % (20-40); Mean Corpuscular HGB Conc 30.5 g/dl (31.0-36.0); Mean Corpuscular Hemoglobin 23.3 pg (27.0-33.0); Mean Corpuscular Volume 76.4 fL (80.0-98.0); Mean Platelet Volume 8.9 fL (9.4-12.4); Monocytes Absolute Auto 1.1 X10*3/uL (0.1-1.2); Monocytes Percent Auto 7.8 % (2-11); Neutrophils Absolute Auto 11.9 x10*3/uL (2.0-8.3); Neutrophils Percent Auto 81.7 % (45-73); Platelet Count 265 X10*3/uL (160-400); Red Blood Count 3.99 X10*6/uL (4.60-5.80); Red Cell Distribution Width 15.7 % (11.0-16.0); White Blood Count 14.5 X10*3/uL (4.8-10.8)
[2023-03-30 17:34] LABS: INTERNATIONAL NORM RATIO 1.4 (0.9-1.1); Prothrombin Time 17.1 SEC (11.1-13.3)
[2023-03-30 17:37] LABS: Partial Thromboplastin Time 34.2 SEC (26.0-36.4)
[2023-03-30 17:45] LABS: Lactic Acid 0.8 mmol/L (0.5-2.0)
[2023-03-30 17:49] LABS: Alanine Aminotransferase 12 U/L (0-40); Alkaline Phosphatase 58 U/L (39-117); Anion Gap 9 (12-20); Aspartate Amino Transferase 9 U/L (5-37); Bilirubin Total 0.4 mg/dL (0.0-1.0); Blood Urea Nitrogen 24 mg/dL (9-16); Calcium 8.6 mg/dL (8.4-10.2); Carbon Dioxide 29 mmol/L (22-29); Chloride 103 mmol/L (96-108); Estimated Glomerular Filt Rate > 60; Glucose Random 93 mg/dL (60-115); Lipase 18 U/L (8-78); Potassium 3.5 mmol/L (3.3-5.1); Sodium 137 mmol/L (135-145); Total Protein 6.2 g/dL (6.5-8.0)
[2023-03-30 17:53] LABS: B Type Natriuretic Peptide 42 pg/mL (<100)
[2023-03-30 17:56] LABS: Troponin-I High Sensitivity 3.3 ng/L (<3.5-35.0)
[2023-03-30 18:12] LABS: Influenza A PCR NEGATIVE (Negative); Influenza B PCR NEGATIVE (Negative); Resp Syncy Virus RNA Qual PCR NEGATIVE (Negative); SARS COV2 PCR INHOUSE NEGATIVE (Negative)
[2023-03-30] MEDS: 0.9 % Sodium Chloride 500 ML 999 ML IV (18:38)
[2023-03-30 18:40] VITALS: BP 105/48; PULSE 79; RESP 18; TEMP 37.6; O2SAT 98
[2023-03-30 19:10] LABS: Appearance Urine Clear; Color Urine Yellow; Glucose Urine UA Negative (Negative); Nitrite Urine Negative (Negative); UMIC TRIGGER UACC YES
[2023-03-30 19:52] LABS: Urine Blood Trace (Negative); Urine Ketones Negative (Negative); Urine Protein Negative (Neg-Trace)
[2023-03-30 19:53] LABS: Bacteria Urine None Seen (None Seen); Hyaline Casts Urine 0-2 /LPF (0-2); Leukocyte Esterase Urine Negative (Negative); Squamous Epithelial Cell Urine 0-2 /HPF (0-2); WBC Urine 0-5 /HPF (0-5)
[2023-03-30 20:53] VITALS: BP 119/50; PULSE 78; RESP 23; TEMP 36.9; O2SAT 97
--- NOTE | 2023-03-30 21:58 | PM.IMHP ---
History of Present Illness Date of Service: 03/30/23 Chief Complaint: Dyspnea This is a 82-year-old male with pertinent history of chronic hypoxemic respiratory failure due to COPD on baseline 2 L supplemental oxygen, bronchiectasis, BPH, gastroesophageal reflux disease, [id number] diabetes mellitus, congestive heart failure with reduced ejection fraction, mixed hyperlipidemia, paroxysmal atrial fibrillation on Eliquis who presents to the emergency department for evaluation of dyspnea and cough. Patient states his symptoms started 3 days prior to presentation. He has been having productive cough with purulent sputum production. Also has been having associated wheezing. States he feels dyspneic on his home 1-2 L baseline oxygen. Admits chills, does not know if he has fevers. No chest discomfort, palpitations, orthopnea, PND, abdominal pain, changes in urinary or bowel habits. In the emergency department, patient was found to be hypoxemic in the 80s on his 2 L supplemental oxygen. Imaging with left-sided pneumonia. Review of Systems Constitutional: Constitutional: Reports fatigue, Reports lethargy, Reports malaise and Reports weakness Cardiovascular: Cardiovascular: Reports no additional cardiovascular complaints and Reports dyspnea on exertion Respiratory: Respiratory: Reports cough, Reports dyspnea on exertion and Reports wheezing Gastrointestinal: Gastrointestinal: Reports no additional gastrointestinal complaints Genitourinary: Genitourinary: Reports no additional male genitourinary complaints Neurologic: Reports weakness Endocrine: Endocrine: Reports fatigue Allergic/Immunologic: Allergic/Immunologic: Reports wheezing [facility] Medical History Bronchiectasis Acute and chronic respiratory failure BPH loc w urin obs/LUTS Urinary retention History of COVID-19 Chronic anticoagulation History of pneumothorax Diabetes Supplemental oxygen dependent COPD (chronic obstructive pulmonary disease) Kidney stone on left side Paroxysmal atrial fibrillation Hearing loss NICM (nonischemic cardiomyopathy) JESSA (mycobacterium avium-intracellulare) Bronchiectasis Glaucoma Pure hypercholesterolemia GERD (gastroesophageal reflux disease) Congestive heart failure History of MAC infection Essential hypertension Family History Father No problems noted. Mother Medical history unknown Sister Diabetes Daughter In good health Son In good health Brother No problems noted. 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) Alcohol intake: former Comment: pt refusing bed alarm for moderate fall risk Patient Tobacco Use Status: Former Tobacco user Quit Date: 2012 Tobacco use type: Cigarette e-Cigarette/Vaping Use: Former Use Second Hand Smoke Exposure: No Use of substances other than those prescribed or required for medical reasons: No Advance Directives: Yes Advance Directives on File: Yes Advance Directives Date on File: 02/03/22 service: No Current occupational status: retired Cognitive needs: No Hearing needs: Yes Vision needs: Yes Meds Allergies Allergy/AdvReac Type Severity Reaction Status Date / Time Penicillins [PENICILLINS] Allergy Intermediate PASSED Verified 03/18/23 09:18 OUT trazodone Allergy Intermediate tremors Verified 03/18/23 09:18 brimonidine [From Alphagan P] Allergy Unknown Verified 03/18/23 09:18 diphenhydramine Allergy Unknown Verified 03/18/23 09:18 [From Benadryl] Active Medications: Current Medications Azithromycin 500 mg/ Sodium (Chloride) 250 mls @ 125 mls/hr IV ONCE ONE Stop: 03/30/23 23:18 Home Medications Medication Instructions Recorded Confirmed Last Taken Type albuterol sulfate 90 mcg/actuation 2 puff inhalation Q4H PRN wheezing 03/09/23 03/18/23 Unknown History aerosol inhaler (Ventolin HFA) apixaban 5 mg tablet (Eliquis) 5 mg PO BID 03/09/23 03/18/23 03/08/23 History finasteride 5 mg tablet 5 mg PO DAILY 03/09/23 03/18/23 03/08/23 History lovastatin 10 mg tablet 10 mg PO DAILY 03/09/23 03/18/23 03/08/23 History metformin 500 mg tablet,extended 500 mg PO DAILY 03/09/23 03/18/23 03/08/23 History release 24 hr omeprazole 40 mg capsule,delayed 40 mg PO DAILY 03/09/23 03/18/23 03/08/23 History release sacubitril 24 mg-valsartan 26 mg 1 tab PO BID 03/09/23 03/18/23 03/08/23 History tablet (Entresto) travoprost 0.004 % eye drops 1 drp ophthalmic-Right BEDTIME 03/09/23 03/18/23 03/07/23 History Physical Exam Vital Signs and Narrative: Vital Signs: Last Vital Signs Temp 98.4 F 03/30/23 20:53 Pulse 78 03/30/23 20:53 Resp 23 H 03/30/23 20:53 BP 119/50 L 03/30/23 20:53 Pulse Ox 97 03/30/23 20:53 O2 Del Method Nasal Cannula 03/30/23 20:53 O2 Flow Rate 3 03/30/23 20:53 BMI result Body Mass Index 31.0 Middle-aged male lying in bed in mild distress on supplemental oxygen Neck supple, no JVD Regular rate and rhythm, S1-S2 heard Bilateral wheezing with left-sided crackles Abdomen soft nontender, no guarding, no rigidity Patient is awake, alert and oriented to self, place, time and person ; no focal motor deficit Psych: Lethargic No pedal edema Results Labs 03/30/23 17:21 03/30/23 17:21 Labs: Laboratory Results - last 24 hr 03/30/23 03/30/23 03/30/23 17:20 17:21 19:00 MCV 76.4 L MCH 23.3 L MCHC 30.5 L RDW 15.7 Plt Count 265 MPV 8.9 L Immature Gran % (Auto) 0.4 Neut % (Auto) 81.7 H Lymph % (Auto) 5.8 L [place] % (Auto) 7.8 Eos % (Auto) 4.1 H Baso % (Auto) 0.2 Lymph # (Auto) 0.8 L [place] # (Auto) 1.1 Eos # (Auto) 0.6 H Baso # (Auto) 0.0 Abs Immat Gran (auto) 0.06 H Absolute Neuts (auto) 11.9 H Absolute Nucleated RBC 0.000 Nucleated RBC % (auto) 0.0 PT 17.1 H D INR 1.4 H APTT 34.2 Anion Gap 9 L Estim Creat Clear Calc 62.0 Estimated GFR > 60 Random Glucose 93 Lactic Acid 0.8 Calcium 8.6 D Total Bilirubin 0.4 AST 9 ALT 12 Alkaline Phosphatase 58 B-Natriuretic Peptide 42 Total Protein 6.2 L Albumin 3.0 L Lipase 18 Urine Color Yellow Urine Appearance Clear Urine pH 7.0 Ur Specific [place] 1.010 Urine Protein Negative Urine Glucose (UA) Negative Urine Ketones Negative Urine Blood Trace H Urine Nitrite Negative Ur Leukocyte Esterase Negative Urine RBC 3-5 H Urine WBC 0-5 Ur Squamous Epith Cells 0-2 Urine Bacteria None Seen Hyaline Casts 0-2 Influenza Type A (PCR) NEGATIVE Influenza Type B (PCR) NEGATIVE RSV RNA Qual (PCR) NEGATIVE SARS-CoV-2 RNA (RT-PCR) NEGATIVE Imaging Radiologist's Impressions: Impressions Chest X-Ray 03/30/23 16:47 IMPRESSION: 1. Chronic changes in both lungs. No acute consolidation or pleural effusion seen. There is mild tenting of right hemidiaphragm. 2. There are several cavitary nodules in the right lower lobe. Few scattered ill-defined nodules in both upper lobes with bullous changes in right upper lobe. On previous CT there were nodules seen in right lung. Consider outpatient follow-up noncontrast CT chest. Chest CT 03/30/23 19:54 IMPRESSION: Diffuse emphysema with bilateral upper and lower lobe bronchiectasis with the dependent bronchial secretions/debris in both lower lobes. There is new patchy opacity seen in the left upper lobe and lingular segments likely pneumonia/inflammatory process. Diffuse bilateral cyst are seen in both lungs right greater than left. Fleischner guidelines were followed. Assessment and Plan (1) Community acquired pneumonia: Status: Acute Plan This is a 82-year-old male with pertinent history of chronic hypoxemic respiratory failure due to COPD on baseline 2 L supplemental oxygen, bronchiectasis, BPH, gastroesophageal reflux disease, jiv-orcugzw-syiwxvrud diabetes mellitus, congestive heart failure with reduced ejection fraction, mixed hyperlipidemia, paroxysmal atrial fibrillation on Eliquis who presents to the emergency department for evaluation of dyspnea and cough. #. Sepsis and acute on chronic hypoxemic respiratory failure due to left-sided pneumonia: Will admit patient and initiate empiric IV antibiotics. Also has background of bronchiectasis. Sputum culture pending. Resuscitated with IV crystalloids. Lactic acid and blood culture obtained. #. Acute exacerbation of COPD due to above: Scheduled and p.r.tim Gonzalez. Initiating systemic steroids. Continue home inhalers #. Paroxysmal atrial fibrillation on Eliquis: Rate controlled in the ER #. Congestive heart failure with reduced ejection fraction: Hold Entresto and diuretics in the setting of sepsis. Resume as appropriate #. Mixed hyperlipidemia: On statin #. Izw-xnvqbrl-zzjfnqzga diabetes mellitus: Initiating Accu-Cheks with sliding scale insulin #. BPH: On Flomax and finasteride #. Gastroesophageal reflux disease: On PPI #. Microcytic anemia: Obtaining iron studies Med rec pending DVT prophylaxis: Eliquis Full code Admit as inpatient and will require two night minimum hospital stay for supplemental oxygen, IV antibiotics (as above), which is not possible in a lesser acute setting. Quality Stroke Does the patient have a stroke diagnosis?: No VTE Prior VTE?: No VTE Risk Level:: Medical - moderate - high VTE Device Contraindication: Treatment Not Indicated VTE Drug Contraindication: N/A - Med Ordered
--- NOTE | 2023-03-30 22:07 | PHA.MEDREC ---
Pharmacy Consult ? Medication Reconciliation Pharmacy has completed the medication reconciliation.Confirmed Patient medication from claim record and discharge packet (03/22/2023) Melia Sandoval CPhT
[2023-03-30] MEDS: methylPREDNISolone Sod Succ 40 MG/ML VIAL IVPUSH (22:45)
[2023-03-30] MEDS: cefTRIAXone sodium 1 GM in 0.9 % Sodium Chloride 50 ML IV (22:45)
--- NOTE | 2023-03-30 23:08 | PC.NURSE ---
bp trending high before pain meds and now coming down. patient states he's feeling better.
[2023-03-30] MEDS: Azithromycin 500 MG in 0.9 % Sodium Chloride 250 ML 125 MG IV (23:16)
[2023-03-31 01:25] VITALS: BMI 31.2
[2023-03-31 02:09] VITALS: BP 98/55; PULSE 71; RESP 17; TEMP 36.5; O2SAT 98
[2023-03-31] MEDS: levoFLOXacin/D5W 750 MG/150 ML PIGGYBACK 100 MG IV (02:22)
[2023-03-31 03:15] VITALS: BP 117/58; PULSE 70; RESP 17; TEMP 36.4; O2SAT 98
[2023-03-31 06:06] LABS: Basophils Percent Auto 0.1 % (0-2); Eosinophils Percent Auto 0.3 % (0-4); Hematocrit 29.8 % (42.0-52.0); Imm Gran Abs Auto 0.03 X10*3/uL (0.00-0.03); Imm Gran Pct Auto 0.3 % (0.0-0.4); Lymphocytes Absolute Auto 0.2 X10*3/uL (1.2-4.9); Lymphocytes Percent Auto 2.4 % (20-40); MANUAL DIFF FLAG SCAN; Mean Corpuscular HGB Conc 30.2 g/dl (31.0-36.0); Mean Corpuscular Hemoglobin 23.1 pg (27.0-33.0); Mean Corpuscular Volume 76.6 fL (80.0-98.0); Mean Platelet Volume 9.4 fL (9.4-12.4); Monocytes Absolute Auto 0.1 X10*3/uL (0.1-1.2); Monocytes Percent Auto 1.3 % (2-11); Neutrophils Absolute Auto 9.6 x10*3/uL (2.0-8.3); Neutrophils Percent Auto 95.6 % (45-73); Platelet Count 268 X10*3/uL (160-400); Red Blood Count 3.89 X10*6/uL (4.60-5.80); Red Cell Distribution Width 15.5 % (11.0-16.0); SCAN SMEAR FLAG 1
[2023-03-31 06:22] LABS: Anion Gap 10 (12-20); Blood Urea Nitrogen 19 mg/dL (9-16); Calcium 8.2 mg/dL (8.4-10.2); Carbon Dioxide 25 mmol/L (22-29); Chloride 106 mmol/L (96-108); Creatinine Clr Calc Pharmacy 75.6; Estimated Glomerular Filt Rate > 60; Glucose Random 145 mg/dL (60-115); Iron 14 mcg/dL (45-160); Percent Iron Saturation 7 % (15-50); Potassium 4.2 mmol/L (3.3-5.1); Sodium 137 mmol/L (135-145); Total Iron Binding Capacity 214 mcg/dL (228-428); Unsaturated Iron Binding 200 ug/dL
[2023-03-31 06:42] LABS: SLIDE REVIEW VERIFIED
[2023-03-31 07:21] LABS: Glucose, Whole Blood 129 mg/dL (60-115)
[2023-03-31 07:38] VITALS: BP 118/56; PULSE 63; RESP 15; TEMP 37; O2SAT 100
[2023-03-31] MEDS: Albuterol/Iprat 2.5/0.5MG 3 ML AMPUL.NEB INHALE ×2 (07:46→11:43)
[2023-03-31 07:51] VITALS: PULSE 72; RESP 18; O2SAT 98
[2023-03-31] MEDS: Bumetanide 1 MG TABLET 0.5 MG PO (08:38)
[2023-03-31] MEDS: Docusate Sodium 100 MG CAPSULE PO (08:39)
[2023-03-31] MEDS: Tamsulosin HCL 0.4 MG CAPSULE PO (08:39)
[2023-03-31] MEDS: Pravastatin Sodium 10 MG TABLET PO (08:39)
[2023-03-31] MEDS: Sacubitril/Valsartan 24/26 1 TAB TABLET PO (08:39)
[2023-03-31] MEDS: Omeprazole 40 MG CAPSULE.DR PO (08:39)
[2023-03-31] MEDS: carvediloL 6.25 MG TABLET PO (08:39)
[2023-03-31] MEDS: metFORMIN HCl ER 500 MG TAB.ER.24H PO (08:39)
[2023-03-31] MEDS: Finasteride 5 MG TABLET PO (08:39)
[2023-03-31] MEDS: Apixaban 5 MG TABLET PO (08:39)
[2023-03-31] MEDS: 0.9 % Sodium Chloride Flush 3 ML SYRINGE IVFLUSH (08:42)
--- NOTE | 2023-03-31 09:33 | P.DS_ITS ---
DS: Providers Provider Date of Service: 03/31/23 Date of admission: 03/30/23 21:56 Primary care physician: Unknown Physician DS: Diagnosis Discharge Diagnosis (1) Community acquired pneumonia: Status: Acute DS: Summary Hospital Course Hospital Course: Chief Complaint: Dyspnea This is a 82-year-old male with pertinent history of chronic hypoxemic respiratory failure due to COPD on baseline 2 L supplemental oxygen, bronchiectasis, BPH, gastroesophageal reflux disease, uzk-dwhkfcz-ulxkkradh diabetes mellitus, congestive heart failure with reduced ejection fraction, mixed hyperlipidemia, paroxysmal atrial fibrillation on Eliquis who presents to the emergency department for evaluation of dyspnea and cough. Patient states his symptoms started 3 days prior to presentation. He has been having productive cough with purulent sputum production. Also has been having associated wheezing. States he feels dyspneic on his home 1-2 L baseline oxygen. Admits chills, does not know if he has fevers. No chest discomfort, palpitations, orthopnea, PND, abdominal pain, changes in urinary or bowel habits. In the emergency department, patient was found to be hypoxemic in the 80s on his 2 L supplemental oxygen. Imaging with left-sided pneumonia. Hospital course: The patient presented with shortness of breath, leukocytosis, and imaging findings consistent with pneumonia. He was admitted for the treatment of Community-Acquired Pneumonia (CAP) and COPD exacerbation. IV antibiotics (Ceftriaxone, azithro) were administered in the ED, and Levaquin was added upon admission. COPD exacerbation was addressed with IV steroids and bronchodilators through nebulization. The patient experienced rapid recovery, is no longer short of breath, with oxygen saturation near 100% on baseline oxygen, and resolution of leukocytosis. Lungs are clear. As a result, the patient will be discharged home to complete a course of antibiotics for pneumonia with Levaquin for an additional 4 days. Prednisone 40 mg will be continued for 3 more days, making a total of 5 days. The patient is advised to continue using usual inhalers and oxygen as before. He expresses comfort in going home today. Time Attestation Discharge coordination time: Greater than 30 minutes Quality: Safe Use of Opioids Does Pt have an Active Cancer Diagnosis on the Problem List?: No Quality: Stroke Does the patient have a stroke diagnosis?: No Physical Exam Vital Signs: Vital Signs: Last Vital Signs Temp 98.6 F 03/31/23 07:38 Pulse 72 03/31/23 07:51 Resp 18 03/31/23 07:51 BP 118/56 L 03/31/23 07:38 Pulse Ox 100 03/31/23 07:38 O2 Del Method Nasal Cannula 03/31/23 07:38 O2 Flow Rate 2 03/31/23 07:38 BMI result Body Mass Index 31.2 Const: Other: General: AO X 3, no acute distress Resp: CTA bilateral CVS: S1,S2,RRR GI: +BS, NT, no distention Skin: No rash Neuro: motor grossly intact Psych: appropriate affect DS: Data Data Completed and Pending Labs on day of discharge: Laboratory Results - last 24 hr 03/30/23 03/30/23 03/30/23 17:20 17:21 19:00 WBC 14.5 H RBC 3.99 L Hgb 9.3 L Hct 30.5 L MCV 76.4 L MCH 23.3 L MCHC 30.5 L RDW 15.7 Plt Count 265 MPV 8.9 L Immature Gran % (Auto) 0.4 Neut % (Auto) 81.7 H Lymph % (Auto) 5.8 L [place] % (Auto) 7.8 Eos % (Auto) 4.1 H Baso % (Auto) 0.2 Lymph # (Auto) 0.8 L [place] # (Auto) 1.1 Eos # (Auto) 0.6 H Baso # (Auto) 0.0 Abs Immat Gran (auto) 0.06 H Absolute Neuts (auto) 11.9 H Absolute Nucleated RBC 0.000 Nucleated RBC % (auto) 0.0 Smear Tech's Comments PT 17.1 H D INR 1.4 H APTT 34.2 Sodium 137 Potassium 3.5 Chloride 103 Carbon Dioxide 29 Anion Gap 9 L BUN 24 H Creatinine 0.79 Estim Creat Clear Calc 62.0 Estimated GFR > 60 POC Glucose Random Glucose 93 Lactic Acid 0.8 Calcium 8.6 D Iron TIBC % Saturation Unsat Iron Binding Total Bilirubin 0.4 AST 9 ALT 12 Alkaline Phosphatase 58 Troponin I High Sens 3.3 B-Natriuretic Peptide 42 Total Protein 6.2 L Albumin 3.0 L Lipase 18 Urine Color Yellow Urine Appearance Clear Urine pH 7.0 Ur Specific [place] 1.010 Urine Protein Negative Urine Glucose (UA) Negative Urine Ketones Negative Urine Blood Trace H Urine Nitrite Negative Ur Leukocyte Esterase Negative Urine RBC 3-5 H Urine WBC 0-5 Ur Squamous Epith Cells 0-2 Urine Bacteria None Seen Hyaline Casts 0-2 Influenza Type A (PCR) NEGATIVE Influenza Type B (PCR) NEGATIVE RSV RNA Qual (PCR) NEGATIVE SARS-CoV-2 RNA (RT-PCR) NEGATIVE 03/31/23 03/31/23 05:38 07:17 WBC 10.0 RBC 3.89 L Hgb 9.0 L Hct 29.8 L MCV 76.6 L MCH 23.1 L MCHC 30.2 L RDW 15.5 Plt Count 268 MPV 9.4 Immature Gran % (Auto) 0.3 Neut % (Auto) 95.6 H Lymph % (Auto) 2.4 L [place] % (Auto) 1.3 L Eos % (Auto) 0.3 Baso % (Auto) 0.1 Lymph # (Auto) 0.2 L [place] # (Auto) 0.1 Eos # (Auto) 0.0 Baso # (Auto) 0.0 Abs Immat Gran (auto) 0.03 Absolute Neuts (auto) 9.6 H Absolute Nucleated RBC 0.000 Nucleated RBC % (auto) 0.0 Smear Tech's Comments VERIFIED PT INR APTT Sodium 137 Potassium 4.2 Chloride 106 Carbon Dioxide 25 Anion Gap 10 L BUN 19 H Creatinine 0.65 Estim Creat Clear Calc 75.6 Estimated GFR > 60 POC Glucose 129 H Random Glucose 145 H Lactic Acid Calcium 8.2 L Iron 14 L TIBC 214 L % Saturation 7 L Unsat Iron Binding 200 Total Bilirubin AST ALT Alkaline Phosphatase Troponin I High Sens B-Natriuretic Peptide Total Protein Albumin Lipase Urine Color Urine Appearance Urine pH Ur Specific [place] Urine Protein Urine Glucose (UA) Urine Ketones Urine Blood Urine Nitrite Ur Leukocyte Esterase Urine RBC Urine WBC Ur Squamous Epith Cells Urine Bacteria Hyaline Casts Influenza Type A (PCR) Influenza Type B (PCR) RSV RNA Qual (PCR) SARS-CoV-2 RNA (RT-PCR) Discharge Plan Discharge Anticipated Discharge Date/Time: 03/31/23 09:36 Patient Disposition: Home, Self-Care Discharge Diagnosis: Sepsis, pneumonia Referrals: Physician,Unknown J [Primary Care Provider] - 1 Week Discharge Medications: Continued (DME) walker Misc See Rx Instructions .Route Qty: 1 0RF Patient Comments: Pt states doesnot use Rx Instructions: with seat and wheels ipratropium-albuterol 0.5 mg-3 mg(2.5 mg base)/3 mL solution for nebulization 3 ml inhalation QID PRN (Reason: for dyspnea) Qty: 180 0RF (DME) blood-glucose meter [FreeStyle Lite Meter] Kit See Rx Instructions .Route Qty: 1 0RF Rx Instructions: test once daily carvedilol 6.25 mg tablet 6.25 mg PO BID 30 Days Qty: 60 3RF Protocol: Hold for SBP/HR < HOLD for SBP < : 90 HOLD for HR < : 60 Anoro Ellipta 62.5-25 mcg/actuation blister with device 1 ea PO DAILY Qty: 60 6RF docusate sodium 100 mg capsule 100 mg PO BID 90 Days Qty: 180 1RF tamsulosin 0.4 mg capsule 0.4 mg PO DAILY 30 Days Qty: 30 2RF bumetanide 0.5 mg tablet 0.5 mg PO DAILY Qty: 30 0RF Eliquis 5 mg tablet 5 mg PO BID Entresto 24-26 mg tablet 1 tab PO BID finasteride 5 mg tablet 5 mg PO DAILY lovastatin 10 mg tablet 10 mg PO DAILY metformin 500 mg tablet extended release 24 hr 500 mg PO DAILY omeprazole 40 mg capsule,delayed release(DR/EC) 40 mg PO DAILY travoprost 0.004 % drops 1 drp ophthalmic-Right BEDTIME albuterol sulfate [Ventolin HFA] 90 mcg/actuation HFA aerosol inhaler 2 puff INHALATION Q4H PRN (Reason: wheezing) (DME) FreeStyle Lite Strips Strip See Rx Instructions .Route Qty: 100 5RF Rx Instructions: test once daily (DME) lancets [FreeStyle Lancets] 28 gauge misc See Rx Instructions .Route Qty: 100 6RF Rx Instructions: Use 1 lancet once a day Discharge Orders: Discharge Order (Routine); Ordered 03/31/23 Ordered By: Chico Bourgeois Diet: Diabetic diet Activity on Discharge: As tolerated Stand Alone Forms: Patient Portal Discharge page Care Plan Goals: Full recovery from sepsis, pneumonia Health Concerns: pneumonia, copd, ssepsis Plan of Treatment: take levaquin as directed for pneumonia, and follow up with your Doctor in a week, call for appointment Assessment: see above
[2023-03-31] MEDS: predniSONE 20 MG TABLET 40 MG PO (10:19)
[2023-03-31] MEDS: Magnesium Hydrox/Alum Hydrox 30 ML ORAL.SUSP PO (10:19)
--- NOTE | 2023-03-31 10:30 | MHC.CM.PN ---
CM met with patient at bedside, clutch mechanic assisting. IMM delivered. Patient is from home alone, has [employer] services 2hrs daily for ADL's and home making. Friend/HCP Leti Brunner is [employer]. HCP on file and verified. 2L home O2 via [employer]. Ambulates with a walker. PCP: Olga Avelar MD DP: Patient is medically cleared for dc home, resume [employer] services. Patient is O2 dependent and requires BLS transportation. Booked w/ [facility] for 11:30am. Left message for HCP Leti to notify of dc per patient request. RN aware.
[2023-03-31 11:43] VITALS: PULSE 76; RESP 18; O2SAT 96
== END 2023-03-31 12:39 | disposition home or self-care (01) | DRG 871 ==
LOC: HO.ED 21:37 → HO.EDOVER 22:12 → HO.S3 23:32
PROVIDERS: Physician Assistant; Admitting Provider Student in an Organized Health Care Education/Training Program; Emergency Provider Emergency Medicine Emergency Medical Services; PCP Internal Medicine; Visit Provider Internal Medicine
DX: A41.9 Sepsis, unspecified organism (principal); J18.9 Pneumonia, unspecified organism; I42.8 Other cardiomyopathies; I50.22 Chronic systolic (congestive) heart failure; J47.0 Bronchiectasis with acute lower respiratory infection; I48.0 Paroxysmal atrial fibrillation; N40.0 Benign prostatic hyperplasia without lower urinary tract symptoms; E11.9 Type 2 diabetes mellitus without complications; K21.9 Gastro-esophageal reflux disease without esophagitis; D50.9 Iron deficiency anemia, unspecified; E78.2 Mixed hyperlipidemia; Z20.822 Contact with and (suspected) exposure to COVID-19; Z99.81 Dependence on supplemental oxygen; Z87.891 Personal history of nicotine dependence; Z79.01 Long term (current) use of anticoagulants; Z79.84 Long term (current) use of oral hypoglycemic drugs; Z79.899 Other long term (current) drug therapy
CPT/HCPCS: 0241U; 36415; 71046; 71250; 80048; 80053; 81001; 82947; 83540; 83605; 83690; 83880; 84484; 85025; 85610; 85730; 87040; 93005; 99285; J0456; J0696; J1956; J2920

== ENCOUNTER → 2023-03-30 15:57 | Outpatient (BNV) | payer MEDICARE, MEDICAID, SELFPAY | PROVIDERS: Emergency Provider Emergency Medicine Emergency Medical Services; Visit Provider Student in an Organized Health Care Education/Training Program | DX: J18.9 Pneumonia, unspecified organism (principal); J96.21 Acute and chronic respiratory failure with hypoxia; I48.0 Paroxysmal atrial fibrillation | CPT/HCPCS: 99222; 99239 ==

== ENCOUNTER → 2023-03-30 16:36 | Outpatient (BNV) | payer MEDICARE, MEDICAID, SELFPAY | PROVIDERS: Admitting Provider Student in an Organized Health Care Education/Training Program; Emergency Provider Emergency Medicine Emergency Medical Services; Visit Provider Internal Medicine | DX: I44.4 Left anterior fascicular block (principal); I45.10 Unspecified right bundle-branch block | CPT/HCPCS: 93010 ==

== ENCOUNTER 2023-04-03 12:15 | Outpatient (AMB) | payer MEDICARE, MEDICAID, SELFPAY ==
[2023-04-03 12:30] VITALS: BP 120/62; PULSE 84; O2SAT 92; BMI 28.9
--- NOTE | 2023-04-03 12:30 | A.OFFPC_ITS ---
Vital Signs 04/03/23 12:30 Height 5 ft Weight 148 lb BMI 28.9 BP 120/62 Blood Pressure Location Lt brachial Position Sitting Pulse 84 Pulse Source Pulse Oximeter Pulse Oximetry (%) 92 Oxygen Delivery Method Room Air Intake Visit Re[place] [facility] [place] Intake Note: Patient here for [facility] [place] follow up covid, clearance for surgery Quality Rn Required: No Accompanied by: Self / Same As Patient Allergies Penicillins [PENICILLINS] Allergy (Intermediate, Verified 04/03/23 12:44) PASSED OUT trazodone Allergy (Intermediate, Verified 04/03/23 12:44) tremors brimonidine [From Alphagan P] Allergy (Verified 04/03/23 12:44) Unknown diphenhydramine [From Benadryl] Allergy (Verified 04/03/23 12:44) Unknown Medication List - Last Reconciled 04/03/23 by Olga Calzada MD albuterol sulfate 90 mcg/actuation (Ventolin HFA) 2 puffs inhalation Q4H PRN Anoro Ellipta 62.5-25 mcg/actuation (umeclidinium-vilanterol) 1 ea PO DAILY NS apixaban (Eliquis) 5 mg PO BID blood sugar diagnostic (FreeStyle Lite Strips) test once daily blood-glucose meter (FreeStyle Lite Meter kit) test once daily bumetanide 0.5 mg PO DAILY carvedilol 6.25 mg See Protocol PO BID 30 days docusate sodium 100 mg PO BID 90 days finasteride 5 mg PO DAILY ipratropium-albuterol 0.5 mg-3 mg(2.5 mg base)/3 mL 3 mL inhalation QID PRN lancets (FreeStyle Lancets) Use 1 lancet once a day levofloxacin 750 mg PO DAILY 4 days lovastatin 10 mg PO DAILY metformin ER 500 mg PO DAILY omeprazole 40 mg PO DAILY prednisone 40 mg (2 x 20 mg) PO DAILY sacubitril-valsartan 24-26 mg (Entresto) 1 tab PO BID tamsulosin 0.4 mg PO DAILY 30 days travoprost 0.004% 1 drp ophthalmic-Right BEDTIME walker with seat and wheels Tobacco use date assessed: 04/03/23 Fall risk assessment: No Falls in past year Last assessed Fall Risk: 04/03/23 Dental Screening Dental Screen Date: 04/03/23 Did you have a dental visit in the last 12 months?: No Did you have a dental problem in the last 6 months where you did not have access to dental care?: No Was dental information given to patient?: Patient has dentist HPI HPI Comments History of Present Illness Details This is an 82-year-old male with congestive heart failure, diabetes mellitus type 2, COPD on supplemental oxygen of 2 L occasionally and atrial fibrillation on Eliquis that comes today as a hospital discharge follow-up with discharge date of 03/31/2023 due to community-acquired pneumonia. CT of the [address] was done showing a left density most likely due to pneumonia that was new. I will repeat chest x-ray. He went to the hospital 03/30/2023 due to shortness of breath secondary to pneumonia. IV antibiotics were given. Levaquin was added upon admission and he still has 1 more day. He also received IV steroids and bronchodilators. Feels markedly improved. Also has 4-5 Mets of ADLs and has cataract surgery scheduled for 04/23/2023. EKG and labs show no significant abnormality. Has 1 risk factor by RCRI with 0.9% cardiac risk of complications. Patient medically clear for surgery. A1c within goal. Has not increased 5 lb in a week and follows with cardiology his congestive heart failure. COPD has been somewhat stable and follows with pulmonology. On chronic anticoagulation for atrial fibrillation and the goal is heart rate control and this is also follow by cardiology. [facility] Medical History (Updated 04/03/23 @ 12:57 by Olga Calzada MD) Congestive heart failure Bronchiectasis Acute and chronic respiratory failure BPH loc w urin obs/LUTS Urinary retention History of COVID-19 Chronic anticoagulation History of pneumothorax Diabetes Supplemental oxygen dependent COPD (chronic obstructive pulmonary disease) Kidney stone on left side Paroxysmal atrial fibrillation Hearing loss NICM (nonischemic cardiomyopathy) JESSA (mycobacterium avium-intracellulare) Bronchiectasis Glaucoma Pure hypercholesterolemia GERD (gastroesophageal reflux disease) History of MAC infection Essential hypertension Surgical History History of transurethral resection of bladder tumor (TURBT) History of cataract surgery History of left inguinal hernia repair History of bronchoscopy History of colonoscopy History of lumbar surgery History of cystoscopy Family History Father No problems noted. Mother Medical history unknown Sister Diabetes Daughter In good health Son In good health Brother No problems noted. Social History Household Members: None Housing: Apartment Are you a primary critical care technician to a significant other at home: No Alcohol intake: former Comment: pt refusing bed alarm for moderate fall risk Patient Tobacco Use Status: Former Tobacco user Quit Date: 10 years ago Tobacco use type: Cigarette e-Cigarette/Vaping Use: Former Use Second Hand Smoke Exposure: No Advance Directives Date on File: 02/03/22 service: No Current occupational status: retired Cognitive needs: No Hearing needs: Yes Vision needs: Yes Questionnaire PHQ-9 Over the last 2 weeks, how often have you been bothered by any of the following problems? 1. Little interest or pleasure in doing things: not at all 2. Feeling down, depressed, or hopeless: not at all 3. Trouble falling or staying asleep, or sleeping too much: not at all 4. Feeling tired or having little energy: not at all 5. Poor appetite or overeating: not at all 6. Feeling bad about yourself - or that you are a failure or have let yourself or your family down: not at all 7. Trouble concentrating on things, such as reading the newspaper or watching television: not at all 8. Moving or speaking so slowly that other people could have noticed. Or the opposite - being so fidgety or restless that you have been moving around a lot more than usual: not at all 9. Thoughts that you would be better off or of hurting yourself in some way: not at all Total score: 0 Depression Screening Interpretation: Negative Depression Screening Done: Yes 41306 - PHQ-9 Billing: Yes Source: Developed by Drs. Sudeep Estes, Ronit Brewer, Harry Carter and colleagues, with an educational sahara from [employer]. Thrive Questionnaire Date Thrive assessed: 04/03/23 I am a: Patient What is your living situation today?: I have a steady place to live Within the past 12 months, did the food you bought not last and you didn't have the money to get more?: Never true Within the past 12 months, did you worry whether your food would run out before you got money to buy more?: Never true Do you have trouble paying for medicines?: No Do you have trouble getting transportation to medical appointments?: No Do you have trouble paying your heating and electricity bill?: No Do you have trouble taking care of your child, family member or friend?: No Do you have trouble with day-to-day activities such as bathing, preparing meals, shopping, managing finances, etc.?: No Are you currently unemployed and looking for a job?: No Are you interested in more education?: No Please select the resources that you would like help with: None Currently or been in a relationship where the following occur: no concerns r eported THRIVE Score: 0 AUDIT C Alcohol Use Questionnaire (AUDIT-C) 1. How often do you have a drink containing alcohol?: Never Total Score: 0 KELLI-7 AMB Questionnaire KELLI-7 Date KELLI - 7 assessed: 04/03/23 Feeling nervous, anxious, or on edge: 0 = Not at all Not being able to stop or control worryin = Not at all Worrying too much about different things: 0 = Not at all Trouble relaxin = Not at all Being so restless that it is hard to sit still: 0 = Not at all Becoming easily annoyed or irritable: 0 = Not at all Feeling afraid as if something awful might happen: 0 = Not at all Total KELLI-7 score (0-4 normal; 5-9 mild; 10-14 moderate; 15-21 severe): 0 Source: Developed by Drs. Sudeep Estes, Ronit Brewer, Harry Carter and colleagues, with an educational sahara from [employer]. KELLI-7 Assessment Billing KELLI-7 Assessment Tool: KELLI-7 Assessment 34216 Review of Systems Const All systems reviewed & are unremarkable except as noted in HPI and below Eyes Reports no additional complaints, Denies change in vision and Denies other visual disturbances Card Denies chest pain at rest, Denies chest pain with activity, Denies edema, Denies irregular heart rhythm, Denies claudication, Denies dyspnea, Denies dyspnea on e xertion, Denies orthopnea, Denies paroxysmal nocturnal dyspnea and Denies slow heart rate Resp Denies cough, Denies dyspnea and Denies dyspnea on exertion GI Denies abdominal pain, Denies change in bowel habits, Denies excessive flatus, Denies nausea and Denies vomiting Denies urinary hesitancy, Denies urinary incontinence and Denies urinary urgency Musc Denies abnormal gait, Denies atrophy, Denies deformity and Denies limited range of motion Skin/Breast Denies bleeding lesions, Denies changing lesions and Denies rash Neuro Denies abnormal gait and Denies lack of coordination Physical exam (Primary Care) Vital Signs: Last Vital Signs Pulse 84 04/03/23 12:30 BP 120/62 04/03/23 12:30 Pulse Ox 92 04/03/23 12:30 Oxygen Delivery Method Room Air 04/03/23 12:30 BMI result Body Mass Index 28.9 Tobacco/Smoking Status: Tobacco use Status Tobacco use date assessed 04/03/23 04/03/23 12:40 Patient Tobacco Use Status Former Tobacco user 04/03/23 12:33 Tobacco use type Cigarette 04/03/23 12:33 e-Cigarette/Vaping Use Former Use 04/03/23 12:33 PHQ-9: PHQ-9 Score PHQ-9: Total score 0 04/03/23 12:47 Depression Screening Interpretation: Negative Thrive Assessment: Date of Thrive Assessment Date Thrive assessed 04/03/23 04/03/23 12:40 Currently or been in a relationship where the following occur: no concerns reported Eyes General: appearance normal, both eyes and all related structures Eyelids: Yes eyelids normal Conjunctivae: conjunctivae normal Neck Neck: Yes normal visual inspection and Yes supple Resp Effort & Inspection: normal respiratory effort Auscultation: clear to auscultation bilaterally Cardio Jugular venous distension: no JVD Rate: regular rate Rhythm: regular rhythm Heart sounds: S1 normal heart sound present and S2 normal heart sound present Extrem General: Yes full ROM Office Procedures Flu Questionnaire Does the patient have a severe egg allergy?: No Results AMB Hemoglobin A1c AMB Hemoglobin A1c 6.5 % Last Edit by DENISE Souza on 04/03/23 12:5 2 Immunizations flu vacc [id number] 6mos up(PF) 60 mcg(15 mcgx4)/0.5 mL IM syringe Performing Provider: Olga Calzada MD Performing Location: [facility] [place] [facility] Documented (not given) by: DENISE Souza on 04/03/23 12:46 Reason Not Given: Not Given Assessment and Plan Assessment & Plan (1) Hospital discharge follow-up: Code(s): Z09 - Encounter for follow-up examination after completed treatment for conditions other than malignant neoplasm Plan: Discharge date 03/31/2023 due to pneumonia. Completed IV antibiotics and was discharged with oral Levaquin. Had IV steroids and oxygen saturation improved to 100% with 2 L of oxygen. Patient feels markedly improved. (2) Community acquired pneumonia: Code(s): J18.9 - Pneumonia, unspecified organism Plan: Complete Levaquin oral. Repeat chest x-ray. (3) Congestive heart failure: Code(s): I50.9 - Heart failure, unspecified Qualifiers: Heart failure type: systolic Heart failure chronicity: chronic Qualified Code(s): I50.22 - Chronic systolic (congestive) heart failure Plan: Continue carvedilol. Use diuretics as needed. The goal is to not gain 5 lb in a week. Follow-up with Cardiology. (4) COPD (chronic obstructive pulmonary disease): Comment: uses O2 2L continuous Code(s): J44.9 - Chronic obstructive pulmonary disease, unspecified Qualifiers: COPD type: COPD with acute exacerbation Qualified Code(s): J44.1 - Chronic obstructive pulmonary disease with (acute) exacerbation Plan: Continue long-acting inhaler. Use rescue inhaler as needed. Use oxygen as needed. Follow-up with pulmonology. (5) Diabetes: Comment: states told has diabetes this year, no Rx yet, watching diet at this time- states glucose was 156 yesterday Code(s): E11.9 - Type 2 diabetes mellitus without complications Plan: Continue metformin. A1c goal is equal or less than 7%. Orders: Orders AMB Hemoglobin A1c Today E11.9 - Type 2 diabetes mellitus without complications Influenza [id number] Immunization Today Z23 - Encounter for immunization XR chest 2V Today J18.9 - Pneumonia, unspecified organism Coding Level of Care Code TCM Mod MDM <= 7 Days Diagnoses Hospital discharge follow-up Z09 Community acquired pneumonia J18.9 Chronic systolic congestive heart failure I50.22 Heart failure type: systolic Heart failure chronicity: chronic Chronic obstructive pulmonary disease with acute exacerbation J44.1 COPD type: COPD with acute exacerbation Diabetes E11.9 Additional Codes KELLI-7 Assessment Billing - KELLI-7 Assessment Tool: KELLI-7 Assessment 85246 ([id number]) Time Spent (min) 28
== END 2023-04-03 12:53 | disposition home or self-care (01) ==
PROVIDERS: PCP Internal Medicine; Visit Provider Internal Medicine
DX: J18.9 Pneumonia, unspecified organism (principal); I50.22 Chronic systolic (congestive) heart failure; J44.1 Chronic obstructive pulmonary disease with (acute) exacerbation; E11.9 Type 2 diabetes mellitus without complications
CPT/HCPCS: 83036; 99214

== ENCOUNTER 2023-04-06 12:46 | Outpatient (REF) | payer MEDICARE, MEDICAID, SELFPAY ==
--- NOTE | 2023-04-06 12:50 | EMG_ITS ---
Chief complaint: 82-year-old, diabetic, complaining of cramps on base of left thumb. Denied numbness on his hands/fingers. Reason for referral: Evaluate for neuropathy? Referred by: Dr. Olga Calzada Procedure done: Left upper extremity NCS/EMG Precautions and/or limitations: On Eliquis Lithuanian speaking, seen with a quantitative analyst developer The limb temperature was monitored continuously and remained between 32-36 degrees C during the performance of the NCS. Ulnar motor NCS was performed with moderate elbow flexion between 70-90 degrees, with across-elbow distance of 10 cm. Nerve Conduction Studies Anti Sensory Summary Table ?Stim Site NR Onset (ms) Norm Onset (ms) Peak (ms) Norm Peak (ms) O-P Amp (?V) Norm O-P Amp Site1 Site2 Delta-0 (ms) Dist (cm) Darren (m/s) Norm Darren (m/s) Left Median Anti Sensory (2nd Digit) Wrist ? 3.4 4.1 <3.6 13.1 >10 Wrist 2nd Digit 3.4 14.0 41 Left Radial Anti Sensory (Thumb) Forearm ? 1.7 2.4 <3.1 11.2 Forearm Thumb 1.7 0.0 Left Ulnar Anti Sensory (5th Digit) Wrist ? 3.3 4.0 <3.7 12.3 >15.0 Wrist 5th Digit 3.3 14.0 42 Motor Summary Table ?Stim Site NR Onset (ms) Norm Onset (ms) O-P Amp (mV) Norm O-P Amp iAmp (mV) Amp (1st) (%) Site1 Site2 Delta-0 (ms) Dist (cm) Darren (m/s) Norm Darren (m/s) Left Median Motor (Abd Poll Brev) Wrist ? 4.9 <3.9 3.8 >4.5 4.4 100.0 Elbow Wrist 4.7 24.5 52 >45 Elbow ? 9.6 3.3 4.0 86.8 Left Ulnar Motor (Abd Dig Minimi) Wrist ? 3.5 <3.0 4.6 >5 6.4 100.0 B Elbow Wrist 3.8 22.0 58 >45 B Elbow ? 7.3 3.9 5.3 84.8 A Elbow B Elbow 2.0 10.0 50 >45 A Elbow ? 9.3 3.7 4.8 80.4 EMG ?Side Muscle Nerve Root Ins Act Fibs Psw Amp Dur Poly Recrt Int Pat Comment Left 1stDorInt Ulnar C8-T1 Nml Nml Nml Nml Nml 0 Nml Complete Left FlexCarRad Median C6-7 Nml Nml Nml Nml Nml 0 Nml Complete Left Biceps Musculocut C5-6 Nml Nml Nml Nml Nml 0 Nml Complete Left Triceps Radial C6-7-8 Nml Nml Nml Nml Nml 0 Nml Complete Left Deltoid Axillary C5-6 Nml Nml Nml Nml Nml 0 Nml Complete FINDINGS: Left median motor nerve showed prolonged distal latency, small amplitude and normal conduction velocity. Left ulnar motor nerve showed prolonged distal latency, small amplitude and slight slowing conduction velocity of conduction velocity across the elbow. Left median sensory nerve showed prolonged peak latency. Left ulnar sensory nerve showed prolonged peak latency and small amplitude. Left radial sensory nerve within normal. Concentric needle EMG was performed in selected muscles of the lower extremity. Study did not reveal signs of electric abnormalities as shown in the table below. IMPRESSION: 1. This is an abnormal study. 2. 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 3. There is electrodiagnostic evidence for left ulnar neuropathy at the elbow. 4. There is no electrodiagnostic evidence for brachial plexopathy or cervical radiculopathy. Thank you for your kind referral. Kailyn Madden MD, MEL Board Certified, [place] Board of Physical Medicine and Rehabilitation (ABPMR) Board Certified, [place] Board of Electrodiagnostic Medicine (ABEM) COD[place] [id number] [facility]
== END 2023-04-06 12:47 | disposition home or self-care (01) ==
LOC: HO.NEURO 12:46
PROVIDERS: PCP Internal Medicine; Visit Provider Internal Medicine
DX: R20.2 Paresthesia of skin (principal)
CPT/HCPCS: 95886; 95909

== ENCOUNTER → 2023-04-06 12:50 | Outpatient (BNV) | payer MEDICARE, MEDICAID, SELFPAY | PROVIDERS: PCP Internal Medicine; Visit Provider Physical Medicine & Rehabilitation | DX: G56.02 Carpal tunnel syndrome, left upper limb (principal); G56.22 Lesion of ulnar nerve, left upper limb | CPT/HCPCS: 95886; 95909 ==

== ENCOUNTER 2023-04-23 08:46 | Day surgery (SDC) | payer MEDICARE, MEDICAID, SELFPAY ==
[2023-04-17 07:06] VITALS: BMI 28.9
--- NOTE | 2023-04-20 08:50 | P.CONAN_ITS ---
Documented by User: Maile Mota NP 04/20/23 08:52 HPI - Anesthesia Eval Consult details Narrative: 82yo M for Left Intraocular Lens Implant PCP cleared s/p cataract, trab 09/2022: Fent 50, Midaz 1 Eliquis for afib PMFSH Active Problems Active Problems: All Active Problems (Updated 04/08/23 @ 00:02 by Lizzie Waldrop) Left carpal tunnel syndrome (Acute) Congestive heart failure (Acute) Hospital discharge follow-up (Acute) Community acquired pneumonia (Acute) Pre-op evaluation (Acute) COVID-19 (Acute) 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 (Acute) Urinary retention (Acute) BPH loc w urin obs/LUTS (Acute) Nephrolithiasis (Acute) Paresthesia (Acute) COPD (chronic obstructive pulmonary disease) (Acute) Emphysema with chronic bronchitis (Acute) Supplemental oxygen dependent (Acute) Bronchiectasis (Acute) Bronchitis (Acute) Bifascicular block (Acute) Chronic anticoagulation (Acute) Diabetes (Acute) GERD (gastroesophageal reflux disease) (Acute) Kidney stone on left side (Acute) Loss of balance (Acute) Lumbar degenerative disc disease (Acute) Past Medical History Medical History Congestive heart failure Bronchiectasis Acute and chronic respiratory failure BPH loc w urin obs/LUTS Urinary retention History of COVID-19 Chronic anticoagulation History of pneumothorax Diabetes Supplemental oxygen dependent COPD (chronic obstructive pulmonary disease) Kidney stone on left side Paroxysmal atrial fibrillation Hearing loss NICM (nonischemic cardiomyopathy) JESSA (mycobacterium avium-intracellulare) Bronchiectasis Glaucoma Pure hypercholesterolemia GERD (gastroesophageal reflux disease) History of MAC infection Essential hypertension Family History Family History Father No problems noted. Mother Medical history unknown Sister Diabetes Daughter In good health Son In good health Brother No problems noted. Family history of problems with anesthesia: No Surgical History Surgical History History of transurethral resection of bladder tumor (TURBT) History of cataract surgery History of left inguinal hernia repair History of bronchoscopy History of colonoscopy History of lumbar surgery History of cystoscopy History of Problems with Anesthesia: No Social History Social History Household Members: None Housing: Apartment Are you a primary healthcare analyst to a significant other at home: No Do you presently have visiting nurse or other home services: Yes (RELIABILITY SPECIALIST) Alcohol intake: former Comment: pt refusing bed alarm for moderate fall risk Patient Tobacco Use Status: Former Tobacco user Quit Date: 10 years ago Tobacco use type: Cigarette e-Cigarette/Vaping Use: Former Use Second Hand Smoke Exposure: No Advance Directives: No Advance Directives Information Provided: Yes Advance Directives on File: Yes Advance Directives Date on File: 02/03/22 service: No Current occupational status: retired Cognitive needs: No Hearing needs: Yes Vision needs: Yes Meds Allergies Allergy/AdvReac Type Severity Reaction Status Date / Time Penicillins [PENICILLINS] Allergy Intermediate PASSED Verified 04/03/23 12:44 OUT trazodone Allergy Intermediate tremors Verified 04/03/23 12:44 brimonidine [From Alphagan P] Allergy Unknown Verified 04/03/23 12:44 diphenhydramine Allergy Unknown Verified 04/03/23 12:44 [From Benadryl] Home Medications Medication Instructions Recorded Confirmed Last Taken Type albuterol sulfate 90 mcg/actuation 2 puff inhalation Q4H PRN wheezing 03/09/23 04/03/23 Unknown History aerosol inhaler (Ventolin HFA) apixaban 5 mg tablet (Eliquis) 5 mg PO BID 03/09/23 04/03/23 03/08/23 History finasteride 5 mg tablet 5 mg PO DAILY 03/09/23 04/03/23 03/08/23 History lovastatin 10 mg tablet 10 mg PO DAILY 03/09/23 04/03/23 03/08/23 History metformin 500 mg tablet,extended 500 mg PO DAILY 03/09/23 04/03/23 03/08/23 History release 24 hr omeprazole 40 mg capsule,delayed 40 mg PO DAILY 03/09/23 04/03/23 03/08/23 History release sacubitril 24 mg-valsartan 26 mg 1 tab PO BID 03/09/23 04/03/23 03/08/23 History tablet (Entresto) travoprost 0.004 % eye drops 1 drp ophthalmic-Right BEDTIME 03/09/23 04/03/23 03/07/23 History Exam Height,Weight and Vital Signs: Height 5 ft Weight 67.132 kg Assessment and Plan Assessment Anesthesia Assessment: Chart Reviewed Final Anesthetic Review Family History of Problems with Anesthesia: No History of Problems with Anesthesia: No Documented by User: Ashley Ashford MD 04/23/23 10:41 [facility] Past Medical History Medical History Congestive heart failure Bronchiectasis Acute and chronic respiratory failure BPH loc w urin obs/LUTS Urinary retention History of COVID-19 Chronic anticoagulation History of pneumothorax Diabetes Supplemental oxygen dependent COPD (chronic obstructive pulmonary disease) Kidney stone on left side Paroxysmal atrial fibrillation Hearing loss NICM (nonischemic cardiomyopathy) JESSA (mycobacterium avium-intracellulare) Bronchiectasis Glaucoma Pure hypercholesterolemia GERD (gastroesophageal reflux disease) History of MAC infection Essential hypertension Family History Family History Father No problems noted. Mother Medical history unknown Sister Diabetes Daughter In good health Son In good health Brother No problems noted. Surgical History Surgical History History of transurethral resection of bladder tumor (TURBT) History of cataract surgery History of left inguinal hernia repair History of bronchoscopy History of colonoscopy History of lumbar surgery History of cystoscopy Social History Social History Household Members: None Housing: Apartment Are you a primary healthcare analyst to a significant other at home: No Do you presently have visiting nurse or other home services: Yes (RELIABILITY SPECIALIST) Alcohol intake: former Comment: pt refusing bed alarm for moderate fall risk Patient Tobacco Use Status: Former Tobacco user Quit Date: 10 years ago Tobacco use type: Cigarette e-Cigarette/Vaping Use: Former Use Second Hand Smoke Exposure: No Advance Directives: No Advance Directives Information Provided: Yes Advance Directives on File: Yes Advance Directives Date on File: 02/03/22 service: No Current occupational status: retired Cognitive needs: No Hearing needs: Yes Vision needs: Yes Meds Allergies Allergy/AdvReac Type Severity Reaction Status Date / Time Penicillins [PENICILLINS] Allergy Intermediate PASSED Verified 04/03/23 12:44 OUT trazodone Allergy Intermediate tremors Verified 04/03/23 12:44 brimonidine [From Alphagan P] Allergy Unknown Verified 04/03/23 12:44 diphenhydramine Allergy Unknown Verified 04/03/23 12:44 [From Benadryl] Home Medications Medication Instructions Recorded Confirmed Last Taken Type albuterol sulfate 90 mcg/actuation 2 puff inhalation Q4H PRN wheezing 03/09/23 04/03/23 Unknown History aerosol inhaler (Ventolin HFA) apixaban 5 mg tablet (Eliquis) 5 mg PO BID 03/09/23 04/03/23 03/08/23 History finasteride 5 mg tablet 5 mg PO DAILY 03/09/23 04/03/23 03/08/23 History lovastatin 10 mg tablet 10 mg PO DAILY 03/09/23 04/03/23 03/08/23 History metformin 500 mg tablet,extended 500 mg PO DAILY 03/09/23 04/03/23 03/08/23 History release 24 hr omeprazole 40 mg capsule,delayed 40 mg PO DAILY 03/09/23 04/03/23 03/08/23 History release sacubitril 24 mg-valsartan 26 mg 1 tab PO BID 03/09/23 04/03/23 03/08/23 History tablet (Entresto) travoprost 0.004 % eye drops 1 drp ophthalmic-Right BEDTIME 03/09/23 04/03/23 03/07/23 History Exam Airway Mallampati Class: III TM Dist: >3cm Neck ROM: Full Denture: Upper Loose/Missing/Broken Teeth: Yes, Upper and Lower Heart: RRR Lungs: SCATTERED MILD RHONCHI Assessment and Plan Assessment Anesthesia Assessment: Anesthesia Plan Discussed Final Anesthetic Review NPO: Yes ASA Class: III Final Preanesthetic Review: Meds/Allgs Chart Reviewed, Consent Obtained/Reviewed and Anes Risks/Benef Reviewed Patient Risk: Intermediate Procedure Risk: Low Anesthetic Plan Anesthetic Plan: MAC: Disposition: Standard PACU
[2023-04-23] VITALS (8 sets, daily range): BP systolic 97–131; BP diastolic 40–67; PULSE 67–84; RESP 12–20; TEMP 36.2–36.6; O2SAT 96–99
[2023-04-23 10:35] LABS: Glucose, Whole Blood 101 mg/dL (60-115)
[2023-04-23] MEDS: Lactated Ringers 500 ML 50 ML IV (10:47)
--- NOTE | 2023-04-23 12:45 | MHC.SHP ---
Pre-Procedural Eval Section A - 24 Hr Update-Section A only Date of Service: 04/23/23 The patient is an INPATIENT: No Changes since office visit: No Cold of Flu in the past 2 weeks, No New Medical Problems, No Changes in Medication and No Patient answered all questions The patient has been examined within 24 hours of the surgical procedure. The History & Physical has been completed within 30 days and I have reviewed it.: Yes Section B - Complete if H&P > 30 days Chief Complaint: Aphakia, left eye Allergies: Allergies Allergy/AdvReac Type Severity Reaction Status Date / Time Penicillins [PENICILLINS] Allergy Intermediate PASSED Verified 04/03/23 12:44 OUT trazodone Allergy Intermediate tremors Verified 04/03/23 12:44 brimonidine [From Alphagan P] Allergy Unknown Verified 04/03/23 12:44 diphenhydramine Allergy Unknown Verified 04/03/23 12:44 [From Benadryl] Plan Diagnosis/Plan: Unchanged I have reviewed the history and physical and performed a pertinent physical examination on my patient. No changes have occurred unless specified. Time Spent With Patient Time: Total time managing care of this patient today ____ minutes.
--- NOTE | 2023-04-23 12:46 | HO.PNOPHT ---
Documented by User: Ashley Ashford MD 04/23/23 14:30 Ophthalmology Procedure Procedure Date of Service: 04/23/23 Documented by User: Garrett Mandel Ophthalmology Procedure Procedure Date of Service: 04/23/23
--- NOTE | 2023-04-24 01:22 | OP_ITS ---
DATE OF SERVICE: 04/23/2023 SURGEON: Garrett Mandel MD PREOPERATIVE DIAGNOSIS: POSTOPERATIVE DIAGNOSIS: Aphakia. PROCEDURE PERFORMED: Vitrectomy with placement of an anterior chamber intraocular lens. ESTIMATED BLOOD LOSS: COMPLICATIONS: ANESTHESIA: ASSISTANTS: SPECIMENS: INDICATION FOR SURGERY: Aphakia. DESCRIPTION OF PROCEDURE: After being placed under anesthesia, the left eye was prepped and draped in usual sterile fashion. Attention was directed to the left eye which was prepped and draped. The operating room microscope was positioned over the left eye. A lidocaine injection was given subconjunctivally followed by creation of a paracentesis. Cautery was then utilized to achieve hemostasis. Partial thickness scleral wound was then created superiorly approximately 6 mm in length with a hoda blade. The wound was then extended to full thickness with a Supersharp 15-degree blade. Viscoelastic was then instilled into the anterior chamber. Viscoelastic was placed in the anterior chamber followed by placing the anterior chamber lens. During this procedure, the patient became very uncomfortable and I elected to place the patient under general anesthesia. After being placed under general anesthesia, attention was directed back to the left eye, a retention suture through the scleral partial thickness on posterior lip of scleral wound. Viscoelastic was then instilled once again. Anterior vitrectomy ensued to be sure there was no prolapsed vitreous. The ACIOL was once again positioned into the sulcus. The wound was closed with interupted 9-0 Nylon suture. The conjuctiva was closed with 9-0 Vicryl suture. The woud was checked . Vigamox 0.1ml was given intracameral. The patient will be seen in 1 day. MD LIDYA Little/NESSA / [id number] MTDD
== END 2023-04-23 16:25 | disposition home or self-care (01) ==
PROVIDERS: PCP Internal Medicine; Visit Provider Ophthalmology
PROC: (CPT 66986; principal; 2023-04-23 11:10)
DX: H27.02 Aphakia, left eye (principal); H40.1132 Primary open-angle glaucoma, bilateral, moderate stage; E78.00 Pure hypercholesterolemia, unspecified; I11.0 Hypertensive heart disease with heart failure; I50.22 Chronic systolic (congestive) heart failure; I48.0 Paroxysmal atrial fibrillation; E11.9 Type 2 diabetes mellitus without complications; J44.1 Chronic obstructive pulmonary disease with (acute) exacerbation; Z99.81 Dependence on supplemental oxygen; Z79.01 Long term (current) use of anticoagulants; Z79.51 Long term (current) use of inhaled steroids; Z79.52 Long term (current) use of systemic steroids; Z79.84 Long term (current) use of oral hypoglycemic drugs; Z79.899 Other long term (current) drug therapy; Z88.0 Allergy status to penicillin; Z88.8 Allergy status to other drugs, medicaments and biological substances; Z98.890 Other specified postprocedural states; Z87.891 Personal history of nicotine dependence
CPT/HCPCS: 66985; 67005; 82947; J1100; J2250; J2371; J2405; J2598; J2704; J3010; J3301; J7999; V2630

== ENCOUNTER 2023-05-06 09:31 | Emergency (ER) | payer MEDICARE, MEDICAID, SELFPAY ==
--- NOTE | ~2023-05-06 | XR_ITS ---
EXAMINATION: XR CHEST CLINICAL INFORMATION: Generalized weakness. COMPARISON: Chest radiograph dated 03/30/2023. CT chest dated 03/30/2023. TECHNIQUE: Frontal view of the chest was obtained. FINDINGS: There is unchanged deviation of the trachea towards the right side. The cardiac silhouette remains stable in size and configuration. The lungs are hyperinflated. Again seen are multifocal airspace opacities throughout both lungs. There are multiple areas of lucency throughout the upper lobes, particularly on the right side consistent with known bullous disease. There is no pneumothorax or large pleural effusion. There is tenting of the right hemidiaphragm. No acute osseous abnormality. XR/XR chest 1V IMPRESSION: Multifocal airspace disease is redemonstrated on a background of diffuse emphysematous changes. There is no pneumothorax or large pleural effusion.
[2023-05-06 09:42] VITALS: BP 132/63; BP 148/78; PULSE 75; PULSE 77; RESP 23; TEMP 37.6; O2SAT 95; O2SAT 96; BMI 21.8
[2023-05-06 09:49] VITALS: BP 132/63; PULSE 75; RESP 22; TEMP 37.6; O2SAT 95
--- NOTE | 2023-05-06 10:02 | ECG_ITS ---
Test Reason : GENERALIZED WEAKNESS Blood Pressure : / mmHG Vent. Rate : 066 BPM Atrial Rate : 066 BPM P-R Int : 116 ms QRS Dur : 144 ms QT Int : 412 ms P-R-T Axes : 064 -38 -02 degrees QTc Int : 431 ms Normal sinus rhythm Left axis deviation Right bundle branch block Abnormal ECG When compared with ECG of 30-MAR-2023 17:07, No significant change was found Referred By: Imelda Beltran Electronically Signed By:BEATRIS PERALTA
--- NOTE | 2023-05-06 10:05 | ED.GENADULT ---
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 Patient feels no energy, generalized weakness. Patient had left eye surgery last week been complaining of left eye pain, and left eye discharge. Related Data Home Medications Medication Instructions Recorded Confirmed albuterol sulfate 90 mcg/actuation 2 puff inhalation Q4H PRN wheezing 03/09/23 04/03/23 aerosol inhaler (Ventolin HFA) apixaban 5 mg tablet (Eliquis) 5 mg PO BID 03/09/23 04/03/23 finasteride 5 mg tablet 5 mg PO DAILY 03/09/23 04/03/23 lovastatin 10 mg tablet 10 mg PO DAILY 03/09/23 04/03/23 metformin 500 mg tablet,extended 500 mg PO DAILY 03/09/23 04/03/23 release 24 hr omeprazole 40 mg capsule,delayed 40 mg PO DAILY 03/09/23 04/03/23 release sacubitril 24 mg-valsartan 26 mg 1 tab PO BID 03/09/23 04/03/23 tablet (Entresto) travoprost 0.004 % eye drops 1 drp ophthalmic-Right BEDTIME 03/09/23 04/03/23 Previous Rx's Medication Instructions Recorded walker #1 ea 03/20/22 blood-glucose meter (FreeStyle #1 ea 09/13/22 Lite Meter kit) blood sugar diagnostic (FreeStyle #100 ea 10/30/22 Lite Strips) lancets 28 gauge (FreeStyle #100 ea 10/30/22 Lancets) Anoro Ellipta 62.5 mcg-25 1 ea PO DAILY #60 ea 02/12/23 mcg/actuation powder for inhalation (umeclidinium-vilanterol) docusate sodium 100 mg capsule 100 mg PO BID 90 days #180 caps 03/13/23 tamsulosin 0.4 mg capsule 0.4 mg PO DAILY 30 days #30 caps 03/19/23 bumetanide 0.5 mg tablet 0.5 mg PO DAILY #30 tabs 03/21/23 levofloxacin 750 mg tablet 750 mg PO DAILY 4 days #4 tabs 03/31/23 prednisone 20 mg tablet 40 mg (2 x 20 mg) PO DAILY #6 tabs 03/31/23 ipratropium 0.5 mg-albuterol 3 mg 3 ml inhalation QID PRN for 04/06/23 (2.5 mg base)/3 mL nebulization dyspnea #180 mL soln carvedilol 6.25 mg tablet 6.25 mg PO BID #60 tabs 04/17/23 erythromycin 5 mg/gram (0.5 %) eye 0.5 inch ophthalmic (eye) QID #50 05/06/23 ointment grams Allergies Allergy/AdvReac Type Severity Reaction Status Date / Time Penicillins [PENICILLINS] Allergy Intermediate PASSED Verified 04/03/23 12:44 OUT trazodone Allergy Intermediate tremors Verified 04/03/23 12:44 brimonidine [From Alphagan P] Allergy Unknown Verified 04/03/23 12:44 diphenhydramine Allergy Unknown Verified 04/03/23 12:44 [From Benadryl] Review of Systems Review of Systems: All other systems are reviewed and are negative Constitutional: Reports as per HPI and Reports no additional constitutional complaints Eyes: Reports as per HPI and Reports no additional eye complaints Reports system reviewed and no additional complaints, except as documented Cardiovascular: Reports as per HPI and Reports no additional cardiovascular complaints Respiratory: Reports as per HPI and Reports no additional respiratory complaints Gastrointestinal: Reports as per HPI and Reports no additional gastrointestinal complaints Genitourinary: Reports no additional female genitourinary complaints Musculoskeletal: Reports no additional musculoskeletal complaints Skin/Breast: Reports system reviewed and no additional complaints, except as docu Psychiatric: Reports no additional psychiatric complaints Endocrine: Reports no additional endocrine complaints Hematologic/Lymphatic: Reports no additional hematologic/lymphatic complaints Allergic/Immunologic: Reports no additional allergic/immunologic complaints Reports system reviewed and no additional complaints, except as documented and Reports Abnormal speech present [facility] Past Medical History Medical History Congestive heart failure Bronchiectasis Acute and chronic respiratory failure BPH loc w urin obs/LUTS Urinary retention History of COVID-19 Chronic anticoagulation History of pneumothorax Diabetes Supplemental oxygen dependent COPD (chronic obstructive pulmonary disease) Kidney stone on left side Paroxysmal atrial fibrillation Hearing loss NICM (nonischemic cardiomyopathy) JESSA (mycobacterium avium-intracellulare) Bronchiectasis Glaucoma Pure hypercholesterolemia GERD (gastroesophageal reflux disease) History of MAC infection Essential hypertension Surgical History History of transurethral resection of bladder tumor (TURBT) History of cataract surgery History of left inguinal hernia repair History of bronchoscopy History of colonoscopy History of lumbar surgery History of cystoscopy Family History Family History Father No problems noted. Mother Medical history unknown Sister Diabetes Daughter In good health Son In good health Brother No problems noted. 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) Alcohol intake: former Comment: pt refusing bed alarm for moderate fall risk Patient Tobacco Use Status: Former Tobacco user Quit Date: 10 years ago Tobacco use type: Cigarette Smoked in Last 30 Days: No e-Cigarette/Vaping Use: Former Use Second Hand Smoke Exposure: No Use of substances other than those prescribed or required for medical reasons: No Advance Directives: No Advance Directives Information Provided: No Advance Directives Date on File: 02/03/22 service: No Current occupational status: retired Cognitive needs: No Hearing needs: Yes Vision needs: Yes Physical Exam ED Vital Signs: Vital Signs - 24 hr 05/06/23 09:42 05/06/23 09:49 05/06/23 13:14 Temperature 99.6 F 99.6 F Pulse Rate 77 75 72 Respiratory Rate 23 H 22 H 18 Blood Pressure 132/63 132/63 122/62 Pulse Oximetry 96 95 97 Oxygen Delivery Method Nasal Cannula Nasal Cannula Nasal Cannula Oxygen Flow Rate 2 2 BMI result Body Mass Index 21.8 Vital signs have been reviewed and appear to be correct. Blood pressure elevated. Heart rate normal. Respiratory rate normal. Temperature normal. Oxygen saturation normal. Appearance: Alert. Oriented X3. No acute distress. Head: Normal external exam. Normocephalic. Atraumatic. No Mckeon signs noted. No raccoon eyes noted Eyes: Right 20/70 left can not see, IOP on right 20 IOP on the left 28-31 General: appearance normal, both eyes and all related structures Visual Kellogg: normal visual kellogg by confrontation Alignment and Position: alignment normal and position normal Periorbital: periorbital findings normal Eyelids: Yes eyelids normal Conjunctivae: Conjunctival injection Sclerae: Scleral injection Corneas: corneas normal Pupils: Regular on the left side sluggish to light. EOM: EOM abnormal and No Nystagmus present Direct Ophthalmoscopy: Increased scleral uptake, no corneal uptake. ENT: TM's Normal. Pharynx normal. Uvula midline. Moist mucous membranes. No trismus noted. No drooling noted. No muffled voice noted. Neck: Normal inspection. Neck supple. FROM. No adenopathy. Thyroid Normal. No meningeal signs. No neck mass noted. CVS: Normal heart rate and rhythm. Heart sound normal. No murmurs noted. Pulses normal throughout. Respiratory: No respiratory distress. Painless inspiration. Breath sounds normal. No wheezes/rales/rhonchi noted. Chest nontender. No accessory muscle usage noted or decreased air movement noted. Abdomen: Soft and nontender. Bowel sounds normal in all 4 quadrants. No distention noted. No organomegaly noted. No visible injury noted. Back: No CVA tenderness. Full range of motion noted. Skin: Skin warm and dry. Normal skin color. Normal skin turgor. No rashes/lesions/lacerations noted. Extremities: No lower extremity edema. Extremities exhibit normal range of motion. Extremities nontender. Neuro: Oriented X 3. Cranial nerve exam: II-XII are grossly intact No motor deficit. No sensory deficit. Reflexes normal. Course Reevaluation(s) Reevaluation #1: 82-year-old male came in for evaluation of no energy and generalized weakness, patient is taking antibiotic prescribed at [facility] for presumed bronchitis, also left eye conjunctivitis. 1. Left eye conjunctivitis the case discussed with Dr. Mandel who recommended to start on erythromycin ointment and have the patient follow-up at his office this week. 2. Patient is positive for influenza A which can cause the patient's symptoms patient is currently on antibiotic that was instructed to finish the antibiotic. Time: 14:26 Medications Administered Discontinued Medications Generic Name Dose Route Start Last Admin Trade Name Caitlyn PRN Reason Stop Dose Admin Acetaminophen 650 mg 05/06/23 12:51 05/06/23 13:12 Acetaminophen 325 Mg Tablet PO 05/06/23 12:52 650 mg ONCE ONE Administration Fluorescein Sodium 1 strip 05/06/23 12:50 05/06/23 13:12 Fluorescein Sodium Strip EYE-LEFT 05/06/23 12:51 1 strip ONCE ONE Administration Sodium Chloride 1,000 mls @ 999 mls/hr 05/06/23 10:01 05/06/23 12:26 Ns IV 05/06/23 11:01 Infused .Q1H1M ONE Infusion Medical Decision Making Differential Diagnosis Differential Diagnoses: The differential diagnosis associated with the presentation includes (Pneumonia, pneumothorax, pleural effusion, bronchitis, asthma exacerbation, influenza, COVID-19 infection, RSV, left eye conjunctivitis, severe anemia, electrolyte derangement.) Admission/Observation Consideration of admission/observation: Escalation of care including admission/observation considered Consult Healthcare Provider Management of the patient was discussed with: Industrial Plant Custodian (Dr. Mandel) Lab Data MDM Lab Attestation statement: I reviewed the patient's lab results. 05/06/23 10:38 05/06/23 10:38 Labs: Lab Results 05/06/23 05/06/23 Range/Units 10:38 13:38 WBC 15.9 H (4.8-10.8) X10*3/uL RBC 4.82 D (4.60-5.80) X10*6/uL Hgb 10.8 L (14.0-18.0) g/dl Hct 36.3 L D (42.0-52.0) % MCV 75.3 L (80.0-98.0) fL MCH 22.4 L (27.0-33.0) pg MCHC 29.8 L (31.0-36.0) g/dl RDW 16.3 H (11.0-16.0) % Plt Count 273 (160-400) X10*3/uL MPV 10.1 (9.4-12.4) fL Immature Gran % (Auto) 0.6 H (0.0-0.4) % Neut % (Auto) 87.2 H (45-73) % Lymph % (Auto) 5.2 L (20-40) % Valley % (Auto) 6.5 (2-11) % Eos % (Auto) 0.4 (0-4) % Baso % (Auto) 0.1 (0-2) % Lymph # (Auto) 0.8 L (1.2-4.9) X10*3/uL Valley # (Auto) 1.0 (0.1-1.2) X10*3/uL Eos # (Auto) 0.1 (0.0-0.4) X10*3/uL Baso # (Auto) 0.0 (0.0-0.2) X10*3/uL Abs Immat Gran (auto) 0.10 H (0.00-0.03) X10*3/uL Absolute Neuts (auto) 13.9 H (2.0-8.3) x10*3/uL Absolute Nucleated RBC 0.000 (0.0-0.012) X10*3/uL Nucleated RBC % (auto) 0.0 (0.0-0.2) /100WBC Sodium 136 (135-145) mmol/L Potassium 4.4 (3.3-5.1) mmol/L Chloride 99 (96-108) mmol/L Carbon Dioxide 33 H (22-29) mmol/L Anion Gap 8 L (12-20) BUN 20 H (9-16) mg/dL Creatinine 0.77 (0.5-1.4) mg/dL Estim Creat Clear Calc 70.4 Estimated GFR > 60 Random Glucose 162 H (60-115) mg/dL Lactic Acid 1.0 (0.5-2.0) mmol/L Calcium 8.3 L (8.4-10.2) mg/dL Total Bilirubin 0.3 (0.0-1.0) mg/dL Direct Bilirubin 0.1 (0.0-0.5) mg/dL AST 32 (5-37) U/L ALT 80 H (0-40) U/L Alkaline Phosphatase 75 (39-117) U/L Troponin I High Sens < 2.7 (<3.5-35.0) ng/L B-Natriuretic Peptide 29 (<100) pg/mL Total Protein 6.2 L (6.5-8.0) g/dL Albumin 3.0 L (3.5-5.0) g/dL Lipase 13 (8-78) U/L Urine Color Yellow Urine Appearance Clear Urine pH 8.0 (5.0-9.0) Ur Specific Burton 1.015 (1.005-1.025) Urine Protein 30 (1+) H (Neg-Trace) mg/dL Urine Glucose (UA) Negative (Negative) mg/dL Urine Ketones Negative (Negative) mg/dL Urine Blood Negative (Negative) Urine Nitrite Negative (Negative) Ur Leukocyte Esterase Negative (Negative) Urine RBC 0-2 (0-2) /HPF Urine WBC 0-5 (0-5) /HPF Ur Squamous Epith Cells 0-2 (0-2) /HPF Urine Bacteria None Seen (None Seen) Hyaline Casts 0-2 (0-2) /LPF Influenza Type A (PCR) POSITIVE A (Negative) Influenza Type B (PCR) NEGATIVE (Negative) RSV RNA Qual (PCR) NEGATIVE (Negative) SARS-CoV-2 RNA (RT-PCR) NEGATIVE (Negative) Chronic Conditions Patient?s care impacted by: Other (COPD.) Discharge Plan Discharge Clinical Impression: Conjunctivitis Patient Disposition: Home, Self-Care Instructions: Influenza (ED), Conjunctivitis (ED) Prescriptions: New erythromycin 5 mg/gram (0.5 %) ointment 0.5 inch ophthalmic (eye) QID Qty: 50 0RF No Action (DME) walker Misc See Rx Instructions .Route Qty: 1 0RF Patient Comments: Pt states doesnot use Rx Instructions: with seat and wheels (DME) blood-glucose meter [FreeStyle Lite Meter] Kit See Rx Instructions .Route Qty: 1 0RF Rx Instructions: test once daily Anoro Ellipta 62.5-25 mcg/actuation blister with device 1 ea PO DAILY Qty: 60 6RF docusate sodium 100 mg capsule 100 mg PO BID 90 Days Qty: 180 1RF tamsulosin 0.4 mg capsule 0.4 mg PO DAILY 30 Days Qty: 30 2RF ipratropium-albuterol 0.5 mg-3 mg(2.5 mg base)/3 mL solution for nebulization 3 ml inhalation QID PRN (Reason: for dyspnea) Qty: 180 0RF carvedilol 6.25 mg tablet 6.25 mg PO BID Qty: 60 5RF bumetanide 0.5 mg tablet 0.5 mg PO DAILY Qty: 30 0RF prednisone 20 mg Tablet 40 mg PO DAILY Qty: 6 0RF Rx Instructions: next dose 04/02/23 levofloxacin 750 mg tablet 750 mg PO DAILY 4 Days Qty: 4 0RF Rx Instructions: next dose 04/01/23 am Eliquis 5 mg tablet 5 mg PO BID Entresto 24-26 mg tablet 1 tab PO BID finasteride 5 mg tablet 5 mg PO DAILY lovastatin 10 mg tablet 10 mg PO DAILY metformin 500 mg tablet extended release 24 hr 500 mg PO DAILY omeprazole 40 mg capsule,delayed release(DR/EC) 40 mg PO DAILY travoprost 0.004 % drops 1 drp ophthalmic-Right BEDTIME albuterol sulfate [Ventolin HFA] 90 mcg/actuation HFA aerosol inhaler 2 puff INHALATION Q4H PRN (Reason: wheezing) (DME) FreeStyle Lite Strips Strip See Rx Instructions .Route Qty: 100 5RF Rx Instructions: test once daily (DME) lancets [FreeStyle Lancets] 28 gauge misc See Rx Instructions .Route Qty: 100 6RF Rx Instructions: Use 1 lancet once a day Referrals: Garrett Mandel [Physician] - Olga North MD [Primary Care Provider] -
--- NOTE | 2023-05-06 10:05 | PC.NURSE ---
Pt presents to ED via EMS from home. 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 Pt reports he was diagnosed with pneumonia nara at his doctors. Pt reports an increase in SOB and WOB today, with exertion. Pt is on 2L O2 via NC at baseline at home. Pt reports cough, SOB and general malaise. Pt also reports pain in left eye X1 week, reports he has had two surgeries in that eye that both failed. Pt alert and oriented, breathing even and unlabored while at rest, slightly elevated. Skin warm and dry. Pt 95-96% on his 2L O2. Pt placed on bedside awake overnight monitor, NSR. Pt denies CP, N/V/D, ABD pain. Pt resting in bed.
[2023-05-06 10:44] LABS: MANUAL DIFF FLAG NO
[2023-05-06] MEDS: 0.9 % Sodium Chloride 1,000 ML 999 ML IV (10:44)
[2023-05-06 10:50] LABS: Basophils Percent Auto 0.1 % (0-2); Eosinophils Absolute Auto 0.1 X10*3/uL (0.0-0.4); Eosinophils Percent Auto 0.4 % (0-4); Hematocrit 36.3 % (42.0-52.0); Hemoglobin 10.8 g/dl (14.0-18.0); Imm Gran Pct Auto 0.6 % (0.0-0.4); Lymphocytes Absolute Auto 0.8 X10*3/uL (1.2-4.9); Lymphocytes Percent Auto 5.2 % (20-40); Mean Corpuscular HGB Conc 29.8 g/dl (31.0-36.0); Mean Corpuscular Hemoglobin 22.4 pg (27.0-33.0); Mean Corpuscular Volume 75.3 fL (80.0-98.0); Mean Platelet Volume 10.1 fL (9.4-12.4); Monocytes Percent Auto 6.5 % (2-11); Neutrophils Absolute Auto 13.9 x10*3/uL (2.0-8.3); Neutrophils Percent Auto 87.2 % (45-73); Platelet Count 273 X10*3/uL (160-400); Red Blood Count 4.82 X10*6/uL (4.60-5.80); Red Cell Distribution Width 16.3 % (11.0-16.0); White Blood Count 15.9 X10*3/uL (4.8-10.8)
[2023-05-06 11:04] LABS: Alanine Aminotransferase 80 U/L (0-40); Alkaline Phosphatase 75 U/L (39-117); Anion Gap 8 (12-20); Aspartate Amino Transferase 32 U/L (5-37); Bilirubin Direct 0.1 mg/dL (0.0-0.5); Bilirubin Total 0.3 mg/dL (0.0-1.0); Blood Urea Nitrogen 20 mg/dL (9-16); Calcium 8.3 mg/dL (8.4-10.2); Carbon Dioxide 33 mmol/L (22-29); Chloride 99 mmol/L (96-108); Creatinine Clr Calc Pharmacy 70.4; Estimated Glomerular Filt Rate > 60; Glucose Random 162 mg/dL (60-115); Lipase 13 U/L (8-78); Potassium 4.4 mmol/L (3.3-5.1); Sodium 136 mmol/L (135-145); Total Protein 6.2 g/dL (6.5-8.0)
[2023-05-06 11:06] LABS: B Type Natriuretic Peptide 29 pg/mL (<100)
[2023-05-06 11:11] LABS: Troponin-I High Sensitivity < 2.7 ng/L (<3.5-35.0)
[2023-05-06 11:28] LABS: Influenza A PCR POSITIVE (Negative); Influenza B PCR NEGATIVE (Negative); Resp Syncy Virus RNA Qual PCR NEGATIVE (Negative); SARS COV2 PCR INHOUSE NEGATIVE (Negative)
[2023-05-06] MEDS: Fluorescein Sodium STRIP 1 STRIP EYE-LEFT (13:12)
[2023-05-06] MEDS: Acetaminophen 325 MG TABLET 650 MG PO (13:12)
[2023-05-06 13:14] VITALS: BP 122/62; PULSE 72; RESP 18; O2SAT 97
[2023-05-06 13:45] LABS: Appearance Urine Clear; Color Urine Yellow; Glucose Urine UA Negative (Negative); Leukocyte Esterase Urine Negative (Negative); Nitrite Urine Negative (Negative); Specific Gravity - Urine 1.015 (1.005-1.025); UMIC TRIGGER UACC YES; Urine Blood Negative (Negative); Urine Ketones Negative (Negative); Urine Protein 30 (1+) mg/dL (Neg-Trace)
[2023-05-06 13:57] LABS: Bacteria Urine None Seen (None Seen); Hyaline Casts Urine 0-2 /LPF (0-2); RBC Urine 0-2 /HPF (0-2); Squamous Epithelial Cell Urine 0-2 /HPF (0-2); WBC Urine 0-5 /HPF (0-5)
== END 2023-05-06 16:04 | disposition home or self-care (01) ==
PROVIDERS: Emergency Provider Emergency Medicine; PCP Internal Medicine
DX: H10.33 Unspecified acute conjunctivitis, bilateral (principal); J10.1 Influenza due to other identified influenza virus with other respiratory manifestations; R06.02 Shortness of breath; I45.10 Unspecified right bundle-branch block; Z99.81 Dependence on supplemental oxygen; Z11.52 Encounter for screening for COVID-19; Z20.822 Contact with and (suspected) exposure to COVID-19; Z79.899 Other long term (current) drug therapy
CPT/HCPCS: 0241U; 36415; 71045; 80048; 80076; 81001; 83605; 83690; 83880; 84484; 85025; 87040; 93005; 96360; 96361; 99284; 99285

== ENCOUNTER → 2023-05-06 10:02 | Outpatient (BNV) | payer MEDICARE, MEDICAID, SELFPAY | PROVIDERS: Emergency Provider Emergency Medicine; PCP Internal Medicine; Visit Provider Internal Medicine | DX: R94.31 Abnormal electrocardiogram [ECG] [EKG] (principal) | CPT/HCPCS: 93010 ==

== ENCOUNTER 2023-05-09 08:06 | Outpatient (AMB) | payer MEDICARE, MEDICAID, SELFPAY ==
[2023-05-09 08:16] VITALS: BP 112/60; PULSE 93; O2SAT 97; BMI 21.1
--- NOTE | 2023-05-09 08:16 | A.OFFPC_ITS ---
Vital Signs 05/09/23 08:16 Height 5 ft 8 in Weight 139 lb BMI 21.1 BP 112/60 Blood Pressure Location Lt brachial Position Sitting Pulse 93 Pulse Source Pulse Oximeter Pulse Oximetry (%) 97 Oxygen Delivery Method Nasal Cannula Intake Visit Reasons: Yaritza from 04/27-05/04 difficulty breathing. Intake Note: Patient here for [facility] discharge follow up 04/27 to 05/04 difficulty breathing, [facility] follow up flu Smoking Pipes Cleaner Required: No Accompanied by: MOTOR ROUTE CARRIER Allergies Penicillins [PENICILLINS] Allergy (Intermediate, Verified 05/09/23 08:43) PASSED OUT trazodone Allergy (Intermediate, Verified 05/09/23 08:43) tremors brimonidine [From Alphagan P] Allergy (Verified 05/09/23 08:43) Unknown diphenhydramine [From Benadryl] Allergy (Verified 05/09/23 08:43) Unknown Medication List - Last Reconciled 05/09/23 by Olga Calzada MD albuterol sulfate 90 mcg/actuation (Ventolin HFA) 2 puffs inhalation Q4H PRN Anoro Ellipta 62.5-25 mcg/actuation (umeclidinium-vilanterol) 1 ea PO DAILY NS apixaban (Eliquis) 5 mg PO BID blood sugar diagnostic (FreeStyle Lite Strips) test once daily blood-glucose meter (FreeStyle Lite Meter kit) test once daily bumetanide 0.5 mg PO DAILY carvedilol 6.25 mg PO BID docusate sodium 100 mg PO BID 90 days erythromycin 0.5 inches ophthalmic (eye) QID finasteride 5 mg PO DAILY ipratropium-albuterol 0.5 mg-3 mg(2.5 mg base)/3 mL 3 mL inhalation QID PRN lancets (FreeStyle Lancets) Use 1 lancet once a day lovastatin 10 mg PO DAILY metformin ER 500 mg PO DAILY omeprazole 40 mg PO DAILY sacubitril-valsartan 24-26 mg (Entresto) 1 tab PO BID sulfamethoxazole-trimethoprim 800-160 mg 1 tab PO BID tamsulosin 0.4 mg PO DAILY 30 days travoprost 0.004% 1 drp ophthalmic-Right BEDTIME walker with seat and wheels Tobacco use date assessed: 05/09/23 Fall risk assessment: 1 Fall in past year Last assessed Fall Risk: 05/09/23 Dental Screening Dental Screen Date: 05/09/23 Did you have a dental visit in the last 12 months?: No Did you have a dental problem in the last 6 months where you did not have access to dental care?: No Was dental information given to patient?: Patient has dentist HPI HPI Comments History of Present Illness Details This is an 82-year-old male with diabetes mellitus type 2, COPD and congestive heart failure that comes today accompanied by MOTOR ROUTE [employer]RIER for hospital discharge follow-up with discharge date 05/04/2023 due to Community acquired pneumonia. He went to the hospital in [facility] 04/26/2023 after pulmonology visit which sent him to the hospital. Was admitted 04/27/2023 with pneumonia due to stenotrophomonas maltophilia and E coli. Pulmonology and ID was consulted. CT of the chest was done showing severe multifocal bronchiectasis, bronchitis, mucus plugging and centrilobular nodularity with scattered ground-glass opacities. Findings are favored to represent severe chronic atypical mycobacterial infection. He was treated for 7 days with antibiotics. He went back to emergency room at [facility] 05/06/2023 and resulted positive for influenza A. Shortness of breath has not improved and feels fatigue and tired and is always sleeping. I started him on Tamiflu. He signed MOLST documented today in front of MOTOR ROUTE CARRIER and me. He does not want to be intubated or resuscitated. Last A1c was 6.5% in March 2023 diabetes has been well control with metformin. Last echocardiogram was 2021 showing ejection fraction 50-55%. His last NT-proBNP was normal and he denies gaining 5 lb in a week. Congestive heart failure is follow by cardiology. COPD is follow by pulmonology and is on 2 L of oxygen continuously. He also has paroxysmal atrial fibrillation on chronic anticoagulation and his heart rate has been well control. [facility] Medical History (Updated 05/09/23 @ 09:23 by Olga Calzada MD) Paroxysmal atrial fibrillation Congestive heart failure Bronchiectasis Acute and chronic respiratory failure BPH loc w urin obs/LUTS Urinary retention History of COVID-19 Chronic anticoagulation History of pneumothorax Diabetes Supplemental oxygen dependent COPD (chronic obstructive pulmonary disease) Kidney stone on left side Hearing loss NICM (nonischemic cardiomyopathy) JESSA (mycobacterium avium-intracellulare) Bronchiectasis Glaucoma Pure hypercholesterolemia GERD (gastroesophageal reflux disease) History of MAC infection Essential hypertension Surgical History History of transurethral resection of bladder tumor (TURBT) History of cataract surgery History of left inguinal hernia repair History of bronchoscopy History of colonoscopy History of lumbar surgery History of cystoscopy Family History Father No problems noted. Mother Medical history unknown Sister Diabetes Daughter In good health Son In good health Brother No problems noted. Social History Household Members: None Housing: Apartment Are you a primary health careers instructor to a significant other at home: No Do you presently have visiting nurse or other home services: Yes (MOT[employer] ROUTE [employer]RIER) Alcohol intake: former Comment: pt refusing bed alarm for moderate fall risk Patient Tobacco Use Status: Former Tobacco user Quit Date: 10 years ago Tobacco use type: Cigarette e-Cigarette/Vaping Use: Former Use Second Hand Smoke Exposure: No Advance Directives Date on File: 02/03/22 service: No Current occupational status: retired Cognitive needs: No Hearing needs: Yes Vision needs: Yes Questionnaire Thrive Questionnaire Date Thrive assessed: 04/03/23 KELLI-7 AMB Questionnaire KELLI-7 Date KELLI - 7 assessed: 04/03/23 Source: Developed by Drs. Sudeep Estes, Ronit Brewer, Harry Carter and colleagues, with an educational sahara from [employer]. Review of Systems Const All systems reviewed & are unremarkable except as noted in HPI and below Eyes Reports no additional complaints, Denies change in vision and Denies other visual disturbances Card Denies chest pain at rest, Denies chest pain with activity, Denies edema, Denies irregular heart rhythm, Denies claudication, Reports dyspnea, Reports dyspnea on exertion, Denies orthopnea, Denies paroxysmal nocturnal dyspnea and Denies slow heart rate Resp Reports cough, Reports dyspnea and Reports dyspnea on exertion GI Denies abdominal pain, Denies change in bowel habits, Denies excessive flatus, Denies nausea and Denies vomiting Denies urinary hesitancy, Denies urinary incontinence and Denies urinary urgency Musc Denies abnormal gait, Denies atrophy, Denies deformity and Denies limited range of motion Skin/Breast Denies bleeding lesions, Denies changing lesions and Denies rash Neuro Denies abnormal gait and Denies lack of coordination Physical exam (Primary Care) Vital Signs: Last Vital Signs Pulse 93 05/09/23 08:16 BP 112/60 05/09/23 08:16 Pulse Ox 97 05/09/23 08:16 Oxygen Delivery Method Nasal Cannula 05/09/23 08:16 BMI result Body Mass Index 21.1 Tobacco/Smoking Status: Tobacco use Status Tobacco use date assessed 05/09/23 05/09/23 08:24 Patient Tobacco Use Status Former Tobacco user 05/09/23 08:24 Tobacco use type Cigarette 05/09/23 08:24 e-Cigarette/Vaping Use Former Use 05/09/23 08:24 Thrive Assessment: Date of Thrive Assessment Date Thrive assessed 04/03/23 05/09/23 08:24 Neck Neck: Yes normal visual inspection and Yes supple Resp Other: nasal canula in place Effort & Inspection: normal respiratory effort and decreased respiratory effort Auscultation: crackles diffuse Cardio Jugular venous distension: no JVD Rate: regular rate Rhythm: regular rhythm Heart sounds: S1 normal heart sound present and S2 normal heart sound present Extrem General: Yes full ROM Assessment and Plan Assessment & Plan (1) Hospital discharge follow-up: Code(s): Z09 - Encounter for follow-up examination after completed treatment for conditi ons other than malignant neoplasm Plan: Admission date 04/27/2023 and discharge date was 05/04/2023 with diagnosis of community-acquired pneumonia due to stenotrophomonas maltophilia and E coli ESBL. Had CT scan of the chest showing chronic changes. Still is short of breath and feels improved when laying down in bed. Went back to ER at [facility] 05/06/2023 and was diagnosed with influenza a. Tamiflu was started today. (2) Community acquired pneumonia: Code(s): J18.9 - Pneumonia, unspecified organism Plan: Completed IV antibiotics at home. No fever. Still short of breath. (3) Influenza A: Code(s): J10.1 - Influenza due to other identified influenza virus with other respiratory manifestations Plan: Start Tamiflu. (4) Congestive heart failure: Code(s): I50.9 - Heart failure, unspecified Qualifiers: Heart failure type: systolic Heart failure chronicity: chronic Qualified Code(s): I50.22 - Chronic systolic (congestive) heart failure Plan: Continue Entresto. The goal is to not gain 5 lb in a week. Use diuretics. (5) COPD (chronic obstructive pulmonary disease): Comment: uses O2 2L continuous Code(s): J44.9 - Chronic obstructive pulmonary disease, unspecified Qualifiers: COPD type: COPD with acute exacerbation Qualified Code(s): J44.1 - Chronic obstructive pulmonary disease with (acute) exacerbation Plan: Continue neuro. Use rescue inhaler as needed. Follow-up with pulmonology. (6) Diabetes: Comment: states told has diabetes this year, no Rx yet, watching diet at this time- states glucose was 156 yesterday Code(s): E11.9 - Type 2 diabetes mellitus without complications Qualifiers: Diabetes mellitus type: type 2 Diabetes mellitus prison insulin use: without manager intermediate use Diabetes mellitus complication status: without complication Qualified Code(s): E11.9 - Type 2 diabetes mellitus without complications Plan: Continue metformin. A1c goal is equal or less than 7%. (7) Paroxysmal atrial fibrillation: Comment: taking eliquis Code(s): I48.0 - Paroxysmal atrial fibrillation Plan: Continue Eliquis. The goal is to heart rate control. Medications: New oseltamivir (Tamiflu) 75 mg PO BID 5 days 10 caps 0RF Coding Level of Care Code TCM Mod MDM <= 7 Days Diagnoses Hospital discharge follow-up Z09 Community acquired pneumonia J18.9 Influenza A J10.1 Chronic systolic congestive heart failure I50.22 Heart failure type: systolic Heart failure chronicity: chronic Chronic obstructive pulmonary disease with acute exacerbation J44.1 COPD type: COPD with acute exacerbation Type 2 diabetes mellitus without complication, without long-term current use of insulin E11.9 Diabetes mellitus type: type 2 Diabetes mellitus prison insulin use: without manager intermediate use Diabetes mellitus complication status: without complication Paroxysmal atrial fibrillation I48.0 Time Spent (min) 28
== END 2023-05-09 09:02 | disposition home or self-care (01) ==
PROVIDERS: PCP Internal Medicine; Visit Provider Internal Medicine
DX: I50.22 Chronic systolic (congestive) heart failure (principal); J44.1 Chronic obstructive pulmonary disease with (acute) exacerbation; E11.9 Type 2 diabetes mellitus without complications; I48.0 Paroxysmal atrial fibrillation; Z09 Encounter for follow-up examination after completed treatment for conditions other than malignant neoplasm; J18.9 Pneumonia, unspecified organism; J10.1 Influenza due to other identified influenza virus with other respiratory manifestations
CPT/HCPCS: 99214

== ENCOUNTER 2023-05-11 08:42 | Inpatient (IN) | payer MEDICARE, MEDICAID, SELFPAY ==
--- NOTE | ~2023-05-11 | XR_ITS ---
EXAMINATION: XR CHEST CLINICAL INFORMATION: Shortness of breath. COMPARISON: Most recent chest radiograph dated 05/11/2023. TECHNIQUE: Frontal view of the chest was obtained. FINDINGS: Emphysematous changes with chronic interstitial prominence and irregular diffuse bilateral airspace opacities, slightly increased in prominence when compared to the prior examination. No pleural effusion or pneumothorax. Stable cardiac mediastinal silhouette. XR/XR chest 1V IMPRESSION: Emphysematous changes with chronic interstitial prominence and irregular diffuse bilateral airspace opacities, slightly increased in prominence when compared to the prior examination.
--- NOTE | ~2023-05-11 | XR_ITS ---
EXAMINATION: XR CHEST CLINICAL INFORMATION: Tachycardia, tachypnea. COMPARISON: Chest radiograph 05/15/2023. TECHNIQUE: Frontal view of the chest was obtained. FINDINGS: Slightly increased consolidative airspace opacities projecting over the right lung base and lateral left lower lobe, otherwise grossly similar appearance of multifocal patchy and consolidative airspace opacities within a background of advanced chronic bronchiectasis and cystic lung disease. No significant pleural effusion. No pneumothorax. Stable appearance of the cardiomediastinal silhouette. No acute osseous findings. XR/XR chest 1V IMPRESSION: Slightly increased consolidative airspace opacities in the right lung base and lateral left lower lobe. Otherwise, grossly similar appearance of multifocal patchy and consolidative airspace opacities within a background of advanced bronchiectasis and cystic lung disease.
--- NOTE | ~2023-05-11 | XR_ITS ---
EXAMINATION: XR CHEST CLINICAL INFORMATION: Worsening hypoxia COMPARISON: Chest 05/16/2023 TECHNIQUE: AP upright portable view of the chest was obtained. 8:03 AM FINDINGS: Increased consolidative airspace opacities projecting over the right midlung and right lung base otherwise grossly similar appearance of multifocal patchy and consolidated airspace opacities with a background of advanced chronic bronchiectasis and cystic lung disease. No gross pleural effusion. The cardiomediastinal sweat is within normal limits. No acute osseous abnormality. XR/XR chest 1V IMPRESSION: Increased consolidative airspace opacities projecting over the right midlung and right lung base. Otherwise grossly similar appearance of multifocal patchy and consolidated airspace opacities with a background of advanced bronchiectasis and cystic lung disease.
--- NOTE | ~2023-05-11 | XR_ITS ---
EXAMINATION: XR CHEST CLINICAL INFORMATION: CHF COMPARISON: Chest radiograph 05/13/2023 along with multiple prior chest radiographs dating back to 01/04/2010 CT chest 03/30/2023 TECHNIQUE: Frontal view of the chest was obtained. FINDINGS: Heart size is normal. Diffuse interstitial prominence and airspace disease is seen, similar to prior studies. Wire CT scan demonstrated diffuse emphysematous changes with bronchiectasis most prominent in the lower lobes. Compared to the most recent prior study, there is some increased patchy density seen at the left lung base with obscuration of the left hemidiaphragm suggesting a superimposed focal infiltrate. Given the extent of disease, it is difficult to assess for CHF. Tiny effusions may be present but no large effusions are seen. XR/XR chest 1V IMPRESSION: 1. Diffuse interstitial and airspace disease with bronchiectasis. 2. New left lower lobe infiltrate. 3. No convincing evidence of CHF, although assessment is difficult given the background disease.
--- NOTE | ~2023-05-11 | CT_ITS ---
EXAMINATION: CT ABDOMEN AND PELVIS WITHOUT CONTRAST CLINICAL INFORMATION: Flank pain. COMPARISON: None available. TECHNIQUE: Multidetector volumetric imaging was performed from the superior aspect of the liver through the pubic symphysis. Sagittal and coronal reformatted images were obtained on the technologist's workstation. This CT examination was performed using dose optimization techniques as appropriate, variously including the following: *Automated exposure control *Adjustment of mA and/or kV according to patient size (this includes techniques or standardized protocols for targeted exams where dose is matched to indication/reason for exam; i.e. extremities or head) *Use of iterative reconstruction technique DLP: 343 mGy-cm FINDINGS: LUNG BASES: There is diffuse bilateral lower lobe and lingular airspace opacities. In addition there is mild bronchiectasis and cystic changes in both lower lobes. LIVER, GALLBLADDER, AND BILIARY TREE: The liver is normal in size, shape, and attenuation. No focal hepatic lesion or biliary ductal dilatation is present. The gallbladder is unremarkable with no evidence of radiopaque gallstones, gallbladder wall thickening, or obvious pericholecystic inflammatory changes. PANCREAS: Unremarkable. SPLEEN: Unremarkable. ADRENAL GLANDS: Unremarkable. 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 There is a nonobstructive 8 mm calculi lower pole calyx left kidney without caliectasis or hydronephrosis. A 5 mm radiopaque calculi seen in midpole left kidney.. BLADDER: Unremarkable. GASTROINTESTINAL TRACT: There is scattered moderate stool, diverticuli and gas in throughout the colon without distention or diverticulitis. The small bowel loops are normal caliber. Appendix is not visualized. There is no free air or free fluid. ABDOMINAL WALL: No significant hernia is appreciated. LYMPH NODES: Normal. VASCULAR: Unremarkable. PELVIC VISCERA: The prostate gland is mildly enlarged. There is mild soft tissue thickening in left inguinal canal. Question previous surgical changes changes with a large scar. OSSEOUS STRUCTURES: There is mild degenerative disc changes L1-L2 and T11-T12 disc levels with vacuum disc phenomena. No aggressive lytic or sclerotic process seen. CT/CT abdomen pelvis wo IV con IMPRESSION: 1. Bilateral lower lobe and lingular infiltrates. 2. 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 with nonobstructive radiopaque calculi in the lower pole and midpole left kidney. No caliectasis or hydronephrosis. 3. Mild constipation. Colonic diverticulosis without diverticulitis. 4. Mild prostate enlargement. 5. Degenerative disc changes L1-L2 and T11-T12 disc levels. Fleischner guidelines were followed.
--- NOTE | ~2023-05-11 | XR_ITS ---
EXAMINATION: XR CHEST CLINICAL INFORMATION: Chest pain COMPARISON: Chest radiograph from 05/06/2023 TECHNIQUE: Frontal view of the chest was obtained. FINDINGS: Redemonstration of multifocal airspace opacities bilaterally with cystic formation of the right upper lung field on a background of chronic emphysematous changes. No pneumothorax. Tracheal deviation to the right at the level of the aortic arch, stable. Cardiac mediastinal silhouette is stable. No large pleural effusion. Osseous structures are intact. Soft tissues are unremarkable. XR/XR chest 1V IMPRESSION: Redemonstration of multifocal airspace opacities bilaterally with cystic formation of the right upper lung field on a background of chronic emphysematous changes.
--- NOTE | ~2023-05-11 | XR_ITS ---
EXAMINATION: XR CHEST CLINICAL INFORMATION: Follow-up. Aspiration, fluid overload? COMPARISON: 05/17/2023 TECHNIQUE: Frontal view of the chest was obtained. FINDINGS: Bullous emphysema of upper lobes. Bronchial torrez remain diffusely thickened. Again noted are patchy acinar and airspace opacities of both lungs. The pulmonary disease is slightly improved compared to 05/17/2023. Cardiac silhouette is normal in size. No overt pleural effusion, pneumothorax or other significant change. No evidence of congestive heart failure. XR/XR chest 1V IMPRESSION: There are radiographic findings of bronchitis, bronchiolitis and multilobar pneumonia. Pulmonary disease is slightly improved compared to 05/17/2023.
[2023-05-11 08:49] VITALS: BP 109/63; BP 98/52; PULSE 98; PULSE 99; RESP 20; TEMP 37.1; O2SAT 100; O2SAT 97; BMI 22.1
[2023-05-11 09:12] VITALS: RESP 30
--- NOTE | 2023-05-11 09:13 | ECG_ITS ---
Test Reason : SOB Blood Pressure : / mmHG Vent. Rate : 082 BPM Atrial Rate : 082 BPM P-R Int : 118 ms QRS Dur : 134 ms QT Int : 396 ms P-R-T Axes : 063 -29 -16 degrees QTc Int : 462 ms Normal sinus rhythm Right bundle branch block Abnormal ECG When compared with ECG of 06-MAY-2023 10:31, No significant change was found Referred By: Lima Bellamy Electronically Signed By:BEATRIS PERALTA
[2023-05-11] MEDS: methylPREDNISolone Sod Succ 125 MG/2 ML VIAL IVPUSH (09:22)
--- NOTE | 2023-05-11 09:28 | ED.SOB ---
HPI - SOB/Dyspnea General Chief Complaint: Dyspnea Stated Complaint: SICK FOR 3 WEEKS SOB Time Seen by Provider: 05/11/23 08:46 History of Present Illness HPI Narrative: Patient is an 82-year-old male with a history of COPD bronchiectasis baseline on 3 L of oxygen at home. History of diabetes history of congestive heart failure with reduced ejection fraction history of hyperlipidemia paroxysmal AFib currently on Eliquis presents today after being discharged on April 23 patient has been having some coughing upper respiratory symptoms. Was evaluated about a week ago at that time was diagnosed with influenza. Since then patient's symptoms has been waxing and waning. Getting worse over last few days. Having increasing shortness of breath especially with walking with activity. Patient from home. Sent in for further evaluation as patient's O2 sat dropped to the 70s on exertion. Related Data Home Medications Medication Instructions Recorded Confirmed albuterol sulfate 90 mcg/actuation 2 puff inhalation Q4H PRN wheezing 03/09/23 05/09/23 aerosol inhaler (Ventolin HFA) apixaban 5 mg tablet (Eliquis) 5 mg PO BID 03/09/23 05/09/23 finasteride 5 mg tablet 5 mg PO DAILY 03/09/23 05/09/23 lovastatin 10 mg tablet 10 mg PO DAILY 03/09/23 05/09/23 metformin 500 mg tablet,extended 500 mg PO DAILY 03/09/23 05/09/23 release 24 hr omeprazole 40 mg capsule,delayed 40 mg PO DAILY 03/09/23 05/09/23 release sacubitril 24 mg-valsartan 26 mg 1 tab PO BID 03/09/23 05/09/23 tablet (Entresto) travoprost 0.004 % eye drops 1 drp ophthalmic-Right BEDTIME 03/09/23 05/09/23 Previous Rx's Medication Instructions Recorded walker #1 ea 03/20/22 blood-glucose meter (FreeStyle #1 ea 09/13/22 Lite Meter kit) blood sugar diagnostic (FreeStyle #100 ea 10/30/22 Lite Strips) lancets 28 gauge (FreeStyle #100 ea 10/30/22 Lancets) Anoro Ellipta 62.5 mcg-25 1 ea PO DAILY #60 ea 02/12/23 mcg/actuation powder for inhalation (umeclidinium-vilanterol) docusate sodium 100 mg capsule 100 mg PO BID 90 days #180 caps 03/13/23 tamsulosin 0.4 mg capsule 0.4 mg PO DAILY 30 days #30 caps 03/19/23 bumetanide 0.5 mg tablet 0.5 mg PO DAILY #30 tabs 03/21/23 ipratropium 0.5 mg-albuterol 3 mg 3 ml inhalation QID PRN for 04/06/23 (2.5 mg base)/3 mL nebulization dyspnea #180 mL soln carvedilol 6.25 mg tablet 6.25 mg PO BID #60 tabs 04/17/23 erythromycin 5 mg/gram (0.5 %) eye 0.5 inch ophthalmic (eye) QID #50 05/06/23 ointment grams oseltamivir 75 mg capsule (Tamiflu) 75 mg PO BID 5 days #10 caps 05/09/23 Allergies Allergy/AdvReac Type Severity Reaction Status Date / Time Penicillins [PENICILLINS] Allergy Intermediate PASSED Verified 05/11/23 08:57 OUT trazodone Allergy Intermediate tremors Verified 05/11/23 08:57 brimonidine [From Alphagan P] Allergy Unknown Verified 05/11/23 08:57 diphenhydramine Allergy Unknown Verified 05/11/23 08:57 [From Benadryl] Review of Systems Review of Systems: Positive shortness of breath positive coughing congestion upper respiratory symptoms Yes all other systems are reviewed and are negative [facility] Past Medical History Attestation statement: The following information was validated with the patient. Medical History Paroxysmal atrial fibrillation Congestive heart failure Bronchiectasis Acute and chronic respiratory failure BPH loc w urin obs/LUTS Urinary retention History of COVID-19 Chronic anticoagulation History of pneumothorax Diabetes Supplemental oxygen dependent COPD (chronic obstructive pulmonary disease) Kidney stone on left side Hearing loss NICM (nonischemic cardiomyopathy) JESSA (mycobacterium avium-intracellulare) Bronchiectasis Glaucoma Pure hypercholesterolemia GERD (gastroesophageal reflux disease) History of MAC infection Essential hypertension Surgical History History of transurethral resection of bladder tumor (TURBT) History of cataract surgery History of left inguinal hernia repair History of bronchoscopy History of colonoscopy History of lumbar surgery History of cystoscopy Family History Family History Father No problems noted. Mother Medical history unknown Sister Diabetes Daughter In good health Son In good health Brother No problems noted. Social History Social History Household Members: None Housing: Apartment Are you a primary healthcare architect to a significant other at home: No Do you presently have visiting nurse or other home services: Yes (ON CALL PHARMACY TECHNICIAN) Alcohol intake: former Comment: pt refusing bed alarm for moderate fall risk Patient Tobacco Use Status: Former Tobacco user Quit Date: 10 years ago Tobacco use type: Cigarette e-Cigarette/Vaping Use: Former Use Second Hand Smoke Exposure: No Advance Directives: Yes Advance Directives on File: Yes Advance Directives Date on File: 02/03/22 service: No Current occupational status: retired Cognitive needs: No Hearing needs: Yes Vision needs: Yes Physical Exam Vital Signs: Vital Signs: Last Vital Signs Temp 98.8 F 05/11/23 08:49 Pulse 98 05/11/23 08:49 Resp 30 H 05/11/23 09:12 BP 98/52 L 05/11/23 08:49 Pulse Ox 97 05/11/23 08:49 O2 Del Method Non-Rebreather Ma sk 05/11/23 08:49 Oxygen Flow Rate 10 05/11/23 08:49 BMI result Body Mass Index 22.1 Appearance: Alert. Oriented X3. No acute distress. Eyes: Pupils equal, round and reactive to light. ENT: Pharynx normal. Neck: Normal inspection. Neck supple. No lymph nodes noted. No crepitus CVS: Normal heart rate and rhythm. Pulses normal. Normal S1 and S2 Respiratory: Diminished breath sounds bilaterally increased work of breathing Abdomen: Soft and nontender. No rigidity. No distention. good BS x4 Skin: Skin warm and dry. Normal skin color. Normal skin turgor. Extremities: No lower extremity edema. Neurovascular intact to all extremities. No Lacerations. No Rash Neuro: Oriented X 3. No motor deficit. No sensory deficit. Moving all extermities. No slurred speech Medications Administered Discontinued Medications Generic Name Dose Route Start Last Admin Trade Name Freq PRN Reason Stop Dose Admin Albuterol Sulfate 2.5 mg 05/11/23 09:13 05/11/23 09:41 Albuterol Sulfate (0.083%) 2.5 Mg/3 Ml Vial.Neb INHALE 05/11/23 09:14 2.5 mg ONCE ONE Administration Cefepime HCl 1 gm/ Sodium 50 mls @ 100 mls/hr 05/11/23 09:29 05/11/23 10:45 Chloride IV 05/11/23 09:58 Infused ONCE ONE Infusion Methylprednisolone Sodium Succinate 125 mg 05/11/23 09:13 05/11/23 09:22 Methylprednisolone Sod Succ 125 Mg/2 Ml Vial IVPUSH 05/11/23 09:14 125 mg ONCE ONE Administration Medical Decision Making Medical Decision Making [facility] Narrative: Patient been sick for the last 2 weeks baseline is on 3 L of oxygen at home. Just got discharged on April 23. Was seen again a week later for influenza. Now is getting more short of breath again over the last 2 3 days. When patient exert himself the symptoms seems to get worse. Positive coughing upper respiratory symptoms. Positive generalized malaise. Patient's troponin was normal. White count elevated at 17. Consistent with diagnosis of influenza and being on steroid patient's ABG showed a pH of 7.42 with a pCO2 of 39 PO2 78 there is no gross CO2 retention. Patient's electrolyte consistent with diabetes elevated glucose of 200. Patient's BNP is 39 there is no overt congestive heart failure. Influenza a came back positive which is known. Patient more short of breath than usual unable to help himself. Hypoxic when he ambulates. Will admit for further evaluation. Patient's chest x-ray showed bilateral infiltrate which is very similar to previous x-rays. Differential Diagnosis Differential Diagnoses: The differential diagnosis associated with the presentation includes COPD, Admission/Observation Consideration of admission/observation: Escalation of care including admission/observation considered Consult Healthcare Provider Management of the patient was discussed with: Hospitalist Lab Data [facility] Lab Attestation statement: I reviewed the patient's lab results. 05/11/23 09:48 05/11/23 09:48 Labs: Lab Results 05/11/23 05/11/23 05/11/23 Range/Units 09:23 09:47 09:48 WBC 16.9 H (4.8-10.8) X10*3/uL RBC 4.05 L (4.60-5.80) X10*6/uL Hgb 9.1 L (14.0-18.0) g/dl Hct 29.6 L (42.0-52.0) % MCV 73.1 L (80.0-98.0) fL MCH 22.5 L (27.0-33.0) pg MCHC 30.7 L (31.0-36.0) g/dl RDW 16.9 H (11.0-16.0) % Plt Count 247 (160-400) X10*3/uL MPV 10.5 (9.4-12.4) fL Immature Gran % (Auto) 0.7 H (0.0-0.4) % Neut % (Auto) 86.3 H (45-73) % Lymph % (Auto) 2.7 L (20-40) % Rapides % (Auto) 10.1 (2-11) % Eos % (Auto) 0.1 (0-4) % Baso % (Auto) 0.1 (0-2) % Lymph # (Auto) 0.5 L (1.2-4.9) X10*3/uL [place] # (Auto) 1.7 H (0.1-1.2) X10*3/uL Eos # (Auto) 0.0 (0.0-0.4) X10*3/uL Baso # (Auto) 0.0 (0.0-0.2) X10*3/uL Abs Immat Gran (auto) 0.11 H (0.00-0.03) X10*3/uL Absolute Neuts (auto) 14.6 H (2.0-8.3) x10*3/uL Absolute Nucleated RBC 0.000 (0.0-0.012) X10*3/uL Nucleated RBC % (auto) 0.0 (0.0-0.2) /100WBC Smear Tech's Comments VERIFIED O2 Saturation 95.0 % ABG pH at Pt Temp 7.42 (7.35-7.45) ABG pCO2 at Pt Temp 39 (32-45) mmHg ABG pO2 at Pt Temp 78 L (83-108) mmHg ABG HCO3 26 (22-26) mmol/L ABG Base Excess (Actual) 1.9 mmol/L Sodium 135 (135-145) mmol/L Potassium 4.3 (3.3-5.1) mmol/L Chloride 100 (96-108) mmol/L Carbon Dioxide 26 (22-29) mmol/L Anion Gap 13 (12-20) BUN 15 (9-16) mg/dL Creatinine 0.82 (0.5-1.4) mg/dL Estim Creat Clear Calc 61.2 Estimated GFR > 60 Random Glucose 226 H (60-115) mg/dL Lactic Acid 1.3 (0.5-2.0) mmol/L Calcium 8.5 (8.4-10.2) mg/dL Total Bilirubin 0.5 (0.0-1.0) mg/dL Direct Bilirubin 0.2 (0.0-0.5) mg/dL AST 11 (5-37) U/L ALT 20 (0-40) U/L Alkaline Phosphatase 74 (39-117) U/L Troponin I High Sens 2.8 (<3.5-35.0) ng/L B-Natriuretic Peptide 39 (<100) pg/mL Total Protein 6.8 (6.5-8.0) g/dL Albumin 2.8 L (3.5-5.0) g/dL Influenza Type A (PCR) POSITIVE A (Negative) Influenza Type B (PCR) NEGATIVE (Negative) RSV RNA Qual (PCR) NEGATIVE (Negative) SARS-CoV-2 RNA (RT-PCR) NEGATIVE (Negative) Independent Interpretation I performed an independent interpretation of an: EKG (Sinus heart rate is 80 SC QRS QTC within normal limits there is T-wave inversion over the inferior leads which are old.) and Plain X-Ray (Bilateral infiltrates noted) Radiology Impression Discussion of test interpretation with radiology: I have reviewed the radiologist's reading. External Record Review External record reviewed: Inpatient record Chronic Conditions Patient?s care impacted by: Diabetes Critical Care Time Critical Care Time Critical Care Time: Yes Total Critical Care Time: 40 Attestation: I have personally provided 40 minutes of critical care time exclusive of time spent on separately billable procedures. ?Time includes review of lab data, radiology results, discussion with consultants, and monitoring for potential decompensation. ?Interventions were performed as documented above Discharge Plan Discharge Clinical Impression: Bronchiectasis Patient Disposition: Admitted As Inpatient Prescriptions: No Action (DME) walker Misc See Rx Instructions .Route Qty: 1 0RF Patient Comments: Pt states doesnot use Rx Instructions: with seat and wheels (DME) blood-glucose meter [FreeStyle Lite Meter] Kit See Rx Instructions .Route Qty: 1 0RF Rx Instructions: test once daily Anoro Ellipta 62.5-25 mcg/actuation blister with device 1 ea PO DAILY Qty: 60 6RF docusate sodium 100 mg capsule 100 mg PO BID 90 Days Qty: 180 1RF tamsulosin 0.4 mg capsule 0.4 mg PO DAILY 30 Days Qty: 30 2RF ipratropium-albuterol 0.5 mg-3 mg(2.5 mg base)/3 mL solution for nebulization 3 ml inhalation QID PRN (Reason: for dyspnea) Qty: 180 0RF carvedilol 6.25 mg tablet 6.25 mg PO BID Qty: 60 5RF bumetanide 0.5 mg tablet 0.5 mg PO DAILY Qty: 30 0RF erythromycin 5 mg/gram (0.5 %) ointment 0.5 inch ophthalmic (eye) QID Qty: 50 0RF Eliquis 5 mg tablet 5 mg PO BID Entresto 24-26 mg tablet 1 tab PO BID finasteride 5 mg tablet 5 mg PO DAILY lovastatin 10 mg tablet 10 mg PO DAILY metformin 500 mg tablet extended release 24 hr 500 mg PO DAILY omeprazole 40 mg capsule,delayed release(DR/EC) 40 mg PO DAILY travoprost 0.004 % drops 1 drp ophthalmic-Right BEDTIME albuterol sulfate [Ventolin HFA] 90 mcg/actuation HFA aerosol inhaler 2 puff INHALATION Q4H PRN (Reason: wheezing) (DME) FreeStyle Lite Strips Strip See Rx Instructions .Route Qty: 100 5RF Rx Instructions: test once daily (DME) lancets [FreeStyle Lancets] 28 gauge misc See Rx Instructions .Route Qty: 100 6RF Rx Instructions: Use 1 lancet once a day oseltamivir [Tamiflu] 75 mg capsule 75 mg PO BID 5 Days Qty: 10 0RF
[2023-05-11 09:31] LABS: ABG Base Excess 1.9 mmol/L; ABG HCO3 26 mmol/L (22-26); ABG pCO2 39 mmHg (32-45); ABG pH 7.42 (7.35-7.45); ABG pO2 78 mmHg (83-108)
[2023-05-11 09:33] VITALS: O2SAT 97
[2023-05-11] MEDS: Albuterol Sulfate (0.083%) 2.5 MG/3 ML VIAL.NEB INHALE (09:41)
[2023-05-11] MEDS: cefEPime HCl 1 GM in 0.9 % Sodium Chloride 50 ML IV (09:58)
[2023-05-11 10:10] LABS: Basophils Percent Auto 0.1 % (0-2); Eosinophils Percent Auto 0.1 % (0-4); Hematocrit 29.6 % (42.0-52.0); Hemoglobin 9.1 g/dl (14.0-18.0); Imm Gran Abs Auto 0.11 X10*3/uL (0.00-0.03); Imm Gran Pct Auto 0.7 % (0.0-0.4); Lymphocytes Absolute Auto 0.5 X10*3/uL (1.2-4.9); Lymphocytes Percent Auto 2.7 % (20-40); MANUAL DIFF FLAG SCAN; Mean Corpuscular HGB Conc 30.7 g/dl (31.0-36.0); Mean Corpuscular Hemoglobin 22.5 pg (27.0-33.0); Mean Corpuscular Volume 73.1 fL (80.0-98.0); Mean Platelet Volume 10.5 fL (9.4-12.4); Monocytes Absolute Auto 1.7 X10*3/uL (0.1-1.2); Monocytes Percent Auto 10.1 % (2-11); Neutrophils Absolute Auto 14.6 x10*3/uL (2.0-8.3); Neutrophils Percent Auto 86.3 % (45-73); Platelet Count 247 X10*3/uL (160-400); Red Blood Count 4.05 X10*6/uL (4.60-5.80); Red Cell Distribution Width 16.9 % (11.0-16.0); SCAN SMEAR FLAG 1; White Blood Count 16.9 X10*3/uL (4.8-10.8)
[2023-05-11 10:30] LABS: Lactic Acid 1.3 mmol/L (0.5-2.0)
[2023-05-11 10:32] LABS: Alanine Aminotransferase 20 U/L (0-40); Albumin Level 2.8 g/dL (3.5-5.0); Alkaline Phosphatase 74 U/L (39-117); Anion Gap 13 (12-20); Aspartate Amino Transferase 11 U/L (5-37); Bilirubin Direct 0.2 mg/dL (0.0-0.5); Bilirubin Total 0.5 mg/dL (0.0-1.0); Blood Urea Nitrogen 15 mg/dL (9-16); Calcium 8.5 mg/dL (8.4-10.2); Carbon Dioxide 26 mmol/L (22-29); Chloride 100 mmol/L (96-108); Creatinine Clr Calc Pharmacy 61.2; Estimated Glomerular Filt Rate > 60; Glucose Random 226 mg/dL (60-115); Potassium 4.3 mmol/L (3.3-5.1); Sodium 135 mmol/L (135-145); Total Protein 6.8 g/dL (6.5-8.0)
[2023-05-11 10:35] LABS: B Type Natriuretic Peptide 39 pg/mL (<100)
[2023-05-11 10:40] LABS: Troponin-I High Sensitivity 2.8 ng/L (<3.5-35.0)
[2023-05-11 11:01] LABS: SLIDE REVIEW VERIFIED
[2023-05-11 11:02] LABS: Influenza A PCR POSITIVE (Negative); Influenza B PCR NEGATIVE (Negative); Resp Syncy Virus RNA Qual PCR NEGATIVE (Negative); SARS COV2 PCR INHOUSE NEGATIVE (Negative)
[2023-05-11 11:25] LABS: ABG Refer to POC result
[2023-05-11 11:47] VITALS: BP 84/45; PULSE 84; RESP 24; TEMP 36.6; O2SAT 97
--- NOTE | 2023-05-11 13:07 | P.HPHOSP_ITS ---
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 Patient has a complex PMH that has included multiple recent admissions/presentations to the hospital for respiratory concerns, including 03/08-03/10/2023 when he was treated for COPD exacerbation, 03/18-03/22/2023 when he was treated COVID infection, 03/30-03/31/2023 when he was treated pneumonia, 04/27-05/02 at [facility] where he was treated with meropenem for ESBL pneumonia, and then seen in [facility] on 05/06/2023 where he tested positive for influenza A. Patient was prescribed Tamiflu, however does unclear how many doses he has taken. Patient says he has seen no improvement since going home, complains that he overall ?feels terrible?. Reports he lives alone with little to no help for administration of medications or assisting with ADLs. Unclear how compliant patient is with his home medications or inhalers. Patient also complains of pain and inability to see in his left eye. Contacted [facility] who revealed patient has had 2 recent cataract surgeries in his left eye, both of which have been complicated and have been unsuccessful and replacing his lens. Patient was scheduled for follow-up appointment at ophthalmology office today. Patient denies chest pain/pressure, palpitations. No fever, chills, nausea, vomiting, abdominal pain. Denies orthopnea. No lower leg edema. Of note, during patient's stay at [facility] sputum cultures grew E coli and stenotrophomanoas maltophilia. Completed 7-day IV meropenem course on 05/04/2023 and Bactrim double strength on 05/10/2023. Was discharged with Afflo Vest percussion vest which pt reports he has been wearing at home. In the ED pt was tachypneic up to 30 with soft BP as low as 84/45, and desatting into the 70s on RA.. Labs were significant for leukocytosis of 16.9, H&H 9.1/29.6, recent glucose 280, and albumin 2.8. Patient continued testing positive for influenza type A. CXR showed redemonstration of multifocal airspace opacities bilaterally with cystic formation of the right upper lung field on a background of chronic emphysematous changes. EKG demonstrated normal sinus rhythm with RBBB and no significant ST elevations or depressions, similar to previous. Pt was treated with cefepime, albuterol, and Solu-Medrol. Pt will be admitted to the hospital for treatment and further evaluation of acute on chronic hypoxic respiratory failure in the setting of recurrent pneumonia and COPD exacerbation in a patient with hx of ESBL pneumonia. Review of Systems 2 Review of Systems: SOB, WRIGHT Productive cough Generalized weakness, fatigue Left eye pain and reduction in vision Denies fever, chills, nausea, vomiting, abdominal pain No chest pain/pressure, palpitations Denies orthopnea No lower leg edema PMFSH Medical History Paroxysmal atrial fibrillation Congestive heart failure Bronchiectasis Acute and chronic respiratory failure BPH loc w urin obs/LUTS Urinary retention History of COVID-19 Chronic anticoagulation History of pneumothorax Diabetes Supplemental oxygen dependent COPD (chronic obstructive pulmonary disease) Kidney stone on left side Hearing loss NICM (nonischemic cardiomyopathy) JESSA (mycobacterium avium-intracellulare) Bronchiectasis Glaucoma Pure hypercholesterolemia GERD (gastroesophageal reflux disease) History of MAC infection Essential hypertension Family History Father No problems noted. Mother Medical history unknown Sister Diabetes Daughter In good health Son In good health Brother No problems noted. 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) Alcohol intake: former Comment: pt refusing bed alarm for moderate fall risk Patient Tobacco Use Status: Former Tobacco user Quit Date: 10 years ago Tobacco use type: Cigarette e-Cigarette/Vaping Use: Former Use Second Hand Smoke Exposure: No Advance Directives: Yes Advance Directives on File: Yes Advance Directives Date on File: 02/03/22 service: No Current occupational status: retired Cognitive needs: No Hearing needs: Yes Vision needs: Yes Meds Allergies Allergy/AdvReac Type Severity Reaction Status Date / Time Penicillins [PENICILLINS] Allergy Intermediate PASSED Verified 05/11/23 08:57 OUT trazodone Allergy Intermediate tremors Verified 05/11/23 08:57 brimonidine [From Alphagan P] Allergy Unknown Verified 05/11/23 08:57 diphenhydramine Allergy Unknown Verified 05/11/23 08:57 [From Benadryl] Home Medications Medication Instructions Recorded Confirmed Last Taken Type albuterol sulfate 90 mcg/actuation 2 puff inhalation Q4H PRN wheezing 03/09/23 05/11/23 Unknown History aerosol inhaler (Ventolin HFA) apixaban 5 mg tablet (Eliquis) 5 mg PO BID 03/09/23 05/11/23 03/08/23 History finasteride 5 mg tablet 5 mg PO DAILY 03/09/23 05/11/23 03/08/23 History lovastatin 10 mg tablet 10 mg PO DAILY 03/09/23 05/11/23 03/08/23 History metformin 500 mg tablet,extended 500 mg PO DAILY 03/09/23 05/11/23 03/08/23 History release 24 hr omeprazole 40 mg capsule,delayed 40 mg PO DAILY 03/09/23 05/11/23 03/08/23 History release sacubitril 24 mg-valsartan 26 mg 1 tab PO BID 03/09/23 05/11/23 03/08/23 History tablet (Entresto) travoprost 0.004 % eye drops 1 drp ophthalmic-Right BEDTIME 03/09/23 05/11/23 03/07/23 History bumetanide 1 mg tablet 1 mg PO DAILY 05/11/23 05/11/23 Unknown History Physical Exam 2 Vital Signs and Narrative: Vital Signs: Last Vital Signs Temp 97.8 F 05/11/23 11:47 Pulse 84 05/11/23 11:47 Resp 24 H 05/11/23 11:47 BP 84/45 L 05/11/23 11:47 Pulse Ox 97 05/11/23 11:47 O2 Del Method Nasal Cannula 05/11/23 11:47 O2 Flow Rate 3 05/11/23 11:47 Oxygen Flow Rate 10 05/11/23 08:49 BMI result Body Mass Index 22.1 Constitutional: Alert, looks uncomfortable, in no acute distress. Mental Status: Oriented to person, place and time. Eyes: Pupils are equal, round, and reactive to light. Left eye with white substance to lateral side of iris. As pictured below. Ear, Nose, and Throat: Oropharynx clear, mucous membranes moist. Ears and nose without deformities. Trachea midline. Respiratory: Diffuse bilateral chrackels. Cardiovascular: S1, S2 regular. No murmurs, rubs, or gallops. Gastrointestinal: Abdomen soft, non-tender, non-distended. Normal bowel sounds. Neurologic: Cranial nerves II-XII are grossly intact bilaterally. No focal neurological deficits. Moves all extremities spontaneously. Skin: Warm, dry. Musculoskeletal: No cyanosis or clubbing. Extremities: No edema. Psychiatric: Normal mood and affect. Results Labs 05/12/23 04:50 05/12/23 04:50 Labs: Laboratory Results - last 24 hr 05/11/23 05/11/23 05/11/23 09:23 09:47 09:48 MCV 73.1 L MCH 22.5 L MCHC 30.7 L RDW 16.9 H Plt Count 247 MPV 10.5 Immature Gran % (Auto) 0.7 H Neut % (Auto) 86.3 H Lymph % (Auto) 2.7 L Bay % (Auto) 10.1 Eos % (Auto) 0.1 Baso % (Auto) 0.1 Lymph # (Auto) 0.5 L Bay # (Auto) 1.7 H Eos # (Auto) 0.0 Baso # (Auto) 0.0 Abs Immat Gran (auto) 0.11 H Absolute Neuts (auto) 14.6 H Absolute Nucleated RBC 0.000 Nucleated RBC % (auto) 0.0 Smear Tech's Comments VERIFIED O2 Saturation 95.0 ABG pH at Pt Temp 7.42 ABG pCO2 at Pt Temp 39 ABG pO2 at Pt Temp 78 L ABG HCO3 26 ABG Base Excess (Actual) 1.9 Anion Gap 13 Estim Creat Clear Calc 61.2 Estimated GFR > 60 Random Glucose 226 H Lactic Acid 1.3 Calcium 8.5 Total Bilirubin 0.5 Direct Bilirubin 0.2 AST 11 ALT 20 Alkaline Phosphatase 74 Troponin I High Sens 2.8 B-Natriuretic Peptide 39 Total Protein 6.8 Albumin 2.8 L Influenza Type A (PCR) POSITIVE A Influenza Type B (PCR) NEGATIVE RSV RNA Qual (PCR) NEGATIVE SARS-CoV-2 RNA (RT-PCR) NEGATIVE Imaging Radiologist's Impressions: Impressions Chest X-Ray 05/11/23 09:31 IMPRESSION: Redemonstration of multifocal airspace opacities bilaterally with cystic formation of the right upper lung field on a background of chronic emphysematous changes. 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 Pt will be admitted to the hospital for treatment and further evaluation of acute on chronic hypoxic respiratory failure in the setting of recurrent pneumonia and COPD exacerbation in a patient with hx of ESBL pneumonia. Acute on chronic hypoxic respiratory failure in the setting likely recurrent pneumonia and COPD exacerbation Patient desatting into 70s on RA, chronically on 2 L home O2 Patient has history of ESBL pneumonia in December 2022 Multiple viral infections in the past 2 months, including COVID in March and flu 5 days 05/06 Patient meets sepsis criteria: Tachypnea, leukocytosis; lactic acid WNL at 1.3 Patient started on broad-spectrum antibiotics in the ED Treated with 7-day course of meropenem from 03/27-04/03, then 7-days of double- strength Bactrim from 04/03-04/09 Will consult ID for antibiotic coverage Will place on maintenance fluids Will treat with Solu-Medrol, DuoNebs Continue home inhalers Will check procalcitonin Titrate supplemental O2 >90, wean as tolerated Monitor respiratory status Influenza infection Patient tested positive for influenza type a 06/04/2023 Was discharged from ED on Tamiflu Prescription was filled on 05/09/2023 Unclear if patient has been compliant with Tamiflu or has only taken 1-2 doses Will treat with Tamiflu 75 mg x5 days Left eye pain/reduced vision/white growth Contact [facility] who report pt had two recent complicated, unsuccessful cataract surgeries Has so far failed at replacing patient's left eye lens White substance in eye is a Kenalog injection to reduce edema Per ophthalmology recommendations, can use erythromycin ointment and systolic analgesics for pain management Patient should follow-up outpatient with Ophthalmology Nonischemic cardiomyopathy Continue carvedilol Hold Entresto d/t soft BP, resume as warranted HFrEF Hold bumetanide d/t soft BP Resume as warranted Paroxysmal AFib Continue Eliquis Mmf-hdvbmbu-hefsbhukd diabetes type [address] on sliding scale insulin Diabetic diet Full Code Attending:?Dr. Bourgeois DVT Prophylaxis: On Eliquis Pt will require a hospitalization of at least two nights for treatment of?acute chronic hypoxic respiratory failure in the setting of likely recurrent pneumonia and COPD exacerbation in a patient with a history ESBL pneumonia. Given patient's significant comorbidities and multiple hospitalizations in the past 2 months, the patient will require hospitalization for treatment with IV antibiotics, IV steroids, breathing treatments, as well as specialist consultation and close monitoring of respiratory status and labs. Quality Stroke Does the patient have a stroke diagnosis?: No VTE Prior VTE?: No VTE Risk Level:: Medical - moderate - high VTE Device Contraindication: Treatment Not Indicated VTE Drug Contraindication: N/A - Med Ordered
--- NOTE | 2023-05-11 14:00 | PHA.MEDREC ---
Pharmacy Consult ? Medication Reconciliation Pharmacy has completed the medication reconciliation.Med rec complete, but based on pharmacy claim history only.
[2023-05-11 16:02] LABS: Procalcitonin 0.22 ng/mL
[2023-05-11 17:56] LABS: Glucose, Whole Blood 169 mg/dL (60-115)
[2023-05-11] MEDS: 0.9 % Sodium Chloride Flush 3 ML SYRINGE IVFLUSH (18:01)
[2023-05-11] MEDS: Oseltamivir Phosphate 75 MG CAPSULE PO ×2 (18:02→22:25)
[2023-05-11] MEDS: 0.9 % Sodium Chloride 1,000 ML 100 ML IVCONT (18:02)
[2023-05-11] MEDS: Erythromycin Base 0.5% Oph Oin 1 GM TUBE 1.27 CM EYE-BOTH ×2 (18:02→21:27)
[2023-05-11] MEDS: Insulin Lispro 100 UNIT/ML 3 ML VIAL SUBCUT ×2 (18:03→21:27)
--- NOTE | 2023-05-11 18:37 | MHC.EDTECH ---
Patient given dinner tray
[2023-05-11 19:23] VITALS: BP 105/53; PULSE 89; RESP 20; TEMP 36.4; O2SAT 97
[2023-05-11 19:37] LABS: Appearance Urine Cloudy; Color Urine Yellow; Glucose Urine UA Negative (Negative); Leukocyte Esterase Urine Small (1+) (Negative); Nitrite Urine Negative (Negative); PH 5.5 (5.0-9.0); Specific Gravity - Urine 1.025 (1.005-1.025); UMIC TRIGGER UACC YES; Urine Blood Small (1+) (Negative); Urine Ketones Trace mg/dL (Negative); Urine Protein 30 (1+) mg/dL (Neg-Trace)
[2023-05-11 19:43] LABS: Bacteria Urine Trace (None Seen); RBC Urine >20 /HPF (0-2); UACC Culture Trigger YES
[2023-05-11 20:53] LABS: Glucose, Whole Blood 210 mg/dL (60-115)
[2023-05-11] MEDS: Docusate Sodium 100 MG CAPSULE PO (21:27)
[2023-05-11] MEDS: Apixaban 5 MG TABLET PO (21:28)
[2023-05-11] MEDS: carvediloL 6.25 MG TABLET PO (21:28)
[2023-05-11] MEDS: methylPREDNISolone Sod Succ 40 MG/ML VIAL IVPUSH (22:24)
--- NOTE | 2023-05-11 23:43 | P.CNID_ITS ---
History of Present Illness Data of Consult Service Date: 05/11/23 Requesting physician: Filiberto Cruz Primary Care Provider: Olga Calzada MD HPI Reason for consult: weakness and fatigue He comes in with weakness and fatigue since leaving [facility]. He was there 05/07-05/02. He tested positive for flu A six days ago. He has ESBL E coli in sputum since at least last year when I saw him. He has JESSA and been treated extensively for that. His CXR always shows extensive emphysema,blebs and honeycombing with chronic bronchiectasis. He received one week Ertapenem there and then a week Bactrim. Review of Systems 2 Review of Systems: Yes all other systems are reviewed and are negative Constitutional: Constitutional: Reports daytime sleepiness and Reports fatigue Endocrine: Endocrine: Reports fatigue PMFSH Past Medical History Medical History Paroxysmal atrial fibrillation Congestive heart failure Bronchiectasis Acute and chronic respiratory failure BPH loc w urin obs/LUTS Urinary retention History of COVID-19 Chronic anticoagulation History of pneumothorax Diabetes Supplemental oxygen dependent COPD (chronic obstructive pulmonary disease) Kidney stone on left side Hearing loss NICM (nonischemic cardiomyopathy) JESSA (mycobacterium avium-intracellulare) Bronchiectasis Glaucoma Pure hypercholesterolemia GERD (gastroesophageal reflux disease) History of MAC infection Essential hypertension Family History Family History Father No problems noted. Mother Medical history unknown Sister Diabetes Daughter In good health Son In good health Brother No problems noted. 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) Alcohol intake: former Comment: pt refusing bed alarm for moderate fall risk Patient Tobacco Use Status: Former Tobacco user Quit Date: 10 years ago Tobacco use type: Cigarette e-Cigarette/Vaping Use: Former Use Second Hand Smoke Exposure: No Advance Directives: Yes Advance Directives on File: Yes Advance Directives Date on File: 02/03/22 service: No Current occupational status: retired Cognitive needs: No Hearing needs: Yes Vision needs: Yes Meds Allergies Allergy/AdvReac Type Severity Reaction Status Date / Time Penicillins [PENICILLINS] Allergy Intermediate PASSED Verified 05/11/23 08:57 OUT trazodone Allergy Intermediate tremors Verified 05/11/23 08:57 brimonidine [From Alphagan P] Allergy Unknown Verified 05/11/23 08:57 diphenhydramine Allergy Unknown Verified 05/11/23 08:57 [From Benadryl] Active Medications: Current Medications Acetaminophen (Acetaminophen 325 Mg Tablet) 650 mg PO Q6H PRN PRN Reason: Pain, Mild (Pain Scale 1-3) Albuterol Sulfate (Albuterol Sulfate 90 Mcg 8 Gm Inhaler) 2 puff INHALE Q4H PRN PRN Reason: wheezing Albuterol/Ipratropium (Albuterol/Iprat 2.5/0.5mg 3 Ml Ampul.Neb) 3 ml INHALE QID PRN PRN Reason: for dyspnea Apixaban (Apixaban 5 Mg Tablet) 5 mg PO BID [facility] Last Admin: 05/11/23 21:28 Dose: 5 mg Carvedilol (Carvedilol 6.25 Mg Tablet) 6.25 mg PO BID [facility]; Protocol Last Admin: 05/11/23 21:28 Dose: 6.25 mg Dextrose (Dextrose 50 % 25 Gm/50 Ml Syringe) 25 gm IVPUSH Q15M PRN; Protocol PRN Reason: per Hypoglycemia Standing Ord. Docusate Sodium (Docusate Sodium 100 Mg Capsule) 100 mg PO BID [facility] Last Admin: 05/11/23 21:27 Dose: 100 mg Erythromycin (Erythromycin Base 0.5% Oph Oin 1 Gm Tube) 1.27 cm EYE-BOTH QID [facility] Last Admin: 05/11/23 21:27 Dose: 1.27 cm Glucose (Glucose Gel 15 Gm Gel..Gram.) 15 gm PO Q15M PRN; Protocol PRN Reason: per Hypoglycemia Standing Ord. Sodium Chloride (Ns) 1,000 mls @ 100 mls/hr IVCONT .Q10H [facility] Last Admin: 05/11/23 18:02 Dose: 100 mls/hr Insulin Human Lispro (Insulin Lispro 100 Unit/Ml 3 Ml Vial) 0 unit SUBCUT QIDACHS [facility]; Protocol Last Admin: 05/11/23 21:27 Dose: 4 unit Latanoprost (Latanoprost 0.005 % Ophth Thalia 2.5 Ml Drops) 1 drop EYE-RIGHT BEDTIME [facility] Last Admin: 05/11/23 21:29 Dose: Not Given Melatonin (Melatonin 3 Mg Tablet) 6 mg PO BEDTIME PRN PRN Reason: Insomnia Methylprednisolone Sodium Succinate (Methylprednisolone Sod Succ 40 Mg/Ml Vial) 40 mg IVPUSH Q12H [facility] Last Admin: 05/11/23 22:24 Dose: 40 mg Omeprazole (Omeprazole 40 Mg Capsule.Dr) 40 mg PO DAILY@0630 [facility] Ondansetron HCl (Ondansetron Hcl 4 Mg/2 Ml Vial) 4 mg IVPUSH Q8H PRN PRN Reason: Nausea and Vomiting Oseltamivir Phosphate (Oseltamivir Phosphate 75 Mg Capsule) 75 mg PO BID [facility] Last Admin: 05/11/23 22:25 Dose: 75 mg Pravastatin Sodium (Pravastatin Sodium 10 Mg Tablet) 10 mg PO DAILY [facility] Sodium Chloride (0.9 % Sodium Chloride Flush 3 Ml Syringe) 3 ml IVFLUSH QSHIFT [facility] Last Admin: 05/11/23 18:01 Dose: 3 ml Home Medications Medication Instructions Recorded Confirmed Last Taken Type albuterol sulfate 90 mcg/actuation 2 puff inhalation Q4H PRN wheezing 03/09/23 05/11/23 Unknown History aerosol inhaler (Ventolin HFA) apixaban 5 mg tablet (Eliquis) 5 mg PO BID 03/09/23 05/11/23 03/08/23 History finasteride 5 mg tablet 5 mg PO DAILY 03/09/23 05/11/23 03/08/23 History lovastatin 10 mg tablet 10 mg PO DAILY 03/09/23 05/11/23 03/08/23 History metformin 500 mg tablet,extended 500 mg PO DAILY 03/09/23 05/11/23 03/08/23 History release 24 hr omeprazole 40 mg capsule,delayed 40 mg PO DAILY 03/09/23 05/11/23 03/08/23 History release sacubitril 24 mg-valsartan 26 mg 1 tab PO BID 03/09/23 05/11/23 03/08/23 History tablet (Entresto) travoprost 0.004 % eye drops 1 drp ophthalmic-Right BEDTIME 03/09/23 05/11/23 03/07/23 History bumetanide 1 mg tablet 1 mg PO DAILY 05/11/23 05/11/23 Unknown History Physical Exam 2 Vital Signs: Vital Signs: Last Vital Signs Temp 97.6 F 05/11/23 19:23 Pulse 89 05/11/23 19:23 Resp 20 05/11/23 19:23 BP 105/53 L 05/11/23 19:23 Pulse Ox 97 05/11/23 19:23 O2 Del Method Nasal Cannula 05/11/23 19:23 O2 Flow Rate 2 05/11/23 19:23 Oxygen Flow Rate 10 05/11/23 08:49 BMI result Body Mass Index 22.1 Const: General: cooperative HEENT: Head: Yes normal to inspection Face and sinus: Yes normal facial exam Mouth: Normal oral and palatal mucosa present Teeth and gingiva: d entition normal Eyes: General: appearance normal, both eyes and all related structures P upils: Equal, round and reactive pupils present Resp: Other: cough,looks chronically ill diminished breath sounds bases Cardio: Rate: regular rate Rhythm: regular rhythm GI: Palpation (GI): Soft to palpation and nontender : General: Yes no CVA tenderness Back/Spine/Pelvis: Back: no CVA tenderness Skin: General skin exam: no rashes or lesions noted Neuro: General: moves all extremities Cranial nerves: Yes Equal, round and reactive pupils present Extrem: General: Yes normal to inspection Psych: Appearance: grossly normal Results Labs 05/11/23 09:48 05/11/23 09:48 Labs: Short CBC 05/11/23 Range/Units 09:48 WBC 16.9 H (4.8-10.8) X10*3/uL Hgb 9.1 L (14.0-18.0) g/dl Hct 29.6 L (42.0-52.0) % Plt Count 247 (160-400) X10*3/uL BMP 05/11/23 09:48 Sodium 135 Potassium 4.3 Chloride 100 Carbon Dioxide 26 BUN 15 Creatinine 0.82 Calcium 8.5 Liver Function 05/11/23 Range/Units 09:48 Total Bilirubin 0.5 (0.0-1.0) mg/dL Direct Bilirubin 0.2 (0.0-0.5) mg/dL AST 11 (5-37) U/L ALT 20 (0-40) U/L Alkaline Phosphatase 74 (39-117) U/L Albumin 2.8 L (3.5-5.0) g/dL Urine 05/11/23 Range/Units 19:22 Urine Color Yellow Urine Appearance Cloudy Urine pH 5.5 (5.0-9.0) Ur Specific Echo 1.025 (1.005-1.025) Urine Protein 30 (1+) H (Neg-Trace) mg/dL Urine Glucose (UA) Negative (Negative) mg/dL Assessment and Plan (1) Acute and chronic respiratory failure with hypoxia: Status: Acute (2) Influenza A: Status: Acute (3) COPD (chronic obstructive pulmonary disease): Qualifiers: COPD type: COPD with acute exacerbation Qualified Code(s): J44.1 - Chronic obstructive pulmonary disease with (acute) exacerbation Status: Acute Plan He has failure to thrive and weakness. He has also flu A tested positive six days ago. He has no new sputum production or hemoptysis,no fever but some reactive leukocytosis and has been treated fully and appropriately for ESBL E coli sputum as well as JESSA. Procalcitonin at .22 is unremarkable. Patient also recently had flu A which likely worsened his COPD. Suggest No further ESBL or JESSA treatment at this time,treated. Stop flu A treatment (Tamiflu) tomorrow, 7 days since onset Po Doxycycline for seven days in case post flu MRSA and can check nares for this
[2023-05-12] VITALS (10 sets, daily range): BP systolic 92–154; BP diastolic 38–72; PULSE 66–101; RESP 16–20; TEMP 36.2–36.9; O2SAT 94–99
[2023-05-12] MEDS: Doxycycline Monohydrate 100 MG CAPSULE PO ×3 (00:09→21:26)
[2023-05-12 02:13] LABS: Glucose, Whole Blood 151 mg/dL (60-115)
[2023-05-12] MEDS: 0.9 % Sodium Chloride 1,000 ML 100 ML IVCONT ×2 (03:38→13:36)
--- NOTE | 2023-05-12 04:34 | PC.NURSE ---
Pt ambulated to the bathroom independently with tech at his side. Pt is A&Ox4, GCS 15, warm dry skin. No complaints at this time
[2023-05-12 05:21] LABS: Hemoglobin 8.6 g/dl (14.0-18.0); Mean Corpuscular HGB Conc 30.7 g/dl (31.0-36.0); Mean Corpuscular Hemoglobin 22.8 pg (27.0-33.0); Mean Corpuscular Volume 74.1 fL (80.0-98.0); Mean Platelet Volume 10.2 fL (9.4-12.4); Platelet Count 249 X10*3/uL (160-400); Red Blood Count 3.78 X10*6/uL (4.60-5.80); Red Cell Distribution Width 16.8 % (11.0-16.0)
[2023-05-12 05:35] LABS: Anion Gap 9 (12-20); Blood Urea Nitrogen 21 mg/dL (9-16); Calcium 8.6 mg/dL (8.4-10.2); Carbon Dioxide 26 mmol/L (22-29); Chloride 103 mmol/L (96-108); Estimated Glomerular Filt Rate > 60; Glucose Random 190 mg/dL (60-115); Potassium 3.8 mmol/L (3.3-5.1); Sodium 134 mmol/L (135-145)
[2023-05-12] MEDS: Omeprazole 40 MG CAPSULE.DR PO (05:37)
[2023-05-12 07:48] LABS: Glucose, Whole Blood 182 mg/dL (60-115)
[2023-05-12] MEDS: carvediloL 6.25 MG TABLET PO ×2 (08:20→21:26)
[2023-05-12] MEDS: Docusate Sodium 100 MG CAPSULE PO ×2 (08:20→21:26)
[2023-05-12] MEDS: Oseltamivir Phosphate 75 MG CAPSULE PO ×2 (08:20→21:26)
[2023-05-12] MEDS: Pravastatin Sodium 10 MG TABLET PO (08:20)
[2023-05-12] MEDS: Erythromycin Base 0.5% Oph Oin 1 GM TUBE 1.27 CM EYE-BOTH ×4 (08:21→21:30)
[2023-05-12] MEDS: 0.9 % Sodium Chloride Flush 3 ML SYRINGE IVFLUSH ×2 (08:21→21:26)
[2023-05-12] MEDS: Insulin Lispro 100 UNIT/ML 3 ML VIAL SUBCUT ×4 (08:21→21:27)
[2023-05-12] MEDS: Apixaban 5 MG TABLET PO ×2 (08:21→21:26)
--- NOTE | 2023-05-12 08:32 | PC.NURSE ---
this RN resumed care of pt at this time. vss and up to date aside from being hypotensive. IVF not administering properly d/t placement of IV and pt continuously bending arm to occlude access. new 20gIV placed in the right hand. patent/intact. IVF continues to infuse properly at this time. dr. goldstein made aware of pt's BP. pt denies pain. resting comfortably on 2L via NC at this time. no sob/wob noted. pt lying in supine position - no apparent distress. medications administered per provider order. pt waiting for bed assignment at this time. plan of care ongoing. call yin placed within reach.
[2023-05-12] MEDS: methylPREDNISolone Sod Succ 40 MG/ML VIAL IVPUSH ×2 (09:47→21:26)
--- NOTE | 2023-05-12 11:07 | PC.NURSE ---
vss and up to date at this time. pt remains slightly hypotensive but BP continues to increase at this time. pt remains on 2L via NC. no sob/wob noted but pt requesting PRN duoneb via RT. RT called/notified of pt's request. pt continues to rest in no apparent distress at this time. waiting for bed assignment. plan of care ongoing. call yin placed within reach.
--- NOTE | 2023-05-12 11:46 | PC.NURSE ---
report given to DEANNA Browning in overflow. RT bedside - pt receiving breathing treatment at this time. will transport pt to overflow when duoneb is finished.
[2023-05-12] MEDS: Albuterol/Iprat 2.5/0.5MG 3 ML AMPUL.NEB INHALE ×2 (11:47→19:54)
--- NOTE | 2023-05-12 12:35 | P.PNIM_ITS ---
Subjective Subjective Date of Service: 05/12/23 Interval History: f/u on sob, recent ESBL PNA treatment and recent flu he has no sob, no productive cough, no fever Physical Exam 2 Vital Signs: Vital Signs: Last Vital Signs Temp 97.9 F 05/12/23 11:05 Pulse 83 05/12/23 11:48 Resp 20 05/12/23 11:48 BP 116/59 L 05/12/23 11:05 Pulse Ox 97 05/12/23 11:05 O2 Del Method Room Air 05/12/23 11:05 O2 Flow Rate 2 05/12/23 08:30 Oxygen Flow Rate 10 05/11/23 08:49 BMI result Body Mass Index 22.1 Const: Other: General: AO X 3, no acute distress Resp: CTA bilateral CVS: S1,S2,RRR GI: +BS, NT, no distention Skin: No rash Neuro: motor grossly intact Psych: appropriate affect Objective Data Active Medications Acetaminophen (Acetaminophen 325 Mg Tablet) 650 mg PO Q6H PRN PRN Reason: Pain, Mild (Pain Scale 1-3) Albuterol Sulfate (Albuterol Sulfate 90 Mcg 8 Gm Inhaler) 2 puff INHALE Q4H PRN PRN Reason: wheezing Albuterol/Ipratropium (Albuterol/Iprat 2.5/0.5mg 3 Ml Ampul.Neb) 3 ml INHALE QID PRN PRN Reason: for dyspnea Last Admin: 05/12/23 11:47 Dose: 3 ml Documented By: TAYLOR Apixaban (Apixaban 5 Mg Tablet) 5 mg PO BID [facility] Last Admin: 05/12/23 08:21 Dose: 5 mg Documented By: DONAL Carvedilol (Carvedilol 6.25 Mg Tablet) 6.25 mg PO BID [facility]; Protocol Last Admin: 05/12/23 08:20 Dose: 6.25 mg Documented By: DONAL Dextrose (Dextrose 50 % 25 Gm/50 Ml Syringe) 25 gm IVPUSH Q15M PRN; Protocol PRN Reason: per Hypoglycemia Standing Ord. Docusate Sodium (Docusate Sodium 100 Mg Capsule) 100 mg PO BID [facility] Last Admin: 05/12/23 08:20 Dose: 100 mg Documented By: DONAL Doxycycline Monohydrate (Doxycycline Monohydrate 100 Mg Capsule) 100 mg PO BID [facility] Last Admin: 05/12/23 08:20 Dose: 100 mg Documented By: DONAL Erythromycin (Erythromycin Base 0.5% Oph Oin 1 Gm Tube) 1.27 cm EYE-BOTH QID [facility] Last Admin: 05/12/23 08:21 Dose: 1.27 cm Documented By: DONAL Glucose (Glucose Gel 15 Gm Gel..Gram.) 15 gm PO Q15M PRN; Protocol PRN Reason: per Hypoglycemia Standing Ord. Sodium Chloride (Ns) 1,000 mls @ 100 mls/hr IVCONT .Q10H [facility] Last Admin: 05/12/23 03:38 Dose: 100 mls/hr Documented By: TYLER Insulin Human Lispro (Insulin Lispro 100 Unit/Ml 3 Ml Vial) 0 unit SUBCUT QIDACHS [facility]; Protocol Last Admin: 05/12/23 08:21 Dose: 2 unit Documented By: DONAL Latanoprost (Latanoprost 0.005 % Ophth Thalia 2.5 Ml Drops) 1 drop EYE-RIGHT BEDTIME [facility] Last Admin: 05/11/23 21:29 Dose: Not Given Documented By: TYLER Non-Admin Reason: Med Not Available Melatonin (Melatonin 3 Mg Tablet) 6 mg PO BEDTIME PRN PRN Reason: Insomnia Methylprednisolone Sodium Succinate (Methylprednisolone Sod Succ 40 Mg/Ml Vial) 40 mg IVPUSH Q12H [facility] Last Admin: 05/12/23 09:47 Dose: 40 mg Documented By: SAMMI Omeprazole (Omeprazole 40 Mg Capsule.) 40 mg PO DAILY@0630 [facility] Last Admin: 05/12/23 05:37 Dose: 40 mg Documented By: TYLER Ondansetron HCl (Ondansetron Hcl 4 Mg/2 Ml Vial) 4 mg IVPUSH Q8H PRN PRN Reason: Nausea and Vomiting Oseltamivir Phosphate (Oseltamivir Phosphate 75 Mg Capsule) 75 mg PO BID [facility] Last Admin: 05/12/23 08:20 Dose: 75 mg Documented By: DONAL Pravastatin Sodium (Pravastatin Sodium 10 Mg Tablet) 10 mg PO DAILY [facility] Last Admin: 05/12/23 08:20 Dose: 10 mg Documented By: DONAL Sodium Chloride (0.9 % Sodium Chloride Flush 3 Ml Syringe) 3 ml IVFLUSH QSHIFT [facility] Last Admin: 05/12/23 08:21 Dose: 3 ml Documented By: DONAL Labs 05/12/23 04:50 05/12/23 04:50 Labs: Laboratory Results - last 24 hr 05/11/23 05/11/23 05/11/23 09:48 17:51 19:22 MCV MCH MCHC RDW Plt Count MPV Absolute Nucleated RBC Nucleated RBC % (auto) Anion Gap Estim Creat Clear Calc Estimated GFR POC Glucose 169 H Random Glucose Calcium Procalcitonin 0.22 Urine Color Yellow Urine Appearance Cloudy Urine pH 5.5 Ur Specific [place] 1.025 Urine Protein 30 (1+) H Urine Glucose (UA) Negative Urine Ketones Trace Urine Blood Small (1+) H Urine Nitrite Negative Ur Leukocyte Esterase Small (1+) H Urine RBC >20 H Urine WBC 6-10 H Ur Squamous Epith Cells 3-5 Urine Bacteria Trace Hyaline Casts 3-5 05/11/23 05/12/23 05/12/23 20:49 02:10 04:50 MCV 74.1 L MCH 22.8 L MCHC 30.7 L RDW 16.8 H Plt Count 249 MPV 10.2 Absolute Nucleated RBC 0.000 Nucleated RBC % (auto) 0.0 Anion Gap 9 L Estim Creat Clear Calc 75.0 Estimated GFR > 60 POC Glucose 210 H 151 H Random Glucose 190 H Calcium 8.6 Procalcitonin Urine Color Urine Appearance Urine pH Ur Specific [place] Urine Protein Urine Glucose (UA) Urine Ketones Urine Blood Urine Nitrite Ur Leukocyte Esterase Urine RBC Urine WBC Ur Squamous Epith Cells Urine Bacteria Hyaline Casts 05/12/23 07:44 MCV MCH MCHC RDW Plt Count MPV Absolute Nucleated RBC Nucleated RBC % (auto) Anion Gap Estim Creat Clear Calc Estimated GFR POC Glucose 182 H Random Glucose Calcium Procalcitonin Urine Color Urine Appearance Urine pH Ur Specific [place] Urine Protein Urine Glucose (UA) Urine Ketones Urine Blood Urine Nitrite Ur Leukocyte Esterase Urine RBC Urine WBC Ur Squamous Epith Cells Urine Bacteria Hyaline Casts Microbiology Microbiology Results: Microbiology 05/11/23 09:56 Blood Culture - Preliminary Blood - Venous No growth after 24 hours. 05/11/23 09:48 Blood Culture - Preliminary Blood - Venous No growth after 24 hours. 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 Pt will be admitted to the hospital for treatment and further evaluation of acute on chronic hypoxic respiratory failure in the setting of recurrent pneumonia and COPD exacerbation in a patient with hx of ESBL pneumonia. Acute on chronic hypoxic respiratory failure likely from copd ex from recent flu, cxr finding are not new. He been treated apropriately for ESBL PNA. ID recommens no further treament for this, other than Doxy. Bronchodilators, steroid for COPD. O2 goal of 88 to 92 Influenza infection--Tamiflu, has completed tamiflu, stop Left eye pain/reduced vision/white substance Contact [facility] who report pt had two recent complicated, unsuccessful cataract surgeries Has so far failed at replacing patient's left eye lens White substance in eye is a Kenalog injection to reduce edema Per ophthalmology recommendations, can use erythromycin ointment and systolic analgesics for pain management Patient should follow-up outpatient with Ophthalmology Nonischemic cardiomyopathy Continue carvedilol Hold Entresto d/t soft BP, resume as warranted HFrEF Hold bumetanide d/t soft BP Resume as warranted Paroxysmal AFib Continue Eliquis Ftt-[id number]-svxygewjh diabetes type 2 resume metformin, SSI Diabetic diet Full Code Attending:?Dr. Bourgeois DVT Prophylaxis: On Eliquis need for inpt: copd exacergation with hypoxia anticipate dc tomorrow Quality Stroke Does the patient have a stroke diagnosis?: No VTE Prior VTE?: No VTE Risk Level:: Medical - moderate - high VTE Device Contraindication: Treatment Not Indicated VTE Drug Contraindication: N/A - Med Ordered
[2023-05-12 13:39] LABS: Glucose, Whole Blood 191 mg/dL (60-115)
--- NOTE | 2023-05-12 13:59 | PC.NURSE ---
medication/IVF administered per provider order. admission worksheet complete. transport notified at this time. pt sitting upright/eating lunch in no apparent distress at this time.
--- NOTE | 2023-05-12 13:59 | PM.CNPUL ---
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 Patient was recently positive for influenza. He also been recently hospitalized [facility] treated for E coli and stenotrophomonas pneumonia. Now his O2 saturation is normal on his usual supplemental oxygen 2 L. however, he has lethargic, though arousable, and his systolic blood pressure is in high 90s. His urine culture is positive Gram-negative dana. Review of Systems Constitutional: Constitutional: Denies daytime sleepiness, Denies excessive sweating, Reports fatigue, Denies fever(s), Denies lethargy, Reports malaise, Denies night sweats, Denies snoring and Denies weight loss Eyes: Eyes: Denies blurry vision and Denies itchy eyes ENT: Denies nasal congestion, Denies post nasal drip, Denies sinus pain, Denies sinus pressure and Denies other ( Thrush) Cardiovascular: Cardiovascular: Denies chest pain, Denies pedal edema, Denies dyspnea, Denies orthopnea and Denies paroxysmal nocturnal dyspnea Respiratory: Respiratory: Denies cough, Denies hemoptysis, Denies excessive phlegm production, Denies dyspnea, Denies snoring and Denies wheezing Gastrointestinal: Gastrointestinal: Denies abdominal pain and Denies heartburn Musculoskeletal: Musculoskeletal: Denies myalgias, Denies arthralgias and Denies joint swelling Integumentary/Breasts: Skin/Breast: Denies rash Neurologic: Denies memory loss and Denies seizure-like activity Psychiatric: Psychiatric: Denies abnormal sleep pattern, Denies anxiety and Denies memory loss Endocrine: Endocrine: Denies excessive sweating, Reports fatigue and Denies heat intolerance Hematologic/Lymphatic: Hematologic/Lymphatic: Denies easy bruising Allergic/Immunologic: Allergic/Immunologic: Denies itchy eyes, Denies seasonal rhinorrhea and Denies wheezing PMFSH Past Medical History Medical History Paroxysmal atrial fibrillation Congestive heart failure Bronchiectasis Acute and chronic respiratory failure BPH loc w urin obs/LUTS Urinary retention History of COVID-19 Chronic anticoagulation History of pneumothorax Diabetes Supplemental oxygen dependent COPD (chronic obstructive pulmonary disease) Kidney stone on left side Hearing loss NICM (nonischemic cardiomyopathy) JESSA (mycobacterium avium-intracellulare) Bronchiectasis Glaucoma Pure hypercholesterolemia GERD (gastroesophageal reflux disease) History of MAC infection Essential hypertension Family History Family History Father No problems noted. Mother Medical history unknown Sister Diabetes Daughter In good health Son In good health Brother No problems noted. Family history: reviewed and not pertinent Surgical History Surgical History History of transurethral resection of bladder tumor (TURBT) History of cataract surgery History of left inguinal hernia repair History of bronchoscopy History of colonoscopy History of lumbar surgery History of cystoscopy Social History Social History Household Members: None Housing: Apartment Are you a primary restorative care technician to a significant other at home: No Do you presently have visiting nurse or other home services: Yes (TILER'S ASSISTANT) Alcohol intake: former Comment: pt refusing bed alarm for moderate fall risk Patient Tobacco Use Status: Former Tobacco user Quit Date: 10 years ago Tobacco use type: Cigarette e-Cigarette/Vaping Use: Former Use Second Hand Smoke Exposure: No Advance Directives: Yes Advance Directives on File: Yes Advance Directives Date on File: 02/03/22 service: No Current occupational status: retired Cognitive needs: No Hearing needs: Yes Vision needs: Yes Meds Allergies Allergy/AdvReac Type Severity Reaction Status Date / Time Penicillins [PENICILLINS] Allergy Intermediate PASSED Verified 05/11/23 08:57 OUT trazodone Allergy Intermediate tremors Verified 05/11/23 08:57 brimonidine [From Alphagan P] Allergy Unknown Verified 05/11/23 08:57 diphenhydramine Allergy Unknown Verified 05/11/23 08:57 [From Benadryl] Active Medications: Current Medications Acetaminophen (Acetaminophen 325 Mg Tablet) 650 mg PO Q6H PRN PRN Reason: Pain, Mild (Pain Scale 1-3) Albuterol Sulfate (Albuterol Sulfate 90 Mcg 8 Gm Inhaler) 2 puff INHALE Q4H PRN PRN Reason: wheezing Albuterol/Ipratropium (Albuterol/Iprat 2.5/0.5mg 3 Ml Ampul.Neb) 3 ml INHALE QID PRN PRN Reason: for dyspnea Last Admin: 05/12/23 11:47 Dose: 3 ml Apixaban (Apixaban 5 Mg Tablet) 5 mg PO BID [facility] Last Admin: 05/12/23 08:21 Dose: 5 mg Carvedilol (Carvedilol 6.25 Mg Tablet) 6.25 mg PO BID [facility]; Protocol Last Admin: 05/12/23 08:20 Dose: 6.25 mg Dextrose (Dextrose 50 % 25 Gm/50 Ml Syringe) 25 gm IVPUSH Q15M PRN; Protocol PRN Reason: per Hypoglycemia Standing Ord. Docusate Sodium (Docusate Sodium 100 Mg Capsule) 100 mg PO BID [facility] Last Admin: 05/12/23 08:20 Dose: 100 mg Doxycycline Monohydrate (Doxycycline Monohydrate 100 Mg Capsule) 100 mg PO BID [facility] Last Admin: 05/12/23 08:20 Dose: 100 mg Erythromycin (Erythromycin Base 0.5% Oph Oin 1 Gm Tube) 1.27 cm EYE-BOTH QID [facility] Last Admin: 05/12/23 13:45 Dose: 1.27 cm Glucose (Glucose Gel 15 Gm Gel..Gram.) 15 gm PO Q15M PRN; Protocol PRN Reason: per Hypoglycemia Standing Ord. Sodium Chloride (Ns) 1,000 mls @ 100 mls/hr IVCONT .Q10H [facility] Last Admin: 05/12/23 13:36 Dose: 100 mls/hr Insulin Human Lispro (Insulin Lispro 100 Unit/Ml 3 Ml Vial) 0 unit SUBCUT QIDACHS [facility]; Protocol Last Admin: 05/12/23 13:46 Dose: 2 unit Latanoprost (Latanoprost 0.005 % Ophth Thalia 2.5 Ml Drops) 1 drop EYE-RIGHT BEDTIME [facility] Last Admin: 05/11/23 21:29 Dose: Not Given Melatonin (Melatonin 3 Mg Tablet) 6 mg PO BEDTIME PRN PRN Reason: Insomnia Methylprednisolone Sodium Succinate (Methylprednisolone Sod Succ 40 Mg/Ml Vial) 40 mg IVPUSH Q12H [facility] Last Admin: 05/12/23 09:47 Dose: 40 mg Omeprazole (Omeprazole 40 Mg Capsule.Dr) 40 mg PO DAILY@0630 [facility] Last Admin: 05/12/23 05:37 Dose: 40 mg Ondansetron HCl (Ondansetron Hcl 4 Mg/2 Ml Vial) 4 mg IVPUSH Q8H PRN PRN Reason: Nausea and Vomiting Oseltamivir Phosphate (Oseltamivir Phosphate 75 Mg Capsule) 75 mg PO BID [facility] Last Admin: 05/12/23 08:20 Dose: 75 mg Pravastatin Sodium (Pravastatin Sodium 10 Mg Tablet) 10 mg PO DAILY [facility] Last Admin: 05/12/23 08:20 Dose: 10 mg Sodium Chloride (0.9 % Sodium Chloride Flush 3 Ml Syringe) 3 ml IVFLUSH QSHIFT [facility] Last Admin: 05/12/23 08:21 Dose: 3 ml Home Medications Medication Instructions Recorded Confirmed Last Taken Type albuterol sulfate 90 mcg/actuation 2 puff inhalation Q4H PRN wheezing 03/09/23 05/11/23 Unknown History aerosol inhaler (Ventolin HFA) apixaban 5 mg tablet (Eliquis) 5 mg PO BID 03/09/23 05/11/23 03/08/23 History finasteride 5 mg tablet 5 mg PO DAILY 03/09/23 05/11/23 03/08/23 History lovastatin 10 mg tablet 10 mg PO DAILY 03/09/23 05/11/23 03/08/23 History metformin 500 mg tablet,extended 500 mg PO DAILY 03/09/23 05/11/23 03/08/23 History release 24 hr omeprazole 40 mg capsule,delayed 40 mg PO DAILY 03/09/23 05/11/23 03/08/23 History release sacubitril 24 mg-valsartan 26 mg 1 tab PO BID 03/09/23 05/11/23 03/08/23 History tablet (Entresto) travoprost 0.004 % eye drops 1 drp ophthalmic-Right BEDTIME 03/09/23 05/11/23 03/07/23 History bumetanide 1 mg tablet 1 mg PO DAILY 05/11/23 05/11/23 Unknown History Physical Exam Vital Signs: Vital Signs: Last Vital Signs Temp 98.4 F 05/12/23 13:35 Pulse 66 05/12/23 13:35 Resp 16 05/12/23 13:35 BP 92/42 L 05/12/23 13:35 Pulse Ox 99 05/12/23 13:35 O2 Del Method Room Air 05/12/23 13:35 O2 Flow Rate 2 05/12/23 08:30 Oxygen Flow Rate 10 05/11/23 08:49 BMI result Body Mass Index 22.1 Const: General: no acute distress and alert Nutritional Appearance: not obese Orientation/consciousness: Other orientation findings ( oriented) HEENT: Head: Yes atraumatic Eyes: General: appearance normal, both eyes and all related structures Sclerae: sclerae normal EOM: EOMs intact bilaterally Neck: Neck: Yes supple Lymphatic: no lymphadenopathy noted Resp: Effort & Inspection: normal respiratory effort and no use of accessory muscles Auscultation: clear to auscultation bilaterally Cardio: Rate: regular rate Rhythm: regular rhythm Heart sounds: no gallops, no murmurs and no rubs Skin: General skin exam: other ( warm) Extrem: General: No clubbing, No cyanosis and No edema Results Laboratory Findings 05/12/23 04:50 05/12/23 04:50 Abnormal lab findings: Abnormal Labs 05/11/23 05/11/23 05/11/23 09:23 09:47 09:48 WBC 16.9 H RBC 4.05 L Hgb 9.1 L Hct 29.6 L MCV 73.1 L MCH 22.5 L MCHC 30.7 L RDW 16.9 H Immature Gran % (Auto) 0.7 H Neut % (Auto) 86.3 H Lymph % (Auto) 2.7 L Lymph # (Auto) 0.5 L Leake # (Auto) 1.7 H Abs Immat Gran (auto) 0.11 H Absolute Neuts (auto) 14.6 H ABG pO2 at Pt Temp 78 L Sodium Anion Gap BUN POC Glucose Random Glucose 226 H Albumin 2.8 L Urine Protein Urine Blood Ur Leukocyte Esterase Urine RBC Urine WBC Influenza Type A (PCR) POSITIVE A 05/11/23 05/11/23 05/11/23 17:51 19:22 20:49 WBC RBC Hgb Hct MCV MCH MCHC RDW Immature Gran % (Auto) Neut % (Auto) Lymph % (Auto) Lymph # (Auto) Leake # (Auto) Abs Immat Gran (auto) Absolute Neuts (auto) ABG pO2 at Pt Temp Sodium Anion Gap BUN POC Glucose 169 H 210 H Random Glucose Albumin Urine Protein 30 (1+) H Urine Blood Small (1+) H Ur Leukocyte Esterase Small (1+) H Urine RBC >20 H Urine WBC 6-10 H Influenza Type A (PCR) 05/12/23 05/12/23 05/12/23 02:10 04:50 07:44 WBC 17.0 H RBC 3.78 L Hgb 8.6 L Hct 28.0 L MCV 74.1 L MCH 22.8 L MCHC 30.7 L RDW 16.8 H Immature Gran % (Auto) Neut % (Auto) Lymph % (Auto) Lymph # (Auto) Leake # (Auto) Abs Immat Gran (auto) Absolute Neuts (auto) ABG pO2 at Pt Temp Sodium 134 L Anion Gap 9 L BUN 21 H POC Glucose 151 H 182 H Random Glucose 190 H Albumin Urine Protein Urine Blood Ur Leukocyte Esterase Urine RBC Urine WBC Influenza Type A (PCR) 05/12/23 13:32 WBC RBC Hgb Hct MCV MCH MCHC RDW Immature Gran % (Auto) Neut % (Auto) Lymph % (Auto) Lymph # (Auto) Leake # (Auto) Abs Immat Gran (auto) Absolute Neuts (auto) ABG pO2 at Pt Temp Sodium Anion Gap BUN POC Glucose 191 H Random Glucose Albumin Urine Protein Urine Blood Ur Leukocyte Esterase Urine RBC Urine WBC Influenza Type A (PCR) Microbiology: Microbiology 05/11/23 09:56 Blood - Venous Blood Culture - Preliminary No growth after 24 hours. 05/11/23 09:48 Blood - Venous Blood Culture - Preliminary No growth after 24 hours. 05/11/23 Unknown Urine clean catch - Urine swanson top Urine Culture - Preliminary Gram negative dana Assessment and Plan (1) Influenza A: Status: Acute (2) COPD (chronic obstructive pulmonary disease): Qualifiers: COPD type: COPD with acute exacerbation Qualified Code(s): J44.1 - Chronic obstructive pulmonary disease with (acute) exacerbation Status: Acute (3) Bronchiectasis: Status: Acute (4) UTI (urinary tract infection): Status: Inactive Plan Impression: 82-year-old gentleman with underlying advanced COPD, bronchiectasis, chronic hypoxic respiratory failure on 2 L of supplemental oxygen now admitted with influenza A and UTI. From respiratory standpoint patient appears to be at his baseline. Recommendations: Meropenem for history of ESBL organisms for UTI and ?post influenza pneumonia. Continue Anoro, duo nebs, and Tamiflu. Procedures Date of Service Date of Service: 05/12/23
[2023-05-12 16:20] LABS: Glucose, Whole Blood 232 mg/dL (60-115)
[2023-05-12 20:53] LABS: Glucose, Whole Blood 153 mg/dL (60-115)
[2023-05-13] VITALS (14 sets, daily range): BP systolic 93–156; BP diastolic 52–84; PULSE 92–114; RESP 20–34; TEMP 36.2–37.3; O2SAT 88–94
[2023-05-13] MEDS: Melatonin 3 MG TABLET 6 MG PO (01:05)
[2023-05-13] MEDS: 0.9 % Sodium Chloride 1,000 ML 100 ML IVCONT (01:37)
--- NOTE | 2023-05-13 04:09 | PC.NURSE ---
Approximately after 21:00, this RN was informed by INVESTIGATOR CLAIMS that the pt stated he wants to . This RN notified the Nursing Storage Administrator of the situation. Sitter was placed at pt's bedside. Will continue to monitor pt's behavior.
[2023-05-13] MEDS: Albuterol/Iprat 2.5/0.5MG 3 ML AMPUL.NEB INHALE (04:19)
--- NOTE | 2023-05-13 04:51 | PM.EVENT ---
Event Note Date of Service: 05/13/23 Event Note: Patient with SI. Consulting sitter and Psychiatry Time Spent With Patient Time: Total time managing care of this patient today ____ minutes.
[2023-05-13] MEDS: Omeprazole 40 MG CAPSULE.DR PO (06:22)
[2023-05-13 07:04] LABS: Glucose, Whole Blood 164 mg/dL (60-115)
[2023-05-13] MEDS: Furosemide 40 MG/4 ML VIAL IVPUSH ×2 (08:12→16:04)
[2023-05-13] MEDS: Insulin Lispro 100 UNIT/ML 3 ML VIAL SUBCUT ×3 (08:15→22:25)
[2023-05-13 08:20] LABS: ABG Base Excess 3.9 mmol/L; ABG HCO3 28 mmol/L (22-26); ABG pCO2 42 mmHg (32-45); ABG pH 7.43 (7.35-7.45); ABG pO2 63 mmHg (83-108)
[2023-05-13] MEDS: methylPREDNISolone Sod Succ 40 MG/ML VIAL IVPUSH ×2 (08:25→22:24)
[2023-05-13] MEDS: Morphine Sulfate 2 MG/ML CARTRIDGE IVPUSH ×2 (08:36→16:11)
[2023-05-13] MEDS: 0.9 % Sodium Chloride Flush 3 ML SYRINGE IVFLUSH ×3 (08:38→22:25)
[2023-05-13 08:52] LABS: ABG Refer to POC result
[2023-05-13 09:05] LABS: MRSA Nasal PCR NEGATIVE (Negative); SA Nasal PCR NEGATIVE (Negative)
[2023-05-13 09:34] LABS: Glucose, Whole Blood 197 mg/dL (60-115)
--- NOTE | 2023-05-13 09:55 | P.PNIM_ITS ---
Subjective Subjective Date of Service: 05/13/23 Interval History: f/u on sob, recent ESBL PNA treatment and recent flu.. Was doing well then suddenly went into acute resp distress this morning. TAR HEAT EXCHANGER CLEANER called. He was was hypoxic with O2 less 88 and tachypnic breathing near 40, CXR david airway disease, ABG 7.43/42/62.. Given IV Lasix, IV shut off, [place] inserted with diuresis of water clear urine, morphine 2 mg given for acute resp distres.. He has improved and will be transfered to [facility]. He continues to have productive cough Review of Systems SOB Physical Exam 2 Vital Signs: Vital Signs: Last Vital Signs Temp 97.9 F 05/13/23 07:11 Pulse 104 H 05/13/23 09:01 Resp 32 H 05/13/23 09:01 BP 99/56 L 05/13/23 09:01 Pulse Ox 93 05/13/23 09:01 O2 Del Method Oxymask 05/13/23 09:01 O2 Flow Rate 7 05/13/23 09:01 Oxygen Flow Rate 4 05/13/23 08:16 BMI result Body Mass Index 22.1 General: AO X 3, but was in acute resp distress Resp: rales at bases with accessory muslces use but improved after lasix CVS: S1,S2,RRR GI: +BS, NT, no distention Skin: No rash Neuro: motor grossly intact Psych: flat affect Objective Data Active Medications Acetaminophen (Acetaminophen 325 Mg Tablet) 650 mg PO Q6H PRN PRN Reason: Pain, Mild (Pain Scale 1-3) Albuterol Sulfate (Albuterol Sulfate 90 Mcg 8 Gm Inhaler) 2 puff INHALE Q4H PRN PRN Reason: wheezing Albuterol/Ipratropium (Albuterol/Iprat 2.5/0.5mg 3 Ml Ampul.Neb) 3 ml INHALE QID PRN PRN Reason: for dyspnea Last Admin: 05/13/23 04:19 Dose: 3 ml Documented By: KENNY Apixaban (Apixaban 5 Mg Tablet) 5 mg PO BID [facility] Last Admin: 05/12/23 21:26 Dose: 5 mg Documented By: CHRIS Carvedilol (Carvedilol 6.25 Mg Tablet) 6.25 mg PO BID [facility]; Protocol Last Admin: 05/12/23 21:26 Dose: 6.25 mg Documented By: CHRIS Dextrose (Dextrose 50 % 25 Gm/50 Ml Syringe) 25 gm IVPUSH Q15M PRN; Protocol PRN Reason: per Hypoglycemia Standing Ord. Docusate Sodium (Docusate Sodium 100 Mg Capsule) 100 mg PO BID [facility] Last Admin: 05/12/23 21:26 Dose: 100 mg Documented By: CHRIS Doxycycline Monohydrate (Doxycycline Monohydrate 100 Mg Capsule) 100 mg PO BID [facility] Last Admin: 05/12/23 21:26 Dose: 100 mg Documented By: CHRIS Erythromycin (Erythromycin Base 0.5% Oph Oin 1 Gm Tube) 1.27 cm EYE-BOTH QID [facility] Last Admin: 05/12/23 21:30 Dose: 1.27 cm Documented By: CHRIS Comments: Glucose (Glucose Gel 15 Gm Gel..Gram.) 15 gm PO Q15M PRN; Protocol PRN Reason: per Hypoglycemia Standing Ord. Meropenem 1 gm/ Sodium (Chloride) 100 mls @ 200 mls/hr IV Q8H [facility] Insulin Human Lispro (Insulin Lispro 100 Unit/Ml 3 Ml Vial) 0 unit SUBCUT QIDACHS [facility]; Protocol Last Admin: 05/13/23 08:15 Dose: 2 unit Documented By: AYSE Latanoprost (Latanoprost 0.005 % Ophth Thalia 2.5 Ml Drops) 1 drop EYE-RIGHT BEDTIME [facility] Last Admin: 05/12/23 21:37 Dose: Not Given Documented By: CHRIS Non-Admin Reason: Med Not Available Melatonin (Melatonin 3 Mg Tablet) 6 mg PO BEDTIME PRN PRN Reason: Insomnia Last Admin: 05/13/23 01:05 Dose: 6 mg Documented By: CHRIS Methylprednisolone Sodium Succinate (Methylprednisolone Sod Succ 40 Mg/Ml Vial) 40 mg IVPUSH Q12H [facility] Last Admin: 05/13/23 08:25 Dose: 40 mg Documented By: AYSE Comments: Admin early Per Dr. Bourgeois. Omeprazole (Omeprazole 40 Mg Capsule.) 40 mg PO DAILY@0630 [facility] Last Admin: 05/13/23 06:22 Dose: 40 mg Documented By: CHRIS Ondansetron HCl (Ondansetron Hcl 4 Mg/2 Ml Vial) 4 mg IVPUSH Q8H PRN PRN Reason: Nausea and Vomiting Oseltamivir Phosphate (Oseltamivir Phosphate 75 Mg Capsule) 75 mg PO BID [facility] Last Admin: 05/12/23 21:26 Dose: 75 mg Documented By: CHRIS Pravastatin Sodium (Pravastatin Sodium 10 Mg Tablet) 10 mg PO DAILY [facility] Last Admin: 05/12/23 08:20 Dose: 10 mg Documented By: DONAL Sodium Chloride (0.9 % Sodium Chloride Flush 3 Ml Syringe) 3 ml IVFLUSH QSHIFT [facility] Last Admin: 05/13/23 08:38 Dose: 3 ml Documented By: FOGARTB Labs 05/12/23 04:50 05/12/23 04:50 Labs: Laboratory Results - last 24 hr 05/12/23 05/12/23 05/12/23 13:32 16:14 16:41 O2 Saturation ABG pH at Pt Temp ABG pCO2 at Pt Temp ABG pO2 at Pt Temp ABG HCO3 ABG Base Excess (Actual) POC Glucose 191 H 232 H Nasal Screen MRSA (PCR) NEGATIVE Nasal S. aureus Screen NEGATIVE Nasal MRSA/S.aureus Interp SEE NOTE 05/12/23 05/13/23 05/13/23 20:50 07:01 08:13 O2 Saturation 89.0 ABG pH at Pt Temp 7.43 ABG pCO2 at Pt Temp 42 ABG pO2 at Pt Temp 63 L ABG HCO3 28 H ABG Base Excess (Actual) 3.9 POC Glucose 153 H 164 H Nasal Screen MRSA (PCR) Nasal S. aureus Screen Nasal MRSA/S.aureus Interp 05/13/23 08:56 O2 Saturation ABG pH at Pt Temp ABG pCO2 at Pt Temp ABG pO2 at Pt Temp ABG HCO3 ABG Base Excess (Actual) POC Glucose 197 H Nasal Screen MRSA (PCR) Nasal S. aureus Screen Nasal MRSA/S.aureus Interp Microbiology Microbiology Results: Microbiology 05/11/23 Unknown Urine Culture - Final Urine clean catch - Urine swanson top Escherichia coli 05/11/23 09:56 Blood Culture - Preliminary Blood - Venous No growth after 24 hours. 05/11/23 09:48 Blood Culture - Preliminary Blood - Venous No growth after 24 hours. Assessment and Plan (1) Acute and chronic respiratory failure with hypoxia: Status: Acute Plan Pt is a 82-year-old male with a PMH significant for?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, bronchiectases, ESBL pneumonia, JESSA, HFrEF, nonischemic cardiomyopathy, paroxysmal AFib on Eliquis, HTN, HLD, [id number] diabetes type 2, GERD, BPH, hx nephrolithiasis, and lumbar degenerative disc disease who presents to the ED with?SOB, WRIGHT, fatigue, and productive cough. Pt will be admitted to the hospital for treatment and further evaluation of acute on chronic hypoxic respiratory failure in the setting of recurrent pneumonia and COPD exacerbation in a patient with hx of ESBL pneumonia. Acute hypoxic respiratory failure d/t pulmomonary edema from IVF and Bumex on hold d/t low B, known history of HFrEF. IVF dc'd, improving with IV Lasix, track I/O, check BNP, trop . Resume Bumex once BP better. [place] to track I/O better COPD exacerbation, recent flu. -continue bronchodilators and steroid, Depression--he reported stated last night that he wants to and has sitter, CARE team consult, I don't believe he intends to harm himself ESBL E.coli PNA--Previously treated ESBL E. coli UTI -Meropenem -ID following Influenza infection-- has completed Tamiflu Left eye pain/reduced vision/white substance Contact [facility] who report pt had two recent complicated, unsuccessful cataract surgeries Has so far failed at replacing patient's left eye lens White substance in eye is a Kenalog injection to reduce edema Per ophthalmology recommendations, can use erythromycin ointment and systolic analgesics for pain management Patient should follow-up outpatient with Ophthalmology Nonischemic cardiomyopathy Continue carvedilol Hold Entresto d/t soft BP, resume as warranted Paroxysmal AFib Continue Eliquis [id number] diabetes type 2 resume metformin, SSI Diabetic diet Full Code Attending:?Dr. Bourgeois DVT Prophylaxis: On Eliquis need for inpt: copd exacergation with hypoxia Ongoing hospitalization for acute hypoxic resp failure, pulmonary edema needing IV diuretics and close monitoring Quality Stroke Does the patient have a stroke diagnosis?: No VTE Prior VTE?: No VTE Risk Level:: Medical - moderate - high VTE Device Contraindication: Treatment Not Indicated VTE Drug Contraindication: N/A - Med Ordered
[2023-05-13 10:26] LABS: Hematocrit 30.1 % (42.0-52.0); Hemoglobin 9.2 g/dl (14.0-18.0); Mean Corpuscular HGB Conc 30.6 g/dl (31.0-36.0); Mean Corpuscular Hemoglobin 22.7 pg (27.0-33.0); Mean Corpuscular Volume 74.3 fL (80.0-98.0); Mean Platelet Volume 9.8 fL (9.4-12.4); Platelet Count 282 X10*3/uL (160-400); Red Blood Count 4.05 X10*6/uL (4.60-5.80); Red Cell Distribution Width 16.8 % (11.0-16.0)
--- NOTE | 2023-05-13 10:34 | PC.NURSE ---
Approximately 0750, SEWING TECHNIQUES DEMONSTRATOR notified this RN of patient requesting supplemental oxygen to be increased from 2L to 3L via [place]. This RN arrived at bedside and performed an assessment of patient. Patient exhibited increased work of breathing with mild accessory muscle use and SpO2 saturation decreased to middle 80's. Patient assisted with breathing exercises and provided support to decrease anxiety with positive reception centre manager. Lung sounds in bilateral bases severely diminished with inspiratory rhonchi throughout upper lobes and productive cough. Patient placed on oxymask with supplemental O2 increased to 3L- no improvement with saturation. Patient became increasingly restless, accessory muscle use increased, and oxygen saturation decreased to 78%. REGIONAL EDUCATION MANAGER called at approximately 0803. Rapid response team arrived at bedside at 0804. Refer to MAR, primary REGIONAL EDUCATION MANAGER assessment, and 1 hour follow up REGIONAL EDUCATION MANAGER assessment for further details. Report given to Franci HUERTA- Patient transferred to [facility] at approximately 0945.
[2023-05-13 10:41] LABS: Anion Gap 12 (12-20); Blood Urea Nitrogen 15 mg/dL (9-16); Carbon Dioxide 27 mmol/L (22-29); Chloride 100 mmol/L (96-108); Estimated Glomerular Filt Rate > 60; Glucose Random 235 mg/dL (60-115); Potassium 3.7 mmol/L (3.3-5.1); Sodium 135 mmol/L (135-145)
[2023-05-13] MEDS: Doxycycline Monohydrate 100 MG CAPSULE PO ×2 (10:45→22:24)
[2023-05-13] MEDS: Docusate Sodium 100 MG CAPSULE PO ×2 (10:45→22:24)
[2023-05-13] MEDS: carvediloL 6.25 MG TABLET PO ×2 (10:45→22:24)
[2023-05-13] MEDS: Apixaban 5 MG TABLET PO ×2 (10:45→22:24)
[2023-05-13] MEDS: Oseltamivir Phosphate 75 MG CAPSULE PO ×2 (10:45→22:24)
[2023-05-13 10:47] LABS: B Type Natriuretic Peptide 171 pg/mL (<100)
[2023-05-13] MEDS: Pravastatin Sodium 10 MG TABLET PO (11:02)
[2023-05-13 11:36] LABS: Glucose, Whole Blood 200 mg/dL (60-115)
[2023-05-13] MEDS: Albumin Human 25 % 100 ML IV (11:49)
--- NOTE | 2023-05-13 12:04 | P.PNPL_ITS ---
Subjective Subjective Date of Service: 05/13/23 Interval history: Worsening respiratory status overnight, now up to 6-7 L of supplemental oxygen, also positive approximately 3 L since admission. Urine cultures growing ESBL E coli. Objective Data Labs 05/13/23 10:15 05/13/23 10:15 Labs: Laboratory Results - last 24 hr 05/12/23 05/12/23 05/12/23 13:32 16:14 16:41 WBC RBC Hgb Hct MCV MCH MCHC RDW Plt Count MPV Absolute Nucleated RBC Nucleated RBC % (auto) O2 Saturation ABG pH at Pt Temp ABG pCO2 at Pt Temp ABG pO2 at Pt Temp ABG HCO3 ABG Base Excess (Actual) Sodium Potassium Chloride Carbon Dioxide Anion Gap BUN Creatinine Estim Creat Clear Calc Estimated GFR POC Glucose 191 H 232 H Random Glucose Calcium Troponin I High Sens B-Natriuretic Peptide Nasal Screen MRSA (PCR) NEGATIVE Nasal S. aureus Screen NEGATIVE Nasal MRSA/S.aureus Interp SEE NOTE 05/12/23 05/13/23 05/13/23 20:50 07:01 08:13 WBC RBC Hgb Hct MCV MCH MCHC RDW Plt Count MPV Absolute Nucleated RBC Nucleated RBC % (auto) O2 Saturation 89.0 ABG pH at Pt Temp 7.43 ABG pCO2 at Pt Temp 42 ABG pO2 at Pt Temp 63 L ABG HCO3 28 H ABG Base Excess (Actual) 3.9 Sodium Potassium Chloride Carbon Dioxide Anion Gap BUN Creatinine Estim Creat Clear Calc Estimated GFR POC Glucose 153 H 164 H Random Glucose Calcium Troponin I High Sens B-Natriuretic Peptide Nasal Screen MRSA (PCR) Nasal S. aureus Screen Nasal MRSA/S.aureus Interp 05/13/23 05/13/23 05/13/23 08:56 10:15 11:33 WBC 14.0 H RBC 4.05 L Hgb 9.2 L Hct 30.1 L MCV 74.3 L MCH 22.7 L MCHC 30.6 L RDW 16.8 H Plt Count 282 MPV 9.8 Absolute Nucleated RBC 0.000 Nucleated RBC % (auto) 0.0 O2 Saturation ABG pH at Pt Temp ABG pCO2 at Pt Temp ABG pO2 at Pt Temp ABG HCO3 ABG Base Excess (Actual) Sodium 135 Potassium 3.7 Chloride 100 Carbon Dioxide 27 Anion Gap 12 BUN 15 Creatinine 0.67 Estim Creat Clear Calc 75.0 Estimated GFR > 60 POC Glucose 197 H 200 H Random Glucose 235 H Calcium 8.0 L D Troponin I High Sens 7.0 D B-Natriuretic Peptide 171 H Nasal Screen MRSA (PCR) Nasal S. aureus Screen Nasal MRSA/S.aureus Interp Microbiology Microbiology Results: Microbiology 05/11/23 09:48 Blood - Venous Blood Culture - Preliminary No growth after 48 hours. 05/11/23 Unknown Urine clean catch - Urine swanson top Urine Culture - Final Escherichia coli 05/11/23 09:56 Blood - Venous Blood Culture - Preliminary No growth after 24 hours. Physical Exam 2 Vital Signs: Vital Signs: Last Vital Signs Temp 97.5 F 05/13/23 10:21 Pulse 108 H 05/13/23 10:21 Resp 32 H 05/13/23 10:21 BP 93/53 L 05/13/23 10:21 Pulse Ox 94 05/13/23 10:21 O2 Del Method Oxymask 05/13/23 10:21 O2 Flow Rate 7 05/13/23 10:21 Oxygen Flow Rate 7 05/13/23 09:15 BMI result Body Mass Index 22.1 Const: General: no acute distress, alert and awake Eyes: Sclerae: sclerae normal EOM: EOMs intact bilaterally Neck: Neck: Yes no lymphadenopathy, Yes trachea midline and Yes supple Resp: Effort & Inspection: normal respiratory effort and no respiratory distress Auscultation: clear to auscultation bilaterally Cardio: Rate: tachycardic Rhythm: regular rhythm Heart sounds: no gallops, no murmurs and no rubs GI: Palpation (GI): Soft to palpation and Other GI palpation findings present ( Nontender) Auscultation: normal bowel sounds Extrem: General: Yes no pedal edema, No clubbing and No cyanosis Procedures Date of Service Date of Service: 05/13/23 Assessment and Plan Assessment and plan (1) Acute and chronic respiratory failure with hypoxia: Status: Acute (2) Congestive heart failure: Status: Acute (3) UTI due to extended-spectrum beta lactamase (ESBL) producing Escherichia coli: Status: Acute (4) Bronchiectasis: Status: Acute (5) COPD (chronic obstructive pulmonary disease): Status: Acute Plan Impression: 82-year-old gentleman with underlying advanced COPD, bronchiectasis, chronic hypoxic respiratory failure on 2 L of supplemental oxygen now admitted with influenza A and ESBL E.Coli UTI. Respiratory status wprsened overnight with increase on I/O of ~3L. Recommendations: Meropenem for history of ESBL organisms for UTI and ?post influenza pneumonia. Continue Anoro, duo nebs, and Tamiflu. Consider judiciois diuresis with colloidal support. Time Spent With Patient Time: Total time managing care of this patient today ____ minutes. Progress Note: Quality Stroke Does the patient have a stroke diagnosis?: No
--- NOTE | 2023-05-13 12:29 | MHC.CM.PN ---
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
[2023-05-13 16:14] LABS: Glucose, Whole Blood 153 mg/dL (60-115)
[2023-05-13 16:23] LABS: ABG Base Excess 6.4 mmol/L; ABG HCO3 31 mmol/L (22-26); ABG pCO2 45 mmHg (32-45); ABG pH 7.44 (7.35-7.45); ABG pO2 60 mmHg (83-108)
--- NOTE | 2023-05-13 16:44 | PM.EVENT ---
Event Note Date of Service: 05/13/23 Event Note: Pt improve following IV Lasix 40, albumin. He diuressed about a 1500 cc, brething improving but in then in the afternoon breathing rate increased again, uncomfortable,.. Gave another Lasix 40 mg and morphine 2 mg IV with improvment. Repeat ABG 7.44 45 60 87% 31 He is sdiuresing again, and will try on hiFlow and if he continues to worsen may need to go to ICU, will get cardiology to assess him tomorrow Time Spent With Patient Time: Total time managing care of this patient today ____ minutes.
[2023-05-13 18:02] LABS: ABG Refer to POC result
--- NOTE | 2023-05-13 18:21 | PC.NURSE ---
@ 16:00 Patient is alert, increased work of breathing, and displaying shortness of breathing.PAtient has purse lips and tripoding. SP02 82%. Dr. Bourgeois at beside lasix and morphine ordered to reduce work of breath and diuresis patient. See MAR for medication administration. 300 urine output over first 10 minutes. Patient states improvement in work of breathing spo2 up to 86%. Respiratory ankit ABG labs. Patient put on high flow 40L 60% to maintain spo2 of 90%. Patient in bed, bed alarm on, in lowest position. One to one at bed side.
[2023-05-13 21:13] LABS: Glucose, Whole Blood 222 mg/dL (60-115)
[2023-05-13] MEDS: Erythromycin Base 0.5% Oph Oin 1 GM TUBE 1.27 CM EYE-BOTH (22:24)
[2023-05-13] MEDS: Acetaminophen 325 MG TABLET 650 MG PO (22:25)
[2023-05-13] MEDS: guaiFENesin 100 MG/5 ML LIQUID PO (22:35)
[2023-05-13] MEDS: Throat Lozenge, Medicated LOZENGE 1 LOZENGE MUCOUS MEM (22:35)
[2023-05-14] VITALS (12 sets, daily range): BP systolic 98–131; BP diastolic 51–78; PULSE 72–100; RESP 18–34; TEMP 36.1–36.6; O2SAT 90–100
[2023-05-14] MEDS: guaiFENesin 100 MG/5 ML LIQUID PO ×2 (03:05→19:40)
[2023-05-14] MEDS: Omeprazole 40 MG CAPSULE.DR PO (05:07)
--- NOTE | 2023-05-14 07:00 | CA_ITS ---
Transthoracic Echocardiogram Patient (Last, First, Middle): Yao Herman A Gender: Male Date of : 1940 Age: 82 Procedure Date: 05/14/2023 Procedure Type: Transthoracic Echocardiogram Location: [facility] [place] Height: 160.02 cm Weight: 53.07 kg BSA: 1.54 m2 Heart Rate: bpm BP: 126 / 66 mmHg Sales Exec: Referring MD: [place] Bourgeois MD Symptoms: heart failure Study Quality: Fair ECG Rhythm: Sinus Conclusions: - Normal left ventricular cavity size. There is mildly increased left ventricular wall thickness. The left ventricular systolic function is mild to moderately decreased. The visually estimated ejection fraction is between 35-40%. - E/E prime ratio is between 8 and 15 consistent with indeterminate filling pressures. - The basal inferior segment is akinetic. - Normal right ventricular cavity size and systolic function. - There is mild dilatation of the ascending aorta measuring 3.90 cm. Findings Procedure Information Contrast agent, definity, is being given per protocol without apparent complications. Left Ventricle Normal left ventricular cavity size. There is mildly increased left ventricular wall thickness. The left ventricular systolic function is mild to moderately decreased. The visually estimated ejection fraction is between 35-40%. There is evidence of regional wall motion abnormalities. Abnormal diastolic function is noted. Spectral Doppler is indicative of an impaired relaxation filling pattern. E/E prime ratio is between 8 and 15 consistent with indeterminate filling pressures. Wall Motion Rest Echo Findings The basal inferior segment is akinetic. Right Ventricle Normal right ventricular cavity size and systolic function. Atria The left atrium is mildly dilated. Aortic Valve The aortic valve was not well visualized. There is no aortic valve stenosis. There is no aortic valve regurgitation. Mitral Valve The mitral valve appears normal. There is no mitral valve regurgitation. There is no mitral valve stenosis. Pulmonic Valve The pulmonic valve is likely normal. Tricuspid Valve Normal tricuspid valve structure. There is trace tricuspid valve regurgitation. Normal right atrial pressure. There is no evidence of pulmonary hypertension. Great Vessels There is mild dilatation of the ascending aorta measuring 3.90 cm. Venous The inferior vena cava is normal in size and collapses greater than 50% with inspiration. Pericardium/Pleural There is no evidence of pericardial effusion. Prior Study Comparison Changes noted compared to prior study dated: 12/09/2021. EF 35-40%. Measurements 2D Linear Measurements IVSd: 1.35 0.6-0.9/0.6-1.0 cm LVIDd: 4.81 3.9-5.3/4.2-5.9 cm LVIDd Index: 3.12 2.4-3.2/2.2-3.1 cm/m2 LVIDs: 3.52 2.0-3.6 cm LVPWd: 1.24 0.7-1.1 cm Ao Root: 3.60 2.1-3.5 cm LA Diam: 3.60 2.7-3.8/3.0-4.0 cm LAIDs Index: 2.34 1.5-2.3 cm/m2 LV Mass: 305.70 67-162/88-224 g LV Mass Index: 198.50 43-95/49-115 g/m2 LVOT Diam: 2.10 3.0+(-)1.3 cm 2D Systolic Function EF 4C: 48.30 >55% EF 2C: 42.20 >55% EF BiP: 47.10 >55% Mitral Valve MV Pk E: 0.66 MV PK A: 1.05 MV Decel Time: 88.00 E/A: 0.60 E'Lateral: 6.64 E'Medial: 4.68 E/E' Med: 14.20 E/E' Lat: 10.00 PHT: 26.00 MVA PHT: 8.46 Decel Bracken: 7.57 Aortic Valve AoV Pk Darren: 1.61 AoV Mn Darren: 1.03 AoV VTI: 0.27 AoV Pk Grad: 10.00 Aov Mn Grad: 5.00 DULCE Cont.VTI: 2.42 LVOT LVOT Pk Darren: 0.87 LVOT Mn Darren: 0.53 LVOT VTI: 0.19 LVOT Pk Grad: 3.00 LVOT Mn Grad: 1.00 LVOT Diam: 2.10 LVOT Area: 3.46 Diastolic Function MV Pk E: 0.66 MV Pk A: 1.05 E/A: 0.60 E'Medial: 4.68 E/E' Med: 14.20 E' Laterial: 6.64 E/E' Lat: 10.00 Right Ventricle TAPSE (mm): 25.00 TVS' Darren: 14.00 Tricuspid Valve TR Pk Darren: 2.02 TR Pk Grad: 16.00 RA Press: 3.00 RVSP: 19.00 Great Vessels Aorta Ao Root-2D: 3.60 2.0-3.7 cm Ao Asc: 3.90 2.1-3.4 cm Pulmonary Valve PV Pk Darren: 1.25 Peak PV Grad: 6.00 Updated in Other Vendor System with Status of Final Eduard Manning MD electronically signed on 05/15/2023 1:25:24 PM with status of Final
[2023-05-14 08:00] LABS: Glucose, Whole Blood 138 mg/dL (60-115)
[2023-05-14 09:33] LABS: Anion Gap 11 (12-20); Blood Urea Nitrogen 19 mg/dL (9-16); Calcium 8.7 mg/dL (8.4-10.2); Carbon Dioxide 33 mmol/L (22-29); Chloride 96 mmol/L (96-108); Creatinine Clr Calc Pharmacy 83.7; Estimated Glomerular Filt Rate > 60; Glucose Random 169 mg/dL (60-115); Potassium 3.8 mmol/L (3.3-5.1); Sodium 136 mmol/L (135-145)
[2023-05-14] MEDS: methylPREDNISolone Sod Succ 40 MG/ML VIAL IVPUSH ×2 (09:37→20:47)
[2023-05-14] MEDS: Pravastatin Sodium 10 MG TABLET PO (09:38)
[2023-05-14] MEDS: Bumetanide 1 MG/4 ML VIAL IVPUSH ×2 (09:38→17:22)
[2023-05-14] MEDS: Docusate Sodium 100 MG CAPSULE PO ×2 (09:38→19:39)
[2023-05-14] MEDS: Apixaban 5 MG TABLET PO ×2 (09:38→19:40)
[2023-05-14] MEDS: carvediloL 6.25 MG TABLET PO ×2 (09:38→19:37)
[2023-05-14] MEDS: Doxycycline Monohydrate 100 MG CAPSULE PO ×2 (09:38→19:40)
[2023-05-14] MEDS: 0.9 % Sodium Chloride Flush 3 ML SYRINGE IVFLUSH ×3 (09:38→20:47)
[2023-05-14] MEDS: Erythromycin Base 0.5% Oph Oin 1 GM TUBE 1.27 CM EYE-BOTH ×4 (10:15→19:40)
--- NOTE | 2023-05-14 10:55 | P.PNIM_ITS ---
Subjective Subjective Date of Service: 05/14/23 Interval History: f/u on sob, recent ESBL PNA treatment and recent flu and now ESBL E. coli UTI. Patient went into heart failure yesterday with acute hypoxic respiratory failure and ended up being put on HiFLow. He is seemingly much better today, more comfortable. Overall + fluid balance, but negative overnight. Tachypnea resolved. Review of Systems SOB is better Physical Exam 2 Vital Signs: Vital Signs: Last Vital Signs Temp 97.0 F 05/14/23 07:11 Pulse 96 05/14/23 07:11 Resp 20 05/14/23 08:21 BP 121/67 05/14/23 07:11 Pulse Ox 100 05/14/23 07:11 O2 Del Method High Flow Nasal C annula 05/14/23 07:11 O2 Flow Rate 40 05/14/23 07:11 FiO2 57 05/14/23 07:11 Oxygen Flow Rate 7 05/13/23 09:15 BMI result Body Mass Index 22.1 General: AO X 3, no acute distress Resp: bilatera rales, normal respiatory effort CVS: S1,S2,RRR GI: +BS, NT, no distention Skin: No rash Neuro: motor grossly intact Psych: appropriate affect Objective Data Active Medications Acetaminophen (Acetaminophen 325 Mg Tablet) 650 mg PO Q6H PRN PRN Reason: Pain, Mild (Pain Scale 1-3) Last Admin: 05/13/23 22:25 Dose: 650 mg Documented By: MELIA Albuterol Sulfate (Albuterol Sulfate 90 Mcg 8 Gm Inhaler) 2 puff INHALE Q4H PRN PRN Reason: wheezing Albuterol/Ipratropium (Albuterol/Iprat 2.5/0.5mg 3 Ml Ampul.Neb) 3 ml INHALE QID PRN PRN Reason: for dyspnea Last Admin: 05/13/23 04:19 Dose: 3 ml Documented By: KENNY Apixaban (Apixaban 5 Mg Tablet) 5 mg PO BID TON Last Admin: 05/14/23 09:38 Dose: 5 mg Documented By: SCAR Benzocaine (Throat Lozenge, Medicated Lozenge) 1 lozenge MUCOUS MEM Q2H PRN PRN Reason: Sore Throat Last Admin: 05/13/23 22:35 Dose: 1 lozenge Documented By: MELIA Bumetanide (Bumetanide 1 Mg/4 Ml Vial) 1 mg IVPUSH BID@0900,1700 [facility]; Protocol Last Admin: 05/14/23 09:38 Dose: 1 mg Documented By: SCAR Carvedilol (Carvedilol 6.25 Mg Tablet) 6.25 mg PO BID [facility]; Protocol Last Admin: 05/14/23 09:38 Dose: 6.25 mg Documented By: SCAR Dextrose (Dextrose 50 % 25 Gm/50 Ml Syringe) 25 gm IVPUSH Q15M PRN; Protocol PRN Reason: per Hypoglycemia Standing Ord. Docusate Sodium (Docusate Sodium 100 Mg Capsule) 100 mg PO BID [facility] Last Admin: 05/14/23 09:38 Dose: 100 mg Documented By: SCAR Doxycycline Monohydrate (Doxycycline Monohydrate 100 Mg Capsule) 100 mg PO BID [facility] Last Admin: 05/14/23 09:38 Dose: 100 mg Documented By: SCAR Erythromycin (Erythromycin Base 0.5% Oph Oin 1 Gm Tube) 1.27 cm EYE-BOTH QID [facility] Last Admin: 05/14/23 10:15 Dose: 1.27 cm Documented By: SCAR Glucose (Glucose Gel 15 Gm Gel..Gram.) 15 gm PO Q15M PRN; Protocol PRN Reason: per Hypoglycemia Standing Ord. Guaifenesin (Guaifenesin 100 Mg/5 Ml Liquid) 5 ml PO Q4H PRN PRN Reason: Cough Last Admin: 05/14/23 03:05 Dose: 5 ml Documented By: MELIA Insulin Human Lispro (Insulin Lispro 100 Unit/Ml 3 Ml Vial) 0 unit SUBCUT QIDACHS [facility]; Protocol Last Admin: 05/14/23 08:02 Dose: Not Given Documented By: SCAR Non-Admin Reason: No Insulin Coverage Latanoprost (Latanoprost 0.005 % Ophth Thalia 2.5 Ml Drops) 1 drop EYE-RIGHT BEDTIME [facility] Last Admin: 05/13/23 22:44 Dose: Not Given Documented By: MELIA Non-Admin Reason: Med Not Available Melatonin (Melatonin 3 Mg Tablet) 6 mg PO BEDTIME PRN PRN Reason: Insomnia Last Admin: 05/13/23 01:05 Dose: 6 mg Documented By: CHRIS Methylprednisolone Sodium Succinate (Methylprednisolone Sod Succ 40 Mg/Ml Vial) 40 mg IVPUSH Q12H [facility] Last Admin: 05/14/23 09:37 Dose: 40 mg Documented By: SCAR Omeprazole (Omeprazole 40 Mg Capsule.Dr) 40 mg PO DAILY@0630 [facility] Last Admin: 05/14/23 05:07 Dose: 40 mg Documented By: MELIA Ondansetron HCl (Ondansetron Hcl 4 Mg/2 Ml Vial) 4 mg IVPUSH Q8H PRN PRN Reason: Nausea and Vomiting Pravastatin Sodium (Pravastatin Sodium 10 Mg Tablet) 10 mg PO DAILY [facility] Last Admin: 05/14/23 09:38 Dose: 10 mg Documented By: SCAR Sodium Chloride (0.9 % Sodium Chloride Flush 3 Ml Syringe) 3 ml IVFLUSH QSHIFT [facility] Last Admin: 05/14/23 09:38 Dose: 3 ml Documented By: SCAR Labs 05/13/23 10:15 05/14/23 08:32 Labs: Laboratory Results - last 24 hr 05/13/23 05/13/23 05/13/23 11:33 16:11 16:14 Hold Purple Top O2 Saturation 87.0 ABG pH at Pt Temp 7.44 ABG pCO2 at Pt Temp 45 ABG pO2 at Pt Temp 60 L ABG HCO3 31 H ABG Base Excess (Actual) 6.4 Anion Gap Estim Creat Clear Calc Estimated GFR POC Glucose 200 H 153 H Random Glucose Calcium 05/13/23 05/14/23 05/14/23 21:04 07:45 08:32 Hold Purple Top SEE NOTE O2 Saturation ABG pH at Pt Temp ABG pCO2 at Pt Temp ABG pO2 at Pt Temp ABG HCO3 ABG Base Excess (Actual) Anion Gap 11 L Estim Creat Clear Calc 83.7 Estimated GFR > 60 POC Glucose 222 H 138 H Random Glucose 169 H Calcium 8.7 D Microbiology Microbiology Results: Microbiology 05/11/23 09:56 Blood Culture - Preliminary Blood - Venous No growth after 48 hours. 05/11/23 09:48 Blood Culture - Preliminary Blood - Venous No growth after 48 hours. 05/11/23 Unknown Urine Culture - Final Urine clean catch - Urine swanson top Escherichia coli Assessment and Plan (1) Acute and chronic respiratory failure with hypoxia: Status: Acute Plan Pt is a 82-year-old male with a PMH significant for?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, bronchiectases, ESBL pneumonia, JESSA, HFrEF, nonischemic cardiomyopathy, paroxysmal AFib on Eliquis, HTN, HLD, [id number] diabetes type 2, GERD, BPH, hx nephrolithiasis, and lumbar degenerative disc disease who presents to the ED with?SOB, WRIGHT, fatigue, and productive cough. Pt will be admitted to the hospital for treatment and further evaluation of acute on chronic hypoxic respiratory failure in the setting of recurrent pneumonia and COPD exacerbation in a patient with hx of ESBL pneumonia. Acute hypoxic respiratory failure d/t pulmomonary edema, he was diuressed with IV Lasix yesterday with good effect, overall he's more comfortable. IV Bumex, follow i/o, wean off high flow, echo today, cardiology to assess COPD exacerbation--bronchodilators by Neb, IV steroid. Depression--he reported stated last night that he wants to and has sitter, CARE team consult, I don't believe he intends to harm himself ESBL E.coli PNA--Previously treated ESBL E. coli UTI -Meropenem -ID following Influenza infection-- has completed Tamiflu, dc Left eye pain/reduced vision/white substance Contact [facility] who report pt had two recent complicated, unsuccessful cataract surgeries Has so far failed at replacing patient's left eye lens White substance in eye is a Kenalog injection to reduce edema Per ophthalmology recommendations, can use erythromycin ointment and systolic analgesics for pain management Patient should follow-up outpatient with Ophthalmology Nonischemic cardiomyopathy Continue carvedilol resume Entresto now that BP is beter Paroxysmal AFib Continue Eliquis [id number] diabetes type 2 resume metformin, SSI Diabetic diet Full Code Attending:?Dr. Bourgeois DVT Prophylaxis: On Eliquis need for inpt: copd exacergation with hypoxia Ongoing hospitalization for acute hypoxic resp failure, pulmonary edema needing IV diuretics and close monitoring Quality Stroke Does the patient have a stroke diagnosis?: No VTE Prior VTE?: No VTE Risk Level:: Medical - moderate - high VTE Device Contraindication: Treatment Not Indicated VTE Drug Contraindication: N/A - Med Ordered
--- NOTE | 2023-05-14 11:31 | P.CONCA_ITS ---
History of Present Illness History of Present Illness Date of Service: 05/14/23 Requesting physician: Ch[place] Bourgeois Chief complaint: Dyspnea/?CHF Narrative: 82-year-old gentleman who has background history of COPD on 2 L home oxygen, bronchiectasis, ESBL, JESSA, heart failure with previous echocardiography showing EF 50 55%, paroxysmal atrial fibrillation on anticoagulation, hypertension, diabetes, GERD and BPH. He is presenting with shortness of breath and has test is positive for influenza A. Was significantly tachypneic and hypoxic and on with hypotension in the ER and was resuscitated with fluids. Chest x-ray showed multifocal bilateral infiltrates. He had worsening symptoms last evening and chest x-ray showed worsening in the infiltrates and was given diuretics. He continues to be on high-flow oxygen. He is denying any chest discomfort. He is saying that he is short of breath and feels that there is phlegm which she can not bring up. He is on IV Bumex currently. He is on antibiotics with doxycycline and he is on IV steroids right now. He is anticoagulated with Eliquis. [facility] Past Medical History Medical History Paroxysmal atrial fibrillation Congestive heart failure Bronchiectasis Acute and chronic respiratory failure BPH loc w urin obs/LUTS Urinary retention History of COVID-19 Chronic anticoagulation History of pneumothorax Diabetes Supplemental oxygen dependent COPD (chronic obstructive pulmonary disease) Kidney stone on left side Hearing loss NICM (nonischemic cardiomyopathy) JESSA (mycobacterium avium-intracellulare) Bronchiectasis Glaucoma Pure hypercholesterolemia GERD (gastroesophageal reflux disease) History of MAC infection Essential hypertension Family History Family History Father No problems noted. Mother Medical history unknown Sister Diabetes Daughter In good health Son In good health Brother No problems noted. Family history: reviewed and not pertinent Surgical History Surgical History History of transurethral resection of bladder tumor (TURBT) History of cataract surgery History of left inguinal hernia repair History of bronchoscopy History of colonoscopy History of lumbar surgery History of cystoscopy Social History Social History Household Members: None Housing: Apartment Are you a primary client care manager to a significant other at home: No Do you presently have visiting nurse or other home services: Yes (BEHAVIORAL THERAPY COORDINATOR) Alcohol intake: former Comment: 1:1 sitter in room Patient Tobacco Use Status: Former Tobacco user Quit Date: 10 years ago Tobacco use type: Cigarette e-Cigarette/Vaping Use: Former Use Second Hand Smoke Exposure: No Advance Directives Date on File: 02/03/22 service: No Current occupational status: retired Cognitive needs: No Hearing needs: Yes Vision needs: Yes Meds Allergies Allergy/AdvReac Type Severity Reaction Status Date / Time Penicillins [PENICILLINS] Allergy Intermediate PASSED Verified 05/11/23 08:57 OUT trazodone Allergy Intermediate tremors Verified 05/11/23 08:57 brimonidine [From Alphagan P] Allergy Unknown Verified 05/11/23 08:57 diphenhydramine Allergy Unknown Verified 05/11/23 08:57 [From Benadryl] Active Medications: Current Medications Acetaminophen (Acetaminophen 325 Mg Tablet) 650 mg PO Q6H PRN PRN Reason: Pain, Mild (Pain Scale 1-3) Last Admin: 05/13/23 22:25 Dose: 650 mg Albuterol Sulfate (Albuterol Sulfate 90 Mcg 8 Gm Inhaler) 2 puff INHALE Q4H PRN PRN Reason: wheezing Albuterol/Ipratropium (Albuterol/Iprat 2.5/0.5mg 3 Ml Ampul.Neb) 3 ml INHALE QID PRN PRN Reason: for dyspnea Last Admin: 05/13/23 04:19 Dose: 3 ml Apixaban (Apixaban 5 Mg Tablet) 5 mg PO BID [facility] Last Admin: 05/14/23 09:38 Dose: 5 mg Benzocaine (Throat Lozenge, Medicated Lozenge) 1 lozenge MUCOUS MEM Q2H PRN PRN Reason: Sore Throat Last Admin: 05/13/23 22:35 Dose: 1 lozenge Bumetanide (Bumetanide 1 Mg/4 Ml Vial) 1 mg IVPUSH BID@0900,1700 [facility]; Protocol Last Admin: 05/14/23 09:38 Dose: 1 mg Carvedilol (Carvedilol 6.25 Mg Tablet) 6.25 mg PO BID [facility]; Protocol Last Admin: 05/14/23 09:38 Dose: 6.25 mg Dextrose (Dextrose 50 % 25 Gm/50 Ml Syringe) 25 gm IVPUSH Q15M PRN; Protocol PRN Reason: per Hypoglycemia Standing Ord. Docusate Sodium (Docusate Sodium 100 Mg Capsule) 100 mg PO BID [facility] Last Admin: 05/14/23 09:38 Dose: 100 mg Doxycycline Monohydrate (Doxycycline Monohydrate 100 Mg Capsule) 100 mg PO BID [facility] Last Admin: 05/14/23 09:38 Dose: 100 mg Erythromycin (Erythromycin Base 0.5% Oph Oin 1 Gm Tube) 1.27 cm EYE-BOTH QID [facility] Last Admin: 05/14/23 10:15 Dose: 1.27 cm Glucose (Glucose Gel 15 Gm Gel..Gram.) 15 gm PO Q15M PRN; Protocol PRN Reason: per Hypoglycemia Standing Ord. Guaifenesin (Guaifenesin 100 Mg/5 Ml Liquid) 5 ml PO Q4H PRN PRN Reason: Cough Last Admin: 05/14/23 03:05 Dose: 5 ml Insulin Human Lispro (Insulin Lispro 100 Unit/Ml 3 Ml Vial) 0 unit SUBCUT QIDACHS [facility]; Protocol Last Admin: 05/14/23 08:02 Dose: Not Given Latanoprost (Latanoprost 0.005 % Ophth Thalia 2.5 Ml Drops) 1 drop EYE-RIGHT BEDTIME [facility] Last Admin: 05/13/23 22:44 Dose: Not Given Melatonin (Melatonin 3 Mg Tablet) 6 mg PO BEDTIME PRN PRN Reason: Insomnia Last Admin: 05/13/23 01:05 Dose: 6 mg Methylprednisolone Sodium Succinate (Methylprednisolone Sod Succ 40 Mg/Ml Vial) 40 mg IVPUSH Q12H [facility] Last Admin: 05/14/23 09:37 Dose: 40 mg Omeprazole (Omeprazole 40 Mg Capsule.Dr) 40 mg PO DAILY@0630 [facility] Last Admin: 05/14/23 05:07 Dose: 40 mg Ondansetron HCl (Ondansetron Hcl 4 Mg/2 Ml Vial) 4 mg IVPUSH Q8H PRN PRN Reason: Nausea and Vomiting Pravastatin Sodium (Pravastatin Sodium 10 Mg Tablet) 10 mg PO DAILY [facility] Last Admin: 05/14/23 09:38 Dose: 10 mg Sodium Chloride (0.9 % Sodium Chloride Flush 3 Ml Syringe) 3 ml IVFLUSH QSHIFT TON Last Admin: 05/14/23 09:38 Dose: 3 ml Home Medications Medication Instructions Recorded Confirmed Last Taken Type albuterol sulfate 90 mcg/actuation 2 puff inhalation Q4H PRN wheezing 03/09/23 05/11/23 Unknown History aerosol inhaler (Ventolin HFA) apixaban 5 mg tablet (Eliquis) 5 mg PO BID 03/09/23 05/11/23 03/08/23 History finasteride 5 mg tablet 5 mg PO DAILY 03/09/23 05/11/23 03/08/23 History lovastatin 10 mg tablet 10 mg PO DAILY 03/09/23 05/11/23 03/08/23 History metformin 500 mg tablet,extended 500 mg PO DAILY 03/09/23 05/11/23 03/08/23 History release 24 hr omeprazole 40 mg capsule,delayed 40 mg PO DAILY 03/09/23 05/11/23 03/08/23 History release sacubitril 24 mg-valsartan 26 mg 1 tab PO BID 03/09/23 05/11/23 03/08/23 History tablet (Entresto) travoprost 0.004 % eye drops 1 drp ophthalmic-Right BEDTIME 03/09/23 05/11/23 03/07/23 History bumetanide 1 mg tablet 1 mg PO DAILY 05/11/23 05/11/23 Unknown History Physical Exam 2 Vital Signs: Vital Signs: Last Vital Signs Temp 97.0 F 05/14/23 07:11 Pulse 96 05/14/23 07:11 Resp 20 05/14/23 08:21 BP 121/67 05/14/23 07:11 Pulse Ox 100 05/14/23 07:11 O2 Del Method High Flow Nasal C annula 05/14/23 07:11 O2 Flow Rate 40 05/14/23 07:11 FiO2 57 05/14/23 07:11 Oxygen Flow Rate 7 05/13/23 09:15 BMI result Body Mass Index 22.1 GENERAL APPEARANCE: Short of breath, on high-flow nasal cannula. NECK: no carotid bruit, no jugular venous distention. SKIN: no suspicious lesions, warm and dry. HEART: no murmurs, regular rate and rhythm. LUNGS: Bilateral crackles and rhonchi. ABDOMEN: soft, nontender. EXTREMITIES: no edema. PERIPHERAL PULSES: equal. NEUROLOGIC: No gross deficits, AAO X 3 Objective Labs and Meds 05/13/23 10:15 05/14/23 08:32 Lab results: Laboratory Results - last 24 hr 05/13/23 05/13/23 05/13/23 11:33 16:11 16:14 Hold Purple Top O2 Saturation 87.0 ABG pH at Pt Temp 7.44 ABG pCO2 at Pt Temp 45 ABG pO2 at Pt Temp 60 L ABG HCO3 31 H ABG Base Excess (Actual) 6.4 Sodium Potassium Chloride Carbon Dioxide Anion Gap BUN Creatinine Estim Creat Clear Calc Estimated GFR POC Glucose 200 H 153 H Random Glucose Calcium 05/13/23 05/14/23 05/14/23 21:04 07:45 08:32 Hold Purple Top SEE NOTE O2 Saturation ABG pH at Pt Temp ABG pCO2 at Pt Temp ABG pO2 at Pt Temp ABG HCO3 ABG Base Excess (Actual) Sodium 136 Potassium 3.8 Chloride 96 Carbon Dioxide 33 H Anion Gap 11 L BUN 19 H Creatinine 0.60 Estim Creat Clear Calc 83.7 Estimated GFR > 60 POC Glucose 222 H 138 H Random Glucose 169 H Calcium 8.7 D Assessment and Plan (1) Acute and chronic respiratory failure with hypoxia: Status: Acute (2) Influenza A: Status: Acute (3) Congestive heart failure: Qualifiers: Heart failure type: systolic Heart failure chronicity: chronic Qualified Code(s): I50.22 - Chronic systolic (congestive) heart failure Status: Acute Plan Pleasant 82-year-old gentleman with multiple comorbidities who presented with shortness of breath and respiratory failure in setting of influenza A. He was being treated with doxycycline and steroids. Overnight had worsening shortness of breath and was diuresed and is currently on high-flow nasal cannula. Chest x-ray has shown worsening infiltrates which could be bilateral pneumonia versus congestive heart failure. His BNP has increased from 30-171. I agree with IV diuretics currently. He should have repeat chest x-ray tomorrow. If despite negative balance his chest x-ray does not improve then there is definitely more infection then fluid currently. In that situation with influenza a being positive he should be covered for staph aureus. He also had ESBL in the past. We will follow along with you. Thank you for allowing me to participate in the care of your patient. Please feel free to contact me if you have any questions. Procedures Date of Service Date of Service: 05/14/23
--- NOTE | 2023-05-14 11:43 | MHC.CM.PN ---
PT W/ACUTE/CHRONIC HYPOXIC RESP FAILURE AND COPD EXAC NOW IN CHF (OVER W/E), PT NOW HI FLOW O2 AND ON IV BUMEX BID AND IV SOLU-MEDROL, CM WILL CONT TO FOLLOW DC NEEDS.
[2023-05-14 11:49] LABS: Glucose, Whole Blood 188 mg/dL (60-115)
[2023-05-14] MEDS: Insulin Lispro 100 UNIT/ML 3 ML VIAL SUBCUT ×3 (12:18→20:47)
--- NOTE | 2023-05-14 14:21 | P.PNPL_ITS ---
Subjective Subjective Date of Service: 05/14/23 Interval history: Respiratory status improved with diuresis. FiO2 requirement improved. Objective Data Labs 05/13/23 10:15 05/14/23 08:32 Labs: Laboratory Results - last 24 hr 05/13/23 05/13/23 05/13/23 16:11 16:14 21:04 Hold Purple Top O2 Saturation 87.0 ABG pH at Pt Temp 7.44 ABG pCO2 at Pt Temp 45 ABG pO2 at Pt Temp 60 L ABG HCO3 31 H ABG Base Excess (Actual) 6.4 Sodium Potassium Chloride Carbon Dioxide Anion Gap BUN Creatinine Estim Creat Clear Calc Estimated GFR POC Glucose 153 H 222 H Random Glucose Calcium 05/14/23 05/14/23 05/14/23 07:45 08:32 11:42 Hold Purple Top SEE NOTE O2 Saturation ABG pH at Pt Temp ABG pCO2 at Pt Temp ABG pO2 at Pt Temp ABG HCO3 ABG Base Excess (Actual) Sodium 136 Potassium 3.8 Chloride 96 Carbon Dioxide 33 H Anion Gap 11 L BUN 19 H Creatinine 0.60 Estim Creat Clear Calc 83.7 Estimated GFR > 60 POC Glucose 138 H 188 H Random Glucose 169 H Calcium 8.7 D Microbiology Microbiology Results: Microbiology 05/11/23 09:56 Blood - Venous Blood Culture - Preliminary No growth after 48 hours. 05/11/23 09:48 Blood - Venous Blood Culture - Preliminary No growth after 48 hours. 05/11/23 Unknown Urine clean catch - Urine swanson top Urine Culture - Final Escherichia coli Physical Exam 2 Vital Signs: Vital Signs: Last Vital Signs Temp 97.0 F 05/14/23 07:11 Pulse 96 05/14/23 07:11 Resp 20 05/14/23 14:16 BP 121/67 05/14/23 07:11 Pulse Ox 100 05/14/23 07:11 O2 Del Method High Flow Nasal C annula 05/14/23 07:11 O2 Flow Rate 40 05/14/23 07:11 FiO2 57 05/14/23 07:11 Oxygen Flow Rate 7 05/13/23 09:15 BMI result Body Mass Index 22.1 Const: General: no acute distress, alert and awake Eyes: Sclerae: sclerae normal EOM: EOMs intact bilaterally Neck: Neck: Yes no lymphadenopathy, Yes trachea midline and Yes supple Resp: Effort & Inspection: normal respiratory effort and no respiratory distress Auscultation: clear to auscultation bilaterally Cardio: Rate: regular rate Rhythm: regular rhythm Heart sounds: no gallops, no murmurs and no rubs GI: Palpation (GI): Soft to palpation and Other GI palpation findings present ( Nontender) Auscultation: normal bowel sounds Extrem: General: Yes no pedal edema, No clubbing and No cyanosis Procedures Date of Service Date of Service: 05/14/23 Assessment and Plan Assessment and plan (1) Acute and chronic respiratory failure with hypoxia: Status: Acute (2) Influenza A: Status: Acute (3) COPD (chronic obstructive pulmonary disease): Status: Acute (4) Bronchiectasis: Status: Acute Plan Impression: 82-year-old gentleman with underlying advanced COPD, bronchiectasis, chronic hypoxic respiratory failure on 2 L of supplemental oxygen now admitted with influenza A and ESBL E.Coli UTI. Respiratory status wprsened overnight with increase on I/O of ~3L. Recommendations: Meropenem for history of ESBL organisms for UTI and ?post influenza pneumonia. Continue Anoro, duo nebs, and Tamiflu. Consider continuing judiciois diuresis with colloidal support until back to home level of FiO2. Time Spent With Patient Time: Total time managing care of this patient today ____ minutes. Progress Note: Quality Stroke Does the patient have a stroke diagnosis?: No
[2023-05-14 16:01] LABS: Glucose, Whole Blood 242 mg/dL (60-115)
[2023-05-14] MEDS: Acetaminophen 325 MG TABLET 650 MG PO (19:40)
[2023-05-14] MEDS: Melatonin 3 MG TABLET 6 MG PO (19:40)
[2023-05-14 20:26] LABS: Glucose, Whole Blood 300 mg/dL (60-115)
[2023-05-15] VITALS (8 sets, daily range): BP systolic 99–122; BP diastolic 50–64; PULSE 79–92; RESP 16–20; TEMP 36.3–36.8; O2SAT 91–100
[2023-05-15] MEDS: Omeprazole 40 MG CAPSULE.DR PO (05:40)
[2023-05-15 07:06] LABS: Glucose, Whole Blood 203 mg/dL (60-115)
[2023-05-15] MEDS: Docusate Sodium 100 MG CAPSULE PO ×2 (08:35→20:42)
[2023-05-15] MEDS: carvediloL 6.25 MG TABLET PO ×2 (08:35→20:42)
[2023-05-15] MEDS: Doxycycline Monohydrate 100 MG CAPSULE PO ×2 (08:35→20:42)
[2023-05-15] MEDS: Apixaban 5 MG TABLET PO ×2 (08:35→20:42)
[2023-05-15] MEDS: Bumetanide 1 MG/4 ML VIAL IVPUSH ×2 (08:35→17:17)
[2023-05-15] MEDS: Pravastatin Sodium 10 MG TABLET PO (08:35)
[2023-05-15] MEDS: Insulin Lispro 100 UNIT/ML 3 ML VIAL SUBCUT ×4 (08:35→20:57)
[2023-05-15] MEDS: 0.9 % Sodium Chloride Flush 3 ML SYRINGE IVFLUSH ×2 (08:35→17:18)
[2023-05-15] MEDS: methylPREDNISolone Sod Succ 40 MG/ML VIAL IVPUSH ×2 (08:35→20:57)
[2023-05-15] MEDS: Erythromycin Base 0.5% Oph Oin 1 GM TUBE 1.27 CM EYE-BOTH ×4 (08:37→20:42)
[2023-05-15 09:17] LABS: Hemoglobin 8.4 g/dl (14.0-18.0); Mean Corpuscular Hemoglobin 22.8 pg (27.0-33.0); Mean Corpuscular Volume 76.1 fL (80.0-98.0); Mean Platelet Volume 10.3 fL (9.4-12.4); Platelet Count 268 X10*3/uL (160-400); Red Blood Count 3.68 X10*6/uL (4.60-5.80); Red Cell Distribution Width 16.7 % (11.0-16.0); White Blood Count 9.7 X10*3/uL (4.8-10.8)
[2023-05-15 09:22] LABS: Anion Gap 10 (12-20); Blood Urea Nitrogen 26 mg/dL (9-16); Calcium 8.9 mg/dL (8.4-10.2); Carbon Dioxide 38 mmol/L (22-29); Chloride 92 mmol/L (96-108); Creatinine Clr Calc Pharmacy 73.8; Estimated Glomerular Filt Rate > 60; Glucose Random 227 mg/dL (60-115); Potassium 3.7 mmol/L (3.3-5.1); Sodium 136 mmol/L (135-145)
[2023-05-15] MEDS: Sacubitril/Valsartan 24/26 1 TAB TABLET PO ×2 (09:33→20:42)
--- NOTE | 2023-05-15 10:35 | HO.PM.IMPN ---
Subjective Subjective Date of Service: 05/15/23 Interval History: f/u on sob, recent ESBL PNA treatment and recent flu and now ESBL E. coli UTI and acute on chronic heart failure resulting in acute hypoxcic respiratory failure requiring hiflow. He is weaning off Physical Exam Vital Signs: Vital Signs: Last Vital Signs Temp 97.5 F 05/15/23 07:22 Pulse 81 05/15/23 08:33 Resp 17 05/15/23 08:11 BP 122/64 05/15/23 08:33 Pulse Ox 100 05/15/23 08:33 O2 Del Method High Flow Nasal C annula 05/15/23 07:22 O2 Flow Rate 35 05/15/23 07:22 FiO2 55 05/15/23 07:22 Oxygen Flow Rate 7 05/13/23 09:15 BMI result Body Mass Index 22.1 General: AO X 3, no acute distress Resp: bilatera rales, normal respiatory effort CVS: S1,S2,RRR GI: +BS, NT, no distention Skin: No rash Neuro: motor grossly intact Psych: appropriate affect Const: Other: General: AO X 3, no acute distress Resp: CTA bilateral CVS: S1,S2,RRR GI: +BS, NT, no distention Skin: No rash Neuro: motor grossly intact Psych: appropriate affect Objective Data Active Medications Acetaminophen (Acetaminophen 325 Mg Tablet) 650 mg PO Q6H PRN PRN Reason: Pain, Mild (Pain Scale 1-3) Last Admin: 05/14/23 19:40 Dose: 650 mg Documented By: MELIA Albuterol Sulfate (Albuterol Sulfate 90 Mcg 8 Gm Inhaler) 2 puff INHALE Q4H PRN PRN Reason: wheezing Albuterol/Ipratropium (Albuterol/Iprat 2.5/0.5mg 3 Ml Ampul.Neb) 3 ml INHALE QID PRN PRN Reason: for dyspnea Last Admin: 05/13/23 04:19 Dose: 3 ml Documented By: KENNY Apixaban (Apixaban 5 Mg Tablet) 5 mg PO BID TON Last Admin: 05/15/23 08:35 Dose: 5 mg Documented By: SCAR Benzocaine (Throat Lozenge, Medicated Lozenge) 1 lozenge MUCOUS MEM Q2H PRN PRN Reason: Sore Throat Last Admin: 05/13/23 22:35 Dose: 1 lozenge Documented By: MELIA Bumetanide (Bumetanide 1 Mg/4 Ml Vial) 1 mg IVPUSH BID@0900,1700 [facility]; Protocol Last Admin: 05/15/23 08:35 Dose: 1 mg Documented By: SCAR Carvedilol (Carvedilol 6.25 Mg Tablet) 6.25 mg PO BID [facility]; Protocol Last Admin: 05/15/23 08:35 Dose: 6.25 mg Documented By: SCAR Dextrose (Dextrose 50 % 25 Gm/50 Ml Syringe) 25 gm IVPUSH Q15M PRN; Protocol PRN Reason: per Hypoglycemia Standing Ord. Docusate Sodium (Docusate Sodium 100 Mg Capsule) 100 mg PO BID [facility] Last Admin: 05/15/23 08:35 Dose: 100 mg Documented By: SCAR Doxycycline Monohydrate (Doxycycline Monohydrate 100 Mg Capsule) 100 mg PO BID [facility] Last Admin: 05/15/23 08:35 Dose: 100 mg Documented By: SCAR Erythromycin (Erythromycin Base 0.5% Oph Oin 1 Gm Tube) 1.27 cm EYE-BOTH QID [facility] Last Admin: 05/15/23 08:37 Dose: 1.27 cm Documented By: SCAR Glucose (Glucose Gel 15 Gm Gel..Gram.) 15 gm PO Q15M PRN; Protocol PRN Reason: per Hypoglycemia Standing Ord. Guaifenesin (Guaifenesin 100 Mg/5 Ml Liquid) 5 ml PO Q4H PRN PRN Reason: Cough Last Admin: 05/14/23 19:40 Dose: 5 ml Documented By: MELIA Insulin Human Lispro (Insulin Lispro 100 Unit/Ml 3 Ml Vial) 0 unit SUBCUT QIDACHS [facility]; Protocol Last Admin: 05/15/23 08:35 Dose: 4 unit Documented By: SCAR Latanoprost (Latanoprost 0.005 % Ophth Thalia 2.5 Ml Drops) 1 drop EYE-RIGHT BEDTIME [facility] Last Admin: 05/14/23 23:11 Dose: Not Given Documented By: MELIA Non-Admin Reason: Med Not Available Melatonin (Melatonin 3 Mg Tablet) 6 mg PO BEDTIME PRN PRN Reason: Insomnia Last Admin: 05/14/23 19:40 Dose: 6 mg Documented By: MELIA Methylprednisolone Sodium Succinate (Methylprednisolone Sod Succ 40 Mg/Ml Vial) 40 mg IVPUSH Q12H [facility] Last Admin: 05/15/23 08:35 Dose: 40 mg Documented By: SCAR Omeprazole (Omeprazole 40 Mg Capsule.Dr) 40 mg PO DAILY@0630 [facility] Last Admin: 05/15/23 05:40 Dose: 40 mg Documented By: MELIA Ondansetron HCl (Ondansetron Hcl 4 Mg/2 Ml Vial) 4 mg IVPUSH Q8H PRN PRN Reason: Nausea and Vomiting Pravastatin Sodium (Pravastatin Sodium 10 Mg Tablet) 10 mg PO DAILY [facility] Last Admin: 05/15/23 08:35 Dose: 10 mg Documented By: SCAR Sacubitril/Valsartan (Sacubitril/Valsartan 1 Tab Tablet) 1 tab PO BID [facility]; Protocol Last Admin: 05/15/23 09:33 Dose: 1 tab Documented By: SCAR Sodium Chloride (0.9 % Sodium Chloride Flush 3 Ml Syringe) 3 ml IVFLUSH QSHIFT [facility] Last Admin: 05/15/23 08:35 Dose: 3 ml Documented By: SCAR Labs 05/15/23 09:03 05/15/23 09:03 Labs: Laboratory Results - last 24 hr 05/14/23 05/14/23 05/14/23 11:42 15:57 20:20 MCV MCH MCHC RDW Plt Count MPV Absolute Nucleated RBC Nucleated RBC % (auto) Anion Gap Estim Creat Clear Calc Estimated GFR POC Glucose 188 H 242 H 300 H Random Glucose Calcium 05/15/23 05/15/23 07:02 09:03 MCV 76.1 L MCH 22.8 L MCHC 30.0 L RDW 16.7 H Plt Count 268 MPV 10.3 Absolute Nucleated RBC 0.000 Nucleated RBC % (auto) 0.0 Anion Gap 10 L Estim Creat Clear Calc 73.8 Estimated GFR > 60 POC Glucose 203 H Random Glucose 227 H Calcium 8.9 Assessment and Plan (1) Acute and chronic respiratory failure with hypoxia: Status: Acute Plan Pt is a 82-year-old male with a PMH significant for?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, bronchiectases, ESBL pneumonia, JESSA, HFrEF, nonischemic cardiomyopathy, paroxysmal AFib on Eliquis, HTN, HLD, [id number] diabetes type 2, GERD, BPH, hx nephrolithiasis, and lumbar degenerative disc disease who presents to the ED with?SOB, WRIGHT, fatigue, and productive cough. Pt will be admitted to the hospital for treatment and further evaluation of acute on chronic hypoxic respiratory failure in the setting of recurrent pneumonia and COPD exacerbation in a patient with hx of ESBL pneumonia. Acute hypoxic respiratory failure d/t pulmomonary edema, he is diuressed with IV Lasix with good effect with good effect, yet remains on hiflow continue IV Bumex, follow i/o, wean off high flow, echo today, continue coreg, entresto, repeat CXR and wean off hiflow COPD exacerbation--bronchodilators by Neb, IV steroid. Depression--he reported stated last night that he wants to and has sitter, CARE team consult, I don't believe he intends to harm himself ESBL E.coli PNA--Previously treated ESBL E. coli UTI -Meropenem -ID following -WBC back to normal Influenza infection-- Tamiflu Left eye pain/reduced vision/white substance Contact [facility] who report pt had two recent complicated, unsuccessful cataract surgeries Has so far failed at replacing patient's left eye lens White substance in eye is a Kenalog injection to reduce edema Per ophthalmology recommendations, can use erythromycin ointment and systolic analgesics for pain management Patient should follow-up outpatient with Ophthalmology Nonischemic cardiomyopathy Continue carvedilol resume Entresto now that BP is beter Paroxysmal AFib Continue Eliquis Xpt-bqghdmw-iqoywkyuy diabetes type 2 resume metformin, SSI Diabetic diet Full Code Attending:?Dr. Bourgeois DVT Prophylaxis: On Eliquis need for inpt: copd exacergation with hypoxia Ongoing hospitalization for acute hypoxic resp failure, pulmonary edema needing IV diuretics and close monitoring Quality Stroke Does the patient have a stroke diagnosis?: No VTE Prior VTE?: No VTE Risk Level:: Medical - moderate - high VTE Device Contraindication: Treatment Not Indicated VTE Drug Contraindication: N/A - Med Ordered
[2023-05-15 11:00] LABS: Glucose, Whole Blood 280 mg/dL (60-115)
--- NOTE | 2023-05-15 16:08 | P.PNPL_ITS ---
Subjective Subjective Date of Service: 05/15/23 Interval history: Respiratory status and FiO2 requirements continue to improve Objective Data Labs 05/15/23 09:03 05/15/23 09:03 Labs: Laboratory Results - last 24 hr 05/14/23 05/15/23 05/15/23 20:20 07:02 09:03 WBC 9.7 RBC 3.68 L Hgb 8.4 L Hct 28.0 L MCV 76.1 L MCH 22.8 L MCHC 30.0 L RDW 16.7 H Plt Count 268 MPV 10.3 Absolute Nucleated RBC 0.000 Nucleated RBC % (auto) 0.0 Sodium 136 Potassium 3.7 Chloride 92 L Carbon Dioxide 38 H Anion Gap 10 L BUN 26 H Creatinine 0.68 Estim Creat Clear Calc 73.8 Estimated GFR > 60 POC Glucose 300 H 203 H Random Glucose 227 H Calcium 8.9 05/15/23 10:56 WBC RBC Hgb Hct MCV MCH MCHC RDW Plt Count MPV Absolute Nucleated RBC Nucleated RBC % (auto) Sodium Potassium Chloride Carbon Dioxide Anion Gap BUN Creatinine Estim Creat Clear Calc Estimated GFR POC Glucose 280 H Random Glucose Calcium Microbiology Microbiology Results: Microbiology 05/11/23 09:56 Blood - Venous Blood Culture - Preliminary No growth after 48 hours. 05/11/23 09:48 Blood - Venous Blood Culture - Preliminary No growth after 48 hours. 05/11/23 Unknown Urine clean catch - Urine swanson top Urine Culture - Final Escherichia coli Physical Exam 2 Vital Signs: Vital Signs: Last Vital Signs Temp 97.8 F 05/15/23 15:49 Pulse 83 05/15/23 15:49 Resp 20 05/15/23 15:49 BP 99/50 L 05/15/23 15:49 Pulse Ox 92 05/15/23 15:49 O2 Del Method High Flow Nasal C annula 05/15/23 15:49 O2 Flow Rate 35 05/15/23 15:49 FiO2 35 05/15/23 15:49 Oxygen Flow Rate 7 05/13/23 09:15 BMI result Body Mass Index 22.1 Const: General: no acute distress, alert and awake Eyes: Sclerae: sclerae normal EOM: EOMs intact bilaterally Neck: Neck: Yes no lymphadenopathy, Yes trachea midline and Yes supple Resp: Effort & Inspection: normal respiratory effort and no respiratory distress Auscultation: clear to auscultation bilaterally Cardio: Rate: regular rate Rhythm: regular rhythm Heart sounds: no gallops, no murmurs and no rubs GI: Palpation (GI): Soft to palpation and Other GI palpation findings present ( Nontender) Auscultation: normal bowel sounds Extrem: General: Yes no pedal edema, No clubbing and No cyanosis Procedures Date of Service Date of Service: 05/15/23 Assessment and Plan Assessment and plan (1) Acute and chronic respiratory failure with hypoxia: Status: Acute (2) Influenza A: Status: Acute (3) COPD (chronic obstructive pulmonary disease): Status: Acute (4) Bronchiectasis: Status: Acute Plan Impression: 82-year-old gentleman with underlying advanced COPD, bronchiectasis, chronic hypoxic respiratory failure on 2 L of supplemental oxygen now admitted with influenza A and ESBL E.Coli UTI. Respiratory status improved with diuresis. Recommendations: Meropenem for history of ESBL organisms for UTI and ?post influenza pneumonia. Continue Anoro, duo nebs, and Tamiflu. In terms of his respiratory status patient appears to be close to his baseline at this time. Time Spent With Patient Time: Total time managing care of this patient today ____ minutes. Progress Note: Quality Stroke Does the patient have a stroke diagnosis?: No
[2023-05-15 16:59] LABS: Glucose, Whole Blood 314 mg/dL (60-115)
[2023-05-15 20:10] LABS: Glucose, Whole Blood 257 mg/dL (60-115)
[2023-05-15] MEDS: Latanoprost 0.005 % Ophth Sol 2.5 ML DROPS 1 DROP EYE-RIGHT (20:42)
[2023-05-15] MEDS: guaiFENesin 100 MG/5 ML LIQUID PO (20:53)
[2023-05-16] VITALS (9 sets, daily range): BP systolic 103–127; BP diastolic 56–65; PULSE 74–120; RESP 18–28; TEMP 36.1–36.7; O2SAT 89–94
[2023-05-16] MEDS: 0.9 % Sodium Chloride Flush 3 ML SYRINGE IVFLUSH ×4 (01:19→21:01)
[2023-05-16] MEDS: Melatonin 3 MG TABLET 6 MG PO ×2 (01:33→22:32)
[2023-05-16] MEDS: guaiFENesin 100 MG/5 ML LIQUID PO ×3 (03:26→14:58)
[2023-05-16] MEDS: Acetaminophen 325 MG TABLET 650 MG PO (05:09)
[2023-05-16] MEDS: Omeprazole 40 MG CAPSULE.DR PO (05:11)
[2023-05-16 06:17] LABS: Anion Gap 12 (12-20); Blood Urea Nitrogen 28 mg/dL (9-16); Calcium 9.1 mg/dL (8.4-10.2); Carbon Dioxide 41 mmol/L (22-29); Chloride 89 mmol/L (96-108); Creatinine Clr Calc Pharmacy 70.7; Estimated Glomerular Filt Rate > 60; Glucose Random 221 mg/dL (60-115); Potassium 4.1 mmol/L (3.3-5.1); Sodium 138 mmol/L (135-145)
[2023-05-16 07:02] LABS: Glucose, Whole Blood 195 mg/dL (60-115)
[2023-05-16] MEDS: Erythromycin Base 0.5% Oph Oin 1 GM TUBE 1.27 CM EYE-BOTH ×4 (08:46→20:58)
[2023-05-16] MEDS: Doxycycline Monohydrate 100 MG CAPSULE PO ×2 (08:46→20:57)
[2023-05-16] MEDS: Apixaban 5 MG TABLET PO ×2 (08:46→20:57)
[2023-05-16] MEDS: Sacubitril/Valsartan 24/26 1 TAB TABLET PO ×2 (08:46→20:56)
[2023-05-16] MEDS: Insulin Lispro 100 UNIT/ML 3 ML VIAL SUBCUT ×3 (08:47→16:54)
[2023-05-16] MEDS: Bumetanide 1 MG/4 ML VIAL 0.5 MG IVPUSH (08:47)
[2023-05-16] MEDS: carvediloL 6.25 MG TABLET PO ×2 (08:48→18:49)
[2023-05-16] MEDS: Pravastatin Sodium 10 MG TABLET PO (08:48)
[2023-05-16] MEDS: Docusate Sodium 100 MG CAPSULE PO ×2 (08:48→20:56)
[2023-05-16] MEDS: methylPREDNISolone Sod Succ 40 MG/ML VIAL IVPUSH ×2 (08:49→21:00)
[2023-05-16] MEDS: acetaZOLAMIDE 250 MG TABLET PO ×2 (08:50→20:57)
--- NOTE | 2023-05-16 09:28 | HO.PM.IMPN ---
Subjective Subjective Date of Service: 05/16/23 Interval History: Seen and evaluated this morning Feels better overall denies any fever or chills O2 supplement down to 3L NC Review of Systems Review of Systems: Yes all other systems are reviewed and are negative Physical Exam Vital Signs: Vital Signs: Last Vital Signs Temp 97.9 F 05/16/23 07:19 Pulse 91 05/16/23 07:19 Resp 20 05/16/23 07:19 BP 103/58 L 05/16/23 07:19 Pulse Ox 89 L 05/16/23 07:19 O2 Del Method Nasal Cannula 05/16/23 07:19 O2 Flow Rate 3 05/16/23 07:19 FiO2 35 05/15/23 15:49 Oxygen Flow Rate 7 05/13/23 09:15 BMI result Body Mass Index 22.1 Const: Other: Constitutional : Awake, interactive, not in distress Neck : Normal inspection, Supple Cardiovascular : RRR, no JVP, no lower extremity edema Respiratory : fair bilateral air entry, no significant crackles, wheezes or rhonchi Gastrointestinal: soft, lax, Normal bowel sounds, Non tender Skin : Warm, Dry Neurological : Alert & oriented x3, No focal deficit Objective Data Active Medications Acetaminophen (Acetaminophen 325 Mg Tablet) 650 mg PO Q6H PRN PRN Reason: Pain, Mild (Pain Scale 1-3) Last Admin: 05/16/23 05:09 Dose: 650 mg Documented By: JADIEL Acetazolamide (Acetazolamide 250 Mg Tablet) 250 mg PO BID [facility] Last Admin: 05/16/23 08:50 Dose: 250 mg Documented By: MICHELLE Albuterol Sulfate (Albuterol Sulfate 90 Mcg 8 Gm Inhaler) 2 puff INHALE Q4H PRN PRN Reason: wheezing Albuterol/Ipratropium (Albuterol/Iprat 2.5/0.5mg 3 Ml Ampul.Neb) 3 ml INHALE QID PRN PRN Reason: for dyspnea Last Admin: 05/13/23 04:19 Dose: 3 ml Documented By: KENNY Apixaban (Apixaban 5 Mg Tablet) 5 mg PO BID [facility] Last Admin: 05/16/23 08:46 Dose: 5 mg Documented By: MICHELLE Benzocaine (Throat Lozenge, Medicated Lozenge) 1 lozenge MUCOUS MEM Q2H PRN PRN Reason: Sore Throat Last Admin: 05/13/23 22:35 Dose: 1 lozenge Bumetanide (Bumetanide 1 Mg/4 Ml Vial) 0.5 mg IVPUSH BID@0900,1700 [facility]; Protocol Last Admin: 05/16/23 08:47 Dose: 0.5 mg Documented By: MICHELLE Carvedilol (Carvedilol 6.25 Mg Tablet) 6.25 mg PO BID [facility]; Protocol Last Admin: 05/16/23 08:48 Dose: 6.25 mg Documented By: MICHELLE Dextrose (Dextrose 50 % 25 Gm/50 Ml Syringe) 25 gm IVPUSH Q15M PRN; Protocol PRN Reason: per Hypoglycemia Standing Ord. Docusate Sodium (Docusate Sodium 100 Mg Capsule) 100 mg PO BID [facility] Last Admin: 05/16/23 08:48 Dose: 100 mg Documented By: MICHELLE Doxycycline Monohydrate (Doxycycline Monohydrate 100 Mg Capsule) 100 mg PO BID [facility] Last Admin: 05/16/23 08:46 Dose: 100 mg Documented By: MICHELLE Erythromycin (Erythromycin Base 0.5% Oph Oin 1 Gm Tube) 1.27 cm EYE-BOTH QID [facility] Last Admin: 05/16/23 08:46 Dose: 1.27 cm Documented By: MICHELLE Glucose (Glucose Gel 15 Gm Gel..Gram.) 15 gm PO Q15M PRN; Protocol PRN Reason: per Hypoglycemia Standing Ord. Guaifenesin (Guaifenesin 100 Mg/5 Ml Liquid) 5 ml PO Q4H PRN PRN Reason: Cough Last Admin: 05/16/23 08:44 Dose: 5 ml Documented By: MICHELLE Insulin Human Lispro (Insulin Lispro 100 Unit/Ml 3 Ml Vial) 0 unit SUBCUT QIDACHS [facility]; Protocol Last Admin: 05/16/23 08:47 Dose: 2 unit Documented By: MICHELLE Latanoprost (Latanoprost 0.005 % Ophth Thalia 2.5 Ml Drops) 1 drop EYE-RIGHT BEDTIME [facility] Last Admin: 05/15/23 20:42 Dose: 1 drop Documented By: ADONIS Melatonin (Melatonin 3 Mg Tablet) 6 mg PO BEDTIME PRN PRN Reason: Insomnia Last Admin: 05/16/23 01:33 Dose: 6 mg Documented By: JADIEL Methylprednisolone Sodium Succinate (Methylprednisolone Sod Succ 40 Mg/Ml Vial) 40 mg IVPUSH Q12H [facility] Last Admin: 05/16/23 08:49 Dose: 40 mg Documented By: MICHELLE Omeprazole (Omeprazole 40 Mg Capsule.Dr) 40 mg PO DAILY@0630 [facility] Last Admin: 05/16/23 05:11 Dose: 40 mg Documented By: JADIEL Ondansetron HCl (Ondansetron Hcl 4 Mg/2 Ml Vial) 4 mg IVPUSH Q8H PRN PRN Reason: Nausea and Vomiting Pravastatin Sodium (Pravastatin Sodium 10 Mg Tablet) 10 mg PO DAILY [facility] Last Admin: 05/16/23 08:48 Dose: 10 mg Documented By: MICHELLE Sacubitril/Valsartan (Sacubitril/Valsartan 1 Tab Tablet) 1 tab PO BID [facility]; Protocol Last Admin: 05/16/23 08:46 Dose: 1 tab Documented By: MICHELLE Sodium Chloride (0.9 % Sodium Chloride Flush 3 Ml Syringe) 3 ml IVFLUSH QSHIFT [facility] Last Admin: 05/16/23 08:47 Dose: 3 ml Documented By: MICHELLE Labs 05/15/23 09:03 05/16/23 05:29 Labs: Laboratory Results - last 24 hr 05/15/23 05/15/23 05/15/23 10:56 15:52 20:04 Hold Purple Top Anion Gap Estim Creat Clear Calc Estimated GFR POC Glucose 280 H 314 H 257 H Random Glucose Calcium 05/16/23 05/16/23 05:29 06:57 Hold Purple Top SEE NOTE Anion Gap 12 Estim Creat Clear Calc 70.7 Estimated GFR > 60 POC Glucose 195 H Random Glucose 221 H Calcium 9.1 Assessment and Plan (1) UTI due to extended-spectrum beta lactamase (ESBL) producing Escherichia coli: Status: Acute (2) Acute and chronic respiratory failure with hypoxia: Status: Acute (3) Community acquired pneumonia: Status: Acute Plan Pt is a 82-year-old male with a PMH significant for?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 Pt will be admitted to the hospital for treatment and further evaluation of acute on chronic hypoxic respiratory failure in the setting of recurrent pneumonia and COPD exacerbation in a patient with hx of ESBL pneumonia. Acute hypoxic respiratory failure d/t pulmomonary edema, diuressed with IV Lasix with good effect with good effect, DC IV Bumex, start PO, follow i/o, echopending continue coreg, entresto, repeat CXR and wean down as tolerated DC Schwarz contraction alkalosis Bicarb of 41 DC IV Bumex, start PO follow BMP COPD exacerbation bronchodilators by Neb, IV steroid. Depression reported he stated that he wants to and had a sitter, CARE team consulted denies any intent to harm himself Post viral pneumonia Hx ESBL E.coli PNA - Previously treated ESBL E. coli UTI Was on Meropenem ID input appreciated; Po Doxycycline Influenza infection Tamiflu Left eye pain/reduced vision/white substance Contact [facility] who report pt had two recent complicated, unsuccessful cataract surgeries Has so far failed at replacing patient's left eye lens White substance in eye is a Kenalog injection to reduce edema Per ophthalmology recommendations, can use erythromycin ointment and systolic analgesics for pain management Patient should follow-up outpatient with Ophthalmology Nonischemic cardiomyopathy Continue carvedilol resume Entresto now that BP is beter Paroxysmal AFib Continue Eliquis Dgv-gybfnsr-ljpecdpts diabetes type 2 resume metformin, SSI Diabetic diet Physical deconditioning PT rec SNF Full Code DVT Prophylaxis: On Eliquis need for inpt: copd exacergation with hypoxia Ongoing hospitalization for acute hypoxic resp failure, pulmonary edema needing IV diuretics and close monitoring with sNF placement Quality Stroke Does the patient have a stroke diagnosis?: No VTE Prior VTE?: No VTE Risk Level:: Medical - moderate - high VTE Device Contraindication: Treatment Not Indicated VTE Drug Contraindication: N/A - Med Ordered
[2023-05-16] MEDS: guaiFENesin LA 600 MG TAB.ER.12H PO ×2 (10:35→20:57)
[2023-05-16 11:01] LABS: Glucose, Whole Blood 311 mg/dL (60-115)
[2023-05-16] MEDS: Albuterol/Iprat 2.5/0.5MG 3 ML AMPUL.NEB INHALE ×2 (13:07→16:09)
--- NOTE | 2023-05-16 14:00 | MHC.CM.PN ---
CM met with pt to ask if he is willing to go to [facility], he agreed, and said he wanted me to discuss with his daughter who will be here later. CM will look for daughter. Referrals out to [facility] SNFs, accepted at [facility]. CM to continue to follow and assist with DC plan.
--- NOTE | 2023-05-16 14:41 | P.PNPL_ITS ---
Subjective Subjective Date of Service: 05/16/23 Interval history: Respiratory status improved to baseline. Objective Data Labs 05/15/23 09:03 05/16/23 05:29 Labs: Laboratory Results - last 24 hr 05/15/23 05/15/23 05/16/23 15:52 20:04 05:29 Hold Purple Top SEE NOTE Sodium 138 Potassium 4.1 Chloride 89 L Carbon Dioxide 41 H* Anion Gap 12 BUN 28 H Creatinine 0.71 Estim Creat Clear Calc 70.7 Estimated GFR > 60 POC Glucose 314 H 257 H Random Glucose 221 H Calcium 9.1 05/16/23 05/16/23 06:57 10:58 Hold Purple Top Sodium Potassium Chloride Carbon Dioxide Anion Gap BUN Creatinine Estim Creat Clear Calc Estimated GFR POC Glucose 195 H 311 H Random Glucose Calcium Microbiology Microbiology Results: Microbiology 05/11/23 09:56 Blood - Venous Blood Culture - Final No growth after 5 days. 05/11/23 09:48 Blood - Venous Blood Culture - Final No growth after 5 days. 05/11/23 Unknown Urine clean catch - Urine swanson top Urine Culture - Final Escherichia coli Physical Exam 2 Vital Signs: Vital Signs: Last Vital Signs Temp 97.9 F 05/16/23 07:19 Pulse 91 05/16/23 07:19 Resp 20 05/16/23 07:19 BP 103/58 L 05/16/23 07:19 Pulse Ox 89 L 05/16/23 07:19 O2 Del Method Nasal Cannula 05/16/23 07:19 O2 Flow Rate 3 05/16/23 07:19 FiO2 35 05/15/23 15:49 Oxygen Flow Rate 7 05/13/23 09:15 BMI result Body Mass Index 22.1 Const: General: no acute distress, alert and awake Eyes: Sclerae: sclerae normal EOM: EOMs intact bilaterally Neck: Neck: Yes no lymphadenopathy, Yes trachea midline and Yes supple Resp: Effort & Inspection: normal respiratory effort and no respiratory distress Auscultation: clear to auscultation bilaterally Cardio: Rate: regular rate Rhythm: regular rhythm Heart sounds: no gallops, no murmurs and no rubs GI: Palpation (GI): Soft to palpation and Other GI palpation findings present ( Nontender) Auscultation: normal bowel sounds Extrem: General: Yes no pedal edema, No clubbing and No cyanosis Procedures Date of Service Date of Service: 05/16/23 Assessment and Plan Assessment and plan (1) Acute and chronic respiratory failure with hypoxia: Status: Acute (2) Influenza A: Status: Acute (3) COPD (chronic obstructive pulmonary disease): Status: Acute (4) Bronchiectasis: Status: Acute Plan Impression: 82-year-old gentleman with underlying advanced COPD, bronchiectasis, chronic hypoxic respiratory failure on 2 L of supplemental oxygen now admitted with influenza A and ESBL E.Coli UTI. Respiratory status improved with diuresis. Recommendations: Respiratory status at baseline. Continue Anoro, duo nebs, and Tamiflu. Time Spent With Patient Time: Total time managing care of this patient today ____ minutes. Progress Note: Quality Stroke Does the patient have a stroke diagnosis?: No
[2023-05-16 16:14] LABS: Glucose, Whole Blood 203 mg/dL (60-115)
[2023-05-16 19:20] LABS: Glucose, Whole Blood 149 mg/dL (60-115)
[2023-05-16 20:35] LABS: ABG Base Excess 10.7 mmol/L; ABG HCO3 35 mmol/L (22-26); ABG pCO2 45 mmHg (32-45); ABG pH 7.49 (7.35-7.45); ABG pO2 58 mmHg (83-108)
[2023-05-16] MEDS: Latanoprost 0.005 % Ophth Sol 2.5 ML DROPS 1 DROP EYE-RIGHT (21:14)
[2023-05-16] MEDS: levalbuterol HCL 1.25 MG/3 ML VIAL.NEB 2.5 MG INHALE (22:04)
[2023-05-16] MEDS: methylPREDNISolone Sod Succ 125 MG/2 ML VIAL 60 MG IVPUSH (22:12)
[2023-05-16 22:15] LABS: ABG Refer to POC result
[2023-05-16] MEDS: Morphine Sulfate 2 MG/ML CARTRIDGE IVPUSH (22:19)
[2023-05-16 23:20] LABS: Hematocrit 32.6 % (42.0-52.0); Hemoglobin 9.8 g/dl (14.0-18.0); Mean Corpuscular HGB Conc 30.1 g/dl (31.0-36.0); Mean Corpuscular Hemoglobin 22.3 pg (27.0-33.0); Mean Corpuscular Volume 74.3 fL (80.0-98.0); Mean Platelet Volume 10.5 fL (9.4-12.4); Platelet Count 329 X10*3/uL (160-400); Red Blood Count 4.39 X10*6/uL (4.60-5.80); Red Cell Distribution Width 17.2 % (11.0-16.0)
[2023-05-16 23:40] LABS: Alanine Aminotransferase 75 U/L (0-40); Albumin Level 2.7 g/dL (3.5-5.0); Alkaline Phosphatase 76 U/L (39-117); Anion Gap 15 (12-20); Aspartate Amino Transferase 48 U/L (5-37); Bilirubin Total 0.7 mg/dL (0.0-1.0); Blood Urea Nitrogen 33 mg/dL (9-16); Calcium 9.2 mg/dL (8.4-10.2); Carbon Dioxide 31 mmol/L (22-29); Chloride 93 mmol/L (96-108); Creatinine Clr Calc Pharmacy 56.4; Estimated Glomerular Filt Rate > 60; Glucose Random 234 mg/dL (60-115); Lactic Acid 2.6 mmol/L (0.5-2.0); Magnesium 1.7 mg/dL (1.6-2.6); Potassium 4.2 mmol/L (3.3-5.1); Sodium 135 mmol/L (135-145); Total Protein 6.9 g/dL (6.5-8.0)
[2023-05-16 23:41] LABS: B Type Natriuretic Peptide 51 pg/mL (<100)
[2023-05-16 23:44] LABS: Band Neutrophils Percent 24 % (3-5); Lymphocytes Absolute Manual 0.1 X10*3/uL (1.2-4.9); Lymphocytes Percent Manual 1 % (20-40); Monocytes Absolute Manual 0.5 X10*3/uL (0.1-1.2); Monocytes Percent Manual 5 % (2-11); Neutrophils Absolute Manual 8.5 X10*3/uL (2.0-8.3); Neutrophils Percent Manual 70 % (45-73)
[2023-05-16 23:46] LABS: Microcytosis 1+ (5-14) /OIF; Platelet Estimate NORMAL (NORMAL); Platelet Morphology Comment NORMAL; RBC Morphology NOTED
[2023-05-16 23:47] LABS: Dohle Bodies PRESENT; Hypochromasia 1+ (5-14) /OIF; Ovalocytes 1+ (5-14) /OIF; Schistocytes 1+ (0-2) /OIF; Spherocytes 1+ (0-2) /OIF; Toxic Granulation PRESENT
[2023-05-17] VITALS (18 sets, daily range): BP systolic 81–121; BP diastolic 50–63; PULSE 82–100; RESP 17–28; TEMP 36.1–36.6; O2SAT 88–98
[2023-05-17] MEDS: Albuterol/Iprat 2.5/0.5MG 3 ML AMPUL.NEB INHALE ×7 (00:09→23:14)
[2023-05-17] MEDS: 0.9 % Sodium Chloride 500 ML IV (00:27)
[2023-05-17 01:17] LABS: Reflex Lactate? Lactic Acid Added
[2023-05-17] MEDS: 0.9 % Sodium Chloride 250 ML 999 ML IV (01:22)
--- NOTE | 2023-05-17 01:33 | P.EN_ITS ---
Event Note Date of Service: 05/17/23 Event Note: I have been contacted by nursing multiple occasions to notify patient has been quite tachypnea, tachycardic and tachypneic (7:35 PM). I have been evaluating in multiple occasions. Patient complains of shortness of breath. He was noted to have a very productive cough of greenish/yellowish sputum. Lungs auscultation is remarkable for bilateral rhonchi (no crackles, no wheezing). He is using abdominal muscles to breathe. CXR (obtained today around 4:30 PM) sh owed worsening infiltrates. Blood workup stat was obtained including CBC, CMP, lactic acid, ABGs and BNP. There is no leukocytosis however bands are 24% . There is lactic acidosis of 2.6. ABG stat showed no CO2 retention however significant metabolic alkalosis. BNP is normal. Chart review: Urine culture (May 10) noted: E coli multi resistant (susceptible to ertapenem, gentamicin and nitrofurantoin). Patient is getting doxycycline 100 mg p.o. b.i.d. (recommended by ID). Initially, patient was initiated on high-flow, Solu-Medrol 60 mg IV (plus 40 mg scheduled dose) and Xopenex given without immediate improvement of symptoms. Subsequently he received treatment with morphine for air hunger which improved his shortness on breath. It was noted that tachycardia improved. 12:42 AM - hypotension 80/51 (receiving bolus NS 500 ml). Patient have SIRS and severe sepsis criteria Plan: -additional bolus 1000 mL over an hour (30ml/hr) then continue IV fluids. -treatment with Meropenem 1 g IV X1 given until ID approval + reconsult ID for further recommendations. CXR shows worsening infiltrates. -recheck lactic acid at 03:00 -blood, sputum and urine cultures x2 already obtained. -Bumex was discontinued (due to low BP and normal BNP). -Increase Solu-Medrol to 40 mg IV q 8h Time Spent With Patient Time: Total time managing care of this patient today ____ minutes.
[2023-05-17 02:07] LABS: ~Lactic Acid-LAB USE ONLY 1.7 mmol/L (0.5-2.0)
[2023-05-17] MEDS: Albumin Human 25 % 100 ML 133.33 ML IV ×2 (02:30→03:47)
[2023-05-17 02:52] LABS: Appearance Urine Cloudy; Color Urine Dark Yellow; Glucose Urine UA Negative (Negative); Leukocyte Esterase Urine Small (1+) (Negative); Nitrite Urine Negative (Negative); PH 7.5 (5.0-9.0); UMIC TRIGGER UA YES; Urine Blood Trace (Negative); Urine Ketones Trace mg/dL (Negative); Urine Protein 30 (1+) mg/dL (Neg-Trace)
[2023-05-17 03:00] LABS: Glucose, Whole Blood 263 mg/dL (60-115)
[2023-05-17 03:08] LABS: Bacteria Urine None Seen (None Seen); Calcium Oxalate Crystals Urine Present; Hyaline Casts Urine >20 /LPF (0-2); RBC Urine >20 /HPF (0-2); Squamous Epithelial Cell Urine 0-2 /HPF (0-2)
[2023-05-17] MEDS: 0.9 % Sodium Chloride 500 ML 125 ML IV (04:30)
[2023-05-17] MEDS: methylPREDNISolone Sod Succ 40 MG/ML VIAL IVPUSH ×3 (06:50→21:13)
[2023-05-17] MEDS: Omeprazole 40 MG CAPSULE.DR PO (06:51)
[2023-05-17 06:59] LABS: Anion Gap 13 (12-20); Blood Urea Nitrogen 35 mg/dL (9-16); Calcium 8.3 mg/dL (8.4-10.2); Calcium 8.4 mg/dL (8.4-10.2); Carbon Dioxide 26 mmol/L (22-29); Carbon Dioxide 27 mmol/L (22-29); Chloride 100 mmol/L (96-108); Creatinine Clr Calc Pharmacy 59.8; Creatinine Clr Calc Pharmacy 61.2; Estimated Glomerular Filt Rate > 60; Glucose Random 290 mg/dL (60-115); Glucose Random 294 mg/dL (60-115); Potassium 3.3 mmol/L (3.3-5.1); Potassium 3.4 mmol/L (3.3-5.1); Sodium 136 mmol/L (135-145); Sodium 137 mmol/L (135-145)
[2023-05-17 07:14] LABS: B Type Natriuretic Peptide 58 pg/mL (<100)
[2023-05-17 07:37] LABS: Glucose, Whole Blood 259 mg/dL (60-115)
--- NOTE | 2023-05-17 07:41 | PC.RT ---
pt assessed. Pt remains on HFNC 40L/45% fi02. RR 28-32 with increased paradoxical respirations. HR 98 Sat 93%. BS: Jose Cruz crackles throughout all lung marcial and wheezing/rhonci noted has well. pt coughing up green sputum. Will continue to monitor and assess.
[2023-05-17] MEDS: Bumetanide 1 MG/4 ML VIAL IVPUSH (08:03)
[2023-05-17] MEDS: Insulin Lispro 100 UNIT/ML 3 ML VIAL SUBCUT ×4 (08:03→21:14)
--- NOTE | 2023-05-17 08:26 | PC.NURSE ---
Pt at start of shift restless, desatting to 82-86% sustained with s/s distress, stating he cannot breath. He was noted to be coughing up large amounts thick greenish/dark davila sputum. Oxymiser increased to 8L and RT/MD alerted and to bedside. HR 110's-130 ST. Pt assisted back to bed from recliner. Given additional solumedrol, morphine 2mg, xopenex and transitioned to high flow n/c. Pt responded well if a bit slowly to treatments and was resting with no s/s distress when scheduled Vitals taken around midnight. Pt's BP noted to be 80/61 manual. MD Jaron Allen alerted and pt assessed and found to be easily rousable with no change in mentation. IV fluids bolus 500 then 250 given with repeat pressure down to 60/30 manual Larm and 68/36 R arm. Urine, blood and sputum samples had been obtained , chest xray done, and pt given dose of Meropenem. MD paged and PREVENTIVE MEDICINE PHYSICIAN called. Pt given additional 1L bolus and 200cc 25% albumin. with BP up to 115/55 then 128/58. Pt again sleeping with no distress. This am pt had one episode of desatting to 72%, O2 readjusted in nose, oxymask over high flow while awaiting RT to adjust High flow which had been titrated down.Oxymask removed once sats back up to 94 an pt remained 88-94% at those settings. Lungs at that time with faint scattered wheeze and dim at bases. Pt resting again with no s/s distress. Clin sup aware. plan of care ongoing.
[2023-05-17] MEDS: carvediloL 6.25 MG TABLET PO ×2 (09:17→21:13)
[2023-05-17] MEDS: Apixaban 5 MG TABLET PO ×2 (09:17→21:13)
[2023-05-17] MEDS: Sacubitril/Valsartan 24/26 1 TAB TABLET PO ×2 (09:17→21:13)
[2023-05-17] MEDS: guaiFENesin LA 600 MG TAB.ER.12H PO (09:17)
[2023-05-17] MEDS: Docusate Sodium 100 MG CAPSULE PO (09:17)
[2023-05-17] MEDS: Pravastatin Sodium 10 MG TABLET PO (09:17)
[2023-05-17] MEDS: Doxycycline Monohydrate 100 MG CAPSULE PO ×2 (09:17→21:13)
[2023-05-17] MEDS: Erythromycin Base 0.5% Oph Oin 1 GM TUBE 1.27 CM EYE-BOTH ×3 (09:17→16:04)
[2023-05-17] MEDS: 0.9 % Sodium Chloride Flush 3 ML SYRINGE IVFLUSH ×3 (09:18→21:24)
[2023-05-17] MEDS: Lactulose 20 GM/30 ML SOLUTION PO ×2 (10:49→21:13)
[2023-05-17 11:11] LABS: Glucose, Whole Blood 201 mg/dL (60-115)
--- NOTE | 2023-05-17 14:10 | MHC.SL.SWA ---
Speech Pathologist Impression: Risk of Aspiration Due to: Medically Fragile History of Pneumonia Dysphasia Diet Status: Liquid Consistency and Strategies for Safe Swallow: Liquid Intake Recommendation: Thin Liquid Intake Strategies: Small Sips No Straws Solid Food Consistency: Dietary Recommendations: Pureed (NDD1) Additional Modifications to Solid Foods: Patient requires 1-1 feeding. Provide patient with frequent rest/02 breaks during meal. Add sauces and gravies to purees and blend well. Monitor patient closely for adequate 02 saturation, sudden drop in 02 saturation, upper airway noise or coughing while eating (clinical signs of aspiration) and discontinue if evident. Oral Medication Intake: Crushed with Puree Please contact the pharmacy regarding appropriate crushable or liquid drug formulations that are available whenever modified delivery is recommended. Compensatory Strategies and Precautions to be Taken for Safe Swallow: Sitting Upright (90 deg) No Straw Liquids from Cup Liquids from Spoon Small Bites and Sips Alternate Liquids/Solids Oral Check Supervision While Eating and Drinking for Safe Swallow: Total Assistance (1:1) Foods to Avoid: Difficult to chew solids. Swallowing Recommended Treatments: Compens. Strategy Educat. Recommendation for Speech: Inpatient Speech Therapy Comment: Patient presents with a mild to moderate oral pharyngeal dysphagia and a highly vulnerable respiratory status due to prolonged illness. Patient is remarkably weak, and continues to have difficulty with adequate 02 saturation with high flow nasal cannula present. During today's assessment, patient evidenced preference for puree foods, which were tolerated well. Patient tolerated thin liquid but has absent swallow trigger, evidencing signs or aspiration and increased risk when drinking by straw. Recommend DOWNGRADE diet to PUREE, continue on thin liquids with NO STRAW, pills crushed in puree. SUPERVISING FLOORPERSON communicated recommendations by secure text to DELVIN CAMPOS, discussed in person with RNEDGAR; adjusted white board in room to reflect recommendations. SUPERVISING FLOORPERSON will continute to follow. Frequency/Duration: Date Range for Service Req: Timeline to reassess: Termite Exterminator Clinican/Clinical Fellow: No Supervisory Statement: I have reviewed and agree with the student/clinical fellow's documentation: N/A Speech Language Pathologist: Amanda Graff M.A., [facility]-SUPERVISING FLOORPERSON
[2023-05-17 15:38] LABS: Lactic Acid 2.4 mmol/L (0.5-2.0)
--- NOTE | 2023-05-17 15:49 | HO.PM.IMPN ---
Subjective Subjective Date of Service: 05/17/23 Interval History: Seen and evaluated this morning worsened overnight requiring placement on Highflow O2 denies any fever or chills Lactic acidosis due to nebulizers not sepsis Review of Systems Review of Systems: Yes all other systems are reviewed and are negative Physical Exam Vital Signs: Vital Signs: Last Vital Signs Temp 97.2 F 05/17/23 15:06 Pulse 98 05/17/23 15:24 Resp 20 05/17/23 15:24 BP 120/56 L 05/17/23 15:06 Pulse Ox 88 L 05/17/23 15:24 O2 Del Method High Flow Nasal C annula 05/17/23 15:06 O2 Flow Rate 35 05/17/23 15:06 FiO2 40 05/17/23 15:06 Oxygen Flow Rate 7 05/13/23 09:15 BMI result Body Mass Index 22.1 Const: Other: Constitutional : Awake, interactive, not in distress Neck : Normal inspection, Supple Cardiovascular : RRR, no JVP, no lower extremity edema Respiratory : fair bilateral air entry, no significant crackles, wheezes or rhonchi, on High flow O2 Gastrointestinal: soft, lax, Normal bowel sounds, Non tender Skin : Warm, Dry Neurological : Alert & oriented x3, No focal deficit Objective Data Active Medications Acetaminophen (Acetaminophen 325 Mg Tablet) 650 mg PO Q6H PRN PRN Reason: Pain, Mild (Pain Scale 1-3) Last Admin: 05/16/23 05:09 Dose: 650 mg Documented By: JADIEL Albuterol/Ipratropium (Albuterol/Iprat 2.5/0.5mg 3 Ml Ampul.Neb) 3 ml INHALE RQ4H [facility] Last Admin: 05/17/23 15:24 Dose: 3 ml Documented By: SHAHID Apixaban (Apixaban 5 Mg Tablet) 5 mg PO BID [facility] Last Admin: 05/17/23 09:17 Dose: 5 mg Documented By: BALDOMERO Benzocaine (Throat Lozenge, Medicated Lozenge) 1 lozenge MUCOUS MEM Q2H PRN PRN Reason: Sore Throat Last Admin: 05/13/23 22:35 Dose: 1 lozenge Carvedilol (Carvedilol 6.25 Mg Tablet) 6.25 mg PO BID [facility]; Protocol Last Admin: 05/17/23 09:17 Dose: 6.25 mg Documented By: BALDOMERO Dextrose (Dextrose 50 % 25 Gm/50 Ml Syringe) 25 gm IVPUSH Q15M PRN; Protocol PRN Reason: per Hypoglycemia Standing Ord. Docusate Sodium (Docusate Sodium 100 Mg Capsule) 100 mg PO BID [facility] Last Admin: 05/17/23 09:17 Dose: 100 mg Documented By: BALDOMERO Doxycycline Monohydrate (Doxycycline Monohydrate 100 Mg Capsule) 100 mg PO BID [facility] Last Admin: 05/17/23 09:17 Dose: 100 mg Documented By: BALDOMERO Erythromycin (Erythromycin Base 0.5% Oph Oin 1 Gm Tube) 1.27 cm EYE-BOTH QID [facility] Last Admin: 05/17/23 14:13 Dose: 1.27 cm Documented By: BALDOMERO Glucose (Glucose Gel 15 Gm Gel..Gram.) 15 gm PO Q15M PRN; Protocol PRN Reason: per Hypoglycemia Standing Ord. Guaifenesin (Guaifenesin 100 Mg/5 Ml Liquid) 5 ml PO Q4H PRN PRN Reason: Cough Last Admin: 05/16/23 14:58 Dose: 5 ml Documented By: MICHELLE Guaifenesin (Guaifenesin La 600 Mg Tab.Er.12h) 600 mg PO BID [facility] Last Admin: 05/17/23 09:17 Dose: 600 mg Documented By: BALDOMERO Meropenem 1 gm/ Sodium (Chloride) 100 mls @ 200 mls/hr IV Q8H [facility] Last Infusion: 05/17/23 09:47 Dose: Infused Documented By: BALDOMERO Insulin Human Lispro (Insulin Lispro 100 Unit/Ml 3 Ml Vial) 0 unit SUBCUT QIDACHS [facility]; Protocol Last Admin: 05/17/23 11:37 Dose: 4 unit Documented By: BALDOMERO Lactulose (Lactulose 20 Gm/30 Ml Solution) 20 gm PO BID [facility] Last Admin: 05/17/23 10:49 Dose: 20 gm Documented By: BALDOMERO Latanoprost (Latanoprost 0.005 % Ophth Thalia 2.5 Ml Drops) 1 drop EYE-RIGHT BEDTIME [facility] Last Admin: 05/16/23 21:14 Dose: 1 drop Documented By: TATIANA Melatonin (Melatonin 3 Mg Tablet) 6 mg PO BEDTIME PRN PRN Reason: Insomnia Last Admin: 05/16/23 22:32 Dose: 6 mg Documented By: TATIANA Methylprednisolone Sodium Succinate (Methylprednisolone Sod Succ 40 Mg/Ml Vial) 40 mg IVPUSH Q8H [facility] Last Admin: 05/17/23 14:13 Dose: 40 mg Documented By: BALDOMERO Omeprazole (Omeprazole 40 Mg Capsule.Dr) 40 mg PO DAILY@0630 [facility] Last Admin: 05/17/23 06:51 Dose: 40 mg Documented By: TATIANA Ondansetron HCl (Ondansetron Hcl 4 Mg/2 Ml Vial) 4 mg IVPUSH Q8H PRN PRN Reason: Nausea and Vomiting Pravastatin Sodium (Pravastatin Sodium 10 Mg Tablet) 10 mg PO DAILY [facility] Last Admin: 05/17/23 09:17 Dose: 10 mg Documented By: BALDOMERO Sacubitril/Valsartan (Sacubitril/Valsartan 1 Tab Tablet) 1 tab PO BID [facility]; Protocol Last Admin: 05/17/23 09:17 Dose: 1 tab Documented By: BALDOMERO Sodium Chloride (0.9 % Sodium Chloride Flush 3 Ml Syringe) 3 ml IVFLUSH QSHIFT [facility] Last Admin: 05/17/23 09:18 Dose: 3 ml Documented By: BALDOMERO Labs 05/16/23 23:11 05/17/23 06:26 Labs: Laboratory Results - last 24 hr 05/16/23 05/16/23 05/16/23 16:09 19:08 20:28 MCV MCH MCHC RDW Plt Count MPV Immature Gran % (Auto) Neut % (Auto) Lymph % (Auto) [place] % (Auto) Eos % (Auto) Baso % (Auto) Lymph # (Auto) [place] # (Auto) Eos # (Auto) Baso # (Auto) Abs Immat Gran (auto) Absolute Neuts (auto) Absolute Nucleated RBC Nucleated RBC % (auto) Neutrophils % (Manual) Band Neutrophils % Lymphocytes % (Manual) Monocytes % (Manual) Abs Neuts (Manual) Lymphocytes # (Manual) Monocytes # (Manual) Toxic Granulation Dohle Bodies Platelet Estimate Plt Morphology Comment RBC Morphology Hypochromasia Microcytosis Spherocytes Ovalocytes Schistocytes Hold Purple Top O2 Saturation 84.0 ABG pH at Pt Temp 7.49 H ABG pCO2 at Pt Temp 45 ABG pO2 at Pt Temp 58 L ABG HCO3 35 H ABG Base Excess (Actual) 10.7 Anion Gap Estim Creat Clear Calc Estimated GFR POC Glucose 203 H 149 H Random Glucose Lactic Acid Lactic Acid F/U @ 2Hr Calcium Magnesium Total Bilirubin AST ALT Alkaline Phosphatase B-Natriuretic Peptide Total Protein Albumin Urine Color Urine Appearance Urine pH Ur Specific [place] Urine Protein Urine Glucose (UA) Urine Ketones Urine Blood Urine Nitrite Ur Leukocyte Esterase Urine RBC Urine WBC Ur Squamous Epith Cells Calcium Oxalate Crystal Urine Bacteria Hyaline Casts 05/16/23 05/17/23 05/17/23 23:11 01:35 01:52 MCV 74.3 L MCH 22.3 L MCHC 30.1 L RDW 17.2 H Plt Count 329 MPV 10.5 Immature Gran % (Auto) Cancelled Neut % (Auto) Cancelled Lymph % (Auto) Cancelled [place] % (Auto) Cancelled Eos % (Auto) Cancelled Baso % (Auto) Cancelled Lymph # (Auto) Cancelled [place] # (Auto) Cancelled Eos # (Auto) Cancelled Baso # (Auto) Cancelled Abs Immat Gran (auto) Cancelled Absolute Neuts (auto) Cancelled Absolute Nucleated RBC 0.000 Nucleated RBC % (auto) 0.0 Neutrophils % (Manual) 70 Band Neutrophils % 24 H Lymphocytes % (Manual) 1 L Monocytes % (Manual) 5 Abs Neuts (Manual) 8.5 H Lymphocytes # (Manual) 0.1 L Monocytes # (Manual) 0.5 Toxic Granulation PRESENT Dohle Bodies PRESENT Platelet Estimate NORMAL Plt Morphology Comment NORMAL RBC Morphology NOTED Hypochromasia 1+ (5-14) Microcytosis 1+ (5-14) Spherocytes 1+ (0-2) Ovalocytes 1+ (5-14) Schistocytes 1+ (0-2) Hold Purple Top O2 Saturation ABG pH at Pt Temp ABG pCO2 at Pt Temp ABG pO2 at Pt Temp ABG HCO3 ABG Base Excess (Actual) Anion Gap 15 Estim Creat Clear Calc 56.4 Estimated GFR > 60 POC Glucose Random Glucose 234 H Lactic Acid 2.6 H* Lactic Acid F/U @ 2Hr 1.7 Calcium 9.2 Magnesium 1.7 Total Bilirubin 0.7 AST 48 H ALT 75 H Alkaline Phosphatase 76 B-Natriuretic Peptide 51 Total Protein 6.9 Albumin 2.7 L Urine Color Dark Yellow Urine Appearance Cloudy Urine pH 7.5 Ur Specific [place] 1.020 Urine Protein 30 (1+) H Urine Glucose (UA) Negative Urine Ketones Trace Urine Blood Trace H Urine Nitrite Negative Ur Leukocyte Esterase Small (1+) H Urine RBC >20 H Urine WBC 11-20 H Ur Squamous Epith Cells 0-2 Calcium Oxalate Crystal Present Urine Bacteria None Seen Hyaline Casts >20 05/17/23 05/17/23 05/17/23 02:20 06:26 06:26 MCV MCH MCHC RDW Plt Count MPV Immature Gran % (Auto) Neut % (Auto) Lymph % (Auto) [place] % (Auto) Eos % (Auto) Baso % (Auto) Lymph # (Auto) [place] # (Auto) Eos # (Auto) Baso # (Auto) Abs Immat Gran (auto) Absolute Neuts (auto) Absolute Nucleated RBC Nucleated RBC % (auto) Neutrophils % (Manual) Band Neutrophils % Lymphocytes % (Manual) Monocytes % (Manual) Abs Neuts (Manual) Lymphocytes # (Manual) Monocytes # (Manual) Toxic Granulation Dohle Bodies Platelet Estimate Plt Morphology Comment RBC Morphology Hypochromasia Microcytosis Spherocytes Ovalocytes Schistocytes Hold Purple Top SEE NOTE O2 Saturation ABG pH at Pt Temp ABG pCO2 at Pt Temp ABG pO2 at Pt Temp ABG HCO3 ABG Base Excess (Actual) Anion Gap 13 13 Estim Creat Clear Calc 61.2 Estimated GFR POC Glucose 263 H Random Glucose Lactic Acid Lactic Acid F/U @ 2Hr Calcium Magnesium Total Bilirubin AST ALT Alkaline Phosphatase B-Natriuretic Peptide Total Protein Albumin Urine Color Urine Appearance Urine pH Ur Specific [place] Urine Protein Urine Glucose (UA) Urine Ketones Urine Blood Urine Nitrite Ur Leukocyte Esterase Urine RBC Urine WBC Ur Squamous Epith Cells Calcium Oxalate Crystal Urine Bacteria Hyaline Casts 05/17/23 05/17/23 05/17/23 06:26 06:26 06:26 MCV MCH MCHC RDW Plt Count MPV Immature Gran % (Auto) Neut % (Auto) Lymph % (Auto) [place] % (Auto) Eos % (Auto) Baso % (Auto) Lymph # (Auto) [place] # (Auto) Eos # (Auto) Baso # (Auto) Abs Immat Gran (auto) Absolute Neuts (auto) Absolute Nucleated RBC Nucleated RBC % (auto) Neutrophils % (Manual) Band Neutrophils % Lymphocytes % (Manual) Monocytes % (Manual) Abs Neuts (Manual) Lymphocytes # (Manual) Monocytes # (Manual) Toxic Granulation Dohle Bodies Platelet Estimate Plt Morphology Comment RBC Morphology Hypochromasia Microcytosis Spherocytes Ovalocytes Schistocytes Hold Purple Top O2 Saturation ABG pH at Pt Temp ABG pCO2 at Pt Temp ABG pO2 at Pt Temp ABG HCO3 ABG Base Excess (Actual) Anion Gap Estim Creat Clear Calc 59.8 Estimated GFR > 60 > 60 POC Glucose Random Glucose 294 H 290 H Lactic Acid Lactic Acid F/U @ 2Hr Calcium 8.3 L D Magnesium Total Bilirubin AST ALT Alkaline Phosphatase B-Natriuretic Peptide Total Protein Albumin Urine Color Urine Appearance Urine pH Ur Specific [place] Urine Protein Urine Glucose (UA) Urine Ketones Urine Blood Urine Nitrite Ur Leukocyte Esterase Urine RBC Urine WBC Ur Squamous Epith Cells Calcium Oxalate Crystal Urine Bacteria Hyaline Casts 05/17/23 05/17/23 05/17/23 06:26 07:29 11:04 MCV MCH MCHC RDW Plt Count MPV Immature Gran % (Auto) Neut % (Auto) Lymph % (Auto) [place] % (Auto) Eos % (Auto) Baso % (Auto) Lymph # (Auto) [place] # (Auto) Eos # (Auto) Baso # (Auto) Abs Immat Gran (auto) Absolute Neuts (auto) Absolute Nucleated RBC Nucleated RBC % (auto) Neutrophils % (Manual) Band Neutrophils % Lymphocytes % (Manual) Monocytes % (Manual) Abs Neuts (Manual) Lymphocytes # (Manual) Monocytes # (Manual) Toxic Granulation Dohle Bodies Platelet Estimate Plt Morphology Comment RBC Morphology Hypochromasia Microcytosis Spherocytes Ovalocytes Schistocytes Hold Purple Top O2 Saturation ABG pH at Pt Temp ABG pCO2 at Pt Temp ABG pO2 at Pt Temp ABG HCO3 ABG Base Excess (Actual) Anion Gap Estim Creat Clear Calc Estimated GFR POC Glucose 259 H 201 H Random Glucose Lactic Acid Lactic Acid F/U @ 2Hr Calcium 8.4 Magnesium Total Bilirubin AST ALT Alkaline Phosphatase B-Natriuretic Peptide 58 Total Protein Albumin Urine Color Urine Appearance Urine pH Ur Specific [place] Urine Protein Urine Glucose (UA) Urine Ketones Urine Blood Urine Nitrite Ur Leukocyte Esterase Urine RBC Urine WBC Ur Squamous Epith Cells Calcium Oxalate Crystal Urine Bacteria Hyaline Casts 05/17/23 15:13 MCV MCH MCHC RDW Plt Count MPV Immature Gran % (Auto) Neut % (Auto) Lymph % (Auto) [place] % (Auto) Eos % (Auto) Baso % (Auto) Lymph # (Auto) [place] # (Auto) Eos # (Auto) Baso # (Auto) Abs Immat Gran (auto) Absolute Neuts (auto) Absolute Nucleated RBC Nucleated RBC % (auto) Neutrophils % (Manual) Band Neutrophils % Lymphocytes % (Manual) Monocytes % (Manual) Abs Neuts (Manual) Lymphocytes # (Manual) Monocytes # (Manual) Toxic Granulation Dohle Bodies Platelet Estimate Plt Morphology Comment RBC Morphology Hypochromasia Microcytosis Spherocytes Ovalocytes Schistocytes Hold Purple Top O2 Saturation ABG pH at Pt Temp ABG pCO2 at Pt Temp ABG pO2 at Pt Temp ABG HCO3 ABG Base Excess (Actual) Anion Gap Estim Creat Clear Calc Estimated GFR POC Glucose Random Glucose Lactic Acid 2.4 H* Lactic Acid F/U @ 2Hr Calcium Magnesium Total Bilirubin AST ALT Alkaline Phosphatase B-Natriuretic Peptide Total Protein Albumin Urine Color Urine Appearance Urine pH Ur Specific [place] Urine Protein Urine Glucose (UA) Urine Ketones Urine Blood Urine Nitrite Ur Leukocyte Esterase Urine RBC Urine WBC Ur Squamous Epith Cells Calcium Oxalate Crystal Urine Bacteria Hyaline Casts Microbiology Microbiology Results: Microbiology 05/16/23 23:11 Blood Culture - Preliminary Blood - Venous Prelim: GNR Gram Stain only 05/17/23 01:35 Gram Stain - Final Lung - Expectorated Sputum 05/11/23 09:56 Blood Culture - Final Blood - Venous No growth after 5 days. 05/11/23 09:48 Blood Culture - Final Blood - Venous No growth after 5 days. 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 Pt will be admitted to the hospital for treatment and further evaluation of acute on chronic hypoxic respiratory failure in the setting of recurrent pneumonia and COPD exacerbation in a patient with hx of ESBL pneumonia. Acute hypoxic respiratory failure d/t pulmomonary edema and aspiration diuressed with IV Lasix with good effect with good effect, Daily IV Bumex, CXR showing worsening infiltrates Incentive spirometry , lung physiotherapy [employer] eval: Pureed diet continue coreg, entresto, wean down as tolerated Lactic acidosis Lactic acidosis due to nebulizers not sepsis contraction alkalosis resolved COPD exacerbation bronchodilators by Neb, IV steroid. Depression CARE team following denies any intent to harm himself ESBL E. coli UTI Continue Meropenem (05/16) ID input appreciated; Po Doxycycline Influenza infection Tamiflu Left eye pain/reduced vision/white substance Contact [facility] who report pt had two recent complicated, unsuccessful cataract surgeries Has so far failed at replacing patient's left eye lens White substance in eye is a Kenalog injection to reduce edema Per ophthalmology recommendations, can use erythromycin ointment and systolic analgesics for pain management Patient should follow-up outpatient with Ophthalmology Nonischemic cardiomyopathy Continue carvedilol resume Entresto now that BP is beter Paroxysmal AFib Continue Eliquis Ysf-kzhwygn-ahzzrurib diabetes type 2 resume metformin, SSI Diabetic diet Physical deconditioning PT rec SNF Full Code DVT Prophylaxis: On Eliquis need for inpt: copd exacergation with hypoxia Ongoing hospitalization for acute hypoxic resp failure, pulmonary edema needing IV diuretics and close monitoring with SNF placement Quality Stroke Does the patient have a stroke diagnosis?: No VTE Prior VTE?: No VTE Risk Level:: Medical - moderate - high VTE Device Contraindication: Treatment Not Indicated VTE Drug Contraindication: N/A - Med Ordered
[2023-05-17 16:22] LABS: Glucose, Whole Blood 181 mg/dL (60-115)
--- NOTE | 2023-05-17 16:25 | P.PNPL_ITS ---
Subjective Subjective Date of Service: 05/17/23 Interval history: Overnight with an aspiration event and waxing/waning FiO2 requirements. Objective Data Labs 05/16/23 23:11 05/17/23 06:26 Labs: Laboratory Results - last 24 hr 05/16/23 05/16/23 05/16/23 19:08 20:28 23:11 WBC 9.0 RBC 4.39 L Hgb 9.8 L Hct 32.6 L MCV 74.3 L MCH 22.3 L MCHC 30.1 L RDW 17.2 H Plt Count 329 MPV 10.5 Immature Gran % (Auto) Cancelled Neut % (Auto) Cancelled Lymph % (Auto) Cancelled [place] % (Auto) Cancelled Eos % (Auto) Cancelled Baso % (Auto) Cancelled Lymph # (Auto) Cancelled [place] # (Auto) Cancelled Eos # (Auto) Cancelled Baso # (Auto) Cancelled Abs Immat Gran (auto) Cancelled Absolute Neuts (auto) Cancelled Absolute Nucleated RBC 0.000 Nucleated RBC % (auto) 0.0 Neutrophils % (Manual) 70 Band Neutrophils % 24 H Lymphocytes % (Manual) 1 L Monocytes % (Manual) 5 Abs Neuts (Manual) 8.5 H Lymphocytes # (Manual) 0.1 L Monocytes # (Manual) 0.5 Toxic Granulation PRESENT Dohle Bodies PRESENT Platelet Estimate NORMAL Plt Morphology Comment NORMAL RBC Morphology NOTED Hypochromasia 1+ (5-14) Microcytosis 1+ (5-14) Spherocytes 1+ (0-2) Ovalocytes 1+ (5-14) Schistocytes 1+ (0-2) Hold Purple Top O2 Saturation 84.0 ABG pH at Pt Temp 7.49 H ABG pCO2 at Pt Temp 45 ABG pO2 at Pt Temp 58 L ABG HCO3 35 H ABG Base Excess (Actual) 10.7 Sodium 135 Potassium 4.2 Chloride 93 L Carbon Dioxide 31 H Anion Gap 15 BUN 33 H Creatinine 0.89 Estim Creat Clear Calc 56.4 Estimated GFR > 60 POC Glucose 149 H Random Glucose 234 H Lactic Acid 2.6 H* Lactic Acid F/U @ 2Hr Calcium 9.2 Magnesium 1.7 Total Bilirubin 0.7 AST 48 H ALT 75 H Alkaline Phosphatase 76 B-Natriuretic Peptide 51 Total Protein 6.9 Albumin 2.7 L Urine Color Urine Appearance Urine pH Ur Specific [place] Urine Protein Urine Glucose (UA) Urine Ketones Urine Blood Urine Nitrite Ur Leukocyte Esterase Urine RBC Urine WBC Ur Squamous Epith Cells Calcium Oxalate Crystal Urine Bacteria Hyaline Casts 05/17/23 05/17/23 05/17/23 01:35 01:52 02:20 WBC RBC Hgb Hct MCV MCH MCHC RDW Plt Count MPV Immature Gran % (Auto) Neut % (Auto) Lymph % (Auto) [place] % (Auto) Eos % (Auto) Baso % (Auto) Lymph # (Auto) [place] # (Auto) Eos # (Auto) Baso # (Auto) Abs Immat Gran (auto) Absolute Neuts (auto) Absolute Nucleated RBC Nucleated RBC % (auto) Neutrophils % (Manual) Band Neutrophils % Lymphocytes % (Manual) Monocytes % (Manual) Abs Neuts (Manual) Lymphocytes # (Manual) Monocytes # (Manual) Toxic Granulation Dohle Bodies Platelet Estimate Plt Morphology Comment RBC Morphology Hypochromasia Microcytosis Spherocytes Ovalocytes Schistocytes Hold Purple Top O2 Saturation ABG pH at Pt Temp ABG pCO2 at Pt Temp ABG pO2 at Pt Temp ABG HCO3 ABG Base Excess (Actual) Sodium Potassium Chloride Carbon Dioxide Anion Gap BUN Creatinine Estim Creat Clear Calc Estimated GFR POC Glucose 263 H Random Glucose Lactic Acid Lactic Acid F/U @ 2Hr 1.7 Calcium Magnesium Total Bilirubin AST ALT Alkaline Phosphatase B-Natriuretic Peptide Total Protein Albumin Urine Color Dark Yellow Urine Appearance Cloudy Urine pH 7.5 Ur Specific [place] 1.020 Urine Protein 30 (1+) H Urine Glucose (UA) Negative Urine Ketones Trace Urine Blood Trace H Urine Nitrite Negative Ur Leukocyte Esterase Small (1+) H Urine RBC >20 H Urine WBC 11-20 H Ur Squamous Epith Cells 0-2 Calcium Oxalate Crystal Present Urine Bacteria None Seen Hyaline Casts >20 05/17/23 05/17/23 05/17/23 06:26 06:26 06:26 WBC RBC Hgb Hct MCV MCH MCHC RDW Plt Count MPV Immature Gran % (Auto) Neut % (Auto) Lymph % (Auto) [place] % (Auto) Eos % (Auto) Baso % (Auto) Lymph # (Auto) [place] # (Auto) Eos # (Auto) Baso # (Auto) Abs Immat Gran (auto) Absolute Neuts (auto) Absolute Nucleated RBC Nucleated RBC % (auto) Neutrophils % (Manual) Band Neutrophils % Lymphocytes % (Manual) Monocytes % (Manual) Abs Neuts (Manual) Lymphocytes # (Manual) Monocytes # (Manual) Toxic Granulation Dohle Bodies Platelet Estimate Plt Morphology Comment RBC Morphology Hypochromasia Microcytosis Spherocytes Ovalocytes Schistocytes Hold Purple Top SEE NOTE O2 Saturation ABG pH at Pt Temp ABG pCO2 at Pt Temp ABG pO2 at Pt Temp ABG HCO3 ABG Base Excess (Actual) Sodium 136 137 Potassium 3.3 D 3.4 Chloride 100 Carbon Dioxide Anion Gap BUN Creatinine Estim Creat Clear Calc Estimated GFR POC Glucose Random Glucose Lactic Acid Lactic Acid F/U @ 2Hr Calcium Magnesium Total Bilirubin AST ALT Alkaline Phosphatase B-Natriuretic Peptide Total Protein Albumin Urine Color Urine Appearance Urine pH Ur Specific [place] Urine Protein Urine Glucose (UA) Urine Ketones Urine Blood Urine Nitrite Ur Leukocyte Esterase Urine RBC Urine WBC Ur Squamous Epith Cells Calcium Oxalate Crystal Urine Bacteria Hyaline Casts 05/17/23 05/17/23 05/17/23 06:26 06:26 06:26 WBC RBC Hgb Hct MCV MCH MCHC RDW Plt Count MPV Immature Gran % (Auto) Neut % (Auto) Lymph % (Auto) [place] % (Auto) Eos % (Auto) Baso % (Auto) Lymph # (Auto) [place] # (Auto) Eos # (Auto) Baso # (Auto) Abs Immat Gran (auto) Absolute Neuts (auto) Absolute Nucleated RBC Nucleated RBC % (auto) Neutrophils % (Manual) Band Neutrophils % Lymphocytes % (Manual) Monocytes % (Manual) Abs Neuts (Manual) Lymphocytes # (Manual) Monocytes # (Manual) Toxic Granulation Dohle Bodies Platelet Estimate Plt Morphology Comment RBC Morphology Hypochromasia Microcytosis Spherocytes Ovalocytes Schistocytes Hold Purple Top O2 Saturation ABG pH at Pt Temp ABG pCO2 at Pt Temp ABG pO2 at Pt Temp ABG HCO3 ABG Base Excess (Actual) Sodium Potassium Chloride 100 Carbon Dioxide 26 27 Anion Gap 13 13 BUN 35 H Creatinine Estim Creat Clear Calc Estimated GFR POC Glucose Random Glucose Lactic Acid Lactic Acid F/U @ 2Hr Calcium Magnesium Total Bilirubin AST ALT Alkaline Phosphatase B-Natriuretic Peptide Total Protein Albumin Urine Color Urine Appearance Urine pH Ur Specific [place] Urine Protein Urine Glucose (UA) Urine Ketones Urine Blood Urine Nitrite Ur Leukocyte Esterase Urine RBC Urine WBC Ur Squamous Epith Cells Calcium Oxalate Crystal Urine Bacteria Hyaline Casts 05/17/23 05/17/2324 06:26 06:26 06:26 WBC RBC Hgb Hct MCV MCH MCHC RDW Plt Count MPV Immature Gran % (Auto) Neut % (Auto) Lymph % (Auto) [place] % (Auto) Eos % (Auto) Baso % (Auto) Lymph # (Auto) [place] # (Auto) Eos # (Auto) Baso # (Auto) Abs Immat Gran (auto) Absolute Neuts (auto) Absolute Nucleated RBC Nucleated RBC % (auto) Neutrophils % (Manual) Band Neutrophils % Lymphocytes % (Manual) Monocytes % (Manual) Abs Neuts (Manual) Lymphocytes # (Manual) Monocytes # (Manual) Toxic Granulation Dohle Bodies Platelet Estimate Plt Morphology Comment RBC Morphology Hypochromasia Microcytosis Spherocytes Ovalocytes Schistocytes Hold Purple Top O2 Saturation ABG pH at Pt Temp ABG pCO2 at Pt Temp ABG pO2 at Pt Temp ABG HCO3 ABG Base Excess (Actual) Sodium Potassium Chloride Carbon Dioxide Anion Gap BUN 35 H Creatinine 0.82 0.84 Estim Creat Clear Calc 61.2 59.8 Estimated GFR > 60 POC Glucose Random Glucose Lactic Acid Lactic Acid F/U @ 2Hr Calcium Magnesium Total Bilirubin AST ALT Alkaline Phosphatase B-Natriuretic Peptide Total Protein Albumin Urine Color Urine Appearance Urine pH Ur Specific [place] Urine Protein Urine Glucose (UA) Urine Ketones Urine Blood Urine Nitrite Ur Leukocyte Esterase Urine RBC Urine WBC Ur Squamous Epith Cells Calcium Oxalate Crystal Urine Bacteria Hyaline Casts 05/17/23 05/17/23 05/17/23 06:26 06:26 06:26 WBC RBC Hgb Hct MCV MCH MCHC RDW Plt Count MPV Immature Gran % (Auto) Neut % (Auto) Lymph % (Auto) [place] % (Auto) Eos % (Auto) Baso % (Auto) Lymph # (Auto) [place] # (Auto) Eos # (Auto) Baso # (Auto) Abs Immat Gran (auto) Absolute Neuts (auto) Absolute Nucleated RBC Nucleated RBC % (auto) Neutrophils % (Manual) Band Neutrophils % Lymphocytes % (Manual) Monocytes % (Manual) Abs Neuts (Manual) Lymphocytes # (Manual) Monocytes # (Manual) Toxic Granulation Dohle Bodies Platelet Estimate Plt Morphology Comment RBC Morphology Hypochromasia Microcytosis Spherocytes Ovalocytes Schistocytes Hold Purple Top O2 Saturation ABG pH at Pt Temp ABG pCO2 at Pt Temp ABG pO2 at Pt Temp ABG HCO3 ABG Base Excess (Actual) Sodium Potassium Chloride Carbon Dioxide Anion Gap BUN Creatinine Estim Creat Clear Calc Estimated GFR > 60 POC Glucose Random Glucose 294 H 290 H Lactic Acid Lactic Acid F/U @ 2Hr Calcium 8.3 L D 8.4 Magnesium Total Bilirubin AST ALT Alkaline Phosphatase B-Natriuretic Peptide 58 Total Protein Albumin Urine Color Urine Appearance Urine pH Ur Specific [place] Urine Protein Urine Glucose (UA) Urine Ketones Urine Blood Urine Nitrite Ur Leukocyte Esterase Urine RBC Urine WBC Ur Squamous Epith Cells Calcium Oxalate Crystal Urine Bacteria Hyaline Casts 05/17/23 05/17/23 05/17/23 07:29 11:04 15:13 WBC RBC Hgb Hct MCV MCH MCHC RDW Plt Count MPV Immature Gran % (Auto) Neut % (Auto) Lymph % (Auto) [place] % (Auto) Eos % (Auto) Baso % (Auto) Lymph # (Auto) [place] # (Auto) Eos # (Auto) Baso # (Auto) Abs Immat Gran (auto) Absolute Neuts (auto) Absolute Nucleated RBC Nucleated RBC % (auto) Neutrophils % (Manual) Band Neutrophils % Lymphocytes % (Manual) Monocytes % (Manual) Abs Neuts (Manual) Lymphocytes # (Manual) Monocytes # (Manual) Toxic Granulation Dohle Bodies Platelet Estimate Plt Morphology Comment RBC Morphology Hypochromasia Microcytosis Spherocytes Ovalocytes Schistocytes Hold Purple Top O2 Saturation ABG pH at Pt Temp ABG pCO2 at Pt Temp ABG pO2 at Pt Temp ABG HCO3 ABG Base Excess (Actual) Sodium Potassium Chloride Carbon Dioxide Anion Gap BUN Creatinine Estim Creat Clear Calc Estimated GFR POC Glucose 259 H 201 H Random Glucose Lactic Acid 2.4 H* Lactic Acid F/U @ 2Hr Calcium Magnesium Total Bilirubin AST ALT Alkaline Phosphatase B-Natriuretic Peptide Total Protein Albumin Urine Color Urine Appearance Urine pH Ur Specific [place] Urine Protein Urine Glucose (UA) Urine Ketones Urine Blood Urine Nitrite Ur Leukocyte Esterase Urine RBC Urine WBC Ur Squamous Epith Cells Calcium Oxalate Crystal Urine Bacteria Hyaline Casts 05/17/23 16:16 WBC RBC Hgb Hct MCV MCH MCHC RDW Plt Count MPV Immature Gran % (Auto) Neut % (Auto) Lymph % (Auto) [place] % (Auto) Eos % (Auto) Baso % (Auto) Lymph # (Auto) [place] # (Auto) Eos # (Auto) Baso # (Auto) Abs Immat Gran (auto) Absolute Neuts (auto) Absolute Nucleated RBC Nucleated RBC % (auto) Neutrophils % (Manual) Band Neutrophils % Lymphocytes % (Manual) Monocytes % (Manual) Abs Neuts (Manual) Lymphocytes # (Manual) Monocytes # (Manual) Toxic Granulation Dohle Bodies Platelet Estimate Plt Morphology Comment RBC Morphology Hypochromasia Microcytosis Spherocytes Ovalocytes Schistocytes Hold Purple Top O2 Saturation ABG pH at Pt Temp ABG pCO2 at Pt Temp ABG pO2 at Pt Temp ABG HCO3 ABG Base Excess (Actual) Sodium Potassium Chloride Carbon Dioxide Anion Gap BUN Creatinine Estim Creat Clear Calc Estimated GFR POC Glucose 181 H Random Glucose Lactic Acid Lactic Acid F/U @ 2Hr Calcium Magnesium Total Bilirubin AST ALT Alkaline Phosphatase B-Natriuretic Peptide Total Protein Albumin Urine Color Urine Appearance Urine pH Ur Specific [place] Urine Protein Urine Glucose (UA) Urine Ketones Urine Blood Urine Nitrite Ur Leukocyte Esterase Urine RBC Urine WBC Ur Squamous Epith Cells Calcium Oxalate Crystal Urine Bacteria Hyaline Casts Microbiology Microbiology Results: Microbiology 05/16/23 23:11 Blood - Venous Blood Culture - Preliminary Prelim: GNR Gram Stain only 05/17/23 01:35 Lung - Expectorated Sputum Gram Stain - Final 05/11/23 09:56 Blood - Venous Blood Culture - Final No growth after 5 days. 05/11/23 09:48 Blood - Venous Blood Culture - Final No growth after 5 days. 05/11/23 Unknown Urine clean catch - Urine swanson top Urine Culture - Final Escherichia coli Physical Exam 2 Vital Signs: Vital Signs: Last Vital Signs Temp 97.2 F 05/17/23 15:06 Pulse 98 05/17/23 15:24 Resp 20 05/17/23 15:24 BP 120/56 L 05/17/23 15:06 Pulse Ox 88 L 05/17/23 15:24 O2 Del Method High Flow Nasal C annula 05/17/23 15:06 O2 Flow Rate 35 05/17/23 15:06 FiO2 40 05/17/23 15:06 Oxygen Flow Rate 7 05/13/23 09:15 BMI result Body Mass Index 22.1 Const: General: no acute distress, alert and awake Eyes: Sclerae: sclerae normal EOM: EOMs intact bilaterally Neck: Neck: Yes no lymphadenopathy, Yes trachea midline and Yes supple Resp: Effort & Inspection: normal respiratory effort and no respiratory distress Auscultation: clear to auscultation bilaterally Cardio: Rate: regular rate Rhythm: regular rhythm Heart sounds: no gallops, no murmurs and no rubs GI: Palpation (GI): Soft to palpation and Other GI palpation findings present ( Nontender) Auscultation: normal bowel sounds Extrem: General: Yes no pedal edema, No clubbing and No cyanosis Procedures Date of Service Date of Service: 05/17/23 Assessment and Plan Assessment and plan (1) Influenza A: Status: Acute (2) COPD (chronic obstructive pulmonary disease): Status: Acute (3) Bronchiectasis: Status: Acute Plan Impression: 82-year-old gentleman with underlying advanced COPD, bronchiectasis, chronic hypoxic respiratory failure on 2 L of supplemental oxygen now admitted with influenza A and ESBL E.Coli UTI. Respiratory status improved with diuresis. Recommendations: Respiratory status is waxing and waning, now appears to be secondary to an aspiration event secondary to septic encephalopathy from UTI. Continue to titrate supplemental oxygen down baseline levels. Continue Anoro, duo nebs, and Tamiflu. Time Spent With Patient Time: Total time managing care of this patient today ____ minutes. Progress Note: Quality Stroke Does the patient have a stroke diagnosis?: No
[2023-05-17 17:17] LABS: Reflex Lactate? Lactic Acid Added
[2023-05-17 18:01] LABS: ~Lactic Acid-LAB USE ONLY 1.7 mmol/L (0.5-2.0)
[2023-05-17 20:18] LABS: Glucose, Whole Blood 194 mg/dL (60-115)
[2023-05-17] MEDS: Latanoprost 0.005 % Ophth Sol 2.5 ML DROPS 1 DROP EYE-RIGHT (21:24)
[2023-05-17] MEDS: Melatonin 3 MG TABLET 6 MG PO (22:52)
--- NOTE | 2023-05-17 23:39 | P.PNID_ITS ---
Subjective Subjective Date of Service: 05/17/23 Critical Care Time (minutes): 15 Comment: He has blood culture positive 1/2 from 05/15. He had prior negative blood culture 05/06/2023. He has E coli in urine but no urinary symptoms,concern over resistant E coli. Objective Data Labs 05/16/23 23:11 05/17/23 06:26 Labs: Laboratory Results - last 24 hr 05/16/23 05/17/23 05/17/23 23:11 01:35 01:52 Neutrophils % (Manual) 70 Band Neutrophils % 24 H Lymphocytes % (Manual) 1 L Monocytes % (Manual) 5 Abs Neuts (Manual) 8.5 H Lymphocytes # (Manual) 0.1 L Monocytes # (Manual) 0.5 Toxic Granulation PRESENT Dohle Bodies PRESENT Platelet Estimate NORMAL Plt Morphology Comment NORMAL RBC Morphology NOTED Hypochromasia 1+ (5-14) Microcytosis 1+ (5-14) Spherocytes 1+ (0-2) Ovalocytes 1+ (5-14) Schistocytes 1+ (0-2) Hold Purple Top Sodium 135 Potassium 4.2 Chloride 93 L Carbon Dioxide 31 H Anion Gap 15 BUN 33 H Creatinine 0.89 Estim Creat Clear Calc 56.4 Estimated GFR > 60 POC Glucose Random Glucose 234 H Lactic Acid 2.6 H* Lactic Acid F/U @ 2Hr 1.7 Calcium 9.2 Magnesium 1.7 Total Bilirubin 0.7 AST 48 H ALT 75 H Alkaline Phosphatase 76 B-Natriuretic Peptide 51 Total Protein 6.9 Albumin 2.7 L Urine Color Dark Yellow Urine Appearance Cloudy Urine pH 7.5 Ur Specific [place] 1.020 Urine Protein 30 (1+) H Urine Glucose (UA) Negative Urine Ketones Trace Urine Blood Trace H Urine Nitrite Negative Ur Leukocyte Esterase Small (1+) H Urine RBC >20 H Urine WBC 11-20 H Ur Squamous Epith Cells 0-2 Calcium Oxalate Crystal Present Urine Bacteria None Seen Hyaline Casts >20 05/17/23 05/17/23 05/17/23 02:20 06:26 06:26 Neutrophils % (Manual) Band Neutrophils % Lymphocytes % (Manual) Monocytes % (Manual) Abs Neuts (Manual) Lymphocytes # (Manual) Monocytes # (Manual) Toxic Granulation Dohle Bodies Platelet Estimate Plt Morphology Comment RBC Morphology Hypochromasia Microcytosis Spherocytes Ovalocytes Schistocytes Hold Purple Top SEE NOTE Sodium 136 137 Potassium 3.3 D Chloride Carbon Dioxide Anion Gap BUN Creatinine Estim Creat Clear Calc Estimated GFR POC Glucose 263 H Random Glucose Lactic Acid Lactic Acid F/U @ 2Hr Calcium Magnesium Total Bilirubin AST ALT Alkaline Phosphatase B-Natriuretic Peptide Total Protein Albumin Urine Color Urine Appearance Urine pH Ur Specific [place] Urine Protein Urine Glucose (UA) Urine Ketones Urine Blood Urine Nitrite Ur Leukocyte Esterase Urine RBC Urine WBC Ur Squamous Epith Cells Calcium Oxalate Crystal Urine Bacteria Hyaline Casts 05/17/23 05/17/23 05/17/23 06:26 06:26 06:26 Neutrophils % (Manual) Band Neutrophils % Lymphocytes % (Manual) Monocytes % (Manual) Abs Neuts (Manual) Lymphocytes # (Manual) Monocytes # (Manual) Toxic Granulation Dohle Bodies Platelet Estimate Plt Morphology Comment RBC Morphology Hypochromasia Microcytosis Spherocytes Ovalocytes Schistocytes Hold Purple Top Sodium Potassium 3.4 Chloride 100 100 Carbon Dioxide 26 27 Anion Gap 13 BUN Creatinine Estim Creat Clear Calc Estimated GFR POC Glucose Random Glucose Lactic Acid Lactic Acid F/U @ 2Hr Calcium Magnesium Total Bilirubin AST ALT Alkaline Phosphatase B-Natriuretic Peptide Total Protein Albumin Urine Color Urine Appearance Urine pH Ur Specific [place] Urine Protein Urine Glucose (UA) Urine Ketones Urine Blood Urine Nitrite Ur Leukocyte Esterase Urine RBC Urine WBC Ur Squamous Epith Cells Calcium Oxalate Crystal Urine Bacteria Hyaline Casts 05/17/23 05/17/23 05/17/23 06:26 06:26 06:26 Neutrophils % (Manual) Band Neutrophils % Lymphocytes % (Manual) Monocytes % (Manual) Abs Neuts (Manual) Lymphocytes # (Manual) Monocytes # (Manual) Toxic Granulation Dohle Bodies Platelet Estimate Plt Morphology Comment RBC Morphology Hypochromasia Microcytosis Spherocytes Ovalocytes Schistocytes Hold Purple Top Sodium Potassium Chloride Carbon Dioxide Anion Gap 13 BUN 35 H 35 H Creatinine 0.82 0.84 Estim Creat Clear Calc 61.2 Estimated GFR POC Glucose Random Glucose Lactic Acid Lactic Acid F/U @ 2Hr Calcium Magnesium Total Bilirubin AST ALT Alkaline Phosphatase B-Natriuretic Peptide Total Protein Albumin Urine Color Urine Appearance Urine pH Ur Specific [place] Urine Protein Urine Glucose (UA) Urine Ketones Urine Blood Urine Nitrite Ur Leukocyte Esterase Urine RBC Urine WBC Ur Squamous Epith Cells Calcium Oxalate Crystal Urine Bacteria Hyaline Casts 05/17/23 05/17/23 05/17/23 06:26 06:26 06:26 Neutrophils % (Manual) Band Neutrophils % Lymphocytes % (Manual) Monocytes % (Manual) Abs Neuts (Manual) Lymphocytes # (Manual) Monocytes # (Manual) Toxic Granulation Dohle Bodies Platelet Estimate Plt Morphology Comment RBC Morphology Hypochromasia Microcytosis Spherocytes Ovalocytes Schistocytes Hold Purple Top Sodium Potassium Chloride Carbon Dioxide Anion Gap BUN Creatinine Estim Creat Clear Calc 59.8 Estimated GFR > 60 > 60 POC Glucose Random Glucose 294 H 290 H Lactic Acid Lactic Acid F/U @ 2Hr Calcium 8.3 L D Magnesium Total Bilirubin AST ALT Alkaline Phosphatase B-Natriuretic Peptide Total Protein Albumin Urine Color Urine Appearance Urine pH Ur Specific [place] Urine Protein Urine Glucose (UA) Urine Ketones Urine Blood Urine Nitrite Ur Leukocyte Esterase Urine RBC Urine WBC Ur Squamous Epith Cells Calcium Oxalate Crystal Urine Bacteria Hyaline Casts 05/17/23 05/17/23 05/17/23 06:26 07:29 11:04 Neutrophils % (Manual) Band Neutrophils % Lymphocytes % (Manual) Monocytes % (Manual) Abs Neuts (Manual) Lymphocytes # (Manual) Monocytes # (Manual) Toxic Granulation Dohle Bodies Platelet Estimate Plt Morphology Comment RBC Morphology Hypochromasia Microcytosis Spherocytes Ovalocytes Schistocytes Hold Purple Top Sodium Potassium Chloride Carbon Dioxide Anion Gap BUN Creatinine Estim Creat Clear Calc Estimated GFR POC Glucose 259 H 201 H Random Glucose Lactic Acid Lactic Acid F/U @ 2Hr Calcium 8.4 Magnesium Total Bilirubin AST ALT Alkaline Phosphatase B-Natriuretic Peptide 58 Total Protein Albumin Urine Color Urine Appearance Urine pH Ur Specific [place] Urine Protein Urine Glucose (UA) Urine Ketones Urine Blood Urine Nitrite Ur Leukocyte Esterase Urine RBC Urine WBC Ur Squamous Epith Cells Calcium Oxalate Crystal Urine Bacteria Hyaline Casts 05/17/23 05/17/23 05/17/23 15:13 16:16 17:47 Neutrophils % (Manual) Band Neutrophils % Lymphocytes % (Manual) Monocytes % (Manual) Abs Neuts (Manual) Lymphocytes # (Manual) Monocytes # (Manual) Toxic Granulation Dohle Bodies Platelet Estimate Plt Morphology Comment RBC Morphology Hypochromasia Microcytosis Spherocytes Ovalocytes Schistocytes Hold Purple Top Sodium Potassium Chloride Carbon Dioxide Anion Gap BUN Creatinine Estim Creat Clear Calc Estimated GFR POC Glucose 181 H Random Glucose Lactic Acid 2.4 H* Lactic Acid F/U @ 2Hr 1.7 Calcium Magnesium Total Bilirubin AST ALT Alkaline Phosphatase B-Natriuretic Peptide Total Protein Albumin Urine Color Urine Appearance Urine pH Ur Specific [place] Urine Protein Urine Glucose (UA) Urine Ketones Urine Blood Urine Nitrite Ur Leukocyte Esterase Urine RBC Urine WBC Ur Squamous Epith Cells Calcium Oxalate Crystal Urine Bacteria Hyaline Casts 05/17/23 20:14 Neutrophils % (Manual) Band Neutrophils % Lymphocytes % (Manual) Monocytes % (Manual) Abs Neuts (Manual) Lymphocytes # (Manual) Monocytes # (Manual) Toxic Granulation Dohle Bodies Platelet Estimate Plt Morphology Comment RBC Morphology Hypochromasia Microcytosis Spherocytes Ovalocytes Schistocytes Hold Purple Top Sodium Potassium Chloride Carbon Dioxide Anion Gap BUN Creatinine Estim Creat Clear Calc Estimated GFR POC Glucose 194 H Random Glucose Lactic Acid Lactic Acid F/U @ 2Hr Calcium Magnesium Total Bilirubin AST ALT Alkaline Phosphatase B-Natriuretic Peptide Total Protein Albumin Urine Color Urine Appearance Urine pH Ur Specific [place] Urine Protein Urine Glucose (UA) Urine Ketones Urine Blood Urine Nitrite Ur Leukocyte Esterase Urine RBC Urine WBC Ur Squamous Epith Cells Calcium Oxalate Crystal Urine Bacteria Hyaline Casts Microbiology Microbiology Results: Microbiology 05/16/23 23:11 Blood - Venous Blood Culture - Preliminary Prelim: GNR Gram Stain only 05/17/23 01:35 Lung - Expectorated Sputum Gram Stain - Final 05/11/23 09:56 Blood - Venous Blood Culture - Final No growth after 5 days. 05/11/23 09:48 Blood - Venous Blood Culture - Final No growth after 5 days. 05/11/23 Unknown Urine clean catch - Urine swanson top Urine Culture - Final Escherichia coli Physical Exam 2 Vital Signs: Vital Signs: Last Vital Signs Temp 98 F 05/17/23 23:32 Pulse 86 05/17/23 23:32 Resp 18 05/17/23 23:32 BP 118/62 05/17/23 23:32 Pulse Ox 90 L 05/17/23 23:32 O2 Del Method High Flow Nasal C annula 05/17/23 23:32 O2 Flow Rate 40 05/17/23 23:32 FiO2 40 05/17/23 23:32 Oxygen Flow Rate 7 05/13/23 09:15 BMI result Body Mass Index 22.1 Const: General: cooperative HEENT: Head: Yes normal to inspection Face and sinus: Yes normal facial exam Mouth: Normal oral and palatal mucosa present Teeth and gingiva: d entition normal Eyes: General: appearance normal, both eyes and all related structures P upils: Equal, round and reactive pupils present Resp: Effort & Inspection: normal respiratory effort Cardio: Rate: regular rate Rhythm: regular rhythm GI: Palpation (GI): Soft to palpation and nontender : General: Yes no CVA tenderness Back/Spine/Pelvis: Back: no CVA tenderness Skin: General skin exam: no rashes or lesions noted Neuro: General: moves all extremities Cranial nerves: Yes Equal, round and reactive pupils present Extrem: General: Yes normal to inspection Psych: Appearance: grossly normal Assessment and Plan Assessment and plan (1) UTI due to extended-spectrum beta lactamase (ESBL) producing Escherichia coli: Status: Acute (2) Acute and chronic respiratory failure with hypoxia: Status: Acute Plan Hypoxia,lung chronic disease.,worsening CXR may be infection ?CHF Also concern over ESBL E coli colonizing urine Would agree with [facility] for now. Prognosis poor. Time Spent With Patient Time: Total time managing care of this patient today ____ minutes.
[2023-05-18] VITALS (11 sets, daily range): BP systolic 102–118; BP diastolic 54–61; PULSE 70–91; RESP 17–24; TEMP 36.1–36.6; O2SAT 90–94
[2023-05-18] MEDS: LORazepam 0.5 MG TABLET PO (02:56)
[2023-05-18] MEDS: Albuterol/Iprat 2.5/0.5MG 3 ML AMPUL.NEB INHALE ×6 (03:14→23:30)
[2023-05-18] MEDS: methylPREDNISolone Sod Succ 40 MG/ML VIAL IVPUSH ×3 (05:18→21:58)
[2023-05-18] MEDS: guaiFENesin 100 MG/5 ML LIQUID PO ×2 (05:18→19:40)
[2023-05-18 06:14] LABS: Hematocrit 25.1 % (42.0-52.0); Hemoglobin 7.7 g/dl (14.0-18.0); Mean Corpuscular HGB Conc 30.7 g/dl (31.0-36.0); Mean Corpuscular Hemoglobin 23.3 pg (27.0-33.0); Mean Corpuscular Volume 76.1 fL (80.0-98.0); Mean Platelet Volume 10.5 fL (9.4-12.4); Platelet Count 289 X10*3/uL (160-400); Red Cell Distribution Width 18.2 % (11.0-16.0); White Blood Count 8.4 X10*3/uL (4.8-10.8)
[2023-05-18 06:30] LABS: Anion Gap 10 (12-20); Blood Urea Nitrogen 27 mg/dL (9-16); Calcium 8.6 mg/dL (8.4-10.2); Carbon Dioxide 28 mmol/L (22-29); Chloride 104 mmol/L (96-108); Creatinine Clr Calc Pharmacy 67.9; Estimated Glomerular Filt Rate > 60; Glucose Random 284 mg/dL (60-115); Potassium 3.1 mmol/L (3.3-5.1); Sodium 139 mmol/L (135-145)
[2023-05-18 06:36] LABS: B Type Natriuretic Peptide 66 pg/mL (<100)
[2023-05-18 08:01] LABS: Glucose, Whole Blood 250 mg/dL (60-115)
[2023-05-18] MEDS: Potassium Chloride Packet 20 MEQ PACKET 40 MEQ PO (08:07)
[2023-05-18] MEDS: carvediloL 6.25 MG TABLET PO ×2 (08:07→19:39)
[2023-05-18] MEDS: Insulin Lispro 100 UNIT/ML 3 ML VIAL SUBCUT ×4 (08:07→21:51)
[2023-05-18] MEDS: guaiFENesin LA 600 MG TAB.ER.12H PO ×2 (08:07→19:40)
[2023-05-18] MEDS: Sacubitril/Valsartan 24/26 1 TAB TABLET PO ×2 (08:08→19:40)
[2023-05-18] MEDS: Bumetanide 1 MG/4 ML VIAL IVPUSH (08:08)
[2023-05-18] MEDS: Pravastatin Sodium 10 MG TABLET PO (08:08)
[2023-05-18] MEDS: Apixaban 5 MG TABLET PO ×2 (08:08→19:39)
[2023-05-18] MEDS: Doxycycline Monohydrate 100 MG CAPSULE PO ×2 (08:08→19:40)
[2023-05-18 08:09] LABS: Iron 12 mcg/dL (45-160); Percent Iron Saturation 11 % (15-50); Total Iron Binding Capacity 114 mcg/dL (228-428); Unsaturated Iron Binding 102 ug/dL
[2023-05-18] MEDS: Erythromycin Base 0.5% Oph Oin 1 GM TUBE 1.27 CM EYE-BOTH ×4 (08:09→21:57)
[2023-05-18] MEDS: 0.9 % Sodium Chloride Flush 3 ML SYRINGE IVFLUSH ×3 (08:10→19:41)
--- NOTE | 2023-05-18 10:47 | MHC.CM.PN ---
EMR REVIEWED, PT REMAINS ON HI FLOW O2, NO PLAN FOR DC AT THIS TIME, [facility] FOLLOWING FOR STR AND HAS BEEN UPDATED VIA [facility], CM WILL CONT TO FOLLOW DC NEEDS.
[2023-05-18 11:51] LABS: Glucose, Whole Blood 309 mg/dL (60-115)
--- NOTE | 2023-05-18 11:51 | MHC.SL.SWA ---
Speech Pathologist Impression: Risk of aspiration, oropharyngeal dysphagia Risk of Aspiration Due to: Medically Fragile History of Pneumonia Dysphasia Diet Status: No changes at this time Liquid Consistency and Strategies for Safe Swallow: Liquid Intake Recommendation: Thin Liquid Intake Strategies: Small Sips No Straws Solid Food Consistency: Dietary Recommendations: Pureed (NDD1) Additional Modifications to Solid Foods: Patient requires 1-1 feeding. Provide patient with frequent rest/02 breaks during meal. Add sauces and gravies to purees and blend well. Monitor patient closely for adequate 02 saturation, sudden drop in 02 saturation, upper airway noise or coughing while eating (clinical signs of aspiration) and discontinue if evident. Oral Medication Intake: Crushed with Puree Please contact the pharmacy regarding appropriate crushable or liquid drug formulations that are available whenever modified delivery is recommended. Compensatory Strategies and Precautions to be Taken for Safe Swallow: Sitting Upright (90 deg) Double Swallow No Straw Liquids from Cup Liquids from Spoon Small Bites and Sips Rate of Ingestion Change Oral Check Avoid Specific Foods Supervision While Eating and Drinking for Safe Swallow: Total Assistance (1:1) Foods to Avoid: Difficult to chew solids. Swallowing Recommended Treatments: Compens. Strategy Educat. Recommendation for Speech: Inpatient Speech Therapy Comment: Patient presents with a mild to moderate oral pharyngeal dysphagia and a highly vulnerable respiratory status due to prolonged illness. Patient is remarkably weak, and continues to have difficulty with adequate 02 saturation with high flow nasal cannula present. During today's assessment, patient evidenced preference for puree foods, which were tolerated well. Patient tolerated thin liquid but has absent swallow trigger, evidencing signs or aspiration and increased risk when drinking by straw. Recommend PUREED diet, thin liquids with NO STRAW, pills crushed in puree. SHOE CUTTER will continute to follow. Wax Pattern Assembler Clinican/Clinical Fellow: No Supervisory Statement: I have reviewed and agree with the student/clinical fellow's documentation: N/A Speech Language Pathologist: Ирина Wilkes M.A., [facility]
--- NOTE | 2023-05-18 13:01 | HO.PM.IMPN ---
Subjective Subjective Date of Service: 05/18/23 Interval History: Seen and evaluated this morning Stable overnight but still on Highflow O2 denies any fever or chills Review of Systems Review of Systems: Yes all other systems are reviewed and are negative Physical Exam Vital Signs: Vital Signs: Last Vital Signs Temp 97.9 F 05/18/23 11:46 Pulse 90 05/18/23 11:46 Resp 24 H 05/18/23 11:46 BP 103/56 L 05/18/23 11:46 Pulse Ox 94 05/18/23 11:46 O2 Del Method High Flow Nasal C annula 05/18/23 11:46 O2 Flow Rate 33.1 05/18/23 11:46 FiO2 37.8 05/18/23 11:46 Oxygen Flow Rate 7 05/13/23 09:15 BMI result Body Mass Index 22.1 Const: Other: Constitutional : Awake, interactive, not in distress Neck : Normal inspection, Supple Cardiovascular : RRR, no JVP, no lower extremity edema Respiratory : fair bilateral air entry, no significant crackles, wheezes or rhonchi, on High flow O2 Gastrointestinal: soft, lax, Normal bowel sounds, Non tender Skin : Warm, Dry Neurological : Alert & oriented x3, No focal deficit Objective Data Active Medications Acetaminophen (Acetaminophen 325 Mg Tablet) 650 mg PO Q6H PRN PRN Reason: Pain, Mild (Pain Scale 1-3) Last Admin: 05/16/23 05:09 Dose: 650 mg Documented By: JADIEL Albuterol/Ipratropium (Albuterol/Iprat 2.5/0.5mg 3 Ml Ampul.Neb) 3 ml INHALE RQ4H [facility] Last Admin: 05/18/23 11:13 Dose: 3 ml Documented By: CECILIA Apixaban (Apixaban 5 Mg Tablet) 5 mg PO BID [facility] Last Admin: 05/18/23 08:08 Dose: 5 mg Documented By: MANNY Benzocaine (Throat Lozenge, Medicated Lozenge) 1 lozenge MUCOUS MEM Q2H PRN PRN Reason: Sore Throat Last Admin: 05/13/23 22:35 Dose: 1 lozenge Bumetanide (Bumetanide 1 Mg/4 Ml Vial) 1 mg IVPUSH DAILY [facility]; Protocol Last Admin: 05/18/23 08:08 Dose: 1 mg Documented By: MANNY Carvedilol (Carvedilol 6.25 Mg Tablet) 6.25 mg PO BID [facility]; Protocol Last Admin: 05/18/23 08:07 Dose: 6.25 mg Documented By: MANNY Dextrose (Dextrose 50 % 25 Gm/50 Ml Syringe) 25 gm IVPUSH Q15M PRN; Protocol PRN Reason: per Hypoglycemia Standing Ord. Docusate Sodium (Docusate Sodium 100 Mg Capsule) 100 mg PO BID [facility] Last Admin: 05/18/23 08:09 Dose: Not Given Documented By: MANNY Non-Admin Reason: Patient Refused Doxycycline Monohydrate (Doxycycline Monohydrate 100 Mg Capsule) 100 mg PO BID [facility] Last Admin: 05/18/23 08:08 Dose: 100 mg Documented By: MANNY Erythromycin (Erythromycin Base 0.5% Oph Oin 1 Gm Tube) 1.27 cm EYE-BOTH QID [facility] Last Admin: 05/18/23 11:50 Dose: 1.27 cm Documented By: MANNY Glucose (Glucose Gel 15 Gm Gel..Gram.) 15 gm PO Q15M PRN; Protocol PRN Reason: per Hypoglycemia Standing Ord. Guaifenesin (Guaifenesin 100 Mg/5 Ml Liquid) 5 ml PO Q4H PRN PRN Reason: Cough Last Admin: 05/18/23 05:18 Dose: 5 ml Documented By: YAKELIN Guaifenesin (Guaifenesin La 600 Mg Tab.Er.12h) 600 mg PO BID [facility] Last Admin: 05/18/23 08:07 Dose: 600 mg Documented By: MANNY Meropenem 1 gm/ Sodium (Chloride) 100 mls @ 200 mls/hr IV Q8H [facility] Last Infusion: 05/18/23 09:16 Dose: Infused Documented By: MANNY Insulin Human Lispro (Insulin Lispro 100 Unit/Ml 3 Ml Vial) 0 unit SUBCUT QIDACHS [facility]; Protocol Last Admin: 05/18/23 11:50 Dose: 8 unit Documented By: MANNY Lactulose (Lactulose 20 Gm/30 Ml Solution) 20 gm PO BID [facility] Last Admin: 05/18/23 08:09 Dose: Not Given Documented By: MANNY Non-Admin Reason: Patient Refused Latanoprost (Latanoprost 0.005 % Ophth Thalia 2.5 Ml Drops) 1 drop EYE-RIGHT BEDTIME [facility] Last Admin: 05/17/23 21:24 Dose: 1 drop Documented By: YAKELIN Melatonin (Melatonin 3 Mg Tablet) 6 mg PO BEDTIME PRN PRN Reason: Insomnia Last Admin: 05/17/23 22:52 Dose: 6 mg Documented By: YAKELIN Methylprednisolone Sodium Succinate (Methylprednisolone Sod Succ 40 Mg/Ml Vial) 40 mg IVPUSH Q8H [facility] Last Admin: 05/18/23 05:18 Dose: 40 mg Documented By: YAKELIN Omeprazole (Omeprazole 40 Mg Capsule.Dr) 40 mg PO DAILY@0630 [facility] Last Admin: 05/18/23 05:17 Dose: Not Given Documented By: YAKELIN Non-Admin Reason: cannot be crushed Ondansetron HCl (Ondansetron Hcl 4 Mg/2 Ml Vial) 4 mg IVPUSH Q8H PRN PRN Reason: Nausea and Vomiting Pravastatin Sodium (Pravastatin Sodium 10 Mg Tablet) 10 mg PO DAILY [facility] Last Admin: 05/18/23 08:08 Dose: 10 mg Documented By: MANNY Sacubitril/Valsartan (Sacubitril/Valsartan 1 Tab Tablet) 1 tab PO BID [facility]; Protocol Last Admin: 05/18/23 08:08 Dose: 1 tab Documented By: MANNY Sodium Chloride (0.9 % Sodium Chloride Flush 3 Ml Syringe) 3 ml IVFLUSH QSHIFT [facility] Last Admin: 05/18/23 08:10 Dose: 3 ml Documented By: MANNY Labs 05/18/23 06:00 05/18/23 06:00 Labs: Laboratory Results - last 24 hr 05/17/23 05/17/23 05/17/23 15:13 16:16 17:47 MCV MCH MCHC RDW Plt Count MPV Absolute Nucleated RBC Nucleated RBC % (auto) Anion Gap Estim Creat Clear Calc Estimated GFR POC Glucose 181 H Random Glucose Lactic Acid 2.4 H* Lactic Acid F/U @ 2Hr 1.7 Calcium Iron TIBC % Saturation Unsat Iron Binding B-Natriuretic Peptide 05/17/23 05/18/23 05/18/23 20:14 06:00 07:50 MCV 76.1 L MCH 23.3 L MCHC 30.7 L RDW 18.2 H Plt Count 289 MPV 10.5 Absolute Nucleated RBC 0.000 Nucleated RBC % (auto) 0.0 Anion Gap 10 L Estim Creat Clear Calc 67.9 Estimated GFR > 60 POC Glucose 194 H 250 H Random Glucose 284 H Lactic Acid Lactic Acid F/U @ 2Hr Calcium 8.6 Iron 12 L TIBC 114 L % Saturation 11 L Unsat Iron Binding 102 B-Natriuretic Peptide 66 05/18/23 11:46 MCV MCH MCHC RDW Plt Count MPV Absolute Nucleated RBC Nucleated RBC % (auto) Anion Gap Estim Creat Clear Calc Estimated GFR POC Glucose 309 H Random Glucose Lactic Acid Lactic Acid F/U @ 2Hr Calcium Iron TIBC % Saturation Unsat Iron Binding B-Natriuretic Peptide Microbiology Microbiology Results: Microbiology 05/17/23 01:35 Gram Stain - Final Lung - Expectorated Sputum Sputum Culture - Preliminary Gram negative dana 05/16/23 23:11 Blood Culture - Preliminary Blood - Venous Gram negative dana 05/16/23 23:11 Blood Culture - Preliminary Blood - Venous No growth after 24 hours. 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 Pt will be admitted to the hospital for treatment and further evaluation of acute on chronic hypoxic respiratory failure in the setting of recurrent pneumonia and COPD exacerbation in a patient with hx of ESBL pneumonia. 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 Depression CARE team following denies any intent to harm himself ESBL E. coli UTI Continue Meropenem (05/16) ID input appreciated; Po Doxycycline Influenza infection Tamiflu Left eye pain/reduced vision/white substance Contact [facility] who report pt had two recent complicated, unsuccessful cataract surgeries Has so far failed at replacing patient's left eye lens White substance in eye is a Kenalog injection to reduce edema Per ophthalmology recommendations, can use erythromycin ointment and systolic analgesics for pain management Patient should follow-up outpatient with Ophthalmology Nonischemic cardiomyopathy Continue carvedilol resume Entresto Paroxysmal AFib Continue Eliquis Mxi-meuckcj-ofcphnnib diabetes type 2 resume metformin, SSI Diabetic diet Physical deconditioning PT rec SNF Full Code DVT Prophylaxis: On Eliquis need for inpt: copd exacergation with hypoxia Ongoing hospitalization for acute hypoxic resp failure, aspiration pneumonia, needing IV diuretics and antibitoics and close monitoring with SNF placement Quality Stroke Does the patient have a stroke diagnosis?: No VTE Prior VTE?: No VTE Risk Level:: Medical - moderate - high VTE Device Contraindication: Treatment Not Indicated VTE Drug Contraindication: N/A - Med Ordered
--- NOTE | 2023-05-18 16:02 | P.PNPL_ITS ---
Subjective Subjective Date of Service: 05/18/23 Interval history: FiO2 requirements improving, now on OxyMask 4 L. Objective Data Labs 05/18/23 06:00 05/18/23 06:00 Labs: Laboratory Results - last 24 hr 05/17/23 05/17/23 05/17/23 16:16 17:47 20:14 WBC RBC Hgb Hct MCV MCH MCHC RDW Plt Count MPV Absolute Nucleated RBC Nucleated RBC % (auto) Sodium Potassium Chloride Carbon Dioxide Anion Gap BUN Creatinine Estim Creat Clear Calc Estimated GFR POC Glucose 181 H 194 H Random Glucose Lactic Acid F/U @ 2Hr 1.7 Calcium Iron TIBC % Saturation Unsat Iron Binding B-Natriuretic Peptide 05/18/23 05/18/23 05/18/23 06:00 07:50 11:46 WBC 8.4 RBC 3.30 L D Hgb 7.7 L D Hct 25.1 L D MCV 76.1 L MCH 23.3 L MCHC 30.7 L RDW 18.2 H Plt Count 289 MPV 10.5 Absolute Nucleated RBC 0.000 Nucleated RBC % (auto) 0.0 Sodium 139 Potassium 3.1 L Chloride 104 Carbon Dioxide 28 Anion Gap 10 L BUN 27 H Creatinine 0.74 Estim Creat Clear Calc 67.9 Estimated GFR > 60 POC Glucose 250 H 309 H Random Glucose 284 H Lactic Acid F/U @ 2Hr Calcium 8.6 Iron 12 L TIBC 114 L % Saturation 11 L Unsat Iron Binding 102 B-Natriuretic Peptide 66 Microbiology Microbiology Results: Microbiology 05/17/23 01:35 Lung - Expectorated Sputum Gram Stain - Final 05/17/23 01:35 Lung - Expectorated Sputum Sputum Culture - Preliminary Gram negative dana 05/16/23 23:11 Blood - Venous Blood Culture - Preliminary Gram negative dana 05/16/23 23:11 Blood - Venous Blood Culture - Preliminary No growth after 24 hours. 05/11/23 09:56 Blood - Venous Blood Culture - Final No growth after 5 days. 05/11/23 09:48 Blood - Venous Blood Culture - Final No growth after 5 days. 05/11/23 Unknown Urine clean catch - Urine swanson top Urine Culture - Final Escherichia coli Physical Exam 2 Vital Signs: Vital Signs: Last Vital Signs Temp 97.8 F 05/18/23 15:15 Pulse 86 05/18/23 15:20 Resp 19 05/18/23 15:20 BP 102/54 L 05/18/23 15:15 Pulse Ox 93 05/18/23 15:15 O2 Del Method High Flow Nasal C annula 05/18/23 15:15 O2 Flow Rate 35 05/18/23 15:15 FiO2 35 05/18/23 15:15 Oxygen Flow Rate 7 05/13/23 09:15 BMI result Body Mass Index 22.1 Const: General: no acute distress, alert and awake Eyes: Sclerae: sclerae normal EOM: EOMs intact bilaterally Neck: Neck: Yes no lymphadenopathy, Yes trachea midline and Yes supple Resp: Effort & Inspection: normal respiratory effort and no respiratory distress Auscultation: clear to auscultation bilaterally Cardio: Rate: regular rate Rhythm: regular rhythm Heart sounds: no gallops, no murmurs and no rubs GI: Palpation (GI): Soft to palpation and Other GI palpation findings present ( Nontender) Auscultation: normal bowel sounds Extrem: General: Yes no pedal edema, No clubbing and No cyanosis Procedures Date of Service Date of Service: 05/18/23 Assessment and Plan Assessment and plan (1) COPD (chronic obstructive pulmonary disease): Status: Acute (2) Supplemental oxygen dependent: Status: Acute (3) Bronchiectasis: Status: Acute Plan Impression: 82-year-old gentleman with underlying advanced COPD, bronchiectasis, chronic hypoxic respiratory failure on 2 L of supplemental oxygen now admitted with influenza A and ESBL E.Coli UTI. Respiratory status improved now titrated OxyMask. Recommendations: Respiratory status is waxing and waning, now appears to be secondary to an aspiration event secondary to septic encephalopathy from UTI. Continue to titrate supplemental oxygen down baseline levels. Taper down steroids. Consider discontinuation of doxycycline. Continue duo nebs. Sputum culture with Gram-negative rods, likely chronic colonization. Time Spent With Patient Time: Total time managing care of this patient today ____ minutes. Progress Note: Quality Stroke Does the patient have a stroke diagnosis?: No
[2023-05-18 16:31] LABS: Glucose, Whole Blood 289 mg/dL (60-115)
[2023-05-18] MEDS: Docusate Sodium 100 MG CAPSULE PO (19:40)
[2023-05-18 20:37] LABS: Glucose, Whole Blood 232 mg/dL (60-115)
[2023-05-18] MEDS: Latanoprost 0.005 % Ophth Sol 2.5 ML DROPS 1 DROP EYE-RIGHT (21:53)
[2023-05-19] VITALS (12 sets, daily range): BP systolic 98–131; BP diastolic 56–82; PULSE 58–101; RESP 16–22; TEMP 36.1–37.1; O2SAT 84–97
[2023-05-19 00:21] LABS: Procalcitonin 0.71 ng/mL
[2023-05-19] MEDS: guaiFENesin 100 MG/5 ML LIQUID PO ×4 (00:39→20:13)
[2023-05-19] MEDS: Albuterol/Iprat 2.5/0.5MG 3 ML AMPUL.NEB INHALE ×5 (04:02→19:30)
[2023-05-19] MEDS: Omeprazole 40 MG CAPSULE.DR PO (04:52)
[2023-05-19] MEDS: methylPREDNISolone Sod Succ 40 MG/ML VIAL IVPUSH ×2 (04:52→20:13)
[2023-05-19 07:03] LABS: Hematocrit 27.4 % (42.0-52.0); Hemoglobin 8.5 g/dl (14.0-18.0); Mean Corpuscular Volume 77.4 fL (80.0-98.0); Mean Platelet Volume 10.4 fL (9.4-12.4); Platelet Count 410 X10*3/uL (160-400); Red Blood Count 3.54 X10*6/uL (4.60-5.80); Red Cell Distribution Width 19.2 % (11.0-16.0); White Blood Count 13.6 X10*3/uL (4.8-10.8)
[2023-05-19 07:29] LABS: Anion Gap 9 (12-20); Blood Urea Nitrogen 37 mg/dL (9-16); Calcium 9.1 mg/dL (8.4-10.2); Carbon Dioxide 33 mmol/L (22-29); Chloride 104 mmol/L (96-108); Creatinine Clr Calc Pharmacy 77.3; Estimated Glomerular Filt Rate > 60; Glucose Random 252 mg/dL (60-115); Potassium 4.2 mmol/L (3.3-5.1); Sodium 142 mmol/L (135-145)
[2023-05-19 08:02] LABS: Glucose, Whole Blood 242 mg/dL (60-115)
[2023-05-19] MEDS: Lactulose 20 GM/30 ML SOLUTION PO (08:17)
[2023-05-19] MEDS: Docusate Sodium 100 MG CAPSULE PO ×2 (08:18→20:12)
[2023-05-19] MEDS: Erythromycin Base 0.5% Oph Oin 1 GM TUBE 1.27 CM EYE-BOTH ×4 (08:18→20:12)
[2023-05-19] MEDS: guaiFENesin LA 600 MG TAB.ER.12H PO ×2 (08:18→20:12)
[2023-05-19] MEDS: Apixaban 5 MG TABLET PO ×2 (08:18→20:12)
[2023-05-19] MEDS: Doxycycline Monohydrate 100 MG CAPSULE PO ×2 (08:18→20:12)
[2023-05-19] MEDS: Pravastatin Sodium 10 MG TABLET PO (08:18)
[2023-05-19] MEDS: Insulin Lispro 100 UNIT/ML 3 ML VIAL SUBCUT ×5 (08:19→22:40)
[2023-05-19] MEDS: 0.9 % Sodium Chloride Flush 3 ML SYRINGE IVFLUSH ×3 (08:20→20:16)
[2023-05-19] MEDS: Iron Sucrose Complex 200 MG in 0.9 % Sodium Chloride 100 ML 440 MG IV (09:13)
[2023-05-19 11:15] LABS: Glucose, Whole Blood 370 mg/dL (60-115)
--- NOTE | 2023-05-19 11:33 | P.PNIM_ITS ---
Subjective Subjective Date of Service: 05/19/23 Interval History: Seen and evaluated this morning Stable overnight and weaned down to 5L tolerating modified diet denies any fever or chills Review of Systems Review of Systems: Yes all other systems are reviewed and are negative Physical Exam 2 Vital Signs: Vital Signs: Last Vital Signs Temp 98.7 F 05/19/23 11:12 Pulse 96 05/19/23 11:20 Resp 18 05/19/23 11:20 BP 131/61 05/19/23 11:12 Pulse Ox 94 05/19/23 11:12 O2 Del Method Oxymask 05/19/23 11:12 O2 Flow Rate 7 05/19/23 11:12 FiO2 35 05/18/23 20:00 Oxygen Flow Rate 7 05/13/23 09:15 BMI result Body Mass Index 22.1 Const: Other: Constitutional : Awake, interactive, not in distress Neck : Normal inspection, Supple Cardiovascular : RRR, no JVP, no lower extremity edema Respiratory : fair bilateral air entry, no significant crackles, wheezes or rhonchi, on NC O2 supplement Gastrointestinal: soft, lax, Normal bowel sounds, Non tender Skin : Warm, Dry Neurological : Alert & oriented x3, No focal deficit Objective Data Active Medications Acetaminophen (Acetaminophen 325 Mg Tablet) 650 mg PO Q6H PRN PRN Reason: Pain, Mild (Pain Scale 1-3) Last Admin: 05/16/23 05:09 Dose: 650 mg Documented By: JADIEL Albuterol/Ipratropium (Albuterol/Iprat 2.5/0.5mg 3 Ml Ampul.Neb) 3 ml INHALE RQ4H [facility] Last Admin: 05/19/23 11:19 Dose: 3 ml Documented By: SHARON Apixaban (Apixaban 5 Mg Tablet) 5 mg PO BID [facility] Last Admin: 05/19/23 08:18 Dose: 5 mg Documented By: SCAR Benzocaine (Throat Lozenge, Medicated Lozenge) 1 lozenge MUCOUS MEM Q2H PRN PRN Reason: Sore Throat Last Admin: 05/13/23 22:35 Dose: 1 lozenge Carvedilol (Carvedilol 6.25 Mg Tablet) 6.25 mg PO BID [facility]; Protocol Last Admin: 05/19/23 09:09 Dose: Not Given Documented By: SCAR Non-Admin Reason: Physician Held Med Dextrose (Dextrose 50 % 25 Gm/50 Ml Syringe) 25 gm IVPUSH Q15M PRN; Protocol PRN Reason: per Hypoglycemia Standing Ord. Docusate Sodium (Docusate Sodium 100 Mg Capsule) 100 mg PO BID [facility] Last Admin: 05/19/23 08:18 Dose: 100 mg Documented By: SCAR Doxycycline Monohydrate (Doxycycline Monohydrate 100 Mg Capsule) 100 mg PO BID [facility] Last Admin: 05/19/23 08:18 Dose: 100 mg Documented By: SCAR Erythromycin (Erythromycin Base 0.5% Oph Oin 1 Gm Tube) 1.27 cm EYE-BOTH QID [facility] Last Admin: 05/19/23 08:18 Dose: 1.27 cm Documented By: SCAR Glucose (Glucose Gel 15 Gm Gel..Gram.) 15 gm PO Q15M PRN; Protocol PRN Reason: per Hypoglycemia Standing Ord. Guaifenesin (Guaifenesin 100 Mg/5 Ml Liquid) 5 ml PO Q4H PRN PRN Reason: Cough Last Admin: 05/19/23 04:43 Dose: 5 ml Documented By: NAUN Guaifenesin (Guaifenesin La 600 Mg Tab.Er.12h) 600 mg PO BID [facility] Last Admin: 05/19/23 08:18 Dose: 600 mg Documented By: SCAR Meropenem 1 gm/ Sodium (Chloride) 100 mls @ 200 mls/hr IV Q8H [facility] Last Infusion: 05/19/23 09:09 Dose: Infused Documented By: SCAR Iron Sucrose 200 mg/ Sodium (Chloride) 110 mls @ 440 mls/hr IV DAILY [facility] Stop: 05/21/23 09:14 Last Infusion: 05/19/23 09:32 Dose: Infused Documented By: SCAR Insulin Human Lispro (Insulin Lispro 100 Unit/Ml 3 Ml Vial) 0 unit SUBCUT QIDACHS [facility]; Protocol Last Admin: 05/19/23 08:19 Dose: 4 unit Documented By: SCAR Lactulose (Lactulose 20 Gm/30 Ml Solution) 20 gm PO BID [facility] Last Admin: 05/19/23 08:17 Dose: 20 gm Documented By: SCAR Latanoprost (Latanoprost 0.005 % Ophth Thalia 2.5 Ml Drops) 1 drop EYE-RIGHT BEDTIME [facility] Last Admin: 05/18/23 21:53 Dose: 1 drop Documented By: NAUN Melatonin (Melatonin 3 Mg Tablet) 6 mg PO BEDTIME PRN PRN Reason: Insomnia Last Admin: 05/17/23 22:52 Dose: 6 mg Documented By: YAKELIN Methylprednisolone Sodium Succinate (Methylprednisolone Sod Succ 40 Mg/Ml Vial) 40 mg IVPUSH Q12H [facility] Omeprazole (Omeprazole 40 Mg Capsule.Dr) 40 mg PO DAILY@0630 [facility] Last Admin: 05/19/23 04:52 Dose: 40 mg Documented By: NAUN Ondansetron HCl (Ondansetron Hcl 4 Mg/2 Ml Vial) 4 mg IVPUSH Q8H PRN PRN Reason: Nausea and Vomiting Pravastatin Sodium (Pravastatin Sodium 10 Mg Tablet) 10 mg PO DAILY [facility] Last Admin: 05/19/23 08:18 Dose: 10 mg Documented By: SCAR Sacubitril/Valsartan (Sacubitril/Valsartan 1 Tab Tablet) 1 tab PO BID [facility]; Protocol Last Admin: 05/19/23 09:09 Dose: Not Given Documented By: SCAR Non-Admin Reason: Physician Held Med Sodium Chloride (0.9 % Sodium Chloride Flush 3 Ml Syringe) 3 ml IVFLUSH QSHIFT [facility] Last Admin: 05/19/23 08:20 Dose: 3 ml Documented By: SCAR Labs 05/19/23 06:29 05/19/23 06:29 Labs: Laboratory Results - last 24 hr 05/18/23 05/18/23 05/18/23 11:46 16:25 20:09 MCV MCH MCHC RDW Plt Count MPV Absolute Nucleated RBC Nucleated RBC % (auto) Hold Purple Top Anion Gap Estim Creat Clear Calc Estimated GFR POC Glucose 309 H 289 H 232 H Random Glucose Calcium Procalcitonin 05/18/23 05/19/23 05/19/23 23:35 06:29 07:29 MCV 77.4 L MCH 24.0 L MCHC 31.0 RDW 19.2 H Plt Count 410 H D MPV 10.4 Absolute Nucleated RBC 0.000 Nucleated RBC % (auto) 0.0 Hold Purple Top SEE NOTE Anion Gap 9 L Estim Creat Clear Calc 77.3 Estimated GFR > 60 POC Glucose 242 H Random Glucose 252 H Calcium 9.1 Procalcitonin 0.71 05/19/23 11:11 MCV MCH MCHC RDW Plt Count MPV Absolute Nucleated RBC Nucleated RBC % (auto) Hold Purple Top Anion Gap Estim Creat Clear Calc Estimated GFR POC Glucose 370 H* Random Glucose Calcium Procalcitonin Microbiology Microbiology Results: Microbiology 05/16/23 23:11 Blood Culture - Final Blood - Venous Escherichia coli 05/17/23 01:35 Gram Stain - Final Lung - Expectorated Sputum Sputum Culture - Final Escherichia coli 05/16/23 23:11 Blood Culture - Preliminary Blood - Venous No growth after 48 hours. 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 Pt will be admitted to the hospital for treatment and further evaluation of acute on chronic hypoxic respiratory failure in the setting of recurrent pneumonia and COPD exacerbation in a patient with hx of ESBL pneumonia. 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 Depression CARE team following denies any intent to harm himself Influenza infection Tamiflu Left eye pain/reduced vision/white substance Contact [facility] who report pt had two recent complicated, unsuccessful cataract surgeries Has so far failed at replacing patient's left eye lens White substance in eye is a Kenalog injection to reduce edema Per ophthalmology recommendations, can use erythromycin ointment and systolic analgesics for pain management Patient should follow-up outpatient with Ophthalmology Nonischemic cardiomyopathy Continue carvedilol resume Entresto Paroxysmal AFib Continue Eliquis Uvw-gukbssj-yjzjtarzo diabetes type 2 resume metformin, SSI Diabetic diet Physical deconditioning PT rec SNF Full Code DVT Prophylaxis: On Eliquis need for inpt: copd exacergation with hypoxia Ongoing hospitalization for acute hypoxic resp failure, aspiration pneumonia, needing IV diuretics and antibitoics and close monitoring with SNF placement Quality Stroke Does the patient have a stroke diagnosis?: No VTE Prior VTE?: No VTE Risk Level:: Medical - moderate - high VTE Device Contraindication: Treatment Not Indicated VTE Drug Contraindication: N/A - Med Ordered
--- NOTE | 2023-05-19 11:44 | P.PNPL_ITS ---
Subjective Subjective Date of Service: 05/19/23 Interval history: Normal aspiration events. Respiratory status is essentially at baseline. Objective Data Labs 05/19/23 06:29 05/19/23 06:29 Labs: Laboratory Results - last 24 hr 05/18/23 05/18/23 05/18/23 11:46 16:25 20:09 WBC RBC Hgb Hct MCV MCH MCHC RDW Plt Count MPV Absolute Nucleated RBC Nucleated RBC % (auto) Hold Purple Top Sodium Potassium Chloride Carbon Dioxide Anion Gap BUN Creatinine Estim Creat Clear Calc Estimated GFR POC Glucose 309 H 289 H 232 H Random Glucose Calcium Procalcitonin 05/18/23 05/19/23 05/19/23 23:35 06:29 07:29 WBC 13.6 H RBC 3.54 L Hgb 8.5 L Hct 27.4 L MCV 77.4 L MCH 24.0 L MCHC 31.0 RDW 19.2 H Plt Count 410 H D MPV 10.4 Absolute Nucleated RBC 0.000 Nucleated RBC % (auto) 0.0 Hold Purple Top SEE NOTE Sodium 142 Potassium 4.2 D Chloride 104 Carbon Dioxide 33 H Anion Gap 9 L BUN 37 H Creatinine 0.65 Estim Creat Clear Calc 77.3 Estimated GFR > 60 POC Glucose 242 H Random Glucose 252 H Calcium 9.1 Procalcitonin 0.71 05/19/23 11:11 WBC RBC Hgb Hct MCV MCH MCHC RDW Plt Count MPV Absolute Nucleated RBC Nucleated RBC % (auto) Hold Purple Top Sodium Potassium Chloride Carbon Dioxide Anion Gap BUN Creatinine Estim Creat Clear Calc Estimated GFR POC Glucose 370 H* Random Glucose Calcium Procalcitonin Microbiology Microbiology Results: Microbiology 05/16/23 23:11 Blood - Venous Blood Culture - Final Escherichia coli 05/17/23 01:35 Lung - Expectorated Sputum Gram Stain - Final 05/17/23 01:35 Lung - Expectorated Sputum Sputum Culture - Final Escherichia coli 05/16/23 23:11 Blood - Venous Blood Culture - Preliminary No growth after 48 hours. 05/11/23 09:56 Blood - Venous Blood Culture - Final No growth after 5 days. 05/11/23 09:48 Blood - Venous Blood Culture - Final No growth after 5 days. 05/11/23 Unknown Urine clean catch - Urine swanson top Urine Culture - Final Escherichia coli Physical Exam 2 Vital Signs: Vital Signs: Last Vital Signs Temp 98.7 F 05/19/23 11:12 Pulse 96 05/19/23 11:20 Resp 18 05/19/23 11:20 BP 131/61 05/19/23 11:12 Pulse Ox 94 05/19/23 11:12 O2 Del Method Oxymask 05/19/23 11:12 O2 Flow Rate 7 05/19/23 11:12 FiO2 35 05/18/23 20:00 Oxygen Flow Rate 7 05/13/23 09:15 BMI result Body Mass Index 22.1 Const: General: no acute distress, alert and awake Eyes: Sclerae: sclerae normal EOM: EOMs intact bilaterally Neck: Neck: Yes no lymphadenopathy, Yes trachea midline and Yes supple Resp: Effort & Inspection: normal respiratory effort and no respiratory distress Auscultation: clear to auscultation bilaterally Cardio: Rate: regular rate Rhythm: regular rhythm Heart sounds: no gallops, no murmurs and no rubs GI: Palpation (GI): Soft to palpation and Other GI palpation findings present ( Nontender) Auscultation: normal bowel sounds Extrem: General: Yes no pedal edema, No clubbing and No cyanosis Procedures Date of Service Date of Service: 05/19/23 Assessment and Plan Assessment and plan (1) COPD (chronic obstructive pulmonary disease): Status: Acute (2) Bronchiectasis: Status: Acute (3) Supplemental oxygen dependent: Status: Acute Plan Impression: 82-year-old gentleman with underlying advanced COPD, bronchiectasis, chronic hypoxic respiratory failure on 2 L of supplemental oxygen now admitted with influenza A and ESBL E.Coli UTI. Respiratory status improved now titrated back down to OxyMask 4 L. Recommendations: Respiratory status is waxing and waning, now appears to be secondary to an aspiration event secondary to septic encephalopathy from UTI. Continue to titrate supplemental oxygen down baseline levels. Taper down steroids. Consider discontinuation of doxycycline. Continue duo nebs. Sputum culture with Gram-negative rods, likely chronic colonization. Time Spent With Patient Time: Total time managing care of this patient today ____ minutes. Progress Note: Quality Stroke Does the patient have a stroke diagnosis?: No
[2023-05-19] MEDS: Bumetanide 1 MG/4 ML VIAL IVPUSH (13:27)
[2023-05-19] MEDS: Throat Lozenge, Medicated LOZENGE 1 LOZENGE MUCOUS MEM (13:28)
[2023-05-19 15:41] LABS: Glucose, Whole Blood 315 mg/dL (60-115)
[2023-05-19] MEDS: Sacubitril/Valsartan 24/26 1 TAB TABLET PO (20:12)
[2023-05-19] MEDS: carvediloL 6.25 MG TABLET PO (20:12)
[2023-05-19] MEDS: Latanoprost 0.005 % Ophth Sol 2.5 ML DROPS 1 DROP EYE-RIGHT (20:17)
[2023-05-19 20:49] LABS: Glucose, Whole Blood 180 mg/dL (60-115)
--- NOTE | 2023-05-19 23:40 | P.PNID_ITS ---
Subjective Subjective Date of Service: 05/19/23 Critical Care Time (minutes): 15 Comment: he has E coli bacteremia also E coli ESBL sputum and urine prior left nonobstructive nephrolithiasis Objective Data Labs 05/19/23 06:29 05/19/23 06:29 Labs: Laboratory Results - last 24 hr 05/18/23 05/19/23 05/19/23 23:35 06:29 07:29 WBC 13.6 H RBC 3.54 L Hgb 8.5 L Hct 27.4 L MCV 77.4 L MCH 24.0 L MCHC 31.0 RDW 19.2 H Plt Count 410 H D MPV 10.4 Absolute Nucleated RBC 0.000 Nucleated RBC % (auto) 0.0 Hold Purple Top SEE NOTE Sodium 142 Potassium 4.2 D Chloride 104 Carbon Dioxide 33 H Anion Gap 9 L BUN 37 H Creatinine 0.65 Estim Creat Clear Calc 77.3 Estimated GFR > 60 POC Glucose 242 H Random Glucose 252 H Calcium 9.1 Procalcitonin 0.71 05/19/23 05/19/23 05/19/23 11:11 15:33 20:44 WBC RBC Hgb Hct MCV MCH MCHC RDW Plt Count MPV Absolute Nucleated RBC Nucleated RBC % (auto) Hold Purple Top Sodium Potassium Chloride Carbon Dioxide Anion Gap BUN Creatinine Estim Creat Clear Calc Estimated GFR POC Glucose 370 H* 315 H 180 H Random Glucose Calcium Procalcitonin Microbiology Microbiology Results: Microbiology 05/16/23 23:11 Blood - Venous Blood Culture - Final Escherichia coli 05/17/23 01:35 Lung - Expectorated Sputum Gram Stain - Final 05/17/23 01:35 Lung - Expectorated Sputum Sputum Culture - Final Escherichia coli 05/16/23 23:11 Blood - Venous Blood Culture - Preliminary No growth after 48 hours. 05/11/23 09:56 Blood - Venous Blood Culture - Final No growth after 5 days. 05/11/23 09:48 Blood - Venous Blood Culture - Final No growth after 5 days. 05/11/23 Unknown Urine clean catch - Urine swanson top Urine Culture - Final Escherichia coli Physical Exam 2 Vital Signs: Vital Signs: Last Vital Signs Temp 97.0 F 05/19/23 19:34 Pulse 80 05/19/23 19:34 Resp 16 05/19/23 19:34 BP 129/60 05/19/23 19:34 Pulse Ox 94 05/19/23 19:34 O2 Del Method Oxymask 05/19/23 19:34 O2 Flow Rate 8 05/19/23 19:34 FiO2 35 05/18/23 20:00 Oxygen Flow Rate 7 05/13/23 09:15 BMI result Body Mass Index 22.1 Const: General: cooperative HEENT: Head: Yes normal to inspection Face and sinus: Yes normal facial exam Mouth: Normal oral and palatal mucosa present Teeth and gingiva: d entition normal Eyes: General: appearance normal, both eyes and all related structures P upils: Equal, round and reactive pupils present Resp: Effort & Inspection: normal respiratory effort Cardio: Rate: regular rate Rhythm: regular rhythm GI: Palpation (GI): Soft to palpation and nontender : General: Yes no CVA tenderness Back/Spine/Pelvis: Back: no CVA tenderness Skin: General skin exam: no rashes or lesions noted Neuro: Other: somnolent General: moves all extremities Cranial nerves: Yes Equal, round and reactive pupils present Extrem: General: Yes normal to inspection Psych: Appearance: grossly normal Assessment and Plan Assessment and plan (1) Bacteremia due to Escherichia coli: Problem details: He has E coli likely source urine. He also has aspiration Status: Acute Assessment and Plan: Merem likely two weeks,await sensitivities. CT abdomen and pelvis check for obstructive stone and Urology if one found. Prognosis still poor and now bacteremia. (2) Aspiration pneumonia: Status: Acute (3) Swallowing problem: Status: Acute Time Spent With Patient Time: Total time managing care of this patient today ____ minutes.
[2023-05-20] VITALS (9 sets, daily range): BP systolic 98–126; BP diastolic 45–58; PULSE 66–90; RESP 16–22; TEMP 36.2–36.9; O2SAT 90–97
[2023-05-20] MEDS: guaiFENesin 100 MG/5 ML LIQUID PO ×3 (01:04→21:58)
[2023-05-20] MEDS: Albuterol/Iprat 2.5/0.5MG 3 ML AMPUL.NEB INHALE ×5 (04:32→20:13)
[2023-05-20] MEDS: Omeprazole 40 MG CAPSULE.DR PO (06:33)
[2023-05-20 07:16] LABS: Glucose, Whole Blood 244 mg/dL (60-115)
[2023-05-20] MEDS: Iron Sucrose Complex 200 MG in 0.9 % Sodium Chloride 100 ML 440 MG IV (08:23)
[2023-05-20] MEDS: Insulin Lispro 100 UNIT/ML 3 ML VIAL SUBCUT ×4 (08:23→21:59)
[2023-05-20] MEDS: methylPREDNISolone Sod Succ 40 MG/ML VIAL IVPUSH ×2 (08:24→21:59)
[2023-05-20] MEDS: Apixaban 5 MG TABLET PO ×2 (08:24→22:01)
[2023-05-20] MEDS: guaiFENesin LA 600 MG TAB.ER.12H PO ×2 (08:24→22:02)
[2023-05-20] MEDS: Erythromycin Base 0.5% Oph Oin 1 GM TUBE 1.27 CM EYE-BOTH ×2 (08:24→17:39)
[2023-05-20] MEDS: Pravastatin Sodium 10 MG TABLET PO (08:24)
[2023-05-20] MEDS: Docusate Sodium 100 MG CAPSULE PO ×2 (08:24→22:02)
[2023-05-20] MEDS: 0.9 % Sodium Chloride Flush 3 ML SYRINGE IVFLUSH ×3 (08:25→22:03)
[2023-05-20] MEDS: Lactulose 20 GM/30 ML SOLUTION PO ×2 (08:25→22:02)
[2023-05-20 08:43] LABS: Hematocrit 28.2 % (42.0-52.0); Hemoglobin 8.5 g/dl (14.0-18.0); Mean Corpuscular HGB Conc 30.1 g/dl (31.0-36.0); Mean Corpuscular Hemoglobin 23.2 pg (27.0-33.0); Mean Corpuscular Volume 76.8 fL (80.0-98.0); Mean Platelet Volume 10.4 fL (9.4-12.4); Platelet Count 461 X10*3/uL (160-400); Red Blood Count 3.67 X10*6/uL (4.60-5.80); Red Cell Distribution Width 19.3 % (11.0-16.0); White Blood Count 14.4 X10*3/uL (4.8-10.8)
[2023-05-20] MEDS: Bumetanide 1 MG TABLET PO (08:48)
[2023-05-20 09:01] LABS: Anion Gap 12 (12-20); Blood Urea Nitrogen 36 mg/dL (9-16); Calcium 8.8 mg/dL (8.4-10.2); Carbon Dioxide 33 mmol/L (22-29); Chloride 100 mmol/L (96-108); Estimated Glomerular Filt Rate > 60; Glucose Random 241 mg/dL (60-115); Potassium 4.3 mmol/L (3.3-5.1); Sodium 141 mmol/L (135-145)
[2023-05-20] MEDS: Sacubitril/Valsartan 24/26 1 TAB TABLET PO ×2 (09:42→22:01)
[2023-05-20] MEDS: carvediloL 6.25 MG TABLET PO ×2 (10:48→22:01)
[2023-05-20 11:26] LABS: Glucose, Whole Blood 268 mg/dL (60-115)
--- NOTE | 2023-05-20 13:01 | P.PNIM_ITS ---
Subjective Subjective Date of Service: 05/20/23 Interval History: Seen and evaluated this morning Stable overnight and weaned down to 5L tolerating modified diet denies any fever or chills Physical Exam 2 Vital Signs: Vital Signs: Last Vital Signs Temp 97.1 F 05/20/23 11:19 Pulse 73 05/20/23 11:19 Resp 20 05/20/23 11:19 BP 108/58 L 05/20/23 11:19 Pulse Ox 97 05/20/23 11:19 O2 Del Method Oxymask 05/20/23 11:19 O2 Flow Rate 7 05/20/23 11:19 FiO2 35 05/18/23 20:00 Oxygen Flow Rate 7 05/13/23 09:15 BMI result Body Mass Index 22.1 Const: Other: Constitutional : Awake, interactive, not in distress Neck : Normal inspection, Supple Cardiovascular : RRR, no JVP, no lower extremity edema Respiratory : fair bilateral air entry, no significant crackles, wheezes or rhonchi, on NC O2 supplement Gastrointestinal: soft, lax, Normal bowel sounds, Non tender Skin : Warm, Dry Neurological : Alert & oriented x3, No focal deficit Objective Data Active Medications Acetaminophen (Acetaminophen 325 Mg Tablet) 650 mg PO Q6H PRN PRN Reason: Pain, Mild (Pain Scale 1-3) Last Admin: 05/16/23 05:09 Dose: 650 mg Documented By: JADIEL Albuterol/Ipratropium (Albuterol/Iprat 2.5/0.5mg 3 Ml Ampul.Neb) 3 ml INHALE RQ4H [facility] Last Admin: 05/20/23 11:14 Dose: 3 ml Documented By: SHAHID Apixaban (Apixaban 5 Mg Tablet) 5 mg PO BID [facility] Last Admin: 05/20/23 08:24 Dose: 5 mg Documented By: SCAR Benzocaine (Throat Lozenge, Medicated Lozenge) 1 lozenge MUCOUS MEM Q2H PRN PRN Reason: Sore Throat Last Admin: 05/19/23 13:28 Dose: 1 lozenge Documented By: SCAR Bumetanide (Bumetanide 1 Mg Tablet) 1 mg PO DAILY [facility]; Protocol Last Admin: 05/20/23 08:48 Dose: 1 mg Documented By: SCAR Carvedilol (Carvedilol 6.25 Mg Tablet) 6.25 mg PO BID [facility]; Protocol Last Admin: 05/20/23 10:48 Dose: 6.25 mg Documented By: SCAR Dextrose (Dextrose 50 % 25 Gm/50 Ml Syringe) 25 gm IVPUSH Q15M PRN; Protocol PRN Reason: per Hypoglycemia Standing Ord. Docusate Sodium (Docusate Sodium 100 Mg Capsule) 100 mg PO BID [facility] Last Admin: 05/20/23 08:24 Dose: 100 mg Documented By: SCAR Erythromycin (Erythromycin Base 0.5% Oph Oin 1 Gm Tube) 1.27 cm EYE-BOTH QID [facility] Last Admin: 05/20/23 08:24 Dose: 1.27 cm Documented By: SCAR Glucose (Glucose Gel 15 Gm Gel..Gram.) 15 gm PO Q15M PRN; Protocol PRN Reason: per Hypoglycemia Standing Ord. Guaifenesin (Guaifenesin 100 Mg/5 Ml Liquid) 5 ml PO Q4H PRN PRN Reason: Cough Last Admin: 05/20/23 01:04 Dose: 5 ml Documented By: NAUN Guaifenesin (Guaifenesin La 600 Mg Tab.Er.12h) 600 mg PO BID [facility] Last Admin: 05/20/23 08:24 Dose: 600 mg Documented By: SCAR Meropenem 1 gm/ Sodium (Chloride) 100 mls @ 200 mls/hr IV Q8H [facility] Last Infusion: 05/20/23 09:06 Dose: Infused Documented By: SCAR Iron Sucrose 200 mg/ Sodium (Chloride) 110 mls @ 440 mls/hr IV DAILY [facility] Stop: 05/21/23 09:14 Last Infusion: 05/20/23 08:38 Dose: Infused Documented By: SCAR Insulin Human Lispro (Insulin Lispro 100 Unit/Ml 3 Ml Vial) 0 unit SUBCUT QIDACHS [facility]; Protocol Last Admin: 05/20/23 11:59 Dose: 6 unit Documented By: SCAR Lactulose (Lactulose 20 Gm/30 Ml Solution) 20 gm PO BID [facility] Last Admin: 05/20/23 08:25 Dose: 20 gm Documented By: SCAR Latanoprost (Latanoprost 0.005 % Ophth Thalia 2.5 Ml Drops) 1 drop EYE-RIGHT BEDTIME [facility] Last Admin: 05/19/23 20:17 Dose: 1 drop Documented By: NAUN Melatonin (Melatonin 3 Mg Tablet) 6 mg PO BEDTIME PRN PRN Reason: Insomnia Last Admin: 05/17/23 22:52 Dose: 6 mg Documented By: YAKELIN Methylprednisolone Sodium Succinate (Methylprednisolone Sod Succ 40 Mg/Ml Vial) 40 mg IVPUSH Q12H [facility] Last Admin: 05/20/23 08:24 Dose: 40 mg Documented By: SCAR Omeprazole (Omeprazole 40 Mg Capsule.Dr) 40 mg PO DAILY@0630 [facility] Last Admin: 05/20/23 06:33 Dose: 40 mg Documented By: NAUN Ondansetron HCl (Ondansetron Hcl 4 Mg/2 Ml Vial) 4 mg IVPUSH Q8H PRN PRN Reason: Nausea and Vomiting Pravastatin Sodium (Pravastatin Sodium 10 Mg Tablet) 10 mg PO DAILY [facility] Last Admin: 05/20/23 08:24 Dose: 10 mg Documented By: SCAR Sacubitril/Valsartan (Sacubitril/Valsartan 1 Tab Tablet) 1 tab PO BID [facility]; Protocol Last Admin: 05/20/23 09:42 Dose: 1 tab Documented By: SCAR Sodium Chloride (0.9 % Sodium Chloride Flush 3 Ml Syringe) 3 ml IVFLUSH QSHIFT [facility] Last Admin: 05/20/23 08:25 Dose: 3 ml Documented By: SCAR Labs 05/20/23 08:00 05/20/23 08:00 Labs: Laboratory Results - last 24 hr 05/19/23 05/19/23 05/20/23 15:33 20:44 07:13 MCV MCH MCHC RDW Plt Count MPV Absolute Nucleated RBC Nucleated RBC % (auto) Anion Gap Estim Creat Clear Calc Estimated GFR POC Glucose 315 H 180 H 244 H Random Glucose Calcium 05/20/23 05/20/23 08:00 11:21 MCV 76.8 L MCH 23.2 L MCHC 30.1 L RDW 19.3 H Plt Count 461 H MPV 10.4 Absolute Nucleated RBC 0.000 Nucleated RBC % (auto) 0.0 Anion Gap 12 Estim Creat Clear Calc 75.0 Estimated GFR > 60 POC Glucose 268 H Random Glucose 241 H Calcium 8.8 Microbiology Microbiology Results: Microbiology 05/16/23 23:11 Blood Culture - Final Blood - Venous Escherichia coli 05/17/23 01:35 Gram Stain - Final Lung - Expectorated Sputum Sputum Culture - Final Escherichia coli Assessment and Plan (1) Bacteremia due to Escherichia coli: Status: Acute (2) Aspiration pneumonia: Status: Acute (3) Swallowing problem: Status: Acute Plan Pt is a 82-year-old male with a PMH significant for?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, bronchiectases, ESBL pneumonia, JESSA, HFrEF, nonischemic cardiomyopathy, paroxysmal AFib on Eliquis, HTN, HLD, [id number] diabetes type 2, GERD, BPH, hx nephrolithiasis, and lumbar degenerative disc disease who presents to the ED with?SOB, WRIGHT, fatigue, and productive cough. Pt will be admitted to the hospital for treatment and further evaluation of acute on chronic hypoxic respiratory failure in the setting of recurrent pneumonia and COPD exacerbation in a patient with hx of ESBL pneumonia. ESBL E.Coli Bacteremia Source is urine Started Meropenem (05/16) ID following Check CT scan of abd\pel to rule out any kidney\bladder stone to place PICC line for Abx as OP Acute hypoxic respiratory failure d/t pulmomonary edema and aspiration CXR showed worsening infiltrates , now improving, was aspirating PANTOGRAPH TRANSFERRER eval: Pureed diet DC IV Bumex, start PO Incentive spirometry , lung physiotherapy Continue Meropenem (05/16) IV steroids, wean down wean down as tolerated Lactic acidosis Lactic acidosis due to nebulizers not sepsis contraction alkalosis resolved COPD exacerbation bronchodilators by Neb, IV steroid. Depression CARE team following denies any intent to harm himself Influenza infection Tamiflu Left eye pain/reduced vision/white substance Contact [facility] who report pt had two recent complicated, unsuccessful cataract surgeries Has so far failed at replacing patient's left eye lens White substance in eye is a Kenalog injection to reduce edema Per ophthalmology recommendations, can use erythromycin ointment and systolic analgesics for pain management Patient should follow-up outpatient with Ophthalmology Nonischemic cardiomyopathy Continue carvedilol resume Entresto Paroxysmal AFib Continue Eliquis [id number] diabetes type 2 resume metformin, SSI Diabetic diet Physical deconditioning PT rec SNF Full Code DVT Prophylaxis: On Eliquis need for inpt: copd exacergation with hypoxia Ongoing hospitalization for acute hypoxic resp failure, aspiration pneumonia, needing IV diuretics and antibitoics and close monitoring with SNF placement Quality Stroke Does the patient have a stroke diagnosis?: No VTE Prior VTE?: No VTE Risk Level:: Medical - moderate - high VTE Device Contraindication: Treatment Not Indicated VTE Drug Contraindication: N/A - Med Ordered
--- NOTE | 2023-05-20 13:27 | P.PNPL_ITS ---
Subjective Subjective Date of Service: 05/20/23 Interval history: Normal aspiration event. Septic encephalopathy improved. Respiratory status close to baseline. Persistently hyperoxygenated. Objective Data Labs 05/20/23 08:00 05/20/23 08:00 Labs: Laboratory Results - last 24 hr 05/19/23 05/19/23 05/20/23 15:33 20:44 07:13 WBC RBC Hgb Hct MCV MCH MCHC RDW Plt Count MPV Absolute Nucleated RBC Nucleated RBC % (auto) Sodium Potassium Chloride Carbon Dioxide Anion Gap BUN Creatinine Estim Creat Clear Calc Estimated GFR POC Glucose 315 H 180 H 244 H Random Glucose Calcium 05/20/23 05/20/23 08:00 11:21 WBC 14.4 H RBC 3.67 L Hgb 8.5 L Hct 28.2 L MCV 76.8 L MCH 23.2 L MCHC 30.1 L RDW 19.3 H Plt Count 461 H MPV 10.4 Absolute Nucleated RBC 0.000 Nucleated RBC % (auto) 0.0 Sodium 141 Potassium 4.3 Chloride 100 Carbon Dioxide 33 H Anion Gap 12 BUN 36 H Creatinine 0.67 Estim Creat Clear Calc 75.0 Estimated GFR > 60 POC Glucose 268 H Random Glucose 241 H Calcium 8.8 Microbiology Microbiology Results: Microbiology 05/16/23 23:11 Blood - Venous Blood Culture - Final Escherichia coli 05/17/23 01:35 Lung - Expectorated Sputum Gram Stain - Final 05/17/23 01:35 Lung - Expectorated Sputum Sputum Culture - Final Escherichia coli 05/16/23 23:11 Blood - Venous Blood Culture - Preliminary No growth after 48 hours. 05/11/23 09:56 Blood - Venous Blood Culture - Final No growth after 5 days. 05/11/23 09:48 Blood - Venous Blood Culture - Final No growth after 5 days. 05/11/23 Unknown Urine clean catch - Urine swanson top Urine Culture - Final Escherichia coli Physical Exam 2 Vital Signs: Vital Signs: Last Vital Signs Temp 97.1 F 05/20/23 11:19 Pulse 73 05/20/23 11:19 Resp 20 05/20/23 11:19 BP 108/58 L 05/20/23 11:19 Pulse Ox 97 05/20/23 11:19 O2 Del Method Oxymask 05/20/23 11:19 O2 Flow Rate 7 05/20/23 11:19 FiO2 35 05/18/23 20:00 Oxygen Flow Rate 7 05/13/23 09:15 BMI result Body Mass Index 22.1 Const: General: no acute distress, alert and awake Eyes: Sclerae: sclerae normal EOM: EOMs intact bilaterally Neck: Neck: Yes no lymphadenopathy, Yes trachea midline and Yes supple Resp: Effort & Inspection: normal respiratory effort and no respiratory distress Auscultation: clear to auscultation bilaterally Cardio: Rate: regular rate Rhythm: regular rhythm Heart sounds: no gallops, no murmurs and no rubs GI: Palpation (GI): Soft to palpation and Other GI palpation findings present ( Nontender) Auscultation: normal bowel sounds Extrem: General: Yes no pedal edema, No clubbing and No cyanosis Procedures Date of Service Date of Service: 05/20/23 Assessment and Plan Assessment and plan (1) COPD (chronic obstructive pulmonary disease): Status: Acute (2) Supplemental oxygen dependent: Status: Acute (3) Acute and chronic respiratory failure with hypoxia: Status: Acute Plan Impression: 82-year-old gentleman with underlying advanced COPD, bronchiectasis, chronic hypoxic respiratory failure on 2 L of supplemental oxygen now admitted with influenza A and ESBL E.Coli UTI. Respiratory status improved now titrated back down to OxyMask 4 L. Recommendations: Continue to titrate supplemental oxygen down to baseline levels, maintain O2 saturation of 88-92%. Taper down steroids. Continue duo nebs. Sputum culture with ESBL E coli, likely chronic colonization. Time Spent With Patient Time: Total time managing care of this patient today ____ minutes. Progress Note: Quality Stroke Does the patient have a stroke diagnosis?: No
[2023-05-20 15:36] LABS: Glucose, Whole Blood 198 mg/dL (60-115)
[2023-05-20 20:44] LABS: Glucose, Whole Blood 210 mg/dL (60-115)
[2023-05-20 21:59] LABS: Glucose, Whole Blood 163 mg/dL (60-115)
[2023-05-20] MEDS: Melatonin 3 MG TABLET 6 MG PO (22:07)
[2023-05-21] VITALS (11 sets, daily range): BP systolic 90–150; BP diastolic 46–60; PULSE 59–98; RESP 18–20; TEMP 36.1–37.5; O2SAT 91–100
[2023-05-21] MEDS: Albuterol/Iprat 2.5/0.5MG 3 ML AMPUL.NEB INHALE ×4 (02:36→20:13)
[2023-05-21] MEDS: Omeprazole 40 MG CAPSULE.DR PO (06:35)
[2023-05-21 06:45] LABS: Hematocrit 27.5 % (42.0-52.0); Hemoglobin 8.5 g/dl (14.0-18.0); Mean Corpuscular HGB Conc 30.9 g/dl (31.0-36.0); Mean Corpuscular Hemoglobin 24.6 pg (27.0-33.0); Mean Corpuscular Volume 79.7 fL (80.0-98.0); Mean Platelet Volume 10.3 fL (9.4-12.4); Platelet Count 417 X10*3/uL (160-400); Red Blood Count 3.45 X10*6/uL (4.60-5.80); White Blood Count 13.5 X10*3/uL (4.8-10.8)
[2023-05-21 06:52] LABS: Anion Gap 11 (12-20); Blood Urea Nitrogen 30 mg/dL (9-16); Calcium 8.6 mg/dL (8.4-10.2); Carbon Dioxide 36 mmol/L (22-29); Chloride 99 mmol/L (96-108); Estimated Glomerular Filt Rate > 60; Glucose Random 232 mg/dL (60-115); Potassium 4.5 mmol/L (3.3-5.1); Sodium 141 mmol/L (135-145)
[2023-05-21 07:50] LABS: Glucose, Whole Blood 240 mg/dL (60-115)
[2023-05-21] MEDS: Erythromycin Base 0.5% Oph Oin 1 GM TUBE 1.27 CM EYE-BOTH ×3 (08:26→23:20)
[2023-05-21] MEDS: Insulin Lispro 100 UNIT/ML 3 ML VIAL SUBCUT ×3 (08:26→17:01)
[2023-05-21] MEDS: Docusate Sodium 100 MG CAPSULE PO ×2 (08:27→23:18)
[2023-05-21] MEDS: guaiFENesin LA 600 MG TAB.ER.12H PO ×2 (08:28→23:17)
[2023-05-21] MEDS: Pravastatin Sodium 10 MG TABLET PO (08:28)
[2023-05-21] MEDS: Apixaban 5 MG TABLET PO ×2 (08:28→23:17)
[2023-05-21] MEDS: 0.9 % Sodium Chloride Flush 3 ML SYRINGE IVFLUSH ×2 (08:28→16:07)
[2023-05-21] MEDS: Lactulose 20 GM/30 ML SOLUTION PO ×2 (08:29→23:16)
[2023-05-21] MEDS: methylPREDNISolone Sod Succ 40 MG/ML VIAL IVPUSH ×2 (08:29→23:16)
--- NOTE | 2023-05-21 11:48 | MHC.SL.SWA ---
Speech Pathologist Impression: Risk of aspiration, oropharyngeal dysphagia Risk of Aspiration Due to: Medically Fragile History of Pneumonia Dysphasia Diet Status: DOWNGRADE to NTL Liquid Consistency and Strategies for Safe Swallow: Liquid Intake Recommendation: [place] Thick Liquid Intake Strategies: Small Sips No Straws Solid Food Consistency: Dietary Recommendations: Pureed (NDD1) Additional Modifications to Solid Foods: Patient evidenced clinical signs of aspiration with intake of water. Recommend DOWNGRADE to nectar thick liquids. Patient requires 1-1 feeding. Provide patient with frequent rest/02 breaks during meal. Add sauces and gravies to purees and blend well. Monitor patient closely for adequate 02 saturation, sudden drop in 02 saturation, upper airway noise or coughing while eating (clinical signs of aspiration) and discontinue if evident. Oral Medication Intake: Crushed with Puree Please contact the pharmacy regarding appropriate crushable or liquid drug formulations that are available whenever modified delivery is recommended. Compensatory Strategies and Precautions to be Taken for Safe Swallow: Sitting Upright (90 deg) Double Swallow No Straw Liquids from Cup Liquids from Spoon Small Bites and Sips Rate of Ingestion Change Oral Check Avoid Specific Foods Supervision While Eating and Drinking for Safe Swallow: Total Assistance (1:1) Foods to Avoid: Difficult to chew solids. Swallowing Recommended Treatments: Compens. Strategy Educat. Recommendation for Speech: Inpatient Speech Therapy Senior Mechanical Design Engineer Clinican/Clinical Fellow: No Supervisory Statement: I have reviewed and agree with the student/clinical fellow's documentation: N/A Speech Language Pathologist: Ирина Wilkes M.A., CCC-WOOD CRAFTER
[2023-05-21] MEDS: Iron Sucrose Complex 200 MG in 0.9 % Sodium Chloride 100 ML 440 MG IV (11:49)
--- NOTE | 2023-05-21 12:06 | HO.PM.IMPN ---
Subjective Subjective Date of Service: 05/21/23 Interval History: Seen and evaluated this morning Stable overnight and weaned down to 5L mask tolerating modified diet denies any fever or chills Review of Systems Review of Systems: Yes all other systems are reviewed and are negative Physical Exam Vital Signs: Vital Signs: Last Vital Signs Temp 97.7 F 05/21/23 12:04 Pulse 70 05/21/23 12:04 Resp 20 05/21/23 12:04 BP 104/58 L 05/21/23 12:04 Pulse Ox 96 05/21/23 12:04 O2 Del Method Oxymask 05/21/23 12:04 O2 Flow Rate 4 05/21/23 12:04 FiO2 35 05/18/23 20:00 Oxygen Flow Rate 7 05/13/23 09:15 BMI result Body Mass Index 22.1 Const: Other: Constitutional : Awake, interactive, not in distress Neck : Normal inspection, Supple Cardiovascular : RRR, no JVP, no lower extremity edema Respiratory : fair bilateral air entry, no significant crackles, wheezes or rhonchi, on O2 supplement Gastrointestinal: soft, lax, Normal bowel sounds, Non tender Skin : Warm, Dry Neurological : Alert & oriented x3, No focal deficit Objective Data Active Medications Acetaminophen (Acetaminophen 325 Mg Tablet) 650 mg PO Q6H PRN PRN Reason: Pain, Mild (Pain Scale 1-3) Last Admin: 05/16/23 05:09 Dose: 650 mg Documented By: JADIEL Albuterol/Ipratropium (Albuterol/Iprat 2.5/0.5mg 3 Ml Ampul.Neb) 3 ml INHALE RQ4H [facility] Last Admin: 05/21/23 11:24 Dose: 3 ml Documented By: CECILIA Apixaban (Apixaban 5 Mg Tablet) 5 mg PO BID [facility] Last Admin: 05/21/23 08:28 Dose: 5 mg Documented By: MILVIA Benzocaine (Throat Lozenge, Medicated Lozenge) 1 lozenge MUCOUS MEM Q2H PRN PRN Reason: Sore Throat Last Admin: 05/19/23 13:28 Dose: 1 lozenge Documented By: SCAR Bumetanide (Bumetanide 1 Mg Tablet) 1 mg PO DAILY [facility]; Protocol Last Admin: 05/21/23 08:38 Dose: Not Given Documented By: MILVIA Non-Admin Reason: Physician Held Med Carvedilol (Carvedilol 6.25 Mg Tablet) 6.25 mg PO BID [facility]; Protocol Last Admin: 05/21/23 08:28 Dose: Not Given Documented By: MILVIA Non-Admin Reason: low B/P Dextrose (Dextrose 50 % 25 Gm/50 Ml Syringe) 25 gm IVPUSH Q15M PRN; Protocol PRN Reason: per Hypoglycemia Standing Ord. Docusate Sodium (Docusate Sodium 100 Mg Capsule) 100 mg PO BID [facility] Last Admin: 05/21/23 08:27 Dose: 100 mg Documented By: MILVIA Erythromycin (Erythromycin Base 0.5% Oph Oin 1 Gm Tube) 1.27 cm EYE-BOTH QID [facility] Last Admin: 05/21/23 08:26 Dose: 1.27 cm Documented By: MILVIA Glucose (Glucose Gel 15 Gm Gel..Gram.) 15 gm PO Q15M PRN; Protocol PRN Reason: per Hypoglycemia Standing Ord. Guaifenesin (Guaifenesin 100 Mg/5 Ml Liquid) 5 ml PO Q4H PRN PRN Reason: Cough Last Admin: 05/20/23 21:58 Dose: 5 ml Documented By: TATIANA Guaifenesin (Guaifenesin La 600 Mg Tab.Er.12h) 600 mg PO BID [facility] Last Admin: 05/21/23 08:28 Dose: 600 mg Documented By: MILVIA Meropenem 1 gm/ Sodium (Chloride) 100 mls @ 200 mls/hr IV Q8H [facility] Last Admin: 05/21/23 12:04 Dose: Not Given Documented By: MILVIA Non-Admin Reason: pt off unit getting midline Insulin Human Lispro (Insulin Lispro 100 Unit/Ml 3 Ml Vial) 0 unit SUBCUT QIDACHS [facility]; Protocol Last Admin: 05/21/23 08:26 Dose: 4 unit Documented By: MILVIA Lactulose (Lactulose 20 Gm/30 Ml Solution) 20 gm PO BID [facility] Last Admin: 05/21/23 08:29 Dose: 20 gm Documented By: MILVIA Latanoprost (Latanoprost 0.005 % Ophth Thalia 2.5 Ml Drops) 1 drop EYE-RIGHT BEDTIME [facility] Last Admin: 05/20/23 21:00 Dose: Not Given Documented By: TATIANA Non-Admin Reason: Patient Refused Melatonin (Melatonin 3 Mg Tablet) 6 mg PO BEDTIME PRN PRN Reason: Insomnia Last Admin: 05/20/23 22:07 Dose: 6 mg Documented By: TATIANA Methylprednisolone Sodium Succinate (Methylprednisolone Sod Succ 40 Mg/Ml Vial) 40 mg IVPUSH Q12H [facility] Last Admin: 05/21/23 08:29 Dose: 40 mg Documented By: MILVIA Omeprazole (Omeprazole 40 Mg Capsule.) 40 mg PO DAILY@0630 [facility] Last Admin: 05/21/23 06:35 Dose: 40 mg Documented By: TATIANA Ondansetron HCl (Ondansetron Hcl 4 Mg/2 Ml Vial) 4 mg IVPUSH Q8H PRN PRN Reason: Nausea and Vomiting Pravastatin Sodium (Pravastatin Sodium 10 Mg Tablet) 10 mg PO DAILY [facility] Last Admin: 05/21/23 08:28 Dose: 10 mg Documented By: MILVIA Sacubitril/Valsartan (Sacubitril/Valsartan 1 Tab Tablet) 1 tab PO BID [facility]; Protocol Last Admin: 05/20/23 22:01 Dose: 1 tab Documented By: TATIANA Sodium Chloride (0.9 % Sodium Chloride Flush 3 Ml Syringe) 3 ml IVFLUSH QSHIFT [facility] Last Admin: 05/21/23 08:28 Dose: 3 ml Documented By: MILVIA Labs 05/21/23 06:10 05/21/23 06:10 Labs: Laboratory Results - last 24 hr 05/20/23 05/20/23 05/20/23 15:32 20:40 21:56 MCV MCH MCHC RDW Plt Count MPV Absolute Nucleated RBC Nucleated RBC % (auto) Anion Gap Estim Creat Clear Calc Estimated GFR POC Glucose 198 H 210 H 163 H Random Glucose Calcium 05/21/23 05/21/23 06:10 07:39 MCV 79.7 L MCH 24.6 L MCHC 30.9 L RDW 21.0 H Plt Count 417 H MPV 10.3 Absolute Nucleated RBC 0.000 Nucleated RBC % (auto) 0.0 Anion Gap 11 L Estim Creat Clear Calc 75.0 Estimated GFR > 60 POC Glucose 240 H Random Glucose 232 H Calcium 8.6 Assessment and Plan (1) Bacteremia due to Escherichia coli: Status: Acute (2) Aspiration pneumonia: Status: Acute (3) Swallowing problem: Status: Acute (4) UTI due to extended-spectrum beta lactamase (ESBL) producing Escherichia coli: Status: Acute Plan Pt is a 82-year-old male with a PMH significant for?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 Pt will be admitted to the hospital for treatment and further evaluation of acute on chronic hypoxic respiratory failure in the setting of recurrent pneumonia and COPD exacerbation in a patient with hx of ESBL pneumonia. 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 Depression CARE team following denies any intent to harm himself Influenza infection Tamiflu Left eye pain/reduced vision/white substance Contact [facility] who report pt had two recent complicated, unsuccessful cataract surgeries Has so far failed at replacing patient's left eye lens White substance in eye is a Kenalog injection to reduce edema Per ophthalmology recommendations, can use erythromycin ointment and systolic analgesics for pain management Patient should follow-up outpatient with Ophthalmology Nonischemic cardiomyopathy Continue carvedilol resume Entresto Paroxysmal AFib Continue Eliquis Oco-lsjjcie-rnyloqxab diabetes type 2 resume metformin, SSI Diabetic diet Physical deconditioning PT rec SNF Full Code DVT Prophylaxis: On Eliquis need for inpt: copd exacergation with hypoxia Ongoing hospitalization for acute hypoxic resp failure, aspiration pneumonia, needing IV diuretics and antibitoics and close monitoring with SNF placement Quality Stroke Does the patient have a stroke diagnosis?: No VTE Prior VTE?: No VTE Risk Level:: Medical - moderate - high VTE Device Contraindication: Treatment Not Indicated VTE Drug Contraindication: N/A - Med Ordered
[2023-05-21 12:30] LABS: Glucose, Whole Blood 218 mg/dL (60-115)
--- NOTE | 2023-05-21 13:44 | MHC.CM.PN ---
EMR REVIEWED, PER MULTIDISCIPLINARY ROUNDS PLAN TO WEAN PT'S O2, PT DOWN TO 4L OXYMASK FROM 9L, ANTIC PT WILL BE MEDICALLY CLEARED FOR STR TOMORROW 05/21, SNF UPDATED AND CM WILL CONT TO FOLLOW DC NEEDS.
--- NOTE | 2023-05-21 15:27 | HO.MIDLINE_ITS ---
Midline Insertion MIDLINE INSERTION Diagnosis: UTI Indication: 2 wks ABT Pertinent Labs: Reviewed Technique: Using sterile technique including cap and mask, glove and drape, the right arm was prepped and draped in the usual sterile fashion of full barrier technique with CHG. Using ultrasound guidance, right brachial vein access was obtained . 20G x 8cm non PASV midline catheter was positioned. The procedure was performed in room 272. Ultrasound was used to document vein patency and for needle entry. A formal ultrasound picture was recorded. Vascul ar Institutional Research Director has released the line for use and it is currently dressed with a StatLock, Tegaderm, and CHG disc. Verification has been performed for blood return and line patency. Arm Circumference: 26cm Equipment: BARD PowerGlide ST midline catheter Catheter Type: 20G x 8cm non PASV catheter Lot #: [id number]
[2023-05-21 15:52] LABS: Glucose, Whole Blood 218 mg/dL (60-115)
[2023-05-21] MEDS: Heparin Sodium,Porcine Flush 50 UNITS, 0.9 % Sodium Chloride Flush 5 ML IVFLUSH ×2 (16:07→23:23)
--- NOTE | 2023-05-21 16:32 | P.CNUR_ITS ---
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 The patient was seen by infectious disease. Urine culture and blood culture ESBL E coli. CT abdomen and pelvis performed on 05/20/2023 notes left kidney nonobstructing stones. Antibiotic therapy as per Infectious Disease. Left kidney stones chronic no hydronephrosis. No acute intervention recommended by at this time. Review of Systems 2 Review of Systems: Ten point review of systems negative other than stated in HPI [facility] Past Medical History Medical History Paroxysmal atrial fibrillation Congestive heart failure Bronchiectasis Acute and chronic respiratory failure BPH loc w urin obs/LUTS Urinary retention History of COVID-19 Chronic anticoagulation History of pneumothorax Diabetes Supplemental oxygen dependent COPD (chronic obstructive pulmonary disease) Kidney stone on left side Hearing loss NICM (nonischemic cardiomyopathy) JESSA (mycobacterium avium-intracellulare) Bronchiectasis Glaucoma Pure hypercholesterolemia GERD (gastroesophageal reflux disease) History of MAC infection Essential hypertension Family History Family History Father No problems noted. Mother Medical history unknown Sister Diabetes Daughter In good health Son In good health Brother No problems noted. Family history: reviewed and not pertinent Surgical History Surgical History History of transurethral resection of bladder tumor (TURBT) History of cataract surgery History of left inguinal hernia repair History of bronchoscopy History of colonoscopy History of lumbar surgery History of cystoscopy Social History Social History Household Members: None Housing: Apartment Are you a primary customer care associate to a significant other at home: No Do you presently have visiting nurse or other home services: Yes ([employer]) Alcohol intake: former Comment: 1:1 sitter in room Patient Tobacco Use Status: Former Tobacco user Quit Date: 10 years ago Tobacco use type: Cigarette e-Cigarette/Vaping Use: Former Use Second Hand Smoke Exposure: No Advance Directives Date on File: 02/03/22 service: No Current occupational status: retired Cognitive needs: No Hearing needs: Yes Vision needs: Yes Meds Allergies Allergy/AdvReac Type Severity Reaction Status Date / Time Penicillins [PENICILLINS] Allergy Intermediate PASSED Verified 05/11/23 08:57 OUT trazodone Allergy Intermediate tremors Verified 05/11/23 08:57 brimonidine [From Alphagan P] Allergy Unknown Verified 05/11/23 08:57 diphenhydramine Allergy Unknown Verified 05/11/23 08:57 [From Benadryl] Active Medications: Current Medications Acetaminophen (Acetaminophen 325 Mg Tablet) 650 mg PO Q6H PRN PRN Reason: Pain, Mild (Pain Scale 1-3) Last Admin: 05/16/23 05:09 Dose: 650 mg Albuterol/Ipratropium (Albuterol/Iprat 2.5/0.5mg 3 Ml Ampul.Neb) 3 ml INHALE RQ4H [facility] Last Admin: 05/21/23 15:08 Dose: Not Given Apixaban (Apixaban 5 Mg Tablet) 5 mg PO BID [facility] Last Admin: 05/21/23 08:28 Dose: 5 mg Benzocaine (Throat Lozenge, Medicated Lozenge) 1 lozenge MUCOUS MEM Q2H PRN PRN Reason: Sore Throat Last Admin: 05/19/23 13:28 Dose: 1 lozenge Bumetanide (Bumetanide 1 Mg Tablet) 1 mg PO DAILY [facility]; Protocol Last Admin: 05/21/23 08:38 Dose: Not Given Carvedilol (Carvedilol 6.25 Mg Tablet) 6.25 mg PO BID [facility]; Protocol Last Admin: 05/21/23 08:28 Dose: Not Given Heparin Sodium (Porcine) 50 (units/ Sodium Chloride 5 ml) 0 units IVFLUSH TID [facility] Last Admin: 05/21/23 16:07 Dose: 50 unit Dextrose (Dextrose 50 % 25 Gm/50 Ml Syringe) 25 gm IVPUSH Q15M PRN; Protocol PRN Reason: per Hypoglycemia Standing Ord. Docusate Sodium (Docusate Sodium 100 Mg Capsule) 100 mg PO BID [facility] Last Admin: 05/21/23 08:27 Dose: 100 mg Erythromycin (Erythromycin Base 0.5% Oph Oin 1 Gm Tube) 1.27 cm EYE-BOTH QID [facility] Last Admin: 05/21/23 16:18 Dose: 1.27 cm Glucose (Glucose Gel 15 Gm Gel..Gram.) 15 gm PO Q15M PRN; Protocol PRN Reason: per Hypoglycemia Standing Ord. Guaifenesin (Guaifenesin 100 Mg/5 Ml Liquid) 5 ml PO Q4H PRN PRN Reason: Cough Last Admin: 05/20/23 21:58 Dose: 5 ml Guaifenesin (Guaifenesin La 600 Mg Tab.Er.12h) 600 mg PO BID [facility] Last Admin: 05/21/23 08:28 Dose: 600 mg Meropenem 1 gm/ Sodium (Chloride) 100 mls @ 200 mls/hr IV Q8H [facility] Last Admin: 05/21/23 16:18 Dose: 200 mls/hr Insulin Human Lispro (Insulin Lispro 100 Unit/Ml 3 Ml Vial) 0 unit SUBCUT QIDACHS [facility]; Protocol Last Admin: 05/21/23 12:56 Dose: 4 unit Lactulose (Lactulose 20 Gm/30 Ml Solution) 20 gm PO BID [facility] Last Admin: 05/21/23 08:29 Dose: 20 gm Latanoprost (Latanoprost 0.005 % Ophth Thalia 2.5 Ml Drops) 1 drop EYE-RIGHT BEDTIME [facility] Last Admin: 05/20/23 21:00 Dose: Not Given Melatonin (Melatonin 3 Mg Tablet) 6 mg PO BEDTIME PRN PRN Reason: Insomnia Last Admin: 05/20/23 22:07 Dose: 6 mg Methylprednisolone Sodium Succinate (Methylprednisolone Sod Succ 40 Mg/Ml Vial) 40 mg IVPUSH Q12H [facility] Last Admin: 05/21/23 08:29 Dose: 40 mg Omeprazole (Omeprazole 40 Mg Capsule.Dr) 40 mg PO DAILY@0630 [facility] Last Admin: 05/21/23 06:35 Dose: 40 mg Ondansetron HCl (Ondansetron Hcl 4 Mg/2 Ml Vial) 4 mg IVPUSH Q8H PRN PRN Reason: Nausea and Vomiting Pravastatin Sodium (Pravastatin Sodium 10 Mg Tablet) 10 mg PO DAILY [facility] Last Admin: 05/21/23 08:28 Dose: 10 mg Sacubitril/Valsartan (Sacubitril/Valsartan 1 Tab Tablet) 1 tab PO BID [facility]; Protocol Last Admin: 05/20/23 22:01 Dose: 1 tab Sodium Chloride (0.9 % Sodium Chloride Flush 3 Ml Syringe) 3 ml IVFLUSH QSHIFT [facility] Last Admin: 05/21/23 16:07 Dose: 3 ml Home Medications Medication Instructions Recorded Confirmed Last Taken Type albuterol sulfate 90 mcg/actuation 2 puff inhalation Q4H PRN wheezing 03/09/23 05/11/23 Unknown History aerosol inhaler (Ventolin HFA) finasteride 5 mg tablet 5 mg PO DAILY 03/09/23 05/11/23 03/08/23 History lovastatin 10 mg tablet 10 mg PO DAILY 03/09/23 05/11/23 03/08/23 History omeprazole 40 mg capsule,delayed 40 mg PO DAILY 03/09/23 05/11/23 03/08/23 History release sacubitril 24 mg-valsartan 26 mg 1 tab PO BID 03/09/23 05/11/23 03/08/23 History tablet (Entresto) travoprost 0.004 % eye drops 1 drp ophthalmic-Right BEDTIME 03/09/23 05/11/23 03/07/23 History bumetanide 1 mg tablet 1 mg PO DAILY 05/11/23 05/11/23 Unknown History Physical Exam 2 Vital Signs: Vital Signs: Last Vital Signs Temp 97.7 F 05/21/23 12:04 Pulse 70 05/21/23 12:04 Resp 20 05/21/23 12:04 BP 104/58 L 05/21/23 12:04 Pulse Ox 96 05/21/23 12:04 O2 Del Method Oxymask 05/21/23 12:04 O2 Flow Rate 4 05/21/23 12:04 FiO2 35 05/18/23 20:00 Oxygen Flow Rate 7 05/13/23 09:15 BMI result Body Mass Index 22.1 Results Labs 05/21/23 06:10 05/21/23 06:10 Labs: Abnormal lab results 05/20/23 05/20/23 05/21/23 Range/Units 20:40 21:56 06:10 WBC 13.5 H (4.8-10.8) X10*3/uL RBC 3.45 L (4.60-5.80) X10*6/uL Hgb 8.5 L (14.0-18.0) g/dl Hct 27.5 L (42.0-52.0) % MCV 79.7 L (80.0-98.0) fL MCH 24.6 L (27.0-33.0) pg MCHC 30.9 L (31.0-36.0) g/dl RDW 21.0 H (11.0-16.0) % Plt Count 417 H (160-400) X10*3/uL Carbon Dioxide 36 H (22-29) mmol/L Anion Gap 11 L (12-20) BUN 30 H (9-16) mg/dL POC Glucose 210 H 163 H (60-115) mg/dL Random Glucose 232 H (60-115) mg/dL 05/21/23 05/21/23 05/21/23 Range/Units 07:39 12:14 15:49 WBC (4.8-10.8) X10*3/uL RBC (4.60-5.80) X10*6/uL Hgb (14.0-18.0) g/dl Hct (42.0-52.0) % MCV (80.0-98.0) fL MCH (27.0-33.0) pg MCHC (31.0-36.0) g/dl RDW (11.0-16.0) % Plt Count (160-400) X10*3/uL Carbon Dioxide (22-29) mmol/L Anion Gap (12-20) BUN (9-16) mg/dL POC Glucose 240 H 218 H 218 H (60-115) mg/dL Random Glucose (60-115) mg/dL Short CBC 05/21/23 Range/Units 06:10 WBC 13.5 H (4.8-10.8) X10*3/uL Hgb 8.5 L (14.0-18.0) g/dl Hct 27.5 L (42.0-52.0) % Plt Count 417 H (160-400) X10*3/uL BMP 05/21/23 06:10 Sodium 141 Potassium 4.5 Chloride 99 Carbon Dioxide 36 H BUN 30 H Creatinine 0.67 Calcium 8.6 Urine 05/11/23 05/17/23 Range/Units 19:22 01:35 Urine Color Yellow Dark Yellow Urine Appearance Cloudy Cloudy Urine pH 5.5 7.5 (5.0-9.0) Ur Specific [place] 1.025 1.020 (1.005-1.025) Urine Protein 30 (1+) H 30 (1+) H (Neg-Trace) mg/dL Urine Glucose (UA) Negative Negative (Negative) mg/dL Collected: 05/11/23-UNK Status: COMP Req#: [id number] Received: 05/11/23 Source: [facility] Sp Desc: Urine swnason Subm Dr: Lima Bellamy MD Ordered: Urine Culture Procedure Result Verified Urine Culture Final 05/13/23 Organism 1 Escherichia coli Quant > 100,000 cfu/mL ESBL Note: NOTE: Extended-Spectrum Beta-Lactamase enzyme present E coli M.I.C. RX --------- --- Ampicillin >=32 R Ceftriaxone >=64 R Ertapenem <=0.12 S Gentamicin <=1 S Levofloxacin >=8 R Nitrofurantoin <=16 S Trimethoprim/Sulfamethoxazole >=[address] scan report/results: report reviewed and image reviewed CT scan - pelvis: report reviewed and image reviewed Additional studies: Date of Service: 05/20/23 EXAMINATION: CT ABDOMEN AND PELVIS WITHOUT CONTRAST CLINICAL INFORMATION: Flank pain. COMPARISON: None available. FINDINGS: LUNG BASES: There is diffuse bilateral lower lobe and lingular airspace opacities. In addition there is mild bronchiectasis and cystic changes in both lower lobes. LIVER, GALLBLADDER, AND BILIARY TREE: The liver is normal in size, shape, and attenuation. No focal hepatic lesion or biliary ductal dilatation is present. The gallbladder is unremarkable with no evidence of radiopaque gallstones, gallbladder wall thickening, or obvious pericholecystic inflammatory changes. PANCREAS: Unremarkable. SPLEEN: Unremarkable. ADRENAL GLANDS: Unremarkable. 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 There is a nonobstructive 8 mm calculi lower pole calyx left kidney without caliectasis or hydronephrosis. A 5 mm radiopaque calculi seen in midpole left kidney.. BLADDER: Unremarkable. GASTROINTESTINAL TRACT: There is scattered moderate stool, diverticuli and gas in throughout the colon without distention or diverticulitis. The small bowel loops are normal caliber. Appendix is not visualized. There is no free air or free fluid. ABDOMINAL WALL: No significant hernia is appreciated. LYMPH NODES: Normal. VASCULAR: Unremarkable. PELVIC VISCERA: The prostate gland is mildly enlarged. There is mild soft tissue thickening in left inguinal canal. Question previous surgical changes changes with a large scar. OSSEOUS STRUCTURES: There is mild degenerative disc changes L1-L2 and T11-T12 disc levels with vacuum disc phenomena. No aggressive lytic or sclerotic process seen. IMPRESSION: 1. Bilateral lower lobe and lingular infiltrates. 2. 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 with nonobstructive radiopaque calculi in the lower pole and midpole left kidney. No caliectasis or hydronephrosis. 3. Mild constipation. Colonic diverticulosis without diverticulitis. 4. Mild prostate enlargement. 5. Degenerative disc changes L1-L2 and T11-T12 disc levels. Assessment and Plan (1) UTI due to extended-spectrum beta lactamase (ESBL) producing Escherichia coli: Status: Acute (2) 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: Status: Acute (3) BPH loc w urin obs/LUTS: Status: Acute (4) Kidney stone on left side: Status: Acute Plan Antibiotic therapy as per Infectious Disease. Left kidney stones chronic no hydronephrosis. No acute intervention recommended by at this time. Outpatient follow-up. Procedures Date of Service Date of Service: 05/21/23
[2023-05-21 20:35] LABS: Glucose, Whole Blood 133 mg/dL (60-115)
[2023-05-21] MEDS: guaiFENesin 100 MG/5 ML LIQUID PO (23:16)
[2023-05-21] MEDS: Melatonin 3 MG TABLET 6 MG PO (23:17)
[2023-05-21] MEDS: carvediloL 6.25 MG TABLET PO (23:18)
[2023-05-21] MEDS: Latanoprost 0.005 % Ophth Sol 2.5 ML DROPS 1 DROP EYE-RIGHT (23:25)
[2023-05-22] VITALS (15 sets, daily range): BP systolic 80–117; BP diastolic 42–63; PULSE 67–88; RESP 18–22; TEMP 36.3–37.2; O2SAT 92–100
[2023-05-22] MEDS: 0.9 % Sodium Chloride Flush 3 ML SYRINGE IVFLUSH ×4 (00:35→22:14)
[2023-05-22] MEDS: Albuterol/Iprat 2.5/0.5MG 3 ML AMPUL.NEB INHALE ×6 (05:19→23:34)
[2023-05-22] MEDS: Omeprazole 40 MG CAPSULE.DR PO (06:19)
[2023-05-22 07:13] LABS: Glucose, Whole Blood 186 mg/dL (60-115)
[2023-05-22] MEDS: Heparin Sodium,Porcine Flush 50 UNITS, 0.9 % Sodium Chloride Flush 5 ML IVFLUSH ×3 (08:55→22:05)
[2023-05-22] MEDS: methylPREDNISolone Sod Succ 40 MG/ML VIAL IVPUSH ×2 (08:56→22:06)
[2023-05-22] MEDS: Lactulose 20 GM/30 ML SOLUTION PO ×2 (08:56→22:05)
[2023-05-22] MEDS: guaiFENesin LA 600 MG TAB.ER.12H PO ×2 (08:57→22:05)
[2023-05-22] MEDS: carvediloL 6.25 MG TABLET PO ×2 (08:57→22:05)
[2023-05-22] MEDS: Docusate Sodium 100 MG CAPSULE PO ×2 (08:57→22:05)
[2023-05-22] MEDS: Apixaban 5 MG TABLET PO ×2 (08:57→22:05)
[2023-05-22] MEDS: Insulin Lispro 100 UNIT/ML 3 ML VIAL SUBCUT ×4 (08:57→22:06)
[2023-05-22] MEDS: Pravastatin Sodium 10 MG TABLET PO (08:58)
[2023-05-22] MEDS: Bumetanide 1 MG TABLET PO (08:58)
--- NOTE | 2023-05-22 09:49 | MHC.CM.PN ---
SALTY PT WILL BE MEDICALLY CLEARED FOR DC TO PULMONARY REHAB AT [facility] FOR BLS TRANSPORT
--- NOTE | 2023-05-22 11:08 | P.DS_ITS ---
DS: Providers Provider Date of admission: 05/12/23 01:03 Primary care physician: Olga Calzada MD Consults: 05/11/23 09:15 Consult to Infectious Diseases Routine Consulting Provider: Edwina Chou Reason for consultation: Hx of ESBL pneumonia, recently on meropenem and DS Bactrim 05/11/23 14:33 Consult to Pulmonology Routine Consulting Provider: [facility] Pulmonology Services Reason for consultation: End stage COPD, multiple pulmonary admissions this year, not improving 05/13/23 04:51 Consult for Sitter Routine Reason for consultation: SI 05/14/23 07:33 Consult to Cardiology Routine Consulting Provider: [facility] Cardiovascular Services Reason for consultation: heart failure 05/17/23 00:23 Consult to Infectious Diseases Routine Consulting Provider: EDWINA CHOU Reason for consultation: UC E.coli, multiresistent, lungs infiltrates getting worse, Has provider been notified: No 05/21/23 12:00 Consult to Urology Routine Consulting Provider: Vinny Zuluaga Reason for consultation: recurrent ESBL UTI, non-obstructing stone DS: Diagnosis Discharge Diagnosis (1) UTI due to extended-spectrum beta lactamase (ESBL) producing Escherichia coli: Status: Acute (2) BPH loc w urin obs/LUTS: Status: Acute (3) Kidney stone on left side: Status: Acute (4) Bacteremia due to Escherichia coli: Status: Acute (5) Aspiration pneumonia: Status: Acute (6) Swallowing problem: Status: Acute (7) Acute and chronic respiratory failure with hypoxia: Status: Acute (8) Influenza A: Status: Acute DS: Summary Hospital Course Hospital Course: Admission note HPI Pt is a 82-year-old male with a PMH significant for?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 Patient has a complex PMH that has included multiple recent admissions/presentations to the hospital for respiratory concerns, including 03/08-03/10/2023 when he was treated for COPD exacerbation, 03/18-03/22/2023 when he was treated COVID infection, 03/30-03/31/2023 when he was treated pneumonia, 04/27-05/02 at [facility] where he was treated with meropenem for ESBL pneumonia, and then seen in [facility] ED on 05/06/2023 where he tested positive for influenza A. Patient was prescribed Tamiflu, however does unclear how many doses he has taken. Patient says he has seen no improvement since going home, complains that he overall ?feels terrible?. Reports he lives alone with little to no help for administration of medications or assisting with ADLs. Unclear how compliant patient is with his home medications or inhalers. Patient also complains of pain and inability to see in his left eye. Contacted [facility] who revealed patient has had 2 recent cataract surgeries in his left eye, both of which have been complicated and have been unsuccessful and replacing his lens. Patient was scheduled for follow-up appointment at ophthalmology office today. Patient denies chest pain/pressure, palpitations. No fever, chills, nausea, vomiting, abdominal pain. Denies orthopnea. No lower leg edema. Of note, during patient's stay at [facility] sputum cultures grew E coli and stenotrophomanoas maltophilia. Completed 7-day IV meropenem course on 05/04/2023 and Bactrim double strength on 05/10/2023. Was discharged with Afflo Vest percussion vest which pt reports he has been wearing at home. In the ED pt was tachypneic up to 30 with soft BP as low as 84/45, and desatting into the 70s on RA.. Labs were significant for leukocytosis of 16.9, H&H 9.1/29 .6, recent glucose 280, and albumin 2.8. Patient continued testing positive for influenza type A. CXR showed redemonstration of multifocal airspace opacities bilaterally with cystic formation of the right upper lung field on a background of chronic emphysematous changes. EKG demonstrated normal sinus rhythm with RBBB and no significant ST elevations or depressions, similar to previous. Pt was tr eated with cefepime, albuterol, and Solu-Medrol. Pt will be admitted to the hospital for treatment and further evaluation of acute on chronic hypoxic respiratory failure in the setting of recurrent pneumonia and COPD exacerbation in a patient with hx of ESBL pneumonia. Hospital course # ESBL E.Coli Bacteremia Source is urine. On IV Meropenem since (05/16), ID following and recommended 2 weeks of IV Meropenem. PICC in place and needs Heparin flushes. CT scan of abd\pel showing 2 non-obstructing kidney stones so Urology was consult for possible removal of the stones as it could be source of recurrent infection but dr Hartman will follow him as outpatient. # Acute hypoxic respiratory failure due to pulmomonary edema and aspiration The patient had Flu and started on Tamiflu. CXR showed worsening pneumonia before CXR started to improved as he was noticed to be aspirating. PLANNING INTERN evaluated him and recommended a Pureed diet with nectar thick fluids. He was treated with IV Bumex that was later changed to his PO dose. Had Incentive spirometry , lung physiotherapy He was also treated with IV steroids for COPD exacerbation and chemical pneumonitis. To be discharged on taper dose. we were able to wean down O2 to 2L O2. # Hx Depression CARE team followed, denies any intent to harm himself # Influenza infection Finished Tamiflu # Left eye pain/reduced vision/white substance Contact [facility] who report pt had two recent complicated, unsuccessful cataract surgeries. Has so far failed at replacing patient's left eye lens. White substance in eye is a Kenalog injection to reduce edema. Per ophthalmology recommendations, can use erythromycin ointment and systolic analgesics for pain management. Patient should follow-up outpatient with Ophthalmology # Physical deconditioning PT recommended SNF # Hypotension Blood pressure runs on the lower end and might dip down after his home meds. Entereston held. Carvedilol given with caution. Bumex can be decreased now to 0.5 mg every two days and increased as tolerated afterward. Decrease Bumex to 0.5 mg every 2 days and increase back to normal as tolerated Continue Meropenem as prescribed Tapering dose Prednisone Monitor blood pressure before restarting Enteresto Follow With PCP as outpatient in 1-2 weeks The patient will likely need less than 30 days at SNF Physical Exam Vital Signs: Vital Signs: Last Vital Signs Temp 98.5 F 05/22/23 07:27 Pulse 69 05/22/23 10:26 Resp 22 H 05/22/23 08:25 BP 103/56 L 05/22/23 07:27 Pulse Ox 99 05/22/23 07:27 O2 Del Method Nasal Cannula 05/22/23 07:27 O2 Flow Rate 5 05/22/23 07:27 FiO2 35 05/18/23 20:00 Oxygen Flow Rate 7 05/13/23 09:15 BMI result Body Mass Index 22.1 Const: Other: Constitutional : Awake, interactive, frail looking, not in distress Neck : Normal inspection, Supple Cardiovascular : RRR, no JVP, no lower extremity edema Respiratory : fair bilateral air entry, no significant crackles, wheezes or rhonchi, on O2 supplement 2L [place] Gastrointestinal: soft, lax, Normal bowel sounds, Non tender Skin : Warm, Dry Neurological : Alert & oriented x3, No focal deficit DS: Data Data Completed and Pending Completed studies during hospitalization [Text1]: Procedures Insertion of Infusion Device into Left Brachial Vein, Percutaneous Approach (05/25/22) Insertion of Infusion Device into Right Cephalic Vein, Percutaneous Approach (12/07/21) Insertion of Infusion Device into Superior Vena Cava, Percutaneous Approach (12/07/21) Introduction of Remdesivir Anti-infective into Peripheral Vein, Percutaneous Approach, [employer] 5 (03/18/23) Ultrasonography of Superior Vena Cava, Guidance (12/07/21) Labs on day of discharge: Laboratory Results - last 24 hr 05/21/23 05/21/23 05/21/23 12:14 15:49 20:31 POC Glucose 218 H 218 H 133 H 05/22/23 07:09 POC Glucose 186 H Imaging Chest x-ray: Radiologist's impression: ITS Impressions Chest X-Ray 05/11/23 09:31 IMPRESSION: Redemonstration of multifocal airspace opacities bilaterally with cystic formation of the right upper lung field on a background of chronic emphysematous changes. Chest X-Ray 05/13/23 08:23 IMPRESSION: Emphysematous changes with chronic interstitial prominence and irregular diffuse bilateral airspace opacities, slightly increased in prominence when compared to the prior examination. Chest X-Ray 05/15/23 10:56 IMPRESSION: 1. Diffuse interstitial and airspace disease with bronchiectasis. 2. New left lower lobe infiltrate. 3. No convincing evidence of CHF, although assessment is difficult given the background disease. Chest X-Ray 05/16/23 18:35 IMPRESSION: Slightly increased consolidative airspace opacities in the right lung base and lateral left lower lobe. Otherwise, grossly similar appearance of multifocal patchy and consolidative airspace opacities within a background of advanced bronchiectasis and cystic lung disease. Chest X-Ray 05/17/23 08:08 IMPRESSION: Increased consolidative airspace opacities projecting over the right midlung and right lung base. Otherwise grossly similar appearance of multifocal patchy and consolidated airspace opacities with a background of advanced bronchiectasis and cystic lung disease. Abdomen/Pelvis CT 05/20/23 14:18 IMPRESSION: 1. Bilateral lower lobe and lingular infiltrates. 2. 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 with nonobstructive radiopaque calculi in the lower pole and midpole left kidney. No caliectasis or hydronephrosis. 3. Mild constipation. Colonic diverticulosis without diverticulitis. 4. Mild prostate enlargement. 5. Degenerative disc changes L1-L2 and T11-T12 disc levels. Fleischner guidelines were followed. Chest X-Ray 05/21/23 08:14 IMPRESSION: There are radiographic findings of bronchitis, bronchiolitis and multilobar pneumonia. Pulmonary disease is slightly improved compared to 05/17/2023. Discharge Plan Discharge Anticipated Discharge Date/Time: 05/22/23 10:57 Patient Disposition: Xfer SNF Discharge Diagnosis: ESBL E.Coli bacteremia Hypoxia from aspiration pneumonia swallowing problem [facility] [Outside] - 1 Day (SHORT TERM REHAB) Olga North MD [Primary Care Provider] - 1 Week Discharge Medications: New meropenem 1 gram Recon Soln 1 g IV Q8H 8 Days Qty: 24 0RF heparin, porcine (PF) [Heparin LockFlush(Porcine)(PF)] 10 unit/mL Syringe 50 unit IVFLUSH TID 8 Days Qty: 120 0RF guaifenesin [Mucinex] 600 mg Tablet Extended Release 12hr 600 mg PO BID Qty: 20 0RF prednisone 10 mg tablet See Taper PO DIRECTED Qty: 30 0RF Taper: Prednisone 40 mg daily for 3 Days and 0 Hour 30 mg daily for 3 Days and 0 Hour 20 mg daily for 3 Days and 0 Hour 10 mg daily for 3 Days and 0 Hour Rx Instructions: see taper instructions Continued (DME) walker Misc See Rx Instructions .Route Qty: 1 0RF Patient Comments: Pt states doesnot use Rx Instructions: with seat and wheels (DME) blood-glucose meter [FreeStyle Lite Meter] Kit See Rx Instructions .Route Qty: 1 0RF Rx Instructions: test once daily Anoro Ellipta 62.5-25 mcg/actuation blister with device 1 ea PO DAILY Qty: 60 6RF docusate sodium 100 mg capsule 100 mg PO BID 90 Days Qty: 180 1RF tamsulosin 0.4 mg capsule 0.4 mg PO DAILY 30 Days Qty: 30 2RF ipratropium-albuterol 0.5 mg-3 mg(2.5 mg base)/3 mL solution for nebulization 3 ml inhalation QID PRN (Reason: for dyspnea) Qty: 180 0RF carvedilol 6.25 mg tablet 6.25 mg PO BID Qty: 60 5RF Eliquis 5 mg tablet 5 mg PO BID 90 Days Qty: 180 0RF metformin 500 mg tablet extended release 24 hr 500 mg PO DAILY 30 Days Qty: 30 5RF erythromycin 5 mg/gram (0.5 %) ointment 0.5 inch ophthalmic (eye) QID Qty: 50 0RF finasteride 5 mg tablet 5 mg PO DAILY lovastatin 10 mg tablet 10 mg PO DAILY omeprazole 40 mg capsule,delayed release(DR/EC) 40 mg PO DAILY travoprost 0.004 % drops 1 drp ophthalmic-Right BEDTIME albuterol sulfate [Ventolin HFA] 90 mcg/actuation HFA aerosol inhaler 2 puff INHALATION Q4H PRN (Reason: wheezing) (DME) FreeStyle Lite Strips Strip See Rx Instructions .Route Qty: 100 5RF Rx Instructions: test once daily (DME) lancets [FreeStyle Lancets] 28 gauge misc See Rx Instructions .Route Qty: 100 6RF Rx Instructions: Use 1 lancet once a day Changed bumetanide 1 mg Tablet 0.5 mg PO Q48H Qty: 30 0RF Held Entresto 24-26 mg tablet 1 tab PO BID Hold Instructions: Monitor blood pressure for next 3 days and restart if stable. Discontinued oseltamivir [Tamiflu] 75 mg capsule 75 mg PO BID 5 Days Qty: 10 0RF Rx Instructions: RX FILLED 05/09/23 FOR 5 DAY SUPPLY Discharge Orders: Discharge Order (Routine); Ordered 05/22/23 Ordered By: Nichelle Hull Diet: Pureed with nectar thick Activity on Discharge: As tolerated Stand Alone Forms: Patient Portal Discharge page Care Plan Goals: Read below Health Concerns: Read below Plan of Treatment: Read below Assessment: You were treated for Flu A and aspiration pneumonia requiring O2 supplement. responded well to IV Antibiotics, Lasix and steroids. You were also evaluated by speech therapist for swallowing problem who recommended a special diet. Developed urine infection with resistant bacteria and treated with IV antibiotics. Decrease Bumex to 0.5 mg every 2 days and increase back to normal as tolerated Continue Meropenem as prescribed Tapering dose Prednisone Monitor blood pressure before restarting Enteresto Follow With PCP as outpatient in 1-2 weeks
[2023-05-22 11:44] LABS: Glucose, Whole Blood 157 mg/dL (60-115)
[2023-05-22] MEDS: Erythromycin Base 0.5% Oph Oin 1 GM TUBE 1.27 CM EYE-BOTH (11:55)
--- NOTE | 2023-05-22 12:16 | P.CDIM_ITS ---
PROVIDER RESPONSE TEXT: To clarify, the appropriate diagnosis supported by the clinical indicators: Acute QUERY TEXT: PHYSICIAN'S DOCUMENTATION REQUEST Date of Query: 05/22/2023 08:42 AM EDT Patient Name: Yao Herman Admit Date: 05/12/2023 Dear Nichelle Hull, A review of the medical record indicates additional documentation may be needed. Please review below and update the documentation accordingly. Clinical Indicators: Progress notes: Plan - Lactic acidosis Lactic acidosis due to nebulizers not sepsis. LA 2.6 H Clarify which of the following accurately represents the acuity of the lactic acidosis: Possible options might include: Acute Acute on chronic Other (explain) Clinically unable to determine (explain) Thank you, Libra Arriaga, CCS, CDIS Use of terms such as suspected, likely, concern for, or probable (associated with a specific diagnosi s that is being evaluated, monitored, or treated as if it exists) are acceptable and can be coded in the inpatient se tting, when documented at the time of discharge. Please use your independent medical judgment in providing your response. THIS QUERY IS PART OF THE PERMANENT MEDICAL RECORD
--- NOTE | 2023-05-22 12:16 | P.CDIM_ITS ---
PROVIDER RESPONSE TEXT: To clarify, the appropriate diagnosis supported by the clinical indicators: Diabetes mellitus type 2 with hyperglycemia: confirmed QUERY TEXT: PHYSICIAN'S DOCUMENTATION REQUEST Date of Query: 05/22/2023 08:39 AM EDT Patient Name: Yao Herman Admit Date: 05/12/2023 Dear Nichelle Hull, A review of the medical record indicates additional documentation may be needed. Please review below and update the documentation accordingly. Clinical Indicators: LABS: POC glucose 3 - 370 H metformin, SSI Diabetic diet Please clarify the following regarding the labs: Diabetes mellitus type 2 with hyperglycemia resolved, possible, probable etc. Other Other (explain) Clinically unable to determine (explain) Thank you, Libra Arriaga, CCS, CDIS Use of terms such as suspected, likely, concern for, or probable (associated with a specific diagnosi s that is being evaluated, monitored, or treated as if it exists) are acceptable and can be coded in the inpatient se tting, when documented at the time of discharge. Please use your independent medical judgment in providing your response. THIS QUERY IS PART OF THE PERMANENT MEDICAL RECORD
[2023-05-22] MEDS: 0.9 % Sodium Chloride 500 ML IV (12:23)
[2023-05-22] MEDS: Albumin Human 25 % 100 ML IV (12:24)
--- NOTE | 2023-05-22 13:14 | HO.PM.IMPN ---
Subjective Subjective Date of Service: 05/22/23 Interval History: Seen and evaluated this morning Stable overnight and weaned down to 5L mask tolerating modified diet denies any fever or chills Review of Systems Review of Systems: Yes all other systems are reviewed and are negative Physical Exam Vital Signs: Vital Signs: Last Vital Signs Temp 97.5 F 05/22/23 11:58 Pulse 72 05/22/23 11:58 Resp 22 H 05/22/23 11:58 BP 80/42 L 05/22/23 11:58 Pulse Ox 97 05/22/23 11:58 O2 Del Method Nasal Cannula 05/22/23 11:58 O2 Flow Rate 2.5 05/22/23 11:58 FiO2 35 05/18/23 20:00 Oxygen Flow Rate 7 05/13/23 09:15 BMI result Body Mass Index 22.1 Const: Other: Constitutional : Awake, interactive, frail looking, not in distress Neck : Normal inspection, Supple Cardiovascular : RRR, no JVP, no lower extremity edema Respiratory : fair bilateral air entry, no significant crackles, wheezes or rhonchi, on O2 supplement 2-3L NC Gastrointestinal: soft, lax, Normal bowel sounds, Non tender Skin : Warm, Dry Neurological : Alert & oriented x3, No focal deficit Objective Data Active Medications Acetaminophen (Acetaminophen 325 Mg Tablet) 650 mg PO Q6H PRN PRN Reason: Pain, Mild (Pain Scale 1-3) Last Admin: 05/16/23 05:09 Dose: 650 mg Documented By: JADIEL Albuterol/Ipratropium (Albuterol/Iprat 2.5/0.5mg 3 Ml Ampul.Neb) 3 ml INHALE RQ4H [facility] Last Admin: 05/22/23 11:46 Dose: 3 ml Documented By: SHAHID Apixaban (Apixaban 5 Mg Tablet) 5 mg PO BID [facility] Last Admin: 05/22/23 08:57 Dose: 5 mg Documented By: FARZANA Benzocaine (Throat Lozenge, Medicated Lozenge) 1 lozenge MUCOUS MEM Q2H PRN PRN Reason: Sore Throat Last Admin: 05/19/23 13:28 Dose: 1 lozenge Documented By: SCAR Bumetanide (Bumetanide 1 Mg Tablet) 1 mg PO DAILY [facility]; Protocol Last Admin: 05/22/23 08:58 Dose: 1 mg Documented By: FARZANA Carvedilol (Carvedilol 6.25 Mg Tablet) 6.25 mg PO BID [facility]; Protocol Last Admin: 05/22/23 08:57 Dose: 6.25 mg Documented By: FARZANA Heparin Sodium (Porcine) 50 (units/ Sodium Chloride 5 ml) 0 units IVFLUSH TID [facility] Last Admin: 05/22/23 08:55 Dose: 50 unit Documented By: FARZANA Dextrose (Dextrose 50 % 25 Gm/50 Ml Syringe) 25 gm IVPUSH Q15M PRN; Protocol PRN Reason: per Hypoglycemia Standing Ord. Docusate Sodium (Docusate Sodium 100 Mg Capsule) 100 mg PO BID [facility] Last Admin: 05/22/23 08:57 Dose: 100 mg Documented By: FARZANA Erythromycin (Erythromycin Base 0.5% Oph Oin 1 Gm Tube) 1.27 cm EYE-BOTH QID [facility] Last Admin: 05/22/23 11:55 Dose: 1.27 cm Documented By: FARZANA Glucose (Glucose Gel 15 Gm Gel..Gram.) 15 gm PO Q15M PRN; Protocol PRN Reason: per Hypoglycemia Standing Ord. Guaifenesin (Guaifenesin 100 Mg/5 Ml Liquid) 5 ml PO Q4H PRN PRN Reason: Cough Last Admin: 05/21/23 23:16 Dose: 5 ml Documented By: TATIANA Guaifenesin (Guaifenesin La 600 Mg Tab.Er.12h) 600 mg PO BID [facility] Last Admin: 05/22/23 08:57 Dose: 600 mg Documented By: FARZANA Meropenem 1 gm/ Sodium (Chloride) 100 mls @ 200 mls/hr IV Q8H [facility] Last Infusion: 05/22/23 10:11 Dose: Infused Documented By: FARZANA Albumin Human (Kedbumin 25 %) 100 mls @ 100 mls/hr IV ONCE ONE Stop: 05/22/23 13:17 Last Admin: 05/22/23 12:24 Dose: 100 mls/hr Documented By: FARZANA Sodium Chloride (Ns) 500 mls @ 500 mls/hr IV .Q1H [facility] Stop: 05/22/23 13:29 Last Infusion: 05/22/23 12:33 Dose: 0 mls/hr Documented By: FARZANA Insulin Human Lispro (Insulin Lispro 100 Unit/Ml 3 Ml Vial) 0 unit SUBCUT QIDACHS [facility]; Protocol Last Admin: 05/22/23 11:56 Dose: 2 unit Documented By: FARZANA Lactulose (Lactulose 20 Gm/30 Ml Solution) 20 gm PO BID [facility] Last Admin: 05/22/23 08:56 Dose: 20 gm Documented By: FARZANA Latanoprost (Latanoprost 0.005 % Ophth Thalia 2.5 Ml Drops) 1 drop EYE-RIGHT BEDTIME [facility] Last Admin: 05/21/23 23:25 Dose: 1 drop Documented By: TATIANA Melatonin (Melatonin 3 Mg Tablet) 6 mg PO BEDTIME PRN PRN Reason: Insomnia Last Admin: 05/21/23 23:17 Dose: 6 mg Documented By: TATIANA Methylprednisolone Sodium Succinate (Methylprednisolone Sod Succ 40 Mg/Ml Vial) 40 mg IVPUSH Q12H [facility] Last Admin: 05/22/23 08:56 Dose: 40 mg Documented By: FARZANA Omeprazole (Omeprazole 40 Mg Capsule.Dr) 40 mg PO DAILY@0630 [facility] Last Admin: 05/22/23 06:19 Dose: 40 mg Documented By: JAYLON Ondansetron HCl (Ondansetron Hcl 4 Mg/2 Ml Vial) 4 mg IVPUSH Q8H PRN PRN Reason: Nausea and Vomiting Pravastatin Sodium (Pravastatin Sodium 10 Mg Tablet) 10 mg PO DAILY [facility] Last Admin: 05/22/23 08:58 Dose: 10 mg Documented By: FARZANA Sacubitril/Valsartan (Sacubitril/Valsartan 1 Tab Tablet) 1 tab PO BID [facility]; Protocol Last Admin: 05/20/23 22:01 Dose: 1 tab Documented By: TATIANA Sodium Chloride (0.9 % Sodium Chloride Flush 3 Ml Syringe) 3 ml IVFLUSH QSHIFT [facility] Last Admin: 05/22/23 08:57 Dose: 3 ml Documented By: FARZANA Labs 05/21/23 06:10 05/21/23 06:10 Labs: Laboratory Results - last 24 hr 05/21/23 05/21/23 05/22/23 15:49 20:31 07:09 POC Glucose 218 H 133 H 186 H 05/22/23 11:38 POC Glucose 157 H Microbiology Microbiology Results: Microbiology 05/16/23 23:11 Blood Culture - Final Blood - Venous No growth after 5 days. Assessment and Plan (1) Bacteremia due to Escherichia coli: Status: Acute (2) Aspiration pneumonia: Status: Acute (3) Swallowing problem: Status: Acute (4) UTI due to extended-spectrum beta lactamase (ESBL) producing Escherichia coli: Status: Acute (5) Acute and chronic respiratory failure with hypoxia: Status: Acute Plan Pt is a 82-year-old male with a PMH significant for?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, bronchiectases, ESBL pneumonia, JESSA, HFrEF, nonischemic cardiomyopathy, paroxysmal AFib on Eliquis, HTN, HLD, [id number] diabetes type 2, GERD, BPH, hx nephrolithiasis, and lumbar degenerative disc disease who presents to the ED with?SOB, WRIGHT, fatigue, and productive cough. Pt will be admitted to the hospital for treatment and further evaluation of acute on chronic hypoxic respiratory failure in the setting of recurrent pneumonia and COPD exacerbation in a patient with hx of ESBL pneumonia. Hypotension Likely overdiuresed hold Bumex Give a bolus and Albumin Decrease Bumex 0.5 mg every 2 days for now and increase as tolerated afterward monitor BP ESBL E.Coli Bacteremia Source is urine Started Meropenem (05/16) ID following CT scan of abd\pel showing 2 non-obstructing kidney stones Urology evaluated for possible removal of the stones, no inpatient intervention, can be follow OP PICC line in place Acute hypoxic respiratory failure d/t pulmomonary edema and aspiration CXR showed worsening infiltrates , now improving, was aspirating JANITORIAL SERVICES SUPERVISOR eval: Pureed diet DC IV Bumex, start PO Incentive spirometry , lung physiotherapy Continue Meropenem (05/16) IV steroids, wean down on DC wean down O2 as tolerated Lactic acidosis, resolved Lactic acidosis due to nebulizers not sepsis contraction alkalosis resolved COPD exacerbation bronchodilators by Neb, IV steroid. Depression CARE team following denies any intent to harm himself Influenza infection Tamiflu Left eye pain/reduced vision/white substance Contact [facility] who report pt had two recent complicated, unsuccessful cataract surgeries Has so far failed at replacing patient's left eye lens White substance in eye is a Kenalog injection to reduce edema Per ophthalmology recommendations, can use erythromycin ointment and systolic analgesics for pain management Patient should follow-up outpatient with Ophthalmology Nonischemic cardiomyopathy Continue carvedilol resume Entresto Paroxysmal AFib Continue Eliquis Kww-klxnjxh-[id number] diabetes type 2 resume metformin, SSI Diabetic diet Physical deconditioning PT rec SNF Full Code DVT Prophylaxis: On Eliquis need for inpt: copd exacergation with hypoxia Ongoing hospitalization for acute hypoxic resp failure, aspiration pneumonia, needing IV diuretics and antibitoics and close monitoring with SNF placement Quality Stroke Does the patient have a stroke diagnosis?: No VTE Prior VTE?: No VTE Risk Level:: Medical - moderate - high VTE Device Contraindication: Treatment Not Indicated VTE Drug Contraindication: N/A - Med Ordered
[2023-05-22 16:48] LABS: Glucose, Whole Blood 233 mg/dL (60-115)
[2023-05-22 20:23] LABS: Glucose, Whole Blood 152 mg/dL (60-115)
[2023-05-22] MEDS: Latanoprost 0.005 % Ophth Sol 2.5 ML DROPS 1 DROP EYE-RIGHT (22:14)
[2023-05-23 04:00] VITALS: BP 99/58; PULSE 76; RESP 18; TEMP 36.9; O2SAT 96
[2023-05-23] MEDS: Omeprazole 40 MG CAPSULE.DR PO (06:18)
[2023-05-23 07:07] LABS: Hematocrit 25.3 % (42.0-52.0); Hemoglobin 7.7 g/dl (14.0-18.0); Mean Corpuscular HGB Conc 30.4 g/dl (31.0-36.0); Mean Corpuscular Hemoglobin 24.4 pg (27.0-33.0); Mean Corpuscular Volume 80.1 fL (80.0-98.0); Mean Platelet Volume 10.5 fL (9.4-12.4); Platelet Count 432 X10*3/uL (160-400); Red Blood Count 3.16 X10*6/uL (4.60-5.80); White Blood Count 11.2 X10*3/uL (4.8-10.8)
[2023-05-23 07:08] LABS: Anion Gap 12 (12-20); Blood Urea Nitrogen 25 mg/dL (9-16); Calcium 8.4 mg/dL (8.4-10.2); Carbon Dioxide 32 mmol/L (22-29); Chloride 98 mmol/L (96-108); Estimated Glomerular Filt Rate > 60; Glucose Random 211 mg/dL (60-115); Potassium 4.5 mmol/L (3.3-5.1); Sodium 137 mmol/L (135-145)
[2023-05-23 07:35] VITALS: BP 112/61; PULSE 67; RESP 20; TEMP 37.6; O2SAT 96
[2023-05-23 07:42] LABS: Glucose, Whole Blood 162 mg/dL (60-115)
[2023-05-23] MEDS: Albuterol/Iprat 2.5/0.5MG 3 ML AMPUL.NEB INHALE ×2 (08:04→11:21)
[2023-05-23] MEDS: Erythromycin Base 0.5% Oph Oin 1 GM TUBE 1.27 CM EYE-BOTH ×2 (08:36→14:13)
[2023-05-23] MEDS: guaiFENesin LA 600 MG TAB.ER.12H PO (08:37)
[2023-05-23] MEDS: methylPREDNISolone Sod Succ 40 MG/ML VIAL IVPUSH (08:37)
[2023-05-23] MEDS: Pravastatin Sodium 10 MG TABLET PO (08:37)
[2023-05-23] MEDS: Apixaban 5 MG TABLET PO (08:37)
[2023-05-23] MEDS: carvediloL 6.25 MG TABLET PO (08:37)
[2023-05-23] MEDS: Insulin Lispro 100 UNIT/ML 3 ML VIAL SUBCUT (08:37)
--- NOTE | 2023-05-23 08:37 | MHC.CM.PN ---
EMR REVIEWED, PT MEDICALLY CLEARED FOR DC HOWEVER PER HOSPITALIST NEEDS PULMONARY REHAB, [facility]LLOWING HOWEVER HAVE NOT HAD A BED, CM HAS SENT BOTH FACILITIES A MESSAGE VIA [facility] THIS AM AND AWAITING RESPONSE, CM WILL CONT TO FOLLOW.
[2023-05-23] MEDS: Heparin Sodium,Porcine Flush 50 UNITS, 0.9 % Sodium Chloride Flush 5 ML IVFLUSH ×2 (08:38→14:13)
[2023-05-23] MEDS: 0.9 % Sodium Chloride Flush 3 ML SYRINGE IVFLUSH (08:38)
--- NOTE | 2023-05-23 09:20 | PC.NURSE ---
patient video monitoring discontinued yesterday at 12:45pm, patient behaving appropriately. call yin within reach, safety precaution in place.
--- NOTE | 2023-05-23 11:11 | PM.DS ---
DS: Providers Provider Date of Service: 05/23/23 Date of admission: 05/12/23 01:03 Primary care physician: Olga Calzada MD Consults: 05/11/23 09:15 Consult to Infectious Diseases Routine Consulting Provider: Edwina Chou Reason for consultation: Hx of ESBL pneumonia, recently on meropenem and DS Bactrim 05/11/23 14:33 Consult to Pulmonology Routine Consulting Provider: [facility] Reason for consultation: End stage COPD, multiple pulmonary admissions this year, not improving 05/13/23 04:51 Consult for Sitter Routine Reason for consultation: SI 05/14/23 07:33 Consult to Cardiology Routine Consulting Provider: [facility] Cardiovascular Services Reason for consultation: heart failure 05/17/23 00:23 Consult to Infectious Diseases Routine Consulting Provider: EDWINA CHOU Reason for consultation: UC E.coli, multiresistent, lungs infiltrates getting worse, Has provider been notified: No 05/21/23 12:00 Consult to Urology Routine Consulting Provider: Vinny Zuluaga Reason for consultation: recurrent ESBL UTI, non-obstructing stone DS: Diagnosis Discharge Diagnosis (1) Bacteremia due to Escherichia coli: Status: Acute (2) Aspiration pneumonia: Status: Acute (3) Swallowing problem: Status: Acute (4) UTI due to extended-spectrum beta lactamase (ESBL) producing Escherichia coli: Status: Acute (5) Acute and chronic respiratory failure with hypoxia: Status: Acute DS: Summary Hospital Course Hospital Course: Admission note HPI Pt is a 82-year-old male with a PMH significant for?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 Patient has a complex PMH that has included multiple recent admissions/presentations to the hospital for respiratory concerns, including 03/08-03/10/2023 when he was treated for COPD exacerbation, 03/18-03/22/2023 when he was treated COVID infection, 03/30-03/31/2023 when he was treated pneumonia, 04/27-05/02 at [facility] where he was treated with meropenem for ESBL pneumonia, and then seen in [facility] ED on 05/06/2023 where he tested positive for influenza A. Patient was prescribed Tamiflu, however does unclear how many doses he has taken. Patient says he has seen no improvement since going home, complains that he overall ?feels terrible?. Reports he lives alone with little to no help for administration of medications or assisting with ADLs. Unclear how compliant patient is with his home medications or inhalers. Patient also complains of pain and inability to see in his left eye. Contacted [facility] who revealed patient has had 2 recent cataract surgeries in his left eye, both of which have been complicated and have been unsuccessful and replacing his lens. Patient was scheduled for follow-up appointment at ophthalmology office today. Patient denies chest pain/pressure, palpitations. No fever, chills, nausea, vomiting, abdominal pain. Denies orthopnea. No lower leg edema. Of note, during patient's stay at [facility] sputum cultures grew E coli and stenotrophomanoas maltophilia. Completed 7-day IV meropenem course on 05/04/2023 and Bactrim double strength on 05/10/2023. Was discharged with Afflo Vest percussion vest which pt reports he has been wearing at home. In the ED pt was tachypneic up to 30 with soft BP as low as 84/45, and desatting into the 70s on RA.. Labs were significant for leukocytosis of 16.9, H&H 9.1/29.6, recent glucose 280, and albumin 2.8. Patient continued testing positive for influenza type A. CXR showed redemonstration of multifocal airspace opacities bilaterally with cystic formation of the right upper lung field on a background of chronic emphysematous changes. EKG demonstrated normal sinus rhythm with RBBB and no significant ST elevations or depressions, similar to previous. Pt was treated with cefepime, albuterol, and Solu-Medrol. Pt will be admitted to the hospital for treatment and further evaluation of acute on chronic hypoxic respiratory failure in the setting of recurrent pneumonia and COPD exacerbation in a patient with hx of ESBL pneumonia. Hospital course # ESBL E.Coli Bacteremia Source is urine. On IV Meropenem since (05/16), ID following and recommended 2 weeks of IV Meropenem. PICC in place and needs Heparin flushes. CT scan of abd\pel showing 2 non-obstructing kidney stones so Urology was consult for possible removal of the stones as it could be source of recurrent infection but dr Hartman will follow him as outpatient. # Acute hypoxic respiratory failure due to pulmomonary edema and aspiration The patient had Flu and started on Tamiflu. CXR showed worsening pneumonia before CXR started to improved as he was noticed to be aspirating. CLIENT DEVELOPMENT DIRECTOR evaluated him and recommended a Pureed diet with nectar thick fluids. He was treated with IV Bumex that was later changed to his PO dose. Had Incentive spirometry , lung physiotherapy He was also treated with IV steroids for COPD exacerbation and chemical pneumonitis. To be discharged on taper dose. we were able to wean down O2 to 2L O2. # Hx Depression CARE team followed, denies any intent to harm himself # Influenza infection Finished Tamiflu # Left eye pain/reduced vision/white substance Contact [facility] who report pt had two recent complicated, unsuccessful cataract surgeries. Has so far failed at replacing patient's left eye lens. White substance in eye is a Kenalog injection to reduce edema. Per ophthalmology recommendations, can use erythromycin ointment and systolic analgesics for pain management. Patient should follow-up outpatient with Ophthalmology # Physical deconditioning PT recommended SNF # Hypotension Blood pressure runs on the lower end and might dip down after his home meds. Entereston held. Carvedilol given with caution. Bumex can be decreased now to 0.5 mg every two days and increased as tolerated afterward. Decrease Bumex to 0.5 mg every 2 days and increase back to normal as tolerated Continue Meropenem as prescribed Tapering dose Prednisone Monitor blood pressure before restarting Enteresto Follow With PCP as outpatient in 1-2 weeks The patient will likely need less than 30 days at SNF Time Attestation Discharge Coordination Time (in mins): 35 Quality: Safe Use of Opioids Does Pt have an Active Cancer Diagnosis on the Problem List?: No Quality: Stroke Does the patient have a stroke diagnosis?: No Physical Exam Vital Signs: Vital Signs: Last Vital Signs Temp 99.7 F 05/23/23 07:35 Pulse 67 05/23/23 07:35 Resp 20 05/23/23 07:35 BP 112/61 05/23/23 07:35 Pulse Ox 96 05/23/23 07:35 O2 Del Method Nasal Cannula 05/23/23 07:35 O2 Flow Rate 3 05/23/23 07:35 FiO2 35 05/18/23 20:00 Oxygen Flow Rate 7 05/13/23 09:15 BMI result Body Mass Index 22.1 DS: Data Data Completed and Pending Completed studies during hospitalization [Text1]: Procedures Insertion of Infusion Device into Left Brachial Vein, Percutaneous Approach (05/25/22) Insertion of Infusion Device into Right Cephalic Vein, Percutaneous Approach (12/07/21) Insertion of Infusion Device into Superior Vena Cava, Percutaneous Approach (12/07/21) Introduction of Remdesivir Anti-infective into Peripheral Vein, Percutaneous Approach, [employer] (03/18/23) Ultrasonography of Superior Vena Cava, Guidance (12/07/21) Labs on day of discharge: Laboratory Results - last 24 hr 05/22/23 05/22/23 05/22/23 11:38 16:44 20:18 WBC RBC Hgb Hct MCV MCH MCHC RDW Plt Count MPV Absolute Nucleated RBC Nucleated RBC % (auto) Sodium Potassium Chloride Carbon Dioxide Anion Gap BUN Creatinine Estim Creat Clear Calc Estimated GFR POC Glucose 157 H 233 H 152 H Random Glucose Calcium 05/23/23 05/23/23 06:25 07:38 WBC 11.2 H RBC 3.16 L Hgb 7.7 L Hct 25.3 L MCV 80.1 MCH 24.4 L MCHC 30.4 L RDW 21.0 H Plt Count 432 H MPV 10.5 Absolute Nucleated RBC 0.000 Nucleated RBC % (auto) 0.0 Sodium 137 Potassium 4.5 Chloride 98 Carbon Dioxide 32 H Anion Gap 12 BUN 25 H Creatinine 0.67 Estim Creat Clear Calc 75.0 Estimated GFR > 60 POC Glucose 162 H Random Glucose 211 H Calcium 8.4 Discharge Plan Discharge Anticipated Discharge Date/Time: 05/22/23 10:57 Patient Disposition: Xfer SNF Discharge Diagnosis: ESBL E.Coli bacteremia Hypoxia from aspiration pneumonia swallowing problem Referrals: [facility] [Outside] - 1 Day (SHORT TERM REHAB) Olga North MD [Primary Care Provider] - 1 Week Discharge Medications: New meropenem 1 gram Recon Soln 1 g IV Q8H 8 Days Qty: 24 0RF heparin, porcine (PF) [Heparin LockFlush(Porcine)(PF)] 10 unit/mL Syringe 50 unit IVFLUSH TID 8 Days Qty: 120 0RF guaifenesin [Mucinex] 600 mg Tablet Extended Release 12hr 600 mg PO BID Qty: 20 0RF prednisone 10 mg tablet See Taper PO DIRECTED Qty: 30 0RF Taper: Prednisone 40 mg daily for 3 Days and 0 Hour 30 mg daily for 3 Days and 0 Hour 20 mg daily for 3 Days and 0 Hour 10 mg daily for 3 Days and 0 Hour Rx Instructions: see taper instructions Continued (DME) walker Misc See Rx Instructions .Route Qty: 1 0RF Patient Comments: Pt states doesnot use Rx Instructions: with seat and wheels (DME) blood-glucose meter [FreeStyle Lite Meter] Kit See Rx Instructions .Route Qty: 1 0RF Rx Instructions: test once daily Anoro Ellipta 62.5-25 mcg/actuation blister with device 1 ea PO DAILY Qty: 60 6RF docusate sodium 100 mg capsule 100 mg PO BID 90 Days Qty: 180 1RF tamsulosin 0.4 mg capsule 0.4 mg PO DAILY 30 Days Qty: 30 2RF ipratropium-albuterol 0.5 mg-3 mg(2.5 mg base)/3 mL solution for nebulization 3 ml inhalation QID PRN (Reason: for dyspnea) Qty: 180 0RF carvedilol 6.25 mg tablet 6.25 mg PO BID Qty: 60 5RF Eliquis 5 mg tablet 5 mg PO BID 90 Days Qty: 180 0RF metformin 500 mg tablet extended release 24 hr 500 mg PO DAILY 30 Days Qty: 30 5RF erythromycin 5 mg/gram (0.5 %) ointment 0.5 inch ophthalmic (eye) QID Qty: 50 0RF finasteride 5 mg tablet 5 mg PO DAILY lovastatin 10 mg tablet 10 mg PO DAILY omeprazole 40 mg capsule,delayed release(DR/EC) 40 mg PO DAILY travoprost 0.004 % drops 1 drp ophthalmic-Right BEDTIME albuterol sulfate [Ventolin HFA] 90 mcg/actuation HFA aerosol inhaler 2 puff INHALATION Q4H PRN (Reason: wheezing) (DME) FreeStyle Lite Strips Strip See Rx Instructions .Route Qty: 100 5RF Rx Instructions: test once daily (DME) lancets [FreeStyle Lancets] 28 gauge misc See Rx Instructions .Route Qty: 100 6RF Rx Instructions: Use 1 lancet once a day Changed bumetanide 1 mg Tablet 0.5 mg PO Q48H Qty: 30 0RF Held Entresto 24-26 mg tablet 1 tab PO BID Hold Instructions: Monitor blood pressure for next 3 days and restart if stable. Discontinued oseltamivir [Tamiflu] 75 mg capsule 75 mg PO BID 5 Days Qty: 10 0RF Rx Instructions: RX FILLED 05/09/23 FOR 5 DAY SUPPLY Discharge Orders: Discharge Order (Routine); Ordered 05/22/23 Ordered By: Nichelle Hull Diet: Pureed with nectar thick Activity on Discharge: As tolerated Stand Alone Forms: Patient Portal Discharge page Care Plan Goals: Read below Health Concerns: Read below Plan of Treatment: Read below Assessment: You were treated for Flu A and aspiration pneumonia requiring O2 supplement. responded well to IV Antibiotics, Lasix and steroids. You were also evaluated by speech therapist for swallowing problem who recommended a special diet. Developed urine infection with resistant bacteria and treated with IV antibiotics. Decrease Bumex to 0.5 mg every 2 days and increase back to normal as tolerated Continue Meropenem as prescribed Tapering dose Prednisone Monitor blood pressure before restarting Enteresto Follow With PCP as outpatient in 1-2 weeks
[2023-05-23 11:37] LABS: Glucose, Whole Blood 126 mg/dL (60-115)
--- NOTE | 2023-05-23 11:51 | MHC.CM.PN ---
IMM 05/23/23 DELIVERED TO BEDSIDE VIA RETURNER, PT MEDICALLY CLEARED TO DC TO [facility] FOR PULMONARY REHAB, PT'S SITER/HCP MILLER UPDATED AT NUMBER ON FILE AND [facility] FOR BLS TRANSPORT
[2023-05-23 12:00] VITALS: BP 96/52; PULSE 65; RESP 20; TEMP 37.3; O2SAT 95
== END 2023-05-23 15:08 | disposition skilled nursing facility (03) | DRG 193 ==
LOC: HO.ED 11:34 → HO.EDOVER 05-12 01:07 → HO.S3 05-12 13:13 → HO.IMC 05-13 09:46
PROVIDERS: Internal Medicine; Student in an Organized Health Care Education/Training Program; Admitting Provider Student in an Organized Health Care Education/Training Program; Emergency Provider Emergency Medicine Emergency Medical Services; PCP Internal Medicine; Visit Provider Internal Medicine
PROC: 05H933Z Insertion of Infusion Device into Right Brachial Vein, Percutaneous Approach (ICD-10-PCS; principal; 2023-05-21 08:00)
DX: J10.00 Influenza due to other identified influenza virus with unspecified type of pneumonia (principal); J96.21 Acute and chronic respiratory failure with hypoxia; I42.8 Other cardiomyopathies; J47.0 Bronchiectasis with acute lower respiratory infection; J47.1 Bronchiectasis with (acute) exacerbation; N39.0 Urinary tract infection, site not specified; E87.21 Acute metabolic acidosis; R45.851 Suicidal ideations; Z16.12 Extended spectrum beta lactamase (ESBL) resistance; I50.22 Chronic systolic (congestive) heart failure; N13.8 Other obstructive and reflux uropathy; R78.81 Bacteremia; J69.0 Pneumonitis due to inhalation of food and vomit; H57.12 Ocular pain, left eye; B96.20 Unspecified Escherichia coli [E. coli] as the cause of diseases classified elsewhere; N40.1 Benign prostatic hyperplasia with lower urinary tract symptoms; Q63.1 Lobulated, fused and horseshoe kidney; F32.A Depression, unspecified; E11.65 Type 2 diabetes mellitus with hyperglycemia; I48.0 Paroxysmal atrial fibrillation; Z20.822 Contact with and (suspected) exposure to COVID-19; Z99.81 Dependence on supplemental oxygen; Z87.01 Personal history of pneumonia (recurrent); Z88.0 Allergy status to penicillin; Z79.4 Long term (current) use of insulin; Z79.01 Long term (current) use of anticoagulants; Z79.84 Long term (current) use of oral hypoglycemic drugs; Z79.899 Other long term (current) drug therapy
CPT/HCPCS: 0241U; 36410; 36415; 36600; 71045; 71250; 74176; 74230; 80048; 80053; 80076; 81001; 82803; 82947; 83540; 83605; 83735; 83880; 84145; 84484; 85007; 85025; 85027; 85610; 87040; 87070; 87077; 87086; 87088; 87186; 87205; 87640; 87641; 92526; 92610; 92611; 92950; 93005; 93306; 94640; 94799; 97116; 97162; 99285; C1751; C1758; C1894; J0692; J1642; J1756; J1939; J1940; J2185; J2270; J2920; J2930; J3371; P9047; Q9957

== ENCOUNTER → 2023-05-11 09:11 | Outpatient (BNV) | payer MEDICARE, MEDICAID, SELFPAY | PROVIDERS: Emergency Provider Emergency Medicine Emergency Medical Services; PCP Internal Medicine; Visit Provider Internal Medicine | DX: R78.81 Bacteremia (principal); B96.20 Unspecified Escherichia coli [E. coli] as the cause of diseases classified elsewhere; J69.0 Pneumonitis due to inhalation of food and vomit; R13.10 Dysphagia, unspecified | CPT/HCPCS: 99222; 99232 ==

== ENCOUNTER → 2023-05-11 09:13 | Outpatient (BNV) | payer MEDICARE, MEDICAID, SELFPAY | PROVIDERS: Emergency Provider Emergency Medicine Emergency Medical Services; PCP Internal Medicine; Visit Provider Internal Medicine | DX: R94.31 Abnormal electrocardiogram [ECG] [EKG] (principal) | CPT/HCPCS: 93010 ==

== ENCOUNTER 2023-05-12 01:03 | Outpatient (BNV) | payer MEDICARE, MEDICAID, SELFPAY | END 2023-05-14 07:00 | PROVIDERS: Admitting Provider Student in an Organized Health Care Education/Training Program; Emergency Provider Emergency Medicine Emergency Medical Services; PCP Internal Medicine; Visit Provider Internal Medicine Cardiovascular Disease | DX: I50.22 Chronic systolic (congestive) heart failure (principal) | CPT/HCPCS: 93306 ==

== ENCOUNTER → 2023-05-12 01:03 | Outpatient (BNV) | payer MEDICARE, MEDICAID, SELFPAY | PROVIDERS: Admitting Provider Student in an Organized Health Care Education/Training Program; Emergency Provider Emergency Medicine Emergency Medical Services; PCP Internal Medicine; Visit Provider Internal Medicine Cardiovascular Disease | DX: J96.21 Acute and chronic respiratory failure with hypoxia (principal); J10.1 Influenza due to other identified influenza virus with other respiratory manifestations; I50.22 Chronic systolic (congestive) heart failure | CPT/HCPCS: 99223 ==

== ENCOUNTER → 2023-05-12 01:03 | Outpatient (BNV) | payer MEDICARE, MEDICAID, SELFPAY | PROVIDERS: Admitting Provider Student in an Organized Health Care Education/Training Program; Emergency Provider Emergency Medicine Emergency Medical Services; PCP Internal Medicine; Visit Provider Student in an Organized Health Care Education/Training Program | DX: J96.21 Acute and chronic respiratory failure with hypoxia (principal); J69.0 Pneumonitis due to inhalation of food and vomit; R78.81 Bacteremia; N39.0 Urinary tract infection, site not specified; B96.29 Other Escherichia coli [E. coli] as the cause of diseases classified elsewhere; Z16.12 Extended spectrum beta lactamase (ESBL) resistance; R13.10 Dysphagia, unspecified | CPT/HCPCS: 99223; 99232; 99233; 99239; 99499 ==

== ENCOUNTER → 2023-05-12 01:03 | Outpatient (BNV) | payer MEDICARE, MEDICAID, SELFPAY | PROVIDERS: Admitting Provider Student in an Organized Health Care Education/Training Program; Emergency Provider Emergency Medicine Emergency Medical Services; PCP Internal Medicine; Visit Provider Internal Medicine Pulmonary Disease | DX: J96.21 Acute and chronic respiratory failure with hypoxia (principal); J10.1 Influenza due to other identified influenza virus with other respiratory manifestations; J44.1 Chronic obstructive pulmonary disease with (acute) exacerbation; J47.9 Bronchiectasis, uncomplicated | CPT/HCPCS: 99222; 99232; 99233 ==

== ENCOUNTER → 2023-05-12 01:03 | Outpatient (BNV) | payer MEDICARE, MEDICAID, SELFPAY | PROVIDERS: Admitting Provider Student in an Organized Health Care Education/Training Program; Emergency Provider Emergency Medicine Emergency Medical Services; PCP Internal Medicine; Visit Provider Urology | DX: N39.0 Urinary tract infection, site not specified (principal); B96.29 Other Escherichia coli [E. coli] as the cause of diseases classified elsewhere; Z16.12 Extended spectrum beta lactamase (ESBL) resistance; Q63.1 Lobulated, fused and horseshoe kidney; N40.1 Benign prostatic hyperplasia with lower urinary tract symptoms; N20.0 Calculus of kidney | CPT/HCPCS: 99222 ==

== ENCOUNTER 2023-05-24 04:20 | Inpatient (IN) | payer MEDICARE, MEDICAID, SELFPAY ==
[2023-05-24] VITALS (14 sets, daily range): BP systolic 97–132; BP diastolic 54–75; PULSE 71–95; RESP 18–95; TEMP 37.1–37.9; O2SAT 90–98; BMI 19.9
--- NOTE | 2023-05-24 | ECG_ITS ---
Test Reason : SOB Blood Pressure : / mmHG Vent. Rate : 091 BPM Atrial Rate : 091 BPM P-R Int : 110 ms QRS Dur : 126 ms QT Int : 392 ms P-R-T Axes : 063 -41 035 degrees QTc Int : 482 ms Sinus rhythm with short KS with Premature supraventricular complexes Left axis deviation Right bundle branch block Abnormal ECG When compared with ECG of 11-MAY-2023 10:07, Premature supraventricular complexes are now Present Nonspecific T wave abnormality has replaced inverted T waves in Inferior leads Referred By: Osbaldo Rosales Electronically Signed By:ELISA BRIZUELA MD
--- NOTE | ~2023-05-24 | CT_ITS ---
EXAMINATION: CT CHEST WITHOUT CONTRAST CLINICAL INFORMATION: Pneumonia. COMPARISON: Chest CT 03/30/2023 TECHNIQUE: Multidetector volumetric CT imaging of the chest was done. Axial MIP volume rendering provided. Sagittal and coronal reformatted images were obtained. This CT examination was performed using dose optimization techniques as appropriate, variously including the following: *Automated exposure control *Adjustment of mA and/or kV according to patient size (this includes techniques or standardized protocols for targeted exams where dose is matched to indication/reason for exam; i.e. extremities or head) *Use of iterative reconstruction technique DLP: 226 mGy-cm FINDINGS: LUNGS: Emphysematous changes with bullous changes at the lung apices. There is rightward shift in the mediastinum with volume loss in the right hemithorax. There is architectural distortion of the pulmonary parenchyma with severe cystic bilateral bronchiectasis/bronchial wall thickening and peribronchial consolidation involving all 5 lobes. This consolidation/airspace disease has progressed since the prior examination. MEDIASTINUM: Enlarged mediastinal and bilateral hilar lymph nodes similar to prior. No axillary lymphadenopathy. Great vessels are unchanged in caliber. Heart size is stable. No pericardial effusion. CORONARY ARTERY CALCIFICATION: Moderate. PLEURA: Trace bilateral pleural effusions. UPPER ABDOMEN: Cholelithiasis. OSSEOUS STRUCTURES: No destructive bone lesions. CT/CT chest wo IV con IMPRESSION: Severe bilateral cystic bronchiectasis with bronchial wall thickening and peribronchial consolidation progressed since the prior study. Infectious and inflammatory conditions should be considered.
--- NOTE | ~2023-05-24 | FL_ITS ---
EXAMINATION: Modified Barium Swallow CLINICAL INFORMATION: Dysphagia. COMPARISON: None. TECHNIQUE: Modified barium swallow was performed under lateral fluoroscopy with patient in standing position. Barium mixed with solids and liquids of varying consistencies was administered by the speech pathologist. The exam was recorded in the fluoroscopy suite. FINDINGS: No laryngeal penetration or aspiration was seen during this examination. FLUOROSCOPY TIME: 1 minute 20 seconds Number of Spot Images: 1 image hold obtained. DOSE AREA PRODUCT: 668 uGy-m2 (microgray-meter squared) FL/FL barium swallow modified IMPRESSION: No laryngeal penetration or aspiration was seen during this examination. Refer to the full speech therapy report for further clarification This procedure was performed by Kirk Beckman PA-C, and supervised by Dr. Mcdaniel
--- NOTE | ~2023-05-24 | XR_ITS ---
EXAMINATION: XR CHEST CLINICAL INFORMATION: Worsening hypoxia COMPARISON: Chest x-ray and chest CT May 24, 2023 TECHNIQUE: Frontal view of the chest was obtained. FINDINGS: Cardiac silhouette is normal in size. Similar patchy airspace disease superimposed on emphysematous changes. There is no lobar consolidation. No pleural effusion or pneumothorax. XR/XR chest 1V IMPRESSION: Similar patchy airspace disease superimposed on emphysematous changes.
--- NOTE | ~2023-05-24 | XR_ITS ---
EXAMINATION: XR CHEST CLINICAL INFORMATION: Dyspnea. COMPARISON: 05/21/2023. TECHNIQUE: Frontal view of the chest was obtained. FINDINGS: The cardiomediastinal silhouette is stable. Emphysematous change with bilateral patchy consolidation similar to previous. Right upper lung field bullous changes are noted. The bony structures are osteopenic. The soft tissues are unremarkable XR/XR chest 1V IMPRESSION: Emphysematous change with bilateral patchy consolidation similar to previous study. Consider residual versus recurrent pneumonia.
--- NOTE | 2023-05-24 04:29 | ED_ITS ---
HPI - SOB/Dyspnea General Chief Complaint: Dyspnea Stated Complaint: pneumonia 90% 5l Time Seen by Provider: 05/24/23 04:29 Source: patient Mode of arrival: EMS Limitations: no limitations History of Present Illness HPI Narrative: Patient 82 years old with history of COPD oxygen-dependent, bronchiectasis, ESBL UTI/pneumonia, [place], HFrEF, nonischemic cardiomyopathy, paroxysmal AFib on Eliquis, hypertension, diabetes was admitted from 05/11/2023 discharged from shelter yesterday on meropenem via PICC line comes back at nursing staff noticed increased shortness of breath saturating 86% on 4 L coughing a lot with thick mucus patient was placed on 5 L saturating 92% tachypneic in the ER patient was placed on high-flow similar to that when he was admitted last time patient has flu last month and COVID in 04/04, no chest pain no leg swelling Related Data Home Medications Medication Instructions Recorded Confirmed albuterol sulfate 90 mcg/actuation 2 puff inhalation Q4H PRN wheezing 03/09/23 05/11/23 aerosol inhaler (Ventolin HFA) finasteride 5 mg tablet 5 mg PO DAILY 03/09/23 05/11/23 lovastatin 10 mg tablet 10 mg PO DAILY 03/09/23 05/11/23 omeprazole 40 mg capsule,delayed 40 mg PO DAILY 03/09/23 05/11/23 release sacubitril 24 mg-valsartan 26 mg 1 tab PO BID 03/09/23 05/11/23 tablet (Entresto) travoprost 0.004 % eye drops 1 drp ophthalmic-Right BEDTIME 03/09/23 05/11/23 Previous Rx's Medication Instructions Recorded walker #1 ea 03/20/22 blood-glucose meter (FreeStyle #1 ea 09/13/22 Lite Meter kit) blood sugar diagnostic (FreeStyle #100 ea 10/30/22 Lite Strips) lancets 28 gauge (FreeStyle #100 ea 10/30/22 Lancets) Anoro Ellipta 62.5 mcg-25 1 ea PO DAILY #60 ea 02/12/23 mcg/actuation powder for inhalation (umeclidinium-vilanterol) docusate sodium 100 mg capsule 100 mg PO BID 90 days #180 caps 03/13/23 tamsulosin 0.4 mg capsule 0.4 mg PO DAILY 30 days #30 caps 03/19/23 ipratropium 0.5 mg-albuterol 3 mg 3 ml inhalation QID PRN for 04/06/23 (2.5 mg base)/3 mL nebulization dyspnea #180 mL soln carvedilol 6.25 mg tablet 6.25 mg PO BID #60 tabs 04/17/23 erythromycin 5 mg/gram (0.5 %) eye 0.5 inch ophthalmic (eye) QID #50 05/06/23 ointment grams apixaban 5 mg tablet (Eliquis) 5 mg PO BID 90 days #180 tabs 05/15/23 metformin 500 mg tablet,extended 500 mg PO DAILY 30 days #30 tabs 05/15/23 release 24 hr bumetanide 1 mg tablet 0.5 mg (1/2 x 1 mg) PO Q48H #30 05/22/23 tabs guaifenesin 600 mg tablet, 600 mg PO BID #20 tabs 05/22/23 extended release 12 hr (Mucinex) heparin, porcine (PF) 10 unit/mL 50 unit (5 mL) IVFLUSH TID 8 days 05/22/23 intravenous syringe (Heparin Lock #120 mL Flush (Porcine) (PF)) meropenem 1 gram intravenous 1 g IV Q8H 8 days #24 ea 05/22/23 solution prednisone 10 mg tablet See Taper PO DIRECTED #30 tabs 05/22/23 Allergies Allergy/AdvReac Type Severity Reaction Status Date / Time Penicillins [PENICILLINS] Allergy Intermediate PASSED Verified 05/24/23 04:38 OUT trazodone Allergy Intermediate tremors Verified 05/24/23 04:38 brimonidine [From Alphagan P] Allergy Unknown Verified 05/24/23 04:38 diphenhydramine Allergy Unknown Verified 05/24/23 04:38 [From Benadryl] Review of Systems 2 Review of Systems: Yes all other systems are reviewed and are negative [facility] Past Medical History Medical History Paroxysmal atrial fibrillation Congestive heart failure Bronchiectasis Acute and chronic respiratory failure BPH loc w urin obs/LUTS Urinary retention History of COVID-19 Chronic anticoagulation History of pneumothorax Diabetes Supplemental oxygen dependent COPD (chronic obstructive pulmonary disease) Kidney stone on left side Hearing loss NICM (nonischemic cardiomyopathy) JESSA (mycobacterium avium-intracellulare) Bronchiectasis Glaucoma Pure hypercholesterolemia GERD (gastroesophageal reflux disease) History of MAC infection Essential hypertension Surgical History History of transurethral resection of bladder tumor (TURBT) History of cataract surgery History of left inguinal hernia repair History of bronchoscopy History of colonoscopy History of lumbar surgery History of cystoscopy Family History Family History Father No problems noted. Mother Medical history unknown Sister Diabetes Daughter In good health Son In good health Brother No problems noted. Social History Social History Household Members: None Housing: Apartment Are you a primary complex care nurse practitioner to a significant other at home: No Do you presently have visiting nurse or other home services: Yes (STOPPERER ASSEMBLER) Alcohol intake: never Comment: 1:1 sitter in room Patient Tobacco Use Status: Former Tobacco user Quit Date: 10 years ago Tobacco use type: Cigarette e-Cigarette/Vaping Use: Former Use Second Hand Smoke Exposure: No Advance Directives Date on File: 02/03/22 service: No Current occupational status: retired Cognitive needs: No Hearing needs: Yes Vision needs: Yes Physical Exam 2 Vital Signs: Vital Signs: Last Vital Signs Temp 100.2 F 05/24/23 05:58 Pulse 82 05/24/23 06:21 Resp 28 H 05/24/23 06:21 BP 98/54 L 05/24/23 06:21 Pulse Ox 94 05/24/23 06:21 O2 Del Method High Flow Nasal C annula 05/24/23 06:21 O2 Flow Rate 40 05/24/23 06:21 FiO2 35 05/24/23 06:21 Oxygen Flow Rate 5 05/24/23 04:39 BMI result Body Mass Index 19.9 Appearance: Alert. Oriented X3. With significant respiratory distress Eyes:pallor+ ENT: Pharynx normal. Oral Mucosa moist Neck: Normal inspection. Neck supple. CVS: Normal heart rate and rhythm. Pulses normal. Respiratory: No respiratory distress. Equal air entry bilateral, bilateral rales and prolonged expiration Abdomen: Soft and nontender. Bowel sounds are present, no mass palpable, no CVA tenderness Skin: Skin warm and dry. Normal skin color. Normal skin turgor. Extremities: No lower extremity edema. No calf tenderness Neuro: Oriented X 3. No motor deficit. No sensory deficit.No cerebellar signs , cranial nerves II-XII intact Medications Administered Discontinued Medications Generic Name Dose Route Start Last Admin Trade Name Freq PRN Reason Stop Dose Admin Sodium Chloride 1,000 mls @ 999 mls/hr 05/24/23 05:06 05/24/23 05:10 Ns IV 05/24/23 06:06 999 mls/hr .Q1H1M ONE Administration Vancomycin HCl 1,000 mg/ 270 mls @ 270 mls/hr 05/24/23 05:12 05/24/23 05:38 Sodium Chloride IV 05/24/23 06:11 Not Given ONCE ONE Vancomycin HCl 1,500 mg/ 500 mls @ 333.333 mls/hr 05/24/23 05:30 05/24/23 05:37 Sodium Chloride IV 05/24/23 06:59 333.33 mls/hr ONCE ONE Administration Medical Decision Making Medical Decision Making [facility] Narrative: Patient with bilateral multifocal pneumonia with history of E coli in your urine and blood and sputum ESBL on meropenem the discharge yesterday came with acute hypoxia likely from mucus plugging chest physical therapy was done chest x-ray showed bilateral infiltrate CT chest was ordered patient improved after chest physical therapy and on high-flow saturating 95%. Will admit patient for acute on chronic respiratory failure awaiting for the CT scan of the chest as requested by hospitalist Differential Diagnosis Differential Diagnoses: The differential diagnosis associated with the presentation includes Admission/Observation Consideration of admission/observation: Escalation of care including admission/observation considered Consult Healthcare Provider Management of the patient was discussed with: Hospitalist Lab Data [facility] Lab Attestation statement: I reviewed the patient's lab results. 05/24/23 04:51 05/24/23 04:51 Labs: Lab Results 05/24/23 05/24/23 05/24/23 Range/Units 04:51 04:53 05:14 WBC 25.6 H (4.8-10.8) X10*3/uL RBC 4.12 L D (4.60-5.80) X10*6/uL Hgb 9.8 L D (14.0-18.0) g/dl Hct 31.3 L D (42.0-52.0) % MCV 76.0 L (80.0-98.0) fL MCH 23.8 L (27.0-33.0) pg MCHC 31.3 (31.0-36.0) g/dl RDW 20.4 H (11.0-16.0) % Plt Count 561 H D (160-400) X10*3/uL MPV 9.5 (9.4-12.4) fL Immature Gran % (Auto) 3.7 H (0.0-0.4) % Neut % (Auto) 87.4 H (45-73) % Lymph % (Auto) 3.6 L (20-40) % [place] % (Auto) 4.4 (2-11) % Eos % (Auto) 0.7 (0-4) % Baso % (Auto) 0.2 (0-2) % Lymph # (Auto) 0.9 L (1.2-4.9) X10*3/uL [place] # (Auto) 1.1 (0.1-1.2) X10*3/uL Eos # (Auto) 0.2 (0.0-0.4) X10*3/uL Baso # (Auto) 0.1 (0.0-0.2) X10*3/uL Abs Immat Gran (auto) 0.95 H (0.00-0.03) X10*3/uL Absolute Neuts (auto) 22.3 H (2.0-8.3) x10*3/uL Absolute Nucleated RBC 0.000 (0.0-0.012) X10*3/uL Nucleated RBC % (auto) 0.0 (0.0-0.2) /100WBC Smear Tech's Comments VERIFIED PT 13.9 H (11.1-13.3) SEC INR 1.1 (0.9-1.1) VBG pH 7.51 H (7.32-7.43) VBG pCO2 41 mmHg VBG pO2 58 mmHg VBG HCO3 33 H (22-26) mmol/L VBG O2 Saturation 87.0 % VBG Base Excess 9.8 mmol/L Sodium 133 L (135-145) mmol/L Potassium 4.5 (3.3-5.1) mmol/L Chloride 98 (96-108) mmol/L Carbon Dioxide 30 H (22-29) mmol/L Anion Gap 10 L (12-20) BUN 21 H (9-16) mg/dL Creatinine 0.70 (0.5-1.4) mg/dL Estim Creat Clear Calc 66.6 Estimated GFR > 60 Random Glucose 166 H (60-115) mg/dL Lactic Acid 1.8 (0.5-2.0) mmol/L Calcium 8.7 (8.4-10.2) mg/dL Magnesium 1.9 (1.6-2.6) mg/dL Total Bilirubin 0.5 (0.0-1.0) mg/dL AST 27 (5-37) U/L ALT 50 H (0-40) U/L Alkaline Phosphatase 97 (39-117) U/L Troponin I High Sens 3.8 (<3.5-35.0) ng/L B-Natriuretic Peptide 33 (<100) pg/mL Total Protein 6.9 (6.5-8.0) g/dL Albumin 3.0 L (3.5-5.0) g/dL Urine Color Yellow Urine Appearance Clear Urine pH 8.0 (5.0-9.0) Ur Specific [place] 1.020 (1.005-1.025) Urine Protein Trace (Neg-Trace) mg/dL Urine Glucose (UA) Negative (Negative) mg/dL Urine Ketones Negative (Negative) mg/dL Urine Blood Trace H (Negative) Urine Nitrite Negative (Negative) Ur Leukocyte Esterase Small (1+) H (Negative) Urine RBC 3-5 H (0-2) /HPF Urine WBC 6-10 (0-5) /HPF Ur Squamous Epith Cells 0-2 (0-2) /HPF Urine Bacteria Trace (None Seen) Hyaline Casts 0-2 (0-2) /LPF Urine Yeast Present Influenza Type A (PCR) NEGATIVE (Negative) Influenza Type B (PCR) NEGATIVE (Negative) RSV RNA Qual (PCR) NEGATIVE (Negative) SARS-CoV-2 RNA (RT-PCR) NEGATIVE (Negative) Independent Interpretation I performed an independent interpretation of an: EKG Interpretation: Sinus rhythm with heart rate 91 beats per minute right bundle-branch block no acute ST wave changes no acute ischemia Critical Care Time Critical Care Time Critical Care Time: Yes Total Critical Care Time: 55 Attestation: The patient was critically ill with a high probability of imminent or life threatening deterioration. I spent greater than 60 ???minutes of discontinuous time evaluating the patient,delivering critical care at the bedside, discussing and evaluating pertinent data with consultants. Critical care time does not include time spent performing separately billable procedures or teaching. Total time spent performing critical care was 55???minutes. Discharge Plan Discharge Clinical Impression: Acute and chronic respiratory failure with hypoxia, Pneumonia Patient Disposition: Admitted As Inpatient
--- NOTE | 2023-05-24 04:30 | PC.NURSE ---
Addendum entered by Jyothi Mayer 05/24/23 06:12: Pt has midline to right inner upper arm. Original Note: Pt A&Ox3, denies any pain. Baseline on home o2, EMS increased O2 to 5L via NC r/t increase WOB. Pt from [facility], staff reports increase SOB since 11pm last night with no improvement of breathing tx. SpO2 ranging from 86-88% on 5L via NC, lung sounds rhonchi/diminished.
--- NOTE | 2023-05-24 04:45 | PC.NURSE ---
SpO2 86% on 5L via NC, RT at bedside placing Pt on high flow.
[2023-05-24 04:57] LABS: Venous Blood Gas Refer to POC result
[2023-05-24 05:00] LABS: Basophils Absolute Auto 0.1 X10*3/uL (0.0-0.2); Basophils Percent Auto 0.2 % (0-2); Eosinophils Absolute Auto 0.2 X10*3/uL (0.0-0.4); Eosinophils Percent Auto 0.7 % (0-4); Hematocrit 31.3 % (42.0-52.0); Hemoglobin 9.8 g/dl (14.0-18.0); Imm Gran Abs Auto 0.95 X10*3/uL (0.00-0.03); Imm Gran Pct Auto 3.7 % (0.0-0.4); Lymphocytes Absolute Auto 0.9 X10*3/uL (1.2-4.9); Lymphocytes Percent Auto 3.6 % (20-40); MANUAL DIFF FLAG SCAN; Mean Corpuscular HGB Conc 31.3 g/dl (31.0-36.0); Mean Corpuscular Hemoglobin 23.8 pg (27.0-33.0); Mean Platelet Volume 9.5 fL (9.4-12.4); Monocytes Absolute Auto 1.1 X10*3/uL (0.1-1.2); Monocytes Percent Auto 4.4 % (2-11); Neutrophils Absolute Auto 22.3 x10*3/uL (2.0-8.3); Neutrophils Percent Auto 87.4 % (45-73); Platelet Count 561 X10*3/uL (160-400); Red Blood Count 4.12 X10*6/uL (4.60-5.80); Red Cell Distribution Width 20.4 % (11.0-16.0); SCAN SMEAR FLAG 1; White Blood Count 25.6 X10*3/uL (4.8-10.8)
[2023-05-24 05:01] LABS: VBG Base Excess 9.8 mmol/L; VBG HCO3 33 mmol/L (22-26); VBG pCO2 41 mmHg; VBG pH 7.51 (7.32-7.43); VBG pO2 58 mmHg
--- NOTE | 2023-05-24 05:02 | MHC.EDTECH ---
Patient came in by ambulance,changed into hospital attire and placed on the laboratory monitor,EKG taken per order and signed by provider, vitals taken,rectal temp of 100.0 BP is 100/56 and RN made aware. Labs and blood cultures obtained and sent to lab. Patient urinated 50MLS in urinal. Call yin in reach
--- NOTE | 2023-05-24 05:09 | MHC.EDTECH ---
Belongings list completed and copy placed in chart.
[2023-05-24] MEDS: 0.9 % Sodium Chloride 1,000 ML 999 ML IV (05:10)
[2023-05-24 05:12] LABS: Lactic Acid 1.8 mmol/L (0.5-2.0)
[2023-05-24 05:16] LABS: Alanine Aminotransferase 50 U/L (0-40); Alkaline Phosphatase 97 U/L (39-117); Anion Gap 10 (12-20); Aspartate Amino Transferase 27 U/L (5-37); Bilirubin Total 0.5 mg/dL (0.0-1.0); Blood Urea Nitrogen 21 mg/dL (9-16); Calcium 8.7 mg/dL (8.4-10.2); Carbon Dioxide 30 mmol/L (22-29); Chloride 98 mmol/L (96-108); Creatinine Clr Calc Pharmacy 66.6; Estimated Glomerular Filt Rate > 60; Glucose Random 166 mg/dL (60-115); Magnesium 1.9 mg/dL (1.6-2.6); Potassium 4.5 mmol/L (3.3-5.1); Sodium 133 mmol/L (135-145); Total Protein 6.9 g/dL (6.5-8.0)
[2023-05-24 05:20] LABS: SLIDE REVIEW VERIFIED
[2023-05-24 05:22] LABS: B Type Natriuretic Peptide 33 pg/mL (<100); Troponin-I High Sensitivity 3.8 ng/L (<3.5-35.0)
[2023-05-24 05:23] LABS: Appearance Urine Clear; Color Urine Yellow; Glucose Urine UA Negative (Negative); Leukocyte Esterase Urine Small (1+) (Negative); Nitrite Urine Negative (Negative); UMIC TRIGGER UACC YES; Urine Blood Trace (Negative); Urine Ketones Negative (Negative); Urine Protein Trace mg/dL (Neg-Trace)
[2023-05-24 05:24] LABS: INTERNATIONAL NORM RATIO 1.1 (0.9-1.1); Prothrombin Time 13.9 SEC (11.1-13.3)
--- NOTE | 2023-05-24 05:32 | PC.NURSE ---
RT at bedside performing CPT. Pt tolerating well.
[2023-05-24] MEDS: vancomycin HCL 1,500 MG in 0.9 % Sodium Chloride 500 ML 333.33 MG IV (05:37)
[2023-05-24 05:49] LABS: Bacteria Urine Trace (None Seen); Hyaline Casts Urine 0-2 /LPF (0-2); Squamous Epithelial Cell Urine 0-2 /HPF (0-2); UACC Culture Trigger YES
[2023-05-24 05:59] LABS: Influenza A PCR NEGATIVE (Negative); Influenza B PCR NEGATIVE (Negative); Resp Syncy Virus RNA Qual PCR NEGATIVE (Negative); SARS COV2 PCR INHOUSE NEGATIVE (Negative)
--- NOTE | 2023-05-24 06:01 | MHC.EDTECH ---
Hourly rounds and vitals completed,rectal temp 100.2 RN made aware,patient urinated 100MLS in urinal,radha care given,patient was repositioned to comfort,call yin in reach
--- NOTE | 2023-05-24 06:22 | MHC.EDTECH ---
Vitals taken,BP is low 98/54 RN made aware.Patient is resting at this time,call yin in reach
--- NOTE | 2023-05-24 08:00 | PHA.MEDREC ---
Pharmacy Consult ? Medication Reconciliation Pharmacy has completed the medication reconciliation. Confirmed patient medications with list from facility ([facility]).
--- NOTE | 2023-05-24 09:15 | PM.IMHP ---
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 patient had been discharged from [facility] day prior to presentation after hospitalization for hyoxia from aspriation penumonia, chf, and esbl ecoli bacteremia. patient had been back to baseline o2, feeling well, discharged to SNF to complete course of meropenem and on steroid taper. at 11pm on night of presentation staff noted incrased SOB and worsening hypoxia - 87% on 4L. EMS was called. in ED was put on high flow, found to have worsening bilateral opacities, leukocytosis. Review of Systems Review of Systems: Yes all other systems are reviewed and are negative [facility] Medical History Paroxysmal atrial fibrillation Congestive heart failure Bronchiectasis Acute and chronic respiratory failure BPH loc w urin obs/LUTS Urinary retention History of COVID-19 Chronic anticoagulation History of pneumothorax Diabetes Supplemental oxygen dependent COPD (chronic obstructive pulmonary disease) Kidney stone on left side Hearing loss NICM (nonischemic cardiomyopathy) JESSA (mycobacterium avium-intracellulare) Bronchiectasis Glaucoma Pure hypercholesterolemia GERD (gastroesophageal reflux disease) History of MAC infection Essential hypertension Family History Father No problems noted. Mother Medical history unknown Sister Diabetes Daughter In good health Son In good health Brother No problems noted. 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) Alcohol intake: never Comment: 1:1 sitter in room Patient Tobacco Use Status: Former Tobacco user Quit Date: 10 years ago Tobacco use type: Cigarette e-Cigarette/Vaping Use: Former Use Second Hand Smoke Exposure: No Advance Directives Date on File: 02/03/22 service: No Current occupational status: retired Cognitive needs: No Hearing needs: Yes Vision needs: Yes Meds Allergies Allergy/AdvReac Type Severity Reaction Status Date / Time Penicillins [PENICILLINS] Allergy Intermediate PASSED Verified 05/24/23 04:38 OUT trazodone Allergy Intermediate tremors Verified 05/24/23 04:38 brimonidine [From Alphagan P] Allergy Unknown Verified 05/24/23 04:38 diphenhydramine Allergy Unknown Verified 05/24/23 04:38 [From Benadryl] Active Medications: Current Medications Apixaban (Apixaban 5 Mg Tablet) 5 mg PO BID [facility] Bisacodyl (Bisacodyl 10 Mg Supp.Rect) 10 mg MT DAILY PRN PRN Reason: Constipation Carvedilol (Carvedilol 6.25 Mg Tablet) 6.25 mg PO BID [facility]; Protocol Dextrose (Dextrose 50 % 25 Gm/50 Ml Syringe) 25 gm IVPUSH Q15M PRN; Protocol PRN Reason: per Hypoglycemia Standing Ord. Finasteride (Finasteride 5 Mg Tablet) 5 mg PO DAILY [facility] Glucose (Glucose Gel 15 Gm Gel..Gram.) 15 gm PO Q15M PRN; Protocol PRN Reason: per Hypoglycemia Standing Ord. Guaifenesin (Guaifenesin La 600 Mg Tab.Er.12h) 600 mg PO BID [facility] Heparin Sodium (Porcine) (Heparin Sodium,Porcine Flush 50 Units/5 Ml Syringe) 50 units IVFLUSH TID [facility] Insulin Human Lispro (Insulin Lispro 100 Unit/Ml 3 Ml Vial) 0 unit SUBCUT QIDACHS [facility]; Protocol Meropenem (Meropenem 1 Gm Vial) 1 gm IV Q8H [facility] Non-Formulary Medication (Esomeprazole Magnesium) 40 mg PO DAILY@0630 [facility] Non-Formulary Medication (Lovastatin) 10 mg PO DAILY [facility] Non-Formulary Medication (Travoprost) 1 drop EYE-RIGHT BEDTIME [facility] Pharmacy Consult (Consult Rx Vancomycin Dosing) 1 each MISCELLANE DAILY PRN PRN Reason: Consult order Sodium Chloride (0.9 % Sodium Chloride Flush 3 Ml Syringe) 3 ml IVFLUSH QSHIFT [facility] Tamsulosin HCl (Tamsulosin Hcl 0.4 Mg Capsule) 0.4 mg PO DAILY [facility] Home Medications Medication Instructions Recorded Confirmed Last Taken Type albuterol sulfate 90 mcg/actuation 2 puff inhalation Q4H PRN wheezing 03/09/23 05/24/23 Unknown History aerosol inhaler (Ventolin HFA) finasteride 5 mg tablet 5 mg PO DAILY 03/09/23 05/24/23 03/08/23 History lovastatin 10 mg tablet 10 mg PO DAILY 03/09/23 05/24/23 03/08/23 History travoprost 0.004 % eye drops 1 drp ophthalmic-Right BEDTIME 03/09/23 05/24/23 03/07/23 History acetaminophen 325 mg tablet 650 mg PO Q6H PRN Pain 05/24/23 05/24/23 Unknown History bisacodyl 10 mg rectal suppository 10 mg MT DAILY PRN Constipation 05/24/23 05/24/23 Unknown History (Dulcolax (bisacodyl)) esomeprazole magnesium 40 mg 40 mg PO DAILY@0630 05/24/23 05/24/23 Unknown History capsule,delayed release magnesium hydroxide 400 mg/5 mL 30 ml PO DAILY PRN Constipation 05/24/23 05/24/23 Unknown History oral suspension (Milk of Magnesia) sodium phosphates 19 gram-7 118 ml MT DAILY PRN Constipation 05/24/23 05/24/23 Unknown History gram/118 mL enema (Fleet Enema) Physical Exam Vital Signs and Narrative: Vital Signs: Last Vital Signs Temp 98.9 F 05/24/23 08:11 Pulse 81 05/24/23 08:11 Resp 20 05/24/23 08:37 BP 97/54 L 05/24/23 08:11 Pulse Ox 92 05/24/23 08:11 O2 Del Method High Flow Nasal C annula 05/24/23 08:11 O2 Flow Rate 40 05/24/23 06:21 FiO2 35 05/24/23 06:21 Oxygen Flow Rate 5 05/24/23 04:39 BMI result Body Mass Index 19.9 General: AO X 3, some acute distress Resp: diminished with crackles bilateral, mild accessory muscles used CVS: S1,S2,RRR GI: soft, non tender, non distended Neuro: motor grossly intact, alert Psych: appropriate affect, appropriate insight Results Labs 05/24/23 04:51 05/24/23 04:51 Labs: Laboratory Results - last 24 hr 05/24/23 05/24/23 05/24/23 04:51 04:53 05:14 MCV 76.0 L MCH 23.8 L MCHC 31.3 RDW 20.4 H Plt Count 561 H D MPV 9.5 Immature Gran % (Auto) 3.7 H Neut % (Auto) 87.4 H Lymph % (Auto) 3.6 L [place] % (Auto) 4.4 Eos % (Auto) 0.7 Baso % (Auto) 0.2 Lymph # (Auto) 0.9 L [place] # (Auto) 1.1 Eos # (Auto) 0.2 Baso # (Auto) 0.1 Abs Immat Gran (auto) 0.95 H Absolute Neuts (auto) 22.3 H Absolute Nucleated RBC 0.000 Nucleated RBC % (auto) 0.0 Smear Tech's Comments VERIFIED PT 13.9 H INR 1.1 VBG pH 7.51 H VBG pCO2 41 VBG pO2 58 VBG HCO3 33 H VBG O2 Saturation 87.0 VBG Base Excess 9.8 Anion Gap 10 L Estim Creat Clear Calc 66.6 Estimated GFR > 60 Random Glucose 166 H Lactic Acid 1.8 Calcium 8.7 Magnesium 1.9 Total Bilirubin 0.5 AST 27 ALT 50 H Alkaline Phosphatase 97 Troponin I High Sens 3.8 B-Natriuretic Peptide 33 Total Protein 6.9 Albumin 3.0 L Urine Color Yellow Urine Appearance Clear Urine pH 8.0 Ur Specific [place] 1.020 Urine Protein Trace Urine Glucose (UA) Negative Urine Ketones Negative Urine Blood Trace H Urine Nitrite Negative Ur Leukocyte Esterase Small (1+) H Urine RBC 3-5 H Urine WBC 6-10 Ur Squamous Epith Cells 0-2 Urine Bacteria Trace Hyaline Casts 0-2 Urine Yeast Present Influenza Type A (PCR) NEGATIVE Influenza Type B (PCR) NEGATIVE RSV RNA Qual (PCR) NEGATIVE SARS-CoV-2 RNA (RT-PCR) NEGATIVE Imaging Radiologist's Impressions: Impressions Chest X-Ray 05/24/23 04:44 IMPRESSION: Emphysematous change with bilateral patchy consolidation similar to previous study. Consider residual versus recurrent pneumonia. 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
--- NOTE | 2023-05-24 09:43 | PC.NURSE ---
Pt taken to CT, he was taken off high flow and placed on 6L oxy-mask by RT, satting mid to high 90s. Per RT pt can remain on 6L oxy-mask. Pt tolerating well. He was seen by Dr. Coker and is now admitted. Pt resting quietly, no apparent distress.
[2023-05-24] MEDS: methylPREDNISolone Sod Succ 40 MG/ML VIAL IVPUSH ×2 (12:33→22:55)
--- NOTE | 2023-05-24 12:40 | PC.NURSE ---
Pt satting 96% on 6L oxymask per RT, he is now on 6L N/C satting 91-93%.
[2023-05-24 13:24] LABS: Glucose, Whole Blood 112 mg/dL (60-115)
--- NOTE | 2023-05-24 14:14 | MHC.SL.SWA ---
Speech Pathologist Impression: Risk of Aspiration Due to: Medically Fragile History of Pneumonia Dysphasia Diet Status: Liquid Consistency and Strategies for Safe Swallow: Liquid Intake Recommendation: Bagnell Thick Liquid Intake Strategies: Small Sips No Straws Solid Food Consistency: Dietary Recommendations: Pureed (NDD1) Additional Modifications to Solid Foods: Patient requires one to one feed/full supervision with strict aspiration precautions. Monitor 02 saturation during meal, discontinue if Sats drop without rebound, or if patient evidences increased upper airway noise, coughing, wet vocal quality (clinical signs of aspiration). Add sauces and gravies to purees and blend well. Oral Medication Intake: Crushed with Puree Please contact the pharmacy regarding appropriate crushable or liquid drug formulations that are available whenever modified delivery is recommended. Compensatory Strategies and Precautions to be Taken for Safe Swallow: Sitting Upright (90 deg) Liquids from Cup Small Bites and Sips Alternate Liquids/Solids Oral Check Supervision While Eating and Drinking for Safe Swallow: Total Assistance (1:1) Foods to Avoid: Sticky, congealed purees. Swallowing Recommended Treatments: Compens. Strategy Educat. Recommendation for Speech: Inpatient Speech Therapy Modified Barium Swallow Study - Inpatient Comment: Patient presents with mild to moderate oral pharyngeal dysphagia, characterized by mildly decreased strength of oral structures, mildy disorganized oral phase, mild delay of swallow with reduced laryngeal elevation on swallow. Patient was seen during last admission, at that time there was ? silent/chronic aspiration however patient presented as too weak/medically fragile and not appropriate for MBSS study. Patient with this re-admission ?aspiration pna, would recommend MBSS at this time. Recommend patient START diet of Puree (NDD1) with NECTAR THICK liquids, pills crushed in Puree. DELVIN CAMPOS notified of recommendation by secure text, MD ordered MBSS study. Frequency/Duration: M-F while inpatient. Date Range for Service Req: Timeline to reassess: Electrical Troubleshooter Clinican/Clinical Fellow: No Supervisory Statement: I have reviewed and agree with the student/clinical fellow's documentation: N/A Speech Language Pathologist: Amanda Graff M.A., CCC-UNIT CONTROLLER
[2023-05-24 18:37] LABS: Glucose, Whole Blood 188 mg/dL (60-115)
[2023-05-24] MEDS: Meropenem 1 GM VIAL IV ×2 (18:42→23:54)
[2023-05-24] MEDS: Insulin Lispro 100 UNIT/ML 3 ML VIAL SUBCUT (18:43)
[2023-05-24] MEDS: Apixaban 5 MG TABLET PO (22:55)
[2023-05-24] MEDS: carvediloL 6.25 MG TABLET PO (22:55)
[2023-05-24] MEDS: guaiFENesin LA 600 MG TAB.ER.12H PO (22:55)
[2023-05-24] MEDS: Heparin Sodium,Porcine Flush 50 UNITS/5 ML SYRINGE IVFLUSH (22:56)
[2023-05-25 03:24] VITALS: BP 110/56; PULSE 71; RESP 18; TEMP 36.9; O2SAT 94
[2023-05-25] MEDS: Omeprazole 20 MG CAPSULE.DR PO (05:58)
[2023-05-25 06:48] LABS: Hematocrit 24.5 % (42.0-52.0); Hemoglobin 7.6 g/dl (14.0-18.0); Mean Corpuscular Hemoglobin 24.6 pg (27.0-33.0); Mean Corpuscular Volume 79.3 fL (80.0-98.0); Mean Platelet Volume 10.1 fL (9.4-12.4); Platelet Count 385 X10*3/uL (160-400); Red Blood Count 3.09 X10*6/uL (4.60-5.80); Red Cell Distribution Width 21.5 % (11.0-16.0)
[2023-05-25 06:51] LABS: White Blood Count 19.8 X10*3/uL (4.8-10.8)
[2023-05-25 06:57] LABS: Anion Gap 7 (12-20); Blood Urea Nitrogen 18 mg/dL (9-16); Calcium 8.1 mg/dL (8.4-10.2); Carbon Dioxide 29 mmol/L (22-29); Chloride 102 mmol/L (96-108); Creatinine Clr Calc Pharmacy 68.6; Estimated Glomerular Filt Rate > 60; Glucose Fasting 210 mg/dL (60-99); Potassium 4.5 mmol/L (3.3-5.1); Sodium 133 mmol/L (135-145)
[2023-05-25 07:04] LABS: Glucose, Whole Blood 136 mg/dL (60-115)
[2023-05-25 07:16] LABS: Glucose, Whole Blood 193 mg/dL (60-115)
[2023-05-25 07:47] VITALS: BP 99/54; PULSE 68; RESP 20; TEMP 36.6; O2SAT 95
--- NOTE | 2023-05-25 09:02 | HO.PM.IMPN ---
Subjective Subjective Date of Service: 05/25/23 Interval History: feels much better today, back to baseline Physical Exam Vital Signs: Vital Signs: Last Vital Signs Temp 97.8 F 05/25/23 07:47 Pulse 68 05/25/23 07:47 Resp 20 05/25/23 07:47 BP 99/54 L 05/25/23 07:47 Pulse Ox 95 05/25/23 07:47 O2 Del Method Nasal Cannula 05/25/23 07:47 O2 Flow Rate 4 05/25/23 07:47 FiO2 35 05/24/23 06:21 Oxygen Flow Rate 5 05/24/23 04:39 BMI result Body Mass Index 19.9 General: AO X 3, no acute distress Resp: diminished and crackly bilateral, no accessory muscles used CVS: S1,S2,RRR GI: soft, non tender, non distended Neuro: motor grossly intact, alert Psych: appropriate affect, appropriate insight Objective Data Active Medications Apixaban (Apixaban 5 Mg Tablet) 5 mg PO BID [facility] Last Admin: 05/24/23 22:55 Dose: 5 mg Documented By: NAUN Bisacodyl (Bisacodyl 10 Mg Supp.Rect) 10 mg [place] DAILY PRN PRN Reason: Constipation Carvedilol (Carvedilol 6.25 Mg Tablet) 6.25 mg PO BID [facility]; Protocol Last Admin: 05/24/23 22:55 Dose: 6.25 mg Documented By: NAUN Dextrose (Dextrose 50 % 25 Gm/50 Ml Syringe) 25 gm IVPUSH Q15M PRN; Protocol PRN Reason: per Hypoglycemia Standing Ord. Finasteride (Finasteride 5 Mg Tablet) 5 mg PO DAILY [facility] Glucose (Glucose Gel 15 Gm Gel..Gram.) 15 gm PO Q15M PRN; Protocol PRN Reason: per Hypoglycemia Standing Ord. Guaifenesin (Guaifenesin La 600 Mg Tab.Er.12h) 600 mg PO BID [facility] Last Admin: 05/24/23 22:55 Dose: 600 mg Documented By: NAUN Heparin Sodium (Porcine) (Heparin Sodium,Porcine Flush 50 Units/5 Ml Syringe) 50 units IVFLUSH TID [facility] Last Admin: 05/24/23 22:56 Dose: 50 units Documented By: NAUN Insulin Human Lispro (Insulin Lispro 100 Unit/Ml 3 Ml Vial) 0 unit SUBCUT QIDACHS [facility]; Protocol Last Admin: 05/25/23 00:15 Dose: Not Given Documented By: NAUN Non-Admin Reason: Patient Refused Latanoprost (Latanoprost 0.005 % Ophth Thalia 2.5 Ml Drops) 1 drop EYE-RIGHT BEDTIME [facility] Last Admin: 05/24/23 23:53 Dose: Not Given Documented By: NAUN Non-Admin Reason: Med Not Available Meropenem (Meropenem 1 Gm Vial) 1 gm IV Q8H [facility] Last Admin: 05/24/23 23:54 Dose: 1 gm Documented By: NAUN Methylprednisolone Sodium Succinate (Methylprednisolone Sod Succ 40 Mg/Ml Vial) 40 mg IVPUSH Q12H [facility] Last Admin: 05/24/23 22:55 Dose: 40 mg Documented By: NAUN Omeprazole (Omeprazole 20 Mg Capsule.Dr) 20 mg PO DAILY@0630 [facility] Last Admin: 05/25/23 05:58 Dose: 20 mg Documented By: NAUN Pravastatin Sodium (Pravastatin Sodium 10 Mg Tablet) 10 mg PO DAILY [facility] Sodium Chloride (0.9 % Sodium Chloride Flush 3 Ml Syringe) 3 ml IVFLUSH QSHIFT [facility] Last Admin: 05/24/23 20:18 Dose: Not Given Documented By: ILDA Non-Admin Reason: IV Running Tamsulosin HCl (Tamsulosin Hcl 0.4 Mg Capsule) 0.4 mg PO DAILY [facility] Labs 05/25/23 06:21 05/25/23 06:21 Labs: Laboratory Results - last 24 hr 05/24/23 05/24/23 05/25/23 13:13 18:28 00:18 MCV MCH MCHC RDW Plt Count MPV Absolute Nucleated RBC Nucleated RBC % (auto) Anion Gap Estim Creat Clear Calc Estimated GFR POC Glucose 112 188 H 136 H Fasting Glucose Calcium 05/25/23 05/25/23 06:21 07:04 MCV 79.3 L MCH 24.6 L MCHC 31.0 RDW 21.5 H Plt Count 385 D MPV 10.1 Absolute Nucleated RBC 0.000 Nucleated RBC % (auto) 0.0 Anion Gap 7 L Estim Creat Clear Calc 68.6 Estimated GFR > 60 POC Glucose 193 H Fasting Glucose 210 H Calcium 8.1 L D Microbiology Microbiology Results: Microbiology 05/24/23 04:52 Blood Culture - Preliminary Blood - Venous No growth after 24 hours. 05/24/23 04:51 Blood Culture - Preliminary Blood - Venous No growth after 24 hours. 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, bronchiectases, ESBL pneumonia, JESSA, HFrEF, nonischemic cardiomyopathy, paroxysmal AFib on Eliquis, HTN, HLD, cmh-[id number] diabetes type 2, GERD, BPH, hx nephrolithiasis, and lumbar degenerative disc disease presented to the ED with?SOB and hypoxia sepsis and acute on chronic hypoxic respiratory failure due to suspected aspiration pneumonia in patient with endstage copd/bronchiectasis, JESSA now close to baseline, rapid recovery favors larger contribution of aspiratoin chemical pneumonitis for bacterial pneumonia component and previous bacteremia continue meropenem (esbl ecoli) 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
[2023-05-25] MEDS: Insulin Lispro 100 UNIT/ML 3 ML VIAL SUBCUT ×3 (09:32→16:56)
[2023-05-25] MEDS: Apixaban 5 MG TABLET PO ×2 (09:33→21:10)
[2023-05-25] MEDS: Finasteride 5 MG TABLET PO (09:33)
[2023-05-25] MEDS: methylPREDNISolone Sod Succ 40 MG/ML VIAL IVPUSH ×2 (09:33→22:32)
[2023-05-25] MEDS: Pravastatin Sodium 10 MG TABLET PO (09:33)
[2023-05-25] MEDS: Tamsulosin HCL 0.4 MG CAPSULE PO (09:33)
[2023-05-25] MEDS: carvediloL 6.25 MG TABLET PO ×2 (09:33→21:10)
[2023-05-25] MEDS: guaiFENesin LA 600 MG TAB.ER.12H PO ×2 (09:33→21:10)
--- NOTE | 2023-05-25 09:39 | P.CONPL_ITS ---
History of Present Illness History of Present Illness Consult date: 05/25/23 Chief complaint: Hypoxia Narrative: This is an inpatient pulmonary consultation. 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 patient had been discharged from [facility] day prior to presentation after hospitalization for hyoxia from aspriation penumonia, chf, and esbl ecoli bacteremia. patient had been back to baseline o2, feeling well, discharged to SNF to complete course of meropenem and on steroid taper. at 11pm on night of presentation staff noted incrased SOB and worsening hypoxia - 87% on 4L. EMS was called. in ED was put on high flow, found to have worsening bilateral opacities, leukocytosis. He was admitted to [facility] and placed on vancomycin/meropenem. Feeling a little better. Review of Systems 2 Constitutional: Constitutional: Denies night sweats ENT: Denies change in voice, Denies lip swelling, Denies mouth pain, Reports nasal congestion, Reports nasal discharge and Denies tongue swelling Cardiovascular: Cardiovascular: Denies chest pain and Reports dyspnea Respiratory: Respiratory: Reports change in phlegm color, Reports chest congestion, Reports cough, Denies hemoptysis, Reports dyspnea and Denies wheezing Gastrointestinal: Gastrointestinal: Denies abdominal pain Musculoskeletal: Musculoskeletal: Denies no additional musculoskeletal complaints Neurologic: Denies Neuro-related abnormal movements Psychiatric: Psychiatric: Denies no additional psychiatric complaints Hematologic/Lymphatic: Hematologic/Lymphatic: Denies easy bleeding and Denies lymphadenopathy Allergic/Immunologic: Allergic/Immunologic: Denies lip swelling, Denies tongue swelling and Denies wheezing PMFSH Past Medical History Medical History (Updated 05/25/23 @ 09:44 by Yao Lopez MD) Bronchiectasis Paroxysmal atrial fibrillation Congestive heart failure Acute and chronic respiratory failure BPH loc w urin obs/LUTS Urinary retention History of COVID-19 Chronic anticoagulation History of pneumothorax Diabetes Supplemental oxygen dependent COPD (chronic obstructive pulmonary disease) Kidney stone on left side Hearing loss NICM (nonischemic cardiomyopathy) JESSA (mycobacterium avium-intracellulare) Bronchiectasis Glaucoma Pure hypercholesterolemia GERD (gastroesophageal reflux disease) History of MAC infection Essential hypertension Family History Family History Father No problems noted. Mother Medical history unknown Sister Diabetes Daughter In good health Son In good health Brother No problems noted. Surgical History Surgical History History of transurethral resection of bladder tumor (TURBT) History of cataract surgery History of left inguinal hernia repair History of bronchoscopy History of colonoscopy History of lumbar surgery History of cystoscopy Social History Social History Household Members: Other Housing: Other Housing Other:: [facility] Are you a primary physician assistant primary care to a significant other at home: No Do you presently have visiting nurse or other home services: No Alcohol intake: never Comment: 1:1 sitter in room Patient Tobacco Use Status: Former Tobacco user Quit Date: 10 years ago Tobacco use type: Cigarette e-Cigarette/Vaping Use: Former Use Second Hand Smoke Exposure: No Advance Directives Date on File: 02/03/22 service: No Current occupational status: retired Cognitive needs: No Hearing needs: Yes Vision needs: Yes Meds Allergies Allergy/AdvReac Type Severity Reaction Status Date / Time Penicillins [PENICILLINS] Allergy Intermediate PASSED Verified 05/24/23 04:38 OUT trazodone Allergy Intermediate tremors Verified 05/24/23 04:38 brimonidine [From Alphagan P] Allergy Unknown Verified 05/24/23 04:38 diphenhydramine Allergy Unknown Verified 05/24/23 04:38 [From Benadryl] Active Medications: Current Medications Apixaban (Apixaban 5 Mg Tablet) 5 mg PO BID [facility] Last Admin: 05/25/23 09:33 Dose: 5 mg Bisacodyl (Bisacodyl 10 Mg Supp.Rect) 10 mg FL DAILY PRN PRN Reason: Constipation Carvedilol (Carvedilol 6.25 Mg Tablet) 6.25 mg PO BID [facility]; Protocol Last Admin: 05/25/23 09:33 Dose: 6.25 mg Dextrose (Dextrose 50 % 25 Gm/50 Ml Syringe) 25 gm IVPUSH Q15M PRN; Protocol PRN Reason: per Hypoglycemia Standing Ord. Finasteride (Finasteride 5 Mg Tablet) 5 mg PO DAILY [facility] Last Admin: 05/25/23 09:33 Dose: 5 mg Glucose (Glucose Gel 15 Gm Gel..Gram.) 15 gm PO Q15M PRN; Protocol PRN Reason: per Hypoglycemia Standing Ord. Guaifenesin (Guaifenesin La 600 Mg Tab.Er.12h) 600 mg PO BID [facility] Last Admin: 05/25/23 09:33 Dose: 600 mg Heparin Sodium (Porcine) (Heparin Sodium,Porcine Flush 50 Units/5 Ml Syringe) 50 units IVFLUSH TID [facility] Last Admin: 05/24/23 22:56 Dose: 50 units Doxycycline Hyclate 100 mg/ (Sodium Chloride) 250 mls @ 166.67 mls/hr IV Q12H [facility] Insulin Human Lispro (Insulin Lispro 100 Unit/Ml 3 Ml Vial) 0 unit SUBCUT QIDACHS [facility]; Protocol Last Admin: 05/25/23 09:32 Dose: 2 unit Latanoprost (Latanoprost 0.005 % Ophth Thalia 2.5 Ml Drops) 1 drop EYE-RIGHT BEDTIME [facility] Last Admin: 05/24/23 23:53 Dose: Not Given Meropenem (Meropenem 1 Gm Vial) 1 gm IV Q8H [facility] Last Admin: 05/25/23 09:32 Dose: 1 gm Methylprednisolone Sodium Succinate (Methylprednisolone Sod Succ 40 Mg/Ml Vial) 40 mg IVPUSH Q12H [facility] Last Admin: 05/25/23 09:33 Dose: 40 mg Omeprazole (Omeprazole 20 Mg Capsule.Dr) 20 mg PO DAILY@0630 [facility] Last Admin: 05/25/23 05:58 Dose: 20 mg Pravastatin Sodium (Pravastatin Sodium 10 Mg Tablet) 10 mg PO DAILY [facility] Last Admin: 05/25/23 09:33 Dose: 10 mg Sodium Chloride (0.9 % Sodium Chloride Flush 3 Ml Syringe) 3 ml IVFLUSH QSHIFT [facility] Last Admin: 05/24/23 20:18 Dose: Not Given Tamsulosin HCl (Tamsulosin Hcl 0.4 Mg Capsule) 0.4 mg PO DAILY [facility] Last Admin: 05/25/23 09:33 Dose: 0.4 mg Home Medications Medication Instructions Recorded Confirmed Last Taken Type albuterol sulfate 90 mcg/actuation 2 puff inhalation Q4H PRN wheezing 03/09/23 05/24/23 Unknown History aerosol inhaler (Ventolin HFA) finasteride 5 mg tablet 5 mg PO DAILY 03/09/23 05/24/23 03/08/23 History lovastatin 10 mg tablet 10 mg PO DAILY 03/09/23 05/24/23 03/08/23 History travoprost 0.004 % eye drops 1 drp ophthalmic-Right BEDTIME 03/09/23 05/24/23 03/07/23 History acetaminophen 325 mg tablet 650 mg PO Q6H PRN Pain 05/24/23 05/24/23 Unknown History bisacodyl 10 mg rectal suppository 10 mg FL DAILY PRN Constipation 05/24/23 05/24/23 Unknown History (Dulcolax (bisacodyl)) esomeprazole magnesium 40 mg 40 mg PO DAILY@0630 05/24/23 05/24/23 Unknown History capsule,delayed release magnesium hydroxide 400 mg/5 mL 30 ml PO DAILY PRN Constipation 05/24/23 05/24/23 Unknown History oral suspension (Milk of Magnesia) sodium phosphates 19 gram-7 118 ml FL DAILY PRN Constipation 05/24/23 05/24/23 Unknown History gram/118 mL enema (Fleet Enema) Physical Exam 2 Vital Signs: Vital Signs: Last Vital Signs Temp 97.8 F 05/25/23 07:47 Pulse 68 05/25/23 07:47 Resp 20 05/25/23 07:47 BP 99/54 L 05/25/23 07:47 Pulse Ox 95 05/25/23 07:47 O2 Del Method Nasal Cannula 05/25/23 07:47 O2 Flow Rate 4 05/25/23 07:47 FiO2 35 05/24/23 06:21 Oxygen Flow Rate 5 05/24/23 04:39 BMI result Body Mass Index 19.9 Const: General: no acute distress, alert and awake Eyes: Sclerae: sclerae normal EOM: EOMs intact bilaterally Neck: Neck: Yes no lymphadenopathy, Yes trachea midline and Yes supple Chest: Chest palpation & inspection: normal inspection of the chest Resp: Effort & Inspection: normal respiratory effort and no respiratory distress Auscultation: rhonchi and diminished lung sounds Cardio: Rate: regular rate Rhythm: regular rhythm Heart sounds: no gallops, no murmurs and no rubs GI: Palpation (GI): Soft to palpation and Other GI palpation findings present ( Nontender) Auscultation: normal bowel sounds Extrem: General: Yes no pedal edema, No clubbing and No cyanosis Results Laboratory Findings 05/25/23 06:21 05/25/23 06:21 ABG, PT/INR, D-dimer: PT/INR, D-dimer PT 13.9 SEC (11.1-13.3) H 05/24/23 04:51 INR 1.1 (0.9-1.1) 05/24/23 04:51 Abnormal lab findings: Abnormal Labs 05/24/23 05/24/23 05/24/23 04:51 04:53 05:14 WBC 25.6 H RBC 4.12 L D Hgb 9.8 L D Hct 31.3 L D MCV 76.0 L MCH 23.8 L RDW 20.4 H Plt Count 561 H D Immature Gran % (Auto) 3.7 H Neut % (Auto) 87.4 H Lymph % (Auto) 3.6 L Lymph # (Auto) 0.9 L Abs Immat Gran (auto) 0.95 H Absolute Neuts (auto) 22.3 H PT 13.9 H VBG pH 7.51 H VBG HCO3 33 H Sodium 133 L Carbon Dioxide 30 H Anion Gap 10 L BUN 21 H POC Glucose Random Glucose 166 H Fasting Glucose Calcium ALT 50 H Albumin 3.0 L Urine Blood Trace H Ur Leukocyte Esterase Small (1+) H Urine RBC 3-5 H 05/24/23 05/25/23 05/25/23 18:28 00:18 06:21 WBC 19.8 H RBC 3.09 L D Hgb 7.6 L D Hct 24.5 L D MCV 79.3 L MCH 24.6 L RDW 21.5 H Plt Count Immature Gran % (Auto) Neut % (Auto) Lymph % (Auto) Lymph # (Auto) Abs Immat Gran (auto) Absolute Neuts (auto) PT VBG pH VBG HCO3 Sodium 133 L Carbon Dioxide Anion Gap 7 L BUN 18 H POC Glucose 188 H 136 H Random Glucose Fasting Glucose 210 H Calcium 8.1 L D ALT Albumin Urine Blood Ur Leukocyte Esterase Urine RBC 05/25/23 07:04 WBC RBC Hgb Hct MCV MCH RDW Plt Count Immature Gran % (Auto) Neut % (Auto) Lymph % (Auto) Lymph # (Auto) Abs Immat Gran (auto) Absolute Neuts (auto) PT VBG pH VBG HCO3 Sodium Carbon Dioxide Anion Gap BUN POC Glucose 193 H Random Glucose Fasting Glucose Calcium ALT Albumin Urine Blood Ur Leukocyte Esterase Urine RBC Microbiology: Microbiology 05/24/23 04:52 Blood - Venous Blood Culture - Preliminary No growth after 24 hours. 05/24/23 04:51 Blood - Venous Blood Culture - Preliminary No growth after 24 hours. Assessment and Plan (1) Pneumonia: Qualifiers: Pneumonia type: due to unspecified organism Laterality: bilateral Lung location: unspecified part of lung Qualified Code(s): J18.9 - Pneumonia, unspecified organism Status: Acute (2) Aspiration pneumonia: Qualifiers: Aspiration pneumonia type: unspecified Laterality: unspecified laterality Lung location: unspecified part of lung Qualified Code(s): J69.0 - Pneumonitis due to inhalation of food and vomit Status: Acute (3) Acute and chronic respiratory failure with hypoxia: Status: Acute (4) COPD (chronic obstructive pulmonary disease): Qualifiers: COPD type: COPD with acute exacerbation Qualified Code(s): J44.1 - Chronic obstructive pulmonary disease with (acute) exacerbation Status: Acute (5) Bronchiectasis: Qualifiers: Bronchiectasis type: with acute exacerbation Qualified Code(s): J47.1 - Bronchiectasis with (acute) exacerbation Status: Acute Plan continue Meropenem and vancomycin sputum culture MRSA screen MBS continue oxygen to keep pox>90% Procedures Date of Service Date of Service: 05/25/23
[2023-05-25] MEDS: Meropenem 1 GM VIAL IV ×2 (09:56→16:48)
[2023-05-25] MEDS: Doxycycline Hyclate 100 MG in 0.9 % Sodium Chloride 250 ML 166.67 MG IV ×2 (10:24→21:11)
[2023-05-25] MEDS: Heparin Sodium,Porcine Flush 50 UNITS/5 ML SYRINGE IVFLUSH ×3 (10:26→22:54)
[2023-05-25] MEDS: 0.9 % Sodium Chloride Flush 3 ML SYRINGE IVFLUSH ×2 (10:26→16:48)
[2023-05-25 10:56] LABS: Glucose, Whole Blood 166 mg/dL (60-115)
[2023-05-25 11:11] VITALS: BP 105/56; PULSE 72; RESP 20; TEMP 36.9; O2SAT 98
--- NOTE | 2023-05-25 13:26 | MHC.SPEECHCO ---
Pt seen for MBSS. No aspiration or significant penetration observed. Recommending Ground/MechAltered Solids (NDD2) and Thin Liquids. Pt noted to cough after the swallow on several trials, but most likely due to respiratory insufficiency after holding his breath while swallowing. Full report to follow.
--- NOTE | 2023-05-25 15:42 | MHC.CM.PN ---
IMM 05/25/23 MALE 82 DX RESPIRATORY FAILURE. Patient was discharged to [facility] yesterday. He returns with Hypoxic Respiratory failure. He is weak and deconditioned r/t prior hospitalization. He is able to transfer with assist. Per MD rounds, a MBS has been ordered to r/o aspiration PNA. Patient has a HCP on file. [facility] via BLS.
[2023-05-25 16:00] VITALS: BP 112/60; PULSE 67; RESP 18; TEMP 36.3; O2SAT 96
[2023-05-25 16:47] LABS: Glucose, Whole Blood 200 mg/dL (60-115)
[2023-05-25 16:54] LABS: MRSA Nasal PCR NEGATIVE (Negative); SA Nasal PCR NEGATIVE (Negative)
[2023-05-25 19:38] VITALS: BP 124/62; PULSE 71; RESP 20; TEMP 37.1; O2SAT 95
[2023-05-25 20:41] LABS: Glucose, Whole Blood 145 mg/dL (60-115)
[2023-05-25] MEDS: Latanoprost 0.005 % Ophth Sol 2.5 ML DROPS 1 DROP EYE-RIGHT (22:32)
[2023-05-25 23:52] VITALS: BP 121/66; PULSE 66; RESP 18; TEMP 37.1; O2SAT 97
[2023-05-26] MEDS: Meropenem 1 GM VIAL IV ×4 (00:30→23:41)
[2023-05-26] MEDS: 0.9 % Sodium Chloride Flush 3 ML SYRINGE IVFLUSH ×3 (00:30→21:46)
[2023-05-26 04:00] VITALS: BP 106/58; PULSE 67; RESP 20; TEMP 37.1; O2SAT 99
[2023-05-26] MEDS: Omeprazole 20 MG CAPSULE.DR PO (05:37)
[2023-05-26] MEDS: Benzonatate 100 MG CAPSULE 200 MG PO (05:37)
[2023-05-26 07:07] LABS: Hematocrit 26.8 % (42.0-52.0); Hemoglobin 7.9 g/dl (14.0-18.0); Mean Corpuscular HGB Conc 29.5 g/dl (31.0-36.0); Mean Corpuscular Hemoglobin 23.1 pg (27.0-33.0); Mean Corpuscular Volume 78.4 fL (80.0-98.0); Mean Platelet Volume 9.7 fL (9.4-12.4); Platelet Count 415 X10*3/uL (160-400); Red Blood Count 3.42 X10*6/uL (4.60-5.80); Red Cell Distribution Width 21.2 % (11.0-16.0); White Blood Count 19.5 X10*3/uL (4.8-10.8)
[2023-05-26 07:18] LABS: Anion Gap 10 (12-20); Blood Urea Nitrogen 15 mg/dL (9-16); Calcium 7.9 mg/dL (8.4-10.2); Carbon Dioxide 29 mmol/L (22-29); Chloride 99 mmol/L (96-108); Creatinine Clr Calc Pharmacy 83.3; Estimated Glomerular Filt Rate > 60; Glucose Fasting 176 mg/dL (60-99); Potassium 4.3 mmol/L (3.3-5.1); Sodium 134 mmol/L (135-145)
[2023-05-26 08:00] VITALS: BP 107/55; PULSE 69; RESP 20; TEMP 37.1; O2SAT 100
[2023-05-26 08:33] LABS: Glucose, Whole Blood 207 mg/dL (60-115)
[2023-05-26] MEDS: Insulin Lispro 100 UNIT/ML 3 ML VIAL SUBCUT ×3 (09:01→21:45)
[2023-05-26] MEDS: Apixaban 5 MG TABLET PO ×2 (09:02→21:46)
[2023-05-26] MEDS: Pravastatin Sodium 10 MG TABLET PO (09:02)
[2023-05-26] MEDS: Tamsulosin HCL 0.4 MG CAPSULE PO (09:02)
[2023-05-26] MEDS: carvediloL 6.25 MG TABLET PO ×2 (09:02→21:46)
[2023-05-26] MEDS: Heparin Sodium,Porcine Flush 50 UNITS/5 ML SYRINGE IVFLUSH ×2 (09:02→16:21)
[2023-05-26] MEDS: guaiFENesin LA 600 MG TAB.ER.12H PO ×2 (09:02→21:46)
[2023-05-26] MEDS: methylPREDNISolone Sod Succ 40 MG/ML VIAL IVPUSH ×2 (09:03→21:45)
[2023-05-26] MEDS: Finasteride 5 MG TABLET PO (09:03)
[2023-05-26] MEDS: Doxycycline Hyclate 100 MG in 0.9 % Sodium Chloride 250 ML 166.67 MG IV ×2 (09:54→21:47)
[2023-05-26] MEDS: guaiFENesin DM 100/10/5 ML 5 ML SYRUP PO (09:54)
--- NOTE | 2023-05-26 09:57 | P.PNIM_ITS ---
Subjective Subjective Date of Service: 05/26/23 Interval History: coughing Physical Exam 2 Vital Signs: Vital Signs: Last Vital Signs Temp 98.7 F 05/26/23 08:00 Pulse 69 05/26/23 08:00 Resp 20 05/26/23 08:00 BP 107/55 L 05/26/23 08:00 Pulse Ox 100 05/26/23 08:00 O2 Del Method Nasal Cannula 05/26/23 08:00 O2 Flow Rate 4 05/26/23 08:00 FiO2 35 05/24/23 06:21 Oxygen Flow Rate 5 05/24/23 04:39 BMI result Body Mass Index 19.9 Const: General: no acute distress, alert and awake Eyes: Sclerae: sclerae normal EOM: EOMs intact bilaterally Neck: Neck: Yes no lymphadenopathy, Yes trachea midline and Yes supple Chest: Chest palpation & inspection: normal inspection of the chest Resp: Effort & Inspection: normal respiratory effort and no respiratory distress Auscultation: rhonchi and diminished lung sounds Cardio: Rate: regular rate Rhythm: regular rhythm Heart sounds: no gallops, no murmurs and no rubs GI: Palpation (GI): Soft to palpation and Other GI palpation findings present ( Nontender) Auscultation: normal bowel sounds Extrem: General: Yes no pedal edema, No clubbing and No cyanosis Objective Data Active Medications Apixaban (Apixaban 5 Mg Tablet) 5 mg PO BID [facility] Last Admin: 05/26/23 09:02 Dose: 5 mg Documented By: JERAMIE Benzonatate (Benzonatate 100 Mg Capsule) 200 mg PO TID PRN PRN Reason: Cough Last Admin: 05/26/23 05:37 Dose: 200 mg Documented By: JAYLON Bisacodyl (Bisacodyl 10 Mg Supp.Rect) 10 mg [place] DAILY PRN PRN Reason: Constipation Carvedilol (Carvedilol 6.25 Mg Tablet) 6.25 mg PO BID [facility]; Protocol Last Admin: 05/26/23 09:02 Dose: 6.25 mg Documented By: JERAMIE Dextrose (Dextrose 50 % 25 Gm/50 Ml Syringe) 25 gm IVPUSH Q15M PRN; Protocol PRN Reason: per Hypoglycemia Standing Ord. Finasteride (Finasteride 5 Mg Tablet) 5 mg PO DAILY [facility] Last Admin: 05/26/23 09:03 Dose: 5 mg Documented By: JERAMIE Glucose (Glucose Gel 15 Gm Gel..Gram.) 15 gm PO Q15M PRN; Protocol PRN Reason: per Hypoglycemia Standing Ord. Guaifenesin (Guaifenesin La 600 Mg Tab.Er.12h) 600 mg PO BID [facility] Last Admin: 05/26/23 09:02 Dose: 600 mg Documented By: JERAMIE Guaifenesin/Dextromethorphan (Guaifenesin Dm 100/10/5 Ml 5 Ml Syrup) 5 ml PO Q4H PRN PRN Reason: Cough Last Admin: 05/26/23 09:54 Dose: 5 ml Documented By: JERAMIE Heparin Sodium (Porcine) (Heparin Sodium,Porcine Flush 50 Units/5 Ml Syringe) 50 units IVFLUSH TID [facility] Last Admin: 05/26/23 09:02 Dose: 50 units Documented By: JERAMIE Doxycycline Hyclate 100 mg/ (Sodium Chloride) 250 mls @ 166.67 mls/hr IV Q12H [facility] Last Admin: 05/26/23 09:54 Dose: 166.67 mls/hr Documented By: JERAMIE Insulin Human Lispro (Insulin Lispro 100 Unit/Ml 3 Ml Vial) 0 unit SUBCUT QIDACHS [facility]; Protocol Last Admin: 05/26/23 09:01 Dose: 4 unit Documented By: JERAMIE Latanoprost (Latanoprost 0.005 % Ophth Thalia 2.5 Ml Drops) 1 drop EYE-RIGHT BEDTIME [facility] Last Admin: 05/25/23 22:32 Dose: 1 drop Documented By: ADONIS Meropenem (Meropenem 1 Gm Vial) 1 gm IV Q8H [facility] Last Admin: 05/26/23 09:03 Dose: 1 gm Documented By: JERAMIE Methylprednisolone Sodium Succinate (Methylprednisolone Sod Succ 40 Mg/Ml Vial) 40 mg IVPUSH Q12H [facility] Last Admin: 05/26/23 09:03 Dose: 40 mg Documented By: JERAMIE Omeprazole (Omeprazole 20 Mg Capsule.) 20 mg PO DAILY@0630 [facility] Last Admin: 05/26/23 05:37 Dose: 20 mg Documented By: JAYLON Pravastatin Sodium (Pravastatin Sodium 10 Mg Tablet) 10 mg PO DAILY [facility] Last Admin: 05/26/23 09:02 Dose: 10 mg Documented By: JERAMIE Sodium Chloride (0.9 % Sodium Chloride Flush 3 Ml Syringe) 3 ml IVFLUSH QSHIFT [facility] Last Admin: 05/26/23 00:30 Dose: 3 ml Documented By: JAYLON Tamsulosin HCl (Tamsulosin Hcl 0.4 Mg Capsule) 0.4 mg PO DAILY [facility] Last Admin: 05/26/23 09:02 Dose: 0.4 mg Documented By: JERAMIE Labs 05/26/23 06:43 05/26/23 06:43 Labs: Laboratory Results - last 24 hr 05/25/23 05/25/23 05/25/23 10:50 14:15 16:35 MCV MCH MCHC RDW Plt Count MPV Absolute Nucleated RBC Nucleated RBC % (auto) Anion Gap Estim Creat Clear Calc Estimated GFR POC Glucose 166 H 200 H Fasting Glucose Calcium Nasal Screen MRSA (PCR) NEGATIVE Nasal S. aureus Screen NEGATIVE Nasal MRSA/S.aureus Interp SEE NOTE 05/25/23 05/26/23 05/26/23 20:26 06:43 08:29 MCV 78.4 L MCH 23.1 L MCHC 29.5 L RDW 21.2 H Plt Count 415 H MPV 9.7 Absolute Nucleated RBC 0.000 Nucleated RBC % (auto) 0.0 Anion Gap 10 L Estim Creat Clear Calc 83.3 Estimated GFR > 60 POC Glucose 145 H 207 H Fasting Glucose 176 H Calcium 7.9 L Nasal Screen MRSA (PCR) Nasal S. aureus Screen Nasal MRSA/S.aureus Interp Microbiology Microbiology Results: Microbiology 05/24/23 04:52 Blood Culture - Preliminary Blood - Venous No growth after 48 hours. 05/24/23 04:51 Blood Culture - Preliminary Blood - Venous No growth after 48 hours. 05/24/23 Unknown Urine Culture - Preliminary Urine clean catch - Urine swanson top Culture in progress. 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
[2023-05-26 11:59] LABS: Glucose, Whole Blood 115 mg/dL (60-115)
[2023-05-26 15:35] VITALS: BP 115/56; PULSE 70; RESP 20; TEMP 37.2; O2SAT 95
[2023-05-26 16:28] LABS: Glucose, Whole Blood 213 mg/dL (60-115)
[2023-05-26 19:17] VITALS: BP 147/76; PULSE 75; RESP 20; TEMP 37; O2SAT 97
[2023-05-26 20:27] LABS: Glucose, Whole Blood 171 mg/dL (60-115)
[2023-05-26] MEDS: Albuterol/Iprat 2.5/0.5MG 3 ML AMPUL.NEB INHALE (21:04)
[2023-05-26 21:07] VITALS: PULSE 71; RESP 20; O2SAT 91
[2023-05-27] VITALS (8 sets, daily range): BP systolic 105–130; BP diastolic 58–72; PULSE 68–80; RESP 16–20; TEMP 36.4–37.4; O2SAT 95–98
[2023-05-27] MEDS: Heparin Sodium,Porcine Flush 50 UNITS/5 ML SYRINGE IVFLUSH ×4 (00:34→22:01)
[2023-05-27] MEDS: Omeprazole 20 MG CAPSULE.DR PO (06:20)
[2023-05-27 08:08] LABS: Glucose, Whole Blood 142 mg/dL (60-115)
[2023-05-27] MEDS: Tamsulosin HCL 0.4 MG CAPSULE PO (08:29)
[2023-05-27] MEDS: guaiFENesin LA 600 MG TAB.ER.12H PO ×2 (08:29→22:00)
[2023-05-27] MEDS: Pravastatin Sodium 10 MG TABLET PO (08:30)
[2023-05-27] MEDS: carvediloL 6.25 MG TABLET PO ×2 (08:30→22:00)
[2023-05-27] MEDS: Apixaban 5 MG TABLET PO ×2 (08:30→22:00)
[2023-05-27] MEDS: Furosemide 20 MG TABLET PO (08:30)
[2023-05-27] MEDS: Finasteride 5 MG TABLET PO (08:31)
[2023-05-27] MEDS: 0.9 % Sodium Chloride Flush 3 ML SYRINGE IVFLUSH ×3 (08:32→23:37)
[2023-05-27] MEDS: Meropenem 1 GM VIAL IV ×3 (08:38→23:36)
[2023-05-27] MEDS: methylPREDNISolone Sod Succ 40 MG/ML VIAL IVPUSH ×2 (09:37→22:07)
[2023-05-27] MEDS: Doxycycline Hyclate 100 MG in 0.9 % Sodium Chloride 250 ML 166.67 MG IV ×2 (09:41→22:01)
--- NOTE | 2023-05-27 10:20 | HO.PM.IMPN ---
Subjective Subjective Date of Service: 05/27/23 Interval History: cough Physical Exam Vital Signs: Vital Signs: Last Vital Signs Temp 98.4 F 05/27/23 08:00 Pulse 73 05/27/23 08:00 Resp 16 05/27/23 08:00 BP 123/58 L 05/27/23 08:00 Pulse Ox 95 05/27/23 08:00 O2 Del Method Nasal Cannula 05/27/23 08:00 O2 Flow Rate 2 05/27/23 08:00 FiO2 35 05/24/23 06:21 Oxygen Flow Rate 5 05/24/23 04:39 BMI result Body Mass Index 19.9 Const: General: no acute distress, alert and awake Eyes: Sclerae: sclerae normal EOM: EOMs intact bilaterally Neck: Neck: Yes no lymphadenopathy, Yes trachea midline and Yes supple Chest: Chest palpation & inspection: normal inspection of the chest Resp: Effort & Inspection: normal respiratory effort and no respiratory distress Auscultation: rhonchi and diminished lung sounds Cardio: Rate: regular rate Rhythm: regular rhythm Heart sounds: no gallops, no murmurs and no rubs GI: Palpation (GI): Soft to palpation and Other GI palpation findings present ( Nontender) Auscultation: normal bowel sounds Extrem: General: Yes no pedal edema, No clubbing and No cyanosis Objective Data Active Medications Albuterol/Ipratropium (Albuterol/Iprat 2.5/0.5mg 3 Ml Ampul.Neb) 3 ml INHALE Q4H PRN PRN Reason: Wheezing Last Admin: 05/26/23 21:04 Dose: 3 ml Documented By: NINA Apixaban (Apixaban 5 Mg Tablet) 5 mg PO BID [facility] Last Admin: 05/27/23 08:30 Dose: 5 mg Documented By: MICHELLE Benzonatate (Benzonatate 100 Mg Capsule) 200 mg PO TID PRN PRN Reason: Cough Last Admin: 05/26/23 05:37 Dose: 200 mg Documented By: JAYLON Bisacodyl (Bisacodyl 10 Mg Supp.Rect) 10 mg [place] DAILY PRN PRN Reason: Constipation Carvedilol (Carvedilol 6.25 Mg Tablet) 6.25 mg PO BID [facility]; Protocol Last Admin: 05/27/23 08:30 Dose: 6.25 mg Documented By: MICHELLE Dextrose (Dextrose 50 % 25 Gm/50 Ml Syringe) 25 gm IVPUSH Q15M PRN; Protocol PRN Reason: per Hypoglycemia Standing Ord. Finasteride (Finasteride 5 Mg Tablet) 5 mg PO DAILY [facility] Last Admin: 05/27/23 08:31 Dose: 5 mg Documented By: MICHELLE Furosemide (Furosemide 20 Mg Tablet) 20 mg PO DAILY [facility]; Protocol Last Admin: 05/27/23 08:30 Dose: 20 mg Documented By: MICHELLE Glucose (Glucose Gel 15 Gm Gel..Gram.) 15 gm PO Q15M PRN; Protocol PRN Reason: per Hypoglycemia Standing Ord. Guaifenesin (Guaifenesin La 600 Mg Tab.Er.12h) 600 mg PO BID [facility] Last Admin: 05/27/23 08:29 Dose: 600 mg Documented By: MICHELLE Guaifenesin/Dextromethorphan (Guaifenesin Dm 100/10/5 Ml 5 Ml Syrup) 5 ml PO Q4H PRN PRN Reason: Cough Last Admin: 05/26/23 09:54 Dose: 5 ml Documented By: JERAMIE Heparin Sodium (Porcine) (Heparin Sodium,Porcine Flush 50 Units/5 Ml Syringe) 50 units IVFLUSH TID [facility] Last Admin: 05/27/23 08:31 Dose: 50 units Documented By: MICHELLE Doxycycline Hyclate 100 mg/ (Sodium Chloride) 250 mls @ 166.67 mls/hr IV Q12H [facility] Last Admin: 05/27/23 09:41 Dose: 166.67 mls/hr Documented By: MICHELLE Insulin Human Lispro (Insulin Lispro 100 Unit/Ml 3 Ml Vial) 0 unit SUBCUT QIDACHS [facility]; Protocol Last Admin: 05/27/23 08:20 Dose: Not Given Documented By: MICHELLE Non-Admin Reason: No Insulin Coverage Latanoprost (Latanoprost 0.005 % Ophth Thalia 2.5 Ml Drops) 1 drop EYE-RIGHT BEDTIME [facility] Last Admin: 05/26/23 22:52 Dose: Not Given Documented By: PHILIP Non-Admin Reason: Med Not Available Meropenem (Meropenem 1 Gm Vial) 1 gm IV Q8H [facility] Last Admin: 05/27/23 08:38 Dose: 1 gm Documented By: MICHELLE Methylprednisolone Sodium Succinate (Methylprednisolone Sod Succ 40 Mg/Ml Vial) 40 mg IVPUSH Q12H [facility] Last Admin: 05/27/23 09:37 Dose: 40 mg Documented By: MICHELLE Omeprazole (Omeprazole 20 Mg Capsule.Dr) 20 mg PO DAILY@0630 [facility] Last Admin: 05/27/23 06:20 Dose: 20 mg Documented By: PHILIP Pravastatin Sodium (Pravastatin Sodium 10 Mg Tablet) 10 mg PO DAILY [facility] Last Admin: 05/27/23 08:30 Dose: 10 mg Documented By: MICHELLE Sodium Chloride (0.9 % Sodium Chloride Flush 3 Ml Syringe) 3 ml IVFLUSH QSHIFT [facility] Last Admin: 05/27/23 08:32 Dose: 3 ml Documented By: MICHELLE Tamsulosin HCl (Tamsulosin Hcl 0.4 Mg Capsule) 0.4 mg PO DAILY [facility] Last Admin: 05/27/23 08:29 Dose: 0.4 mg Documented By: MICHELLE Labs 05/26/23 06:43 05/26/23 06:43 Labs: Laboratory Results - last 24 hr 05/26/23 05/26/23 05/26/23 11:56 16:25 20:23 POC Glucose 115 213 H 171 H 05/27/23 08:04 POC Glucose 142 H Microbiology Microbiology Results: Microbiology 05/24/23 Unknown Urine Culture - Final Urine clean catch - Urine swanson top Trichosporon asaethani 05/24/23 04:52 Blood Culture - Preliminary Blood - Venous No growth after 48 hours. 05/24/23 04:51 Blood Culture - Preliminary Blood - Venous No growth after 48 hours. 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
[2023-05-27 11:52] LABS: Glucose, Whole Blood 176 mg/dL (60-115)
[2023-05-27] MEDS: Insulin Lispro 100 UNIT/ML 3 ML VIAL SUBCUT ×3 (12:15→22:01)
[2023-05-27] MEDS: guaiFENesin DM 100/10/5 ML 5 ML SYRUP PO ×2 (15:03→22:08)
[2023-05-27] MEDS: Albuterol/Iprat 2.5/0.5MG 3 ML AMPUL.NEB INHALE (15:06)
[2023-05-27 16:41] LABS: Glucose, Whole Blood 191 mg/dL (60-115)
[2023-05-27 21:11] LABS: Glucose, Whole Blood 157 mg/dL (60-115)
[2023-05-27] MEDS: Latanoprost 0.005 % Ophth Sol 2.5 ML DROPS 1 DROP EYE-RIGHT (22:07)
[2023-05-28 03:30] VITALS: BP 118/66; PULSE 68; RESP 20; TEMP 36.8; O2SAT 92
[2023-05-28] MEDS: Albuterol/Iprat 2.5/0.5MG 3 ML AMPUL.NEB INHALE (06:01)
[2023-05-28] MEDS: Omeprazole 20 MG CAPSULE.DR PO (06:01)
[2023-05-28] MEDS: guaiFENesin DM 100/10/5 ML 5 ML SYRUP PO (06:16)
[2023-05-28 07:14] VITALS: BP 104/60; PULSE 78; RESP 20; TEMP 37; O2SAT 86
[2023-05-28 07:17] LABS: Hematocrit 28.9 % (42.0-52.0); Mean Corpuscular HGB Conc 31.1 g/dl (31.0-36.0); Mean Corpuscular Hemoglobin 24.5 pg (27.0-33.0); Mean Corpuscular Volume 78.7 fL (80.0-98.0); Mean Platelet Volume 9.5 fL (9.4-12.4); Platelet Count 375 X10*3/uL (160-400); Red Blood Count 3.67 X10*6/uL (4.60-5.80); Red Cell Distribution Width 23.7 % (11.0-16.0); White Blood Count 25.8 X10*3/uL (4.8-10.8)
[2023-05-28 07:24] LABS: Anion Gap 11 (12-20); Blood Urea Nitrogen 17 mg/dL (9-16); Calcium 7.7 mg/dL (8.4-10.2); Carbon Dioxide 27 mmol/L (22-29); Chloride 98 mmol/L (96-108); Creatinine Clr Calc Pharmacy 84.8; Estimated Glomerular Filt Rate > 60; Glucose Fasting 104 mg/dL (60-99); Potassium 3.7 mmol/L (3.3-5.1); Sodium 132 mmol/L (135-145)
[2023-05-28 07:29] LABS: Glucose, Whole Blood 111 mg/dL (60-115)
--- NOTE | 2023-05-28 08:30 | P.PNIM_ITS ---
Subjective Subjective Date of Service: 05/28/23 Interval History: feeling weak o2 went from 2 to 4L Physical Exam 2 Vital Signs: Vital Signs: Last Vital Signs Temp 98.6 F 05/28/23 07:14 Pulse 78 05/28/23 07:14 Resp 20 05/28/23 07:14 BP 104/60 05/28/23 07:14 Pulse Ox 86 L 05/28/23 07:14 O2 Del Method Nasal Cannula 05/28/23 07:14 O2 Flow Rate 2 05/28/23 07:14 FiO2 35 05/24/23 06:21 Oxygen Flow Rate 5 05/24/23 04:39 BMI result Body Mass Index 19.9 Const: General: no acute distress, alert and awake Eyes: Sclerae: sclerae normal EOM: EOMs intact bilaterally Neck: Neck: Yes no lymphadenopathy, Yes trachea midline and Yes supple Chest: Chest palpation & inspection: normal inspection of the chest Resp: Effort & Inspection: normal respiratory effort and no respiratory distress Auscultation: rhonchi and diminished lung sounds Cardio: Rate: regular rate Rhythm: regular rhythm Heart sounds: no gallops, no murmurs and no rubs GI: Palpation (GI): Soft to palpation and Other GI palpation findings present ( Nontender) Auscultation: normal bowel sounds Extrem: General: Yes no pedal edema, No clubbing and No cyanosis Objective Data Active Medications Albuterol/Ipratropium (Albuterol/Iprat 2.5/0.5mg 3 Ml Ampul.Neb) 3 ml INHALE Q4H PRN PRN Reason: Wheezing Last Admin: 05/28/23 06:01 Dose: 3 ml Documented By: ELMER Apixaban (Apixaban 5 Mg Tablet) 5 mg PO BID [facility] Last Admin: 05/27/23 22:00 Dose: 5 mg Documented By: ELMER Benzonatate (Benzonatate 100 Mg Capsule) 200 mg PO TID PRN PRN Reason: Cough Last Admin: 05/26/23 05:37 Dose: 200 mg Documented By: JAYLON Bisacodyl (Bisacodyl 10 Mg Supp.Rect) 10 mg [place] DAILY PRN PRN Reason: Constipation Carvedilol (Carvedilol 6.25 Mg Tablet) 6.25 mg PO BID [facility]; Protocol Last Admin: 05/27/23 22:00 Dose: 6.25 mg Documented By: ELMER Dextrose (Dextrose 50 % 25 Gm/50 Ml Syringe) 25 gm IVPUSH Q15M PRN; Protocol PRN Reason: per Hypoglycemia Standing Ord. Finasteride (Finasteride 5 Mg Tablet) 5 mg PO DAILY [facility] Last Admin: 05/27/23 08:31 Dose: 5 mg Documented By: MICHELLE Furosemide (Furosemide 20 Mg Tablet) 20 mg PO DAILY [facility]; Protocol Last Admin: 05/27/23 08:30 Dose: 20 mg Documented By: MICHELLE Glucose (Glucose Gel 15 Gm Gel..Gram.) 15 gm PO Q15M PRN; Protocol PRN Reason: per Hypoglycemia Standing Ord. Guaifenesin (Guaifenesin La 600 Mg Tab.Er.12h) 600 mg PO BID [facility] Last Admin: 05/27/23 22:00 Dose: 600 mg Documented By: ELMER Guaifenesin/Dextromethorphan (Guaifenesin Dm 100/10/5 Ml 5 Ml Syrup) 5 ml PO Q4H PRN PRN Reason: Cough Last Admin: 05/28/23 06:16 Dose: 5 ml Documented By: ELMER Heparin Sodium (Porcine) (Heparin Sodium,Porcine Flush 50 Units/5 Ml Syringe) 50 units IVFLUSH TID [facility] Last Admin: 05/27/23 22:01 Dose: 50 units Documented By: ELMER Doxycycline Hyclate 100 mg/ (Sodium Chloride) 250 mls @ 166.67 mls/hr IV Q12H [facility] Last Infusion: 05/27/23 23:37 Dose: Infused Documented By: ELMER Insulin Human Lispro (Insulin Lispro 100 Unit/Ml 3 Ml Vial) 0 unit SUBCUT QIDACHS [facility]; Protocol Last Admin: 05/27/23 22:01 Dose: 2 unit Documented By: ELMER Latanoprost (Latanoprost 0.005 % Ophth Thalia 2.5 Ml Drops) 1 drop EYE-RIGHT BEDTIME [facility] Last Admin: 05/27/23 22:07 Dose: 1 drop Documented By: ELMER Meropenem (Meropenem 1 Gm Vial) 1 gm IV Q8H [facility] Last Admin: 05/27/23 23:36 Dose: 1 gm Documented By: ELMER Methylprednisolone Sodium Succinate (Methylprednisolone Sod Succ 40 Mg/Ml Vial) 40 mg IVPUSH Q12H [facility] Last Admin: 05/27/23 22:07 Dose: 40 mg Documented By: ELMER Omeprazole (Omeprazole 20 Mg Capsule.) 20 mg PO DAILY@0630 [facility] Last Admin: 05/28/23 06:01 Dose: 20 mg Documented By: ELMER Pravastatin Sodium (Pravastatin Sodium 10 Mg Tablet) 10 mg PO DAILY [facility] Last Admin: 05/27/23 08:30 Dose: 10 mg Documented By: MICHELLE Sodium Chloride (0.9 % Sodium Chloride Flush 3 Ml Syringe) 3 ml IVFLUSH QSHIFT [facility] Last Admin: 05/27/23 23:37 Dose: 3 ml Documented By: ELMER Tamsulosin HCl (Tamsulosin Hcl 0.4 Mg Capsule) 0.4 mg PO DAILY [facility] Last Admin: 05/27/23 08:29 Dose: 0.4 mg Documented By: MICHELLE Labs 05/28/23 06:58 05/28/23 06:58 Labs: Laboratory Results - last 24 hr 05/27/23 05/27/23 05/27/23 11:48 16:38 20:41 MCV MCH MCHC RDW Plt Count MPV Absolute Nucleated RBC Nucleated RBC % (auto) Anion Gap Estim Creat Clear Calc Estimated GFR POC Glucose 176 H 191 H 157 H Fasting Glucose Calcium 05/28/23 05/28/23 06:58 07:16 MCV 78.7 L MCH 24.5 L MCHC 31.1 RDW 23.7 H Plt Count 375 MPV 9.5 Absolute Nucleated RBC 0.000 Nucleated RBC % (auto) 0.0 Anion Gap 11 L Estim Creat Clear Calc 84.8 Estimated GFR > 60 POC Glucose 111 Fasting Glucose 104 H Calcium 7.7 L Microbiology Microbiology Results: Microbiology 05/24/23 Unknown Urine Culture - Final Urine clean catch - Urine swanson top Trichosporalvin krishna 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, bronchiectases, ESBL pneumonia, JESSA, HFrEF, nonischemic cardiomyopathy, paroxysmal AFib on Eliquis, HTN, HLD, [id number] diabetes type 2, GERD, BPH, hx nephrolithiasis, and lumbar degenerative disc disease presented to the ED with?SOB and hypoxia sepsis and acute on chronic hypoxic respiratory failure due to suspected aspiration pneumonia in patient with endstage copd/bronchiectasis, JESSA continue meropenem (esbl ecoli), doxy for mrsa coverage supervisor endless track vehicle appreciated, s/p MBBS, upgraded to NDD2 solids, thin liquids initially weaned down to 2L, now hypoxic 86%, requiring 4L to maintain low 90s, ?recurrent aspiration pneumonitis, check repeat cxr pulm appreciated chronic systolic chf lasix 20mg daily for maintenance dm insulin pafib coreg, eliquis dvt prophylaxis - eliquis full code reason for continued hospitalization:weaning o2 Quality Stroke Does the patient have a stroke diagnosis?: No VTE Prior VTE?: No VTE Risk Level:: Medical - moderate - high VTE Device Contraindication: Treatment Not Indicated VTE Drug Contraindication: Treatment Not Indicated
[2023-05-28] MEDS: guaiFENesin LA 600 MG TAB.ER.12H PO ×2 (09:29→21:54)
[2023-05-28] MEDS: Finasteride 5 MG TABLET PO (09:29)
[2023-05-28] MEDS: carvediloL 6.25 MG TABLET PO ×2 (09:29→21:54)
[2023-05-28] MEDS: Tamsulosin HCL 0.4 MG CAPSULE PO (09:29)
[2023-05-28] MEDS: Furosemide 20 MG TABLET PO (09:30)
[2023-05-28] MEDS: 0.9 % Sodium Chloride Flush 3 ML SYRINGE IVFLUSH ×2 (09:30→18:41)
[2023-05-28] MEDS: Meropenem 1 GM VIAL IV ×2 (09:30→18:41)
[2023-05-28] MEDS: Pravastatin Sodium 10 MG TABLET PO (09:30)
[2023-05-28] MEDS: Apixaban 5 MG TABLET PO ×2 (09:30→21:54)
[2023-05-28] MEDS: Doxycycline Hyclate 100 MG in 0.9 % Sodium Chloride 250 ML 166.67 MG IV ×2 (09:31→21:54)
[2023-05-28] MEDS: methylPREDNISolone Sod Succ 40 MG/ML VIAL IVPUSH ×2 (09:31→21:54)
[2023-05-28] MEDS: Heparin Sodium,Porcine Flush 50 UNITS/5 ML SYRINGE IVFLUSH ×2 (09:31→21:55)
--- NOTE | 2023-05-28 10:44 | MHC.SL.IMP ---
Date of Plan of Treatment: 05/25/23 Onset of Symptoms/Illness: 05/25/23 Date Treatment Started: 05/25/23 Admitting Diagnosis: (1) Pneumonia Primary Speech & Language Diagnosis: R13.10 Dysphagia Secondary Speech & Language Diagnosis: Reason for Today's Visit: [id number] Modified Barium Swallow Study Pre-evaluation Dietary Consistencies: Pureed (NDD1) Pre-evaluation Liquid Consistency: [place] Thick Pre-evaluation Medication Administration: Crushed with Puree Medical History: Paroxysmal atrial fibrillation Congestive heart failure Bronchiectasis Acute and chronic respiratory failure BPH loc w urin obs/LUTS Urinary retention History of COVID-19 Chronic anticoagulation History of pneumothorax Diabetes Supplemental oxygen dependent COPD (chronic obstructive pulmonary disease) Kidney stone on left side Hearing loss NICM (nonischemic cardiomyopathy) JESSA (mycobacterium avium-intracellulare) Bronchiectasis Glaucoma Pure hypercholesterolemia GERD (gastroesophageal reflux disease) History of MAC infection Essential hypertension Oral Motor Exam Facial Symmetry: Normal for Patient Facial Movement: Controlled Mouth Occlusion: Normal Oral-Facial Teeth Characteristics: Partially Missing Oral-Facial Teeth Miscellaneous Observation: Oral-Facial Lip Pucker Description: Reduced ROM Oral-Facial Smile (Lips) Description: Reduced ROM Tongue Size: Normal Tongue Frenum Length: Normal Tongue Excursion Description: Normal Tongue Range of Movement Description: Normal Tongue Speed of Movement Description: Normal Tongue Strength of Movement (against opposing pressure): Reduced Tongue Movement Characteristics: Normal/Absent Tongue Movement Miscellaneous Observation: Oral Expression Ability: No Impairment Is patient able to manage secretions?: Yes Is patient able to produce volitional cough?: Yes Food and Liquid Trials: Oral Impairment: Lip Closure: 0=No labial escape Oral Impairment: Tongue Control During Bolus Hold: 0=Cohesive bolus between tongue to palatal seal Oral Impairment: Bolus Preparation/Mastication: 1=Slow prolonged chewing/mashing with complete re-collection Oral Impairment: Bolus Transport/Lingual Motion: 0=Brisk tongue motion Oral Impairment: Oral Residue: 2=Residue collection on oral structures Oral Impairment:Initiation of Pharyngeal Swallow: Pharyngeal Impairment: Soft Palate Elevation: 0=No bolus between soft palate (SP)/pharyngeal wall (PW) Pharyngeal Impairment: Laryngeal Elevation: 0=Complete superior movement of thyroid cartilage (see description) Pharyngeal Impairment: Anterior Hyoid Excursion: 0=Complete anterior movement Pharyngeal Impairment: Epiglottic Movement: 0=Complete inversion Pharyngeal Impairment: Laryngeal Vestibular Closure:: 1=Incomplete: narrow column air/contrast in laryngeal vestibule Pharyngeal Impairment: Pharyngeal Stripping Wave: 0=Present: complete Pharyngeal Impairment: Pharyngeal Contraction: Did not test Pharyngeal Impairment: Pharyngoesophageal Segment Openin=Partial distention/partial duration: partial obstruction of flow Pharyngeal Impairment: Tongue Base (TB) Retraction: 1=Trace column of contrast/air between TB and posterior PW Pharyngeal Impairment: Pharyngeal Residue: 1=Trace residue within or on pharyngeal structures Pharyngeal Impairment: Esophageal Clearance Upright Position: Did not test Impressions and Recommendations Clinical Observations: [facility] ID: [id number] [facility] Results: Lip closure for intraoral bolus containment resulted in no labial escape. Tongue control during bolus hold maintained a cohesive bolus held between tongue to palate seal. Bolus preparation and mastication resulted in slow, prolonged chewing/mashing but with complete re-collection. Bolus transport/lingual motion was with brisk tongue motion. Oral residue was a collection on oral structures. Initiation of the pharyngeal swallow occurred as the bolus head reached the posterior angle of the mandibular ramus. Soft palate elevation resulted in no bolus between the soft palate and the pharyngeal wall. Laryngeal elevation demonstrated complete superior movement of the thyroid cartilage with complete approximation of the arytenoids to the epiglottic petiole. Anterior hyoid excursion demonstrated complete anterior movement. Epiglottic movement resulted in complete inversion. Laryngeal vestibular closure was incomplete, with a narrow column of air/contrast noted within the laryngeal vestibule at the height of the swallow. Pharyngeal stripping wave was present and complete. Pharyngeal contraction could not be determined due to logistical reasons not related to physiologic impairment. Pharyngoesophageal segment opening demonstrated partial distension/partial duration, with partial obstruction of bolus flow. Tongue base retraction allowed a trace column of contrast or air between the retracted tongue base and the posterior pharyngeal wall. Pharyngeal residue was a trace within or on pharyngeal structures. Esophageal clearance in the upright position could not be assessed due to logistical reasons not related to physiologic impairment. Oral Impairment Score: 3 Pharyngeal Impairment Score: 2 (absence of score, component 13) Esophageal Impairment Score: --- (absence of score, component 17) Laryngeal Penetration and Aspiration: Neither penetration nor aspiration was observed in today's study with Cookie, Pudding-thick, Thin. SUMMARY: Mr. Herman was repositioned upright in a stretcher during the study. He was provided Thin Liquids, Puree Solids and Ground/Mech Altered Solids with barium contrast. He was able to self-administered solids and liquids independently. No significant areas of impairment were identified during the study. He was noted to cough sporadically after some of his trials, however no penetration or aspiration was captured during the study. His intermittent cough is likely a result of him holding his breath during the swallow Liquid Intake Recommendation: Thin Liquid Intake Strategies: Small Sips No Straws Dietary Recommendations: Grnd/Mech Altered (NDD2) Medication Administration: Whole with Puree Please contact the pharmacy regarding appropriate crushable or liquid drug formulations that are available whenever modified delivery is recommended. Compensatory Strategies Recommended: Sitting Upright (90 deg) No Straw Liquids from Cup Small Bites and Sips Alternate Liquids/Solids Supervision during eating and or drinking: Intermittent Supervision Recommended Treatments: Compens. Strategy Educat. Recommendation for Speech Therapy: Inpatient Speech Therapy Text Comment: Recommend UPGRADE to GROUND/MECH ALTERED SOLIDS (NDD2) and THIN LIQUIDS. MEDS WHOLE with PUREE SOLIDS. Ensure aspiration precautions including upright positioning, adequate mentation to initiate meals, small bites/sips, and monitoring for s/s of aspiration. MEDICAL INVESTIGATOR will continue to follow during his inpatient stay. Frequency/Duration: Daily Date Range for Service Requested: Timeline to reassess: PRN Turnstile Collector Clinician/Clinical Fellow: No Supervisory Statement: N/A Speech Language Pathologist: Jatin Arroyo M.A., [facility]-MEDICAL INVESTIGATOR
[2023-05-28 11:32] VITALS: BP 88/42; PULSE 77; RESP 20; TEMP 37; O2SAT 99
[2023-05-28 11:33] LABS: Glucose, Whole Blood 193 mg/dL (60-115)
--- NOTE | 2023-05-28 11:38 | MHC.CM.PN ---
Per MD rounds, Patient may discharge tomorrow. A clinical update has been sent to Gianluca Mack.TONEY Mack for STR via BLS.
--- NOTE | 2023-05-28 11:46 | MHC.SL.SWA ---
Speech Pathologist Impression: Risk of aspiration Risk of Aspiration Due to: Lethargy Medically Fragile History of Pneumonia Poor PO Intake Weak Cough Weak Voice Dysphasia Diet Status: No changes Liquid Consistency and Strategies for Safe Swallow: Liquid Intake Recommendation: Thin Liquid Intake Strategies: Small Sips No Straws Solid Food Consistency: Dietary Recommendations: Grnd/Mech Altered (NDD2) Additional Modifications to Solid Foods: Ensure aspiration precautions including upright positioning, adequate mentation to initiate meals, small bites/sips, and monitoring for s/s of aspiration. FIELD SEISMOLOGIST will continue to follow during his inpatient stay. Oral Medication Intake: Whole with Puree Please contact the pharmacy regarding appropriate crushable or liquid drug formulations that are available whenever modified delivery is recommended. Compensatory Strategies and Precautions to be Taken for Safe Swallow: Sitting Upright (90 deg) No Straw Liquids from Cup Small Bites and Sips Alternate Liquids/Solids Supervision While Eating and Drinking for Safe Swallow: Intermittent Supervision Foods to Avoid: Large pieces of hard to chew solids. Swallowing Recommended Treatments: Compens. Strategy Educat. Recommendation for Speech: Inpatient Speech Therapy Frequency/Duration: Daily M-F Date Range for Service Req: Timeline to reassess: PRN Automatic Bandsaw Tender Clinican/Clinical Fellow: No Supervisory Statement: I have reviewed and agree with the student/clinical fellow's documentation: N/A Speech Language Pathologist: Ирина Wilkes M.A., CCC-FIELD SEISMOLOGIST
[2023-05-28] MEDS: Insulin Lispro 100 UNIT/ML 3 ML VIAL SUBCUT ×2 (14:08→21:55)
--- NOTE | 2023-05-28 14:38 | P.PNPL_ITS ---
Subjective Subjective Date of Service: 05/28/23 Interval history: Respiratory status at baseline. Has significant anxiety/hyperventilation component. Remains hyperoxygenated. Objective Data Labs 05/28/23 06:58 05/28/23 06:58 Labs: Laboratory Results - last 24 hr 05/27/23 05/27/23 05/28/23 16:38 20:41 06:58 WBC 25.8 H RBC 3.67 L Hgb 9.0 L Hct 28.9 L MCV 78.7 L MCH 24.5 L MCHC 31.1 RDW 23.7 H Plt Count 375 MPV 9.5 Absolute Nucleated RBC 0.000 Nucleated RBC % (auto) 0.0 Sodium 132 L Potassium 3.7 Chloride 98 Carbon Dioxide 27 Anion Gap 11 L BUN 17 H Creatinine 0.55 Estim Creat Clear Calc 84.8 Estimated GFR > 60 POC Glucose 191 H 157 H Fasting Glucose 104 H Calcium 7.7 L 05/28/23 05/28/23 07:16 11:29 WBC RBC Hgb Hct MCV MCH MCHC RDW Plt Count MPV Absolute Nucleated RBC Nucleated RBC % (auto) Sodium Potassium Chloride Carbon Dioxide Anion Gap BUN Creatinine Estim Creat Clear Calc Estimated GFR POC Glucose 111 193 H Fasting Glucose Calcium Microbiology Microbiology Results: Microbiology 05/24/23 Unknown Urine clean catch - Urine swanson top Urine Culture - Final Trichosporon asahii 05/24/23 04:52 Blood - Venous Blood Culture - Preliminary No growth after 48 hours. 05/24/23 04:51 Blood - Venous Blood Culture - Preliminary No growth after 48 hours. Physical Exam 2 Vital Signs: Vital Signs: Last Vital Signs Temp 98.6 F 05/28/23 11:32 Pulse 77 05/28/23 11:32 Resp 20 05/28/23 11:32 BP 88/42 L 05/28/23 11:32 Pulse Ox 99 05/28/23 11:32 O2 Del Method Nasal Cannula 05/28/23 11:32 O2 Flow Rate 4 05/28/23 11:32 FiO2 35 05/24/23 06:21 Oxygen Flow Rate 5 05/24/23 04:39 BMI result Body Mass Index 19.9 Const: General: no acute distress, alert and awake Eyes: Sclerae: sclerae normal EOM: EOMs intact bilaterally Neck: Neck: Yes no lymphadenopathy, Yes trachea midline and Yes supple Resp: Effort & Inspection: normal respiratory effort and no respiratory distress Auscultation: clear to auscultation bilaterally Cardio: Rate: regular rate Rhythm: regular rhythm Heart sounds: no gallops, no murmurs and no rubs GI: Palpation (GI): Soft to palpation and Other GI palpation findings present ( Nontender) Auscultation: normal bowel sounds Extrem: General: Yes no pedal edema, No clubbing and No cyanosis Procedures Date of Service Date of Service: 05/28/23 Assessment and Plan Assessment and plan (1) Bronchiectasis: Status: Acute (2) COPD (chronic obstructive pulmonary disease): Status: Acute Plan Impression: 82-year-old gentleman with underlying advanced COPD, bronchiectasis, chronic hypoxic respiratory failure on 2 L of supplemental oxygen now admitted with influenza A and ESBL E.Coli UTI. Respiratory status at baseline. Recommendations: Continue to titrate supplemental oxygen down to baseline levels, maintain O2 saturation of 88-92%. Continue duo nebs. Sputum culture with ESBL E coli, likely chronic colonization. Time Spent With Patient Time: Total time managing care of this patient today ____ minutes. Progress Note: Quality Stroke Does the patient have a stroke diagnosis?: No
[2023-05-28 15:22] VITALS: BP 99/54; PULSE 78; RESP 20; TEMP 36.6; O2SAT 95
[2023-05-28 16:16] LABS: Glucose, Whole Blood 147 mg/dL (60-115)
--- NOTE | 2023-05-28 17:11 | PC.NURSE ---
Notified by Rosales Velásquez RN that pt midline no longer flushing. R arm washed with chlorarprep x 3 and existing midline catheter rewired with 20G x 8cm non PASV midline catheter with Lot # [id number]. + blood return and flushes with ease. report given to Rosales Velásquez RN. Pt nalini procedure well
[2023-05-28 19:21] VITALS: BP 116/62; PULSE 90; RESP 19; TEMP 36.2; O2SAT 91
[2023-05-28 20:14] LABS: Glucose, Whole Blood 207 mg/dL (60-115)
[2023-05-28] MEDS: Latanoprost 0.005 % Ophth Sol 2.5 ML DROPS 1 DROP EYE-RIGHT (21:56)
[2023-05-28 23:24] VITALS: BP 114/59; PULSE 74; RESP 18; TEMP 36.8; O2SAT 97
[2023-05-29] MEDS: Meropenem 1 GM VIAL IV ×2 (00:56→09:52)
[2023-05-29] MEDS: 0.9 % Sodium Chloride Flush 3 ML SYRINGE IVFLUSH ×2 (00:56→09:54)
[2023-05-29 04:00] VITALS: BP 116/57; PULSE 75; RESP 18; TEMP 37.1; O2SAT 95
[2023-05-29] MEDS: Omeprazole 20 MG CAPSULE.DR PO (05:15)
[2023-05-29 07:07] LABS: Glucose, Whole Blood 209 mg/dL (60-115)
[2023-05-29 07:43] VITALS: BP 120/63; PULSE 63; RESP 18; TEMP 37.1; O2SAT 95
[2023-05-29] MEDS: Doxycycline Hyclate 100 MG in 0.9 % Sodium Chloride 250 ML 166.67 MG IV (09:46)
[2023-05-29] MEDS: Apixaban 5 MG TABLET PO (09:53)
[2023-05-29] MEDS: Heparin Sodium,Porcine Flush 50 UNITS/5 ML SYRINGE IVFLUSH (09:53)
[2023-05-29] MEDS: Finasteride 5 MG TABLET PO (09:53)
[2023-05-29] MEDS: guaiFENesin LA 600 MG TAB.ER.12H PO (09:53)
[2023-05-29] MEDS: Pravastatin Sodium 10 MG TABLET PO (09:53)
[2023-05-29] MEDS: Tamsulosin HCL 0.4 MG CAPSULE PO (09:53)
[2023-05-29] MEDS: Furosemide 20 MG TABLET PO (09:53)
[2023-05-29] MEDS: carvediloL 6.25 MG TABLET PO (09:53)
[2023-05-29] MEDS: Insulin Lispro 100 UNIT/ML 3 ML VIAL SUBCUT (09:53)
--- NOTE | 2023-05-29 10:09 | P.DS_ITS ---
DS: Providers Provider Date of Service: 05/29/23 Date of admission: 05/24/23 09:14 Primary care physician: Unknown Physician Consults: 05/24/23 07:42 Consult to Infectious Diseases Routine Consulting Provider: JULIETA CHOU Reason for consultation: esbl 05/24/23 09:12 Consult to Pulmonology Routine Consulting Provider: [facility] Reason for consultation: worsening hypoxia DS: Diagnosis Discharge Diagnosis (1) Bronchiectasis: Status: Acute (2) COPD (chronic obstructive pulmonary disease): Status: Acute DS: Summary Hospital Course Hospital Course: from initial hpi: 82M PMH significant for?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 patient had been discharged from [facility] day prior to presentation after hospitalization for hyoxia from aspriation penumonia, chf, and esbl ecoli bacteremia. patient had been back to baseline o2, feeling well, discharged to SNF to complete course of meropenem and on steroid taper. at 11pm on night of presentation staff noted incrased SOB and worsening hypoxia - 87% on 4L. EMS was called. in ED was put on high flow, found to have worsening bilateral opacities, leukocytosis. hospital course: Patient was admitted for sepsis and acute on chronic hypoxic respiratory failure due to aspiration pneumonia in a patient with end-stage COPD/bronchiectasis and JESSA. He was continued on meropenem and started on doxycycline for MRSA coverage. He was seen by METALLOGRAPHY TEACHER who recommended modified barium swallow which was done and patient was upgraded to ndd2 solids with thin liquids. During hospitalization patient did have recurrent transient aspiration events which did require occasional higher O2 supplementation, however, has now been weaned down to 2 L and feels comfortable. On discharge will continue with modified diet, continue with meropenem course, steroid taper. For chronic systolic CHF he was continued on Lasix 20 mg maintenance. For diabetes was continued on insulin. For paroxysmal atrial fibrillation was continued on Coreg and Eliquis. Patient will be discharged back to [facility] facility. Time Attestation Discharge Coordination Time (in mins): 35 Quality: Safe Use of Opioids Does Pt have an Active Cancer Diagnosis on the Problem List?: No Quality: Stroke Does the patient have a stroke diagnosis?: No Physical Exam Vital Signs: Vital Signs: Last Vital Signs Temp 98.7 F 05/29/23 07:43 Pulse 63 05/29/23 07:43 Resp 18 05/29/23 07:43 BP 120/63 05/29/23 07:43 Pulse Ox 95 05/29/23 07:43 O2 Del Method Nasal Cannula 05/29/23 07:43 O2 Flow Rate 2 05/29/23 07:43 FiO2 35 05/24/23 06:21 Oxygen Flow Rate 5 05/24/23 04:39 BMI result Body Mass Index 19.9 Const: General: no acute distress, alert and awake Eyes: Sclerae: sclerae normal EOM: EOMs intact bilaterally Neck: Neck: Yes no lymphadenopathy, Yes trachea midline and Yes supple Resp: Effort & Inspection: normal respiratory effort and no respiratory distress Auscultation: clear to auscultation bilaterally Cardio: Rate: regular rate Rhythm: regular rhythm Heart sounds: no gallops, no murmurs and no rubs GI: Palpation (GI): Soft to palpation and Other GI palpation findings present ( Nontender) Auscultation: normal bowel sounds Extrem: General: Yes no pedal edema, No clubbing and No cyanosis DS: Data Data Completed and Pending Completed studies during hospitalization [Text1]: Procedures Insertion of Infusion Device into Left Brachial Vein, Percutaneous Approach (05/25/22) Insertion of Infusion Device into Right Brachial Vein, Percutaneous Approach (05/12/23) Insertion of Infusion Device into Right Cephalic Vein, Percutaneous Approach (12/07/21) Insertion of Infusion Device into Superior Vena Cava, Percutaneous Approach (12/07/21) Introduction of Remdesivir Anti-infective into Peripheral Vein, Percutaneous Approach, [employer] 5 (03/18/23) Ultrasonography of Superior Vena Cava, Guidance (12/07/21) Labs on day of discharge: Laboratory Results - last 24 hr 05/28/23 05/28/23 05/28/23 11:29 16:12 20:11 POC Glucose 193 H 147 H 207 H 05/29/23 07:04 POC Glucose 209 H Discharge Plan Discharge Anticipated Discharge Date/Time: 05/29/23 09:54 Patient Disposition: Xfer SNF Discharge Diagnosis: aspiration pneumonia Referrals: Physician,Unknown J [Primary Care Provider] - 1 Week Discharge Medications: New furosemide 20 mg Tablet 20 mg PO DAILY Qty: 0 0RF Protocol: Hold for SBP< HOLD for SBP < : 90 prednisone 20 mg tablet 40 mg PO DAILY Qty: 15 0RF Rx Instructions: 40mg daily for 5 days then 20mg daily for 5 days Continued (DME) walker Misc See Rx Instructions .Route Qty: 1 0RF Patient Comments: Pt states doesnot use Rx Instructions: with seat and wheels (DME) blood-glucose meter [FreeStyle Lite Meter] Kit See Rx Instructions .Route Qty: 1 0RF Rx Instructions: test once daily Anoro Ellipta 62.5-25 mcg/actuation blister with device 1 ea PO DAILY Qty: 60 6RF docusate sodium 100 mg capsule 100 mg PO BID 90 Days Qty: 180 1RF tamsulosin 0.4 mg capsule 0.4 mg PO DAILY 30 Days Qty: 30 2RF ipratropium-albuterol 0.5 mg-3 mg(2.5 mg base)/3 mL solution for nebulization 3 ml inhalation QID PRN (Reason: for dyspnea) Qty: 180 0RF carvedilol 6.25 mg tablet 6.25 mg PO BID Qty: 60 5RF Eliquis 5 mg tablet 5 mg PO BID 90 Days Qty: 180 0RF metformin 500 mg tablet extended release 24 hr 500 mg PO DAILY 30 Days Qty: 30 5RF erythromycin 5 mg/gram (0.5 %) ointment 0.5 inch ophthalmic (eye) QID Qty: 50 0RF finasteride 5 mg tablet 5 mg PO DAILY lovastatin 10 mg tablet 10 mg PO DAILY travoprost 0.004 % drops 1 drp ophthalmic-Right BEDTIME albuterol sulfate [Ventolin HFA] 90 mcg/actuation HFA aerosol inhaler 2 puff INHALATION Q4H PRN (Reason: wheezing) meropenem 1 gram Recon Soln 1 g IV Q8H 8 Days Qty: 24 0RF heparin, porcine (PF) [Heparin LockFlush(Porcine)(PF)] 10 unit/mL Syringe 50 unit IVFLUSH TID 8 Days Qty: 120 0RF guaifenesin [Mucinex] 600 mg Tablet Extended Release 12hr 600 mg PO BID Qty: 20 0RF acetaminophen 325 mg Tablet 650 mg PO Q6H PRN (Reason: Pain) esomeprazole magnesium 40 mg Capsule,Delayed Release(Dr/Ec) 40 mg PO DAILY@0630 magnesium hydroxide [Milk of Magnesia] 400 mg/5 mL Suspension 30 ml PO DAILY PRN (Reason: Constipation) bisacodyl [Dulcolax (bisacodyl)] 10 mg Suppository 10 mg MA DAILY PRN (Reason: Constipation) Fleet Enema 19-7 gram/118 mL Enema 118 ml MA DAILY PRN (Reason: Constipation) (DME) FreeStyle Lite Strips Strip See Rx Instructions .Route Qty: 100 5RF Rx Instructions: test once daily (DME) lancets [FreeStyle Lancets] 28 gauge misc See Rx Instructions .Route Qty: 100 6RF Rx Instructions: Use 1 lancet once a day Discontinued prednisone 10 mg tablet See Taper PO DIRECTED Qty: 30 0RF Taper: Prednisone 40 mg daily for 3 Days and 0 Hour 30 mg daily for 3 Days and 0 Hour 20 mg daily for 3 Days and 0 Hour 10 mg daily for 3 Days and 0 Hour Rx Instructions: see taper instructions; 40mg 05/24- 05/27 Discharge Orders: Discharge Order (Routine); Ordered 05/29/23 Ordered By: Nick Coker Diet: ndd2 solids, thin liquid Activity on Discharge: As tolerated Stand Alone Forms: Patient Portal Discharge page Care Plan Goals: avoid aspiration events, chf exacerbations Health Concerns: aspiration, chf Plan of Treatment: complete merem course, start maintence lasix, steroid taper, continue aspiration precautions - ndd2 solids, thin liquids Assessment: see above
--- NOTE | 2023-05-29 10:48 | MHC.CM.PN ---
Second IMM 05/29/23, Pt has been medically cleared for DC, he will return to [facility] for STR by ambulance today.
--- NOTE | 2023-05-29 11:21 | MHC.SPEECHCO ---
Pt returning to SNF. Discharge Summary updated with MBSS results.
[2023-05-29 11:24] LABS: Glucose, Whole Blood 147 mg/dL (60-115)
[2023-05-29 11:34] VITALS: BP 138/82; PULSE 70; RESP 18; TEMP 36.6; O2SAT 99
== END 2023-05-29 13:04 | disposition skilled nursing facility (03) | DRG 871 ==
LOC: HO.ED 05:51 → HO.EDOVER 09:18 → HO.IMC 19:24
PROVIDERS: Hospitalist; Admitting Provider Internal Medicine; Emergency Provider Internal Medicine; PCP Family Medicine; Visit Provider Internal Medicine
DX: A41.9 Sepsis, unspecified organism (principal); J69.0 Pneumonitis due to inhalation of food and vomit; J96.21 Acute and chronic respiratory failure with hypoxia; J47.1 Bronchiectasis with (acute) exacerbation; I50.22 Chronic systolic (congestive) heart failure; A31.0 Pulmonary mycobacterial infection; I48.0 Paroxysmal atrial fibrillation; E11.9 Type 2 diabetes mellitus without complications; Z20.822 Contact with and (suspected) exposure to COVID-19; Z99.81 Dependence on supplemental oxygen; Z87.891 Personal history of nicotine dependence; Z79.84 Long term (current) use of oral hypoglycemic drugs; Z79.01 Long term (current) use of anticoagulants; Z79.899 Other long term (current) drug therapy
CPT/HCPCS: 0241U; 36410; 36415; 71045; 71250; 74230; 80048; 80053; 81001; 82803; 82947; 83605; 83735; 83880; 84484; 85025; 85027; 85610; 87040; 87086; 87088; 87640; 87641; 92526; 92610; 92611; 93005; 94640; 99285; C1751; J1642; J2185; J2920; J3371

== ENCOUNTER → 2023-05-24 04:34 | Outpatient (BNV) | payer MEDICARE, MEDICAID, SELFPAY | PROVIDERS: Admitting Provider Internal Medicine; Emergency Provider Internal Medicine; Visit Provider Internal Medicine Cardiovascular Disease | DX: I49.3 Ventricular premature depolarization (principal) | CPT/HCPCS: 93010 ==

== ENCOUNTER 2023-05-24 06:12 | Outpatient (REF) | payer MEDICARE, MEDICAID, SELFPAY | END 2023-05-24 06:13 | disposition home or self-care (01) | LOC: HO.MMNH1L 06:12 | PROVIDERS: Visit Provider Family Medicine | DX: Z13.89 Encounter for screening for other disorder (principal) ==

== ENCOUNTER 2023-05-24 09:14 | Outpatient (BNV) | payer MEDICARE, MEDICAID, SELFPAY | END 2023-05-25 13:44 | PROVIDERS: Admitting Provider Internal Medicine; Emergency Provider Internal Medicine; Visit Provider Physician Assistant Surgical | DX: R13.10 Dysphagia, unspecified (principal) | CPT/HCPCS: 74230 ==

== ENCOUNTER → 2023-05-24 09:14 | Outpatient (BNV) | payer MEDICARE, MEDICAID, SELFPAY | PROVIDERS: Admitting Provider Internal Medicine; Emergency Provider Internal Medicine; Visit Provider Internal Medicine | DX: J47.1 Bronchiectasis with (acute) exacerbation (principal); J44.1 Chronic obstructive pulmonary disease with (acute) exacerbation | CPT/HCPCS: 99223; 99232; 99233; 99239 ==

== ENCOUNTER → 2023-05-24 09:14 | Outpatient (BNV) | payer MEDICARE, MEDICAID, SELFPAY | PROVIDERS: Admitting Provider Internal Medicine; Emergency Provider Internal Medicine; Visit Provider Hospitalist | DX: J69.0 Pneumonitis due to inhalation of food and vomit (principal); J96.21 Acute and chronic respiratory failure with hypoxia; J44.1 Chronic obstructive pulmonary disease with (acute) exacerbation; J47.1 Bronchiectasis with (acute) exacerbation | CPT/HCPCS: 99223; 99232 ==

== ENCOUNTER 2023-06-17 15:18 | Emergency (ER) | payer MEDICARE, MEDICAID, SELFPAY ==
[2023-06-17 15:33] VITALS: BP 140/70; PULSE 60; O2SAT 89
[2023-06-17 15:37] VITALS: BP 117/68; PULSE 101; RESP 18; O2SAT 96; BMI 18.6
[2023-06-17 16:00] VITALS: BP 110/68; PULSE 97; RESP 16; TEMP 36.4; O2SAT 98
[2023-06-17 16:00] LABS: Basophils Absolute Auto 0.1 X10*3/uL (0.0-0.2); Basophils Percent Auto 0.5 % (0-2); Eosinophils Absolute Auto 2.9 X10*3/uL (0.0-0.4); Eosinophils Percent Auto 16.5 % (0-4); Hemoglobin 11.1 g/dl (14.0-18.0); Imm Gran Abs Auto 0.18 X10*3/uL (0.00-0.03); Lymphocytes Absolute Auto 0.9 X10*3/uL (1.2-4.9); Lymphocytes Percent Auto 5.1 % (20-40); MANUAL DIFF FLAG SCAN; Mean Corpuscular HGB Conc 30.8 g/dl (31.0-36.0); Mean Corpuscular Hemoglobin 25.3 pg (27.0-33.0); Mean Corpuscular Volume 82.2 fL (80.0-98.0); Mean Platelet Volume 9.1 fL (9.4-12.4); Monocytes Percent Auto 5.9 % (2-11); Neutrophils Absolute Auto 12.5 x10*3/uL (2.0-8.3); Platelet Count 283 X10*3/uL (160-400); Red Blood Count 4.38 X10*6/uL (4.60-5.80); Red Cell Distribution Width 21.9 % (11.0-16.0); SCAN SMEAR FLAG 1; White Blood Count 17.6 X10*3/uL (4.8-10.8)
--- OUTSIDE RECORDS SUMMARY | 2023-06-17 16:03 | XMS_ITS | Continuity of Care Document ---
Author Organization [facility] Address [address] [place] [address]- Care Team Providers Care Boat Outfitter Name Role Phone Not on Staff, PCP Primary Care Physician Unavail able Encounter [facility] [place] Date(s): 04/02/23 - 05/02/23 [facility] [address] [place] [id number] Attending Physician: Adela Rosado Admitting Physician: Adela Rosado Referring Physician: AdmtrAdela Allergies, Adverse Reactions, Alerts Substance Reaction Severity Status penicillin Active Medications albuterol-ipratropium 3 mg-0.5 mg/3 ml inhalation solution 3 mL, Inhalation, 4 times a day, Maintenance, 10/25/20 13:33:00 EDT, Solution Start Date: 10/25/20 Status: Ordered carvedilol 6.25 mg oral tablet 6.25 mg, 1, tablet, By Mouth, 2 times a day, Maintenance, 10/25/20 13:33:00 EDT Start Date: 10/25/20 Status: Ordered Entresto 24 mg-26 mg oral tablet 1 tablet, By Mouth, 2 times a day, Maintenance, 10/25/20 13:33:00 EDT, Tablet Start Date: 10/25/20 Status: Ordered latanoprost 0.005% ophthalmic solution 1 drops, Eyes, Both, Daily at bedtime, Maintenance, 10/25/20 13:33:00 EDT, Ophth Solution Start Date: 10/25/20 Status: Ordered losartan 25 mg oral tablet 1 tablet = 25 mg, By Mouth, Daily, Maintenance, 10/25/20 13:33:00 EDT, Tablet Start Date: 10/25/20 Status: Ordered lovastatin 10 mg oral tablet 1 tablet = 10 mg, By Mouth, Daily, Maintenance, 10/25/20 13:34:00 EDT, Tablet Start Date: 10/25/20 Status: Ordered Myrbetriq 25 mg oral tablet, extended release 1 tablet = 25 mg, By Mouth, Daily, do not crush or chew, Maintenance, 10/25/20 13:34:00 EDT, ER Tablet Start Date: 10/25/20 Status: Ordered omeprazole 40 mg oral enteric coated capsule 1 capsule = 40 mg, By Mouth, Daily, Maintenance, 10/25/20 13:34:00 EDT, EC Capsule Start Date: 10/25/20 Status: Ordered oxybutynin 10 mg/24 hr oral tablet, extended release 1 tablet = 10 mg, By Mouth, Daily, Maintenance, 10/25/20 13:34:00 EDT, ER Tablet Start Date: 10/25/20 Status: Ordered ProAir HFA 90 mcg/inh inhalation aerosol 2 puffs, Inhalation, Every 4 hours, PRN as needed for wheezing, Maintenance, 10/25/20 13:34:00 EDT,Aerosol Start Date: 10/25/20 Status: Ordered Problem List Condition Confirmation Course Effective Dates Status Health St atus Informant GERD (gastroesophageal reflux disease) Confirmed Active Glaucoma Confirmed Active Heart failure Confirmed Active Hypertension Confirmed Active COPD with emphysema Confirmed Active Patient Care team information Care Team Personnel Name: Haley Dean RN Position: [facility] RN Member Role: Primary Care Nurse Name: Israel Snowden RN Position: [facility] ED RN W/OE and Tasks Member Role: Primary Care Nurse Name: Kaela Duvall RN Position: [facility] RN Member Role: Primary Care Nurse Name: Mariya De Santiago Position: S RN Member Role: Primary Care Nurse Name: Maile Toro RN Position: [facility] RN Member Role: Primary Care Nurse Name: Not on Staff, PCP Position: [facility] Physician (General Medicine) Member Role: PCP Care Team Related Persons Name: ANA RAMOS Address: home [address] [place] [id number]
--- OUTSIDE RECORDS SUMMARY | 2023-06-17 16:03 | XMS_ITS | Continuity of Care Document ---
Author Organization [facility] Address [address] [place] [address]- Care Team Providers Care Colors Custodian Name Role Phone Not on Staff, PCP Primary Care Physician Unavail able Encounter [facility] [place] Date(s): 02/23/23 - 05/02/23 [facility] [address] [place] [id number] Attending Physician: Chaparro Goldman MD Admitting Physician: Chaparro Goldman MD Referring Physician: Not on Staff, Referring MD Allergies, Adverse Reactions, Alerts Substance Reaction Severity [...] Team Personnel Name: Haley Dean RN Position: [facility] RN Member Role: Primary Care Nurse Name: Israel Snowden RN Position: [facility] ED RN W/OE and Tasks Member Role: Primary Care Nurse Name: Kaela Duvall RN Position: [facility] RN Member Role: Primary Care Nurse Name: Mariya De Santiago Position: S RN Member Role: Primary Care Nurse Name: Maile Toro RN Position: [facility] RN Member Role: Primary Care Nurse Name: Not on Staff, PCP Position: [facility] Physician (General Medicine) Member Role: PCP Care Team Related Persons Name: ANA RAMOS Address: home [address] [place] [id number]
[2023-06-17 16:08] LABS: INTERNATIONAL NORM RATIO 1.8 (0.9-1.1); Prothrombin Time 21.9 SEC (11.1-13.3)
--- NOTE | 2023-06-17 16:14 | ED_ITS ---
HPI - General Adult General Chief complaint: General Medical Stated complaint: nose bleed longer than 30 mins, on thinners Time Seen by Provider: 06/17/23 16:07 Source: patient and EMS Mode of arrival: EMS Limitations: no limitations History of Present Illness HPI narrative: Patient comes to the emergency room complaining of nosebleed that has been present for 30+ minutes. Patient states that he frequently has nosebleeds, takes Eliquis for atrial fibrillation. Patient denies chest pain or shortness of breath, no headache, denies dizziness, syncope or near syncope. Related Data Home Medications ?Medication ?Instructions ?Recorded ?Confirmed albuterol sulfate 90 mcg/actuation 2 puff inhalation Q4H PRN wheezing 03/09/23 05/24/23 aerosol inhaler (Ventolin HFA) finasteride 5 mg tablet 5 mg PO DAILY 03/09/23 05/24/23 lovastatin 10 mg tablet 10 mg PO DAILY 03/09/23 05/24/23 travoprost 0.004 % eye drops 1 drp ophthalmic-Right BEDTIME 03/09/23 05/24/23 acetaminophen 325 mg tablet 650 mg PO Q6H PRN Pain 05/24/23 05/24/23 bisacodyl 10 mg rectal suppository 10 mg NJ DAILY PRN Constipation 05/24/23 05/24/23 (Dulcolax (bisacodyl)) esomeprazole magnesium 40 mg 40 mg PO DAILY@0630 05/24/23 05/24/23 capsule,delayed release magnesium hydroxide 400 mg/5 mL 30 ml PO DAILY PRN Constipation 05/24/23 05/24/23 oral suspension (Milk of Magnesia) sodium phosphates 19 gram-7 118 ml NJ DAILY PRN Constipation 05/24/23 05/24/23 gram/118 mL enema (Fleet Enema) Previous Rx's ?Medication ?Instructions ?Recorded walker #1 ea 03/20/22 blood-glucose meter (FreeStyle #1 ea 09/13/22 Lite Meter kit) blood sugar diagnostic (FreeStyle #100 ea 10/30/22 Lite Strips) lancets 28 gauge (FreeStyle #100 ea 10/30/22 Lancets) Anoro Ellipta 62.5 mcg-25 1 ea PO DAILY #60 ea 02/12/23 mcg/actuation powder for inhalation (umeclidinium-vilanterol) docusate sodium 100 mg capsule 100 mg PO BID 90 days #180 caps 03/13/23 tamsulosin 0.4 mg capsule 0.4 mg PO DAILY 30 days #30 caps 03/19/23 ipratropium 0.5 mg-albuterol 3 mg 3 ml inhalation QID PRN for 04/06/23 (2.5 mg base)/3 mL nebulization dyspnea #180 mL soln carvedilol 6.25 mg tablet 6.25 mg PO BID #60 tabs 04/17/23 erythromycin 5 mg/gram (0.5 %) eye 0.5 inch ophthalmic (eye) QID #50 05/06/23 ointment grams apixaban 5 mg tablet (Eliquis) 5 mg PO BID 90 days #180 tabs 05/15/23 metformin 500 mg tablet,extended 500 mg PO DAILY 30 days #30 tabs 05/15/23 release 24 hr guaifenesin 600 mg tablet, 600 mg PO BID #20 tabs 05/22/23 extended release 12 hr (Mucinex) heparin, porcine (PF) 10 unit/mL 50 unit (5 mL) IVFLUSH TID 8 days 05/22/23 intravenous syringe (Heparin Lock #120 mL Flush (Porcine) (PF)) meropenem 1 gram intravenous 1 g IV Q8H 8 days #24 ea 05/22/23 solution furosemide 20 mg tablet 20 mg PO DAILY #0 tabs 05/29/23 prednisone 20 mg tablet 40 mg (2 x 20 mg) PO DAILY #15 tabs 05/29/23 Allergies Allergy/AdvReac Type Severity Reaction Status Date / Time Penicillins [PENICILLINS] Allergy Intermediate PASSED Verified 06/17/23 15:38 OUT trazodone Allergy Intermediate tremors Verified 06/17/23 15:38 brimonidine [From Alphagan P] Allergy Unknown Verified 06/17/23 15:38 diphenhydramine Allergy Unknown Verified 06/17/23 15:38 [From Benadryl] Review of Systems 2 Review of Systems: Constitutional : No Weight loss, No Fever, No Chills, No Night Sweats, No Fatigue, No Malaise ENT/Mouth : Complaining of bloody nose, No Hearing loss, No Ear Pain, No Nasal Congestion, No Sinus Pain, No Hoarseness, No sore throat, No Rhinorrhea, No Swallowing Difficulty Eyes: No Eye Pain, No Swelling, No Redness, No Foreign Body, No Discharge, No Vision Changes Cardiovascular : No Chest Pain, No SOB, No Dyspnea on Exertion, No Orthopnea, No Edema, No Palpitations Respiratory : No Cough, No Sputum, No Wheezing, No Smoke Exposure, No Dyspnea Gastrointestinal : No Nausea, No Vomiting, No Diarrhea, No Constipation, No abdominal Pain, No Hematochezia, No Melena Genitourinary : no irregular bleeding, No Dysuria, No Urinary Frequency, No Hematuria, No Urinary Incontinence, No Urgency, No Flank Pain, No Urinary Flow Changes, No Hesitancy Musculoskeletal : No joint pain, No Myalgias, No Joint Swelling Skin : No Skin Lesions, No rash Neuro : No Weakness, No Numbness, No Paresthesias, No Loss of Consciousness, No Dizziness, No Headache Psych : No Anxiety/Panic, No Depression, No SI/HI/AH/VH, No Social Issues, Heme/Lymph: No Bruising, No Bleeding,No Lymphadenopathy Endocrine : No Polyuria, No Polydipsia, No Temperature Intolerance PMFSH Past Medical History Medical History Swallowing problem 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 Kidney stone on left side Bronchiectasis Paroxysmal atrial fibrillation Congestive heart failure Acute and chronic respiratory failure BPH loc w urin obs/LUTS Urinary retention History of COVID-19 Chronic anticoagulation History of pneumothorax Diabetes Supplemental oxygen dependent COPD (chronic obstructive pulmonary disease) Kidney stone on left side Hearing loss NICM (nonischemic cardiomyopathy) JESSA (mycobacterium avium-intracellulare) Bronchiectasis Glaucoma Pure hypercholesterolemia GERD (gastroesophageal reflux disease) History of MAC infection Essential hypertension Surgical History History of transurethral resection of bladder tumor (TURBT) History of cataract surgery History of left inguinal hernia repair History of bronchoscopy History of colonoscopy History of lumbar surgery History of cystoscopy Family History Family History Father No problems noted. Mother Medical history unknown Sister Diabetes Daughter In good health Son In good health Brother No problems noted. Social History Social History Household Members: Other Housing: Other Housing Other:: Gianluca Mack Are you a primary manager home healthcare to a significant other at home: No Do you presently have visiting nurse or other home services: No Alcohol intake: never Comment: 1:1 sitter in room Patient Tobacco Use Status: Former Tobacco user Quit Date: 10 years ago Tobacco use type: Cigarette e-Cigarette/Vaping Use: Former Use Second Hand Smoke Exposure: No Advance Directives: Yes Advance Directives on File: Yes Advance Directives Date on File: 02/03/22 service: No Current occupational status: retired Cognitive needs: No Hearing needs: Yes Vision needs: Yes Physical Exam ED Vital Signs: Vital Signs - 24 hr 06/17/23 15:37 06/17/23 16:00 Temperature 97.6 F Pulse Rate 101 H 97 Respiratory Rate 18 16 Blood Pressure 117/68 110/68 Pulse Oximetry 96 98 Oxygen Delivery Method Oxymask Oxymask Oxygen Flow Rate 2 BMI result Body Mass Index 18.6 Const Other: Appearance: Alert. Oriented X3. No acute distress. Eyes: Pupils equal, round and reactive to light. ENT: Pharynx normal. Mild bleeding from the left nostril Neck: Normal inspection. Neck supple. No lymph nodes noted. No crepitus CVS: Normal heart rate and rhythm. Pulses normal. Normal S1 and S2 Respiratory: No respiratory distress. Breath sounds normal. No Wheezing. No rales Abdomen: Soft and nontender. No rigidity. No distention. Skin: Skin warm and dry. Normal skin color. Normal skin turgor. Extremities: No lower extremity edema. No Lacerations. No Rash Neuro: Oriented X 3. No motor deficit. No sensory deficit. Moving all extremities. No slurred speech. CN 2 through 12 grossly intact Psych: calm, cooperative, normal affect Course Course Course Narrative: -patient's labs pending -patient's nostril being sprayed with Afrin Medications Administered Discontinued Medications Generic Name Dose Route Start Last Admin Trade Name Freq PRN Reason Stop Dose Admin Oxymetazoline HCl 2 spray 06/17/23 16:13 06/17/23 16:51 Oxymetazoline Hcl 0.05 % Nasal 15 Ml [place] NOSTRIL-B 06/17/23 16:14 2 spray ONCE ONE Administration Medical Decision Making Medical Decision Making [facility] Narrative: -my interpretation of labs: Patient's hemoglobin is a bit elevated 17.6. However, patient has had this elevation before. Rest of hematology at baseline, chemistry at baseline -epistaxis stopped Lab Data 06/17/23 15:52 06/17/23 15:52 Labs: Lab Results 06/17/23 Range/Units 15:52 WBC 17.6 H (4.8-10.8) X10*3/uL RBC 4.38 L D (4.60-5.80) X10*6/uL Hgb 11.1 L (14.0-18.0) g/dl Hct 36.0 L (42.0-52.0) % MCV 82.2 D (80.0-98.0) fL MCH 25.3 L (27.0-33.0) pg MCHC 30.8 L (31.0-36.0) g/dl RDW 21.9 H (11.0-16.0) % Plt Count 283 D (160-400) X10*3/uL MPV 9.1 L (9.4-12.4) fL Immature Gran % (Auto) 1.0 H (0.0-0.4) % Neut % (Auto) 71.0 (45-73) % Lymph % (Auto) 5.1 L (20-40) % [place] % (Auto) 5.9 (2-11) % Eos % (Auto) 16.5 H (0-4) % Baso % (Auto) 0.5 (0-2) % Lymph # (Auto) 0.9 L (1.2-4.9) X10*3/uL [place] # (Auto) 1.0 (0.1-1.2) X10*3/uL Eos # (Auto) 2.9 H (0.0-0.4) X10*3/uL Baso # (Auto) 0.1 (0.0-0.2) X10*3/uL Abs Immat Gran (auto) 0.18 H (0.00-0.03) X10*3/uL Absolute Neuts (auto) 12.5 H (2.0-8.3) x10*3/uL Absolute Nucleated RBC 0.000 (0.0-0.012) X10*3/uL Nucleated RBC % (auto) 0.0 (0.0-0.2) /100WBC Smear Tech's Comments VERIFIED PT 21.9 H D (11.1-13.3) SEC INR 1.8 H (0.9-1.1) Sodium 137 (135-145) mmol/L Potassium 4.2 (3.3-5.1) mmol/L Chloride 99 (96-108) mmol/L Carbon Dioxide 29 (22-29) mmol/L Anion Gap 13 (12-20) BUN 12 (9-16) mg/dL Creatinine 0.82 (0.5-1.4) mg/dL Estim Creat Clear Calc 56.5 Estimated GFR > 60 Random Glucose 116 H (60-115) mg/dL Calcium 8.8 (8.4-10.2) mg/dL Total Bilirubin 0.2 (0.0-1.0) mg/dL AST 13 (5-37) U/L ALT 17 (0-40) U/L Alkaline Phosphatase 97 (39-117) U/L Total Protein 7.3 (6.5-8.0) g/dL Albumin 2.9 L (3.5-5.0) g/dL Discharge Plan Discharge Clinical Impression: Epistaxis Patient Disposition: Home, Self-Care Instructions: Nosebleed (ED) Additional Instructions: Please follow-up with your primary care physician tomorrow. If you have any worsening or new symptoms, please return to the emergency room or call 911 Prescriptions: No Action (DME) walker Misc See Rx Instructions .Route Qty: 1 0RF Patient Comments: Pt states doesnot use Rx Instructions: with seat and wheels (DME) blood-glucose meter [FreeStyle Lite Meter] Kit See Rx Instructions .Route Qty: 1 0RF Rx Instructions: test once daily Anoro Ellipta 62.5-25 mcg/actuation blister with device 1 ea PO DAILY Qty: 60 6RF docusate sodium 100 mg capsule 100 mg PO BID 90 Days Qty: 180 1RF tamsulosin 0.4 mg capsule 0.4 mg PO DAILY 30 Days Qty: 30 2RF ipratropium-albuterol 0.5 mg-3 mg(2.5 mg base)/3 mL solution for nebulization 3 ml inhalation QID PRN (Reason: for dyspnea) Qty: 180 0RF carvedilol 6.25 mg tablet 6.25 mg PO BID Qty: 60 5RF Eliquis 5 mg tablet 5 mg PO BID 90 Days Qty: 180 0RF metformin 500 mg tablet extended release 24 hr 500 mg PO DAILY 30 Days Qty: 30 5RF erythromycin 5 mg/gram (0.5 %) ointment 0.5 inch ophthalmic (eye) QID Qty: 50 0RF finasteride 5 mg tablet 5 mg PO DAILY lovastatin 10 mg tablet 10 mg PO DAILY travoprost 0.004 % drops 1 drp ophthalmic-Right BEDTIME albuterol sulfate [Ventolin HFA] 90 mcg/actuation HFA aerosol inhaler 2 puff INHALATION Q4H PRN (Reason: wheezing) meropenem 1 gram Recon Soln 1 g IV Q8H 8 Days Qty: 24 0RF heparin, porcine (PF) [Heparin LockFlush(Porcine)(PF)] 10 unit/mL Syringe 50 unit IVFLUSH TID 8 Days Qty: 120 0RF guaifenesin [Mucinex] 600 mg Tablet Extended Release 12hr 600 mg PO BID Qty: 20 0RF acetaminophen 325 mg Tablet 650 mg PO Q6H PRN (Reason: Pain) esomeprazole magnesium 40 mg Capsule,Delayed Release(Dr/Ec) 40 mg PO DAILY@0630 magnesium hydroxide [Milk of Magnesia] 400 mg/5 mL Suspension 30 ml PO DAILY PRN (Reason: Constipation) bisacodyl [Dulcolax (bisacodyl)] 10 mg Suppository 10 mg NJ DAILY PRN (Reason: Constipation) Fleet Enema 19-7 gram/118 mL Enema 118 ml NJ DAILY PRN (Reason: Constipation) furosemide 20 mg Tablet 20 mg PO DAILY Qty: 0 0RF Protocol: Hold for SBP< HOLD for SBP < : 90 prednisone 20 mg tablet 40 mg PO DAILY Qty: 15 0RF Rx Instructions: 40mg daily for 5 days then 20mg daily for 5 days (DME) FreeStyle Lite Strips Strip See Rx Instructions .Route Qty: 100 5RF Rx Instructions: test once daily (DME) lancets [FreeStyle Lancets] 28 gauge misc See Rx Instructions .Route Qty: 100 6RF Rx Instructions: Use 1 lancet once a day Print Language: Palestinian
--- NOTE | 2023-06-17 16:18 | PC.NURSE ---
PT FROM HOME VIA AMBULANCE. CHIEF C/O L NOSTRIL BLEEDING X 2 HRS. PT REPORTS THAT THIS HAPPENED ABOUT ONE MONTH AGO BUT IT ONLY LASTED 20 MINS. HE STATES IT STARTED BLEEDING WITHOUT CAUSE. LARGE CLOT OBSERVED ON THE PT'S SHIRT ON ARRIVAL TO THE ED. HE REPORTED FEELING LIKE HE WAS HAVING TROUBLE BREATHING WHILE HIS NOSTRIL WAS PINCHED. O2 SAT 87-88% R/A, HE WAS PUT ON 2L OF O2 VIA OXYMASK, O2 97-98%. PT ON 2L N/C AT BASELINE. NOSE CLAMPED AT THIS TIME, MINIMAL AMOUNT OF BLEEDING OBSERVED AT THIS TIME. PT DENIES PAIN, VSS. WILL CONTINUE TO OBSERVE.
[2023-06-17 16:19] LABS: Alanine Aminotransferase 17 U/L (0-40); Albumin Level 2.9 g/dL (3.5-5.0); Alkaline Phosphatase 97 U/L (39-117); Anion Gap 13 (12-20); Aspartate Amino Transferase 13 U/L (5-37); Bilirubin Total 0.2 mg/dL (0.0-1.0); Blood Urea Nitrogen 12 mg/dL (9-16); Calcium 8.8 mg/dL (8.4-10.2); Carbon Dioxide 29 mmol/L (22-29); Chloride 99 mmol/L (96-108); Creatinine Clr Calc Pharmacy 56.5; Estimated Glomerular Filt Rate > 60; Glucose Random 116 mg/dL (60-115); Potassium 4.2 mmol/L (3.3-5.1); Sodium 137 mmol/L (135-145); Total Protein 7.3 g/dL (6.5-8.0)
[2023-06-17 16:23] LABS: SLIDE REVIEW VERIFIED
[2023-06-17] MEDS: Oxymetazoline HCl 0.05 % Nasal 15 ML SPRAY 2 SPRAY NOSTRIL-B (16:51)
[2023-06-17 17:52] VITALS: BP 116/71; PULSE 101; RESP 17; TEMP 36.5; O2SAT 94
== END 2023-06-17 17:55 | disposition home or self-care (01) ==
PROVIDERS: Emergency Provider Emergency Medicine; PCP Internal Medicine
DX: R04.0 Epistaxis (principal); Z79.899 Other long term (current) drug therapy
CPT/HCPCS: 36415; 80053; 85025; 85610; 99283

== ENCOUNTER 2023-06-18 10:50 | Emergency (ER) | payer MEDICARE, MEDICAID, SELFPAY ==
--- NOTE | ~2023-06-18 | XR_ITS ---
EXAMINATION: XR CHEST CLINICAL INFORMATION: Shortness of breath. COMPARISON: 05/28/2023 TECHNIQUE: Frontal view of the chest was obtained. FINDINGS: The lungs are similarly expanded. There is persistent evidence of chronic interstitial lung disease with architectural distortion and superimposed infiltrates/consolidative changes. There is increasing masslike opacity in the right perihilar region. No significant pleural effusion. Cardiac silhouette is obscured. There is rightward tracheal deviation. XR/XR chest 1V IMPRESSION: Increasing masslike opacity in the right perihilar region. This may be technical due to patient positioning. Close imaging surveillance is advised.
[2023-06-18 11:10] VITALS: BP 102/67; BP 103/64; PULSE 112; PULSE 114; RESP 29; TEMP 36.4; O2SAT 93; O2SAT 96; BMI 19.4
--- NOTE | 2023-06-18 11:15 | ECG_ITS ---
Test Reason : SHORTNESS OF BREATH Blood Pressure : / mmHG Vent. Rate : 114 BPM Atrial Rate : 114 BPM P-R Int : 126 ms QRS Dur : 130 ms QT Int : 370 ms P-R-T Axes : 063 -64 033 degrees QTc Int : 509 ms Sinus tachycardia Right bundle branch block Left anterior fascicular block Bifascicular block Abnormal ECG When compared with ECG of 24-MAY-2023 04:34, Premature supraventricular complexes are no longer Present T wave inversion now evident in Anterior leads Referred By: Haroon Hammer Electronically Signed By:Eduard Manning
[2023-06-18] MEDS: Albuterol Sulfate 5 MG, Albuterol/Iprat 2.5/0.5MG 3 ML 3 ML INHALE (11:30)
[2023-06-18 11:31] VITALS: PULSE 109; RESP 30; O2SAT 94
[2023-06-18] MEDS: methylPREDNISolone Sod Succ 125 MG/2 ML VIAL IVPUSH (11:31)
--- NOTE | 2023-06-18 11:35 | ED_ITS ---
HPI - SOB/Dyspnea General Chief Complaint: Dyspnea Stated Complaint: SOB,95% 4LPM, PER EMS Time Seen by Provider: 06/18/23 11:02 Source: patient and EMS Mode of arrival: EMS Limitations: language barrier (Hungarian) History of Present Illness HPI Narrative: Patient with increased shortness of breath with exertion and at rest. No fever no increased cough MD elicited complaint: shortness of breath Pertinent past history: COPD Onset (ago): day(s) Severity: moderate Known history of: COPD Related Data Home oxygen amount: 2 liters Home Medications ?Medication ?Instructions ?Recorded ?Confirmed albuterol sulfate 90 mcg/actuation 2 puff inhalation Q4H PRN wheezing 03/09/23 05/24/23 aerosol inhaler (Ventolin HFA) finasteride 5 mg tablet 5 mg PO DAILY 03/09/23 05/24/23 lovastatin 10 mg tablet 10 mg PO DAILY 03/09/23 05/24/23 travoprost 0.004 % eye drops 1 drp ophthalmic-Right BEDTIME 03/09/23 05/24/23 acetaminophen 325 mg tablet 650 mg PO Q6H PRN Pain 05/24/23 05/24/23 bisacodyl 10 mg rectal suppository 10 mg VA DAILY PRN Constipation 05/24/23 05/24/23 (Dulcolax (bisacodyl)) esomeprazole magnesium 40 mg 40 mg PO DAILY@0630 05/24/23 05/24/23 capsule,delayed release magnesium hydroxide 400 mg/5 mL 30 ml PO DAILY PRN Constipation 05/24/23 05/24/23 oral suspension (Milk of Magnesia) sodium phosphates 19 gram-7 118 ml VA DAILY PRN Constipation 05/24/23 05/24/23 gram/118 mL enema (Fleet Enema) Previous Rx's ?Medication ?Instructions ?Recorded walker #1 ea 03/20/22 blood-glucose meter (FreeStyle #1 ea 09/13/22 Lite Meter kit) blood sugar diagnostic (FreeStyle #100 ea 10/30/22 Lite Strips) lancets 28 gauge (FreeStyle #100 ea 10/30/22 Lancets) Anoro Ellipta 62.5 mcg-25 1 ea PO DAILY #60 ea 02/12/23 mcg/actuation powder for inhalation (umeclidinium-vilanterol) docusate sodium 100 mg capsule 100 mg PO BID 90 days #180 caps 03/13/23 tamsulosin 0.4 mg capsule 0.4 mg PO DAILY 30 days #30 caps 03/19/23 ipratropium 0.5 mg-albuterol 3 mg 3 ml inhalation QID PRN for 04/06/23 (2.5 mg base)/3 mL nebulization dyspnea #180 mL soln carvedilol 6.25 mg tablet 6.25 mg PO BID #60 tabs 04/17/23 erythromycin 5 mg/gram (0.5 %) eye 0.5 inch ophthalmic (eye) QID #50 05/06/23 ointment grams apixaban 5 mg tablet (Eliquis) 5 mg PO BID 90 days #180 tabs 05/15/23 metformin 500 mg tablet,extended 500 mg PO DAILY 30 days #30 tabs 05/15/23 release 24 hr guaifenesin 600 mg tablet, 600 mg PO BID #20 tabs 05/22/23 extended release 12 hr (Mucinex) heparin, porcine (PF) 10 unit/mL 50 unit (5 mL) IVFLUSH TID 8 days 05/22/23 intravenous syringe (Heparin Lock #120 mL Flush (Porcine) (PF)) meropenem 1 gram intravenous 1 g IV Q8H 8 days #24 ea 05/22/23 solution furosemide 20 mg tablet 20 mg PO DAILY #0 tabs 05/29/23 prednisone 20 mg tablet 40 mg (2 x 20 mg) PO DAILY #15 tabs 05/29/23 prednisone 20 mg tablet 60 mg (3 x 20 mg) PO DAILY #12 tabs 06/18/23 Allergies Allergy/AdvReac Type Severity Reaction Status Date / Time Penicillins [PENICILLINS] Allergy Intermediate PASSED Verified 06/18/23 11:15 OUT trazodone Allergy Intermediate tremors Verified 06/18/23 11:15 brimonidine [From Alphagan P] Allergy Unknown Verified 06/18/23 11:15 diphenhydramine Allergy Unknown Verified 06/18/23 11:15 [From Benadryl] Review of Systems 2 Review of Systems: Yes all other systems are reviewed and are negative Neurologic: Denies Sensory deficit (Neuro) PMFSH Past Medical History Medical History Swallowing problem 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 Kidney stone on left side Bronchiectasis Paroxysmal atrial fibrillation Congestive heart failure Acute and chronic respiratory failure BPH loc w urin obs/LUTS Urinary retention History of COVID-19 Chronic anticoagulation History of pneumothorax Diabetes Supplemental oxygen dependent COPD (chronic obstructive pulmonary disease) Kidney stone on left side Hearing loss NICM (nonischemic cardiomyopathy) JESSA (mycobacterium avium-intracellulare) Bronchiectasis Glaucoma Pure hypercholesterolemia GERD (gastroesophageal reflux disease) History of MAC infection Essential hypertension Surgical History History of transurethral resection of bladder tumor (TURBT) History of cataract surgery History of left inguinal hernia repair History of bronchoscopy History of colonoscopy History of lumbar surgery History of cystoscopy Family History Family History Father No problems noted. Mother Medical history unknown Sister Diabetes Daughter In good health Son In good health Brother No problems noted. Social History Social History Household Members: Other Housing: Other Housing Other:: Gianluca Martina Are you a primary health care sanitary technician to a significant other at home: No Do you presently have visiting nurse or other home services: No Alcohol intake: never Comment: 1:1 sitter in room Patient Tobacco Use Status: Former Tobacco user Quit Date: 10 years ago Tobacco use type: Cigarette e-Cigarette/Vaping Use: Former Use Second Hand Smoke Exposure: No Advance Directives: Yes Advance Directives on File: Yes Advance Directives Date on File: 02/03/22 service: No Current occupational status: retired Cognitive needs: No Hearing needs: Yes Vision needs: Yes Physical Exam 2 Vital Signs: Vital Signs: Last Vital Signs Temp 97.6 F 06/18/23 11:10 Pulse 109 H 06/18/23 11:31 Resp 30 H 06/18/23 11:31 BP 103/64 06/18/23 11:10 Pulse Ox 93 06/18/23 11:10 O2 Del Method Nasal Cannula 06/18/23 11:10 Oxygen Flow Rate 2 06/18/23 11:10 BMI result Body Mass Index 19.4 Const: Other: elderly cachectic male with some SOB Nutritional Appearance: cachectic Orientation/consciousness: oriented to person and patient oriented x3 Limitations: no limitations HEENT: Head: Yes normal to inspection Ears: external ears normal General nose exam: Normal external nose present Mouth: Normal oral and palatal mucosa present and oropharynx normal Throat: Yes posterior oropharynx normal Eyes: General: appearance normal, both eyes and all related structures Neck: Other: supple Neck: Yes normal visual inspection Chest: Chest palpation & inspection: normal inspection of the chest Resp: Other: rhonchi and wheeze through out Cardio: Jugular venous distension: no JVD Rate: regular rate Rhythm: r egular rhythm Heart sounds: S1 normal heart sound present and S2 normal heart sound present GI: Inspection: Yes normal to inspection Palpation (GI): Soft to palpation, nontender and No hepatosplenomegaly present Auscultation: normal bowel sounds : General: Yes no CVA tenderness Back/Spine/Pelvis: Back: no CVA tenderness Skin: General skin exam: no rashes or lesions noted Neuro: General: oriented to person and patient oriented x3 Cranial nerves: Yes CN's II-XII intact bilaterally Motor exam (neuro): 5/5 motor strength present throughout Sensory Exam: No Sensory deficit (Neuro) Extrem: General: Yes normal to inspection Psych: Appearance: grossly normal Course Reevaluation(s) Reevaluation #1: Patient breathing much better O2 sat 94% on 2L Time: 14:14 Medications Administered Discontinued Medications Generic Name Dose Route Start Last Admin Trade Name Freq PRN Reason Stop Dose Admin Albuterol Sulfate 5 mg/ 0 mg 06/18/23 11:29 06/18/23 11:30 Albuterol/Ipratropium 3 ml INHALE 06/18/23 11:30 7.5 each ONCE ONE Administration Methylprednisolone Sodium Succinate 125 mg 06/18/23 11:15 06/18/23 11:31 Methylprednisolone Sod Succ 125 Mg/2 Ml Vial IVPUSH 06/18/23 11:16 125 mg ONCE ONE Administration Medical Decision Making Differential Diagnosis Differential Diagnoses: The differential diagnosis associated with the presentation includes (COPD exacerbation, pneumonia, rsv, covid and influenza all considered) Admission/Observation Consideration of admission/observation: Escalation of care including admission/observation considered (upon arrival patient considered for admission) Lab Data 06/18/23 12:21 06/18/23 12:21 Labs: Lab Results 06/18/23 06/18/23 Range/Units 12:21 12:26 WBC 19.3 H (4.8-10.8) X10*3/uL RBC 4.55 L (4.60-5.80) X10*6/uL Hgb 11.5 L (14.0-18.0) g/dl Hct 37.3 L (42.0-52.0) % MCV 82.0 (80.0-98.0) fL MCH 25.3 L (27.0-33.0) pg MCHC 30.8 L (31.0-36.0) g/dl RDW 21.7 H (11.0-16.0) % Plt Count 303 (160-400) X10*3/uL MPV 9.7 (9.4-12.4) fL Immature Gran % (Auto) 1.0 H (0.0-0.4) % Neut % (Auto) 72.7 (45-73) % Lymph % (Auto) 6.7 L (20-40) % [place] % (Auto) 4.0 (2-11) % Eos % (Auto) 15.2 H (0-4) % Baso % (Auto) 0.4 (0-2) % Lymph # (Auto) 1.3 (1.2-4.9) X10*3/uL [place] # (Auto) 0.8 (0.1-1.2) X10*3/uL Eos # (Auto) 2.9 H (0.0-0.4) X10*3/uL Baso # (Auto) 0.1 (0.0-0.2) X10*3/uL Abs Immat Gran (auto) 0.19 H (0.00-0.03) X10*3/uL Absolute Neuts (auto) 14.0 H (2.0-8.3) x10*3/uL Absolute Nucleated RBC 0.000 (0.0-0.012) X10*3/uL Nucleated RBC % (auto) 0.0 (0.0-0.2) /100WBC Smear Tech's Comments VERIFIED VBG pH 7.39 (7.32-7.43) VBG pCO2 55 mmHg VBG pO2 41 mmHg VBG HCO3 34 H (22-26) mmol/L VBG O2 Saturation 46.0 % VBG Base Excess 7.6 mmol/L Sodium 139 (135-145) mmol/L Potassium 4.1 (3.3-5.1) mmol/L Chloride 100 (96-108) mmol/L Carbon Dioxide 32 H (22-29) mmol/L Anion Gap 11 L (12-20) BUN 14 (9-16) mg/dL Creatinine 0.74 (0.5-1.4) mg/dL Estim Creat Clear Calc 61.2 Estimated GFR > 60 Random Glucose 112 (60-115) mg/dL Calcium 8.9 (8.4-10.2) mg/dL Troponin I High Sens 6.2 D (<3.5-35.0) ng/L Influenza Type A (PCR) NEGATIVE (Negative) Influenza Type B (PCR) NEGATIVE (Negative) RSV RNA Qual (PCR) NEGATIVE (Negative) SARS-CoV-2 RNA (RT-PCR) NEGATIVE (Negative) Independent Interpretation I performed an independent interpretation of an: EKG (sinus tachycardia 110, RBBB, no st or twave changes) and Plain X-Ray (chronic lung disease no ptx or pneumonia) Independent Historian Clinical information obtained from an independent historian. History obtained from or confirmed by: EMS External Record Review External record reviewed: Inpatient record and Outpatient record Tests considered The following testing was considered but not selected: CT of chest considered however patient improved and xray unchanged Prescription Management I considered prescription management with: Antibiotic (no pneumonia on xray) Chronic Conditions Patient?s care impacted by: Other (COPD) Discharge Plan Discharge Clinical Impression: Acute exacerbation of chronic obstructive airways disease Patient Disposition: Home, Self-Care Instructions: COPD (Chronic Obstructive Pulmonary Disease) (ED) Prescriptions: New prednisone 20 mg tablet 60 mg PO DAILY Qty: 12 0RF No Action (DME) walker Misc See Rx Instructions .Route Qty: 1 0RF Patient Comments: Pt states doesnot use Rx Instructions: with seat and wheels (DME) blood-glucose meter [FreeStyle Lite Meter] Kit See Rx Instructions .Route Qty: 1 0RF Rx Instructions: test once daily Anoro Ellipta 62.5-25 mcg/actuation blister with device 1 ea PO DAILY Qty: 60 6RF docusate sodium 100 mg capsule 100 mg PO BID 90 Days Qty: 180 1RF tamsulosin 0.4 mg capsule 0.4 mg PO DAILY 30 Days Qty: 30 2RF ipratropium-albuterol 0.5 mg-3 mg(2.5 mg base)/3 mL solution for nebulization 3 ml inhalation QID PRN (Reason: for dyspnea) Qty: 180 0RF carvedilol 6.25 mg tablet 6.25 mg PO BID Qty: 60 5RF Eliquis 5 mg tablet 5 mg PO BID 90 Days Qty: 180 0RF metformin 500 mg tablet extended release 24 hr 500 mg PO DAILY 30 Days Qty: 30 5RF erythromycin 5 mg/gram (0.5 %) ointment 0.5 inch ophthalmic (eye) QID Qty: 50 0RF finasteride 5 mg tablet 5 mg PO DAILY lovastatin 10 mg tablet 10 mg PO DAILY travoprost 0.004 % drops 1 drp ophthalmic-Right BEDTIME albuterol sulfate [Ventolin HFA] 90 mcg/actuation HFA aerosol inhaler 2 puff INHALATION Q4H PRN (Reason: wheezing) meropenem 1 gram Recon Soln 1 g IV Q8H 8 Days Qty: 24 0RF heparin, porcine (PF) [Heparin LockFlush(Porcine)(PF)] 10 unit/mL Syringe 50 unit IVFLUSH TID 8 Days Qty: 120 0RF guaifenesin [Mucinex] 600 mg Tablet Extended Release 12hr 600 mg PO BID Qty: 20 0RF acetaminophen 325 mg Tablet 650 mg PO Q6H PRN (Reason: Pain) esomeprazole magnesium 40 mg Capsule,Delayed Release(Dr/Ec) 40 mg PO DAILY@0630 magnesium hydroxide [Milk of Magnesia] 400 mg/5 mL Suspension 30 ml PO DAILY PRN (Reason: Constipation) bisacodyl [Dulcolax (bisacodyl)] 10 mg Suppository 10 mg VA DAILY PRN (Reason: Constipation) Fleet Enema 19-7 gram/118 mL Enema 118 ml VA DAILY PRN (Reason: Constipation) furosemide 20 mg Tablet 20 mg PO DAILY Qty: 0 0RF Protocol: Hold for SBP< HOLD for SBP < : 90 prednisone 20 mg tablet 40 mg PO DAILY Qty: 15 0RF Rx Instructions: 40mg daily for 5 days then 20mg daily for 5 days (DME) FreeStyle Lite Strips Strip See Rx Instructions .Route Qty: 100 5RF Rx Instructions: test once daily (DME) lancets [FreeStyle Lancets] 28 gauge misc See Rx Instructions .Route Qty: 100 6RF Rx Instructions: Use 1 lancet once a day Referrals: Physician,Unknown J [Primary Care Provider] - 3 days Print Language: Hungarian
[2023-06-18 12:32] LABS: Venous Blood Gas Refer to POC result
[2023-06-18 12:32] LABS: VBG Base Excess 7.6 mmol/L; VBG HCO3 34 mmol/L (22-26); VBG pCO2 55 mmHg; VBG pH 7.39 (7.32-7.43); VBG pO2 41 mmHg
[2023-06-18 12:41] LABS: Basophils Absolute Auto 0.1 X10*3/uL (0.0-0.2); Basophils Percent Auto 0.4 % (0-2); Eosinophils Absolute Auto 2.9 X10*3/uL (0.0-0.4); Eosinophils Percent Auto 15.2 % (0-4); Hematocrit 37.3 % (42.0-52.0); Hemoglobin 11.5 g/dl (14.0-18.0); Imm Gran Abs Auto 0.19 X10*3/uL (0.00-0.03); Lymphocytes Absolute Auto 1.3 X10*3/uL (1.2-4.9); Lymphocytes Percent Auto 6.7 % (20-40); MANUAL DIFF FLAG SCAN; Mean Corpuscular HGB Conc 30.8 g/dl (31.0-36.0); Mean Corpuscular Hemoglobin 25.3 pg (27.0-33.0); Mean Platelet Volume 9.7 fL (9.4-12.4); Monocytes Absolute Auto 0.8 X10*3/uL (0.1-1.2); Neutrophils Percent Auto 72.7 % (45-73); Platelet Count 303 X10*3/uL (160-400); Red Blood Count 4.55 X10*6/uL (4.60-5.80); Red Cell Distribution Width 21.7 % (11.0-16.0); SCAN SMEAR FLAG 1; White Blood Count 19.3 X10*3/uL (4.8-10.8)
[2023-06-18 12:49] LABS: Anion Gap 11 (12-20); Blood Urea Nitrogen 14 mg/dL (9-16); Calcium 8.9 mg/dL (8.4-10.2); Carbon Dioxide 32 mmol/L (22-29); Chloride 100 mmol/L (96-108); Creatinine Clr Calc Pharmacy 61.2; Estimated Glomerular Filt Rate > 60; Glucose Random 112 mg/dL (60-115); Potassium 4.1 mmol/L (3.3-5.1); Sodium 139 mmol/L (135-145)
[2023-06-18 12:57] LABS: Troponin-I High Sensitivity 6.2 ng/L (<3.5-35.0)
[2023-06-18 13:00] LABS: SLIDE REVIEW VERIFIED
[2023-06-18 13:11] LABS: Influenza A PCR NEGATIVE (Negative); Influenza B PCR NEGATIVE (Negative); Resp Syncy Virus RNA Qual PCR NEGATIVE (Negative); SARS COV2 PCR INHOUSE NEGATIVE (Negative)
--- NOTE | 2023-06-18 14:53 | MHC.CM.ED ---
Received notification that patient is active with [facility]. Return referral made in [facility] so they can follow. Continue to monitor for d/c needs.
[2023-06-18 15:17] VITALS: BP 112/70; PULSE 100; RESP 16; TEMP 36.6; O2SAT 96
== END 2023-06-18 15:57 | disposition home or self-care (01) ==
PROVIDERS: Emergency Provider Emergency Medicine
DX: J44.1 Chronic obstructive pulmonary disease with (acute) exacerbation (principal); E11.9 Type 2 diabetes mellitus without complications; I10 Essential (primary) hypertension
CPT/HCPCS: 0241U; 36415; 71045; 80048; 82803; 84484; 85025; 93005; 94640; 96374; 99284; J2919; J2930

== ENCOUNTER → 2023-06-18 11:15 | Outpatient (BNV) | payer MEDICARE, MEDICAID, SELFPAY | PROVIDERS: Emergency Provider Emergency Medicine; Visit Provider Internal Medicine Cardiovascular Disease | DX: R00.0 Tachycardia, unspecified (principal); I45.2 Bifascicular block | CPT/HCPCS: 93010 ==

== ENCOUNTER 2023-06-20 10:53 | Outpatient (AMB) | payer MEDICARE, MEDICAID, SELFPAY ==
[2023-06-20 10:55] VITALS: BP 100/58; PULSE 100; O2SAT 95; BMI 19.7
--- NOTE | 2023-06-20 10:55 | MHC.PC.OV ---
Vital Signs 06/20/23 10:55 Height 5 ft 6 in Weight 122 lb BMI 19.7 BP 100/58 L Blood Pressure Location Lt brachial Position Sitting Pulse 100 Pulse Source Pulse Oximeter Pulse Oximetry (%) 95 Oxygen Delivery Method Nasal Cannula Oxygen Flow Rate 2 Intake Visit Reasons: HDF from [facility] disch 06/17/23 Intake Note: HDF from [facility] disch 06/17 Acute exacerbation of chronic obstructive airways disease , c/o weight loss, weakness, SOB, Fatigue HgA1c done at [facility] 05/04/23 6.6 Waxer Tender Required: No Accompanied by: HEARINGS REPORTER Allergies Penicillins [PENICILLINS] Allergy (Intermediate, Verified 06/20/23 11:13) PASSED OUT trazodone Allergy (Intermediate, Verified 06/20/23 11:13) tremors brimonidine [From Alphagan P] Allergy (Verified 06/20/23 11:13) Unknown diphenhydramine [From Benadryl] Allergy (Verified 06/20/23 11:13) Unknown Medication List - Last Reconciled 06/20/23 by Olga Calzada MD acetaminophen 650 mg PO Q6H PRN albuterol sulfate 90 mcg/actuation (Ventolin HFA) 2 puffs inhalation Q4H PRN Anoro Ellipta 62.5-25 mcg/actuation (umeclidinium-vilanterol) 1 ea PO DAILY NS apixaban (Eliquis) 5 mg PO BID 90 days bisacodyl (Dulcolax (bisacodyl)) 10 mg [place] DAILY PRN blood sugar diagnostic (FreeStyle Lite Strips) test once daily blood-glucose meter (FreeStyle Lite Meter kit) test once daily carvedilol 6.25 mg PO BID docusate sodium 100 mg PO BID 90 days erythromycin 0.5 inches ophthalmic (eye) QID esomeprazole magnesium 40 mg PO DAILY@0630 finasteride 5 mg PO DAILY furosemide 20 mg See Protocol PO DAILY guaifenesin ER (Mucinex) 600 mg PO BID heparin, porcine (PF) (Heparin Lock Flush (Porcine) (PF)) 50 units (5 mL) IVFLUSH TID 8 days ipratropium-albuterol 0.5 mg-3 mg(2.5 mg base)/3 mL 3 mL inhalation QID PRN lancets (FreeStyle Lancets) Use 1 lancet once a day lovastatin 10 mg PO DAILY magnesium hydroxide (Milk of Magnesia) 30 mL PO DAILY PRN meropenem 1 g IV Q8H 8 days metformin ER 500 mg PO DAILY 30 days prednisone 40 mg (2 x 20 mg) PO DAILY prednisone 60 mg (3 x 20 mg) PO DAILY sodium phosphates 19-7 gram/118 mL (Fleet Enema) 118 mL [place] DAILY PRN tamsulosin 0.4 mg PO DAILY 30 days travoprost 0.004% 1 drp ophthalmic-Right BEDTIME walker with seat and wheels Tobacco use date assessed: 05/09/23 Fall risk assessment: 1 Fall in past year Last assessed Fall Risk: 06/20/23 Dental Screening Dental Screen Date: 05/09/23 HPI HPI Comments History of Present Illness Details This is an 82-year-old male with emphysema with chronic bronchitis, paroxysmal atrial fibrillation, nonischemic cardiomyopathy and diabetes mellitus type 2 that comes today accompanied by his 2 HEARINGS REPORTER for hospital discharge follow-up with discharge date 06/18/2023 due to shortness of breath more prominent on exertion. Chest x-ray was ordered and shows a right perihilar mass and chest x-ray will be repeated. Currently oxygen dependent on 2 L of nasal cannula. Was saturating at 92% and was discharged with 95% of oxygen saturation which is what he has at the moment. White blood cells were elevated and will be repeated he is on prednisone therefore was instructed that wait 2 weeks after completing prednisone for labs. He follows with pulmonology at [facility] but will like to follow at [facility] pulmonology. I will add Incruse. Has atrial fibrillation on chronic anticoagulation and the goal is heart rate control. Has not gain 5 lb in a week. On carvedilol for his nonischemic cardiomyopathy and I will decrease it due to low blood pressure today. A1c within goal and last 1 was done in April at 20. He has generalized weakness due to his shortness of breath on exertion and has difficulty walking. He will benefit from a wheelchair. [facility] Medical History (Updated 06/20/23 @ 12:19 by Olga Calzada MD) NICM (nonischemic cardiomyopathy) Swallowing problem 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 Kidney stone on left side Bronchiectasis Paroxysmal atrial fibrillation Congestive heart failure Acute and chronic respiratory failure BPH loc w urin obs/LUTS Urinary retention History of COVID-19 Chronic anticoagulation History of pneumothorax Diabetes Supplemental oxygen dependent COPD (chronic obstructive pulmonary disease) Kidney stone on left side Hearing loss JESSA (mycobacterium avium-intracellulare) Bronchiectasis Glaucoma Pure hypercholesterolemia GERD (gastroesophageal reflux disease) History of MAC infection Essential hypertension Surgical History History of transurethral resection of bladder tumor (TURBT) History of cataract surgery History of left inguinal hernia repair History of bronchoscopy History of colonoscopy History of lumbar surgery History of cystoscopy Family History Father No problems noted. Mother Medical history unknown Sister Diabetes Daughter In good health Son In good health Brother No problems noted. Social History Household Members: Other Housing: Other Housing Other:: Gianluca Martina Are you a primary critical care nurse practitioner to a significant other at home: No Do you presently have visiting nurse or other home services: No Alcohol intake: never Comment: 1:1 sitter in room Patient Tobacco Use Status: Former Tobacco user Quit Date: 10 years ago Tobacco use type: Cigarette e-Cigarette/Vaping Use: Former Use Second Hand Smoke Exposure: No Advance Directives Date on File: 02/03/22 service: No Current occupational status: retired Cognitive needs: No Hearing needs: Yes Vision needs: Yes Questionnaire Thrive Questionnaire Date Thrive assessed: 05/25/23 KELLI-7 AMB Questionnaire KELLI-7 Date KELLI - 7 assessed: 04/03/23 Source: Developed by Drs. Sudeep Estes, Ronit Brewer, Harry Carter and colleagues, with an educational sahara from [employer]. Review of Systems Const All systems reviewed & are unremarkable except as noted in HPI and below Eyes Reports no additional complaints, Denies change in vision and Denies other visual disturbances Card Denies chest pain at rest, Denies chest pain with activity, Denies edema, Denies irregular heart rhythm, Denies claudication, Denies dyspnea, Reports dyspnea on exertion, Denies orthopnea, Denies paroxysmal nocturnal dyspnea and Denies slow heart rate Resp Denies cough, Denies dyspnea and Reports dyspnea on exertion Musc Reports muscle weakness Physical exam (Primary Care) Vital Signs: Last Vital Signs Pulse 100 06/20/23 10:55 BP 100/58 L 06/20/23 10:55 Pulse Ox 95 06/20/23 10:55 Oxygen Delivery Method Nasal Cannula 06/20/23 10:55 Oxygen Flow Rate 2 06/20/23 10:55 BMI result Body Mass Index 19.7 Tobacco/Smoking Status: Tobacco use Status Tobacco use date assessed 05/09/23 06/20/23 11:02 Patient Tobacco Use Status Former Tobacco user 06/20/23 11:02 Tobacco use type Cigarette 06/20/23 11:02 e-Cigarette/Vaping Use Former Use 06/20/23 11:02 Thrive Assessment: Date of Thrive Assessment Date Thrive assessed 05/25/23 06/20/23 11:02 Const General: cooperative, ill appearing chronically and tired appearing Nutritional Appearance: cachectic Limitations: wheelchair Resp Effort & Inspection: labored Auscultation: rhonchi and wheezes Cardio Jugular venous distension: no JVD Rate: regular rate Rhythm: regular rhythm Heart sounds: S1 normal heart sound present and S2 normal heart sound present Extrem General: Yes full ROM Assessment and Plan Assessment & Plan (1) Hospital discharge follow-up: Code(s): Z09 - Encounter for follow-up examination after completed treatment for conditions other than malignant neoplasm Plan: Discharge date 06/18/2023 due to dyspnea on exertion. Was given a prednisone pack that he is still taking. (2) Paroxysmal atrial fibrillation: Comment: taking eliquis Code(s): I48.0 - Paroxysmal atrial fibrillation Plan: Continue Eliquis. Follow-up with Cardiology. (3) Emphysema with chronic bronchitis: Code(s): J44.9 - Chronic obstructive pulmonary disease, unspecified Plan: Continue long-acting inhaler. Referred to [facility] pulmonology. He does not want to go back to [facility]mon[facility]. Start Incruse. (4) Diabetes: Comment: states told has diabetes this year, no Rx yet, watching diet at this time-states glucose was 156 yesterday Code(s): E11.9 - Type 2 diabetes mellitus without complications Qualifiers: Diabetes mellitus type: type 2 Diabetes mellitus middle or intermediate school principal insulin use: without custodial use Diabetes mellitus complication status: without complication Qualified Code(s): E11.9 - Type 2 diabetes mellitus without complications Plan: Continue metformin. A1c goal is equal or less than 7%. (5) NICM (nonischemic cardiomyopathy): Comment: follows w/HCS Code(s): I42.8 - Other cardiomyopathies Plan: Decrease carvedilol. Continue diuretics. Follow-up with Cardiology. The goal is to not gain 5 lb in a week. (6) Bronchiectasis: Code(s): J47.9 - Bronchiectasis, uncomplicated Qualifiers: Bronchiectasis type: with acute exacerbation Qualified Code(s): J47.1 - Bronchiectasis with (acute) exacerbation Plan: Referred to [facility] pulmonology. Orders: Orders Complete Blood Count Auto Diff Today D64.9 - Anemia, unspecified Lipid Panel Today E78.5 - Hyperlipidemia, unspecified Microalbumin, Random (w Creat) Today E11.9 - Type 2 diabetes mellitus without complications XR chest 2V Today J47.1 - Bronchiectasis with (acute) exacerbation IRON PROFILE Today D64.9 - Anemia, unspecified Comprehensive [place]. Panel Fast Today E11.9 - Type 2 diabetes mellitus without complications NT-proBNP Today I42.8 - Other cardiomyopathies Referrals Pulmonology Referral J44.9 - Chronic obstructive pulmonary disease, unspecified, J47.1 - Bronchiectasis with (acute) exacerbation Medications: New carvedilol must administer with a meal/food 3.125 mg PO BID 180 tabs 1RF 90 days [wheelchair] As directed 1 ea 0RF I42.8 - Other cardiomyopathies, I48.0 - Paroxysmal atrial fibrillation, J44.9 - Chronic obstructive pulmonary disease, unspecified, J47.1 - Bronchiectasis with (acute) exacerbation, M51.36 - Other intervertebral disc degeneration, lumbar region, R26.89 - Other abnormalities of gait and mobility Discontinued carvedilol Discontinued Reason: Patient Completed Course 6.25 mg PO BID 60 tabs 5RF Coding Level of Care Code Est Pt Level 4 (77978) Diagnoses Hospital discharge follow-up Z09 Paroxysmal atrial fibrillation I48.0 Emphysema with chronic bronchitis J44.9 Type 2 diabetes mellitus without complication, without long-term current use of insulin E11.9 Diabetes mellitus type: type 2 Diabetes mellitus middle or intermediate school principal insulin use: without custodial use Diabetes mellitus complication status: without complication NICM (nonischemic cardiomyopathy) I42.8 Bronchiectasis with acute exacerbation J47.1 Bronchiectasis type: with acute exacerbation Time Spent (min) 30
== END 2023-06-20 11:29 | disposition home or self-care (01) ==
PROVIDERS: Visit Provider Internal Medicine
DX: I48.0 Paroxysmal atrial fibrillation (principal); J44.9 Chronic obstructive pulmonary disease, unspecified; E11.9 Type 2 diabetes mellitus without complications; I42.8 Other cardiomyopathies; J47.1 Bronchiectasis with (acute) exacerbation
CPT/HCPCS: 99214

== ENCOUNTER 2023-06-24 07:47 | Emergency (ER) | payer MEDICARE, MEDICAID, SELFPAY ==
--- NOTE | ~2023-06-24 | CT_ITS ---
EXAMINATION: CT CHEST WITHOUT CONTRAST CLINICAL INFORMATION: Question right perihilar mass COMPARISON: Previous chest x-ray most recent 06/18/[address] May 2023 TECHNIQUE: Multidetector volumetric CT imaging of the chest was done. Axial MIP volume rendering provided. Sagittal and coronal reformatted images were obtained. This CT examination was performed using dose optimization techniques as appropriate, variously including the following: *Automated exposure control *Adjustment of mA and/or kV according to patient size (this includes techniques or standardized protocols for targeted exams where dose is matched to indication/reason for exam; i.e. extremities or head) *Use of iterative reconstruction technique DLP: 268 mGy-cm FINDINGS: LUNGS: There is evidence of emphysematous changes at the lung apices. There is severe diffuse cylindrical bronchiectasis, bronchial wall thickening and peribronchial nodular opacities. There is improved consolidation/pneumonia in the bilateral lower lobes from May 2023 exam. New left upper lobe nodular opacity measuring 2.3 x 2.5 cm. This probably represents bronchopneumonia as is a new finding in such a short interval. Stable 8 mm right lower lobe nodule near the fissure probably representing a perifissural lymph node. There are other nodular opacities that may be infectious/inflammatory although difficult to be sure. Largest nodular opacity measures 1 cm in the right lower lobe axial image 27 series. No definite perihilar mass. There is mild volume loss to the right hemithorax with shift of the central mediastinal structures to the right. MEDIASTINUM: Normal heart size. Trace pericardial fluid or thickening. No enlarged hilar or mediastinal lymph nodes. Tortuous upper normal-sized thoracic aorta. Upper normal-sized pulmonary arteries. CORONARY ARTERY CALCIFICATION: Mild PLEURA: Trace left pleural effusion or pleural thickening. No right pleural effusion. AXILLA: No lymphadenopathy. UPPER ABDOMEN: Unremarkable. OSSEOUS STRUCTURES: Degenerative changes of the spine. CT/CT chest wo IV con IMPRESSION: No right hilar mass seen. Severe diffuse bronchiectasis and airways disease as described above. There is interval improvement in bronchopneumonia in the bilateral lower lobes compared to 05/30/2023 exam. New nodular opacity in the left upper lobe probably representing bronchopneumonia. Fleischner guidelines were followed.
[2023-06-24 07:51] VITALS: PULSE 121; RESP 26; O2SAT 93
--- NOTE | 2023-06-24 07:51 | ECG_ITS ---
Test Reason : SOB Blood Pressure : / mmHG Vent. Rate : 091 BPM Atrial Rate : 091 BPM P-R Int : 130 ms QRS Dur : 128 ms QT Int : 376 ms P-R-T Axes : 054 -39 -07 degrees QTc Int : 462 ms Normal sinus rhythm Left axis deviation Right bundle branch block Abnormal ECG When compared with ECG of 18-JUN-2023 11:58, No significant changes seen Referred By: Ashley Mccloud Electronically Signed By:Eduard Manning
--- NOTE | 2023-06-24 07:52 | ED_ITS ---
HPI - SOB/Dyspnea General Chief Complaint: Dyspnea Stated Complaint: SOB HX COPD Time Seen by Provider: 06/24/23 07:50 Source: patient Mode of arrival: EMS History of Present Illness HPI Narrative: 83-year-old male brought in from home on baseline oxygen for chronic lung disease and having acute onset of dyspnea after an episode of epistaxis. Patient is on chronic anticoagulation. No epistaxis at the time of arrival Related Data Home Medications ?Medication ?Instructions ?Recorded ?Confirmed albuterol sulfate 90 mcg/actuation 2 puff inhalation Q4H PRN wheezing 03/09/23 06/20/23 aerosol inhaler (Ventolin HFA) finasteride 5 mg tablet 5 mg PO DAILY 03/09/23 06/20/23 lovastatin 10 mg tablet 10 mg PO DAILY 03/09/23 06/20/23 travoprost 0.004 % eye drops 1 drp ophthalmic-Right BEDTIME 03/09/23 06/20/23 acetaminophen 325 mg tablet 650 mg PO Q6H PRN Pain 05/24/23 06/20/23 bisacodyl 10 mg rectal suppository 10 mg VA DAILY PRN Constipation 05/24/23 06/20/23 (Dulcolax (bisacodyl)) esomeprazole magnesium 40 mg 40 mg PO DAILY@0630 05/24/23 06/20/23 capsule,delayed release magnesium hydroxide 400 mg/5 mL 30 ml PO DAILY PRN Constipation 05/24/23 06/20/23 oral suspension (Milk of Magnesia) sodium phosphates 19 gram-7 118 ml VA DAILY PRN Constipation 05/24/23 06/20/23 gram/118 mL enema (Fleet Enema) Previous Rx's ?Medication ?Instructions ?Recorded walker #1 ea 03/20/22 blood-glucose meter (FreeStyle #1 ea 09/13/22 Lite Meter kit) blood sugar diagnostic (FreeStyle #100 ea 10/30/22 Lite Strips) lancets 28 gauge (FreeStyle #100 ea 10/30/22 Lancets) Anoro Ellipta 62.5 mcg-25 1 ea PO DAILY #60 ea 02/12/23 mcg/actuation powder for inhalation (umeclidinium-vilanterol) docusate sodium 100 mg capsule 100 mg PO BID 90 days #180 caps 03/13/23 tamsulosin 0.4 mg capsule 0.4 mg PO DAILY 30 days #30 caps 03/19/23 ipratropium 0.5 mg-albuterol 3 mg 3 ml inhalation QID PRN for 04/06/23 (2.5 mg base)/3 mL nebulization dyspnea #180 mL soln erythromycin 5 mg/gram (0.5 %) eye 0.5 inch ophthalmic (eye) QID #50 05/06/23 ointment grams apixaban 5 mg tablet (Eliquis) 5 mg PO BID 90 days #180 tabs 05/15/23 metformin 500 mg tablet,extended 500 mg PO DAILY 30 days #30 tabs 05/15/23 release 24 hr guaifenesin 600 mg tablet, 600 mg PO BID #20 tabs 05/22/23 extended release 12 hr (Mucinex) heparin, porcine (PF) 10 unit/mL 50 unit (5 mL) IVFLUSH TID 8 days 05/22/23 intravenous syringe (Heparin Lock #120 mL Flush (Porcine) (PF)) meropenem 1 gram intravenous 1 g IV Q8H 8 days #24 ea 05/22/23 solution furosemide 20 mg tablet 20 mg PO DAILY #0 tabs 05/29/23 prednisone 20 mg tablet 40 mg (2 x 20 mg) PO DAILY #15 tabs 05/29/23 prednisone 20 mg tablet 60 mg (3 x 20 mg) PO DAILY #12 tabs 06/18/23 carvedilol 3.125 mg tablet 3.125 mg PO BID 90 days #180 tabs 06/20/23 umeclidinium 62.5 mcg/actuation 1 inh inhalation BEDTIME 30 days 06/20/23 blister powder for inhalation #30 ea (Incruse Ellipta) wheelchair #1 ea 06/20/23 Allergies Allergy/AdvReac Type Severity Reaction Status Date / Time Penicillins [PENICILLINS] Allergy Intermediate PASSED Verified 06/24/23 07:57 OUT trazodone Allergy Intermediate tremors Verified 06/24/23 07:57 brimonidine [From Alphagan P] Allergy Unknown Verified 06/24/23 07:57 diphenhydramine Allergy Unknown Verified 06/24/23 07:57 [From Benadryl] Review of Systems 2 Review of Systems: Pertinent positives and negatives as stated in HPI [facility] Past Medical History Source: nursing notes reviewed Medical History NICM (nonischemic cardiomyopathy) Swallowing problem 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 Kidney stone on left side Bronchiectasis Paroxysmal atrial fibrillation Congestive heart failure Acute and chronic respiratory failure BPH loc w urin obs/LUTS Urinary retention History of COVID-19 Chronic anticoagulation History of pneumothorax Diabetes Supplemental oxygen dependent COPD (chronic obstructive pulmonary disease) Kidney stone on left side Hearing loss JESSA (mycobacterium avium-intracellulare) Bronchiectasis Glaucoma Pure hypercholesterolemia GERD (gastroesophageal reflux disease) History of MAC infection Essential hypertension Surgical History History of transurethral resection of bladder tumor (TURBT) History of cataract surgery History of left inguinal hernia repair History of bronchoscopy History of colonoscopy History of lumbar surgery History of cystoscopy Family History Family History Father No problems noted. Mother Medical history unknown Sister Diabetes Daughter In good health Son In good health Brother No problems noted. Social History Social History Household Members: Other Housing: Other Housing Other:: Gianluca Martina Are you a primary patient centered care specialist to a significant other at home: No Do you presently have visiting nurse or other home services: No Alcohol intake: never Comment: 1:1 sitter in room Patient Tobacco Use Status: Former Tobacco user Quit Date: 10 years ago Tobacco use type: Cigarette Smoked in Last 30 Days: No e-Cigarette/Vaping Use: Former Use Second Hand Smoke Exposure: No Advance Directives: Yes Advance Directives on File: Yes Advance Directives Date on File: 02/03/22 service: No Current occupational status: retired Cognitive needs: No Hearing needs: Yes Vision needs: Yes Physical Exam 2 Vital Signs: Vital Signs: Last Vital Signs Temp 98.4 F 06/24/23 07:55 Pulse 104 H 06/24/23 10:35 Resp 25 H 06/24/23 10:35 BP 137/73 06/24/23 10:35 Pulse Ox 93 06/24/23 10:35 O2 Del Method Nasal Cannula 06/24/23 10:35 O2 Flow Rate 4 06/24/23 10:35 Oxygen Flow Rate 4 06/24/23 07:55 BMI result Body Mass Index 20.1 VITAL SIGNS: Reviewed. GENERAL: Well developed, well nourished, in no acute distress. HEAD: Normocephalic/atraumatic EYES: PERRLA, EOMI EARS: Ext canals without abnormality NOSE: Nares patent bilateral, no observed bleeding vessel, no stigmata of bleeding noted in the anterior chamber of either nostril OROPHARYNX: no oral lesions noted, posterior pharynx clear NECK: Supple, no adenopathy LUNGS: Decreased breath sounds with expiratory wheeze, patient is tachypneic SpO2<95> on 2 L at baseline CARDIOVASCULAR: Regular rate and rhythm without noted murmurs, no JVD or lower extremity edema. ABDOMEN: Soft, non-tender, non-distended with bowel sounds. MUSCULOSKELETAL: No tenderness, deformities, or effusions noted on gross inspection. EXTREMITIES: No cyanosis, clubbing or edema. SKIN: Inspection of the skin reveals no rashes NEUROLOGIC: Alert and oriented x 4. Strength and sensation to light touch were grossly intact x 4. Medications Administered Discontinued Medications Generic Name Dose Route Start Last Admin Trade Name Freq PRN Reason Stop Dose Admin Albuterol Sulfate 7.5 mg/ 0 mg 06/24/23 07:53 06/24/23 07:59 Albuterol/Ipratropium 3 ml INHALE 06/24/23 07:54 10 each ONCE ONE Administration Levalbuterol HCl 2.5 mg 06/24/23 08:31 06/24/23 08:36 Levalbuterol Hcl 1.25 Mg/3 Ml Vial.Neb INHALE 06/24/23 08:32 2.5 mg ONCE ONE Administration Methylprednisolone Sodium Succinate 125 mg 06/24/23 07:51 06/24/23 08:18 Methylprednisolone Sod Succ 125 Mg/2 Ml Vial IVPUSH 06/24/23 07:52 125 mg ONCE ONE Administration Medical Decision Making Medical Decision Making MDM Narrative: 83-year-old male with history and clinical presentation, DDX: Chronic lung disease, pneumonia, viral illness, anxiety, epistaxis INTERVENTION: ED bronch protocol, steroids. I reviewed all investigations and hematologic indices demonstrate not infectious leukocytosis in his likely secondary to steroid administration, patient is otherwise afebrile with chronic normocytic anemia and no thrombocytopenia. Coagulation studies are elevated secondary to patient's chronic use of anticoagulation. Chemistry indices do not demonstrate an TAJ or electrolyte/liver enzyme derangements. Viral testing is negative for influenza/RSV/COVID-19. I reviewed last x-ray which identifies questionable perihilar mass. Follow-up CT scan is negative for any perihilar mass, there are the typical chronic changes in otherwise my interpretation is in agreement with radiology's impression. Patient reports feeling much improved and is otherwise stable for discharge to home. Differential Diagnosis Differential Diagnoses: The differential diagnosis associated with the presentation includes Please see the discussion above Admission/Observation Consideration of admission/observation: Escalation of care including admission/observation considered Please see the discussion above Lab Data MDM Lab Attestation statement: I reviewed the patient's lab results. Please see the discussion above 06/24/23 08:10 06/24/23 08:10 Labs: Lab Results 06/24/23 06/24/23 Range/Units 08:10 10:06 WBC 17.8 H (4.8-10.8) X10*3/uL RBC 4.30 L (4.60-5.80) X10*6/uL Hgb 10.7 L (14.0-18.0) g/dl Hct 35.3 L (42.0-52.0) % MCV 82.1 (80.0-98.0) fL MCH 24.9 L (27.0-33.0) pg MCHC 30.3 L (31.0-36.0) g/dl RDW 21.8 H (11.0-16.0) % Plt Count 364 (160-400) X10*3/uL MPV 8.9 L (9.4-12.4) fL Immature Gran % (Auto) 1.6 H (0.0-0.4) % Neut % (Auto) 81.5 H (45-73) % Lymph % (Auto) 3.1 L (20-40) % Martin % (Auto) 4.7 (2-11) % Eos % (Auto) 8.9 H (0-4) % Baso % (Auto) 0.2 (0-2) % Lymph # (Auto) 0.6 L (1.2-4.9) X10*3/uL Martin # (Auto) 0.8 (0.1-1.2) X10*3/uL Eos # (Auto) 1.6 H (0.0-0.4) X10*3/uL Baso # (Auto) 0.0 (0.0-0.2) X10*3/uL Abs Immat Gran (auto) 0.28 H (0.00-0.03) X10*3/uL Absolute Neuts (auto) 14.5 H (2.0-8.3) x10*3/uL Absolute Nucleated RBC 0.000 (0.0-0.012) X10*3/uL Nucleated RBC % (auto) 0.0 (0.0-0.2) /100WBC PT 16.9 H D (11.1-13.3) SEC INR 1.4 H (0.9-1.1) VBG pH 7.48 H (7.32-7.43) VBG pCO2 44 mmHg VBG pO2 81 mmHg VBG HCO3 33 H (22-26) mmol/L VBG O2 Saturation 95.0 % VBG Base Excess 9.3 mmol/L Sodium 138 (135-145) mmol/L Potassium 3.3 (3.3-5.1) mmol/L Chloride 99 (96-108) mmol/L Carbon Dioxide 31 H (22-29) mmol/L Anion Gap 11 L (12-20) BUN 13 (9-16) mg/dL Creatinine 0.56 (0.5-1.4) mg/dL Estim Creat Clear Calc 85.0 Estimated GFR > 60 Random Glucose 105 (60-115) mg/dL Lactic Acid 0.9 (0.5-2.0) mmol/L Calcium 8.7 (8.4-10.2) mg/dL Total Bilirubin 0.3 (0.0-1.0) mg/dL AST 26 (5-37) U/L ALT 35 (0-40) U/L Alkaline Phosphatase 71 (39-117) U/L Total Protein 6.8 (6.5-8.0) g/dL Albumin 2.9 L (3.5-5.0) g/dL Influenza Type A (PCR) NEGATIVE (Negative) Influenza Type B (PCR) NEGATIVE (Negative) RSV RNA Qual (PCR) NEGATIVE (Negative) SARS-CoV-2 RNA (RT-PCR) NEGATIVE (Negative) Independent Interpretation I performed an independent interpretation of an: EKG Interpretation: Normal sinus rhythm, HR-91, no STEMI, RBBB at baseline, VA/QTC are within normal limits. Compared to EKG from 06/18/2023. Radiology Impression Discussion of test interpretation with radiology: I have reviewed the radiologist's reading. Radiologist Impression: Please see the discussion above External Record Review External record reviewed: Outpatient record, Prior outpatient labs and Prior outpatient radiology Chronic Conditions Patient?s care impacted by: Diabetes and Hypertension Critical Care Time Critical Care Time Critical Care Time: Yes Total Critical Care Time: 60 Attestation: I personally attest to this time spent taking care of the patient. Discharge Plan Discharge Clinical Impression: Chronic lung disease, Dyspnea, Epistaxis Patient Disposition: Home, Self-Care Instructions: Dyspnea (ED), Nosebleed (ED) Additional Instructions: Follow-up with your primary care doctor tomorrow Return to the ER for any worsening symptoms. Prescriptions: No Action (DME) walker Misc See Rx Instructions .Route Qty: 1 0RF Patient Comments: Pt states doesnot use Rx Instructions: with seat and wheels (DME) blood-glucose meter [FreeStyle Lite Meter] Kit See Rx Instructions .Route Qty: 1 0RF Rx Instructions: test once daily Anoro Ellipta 62.5-25 mcg/actuation blister with device 1 ea PO DAILY Qty: 60 6RF docusate sodium 100 mg capsule 100 mg PO BID 90 Days Qty: 180 1RF tamsulosin 0.4 mg capsule 0.4 mg PO DAILY 30 Days Qty: 30 2RF ipratropium-albuterol 0.5 mg-3 mg(2.5 mg base)/3 mL solution for nebulization 3 ml inhalation QID PRN (Reason: for dyspnea) Qty: 180 0RF Eliquis 5 mg tablet 5 mg PO BID 90 Days Qty: 180 0RF metformin 500 mg tablet extended release 24 hr 500 mg PO DAILY 30 Days Qty: 30 5RF erythromycin 5 mg/gram (0.5 %) ointment 0.5 inch ophthalmic (eye) QID Qty: 50 0RF prednisone 20 mg tablet 60 mg PO DAILY Qty: 12 0RF finasteride 5 mg tablet 5 mg PO DAILY lovastatin 10 mg tablet 10 mg PO DAILY travoprost 0.004 % drops 1 drp ophthalmic-Right BEDTIME albuterol sulfate [Ventolin HFA] 90 mcg/actuation HFA aerosol inhaler 2 puff INHALATION Q4H PRN (Reason: wheezing) meropenem 1 gram Recon Soln 1 g IV Q8H 8 Days Qty: 24 0RF heparin, porcine (PF) [Heparin LockFlush(Porcine)(PF)] 10 unit/mL Syringe 50 unit IVFLUSH TID 8 Days Qty: 120 0RF guaifenesin [Mucinex] 600 mg Tablet Extended Release 12hr 600 mg PO BID Qty: 20 0RF acetaminophen 325 mg Tablet 650 mg PO Q6H PRN (Reason: Pain) esomeprazole magnesium 40 mg Capsule,Delayed Release(Dr/Ec) 40 mg PO DAILY@0630 magnesium hydroxide [Milk of Magnesia] 400 mg/5 mL Suspension 30 ml PO DAILY PRN (Reason: Constipation) bisacodyl [Dulcolax (bisacodyl)] 10 mg Suppository 10 mg VA DAILY PRN (Reason: Constipation) Fleet Enema 19-7 gram/118 mL Enema 118 ml VA DAILY PRN (Reason: Constipation) furosemide 20 mg Tablet 20 mg PO DAILY Qty: 0 0RF Protocol: Hold for SBP< HOLD for SBP < : 90 prednisone 20 mg tablet 40 mg PO DAILY Qty: 15 0RF Rx Instructions: 40mg daily for 5 days then 20mg daily for 5 days (DME) FreeStyle Lite Strips Strip See Rx Instructions .Route Qty: 100 5RF Rx Instructions: test once daily (DME) lancets [FreeStyle Lancets] 28 gauge misc See Rx Instructions .Route Qty: 100 6RF Rx Instructions: Use 1 lancet once a day carvedilol 3.125 mg tablet 3.125 mg PO BID 90 Days Qty: 180 1RF Rx Instructions: must administer with a meal/food (DME) wheelchair See Rx Instructions .Route .MEDSUPPLY Qty: 1 0RF Rx Instructions: As directed Incruse Ellipta 62.5 mcg/actuation blister with device 1 inh inhalation BEDTIME 30 Days Qty: 30 0RF Print Language: Estonian
[2023-06-24 07:55] VITALS: BP 128/81; BP 140/78; PULSE 100; PULSE 94; RESP 28; TEMP 36.9; O2SAT 94; O2SAT 95; BMI 20.1
[2023-06-24] MEDS: Albuterol Sulfate 7.5 MG, Albuterol/Iprat 2.5/0.5MG 3 ML 3 ML INHALE (07:59)
[2023-06-24 08:15] LABS: MANUAL DIFF FLAG NO
[2023-06-24 08:17] LABS: Basophils Percent Auto 0.2 % (0-2); Eosinophils Absolute Auto 1.6 X10*3/uL (0.0-0.4); Eosinophils Percent Auto 8.9 % (0-4); Hematocrit 35.3 % (42.0-52.0); Hemoglobin 10.7 g/dl (14.0-18.0); Imm Gran Abs Auto 0.28 X10*3/uL (0.00-0.03); Imm Gran Pct Auto 1.6 % (0.0-0.4); Lymphocytes Absolute Auto 0.6 X10*3/uL (1.2-4.9); Lymphocytes Percent Auto 3.1 % (20-40); Mean Corpuscular HGB Conc 30.3 g/dl (31.0-36.0); Mean Corpuscular Hemoglobin 24.9 pg (27.0-33.0); Mean Corpuscular Volume 82.1 fL (80.0-98.0); Mean Platelet Volume 8.9 fL (9.4-12.4); Monocytes Absolute Auto 0.8 X10*3/uL (0.1-1.2); Monocytes Percent Auto 4.7 % (2-11); Neutrophils Absolute Auto 14.5 x10*3/uL (2.0-8.3); Neutrophils Percent Auto 81.5 % (45-73); Platelet Count 364 X10*3/uL (160-400); Red Cell Distribution Width 21.8 % (11.0-16.0); White Blood Count 17.8 X10*3/uL (4.8-10.8)
[2023-06-24] MEDS: methylPREDNISolone Sod Succ 125 MG/2 ML VIAL IVPUSH (08:18)
[2023-06-24 08:25] LABS: INTERNATIONAL NORM RATIO 1.4 (0.9-1.1); Lactic Acid 0.9 mmol/L (0.5-2.0); Prothrombin Time 16.9 SEC (11.1-13.3)
[2023-06-24 08:30] LABS: Alanine Aminotransferase 35 U/L (0-40); Albumin Level 2.9 g/dL (3.5-5.0); Alkaline Phosphatase 71 U/L (39-117); Anion Gap 11 (12-20); Aspartate Amino Transferase 26 U/L (5-37); Bilirubin Total 0.3 mg/dL (0.0-1.0); Blood Urea Nitrogen 13 mg/dL (9-16); Calcium 8.7 mg/dL (8.4-10.2); Carbon Dioxide 31 mmol/L (22-29); Chloride 99 mmol/L (96-108); Estimated Glomerular Filt Rate > 60; Glucose Random 105 mg/dL (60-115); Potassium 3.3 mmol/L (3.3-5.1); Sodium 138 mmol/L (135-145); Total Protein 6.8 g/dL (6.5-8.0)
[2023-06-24 08:36] VITALS: PULSE 104; RESP 22; O2SAT 98
[2023-06-24] MEDS: levalbuterol HCL 1.25 MG/3 ML VIAL.NEB 2.5 MG INHALE (08:36)
[2023-06-24 09:00] LABS: Influenza A PCR NEGATIVE (Negative); Influenza B PCR NEGATIVE (Negative); Resp Syncy Virus RNA Qual PCR NEGATIVE (Negative); SARS COV2 PCR INHOUSE NEGATIVE (Negative)
[2023-06-24 10:11] LABS: Venous Blood Gas Refer to POC result
[2023-06-24 10:12] LABS: VBG Base Excess 9.3 mmol/L; VBG HCO3 33 mmol/L (22-26); VBG pCO2 44 mmHg; VBG pH 7.48 (7.32-7.43); VBG pO2 81 mmHg
[2023-06-24 10:35] VITALS: BP 137/73; PULSE 104; RESP 25; O2SAT 93
[2023-06-24 13:59] VITALS: BP 137/73; PULSE 104; RESP 25; TEMP 36.9; O2SAT 93
== END 2023-06-24 13:59 | disposition home or self-care (01) ==
PROVIDERS: Emergency Provider Student in an Organized Health Care Education/Training Program; PCP Internal Medicine
DX: R06.00 Dyspnea, unspecified (principal); R04.0 Epistaxis; J98.4 Other disorders of lung; I48.0 Paroxysmal atrial fibrillation; I10 Essential (primary) hypertension; E11.9 Type 2 diabetes mellitus without complications; J44.9 Chronic obstructive pulmonary disease, unspecified; Z79.01 Long term (current) use of anticoagulants; Z88.0 Allergy status to penicillin
CPT/HCPCS: 0241U; 36415; 71250; 80053; 82803; 83605; 85025; 85610; 87040; 93005; 94640; 96374; 99284; 99285; J2919; J2930

== ENCOUNTER → 2023-06-24 07:51 | Outpatient (BNV) | payer MEDICARE, MEDICAID, SELFPAY | PROVIDERS: Emergency Provider Student in an Organized Health Care Education/Training Program; PCP Internal Medicine; Visit Provider Internal Medicine Cardiovascular Disease | DX: R94.31 Abnormal electrocardiogram [ECG] [EKG] (principal) | CPT/HCPCS: 93010 ==

== ENCOUNTER 2023-06-28 15:01 | Emergency (ER) | payer MEDICARE, MEDICAID, SELFPAY ==
--- NOTE | ~2023-06-28 | CT_ITS ---
EXAMINATION: CT ABDOMEN AND PELVIS WITH CONTRAST CLINICAL INFORMATION: Bilateral lower quadrant pain COMPARISON: Previous CT of the abdomen and pelvis May 2023. Previous chest CT 06/24/2023 TECHNIQUE: Multidetector volumetric images were obtained from the superior aspect of the liver through the pubic symphysis following administration 85 mL of Omnipaque 350 intravenous contrast. Sagittal and coronal reformatted images were obtained on the technologist's workstation. Oral contrast: Yes This CT examination was performed using dose optimization techniques as appropriate, variously including the following: *Automated exposure control *Adjustment of mA and/or kV according to patient size (this includes techniques or standardized protocols for targeted exams where dose is matched to indication/reason for exam; i.e. extremities or head) *Use of iterative reconstruction technique DLP: 347 mGy-cm FINDINGS: LUNG BASES: Severe bronchiectasis. Scattered areas of bronchial wall thickening and mucous plugging. Coalescent nodular opacities and patchy areas of consolidation at the lung bases probably representing pneumonia. This is increased in the left lower lobe from recent chest CT May 2023. LIVER, GALLBLADDER, AND BILIARY TREE: The liver is normal in size, shape, and attenuation. No focal hepatic lesion or biliary ductal dilatation is present. The gallbladder is unremarkable with no evidence of radiopaque gallstones, gallbladder wall thickening, or obvious pericholecystic inflammatory changes. PANCREAS: Unremarkable. SPLEEN: Unremarkable. ADRENAL GLANDS: Unremarkable. KIDNEYS AND URETERS: 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. Multiple left renal stones, largest measuring 7 mm in the lower pole of the left of the left moiety. Small right renal cyst. No imaging follow-up recommended. BLADDER: Unremarkable. GASTROINTESTINAL TRACT: Diverticulosis and constipation. No evidence of diverticulitis. The small and large bowel are otherwise unremarkable. The appendix is unremarkable. Small esophageal hernia. ABDOMINAL WALL: Small left inguinal hernia containing fluid. LYMPH NODES: Normal. VASCULAR: Unremarkable. PELVIC VISCERA: The prostate gland is slightly enlarged and protrudes into the base of the bladder. The prostate gland measures 4 x 4.5 cm. OSSEOUS STRUCTURES: Degenerative changes of the spine and hips. Stable sclerotic bone lesion measuring 1.3 x 2.3 cm in the right superior pubic ramus. CT/CT abdomen pelvis w IV con IMPRESSION: 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. Multiple renal stones. No hydronephrosis. Slightly enlarged prostate gland that protrudes into the base of the bladder. Constipation and diverticulosis. Worsening airspace disease disease in the left lower lobe compared to recent chest CT. Fleischner guidelines were followed.
[2023-06-28 16:04] VITALS: BP 110/54; PULSE 102; O2SAT 96
[2023-06-28 16:10] VITALS: BP 131/64; PULSE 104; RESP 20; TEMP 36.9; O2SAT 94
--- NOTE | 2023-06-28 16:13 | ED.ABDPAIN ---
HPI - Abdominal Pain General Chief Complaint: Abdominal Pain Stated Complaint: ABD PAIN FOR 1 DAY Time Seen by Provider: 06/28/23 16:06 Source: patient Mode of arrival: EMS Limitations: no limitations History of Present Illness HPI narrative: patient comes to the emergency room complaining of bilateral lower quadrant pain and supra pubic pain for 1 day. Patient denies hematuria or dysuria. Patient states that he has been urinating more than usual but patient is also on a water pill . patient denies fever chills, no more episodes of epistaxis since his last visit, no chest pain or shortness of breath. Patient denies back pain or flank pain. Denies nausea vomiting diarrhea fever or chills. Related Data Home Medications ?Medication ?Instructions ?Recorded ?Confirmed albuterol sulfate 90 mcg/actuation 2 puff inhalation Q4H PRN wheezing 03/09/23 06/20/23 aerosol inhaler (Ventolin HFA) finasteride 5 mg tablet 5 mg PO DAILY 03/09/23 06/20/23 lovastatin 10 mg tablet 10 mg PO DAILY 03/09/23 06/20/23 travoprost 0.004 % eye drops 1 drp ophthalmic-Right BEDTIME 03/09/23 06/20/23 acetaminophen 325 mg tablet 650 mg PO Q6H PRN Pain 05/24/23 06/20/23 bisacodyl 10 mg rectal suppository 10 mg SD DAILY PRN Constipation 05/24/23 06/20/23 (Dulcolax (bisacodyl)) magnesium hydroxide 400 mg/5 mL 30 ml PO DAILY PRN Constipation 05/24/23 06/20/23 oral suspension (Milk of Magnesia) sodium phosphates 19 gram-7 118 ml SD DAILY PRN Constipation 05/24/23 06/20/23 gram/118 mL enema (Fleet Enema) Previous Rx's ?Medication ?Instructions ?Recorded walker #1 ea 03/20/22 blood-glucose meter (FreeStyle #1 ea 09/13/22 Lite Meter kit) blood sugar diagnostic (FreeStyle #100 ea 10/30/22 Lite Strips) lancets 28 gauge (FreeStyle #100 ea 10/30/22 Lancets) Anoro Ellipta 62.5 mcg-25 1 ea PO DAILY #60 ea 02/12/23 mcg/actuation powder for inhalation (umeclidinium-vilanterol) docusate sodium 100 mg capsule 100 mg PO BID 90 days #180 caps 03/13/23 tamsulosin 0.4 mg capsule 0.4 mg PO DAILY 30 days #30 caps 03/19/23 ipratropium 0.5 mg-albuterol 3 mg 3 ml inhalation QID PRN for 04/06/23 (2.5 mg base)/3 mL nebulization dyspnea #180 mL soln erythromycin 5 mg/gram (0.5 %) eye 0.5 inch ophthalmic (eye) QID #50 05/06/23 ointment grams apixaban 5 mg tablet (Eliquis) 5 mg PO BID 90 days #180 tabs 05/15/23 metformin 500 mg tablet,extended 500 mg PO DAILY 30 days #30 tabs 05/15/23 release 24 hr guaifenesin 600 mg tablet, 600 mg PO BID #20 tabs 05/22/23 extended release 12 hr (Mucinex) heparin, porcine (PF) 10 unit/mL 50 unit (5 mL) IVFLUSH TID 8 days 05/22/23 intravenous syringe (Heparin Lock #120 mL Flush (Porcine) (PF)) meropenem 1 gram intravenous 1 g IV Q8H 8 days #24 ea 05/22/23 solution prednisone 20 mg tablet 40 mg (2 x 20 mg) PO DAILY #15 tabs 05/29/23 prednisone 20 mg tablet 60 mg (3 x 20 mg) PO DAILY #12 tabs 06/18/23 umeclidinium 62.5 mcg/actuation 1 inh inhalation BEDTIME 30 days 06/20/23 blister powder for inhalation #30 ea (Incruse Ellipta) wheelchair #1 ea 06/20/23 carvedilol 3.125 mg tablet 3.125 mg PO BID 90 days #180 tabs 06/27/23 furosemide 20 mg tablet 20 mg PO DAILY 90 days #90 tabs 06/27/23 omeprazole 20 mg capsule,delayed 20 mg PO DAILY 90 days #90 caps 06/27/23 release azithromycin 250 mg tablet 250 mg PO DAILY 4 days #4 tabs 06/28/23 cefuroxime axetil 250 mg tablet 250 mg PO BID #14 tabs 06/28/23 prednisone 50 mg tablet 50 mg PO DAILY #4 tabs 06/28/23 Allergies Allergy/AdvReac Type Severity Reaction Status Date / Time Penicillins [PENICILLINS] Allergy Intermediate PASSED Verified 06/28/23 16:38 OUT trazodone Allergy Intermediate tremors Verified 06/28/23 16:38 brimonidine [From Alphagan P] Allergy Unknown Verified 06/28/23 16:38 diphenhydramine Allergy Unknown Verified 06/28/23 16:38 [From Benadryl] Review of Systems Review of Systems Constitutional : No Weight loss, No Fever, No Chills, No Night Sweats, No Fatigue, No Malaise ENT/Mouth : No Hearing loss, No Ear Pain, No Nasal Congestion, No Sinus Pain, No Hoarseness, No sore throat, No Rhinorrhea, No Swallowing Difficulty Eyes: No Eye Pain, No Swelling, No Redness, No Foreign Body, No Discharge, No Vision Changes Cardiovascular : No Chest Pain, No SOB, No Dyspnea on Exertion, No Orthopnea, No Edema, No Palpitations Respiratory : No Cough, No Sputum, No Wheezing, No Smoke Exposure, No Dyspnea Gastrointestinal : No Nausea, No Vomiting, No Diarrhea, No Constipation, Complaining of bilateral lower quadrant pain and suprapubic discomfort Genitourinary : denies Dysuria, complaining of increased Frequency, No Hematuria, No Urinary Incontinence, No Urgency, No Flank Pain, No Urinary Flow Changes, No Hesitancy Musculoskeletal : No joint pain, No Myalgias, No Joint Swelling Skin : No Skin Lesions, No rash Neuro : No Weakness, No Numbness, No Paresthesias, No Loss of Consciousness, No Dizziness, No Headache Psych : No Anxiety/Panic, No Depression, No SI/HI/AH/VH, No Social Issues, Heme/Lymph: No Bruising, No Bleeding,No Lymphadenopathy Endocrine : No Polyuria, No Polydipsia, No Temperature Intolerance PMFSH Past Medical History Medical History NICM (nonischemic cardiomyopathy) Swallowing problem 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 Kidney stone on left side Bronchiectasis Paroxysmal atrial fibrillation Congestive heart failure Acute and chronic respiratory failure BPH loc w urin obs/LUTS Urinary retention History of COVID-19 Chronic anticoagulation History of pneumothorax Diabetes Supplemental oxygen dependent COPD (chronic obstructive pulmonary disease) Kidney stone on left side Hearing loss JESSA (mycobacterium avium-intracellulare) Bronchiectasis Glaucoma Pure hypercholesterolemia GERD (gastroesophageal reflux disease) History of MAC infection Essential hypertension Surgical History History of transurethral resection of bladder tumor (TURBT) History of cataract surgery History of left inguinal hernia repair History of bronchoscopy History of colonoscopy History of lumbar surgery History of cystoscopy Family History Family History Father No problems noted. Mother Medical history unknown Sister Diabetes Daughter In good health Son In good health Brother No problems noted. Social History Social History Household Members: Other Housing: Other Housing Other:: Gianluca Mack Are you a primary wild animal caretaker to a significant other at home: No Do you presently have visiting nurse or other home services: No Alcohol intake: never Comment: 1:1 sitter in room Patient Tobacco Use Status: Former Tobacco user Quit Date: 10 years ago Tobacco use type: Cigarette Smoked in Last 30 Days: No e-Cigarette/Vaping Use: Former Use Second Hand Smoke Exposure: No Use of substances other than those prescribed or required for medical reasons: No Advance Directives: Yes Advance Directives on File: Yes Advance Directives Date on File: 02/03/22 service: No Current occupational status: retired Cognitive needs: No Hearing needs: Yes Vision needs: Yes Physical Exam ED Vital Signs: Vital Signs - 24 hr 06/28/23 16:10 06/28/23 16:38 06/28/23 18:21 Temperature 98.4 F 98.2 F Pulse Rate 104 H 97 96 Respiratory Rate 20 18 20 Blood Pressure 131/64 131/64 Pulse Oximetry 94 96 Oxygen Delivery Method Nasal Cannula Room Air Oxygen Flow Rate 3 06/28/23 18:52 06/28/23 20:45 Temperature 98.4 F 97.9 F Pulse Rate 95 92 Respiratory Rate 18 19 Blood Pressure 122/68 135/73 Pulse Oximetry 96 96 Oxygen Delivery Method Room Air Nasal Cannula Oxygen Flow Rate 2 BMI result Body Mass Index 19.9 Const Other: Appearance: Alert. Oriented X3. No acute distress. Eyes: Pupils equal, round and reactive to light. ENT: Pharynx normal. Neck: Normal inspection. Neck supple. No lymph nodes noted. No crepitus CVS: Normal heart rate and rhythm. Pulses normal. Normal S1 and S2 Respiratory: No respiratory distress. Breath sounds normal. No Wheezing. No rales Abdomen: Soft , moderate tenderness to palpation in both lower quadrants and suprapubic area. No rebound or guarding,No rigidity. No distention. Skin: Skin warm and dry. Normal skin color. Normal skin turgor. Extremities: No lower extremity edema. No Lacerations. No Rash Neuro: Oriented X 3. No motor deficit. No sensory deficit. Moving all extremities. No slurred speech. CN 2 through 12 grossly intact Psych: calm, cooperative, normal affect Course Course Course Narrative: - all of patient's labs and imaging pending Medical Decision Making Medical Decision Making MDM Narrative: .- my interpretation of labs: Patient's white blood cell count 24.7, lactic acid 2.8. Patient has chronic microscopic hematuria, Patient known to be on blood thinners. patient's lactic acid 2.8, likely secondary to nebulization treatments that he has been using prior to arrival to the ED. sepsis is not suspected. - CT scan of the abdomen pelvis My interpretation: No obvious abnormality, other than horseshoe kidneys. CT scan reports new bilateral opacities, likely to be pneumonia. - Patient states that he has no worsening symptoms, patient known to have bronchiectasis. Patient will be empirically treated with p.o. antibiotics. - I was informed by the patient's nurse that patient feels a bit wheezy, patient uses albuterol schedule at home. We will go ahead and give him a nebulization treatment. - patient states that he feels much better. No abdominal pain. - Patient's oxygen saturation 94-96% on his Home dose of 3 L nasal cannula. - I was informed by our case planner Chrissy, before the patient arrived to the emergency room, his visiting nurse had called the emergency room requesting that the patient gets evaluated for short-term rehab. - Patient was ambulated around the emergency room using his oxygen, oxygen dropped to 87% however he recovers quickly once he sits down on his oxygen. - patient was offered case management, short-term rehab, patient declined, patient states that he would like to go home. Differential Diagnosis Differential Diagnoses: The differential diagnosis associated with the presentation includes ( UTI, pyelonephritis, SBO) Admission/Observation Consideration of admission/observation: Escalation of care including admission/observation considered ( given patient's past medical history and presentation, admission considered.) Lab Data MDM Lab Attestation statement: I reviewed the patient's lab results. 06/28/23 16:41 06/28/23 16:41 Labs: Lab Results 06/28/23 06/28/23 Range/Units 16:41 20:02 WBC 24.7 H (4.8-10.8) X10*3/uL RBC 3.95 L (4.60-5.80) X10*6/uL Hgb 10.3 L (14.0-18.0) g/dl Hct 33.4 L (42.0-52.0) % MCV 84.6 (80.0-98.0) fL MCH 26.1 L (27.0-33.0) pg MCHC 30.8 L (31.0-36.0) g/dl RDW 22.3 H (11.0-16.0) % Plt Count 434 H (160-400) X10*3/uL MPV 9.6 (9.4-12.4) fL Immature Gran % (Auto) 1.2 H (0.0-0.4) % Neut % (Auto) 93.3 H (45-73) % Lymph % (Auto) 2.2 L (20-40) % Moody % (Auto) 2.6 (2-11) % Eos % (Auto) 0.5 (0-4) % Baso % (Auto) 0.2 (0-2) % Lymph # (Auto) 0.6 L (1.2-4.9) X10*3/uL [place] # (Auto) 0.6 (0.1-1.2) X10*3/uL Eos # (Auto) 0.1 (0.0-0.4) X10*3/uL Baso # (Auto) 0.1 (0.0-0.2) X10*3/uL Abs Immat Gran (auto) 0.30 H (0.00-0.03) X10*3/uL Absolute Neuts (auto) 23.0 H (2.0-8.3) x10*3/uL Absolute Nucleated RBC 0.000 (0.0-0.012) X10*3/uL Nucleated RBC % (auto) 0.0 (0.0-0.2) /100WBC Smear Tech's Comments VERIFIED Sodium 138 (135-145) mmol/L Potassium 3.9 (3.3-5.1) mmol/L Chloride 99 (96-108) mmol/L Carbon Dioxide 32 H (22-29) mmol/L Anion Gap 11 L (12-20) BUN 13 (9-16) mg/dL Creatinine 0.60 (0.5-1.4) mg/dL Estim Creat Clear Calc 76.2 Estimated GFR > 60 Random Glucose 177 H (60-115) mg/dL Lactic Acid 2.8 H* (0.5-2.0) mmol/L Lactic Acid F/U @ 2Hr 0.8 (0.5-2.0) mmol/L Calcium 8.7 (8.4-10.2) mg/dL Magnesium 2.0 (1.6-2.6) mg/dL Total Bilirubin 0.2 (0.0-1.0) mg/dL Direct Bilirubin < 0.2 (0.0-0.5) mg/dL AST 12 (5-37) U/L ALT 26 (0-40) U/L Alkaline Phosphatase 73 (39-117) U/L Total Protein 6.5 (6.5-8.0) g/dL Albumin 2.8 L (3.5-5.0) g/dL Urine Color Yellow Urine Appearance Clear Urine pH 7.0 (5.0-9.0) Ur Specific [place] 1.015 (1.005-1.025) Urine Protein 30 (1+) H (Neg-Trace) mg/dL Urine Glucose (UA) Negative (Negative) mg/dL Urine Ketones Negative (Negative) mg/dL Urine Blood Small (1+) H (Negative) Urine Nitrite Negative (Negative) Ur Leukocyte Esterase Negative (Negative) Urine RBC >20 H (0-2) /HPF Urine WBC 0-5 (0-5) /HPF Ur Squamous Epith Cells 0-2 (0-2) /HPF Urine Bacteria None Seen (None Seen) Hyaline Casts 0-2 (0-2) /LPF Independent Interpretation I performed an independent interpretation of an: CT Scan Radiology Impression Discussion of test interpretation with radiology: I have reviewed the radiologist's reading. Radiologist Impression: FINDINGS: LUNG BASES: Severe bronchiectasis. Scattered areas of bronchial wall thickening and mucous plugging. Coalescent nodular opacities and patchy areas of consolidation at the lung bases probably representing pneumonia. This is increased in the left lower lobe from recent chest CT May 2023. LIVER, GALLBLADDER, AND BILIARY TREE: The liver is normal in size, shape, and attenuation. No focal hepatic lesion or biliary ductal dilatation is present. The gallbladder is unremarkable with no evidence of radiopaque gallstones, gallbladder wall thickening, or obvious pericholecystic inflammatory changes. PANCREAS: Unremarkable. SPLEEN: Unremarkable. ADRENAL GLANDS: Unremarkable. KIDNEYS AND URETERS: 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. Multiple left renal stones, largest measuring 7 mm in the lower pole of the left of the left moiety. Small right renal cyst. No imaging follow-up recommended. BLADDER: Unremarkable. GASTROINTESTINAL TRACT: Diverticulosis and constipation. No evidence of diverticulitis. The small and large bowel are otherwise unremarkable. The appendix is unremarkable. Small esophageal hernia. ABDOMINAL WALL: Small left inguinal hernia containing fluid. LYMPH NODES: Normal. VASCULAR: Unremarkable. PELVIC VISCERA: The prostate gland is slightly enlarged and protrudes into the base of the bladder. The prostate gland measures 4 x 4.5 cm. OSSEOUS STRUCTURES: Degenerative changes of the spine and hips. Stable sclerotic bone lesion measuring 1.3 x 2.3 cm in the right superior pubic ramus. CT/CT abdomen pelvis w IV con IMPRESSION: 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. Multiple renal stones. No hydronephrosis. Slightly enlarged prostate gland that protrudes into the base of the bladder. Constipation and diverticulosis. Worsening airspace disease disease in the left lower lobe compared to recent chest CT. Fleischner guidelines were followed. Medications Administered Discontinued Medications Generic Name Dose Route Start Last Admin Trade Name Freq PRN Reason Stop Dose Admin Albuterol Sulfate 2.5 mg 06/28/23 18:06 06/28/23 18:21 Albuterol Sulfate (0.083%) 2.5 Mg/3 Ml Vial.Neb INHALE 06/28/23 18:07 2.5 mg ONCE ONE Administration Azithromycin 500 mg 06/28/23 20:01 06/28/23 20:44 Azithromycin 500 Mg Tablet PO 06/28/23 20:02 500 mg ONCE ONE Administration Cefuroxime Axetil 250 mg 06/28/23 20:01 06/28/23 20:44 Cefuroxime Axetil 250 Mg Tablet PO 06/28/23 20:02 250 mg ONCE ONE Administration Iohexol 100 ml 06/28/23 18:08 06/28/23 18:10 Iohexol 350 Mg/Ml 100 Ml Infus..Btl IV 06/28/23 18:09 85 ml ONCE ONE Administration Prednisone 40 mg 06/28/23 20:01 06/28/23 20:44 Prednisone 20 Mg Tablet PO 06/28/23 20:02 40 mg ONCE ONE Administration Critical Care Time Critical Care Time Critical Care Time: Yes Total Critical Care Time: 60 Attestation: I have personally provided critical care time. Time includes review of lab data, radiology results, discussion with consultants, and monitoring for potential decompensation. Intervention performed as documented. Discharge Plan Discharge Clinical Impression: Pneumonia, Abdominal pain, lower Patient Disposition: Home, Self-Care Instructions: Abdominal Pain (ED), Pneumonia (ED) Additional Instructions: Please follow-up with your primary care physician tomorrow. If you have any worsening or new symptoms, please return to the emergency room or call 911 Prescriptions: New cefuroxime axetil 250 mg tablet 250 mg PO BID Qty: 14 0RF azithromycin 250 mg tablet 250 mg PO DAILY 4 Days Qty: 4 0RF Rx Instructions: start on day 2 of therapy prednisone 50 mg tablet 50 mg PO DAILY Qty: 4 0RF No Action (DME) walker Misc See Rx Instructions .Route Qty: 1 0RF Patient Comments: Pt states doesnot use Rx Instructions: with seat and wheels (DME) blood-glucose meter [FreeStyle Lite Meter] Kit See Rx Instructions .Route Qty: 1 0RF Rx Instructions: test once daily Anoro Ellipta 62.5-25 mcg/actuation blister with device 1 ea PO DAILY Qty: 60 6RF docusate sodium 100 mg capsule 100 mg PO BID 90 Days Qty: 180 1RF tamsulosin 0.4 mg capsule 0.4 mg PO DAILY 30 Days Qty: 30 2RF ipratropium-albuterol 0.5 mg-3 mg(2.5 mg base)/3 mL solution for nebulization 3 ml inhalation QID PRN (Reason: for dyspnea) Qty: 180 0RF Eliquis 5 mg tablet 5 mg PO BID 90 Days Qty: 180 0RF metformin 500 mg tablet extended release 24 hr 500 mg PO DAILY 30 Days Qty: 30 5RF furosemide 20 mg tablet 20 mg PO DAILY 90 Days Qty: 90 0RF Protocol: Hold for SBP< HOLD for SBP < : 90 carvedilol 3.125 mg tablet 3.125 mg PO BID 90 Days Qty: 180 1RF Rx Instructions: must administer with a meal/food omeprazole 20 mg capsule,delayed release(DR/EC) 20 mg PO DAILY 90 Days Qty: 90 0RF erythromycin 5 mg/gram (0.5 %) ointment 0.5 inch ophthalmic (eye) QID Qty: 50 0RF prednisone 20 mg tablet 60 mg PO DAILY Qty: 12 0RF finasteride 5 mg tablet 5 mg PO DAILY lovastatin 10 mg tablet 10 mg PO DAILY travoprost 0.004 % drops 1 drp ophthalmic-Right BEDTIME albuterol sulfate [Ventolin HFA] 90 mcg/actuation HFA aerosol inhaler 2 puff INHALATION Q4H PRN (Reason: wheezing) meropenem 1 gram Recon Soln 1 g IV Q8H 8 Days Qty: 24 0RF heparin, porcine (PF) [Heparin LockFlush(Porcine)(PF)] 10 unit/mL Syringe 50 unit IVFLUSH TID 8 Days Qty: 120 0RF guaifenesin [Mucinex] 600 mg Tablet Extended Release 12hr 600 mg PO BID Qty: 20 0RF acetaminophen 325 mg Tablet 650 mg PO Q6H PRN (Reason: Pain) magnesium hydroxide [Milk of Magnesia] 400 mg/5 mL Suspension 30 ml PO DAILY PRN (Reason: Constipation) bisacodyl [Dulcolax (bisacodyl)] 10 mg Suppository 10 mg SD DAILY PRN (Reason: Constipation) Fleet Enema 19-7 gram/118 mL Enema 118 ml SD DAILY PRN (Reason: Constipation) prednisone 20 mg tablet 40 mg PO DAILY Qty: 15 0RF Rx Instructions: 40mg daily for 5 days then 20mg daily for 5 days (DME) FreeStyle Lite Strips Strip See Rx Instructions .Route Qty: 100 5RF Rx Instructions: test once daily (DME) lancets [FreeStyle Lancets] 28 gauge misc See Rx Instructions .Route Qty: 100 6RF Rx Instructions: Use 1 lancet once a day (DME) wheelchair See Rx Instructions .Route .MEDSUPPLY Qty: 1 0RF Rx Instructions: As directed Incruse Ellipta 62.5 mcg/actuation blister with device 1 inh inhalation BEDTIME 30 Days Qty: 30 0RF Print Language: [place]
[2023-06-28 16:38] VITALS: BP 131/64; PULSE 97; RESP 18; TEMP 36.8; O2SAT 96; BMI 19.9
--- NOTE | 2023-06-28 16:40 | PC.NURSE ---
Pt presents to ED via EMS from home. Pt reports 3 days of ABD pain and reduced urine output. Pt is on 3L O2 at baseline for COPD. Pt denies any CP, N/V/D, fevers. Pt is alert and oriented, breathing even, on his baseline O2. Skin warm and dry. VSS.
[2023-06-28 16:51] LABS: Appearance Urine Clear; Color Urine Yellow; Glucose Urine UA Negative (Negative); Leukocyte Esterase Urine Negative (Negative); Nitrite Urine Negative (Negative); Specific Gravity - Urine 1.015 (1.005-1.025); UMIC TRIGGER UACC YES; Urine Blood Small (1+) (Negative); Urine Ketones Negative (Negative); Urine Protein 30 (1+) mg/dL (Neg-Trace)
[2023-06-28 16:55] LABS: Bacteria Urine None Seen (None Seen); Hyaline Casts Urine 0-2 /LPF (0-2); RBC Urine >20 /HPF (0-2); Squamous Epithelial Cell Urine 0-2 /HPF (0-2); WBC Urine 0-5 /HPF (0-5)
[2023-06-28 17:03] LABS: Lactic Acid 2.8 mmol/L (0.5-2.0)
[2023-06-28 17:04] LABS: Basophils Absolute Auto 0.1 X10*3/uL (0.0-0.2); Basophils Percent Auto 0.2 % (0-2); Eosinophils Absolute Auto 0.1 X10*3/uL (0.0-0.4); Eosinophils Percent Auto 0.5 % (0-4); Hematocrit 33.4 % (42.0-52.0); Hemoglobin 10.3 g/dl (14.0-18.0); Imm Gran Pct Auto 1.2 % (0.0-0.4); Lymphocytes Absolute Auto 0.6 X10*3/uL (1.2-4.9); Lymphocytes Percent Auto 2.2 % (20-40); MANUAL DIFF FLAG SCAN; Mean Corpuscular HGB Conc 30.8 g/dl (31.0-36.0); Mean Corpuscular Hemoglobin 26.1 pg (27.0-33.0); Mean Corpuscular Volume 84.6 fL (80.0-98.0); Mean Platelet Volume 9.6 fL (9.4-12.4); Monocytes Absolute Auto 0.6 X10*3/uL (0.1-1.2); Monocytes Percent Auto 2.6 % (2-11); Neutrophils Percent Auto 93.3 % (45-73); Platelet Count 434 X10*3/uL (160-400); Red Blood Count 3.95 X10*6/uL (4.60-5.80); Red Cell Distribution Width 22.3 % (11.0-16.0); SCAN SMEAR FLAG 1; White Blood Count 24.7 X10*3/uL (4.8-10.8)
[2023-06-28 17:33] LABS: Alanine Aminotransferase 26 U/L (0-40); Albumin Level 2.8 g/dL (3.5-5.0); Alkaline Phosphatase 73 U/L (39-117); Anion Gap 11 (12-20); Aspartate Amino Transferase 12 U/L (5-37); Bilirubin Direct < 0.2 mg/dL (0.0-0.5); Bilirubin Total 0.2 mg/dL (0.0-1.0); Blood Urea Nitrogen 13 mg/dL (9-16); Calcium 8.7 mg/dL (8.4-10.2); Carbon Dioxide 32 mmol/L (22-29); Chloride 99 mmol/L (96-108); Creatinine Clr Calc Pharmacy 76.2; Estimated Glomerular Filt Rate > 60; Glucose Random 177 mg/dL (60-115); Potassium 3.9 mmol/L (3.3-5.1); Sodium 138 mmol/L (135-145); Total Protein 6.5 g/dL (6.5-8.0)
[2023-06-28 17:47] LABS: SLIDE REVIEW VERIFIED
[2023-06-28] MEDS: iohexoL 350 MG/ML 100 ML INFUS..BTL IV (18:10)
[2023-06-28 18:21] VITALS: PULSE 96; RESP 20; O2SAT 95
[2023-06-28] MEDS: Albuterol Sulfate (0.083%) 2.5 MG/3 ML VIAL.NEB INHALE (18:21)
[2023-06-28 18:46] LABS: Reflex Lactate? Lactic Acid Added
[2023-06-28 18:52] VITALS: BP 122/68; PULSE 95; RESP 18; TEMP 36.9; O2SAT 96
[2023-06-28 20:26] LABS: ~Lactic Acid-LAB USE ONLY 0.8 mmol/L (0.5-2.0)
[2023-06-28] MEDS: predniSONE 20 MG TABLET 40 MG PO (20:44)
[2023-06-28] MEDS: Azithromycin 500 MG TABLET PO (20:44)
[2023-06-28] MEDS: cefuroxime axetiL 250 MG TABLET PO (20:44)
[2023-06-28 20:45] VITALS: BP 135/73; PULSE 92; RESP 19; TEMP 36.6; O2SAT 96
--- NOTE | 2023-06-28 21:00 | PC.NURSE ---
Addendum entered by Rochelle Corcoran 06/28/23 21:52: Per MD's orders* Original Note: Pt MDs orders, RN and tech attempted to walk pt with walker on his baseline O2 to see if further PT/case mngment needed. Pt able to walk with walker, did have brief episodes of desat to 88-90%. Pt reported he felt fatigued overall. When asked, pt did not want rehab or short term care, pt wants to go home. notfied.
--- NOTE | 2023-06-28 21:52 | PC.NURSE ---
Pt denies any pain at this time, resting comfortably in bed waiting for ambulance to bring him home.
--- NOTE | 2023-06-29 00:18 | PC.NURSE ---
EMS at bedside for transport to facility.
== END 2023-06-28 23:45 | disposition home or self-care (01) ==
PROVIDERS: Emergency Provider Emergency Medicine; PCP Internal Medicine
DX: R10.30 Lower abdominal pain, unspecified (principal); J18.9 Pneumonia, unspecified organism; R31.29 Other microscopic hematuria; I10 Essential (primary) hypertension; I48.0 Paroxysmal atrial fibrillation; Z79.01 Long term (current) use of anticoagulants
CPT/HCPCS: 36415; 74177; 80048; 80076; 81001; 83605; 83735; 85025; 87040; 87077; 87186; 87205; 99284; Q9967

== ENCOUNTER 2023-06-29 01:10 | Inpatient (IN) | payer MEDICARE, MEDICAID, SELFPAY ==
[2023-06-29] VITALS (15 sets, daily range): BP systolic 119–159; BP diastolic 65–82; PULSE 84–107; RESP 17–28; TEMP 36.2–36.9; O2SAT 93–99; BMI 27.4
--- NOTE | ~2023-06-29 | XR_ITS ---
EXAMINATION: XR chest 1V CLINICAL INFORMATION: Shortness of breath COMPARISON: Prior chest x-ray 06/18/2023 TECHNIQUE: Single portable frontal view. Tubes and lines: None Lungs and pleura: Redemonstration of patchy interstitial opacities over the entire lungs diffuse infiltrates unchanged. Heart and mediastinum: Widened mediastinum unchanged. The prominent right westley.. Bones/soft tissue: Skeletal structures included are normal for patient's age. XR/XR chest 1V IMPRESSION: 1. Redemonstration of diffuse interstitial opacities over the entire lungs unchanged. 2. Widened mediastinum unchanged. 3. Prominent right westley.
--- NOTE | 2023-06-29 01:38 | MHC.EDTECH ---
patient belonging list completed as patient states he lost keys here. Patient asked for sandwich and soda. Food and drink given.
[2023-06-29 02:27] LABS: Basophils Percent Auto 0.2 % (0-2); Eosinophils Absolute Auto 0.1 X10*3/uL (0.0-0.4); Eosinophils Percent Auto 0.3 % (0-4); Hematocrit 36.6 % (42.0-52.0); Hemoglobin 11.1 g/dl (14.0-18.0); Imm Gran Abs Auto 0.23 X10*3/uL (0.00-0.03); Imm Gran Pct Auto 1.3 % (0.0-0.4); Lymphocytes Absolute Auto 0.3 X10*3/uL (1.2-4.9); Lymphocytes Percent Auto 1.9 % (20-40); MANUAL DIFF FLAG SCAN; Mean Corpuscular HGB Conc 30.3 g/dl (31.0-36.0); Mean Corpuscular Hemoglobin 24.9 pg (27.0-33.0); Mean Corpuscular Volume 82.2 fL (80.0-98.0); Mean Platelet Volume 9.3 fL (9.4-12.4); Monocytes Absolute Auto 0.3 X10*3/uL (0.1-1.2); Monocytes Percent Auto 1.9 % (2-11); Neutrophils Absolute Auto 16.5 x10*3/uL (2.0-8.3); Neutrophils Percent Auto 94.4 % (45-73); Platelet Count 395 X10*3/uL (160-400); Red Blood Count 4.45 X10*6/uL (4.60-5.80); Red Cell Distribution Width 21.8 % (11.0-16.0); SCAN SMEAR FLAG 1; White Blood Count 17.5 X10*3/uL (4.8-10.8)
[2023-06-29 02:44] LABS: Lactic Acid 0.9 mmol/L (0.5-2.0)
[2023-06-29] MEDS: cefTRIAXone sodium 1 GM in 0.9 % Sodium Chloride 50 ML IV (02:44)
[2023-06-29 02:45] LABS: Anion Gap 13 (12-20); Blood Urea Nitrogen 14 mg/dL (9-16); Carbon Dioxide 31 mmol/L (22-29); Chloride 99 mmol/L (96-108); Creatinine Clr Calc Pharmacy 86.2; Estimated Glomerular Filt Rate > 60; Glucose Random 164 mg/dL (60-115); Potassium 4.6 mmol/L (3.3-5.1); Sodium 138 mmol/L (135-145)
[2023-06-29 02:52] LABS: SLIDE REVIEW VERIFIED
--- NOTE | 2023-06-29 02:54 | ED_ITS ---
HPI - General Adult General Chief complaint: General Medical Stated complaint: medical Time Seen by Provider: 06/29/23 01:33 Source: patient and EMS Mode of arrival: EMS Limitations: language barrier History of Present Illness HPI narrative: History obtained with correctional officer captain and review of old charts and CT scan. Patient seen 4 days prior with with increased shortness of breath, had a CT scan that showed old lung damage. Patient seen yesterday with dysuria and increased work of breathing. CT of abd/pelvis showed new pneumonia from 4 days ago, and stones in his left kidney with no hydro. Despite elevated WBC and new infiltrate patient was sent home. Patient returns with groin pain and increased shortness of breath Onset (ago): day(s) Related Data Home Medications ?Medication ?Instructions ?Recorded ?Confirmed albuterol sulfate 90 mcg/actuation 2 puff inhalation Q4H PRN wheezing 03/09/23 06/20/23 aerosol inhaler (Ventolin HFA) finasteride 5 mg tablet 5 mg PO DAILY 03/09/23 06/20/23 lovastatin 10 mg tablet 10 mg PO DAILY 03/09/23 06/20/23 travoprost 0.004 % eye drops 1 drp ophthalmic-Right BEDTIME 03/09/23 06/20/23 acetaminophen 325 mg tablet 650 mg PO Q6H PRN Pain 05/24/23 06/20/23 bisacodyl 10 mg rectal suppository 10 mg MT DAILY PRN Constipation 05/24/23 06/20/23 (Dulcolax (bisacodyl)) magnesium hydroxide 400 mg/5 mL 30 ml PO DAILY PRN Constipation 05/24/23 06/20/23 oral suspension (Milk of Magnesia) sodium phosphates 19 gram-7 118 ml MT DAILY PRN Constipation 05/24/23 06/20/23 gram/118 mL enema (Fleet Enema) Previous Rx's ?Medication ?Instructions ?Recorded walker #1 ea 03/20/22 blood-glucose meter (FreeStyle #1 ea 09/13/22 Lite Meter kit) blood sugar diagnostic (FreeStyle #100 ea 10/30/22 Lite Strips) lancets 28 gauge (FreeStyle #100 ea 10/30/22 Lancets) Anoro Ellipta 62.5 mcg-25 1 ea PO DAILY #60 ea 02/12/23 mcg/actuation powder for inhalation (umeclidinium-vilanterol) docusate sodium 100 mg capsule 100 mg PO BID 90 days #180 caps 03/13/23 tamsulosin 0.4 mg capsule 0.4 mg PO DAILY 30 days #30 caps 03/19/23 ipratropium 0.5 mg-albuterol 3 mg 3 ml inhalation QID PRN for 04/06/23 (2.5 mg base)/3 mL nebulization dyspnea #180 mL soln erythromycin 5 mg/gram (0.5 %) eye 0.5 inch ophthalmic (eye) QID #50 05/06/23 ointment grams apixaban 5 mg tablet (Eliquis) 5 mg PO BID 90 days #180 tabs 05/15/23 metformin 500 mg tablet,extended 500 mg PO DAILY 30 days #30 tabs 05/15/23 release 24 hr guaifenesin 600 mg tablet, 600 mg PO BID #20 tabs 05/22/23 extended release 12 hr (Mucinex) heparin, porcine (PF) 10 unit/mL 50 unit (5 mL) IVFLUSH TID 8 days 05/22/23 intravenous syringe (Heparin Lock #120 mL Flush (Porcine) (PF)) meropenem 1 gram intravenous 1 g IV Q8H 8 days #24 ea 05/22/23 solution prednisone 20 mg tablet 40 mg (2 x 20 mg) PO DAILY #15 tabs 05/29/23 prednisone 20 mg tablet 60 mg (3 x 20 mg) PO DAILY #12 tabs 06/18/23 umeclidinium 62.5 mcg/actuation 1 inh inhalation BEDTIME 30 days 06/20/23 blister powder for inhalation #30 ea ([facility]) wheelchair #1 ea 06/20/23 carvedilol 3.125 mg tablet 3.125 mg PO BID 90 days #180 tabs 06/27/23 furosemide 20 mg tablet 20 mg PO DAILY 90 days #90 tabs 06/27/23 omeprazole 20 mg capsule,delayed 20 mg PO DAILY 90 days #90 caps 06/27/23 release azithromycin 250 mg tablet 250 mg PO DAILY 4 days #4 tabs 06/28/23 cefuroxime axetil 250 mg tablet 250 mg PO BID #14 tabs 06/28/23 prednisone 50 mg tablet 50 mg PO DAILY #4 tabs 06/28/23 Allergies Allergy/AdvReac Type Severity Reaction Status Date / Time Penicillins [PENICILLINS] Allergy Intermediate PASSED Verified 06/29/23 01:35 OUT trazodone Allergy Intermediate tremors Verified 06/29/23 01:35 brimonidine [From Alphagan P] Allergy Unknown Verified 06/29/23 01:35 diphenhydramine Allergy Unknown Verified 06/29/23 01:35 [From Benadryl] Review of Systems 2 Review of Systems: Yes all other systems are reviewed and are negative Neurologic: Denies Sensory deficit (Neuro) [facility] Past Medical History Medical History NICM (nonischemic cardiomyopathy) Swallowing problem 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 Kidney stone on left side Bronchiectasis Paroxysmal atrial fibrillation Congestive heart failure Acute and chronic respiratory failure BPH loc w urin obs/LUTS Urinary retention History of COVID-19 Chronic anticoagulation History of pneumothorax Diabetes Supplemental oxygen dependent COPD (chronic obstructive pulmonary disease) Kidney stone on left side Hearing loss JESSA (mycobacterium avium-intracellulare) Bronchiectasis Glaucoma Pure hypercholesterolemia GERD (gastroesophageal reflux disease) History of MAC infection Essential hypertension Surgical History History of transurethral resection of bladder tumor (TURBT) History of cataract surgery History of left inguinal hernia repair History of bronchoscopy History of colonoscopy History of lumbar surgery History of cystoscopy Family History Family History Father No problems noted. Mother Medical history unknown Sister Diabetes Daughter In good health Son In good health Brother No problems noted. Social History Social History Household Members: Other Housing: Other Housing Other:: Gianluca Mack Are you a primary customer care consultant to a significant other at home: No Do you presently have visiting nurse or other home services: No Alcohol intake: never Comment: 1:1 sitter in room Patient Tobacco Use Status: Former Tobacco user Quit Date: 10 years ago Tobacco use type: Cigarette e-Cigarette/Vaping Use: Former Use Second Hand Smoke Exposure: No Advance Directives: Yes Advance Directives on File: Yes Advance Directives Date on File: 02/03/22 service: No Current occupational status: retired Cognitive needs: No Hearing needs: Yes Vision needs: Yes Physical Exam ED Vital Signs: Vital Signs - 24 hr 06/29/23 01:29 Temperature 98.2 F Pulse Rate 91 Respiratory Rate 18 Blood Pressure 119/79 Pulse Oximetry 94 Oxygen Delivery Method Nasal Cannula Oxygen Flow Rate 3 BMI result Body Mass Index 27.4 Const Other: cachectic frail male, short of breath, hard of hearing Orientation/consciousness: oriented to person Limitations: language barrier HENMT Head: Yes normal to inspection Ears: external ears normal General nose exam: Normal external nose present Mouth: Normal oral and palatal mucosa present and oropharynx normal Throat: Yes posterior oropharynx normal Eyes General: appearance normal, both eyes and all related structures Neck Neck: Yes normal visual inspection Chest Chest palpation & inspection: normal inspection of the chest Resp Other: diffuse rhonchi Cardio Jugular venous distension: no JVD Rate: regular rate Rhythm: regular rhythm Heart sounds: S1 normal heart sound present and S2 normal heart sound present GI Inspection: Yes normal to inspection Palpation (GI): Soft to palpation, nontender and No hepatosplenomegaly present Auscultation: normal bowel sounds General: Yes no CVA tenderness Back/Spine/Pelvis Back: no CVA tenderness Skin General skin exam: no rashes or lesions noted Neuro General: oriented to person Cranial nerves: Yes CN's II-XII intact bilaterally Motor exam (neuro): 5/5 motor strength present throughout Sensory Exam: No Sensory deficit (Neuro) Extrem General: Yes normal to inspection Psych Appearance: grossly normal Course Reevaluation(s) Reevaluation #1: with recent new infiltrates and shortness of breath and elevated WBC will admit Time: 03:00 Medications Administered Discontinued Medications Generic Name Dose Route Start Last Admin Trade Name Freq PRN Reason Stop Dose Admin Ceftriaxone Sodium 1 gm/ 50 mls @ 100 mls/hr 06/29/23 02:06 06/29/23 02:44 Sodium Chloride IV 06/29/23 02:35 100 mls/hr ONCE ONE Administration Medical Decision Making Differential Diagnosis Differential Diagnoses: The differential diagnosis associated with the presentation includes (pneumonia, uti, Copd exacerbation) Admission/Observation Consideration of admission/observation: Escalation of care including admission/observation considered (upon arrival patient considered for admission) Consult Healthcare Provider Management of the patient was discussed with: Hospitalist Lab Data [facility] Lab Attestation statement: I reviewed the patient's lab results. (elevated WBC improved from earlier, lactic acid normalized) 06/29/23 02:22 06/29/23 02:22 Labs: Lab Results 06/29/23 Range/Units 02:22 WBC 17.5 H (4.8-10.8) X10*3/uL RBC 4.45 L (4.60-5.80) X10*6/uL Hgb 11.1 L (14.0-18.0) g/dl Hct 36.6 L (42.0-52.0) % MCV 82.2 (80.0-98.0) fL MCH 24.9 L (27.0-33.0) pg MCHC 30.3 L (31.0-36.0) g/dl RDW 21.8 H (11.0-16.0) % Plt Count 395 (160-400) X10*3/uL MPV 9.3 L (9.4-12.4) fL Immature Gran % (Auto) 1.3 H (0.0-0.4) % Neut % (Auto) 94.4 H (45-73) % Lymph % (Auto) 1.9 L (20-40) % [place] % (Auto) 1.9 L (2-11) % Eos % (Auto) 0.3 (0-4) % Baso % (Auto) 0.2 (0-2) % Lymph # (Auto) 0.3 L (1.2-4.9) X10*3/uL [place] # (Auto) 0.3 (0.1-1.2) X10*3/uL Eos # (Auto) 0.1 (0.0-0.4) X10*3/uL Baso # (Auto) 0.0 (0.0-0.2) X10*3/uL Abs Immat Gran (auto) 0.23 H (0.00-0.03) X10*3/uL Absolute Neuts (auto) 16.5 H (2.0-8.3) x10*3/uL Absolute Nucleated RBC 0.000 (0.0-0.012) X10*3/uL Nucleated RBC % (auto) 0.0 (0.0-0.2) /100WBC Smear Tech's Comments VERIFIED Sodium 138 (135-145) mmol/L Potassium 4.6 (3.3-5.1) mmol/L Chloride 99 (96-108) mmol/L Carbon Dioxide 31 H (22-29) mmol/L Anion Gap 13 (12-20) BUN 14 (9-16) mg/dL Creatinine 0.65 (0.5-1.4) mg/dL Estim Creat Clear Calc 86.2 Estimated GFR > 60 Random Glucose 164 H (60-115) mg/dL Lactic Acid 0.9 (0.5-2.0) mmol/L Calcium 9.0 (8.4-10.2) mg/dL Independent Historian Clinical information obtained from an independent historian. History obtained from or confirmed by: EMS External Record Review External record reviewed: Prior outpatient labs and Prior outpatient radiology Tests considered The following testing was considered but not selected: CT of chest considered but patient had imaging [address] of abdomen showed new lower lobe infiltrates Chronic Conditions Patient?s care impacted by: Diabetes and Hypertension Social Determinants Patient?s care significantly limited by Social Determinants of Health including: Low income Discharge Plan Discharge Clinical Impression: Pneumonia, COPD exacerbation Patient Disposition: Admitted As Inpatient Print Language: Maltese
[2023-06-29] MEDS: Azithromycin 500 MG in 0.9 % Sodium Chloride 250 ML 125 MG IV (03:05)
[2023-06-29] MEDS: Albuterol/Iprat 2.5/0.5MG 3 ML AMPUL.NEB INHALE ×5 (03:48→19:41)
--- NOTE | 2023-06-29 06:03 | PC.NURSE ---
this is pt second visit here. prior visit pt seen and refused admission or pt/cm. second time patient returns only because he did not have his keys to get into his house, therefore ems brought him back to ED. pt now agreeable to admission as he is having sob, wheezing, pneumonia seen on cxr, and exacerbation of copd requiring breathing tx's. (urine and cxr done on previous visit). keys found in ems blankets upon changing/cleaning patient.
[2023-06-29] MEDS: 0.9 % Sodium Chloride Flush 3 ML SYRINGE IVFLUSH ×3 (07:22→21:51)
--- NOTE | 2023-06-29 07:24 | PC.NURSE ---
pt awake, eating breakfast. alert and oriented. Pt on 2L 02, baseline for patient. RR 22, bilateral wheezing. spo2 high 90s on 2L. IV site patent. awaiting bed assignment.
[2023-06-29] MEDS: Albuterol Sulfate (0.083%) 2.5 MG/3 ML VIAL.NEB INHALE (07:32)
--- NOTE | 2023-06-29 07:44 | PHA.MEDREC ---
Pharmacy Consult ? Medication Reconciliation Pharmacy has completed the medication reconciliation. USED LIST AND PREVIOUS DICHARGE
[2023-06-29] MEDS: polyethylene glycoL 3350 17 GM POWD.PACK PO (10:16)
[2023-06-29] MEDS: methylPREDNISolone Sod Succ 40 MG/ML VIAL IVPUSH ×2 (10:16→21:51)
--- NOTE | 2023-06-29 12:14 | PM.IMHP ---
History of Present Illness Date of Service: 06/29/23 Attending physician on admission: Marnie Huang Chief Complaint: sob 83-year-old male with multiple comorbidities including COPD- patient said he is having shortness of breath and cough and runny nose for 3-4 days, he tried his nebulizer treatments at home did not help and shortness of breath while worsening so decided to come to the hospital in addition patient was also having some abdominal pain could not clarify which area but more localized left flank area which is improved by the time I saw him. Currently patient says he is still short of breath with minimal exertion, denies any chest pain. Denies any new complaint fever or chills or nausea or vomiting or any weakness or numbness. Lab imaging reviewed: WBC improving to 17.[address] abdomen: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. Multiple renal stones. No hydronephrosis. Slightly enlarged prostate gland that protrudes into the base of the bladder. Constipation and diverticulosis. Worsening airspace disease disease in the left lower lobe compared to recent chest CT. Fleischner guidelines were followed. Patient was given nebs, antibiotics in the ED and requested admission for COPD exacerbation, pneumonia. After receiving nebs and antibiotic patient shortness of breaths -somewhat improivng Review of Systems Review of Systems: Yes all other systems are reviewed and are negative [facility] Medical History NICM (nonischemic cardiomyopathy) Swallowing problem 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 Kidney stone on left side Bronchiectasis Paroxysmal atrial fibrillation Congestive heart failure Acute and chronic respiratory failure BPH loc w urin obs/LUTS Urinary retention History of COVID-19 Chronic anticoagulation History of pneumothorax Diabetes Supplemental oxygen dependent COPD (chronic obstructive pulmonary disease) Kidney stone on left side Hearing loss JESSA (mycobacterium avium-intracellulare) Bronchiectasis Glaucoma Pure hypercholesterolemia GERD (gastroesophageal reflux disease) History of MAC infection Essential hypertension Family History Father No problems noted. Mother Medical history unknown Sister Diabetes Daughter In good health Son In good health Brother No problems noted. Surgical History History of transurethral resection of bladder tumor (TURBT) History of cataract surgery History of left inguinal hernia repair History of bronchoscopy History of colonoscopy History of lumbar surgery History of cystoscopy Social History Household Members: Other Housing: Other Housing Other:: Gianluca Mack Are you a primary account executive healthcare to a significant other at home: No Do you presently have visiting nurse or other home services: No Alcohol intake: never Comment: 1:1 sitter in room Patient Tobacco Use Status: Former Tobacco user Quit Date: 10 years ago Tobacco use type: Cigarette Smoked in Last 30 Days: No e-Cigarette/Vaping Use: Former Use Second Hand Smoke Exposure: No Use of substances other than those prescribed or required for medical reasons: No Advance Directives: Yes Advance Directives on File: Yes Advance Directives Date on File: 02/03/22 Nutrition Risks: No Nutritional Risk service: No Current occupational status: retired Cognitive needs: No Hearing needs: Yes Vision needs: Yes Meds Allergies Allergy/AdvReac Type Severity Reaction Status Date / Time Penicillins [PENICILLINS] Allergy Intermediate PASSED Verified 06/29/23 01:35 OUT trazodone Allergy Intermediate tremors Verified 06/29/23 01:35 brimonidine [From Alphagan P] Allergy Unknown Verified 06/29/23 01:35 diphenhydramine Allergy Unknown Verified 06/29/23 01:35 [From Benadryl] Active Medications: Current Medications Acetaminophen (Acetaminophen 325 Mg Tablet) 975 mg PO Q6H PRN PRN Reason: Pain and Fever Albuterol/Ipratropium (Albuterol/Iprat 2.5/0.5mg 3 Ml Ampul.Neb) 3 ml INHALE RQ4H WHILE AWAKE TON Last Admin: 06/29/23 11:08 Dose: 3 ml Albuterol/Ipratropium (Albuterol/Iprat 2.5/0.5mg 3 Ml Ampul.Neb) 3 ml INHALE Q3H PRN PRN Reason: Sob Stop: 07/02/23 17:53 Apixaban (Apixaban 5 Mg Tablet) 5 mg PO BID TON Bumetanide (Bumetanide 1 Mg Tablet) 1 mg PO DAILY TON; Protocol Carvedilol (Carvedilol 3.125 Mg Tablet) 3.125 mg PO BID TON; Protocol Docusate Sodium (Docusate Sodium 100 Mg Capsule) 100 mg PO BEDTIME TON Erythromycin (Erythromycin Base 0.5% Oph Oin 1 Gm Tube) 1.27 cm EYE-BOTH QID [facility] Finasteride (Finasteride 5 Mg Tablet) 5 mg PO DAILY [facility] Azithromycin 500 mg/ Sodium (Chloride) 250 mls @ 125 mls/hr IV Q24H [facility] Ceftriaxone Sodium 1 gm/ (Sodium Chloride) 50 mls @ 100 mls/hr IV Q24H [facility] Latanoprost (Latanoprost 0.005 % Ophth Thalia 2.5 Ml Drops) 1 drop EYE-RIGHT BEDTIME [facility] Metformin HCl (Metformin Hcl Er 500 Mg Tab.Er.24h) 500 mg PO DAILY [facility] Methylprednisolone Sodium Succinate (Methylprednisolone Sod Succ 40 Mg/Ml Vial) 40 mg IVPUSH Q12H [facility] Last Admin: 06/29/23 10:16 Dose: 40 mg Omeprazole (Omeprazole 20 Mg Capsule.Dr) 20 mg PO DAILY@0630 [facility] Polyethylene Glycol (Polyethylene Glycol 3350 17 Gm Powd.Pack) 17 gm PO DAILY [facility] Last Admin: 06/29/23 10:16 Dose: 17 gm Pravastatin Sodium (Pravastatin Sodium 10 Mg Tablet) 10 mg PO DAILY [facility] Sodium Chloride (0.9 % Sodium Chloride Flush 3 Ml Syringe) 3 ml IVFLUSH QSHIFT [facility] Last Admin: 06/29/23 07:22 Dose: 3 ml Tamsulosin HCl (Tamsulosin Hcl 0.4 Mg Capsule) 0.4 mg PO DAILY [facility] Home Medications ?Medication ?Instructions ?Recorded ?Confirmed ?Last Taken ?Type albuterol sulfate 90 mcg/actuation 2 puff inhalation Q4H PRN wheezing 03/09/23 06/29/23 Unknown History aerosol inhaler (Ventolin HFA) finasteride 5 mg tablet 5 mg PO DAILY 03/09/23 06/29/23 03/08/23 History lovastatin 10 mg tablet 10 mg PO DAILY 03/09/23 06/29/23 03/08/23 History travoprost 0.004 % eye drops 1 drp ophthalmic-Right BEDTIME 03/09/23 06/29/23 03/07/23 History azithromycin 250 mg tablet 250 mg PO DAILY 06/29/23 06/29/23 Unknown History bumetanide 1 mg tablet 1 mg PO DAILY 06/29/23 06/29/23 Unknown History prednisone 50 mg tablet 50 mg PO DAILY 06/29/23 06/29/23 Unknown History Physical Exam Vital Signs and Narrative: Vital Signs: Last Vital Signs Temp 98.1 F 06/29/23 10:17 Pulse 107 H 06/29/23 11:09 Resp 22 H 06/29/23 11:09 BP 137/77 06/29/23 10:17 Pulse Ox 99 06/29/23 10:17 O2 Del Method Nasal Cannula 06/29/23 10:17 O2 Flow Rate 3 06/29/23 10:17 BMI result Body Mass Index 27.4 Appearance: Alert.? Oriented X3.? cvs: rrr, [id number] , no murmur res: air entry diminshed ,b/l exp wheezing abd: no rebound or guarding ,nt, bs present. ext pulses present , no cyanosis . neuro: axo3 , nonfocal. Results Labs 06/29/23 02:22 06/29/23 02:22 Labs: Laboratory Results - last 24 hr 06/29/23 02:22 MCV 82.2 MCH 24.9 L MCHC 30.3 L RDW 21.8 H Plt Count 395 MPV 9.3 L Immature Gran % (Auto) 1.3 H Neut % (Auto) 94.4 H Lymph % (Auto) 1.9 L [place] % (Auto) 1.9 L Eos % (Auto) 0.3 Baso % (Auto) 0.2 Lymph # (Auto) 0.3 L [place] # (Auto) 0.3 Eos # (Auto) 0.1 Baso # (Auto) 0.0 Abs Immat Gran (auto) 0.23 H Absolute Neuts (auto) 16.5 H Absolute Nucleated RBC 0.000 Nucleated RBC % (auto) 0.0 Smear Tech's Comments VERIFIED Anion Gap 13 Estim Creat Clear Calc 86.2 Estimated GFR > 60 Random Glucose 164 H Lactic Acid 0.9 Calcium 9.0 Assessment and Plan (1) COPD exacerbation: Status: Acute (2) Pneumonia: Qualifiers: Laterality: left Pneumonia type: due to unspecified organism Lung location: lower lobe of lung Qualified Code(s): J18.9 - Pneumonia, unspecified organism Status: Acute Plan 82M PMH significant for?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 Leukocytosis trending down, cultures sent continue nebs ,steriods ,iv doxy(meropenem day 1((hx esbl ecoli). Pulmonary evaluation chronic systolic chf continue home lasix . dm insulin pafib coreg, eliquis dvt prophylaxis - eliquis Medical reconciliation is pending full code Patient will benefit from hospitalization:chronic hypoxic respiratory failure due to endstage copd/bronchiectasis exacerbation, JESSA,pneumonia-needs IV antibiotics for pneumonia, blood culture, preliminary evaluation for recurrent pneumonias in setting of end-stage COPD and recurrent pneumonias-high risk for decompensation respiratory warner considering above. Quality Stroke Does the patient have a stroke diagnosis?: No VTE Prior VTE?: No VTE Risk Level:: Medical - moderate - high VTE Device Contraindication: Treatment Not Indicated VTE Drug Contraindication: N/A - Med Ordered
[2023-06-29] MEDS: Erythromycin Base 0.5% Oph Oin 1 GM TUBE 1.27 CM EYE-BOTH (12:41)
--- NOTE | 2023-06-29 14:21 | MHC.CM.PN ---
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
[2023-06-29] MEDS: Doxycycline Hyclate 100 MG in 0.9 % Sodium Chloride 250 ML 166.67 MG IV (17:44)
[2023-06-29 18:55] LABS: Glucose, Whole Blood 180 mg/dL (60-115)
[2023-06-29 20:27] LABS: Glucose, Whole Blood 179 mg/dL (60-115)
[2023-06-29] MEDS: Latanoprost 0.005 % Ophth Sol 2.5 ML DROPS 1 DROP EYE-RIGHT (21:51)
[2023-06-29] MEDS: Apixaban 5 MG TABLET PO (21:51)
[2023-06-29] MEDS: Docusate Sodium 100 MG CAPSULE PO (21:51)
[2023-06-29] MEDS: carvediloL 3.125 MG TABLET PO (21:51)
[2023-06-29] MEDS: Insulin Lispro 100 UNIT/ML 3 ML VIAL SUBCUT (21:51)
[2023-06-30] VITALS (9 sets, daily range): BP systolic 112–140; BP diastolic 64–83; PULSE 67–90; RESP 18–20; TEMP 36.1–37; O2SAT 92–99
[2023-06-30] MEDS: Doxycycline Hyclate 100 MG in 0.9 % Sodium Chloride 250 ML 166.67 MG IV ×2 (04:55→16:57)
[2023-06-30] MEDS: Omeprazole 20 MG CAPSULE.DR PO (06:12)
[2023-06-30 06:58] LABS: Basophils Percent Auto 0.2 % (0-2); Eosinophils Percent Auto 0.1 % (0-4); Hematocrit 31.7 % (42.0-52.0); Hemoglobin 9.7 g/dl (14.0-18.0); Imm Gran Abs Auto 0.14 X10*3/uL (0.00-0.03); Imm Gran Pct Auto 1.2 % (0.0-0.4); Lymphocytes Absolute Auto 0.4 X10*3/uL (1.2-4.9); Lymphocytes Percent Auto 3.4 % (20-40); MANUAL DIFF FLAG SCAN; Mean Corpuscular HGB Conc 30.6 g/dl (31.0-36.0); Mean Corpuscular Hemoglobin 26.1 pg (27.0-33.0); Mean Corpuscular Volume 85.2 fL (80.0-98.0); Mean Platelet Volume 9.6 fL (9.4-12.4); Monocytes Absolute Auto 0.5 X10*3/uL (0.1-1.2); Neutrophils Absolute Auto 10.9 x10*3/uL (2.0-8.3); Neutrophils Percent Auto 91.1 % (45-73); Platelet Count 354 X10*3/uL (160-400); Red Blood Count 3.72 X10*6/uL (4.60-5.80); Red Cell Distribution Width 22.3 % (11.0-16.0); SCAN SMEAR FLAG 1; White Blood Count 11.9 X10*3/uL (4.8-10.8)
[2023-06-30 07:11] LABS: Alanine Aminotransferase 19 U/L (0-40); Albumin Level 2.8 g/dL (3.5-5.0); Alkaline Phosphatase 70 U/L (39-117); Anion Gap 7 (12-20); Aspartate Amino Transferase 10 U/L (5-37); Bilirubin Total 0.2 mg/dL (0.0-1.0); Blood Urea Nitrogen 12 mg/dL (9-16); Calcium 8.3 mg/dL (8.4-10.2); Carbon Dioxide 33 mmol/L (22-29); Chloride 100 mmol/L (96-108); Creatinine Clr Calc Pharmacy 96.6; Estimated Glomerular Filt Rate > 60; Glucose Random 154 mg/dL (60-115); Potassium 4.5 mmol/L (3.3-5.1); Sodium 135 mmol/L (135-145); Total Protein 6.3 g/dL (6.5-8.0)
[2023-06-30 07:12] LABS: Glucose, Whole Blood 145 mg/dL (60-115)
[2023-06-30 07:33] LABS: SLIDE REVIEW VERIFIED
[2023-06-30] MEDS: Albuterol/Iprat 2.5/0.5MG 3 ML AMPUL.NEB INHALE ×4 (08:05→20:44)
[2023-06-30] MEDS: Erythromycin Base 0.5% Oph Oin 1 GM TUBE 1.27 CM EYE-BOTH ×4 (09:50→21:06)
[2023-06-30] MEDS: Tamsulosin HCL 0.4 MG CAPSULE PO (09:53)
[2023-06-30] MEDS: Finasteride 5 MG TABLET PO (09:53)
[2023-06-30] MEDS: polyethylene glycoL 3350 17 GM POWD.PACK PO (09:53)
[2023-06-30] MEDS: methylPREDNISolone Sod Succ 40 MG/ML VIAL IVPUSH (09:53)
[2023-06-30] MEDS: Bumetanide 1 MG TABLET PO (09:53)
[2023-06-30] MEDS: Apixaban 5 MG TABLET PO ×2 (09:53→21:06)
[2023-06-30] MEDS: Pravastatin Sodium 10 MG TABLET PO (09:53)
[2023-06-30] MEDS: carvediloL 3.125 MG TABLET PO ×2 (09:53→21:05)
[2023-06-30] MEDS: 0.9 % Sodium Chloride Flush 3 ML SYRINGE IVFLUSH ×3 (09:54→21:08)
--- NOTE | 2023-06-30 10:50 | MHC.CM.PN ---
CM met with Patient's HCP/Leti @ [phone], who expressed the following concerns. Per Leti, Patient was sent home on , 06/28/2023, by ambulance and when Patient arrived home, he did not have a arnold to get in, nor access to his walker, which was inside the home. Per Leti, there was discussion regarding taking Patient to a Friend's home but Patient would not have access to his home O2 there. Leti is leaving for [place] tomorrow and returning Sunday night (07/04/2023) and she wants to be sure she will be called prior to dc. Leti states that Patient lost his house keys in the ER but now has them back and therefor also would have access to his walker, at home. CM will follow.
[2023-06-30 10:53] LABS: Glucose, Whole Blood 195 mg/dL (60-115)
--- NOTE | 2023-06-30 11:17 | PM.CNPUL ---
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 His oxygen requirements are essentially at baseline and at the time of examination he has no pulmonary complaints. In particular, he denies dyspnea. He does have leukocytosis and blood culture on day prior to admission growing Gram-negative rods. Review of Systems Constitutional: Constitutional: Denies daytime sleepiness, Denies excessive sweating, Denies fatigue, Denies fever(s), Denies lethargy, Denies malaise, Denies night sweats, Denies snoring and Denies weight loss Eyes: Eyes: Denies blurry vision and Denies itchy eyes ENT: Denies nasal congestion, Denies post nasal drip, Denies sinus pain, Denies sinus pressure and Denies other ( Thrush) Cardiovascular: Cardiovascular: Denies chest pain, Denies pedal edema, Denies dyspnea, Denies orthopnea and Denies paroxysmal nocturnal dyspnea Respiratory: Respiratory: Denies cough, Denies hemoptysis, Denies excessive phlegm production, Denies dyspnea, Denies snoring and Denies wheezing Gastrointestinal: Gastrointestinal: Denies abdominal pain and Denies heartburn Musculoskeletal: Musculoskeletal: Denies myalgias, Denies arthralgias and Denies joint swelling Integumentary/Breasts: Skin/Breast: Denies rash Neurologic: Denies memory loss and Denies seizure-like activity Psychiatric: Psychiatric: Denies abnormal sleep pattern, Denies anxiety and Denies memory loss Endocrine: Endocrine: Denies excessive sweating, Denies fatigue and Denies heat intolerance Hematologic/Lymphatic: Hematologic/Lymphatic: Denies easy bruising Allergic/Immunologic: Allergic/Immunologic: Denies itchy eyes, Denies seasonal rhinorrhea and Denies wheezing PMFSH Past Medical History Medical History (Updated 06/30/23 @ 11:30 by Brent Duenas MD) COPD (chronic obstructive pulmonary disease) NICM (nonischemic cardiomyopathy) Swallowing problem 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 Kidney stone on left side Bronchiectasis Paroxysmal atrial fibrillation Congestive heart failure Acute and chronic respiratory failure BPH loc w urin obs/LUTS Urinary retention History of COVID-19 Chronic anticoagulation History of pneumothorax Diabetes Supplemental oxygen dependent Kidney stone on left side Hearing loss JESSA (mycobacterium avium-intracellulare) Bronchiectasis Glaucoma Pure hypercholesterolemia GERD (gastroesophageal reflux disease) History of MAC infection Essential hypertension Family History Family History Father No problems noted. Mother Medical history unknown Sister Diabetes Daughter In good health Son In good health Brother No problems noted. Surgical History Surgical History History of transurethral resection of bladder tumor (TURBT) History of cataract surgery History of left inguinal hernia repair History of bronchoscopy History of colonoscopy History of lumbar surgery History of cystoscopy Social History Social History Household Members: None Housing: Apartment Housing Other:: Gianluca Mack Are you a primary caretaker to a significant other at home: No Do you presently have visiting nurse or other home services: No Alcohol intake: never Comment: 1:1 sitter in room Patient Tobacco Use Status: Former Tobacco user Quit Date: 10 years ago Tobacco use type: Cigarette e-Cigarette/Vaping Use: Former Use Second Hand Smoke Exposure: No Advance Directives Date on File: 02/03/22 service: No Current occupational status: retired Cognitive needs: No Hearing needs: Yes Vision needs: Yes Meds Allergies Allergy/AdvReac Type Severity Reaction Status Date / Time Penicillins [PENICILLINS] Allergy Intermediate PASSED Verified 06/29/23 01:35 OUT trazodone Allergy Intermediate tremors Verified 06/29/23 01:35 brimonidine [From Alphagan P] Allergy Unknown Verified 06/29/23 01:35 diphenhydramine Allergy Unknown Verified 06/29/23 01:35 [From Benadryl] Active Medications: Current Medications Acetaminophen (Acetaminophen 325 Mg Tablet) 975 mg PO Q6H PRN PRN Reason: Pain and Fever Albuterol/Ipratropium (Albuterol/Iprat 2.5/0.5mg 3 Ml Ampul.Neb) 3 ml INHALE RQ4H WHILE AWAKE [facility] Last Admin: 06/30/23 08:05 Dose: 3 ml Albuterol/Ipratropium (Albuterol/Iprat 2.5/0.5mg 3 Ml Ampul.Neb) 3 ml INHALE Q3H PRN PRN Reason: Sob Stop: 07/02/23 17:53 Apixaban (Apixaban 5 Mg Tablet) 5 mg PO BID [facility] Last Admin: 06/30/23 09:53 Dose: 5 mg Bumetanide (Bumetanide 1 Mg Tablet) 1 mg PO DAILY [facility]; Protocol Last Admin: 06/30/23 09:53 Dose: 1 mg Carvedilol (Carvedilol 3.125 Mg Tablet) 3.125 mg PO BID [facility]; Protocol Last Admin: 06/30/23 09:53 Dose: 3.125 mg Docusate Sodium (Docusate Sodium 100 Mg Capsule) 100 mg PO BEDTIME [facility] Last Admin: 06/29/23 21:51 Dose: 100 mg Erythromycin (Erythromycin Base 0.5% Oph Oin 1 Gm Tube) 1.27 cm EYE-BOTH QID [facility] Last Admin: 06/30/23 09:50 Dose: 1.27 cm Finasteride (Finasteride 5 Mg Tablet) 5 mg PO DAILY [facility] Last Admin: 06/30/23 09:53 Dose: 5 mg Glucose (Glucose Gel 15 Gm Gel..Gram.) 15 gm PO Q15M PRN; Protocol PRN Reason: per Hypoglycemia Standing Ord. Doxycycline Hyclate 100 mg/ (Sodium Chloride) 250 mls @ 166.67 mls/hr IV Q12H [facility] Last Infusion: 06/30/23 06:31 Dose: Infused Meropenem 1 gm/ Sodium (Chloride) 100 mls @ 200 mls/hr IV Q8H [facility] Last Infusion: 06/30/23 10:22 Dose: Infused Dextrose (D10) 250 mls @ 750 mls/hr IV Q15M PRN; Protocol PRN Reason: per Hypoglycemia Standing Ord. Insulin Human Lispro (Insulin Lispro 100 Unit/Ml 3 Ml Vial) 0 unit SUBCUT QIDACHS [facility]; Protocol Last Admin: 06/30/23 09:27 Dose: Not Given Latanoprost (Latanoprost 0.005 % Ophth Thalia 2.5 Ml Drops) 1 drop EYE-RIGHT BEDTIME [facility] Last Admin: 06/29/23 21:51 Dose: 1 drop Metformin HCl (Metformin Hcl Er 500 Mg Tab.Er.24h) 500 mg PO DAILY [facility] Omeprazole (Omeprazole 20 Mg Capsule.Dr) 20 mg PO DAILY@0630 [facility] Last Admin: 06/30/23 06:12 Dose: 20 mg Polyethylene Glycol (Polyethylene Glycol 3350 17 Gm Powd.Pack) 17 gm PO DAILY [facility] Last Admin: 06/30/23 09:53 Dose: 17 gm Pravastatin Sodium (Pravastatin Sodium 10 Mg Tablet) 10 mg PO DAILY [facility] Last Admin: 06/30/23 09:53 Dose: 10 mg Prednisone (Prednisone 20 Mg Tablet) 40 mg PO DAILY [facility] Sodium Chloride (0.9 % Sodium Chloride Flush 3 Ml Syringe) 3 ml IVFLUSH QSHIFT [facility] Last Admin: 06/30/23 09:54 Dose: 3 ml Tamsulosin HCl (Tamsulosin Hcl 0.4 Mg Capsule) 0.4 mg PO DAILY [facility] Last Admin: 06/30/23 09:53 Dose: 0.4 mg Home Medications ?Medication ?Instructions ?Recorded ?Confirmed ?Last Taken ?Type albuterol sulfate 90 mcg/actuation 2 puff inhalation Q4H PRN wheezing 03/09/23 06/29/23 Unknown History aerosol inhaler (Ventolin HFA) finasteride 5 mg tablet 5 mg PO DAILY 03/09/23 06/29/23 03/08/23 History lovastatin 10 mg tablet 10 mg PO DAILY 03/09/23 06/29/23 03/08/23 History travoprost 0.004 % eye drops 1 drp ophthalmic-Right BEDTIME 03/09/23 06/29/23 03/07/23 History azithromycin 250 mg tablet 250 mg PO DAILY 06/29/23 06/29/23 Unknown History bumetanide 1 mg tablet 1 mg PO DAILY 06/29/23 06/29/23 Unknown History prednisone 50 mg tablet 50 mg PO DAILY 06/29/23 06/29/23 Unknown History Physical Exam Vital Signs: Vital Signs: Last Vital Signs Temp 97.6 F 06/30/23 07:32 Pulse 89 06/30/23 08:05 Resp 20 06/30/23 08:05 BP 139/78 06/30/23 07:32 Pulse Ox 97 06/30/23 07:32 O2 Del Method Nasal Cannula 06/30/23 07:32 O2 Flow Rate 3 06/30/23 07:32 BMI result Body Mass Index 27.4 Const: General: no acute distress and alert Nutritional Appearance: not obese Orientation/consciousness: Other orientation findings ( oriented) HEENT: Head: Yes atraumatic Eyes: General: appearance normal, both eyes and all related structures Sclerae: sclerae normal EOM: EOMs intact bilaterally Neck: Neck: Yes supple Lymphatic: no lymphadenopathy noted Resp: Effort & Inspection: normal respiratory effort and no use of accessory muscles Auscultation: clear to auscultation bilaterally Cardio: Rate: regular rate Rhythm: regular rhythm Heart sounds: no gallops, no murmurs and no rubs Skin: General skin exam: other ( warm) Extrem: General: No clubbing, No cyanosis and No edema Results Laboratory Findings 06/30/23 06:25 06/30/23 06:25 Abnormal lab findings: Abnormal Labs 06/29/23 06/29/23 06/29/23 02:22 18:50 20:24 WBC 17.5 H RBC 4.45 L Hgb 11.1 L Hct 36.6 L MCH 24.9 L MCHC 30.3 L RDW 21.8 H MPV 9.3 L Immature Gran % (Auto) 1.3 H Neut % (Auto) 94.4 H Lymph % (Auto) 1.9 L [place] % (Auto) 1.9 L Lymph # (Auto) 0.3 L Abs Immat Gran (auto) 0.23 H Absolute Neuts (auto) 16.5 H Carbon Dioxide 31 H Anion Gap POC Glucose 180 H 179 H Random Glucose 164 H Calcium Total Protein Albumin 06/30/23 06/30/23 06/30/23 06:25 07:08 10:49 WBC 11.9 H RBC 3.72 L Hgb 9.7 L Hct 31.7 L MCH 26.1 L MCHC 30.6 L RDW 22.3 H MPV Immature Gran % (Auto) 1.2 H Neut % (Auto) 91.1 H Lymph % (Auto) 3.4 L [place] % (Auto) Lymph # (Auto) 0.4 L Abs Immat Gran (auto) 0.14 H Absolute Neuts (auto) 10.9 H Carbon Dioxide 33 H Anion Gap 7 L POC Glucose 145 H 195 H Random Glucose 154 H Calcium 8.3 L D Total Protein 6.3 L Albumin 2.8 L Microbiology: Microbiology 06/29/23 02:33 Blood - Venous Blood Culture - Preliminary No growth after 24 hours. 06/29/23 02:22 Blood - Venous Blood Culture - Preliminary No growth after 24 hours. Assessment and Plan (1) Gram-negative bacteremia: Status: Acute (2) Bronchiectasis: Qualifiers: Bronchiectasis type: with acute exacerbation Qualified Code(s): J47.1 - Bronchiectasis with (acute) exacerbation Status: Acute (3) COPD (chronic obstructive pulmonary disease): Qualifiers: COPD type: COPD with acute exacerbation Qualified Code(s): J44.1 - Chronic obstructive pulmonary disease with (acute) exacerbation Status: Acute (4) Chronic hypoxic respiratory failure: Status: Acute Plan Impression: 83-year-old gentleman with underlying bronchiectasis, severe COPD, prior recurrent ESBL infections including pneumonia/UTI admitted with dyspnea and abdominal pain both of which have resolved by the time of this examination. His respiratory status appears to be at baseline. He does have want blood cultures growing Gram-negative rods and is covered with meropenem. Recommendations: Continue baseline home regimen with duo nebs and Incruse. Agree with empiric coverage with med pending for underlying Gram-negative rods positive blood culture. Respiratory status is at baseline. Procedures Date of Service Date of Service: 06/30/23
[2023-06-30] MEDS: Insulin Lispro 100 UNIT/ML 3 ML VIAL SUBCUT ×2 (11:23→21:05)
--- NOTE | 2023-06-30 15:02 | P.PNIM_ITS ---
Subjective Subjective Date of Service: 06/30/23 Interval History: copd execerbation,pneumonia Review of Systems sob with minimal excersion but somewhat improving no fever or chills has cough Physical Exam 2 Vital Signs: Vital Signs: Last Vital Signs Temp 97.0 F 06/30/23 12:42 Pulse 87 06/30/23 12:42 Resp 20 06/30/23 12:42 BP 135/68 06/30/23 12:42 Pulse Ox 96 06/30/23 12:42 O2 Del Method Nasal Cannula 06/30/23 12:42 O2 Flow Rate 3 06/30/23 12:42 BMI result Body Mass Index 27.4 Appearance: Alert.? Oriented X3.? cvs: rrr, [id number] , no murmur res: air entry diminshed ,b/l exp wheezing abd: no rebound or guarding ,nt, bs present. ext pulses present , no cyanosis . neuro: axo3 , nonfocal. Objective Data Active Medications Acetaminophen (Acetaminophen 325 Mg Tablet) 975 mg PO Q6H PRN PRN Reason: Pain and Fever Albuterol/Ipratropium (Albuterol/Iprat 2.5/0.5mg 3 Ml Ampul.Neb) 3 ml INHALE RQ4H WHILE AWAKE [facility] Last Admin: 06/30/23 12:22 Dose: 3 ml Documented By: DONNA Albuterol/Ipratropium (Albuterol/Iprat 2.5/0.5mg 3 Ml Ampul.Neb) 3 ml INHALE Q3H PRN PRN Reason: Sob Stop: 07/02/23 17:53 Apixaban (Apixaban 5 Mg Tablet) 5 mg PO BID [facility] Last Admin: 06/30/23 09:53 Dose: 5 mg Documented By: SAMY Bumetanide (Bumetanide 1 Mg Tablet) 1 mg PO DAILY [facility]; Protocol Last Admin: 06/30/23 09:53 Dose: 1 mg Documented By: SAMY Carvedilol (Carvedilol 3.125 Mg Tablet) 3.125 mg PO BID [facility]; Protocol Last Admin: 06/30/23 09:53 Dose: 3.125 mg Documented By: SAMY Docusate Sodium (Docusate Sodium 100 Mg Capsule) 100 mg PO BEDTIME [facility] Last Admin: 06/29/23 21:51 Dose: 100 mg Documented By: RAYNE Erythromycin (Erythromycin Base 0.5% Oph Oin 1 Gm Tube) 1.27 cm EYE-BOTH QID [facility] Last Admin: 06/30/23 12:44 Dose: 1.27 cm Documented By: AYANNA Finasteride (Finasteride 5 Mg Tablet) 5 mg PO DAILY [facility] Last Admin: 06/30/23 09:53 Dose: 5 mg Documented By: SAMY Glucose (Glucose Gel 15 Gm Gel..Gram.) 15 gm PO Q15M PRN; Protocol PRN Reason: per Hypoglycemia Standing Ord. Doxycycline Hyclate 100 mg/ (Sodium Chloride) 250 mls @ 166.67 mls/hr IV Q12H [facility] Last Infusion: 06/30/23 06:31 Dose: Infused Documented By: KEILA Meropenem 1 gm/ Sodium (Chloride) 100 mls @ 200 mls/hr IV Q8H [facility] Last Infusion: 06/30/23 10:22 Dose: Infused Documented By: SAMY Dextrose (D10) 250 mls @ 750 mls/hr IV Q15M PRN; Protocol PRN Reason: per Hypoglycemia Standing Ord. Insulin Human Lispro (Insulin Lispro 100 Unit/Ml 3 Ml Vial) 0 unit SUBCUT QIDACHS [facility]; Protocol Last Admin: 06/30/23 11:23 Dose: 2 unit Documented By: SAMY Latanoprost (Latanoprost 0.005 % Ophth Thalia 2.5 Ml Drops) 1 drop EYE-RIGHT BEDTIME [facility] Last Admin: 06/29/23 21:51 Dose: 1 drop Documented By: RAYNE Metformin HCl (Metformin Hcl Er 500 Mg Tab.Er.24h) 500 mg PO DAILY [facility] Omeprazole (Omeprazole 20 Mg Capsule.Dr) 20 mg PO DAILY@0630 [facility] Last Admin: 06/30/23 06:12 Dose: 20 mg Documented By: KEILA Polyethylene Glycol (Polyethylene Glycol 3350 17 Gm Powd.Pack) 17 gm PO DAILY [facility] Last Admin: 06/30/23 09:53 Dose: 17 gm Documented By: SAMY Pravastatin Sodium (Pravastatin Sodium 10 Mg Tablet) 10 mg PO DAILY [facility] Last Admin: 06/30/23 09:53 Dose: 10 mg Documented By: SAMY Prednisone (Prednisone 20 Mg Tablet) 40 mg PO DAILY [facility] Sodium Chloride (0.9 % Sodium Chloride Flush 3 Ml Syringe) 3 ml IVFLUSH QSHIFT [facility] Last Admin: 06/30/23 09:54 Dose: 3 ml Documented By: SAMY Tamsulosin HCl (Tamsulosin Hcl 0.4 Mg Capsule) 0.4 mg PO DAILY [facility] Last Admin: 06/30/23 09:53 Dose: 0.4 mg Documented By: SAMY Labs 06/30/23 06:25 06/30/23 06:25 Labs: Laboratory Results - last 24 hr 06/29/23 06/29/23 06/30/23 18:50 20:24 06:25 MCV 85.2 MCH 26.1 L MCHC 30.6 L RDW 22.3 H Plt Count 354 MPV 9.6 Immature Gran % (Auto) 1.2 H Neut % (Auto) 91.1 H Lymph % (Auto) 3.4 L [place] % (Auto) 4.0 Eos % (Auto) 0.1 Baso % (Auto) 0.2 Lymph # (Auto) 0.4 L [place] # (Auto) 0.5 Eos # (Auto) 0.0 Baso # (Auto) 0.0 Abs Immat Gran (auto) 0.14 H Absolute Neuts (auto) 10.9 H Absolute Nucleated RBC 0.000 Nucleated RBC % (auto) 0.0 Smear Tech's Comments VERIFIED Anion Gap 7 L Estim Creat Clear Calc 96.6 Estimated GFR > 60 POC Glucose 180 H 179 H Random Glucose 154 H Calcium 8.3 L D Total Bilirubin 0.2 AST 10 ALT 19 Alkaline Phosphatase 70 Total Protein 6.3 L Albumin 2.8 L 06/30/23 06/30/23 07:08 10:49 MCV MCH MCHC RDW Plt Count MPV Immature Gran % (Auto) Neut % (Auto) Lymph % (Auto) [place] % (Auto) Eos % (Auto) Baso % (Auto) Lymph # (Auto) [place] # (Auto) Eos # (Auto) Baso # (Auto) Abs Immat Gran (auto) Absolute Neuts (auto) Absolute Nucleated RBC Nucleated RBC % (auto) Smear Tech's Comments Anion Gap Estim Creat Clear Calc Estimated GFR POC Glucose 145 H 195 H Random Glucose Calcium Total Bilirubin AST ALT Alkaline Phosphatase Total Protein Albumin Microbiology Microbiology Results: Microbiology 06/29/23 02:33 Blood Culture - Preliminary Blood - Venous No growth after 24 hours. 06/29/23 02:22 Blood Culture - Preliminary Blood - Venous No growth after 24 hours. Assessment and Plan (1) COPD (chronic obstructive pulmonary disease): Status: Acute (2) Gram-negative bacteremia: Status: Acute (3) Pneumonia: Status: Acute Plan 82M PMH significant for 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, bronchiectases, ESBL pneumonia, JESSA, HFrEF, nonischemic cardiomyopathy, paroxysmal AFib on Eliquis, HTN, HLD, bls-[id number]-hhyderiyl diabetes type 2, GERD, BPH, hx nephrolithiasis, and lumbar degenerative disc disease presented to the ED with SOB and hypoxia-getting admitted for penumonia /copd execerebation chronic hypoxic respiratory failure due to endstage copd/bronchiectasis exacerbation, JESSA,pneumonia : No sepsis Tachycardia due to nebs and tachypnea possibly secondary to COPD . Leukocytosis trending down, blood cultures 03/13 :gram negative rods ( 06/27), blood cultures 06/28 pending. continue nebs ,steriods ,iv doxy(meropenem day 1((hx esbl ecoli). Pulmonary evaluation noted -continue current management. chronic systolic chf continue home lasix . dm insulin pafib coreg, eliquis dvt prophylaxis - eliquis Medical reconciliation is pending full code Patient will benefit from hospitalization:chronic hypoxic respiratory failure due to endstage copd/bronchiectasis exacerbation, EJSSA,pneumonia-needs IV antibiotics for pneumonia, blood culture, preliminary evaluation for recurrent pneumonias in setting of end-stage COPD and recurrent pneumonias-high risk for decompensation respiratory warner considering above. Quality Stroke Does the patient have a stroke diagnosis?: No VTE Prior VTE?: No VTE Risk Level:: Medical - moderate - high VTE Device Contraindication: Treatment Not Indicated VTE Drug Contraindication: N/A - Med Ordered
[2023-06-30 16:11] LABS: Glucose, Whole Blood 145 mg/dL (60-115)
[2023-06-30 20:53] LABS: Glucose, Whole Blood 187 mg/dL (60-115)
[2023-06-30] MEDS: Docusate Sodium 100 MG CAPSULE PO (21:05)
[2023-06-30] MEDS: Latanoprost 0.005 % Ophth Sol 2.5 ML DROPS 1 DROP EYE-RIGHT (21:08)
[2023-07-01] VITALS (10 sets, daily range): BP systolic 92–172; BP diastolic 50–92; PULSE 80–115; RESP 16–22; TEMP 36.1–36.6; O2SAT 86–98
[2023-07-01] MEDS: Doxycycline Hyclate 100 MG in 0.9 % Sodium Chloride 250 ML 166.67 MG IV ×2 (04:49→16:58)
[2023-07-01] MEDS: Omeprazole 20 MG CAPSULE.DR PO (06:11)
[2023-07-01 07:20] LABS: Glucose, Whole Blood 87 mg/dL (60-115)
[2023-07-01] MEDS: Albuterol/Iprat 2.5/0.5MG 3 ML AMPUL.NEB INHALE ×4 (07:32→20:04)
[2023-07-01] MEDS: carvediloL 3.125 MG TABLET PO (08:19)
[2023-07-01] MEDS: Tamsulosin HCL 0.4 MG CAPSULE PO (08:19)
[2023-07-01] MEDS: Bumetanide 1 MG TABLET PO (08:19)
[2023-07-01] MEDS: Pravastatin Sodium 10 MG TABLET PO (08:19)
[2023-07-01] MEDS: polyethylene glycoL 3350 17 GM POWD.PACK PO (08:19)
[2023-07-01] MEDS: Finasteride 5 MG TABLET PO (08:19)
[2023-07-01] MEDS: Apixaban 5 MG TABLET PO ×2 (08:20→20:37)
[2023-07-01] MEDS: predniSONE 20 MG TABLET 40 MG PO (08:20)
[2023-07-01] MEDS: 0.9 % Sodium Chloride Flush 3 ML SYRINGE IVFLUSH ×3 (08:20→20:37)
[2023-07-01] MEDS: Erythromycin Base 0.5% Oph Oin 1 GM TUBE 1.27 CM EYE-BOTH ×3 (08:26→20:36)
[2023-07-01] MEDS: Magnesium Sulfate/D5W 1 GM/100 ML PIGGYBACK IV (08:33)
--- NOTE | 2023-07-01 09:20 | PC.NURSE ---
Pt c/o SOB at 0730, pt saturating 86-88% on 2L, LS dim slight expiratory wheezing, productive cough noted. Duo neb given by this RN, o2 87%-89%. MD Sequeira at bedside to assess pt, new orders entered and carried out. CXR at bedside, resp swab sent to lab, 1g mag infusing as ordered, continuous o2 monitor applied. Pt currently resting in bed, o2 92% on 3L, MD Huang aware, pt states he uses 3L at home. Pt states he does not feel SOB at this time. All safety measures in place, OPERATIONS TECHNICIAN who is HCP, Leti at bedside with pt.
[2023-07-01 09:21] LABS: Venous Blood Gas Refer to POC result
[2023-07-01 09:22] LABS: VBG Base Excess 12.5 mmol/L; VBG HCO3 36 mmol/L (22-26); VBG pCO2 44 mmHg; VBG pH 7.52 (7.32-7.43); VBG pO2 62 mmHg
--- NOTE | 2023-07-01 09:36 | PC.NURSE ---
Pt c/o SOB at 0730, At this time Duoneb given by this RN, LS dim slight wheezing noted, Pt on 2L nc 86-88%. Signh at bedside to assess pt, Pt saturating 86-87% on 2L, pt states he uses 3L at home. New orderers entered by and carried out, STAT CXR, resp pathogen sent to lab, blood gases ordered, 1g mag infusing as ordered, continuous o2 monitoring applied. Pt currently saturating at 90-92% on 3L pt states he feels less SOB, pt appears more comfortable. Pt HCP Leti at bedside. All safety measures in place.
[2023-07-01 10:07] LABS: Glucose, Whole Blood 132 mg/dL (60-115)
[2023-07-01 10:18] LABS: Adenovirus PCR Not Detected (Not Detect.); Bordetella parapertussis PCR Not Detected (Not Detect.); Bordetella pertussis PCR Not Detected (Not Detect.); Chlamydia pneumoniae PCR Not Detected (Not Detect.); Coronavirus 229E PCR Not Detected (Not Detect.); Coronavirus HKU1 PCR Not Detected (Not Detect.); Coronavirus NL63 PCR Not Detected (Not Detect.); Coronavirus OC43 PCR Not Detected (Not Detect.); Human metapneumovirus PCR Not Detected (Not Detect.); Influenza A PCR Not Detected (Not Detect.); Influenza B PCR Not Detected (Not Detect.); Mycoplasma pneumoniae PCR Not Detected (Not Detect.); Parainfluenza 1 PCR Not Detected (Not Detect.); Parainfluenza 2 PCR Not Detected (Not Detect.); Parainfluenza 3 PCR Not Detected (Not Detect.); Parainfluenza 4 PCR Not Detected (Not Detect.); RSV PCR Not Detected (Not Detect.); Rhino/Enterovirus PCR Not Detected (Not Detect.)
[2023-07-01 10:37] LABS: SARS-CoV-2 PCR Not Detected (Not Detect.)
[2023-07-01 11:12] LABS: Glucose, Whole Blood 125 mg/dL (60-115)
[2023-07-01] MEDS: guaiFENesin 200 MG/10 ML 10 ML LIQUID PO (11:54)
--- NOTE | 2023-07-01 12:06 | HO.PM.IMPN ---
Subjective Subjective Date of Service: 07/01/23 Interval History: copd execerbation,pneumonia Review of Systems sob similar to yesterday,has cough no fever or chills Physical Exam Vital Signs: Vital Signs: Last Vital Signs Temp 97.6 F 07/01/23 08:00 Pulse 80 07/01/23 11:25 Resp 18 07/01/23 11:25 BP 172/92 H 07/01/23 08:00 Pulse Ox 91 L 07/01/23 08:00 O2 Del Method Nasal Cannula 07/01/23 08:00 O2 Flow Rate 3 07/01/23 08:00 BMI result Body Mass Index 27.4 Appearance: Alert.? Oriented X3.? cvs: rrr, [id number] , no murmur res: air entry diminshed ,b/l exp wheezing abd: no rebound or guarding ,nt, bs present. ext pulses present , no cyanosis . neuro: axo3 , nonfocal. Objective Data Active Medications Acetaminophen (Acetaminophen 325 Mg Tablet) 975 mg PO Q6H PRN PRN Reason: Pain and Fever Albuterol/Ipratropium (Albuterol/Iprat 2.5/0.5mg 3 Ml Ampul.Neb) 3 ml INHALE RQ4H WHILE AWAKE [facility] Last Admin: 07/01/23 11:24 Dose: 3 ml Documented By: TYREE Albuterol/Ipratropium (Albuterol/Iprat 2.5/0.5mg 3 Ml Ampul.Neb) 3 ml INHALE Q3H PRN PRN Reason: Sob Stop: 07/02/23 17:53 Apixaban (Apixaban 5 Mg Tablet) 5 mg PO BID [facility] Last Admin: 07/01/23 08:20 Dose: 5 mg Documented By: PETRA Bumetanide (Bumetanide 1 Mg Tablet) 1 mg PO DAILY [facility]; Protocol Last Admin: 07/01/23 08:19 Dose: 1 mg Documented By: PETRA Carvedilol (Carvedilol 3.125 Mg Tablet) 3.125 mg PO BID [facility]; Protocol Last Admin: 07/01/23 08:19 Dose: 3.125 mg Documented By: PETRA Docusate Sodium (Docusate Sodium 100 Mg Capsule) 100 mg PO BEDTIME [facility] Last Admin: 06/30/23 21:05 Dose: 100 mg Documented By: ASHLIE Erythromycin (Erythromycin Base 0.5% Oph Oin 1 Gm Tube) 1.27 cm EYE-BOTH QID [facility] Last Admin: 07/01/23 08:26 Dose: 1.27 cm Documented By: PETRA Finasteride (Finasteride 5 Mg Tablet) 5 mg PO DAILY [facility] Last Admin: 07/01/23 08:19 Dose: 5 mg Documented By: PETRA Glucose (Glucose Gel 15 Gm Gel..Gram.) 15 gm PO Q15M PRN; Protocol PRN Reason: per Hypoglycemia Standing Ord. Guaifenesin (Guaifenesin 200 Mg/10 Ml 10 Ml Liquid) 10 ml PO Q4H PRN PRN Reason: Cough Last Admin: 07/01/23 11:54 Dose: 10 ml Documented By: PETRA Doxycycline Hyclate 100 mg/ (Sodium Chloride) 250 mls @ 166.67 mls/hr IV Q12H [facility] Last Infusion: 07/01/23 07:22 Dose: Infused Documented By: ASHLIE Meropenem 1 gm/ Sodium (Chloride) 100 mls @ 200 mls/hr IV Q8H [facility] Last Infusion: 07/01/23 08:48 Dose: Infused Documented By: PETRA Dextrose (D10) 250 mls @ 750 mls/hr IV Q15M PRN; Protocol PRN Reason: per Hypoglycemia Standing Ord. Insulin Human Lispro (Insulin Lispro 100 Unit/Ml 3 Ml Vial) 0 unit SUBCUT QIDACHS [facility]; Protocol Last Admin: 07/01/23 11:19 Dose: Not Given Documented By: PETRA Non-Admin Reason: No Insulin Coverage Latanoprost (Latanoprost 0.005 % Ophth Thalia 2.5 Ml Drops) 1 drop EYE-RIGHT BEDTIME [facility] Last Admin: 06/30/23 21:08 Dose: 1 drop Documented By: ASHLIE Metformin HCl (Metformin Hcl Er 500 Mg Tab.Er.24h) 500 mg PO DAILY [facility] Omeprazole (Omeprazole 20 Mg Capsule.Dr) 20 mg PO DAILY@0630 [facility] Last Admin: 07/01/23 06:11 Dose: 20 mg Documented By: JADIEL Polyethylene Glycol (Polyethylene Glycol 3350 17 Gm Powd.Pack) 17 gm PO DAILY [facility] Last Admin: 07/01/23 08:19 Dose: 17 gm Documented By: PETRA Pravastatin Sodium (Pravastatin Sodium 10 Mg Tablet) 10 mg PO DAILY [facility] Last Admin: 07/01/23 08:19 Dose: 10 mg Documented By: PETRA Prednisone (Prednisone 20 Mg Tablet) 40 mg PO DAILY [facility] Last Admin: 07/01/23 08:20 Dose: 40 mg Documented By: PETRA Sodium Chloride (0.9 % Sodium Chloride Flush 3 Ml Syringe) 3 ml IVFLUSH QSHIFT [facility] Last Admin: 07/01/23 08:20 Dose: 3 ml Documented By: PETRA Tamsulosin HCl (Tamsulosin Hcl 0.4 Mg Capsule) 0.4 mg PO DAILY [facility] Last Admin: 07/01/23 08:19 Dose: 0.4 mg Documented By: PETRA Labs 06/30/23 06:25 06/30/23 06:25 Labs: Laboratory Results - last 24 hr 06/30/23 06/30/23 07/01/23 16:07 20:42 07:15 VBG pH VBG pCO2 VBG pO2 VBG HCO3 VBG O2 Saturation VBG Base Excess POC Glucose 145 H 187 H 87 Respiratory Panel [facility] Adenovirus (Rapid PCR) B.pert (TEM-PCR) B.parapertussis DNA PCR C. pneumoniae DNA (PCR) Coronavirus OC43 (PCR) Coronavirus HKU1 (PCR) Coronavirus 229E (PCR) Coronavirus NL63 (PCR) Human Metapneumovir PCR Influenza A (RT-PCR) Influenza B (RT-PCR) M. pneumoniae (PCR) Parainfluenza 1 (PCR) Parainfluenza 2 (PCR) Parainfluenza 3 (PCR) Parainfluenza 4 (PCR) RSV (PCR) Entero/Rhino (PCR) SARS-CoV-2 RNA (RT-PCR) 07/01/23 07/01/23 07/01/23 08:50 09:13 09:58 VBG pH 7.52 H VBG pCO2 44 VBG pO2 62 VBG HCO3 36 H VBG O2 Saturation 88.0 VBG Base Excess 12.5 POC Glucose 132 H Respiratory Panel [facility] See Note Adenovirus (Rapid PCR) Not Detected B.pert (TEM-PCR) Not Detected B.parapertussis DNA PCR Not Detected C. pneumoniae DNA (PCR) Not Detected Coronavirus OC43 (PCR) Not Detected Coronavirus HKU1 (PCR) Not Detected Coronavirus 229E (PCR) Not Detected Coronavirus NL63 (PCR) Not Detected Human Metapneumovir PCR Not Detected Influenza A (RT-PCR) Not Detected Influenza B (RT-PCR) Not Detected M. pneumoniae (PCR) Not Detected Parainfluenza 1 (PCR) Not Detected Parainfluenza 2 (PCR) Not Detected Parainfluenza 3 (PCR) Not Detected Parainfluenza 4 (PCR) Not Detected RSV (PCR) Not Detected Entero/Rhino (PCR) Not Detected SARS-CoV-2 RNA (RT-PCR) Not Detected 07/01/23 11:03 VBG pH VBG pCO2 VBG pO2 VBG HCO3 VBG O2 Saturation VBG Base Excess POC Glucose 125 H Respiratory Panel [place] Adenovirus (Rapid PCR) B.pert (TEM-PCR) B.parapertussis DNA PCR C. pneumoniae DNA (PCR) Coronavirus OC43 (PCR) Coronavirus HKU1 (PCR) Coronavirus 229E (PCR) Coronavirus NL63 (PCR) Human Metapneumovir PCR Influenza A (RT-PCR) Influenza B (RT-PCR) M. pneumoniae (PCR) Parainfluenza 1 (PCR) Parainfluenza 2 (PCR) Parainfluenza 3 (PCR) Parainfluenza 4 (PCR) RSV (PCR) Entero/Rhino (PCR) SARS-CoV-2 RNA (RT-PCR) Microbiology Microbiology Results: Microbiology 06/29/23 02:33 Blood Culture - Preliminary Blood - Venous No growth after 48 hours. 06/29/23 02:22 Blood Culture - Preliminary Blood - Venous No growth after 48 hours. 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 Leukocytosis trending down, blood cultures 1/2 :ecoli(esbl)( 06/27), blood cultures 06/28 pending. continue nebs ,steriods ,iv doxy(meropenem intiated on06/28 . Pulmonary evaluation noted -continue current management. Id eval. chronic systolic chf continue home lasix . dm insulin pafib coreg, eliquis dvt prophylaxis - eliquis Medical reconciliation is pending full code Patient will benefit from hospitalization:chronic hypoxic respiratory failure due to endstage copd/bronchiectasis exacerbation, JESSA,pneumonia-needs IV antibiotics for pneumonia, blood culture-esbl bacteremia -requires iv meropenem, preliminary evaluation for recurrent pneumonias in setting of end-stage COPD and recurrent pneumonias-high risk for decompensation respiratory warner considering above. Ic eval for esbl. Quality Stroke Does the patient have a stroke diagnosis?: No VTE Prior VTE?: No VTE Risk Level:: Medical - moderate - high VTE Device Contraindication: Treatment Not Indicated VTE Drug Contraindication: N/A - Med Ordered
--- NOTE | 2023-07-01 12:35 | PC.NURSE ---
Addendum entered by Aracelis Avalos RN 07/01/23 12:40: Pt saturating 91% on 3L nc, denies SOB at this time, states he feels better than this morning. Original Note: Pt c/o SOB at 07:30, LS dim slight wheezing, o2 96% on 2 L, this RN gave pt scheduled Duoneb at 07:32. MD Huang at bedside to assess pt, pt continues to endorse SOB, pt states wears 3L nc at home, o2 increased to 3L. Pt saturating 90-93% on 3L. New orders entered by and carried out, STAT CXR, blood gases, continuous o2 monitoring, 1g mag ordered infused as ordered. All safety measures in place.
[2023-07-01 16:25] LABS: Glucose, Whole Blood 231 mg/dL (60-115)
[2023-07-01] MEDS: Insulin Lispro 100 UNIT/ML 3 ML VIAL SUBCUT ×2 (16:51→20:37)
[2023-07-01 20:15] LABS: Glucose, Whole Blood 168 mg/dL (60-115)
[2023-07-01] MEDS: Docusate Sodium 100 MG CAPSULE PO (20:36)
[2023-07-02] VITALS (10 sets, daily range): BP systolic 105–142; BP diastolic 57–65; PULSE 70–85; RESP 14–22; TEMP 36.1–36.8; O2SAT 94–96
[2023-07-02] MEDS: guaiFENesin 200 MG/10 ML 10 ML LIQUID PO (01:00)
[2023-07-02] MEDS: Omeprazole 20 MG CAPSULE.DR PO (05:54)
[2023-07-02] MEDS: Doxycycline Hyclate 100 MG in 0.9 % Sodium Chloride 250 ML 166.67 MG IV (05:54)
[2023-07-02] MEDS: Albuterol/Iprat 2.5/0.5MG 3 ML AMPUL.NEB INHALE ×4 (07:16→20:20)
[2023-07-02 07:38] LABS: Glucose, Whole Blood 86 mg/dL (60-115)
[2023-07-02] MEDS: Tamsulosin HCL 0.4 MG CAPSULE PO (08:30)
[2023-07-02] MEDS: Apixaban 5 MG TABLET PO ×2 (08:30→21:33)
[2023-07-02] MEDS: Finasteride 5 MG TABLET PO (08:30)
[2023-07-02] MEDS: Pravastatin Sodium 10 MG TABLET PO (08:30)
[2023-07-02] MEDS: polyethylene glycoL 3350 17 GM POWD.PACK PO (08:30)
[2023-07-02] MEDS: predniSONE 20 MG TABLET 40 MG PO (08:30)
[2023-07-02 11:28] LABS: Glucose, Whole Blood 150 mg/dL (60-115)
--- NOTE | 2023-07-02 11:32 | HO.PM.IMPN ---
Subjective Subjective Date of Service: 07/02/23 Interval History: copd execerbation,pneumonia Review of Systems sob somewhat improving,has cough no fever or chill Physical Exam Vital Signs: Vital Signs: Last Vital Signs Temp 97.1 F 07/02/23 07:20 Pulse 79 07/02/23 11:27 Resp 16 07/02/23 11:27 BP 142/64 H 07/02/23 07:20 Pulse Ox 96 07/02/23 07:20 O2 Del Method Nasal Cannula 07/02/23 07:20 O2 Flow Rate 3 07/02/23 07:20 BMI result Body Mass Index 27.4 Appearance: Alert.? Oriented X3.? cvs: rrr, [id number] , no murmur res: air entry diminshed ,b/l exp wheezing abd: no rebound or guarding ,nt, bs present. ext pulses present , no cyanosis . neuro: axo3 , nonfocal. Objective Data Active Medications Acetaminophen (Acetaminophen 325 Mg Tablet) 975 mg PO Q6H PRN PRN Reason: Pain and Fever Albuterol/Ipratropium (Albuterol/Iprat 2.5/0.5mg 3 Ml Ampul.Neb) 3 ml INHALE RQ4H WHILE AWAKE [facility] Last Admin: 07/02/23 11:25 Dose: 3 ml Documented By: CAL Albuterol/Ipratropium (Albuterol/Iprat 2.5/0.5mg 3 Ml Ampul.Neb) 3 ml INHALE Q3H PRN PRN Reason: Sob Stop: 07/02/23 17:53 Apixaban (Apixaban 5 Mg Tablet) 5 mg PO BID [facility] Last Admin: 07/02/23 08:30 Dose: 5 mg Documented By: KIRBY Bumetanide (Bumetanide 1 Mg Tablet) 1 mg PO DAILY [facility]; Protocol Last Admin: 07/01/23 08:19 Dose: 1 mg Documented By: PETRA Carvedilol (Carvedilol 3.125 Mg Tablet) 3.125 mg PO BID [facility]; Protocol Last Admin: 07/01/23 08:19 Dose: 3.125 mg Documented By: PETRA Docusate Sodium (Docusate Sodium 100 Mg Capsule) 100 mg PO BEDTIME [facility] Last Admin: 07/01/23 20:36 Dose: 100 mg Documented By: LESA Erythromycin (Erythromycin Base 0.5% Oph Oin 1 Gm Tube) 1.27 cm EYE-BOTH QID [facility] Last Admin: 07/02/23 08:30 Dose: Not Given Documented By: KIRBY Non-Admin Reason: Patient Refused Finasteride (Finasteride 5 Mg Tablet) 5 mg PO DAILY [facility] Last Admin: 07/02/23 08:30 Dose: 5 mg Documented By: KIRBY Glucose (Glucose Gel 15 Gm Gel..Gram.) 15 gm PO Q15M PRN; Protocol PRN Reason: per Hypoglycemia Standing Ord. Guaifenesin (Guaifenesin 200 Mg/10 Ml 10 Ml Liquid) 10 ml PO Q4H PRN PRN Reason: Cough Last Admin: 07/02/23 01:00 Dose: 10 ml Documented By: LESA Doxycycline Hyclate 100 mg/ (Sodium Chloride) 250 mls @ 166.67 mls/hr IV Q12H [facility] Last Infusion: 07/02/23 07:43 Dose: Infused Documented By: KIRBY Meropenem 1 gm/ Sodium (Chloride) 100 mls @ 200 mls/hr IV Q8H [facility] Last Infusion: 07/02/23 09:28 Dose: Infused Documented By: KIRBY Dextrose (D10) 250 mls @ 750 mls/hr IV Q15M PRN; Protocol PRN Reason: per Hypoglycemia Standing Ord. Insulin Human Lispro (Insulin Lispro 100 Unit/Ml 3 Ml Vial) 0 unit SUBCUT QIDACHS [facility]; Protocol Last Admin: 07/02/23 07:39 Dose: Not Given Documented By: KIRBY Non-Admin Reason: No Insulin Coverage Latanoprost (Latanoprost 0.005 % Ophth Thalia 2.5 Ml Drops) 1 drop EYE-RIGHT BEDTIME [facility] Last Admin: 07/01/23 20:41 Dose: Not Given Documented By: LESA Non-Admin Reason: Patient Refused Metformin HCl (Metformin Hcl Er 500 Mg Tab.Er.24h) 500 mg PO DAILY [facility] Omeprazole (Omeprazole 20 Mg Capsule.Dr) 20 mg PO DAILY@0630 [facility] Last Admin: 07/02/23 05:54 Dose: 20 mg Documented By: LESA Polyethylene Glycol (Polyethylene Glycol 3350 17 Gm Powd.Pack) 17 gm PO DAILY [facility] Last Admin: 07/02/23 08:30 Dose: 17 gm Documented By: KIRBY Pravastatin Sodium (Pravastatin Sodium 10 Mg Tablet) 10 mg PO DAILY [facility] Last Admin: 07/02/23 08:30 Dose: 10 mg Documented By: KIRBY Prednisone (Prednisone 20 Mg Tablet) 40 mg PO DAILY [facility] Last Admin: 07/02/23 08:30 Dose: 40 mg Documented By: KIRBY Sodium Chloride (0.9 % Sodium Chloride Flush 3 Ml Syringe) 3 ml IVFLUSH QSHIFT [facility] Last Admin: 07/02/23 08:39 Dose: Not Given Documented By: KIRBY Non-Admin Reason: IV Running Tamsulosin HCl (Tamsulosin Hcl 0.4 Mg Capsule) 0.4 mg PO DAILY [facility] Last Admin: 07/02/23 08:30 Dose: 0.4 mg Documented By: KIRBY Labs 06/30/23 06:25 06/30/23 06:25 Labs: Laboratory Results - last 24 hr 07/01/23 07/01/23 07/02/23 16:21 20:10 07:30 POC Glucose 231 H 168 H 86 07/02/23 11:24 POC Glucose 150 H Assessment and Plan (1) COPD (chronic obstructive pulmonary disease): Status: Acute (2) Gram-negative bacteremia: Status: Acute Assessment and Plan: 82M PMH significant for 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 Leukocytosis trending down, blood cultures 1/2 :ecoli(esbl)( 06/27), blood cultures 06/28 pending. continue nebs ,steriods ,iv doxy(meropenem intiated on06/28 . Pulmonary evaluation noted -continue current management. Id eval. chronic systolic chf continue home lasix . dm insulin pafib coreg, eliquis dvt prophylaxis - eliquis Medical reconciliation is pending full code Patient will benefit from hospitalization:chronic hypoxic respiratory failure due to endstage copd/bronchiectasis exacerbation, JESSA,pneumonia-needs IV antibiotics for pneumonia, blood culture-esbl bacteremia -requires iv meropenem, preliminary evaluation for recurrent pneumonias in setting of end-stage COPD and recurrent pneumonias-high risk for decompensation respiratory warner considering above. Ic eval for esbl. Quality Stroke Does the patient have a stroke diagnosis?: No VTE Prior VTE?: No VTE Risk Level:: Medical - moderate - high VTE Device Contraindication: Treatment Not Indicated VTE Drug Contraindication: N/A - Med Ordered
--- NOTE | 2023-07-02 12:52 | MHC.CM.PN ---
EMR REVIEWED AND PER MD ROUNDS, PT IS NOT MEDICALLY CLEARED FOR DC, WILL NEED ID CONSULT TO DETERMINE PLAN. CM WILL CONTINUE TO FOLLOW FOR ANY CHANGE IN DC PLAN/NEEDS.
[2023-07-02 16:13] LABS: Glucose, Whole Blood 184 mg/dL (60-115)
--- NOTE | 2023-07-02 16:32 | W.PM.IDCN ---
History of Present Illness Data of Consult Service Date: 07/02/23 Requesting physician: Marnie Huang Primary Care Provider: Unknown Physician HPI Reason for consult: ESBL bacteremia He presents with cough two days. He has no urinary symptoms. He has urine unremarkable. He has no fever at this time. He has had ESBL in urine and sputum in the past. He has ESBL bacteremia Review of Systems Review of Systems: Yes all other systems are reviewed and are negative 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 Mother Medical history unknown Sister Diabetes Daughter In good health Son In good health Brother No problems noted. Family history: reviewed and not pertinent Surgical History Surgical History History of transurethral resection of bladder tumor (TURBT) History of cataract surgery History of left inguinal hernia repair History of bronchoscopy History of colonoscopy History of lumbar surgery History of cystoscopy Social History Social History Household Members: None Housing: Apartment Housing Other:: Gianluca Martina Are you a primary manager managed care to a significant other at home: No Do you presently have visiting nurse or other home services: No Alcohol intake: never Comment: 1:1 sitter in room Patient Tobacco Use Status: Former Tobacco user Quit Date: 10 years ago Tobacco use type: Cigarette e-Cigarette/Vaping Use: Former Use Second Hand Smoke Exposure: No Advance Directives Date on File: 02/03/22 service: No Current occupational status: retired Cognitive needs: No Hearing needs: Yes Vision needs: Yes Meds Allergies Allergy/AdvReac Type Severity Reaction Status Date / Time Penicillins [PENICILLINS] Allergy Intermediate PASSED Verified 06/29/23 01:35 OUT trazodone Allergy Intermediate tremors Verified 06/29/23 01:35 brimonidine [From Alphagan P] Allergy Unknown Verified 06/29/23 01:35 diphenhydramine Allergy Unknown Verified 06/29/23 01:35 [From Benadryl] Active Medications: Current Medications Acetaminophen (Acetaminophen 325 Mg Tablet) 975 mg PO Q6H PRN PRN Reason: Pain and Fever Albuterol/Ipratropium (Albuterol/Iprat 2.5/0.5mg 3 Ml Ampul.Neb) 3 ml INHALE RQ4H WHILE AWAKE [facility] Last Admin: 07/02/23 15:08 Dose: 3 ml Albuterol/Ipratropium (Albuterol/Iprat 2.5/0.5mg 3 Ml Ampul.Neb) 3 ml INHALE Q3H PRN PRN Reason: Sob Stop: 07/02/23 17:53 Apixaban (Apixaban 5 Mg Tablet) 5 mg PO BID [facility] Last Admin: 07/02/23 08:30 Dose: 5 mg Bumetanide (Bumetanide 1 Mg Tablet) 1 mg PO DAILY [facility]; Protocol Last Admin: 07/01/23 08:19 Dose: 1 mg Carvedilol (Carvedilol 3.125 Mg Tablet) 3.125 mg PO BID [facility]; Protocol Last Admin: 07/01/23 08:19 Dose: 3.125 mg Docusate Sodium (Docusate Sodium 100 Mg Capsule) 100 mg PO BEDTIME [facility] Last Admin: 07/01/23 20:36 Dose: 100 mg Erythromycin (Erythromycin Base 0.5% Oph Oin 1 Gm Tube) 1.27 cm EYE-BOTH QID [facility] Last Admin: 07/02/23 12:51 Dose: Not Given Finasteride (Finasteride 5 Mg Tablet) 5 mg PO DAILY [facility] Last Admin: 07/02/23 08:30 Dose: 5 mg Glucose (Glucose Gel 15 Gm Gel..Gram.) 15 gm PO Q15M PRN; Protocol PRN Reason: per Hypoglycemia Standing Ord. Guaifenesin (Guaifenesin 200 Mg/10 Ml 10 Ml Liquid) 10 ml PO Q4H PRN PRN Reason: Cough Last Admin: 07/02/23 01:00 Dose: 10 ml Meropenem 1 gm/ Sodium (Chloride) 100 mls @ 200 mls/hr IV Q8H [facility] Last Infusion: 07/02/23 09:28 Dose: Infused Dextrose (D10) 250 mls @ 750 mls/hr IV Q15M PRN; Protocol PRN Reason: per Hypoglycemia Standing Ord. Insulin Human Lispro (Insulin Lispro 100 Unit/Ml 3 Ml Vial) 0 unit SUBCUT QIDACHS [facility]; Protocol Last Admin: 07/02/23 11:32 Dose: Not Given Latanoprost (Latanoprost 0.005 % Ophth Thalia 2.5 Ml Drops) 1 drop EYE-RIGHT BEDTIME [facility] Last Admin: 07/01/23 20:41 Dose: Not Given Metformin HCl (Metformin Hcl Er 500 Mg Tab.Er.24h) 500 mg PO DAILY [facility] Omeprazole (Omeprazole 20 Mg Capsule.Dr) 20 mg PO DAILY@0630 [facility] Last Admin: 07/02/23 05:54 Dose: 20 mg Polyethylene Glycol (Polyethylene Glycol 3350 17 Gm Powd.Pack) 17 gm PO DAILY [facility] Last Admin: 07/02/23 08:30 Dose: 17 gm Pravastatin Sodium (Pravastatin Sodium 10 Mg Tablet) 10 mg PO DAILY [facility] Last Admin: 07/02/23 08:30 Dose: 10 mg Prednisone (Prednisone 20 Mg Tablet) 40 mg PO DAILY [facility] Last Admin: 07/02/23 08:30 Dose: 40 mg Sodium Chloride (0.9 % Sodium Chloride Flush 3 Ml Syringe) 3 ml IVFLUSH QSHIFT [facility] Last Admin: 07/02/23 08:39 Dose: Not Given Tamsulosin HCl (Tamsulosin Hcl 0.4 Mg Capsule) 0.4 mg PO DAILY [facility] Last Admin: 07/02/23 08:30 Dose: 0.4 mg Home Medications ?Medication ?Instructions ?Recorded ?Confirmed ?Last Taken ?Type albuterol sulfate 90 mcg/actuation 2 puff inhalation Q4H PRN wheezing 03/09/23 06/29/23 Unknown History aerosol inhaler (Ventolin HFA) finasteride 5 mg tablet 5 mg PO DAILY 03/09/23 06/29/23 03/08/23 History lovastatin 10 mg tablet 10 mg PO DAILY 03/09/23 06/29/23 03/08/23 History travoprost 0.004 % eye drops 1 drp ophthalmic-Right BEDTIME 03/09/23 06/29/23 03/07/23 History azithromycin 250 mg tablet 250 mg PO DAILY 06/29/23 06/29/23 Unknown History bumetanide 1 mg tablet 1 mg PO DAILY 06/29/23 06/29/23 Unknown History prednisone 50 mg tablet 50 mg PO DAILY 06/29/23 06/29/23 Unknown History Physical Exam Vital Signs: Vital Signs: Last Vital Signs Temp 98.3 F 07/02/23 15:13 Pulse 82 07/02/23 15:13 Resp 22 H 07/02/23 15:13 BP 121/57 L 07/02/23 15:13 Pulse Ox 95 07/02/23 15:13 O2 Del Method Nasal Cannula 07/02/23 15:13 O2 Flow Rate 1 07/02/23 15:13 BMI result Body Mass Index 27.4 Const: General: cooperative HEENT: Head: Yes normal to inspection Face and sinus: Yes normal facial exam Mouth: Normal oral and palatal mucosa present Teeth and gingiva: dentition normal Eyes: General: appearance normal, both eyes and all related structures Pupils: Equal, round and reactive pupils present Resp: Other: rhonchi bases Cardio: Rate: regular rate Rhythm: regular rhythm GI: Palpation (GI): Soft to palpation and nontender : General: Yes no CVA tenderness Back/Spine/Pelvis: Back: no CVA tenderness Skin: General skin exam: no rashes or lesions noted Neuro: General: moves all extremities Cranial nerves: Yes Equal, round and reactive pupils present Extrem: General: Yes normal to inspection Psych: Appearance: grossly normal Results Labs 06/30/23 06:25 06/30/23 06:25 Microbiology Microbiology Results: Microbiology 06/29/23 02:33 Blood - Venous Blood Culture - Preliminary No growth after 48 hours. 06/29/23 02:22 Blood - Venous Blood Culture - Preliminary No growth after 48 hours. Assessment and Plan (1) Chronic hypoxic respiratory failure: Status: Acute (2) Gram-negative bacteremia: Status: Acute Plan ESBL bacteremia. likely lung source with no urinary symptoms Would treat with IV Ertapenem for three weeks. Stop Doxycycline. Recheck blood culture.
[2023-07-02] MEDS: 0.9 % Sodium Chloride Flush 3 ML SYRINGE IVFLUSH ×2 (17:13→23:38)
[2023-07-02] MEDS: Insulin Lispro 100 UNIT/ML 3 ML VIAL SUBCUT ×2 (17:13→21:33)
[2023-07-02 20:36] LABS: Glucose, Whole Blood 173 mg/dL (60-115)
[2023-07-02] MEDS: Docusate Sodium 100 MG CAPSULE PO (21:33)
[2023-07-02] MEDS: Erythromycin Base 0.5% Oph Oin 1 GM TUBE 1.27 CM EYE-BOTH (21:33)
[2023-07-03] VITALS (10 sets, daily range): BP systolic 102–132; BP diastolic 58–65; PULSE 74–94; RESP 16–22; TEMP 36.1–36.4; O2SAT 92–100
[2023-07-03] MEDS: Omeprazole 20 MG CAPSULE.DR PO (05:49)
[2023-07-03] MEDS: Albuterol/Iprat 2.5/0.5MG 3 ML AMPUL.NEB INHALE ×4 (07:26→20:41)
[2023-07-03 07:52] LABS: Glucose, Whole Blood 92 mg/dL (60-115)
[2023-07-03] MEDS: 0.9 % Sodium Chloride Flush 3 ML SYRINGE IVFLUSH ×2 (08:29→16:52)
[2023-07-03] MEDS: Pravastatin Sodium 10 MG TABLET PO (08:29)
[2023-07-03] MEDS: Tamsulosin HCL 0.4 MG CAPSULE PO (08:29)
[2023-07-03] MEDS: predniSONE 20 MG TABLET 40 MG PO (08:29)
[2023-07-03] MEDS: Apixaban 5 MG TABLET PO ×2 (08:29→22:25)
[2023-07-03] MEDS: polyethylene glycoL 3350 17 GM POWD.PACK PO (08:29)
[2023-07-03] MEDS: Finasteride 5 MG TABLET PO (08:29)
--- NOTE | 2023-07-03 10:29 | HO.PM.IMPN ---
Subjective Subjective Date of Service: 07/03/23 Review of Systems Follow-up acute on chronic respiratory failure Feeling better, less shortness of breath Physical Exam Vital Signs: Vital Signs: Last Vital Signs Temp 97.2 F 07/03/23 07:43 Pulse 74 07/03/23 07:43 Resp 18 07/03/23 07:43 BP 119/59 L 07/03/23 07:43 Pulse Ox 96 07/03/23 07:43 O2 Del Method Nasal Cannula 07/03/23 07:43 O2 Flow Rate 2 07/03/23 07:43 BMI result Body Mass Index 27.4 Appearing in no acute distress lung sounds are clear to auscultation heart regular rate rhythm, clear S1, S2 positive bowel sounds, abdomen is soft, nontender neuro patient is alert x3, no focal deficits Objective Data Active Medications Acetaminophen (Acetaminophen 325 Mg Tablet) 975 mg PO Q6H PRN PRN Reason: Pain and Fever Albuterol/Ipratropium (Albuterol/Iprat 2.5/0.5mg 3 Ml Ampul.Neb) 3 ml INHALE RQ4H WHILE AWAKE [facility] Last Admin: 07/03/23 07:26 Dose: 3 ml Documented By: TAYLOR Apixaban (Apixaban 5 Mg Tablet) 5 mg PO BID [facility] Last Admin: 07/03/23 08:29 Dose: 5 mg Documented By: KIRBY Bumetanide (Bumetanide 1 Mg Tablet) 1 mg PO DAILY [facility]; Protocol Last Admin: 07/01/23 08:19 Dose: 1 mg Documented By: PETRA Carvedilol (Carvedilol 3.125 Mg Tablet) 3.125 mg PO BID [facility]; Protocol Last Admin: 07/01/23 08:19 Dose: 3.125 mg Documented By: PETRA Docusate Sodium (Docusate Sodium 100 Mg Capsule) 100 mg PO BEDTIME [facility] Last Admin: 07/02/23 21:33 Dose: 100 mg Documented By: LESA Erythromycin (Erythromycin Base 0.5% Oph Oin 1 Gm Tube) 1.27 cm EYE-BOTH QID [facility] Last Admin: 07/03/23 08:29 Dose: Not Given Documented By: KIRBY Non-Admin Reason: Patient Refused Finasteride (Finasteride 5 Mg Tablet) 5 mg PO DAILY [facility] Last Admin: 07/03/23 08:29 Dose: 5 mg Documented By: KIRBY Glucose (Glucose Gel 15 Gm Gel..Gram.) 15 gm PO Q15M PRN; Protocol PRN Reason: per Hypoglycemia Standing Ord. Guaifenesin (Guaifenesin 200 Mg/10 Ml 10 Ml Liquid) 10 ml PO Q4H PRN PRN Reason: Cough Last Admin: 07/02/23 01:00 Dose: 10 ml Documented By: LESA Meropenem 1 gm/ Sodium (Chloride) 100 mls @ 200 mls/hr IV Q8H [facility] Last Admin: 07/03/23 08:29 Dose: 200 mls/hr Documented By: KIRBY Dextrose (D10) 250 mls @ 750 mls/hr IV Q15M PRN; Protocol PRN Reason: per Hypoglycemia Standing Ord. Insulin Human Lispro (Insulin Lispro 100 Unit/Ml 3 Ml Vial) 0 unit SUBCUT QIDACHS [facility]; Protocol Last Admin: 07/03/23 07:58 Dose: Not Given Documented By: KIRBY Non-Admin Reason: No Insulin Coverage Latanoprost (Latanoprost 0.005 % Ophth Thalia 2.5 Ml Drops) 1 drop EYE-RIGHT BEDTIME [facility] Last Admin: 07/02/23 21:34 Dose: Not Given Documented By: LESA Non-Admin Reason: Patient Refused Metformin HCl (Metformin Hcl Er 500 Mg Tab.Er.24h) 500 mg PO DAILY [facility] Omeprazole (Omeprazole 20 Mg Capsule.Dr) 20 mg PO DAILY@0630 [facility] Last Admin: 07/03/23 05:49 Dose: 20 mg Documented By: SATHISH Polyethylene Glycol (Polyethylene Glycol 3350 17 Gm Powd.Pack) 17 gm PO DAILY [facility] Last Admin: 07/03/23 08:29 Dose: 17 gm Documented By: KIRBY Pravastatin Sodium (Pravastatin Sodium 10 Mg Tablet) 10 mg PO DAILY [facility] Last Admin: 07/03/23 08:29 Dose: 10 mg Documented By: KIRBY Prednisone (Prednisone 20 Mg Tablet) 40 mg PO DAILY [facility] Last Admin: 07/03/23 08:29 Dose: 40 mg Documented By: KIRBY Sodium Chloride (0.9 % Sodium Chloride Flush 3 Ml Syringe) 3 ml IVFLUSH QSHIFT [facility] Last Admin: 07/03/23 08:29 Dose: 3 ml Documented By: KIRBY Tamsulosin HCl (Tamsulosin Hcl 0.4 Mg Capsule) 0.4 mg PO DAILY [facility] Last Admin: 07/03/23 08:29 Dose: 0.4 mg Documented By: KIRBY Labs 06/30/23 06:25 06/30/23 06:25 Labs: Laboratory Results - last 24 hr 07/02/23 07/02/23 07/02/23 11:24 16:09 20:11 POC Glucose 150 H 184 H 173 H 07/03/23 07:42 POC Glucose 92 Assessment and Plan (1) Chronic hypoxic respiratory failure: Status: Acute Plan 82M PMH significant for 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 Prednisone, taper on discharge Supplemental oxygen as needed to keep oxygen saturation greater than 91% E coli, ESBL bacteremia 1/2 blood culture positive Likely lung source Id consult> 3 weeks of IV meropenem (initiated 06/29/2023), midline placed Heart failure with reduced ejection fraction No exacerbation Continue home dose of Bumex Diabetes mellitus type 2 Sliding scale, ADA diet Paroxysmal atrial fibrillation Continue Coreg and Eliquis DVT prophylaxis with Eliquis Attending Dr. Butt Full code Disposition. Plan for short-term rehab when bed available Continue hospitalization for chronic hypoxic respiratory failure due to endstage copd/bronchiectasis exacerbation, JESSA,pneumonia-needs IV antibiotics for pneumonia, blood culture-esbl bacteremia -requires iv meropenem, preliminary evaluation for recurrent pneumonias in setting of end-stage COPD and recurrent pneumonias-high risk for decompensation respiratory warner considering above. Quality Stroke Does the patient have a stroke diagnosis?: No VTE Prior VTE?: No VTE Risk Level:: Medical - moderate - high VTE Device Contraindication: Treatment Not Indicated VTE Drug Contraindication: N/A - Med Ordered
[2023-07-03 11:21] LABS: Glucose, Whole Blood 166 mg/dL (60-115)
--- NOTE | 2023-07-03 11:24 | HO.MIDLINE ---
Midline Insertion MIDLINE INSERTION Diagnosis: ESBL Bacteremia Indication: 3 weeks of Antibx Pertinent Labs: REVIEWED Technique: Using sterile technique including cap and mask, glove and drape, the RIGHT arm was prepped and draped in the usual sterile fashion of full barrier technique with CHG. Using ultrasound guidance, RIGHT BRACHIAL vein access was OBTAINED BY LUZ MARIA BRUNSON AFTER MUTIPLE ATTEMPTS BY IR NURSES. 4FR NON-PASV TRIMABLE POWERMIDLINE CATHETER TRIMMED TO 10CM was positioned. The procedure was performed in RM 272. Ultrasound was used to document vein patency and for needle entry. A formal ultrasound picture was recorded. [employer] Kettle Tender has released the line for use and it is currently dressed with a StatLock, Tegaderm, and CHG disc. Verification has been performed for blood return and line patency. PATIENT TOLERATED THE PROCEDURE VERY WELL. Arm Circumference: 27.5CM Equipment: [employer] POWERMIDLINE Catheter Type:4FR NON-PASV TRIMABLE POWERMIDLINE CATHETER Lot #: [id number]
[2023-07-03] MEDS: Insulin Lispro 100 UNIT/ML 3 ML VIAL SUBCUT ×2 (11:33→16:52)
[2023-07-03 16:31] LABS: Glucose, Whole Blood 224 mg/dL (60-115)
[2023-07-03 20:15] LABS: Glucose, Whole Blood 140 mg/dL (60-115)
[2023-07-03] MEDS: carvediloL 3.125 MG TABLET PO (22:24)
[2023-07-03] MEDS: Docusate Sodium 100 MG CAPSULE PO (22:25)
[2023-07-03] MEDS: Erythromycin Base 0.5% Oph Oin 1 GM TUBE 1.27 CM EYE-BOTH (22:25)
[2023-07-03] MEDS: Latanoprost 0.005 % Ophth Sol 2.5 ML DROPS 1 DROP EYE-RIGHT (22:30)
[2023-07-04] VITALS (10 sets, daily range): BP systolic 100–136; BP diastolic 56–77; PULSE 65–92; RESP 16–20; TEMP 36.2–36.6; O2SAT 94–98
[2023-07-04] MEDS: Omeprazole 20 MG CAPSULE.DR PO (06:17)
[2023-07-04 07:11] LABS: Glucose, Whole Blood 97 mg/dL (60-115)
[2023-07-04] MEDS: Albuterol/Iprat 2.5/0.5MG 3 ML AMPUL.NEB INHALE ×4 (08:42→19:46)
--- NOTE | 2023-07-04 08:59 | HO.PM.IMPN ---
Subjective Subjective Date of Service: 07/04/23 Review of Systems Follow-up acute on chronic respiratory failure Feeling better, less shortness of breath Physical Exam Vital Signs: Vital Signs: Last Vital Signs Temp 98 F 07/04/23 07:03 Pulse 82 07/04/23 08:42 Resp 20 07/04/23 08:42 BP 136/75 07/04/23 07:03 Pulse Ox 96 07/04/23 07:03 O2 Del Method Nasal Cannula 07/04/23 07:03 O2 Flow Rate 3 07/04/23 07:03 BMI result Body Mass Index 27.4 Appearing in no acute distress lung sounds rhonchi throughout with exp wheezing heart regular rate rhythm, clear S1, S2 positive bowel sounds, abdomen is soft, nontender neuro patient is alert x3, no focal deficits Objective Data Active Medications Acetaminophen (Acetaminophen 325 Mg Tablet) 975 mg PO Q6H PRN PRN Reason: Pain and Fever Albuterol/Ipratropium (Albuterol/Iprat 2.5/0.5mg 3 Ml Ampul.Neb) 3 ml INHALE RQ4H WHILE AWAKE [facility] Last Admin: 07/04/23 08:42 Dose: 3 ml Documented By: SHARON Apixaban (Apixaban 5 Mg Tablet) 5 mg PO BID [facility] Last Admin: 07/03/23 22:25 Dose: 5 mg Documented By: PHILIP Bumetanide (Bumetanide 1 Mg Tablet) 1 mg PO DAILY [facility]; Protocol Last Admin: 07/01/23 08:19 Dose: 1 mg Documented By: PETRA Carvedilol (Carvedilol 3.125 Mg Tablet) 3.125 mg PO BID [facility]; Protocol Last Admin: 07/03/23 22:24 Dose: 3.125 mg Documented By: PHILIP Docusate Sodium (Docusate Sodium 100 Mg Capsule) 100 mg PO BEDTIME [facility] Last Admin: 07/03/23 22:25 Dose: 100 mg Documented By: PHILIP Erythromycin (Erythromycin Base 0.5% Oph Oin 1 Gm Tube) 1.27 cm EYE-BOTH QID [facility] Last Admin: 07/03/23 22:25 Dose: 1.27 cm Documented By: PHILIP Finasteride (Finasteride 5 Mg Tablet) 5 mg PO DAILY [facility] Last Admin: 07/03/23 08:29 Dose: 5 mg Documented By: KIRBY Glucose (Glucose Gel 15 Gm Gel..Gram.) 15 gm PO Q15M PRN; Protocol PRN Reason: per Hypoglycemia Standing Ord. Guaifenesin (Guaifenesin 200 Mg/10 Ml 10 Ml Liquid) 10 ml PO Q4H PRN PRN Reason: Cough Last Admin: 07/02/23 01:00 Dose: 10 ml Documented By: LESA Meropenem 1 gm/ Sodium (Chloride) 100 mls @ 200 mls/hr IV Q8H [facility] Last Infusion: 07/04/23 00:50 Dose: Infused Documented By: PHILIP Dextrose (D10) 250 mls @ 750 mls/hr IV Q15M PRN; Protocol PRN Reason: per Hypoglycemia Standing Ord. Insulin Human Lispro (Insulin Lispro 100 Unit/Ml 3 Ml Vial) 0 unit SUBCUT QIDACHS [facility]; Protocol Last Admin: 07/03/23 22:28 Dose: Not Given Documented By: PHILIP Non-Admin Reason: No Insulin Coverage Latanoprost (Latanoprost 0.005 % Ophth Thalia 2.5 Ml Drops) 1 drop EYE-RIGHT BEDTIME [facility] Last Admin: 07/03/23 22:30 Dose: 1 drop Documented By: PHILIP Metformin HCl (Metformin Hcl Er 500 Mg Tab.Er.24h) 500 mg PO DAILY [facility] Omeprazole (Omeprazole 20 Mg Capsule.Dr) 20 mg PO DAILY@0630 [facility] Last Admin: 07/04/23 06:17 Dose: 20 mg Documented By: PHILIP Polyethylene Glycol (Polyethylene Glycol 3350 17 Gm Powd.Pack) 17 gm PO DAILY [facility] Last Admin: 07/03/23 08:29 Dose: 17 gm Documented By: KIRBY Pravastatin Sodium (Pravastatin Sodium 10 Mg Tablet) 10 mg PO DAILY [facility] Last Admin: 07/03/23 08:29 Dose: 10 mg Documented By: KIRBY Prednisone (Prednisone 20 Mg Tablet) 40 mg PO DAILY [facility] Last Admin: 07/03/23 08:29 Dose: 40 mg Documented By: KIRBY Sodium Chloride (0.9 % Sodium Chloride Flush 3 Ml Syringe) 3 ml IVFLUSH QSHIFT [facility] Last Admin: 07/04/23 00:12 Dose: Not Given Documented By: PHILIP Non-Admin Reason: Previously Administered Tamsulosin HCl (Tamsulosin Hcl 0.4 Mg Capsule) 0.4 mg PO DAILY [facility] Last Admin: 07/03/23 08:29 Dose: 0.4 mg Documented By: KIRBY Labs 06/30/23 06:25 06/30/23 06:25 Labs: Laboratory Results - last 24 hr 07/03/23 07/03/23 07/03/23 11:17 16:25 19:44 POC Glucose 166 H 224 H 140 H 07/04/23 07:03 POC Glucose 97 Microbiology Microbiology Results: Microbiology 06/29/23 02:33 Blood Culture - Final Blood - Venous No growth after 5 days. 06/29/23 02:22 Blood Culture - Final Blood - Venous No growth after 5 days. 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 Prednisone, taper on discharge Supplemental oxygen as needed to keep oxygen saturation greater than 91% E coli, ESBL bacteremia 1/2 blood culture positive Likely lung source Id consult> 3 weeks of IV meropenem (initiated 06/29/2023), midline placed Heart failure with reduced ejection fraction No exacerbation Continue home dose of Bumex Diabetes mellitus type 2 Sliding scale, ADA diet Paroxysmal atrial fibrillation Continue Coreg and Eliquis DVT prophylaxis with Leannequis Attending Dr. Butt Full code Disposition. Plan for short-term rehab when bed available Continue hospitalization for chronic hypoxic respiratory failure due to endstage copd/bronchiectasis exacerbation, JESSA,pneumonia-needs IV antibiotics for pneumonia, blood culture-esbl bacteremia -requires iv meropenem, preliminary evaluation for recurrent pneumonias in setting of end-stage COPD and recurrent pneumonias-high risk for decompensation respiratory warner considering above. Quality Stroke Does the patient have a stroke diagnosis?: No VTE Prior VTE?: No VTE Risk Level:: Medical - moderate - high VTE Device Contraindication: Treatment Not Indicated VTE Drug Contraindication: N/A - Med Ordered
[2023-07-04] MEDS: polyethylene glycoL 3350 17 GM POWD.PACK PO (09:10)
[2023-07-04] MEDS: Finasteride 5 MG TABLET PO (09:10)
[2023-07-04] MEDS: carvediloL 3.125 MG TABLET PO (09:10)
[2023-07-04] MEDS: Tamsulosin HCL 0.4 MG CAPSULE PO (09:10)
[2023-07-04] MEDS: Bumetanide 1 MG TABLET PO (09:11)
[2023-07-04] MEDS: Erythromycin Base 0.5% Oph Oin 1 GM TUBE 1.27 CM EYE-BOTH ×3 (09:11→17:09)
[2023-07-04] MEDS: predniSONE 20 MG TABLET 40 MG PO (09:11)
[2023-07-04] MEDS: Apixaban 5 MG TABLET PO ×2 (09:11→22:19)
[2023-07-04] MEDS: Pravastatin Sodium 10 MG TABLET PO (09:11)
[2023-07-04] MEDS: 0.9 % Sodium Chloride Flush 3 ML SYRINGE IVFLUSH ×3 (09:23→22:20)
[2023-07-04 11:05] LABS: Glucose, Whole Blood 102 mg/dL (60-115)
--- NOTE | 2023-07-04 12:32 | MHC.CM.PN ---
EMR REVIEWED AND PER MD ROUNDS, PT IS NOT MEDICALLY CLEARED FOR DC. [facility] HAS OFFERED A BED TO PT WHEN MEDICALLY READY (PT FIRST CHOICE FOR STR) UPDATES SENT. CM WILL CONTINUE TO FOLLOW FOR ANY CHANGE TO DC PLAN/NEEDS.
[2023-07-04 16:42] LABS: Glucose, Whole Blood 182 mg/dL (60-115)
[2023-07-04] MEDS: Insulin Lispro 100 UNIT/ML 3 ML VIAL SUBCUT (17:03)
[2023-07-04 20:33] LABS: Glucose, Whole Blood 135 mg/dL (60-115)
[2023-07-04] MEDS: Docusate Sodium 100 MG CAPSULE PO (22:19)
[2023-07-04] MEDS: Latanoprost 0.005 % Ophth Sol 2.5 ML DROPS 1 DROP EYE-RIGHT (22:20)
[2023-07-05 02:31] VITALS: BP 100/56; PULSE 70; RESP 18; TEMP 36.1; O2SAT 99
[2023-07-05] MEDS: Omeprazole 20 MG CAPSULE.DR PO (06:35)
[2023-07-05 07:45] VITALS: BP 112/63; PULSE 65; RESP 18; TEMP 36.4; O2SAT 98
[2023-07-05 07:46] LABS: Glucose, Whole Blood 95 mg/dL (60-115)
[2023-07-05] MEDS: Albuterol/Iprat 2.5/0.5MG 3 ML AMPUL.NEB INHALE ×3 (08:30→15:11)
[2023-07-05] MEDS: Finasteride 5 MG TABLET PO (09:44)
[2023-07-05 09:45] VITALS: BP 112/63
[2023-07-05] MEDS: carvediloL 3.125 MG TABLET PO (09:45)
[2023-07-05] MEDS: Pravastatin Sodium 10 MG TABLET PO (09:45)
[2023-07-05] MEDS: Tamsulosin HCL 0.4 MG CAPSULE PO (09:45)
[2023-07-05] MEDS: Bumetanide 1 MG TABLET PO (09:45)
[2023-07-05] MEDS: 0.9 % Sodium Chloride Flush 3 ML SYRINGE IVFLUSH (09:45)
[2023-07-05] MEDS: predniSONE 20 MG TABLET 40 MG PO (09:45)
[2023-07-05] MEDS: Apixaban 5 MG TABLET PO (09:45)
[2023-07-05] MEDS: Erythromycin Base 0.5% Oph Oin 1 GM TUBE 1.27 CM EYE-BOTH ×2 (09:46→14:37)
[2023-07-05 11:23] LABS: Glucose, Whole Blood 135 mg/dL (60-115)
[2023-07-05 11:49] VITALS: PULSE 65; RESP 18; O2SAT 95
--- NOTE | 2023-07-05 11:53 | PM.DS ---
DS: Providers Provider Date of Service: 07/05/23 Date of admission: 06/29/23 05:38 Date of discharge: 07/05/23 Primary care physician: Olga Calzada MD Consults: 06/29/23 16:44 Consult to Pulmonology Routine Consulting Provider: [facility] Reason for consultation: recuurent pneumonia/copd execerbation 07/01/23 12:11 Consult to Infectious Diseases Routine Consulting Provider: [facility] Reason for consultation: esbl bacteremia Has provider been notified: No Attending physician on discharge: Raúl Butt Discharging clinician: Eileen Zuniga DS: Diagnosis Discharge Diagnosis (1) Chronic hypoxic respiratory failure: Status: Acute (2) Gram-negative bacteremia: Status: Acute (3) COPD (chronic obstructive pulmonary disease): Status: Acute DS: Summary Hospital Course Hospital Course: From H&P on the day of admission 83-year-old male with multiple comorbidities including COPD- patient said he is having shortness of breath and cough and runny nose for 3-4 days, he tried his nebulizer treatments at home did not help and shortness of breath while worsening so decided to come to the hospital in addition patient was also having some abdominal pain could not clarify which area but more localized left flank area which is improved by the time I saw him. Currently patient says he is still short of breath with minimal exertion, denies any chest pain. Denies any new complaint fever or chills or nausea or vomiting or any weakness or numbness. Lab imaging reviewed: WBC improving to 17.[address] abdomen: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. Multiple renal stones. No hydronephrosis. Slightly enlarged prostate gland that protrudes into the base of the bladder. Constipation and diverticulosis. Worsening airspace disease disease in the left lower lobe compared to recent chest CT. Fleischner guidelines were followed. Patient was given nebs, antibiotics in the ED and requested admission for COPD exacerbation, pneumonia. After receiving nebs and antibiotic patient shortness of breaths -somewhat improivng Acute on chronic hypoxic respiratory failure due to end stage copd/bronchiectasis exacerbation, JESSA,pneumonia Continue scheduled DuoNebs, prednisone, has gone 40 mg of oral prednisone since June 30, would recommend 5 more days of oral prednisone 20 mg. Pulmonary evaluation noted -continue current management. Supplemental oxygen as needed to keep oxygen saturation greater than 91%, on baseline 2 L supplemental oxygen E coli, ESBL bacteremia 1/2 blood culture positive Likely lung source Id consult recommended 3 weeks of IV meropenem (initiated 06/29/2023), midline placed 07/02. End date of Meropenem him July 19 Time Attestation Total time managing care of this patient today: 35 mintues. Discharge Coordination Time (in mins): 35 Quality: Safe Use of Opioids Does Pt have an Active Cancer Diagnosis on the Problem List?: No Quality: Stroke Does the patient have a stroke diagnosis?: No Physical Exam Vital Signs: Vital Signs: Last Vital Signs Temp 97.5 F 07/05/23 07:45 Pulse 65 07/05/23 11:49 Resp 18 07/05/23 11:49 BP 112/63 07/05/23 09:45 Pulse Ox 98 07/05/23 07:45 O2 Del Method Nasal Cannula 07/05/23 07:45 O2 Flow Rate 2.5 07/05/23 07:45 BMI result Body Mass Index 27.4 Const: General: cooperative and comfortable Nutritional Appearance: average body habitus Orientation/consciousness: patient oriented x3 Resp: Effort & Inspection: normal respiratory effort, no respiratory distress and no use of accessory muscles Auscultation: clear to auscultation bilaterally Cardio: Rate: regular rate GI: Palpation (GI): Soft to palpation Neuro: General: patient oriented x3, moves all extremities and CN's II-XI intact bilaterally Extrem: General: Yes no pedal edema DS: Data Data Completed and Pending Completed studies during hospitalization [Text1]: Procedures Insertion of Infusion Device into Left Brachial Vein, Percutaneous Approach (05/25/22) Insertion of Infusion Device into Right Brachial Vein, Percutaneous Approach (05/12/23) Insertion of Infusion Device into Right Cephalic Vein, Percutaneous Approach (12/07/21) Insertion of Infusion Device into Superior Vena Cava, Percutaneous Approach (12/07/21) Introduction of Remdesivir Anti-infective into Peripheral Vein, Percutaneous Approach, [employer] (03/18/23) Ultrasonography of Superior Vena Cava, Guidance (12/07/21) Labs on day of discharge: Laboratory Results - last 24 hr 07/04/23 07/04/23 07/05/23 16:37 20:21 07:32 POC Glucose 182 H 135 H 95 07/05/23 11:16 POC Glucose 135 H Discharge Plan Discharge Anticipated Discharge Date/Time: 07/05/23 13:53 Patient Disposition: Xfer SNF Discharge Diagnosis: copd exacerbation ESBL E coli bacteremia Referrals: [facility] [Outside] - 1 Week (TRANSFER FOR SHORT TERM REHAB) Olga North MD [Primary Care Provider] - 1 Week Discharge Medications: New meropenem 1 gram Recon Soln 1 g IV Q8H Qty: 10 0RF prednisone 20 mg tablet 20 mg PO DAILY 5 Days Qty: 5 0RF Continued tamsulosin 0.4 mg capsule 0.4 mg PO DAILY 30 Days Qty: 30 2RF ipratropium-albuterol 0.5 mg-3 mg(2.5 mg base)/3 mL solution for nebulization 3 ml inhalation QID PRN (Reason: for dyspnea) Qty: 180 0RF Eliquis 5 mg tablet 5 mg PO BID 90 Days Qty: 180 0RF metformin 500 mg tablet extended release 24 hr 500 mg PO DAILY 30 Days Qty: 30 5RF carvedilol 3.125 mg tablet 3.125 mg PO BID 90 Days Qty: 180 1RF Rx Instructions: must administer with a meal/food omeprazole 20 mg capsule,delayed release(DR/EC) 20 mg PO DAILY 90 Days Qty: 90 0RF erythromycin 5 mg/gram (0.5 %) ointment 0.5 inch ophthalmic (eye) QID Qty: 50 0RF bumetanide 1 mg tablet 1 mg PO DAILY finasteride 5 mg tablet 5 mg PO DAILY lovastatin 10 mg tablet 10 mg PO DAILY travoprost 0.004 % drops 1 drp ophthalmic-Right BEDTIME albuterol sulfate [Ventolin HFA] 90 mcg/actuation HFA aerosol inhaler 2 puff INHALATION Q4H PRN (Reason: wheezing) Incruse Ellipta 62.5 mcg/actuation blister with device 1 inh inhalation BEDTIME 30 Days Qty: 30 0RF Discontinued azithromycin 250 mg Tablet 250 mg PO DAILY Rx Instructions: 500 DAY 1 start on day 2 of therapy 250MG prednisone 50 mg Tablet 50 mg PO DAILY cefuroxime axetil 250 mg tablet 250 mg PO BID Qty: 14 0RF No Action (DME) walker Misc See Rx Instructions .Route Qty: 1 0RF Patient Comments: Pt states doesnot use Rx Instructions: with seat and wheels (DME) blood-glucose meter [FreeStyle Lite Meter] Kit See Rx Instructions .Route Qty: 1 0RF Rx Instructions: test once daily (DME) FreeStyle Lite Strips Strip See Rx Instructions .Route Qty: 100 5RF Rx Instructions: test once daily (DME) lancets [FreeStyle Lancets] 28 gauge misc See Rx Instructions .Route Qty: 100 6RF Rx Instructions: Use 1 lancet once a day (DME) wheelchair See Rx Instructions .Route .MEDSUPPLY Qty: 1 0RF Rx Instructions: As directed Discharge Orders: Discharge Order (Routine); Ordered 07/05/23 Ordered By: Eileen Zuniga Activity on Discharge: As tolerated Stand Alone Forms: Patient Portal Discharge page Print Language: Mauritian Care Plan Goals: See below Health Concerns: E coli ESBL bacteremia - complete meropenem - end date 07/19. Follow weekly CBC, BMP while getting IV abx Complete course of steroids, 20 mg of oral prednisone for 5 days for COPD exacerbation/bronchiectasis Wean to baseline 2 L supplemental oxygen Plan of Treatment: as above Assessment: See discharge summary
--- NOTE | 2023-07-05 12:21 | MHC.CM.PN ---
DP: PT HAS BEEN MEDICALLY CLEARED FOR DC TO STR TO [facility], PATIENT'S FIRST CHOICE. RN AWARE. CENTER UPDATED. PER PT REQUEST, HCP [facility] UPDATED. BLS TRANSPORT BOOKED FOR 1:30 PM [facility]IA [facility].
[2023-07-05 15:11] VITALS: PULSE 88; RESP 18; O2SAT 97
== END 2023-07-05 15:27 | disposition skilled nursing facility (03) | DRG 193 ==
LOC: HO.ED 03:03 → HO.EDOVER 05:46 → HO.IMC 14:51 → HO.S3 06-30 11:15
PROVIDERS: Internal Medicine; Nurse Practitioner Acute Care; Admitting Provider Internal Medicine; Emergency Provider Emergency Medicine; PCP Internal Medicine; Visit Provider Physician Assistant Medical
DX: J18.9 Pneumonia, unspecified organism (principal); J96.21 Acute and chronic respiratory failure with hypoxia; J47.0 Bronchiectasis with acute lower respiratory infection; I50.22 Chronic systolic (congestive) heart failure; R78.81 Bacteremia; Z16.12 Extended spectrum beta lactamase (ESBL) resistance; J47.1 Bronchiectasis with (acute) exacerbation; A31.0 Pulmonary mycobacterial infection; B96.20 Unspecified Escherichia coli [E. coli] as the cause of diseases classified elsewhere; I48.0 Paroxysmal atrial fibrillation; I25.10 Atherosclerotic heart disease of native coronary artery without angina pectoris; E11.9 Type 2 diabetes mellitus without complications; Z20.822 Contact with and (suspected) exposure to COVID-19; Z79.01 Long term (current) use of anticoagulants; Z79.84 Long term (current) use of oral hypoglycemic drugs; Z79.899 Other long term (current) drug therapy
CPT/HCPCS: 36410; 36415; 71045; 74177; 80048; 80053; 80076; 81001; 82803; 82947; 83605; 83735; 85025; 87040; 87077; 87186; 87205; 87633; 94640; 97162; 99284; 99285; C1751; J0456; J0696; J2185; J2919; J3475; Q9967

== ENCOUNTER → 2023-06-29 05:38 | Outpatient (BNV) | payer MEDICARE, MEDICAID, SELFPAY | PROVIDERS: Admitting Provider Internal Medicine; Emergency Provider Emergency Medicine; Visit Provider Internal Medicine | DX: J96.11 Chronic respiratory failure with hypoxia (principal); R78.81 Bacteremia; J44.1 Chronic obstructive pulmonary disease with (acute) exacerbation | CPT/HCPCS: 99222; 99232; 99239 ==

== ENCOUNTER → 2023-06-29 05:38 | Outpatient (BNV) | payer MEDICARE, MEDICAID, SELFPAY | PROVIDERS: Admitting Provider Internal Medicine; Emergency Provider Emergency Medicine; Visit Provider Internal Medicine | DX: J96.11 Chronic respiratory failure with hypoxia (principal); R78.81 Bacteremia | CPT/HCPCS: 99222 ==

== ENCOUNTER → 2023-06-29 05:38 | Outpatient (BNV) | payer MEDICARE, MEDICAID, SELFPAY | PROVIDERS: Admitting Provider Internal Medicine; Emergency Provider Emergency Medicine; Visit Provider Internal Medicine Pulmonary Disease | DX: R78.81 Bacteremia (principal); J47.1 Bronchiectasis with (acute) exacerbation; J44.1 Chronic obstructive pulmonary disease with (acute) exacerbation; J96.11 Chronic respiratory failure with hypoxia | CPT/HCPCS: 99221 ==

== ENCOUNTER 2023-07-18 13:55 | Outpatient (AMB) | payer MEDICARE, MEDICAID, SELFPAY ==
[2023-07-18 13:56] VITALS: BP 98/56; PULSE 97; O2SAT 98; BMI 19.4
--- NOTE | 2023-07-18 13:56 | A.OFFVIS_ITS ---
Vital Signs 07/18/23 13:56 Height 5 ft 6 in Weight 120 lb BMI 19.4 BP 98/56 L Blood Pressure Location Lt brachial Position Sitting Pulse 97 Pulse Source Doppler Pulse Oximetry (%) 98 Oxygen Delivery Method Nasal Cannula Oxygen Flow Rate 2 Intake Visit Reasons: bronchiectasis Automatic Spinning Lathe Operator Required: Yes Automatic Spinning Lathe Operator Name: Joselin Melissa LedyCinthia Allergies Penicillins [PENICILLINS] Allergy (Intermediate, Verified 06/29/23 01:35) PASSED OUT trazodone Allergy (Intermediate, Verified 06/29/23 01:35) tremors brimonidine [From Alphagan P] Allergy (Verified 06/29/23 01:35) Unknown diphenhydramine [From Benadryl] Allergy (Verified 06/29/23 01:35) Unknown HPI HPI bronchiectasis: Details: 83-year-old gentleman with underlying 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 Patient has had multiple recent admissions for both pulmonary and nonpulmonary reasons Susan neck around recurrent infections with an a ESBL organism. He denies acute exacerbations at this time. He is currently on IV meropenem after hospital discharge. [facility] Medical History (Updated 07/18/23 @ 14:26 by Brent Duenas MD) Bronchiectasis COPD (chronic obstructive pulmonary disease) NICM (nonischemic cardiomyopathy) Swallowing problem 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 Kidney stone on left side Paroxysmal atrial fibrillation Congestive heart failure Acute and chronic respiratory failure BPH loc w urin obs/LUTS Urinary retention History of COVID-19 Chronic anticoagulation History of pneumothorax Diabetes Supplemental oxygen dependent Kidney stone on left side Hearing loss JESSA (mycobacterium avium-intracellulare) Bronchiectasis Glaucoma Pure hypercholesterolemia GERD (gastroesophageal reflux disease) History of MAC infection Essential hypertension Surgical History History of transurethral resection of bladder tumor (TURBT) History of cataract surgery History of left inguinal hernia repair History of bronchoscopy History of colonoscopy History of lumbar surgery History of cystoscopy Family History Father No problems noted. Mother Medical history unknown Sister Diabetes Daughter In good health Son In good health Brother No problems noted. Social History Household Members: None Housing: Apartment Housing Other:: Gianluca Mack Are you a primary caregiver services home to a significant other at home: No Do you presently have visiting nurse or other home services: No Alcohol intake: never Comment: 1:1 sitter in room Patient Tobacco Use Status: Former Tobacco user Quit Date: 10 years ago Tobacco use type: Cigarette e-Cigarette/Vaping Use: Former Use Second Hand Smoke Exposure: No Advance Directives Date on File: 02/03/22 service: No Current occupational status: retired Cognitive needs: No Hearing needs: Yes Vision needs: Yes Review of Systems Const Denies daytime sleepiness, Denies excessive sweating, Denies fatigue, Denies fever(s), Denies lethargy, Denies malaise, Denies night sweats, Denies snoring and Denies weight loss Eyes Denies blurry vision and Denies itchy eyes ENT Denies nasal congestion, Denies post nasal drip, Denies sinus pain, Denies sinus pressure and Denies other ( Thrush) Card Denies chest pain, Denies pedal edema, Denies dyspnea, Reports dyspnea on exertion, Denies orthopnea and Denies paroxysmal nocturnal dyspnea Resp Denies cough, Denies hemoptysis, Denies excessive phlegm production, Denies dyspnea, Reports dyspnea on exertion, Denies snoring and Denies wheezing GI Denies abdominal pain and Denies heartburn Musc Denies myalgias, Denies arthralgias and Denies joint swelling Skin/Breast Denies rash Neuro Denies memory loss and Denies seizure-like activity Psych Denies abnormal sleep pattern, Denies anxiety and Denies memory loss Endo Denies excessive sweating, Denies fatigue and Denies heat intolerance José/Lymph Denies easy bruising Aller/Immun Denies itchy eyes, Denies seasonal rhinorrhea and Denies wheezing Physical Exam Vital Signs: Last Vital Signs Pulse 97 07/18/23 13:56 BP 98/56 L 07/18/23 13:56 Pulse Ox 98 07/18/23 13:56 Oxygen Delivery Method Nasal Cannula 07/18/23 13:56 Oxygen Flow Rate 2 07/18/23 13:56 BMI result Body Mass Index 19.4 Const General: no acute distress and alert Nutritional Appearance: not obese Orientation/consciousness: Other orientation findings ( oriented) HEENT Head: Yes atraumatic Eyes General: appearance normal, both eyes and all related structures Sclerae: sclerae normal EOM: EOMs intact bilaterally Neck Neck: Yes supple Lymphatic: no lymphadenopathy noted Resp Effort & Inspection: normal respiratory effort and no use of accessory muscles Auscultation: clear to auscultation bilaterally Cardio Rate: regular rate Rhythm: regular rhythm Heart sounds: no gallops, no murmurs and no rubs Skin General skin exam: other ( warm) Extrem General: No clubbing, No cyanosis and No edema Assessment & Plan Assessment & Plan (1) Bronchiectasis: Code(s): J47.9 - Bronchiectasis, uncomplicated Category: Medical Qualifiers: Bronchiectasis type: with acute exacerbation Qualified Code(s): J47.1 - Bronchiectasis with (acute) exacerbation Plan: Several recent exacerbations, now on IV meropenem. Continue to monitor clinically. (2) COPD (chronic obstructive pulmonary disease): Code(s): J44.9 - Chronic obstructive pulmonary disease, unspecified Category: Medical Plan: Baseline controlled on regimen of Incruse, duo nebs, and albuterol MDI. Restart prednisone at 5 mg daily. (3) Supplemental oxygen dependent: Code(s): Z99.81 - Dependence on supplemental oxygen Category: Medical Plan: Continue supplemental oxygen. Coding Level of Care Code Est Pt Level 4 (84304) Diagnoses Bronchiectasis with acute exacerbation J47.1 Bronchiectasis type: with acute exacerbation Chronic obstructive pulmonary disease, unspecified COPD type J44.9 Supplemental oxygen dependent Z99.81
== END 2023-07-18 14:16 | disposition home or self-care (01) ==
PROVIDERS: Visit Provider Internal Medicine Pulmonary Disease
DX: J47.1 Bronchiectasis with (acute) exacerbation (principal); J44.9 Chronic obstructive pulmonary disease, unspecified; Z99.81 Dependence on supplemental oxygen
CPT/HCPCS: 99214

== ENCOUNTER → 2023-07-18 13:55 | Outpatient (BNVA) | payer MEDICARE, MEDICAID, SELFPAY | PROVIDERS: Visit Provider Internal Medicine Pulmonary Disease | DX: J47.1 Bronchiectasis with (acute) exacerbation (principal); J44.9 Chronic obstructive pulmonary disease, unspecified; Z99.81 Dependence on supplemental oxygen | CPT/HCPCS: 99212 ==

== ENCOUNTER 2023-07-25 14:48 | Outpatient (AMB) | payer MEDICARE, MEDICAID, SELFPAY ==
[2023-07-25 15:07] VITALS: PULSE 94; TEMP 37.1; O2SAT 96
--- NOTE | 2023-07-25 15:07 | A.OFFVIS_ITS ---
Vital Signs 07/25/23 15:07 Height 5 ft 6 in Pulse 94 Pulse Source Pulse Oximeter Temp 98.8 F Temp Source Oral Pulse Oximetry (%) 96 Oxygen Delivery Method Room Air Intake Visit Reasons: reff c list bacteremia Allergies Penicillins [PENICILLINS] Allergy (Intermediate, Verified 07/25/23 15:08) PASSED OUT trazodone Allergy (Intermediate, Verified 07/25/23 15:08) tremors brimonidine [From Alphagan P] Allergy (Verified 07/25/23 15:08) Unknown diphenhydramine [From Benadryl] Allergy (Verified 07/25/23 15:08) Unknown HPI HPI reff hmc list bacteremia: Details: He has been taking Ertapenem for ESBL E coli. He has no complaints except occasional cough. [facility] Medical History Bronchiectasis COPD (chronic obstructive pulmonary disease) NICM (nonischemic cardiomyopathy) Swallowing problem 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 Kidney stone on left side Paroxysmal atrial fibrillation Congestive heart failure Acute and chronic respiratory failure BPH loc w urin obs/LUTS Urinary retention History of COVID-19 Chronic anticoagulation History of pneumothorax Diabetes Supplemental oxygen dependent Kidney stone on left side Hearing loss JESSA (mycobacterium avium-intracellulare) Bronchiectasis Glaucoma Pure hypercholesterolemia GERD (gastroesophageal reflux disease) History of MAC infection Essential hypertension Surgical History History of transurethral resection of bladder tumor (TURBT) History of cataract surgery History of left inguinal hernia repair History of bronchoscopy History of colonoscopy History of lumbar surgery History of cystoscopy Family History Father No problems noted. Mother Medical history unknown Sister Diabetes Daughter In good health Son In good health Brother No problems noted. Social History Household Members: None Housing: Apartment Housing Other:: Gianluca Mack Are you a primary lpn care manager to a significant other at home: No Do you presently have visiting nurse or other home services: No Alcohol intake: never Comment: 1:1 sitter in room Patient Tobacco Use Status: Former Tobacco user Quit Date: 10 years ago Tobacco use type: Cigarette e-Cigarette/Vaping Use: Former Use Second Hand Smoke Exposure: No Advance Directives Date on File: 02/03/22 service: No Current occupational status: retired Cognitive needs: No Hearing needs: Yes Vision needs: Yes Review of Systems Const All systems reviewed & are unremarkable except as noted in HPI and below Physical Exam Vital Signs: Last Vital Signs Temp 98.8 F 07/25/23 15:07 Pulse 94 07/25/23 15:07 Pulse Ox 96 07/25/23 15:07 Oxygen Delivery Method Room Air 07/25/23 15:07 Const General: cooperative Orientation/consciousness: patient oriented x3 HEENT Head: Yes normal to inspection Mouth: Normal oral and palatal mucosa present Eyes General: appearance normal, both eyes and all related structures Pupils: Equal, round and reactive pupils present Resp Effort & Inspection: normal respiratory effort Cardio Rate: regular rate Rhythm: regular rhythm GI Palpation (GI): Soft to palpation and nontender General: Yes no CVA tenderness Back/Spine/Pelvis Back: no CVA tenderness Skin General skin exam: no rashes or lesions noted Neuro General: patient oriented x3 Cranial nerves: Yes CN's II-XII intact bilaterally and Yes Equal, round and reactive pupils present Extrem General: Yes normal to inspection Psych Appearance: grossly normal Assessment & Plan Assessment & Plan (1) Chronic hypoxic respiratory failure: Code(s): J96.11 - Chronic respiratory failure with hypoxia Category: Medical Plan: Finish three weeks IV Ertapenem and pull PICC line. Coding Level of Care Code Est Pt Level 3 (97546) Diagnoses Chronic hypoxic respiratory failure J96.11
== END 2023-07-25 15:34 | disposition home or self-care (01) ==
LOC: HO.HID 14:48
PROVIDERS: Visit Provider Internal Medicine
DX: J96.11 Chronic respiratory failure with hypoxia (principal)
CPT/HCPCS: 99213

== ENCOUNTER → 2023-07-25 14:48 | Outpatient (BNVA) | payer MEDICARE, MEDICAID, SELFPAY | PROVIDERS: Visit Provider Internal Medicine | DX: J96.11 Chronic respiratory failure with hypoxia (principal) | CPT/HCPCS: 99212 ==

== ENCOUNTER 2023-08-09 12:29 | Inpatient (IN) | payer MEDICARE, MEDICAID, SELFPAY ==
[2023-08-09] VITALS (7 sets, daily range): BP systolic 124–140; BP diastolic 74–85; PULSE 91–108; RESP 18–26; TEMP 36.6–37; O2SAT 93–108; BMI 21.1
--- NOTE | ~2023-08-09 | CT_ITS ---
EXAMINATION: CT CHEST WITHOUT CONTRAST CLINICAL INFORMATION: Productive cough. COMPARISON: CT of the chest June 24, 2019 10. Chest x-ray August 09, 2023 TECHNIQUE: Multidetector volumetric CT imaging of the chest was done. Axial MIP volume rendering provided. Sagittal and coronal reformatted images were obtained. This CT examination was performed using dose optimization techniques as appropriate, variously including the following: *Automated exposure control *Adjustment of mA and/or kV according to patient size (this includes techniques or standardized protocols for targeted exams where dose is matched to indication/reason for exam; i.e. extremities or head) *Use of iterative reconstruction technique DLP: 237 mGy-cm FINDINGS: LUNGS: Redemonstration of the severe chronic diffuse cylindrical bronchiectasis, bronchial wall thickening with extensive large cystic areas throughout the lungs most pronounced in the right upper lobe. The patchy airspace opacities at the lung bases seen on prior CAT scan June 24, 2023. Present but there is improvement since the prior exam, particularly at the right lung base. No new regions of consolidation. MEDIASTINUM: Borderline prominent lymph nodes in the pretracheal retrovascular space and AP window measuring up to about 1 cm in diameter but there is no bulky lymphadenopathy. Heart size is normal. No pericardial effusion. Aorta and great vessels unremarkable. CORONARY ARTERY CALCIFICATION: Small volume of coronary artery calcifications PLEURA: There is no pleural effusion. No pleural mass or thickening. AXILLA: No lymphadenopathy. UPPER ABDOMEN: Gallstones present in the gallbladder. No edema around the gallbladder. No focal abnormality visualized portions of liver, spleen, kidneys, pancreas or adrenal glands. OSSEOUS STRUCTURES: Degenerative spondylosis spine. CT/CT chest wo IV con IMPRESSION: 1. Redemonstration of the severe chronic cylindrical bronchiectasis, bronchial wall thickening and extensive cystic areas throughout the lungs. 2. The patchy airspace opacities at the lung bases seen on prior CAT scan June 24, 2023 have improved. No new regions of consolidation. 3. Cholelithiasis. Fleischner guidelines were followed.
--- NOTE | ~2023-08-09 | XR_ITS ---
EXAMINATION: XR CHEST CLINICAL INFORMATION: Acute on chronic respiratory failure. COMPARISON: Chest radiograph dated 07/01/23 TECHNIQUE: Frontal view of the chest was obtained. FINDINGS: Diffuse bilateral pulmonary opacities are again demonstrated. There is an area of lucency within the lateral right mid lung consistent with a bulla. There is no large pleural effusion. There is no pneumothorax. The cardiac silhouette is unchanged in appearance. There is prominence of the right hilum. There are chronic left rib fractures. XR/XR chest 1V IMPRESSION: Diffuse bilateral pulmonary opacities are redemonstrated. Unchanged prominence of the right hilum. When compared with prior study dated 07/01/2023 findings are similar.
--- NOTE | ~2023-08-09 | XR_ITS ---
EXAMINATION: XR CHEST CLINICAL INFORMATION: Hypoxemia COMPARISON: Previous chest x-ray and chest CT most recent from yesterday TECHNIQUE: Frontal view of the chest was obtained. FINDINGS: The cardiac and mediastinal contours are stable. There is severe cystic changes in the lungs and bronchiectasis better appreciated by CT. There are innumerable areas of bronchial wall thickening and nodular opacities seen throughout the lungs suggestive of bronchopneumonia. This appears slightly increased from recent exams. No pleural effusion or pneumothorax. No acute bone abnormality. XR/XR chest 1V IMPRESSION: Severe cystic changes in the lungs and bronchiectasis. Innumerable areas of bronchial wall thickening and nodular opacities seen throughout the lungs suggestive of bronchopneumonia increased from recent exam.
--- NOTE | 2023-08-09 12:46 | MHC.CM.ED ---
Patient currently in our ER. Received notification from Arnie HUFFMAN that patient is active with their agency. Return referral in [facility] so [facility] can follow for d/c needs.
[2023-08-09 13:13] LABS: Basophils Absolute Auto 0.1 X10*3/uL (0.0-0.2); Basophils Percent Auto 0.5 % (0-2); Eosinophils Absolute Auto 4.4 X10*3/uL (0.0-0.4); Eosinophils Percent Auto 23.7 % (0-4); Hematocrit 32.5 % (42.0-52.0); Hemoglobin 10.3 g/dl (14.0-18.0); Imm Gran Abs Auto 0.08 X10*3/uL (0.00-0.03); Imm Gran Pct Auto 0.4 % (0.0-0.4); Lymphocytes Absolute Auto 0.8 X10*3/uL (1.2-4.9); Lymphocytes Percent Auto 4.1 % (20-40); MANUAL DIFF FLAG SCAN; Mean Corpuscular HGB Conc 31.7 g/dl (31.0-36.0); Mean Corpuscular Hemoglobin 26.4 pg (27.0-33.0); Mean Corpuscular Volume 83.3 fL (80.0-98.0); Mean Platelet Volume 9.6 fL (9.4-12.4); Monocytes Percent Auto 5.4 % (2-11); Neutrophils Absolute Auto 12.1 x10*3/uL (2.0-8.3); Neutrophils Percent Auto 65.9 % (45-73); Platelet Count 347 X10*3/uL (160-400); Red Cell Distribution Width 17.2 % (11.0-16.0); SCAN SMEAR FLAG 1; White Blood Count 18.5 X10*3/uL (4.8-10.8)
[2023-08-09 13:14] LABS: Appearance Urine Turbid; Color Urine Yellow; Glucose Urine UA Negative (Negative); Leukocyte Esterase Urine Small (1+) (Negative); Nitrite Urine Negative (Negative); Specific Gravity - Urine 1.015 (1.005-1.025); UMIC TRIGGER UACC YES; Urine Blood Large (3+) (Negative); Urine Ketones Negative (Negative); Urine Protein 30 (1+) mg/dL (Neg-Trace)
[2023-08-09 13:19] LABS: Bacteria Urine None Seen (None Seen); Hyaline Casts Urine 0-2 /LPF (0-2); RBC Urine >20 /HPF (0-2); Squamous Epithelial Cell Urine 0-2 /HPF (0-2); UACC Culture Trigger YES
--- NOTE | 2023-08-09 13:21 | ED.MALEGU ---
HPI - Male Genitourinary General Chief complaint: Urogenital-Male Stated complaint: WEAK,SOB X1 MONTH PER EMS Time Seen by Provider: 08/09/23 12:53 Source: patient and manager of quality Mode of arrival: ambulatory Limitations: no limitations History of Present Illness ED Provider: DR. Beltran HPI Narrative: 83-year-old male with history of COPD and acute on chronic respiratory failure came in today for increase increased frequency urination especially at nighttime that bother the patient not to sleep, patient today has no respiratory symptoms, no fever, No chills. Related Data Home Medications ?Medication ?Instructions ?Recorded ?Confirmed albuterol sulfate 90 mcg/actuation 2 puff inhalation Q4H PRN wheezing 03/09/23 06/29/23 aerosol inhaler (Ventolin HFA) finasteride 5 mg tablet 5 mg PO DAILY 03/09/23 06/29/23 lovastatin 10 mg tablet 10 mg PO DAILY 03/09/23 06/29/23 travoprost 0.004 % eye drops 1 drp ophthalmic-Right BEDTIME 03/09/23 06/29/23 bumetanide 1 mg tablet 1 mg PO DAILY 06/29/23 06/29/23 Previous Rx's ?Medication ?Instructions ?Recorded walker #1 ea 03/20/22 lancets 28 gauge (FreeStyle #100 ea 10/30/22 Lancets) tamsulosin 0.4 mg capsule 0.4 mg PO DAILY 30 days #30 caps 03/19/23 ipratropium 0.5 mg-albuterol 3 mg 3 ml inhalation QID PRN for 04/06/23 (2.5 mg base)/3 mL nebulization dyspnea #180 mL soln erythromycin 5 mg/gram (0.5 %) eye 0.5 inch ophthalmic (eye) QID #50 05/06/23 ointment grams apixaban 5 mg tablet (Eliquis) 5 mg PO BID 90 days #180 tabs 05/15/23 metformin 500 mg tablet,extended 500 mg PO DAILY 30 days #30 tabs 05/15/23 release 24 hr wheelchair #1 ea 06/20/23 carvedilol 3.125 mg tablet 3.125 mg PO BID 90 days #180 tabs 06/27/23 omeprazole 20 mg capsule,delayed 20 mg PO DAILY 90 days #90 caps 06/27/23 release meropenem 1 gram intravenous 1 g IV Q8H #10 ea 07/05/23 solution prednisone 20 mg tablet 20 mg PO DAILY 5 days #5 tabs 07/05/23 umeclidinium 62.5 mcg/actuation 1 inh inhalation BEDTIME 30 days 07/17/23 blister powder for inhalation #30 ea (Incruse Ellipta) blood sugar diagnostic (FreeStyle #100 ea 08/08/23 Lite Strips) blood-glucose meter (FreeStyle #1 ea 08/08/23 Lite Meter kit) straight cane #1 ea 08/08/23 Allergies Allergy/AdvReac Type Severity Reaction Status Date / Time Penicillins [PENICILLINS] Allergy Intermediate PASSED Verified 08/09/23 13:00 OUT trazodone Allergy Intermediate tremors Verified 08/09/23 13:00 brimonidine [From Alphagan P] Allergy Unknown Verified 08/09/23 13:00 diphenhydramine Allergy Unknown Verified 08/09/23 13:00 [From Benadryl] Review of Systems Review of Systems: all other systems are reviewed and are negative Constitutional: Reports as per HPI and Reports no additional constitutional complaints Eyes: Reports as per HPI and Reports no additional eye complaints Reports system reviewed and no additional complaints, except as documented Cardiovascular: Reports as per HPI and Reports no additional cardiovascular complaints Respiratory: Reports as per HPI and Reports no additional respiratory complaints Gastrointestinal: Reports as per HPI and Reports no additional gastrointestinal complaints Genitourinary: Reports no additional female genitourinary complaints Musculoskeletal: Reports no additional musculoskeletal complaints Skin/Breast: Reports system reviewed and no additional complaints, except as docu Psychiatric: Reports no additional psychiatric complaints Endocrine: Reports no additional endocrine complaints Hematologic/Lymphatic: Reports no additional hematologic/lymphatic complaints Allergic/Immunologic: Reports no additional allergic/immunologic complaints Reports system reviewed and no additional complaints, except as documented and Reports Abnormal speech present [facility] Past Medical History Medical History Bronchiectasis COPD (chronic obstructive pulmonary disease) NICM (nonischemic cardiomyopathy) Swallowing problem 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 Kidney stone on left side Paroxysmal atrial fibrillation Congestive heart failure Acute and chronic respiratory failure BPH loc w urin obs/LUTS Urinary retention History of COVID-19 Chronic anticoagulation History of pneumothorax Diabetes Supplemental oxygen dependent Kidney stone on left side Hearing loss JESSA (mycobacterium avium-intracellulare) Bronchiectasis Glaucoma Pure hypercholesterolemia GERD (gastroesophageal reflux disease) History of MAC infection Essential hypertension Surgical History History of transurethral resection of bladder tumor (TURBT) History of cataract surgery History of left inguinal hernia repair History of bronchoscopy History of colonoscopy History of lumbar surgery History of cystoscopy Family History Family History Father No problems noted. Mother Medical history unknown Sister Diabetes Daughter In good health Son In good health Brother No problems noted. Social History Social History Household Members: None Housing: Apartment Housing Other:: Gianluca Mack Are you a primary ambulatory care to a significant other at home: No Do you presently have visiting nurse or other home services: No Alcohol intake: never Comment: 1:1 sitter in room Patient Tobacco Use Status: Former Tobacco user Tobacco use type: Cigarette e-Cigarette/Vaping Use: Former Use Second Hand Smoke Exposure: No Advance Directives: Yes Advance Directives on File: Yes Advance Directives Date on File: 02/03/22 service: No Current occupational status: retired Cognitive needs: No Hearing needs: Yes Vision needs: Yes Physical Exam Vital Signs: Vital Signs: Last Vital Signs Temp 98.2 F 08/09/23 16:25 Pulse 95 08/09/23 17:40 Resp 21 H 08/09/23 17:40 BP 140/83 H 08/09/23 16:25 Pulse Ox 93 08/09/23 16:25 O2 Del Method Nasal Cannula 08/09/23 16:25 O2 Flow Rate 2 08/09/23 16:25 Oxygen Flow Rate 4 08/09/23 12:55 BMI result Body Mass Index 21.1 Vital signs have been reviewed and appear to be correct. Blood pressure elevated. Heart rate normal. Respiratory rate normal. Temperature normal. Oxygen saturation normal. Appearance: Alert. Oriented X3. No acute distress. Head: Normal external exam. Normocephalic. Atraumatic. No Mckeon signs noted. No raccoon eyes noted Eyes: PERRLA. EOMI. Conjunctiva and sclera normal. Eyelids normal. ENT: TM's Normal. Pharynx normal. Uvula midline. Moist mucous membranes. No trismus noted. No drooling noted. No muffled voice noted. Neck: Normal inspection. Neck supple. FROM. No adenopathy. Thyroid Normal. No meningeal signs. No neck mass noted. CVS: Normal heart rate and rhythm. Heart sound normal. No murmurs noted. Pulses normal throughout. Respiratory: No respiratory distress. Painless inspiration. Breath sounds normal. No wheezes/rales/rhonchi noted. Chest nontender. No accessory muscle usage noted or decreased air movement noted. Abdomen: Soft and nontender. Bowel sounds normal in all 4 quadrants. No distention noted. No organomegaly noted. No visible injury noted. Back: No CVA tenderness. Full range of motion noted. Skin: Skin warm and dry. Normal skin color. Normal skin turgor. No rashes/lesions/lacerations noted. Extremities: No lower extremity edema. Extremities exhibit normal range of motion. Extremities nontender. Neuro: Oriented X 3. Cranial nerve exam: II-XII are grossly intact No motor deficit. No sensory deficit. Reflexes normal. Course Reevaluation(s) Reevaluation #1: 83-year-old male came in for evaluation of dysuria and frequency urination, patient has a UTI started on ceftriaxone patient meet criteria for SIRS without septic shock or severe sepsis. While patient in the emergency room walked to the bathroom when started to have shortness of breath, O2 sat went down to 87% on room air. Time: 17:48 Medications Administered Discontinued Medications Generic Name Dose Route Start Last Admin Trade Name Freq PRN Reason Stop Dose Admin Albuterol Sulfate 5 mg/ 0 mg 08/09/23 17:34 08/09/23 17:40 Albuterol/Ipratropium 3 ml INHALE 08/09/23 17:35 7.5 each ONCE ONE Administration Sodium Chloride 1,000 mls @ 999 mls/hr 08/09/23 13:39 08/09/23 14:40 Ns IV 08/09/23 14:39 999 mls/hr .Q1H1M ONE Administration Ceftriaxone Sodium 1 gm/ 50 mls @ 100 mls/hr 08/09/23 13:39 08/09/23 16:24 Sodium Chloride IV 08/09/23 14:08 Infused ONCE ONE Infusion Methylprednisolone Sodium Succinate 125 mg 08/09/23 17:14 08/09/23 17:30 Methylprednisolone Sod Succ 125 Mg/2 Ml Vial IVPUSH 08/09/23 17:15 125 mg ONCE ONE Administration Medical Decision Making Differential Diagnosis Differential Diagnoses: The differential diagnosis associated with the presentation includes ( COPD exacerbation, pneumonia, pneumothorax, pleural effusion, UTI, electrolyte derangement, severe anemia.) Admission/Observation Consideration of admission/observation: Escalation of care including admission/observation considered Consult Healthcare Provider Management of the patient was discussed with: Hospitalist ( Dr. Hull) Lab Data MDM Lab Attestation statement: I reviewed the patient's lab results. 08/09/23 13:07 08/09/23 13:07 Labs: Lab Results 08/09/23 08/09/23 08/09/23 Range/Units 13:05 13:07 14:19 WBC 18.5 H (4.8-10.8) X10*3/uL RBC 3.90 L (4.60-5.80) X10*6/uL Hgb 10.3 L (14.0-18.0) g/dl Hct 32.5 L (42.0-52.0) % MCV 83.3 (80.0-98.0) fL MCH 26.4 L (27.0-33.0) pg MCHC 31.7 (31.0-36.0) g/dl RDW 17.2 H (11.0-16.0) % Plt Count 347 (160-400) X10*3/uL MPV 9.6 (9.4-12.4) fL Immature Gran % (Auto) 0.4 (0.0-0.4) % Neut % (Auto) 65.9 (45-73) % Lymph % (Auto) 4.1 L (20-40) % [place] % (Auto) 5.4 (2-11) % Eos % (Auto) 23.7 H (0-4) % Baso % (Auto) 0.5 (0-2) % Lymph # (Auto) 0.8 L (1.2-4.9) X10*3/uL [place] # (Auto) 1.0 (0.1-1.2) X10*3/uL Eos # (Auto) 4.4 H (0.0-0.4) X10*3/uL Baso # (Auto) 0.1 (0.0-0.2) X10*3/uL Abs Immat Gran (auto) 0.08 H (0.00-0.03) X10*3/uL Absolute Neuts (auto) 12.1 H (2.0-8.3) x10*3/uL Absolute Nucleated RBC 0.000 (0.0-0.012) X10*3/uL Nucleated RBC % (auto) 0.0 (0.0-0.2) /100WBC Smear Tech's Comments VERIFIED Sodium 139 (135-145) mmol/L Potassium 3.9 (3.3-5.1) mmol/L Chloride 103 (96-108) mmol/L Carbon Dioxide 27 (22-29) mmol/L Anion Gap 13 (12-20) BUN 12 (9-16) mg/dL Creatinine 0.59 (0.5-1.4) mg/dL Estim Creat Clear Calc 82.2 Estimated GFR > 60 Random Glucose 104 (60-115) mg/dL Lactic Acid 0.7 (0.5-2.0) mmol/L Calcium 9.3 D (8.4-10.2) mg/dL Urine Color Yellow Urine Appearance Turbid Urine pH 8.0 (5.0-9.0) Ur Specific [place] 1.015 (1.005-1.025) Urine Protein 30 (1+) H (Neg-Trace) mg/dL Urine Glucose (UA) Negative (Negative) mg/dL Urine Ketones Negative (Negative) mg/dL Urine Blood Large (3+) H (Negative) Urine Nitrite Negative (Negative) Ur Leukocyte Esterase Small (1+) H (Negative) Urine RBC >20 H (0-2) /HPF Urine WBC 6-10 H (0-5) /HPF Ur Squamous Epith Cells 0-2 (0-2) /HPF Urine Bacteria None Seen (None Seen) Hyaline Casts 0-2 (0-2) /LPF Independent Interpretation I performed an independent interpretation of an: Plain X-Ray ( chest: Diffuse bilateral pulmonary opacities are redemonstrated. Unchanged prominence of the right hilum. When compared with prior study dated 07/01/2023 findings are similar. ) Radiology Impression Discussion of test interpretation with radiology: I have reviewed the radiologist's reading. Chronic Conditions Patient?s care impacted by: Other ( COPD) Discharge Plan Discharge Clinical Impression: Acute UTI, Acute exacerbation of chronic obstructive pulmonary disease (COPD), Frequency of urination Patient Disposition: Admitted As Inpatient Print Language: Citizen [place]
[2023-08-09 13:34] LABS: SLIDE REVIEW VERIFIED
[2023-08-09 13:43] LABS: Anion Gap 13 (12-20); Blood Urea Nitrogen 12 mg/dL (9-16); Calcium 9.3 mg/dL (8.4-10.2); Carbon Dioxide 27 mmol/L (22-29); Chloride 103 mmol/L (96-108); Creatinine Clr Calc Pharmacy 82.2; Estimated Glomerular Filt Rate > 60; Glucose Random 104 mg/dL (60-115); Potassium 3.9 mmol/L (3.3-5.1); Sodium 139 mmol/L (135-145)
[2023-08-09 14:37] LABS: Lactic Acid 0.7 mmol/L (0.5-2.0)
[2023-08-09] MEDS: 0.9 % Sodium Chloride 1,000 ML 999 ML IV (14:40)
[2023-08-09] MEDS: cefTRIAXone sodium 1 GM in 0.9 % Sodium Chloride 50 ML IV (14:40)
[2023-08-09] MEDS: methylPREDNISolone Sod Succ 125 MG/2 ML VIAL IVPUSH (17:30)
[2023-08-09] MEDS: Albuterol Sulfate 5 MG, Albuterol/Iprat 2.5/0.5MG 3 ML 3 ML INHALE (17:40)
--- NOTE | 2023-08-09 18:48 | P.HPHOSP_ITS ---
<Statement entered by Nichelle Hull MD - 08/13/23 14:25> the patient was seen and evaluated with BOY Kasper. I agree with her note, assessment and plan with the following. 83 years old with acute hypoxic failure 2/2 COPD exacerbation and possible UTI steroids, nebulizers, O2 supplement and antibiotics. Rest of evaluations by PA note. History of Present Illness Date of Service: 08/09/23 Attending physician on admission: Nichelle Hull Chief Complaint: dysuria,sob, cough 83-year-old male with history of bronchiectasis, COPD not on home oxygen, HFpEF, hypertension, GERD, glaucoma, history of JESSA, and ICM, paroxysmal atrial fibrillation on eliquis, type 2 diabetes, and hypercholesterolemia presented to the ED for evaluation of increased urinary frequency that has been affecting his sleep over the last 5 days. He denies any dysuria, hematuria, abdominal pain, flank pain, nausea, vomiting. He is also reporting dyspnea both at rest but particularly with exertion, productive cough with yellow sputum ongoing for 1 week. Denies any orthopnea or edema. No fevers, chills, chest pain. No known sick contacts. On arrival, mild tachycardia up to 107 and tachypnea to 26. He was found to be hypoxic to 86% on room air and placed on 2 L supplemental O2 maintaining oximetry 93%. He has a leukocytosis of 18.5. Renal function and electrolyte levels normal. Lactic acid 0.7. Urinalysis significant for 1+ leukocytes, 3+ blood, negative nitrites, positive urinary sediment, negative bacteria. Chest x-ray shows diffuse bilateral pulmonary opacities which unchanged but not improve compared to 06/30 x-ray. In the ED, has received 1 g Rocephin, 125 mg IV methylprednisolone, 1 L IVF, and DuoNeb. Review of Systems 2 Review of Systems: Yes all other systems are reviewed and are negative [facility] Medical History Bronchiectasis COPD (chronic obstructive pulmonary disease) NICM (nonischemic cardiomyopathy) Swallowing problem 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 Kidney stone on left side Paroxysmal atrial fibrillation Congestive heart failure Acute and chronic respiratory failure BPH loc w urin obs/LUTS Urinary retention History of COVID-19 Chronic anticoagulation History of pneumothorax Diabetes Supplemental oxygen dependent Kidney stone on left side Hearing loss JESSA (mycobacterium avium-intracellulare) Bronchiectasis Glaucoma Pure hypercholesterolemia GERD (gastroesophageal reflux disease) History of MAC infection Essential hypertension Family History Father No problems noted. Mother Medical history unknown Sister Diabetes Daughter In good health Son In good health Brother No problems noted. Surgical History History of transurethral resection of bladder tumor (TURBT) History of cataract surgery History of left inguinal hernia repair History of bronchoscopy History of colonoscopy History of lumbar surgery History of cystoscopy Social History Household Members: None Housing: Apartment Housing Other:: Gianluca Mack Are you a primary medicare interviewer to a significant other at home: No Do you presently have visiting nurse or other home services: No Alcohol intake: never Comment: 1:1 sitter in room Patient Tobacco Use Status: Former Tobacco user Tobacco use type: Cigarette e-Cigarette/Vaping Use: Former Use Second Hand Smoke Exposure: No Advance Directives: Yes Advance Directives on File: Yes Advance Directives Date on File: 02/03/22 service: No Current occupational status: retired Cognitive needs: No Hearing needs: Yes Vision needs: Yes Meds Allergies Allergy/AdvReac Type Severity Reaction Status Date / Time Penicillins [PENICILLINS] Allergy Intermediate PASSED Verified 08/09/23 13:00 OUT trazodone Allergy Intermediate tremors Verified 08/09/23 13:00 brimonidine [From Alphagan P] Allergy Unknown Verified 08/09/23 13:00 diphenhydramine Allergy Unknown Verified 08/09/23 13:00 [From Benadryl] Home Medications ?Medication ?Instructions ?Recorded ?Confirmed ?Last Taken ?Type albuterol sulfate 90 mcg/actuation 2 puff inhalation Q4H PRN wheezing 03/09/23 06/29/23 Unknown History aerosol inhaler (Ventolin HFA) finasteride 5 mg tablet 5 mg PO DAILY 03/09/23 06/29/23 03/08/23 History lovastatin 10 mg tablet 10 mg PO DAILY 03/09/23 06/29/23 03/08/23 History travoprost 0.004 % eye drops 1 drp ophthalmic-Right BEDTIME 03/09/23 06/29/23 03/07/23 History bumetanide 1 mg tablet 1 mg PO DAILY 06/29/23 06/29/23 Unknown History Physical Exam 2 Vital Signs and Narrative: Vital Signs: Last Vital Signs Temp 98.2 F 08/09/23 16:25 Pulse 95 08/09/23 17:40 Resp 21 H 08/09/23 17:40 BP 140/83 H 08/09/23 16:25 Pulse Ox 93 08/09/23 16:25 O2 Del Method Nasal Cannula 08/09/23 16:25 O2 Flow Rate 2 08/09/23 16:25 Oxygen Flow Rate 4 08/09/23 12:55 BMI result Body Mass Index 21.1 Constitutional - Awake and Alert, No apparent distress Eyes - PERRLA, EOMI Cardiovascular - S1S2, RRR, No edema Respiratory - Normal lung expansion, Normal respiratory effort, No respiratory distress on 2L, bilateral expiratory wheezing (pt receiving duoneb while ausculating) Gastrointestinal - suprapubic tenderness to palpation, ND; +BS; No rebound or guarding Extremities - no calf tenderness bilaterally, no swelling Musculoskeletal - Normal inspection, normal ROM Skin - Warm/Dry Neurological - Alert & oriented x3 Psychological - Appropriate affect Results Labs 08/09/23 13:07 08/09/23 13:07 Labs: Laboratory Results - last 24 hr 08/09/23 08/09/23 08/09/23 13:05 13:07 14:19 MCV 83.3 MCH 26.4 L MCHC 31.7 RDW 17.2 H Plt Count 347 MPV 9.6 Immature Gran % (Auto) 0.4 Neut % (Auto) 65.9 Lymph % (Auto) 4.1 L [place] % (Auto) 5.4 Eos % (Auto) 23.7 H Baso % (Auto) 0.5 Lymph # (Auto) 0.8 L [place] # (Auto) 1.0 Eos # (Auto) 4.4 H Baso # (Auto) 0.1 Abs Immat Gran (auto) 0.08 H Absolute Neuts (auto) 12.1 H Absolute Nucleated RBC 0.000 Nucleated RBC % (auto) 0.0 Smear Tech's Comments VERIFIED Anion Gap 13 Estim Creat Clear Calc 82.2 Estimated GFR > 60 Random Glucose 104 Lactic Acid 0.7 Calcium 9.3 D Urine Color Yellow Urine Appearance Turbid Urine pH 8.0 Ur Specific [place] 1.015 Urine Protein 30 (1+) H Urine Glucose (UA) Negative Urine Ketones Negative Urine Blood Large (3+) H Urine Nitrite Negative Ur Leukocyte Esterase Small (1+) H Urine RBC >20 H Urine WBC 6-10 H Ur Squamous Epith Cells 0-2 Urine Bacteria None Seen Hyaline Casts 0-2 Imaging Radiologist's Impressions: Impressions Chest X-Ray 08/09/23 17:55 IMPRESSION: Diffuse bilateral pulmonary opacities are redemonstrated. Unchanged prominence of the right hilum. When compared with prior study dated 07/01/2023 findings are similar. Assessment and Plan (1) Acute exacerbation of chronic obstructive pulmonary disease (COPD): Status: Acute (2) Acute UTI: Status: Acute (3) Acute hypoxemic respiratory failure: Status: Acute Plan 83-year-old male with history of bronchiectasis, COPD not on home oxygen, HFpEF, hypertension, GERD, glaucoma, history of JESSA, and ICM, paroxysmal atrial fibrillation on eliquis, type 2 diabetes, and hypercholesterolemia admitted for further management of acute COPD exacerbation with acute hypoxemic respiratory failure and UTI # acute COPD exacerbation with acute hypoxemic respiratory failure and sepsis -CXR shows bilateral opacities unresolved from 06/30 with new productive cough and leukocytosis. Chest CT pending -recently completed 3 weeks IV meropenam for ESBL bacteremia thought to be secondary to pulmonary source. Last dose July 19 -leukocytosis 18.5, tachycardia, tachypnea. No lactic acidosis or end-organ damage. No severe sepsis -IV methylprednisolone 40 mg b.i.d. -DuoNebs q.4h while awake, albuterol p.r.n. -Given recent hospitalization with bronchopneumonia and bacteremia-initiate IV vancomycin and Zosyn (initiated ) -continue maintenance inhalers -guaifenesin p.r.n. -follow CBC, cultures # acute UTI -UA with 3+ leukocytes, 3+ blood, negative nitrites, positive urinary sediment, negative bacteria -1 g IV ceftriaxone (initiated 08/08) -follow CBC, cultures # heart failure reduced ejection fraction/ICM -no exacerbation -continue p.o. Bumex, carvedilol # paroxysmal atrial fibrillation-rate controlled -continue Eliquis for anticoagulation and Coreg for rate control # sct-[id number] type 2 diabetes -POC glucose, diabetic diet -Humalog on sliding scale # BPH -continue finasteride and Flomax DVT prophylaxis-Eliquis DNR/DNI, discussed at bedside with patient using bulk tank car unloader. Will need updated MOLST, requested from clinical social worker Patient requires inpatient stay at least 2 midnights for management of acute COPD exacerbation with acute hypoxemic respiratory failure with recent hospital admission for bacteremia requiring broad-spectrum IV antibiotics, supplemental oxygen, and close monitoring respiratory status. Quality Stroke Does the patient have a stroke diagnosis?: No VTE Prior VTE?: No VTE Risk Level:: Medical - moderate - high VTE Device Contraindication: Treatment Not Indicated VTE Drug Contraindication: N/A - Med Ordered
--- NOTE | 2023-08-09 18:54 | MHC.EDTECH ---
Patient given dinner tray
[2023-08-09] MEDS: Albuterol/Iprat 2.5/0.5MG 3 ML AMPUL.NEB INHALE (19:13)
[2023-08-09] MEDS: cefEPime HCl 2 GM in 0.9 % Sodium Chloride 50 ML IV (19:25)
--- NOTE | 2023-08-09 19:42 | PHA.MEDREC ---
Pharmacy Consult ? Medication Reconciliation Pharmacy has completed the medication reconciliation. Confirmed medications from list provided by [facility] office.
--- NOTE | 2023-08-09 20:13 | PHA.MEDREC ---
Pharmacy Consult ? Medication Reconciliation Pharmacy has completed the medication reconciliation.med rec complete. Spoke to patients health care proxy who explained that patient had been in rehab and was discharged home with VNA. The VNA list is believed to be the most up to date and this is what was used to update patient home meds.
[2023-08-09] MEDS: vancomycin HCL 1,500 MG in 0.9 % Sodium Chloride 500 ML 333.33 MG IV (20:38)
--- NOTE | 2023-08-09 21:30 | PHA.PROG ---
Admission Date/Time: August 09, 2023 18:42 Indication: RESPIRATORY INFECTION Weight in k.2 kg Adjusted body weight in Kg: [place] body weight in Kg: Obesity Dosing Indication % IBW: Serum Creatinine - Last 168 Hours 08/09/23 13:07 Creatinine 0.59 Estimated CrCl and GFR - Last 168 Hours 08/09/23 13:07 Estim Creat Clear Calc 82.2 Estimated GFR > 60 Vancomycin Loading Dose: 1500 MG Current Vancomycin Dosing Regimen: 1000 MG Q12H Vancomycin Monitoring using AUC goal of 400 - 600 range with trough as surrogate marker: OYU=404 TROUGH=18.3 Date and Time for next Vancomycin Level to be drawn: 08/11/23@0700 Pharmacist Comments on Vancomycin Plan: Vancomycin dosing will take advantage of [employer] as a clinical decision support tool that uses Bayesian modeling to calculate individual patient's pharmacokinetic parameters and forecast the patient's drug concentration time course with the target goal AUC 24 range of 400 - 600 mg/L/hr.
[2023-08-09 22:15] LABS: Glucose, Whole Blood 189 mg/dL (60-115)
[2023-08-09] MEDS: Insulin Lispro 100 UNIT/ML 3 ML VIAL SUBCUT (22:20)
[2023-08-09] MEDS: Apixaban 5 MG TABLET PO (22:21)
[2023-08-09] MEDS: carvediloL 6.25 MG TABLET PO (22:21)
--- NOTE | 2023-08-09 23:37 | PC.NURSE ---
Addendum entered by Estefani Deal 08/09/23 23:39: ivf appear to be infused as well, unsure of timing. Original Note: assumed care of pt, axox4, resting comfortably. vanco infusion appears to be infused, unsure exact time. resp even and unlabored. nad. call yin within reach.
[2023-08-10] VITALS (9 sets, daily range): BP systolic 126–142; BP diastolic 63–80; PULSE 69–82; RESP 14–24; TEMP 36.1–36.8; O2SAT 94–100; BMI 21.0
[2023-08-10] MEDS: cefEPime HCl 2 GM in 0.9 % Sodium Chloride 50 ML IV ×3 (03:00→21:26)
[2023-08-10] MEDS: 0.9 % Sodium Chloride Flush 3 ML SYRINGE IVFLUSH ×4 (03:01→21:26)
--- NOTE | 2023-08-10 03:23 | PC.NURSE ---
assumed care 030
[2023-08-10 05:52] LABS: Basophils Percent Auto 0.2 % (0-2); Eosinophils Percent Auto 0.3 % (0-4); Hematocrit 29.6 % (42.0-52.0); Hemoglobin 9.3 g/dl (14.0-18.0); Imm Gran Abs Auto 0.09 X10*3/uL (0.00-0.03); Imm Gran Pct Auto 0.8 % (0.0-0.4); Lymphocytes Absolute Auto 0.4 X10*3/uL (1.2-4.9); Lymphocytes Percent Auto 3.4 % (20-40); MANUAL DIFF FLAG SCAN; Mean Corpuscular HGB Conc 31.4 g/dl (31.0-36.0); Mean Corpuscular Volume 85.8 fL (80.0-98.0); Mean Platelet Volume 9.5 fL (9.4-12.4); Monocytes Absolute Auto 0.2 X10*3/uL (0.1-1.2); Monocytes Percent Auto 1.4 % (2-11); Neutrophils Absolute Auto 11.1 x10*3/uL (2.0-8.3); Neutrophils Percent Auto 93.9 % (45-73); Platelet Count 307 X10*3/uL (160-400); Red Blood Count 3.45 X10*6/uL (4.60-5.80); Red Cell Distribution Width 17.6 % (11.0-16.0); SCAN SMEAR FLAG 1; White Blood Count 11.8 X10*3/uL (4.8-10.8)
[2023-08-10 06:13] LABS: SLIDE REVIEW VERIFIED
[2023-08-10 06:18] LABS: Anion Gap 11 (12-20); Blood Urea Nitrogen 14 mg/dL (9-16); Calcium 8.8 mg/dL (8.4-10.2); Carbon Dioxide 26 mmol/L (22-29); Chloride 106 mmol/L (96-108); Creatinine Clr Calc Pharmacy 79.5; Estimated Glomerular Filt Rate > 60; Glucose Random 130 mg/dL (60-115); Potassium 4.4 mmol/L (3.3-5.1); Sodium 139 mmol/L (135-145)
[2023-08-10] MEDS: Omeprazole 20 MG CAPSULE.DR PO (06:18)
[2023-08-10] MEDS: methylPREDNISolone Sod Succ 40 MG/ML VIAL IVPUSH (06:18)
--- NOTE | 2023-08-10 06:31 | PC.NURSE ---
pt arousable to voice, Ukrainian speaking, medicated per MAR, pt was able to swallow pills whole w/o incident
[2023-08-10 07:26] LABS: Glucose, Whole Blood 134 mg/dL (60-115)
[2023-08-10] MEDS: Albuterol/Iprat 2.5/0.5MG 3 ML AMPUL.NEB INHALE ×3 (08:01→20:30)
[2023-08-10 08:12] LABS: Glucose, Whole Blood 152 mg/dL (60-115)
--- NOTE | 2023-08-10 09:35 | MHC.CM.PN ---
Addendum entered by Parul Moraes 08/10/23 14:12: P.T. HAS RECOMMENDED PULMONARY REHAB AND [facility] IS OFFERING A BED AFTER HIS QHS (SUNDAY) PT HAS BEEN THERE RECENTLY. CM WILL CONTINUE TO FOLLOW Original Note: IMM DELIVERED. PT LIVES ALONE. PT IS ACTIVE WITH [facility] AND HAS [employer] GENER[employer] HRS (2 HRS/DAY) PT USES [facility] FOR MAJOR MOBILITY. [facility] +HCP ON FILE. PCP DR. AREVALO [place] [facility] [place] DP: HOME WITH RESUMPTION OF SERVICES IS THE GOAL. PT MAY NEEDS BLS TRANSPORT. CM WILL CONTINUE TO FOLLOW FOR ANY CHANGE TO DC PLAN/NEEDS.
[2023-08-10] MEDS: vancomycin HCL 1,000 MG in 0.9 % Sodium Chloride 250 ML 270 MG IV ×2 (09:41→22:03)
[2023-08-10] MEDS: carvediloL 6.25 MG TABLET PO ×2 (09:42→21:26)
[2023-08-10] MEDS: Finasteride 5 MG TABLET PO (09:43)
[2023-08-10] MEDS: Apixaban 5 MG TABLET PO ×2 (09:43→21:26)
[2023-08-10] MEDS: Furosemide 20 MG TABLET PO (09:43)
[2023-08-10] MEDS: Tamsulosin HCL 0.4 MG CAPSULE PO (09:43)
[2023-08-10 11:21] LABS: Glucose, Whole Blood 161 mg/dL (60-115)
[2023-08-10] MEDS: Insulin Lispro 100 UNIT/ML 3 ML VIAL SUBCUT (11:36)
--- NOTE | 2023-08-10 12:18 | HO.PM.IMPN ---
Subjective Subjective Date of Service: 08/10/23 Interval History: seen and evaluated this morning feels weak and tired need 2 assistants to ambulate reporting frequent urination No feve ror chills Review of Systems Review of Systems: Yes all other systems are reviewed and are negative Physical Exam Vital Signs: Vital Signs: Last Vital Signs Temp 97.7 F 08/10/23 08:47 Pulse 69 08/10/23 12:09 Resp 20 08/10/23 12:09 BP 140/71 H 08/10/23 08:47 Pulse Ox 100 08/10/23 08:47 O2 Del Method Nasal Cannula 08/10/23 08:47 O2 Flow Rate 2 08/10/23 08:47 Oxygen Flow Rate 4 08/09/23 12:55 BMI result Body Mass Index 21.1 Const: Other: Constitutional : Awake, interactive, not in distress Neck : Normal inspection, Supple Cardiovascular : RRR, no JVP, no lower extremity edema Respiratory : decreased bilateral air entry, no crackles,scattered expiratory wheezes, on 2L O2 Gastrointestinal: soft, lax, Normal bowel sounds, Non tender Skin : Warm, Dry Neurological : Alert & oriented x3, No focal deficit Objective Data Active Medications Acetaminophen (Acetaminophen 325 Mg Tablet) 650 mg PO Q6H PRN PRN Reason: Pain, Mild (Pain Scale 1-3) Albuterol Sulfate (Albuterol Sulfate (0.083%) 2.5 Mg/3 Ml Vial.Neb) 2.5 mg INHALE Q2H PRN PRN Reason: Shortness of Breath/Wheezing Albuterol Sulfate (Albuterol Sulfate 90 Mcg 8 Gm Inhaler) 2 puff INHALE Q4H PRN PRN Reason: wheezing Albuterol/Ipratropium (Albuterol/Iprat 2.5/0.5mg 3 Ml Ampul.Neb) 3 ml INHALE RQ4H WHILE AWAKE [facility] Last Admin: 08/10/23 12:09 Dose: 3 ml Documented By: DONNA Albuterol/Ipratropium (Albuterol/Iprat 2.5/0.5mg 3 Ml Ampul.Neb) 3 ml INHALE QID PRN PRN Reason: for dyspnea Apixaban (Apixaban 5 Mg Tablet) 5 mg PO BID [facility] Last Admin: 08/10/23 09:43 Dose: 5 mg Documented By: HO.GRAZIC Carvedilol (Carvedilol 6.25 Mg Tablet) 6.25 mg PO BID [facility]; Protocol Last Admin: 08/10/23 09:42 Dose: 6.25 mg Documented By: DANNY Finasteride (Finasteride 5 Mg Tablet) 5 mg PO DAILY [facility] Last Admin: 08/10/23 09:43 Dose: 5 mg Documented By: DANNY Furosemide (Furosemide 20 Mg Tablet) 20 mg PO DAILY [facility]; Protocol Last Admin: 08/10/23 09:43 Dose: 20 mg Documented By: DANNY Glucose (Glucose Gel 15 Gm Gel..Gram.) 15 gm PO Q15M PRN; Protocol PRN Reason: per Hypoglycemia Standing Ord. Guaifenesin (Guaifenesin 200 Mg/10 Ml 10 Ml Liquid) 10 ml PO Q4H PRN PRN Reason: Cough Dextrose (D10) 250 mls @ 750 mls/hr IV Q15M PRN; Protocol PRN Reason: per Hypoglycemia Standing Ord. Cefepime HCl 2 gm/ Sodium (Chloride) 50 mls @ 100 mls/hr IV Q8H [facility] Last Infusion: 08/10/23 11:41 Dose: Infused Documented By: DANNY Vancomycin HCl 1,000 mg/ (Sodium Chloride) 270 mls @ 270 mls/hr IV Q12H [facility] Last Infusion: 08/10/23 10:46 Dose: Infused Documented By: DANNY Insulin Human Lispro (Insulin Lispro 100 Unit/Ml 3 Ml Vial) 0 unit SUBCUT QIDACHS [facility]; Protocol Last Admin: 08/10/23 11:36 Dose: 2 unit Documented By: DANNY Magnesium Hydroxide (Milk Of Magnesia 30 Ml Oral.Susp) 30 ml PO DAILY PRN PRN Reason: Constipation Melatonin (Melatonin 3 Mg Tablet) 6 mg PO BEDTIME PRN PRN Reason: Insomnia Methylprednisolone Sodium Succinate (Methylprednisolone Sod Succ 40 Mg/Ml Vial) 40 mg IVPUSH Q24H [facility] Non-Formulary Medication (Brimonidine-Timolol [Combigan]) 1 drop EYE-BOTH BID [facility] Non-Formulary Medication (Umeclidinium-Vilanterol [Anoro Ellipta]) 1 inhalation INHALE DAILY [facility] Omeprazole (Omeprazole 20 Mg Capsule.Dr) 20 mg PO DAILY@0630 [facility] Last Admin: 08/10/23 06:18 Dose: 20 mg Documented By: ASHLEE Ondansetron HCl (Ondansetron Hcl 4 Mg/2 Ml Vial) 4 mg IVPUSH Q8H PRN PRN Reason: Nausea and Vomiting Pharmacy Consult (Consult Rx Vancomycin Dosing) 1 each MISCELLANE DAILY PRN PRN Reason: Consult order Pravastatin Sodium (Pravastatin Sodium 10 Mg Tablet) 10 mg PO BEDTIME [facility] Sodium Chloride (0.9 % Sodium Chloride Flush 3 Ml Syringe) 3 ml IVFLUSH QSHIFT [facility] Last Admin: 08/10/23 07:41 Dose: 3 ml Documented By: NESTOR Tamsulosin HCl (Tamsulosin Hcl 0.4 Mg Capsule) 0.8 mg PO DAILY [facility] Labs 08/10/23 05:23 08/10/23 05:23 Labs: Laboratory Results - last 24 hr 08/09/23 08/09/23 08/09/23 13:05 13:07 14:19 MCV 83.3 MCH 26.4 L MCHC 31.7 RDW 17.2 H Plt Count 347 MPV 9.6 Immature Gran % (Auto) 0.4 Neut % (Auto) 65.9 Lymph % (Auto) 4.1 L [place] % (Auto) 5.4 Eos % (Auto) 23.7 H Baso % (Auto) 0.5 Lymph # (Auto) 0.8 L [place] # (Auto) 1.0 Eos # (Auto) 4.4 H Baso # (Auto) 0.1 Abs Immat Gran (auto) 0.08 H Absolute Neuts (auto) 12.1 H Absolute Nucleated RBC 0.000 Nucleated RBC % (auto) 0.0 Smear Tech's Comments VERIFIED Anion Gap 13 Estim Creat Clear Calc 82.2 Estimated GFR > 60 POC Glucose Random Glucose 104 Lactic Acid 0.7 Calcium 9.3 D Urine Color Yellow Urine Appearance Turbid Urine pH 8.0 Ur Specific [place] 1.015 Urine Protein 30 (1+) H Urine Glucose (UA) Negative Urine Ketones Negative Urine Blood Large (3+) H Urine Nitrite Negative Ur Leukocyte Esterase Small (1+) H Urine RBC >20 H Urine WBC 6-10 H Ur Squamous Epith Cells 0-2 Urine Bacteria None Seen Hyaline Casts 0-2 08/09/23 08/10/23 08/10/23 22:12 05:23 07:20 MCV 85.8 MCH 27.0 MCHC 31.4 RDW 17.6 H Plt Count 307 MPV 9.5 Immature Gran % (Auto) 0.8 H Neut % (Auto) 93.9 H Lymph % (Auto) 3.4 L [place] % (Auto) 1.4 L Eos % (Auto) 0.3 Baso % (Auto) 0.2 Lymph # (Auto) 0.4 L [place] # (Auto) 0.2 Eos # (Auto) 0.0 Baso # (Auto) 0.0 Abs Immat Gran (auto) 0.09 H Absolute Neuts (auto) 11.1 H Absolute Nucleated RBC 0.000 Nucleated RBC % (auto) 0.0 Smear Tech's Comments VERIFIED Anion Gap 11 L Estim Creat Clear Calc 79.5 Estimated GFR > 60 POC Glucose 189 H 134 H Random Glucose 130 H Lactic Acid Calcium 8.8 Urine Color Urine Appearance Urine pH Ur Specific [place] Urine Protein Urine Glucose (UA) Urine Ketones Urine Blood Urine Nitrite Ur Leukocyte Esterase Urine RBC Urine WBC Ur Squamous Epith Cells Urine Bacteria Hyaline Casts 08/10/23 08/10/23 08:05 11:07 MCV MCH MCHC RDW Plt Count MPV Immature Gran % (Auto) Neut % (Auto) Lymph % (Auto) [place] % (Auto) Eos % (Auto) Baso % (Auto) Lymph # (Auto) [place] # (Auto) Eos # (Auto) Baso # (Auto) Abs Immat Gran (auto) Absolute Neuts (auto) Absolute Nucleated RBC Nucleated RBC % (auto) Smear Tech's Comments Anion Gap Estim Creat Clear Calc Estimated GFR POC Glucose 152 H 161 H Random Glucose Lactic Acid Calcium Urine Color Urine Appearance Urine pH Ur Specific [place] Urine Protein Urine Glucose (UA) Urine Ketones Urine Blood Urine Nitrite Ur Leukocyte Esterase Urine RBC Urine WBC Ur Squamous Epith Cells Urine Bacteria Hyaline Casts Microbiology Microbiology Results: Microbiology 08/09/23 Unknown Urine Culture - Final Urine clean catch - Urine swanson top No growth. Assessment and Plan (1) Acute hypoxemic respiratory failure: Status: Acute (2) Acute UTI: Status: Acute (3) Acute exacerbation of chronic obstructive pulmonary disease (COPD): Status: Acute (4) Bronchiectasis: Status: Acute (5) Frequency of urination: Status: Acute Plan 83-year-old male with history of bronchiectasis, COPD not on home oxygen, HFpEF, hypertension, GERD, glaucoma, history of JESSA, and ICM, paroxysmal atrial fibrillation on eliquis, type 2 diabetes, and hypercholesterolemia admitted for further management of acute COPD exacerbation with acute hypoxemic respiratory failure and UTI # acute hypoxemic respiratory failure and sepsis 2/2 acute COPD exacerbation and possible pneumonia CXR shows bilateral opacities unresolved from 06/30 with new productive cough and leukocytosis. Chest CT pending completed 3 weeks IV meropenam for ESBL bacteremia secondary to pulmonary source. Last dose July 19 WBCs trending down Continue IV methylprednisolone 40 mg b.i.d. Continue DuoNebs q.4h while awake, albuterol p.r.n. IV vancomycin and Cefepime (initiated ) maintenance inhalers guaifenesin p.r.n. follow cultures Follow Vanco trough # acute UTI w increase frequency Pending cultures on Cefepime increase Tamsolusin to 0.8 mg daily # heart failure reduced ejection fraction/ICM no exacerbation Continue Bumex, carvedilol # paroxysmal atrial fibrillation-rate controlled continue Eliquis for anticoagulation and Coreg for rate control # [id number] type 2 diabetes POC glucose, diabetic diet Humalog on sliding scale # BPH continue finasteride and Flomax DVT prophylaxis-Eliquis DNR/DNI, discussed at bedside with patient using resistor inspector. Will need updated MOLST, requested from social media project manager Patient requires inpatient stay overnight for management of acute COPD exacerbation with acute hypoxemic respiratory failure pending final blood and urine culture Quality Stroke Does the patient have a stroke diagnosis?: No VTE Prior VTE?: No VTE Risk Level:: Medical - moderate - high VTE Device Contraindication: Treatment Not Indicated VTE Drug Contraindication: N/A - Med Ordered
[2023-08-10 15:35] LABS: Glucose, Whole Blood 137 mg/dL (60-115)
[2023-08-10 19:57] LABS: Glucose, Whole Blood 128 mg/dL (60-115)
[2023-08-10] MEDS: Pravastatin Sodium 10 MG TABLET PO (21:26)
[2023-08-11] VITALS (9 sets, daily range): BP systolic 110–133; BP diastolic 53–74; PULSE 62–116; RESP 16–24; TEMP 36–36.4; O2SAT 75–95
[2023-08-11] MEDS: Melatonin 3 MG TABLET 6 MG PO (01:46)
[2023-08-11] MEDS: cefEPime HCl 2 GM in 0.9 % Sodium Chloride 50 ML IV ×2 (04:36→11:42)
[2023-08-11] MEDS: Omeprazole 20 MG CAPSULE.DR PO (06:11)
[2023-08-11 07:00] LABS: Hematocrit 31.4 % (42.0-52.0); Hemoglobin 9.6 g/dl (14.0-18.0); Mean Corpuscular HGB Conc 30.6 g/dl (31.0-36.0); Mean Corpuscular Hemoglobin 26.4 pg (27.0-33.0); Mean Corpuscular Volume 86.5 fL (80.0-98.0); Mean Platelet Volume 9.6 fL (9.4-12.4); Platelet Count 366 X10*3/uL (160-400); Red Blood Count 3.63 X10*6/uL (4.60-5.80); Red Cell Distribution Width 16.9 % (11.0-16.0); White Blood Count 14.5 X10*3/uL (4.8-10.8)
[2023-08-11 07:25] LABS: Glucose, Whole Blood 82 mg/dL (60-115)
[2023-08-11 07:31] LABS: Creatinine Clr Calc Pharmacy 79.2; Estimated Glomerular Filt Rate > 60
[2023-08-11 07:39] LABS: Anion Gap 9 (12-20); Blood Urea Nitrogen 16 mg/dL (9-16); Calcium 8.8 mg/dL (8.4-10.2); Carbon Dioxide 30 mmol/L (22-29); Chloride 105 mmol/L (96-108); Creatinine Clr Calc Pharmacy 79.2; Estimated Glomerular Filt Rate > 60; Glucose Random 86 mg/dL (60-115); Potassium 3.3 mmol/L (3.3-5.1); Sodium 141 mmol/L (135-145)
[2023-08-11 07:52] LABS: Vancomycin Random 17.3 mcg/mL (15-20)
--- NOTE | 2023-08-11 08:04 | HE.PHANOTE ---
Vancomcyin Vancomycin trough 17.3. predicted AUC of 611 with current regimen of 1000 mg q12h. Decreased dose to 750 mg q12h for predicted auc of 466. Cr stable. Next level 08/12/23 @0700
[2023-08-11] MEDS: Albuterol/Iprat 2.5/0.5MG 3 ML AMPUL.NEB INHALE ×4 (08:21→19:36)
[2023-08-11] MEDS: vancomycin HCL 750 MG in 0.9 % Sodium Chloride 250 ML 265 MG IV ×2 (09:51→22:11)
[2023-08-11] MEDS: methylPREDNISolone Sod Succ 40 MG/ML VIAL IVPUSH ×2 (09:52→22:09)
[2023-08-11] MEDS: Apixaban 5 MG TABLET PO ×2 (09:53→22:11)
[2023-08-11] MEDS: carvediloL 6.25 MG TABLET PO ×2 (09:53→22:10)
[2023-08-11] MEDS: Tamsulosin HCL 0.4 MG CAPSULE 0.8 MG PO (09:53)
[2023-08-11] MEDS: Finasteride 5 MG TABLET PO (09:53)
[2023-08-11] MEDS: Furosemide 20 MG TABLET PO (09:54)
[2023-08-11] MEDS: 0.9 % Sodium Chloride Flush 3 ML SYRINGE IVFLUSH ×2 (09:54→22:11)
[2023-08-11] MEDS: guaiFENesin 200 MG/10 ML 10 ML LIQUID PO (10:45)
[2023-08-11] MEDS: Furosemide 20 MG/2 ML VIAL IVPUSH (10:52)
[2023-08-11 11:23] LABS: Glucose, Whole Blood 159 mg/dL (60-115)
[2023-08-11] MEDS: Insulin Lispro 100 UNIT/ML 3 ML VIAL SUBCUT ×2 (11:43→22:11)
--- NOTE | 2023-08-11 12:38 | HO.PM.IMPN ---
Subjective Subjective Date of Service: 08/11/23 Interval History: seen and evaluated this morning feels weak and tired , increase O2 requirement CXR showing worsening pneumonia No feve ror chills Review of Systems Review of Systems: Yes all other systems are reviewed and are negative Physical Exam Vital Signs: Vital Signs: Last Vital Signs Temp 97.6 F 08/11/23 07:24 Pulse 116 H 08/11/23 10:42 Resp 24 H 08/11/23 10:42 BP 131/74 08/11/23 10:52 Pulse Ox 92 08/11/23 07:24 O2 Del Method Nasal Cannula 08/11/23 07:24 O2 Flow Rate 2 08/11/23 07:24 Oxygen Flow Rate 4 08/09/23 12:55 BMI result Body Mass Index 21.0 Const: Other: Constitutional : Awake, interactive, in respiratory distress Neck : Normal inspection, Supple Cardiovascular : RRR, no JVP, no lower extremity edema Respiratory : decreased bilateral air entry, no crackles,scattered expiratory wheezes, on NRB 15L Gastrointestinal: soft, lax, Normal bowel sounds, Non tender Skin : Warm, Dry Neurological : Alert & oriented x3, No focal deficit Objective Data Active Medications Acetaminophen (Acetaminophen 325 Mg Tablet) 650 mg PO Q6H PRN PRN Reason: Pain, Mild (Pain Scale 1-3) Albuterol Sulfate (Albuterol Sulfate (0.083%) 2.5 Mg/3 Ml Vial.Neb) 2.5 mg INHALE Q2H PRN PRN Reason: Shortness of Breath/Wheezing Albuterol Sulfate (Albuterol Sulfate 90 Mcg 8 Gm Inhaler) 2 puff INHALE Q4H PRN PRN Reason: wheezing Albuterol/Ipratropium (Albuterol/Iprat 2.5/0.5mg 3 Ml Ampul.Neb) 3 ml INHALE RQ4H WHILE AWAKE [facility] Last Admin: 08/11/23 10:42 Dose: 3 ml Documented By: DONNA Albuterol/Ipratropium (Albuterol/Iprat 2.5/0.5mg 3 Ml Ampul.Neb) 3 ml INHALE QID PRN PRN Reason: for dyspnea Apixaban (Apixaban 5 Mg Tablet) 5 mg PO BID [facility] Last Admin: 08/11/23 09:53 Dose: 5 mg Documented By: KERRY Carvedilol (Carvedilol 6.25 Mg Tablet) 6.25 mg PO BID [facility]; Protocol Last Admin: 08/11/23 09:53 Dose: 6.25 mg Documented By: KERRY Finasteride (Finasteride 5 Mg Tablet) 5 mg PO DAILY [facility] Last Admin: 08/11/23 09:53 Dose: 5 mg Documented By: KERRY Furosemide (Furosemide 20 Mg Tablet) 20 mg PO DAILY [facility]; Protocol Last Admin: 08/11/23 09:54 Dose: 20 mg Documented By: KERRY Glucose (Glucose Gel 15 Gm Gel..Gram.) 15 gm PO Q15M PRN; Protocol PRN Reason: per Hypoglycemia Standing Ord. Guaifenesin (Guaifenesin 200 Mg/10 Ml 10 Ml Liquid) 10 ml PO Q4H PRN PRN Reason: Cough Last Admin: 08/11/23 10:45 Dose: 10 ml Documented By: KERRY Dextrose (D10) 250 mls @ 750 mls/hr IV Q15M PRN; Protocol PRN Reason: per Hypoglycemia Standing Ord. Vancomycin HCl 750 mg/ Sodium (Chloride) 265 mls @ 265 mls/hr IV Q12H [facility] Last Infusion: 08/11/23 11:48 Dose: Infused Documented By: KERRY Metronidazole (Flagyl) 500 mg in 100 mls @ 100 mls/hr IV Q8H [facility] Insulin Human Lispro (Insulin Lispro 100 Unit/Ml 3 Ml Vial) 0 unit SUBCUT QIDACHS [facility]; Protocol Last Admin: 08/11/23 11:43 Dose: 2 unit Documented By: KERRY Magnesium Hydroxide (Milk Of Magnesia 30 Ml Oral.Susp) 30 ml PO DAILY PRN PRN Reason: Constipation Melatonin (Melatonin 3 Mg Tablet) 6 mg PO BEDTIME PRN PRN Reason: Insomnia Last Admin: 08/11/23 01:46 Dose: 6 mg Documented By: ASHLIE Methylprednisolone Sodium Succinate (Methylprednisolone Sod Succ 40 Mg/Ml Vial) 40 mg IVPUSH Q24H [facility] Last Admin: 08/11/23 09:52 Dose: 40 mg Documented By: KERRY Non-Formulary Medication (Brimonidine-Timolol [Combigan]) 1 drop EYE-BOTH BID [facility] Non-Formulary Medication (Umeclidinium-Vilanterol [Anoro Ellipta]) 1 inhalation INHALE DAILY [facility] Omeprazole (Omeprazole 20 Mg Capsule.) 20 mg PO DAILY@0630 [facility] Last Admin: 08/11/23 06:11 Dose: 20 mg Documented By: ASHLIE Ondansetron HCl (Ondansetron Hcl 4 Mg/2 Ml Vial) 4 mg IVPUSH Q8H PRN PRN Reason: Nausea and Vomiting Pharmacy Consult (Consult Rx Vancomycin Dosing) 1 each MISCELLANE DAILY PRN PRN Reason: Consult order Pravastatin Sodium (Pravastatin Sodium 10 Mg Tablet) 10 mg PO BEDTIME [facility] Last Admin: 08/10/23 21:26 Dose: 10 mg Documented By: ASHLIE Sodium Chloride (0.9 % Sodium Chloride Flush 3 Ml Syringe) 3 ml IVFLUSH QSHIFT [facility] Last Admin: 08/11/23 09:54 Dose: 3 ml Documented By: KERRY Tamsulosin HCl (Tamsulosin Hcl 0.4 Mg Capsule) 0.8 mg PO DAILY [facility] Last Admin: 08/11/23 09:53 Dose: 0.8 mg Documented By: KERRY Labs 08/11/23 06:15 08/11/23 06:15 Labs: Laboratory Results - last 24 hr 08/10/23 08/10/23 08/11/23 15:26 19:46 06:15 MCV 86.5 MCH 26.4 L MCHC 30.6 L RDW 16.9 H Plt Count 366 MPV 9.6 Absolute Nucleated RBC 0.000 Nucleated RBC % (auto) 0.0 Anion Gap 9 L Estim Creat Clear Calc 79.2 Estimated GFR POC Glucose 137 H 128 H Random Glucose Calcium Random Vancomycin 08/11/23 08/11/23 08/11/23 06:15 06:15 06:55 MCV MCH MCHC RDW Plt Count MPV Absolute Nucleated RBC Nucleated RBC % (auto) Anion Gap Estim Creat Clear Calc 79.2 Estimated GFR > 60 > 60 POC Glucose Random Glucose 86 Calcium 8.8 Random Vancomycin 17.3 08/11/23 08/11/23 07:22 11:09 MCV MCH MCHC RDW Plt Count MPV Absolute Nucleated RBC Nucleated RBC % (auto) Anion Gap Estim Creat Clear Calc Estimated GFR POC Glucose 82 159 H Random Glucose Calcium Random Vancomycin Microbiology Microbiology Results: Microbiology 08/09/23 14:37 Blood Culture - Preliminary Blood - Venous No growth after 24 hours. 08/09/23 14:37 Blood Culture - Preliminary Blood - Venous No growth after 24 hours. 08/09/23 Unknown Urine Culture - Final Urine clean catch - Urine swanson top No growth. Assessment and Plan (1) Acute hypoxemic respiratory failure: Status: Acute (2) Acute exacerbation of chronic obstructive pulmonary disease (COPD): Status: Acute (3) Bronchiectasis: Status: Acute (4) Pneumonia: Status: Acute (5) COPD exacerbation: Status: Acute Plan 83-year-old male with history of bronchiectasis, COPD not on home oxygen, HFpEF, hypertension, GERD, glaucoma, history of JESSA, and ICM, paroxysmal atrial fibrillation on eliquis, type 2 diabetes, and hypercholesterolemia admitted for further management of acute COPD exacerbation with acute hypoxemic respiratory failure and UTI # acute hypoxemic respiratory failure and sepsis 2/ acute COPD exacerbation and pneumonia CXR shows worsening bilateral opacities that has been progressing since 06/30 completed 3 weeks IV meropenam for ESBL bacteremia secondary to pulmonary source. Last dose July 19 Continue IV methylprednisolone 40 mg b.i.d. Continue DuoNebs q.4h while awake, albuterol p.r.n. IV vancomycin and Cefepime (initiated ), Add flagyl for anareobic coverage (08/10) Give IV lasix Pulmonology consult maintenance inhalers guaifenesin p.r.n. follow cultures Follow Vanco trough # Bacteruria w increase frequency negative cultures. increase Tamsolusin to 0.8 mg daily # heart failure reduced ejection fraction/ICM no exacerbation Continue lasix, carvedilol # paroxysmal atrial fibrillation-rate controlled continue Eliquis for anticoagulation and Coreg for rate control # [id number] type 2 diabetes POC glucose, diabetic diet Humalog on sliding scale # BPH continue finasteride and Flomax DVT prophylaxis-Eliquis DNR/DNI, discussed at bedside with patient using follow up clerk. Will need updated MOLST, requested from administrator social welfare Patient requires inpatient stay overnight for management of acute COPD exacerbation, [place] with worsening acute hypoxemic respiratory failure pending pneumonia Quality Stroke Does the patient have a stroke diagnosis?: No VTE Prior VTE?: No VTE Risk Level:: Medical - moderate - high VTE Device Contraindication: Treatment Not Indicated VTE Drug Contraindication: N/A - Med Ordered
[2023-08-11] MEDS: metroNIDAZOLE/NS 500 MG/100 ML PIGGYBACK 100 MG IV ×2 (14:07→22:06)
[2023-08-11 16:21] LABS: Glucose, Whole Blood 128 mg/dL (60-115)
[2023-08-11 20:05] LABS: Glucose, Whole Blood 225 mg/dL (60-115)
[2023-08-11] MEDS: Morphine Sulfate 2 MG/ML CARTRIDGE IVPUSH (22:00)
[2023-08-11] MEDS: Pravastatin Sodium 10 MG TABLET PO (22:10)
--- NOTE | 2023-08-11 23:13 | MHC.PIE ---
p; pt c/o anxiety and sob. note; on earlier shift, pt noted with anxiety, sob and tachypnea requiring o2 mask 15L. i; dr lakhani notified; new order morphine now e; pt in recliner no sob or anxiety noted. will cont to [facility]
[2023-08-12] MEDS: Omeprazole 20 MG CAPSULE.DR PO (04:47)
[2023-08-12] MEDS: metroNIDAZOLE/NS 500 MG/100 ML PIGGYBACK 100 MG IV (04:50)
[2023-08-12 07:19] LABS: Glucose, Whole Blood 150 mg/dL (60-115)
[2023-08-12 07:29] VITALS: BP 148/68; PULSE 65; RESP 14; TEMP 36; O2SAT 94
[2023-08-12 07:30] LABS: Hematocrit 31.2 % (42.0-52.0); Mean Corpuscular HGB Conc 32.1 g/dl (31.0-36.0); Mean Corpuscular Hemoglobin 26.8 pg (27.0-33.0); Mean Corpuscular Volume 83.6 fL (80.0-98.0); Mean Platelet Volume 9.5 fL (9.4-12.4); Platelet Count 350 X10*3/uL (160-400); Red Blood Count 3.73 X10*6/uL (4.60-5.80); Red Cell Distribution Width 16.6 % (11.0-16.0); White Blood Count 12.1 X10*3/uL (4.8-10.8)
[2023-08-12 07:33] LABS: Creatinine Clr Calc Pharmacy 76.7; Estimated Glomerular Filt Rate > 60
[2023-08-12 07:34] LABS: Anion Gap 8 (12-20); Blood Urea Nitrogen 13 mg/dL (9-16); Calcium 8.7 mg/dL (8.4-10.2); Carbon Dioxide 34 mmol/L (22-29); Chloride 101 mmol/L (96-108); Creatinine Clr Calc Pharmacy 77.9; Estimated Glomerular Filt Rate > 60; Glucose Random 158 mg/dL (60-115); Potassium 3.6 mmol/L (3.3-5.1); Sodium 139 mmol/L (135-145)
[2023-08-12 07:41] LABS: B Type Natriuretic Peptide 208 pg/mL (<100)
[2023-08-12] MEDS: Albuterol/Iprat 2.5/0.5MG 3 ML AMPUL.NEB INHALE ×2 (07:55→11:35)
[2023-08-12 07:56] VITALS: PULSE 92; RESP 16; O2SAT 89
[2023-08-12] MEDS: Apixaban 5 MG TABLET PO (09:23)
[2023-08-12] MEDS: Tamsulosin HCL 0.4 MG CAPSULE 0.8 MG PO (09:23)
[2023-08-12] MEDS: carvediloL 6.25 MG TABLET PO (09:23)
[2023-08-12] MEDS: Finasteride 5 MG TABLET PO (09:23)
[2023-08-12] MEDS: Furosemide 20 MG TABLET PO (09:24)
--- NOTE | 2023-08-12 10:52 | P.CONPL_ITS ---
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 Hospital course complicated by transient hypoxia, likely 2nd to recurrent aspiration event, now essentially at baseline. Review of Systems 2 Constitutional: Constitutional: Denies daytime sleepiness, Denies excessive sweating, Denies fatigue, Denies fever(s), Denies lethargy, Denies malaise, Denies night sweats, Denies snoring and Denies weight loss Eyes: Eyes: Denies blurry vision and Denies itchy eyes ENT: Denies nasal congestion, Denies post nasal drip, Denies sinus pain, Denies sinus pressure and Denies other ( Thrush) Cardiovascular: Cardiovascular: Denies chest pain, Denies pedal edema, Denies dyspnea, Reports dyspnea on exertion (Chronic), Denies orthopnea and Denies paroxysmal nocturnal dyspnea Respiratory: Respiratory: Denies cough, Denies hemoptysis, Denies excessive phlegm production, Denies dyspnea, Reports dyspnea on exertion (Chronic), Denies snoring and Denies wheezing Gastrointestinal: Gastrointestinal: Denies abdominal pain and Denies heartburn Musculoskeletal: Musculoskeletal: Denies myalgias, Denies arthralgias and Denies joint swelling Integumentary/Breasts: Skin/Breast: Denies rash Neurologic: Denies memory loss and Denies seizure-like activity Psychiatric: Psychiatric: Denies abnormal sleep pattern, Denies anxiety and Denies memory loss Endocrine: Endocrine: Denies excessive sweating, Denies fatigue and Denies heat intolerance Hematologic/Lymphatic: Hematologic/Lymphatic: Denies easy bruising Allergic/Immunologic: Allergic/Immunologic: Denies itchy eyes, Denies seasonal rhinorrhea and Denies wheezing PMFSH Past Medical History Medical History (Updated 08/12/23 @ 11:26 by Brent Duenas MD) COPD (chronic obstructive pulmonary disease) Bronchiectasis NICM (nonischemic cardiomyopathy) Swallowing problem 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 Kidney stone on left side Paroxysmal atrial fibrillation Congestive heart failure Acute and chronic respiratory failure BPH loc w urin obs/LUTS Urinary retention History of COVID-19 Chronic anticoagulation History of pneumothorax Diabetes Supplemental oxygen dependent Kidney stone on left side Hearing loss JESSA (mycobacterium avium-intracellulare) Bronchiectasis Glaucoma Pure hypercholesterolemia GERD (gastroesophageal reflux disease) History of MAC infection Essential hypertension Family History Family History Father No problems noted. Mother Medical history unknown Sister Diabetes Daughter In good health Son In good health Brother No problems noted. Surgical History Surgical History History of transurethral resection of bladder tumor (TURBT) History of cataract surgery History of left inguinal hernia repair History of bronchoscopy History of colonoscopy History of lumbar surgery History of cystoscopy Social History Social History Household Members: None Housing: Apartment Housing Other:: Gianluca Mack Are you a primary neonatal intensive care nurse to a significant other at home: No Do you presently have visiting nurse or other home services: Yes (PHARMACIST INTERN) Alcohol intake: never Comment: 1:1 sitter in room Patient Tobacco Use Status: Former Tobacco user Tobacco use type: Cigarette Smoked in Last 30 Days: No e-Cigarette/Vaping Use: Former Use Second Hand Smoke Exposure: No Use of substances other than those prescribed or required for medical reasons: No Currently Displaying Signs/Symptoms of Drug Intoxication Withdrawal: No Have you been hit, kicked, punched, or otherwise hurt by someone within the past year? If so, by whom?: No Do you feel safe in your current relationship?: No Current Relationship Is there a partner from a previous relationship who is making you feel unsafe now?: No Are you made to feel afraid or neglected: No Advance Directives: Yes Advance Directives on File: Yes Advance Directives Date on File: 02/03/22 Do you have a plan to hurt others: No Plan Recently lost weight without trying: No Eating poorly because of decreased appetite: No Nutrition Risks: No Nutritional Risk service: No Current occupational status: retired Cognitive needs: No Hearing needs: Yes Vision needs: Yes Meds Allergies Allergy/AdvReac Type Severity Reaction Status Date / Time Penicillins [PENICILLINS] Allergy Intermediate PASSED Verified 08/09/23 13:00 OUT trazodone Allergy Intermediate tremors Verified 08/09/23 13:00 brimonidine [From Alphagan P] Allergy Unknown Verified 08/09/23 13:00 diphenhydramine Allergy Unknown Verified 08/09/23 13:00 [From Benadryl] Active Medications: Current Medications Acetaminophen (Acetaminophen 325 Mg Tablet) 650 mg PO Q6H PRN PRN Reason: Pain, Mild (Pain Scale 1-3) Albuterol Sulfate (Albuterol Sulfate (0.083%) 2.5 Mg/3 Ml Vial.Neb) 2.5 mg INHALE Q2H PRN PRN Reason: Shortness of Breath/Wheezing Albuterol Sulfate (Albuterol Sulfate 90 Mcg 8 Gm Inhaler) 2 puff INHALE Q4H PRN PRN Reason: wheezing Albuterol/Ipratropium (Albuterol/Iprat 2.5/0.5mg 3 Ml Ampul.Neb) 3 ml INHALE RQ4H WHILE AWAKE [facility] Last Admin: 08/12/23 07:55 Dose: 3 ml Albuterol/Ipratropium (Albuterol/Iprat 2.5/0.5mg 3 Ml Ampul.Neb) 3 ml INHALE QID PRN PRN Reason: for dyspnea Apixaban (Apixaban 5 Mg Tablet) 5 mg PO BID [facility] Last Admin: 08/12/23 09:23 Dose: 5 mg Brimonidine Tartrate (Brimonidine Tartrate 0.2% Oph 5 Ml Bottle) 1 drop EYE- BOTH BID [facility] Carvedilol (Carvedilol 6.25 Mg Tablet) 6.25 mg PO BID [facility]; Protocol Last Admin: 08/12/23 09:23 Dose: 6.25 mg Finasteride (Finasteride 5 Mg Tablet) 5 mg PO DAILY [facility] Last Admin: 08/12/23 09:23 Dose: 5 mg Furosemide (Furosemide 20 Mg Tablet) 20 mg PO DAILY [facility]; Protocol Last Admin: 08/12/23 09:24 Dose: 20 mg Glucose (Glucose Gel 15 Gm Gel..Gram.) 15 gm PO Q15M PRN; Protocol PRN Reason: per Hypoglycemia Standing Ord. Guaifenesin (Guaifenesin 200 Mg/10 Ml 10 Ml Liquid) 10 ml PO Q4H PRN PRN Reason: Cough Last Admin: 08/11/23 10:45 Dose: 10 ml Dextrose (D10) 250 mls @ 750 mls/hr IV Q15M PRN; Protocol PRN Reason: per Hypoglycemia Standing Ord. Metronidazole (Flagyl) 500 mg in 100 mls @ 100 mls/hr IV Q8H [facility] Last Infusion: 08/12/23 06:04 Dose: Infused Insulin Human Lispro (Insulin Lispro 100 Unit/Ml 3 Ml Vial) 0 unit SUBCUT QIDACHS [facility]; Protocol Last Admin: 08/12/23 09:18 Dose: Not Given Magnesium Hydroxide (Milk Of Magnesia 30 Ml Oral.Susp) 30 ml PO DAILY PRN PRN Reason: Constipation Melatonin (Melatonin 3 Mg Tablet) 6 mg PO BEDTIME PRN PRN Reason: Insomnia Last Admin: 08/11/23 01:46 Dose: 6 mg Non-Formulary Medication (Umeclidinium-Vilanterol [Anoro Ellipta]) 1 inhalation INHALE DAILY [facility] Omeprazole (Omeprazole 20 Mg Capsule.Dr) 20 mg PO DAILY@0630 [facility] Last Admin: 08/12/23 04:47 Dose: 20 mg Ondansetron HCl (Ondansetron Hcl 4 Mg/2 Ml Vial) 4 mg IVPUSH Q8H PRN PRN Reason: Nausea and Vomiting Pharmacy Consult (Consult Rx Vancomycin Dosing) 1 each MISCELLANE DAILY PRN PRN Reason: Consult order Pravastatin Sodium (Pravastatin Sodium 10 Mg Tablet) 10 mg PO BEDTIME [facility] Last Admin: 08/11/23 22:10 Dose: 10 mg Prednisone (Prednisone 20 Mg Tablet) 40 mg PO DAILY [facility] Sodium Chloride (0.9 % Sodium Chloride Flush 3 Ml Syringe) 3 ml IVFLUSH QSHIFT [facility] Last Admin: 08/12/23 09:24 Dose: Not Given Tamsulosin HCl (Tamsulosin Hcl 0.4 Mg Capsule) 0.8 mg PO DAILY [facility] Last Admin: 08/12/23 09:23 Dose: 0.8 mg Timolol Maleate (Timolol Maleate 0.5 % Oph Thalia 5 Ml Drbtl) 1 drop EYE-BOTH BID [facility] Home Medications ?Medication ?Instructions ?Recorded ?Confirmed ?Last Taken ?Type albuterol sulfate 90 mcg/actuation 2 puff inhalation Q4H PRN wheezing 03/09/23 08/09/23 Unknown History aerosol inhaler (Ventolin HFA) finasteride 5 mg tablet 5 mg PO DAILY 03/09/23 08/09/23 03/08/23 History lovastatin 10 mg tablet 10 mg PO DAILY 03/09/23 08/09/23 03/08/23 History acetaminophen 500 mg tablet 1,000 mg PO DAILY PRN Pain 08/09/23 08/09/23 Unknown History (Acetaminophen Extra Strength) brimonidine 0.2 %-timolol 0.5 % 1 drp ophthalmic (eye) BID 08/09/23 08/09/23 Unknown History eye drops (Combigan) carvedilol 6.25 mg tablet 6.25 mg PO BID 08/09/23 08/09/23 Unknown History furosemide 20 mg tablet 20 mg PO DAILY 08/09/23 08/09/23 Unknown History prednisone 5 mg tablet 5 mg PO DAILY 08/09/23 08/09/23 Unknown History umeclidinium 62.5 mcg-vilanterol 1 inh inhalation DAILY 08/09/23 08/09/23 Unknown History 25 mcg/actuation powdr for inhalation (Anoro Ellipta) Physical Exam 2 Vital Signs: Vital Signs: Last Vital Signs Temp 96.8 F 08/12/23 07:29 Pulse 92 08/12/23 07:56 Resp 16 08/12/23 07:56 BP 148/68 H 08/12/23 07:29 Pulse Ox 94 08/12/23 07:29 O2 Del Method Nasal Cannula 08/12/23 07:29 O2 Flow Rate 3 08/12/23 07:29 Oxygen Flow Rate 4 08/09/23 12:55 BMI result Body Mass Index 21.0 Const: General: no acute distress and alert Nutritional Appearance: not obese Orientation/consciousness: Other orientation findings ( oriented) HEENT: Head: Yes atraumatic Eyes: General: appearance normal, both eyes and all related structures S clerae: sclerae normal EOM: EOMs intact bilaterally Neck: Neck: Yes supple Lymphatic: no lymphadenopathy noted Resp: Effort & Inspection: normal respiratory effort and no use of accessory muscles Auscultation: clear to auscultation bilaterally Cardio: Rate: regular rate Rhythm: regular rhythm Heart sounds: no gallops, no murmurs and no rubs Skin: General skin exam: other ( warm) Extrem: General: No clubbing, No cyanosis and No edema Results Laboratory Findings 08/12/23 07:00 08/12/23 07:00 Abnormal lab findings: Abnormal Labs 08/09/23 08/09/23 08/09/23 13:05 13:07 22:12 WBC 18.5 H RBC 3.90 L Hgb 10.3 L Hct 32.5 L MCH 26.4 L MCHC RDW 17.2 H Immature Gran % (Auto) Neut % (Auto) Lymph % (Auto) 4.1 L [place] % (Auto) Eos % (Auto) 23.7 H Lymph # (Auto) 0.8 L Eos # (Auto) 4.4 H Abs Immat Gran (auto) 0.08 H Absolute Neuts (auto) 12.1 H Carbon Dioxide Anion Gap POC Glucose 189 H Random Glucose C-Reactive Protein B-Natriuretic Peptide Urine Protein 30 (1+) H Urine Blood Large (3+) H Ur Leukocyte Esterase Small (1+) H Urine RBC >20 H Urine WBC 6-10 H 08/10/23 08/10/23 08/10/23 05:23 07:20 08:05 WBC 11.8 H RBC 3.45 L Hgb 9.3 L Hct 29.6 L MCH MCHC RDW 17.6 H Immature Gran % (Auto) 0.8 H Neut % (Auto) 93.9 H Lymph % (Auto) 3.4 L [place] % (Auto) 1.4 L Eos % (Auto) Lymph # (Auto) 0.4 L Eos # (Auto) Abs Immat Gran (auto) 0.09 H Absolute Neuts (auto) 11.1 H Carbon Dioxide Anion Gap 11 L POC Glucose 134 H 152 H Random Glucose 130 H C-Reactive Protein B-Natriuretic Peptide Urine Protein Urine Blood Ur Leukocyte Esterase Urine RBC Urine WBC 08/10/23 08/10/23 08/10/23 11:07 15:26 19:46 WBC RBC Hgb Hct MCH MCHC RDW Immature Gran % (Auto) Neut % (Auto) Lymph % (Auto) [place] % (Auto) Eos % (Auto) Lymph # (Auto) Eos # (Auto) Abs Immat Gran (auto) Absolute Neuts (auto) Carbon Dioxide Anion Gap POC Glucose 161 H 137 H 128 H Random Glucose C-Reactive Protein B-Natriuretic Peptide Urine Protein Urine Blood Ur Leukocyte Esterase Urine RBC Urine WBC 08/11/23 08/11/2324 06:15 11:09 16:12 WBC 14.5 H RBC 3.63 L Hgb 9.6 L Hct 31.4 L MCH 26.4 L MCHC 30.6 L RDW 16.9 H Immature Gran % (Auto) Neut % (Auto) Lymph % (Auto) [place] % (Auto) Eos % (Auto) Lymph # (Auto) Eos # (Auto) Abs Immat Gran (auto) Absolute Neuts (auto) Carbon Dioxide 30 H Anion Gap 9 L POC Glucose 159 H 128 H Random Glucose C-Reactive Protein B-Natriuretic Peptide Urine Protein Urine Blood Ur Leukocyte Esterase Urine RBC Urine WBC 08/11/23 08/12/23 08/12/23 20:00 07:00 07:15 WBC 12.1 H RBC 3.73 L Hgb 10.0 L Hct 31.2 L MCH 26.8 L MCHC RDW 16.6 H Immature Gran % (Auto) Neut % (Auto) Lymph % (Auto) [place] % (Auto) Eos % (Auto) Lymph # (Auto) Eos # (Auto) Abs Immat Gran (auto) Absolute Neuts (auto) Carbon Dioxide 34 H Anion Gap 8 L POC Glucose 225 H 150 H Random Glucose 158 H C-Reactive Protein 7.40 H B-Natriuretic Peptide 208 H Urine Protein Urine Blood Ur Leukocyte Esterase Urine RBC Urine WBC Microbiology: Microbiology 08/09/23 14:37 Blood - Venous Blood Culture - Preliminary No growth after 48 hours. 08/09/23 14:37 Blood - Venous Blood Culture - Preliminary No growth after 48 hours. 08/09/23 Unknown Urine clean catch - Urine swanson top Urine Culture - Final No growth. Assessment and Plan (1) Bronchiectasis: Qualifiers: Bronchiectasis type: with acute exacerbation Qualified Code(s): J47.1 - Bronchiectasis with (acute) exacerbation Status: Acute (2) Chronic hypoxic respiratory failure: Status: Acute (3) COPD (chronic obstructive pulmonary disease): Qualifiers: COPD type: COPD with acute exacerbation Qualified Code(s): J44.1 - Chronic obstructive pulmonary disease with (acute) exacerbation Status: Acute Plan Impression: 83-year-old gentleman with underlying advanced COPD, bronchiectasis with recurrent ESBL Gram-negative infection, prior history of JESSA admitted with urinary symptoms and hospital course complicated by transient hypoxia likely secondary to recurrent aspiration episode, with respiratory status now at baseline. Results of CT chest reviewed and asthma demonstrate pneumonia, but slowly worsening emphysema bronchiectasis. Recommendations: Continue with outpatient regimen of bronchodilators. Taper off systemic glucocorticoids. Procedures Date of Service Date of Service: 08/12/23
[2023-08-12 11:17] LABS: Glucose, Whole Blood 123 mg/dL (60-115)
[2023-08-12 11:35] VITALS: PULSE 87; RESP 16; O2SAT 90
--- NOTE | 2023-08-12 11:52 | PM.DS ---
DS: Providers Provider Date of Service: 08/12/23 Date of admission: 08/09/23 18:42 Primary care physician: Olga Calzada MD Consults: 08/11/23 12:35 Consult to Pulmonology Routine Consulting Provider: [facility] Pulmonology Services Reason for consultation: Worsening hypoxemia , hx Broncheactasis , COPD DS: Diagnosis Discharge Diagnosis (1) Bronchiectasis: Status: Acute (2) Chronic hypoxic respiratory failure: Status: Acute (3) Acute hypoxemic respiratory failure: Status: Acute (4) Acute exacerbation of chronic obstructive pulmonary disease (COPD): Status: Acute (5) Frequency of urination: Status: Acute (6) NICM (nonischemic cardiomyopathy): Status: Acute (7) Congestive heart failure: Status: Inactive DS: Summary Hospital Course Hospital Course: Admission note HPI 83-year-old male with history of bronchiectasis, COPD not on home oxygen, HFpEF, hypertension, GERD, glaucoma, history of JESSA, and ICM, paroxysmal atrial fibrillation on eliquis, type 2 diabetes, and hypercholesterolemia presented to the ED for evaluation of increased urinary frequency that has been affecting his sleep over the last 5 days. He denies any dysuria, hematuria, abdominal pain, flank pain, nausea, vomiting. He is also reporting dyspnea both at rest but particularly with exertion, productive cough with yellow sputum ongoing for 1 week. Denies any orthopnea or edema. No fevers, chills, chest pain. No known sick contacts. On arrival, mild tachycardia up to 107 and tachypnea to 26. He was found to be hypoxic to 86% on room air and placed on 2 L supplemental O2 maintaining oximetry 93%. He has a leukocytosis of 18.5. Renal function and electrolyte levels normal. Lactic acid 0.7. Urinalysis significant for 1+ leukocytes, 3+ blood, negative nitrites, positive urinary sediment, negative bacteria. Chest x-ray shows diffuse bilateral pulmonary opacities which unchanged but not improve compared to 06/30 x-ray. In the ED, has received 1 g Rocephin, 125 mg IV methylprednisolone, 1 L IVF, and DuoNeb. Hospital course # acute hypoxemic respiratory failure and sepsis 2/2 acute COPD exacerbation and pneumonia as admission and repeated CXR showed worsening bilateral opacities that has been progressing since 06/30 after he completed 3 weeks IV meropenam for ESBL bacteremia secondary to pulmonary source. Last dose July 19. He was treated with IV methylprednisolone 40 mg b.i.d, DuoNebs q.4h while awake, albuterol p.r.n. along with IV antibiotics coverage with vancomycin and Cefepime (initiated ), Add flagyl for anareobic coverage (08/10) and Pulmonology consult as the patient improved over the course of hospital stay back to his baseline O2 need. He was able to ambulate with PT who recommended STR placement. to continue maintenance inhalers, guaifenesin p.r.n and Levaquin on discharge to finish 7 days of antibiotics along with tapering dose of Prednisone. # Bacteruria w increase frequency negative cultures. increased Tamsolusin to 0.8 mg daily # heart failure reduced ejection fraction/ICM with acute exacerbation as seen on CXR and elevated BNP. improved with usage of IV lasix as we were able to wean him down from 15L NRB to 2L NC at his baseline needs. To continue lasix, carvedilol on discharge. Discharge plan Tapering dose of prednisone Continue Levaquin as prescribed Wean down Oxygen as tolerated Time Attestation Discharge Coordination Time (in mins): 36 Quality: Safe Use of Opioids Does Pt have an Active Cancer Diagnosis on the Problem List?: No Quality: Stroke Does the patient have a stroke diagnosis?: No Physical Exam Vital Signs: Vital Signs: Last Vital Signs Temp 96.8 F 08/12/23 07:29 Pulse 87 08/12/23 11:35 Resp 16 08/12/23 11:35 BP 148/68 H 08/12/23 07:29 Pulse Ox 94 08/12/23 07:29 O2 Del Method Nasal Cannula 08/12/23 07:29 O2 Flow Rate 3 08/12/23 07:29 Oxygen Flow Rate 4 08/09/23 12:55 BMI result Body Mass Index 21.0 Const: Other: Constitutional : Awake, interactive, not in distress Neck : Normal inspection, Supple Cardiovascular : RRR, no JVP, no lower extremity edema Respiratory : improved bilateral air entry, basal fine crackles,scattered expiratory wheezes, on 2L NC Gastrointestinal: soft, lax, Normal bowel sounds, Non tender Skin : Warm, Dry Neurological : Alert & oriented x3, No focal deficit DS: Data Data Completed and Pending Completed studies during hospitalization [Text1]: Procedures Insertion of Infusion Device into Left Brachial Vein, Percutaneous Approach (05/25/22) Insertion of Infusion Device into Right Brachial Vein, Percutaneous Approach (06/29/23) Insertion of Infusion Device into Right Cephalic Vein, Percutaneous Approach (12/07/21) Insertion of Infusion Device into Superior Vena Cava, Percutaneous Approach (12/07/21) Introduction of Remdesivir Anti-infective into Peripheral Vein, Percutaneous Approach, [employer] 5 (03/18/23) Ultrasonography of Superior Vena Cava, Guidance (12/07/21) Labs on day of discharge: Laboratory Results - last 24 hr 08/11/23 08/11/23 08/12/23 16:12 20:00 07:00 WBC 12.1 H RBC 3.73 L Hgb 10.0 L Hct 31.2 L MCV 83.6 MCH 26.8 L MCHC 32.1 RDW 16.6 H Plt Count 350 MPV 9.5 Absolute Nucleated RBC 0.000 Nucleated RBC % (auto) 0.0 Sodium 139 Potassium 3.6 Chloride 101 Carbon Dioxide 34 H Anion Gap 8 L BUN 13 Creatinine 0.63 Estim Creat Clear Calc Estimated GFR POC Glucose 128 H 225 H Random Glucose Calcium C-Reactive Protein B-Natriuretic Peptide Random Vancomycin 08/12/23 08/12/23 08/12/23 07:00 07:00 07:00 WBC RBC Hgb Hct MCV MCH MCHC RDW Plt Count MPV Absolute Nucleated RBC Nucleated RBC % (auto) Sodium Potassium Chloride Carbon Dioxide Anion Gap BUN Creatinine 0.62 Estim Creat Clear Calc 76.7 77.9 Estimated GFR > 60 > 60 POC Glucose Random Glucose 158 H Calcium 8.7 C-Reactive Protein 7.40 H B-Natriuretic Peptide 208 H Random Vancomycin 16.0 08/12/23 08/12/23 07:15 11:13 WBC RBC Hgb Hct MCV MCH MCHC RDW Plt Count MPV Absolute Nucleated RBC Nucleated RBC % (auto) Sodium Potassium Chloride Carbon Dioxide Anion Gap BUN Creatinine Estim Creat Clear Calc Estimated GFR POC Glucose 150 H 123 H Random Glucose Calcium C-Reactive Protein B-Natriuretic Peptide Random Vancomycin Preliminary micro results at discharge 08/09/23 14:37 Blood Culture - Preliminary Blood - Venous No growth after 48 hours. 08/09/23 14:37 Blood Culture - Preliminary Blood - Venous No growth after 48 hours. Imaging Chest x-ray: Radiologist's impression: ITS Impressions Chest X-Ray 08/09/23 17:55 IMPRESSION: Diffuse bilateral pulmonary opacities are redemonstrated. Unchanged prominence of the right hilum. When compared with prior study dated 07/01/20[address] findings are similar. Chest CT 08/09/23 19:21 IMPRESSION: 1. Redemonstration of the severe chronic cylindrical bronchiectasis, bronchial wall thickening and extensive cystic areas throughout the lungs. 2. The patchy airspace opacities at the lung bases seen on prior CAT scan June 24, 2023 have improved. No new regions of consolidation. 3. Cholelithiasis. Fleischner guidelines were followed. Chest X-Ray 08/11/23 11:17 IMPRESSION: Severe cystic changes in the lungs and bronchiectasis. Innumerable areas of bronchial wall thickening and nodular opacities seen throughout the lungs suggestive of bronchopneumonia increased from recent exam. Discharge Plan Discharge Anticipated Discharge Date/Time: 08/12/23 11:44 Patient Disposition: er SNF Discharge Diagnosis: COPD exacerbation Referrals: Olga North MD [Primary Care Provider] - 1 Week Discharge Medications: New guaifenesin 100 mg/5 mL Liquid 200 mg PO Q4H PRN (Reason: Cough) Qty: 473 0RF prednisone 10 mg tablet See Taper PO DIRECTED Qty: 30 0RF Taper: Prednisone 40 mg daily for 3 Days and 0 Hour 30 mg daily for 3 Days and 0 Hour 20 mg daily for 3 Days and 0 Hour 10 mg daily for 3 Days and 0 Hour Rx Instructions: see taper instructions levofloxacin 750 mg tablet 750 mg PO DAILY Qty: 4 0RF tamsulosin 0.4 mg Capsule 0.8 mg PO DAILY Qty: 180 0RF Continued (DME) walker [facility] [place] See Rx Instructions .Route Qty: 1 0RF Patient Comments: Pt states doesnot use Rx Instructions: with seat and wheels Eliquis 5 mg tablet 5 mg PO BID 90 Days Qty: 180 0RF metformin 500 mg tablet extended release 24 hr 500 mg PO DAILY 30 Days Qty: 30 5RF omeprazole 20 mg capsule,delayed release(DR/EC) 20 mg PO DAILY 90 Days Qty: 90 0RF (DME) FreeStyle Lite Strips Strip See Rx Instructions .Route Qty: 100 5RF Rx Instructions: test once daily (DME) blood-glucose meter [FreeStyle Lite Meter] Kit See Rx Instructions .Route Qty: 1 0RF Rx Instructions: test once daily (DME) straight cane See Rx Instructions .Route .MEDSUPPLY Qty: 1 0RF Rx Instructions: As directed brimonidine-timolol [Combigan] 0.2-0.5 % Drops 1 drp OPHTHALMIC (EYE) BID carvedilol 6.25 mg tablet 6.25 mg PO BID acetaminophen [Acetaminophen Extra Strength] 500 mg Tablet 1,000 mg PO DAILY PRN (Reason: Pain) furosemide 20 mg Tablet 20 mg PO DAILY Anoro Ellipta 62.5-25 mcg/actuation Blister With Device 1 inh INHALATION DAILY finasteride 5 mg tablet 5 mg PO DAILY lovastatin 10 mg tablet 10 mg PO DAILY albuterol sulfate [Ventolin HFA] 90 mcg/actuation HFA aerosol inhaler 2 puff INHALATION Q4H PRN (Reason: wheezing) (DME) lancets [FreeStyle Lancets] 28 gauge misc See Rx Instructions .Route Qty: 100 6RF Rx Instructions: Use 1 lancet once a day (DME) wheelchair See Rx Instructions .Route .MEDSUPPLY Qty: 1 0RF Rx Instructions: As directed Changed ipratropium-albuterol 0.5 mg-3 mg(2.5 mg base)/3 mL solution for nebulization 3 ml inhalation QID Qty: 180 0RF Discontinued tamsulosin 0.4 mg capsule 0.4 mg PO DAILY 30 Days Qty: 30 2RF prednisone 5 mg tablet 5 mg PO DAILY Discharge Orders: Discharge Order (Routine); Ordered 08/12/23 Ordered By: Nichelle Hull Diet: Low salt diet Activity on Discharge: As tolerated Stand Alone Forms: Patient Portal Discharge page Print Language: Argentine Care Plan Goals: Tapering dose of prednisone Continue Levaquin as prescribed Wean down Oxygen as tolerated Health Concerns: Read below Plan of Treatment: Read below Assessment: Read below
--- NOTE | 2023-08-12 13:53 | MHC.CM.PN ---
CM MET WITH PT WITH WEIGHT CONTROL ENGINEER TO DISCUSS DC PLANNING PT IS AWARE STR HAS BEEN RECOMMENDED AND [facility] IS OFFERING A BED PT ACCEPTED BED OFFER AND WAS MADE AWARE TRANSPORT WOULD BE ARRANGED FOR 1400 HOURS PER MD REQUEST, CM LEFT A VM FOR PTS SENIOR COUNSEL COMMERCIAL MILLER [phone] INFOMRING HER OF DC PLAN/TIME
== END 2023-08-12 15:07 | disposition home or self-care (01) | DRG 871 ==
LOC: HO.ED 18:40 → HO.EDOVER 18:54 → HO.S3 08-10 07:22
PROVIDERS: Admitting Provider Physician Assistant; Emergency Provider Emergency Medicine; PCP Internal Medicine; Visit Provider Student in an Organized Health Care Education/Training Program
DX: A41.9 Sepsis, unspecified organism (principal); J96.21 Acute and chronic respiratory failure with hypoxia; N39.0 Urinary tract infection, site not specified; I50.22 Chronic systolic (congestive) heart failure; J47.1 Bronchiectasis with (acute) exacerbation; I42.8 Other cardiomyopathies; I25.10 Atherosclerotic heart disease of native coronary artery without angina pectoris; N40.0 Benign prostatic hyperplasia without lower urinary tract symptoms; Z66 Do not resuscitate; I48.0 Paroxysmal atrial fibrillation; E11.9 Type 2 diabetes mellitus without complications; Z99.81 Dependence on supplemental oxygen; Z79.01 Long term (current) use of anticoagulants; Z79.84 Long term (current) use of oral hypoglycemic drugs; Z79.899 Other long term (current) drug therapy
CPT/HCPCS: 36415; 71045; 71250; 80048; 80202; 81001; 82565; 82947; 83605; 83880; 85025; 85027; 86140; 87040; 87086; 94640; 97162; 99285; J0692; J0696; J1836; J1940; J2270; J2919; J3370; J3371

== ENCOUNTER → 2023-08-09 18:42 | Outpatient (BNV) | payer OTHER, SELFPAY | PROVIDERS: Admitting Provider Physician Assistant; Emergency Provider Emergency Medicine; PCP Internal Medicine; Visit Provider Internal Medicine Pulmonary Disease | DX: J47.1 Bronchiectasis with (acute) exacerbation (principal); J96.11 Chronic respiratory failure with hypoxia; J44.1 Chronic obstructive pulmonary disease with (acute) exacerbation | CPT/HCPCS: 99222 ==

== ENCOUNTER → 2023-08-09 18:42 | Outpatient (BNV) | payer MEDICARE, OTHER, MEDICAID, SELFPAY | PROVIDERS: Admitting Provider Physician Assistant; Emergency Provider Emergency Medicine; PCP Internal Medicine; Visit Provider Student in an Organized Health Care Education/Training Program | DX: J44.1 Chronic obstructive pulmonary disease with (acute) exacerbation (principal); N39.0 Urinary tract infection, site not specified; J96.01 Acute respiratory failure with hypoxia | CPT/HCPCS: 99223; 99232; 99233; 99239 ==

== ENCOUNTER 2023-08-13 05:58 | Outpatient (REF) | payer OTHER, SELFPAY ==
[2023-08-13 06:03] LABS: MANUAL DIFF FLAG NO
[2023-08-13 06:39] LABS: Estimated Average Glucose 126 mg/dL
[2023-08-13 06:59] LABS: Alanine Aminotransferase 12 U/L (0-40); Alkaline Phosphatase 50 U/L (39-117); Anion Gap 13 (12-20); Aspartate Amino Transferase 11 U/L (5-37); Bilirubin Total 0.2 mg/dL (0.0-1.0); Blood Urea Nitrogen 13 mg/dL (9-16); Calcium 8.5 mg/dL (8.4-10.2); Carbon Dioxide 30 mmol/L (22-29); Chloride 101 mmol/L (96-108); Estimated Glomerular Filt Rate > 60; Glucose Random 84 mg/dL (60-115); Sodium 141 mmol/L (135-145); Total Protein 6.4 g/dL (6.5-8.0)
[2023-08-13 07:00] LABS: Basophils Absolute Auto 0.1 X10*3/uL (0.0-0.2); Basophils Percent Auto 0.4 % (0-2); Eosinophils Absolute Auto 0.8 X10*3/uL (0.0-0.4); Hematocrit 30.7 % (42.0-52.0); Hemoglobin 9.7 g/dl (14.0-18.0); Imm Gran Abs Auto 0.09 X10*3/uL (0.00-0.03); Imm Gran Pct Auto 0.8 % (0.0-0.4); Lymphocytes Absolute Auto 0.9 X10*3/uL (1.2-4.9); Lymphocytes Percent Auto 7.5 % (20-40); Mean Corpuscular HGB Conc 31.6 g/dl (31.0-36.0); Mean Corpuscular Hemoglobin 27.1 pg (27.0-33.0); Mean Corpuscular Volume 85.8 fL (80.0-98.0); Mean Platelet Volume 9.8 fL (9.4-12.4); Monocytes Absolute Auto 0.9 X10*3/uL (0.1-1.2); Monocytes Percent Auto 7.7 % (2-11); Neutrophils Absolute Auto 9.2 x10*3/uL (2.0-8.3); Neutrophils Percent Auto 76.6 % (45-73); Platelet Count 338 X10*3/uL (160-400); Red Blood Count 3.58 X10*6/uL (4.60-5.80); Red Cell Distribution Width 16.8 % (11.0-16.0); White Blood Count 11.9 X10*3/uL (4.8-10.8)
[2023-08-13 07:57] LABS: Potassium 2.9 mmol/L (3.3-5.1)
== END 2023-08-13 05:59 | disposition home or self-care (01) ==
LOC: HO.MMNH2L 05:58
PROVIDERS: Visit Provider Hospitalist
DX: J18.9 Pneumonia, unspecified organism (principal)
CPT/HCPCS: 36415; 80053; 83036; 85025

== ENCOUNTER 2023-08-14 12:30 | Outpatient (REF) | payer OTHER, SELFPAY ==
[2023-08-14 12:42] LABS: Basophils Percent Auto 0.1 % (0-2); Eosinophils Absolute Auto 0.1 X10*3/uL (0.0-0.4); Eosinophils Percent Auto 0.7 % (0-4); Hematocrit 30.5 % (42.0-52.0); Hemoglobin 9.7 g/dl (14.0-18.0); Imm Gran Abs Auto 0.12 X10*3/uL (0.00-0.03); Imm Gran Pct Auto 0.6 % (0.0-0.4); Lymphocytes Absolute Auto 0.3 X10*3/uL (1.2-4.9); Lymphocytes Percent Auto 1.6 % (20-40); MANUAL DIFF FLAG SCAN; Mean Corpuscular HGB Conc 31.8 g/dl (31.0-36.0); Mean Corpuscular Hemoglobin 26.9 pg (27.0-33.0); Mean Corpuscular Volume 84.7 fL (80.0-98.0); Mean Platelet Volume 9.8 fL (9.4-12.4); Monocytes Percent Auto 4.7 % (2-11); Neutrophils Absolute Auto 19.8 x10*3/uL (2.0-8.3); Neutrophils Percent Auto 92.3 % (45-73); Platelet Count 328 X10*3/uL (160-400); Red Cell Distribution Width 17.2 % (11.0-16.0); SCAN SMEAR FLAG 1; White Blood Count 21.4 X10*3/uL (4.8-10.8)
[2023-08-14 12:58] LABS: Anion Gap 14 (12-20); Blood Urea Nitrogen 14 mg/dL (9-16); Calcium 8.9 mg/dL (8.4-10.2); Carbon Dioxide 25 mmol/L (22-29); Chloride 102 mmol/L (96-108); Estimated Glomerular Filt Rate > 60; Glucose Random 163 mg/dL (60-115); Potassium 4.6 mmol/L (3.3-5.1); Sodium 136 mmol/L (135-145)
[2023-08-14 13:22] LABS: SLIDE REVIEW VERIFIED
== END 2023-08-14 12:31 | disposition home or self-care (01) ==
LOC: HO.MMNH2L 12:30
PROVIDERS: Visit Provider Hospitalist
DX: E87.5 Hyperkalemia (principal)
CPT/HCPCS: 36415; 80048; 85025

== ENCOUNTER 2023-08-15 | Outpatient (REF) | payer OTHER, SELFPAY ==
[2023-08-15 12:42] LABS: MANUAL DIFF FLAG NO
[2023-08-15 12:47] LABS: Basophils Percent Auto 0.1 % (0-2); Eosinophils Absolute Auto 0.4 X10*3/uL (0.0-0.4); Eosinophils Percent Auto 2.3 % (0-4); Hematocrit 30.8 % (42.0-52.0); Hemoglobin 9.6 g/dl (14.0-18.0); Imm Gran Pct Auto 0.6 % (0.0-0.4); Lymphocytes Absolute Auto 0.7 X10*3/uL (1.2-4.9); Mean Corpuscular HGB Conc 31.2 g/dl (31.0-36.0); Mean Corpuscular Hemoglobin 26.2 pg (27.0-33.0); Mean Corpuscular Volume 84.2 fL (80.0-98.0); Mean Platelet Volume 9.4 fL (9.4-12.4); Monocytes Absolute Auto 1.2 X10*3/uL (0.1-1.2); Monocytes Percent Auto 7.4 % (2-11); Neutrophils Absolute Auto 14.1 x10*3/uL (2.0-8.3); Neutrophils Percent Auto 85.6 % (45-73); Platelet Count 326 X10*3/uL (160-400); Red Blood Count 3.66 X10*6/uL (4.60-5.80); Red Cell Distribution Width 17.1 % (11.0-16.0); White Blood Count 16.4 X10*3/uL (4.8-10.8)
[2023-08-15 13:03] LABS: Anion Gap 11 (12-20); Blood Urea Nitrogen 16 mg/dL (9-16); Calcium 9.1 mg/dL (8.4-10.2); Carbon Dioxide 27 mmol/L (22-29); Chloride 104 mmol/L (96-108); Estimated Glomerular Filt Rate > 60; Glucose Random 111 mg/dL (60-115); Potassium 3.5 mmol/L (3.3-5.1); Sodium 138 mmol/L (135-145)
== END 2023-08-15 00:01 | disposition home or self-care (01) ==
LOC: HO.LAB
PROVIDERS: PCP Internal Medicine; Visit Provider Hospitalist
DX: N20.0 Calculus of kidney (principal)
CPT/HCPCS: 36415; 80048; 85025; 87040

== ENCOUNTER 2023-08-20 05:52 | Outpatient (REF) | payer OTHER, SELFPAY ==
[2023-08-20 05:43] LABS: MANUAL DIFF FLAG NO
[2023-08-20 05:59] LABS: Basophils Percent Auto 0.2 % (0-2); Eosinophils Percent Auto 7.1 % (0-4); Hematocrit 28.9 % (42.0-52.0); Hemoglobin 9.1 g/dl (14.0-18.0); Imm Gran Abs Auto 0.09 X10*3/uL (0.00-0.03); Imm Gran Pct Auto 0.6 % (0.0-0.4); Lymphocytes Absolute Auto 0.8 X10*3/uL (1.2-4.9); Lymphocytes Percent Auto 5.5 % (20-40); Mean Corpuscular HGB Conc 31.5 g/dl (31.0-36.0); Mean Corpuscular Hemoglobin 27.2 pg (27.0-33.0); Mean Corpuscular Volume 86.5 fL (80.0-98.0); Mean Platelet Volume 9.5 fL (9.4-12.4); Monocytes Percent Auto 6.7 % (2-11); Neutrophils Absolute Auto 11.4 x10*3/uL (2.0-8.3); Neutrophils Percent Auto 79.9 % (45-73); Platelet Count 274 X10*3/uL (160-400); Red Blood Count 3.34 X10*6/uL (4.60-5.80); Red Cell Distribution Width 16.9 % (11.0-16.0); White Blood Count 14.3 X10*3/uL (4.8-10.8)
[2023-08-20 06:24] LABS: Anion Gap 11 (12-20); Blood Urea Nitrogen 15 mg/dL (9-16); Calcium 8.8 mg/dL (8.4-10.2); Carbon Dioxide 28 mmol/L (22-29); Chloride 101 mmol/L (96-108); Estimated Glomerular Filt Rate > 60; Glucose Random 124 mg/dL (60-115); Potassium 3.8 mmol/L (3.3-5.1); Sodium 136 mmol/L (135-145)
== END 2023-08-20 05:53 | disposition home or self-care (01) ==
LOC: HO.MMNH2L 05:52
PROVIDERS: Visit Provider Hospitalist
DX: J18.9 Pneumonia, unspecified organism (principal)
CPT/HCPCS: 36415; 80048; 85025

== ENCOUNTER 2023-08-27 | Outpatient (REF) | payer OTHER, SELFPAY ==
[2023-08-27 13:43] LABS: Appearance Urine Clear; Color Urine Yellow; Glucose Urine UA Negative (Negative); Leukocyte Esterase Urine Trace (Negative); Nitrite Urine Negative (Negative); PH 7.5 (5.0-9.0); Specific Gravity - Urine 1.015 (1.005-1.025); UMIC TRIGGER UACC YES; Urine Blood Negative (Negative); Urine Ketones Negative (Negative); Urine Protein Negative (Neg-Trace)
[2023-08-27 13:56] LABS: Bacteria Urine None Seen (None Seen); Hyaline Casts Urine 0-2 /LPF (0-2); RBC Urine 0-2 /HPF (0-2); Squamous Epithelial Cell Urine 0-2 /HPF (0-2); WBC Urine 0-5 /HPF (0-5)
== END 2023-08-27 00:01 | disposition home or self-care (01) ==
LOC: HO.MMNH2L
PROVIDERS: Internal Medicine; Visit Provider Hospitalist
DX: N39.0 Urinary tract infection, site not specified (principal)
CPT/HCPCS: 81001

== ENCOUNTER → 2023-08-27 15:12 | Outpatient (AMB) | payer OTHER, SELFPAY ==
--- NOTE | 2023-08-27 14:46 | A.OFFVIS_ITS ---
Intake Visit Reasons: 6M f/u Renal US Intake Note: Patient presents today via telephone for a follow-up: Meds- Finasteride & Tamsulosin Allergies to Antibiotic- Penicillin Blood Thinner- None Hydro Plant Technician Required: Yes Hydro Plant Technician Language: Automatic Machine Attendant Name: DENISE Jefferson/CASSANDRA KRUGER Information Interpreted: non-clinical & clinical Accompanied by: Self / Same As Patient Allergies Penicillins [PENICILLINS] Allergy (Intermediate, Verified 08/27/23 14:48) PASSED OUT trazodone Allergy (Intermediate, Verified 08/27/23 14:48) tremors brimonidine [From Alphagan P] Allergy (Verified 08/27/23 14:48) Unknown diphenhydramine [From Benadryl] Allergy (Verified 08/27/23 14:48) Unknown Medication List - Last Reconciled 08/28/23 by Vinny Zuluaga MD acetaminophen (Acetaminophen Extra Strength) 1,000 mg PO DAILY PRN albuterol sulfate 90 mcg/actuation (Ventolin HFA) 2 puffs inhalation Q4H PRN apixaban (Eliquis) 5 mg PO BID 90 days blood sugar diagnostic (FreeStyle Lite Strips) test once daily blood-glucose meter (FreeStyle Lite Meter kit) test once daily brimonidine-timolol 0.2-0.5 % (Combigan) 1 drp ophthalmic (eye) BID bumetanide 1 mg PO DAILY 90 days carvedilol 6.25 mg PO BID finasteride 5 mg PO DAILY guaifenesin 200 mg (10 mL) PO Q4H PRN ipratropium-albuterol 0.5 mg-3 mg(2.5 mg base)/3 mL 3 mL inhalation QID lancets (FreeStyle Lancets) Use 1 lancet once a day levofloxacin 750 mg PO DAILY lovastatin 10 mg PO DAILY metformin ER 500 mg PO DAILY 30 days omeprazole 20 mg PO DAILY 90 days prednisone See Taper mg PO DIRECTED [straight cane As directed] tamsulosin 0.8 mg (2 x 0.4 mg) PO DAILY umeclidinium-vilanterol 62.5-25 mcg/actuation (Anoro Ellipta) 1 inh inhalation DAILY walker with seat and wheels [wheelchair As directed] HPI Comments Details: 08/27/23--telehealth follow-up--I spoke with the patient's health proxy Leti and patient Yao. Yao is an 82-year-old male who is followed for obstructive voiding symptoms, recurrent UTIs and left nephrolithiasis. CoMorbidity-Diabetes. The patient was [place] [facility] [place]. Reviewed CTAP 06/28/23-- 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, Left renal calculi, no hydronephrosis. Cont tamsulosin, proscar. Review of chart: 02/28/23--seen by nurse practitioner Ashley Tello: Yao is an 82-year-old Monegasque-speaking male patient of Dr. Edu Calzada. He has a past medical history of chronic anticoagulation, diabetes, acute and chronic respiratory failure oxygen dependent, nephrolithiasis, urinary retention, paroxysmal atrial fibrillation, hearing loss, nonischemic cardiomyopathy, glaucoma, hypercholesteremia, GERD, congestive heart failure, and hypertension. He presents to the office today for follow-up of his urinary retention, history of TURBT noting inflammatory changes no atypical cells, horseshoe kidneys, and nephrolithiasis. In discussion with the patient today he reports to be doing and feeling well. Recent renal imaging results reviewed with the patient today. Horseshoe morphology of bilateral kidneys. Right kidney with no lesions and or hydronephrosis. Left kidney with 8 mm nonobstructing lower pole and 2 mm nonobstructing mid pole renal calculus. He otherwise denies any bothersome urinary issues or concerns. He reports to be compliant with 0.4 mg of Flomax. In office urinalysis results reviewed with the patient today. PVR 0 mL. When asked he reports to be drinking water daily. He otherwise offers no other issues or concerns at this time. 07/27/22--Monegasque speaking male. Certified director patient accounting was present during the visit. The patient is here for 3 months follow-up. States he is having intermittent urinary leakage when breathing heavily. (During the visit the patient notes his oxygen was starting to get low, I have discussed will end visit and tele-health follow-up to further discuss his symptoms. Evaluation today: Bladder scan: 128 mL. Will send urine for c/s. 04/28/22--Yao is here for FU due to LUTS of urinary retention and recurrent UTI's and gross hematuria. Co Morbidity - COPD needs 24 hr oxygen support He is currently voiding on his own. ? Yao was admitted to [facility] for lung infection, prior to discharge he was noted to have urinary retention and was discharged with hermosillo on 12/14/21 and was started on flomax.? myrbetriq 25 mg daily,? was stopped.? He was started on? proscar 5 mg daily. OV--03/08/22--He is on Macrobid antibiotic suppressive therapy 100 mg daily started 03/08/22. He is currently asymptomatic. I reviewed with him the KUB results, 7 and 9 mm left kidney stones. Evaluation today: UA- no signs of infection, PVR 15.? Plan-Cont flomax, proscar, macrobid, monitor kidney stones Review of Pertinent findings:CT KUB on 01/13/2022 left kidney stones 5 x 3 mm lower pole and 5 mm in the mid to lower pole cystoscopy and bladder biopsy under anesthesia on 01/17/2022 for gross hematuria pathology noted inflammatory changes no atypical cells. completed Macrobid for E coli UTI collected on 02/21/2022--sensitive to Macrobid Will have him follow- up with KUB? I reviewed urine culture--07/27/2022-- showed no growth. COUNT INCLUDES THE [facility] Medical History Acute hypoxemic respiratory failure Chronic hypoxic respiratory failure COPD (chronic obstructive pulmonary disease) Bronchiectasis NICM (nonischemic cardiomyopathy) Swallowing problem 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 Kidney stone on left side Paroxysmal atrial fibrillation Congestive heart failure Acute and chronic respiratory failure BPH loc w urin obs/LUTS Urinary retention History of COVID-19 Chronic anticoagulation History of pneumothorax Diabetes Supplemental oxygen dependent Kidney stone on left side Hearing loss JESSA (mycobacterium avium-intracellulare) Bronchiectasis Glaucoma Pure hypercholesterolemia GERD (gastroesophageal reflux disease) History of MAC infection Essential hypertension Surgical History History of transurethral resection of bladder tumor (TURBT) History of cataract surgery History of left inguinal hernia repair History of bronchoscopy History of colonoscopy History of lumbar surgery History of cystoscopy Family History Father No problems noted. Mother Medical history unknown Sister Diabetes Daughter In good health Son In good health Brother No problems noted. Social History Household Members: None Housing: Apartment Housing Other:: Gianluca Mack Are you a primary critical care unit manager to a significant other at home: No Do you presently have visiting nurse or other home services: Yes (LOAN COUNSELOR) Alcohol intake: never Comment: 1:1 sitter in room Patient Tobacco Use Status: Former Tobacco user Tobacco use type: Cigarette e-Cigarette/Vaping Use: Former Use Second Hand Smoke Exposure: No Advance Directives Date on File: 02/03/22 service: No Current occupational status: retired Cognitive needs: No Hearing needs: Yes Vision needs: Yes Review of Systems Const All systems reviewed & are unremarkable except as noted in HPI and below Reports no additional complaints Eyes Reports no additional complaints ENT Reports no additional complaints Card Reports no additional complaints Resp Reports no additional complaints GI Reports no additional complaints Reports as per HPI Musc Reports no additional complaints Skin/Breast Reports system reviewed and no additional complaints, except as documented Neuro Reports no additional complaints Psych Reports no additional complaints Endo Reports no additional complaints José/Lymph Reports no additional complaints Aller/Immun Reports no additional complaints Telehealth Telehealth Telehealth Platform: [facility] Location of provider rendering services: practice address Location of patient: address on file Patient Identification confirmed using: Name, : Yes Telehealth method: voice only Patient verbally consented to treatment: Yes Patient verbally consented to billing insurance company: Yes Patient informed of any privacy concerns related to visit: Yes Minutes spent on Phone/Video with Pt.: 15 Results Reviewed Results Reviewed: Collected: 06/28/23 Status: COMP Req#: [id number] Received: 06/28/23 Source: Blood Sp Desc: Venous Subm Dr: Ivy Ayers MD Ordered: Blood Cult(2nd) Procedure Result Verified Blood Culture (Second) Final 07/01/23 Gram stain results: Gram-negative rods 1 set positive/2 sets drawn Gram stain results from blood cultures should be interpreted with caution. A number of factors, including the presence of antibiotics in the specimen and the effect of growth in enriched liquid culturing medium, may cause organisms to react differently with the staining reagents. These factors occasionally cause a Gram-negative organism to stain Gram-positive and vice versa. Results of the initial Gram stain from the culture broth must always be correlated with growth on agar. Organism 1 Escherichia coli ESBL Note: NOTE: Extended-Spectrum Beta-Lactamase enzyme present Results of Blood Culture gram stain called to and read back by JACOB at 0800 on 06/29/23 by CONNOR. E coli M.I.C. RX --------- --- Ampicillin >=32 R Cefazolin >=64 R Ceftriaxone >=64 R Ertapenem <=0.12 S Gentamicin <=1 S Levofloxacin >=8 R Trimethoprim/Sulfamethoxazole >=320 R Date of Service: 06/28/23 EXAMINATION: CT ABDOMEN AND PELVIS WITH CONTRAST CLINICAL INFORMATION: Bilateral lower quadrant pain COMPARISON: Previous CT of the abdomen and pelvis May 2023. Previous chest CT 06/24/2023 DLP: 347 mGy-cm FINDINGS: LUNG BASES: Severe bronchiectasis. Scattered areas of bronchial wall thickening and mucous plugging. Coalescent nodular opacities and patchy areas of consolidation at the lung bases probably representing pneumonia. This is increased in the left lower lobe from recent chest CT May 2023. LIVER, GALLBLADDER, AND BILIARY TREE: The liver is normal in size, shape, and attenuation. No focal hepatic lesion or biliary ductal dilatation is present. The gallbladder is unremarkable with no evidence of radiopaque gallstones, gallbladder wall thickening, or obvious pericholecystic inflammatory changes. PANCREAS: Unremarkable. SPLEEN: Unremarkable. ADRENAL GLANDS: Unremarkable. KIDNEYS AND URETERS: 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. Multiple left renal stones, largest measuring 7 mm in the lower pole of the left of the left moiety. Small right renal cyst. No imaging follow-up recommended. BLADDER: Unremarkable. GASTROINTESTINAL TRACT: Diverticulosis and constipation. No evidence of diverticulitis. The small and large bowel are otherwise unremarkable. The appendix is unremarkable. Small esophageal hernia. ABDOMINAL WALL: Small left inguinal hernia containing fluid. LYMPH NODES: Normal. VASCULAR: Unremarkable. PELVIC VISCERA: The prostate gland is slightly enlarged and protrudes into the base of the bladder. The prostate gland measures 4 x 4.5 cm. OSSEOUS STRUCTURES: Degenerative changes of the spine and hips. Stable sclerotic bone lesion measuring 1.3 x 2.3 cm in the right superior pubic ramus. IMPRESSION: 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. Multiple renal stones. No hydronephrosis. Slightly enlarged prostate gland that protrudes into the base of the bladder. Constipation and diverticulosis. Worsening airspace disease disease in the left lower lobe compared to recent chest CT. Fleischner guidelines were followed. Date of Service: 02/21/23 EXAMINATION: US RETROPERITONEAL LIMITED (RENAL ONLY) CLINICAL INFORMATION: Calculus of kidney. COMPARISON: CT abdomen and pelvis 01/13/2022. TECHNIQUE: Real-time imaging of the kidneys. FINDINGS: RIGHT POLE OF THE HORSESHOE KIDNEY: 11.3 x 3.9 x 4.1 cm (SAG x AP x TRV). The kidney is normal in size, contour, and echogenicity. Renal cortical thickness is normal. No calculi or focal parenchymal lesions. No hydronephrosis. Echogenic focus without twinkle artifact or shadowing may reflect a vascular reflector. No definite nephrolithiasis. LEFT POLE OF THE HORSESHOE KIDNEY: 12.5 x 3.9 x 3.4 cm (SAG x AP x TRV). The kidney is normal in size, contour, and echogenicity. Renal cortical thickness is normal. No focal parenchymal lesions or hydronephrosis. Incidentally noted extrarenal pelvis. 8 mm nonobstructing lower pole renal stone previously 7 mm. 2 mm nonobstructing midpole renal stone previously 3 mm. IMPRESSION: Horseshoe morphology of the kidneys with similar nonobstructing left renal stones. Assessment & Plan Assessment & Plan (1) Nephrolithiasis: Code(s): N20.0 - Calculus of kidney Category: Medical Plan FU in 3 months- Medications: New finasteride 5 mg PO DAILY 90 tabs 3RF Patient Instructions: It is a privilege to be allowed the opportunity to participate in the urologic care of your patient. If you have any questions or concerns regarding treatment for the above conditions please do not hesitate to contact me. The office telephone contact is [phone]. This note is constructed in part using voice recognition software. While every effort has been made to ensure accuracy hydraulics teacher errors may have been included. Yours sincerely, Vinny Zuluaga MD Coding Level of Care Code Tele Est Pt Level 3 (52878) Diagnoses Nephrolithiasis N20.0
== END | disposition home or self-care (01) ==
LOC: HO.HUSH 14:46
PROVIDERS: PCP Internal Medicine; Visit Provider Urology
DX: N20.0 Calculus of kidney (principal)
CPT/HCPCS: 99442

== ENCOUNTER 2023-08-29 09:18 | Outpatient (AMB) | payer OTHER, SELFPAY ==
--- NOTE | 2023-08-29 09:20 | A.OFFPC_ITS ---
Vital Signs 08/29/23 09:21 Height 5 ft 6 in Weight 123 lb BMI 19.9 BP 126/66 Blood Pressure Location Lt brachial Position Sitting Pulse 89 Pulse Source Pulse Oximeter Pulse Oximetry (%) 92 Oxygen Delivery Method Nasal Cannula Intake Visit Reasons: Medication follow up Flasher Adjuster Required: No Accompanied by: TRAINING PROJECT MANAGER Allergies Penicillins [PENICILLINS] Allergy (Intermediate, Verified 08/29/23 09:32) PASSED OUT trazodone Allergy (Intermediate, Verified 08/29/23 09:32) tremors brimonidine [From Alphagan P] Allergy (Verified 08/29/23 09:32) Unknown diphenhydramine [From Benadryl] Allergy (Verified 08/29/23 09:32) Unknown Medication List - Last Reconciled 08/29/23 by Olga Calzada MD acetaminophen (Acetaminophen Extra Strength) 1,000 mg PO DAILY PRN albuterol sulfate 90 mcg/actuation (Ventolin HFA) 2 puffs inhalation Q4H PRN apixaban (Eliquis) 5 mg PO BID 90 days blood sugar diagnostic (FreeStyle Lite Strips) test once daily blood-glucose meter (FreeStyle Lite Meter kit) test once daily brimonidine-timolol 0.2-0.5 % (Combigan) 1 drp ophthalmic (eye) BID bumetanide 1 mg PO DAILY 90 days carvedilol 6.25 mg PO BID finasteride 5 mg PO DAILY guaifenesin 200 mg (10 mL) PO Q4H PRN ipratropium-albuterol 0.5 mg-3 mg(2.5 mg base)/3 mL 3 mL inhalation QID lancets (FreeStyle Lancets) Use 1 lancet once a day levofloxacin 750 mg PO DAILY lovastatin 10 mg PO DAILY metformin ER 500 mg PO DAILY 30 days omeprazole 20 mg PO DAILY 90 days prednisone See Taper mg PO DIRECTED [straight cane As directed] tamsulosin 0.8 mg (2 x 0.4 mg) PO DAILY umeclidinium-vilanterol 62.5-25 mcg/actuation (Anoro Ellipta) 1 inh inhalation DAILY walker with seat and wheels [wheelchair As directed] Tobacco use date assessed: 05/09/23 Dental Screening Dental Screen Date: 05/09/23 HPI HPI Comments History of Present Illness Details This is an 83-year-old male with emphysema with chronic bronchitis, paroxysmal atrial fibrillation, diabetes mellitus type 2 without long-term current use of insulin, nonischemic cardiomyopathy and malnutrition that comes today accompanied by 1 of his TRAINING PROJECT MANAGER is for follow-up on his conditions. He has in a wheelchair due to shortness of breath secondary to COPD. On 2 L of oxygen by nasal cannula saturating from 88-92%. Has dyspnea on exertion. He follows with pulmonology. On chronic anticoagulation for atrial fibrillation and this is follow by cardiology as well as nonischemic cardiomyopathy. Has not gain 5 lb in a week. He does have malnutrition and he will benefit from Roosevelt which is a nutritional supplement. No chest pain. He also has bilateral hearing loss and I will order a hearing test. [facility] Medical History (Updated 08/29/23 @ 12:30 by Olga Calzada MD) Hearing loss Acute hypoxemic respiratory failure Chronic hypoxic respiratory failure COPD (chronic obstructive pulmonary disease) Bronchiectasis NICM (nonischemic cardiomyopathy) Swallowing problem 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 Kidney stone on left side Paroxysmal atrial fibrillation Congestive heart failure Acute and chronic respiratory failure BPH loc w urin obs/LUTS Urinary retention History of COVID-19 Chronic anticoagulation History of pneumothorax Diabetes Supplemental oxygen dependent Kidney stone on left side JESSA (mycobacterium avium-intracellulare) Bronchiectasis Glaucoma Pure hypercholesterolemia GERD (gastroesophageal reflux disease) History of MAC infection Essential hypertension Surgical History History of transurethral resection of bladder tumor (TURBT) History of cataract surgery History of left inguinal hernia repair History of bronchoscopy History of colonoscopy History of lumbar surgery History of cystoscopy Family History Father No problems noted. Mother Medical history unknown Sister Diabetes Daughter In good health Son In good health Brother No problems noted. Social History Household Members: None Housing: Apartment Housing Other:: Gianluca Martina Are you a primary patient care director to a significant other at home: No Do you presently have visiting nurse or other home services: Yes (TRAINING PROJECT MANAGER) Alcohol intake: never Comment: 1:1 sitter in room Patient Tobacco Use Status: Former Tobacco user Tobacco use type: Cigarette e-Cigarette/Vaping Use: Former Use Second Hand Smoke Exposure: No Advance Directives Date on File: 02/03/22 service: No Current occupational status: retired Cognitive needs: No Hearing needs: Yes Vision needs: Yes Questionnaire Thrive Questionnaire Date Thrive assessed: 08/10/23 KELLI-7 AMB Questionnaire KELLI-7 Date KELLI - 7 assessed: 04/03/23 Source: Developed by Drs. Sudeep Estes, Ronit Brewer, Harry Carter and colleagues, with an educational sahara from [employer]. Review of Systems Const All systems reviewed & are unremarkable except as noted in HPI and below ENT Reports hearing loss Card Denies chest pain at rest, Denies chest pain with activity, Denies edema, Denies irregular heart rhythm, Denies claudication, Reports dyspnea, Reports dyspnea on exertion, Reports orthopnea, Reports paroxysmal nocturnal dyspnea and Denies slow heart rate Resp Denies cough, Reports dyspnea and Reports dyspnea on exertion Physical exam (Primary Care) Vital Signs: Last Vital Signs Pulse 89 08/29/23 09:21 BP 126/66 08/29/23 09:21 Pulse Ox 92 08/29/23 09:21 Oxygen Delivery Method Nasal Cannula 08/29/23 09:21 BMI result Body Mass Index 19.9 BMI Assessment/Plan discussion: Low BMI Low, Plan discussed: increase calorie intake Tobacco/Smoking Status: Tobacco use Status Tobacco use date assessed 05/09/23 08/29/23 09:27 Patient Tobacco Use Status Former Tobacco user 08/29/23 09:27 Tobacco use type Cigarette 08/29/23 09:27 e-Cigarette/Vaping Use Former Use 08/29/23 09:27 Thrive Assessment: Date of Thrive Assessment Date Thrive assessed 08/10/23 08/29/23 09:27 Const General: in distress mild and ill appearing chronically Nutritional Appearance: malnourished Limitations: wheelchair Resp Auscultation: rhonchi Cardio Jugular venous distension: no JVD Rate: regular rate Rhythm: regular rhythm Heart sounds: S1 normal heart sound present and S2 normal heart sound present Extrem General: Yes full ROM Assessment and Plan Assessment & Plan (1) NICM (nonischemic cardiomyopathy): Comment: follows w/HCS Code(s): I42.8 - Other cardiomyopathies Plan: Continue carvedilol. The goal is to not gain 5 lb in a week. Follow-up with Cardiology. Last ejection fraction done 05/30/2023 shows ejection fraction of 35-40%. (2) Paroxysmal atrial fibrillation: Comment: taking eliquis Code(s): I48.0 - Paroxysmal atrial fibrillation Plan: Continue Eliquis. Follow-up with Cardiology. (3) Malnutrition: Code(s): E46 - Unspecified protein-calorie malnutrition Qualifiers: Malnutrition type: protein-calorie malnutrition Protein-calorie malnutrition severity: mild Qualified Code(s): E44.1 - Mild protein-calorie malnutrition Plan: Start Roosevelt or any other nutritional supplement. (4) Emphysema with chronic bronchitis: Code(s): J44.9 - Chronic obstructive pulmonary disease, unspecified Plan: Continue long-acting inhaler. Use rescue inhaler as needed. Follow-up with pulmonology. (5) Diabetes: Comment: states told has diabetes this year, no Rx yet, watching diet at this time- states glucose was 156 yesterday Code(s): E11.9 - Type 2 diabetes mellitus without complications Qualifiers: Diabetes mellitus type: type 2 Diabetes mellitus petroleum terminal plant operator insulin use: without petroleum terminal plant operator use Diabetes mellitus complication status: without complication Qualified Code(s): E11.9 - Type 2 diabetes mellitus without complications Plan: Continue metformin. A1c goal is equal or less than 7%. (6) Hearing loss: Code(s): H91.90 - Unspecified hearing loss, unspecified ear Qualifiers: Hearing loss type: unspecified Laterality: bilateral Qualified Code(s): H91.93 - Unspecified hearing loss, bilateral Plan: Hearing test ordered. Orders: Orders XR chest 2V Today J44.9 - Chronic obstructive pulmonary disease, unspecified Referrals Pulmonology Referral J44.9 - Chronic obstructive pulmonary disease, unspecified Medications: New thyaaqrb-ofgaqjyyg-wlchrmu HMB 7-7-1.5 gram (Roosevelt) 1 ea PO .once a day 30 days 30 ea 6RF E46 - Unspecified protein-calorie malnutrition, J44.9 - Chronic obstructive pulmonary disease, unspecified ferrous sulfate 325 mg PO DAILY 90 days 90 tabs 1RF Changed From albuterol sulfate 90 mcg/actuation (Ventolin HFA) 2 puffs inhalation Q4H PRN wheezing To Ventolin HFA 90 mcg/actuation (albuterol sulfate) 2 puffs inhalation Q4H 30 days PRN 18 grams 2RF wheezing NS From umeclidinium-vilanterol 62.5-25 mcg/actuation (Anoro Ellipta) 1 inh inhalation DAILY To umeclidinium-vilanterol 62.5-25 mcg/actuation (Anoro Ellipta) 1 inh inhalation DAILY 60 days 60 ea 3RF Coding Level of Care Code Est Pt Level 5 (33581) Complex EM visit Add On G2211 Diagnoses NICM (nonischemic cardiomyopathy) I42.8 Paroxysmal atrial fibrillation I48.0 Mild protein-calorie malnutrition E44.1 Malnutrition type: protein-calorie malnutrition Protein-calorie malnutrition severity: mild Emphysema with chronic bronchitis J44.9 Type 2 diabetes mellitus without complication, without long-term current use of insulin E11.9 Diabetes mellitus type: type 2 Diabetes mellitus petroleum terminal plant operator insulin use: without penitentiary use Diabetes mellitus complication status: without complication Bilateral hearing loss, unspecified hearing loss type H91.93 Hearing loss type: unspecified Laterality: bilateral Time Spent (min) 28
[2023-08-29 09:21] VITALS: BP 126/66; PULSE 89; O2SAT 92; BMI 19.9
== END 2023-08-29 09:54 | disposition home or self-care (01) ==
PROVIDERS: PCP Internal Medicine; Visit Provider Internal Medicine
DX: I42.8 Other cardiomyopathies (principal); I48.0 Paroxysmal atrial fibrillation; E44.1 Mild protein-calorie malnutrition; J44.9 Chronic obstructive pulmonary disease, unspecified; H91.93 Unspecified hearing loss, bilateral
CPT/HCPCS: 99214; G2211

== ENCOUNTER 2023-08-29 10:02 | Outpatient (REF) | payer OTHER, SELFPAY ==
--- NOTE | ~2023-08-29 | XR_ITS ---
EXAMINATION: XR CHEST CLINICAL INFORMATION: Chronic obstructive pulmonary disease unspecified. COMPARISON: August 11, 2023 TECHNIQUE: 2 views of the chest were obtained. FINDINGS: Stable cardiomediastinal silhouette. Lungs remain hyperinflated. Severe cystic changes of bronchiectasis in the lung are better characterized on CT scan. Previously described areas of bronchial wall thickening and nodular opacities throughout the lungs suggestive of bronchopneumonia redemonstrated with some interval improvement since August 11, 2023 exam. No gross pleural effusion. There is no gross pneumothorax. Degenerative changes in the thoracic spine. XR/XR chest 2V IMPRESSION: Severe cystic changes of bronchiectasis in the lung are better characterized on CT scan. Previously described areas of bronchial wall thickening and nodular opacities throughout the lungs suggestive of bronchopneumonia redemonstrated with some interval improvement since August 11, 2023 exam. This study was presented today September 17, 2023 for interpretation. Stat results provided at this time as requested by referring provider.
== END 2023-08-29 10:03 | disposition home or self-care (01) ==
LOC: HO.XRAY 10:02
PROVIDERS: PCP Internal Medicine; Visit Provider Internal Medicine
DX: Z13.89 Encounter for screening for other disorder (principal)
CPT/HCPCS: 71046

== ENCOUNTER 2023-08-30 08:06 | Inpatient (IN) | payer OTHER, SELFPAY ==
[2023-08-30] VITALS (12 sets, daily range): BP systolic 106–141; BP diastolic 61–78; PULSE 81–100; RESP 16–36; TEMP 36.3–36.6; O2SAT 70–100; BMI 19.0
--- NOTE | ~2023-08-30 | XR_ITS ---
EXAMINATION: XR CHEST CLINICAL INFORMATION: Dyspnea COMPARISON: Chest radiograph yesterday along with 08/11/[address] chest 08/09/2023 TECHNIQUE: Frontal view of the chest was obtained. FINDINGS: Compared to the chest radiograph from yesterday, there has been no significant interval change in the diffuse lung disease that was better demonstrated on the recent CT scan showing severe bronchiectasis and cystic changes in the lungs with diffuse patchy infiltrates. XR/XR chest 1V IMPRESSION: No significant interval change in the appearance of the chest.
--- NOTE | 2023-08-30 08:13 | ECG_ITS ---
Test Reason : DYSPNEA Blood Pressure : / mmHG Vent. Rate : 100 BPM Atrial Rate : 100 BPM P-R Int : 124 ms QRS Dur : 124 ms QT Int : 390 ms P-R-T Axes : 068 -74 043 degrees QTc Int : 503 ms Normal sinus rhythm Right bundle branch block Left anterior fascicular block Bifascicular block Abnormal ECG When compared with ECG of 24-JUN-2023 08:01, Nonspecific T wave abnormality has replaced inverted T waves in Inferior leads T wave inversion now evident in Anterior leads Referred By: Mimi Read Electronically Signed By:Eduard Manning
--- NOTE | 2023-08-30 08:16 | ED.SOB ---
HPI - SOB/Dyspnea General Chief Complaint: Upper Respiratory Symptoms Stated Complaint: respitory distress sating on 70% RA, now 97 Time Seen by Provider: 08/30/23 08:08 Source: patient, EMS, old records reviewed and external grinder tool Mode of arrival: EMS Limitations: no limitations History of Present Illness ED Provider: TOYIN HPI Narrative: 83 yo male with PMH of ESBL + UTI, COPD per EMS on 2L NC, HTN, CHF, GERD, glaucoma, PAF on eliquis, DM2, HLD, chronic respiratory failure, bronchiectasis, non-ischemic cardiomyopathy just admitted here until 08/11 for COPD treated with steroids and vanc/cefepime/flagyl - DC on levofloxacin and CHF given IV lasix and able to wean his O2 back down to 2L NC from NRB on last admission today EMS was called for 1 week difficulty breathing and he feels he cannot walk to his bathroom without getting short of breath. He has a cough wit sputum but no fevers. No chest pain. EMS found him with 800 feet of O2 tubing in resp distress with sats in mid 70s gave duoneb he is improved greatly with sats at 98% on duoneb. MD elicited complaint: shortness of breath and cough Pertinent past history: COPD and congestive heart failure Onset (ago): week(s) (1) Context: recent illness and occurred during exertion Timing: progressively worsening Severity: severe Exacerbating factors: exertion and coughing Relieving factors: oxygen, rest and bronchodilators Known history of: COPD and congestive heart failure Associated symptoms: cough, wheezing and sputum production Treatment prior to arrival: oxygen and bronchodilator Related Data Home Medications ?Medication ?Instructions ?Recorded ?Confirmed lovastatin 10 mg tablet 10 mg PO DAILY 03/09/23 08/30/23 acetaminophen 500 mg tablet 1,000 mg PO DAILY PRN Pain 08/09/23 08/30/23 (Acetaminophen Extra Strength) brimonidine 0.2 %-timolol 0.5 % 1 drp ophthalmic (eye) BID 08/09/23 08/30/23 eye drops (Combigan) carvedilol 3.125 mg tablet 3.125 mg PO BID 08/30/23 08/30/23 furosemide 20 mg tablet 20 mg PO DAILY 08/30/23 08/30/23 ipratropium 0.5 mg-albuterol 3 mg 3 ml inhalation QID PRN for dyspnea 08/30/23 08/30/23 (2.5 mg base)/3 mL nebulization soln metformin 500 mg tablet 500 mg PO DAILY 08/30/23 08/30/23 omeprazole 20 mg capsule,delayed 20 mg PO DAILY@0630 08/30/23 08/30/23 release potassium chloride 10 mEq 10 meq PO DAILY 08/30/23 08/30/23 tablet,extended release tamsulosin 0.4 mg capsule 0.4 mg PO DAILY 08/30/23 08/30/23 Previous Rx's ?Medication ?Instructions ?Recorded walker #1 ea 03/20/22 lancets 28 gauge (FreeStyle #100 ea 10/30/22 Lancets) apixaban 5 mg tablet (Eliquis) 5 mg PO BID 90 days #180 tabs 05/15/23 wheelchair #1 ea 06/20/23 blood sugar diagnostic (FreeStyle #100 ea 08/08/23 Lite Strips) straight cane #1 ea 08/08/23 blood-glucose meter (FreeStyle #1 ea 08/23/23 Lite Meter kit) finasteride 5 mg tablet 5 mg PO DAILY #90 tabs 08/27/23 Ventolin HFA 90 mcg/actuation 2 puff inhalation Q4H PRN wheezing 08/29/23 aerosol inhaler (albuterol sulfate) 30 days #18 grams commode #1 ea 08/29/23 umeclidinium 62.5 mcg-vilanterol 1 inh inhalation DAILY 60 days #60 08/29/23 25 mcg/actuation powdr for ea inhalation (Anoro Ellipta) Allergies Allergy/AdvReac Type Severity Reaction Status Date / Time Penicillins [PENICILLINS] Allergy Intermediate PASSED Verified 08/30/23 08:15 OUT trazodone Allergy Intermediate tremors Verified 08/30/23 08:15 brimonidine [From Alphagan P] Allergy Unknown Verified 08/30/23 08:15 diphenhydramine Allergy Unknown Verified 08/30/23 08:15 [From Benadryl] Review of Systems Review of Systems: Constitutional : No Fever, No Chills ENT/Mouth : No Hoarseness, No sore throat, No Rhinorrhea Eyes: No Redness, No Discharge, No Vision Changes Cardiovascular : No Chest Pain, positive SOB, positive Dyspnea on Exertion, No Edema Respiratory : positive Cough, pos Sputum, positive Wheezing, Gastrointestinal : No Nausea, No Vomiting, No Diarrhea, No abdominal Pain Genitourinary : No Dysuria, No Hematuria Musculoskeletal : No joint pain, No Myalgias Skin : No rash Neuro : No Weakness, No Numbness, No Headache Psych : No anxiety, depression Heme/Lymph: No Bruising, No Bleeding Endocrine : No Polyuria, No Polydipsia All other systems reviewed and are negative [facility] Past Medical History Attestation statement: The following information was validated with the patient. Source: old records reviewed Medical History Hearing loss Acute hypoxemic respiratory failure Chronic hypoxic respiratory failure COPD (chronic obstructive pulmonary disease) Bronchiectasis NICM (nonischemic cardiomyopathy) Swallowing problem 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 Kidney stone on left side Paroxysmal atrial fibrillation Congestive heart failure Acute and chronic respiratory failure BPH loc w urin obs/LUTS Urinary retention History of COVID-19 Chronic anticoagulation History of pneumothorax Diabetes Supplemental oxygen dependent Kidney stone on left side JESSA (mycobacterium avium-intracellulare) Bronchiectasis Glaucoma Pure hypercholesterolemia GERD (gastroesophageal reflux disease) History of MAC infection Essential hypertension Surgical History History of transurethral resection of bladder tumor (TURBT) History of cataract surgery History of left inguinal hernia repair History of bronchoscopy History of colonoscopy History of lumbar surgery History of cystoscopy Family History Family History Father No problems noted. Mother Medical history unknown Sister Diabetes Daughter In good health Son In good health Brother No problems noted. Social History Social History Household Members: None Housing: Apartment Housing Other:: Gianluca Martina Are you a primary care coordination manager to a significant other at home: No Do you presently have visiting nurse or other home services: Yes ([employer]) Alcohol intake: never Comment: 1:1 sitter in room Patient Tobacco Use Status: Former Tobacco user Tobacco use type: Cigarette Smoked in Last 30 Days: No e-Cigarette/Vaping Use: Former Use Second Hand Smoke Exposure: No Use of substances other than those prescribed or required for medical reasons: No Advance Directives: Yes Advance Directives on File: Yes Advance Directives Date on File: 02/03/22 service: No Current occupational status: retired Cognitive needs: No Hearing needs: Yes Vision needs: Yes Physical Exam Vital Signs: Vital Signs: Last Vital Signs Temp 98 F 08/30/23 11:49 Pulse 100 08/30/23 11:49 Resp 26 H 08/30/23 11:49 BP 118/64 08/30/23 11:49 Pulse Ox 96 08/30/23 11:49 O2 Del Method Nasal Cannula 08/30/23 11:49 O2 Flow Rate 2 08/30/23 11:49 Oxygen Flow Rate 2 08/30/23 10:32 BMI result Body Mass Index 19.0 Appearance: Alert. Oriented X3. mild acute distress. Eyes: Pupils equal, round and reactive to light. ENT: Pharynx normal. Neck: Normal inspection. Neck supple. mild JVD CVS: Normal heart rate and rhythm. Pulses normal. Respiratory: Mild respiratory distress retractions and tachypnea. Breath sounds very coarse and diminished with wheezes and crackles at the bases Abdomen: Soft and non-tender. Skin: Skin warm and dry. pale skin color. Normal skin turgor. Extremities: No lower extremity edema. Neuro: Oriented X 3. No motor deficit. No sensory deficit. Medications Administered Discontinued Medications Generic Name Dose Route Start Last Admin Trade Name Freq PRN Reason Stop Dose Admin Albuterol Sulfate 5 mg/ 7.5 mg 08/30/23 08:17 08/30/23 08:21 Albuterol Sulfate 2.5 mg INHALE 08/30/23 08:18 7.5 mg ONCE ONE Administration Albuterol Sulfate 2.5 mg/ 5 mg 08/30/23 09:05 08/30/23 09:07 Albuterol Sulfate 2.5 mg INHALE 08/30/23 09:06 5 mg ONCE ONE Administration Cefepime HCl 1 gm/ Sodium 50 mls @ 100 mls/hr 08/30/23 08:13 08/30/23 11:44 Chloride IV 08/30/23 08:42 Infused ONCE ONE Infusion Azithromycin 500 mg/ Sodium 250 mls @ 125 mls/hr 08/30/23 10:40 08/30/23 13:49 Chloride IV 08/30/23 12:39 Infused ONCE ONE Infusion Methylprednisolone Sodium Succinate 60 mg 08/30/23 08:13 08/30/23 08:27 Methylprednisolone Sod Succ 125 Mg/2 Ml Vial IVPUSH 08/30/23 08:14 60 mg ONCE ONE Administration Medical Decision Making Medical Decision Making [facility] Narrative: 83 yo male with PMH of ESBL + UTI, COPD per EMS on 2L NC, HTN, CHF, GERD, glaucoma, PAF on eliquis, DM2, HLD, chronic respiratory failure, bronchiectasis, non-ischemic cardiomyopathy just admitted here until 08/11 for COPD treated with steroids and vanc/cefepime/flagyl here with c/o worsening dyspnea, cough, sputum production found hypoxic on his home O2 by EMS - responded to nebs by EMS. Has no chest pain. Doubt VTE given DOAC use, will obtain labs, CXR, start on nebs, IV steroids, empiric cefepime. Differential Diagnosis Differential Diagnoses: The differential diagnosis associated with the presentation includes CHF, COPD, bronchiectasis, chronic resp failure Admission/Observation Consideration of admission/observation: Escalation of care including admission/observation considered will admit still coarse and wheezing improved overall but still tachypneic Consult Healthcare Provider Management of the patient was discussed with: Hospitalist (will admit) Lab Data [facility] Lab Attestation statement: I reviewed the patient's lab results. 08/30/23 08:36 08/30/23 08:36 Labs: Lab Results 08/30/23 08/30/23 08/30/23 Range/Units 08:36 08:40 10:53 WBC 13.6 H (4.8-10.8) X10*3/uL RBC 4.19 L D (4.60-5.80) X10*6/uL Hgb 10.8 L (14.0-18.0) g/dl Hct 35.1 L D (42.0-52.0) % MCV 83.8 (80.0-98.0) fL MCH 25.8 L (27.0-33.0) pg MCHC 30.8 L (31.0-36.0) g/dl RDW 16.1 H (11.0-16.0) % Plt Count 313 (160-400) X10*3/uL MPV 9.0 L (9.4-12.4) fL Immature Gran % (Auto) 0.7 H (0.0-0.4) % Neut % (Auto) 82.7 H (45-73) % Lymph % (Auto) 5.4 L (20-40) % Cass[place] % (Auto) 4.7 (2-11) % Eos % (Auto) 6.3 H (0-4) % Baso % (Auto) 0.2 (0-2) % Lymph # (Auto) 0.7 L (1.2-4.9) X10*3/uL [place] # (Auto) 0.6 (0.1-1.2) X10*3/uL Eos # (Auto) 0.9 H (0.0-0.4) X10*3/uL Baso # (Auto) 0.0 (0.0-0.2) X10*3/uL Abs Immat Gran (auto) 0.09 H (0.00-0.03) X10*3/uL Absolute Neuts (auto) 11.3 H (2.0-8.3) x10*3/uL Absolute Nucleated RBC 0.000 (0.0-0.012) X10*3/uL Nucleated RBC % (auto) 0.0 (0.0-0.2) /100WBC VBG pH 7.38 (7.32-7.43) VBG pCO2 54 mmHg VBG pO2 49 mmHg VBG HCO3 32 H (22-26) mmol/L VBG O2 Saturation 69.0 % VBG Base Excess 6.3 mmol/L Sodium 140 (135-145) mmol/L Potassium 3.7 (3.3-5.1) mmol/L Chloride 102 (96-108) mmol/L Carbon Dioxide 30 H (22-29) mmol/L Anion Gap 12 (12-20) BUN 18 H (9-16) mg/dL Creatinine 0.65 (0.5-1.4) mg/dL Estim Creat Clear Calc 69.3 Estimated GFR > 60 Random Glucose 126 H (60-115) mg/dL Lactic Acid 0.8 (0.5-2.0) mmol/L Calcium 8.7 (8.4-10.2) mg/dL Magnesium 2.0 (1.6-2.6) mg/dL Total Bilirubin 0.2 (0.0-1.0) mg/dL Direct Bilirubin < 0.2 (0.0-0.5) mg/dL AST 12 (5-37) U/L ALT 10 (0-40) U/L Alkaline Phosphatase 67 (39-117) U/L Troponin I High Sens 4.2 (<3.5-35.0) ng/L B-Natriuretic Peptide 32 (<100) pg/mL Total Protein 7.7 (6.5-8.0) g/dL Albumin 3.3 L (3.5-5.0) g/dL Lipase 15 (8-78) U/L Procalcitonin 0.05 ng/mL Urine Color Urine Appearance Urine pH (5.0-9.0) Ur Specific [place] (1.005-1.025) Urine Protein (Neg-Trace) mg/dL Urine Glucose (UA) (Negative) mg/dL Urine Ketones (Negative) mg/dL Urine Blood (Negative) Urine Nitrite (Negative) Ur Leukocyte Esterase (Negative) Urine RBC (0-2) /HPF Urine WBC (0-5) /HPF Ur Squamous Epith Cells (0-2) /HPF Urine Bacteria (None Seen) Hyaline Casts (0-2) /LPF Nasal Screen MRSA (PCR) NEGATIVE (Negative) Nasal S. aureus Screen NEGATIVE (Negative) Nasal MRSA/S.aureus Interp SEE NOTE Influenza Type A (PCR) NEGATIVE (Negative) Influenza Type B (PCR) NEGATIVE (Negative) RSV RNA Qual (PCR) NEGATIVE (Negative) SARS-CoV-2 RNA (RT-PCR) NEGATIVE (Negative) 08/30/23 Range/Units 11:52 WBC (4.8-10.8) X10*3/uL RBC (4.60-5.80) X10*6/uL Hgb (14.0-18.0) g/dl Hct (42.0-52.0) % MCV (80.0-98.0) fL MCH (27.0-33.0) pg MCHC (31.0-36.0) g/dl RDW (11.0-16.0) % Plt Count (160-400) X10*3/uL MPV (9.4-12.4) fL Immature Gran % (Auto) (0.0-0.4) % Neut % (Auto) (45-73) % Lymph % (Auto) (20-40) % Cassia % (Auto) (2-11) % Eos % (Auto) (0-4) % Baso % (Auto) (0-2) % Lymph # (Auto) (1.2-4.9) X10*3/uL [place] # (Auto) (0.1-1.2) X10*3/uL Eos # (Auto) (0.0-0.4) X10*3/uL Baso # (Auto) (0.0-0.2) X10*3/uL Abs Immat Gran (auto) (0.00-0.03) X10*3/uL Absolute Neuts (auto) (2.0-8.3) x10*3/uL Absolute Nucleated RBC (0.0-0.012) X10*3/uL Nucleated RBC % (auto) (0.0-0.2) /100WBC VBG pH (7.32-7.43) VBG pCO2 mmHg VBG pO2 mmHg VBG HCO3 (22-26) mmol/L VBG O2 Saturation % VBG Base Excess mmol/L Sodium (135-145) mmol/L Potassium (3.3-5.1) mmol/L Chloride (96-108) mmol/L Carbon Dioxide (22-29) mmol/L Anion Gap (12-20) BUN (9-16) mg/dL Creatinine (0.5-1.4) mg/dL Estim Creat Clear Calc Estimated GFR Random Glucose (60-115) mg/dL Lactic Acid (0.5-2.0) mmol/L Calcium (8.4-10.2) mg/dL Magnesium (1.6-2.6) mg/dL Total Bilirubin (0.0-1.0) mg/dL Direct Bilirubin (0.0-0.5) mg/dL AST (5-37) U/L ALT (0-40) U/L Alkaline Phosphatase (39-117) U/L Troponin I High Sens (<3.5-35.0) ng/L B-Natriuretic Peptide (<100) pg/mL Total Protein (6.5-8.0) g/dL Albumin (3.5-5.0) g/dL Lipase (8-78) U/L Procalcitonin ng/mL Urine Color Yellow Urine Appearance Cloudy Urine pH 6.5 (5.0-9.0) Ur Specific [place] 1.020 (1.005-1.025) Urine Protein 30 (1+) H (Neg-Trace) mg/dL Urine Glucose (UA) Negative (Negative) mg/dL Urine Ketones Trace (Negative) mg/dL Urine Blood Large (3+) H (Negative) Urine Nitrite Negative (Negative) Ur Leukocyte Esterase Large (3+) H (Negative) Urine RBC >20 H (0-2) /HPF Urine WBC 11-20 H (0-5) /HPF Ur Squamous Epith Cells 0-2 (0-2) /HPF Urine Bacteria None Seen (None Seen) Hyaline Casts 0-2 (0-2) /LPF Nasal Screen MRSA (PCR) (Negative) Nasal S. aureus Screen (Negative) Nasal MRSA/S.aureus Interp Influenza Type A (PCR) (Negative) Influenza Type B (PCR) (Negative) RSV RNA Qual (PCR) (Negative) SARS-CoV-2 RNA (RT-PCR) (Negative) Independent Interpretation I performed an independent interpretation of an: EKG and Plain X-Ray (coarse lung markings) Interpretation: Rate: 100 Rhythm: NSR [place]: left Normal P waves. Normal CALVIN. RBBB ST T wave : nonspecific ST T wave changes, no FRED, ST slight depressions V3-V4 qTC: 503 prior studies: similar changes in June The study has been interpreted contemporaneously by me. . Radiology Impression Discussion of test interpretation with radiology: I have reviewed the radiologist's reading. Independent Historian Clinical information obtained from an independent historian. History obtained from or confirmed by: EMS External Record Review External record reviewed: Inpatient record Critical Care Time Critical Care Time Critical Care Time: Yes Total Critical Care Time: 45 Attestation: repeat nebs, IV steroids, review of records, admission I attest to this time spent taking care of the patient Discharge Plan Discharge Clinical Impression: Pneumonia Qualifiers: Pneumonia type: due to unspecified organism Laterality: bilateral Lung location: unspecified part of lung Qualified Code(s): J18.9 - Pneumonia, unspecified organism Patient Disposition: Admitted As Inpatient Interventions: Admission Worksheet (ED) Last Done: 08/30/23 14:13 Discharge Date/Time: 08/30/23 14:54
[2023-08-30] MEDS: Albuterol Sulfate 5 MG, Albuterol Sulfate (0.083%) 2.5 MG 7.5 MG INHALE (08:21)
[2023-08-30] MEDS: methylPREDNISolone Sod Succ 125 MG/2 ML VIAL 60 MG IVPUSH (08:27)
[2023-08-30 08:42] LABS: MANUAL DIFF FLAG NO
[2023-08-30 08:44] LABS: Basophils Percent Auto 0.2 % (0-2); Eosinophils Absolute Auto 0.9 X10*3/uL (0.0-0.4); Eosinophils Percent Auto 6.3 % (0-4); Hematocrit 35.1 % (42.0-52.0); Hemoglobin 10.8 g/dl (14.0-18.0); Imm Gran Abs Auto 0.09 X10*3/uL (0.00-0.03); Imm Gran Pct Auto 0.7 % (0.0-0.4); Lymphocytes Absolute Auto 0.7 X10*3/uL (1.2-4.9); Lymphocytes Percent Auto 5.4 % (20-40); Mean Corpuscular HGB Conc 30.8 g/dl (31.0-36.0); Mean Corpuscular Hemoglobin 25.8 pg (27.0-33.0); Mean Corpuscular Volume 83.8 fL (80.0-98.0); Monocytes Absolute Auto 0.6 X10*3/uL (0.1-1.2); Monocytes Percent Auto 4.7 % (2-11); Neutrophils Absolute Auto 11.3 x10*3/uL (2.0-8.3); Neutrophils Percent Auto 82.7 % (45-73); Platelet Count 313 X10*3/uL (160-400); Red Blood Count 4.19 X10*6/uL (4.60-5.80); Red Cell Distribution Width 16.1 % (11.0-16.0); White Blood Count 13.6 X10*3/uL (4.8-10.8)
[2023-08-30 08:46] LABS: Venous Blood Gas Refer to POC result
[2023-08-30 08:47] LABS: VBG Base Excess 6.3 mmol/L; VBG HCO3 32 mmol/L (22-26); VBG pCO2 54 mmHg; VBG pH 7.38 (7.32-7.43); VBG pO2 49 mmHg
[2023-08-30] MEDS: cefEPime HCl 1 GM in 0.9 % Sodium Chloride 50 ML IV (08:50)
[2023-08-30 08:56] LABS: Lactic Acid 0.8 mmol/L (0.5-2.0)
[2023-08-30 09:07] LABS: B Type Natriuretic Peptide 32 pg/mL (<100)
[2023-08-30] MEDS: Albuterol Sulfate 2.5 MG, Albuterol Sulfate (0.083%) 2.5 MG 5 MG INHALE (09:07)
[2023-08-30 09:08] LABS: Alanine Aminotransferase 10 U/L (0-40); Albumin Level 3.3 g/dL (3.5-5.0); Alkaline Phosphatase 67 U/L (39-117); Anion Gap 12 (12-20); Aspartate Amino Transferase 12 U/L (5-37); Bilirubin Direct < 0.2 mg/dL (0.0-0.5); Bilirubin Total 0.2 mg/dL (0.0-1.0); Blood Urea Nitrogen 18 mg/dL (9-16); Calcium 8.7 mg/dL (8.4-10.2); Carbon Dioxide 30 mmol/L (22-29); Chloride 102 mmol/L (96-108); Creatinine Clr Calc Pharmacy 69.3; Estimated Glomerular Filt Rate > 60; Glucose Random 126 mg/dL (60-115); Lipase 15 U/L (8-78); Potassium 3.7 mmol/L (3.3-5.1); Sodium 140 mmol/L (135-145); Total Protein 7.7 g/dL (6.5-8.0); Troponin-I High Sensitivity 4.2 ng/L (<3.5-35.0)
[2023-08-30 09:22] LABS: Procalcitonin 0.05 ng/mL
[2023-08-30 09:55] LABS: Influenza A PCR NEGATIVE (Negative); Influenza B PCR NEGATIVE (Negative); Resp Syncy Virus RNA Qual PCR NEGATIVE (Negative); SARS COV2 PCR INHOUSE NEGATIVE (Negative)
--- NOTE | 2023-08-30 11:20 | P.HPHOSP_ITS ---
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 Patient has a complicated recent pulmonary PMH and was treated on 06/30 with 3 weeks of IV meropenem for ESBL bacteremia secondary to pulmonary source with last dose 07/20/2023. Patient was re-hospitalized from 08/08-08/11 for acute hypoxic respiratory failure and sepsis secondary to acute COPD exacerbation with pneumonia. Was treated with vancomycin, cefepime, and Flagyl, and discharged to STR on Levaquin x7 days. Initially felt better after STR discharge for approximately one week, then had increasing shortness of breath and difficulty breathing, especially with any type of exertion. Cough has been productive yellow-greenish sputum. EMS apparently found patient in respiratory distress, satting in the mid 70s on home O2. Denies fever, chills. No lower leg edema. Denies chest pain/pressure, palpitations. No abdominal pain. In the ED pt was tachypneic up to 36, and tachycardic up to 100, satting at 98% on home 3L NC. Labs were largely unremarkable and around baseline for patient. Chronic leukocytosis of 13.6. Chronic normocytic anemia of H&H 10.8/35.1, around baseline. No significant electrolyte abnormalities. Renal function baseline. Lactic acid WNL. Hepatic function WNL. Troponin 4.2. BNP WNL at 32. Procalcitonin 0.05. MRSA screen pending. CXR showed no significant interval change from 08/11/2023, which showed severe cystic changes in the lungs and bronchiectasis, with innumerable areas of bronchial wall thickening and nodular opacities suggestive bronchopneumonia. EKG demonstrated normal sinus rhythm with right bundle branch block and left anterior fascicular block with T- wave inversions in V1 and V3, but no significant ST elevations or depressions. Pt was treated with DuoNebs, Solu-Medrol, cefepime, and azithromycin. Pt will be admitted to the hospital for treatment and further evaluation of acute on chronic hypoxic respiratory failure in the setting of acute COPD exacerbation. Review of Systems 2 Review of Systems: SOB, WRIGHT Productive cough No fever, chills Denies lower leg edema No chest pain/pressure, palpitations Denies abdominal pain [facility] Medical History (Updated 09/06/23 @ 00:02 by Lizzie Waldrop) COPD (chronic obstructive pulmonary disease) Acute hypoxemic respiratory failure Hearing loss Chronic hypoxic respiratory failure Bronchiectasis NICM (nonischemic cardiomyopathy) Swallowing problem 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 Kidney stone on left side Paroxysmal atrial fibrillation Congestive heart failure Acute and chronic respiratory failure BPH loc w urin obs/LUTS Urinary retention History of COVID-19 Chronic anticoagulation History of pneumothorax Diabetes Supplemental oxygen dependent Kidney stone on left side JESSA (mycobacterium avium-intracellulare) Bronchiectasis Glaucoma Pure hypercholesterolemia GERD (gastroesophageal reflux disease) History of MAC infection Essential hypertension Family History Father No problems noted. Mother Medical history unknown Sister Diabetes Daughter In good health Son In good health Brother No problems noted. Surgical History History of transurethral resection of bladder tumor (TURBT) History of cataract surgery History of left inguinal hernia repair History of bronchoscopy History of colonoscopy History of lumbar surgery History of cystoscopy Social History Household Members: None Household Members Other:: [facility] Housing: Apartment Housing Other:: Gianluca Mack Are you a primary infant childcare provider to a significant other at home: No Do you presently have visiting nurse or other home services: Yes Alcohol intake: never Comment: 1:1 sitter in room Patient Tobacco Use Status: Current everyday Tobacco user Tobacco use type: Cigarette Cigarette Packs Per Day: 1 Cigarettes Per Day: 20.0 e-Cigarette/Vaping Use: Former Use Second Hand Smoke Exposure: No Advance Directives Date on File: 02/03/22 service: No Current occupational status: retired Cognitive needs: No Hearing needs: Yes Vision needs: Yes Meds Allergies Allergy/AdvReac Type Severity Reaction Status Date / Time Penicillins [PENICILLINS] Allergy Intermediate PASSED Verified 08/30/23 08:15 OUT trazodone Allergy Intermediate tremors Verified 08/30/23 08:15 brimonidine [From Alphagan P] Allergy Unknown Verified 08/30/23 08:15 diphenhydramine Allergy Unknown Verified 08/30/23 08:15 [From Benadryl] Active Medications: Current Medications Azithromycin 500 mg/ Sodium (Chloride) 250 mls @ 125 mls/hr IV ONCE ONE Stop: 08/30/23 12:39 Home Medications ?Medication ?Instructions ?Recorded ?Confirmed ?Last Taken ?Type lovastatin 10 mg tablet 10 mg PO DAILY 03/09/23 08/30/23 03/08/23 History acetaminophen 500 mg tablet 1,000 mg PO DAILY PRN Pain 08/09/23 08/30/23 Unknown History (Acetaminophen Extra Strength) brimonidine 0.2 %-timolol 0.5 % 1 drp ophthalmic (eye) BID 08/09/23 08/30/23 Unknown History eye drops (Combigan) metformin 500 mg tablet 500 mg PO DAILY 08/30/23 08/30/23 Unknown History omeprazole 20 mg capsule,delayed 20 mg PO DAILY@0630 08/30/23 08/30/23 Unknown History release potassium chloride 10 mEq 10 meq PO DAILY 08/30/23 08/30/23 Unknown History tablet,extended release tamsulosin 0.4 mg capsule 0.4 mg PO DAILY 08/30/23 08/30/23 Unknown History Physical Exam 2 Vital Signs and Narrative: Vital Signs: Last Vital Signs Temp 98 F 08/30/23 08:13 Pulse 90 08/30/23 10:32 Resp 20 08/30/23 10:32 BP 120/61 08/30/23 10:32 Pulse Ox 94 08/30/23 10:32 O2 Del Method Nasal Cannula 08/30/23 10:32 O2 Flow Rate 2 08/30/23 10:32 Oxygen Flow Rate 2 08/30/23 10:32 BMI result Body Mass Index 19.0 Constitutional: Alert, in no acute distress. Mental Status: Oriented to person, place and time. Eyes: Pupils are equal, round, and reactive to light. Ear, Nose, and Throat: Oropharynx clear, mucous membranes moist. Ears and nose without deformities. Trachea midline. Respiratory: Diffuse bilateral expiratory wheezing. Diminished throughout. Tachypnic. Cardiovascular: S1, S2 regular. No murmurs, rubs, or gallops. Gastrointestinal: Abdomen soft, non-tender, non-distended. Normal bowel sounds. Neurologic: Cranial nerves II-XII are grossly intact bilaterally. No focal neurological deficits. Moves all extremities spontaneously. Skin: Warm, dry. Musculoskeletal: No cyanosis or clubbing. Extremities: No edema. Psychiatric: Normal mood and affect. Results Labs 09/03/23 05:50 09/03/23 05:50 Labs: Laboratory Results - last 24 hr 08/30/23 08/30/23 08:36 08:40 MCV 83.8 MCH 25.8 L MCHC 30.8 L RDW 16.1 H Plt Count 313 MPV 9.0 L Immature Gran % (Auto) 0.7 H Neut % (Auto) 82.7 H Lymph % (Auto) 5.4 L [place] % (Auto) 4.7 Eos % (Auto) 6.3 H Baso % (Auto) 0.2 Lymph # (Auto) 0.7 L [place] # (Auto) 0.6 Eos # (Auto) 0.9 H Baso # (Auto) 0.0 Abs Immat Gran (auto) 0.09 H Absolute Neuts (auto) 11.3 H Absolute Nucleated RBC 0.000 Nucleated RBC % (auto) 0.0 VBG pH 7.38 VBG pCO2 54 VBG pO2 49 VBG HCO3 32 H VBG O2 Saturation 69.0 VBG Base Excess 6.3 Anion Gap 12 Estim Creat Clear Calc 69.3 Estimated GFR > 60 Random Glucose 126 H Lactic Acid 0.8 Calcium 8.7 Magnesium 2.0 Total Bilirubin 0.2 Direct Bilirubin < 0.2 AST 12 ALT 10 Alkaline Phosphatase 67 Troponin I High Sens 4.2 B-Natriuretic Peptide 32 Total Protein 7.7 Albumin 3.3 L Lipase 15 Procalcitonin 0.05 Influenza Type A (PCR) NEGATIVE Influenza Type B (PCR) NEGATIVE RSV RNA Qual (PCR) NEGATIVE SARS-CoV-2 RNA (RT-PCR) NEGATIVE Imaging Radiologist's Impressions: Impressions Chest X-Ray 08/30/23 09:15 IMPRESSION: No significant interval change in the appearance of the chest. 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 Pt will be admitted to the hospital for treatment and further evaluation of acute on chronic hypoxic respiratory failure in the setting of acute COPD exa Acute on chronic hypoxic respiratory failure in the setting of COPD exacerbation Patient with increasing SOB, WRIGHT, cough Will treat with DuoNebs, Solu-Medrol, guaifenesin Little concern for pneumonia: Procalcitonin WNL, CXR without new consolidations, no fever, chronic cough around baseline Does not meet sepsis criteria: Chronic leukocytosis at baseline, tachycardia secondary to albuterol use; lactic acid WNL Will empirically cover with doxycycline p.o., started 08/30/2023 Continue maintenance inhalers Titrate supplemental O2 >90, wean to 3L home O2 as tolerated Monitor respiratory status Question of UTI UA positive for large leukocyte esterase and 11-20 wbc's, though not enough for reflex culture Patient asymptomatic: Denies polyuria or dysuria No indication to continue antibiotic coverage at this time Nonischemic cardiomyopathy Continue carvedilol Hold Entresto d/t soft BP, resume as warranted HFrEF Hold bumetanide d/t soft BP Resume as warranted Paroxysmal AFib Continue Eliquis Ifa-fkipsfy-qgemtktzp diabetes type [address] on sliding scale insulin Diabetic diet Full Code Attending:?Dr. Zelaya DVT Prophylaxis: On Eliquis Patient will require a 2 night hospitalization for treatment and further evaluation acute on chronic hypoxic respiratory failure in the setting of COPD exacerbation. Given patient's many comorbidities and history rapid pulmonary decompensation, patient require administration of IV steroids, breathing treatments, and close monitoring of respiratory status. Quality Stroke Does the patient have a stroke diagnosis?: No VTE Prior VTE?: No VTE Risk Level:: Medical - moderate - high VTE Device Contraindication: Treatment Not Indicated VTE Drug Contraindication: N/A - Med Ordered
[2023-08-30] MEDS: Azithromycin 500 MG in 0.9 % Sodium Chloride 250 ML 125 MG IV (11:43)
[2023-08-30 12:01] LABS: Appearance Urine Cloudy; Color Urine Yellow; Glucose Urine UA Negative (Negative); Leukocyte Esterase Urine Large (3+) (Negative); Nitrite Urine Negative (Negative); PH 6.5 (5.0-9.0); UMIC TRIGGER UACC YES; Urine Blood Large (3+) (Negative); Urine Ketones Trace mg/dL (Negative); Urine Protein 30 (1+) mg/dL (Neg-Trace)
[2023-08-30 12:07] LABS: MRSA Nasal PCR NEGATIVE (Negative); SA Nasal PCR NEGATIVE (Negative)
[2023-08-30 12:19] LABS: Bacteria Urine None Seen (None Seen); Hyaline Casts Urine 0-2 /LPF (0-2); RBC Urine >20 /HPF (0-2); Squamous Epithelial Cell Urine 0-2 /HPF (0-2); UACC Culture Trigger YES
--- NOTE | 2023-08-30 12:22 | PC.NURSE ---
ASSUMED CARE OF PT AT 1100H. DENIES ANY PAIN AT THIS TIME, STATES HIS BREATHING EFFORT IS AT BASELINE, SPEAKING IN FULL SENTENCES, SKIN PWD. CURRENTLY NOT REQUIRING ANY ADDTL SUPPLEMENTAL O2, AT 2L WHICH IS HIS BASELINE. MILD RHONCHI IN LOWER LOBES BILATERALLY. VS WNL. PIV POSITIONAL, SECOND ONE PLACED, #22 IN LAC. ABX RUNNING. AWAITING ADMISSION INPT. CHANGED TO HOSPITAL ATTIRE. URINE SPECIMEN SENT.
--- NOTE | 2023-08-30 14:54 | PHA.MEDREC ---
Pharmacy Consult ? Medication Reconciliation Pharmacy has completed the medication reconciliation Called patient's pharmacy, [facility], and HCP. HCP is unaware of patient's exact meds, patient is poor historian, and [facility] sent med list from their records. Per patient's pharmacy, the patient was delivered travoprost eye drops, but neither the HCP or [facility] service know of the medication. Patient is no longer on Coreg 6.25 mg BID per pharmacy and only taking the 3.125 mg BID. Per HCP, the patient had one of the diuretics discontinued, but does not know the name. According to VNA's list, furosemide is the only current diuretic that the patient is using. [place] confirmed by both [facility] and HCP. Final med rec reflects list sent from [facility]..
[2023-08-30] MEDS: 0.9 % Sodium Chloride Flush 3 ML SYRINGE IVFLUSH ×2 (15:17→20:51)
[2023-08-30] MEDS: Albuterol/Iprat 2.5/0.5MG 3 ML AMPUL.NEB INHALE ×2 (15:23→19:37)
[2023-08-30 16:16] LABS: Glucose, Whole Blood 128 mg/dL (60-115)
[2023-08-30 19:52] LABS: Glucose, Whole Blood 186 mg/dL (60-115)
[2023-08-30] MEDS: Insulin Lispro 100 UNIT/ML 3 ML VIAL SUBCUT (20:46)
[2023-08-30] MEDS: Apixaban 5 MG TABLET PO (20:46)
[2023-08-30] MEDS: methylPREDNISolone Sod Succ 40 MG/ML VIAL IVPUSH (20:46)
[2023-08-30] MEDS: Doxycycline Monohydrate 100 MG CAPSULE PO (20:46)
[2023-08-30] MEDS: carvediloL 3.125 MG TABLET PO (20:53)
--- NOTE | 2023-08-30 21:00 | PC.NURSE ---
This RN assumed care at 1900, Pt AOx3, CROW, speech is appropriate for patient. Pt is on 2L at baseline, respirations even and unlabored, expiratory/inspiratory wheezing noted on auscultation. pt has a productive cough with green sputum. BSx4, no pain with palpation. Pt is on contact precautions for VRE, & ESBL. Pt ambulates with assist & walker. Pt is resting quietly wiht no apparent distress, call yin within reach.
[2023-08-31] VITALS (10 sets, daily range): BP systolic 130–147; BP diastolic 62–71; PULSE 68–83; RESP 12–24; TEMP 36.1–36.3; O2SAT 93–98; BMI 22.2
--- NOTE | 2023-08-31 01:31 | PC.NURSE ---
Pt reporting increased SOB, wheezing noted, respiratory called for treatment
[2023-08-31] MEDS: Albuterol/Iprat 2.5/0.5MG 3 ML AMPUL.NEB INHALE ×5 (01:48→19:46)
[2023-08-31] MEDS: Omeprazole 20 MG CAPSULE.DR PO (05:38)
[2023-08-31 07:40] LABS: Glucose, Whole Blood 113 mg/dL (60-115)
[2023-08-31] MEDS: Tamsulosin HCL 0.4 MG CAPSULE PO (08:13)
[2023-08-31] MEDS: Furosemide 20 MG TABLET PO (08:13)
[2023-08-31] MEDS: methylPREDNISolone Sod Succ 40 MG/ML VIAL IVPUSH ×3 (08:13→17:14)
[2023-08-31] MEDS: Pravastatin Sodium 10 MG TABLET PO (08:13)
[2023-08-31] MEDS: Finasteride 5 MG TABLET PO (08:13)
[2023-08-31] MEDS: Potassium Chloride ER 10 MEQ TABLET.ER PO (08:13)
[2023-08-31] MEDS: carvediloL 3.125 MG TABLET PO ×2 (08:13→20:24)
[2023-08-31] MEDS: Apixaban 5 MG TABLET PO ×2 (08:13→20:24)
[2023-08-31] MEDS: 0.9 % Sodium Chloride Flush 3 ML SYRINGE IVFLUSH ×3 (08:14→20:24)
[2023-08-31] MEDS: Doxycycline Monohydrate 100 MG CAPSULE PO ×2 (08:14→20:24)
[2023-08-31 11:47] LABS: Glucose, Whole Blood 122 mg/dL (60-115)
--- NOTE | 2023-08-31 13:13 | P.PNIM_ITS ---
Subjective Subjective Date of Service: 08/31/23 Interval History: No acute issues overnight. Breathing somewhat improved per patient Review of Systems Denies chest pain Admits shortness of breath however improved Denies nausea vomiting diarrhea Denies fever chills Physical Exam 2 Vital Signs: Vital Signs: Last Vital Signs Temp 97.4 F 08/31/23 07:33 Pulse 68 08/31/23 11:29 Resp 18 08/31/23 11:29 BP 132/71 08/31/23 08:13 Pulse Ox 96 08/31/23 07:33 O2 Del Method Nasal Cannula 08/31/23 07:33 O2 Flow Rate 2 08/31/23 07:33 Oxygen Flow Rate 2 08/30/23 10:32 BMI result Body Mass Index 19.0 Const: Other: Awake alert no acute distress Resp: Other: Diminished at bases with scattered expiratory wheezes Cardio: Other: No S4; positive S1-S2; no S3 murmurs rubs or gallops GI: Other: Soft nontender nondistended normoactive bowel sounds Extrem: Other: No edema bilaterally Objective Data Active Medications Acetaminophen (Acetaminophen 325 Mg Tablet) 650 mg PO Q6H PRN PRN Reason: Pain, Mild (Pain Scale 1-3), fever or headache Albuterol Sulfate (Albuterol Sulfate 90 Mcg 8 Gm Inhaler) 2 puff INHALE Q4H PRN PRN Reason: wheezing Albuterol/Ipratropium (Albuterol/Iprat 2.5/0.5mg 3 Ml Ampul.Neb) 3 ml INHALE RQ4H WHILE AWAKE [facility] Last Admin: 08/31/23 11:28 Dose: 3 ml Documented By: SHARON Apixaban (Apixaban 5 Mg Tablet) 5 mg PO BID [facility] Last Admin: 08/31/23 08:13 Dose: 5 mg Documented By: BEST Calcium Carbonate (Calcium Carbonate 750 Mg Tab.Chew) 750 mg PO Q4H PRN PRN Reason: Heartburn Carvedilol (Carvedilol 3.125 Mg Tablet) 3.125 mg PO BID [facility]; Protocol Last Admin: 08/31/23 08:13 Dose: 3.125 mg Documented By: BEST Doxycycline Monohydrate (Doxycycline Monohydrate 100 Mg Capsule) 100 mg PO Q12H [facility] Last Admin: 08/31/23 08:14 Dose: 100 mg Documented By: BEST Finasteride (Finasteride 5 Mg Tablet) 5 mg PO DAILY [facility] Last Admin: 08/31/23 08:13 Dose: 5 mg Documented By: BEST Furosemide (Furosemide 20 Mg Tablet) 20 mg PO DAILY [facility]; Protocol Last Admin: 08/31/23 08:13 Dose: 20 mg Documented By: BEST Glucose (Glucose Gel 15 Gm Gel..Gram.) 15 gm PO Q15M PRN; Protocol PRN Reason: per Hypoglycemia Standing Ord. Dextrose (D10) 250 mls @ 750 mls/hr IV Q15M PRN; Protocol PRN Reason: per Hypoglycemia Standing Ord. Insulin Human Lispro (Insulin Lispro 100 Unit/Ml 3 Ml Vial) 0 unit SUBCUT QIDACHS [facility]; Protocol Last Admin: 08/31/23 11:43 Dose: Not Given Documented By: FADIA Non-Admin Reason: No Insulin Coverage Magnesium Hydroxide (Milk Of Magnesia 30 Ml Oral.Susp) 30 ml PO DAILY PRN PRN Reason: Constipation Melatonin (Melatonin 3 Mg Tablet) 6 mg PO BEDTIME PRN PRN Reason: Insomnia Methylprednisolone Sodium Succinate (Methylprednisolone Sod Succ 40 Mg/Ml Vial) 40 mg IVPUSH Q6H [facility] Last Admin: 08/31/23 12:10 Dose: 40 mg Documented By: BEST Omeprazole (Omeprazole 20 Mg Capsule.Dr) 20 mg PO DAILY@0630 [facility] Last Admin: 08/31/23 05:38 Dose: 20 mg Documented By: GILSON Potassium Chloride (Potassium Chloride Er 10 Meq Tablet.Er) 10 meq PO DAILY [facility] Last Admin: 08/31/23 08:13 Dose: 10 meq Documented By: BEST Pravastatin Sodium (Pravastatin Sodium 10 Mg Tablet) 10 mg PO DAILY [facility] Last Admin: 08/31/23 08:13 Dose: 10 mg Documented By: BEST Sodium Chloride (0.9 % Sodium Chloride Flush 3 Ml Syringe) 3 ml IVFLUSH QSHIFT [facility] Last Admin: 08/31/23 08:14 Dose: 3 ml Documented By: BEST Tamsulosin HCl (Tamsulosin Hcl 0.4 Mg Capsule) 0.4 mg PO DAILY [facility] Last Admin: 08/31/23 08:13 Dose: 0.4 mg Documented By: BEST Labs 08/30/23 08:36 08/30/23 08:36 Labs: Laboratory Results - last 24 hr 08/30/23 08/30/23 08/31/23 16:11 19:47 07:34 POC Glucose 128 H 186 H 113 08/31/23 11:43 POC Glucose 122 H Microbiology Microbiology Results: Microbiology 08/30/23 Unknown Urine Culture - Preliminary Urine clean catch - Urine swanson top Gram negative dana 08/30/23 08:40 Blood Culture - Preliminary Blood - Venous No growth after 24 hours. 08/30/23 08:36 Blood Culture - Preliminary Blood - Venous No growth after 24 hours. 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 Pt will be admitted to the hospital for treatment and further evaluation of acute on chronic hypoxic respiratory failure in the setting of acute COPD exa 1.Acute on chronic hypoxic respiratory failure in the setting of COPD exacerbation -increase Solu-Medrol to 40 mg IV q.6 hours -continue doxycycline b.i.d. -titrate O2 as tolerated 2.Nonischemic cardiomyopathy -stable well compensated -carvedilol held due to relative hypotension; add back when appropriate 3.HFrEF -no acute issues at present -bumetanide when appropriate 4.Paroxysmal AFib -acceptable rate control on current therapies -continue Eliquis 5.Rpa-pkymfqk-maryzqtoe diabetes type 2 -restart metformin upon discharge -lispro correctional scale Full Code Eliquis Patient will require ongoing hospitalization for IV steroids to treat acute hypoxic respiratory failure Quality Stroke Does the patient have a stroke diagnosis?: No VTE Prior VTE?: No VTE Risk Level:: Medical - moderate - high VTE Device Contraindication: Treatment Not Indicated VTE Drug Contraindication: N/A - Med Ordered
--- NOTE | 2023-08-31 14:07 | MHC.CLN ---
NUTRITION INCREASE DIET KCALS TO DIABETIC 2200. SIGNIFICANT WEIGHT LOSS X 6 MONTHS, -14%. REPORTS THAT DOES NOT EAT WELL AT HOME. CONFIRMED HEIGHT=5'2 . QUALIFIES MODERATELY MALNOURISHED IN THE CONTEXT OF CHRONIC ILLNESS. FOLLOW FOR INTAKE AND WEIGHT. SEE CLINICAL NUTRITION ASSESSMENT 08/31/23.
[2023-08-31 16:29] LABS: Glucose, Whole Blood 132 mg/dL (60-115)
[2023-08-31 19:37] LABS: Glucose, Whole Blood 191 mg/dL (60-115)
[2023-08-31] MEDS: Insulin Lispro 100 UNIT/ML 3 ML VIAL SUBCUT (20:24)
[2023-09-01] VITALS (9 sets, daily range): BP systolic 126–144; BP diastolic 60–70; PULSE 65–82; RESP 13–20; TEMP 36.2–36.5; O2SAT 94–99
[2023-09-01] MEDS: methylPREDNISolone Sod Succ 40 MG/ML VIAL IVPUSH ×5 (00:04→23:38)
[2023-09-01] MEDS: Omeprazole 20 MG CAPSULE.DR PO (06:06)
[2023-09-01 07:03] LABS: Basophils Percent Auto 0.1 % (0-2); Hematocrit 30.4 % (42.0-52.0); Hemoglobin 9.8 g/dl (14.0-18.0); Imm Gran Abs Auto 0.06 X10*3/uL (0.00-0.03); Imm Gran Pct Auto 0.5 % (0.0-0.4); Lymphocytes Absolute Auto 0.4 X10*3/uL (1.2-4.9); Lymphocytes Percent Auto 3.9 % (20-40); MANUAL DIFF FLAG SCAN; Mean Corpuscular HGB Conc 32.2 g/dl (31.0-36.0); Mean Corpuscular Hemoglobin 27.1 pg (27.0-33.0); Mean Corpuscular Volume 84.2 fL (80.0-98.0); Mean Platelet Volume 9.6 fL (9.4-12.4); Monocytes Absolute Auto 0.3 X10*3/uL (0.1-1.2); Monocytes Percent Auto 2.4 % (2-11); Neutrophils Absolute Auto 10.3 x10*3/uL (2.0-8.3); Neutrophils Percent Auto 93.1 % (45-73); Platelet Count 298 X10*3/uL (160-400); Red Blood Count 3.61 X10*6/uL (4.60-5.80); Red Cell Distribution Width 16.1 % (11.0-16.0); SCAN SMEAR FLAG 1
[2023-09-01 07:26] LABS: Glucose, Whole Blood 141 mg/dL (60-115)
[2023-09-01 07:34] LABS: SLIDE REVIEW VERIFIED
[2023-09-01 07:45] LABS: Alanine Aminotransferase 9 U/L (0-40); Albumin Level 3.1 g/dL (3.5-5.0); Alkaline Phosphatase 57 U/L (39-117); Anion Gap 11 (12-20); Aspartate Amino Transferase 9 U/L (5-37); Bilirubin Total 0.2 mg/dL (0.0-1.0); Blood Urea Nitrogen 16 mg/dL (9-16); Calcium 8.7 mg/dL (8.4-10.2); Carbon Dioxide 26 mmol/L (22-29); Chloride 102 mmol/L (96-108); Creatinine Clr Calc Pharmacy 68.8; Estimated Glomerular Filt Rate > 60; Glucose Fasting 148 mg/dL (60-99); Potassium 4.2 mmol/L (3.3-5.1); Sodium 135 mmol/L (135-145); Total Protein 6.8 g/dL (6.5-8.0)
[2023-09-01] MEDS: Doxycycline Monohydrate 100 MG CAPSULE PO ×2 (08:22→20:30)
[2023-09-01] MEDS: carvediloL 3.125 MG TABLET PO ×2 (08:22→20:30)
[2023-09-01] MEDS: Tamsulosin HCL 0.4 MG CAPSULE PO (08:22)
[2023-09-01] MEDS: Apixaban 5 MG TABLET PO ×2 (08:22→20:30)
[2023-09-01] MEDS: Furosemide 20 MG TABLET PO (08:22)
[2023-09-01] MEDS: Pravastatin Sodium 10 MG TABLET PO (08:23)
[2023-09-01] MEDS: 0.9 % Sodium Chloride Flush 3 ML SYRINGE IVFLUSH ×2 (08:23→20:31)
[2023-09-01] MEDS: Potassium Chloride ER 10 MEQ TABLET.ER PO (08:23)
[2023-09-01] MEDS: Finasteride 5 MG TABLET PO (08:23)
[2023-09-01 08:34] LABS: Ammonia 38 umol/L (13-55)
[2023-09-01] MEDS: Albuterol/Iprat 2.5/0.5MG 3 ML AMPUL.NEB INHALE ×3 (11:09→19:09)
[2023-09-01 11:40] LABS: Glucose, Whole Blood 152 mg/dL (60-115)
[2023-09-01] MEDS: Insulin Lispro 100 UNIT/ML 3 ML VIAL SUBCUT ×2 (11:47→20:31)
--- NOTE | 2023-09-01 14:25 | P.PNIM_ITS ---
Subjective Subjective Date of Service: 09/01/23 Interval History: Still describes being short of breath with minimal exertion Review of Systems Denies chest pain Admits shortness of breath however improved Denies nausea vomiting diarrhea Denies fever chills Physical Exam 2 Vital Signs: Vital Signs: Last Vital Signs Temp 97.6 F 09/01/23 07:26 Pulse 68 09/01/23 11:10 Resp 13 09/01/23 11:10 BP 126/60 09/01/23 08:22 Pulse Ox 96 09/01/23 07:26 O2 Del Method Nasal Cannula 09/01/23 07:26 O2 Flow Rate 2 09/01/23 07:26 Oxygen Flow Rate 2 08/30/23 10:32 BMI result Body Mass Index 22.2 Const: Other: Awake alert no acute distress Resp: Other: Diminished at bases with scattered expiratory wheezes Cardio: Other: No S4; positive S1-S2; no S3 murmurs rubs or gallops GI: Other: Soft nontender nondistended normoactive bowel sounds Extrem: Other: No edema bilaterally Objective Data Active Medications Acetaminophen (Acetaminophen 325 Mg Tablet) 650 mg PO Q6H PRN PRN Reason: Pain, Mild (Pain Scale 1-3), fever or headache Albuterol Sulfate (Albuterol Sulfate 90 Mcg 8 Gm Inhaler) 2 puff INHALE Q4H PRN PRN Reason: wheezing Albuterol/Ipratropium (Albuterol/Iprat 2.5/0.5mg 3 Ml Ampul.Neb) 3 ml INHALE RQ4H WHILE AWAKE [facility] Last Admin: 09/01/23 11:09 Dose: 3 ml Documented By: CECILIA Apixaban (Apixaban 5 Mg Tablet) 5 mg PO BID [facility] Last Admin: 09/01/23 08:22 Dose: 5 mg Documented By: AYSE Calcium Carbonate (Calcium Carbonate 750 Mg Tab.Chew) 750 mg PO Q4H PRN PRN Reason: Heartburn Carvedilol (Carvedilol 3.125 Mg Tablet) 3.125 mg PO BID [facility]; Protocol Last Admin: 09/01/23 08:22 Dose: 3.125 mg Documented By: AYSE Doxycycline Monohydrate (Doxycycline Monohydrate 100 Mg Capsule) 100 mg PO Q12H [facility] Last Admin: 09/01/23 08:22 Dose: 100 mg Documented By: AYSE Finasteride (Finasteride 5 Mg Tablet) 5 mg PO DAILY [facility] Last Admin: 09/01/23 08:23 Dose: 5 mg Documented By: AYSE Furosemide (Furosemide 20 Mg Tablet) 20 mg PO DAILY [facility]; Protocol Last Admin: 09/01/23 08:22 Dose: 20 mg Documented By: AYSE Glucose (Glucose Gel 15 Gm Gel..Gram.) 15 gm PO Q15M PRN; Protocol PRN Reason: per Hypoglycemia Standing Ord. Dextrose (D10) 250 mls @ 750 mls/hr IV Q15M PRN; Protocol PRN Reason: per Hypoglycemia Standing Ord. Insulin Human Lispro (Insulin Lispro 100 Unit/Ml 3 Ml Vial) 0 unit SUBCUT QIDACHS [facility]; Protocol Last Admin: 09/01/23 11:47 Dose: 2 unit Documented By: AYSE Magnesium Hydroxide (Milk Of Magnesia 30 Ml Oral.Susp) 30 ml PO DAILY PRN PRN Reason: Constipation Melatonin (Melatonin 3 Mg Tablet) 6 mg PO BEDTIME PRN PRN Reason: Insomnia Methylprednisolone Sodium Succinate (Methylprednisolone Sod Succ 40 Mg/Ml Vial) 40 mg IVPUSH Q6H [facility] Last Admin: 09/01/23 11:47 Dose: 40 mg Documented By: AYSE Omeprazole (Omeprazole 20 Mg Capsule.Dr) 20 mg PO DAILY@0630 [facility] Last Admin: 09/01/23 06:06 Dose: 20 mg Documented By: LESA Potassium Chloride (Potassium Chloride Er 10 Meq Tablet.Er) 10 meq PO DAILY [facility] Last Admin: 09/01/23 08:23 Dose: 10 meq Documented By: AYSE Pravastatin Sodium (Pravastatin Sodium 10 Mg Tablet) 10 mg PO DAILY [facility] Last Admin: 09/01/23 08:23 Dose: 10 mg Documented By: AYSE Sodium Chloride (0.9 % Sodium Chloride Flush 3 Ml Syringe) 3 ml IVFLUSH QSHIFT [facility] Last Admin: 09/01/23 08:23 Dose: 3 ml Documented By: AYSE Tamsulosin HCl (Tamsulosin Hcl 0.4 Mg Capsule) 0.4 mg PO DAILY [facility] Last Admin: 09/01/23 08:22 Dose: 0.4 mg Documented By: AYSE Labs 09/01/23 05:44 09/01/23 05:44 Labs: Laboratory Results - last 24 hr 08/31/23 08/31/23 09/01/23 16:25 19:30 05:44 MCV 84.2 MCH 27.1 MCHC 32.2 RDW 16.1 H Plt Count 298 MPV 9.6 Immature Gran % (Auto) 0.5 H Neut % (Auto) 93.1 H Lymph % (Auto) 3.9 L Clare % (Auto) 2.4 Eos % (Auto) 0.0 Baso % (Auto) 0.1 Lymph # (Auto) 0.4 L Clare # (Auto) 0.3 Eos # (Auto) 0.0 Baso # (Auto) 0.0 Abs Immat Gran (auto) 0.06 H Absolute Neuts (auto) 10.3 H Absolute Nucleated RBC 0.000 Nucleated RBC % (auto) 0.0 Smear Tech's Comments VERIFIED Anion Gap 11 L Estim Creat Clear Calc 68.8 Estimated GFR > 60 POC Glucose 132 H 191 H Fasting Glucose 148 H Calcium 8.7 Total Bilirubin 0.2 AST 9 ALT 9 Alkaline Phosphatase 57 Ammonia Total Protein 6.8 Albumin 3.1 L 09/01/23 09/01/23 09/01/23 07:23 08:14 11:34 MCV MCH MCHC RDW Plt Count MPV Immature Gran % (Auto) Neut % (Auto) Lymph % (Auto) Clare % (Auto) Eos % (Auto) Baso % (Auto) Lymph # (Auto) Clare # (Auto) Eos # (Auto) Baso # (Auto) Abs Immat Gran (auto) Absolute Neuts (auto) Absolute Nucleated RBC Nucleated RBC % (auto) Smear Tech's Comments Anion Gap Estim Creat Clear Calc Estimated GFR POC Glucose 141 H 152 H Fasting Glucose Calcium Total Bilirubin AST ALT Alkaline Phosphatase Ammonia 38 Total Protein Albumin Microbiology Microbiology Results: Microbiology 08/30/23 08:40 Blood Culture - Preliminary Blood - Venous No growth after 48 hours. 08/30/23 08:36 Blood Culture - Preliminary Blood - Venous No growth after 48 hours. 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 Pt will be admitted to the hospital for treatment and further evaluation of acute on chronic hypoxic respiratory failure in the setting of acute COPD exa 1.Acute on chronic hypoxic respiratory failure in the setting of COPD exacerbation -Solu-Medrol to 40 mg IV q.6 hours with good response -continue doxycycline b.i.d.(2) -titrate O2 as tolerated 2.Nonischemic cardiomyopathy -stable well compensated -carvedilol held due to relative hypotension; add back when appropriate 3.HFrEF -no acute issues at present -bumetanide when appropriate 4.Paroxysmal AFib -acceptable rate control on current therapies -continue Eliquis 5.Arm-dwtursl-bnpjgfdsr diabetes type 2 -restart metformin upon discharge -lispro correctional scale Full Code Eliquis Patient will require ongoing hospitalization for IV steroids to treat acute hypoxic respiratory failure Quality Stroke Does the patient have a stroke diagnosis?: No VTE Prior VTE?: No VTE Risk Level:: Medical - moderate - high VTE Device Contraindication: Treatment Not Indicated VTE Drug Contraindication: N/A - Med Ordered
[2023-09-01 16:14] LABS: Glucose, Whole Blood 129 mg/dL (60-115)
[2023-09-01 20:18] LABS: Glucose, Whole Blood 223 mg/dL (60-115)
[2023-09-02] VITALS (13 sets, daily range): BP systolic 133–145; BP diastolic 63–83; PULSE 58–84; RESP 15–18; TEMP 36.1–36.8; O2SAT 93–100
[2023-09-02] MEDS: guaiFENesin DM 600/30 1 TAB TAB.ER.12H 2 TAB PO ×2 (01:29→19:24)
[2023-09-02] MEDS: Omeprazole 20 MG CAPSULE.DR PO (05:32)
[2023-09-02] MEDS: methylPREDNISolone Sod Succ 40 MG/ML VIAL IVPUSH ×3 (05:32→19:19)
[2023-09-02] MEDS: Albuterol/Iprat 2.5/0.5MG 3 ML AMPUL.NEB INHALE ×4 (07:05→20:01)
[2023-09-02 07:11] LABS: Glucose, Whole Blood 148 mg/dL (60-115)
[2023-09-02] MEDS: 0.9 % Sodium Chloride Flush 3 ML SYRINGE IVFLUSH ×2 (07:56→19:19)
[2023-09-02] MEDS: carvediloL 3.125 MG TABLET PO (07:58)
[2023-09-02] MEDS: Doxycycline Monohydrate 100 MG CAPSULE PO ×2 (07:58→20:11)
[2023-09-02] MEDS: Tamsulosin HCL 0.4 MG CAPSULE PO (07:58)
[2023-09-02] MEDS: Apixaban 5 MG TABLET PO ×2 (07:59→20:11)
[2023-09-02] MEDS: Pravastatin Sodium 10 MG TABLET PO (07:59)
[2023-09-02] MEDS: Furosemide 20 MG TABLET PO (07:59)
[2023-09-02] MEDS: Potassium Chloride ER 10 MEQ TABLET.ER PO (07:59)
[2023-09-02] MEDS: Finasteride 5 MG TABLET PO (07:59)
[2023-09-02 11:06] LABS: Glucose, Whole Blood 335 mg/dL (60-115)
--- NOTE | 2023-09-02 11:17 | HO.PM.IMPN ---
Subjective Subjective Date of Service: 09/02/23 Interval History: Remains short of breath with minimal exertion. Somewhat better by his account Review of Systems Denies chest pain Admits shortness of breath however improved Denies nausea vomiting diarrhea Denies fever chills Physical Exam Vital Signs: Vital Signs: Last Vital Signs Temp 98.2 F 09/02/23 06:53 Pulse 84 09/02/23 10:54 Resp 18 09/02/23 10:54 BP 140/64 H 09/02/23 11:09 Pulse Ox 98 09/02/23 11:09 O2 Del Method Nasal Cannula 09/02/23 11:09 O2 Flow Rate 1 09/02/23 11:09 Oxygen Flow Rate 2 08/30/23 10:32 BMI result Body Mass Index 22.2 Const: Other: Awake alert no acute distress Resp: Other: Diminished at bases with scattered expiratory wheezes Cardio: Other: No S4; positive S1-S2; no S3 murmurs rubs or gallops GI: Other: Soft nontender nondistended normoactive bowel sounds Extrem: Other: No edema bilaterally Objective Data Active Medications Acetaminophen (Acetaminophen 325 Mg Tablet) 650 mg PO Q6H PRN PRN Reason: Pain, Mild (Pain Scale 1-3), fever or headache Albuterol Sulfate (Albuterol Sulfate 90 Mcg 8 Gm Inhaler) 2 puff INHALE Q4H PRN PRN Reason: wheezing Albuterol/Ipratropium (Albuterol/Iprat 2.5/0.5mg 3 Ml Ampul.Neb) 3 ml INHALE RQ4H WHILE AWAKE [facility] Last Admin: 09/02/23 10:54 Dose: 3 ml Documented By: CECILIA Apixaban (Apixaban 5 Mg Tablet) 5 mg PO BID [facility] Last Admin: 09/02/23 07:59 Dose: 5 mg Documented By: AYSE Calcium Carbonate (Calcium Carbonate 750 Mg Tab.Chew) 750 mg PO Q4H PRN PRN Reason: Heartburn Carvedilol (Carvedilol 3.125 Mg Tablet) 3.125 mg PO BID [facility]; Protocol Last Admin: 09/02/23 07:58 Dose: 3.125 mg Documented By: AYSE Doxycycline Monohydrate (Doxycycline Monohydrate 100 Mg Capsule) 100 mg PO Q12H [facility] Last Admin: 09/02/23 07:58 Dose: 100 mg Documented By: AYSE Finasteride (Finasteride 5 Mg Tablet) 5 mg PO DAILY [facility] Last Admin: 09/02/23 07:59 Dose: 5 mg Documented By: AYSE Furosemide (Furosemide 20 Mg Tablet) 20 mg PO DAILY [facility]; Protocol Last Admin: 09/02/23 07:59 Dose: 20 mg Documented By: AYSE Glucose (Glucose Gel 15 Gm Gel..Gram.) 15 gm PO Q15M PRN; Protocol PRN Reason: per Hypoglycemia Standing Ord. Guaifenesin/Dextromethorphan (Guaifenesin Dm 600/30 1 Tab Tab.Er.12h) 2 tab PO BID PRN PRN Reason: cough Last Admin: 09/02/23 01:29 Dose: 2 tab Documented By: TEE Dextrose (D10) 250 mls @ 750 mls/hr IV Q15M PRN; Protocol PRN Reason: per Hypoglycemia Standing Ord. Insulin Human Lispro (Insulin Lispro 100 Unit/Ml 3 Ml Vial) 0 unit SUBCUT QIDACHS [facility]; Protocol Last Admin: 09/02/23 07:20 Dose: Not Given Documented By: AYSE Non-Admin Reason: No Insulin Coverage Magnesium Hydroxide (Milk Of Magnesia 30 Ml Oral.Susp) 30 ml PO DAILY PRN PRN Reason: Constipation Melatonin (Melatonin 3 Mg Tablet) 6 mg PO BEDTIME PRN PRN Reason: Insomnia Methylprednisolone Sodium Succinate (Methylprednisolone Sod Succ 40 Mg/Ml Vial) 40 mg IVPUSH Q12H [facility] Last Admin: 09/02/23 07:56 Dose: 40 mg Documented By: AYSE Omeprazole (Omeprazole 20 Mg Capsule.Dr) 20 mg PO DAILY@0630 [facility] Last Admin: 09/02/23 05:32 Dose: 20 mg Documented By: KEENAN Potassium Chloride (Potassium Chloride Er 10 Meq Tablet.Er) 10 meq PO DAILY [facility] Last Admin: 09/02/23 07:59 Dose: 10 meq Documented By: AYSE Pravastatin Sodium (Pravastatin Sodium 10 Mg Tablet) 10 mg PO DAILY [facility] Last Admin: 09/02/23 07:59 Dose: 10 mg Documented By: AYSE Sodium Chloride (0.9 % Sodium Chloride Flush 3 Ml Syringe) 3 ml IVFLUSH QSHIFT [facility] Last Admin: 09/02/23 07:56 Dose: 3 ml Documented By: AYSE Tamsulosin HCl (Tamsulosin Hcl 0.4 Mg Capsule) 0.4 mg PO DAILY [facility] Last Admin: 09/02/23 07:58 Dose: 0.4 mg Documented By: AYSE Labs 09/01/23 05:44 09/01/23 05:44 Labs: Laboratory Results - last 24 hr 09/01/23 09/01/23 09/01/23 11:34 16:11 20:15 POC Glucose 152 H 129 H 223 H 09/02/23 09/02/23 07:06 11:02 POC Glucose 148 H 335 H Microbiology Microbiology Results: Microbiology 08/30/23 08:40 Blood Culture - Preliminary Blood - Venous No growth after 48 hours. 08/30/23 08:36 Blood Culture - Preliminary Blood - Venous No growth after 48 hours. 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 Pt will be admitted to the hospital for treatment and further evaluation of acute on chronic hypoxic respiratory failure in the setting of acute COPD exa 1.Acute on chronic hypoxic respiratory failure in the setting of COPD exacerbation -Solu-Medrol to 40 mg IV q.6 hours with good response -continue doxycycline b.i.d.(3) -titrate O2 as tolerated -physical therapy consult. Will likely need short-term rehab 2.Nonischemic cardiomyopathy -stable well compensated -increase carvedilol to 6.25 b.i.d. 3.HFrEF -no acute issues at present -Bumex 1 mg daily -follow renals and divalent 4.Paroxysmal AFib -acceptable rate control on current therapies -continue Eliquis 5.Jub-bowawre-negiojwet diabetes type 2 -restart metformin -lispro correctional scale Full Code Eliquis Patient will require ongoing hospitalization for IV steroids to treat acute hypoxic respiratory failure Quality Stroke Does the patient have a stroke diagnosis?: No VTE Prior VTE?: No VTE Risk Level:: Medical - moderate - high VTE Device Contraindication: Treatment Not Indicated VTE Drug Contraindication: N/A - Med Ordered
[2023-09-02] MEDS: Insulin Lispro 100 UNIT/ML 3 ML VIAL SUBCUT ×2 (12:09→20:57)
[2023-09-02 16:31] LABS: Glucose, Whole Blood 93 mg/dL (60-115)
[2023-09-02] MEDS: carvediloL 6.25 MG TABLET PO (20:11)
[2023-09-02 20:21] LABS: Glucose, Whole Blood 194 mg/dL (60-115)
[2023-09-03] VITALS (11 sets, daily range): BP systolic 90–136; BP diastolic 52–61; PULSE 65–101; RESP 17–24; TEMP 36.2–36.6; O2SAT 89–97
[2023-09-03] MEDS: Omeprazole 20 MG CAPSULE.DR PO (06:05)
[2023-09-03 06:15] LABS: MANUAL DIFF FLAG NO
[2023-09-03 06:28] LABS: Basophils Percent Auto 0.2 % (0-2); Hematocrit 33.7 % (42.0-52.0); Hemoglobin 10.6 g/dl (14.0-18.0); Imm Gran Abs Auto 0.09 X10*3/uL (0.00-0.03); Imm Gran Pct Auto 0.5 % (0.0-0.4); Lymphocytes Absolute Auto 0.5 X10*3/uL (1.2-4.9); Lymphocytes Percent Auto 3.1 % (20-40); Mean Corpuscular HGB Conc 31.5 g/dl (31.0-36.0); Mean Corpuscular Hemoglobin 26.1 pg (27.0-33.0); Mean Platelet Volume 9.7 fL (9.4-12.4); Monocytes Absolute Auto 1.2 X10*3/uL (0.1-1.2); Monocytes Percent Auto 7.5 % (2-11); Neutrophils Absolute Auto 14.6 x10*3/uL (2.0-8.3); Neutrophils Percent Auto 88.7 % (45-73); Platelet Count 272 X10*3/uL (160-400); Red Blood Count 4.06 X10*6/uL (4.60-5.80); Red Cell Distribution Width 16.1 % (11.0-16.0); White Blood Count 16.5 X10*3/uL (4.8-10.8)
[2023-09-03 06:34] LABS: Alanine Aminotransferase 17 U/L (0-40); Albumin Level 3.1 g/dL (3.5-5.0); Alkaline Phosphatase 59 U/L (39-117); Anion Gap 15 (12-20); Aspartate Amino Transferase 11 U/L (5-37); Bilirubin Total 0.3 mg/dL (0.0-1.0); Blood Urea Nitrogen 20 mg/dL (9-16); Calcium 8.6 mg/dL (8.4-10.2); Carbon Dioxide 31 mmol/L (22-29); Chloride 96 mmol/L (96-108); Creatinine Clr Calc Pharmacy 68.8; Estimated Glomerular Filt Rate > 60; Glucose Fasting 121 mg/dL (60-99); Potassium 4.1 mmol/L (3.3-5.1); Sodium 138 mmol/L (135-145); Total Protein 6.6 g/dL (6.5-8.0)
[2023-09-03 07:45] LABS: Glucose, Whole Blood 110 mg/dL (60-115)
[2023-09-03] MEDS: Bumetanide 1 MG TABLET PO (08:01)
[2023-09-03] MEDS: 0.9 % Sodium Chloride Flush 3 ML SYRINGE IVFLUSH ×3 (08:01→19:36)
[2023-09-03] MEDS: Doxycycline Monohydrate 100 MG CAPSULE PO ×2 (08:01→20:13)
[2023-09-03] MEDS: methylPREDNISolone Sod Succ 40 MG/ML VIAL IVPUSH ×2 (08:01→19:33)
[2023-09-03] MEDS: Tamsulosin HCL 0.4 MG CAPSULE PO (08:01)
[2023-09-03] MEDS: carvediloL 6.25 MG TABLET PO ×2 (08:02→20:13)
[2023-09-03] MEDS: Pravastatin Sodium 10 MG TABLET PO (08:02)
[2023-09-03] MEDS: Finasteride 5 MG TABLET PO (08:02)
[2023-09-03] MEDS: Apixaban 5 MG TABLET PO ×2 (08:02→20:13)
[2023-09-03] MEDS: Potassium Chloride ER 10 MEQ TABLET.ER PO (08:02)
[2023-09-03] MEDS: Albuterol/Iprat 2.5/0.5MG 3 ML AMPUL.NEB INHALE ×4 (08:12→20:39)
[2023-09-03 11:31] LABS: Glucose, Whole Blood 158 mg/dL (60-115)
[2023-09-03] MEDS: Insulin Lispro 100 UNIT/ML 3 ML VIAL SUBCUT ×2 (11:37→20:13)
--- NOTE | 2023-09-03 12:10 | P.PNIM_ITS ---
Subjective Subjective Date of Service: 09/03/23 Interval History: Respiratory status essentially back to baseline. Seen by Physical therapy who recommended short-term rehab. Patient agreement Review of Systems Denies chest pain Admits shortness of breath however improved Denies nausea vomiting diarrhea Denies fever chills Physical Exam 2 Vital Signs: Vital Signs: Last Vital Signs Temp 97.9 F 09/03/23 07:15 Pulse 98 09/03/23 12:04 Resp 18 09/03/23 12:04 BP 120/60 09/03/23 07:15 Pulse Ox 92 09/03/23 07:15 O2 Del Method Nasal Cannula 09/03/23 07:15 O2 Flow Rate 1.0 09/03/23 07:15 Oxygen Flow Rate 2 08/30/23 10:32 BMI result Body Mass Index 22.2 Const: Other: Awake alert no acute distress Resp: Other: Diminished at bases with scattered expiratory wheezes Cardio: Other: No S4; positive S1-S2; no S3 murmurs rubs or gallops GI: Other: Soft nontender nondistended normoactive bowel sounds Extrem: Other: No edema bilaterally Objective Data Active Medications Acetaminophen (Acetaminophen 325 Mg Tablet) 650 mg PO Q6H PRN PRN Reason: Pain, Mild (Pain Scale 1-3), fever or headache Albuterol Sulfate (Albuterol Sulfate 90 Mcg 8 Gm Inhaler) 2 puff INHALE Q4H PRN PRN Reason: wheezing Albuterol/Ipratropium (Albuterol/Iprat 2.5/0.5mg 3 Ml Ampul.Neb) 3 ml INHALE RQ4H WHILE AWAKE [facility] Last Admin: 09/03/23 12:03 Dose: 3 ml Documented By: SHARON Apixaban (Apixaban 5 Mg Tablet) 5 mg PO BID [facility] Last Admin: 09/03/23 08:02 Dose: 5 mg Documented By: HARIS Bumetanide (Bumetanide 1 Mg Tablet) 1 mg PO DAILY [facility]; Protocol Last Admin: 09/03/23 08:01 Dose: 1 mg Documented By: HARIS Calcium Carbonate (Calcium Carbonate 750 Mg Tab.Chew) 750 mg PO Q4H PRN PRN Reason: Heartburn Carvedilol (Carvedilol 6.25 Mg Tablet) 6.25 mg PO BID [facility]; Protocol Last Admin: 09/03/23 08:02 Dose: 6.25 mg Documented By: HARIS Doxycycline Monohydrate (Doxycycline Monohydrate 100 Mg Capsule) 100 mg PO Q12H [facility] Last Admin: 09/03/23 08:01 Dose: 100 mg Documented By: HARIS Finasteride (Finasteride 5 Mg Tablet) 5 mg PO DAILY [facility] Last Admin: 09/03/23 08:02 Dose: 5 mg Documented By: HARIS Glucose (Glucose Gel 15 Gm Gel..Gram.) 15 gm PO Q15M PRN; Protocol PRN Reason: per Hypoglycemia Standing Ord. Guaifenesin/Dextromethorphan (Guaifenesin Dm 600/30 1 Tab Tab.Er.12h) 2 tab PO BID PRN PRN Reason: cough Last Admin: 09/02/23 19:24 Dose: 2 tab Documented By: ISAURA Dextrose (D10) 250 mls @ 750 mls/hr IV Q15M PRN; Protocol PRN Reason: per Hypoglycemia Standing Ord. Insulin Human Lispro (Insulin Lispro 100 Unit/Ml 3 Ml Vial) 0 unit SUBCUT QIDACHS [facility]; Protocol Last Admin: 09/03/23 11:37 Dose: 2 unit Documented By: HARIS Magnesium Hydroxide (Milk Of Magnesia 30 Ml Oral.Susp) 30 ml PO DAILY PRN PRN Reason: Constipation Melatonin (Melatonin 3 Mg Tablet) 6 mg PO BEDTIME PRN PRN Reason: Insomnia Methylprednisolone Sodium Succinate (Methylprednisolone Sod Succ 40 Mg/Ml Vial) 40 mg IVPUSH Q12H [facility] Last Admin: 09/03/23 08:01 Dose: 40 mg Documented By: HARIS Omeprazole (Omeprazole 20 Mg Capsule.Dr) 20 mg PO DAILY@0630 [facility] Last Admin: 09/03/23 06:05 Dose: 20 mg Documented By: ISAURA Potassium Chloride (Potassium Chloride Er 10 Meq Tablet.Er) 10 meq PO DAILY [facility] Last Admin: 09/03/23 08:02 Dose: 10 meq Documented By: HARIS Pravastatin Sodium (Pravastatin Sodium 10 Mg Tablet) 10 mg PO DAILY [facility] Last Admin: 09/03/23 08:02 Dose: 10 mg Documented By: HARIS Sodium Chloride (0.9 % Sodium Chloride Flush 3 Ml Syringe) 3 ml IVFLUSH QSHIFT [facility] Last Admin: 09/03/23 08:01 Dose: 3 ml Documented By: HARIS Tamsulosin HCl (Tamsulosin Hcl 0.4 Mg Capsule) 0.4 mg PO DAILY [facility] Last Admin: 09/03/23 08:01 Dose: 0.4 mg Documented By: HARIS Labs 09/03/23 05:50 09/03/23 05:50 Labs: Laboratory Results - last 24 hr 09/02/23 09/02/23 09/03/23 16:27 20:17 05:50 MCV 83.0 MCH 26.1 L MCHC 31.5 RDW 16.1 H Plt Count 272 MPV 9.7 Immature Gran % (Auto) 0.5 H Neut % (Auto) 88.7 H Lymph % (Auto) 3.1 L [place] % (Auto) 7.5 Eos % (Auto) 0.0 Baso % (Auto) 0.2 Lymph # (Auto) 0.5 L [place] # (Auto) 1.2 Eos # (Auto) 0.0 Baso # (Auto) 0.0 Abs Immat Gran (auto) 0.09 H Absolute Neuts (auto) 14.6 H Absolute Nucleated RBC 0.000 Nucleated RBC % (auto) 0.0 Anion Gap 15 Estim Creat Clear Calc 68.8 Estimated GFR > 60 POC Glucose 93 194 H Fasting Glucose 121 H Calcium 8.6 Total Bilirubin 0.3 AST 11 ALT 17 Alkaline Phosphatase 59 Total Protein 6.6 Albumin 3.1 L 09/03/23 09/03/23 07:20 11:26 MCV MCH MCHC RDW Plt Count MPV Immature Gran % (Auto) Neut % (Auto) Lymph % (Auto) Larue % (Auto) Eos % (Auto) Baso % (Auto) Lymph # (Auto) [place] # (Auto) Eos # (Auto) Baso # (Auto) Abs Immat Gran (auto) Absolute Neuts (auto) Absolute Nucleated RBC Nucleated RBC % (auto) Anion Gap Estim Creat Clear Calc Estimated GFR POC Glucose 110 158 H Fasting Glucose Calcium Total Bilirubin AST ALT Alkaline Phosphatase Total Protein Albumin Assessment and Plan (1) Acute hypoxemic respiratory failure: Status: Acute (2) COPD (chronic obstructive pulmonary disease): Status: Acute Plan Pt is an 83-year-old Estonian-speaking male with a PMH significant for?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 Pt will be admitted to the hospital for treatment and further evaluation of acute on chronic hypoxic respiratory failure in the setting of acute COPD exa 1.Acute on chronic hypoxic respiratory failure in the setting of COPD exacerbation -Solu-Medrol to 40 mg IV q.6 hours with good response.. Switch to p.o. upon discharge -continue doxycycline b.i.d.(4).. Switch to p.o. on DC -titrate O2 as tolerated -physical therapy consult. Will likely need short-term rehab 2.Nonischemic cardiomyopathy -stable well compensated -increase carvedilol to 6.25 b.i.d. 3.HFrEF -no acute issues at present -Bumex 1 mg daily -follow renals and divalent 4.Paroxysmal AFib -acceptable rate control on current therapies -continue Eliquis 5.Pvg-bacnrsv-yqfgbhqhv diabetes type 2 -restart metformin -lispro correctional scale Full Code Eliquis Patient will require ongoing hospitalization for IV steroids to treat acute hypoxic respiratory failure Quality Stroke Does the patient have a stroke diagnosis?: No VTE Prior VTE?: No VTE Risk Level:: Medical - moderate - high VTE Device Contraindication: Treatment Not Indicated VTE Drug Contraindication: N/A - Med Ordered
--- NOTE | 2023-09-03 13:51 | MHC.CLN ---
F/U DIET= DIABETIC 2200 KCALS. INTAKE VARIABLE, 50-100%, WITH MOST MEALS 100%. FOLLOW FOR INTAKE AND WEIGHT.
--- NOTE | 2023-09-03 15:00 | MHC.CM.PN ---
pt will need str referrals made
[2023-09-03 15:54] LABS: Glucose, Whole Blood 117 mg/dL (60-115)
--- NOTE | 2023-09-03 18:26 | PC.NURSE ---
MD Tobin made aware pts BP low 95/57 and 90/50 manual, pt is asymptomatic. No new orders at this time.
[2023-09-03 19:46] LABS: Glucose, Whole Blood 199 mg/dL (60-115)
[2023-09-04 04:00] VITALS: BP 108/59; PULSE 63; RESP 16; TEMP 36.1; O2SAT 97
[2023-09-04] MEDS: Omeprazole 20 MG CAPSULE.DR PO (06:09)
[2023-09-04 07:10] VITALS: BP 109/59; PULSE 66; RESP 16; TEMP 36; O2SAT 96
[2023-09-04 07:19] LABS: Glucose, Whole Blood 162 mg/dL (60-115)
[2023-09-04] MEDS: methylPREDNISolone Sod Succ 40 MG/ML VIAL IVPUSH (07:39)
[2023-09-04] MEDS: Insulin Lispro 100 UNIT/ML 3 ML VIAL SUBCUT ×2 (07:39→12:23)
[2023-09-04] MEDS: 0.9 % Sodium Chloride Flush 3 ML SYRINGE IVFLUSH (07:39)
[2023-09-04 07:40] VITALS: BP 109/59; PULSE 66
[2023-09-04] MEDS: carvediloL 6.25 MG TABLET PO (07:40)
[2023-09-04 07:41] VITALS: BP 109/59
[2023-09-04] MEDS: Potassium Chloride ER 10 MEQ TABLET.ER PO (07:41)
[2023-09-04] MEDS: Pravastatin Sodium 10 MG TABLET PO (07:41)
[2023-09-04] MEDS: Bumetanide 1 MG TABLET PO (07:41)
[2023-09-04] MEDS: Doxycycline Monohydrate 100 MG CAPSULE PO (07:41)
[2023-09-04] MEDS: Apixaban 5 MG TABLET PO (07:41)
[2023-09-04] MEDS: Tamsulosin HCL 0.4 MG CAPSULE PO (07:41)
[2023-09-04] MEDS: Finasteride 5 MG TABLET PO (07:42)
[2023-09-04 08:01] VITALS: PULSE 66; RESP 16; O2SAT 94
[2023-09-04] MEDS: Albuterol/Iprat 2.5/0.5MG 3 ML AMPUL.NEB INHALE ×2 (08:01→11:17)
[2023-09-04 11:17] VITALS: PULSE 72; RESP 14; O2SAT 94
[2023-09-04 11:27] LABS: Glucose, Whole Blood 231 mg/dL (60-115)
--- NOTE | 2023-09-04 11:52 | P.CDIM_ITS ---
PROVIDER RESPONSE TEXT: To clarify, the appropriate diagnosis supported by the clinical indicators: Moderate Protein Calorie Malnutrition QUERY TEXT: PHYSICIAN'S DOCUMENTATION REQUEST Date of Query: 09/04/2023 10:03 AM EDT Patient Name: Yao Herman Admit Date: 08/30/2023 Dear Garrett Tobin, A review of the medical record indicates additional documentation may be needed. Please review below and update the documentation accordingly. Clinical Indicators: Height: ( ) 5'2 Weight: ( ) 55 kg BMI: ( ) 22.2 Other Clinical Notes Supporting Significance of the BMI per Clinical Nutrition Assessment 08/31/23: body fat mild depletion rib cage muscle mass mild depletion clavicle non-severe malnutrition in the context of chronic illness involuntary weight loss qualifies as moderately malnourished If possible, please provide an associated diagnosis related to the abnormal BMI, such as: Underweight Weight loss Cachexia Anorexia Moderate Protein Calorie Malnutrition Other (explain) Clinically unable to determine (explain) Thank you, Marisol Montiel RN Use of terms such as suspected, likely, concern for, or probable (associated with a specific diagnosi s that is being evaluated, monitored, or treated as if it exists) are acceptable and can be coded in the inpatient se tting, when documented at the time of discharge. Please use your independent medical judgment in providing your response. THIS QUERY IS PART OF THE PERMANENT MEDICAL RECORD
--- NOTE | 2023-09-04 12:27 | MHC.CM.PN ---
ref number received from [facility] [phone] hcp for pt prashant alexander notified of dc
--- NOTE | 2023-09-04 14:12 | PM.DS ---
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 Patient has a complicated recent pulmonary PMH and was treated on 06/30 with 3 weeks of IV meropenem for ESBL bacteremia secondary to pulmonary source with last dose 07/20/2023. Patient was re-hospitalized from 08/08-08/11 for acute hypoxic respiratory failure and sepsis secondary to acute COPD exacerbation with pneumonia. Was treated with vancomycin, cefepime, and Flagyl, and discharged to STR on Levaquin x7 days. Initially felt better after STR discharge for approximately one week, then had increasing shortness of breath and difficulty breathing, especially with any type of exertion. Cough has been productive yellow-greenish sputum. EMS apparently found patient in respiratory distress, satting in the mid 70s on home O2. Denies fever, chills. No lower leg edema. Denies chest pain/pressure, palpitations. No abdominal pain. In the ED pt was tachypneic up to 36, and tachycardic up to 100, satting at 98% on home 3L NC. Labs were largely unremarkable and around baseline for patient. Chronic leukocytosis of 13.6. Chronic normocytic anemia of H&H 10.8/35.1, around baseline. No significant electrolyte abnormalities. Renal function baseline. Lactic acid WNL. Hepatic function WNL. Troponin 4.2. BNP WNL at 32. Procalcitonin 0.05. MRSA screen pending. CXR showed no significant interval change from 08/11/2023, which showed severe cystic changes in the lungs and bronchiectasis, with innumerable areas of bronchial wall thickening and nodular opacities suggestive bronchopneumonia. EKG demonstrated normal sinus rhythm with right bundle branch block and left anterior fascicular block with T-wave inversions in V1 and V3, but no significant ST elevations or depressions. Pt was treated with DuoNebs, Solu-Medrol, cefepime, and azithromycin. Pt will be admitted to the hospital for treatment and further evaluation of acute on chronic hypoxic respiratory failure in the setting of acute COPD exacerbation. Hospital Course Patient admitted to general medical floor and started on IV pulse dose steroids and empiric doxycycline. Over the course of the next several days he gradually improved to the point where he is medically acceptable for discharge. He was seen in consultation by Physical therapy who recommended short-term rehab. At this point in time he will be discharged for same Time Attestation Discharge Coordination Time (in mins): 35 Quality: Safe Use of Opioids Does Pt have an Active Cancer Diagnosis on the Problem List?: No Quality: Stroke Does the patient have a stroke diagnosis?: No Physical Exam Vital Signs: Vital Signs: Last Vital Signs Temp 96.8 F 09/04/23 07:10 Pulse 72 09/04/23 11:17 Resp 14 09/04/23 11:17 BP 109/59 L 09/04/23 07:41 Pulse Ox 96 09/04/23 07:10 O2 Del Method Nasal Cannula 09/04/23 07:10 O2 Flow Rate 3 09/04/23 07:10 Oxygen Flow Rate 2 08/30/23 10:32 BMI result Body Mass Index 22.2 Const: Other: Awake alert no acute distress Resp: Other: Diminished at bases with scattered expiratory wheezes Cardio: Other: No S4; positive S1-S2; no S3 murmurs rubs or gallops GI: Other: Soft nontender nondistended normoactive bowel sounds Extrem: Other: No edema bilaterally DS: Data Data Completed and Pending Completed studies during hospitalization [Text1]: Procedures Insertion of Infusion Device into Left Brachial Vein, Percutaneous Approach (05/25/22) Insertion of Infusion Device into Right Brachial Vein, Percutaneous Approach (06/29/23) Insertion of Infusion Device into Right Cephalic Vein, Percutaneous Approach (12/07/21) Insertion of Infusion Device into Superior Vena Cava, Percutaneous Approach (12/07/21) Introduction of Remdesivir Anti-infective into Peripheral Vein, Percutaneous Approach, [employer] 5 (03/18/23) Ultrasonography of Superior Vena Cava, Guidance (12/07/21) Labs on day of discharge: Laboratory Results - last 24 hr 09/03/23 09/03/23 09/04/23 15:50 19:43 07:08 POC Glucose 117 H 199 H 162 H 09/04/23 11:23 POC Glucose 231 H Discharge Plan Discharge Anticipated Discharge Date/Time: 09/04/23 14:05 Patient Disposition: Xfer Inpatient Rehab Fac Discharge Diagnosis: COPD exacerbation Referrals: [facility] [Other] - 1 Week Olga North MD [Primary Care Provider] - 1 Week Discharge Medications: New carvedilol 6.25 mg Tablet 6.25 mg PO BID Qty: 60 0RF Protocol: Hold for SBP/HR < HOLD for SBP < : 90 HOLD for HR < : 60 doxycycline monohydrate 100 mg Capsule 100 mg PO Q12H Qty: 6 0RF bumetanide 1 mg Tablet 1 mg PO DAILY Qty: 30 0RF Protocol: Hold for SBP< HOLD for SBP < : 90 prednisone 20 mg tablet See Rx Instructions .Route .COMPLEX Qty: 18 0RF Rx Instructions: 20 mg orally; 3 tabs daily for 3 days, 2 tabs daily for 3 days, 1 tab daily for 3 days Continued (DME) walker [facility] [place] See Rx Instructions .Route Qty: 1 0RF Patient Comments: Pt states doesnot use Rx Instructions: with seat and wheels Eliquis 5 mg tablet 5 mg PO BID 90 Days Qty: 180 0RF (DME) FreeStyle Lite Strips Strip See Rx Instructions .Route Qty: 100 5RF Rx Instructions: test once daily (DME) straight cane See Rx Instructions .Route .MEDSUPPLY Qty: 1 0RF Rx Instructions: As directed (DME) blood-glucose meter [FreeStyle Lite Meter] Kit See Rx Instructions .Route Qty: 1 0RF Rx Instructions: test once daily (DME) commode Kit See Rx Instructions .Route Qty: 1 0RF Rx Instructions: As directed brimonidine-timolol [Combigan] 0.2-0.5 % Drops 1 drp OPHTHALMIC (EYE) BID acetaminophen [Acetaminophen Extra Strength] 500 mg Tablet 1,000 mg PO DAILY PRN (Reason: Pain) lovastatin 10 mg tablet 10 mg PO DAILY metformin 500 mg tablet 500 mg PO DAILY potassium chloride 10 mEq tablet extended release 10 meq PO DAILY ipratropium-albuterol 0.5 mg-3 mg(2.5 mg base)/3 mL solution for nebulization 3 ml inhalation QID PRN (Reason: for dyspnea) omeprazole 20 mg capsule,delayed release(DR/EC) 20 mg PO DAILY@0630 tamsulosin 0.4 mg capsule 0.4 mg PO DAILY (DME) lancets [FreeStyle Lancets] 28 gauge misc See Rx Instructions .Route Qty: 100 6RF Rx Instructions: Use 1 lancet once a day (DME) wheelchair See Rx Instructions .Route .MEDSUPPLY Qty: 1 0RF Rx Instructions: As directed albuterol sulfate [Ventolin HFA] 90 mcg/actuation HFA aerosol inhaler 2 puff INHALATION Q4H PRN (Reason: wheezing) 30 Days Qty: 18 2RF Anoro Ellipta 62.5-25 mcg/actuation blister with device 1 inh INHALATION DAILY 60 Days Qty: 60 3RF finasteride 5 mg tablet 5 mg PO DAILY Qty: 90 3RF Discontinued carvedilol 3.125 mg tablet 3.125 mg PO BID furosemide 20 mg tablet 20 mg PO DAILY Discharge Orders: Discharge Order (Routine); Ordered 09/04/23 Ordered By: Garrett Tobin Diet: Advance to usual diet Activity on Discharge: As tolerated Stand Alone Forms: Patient Portal Discharge page Print Language: Bermudian Care Plan Goals: Continue all medicines as ordered Health Concerns: Plan as per receiving facility Plan of Treatment: As per receiving facility Assessment: See discharge summary
--- NOTE | 2023-09-04 15:12 | PC.NURSE ---
Attempted to call nurse to nurse report to [facility] but unable,no answer at the nurses station when transferred
== END 2023-09-04 15:12 | DRG 190 ==
LOC: HO.ED 08:59 → HO.EDOVER 13:09 → HO.S3 14:00
PROVIDERS: Hospitalist; Admitting Provider Student in an Organized Health Care Education/Training Program; Emergency Provider Emergency Medicine; PCP Internal Medicine; Visit Provider Hospitalist
DX: J47.1 Bronchiectasis with (acute) exacerbation (principal); J96.21 Acute and chronic respiratory failure with hypoxia; I42.8 Other cardiomyopathies; I50.22 Chronic systolic (congestive) heart failure; E44.0 Moderate protein-calorie malnutrition; F17.210 Nicotine dependence, cigarettes, uncomplicated; N40.0 Benign prostatic hyperplasia without lower urinary tract symptoms; I48.0 Paroxysmal atrial fibrillation; Z99.81 Dependence on supplemental oxygen; I11.0 Hypertensive heart disease with heart failure; D64.9 Anemia, unspecified; Z20.822 Contact with and (suspected) exposure to COVID-19; Z68.22 Body mass index [BMI] 22.0-22.9, adult; Z71.6 Tobacco abuse counseling; Z87.440 Personal history of urinary (tract) infections; Z79.01 Long term (current) use of anticoagulants; Z79.84 Long term (current) use of oral hypoglycemic drugs; Z79.899 Other long term (current) drug therapy
CPT/HCPCS: 0241U; 36415; 71045; 71046; 80048; 80053; 80076; 81001; 81003; 82140; 82803; 82947; 83605; 83690; 83735; 83880; 84145; 84484; 85025; 87040; 87086; 87088; 87186; 87640; 87641; 93005; 94640; 97162; 99285; J0456; J0692; J2919

== ENCOUNTER → 2023-08-30 08:13 | Outpatient (BNV) | payer OTHER, SELFPAY | PROVIDERS: Admitting Provider Student in an Organized Health Care Education/Training Program; Emergency Provider Emergency Medicine; PCP Internal Medicine; Visit Provider Internal Medicine Cardiovascular Disease | DX: I45.2 Bifascicular block (principal) | CPT/HCPCS: 93010 ==

== ENCOUNTER → 2023-08-30 13:09 | Outpatient (BNV) | payer OTHER, SELFPAY | PROVIDERS: Admitting Provider Student in an Organized Health Care Education/Training Program; Emergency Provider Emergency Medicine; PCP Internal Medicine; Visit Provider Hospitalist | DX: J96.21 Acute and chronic respiratory failure with hypoxia (principal); J44.1 Chronic obstructive pulmonary disease with (acute) exacerbation | CPT/HCPCS: 99223; 99232; 99239 ==

== ENCOUNTER 2023-10-30 13:17 | Outpatient (AMB) | payer OTHER, SELFPAY ==
[2023-10-30 13:31] VITALS: BP 102/60; PULSE 104; O2SAT 98; BMI 17.3
--- NOTE | 2023-10-30 13:31 | MHC.OFFVIS ---
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 Custom Feed Mill Operator Name: Joselin Melissa Radha.L.Cinthia Allergies Penicillins [PENICILLINS] Allergy (Intermediate, Verified 08/30/23 08:15) PASSED OUT trazodone Allergy (Intermediate, Verified 08/30/23 08:15) tremors brimonidine [From Alphagan P] Allergy (Verified 08/30/23 08:15) Unknown diphenhydramine [From Benadryl] Allergy (Verified 08/30/23 08:15) Unknown HPI HPI Recurrent pneumonia: Details: 83-year-old gentleman with underlying end-stage COPD on 2 L of supplemental oxygen, bronchiectasis, prior recurrent ESBL infections including pneumonia and UTI, prior JESSA, systolic heart failure, CAD, AFib on Eliquis, returns to follow-up. Patient has had multiple recent admissions for both pulmonary and nonpulmonary recurrent infections with an ESBL organism. He complains of mild exacerbation at this time. [facility] Medical History (Updated 09/06/23 @ 00:02 by Lizzie Waldrop) COPD (chronic obstructive pulmonary disease) Acute hypoxemic respiratory failure Hearing loss Chronic hypoxic respiratory failure Bronchiectasis NICM (nonischemic cardiomyopathy) Swallowing problem 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 Kidney stone on left side Paroxysmal atrial fibrillation Congestive heart failure Acute and chronic respiratory failure BPH loc w urin obs/LUTS Urinary retention History of COVID-19 Chronic anticoagulation History of pneumothorax Diabetes Supplemental oxygen dependent Kidney stone on left side JESSA (mycobacterium avium-intracellulare) Bronchiectasis Glaucoma Pure hypercholesterolemia GERD (gastroesophageal reflux disease) History of MAC infection Essential hypertension Surgical History History of transurethral resection of bladder tumor (TURBT) History of cataract surgery History of left inguinal hernia repair History of bronchoscopy History of colonoscopy History of lumbar surgery History of cystoscopy Family History Father No problems noted. Mother Medical history unknown Sister Diabetes Daughter In good health Son In good health Brother No problems noted. 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 Housing: Apartment Housing Other:: Gianluca Mack Are you a primary child care centre manager to a significant other at home: No Do you presently have visiting nurse or other home services: Yes Alcohol intake: never Comment: 1:1 sitter in room Patient Tobacco Use Status: Current everyday Tobacco user Tobacco use type: Cigarette Cigarette Packs Per Day: 1 Cigarettes Per Day: 20.0 e-Cigarette/Vaping Use: Former Use Second Hand Smoke Exposure: No Advance Directives Date on File: 02/03/22 service: No Current occupational status: retired Cognitive needs: No Hearing needs: Yes Vision needs: Yes Review of Systems Const Denies daytime sleepiness, Denies excessive sweating, Denies fatigue, Denies fever(s), Denies lethargy, Denies malaise, Denies night sweats, Denies snoring and Denies weight loss Eyes Denies blurry vision and Denies itchy eyes ENT Denies nasal congestion, Denies post nasal drip, Denies sinus pain, Denies sinus pressure and Denies other ( Thrush) Card Denies chest pain, Denies pedal edema, Denies dyspnea, Denies orthopnea and Denies paroxysmal nocturnal dyspnea Resp Reports cough, Denies hemoptysis, Reports excessive phlegm production, Denies dyspnea, Denies snoring and Denies wheezing GI Denies abdominal pain and Denies heartburn Musc Denies myalgias, Denies arthralgias and Denies joint swelling Skin/Breast Denies rash Neuro Denies memory loss and Denies seizure-like activity Psych Denies abnormal sleep pattern, Denies anxiety and Denies memory loss Endo Denies excessive sweating, Denies fatigue and Denies heat intolerance José/Lymph Denies easy bruising Aller/Immun Denies itchy eyes, Denies seasonal rhinorrhea and Denies wheezing Physical Exam Vital Signs: Last Vital Signs Pulse 104 H 10/30/23 13:31 BP 102/60 10/30/23 13:31 Pulse Ox 98 10/30/23 13:31 Oxygen Delivery Method Nasal Cannula 10/30/23 13:31 Oxygen Flow Rate 3 10/30/23 13:31 BMI result Body Mass Index 17.3 Const General: no acute distress and alert Orientation/consciousness: Other orientation findings ( oriented) HEENT Head: Yes atraumatic Eyes General: appearance normal, both eyes and all related structures Sclerae: sclerae normal EOM: EOMs intact bilaterally Neck Neck: Yes supple Lymphatic: no lymphadenopathy noted Resp Effort & Inspection: normal respiratory effort and no use of accessory muscles Auscultation: clear to auscultation bilaterally Cardio Rate: tachycardic Rhythm: regular rhythm Heart sounds: no gallops, no murmurs and no rubs Skin General skin exam: other ( warm) Extrem General: No clubbing, No cyanosis and No edema Assessment & Plan Assessment & Plan (1) Emphysema with chronic bronchitis: Code(s): J44.9 - Chronic obstructive pulmonary disease, unspecified Category: Medical Plan: Baseline controlled on Anoro, duo nebs, and albuterol MDI. Continue current regimen. (2) Bronchiectasis: Code(s): J47.9 - Bronchiectasis, uncomplicated Category: Medical Plan: Now with an acute exacerbation. Will start on empiric antibiotics. Coding Level of Care Code Est Pt Level 4 (49407) Diagnoses Emphysema with chronic bronchitis J44.9 Bronchiectasis with acute exacerbation J47.9
== END 2023-10-30 14:14 | disposition home or self-care (01) ==
PROVIDERS: PCP Internal Medicine; Visit Provider Internal Medicine Pulmonary Disease
DX: J44.9 Chronic obstructive pulmonary disease, unspecified (principal); J47.9 Bronchiectasis, uncomplicated
CPT/HCPCS: 99214

== ENCOUNTER → 2023-10-30 13:17 | Outpatient (BNVA) | payer OTHER, SELFPAY | PROVIDERS: PCP Internal Medicine; Visit Provider Internal Medicine Pulmonary Disease | DX: J44.9 Chronic obstructive pulmonary disease, unspecified (principal); J47.9 Bronchiectasis, uncomplicated; Z99.81 Dependence on supplemental oxygen | CPT/HCPCS: 99212 ==

== ENCOUNTER 2023-12-04 12:32 | Emergency (ER) | payer OTHER, SELFPAY ==
--- NOTE | ~2023-12-04 | XR_ITS ---
EXAMINATION: XR CHEST 1 VIEW CLINICAL INFORMATION: Cough, shortness of breath, R/O pneumonia COMPARISON: Cough shortness of breath TECHNIQUE: Single portable frontal view. Tubes and lines: None Lungs and pleura: Redemonstration of diffuse interstitial opacification not significantly changed from prior exam. This has been previously evaluated with CT scan, cystic changes with infiltrating patchy infiltrates unchanged. Heart and mediastinum: The mediastinum is within normal limits.. Bones/soft tissue: Skeletal structures included are normal for patient's age. XR/XR chest 1V IMPRESSION: * Redemonstration of diffuse interstitial opacification with cystic changes and bronchiectasis/infiltrating patchy infiltrates unchanged. * No pleural effusion. Electronically signed by: Sunday Dixon MD 12/04/2023 04:49 PM EDT
[2023-12-04 12:55] VITALS: BP 102/62; BP 103/61; PULSE 89; PULSE 92; RESP 16; TEMP 36.6; O2SAT 100; O2SAT 97; BMI 19.6
[2023-12-04 12:59] VITALS: BP 102/62; PULSE 92; RESP 16; TEMP 36.6; O2SAT 97
--- NOTE | 2023-12-04 13:03 | PC.NURSE ---
Pt comes from home today via EMS where he has a visiting nurse. Concerns for hypotension. Pt is A&Ox3, mostly Maltese speaking, afebrile. VSS at this time. Skin is warm and dry Breaths and speech are slow, even, and unlabored. Pt c/o R shoulder pain with movement. No noted ROM deficit.
--- NOTE | 2023-12-04 15:38 | ED_ITS ---
HPI - General Adult General Chief complaint: General Medical Stated complaint: VYAS,LOW BP 101/61 PER EMS Time Seen by Provider: 12/04/23 15:37 Source: patient Mode of arrival: EMS Limitations: language barrier (Pashto speaking only, very hard of hearing, arabic linguist used) History of Present Illness ED Provider: Dr. 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 The patient states that he was feeling short of breath and he has a chronic cough which is nonproductive. He also states he was having right shoulder pain but otherwise has no complaints. He denied fever, chills, chest pain, nausea, vomiting, diarrhea, frequency, urgency, dysuria, myalgias arthralgias. He states that he has been eating and drinking well at home. He states he has been compliant with his medications. He lives at home with his . There were no family members with him at the time of my evaluation. Patient was hospitalized 08/30/2023 until 09/04/2023 for COPD exacerbation possibly secondary to a pulmonary source at that time he had blood pressures that ranged from 101/59 to 143/64. Related Data Home Medications ?Medication ?Instructions ?Recorded ?Confirmed lovastatin 10 mg tablet 10 mg PO DAILY 03/09/23 08/30/23 acetaminophen 500 mg tablet 1,000 mg PO DAILY PRN Pain 08/09/23 08/30/23 (Acetaminophen Extra Strength) brimonidine 0.2 %-timolol 0.5 % 1 drp ophthalmic (eye) BID 08/09/23 08/30/23 eye drops (Combigan) metformin 500 mg tablet 500 mg PO DAILY 08/30/23 08/30/23 omeprazole 20 mg capsule,delayed 20 mg PO DAILY@0630 08/30/23 08/30/23 release tamsulosin 0.4 mg capsule 0.4 mg PO DAILY 06/20/24 06/20/24 Previous Rx's ?Medication ?Instructions ?Recorded walker #1 ea 03/20/22 lancets 28 gauge (FreeStyle #100 ea 10/30/22 Lancets) apixaban 5 mg tablet (Eliquis) 5 mg PO BID 90 days #180 tabs 05/15/23 wheelchair #1 ea 06/20/23 blood sugar diagnostic (FreeStyle #100 ea 08/08/23 Lite Strips) straight cane #1 ea 08/08/23 blood-glucose meter (FreeStyle #1 ea 08/23/23 Lite Meter kit) finasteride 5 mg tablet 5 mg PO DAILY #90 tabs 08/27/23 Ventolin HFA 90 mcg/actuation 2 puff inhalation Q4H PRN wheezing 08/29/23 aerosol inhaler (albuterol sulfate) 30 days #18 grams commode #1 ea 08/29/23 umeclidinium 62.5 mcg-vilanterol 1 inh inhalation DAILY 60 days #60 08/29/23 25 mcg/actuation powdr for ea inhalation (Anoro Ellipta) bumetanide 1 mg tablet 1 mg PO DAILY #30 tabs 09/04/23 carvedilol 6.25 mg tablet 6.25 mg PO BID #60 tabs 09/04/23 doxycycline monohydrate 100 mg 100 mg PO Q12H #6 caps 09/04/23 capsule prednisone 20 mg tablet See Rx Instructions .Route 09/04/23 .COMPLEX #18 tabs ipratropium 0.5 mg-albuterol 3 mg 3 ml inhalation QID PRN for 09/07/23 (2.5 mg base)/3 mL nebulization dyspnea #180 mL soln moxifloxacin 400 mg tablet 400 mg PO DAILY 7 days #7 tabs 11/30/23 potassium chloride 10 mEq 10 meq PO DAILY 30 days #30 tabs 12/01/23 tablet,extended release Ensure #1 ea 12/03/23 Allergies Allergy/AdvReac Type Severity Reaction Status Date / Time Penicillins [PENICILLINS] Allergy Intermediate PASSED Verified 12/04/23 12:58 OUT trazodone Allergy Intermediate tremors Verified 12/04/23 12:58 brimonidine [From Alphagan P] Allergy Unknown Verified 12/04/23 12:58 diphenhydramine Allergy Unknown Verified 12/04/23 12:58 [From Benadryl] COUNTS INCLUDE 234 BEDS AT THE [facility] Past Medical History COUNTS INCLUDE 234 BEDS AT THE [facility] Narrative: Social history: He lives with his . He denies tobacco, alcohol and drug use Medical History (Updated 12/04/23 @ 20:03 by Junito Alvarado MD) COPD (chronic obstructive pulmonary disease) Acute hypoxemic respiratory failure Hearing loss Chronic hypoxic respiratory failure Bronchiectasis NICM (nonischemic cardiomyopathy) Swallowing problem 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 Kidney stone on left side Paroxysmal atrial fibrillation Congestive heart failure Acute and chronic respiratory failure BPH loc w urin obs/LUTS Urinary retention History of COVID-19 Chronic anticoagulation History of pneumothorax Diabetes Supplemental oxygen dependent Kidney stone on left side JESSA (mycobacterium avium-intracellulare) Bronchiectasis Glaucoma Pure hypercholesterolemia GERD (gastroesophageal reflux disease) History of MAC infection Essential hypertension Surgical History History of transurethral resection of bladder tumor (TURBT) History of cataract surgery History of left inguinal hernia repair History of bronchoscopy History of colonoscopy History of lumbar surgery History of cystoscopy Family History Family History Father No problems noted. Mother Medical history unknown Sister Diabetes Daughter In good health Son In good health Brother No problems noted. 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 Housing: Apartment Housing Other:: Gianluca Mack Are you a primary child day care teacher to a significant other at home: No Do you presently have visiting nurse or other home services: Yes Alcohol intake: never Comment: 1:1 sitter in room Patient Tobacco Use Status: Current everyday Tobacco user Tobacco use type: Cigarette Cigarette Packs Per Day: 1 Cigarettes Per Day: 20.0 Smoked in Last 30 Days: No e-Cigarette/Vaping Use: Former Use Second Hand Smoke Exposure: No Use of substances other than those prescribed or required for medical reasons: No Advance Directives: Yes Advance Directives on File: Yes Advance Directives Date on File: 02/03/22 Do you have a plan to hurt others: No Plan service: No Current occupational status: retired Cognitive needs: No Hearing needs: Yes Vision needs: Yes Physical Exam ED Vital Signs: Vital Signs - 24 hr 12/04/23 12:55 12/04/23 12:59 12/04/23 17:59 Temperature 97.8 F 97.8 F 99.1 F Pulse Rate 92 92 88 Respiratory Rate 16 16 16 Blood Pressure 102/62 102/62 96/56 L Pulse Oximetry 97 97 95 Oxygen Delivery Method Nasal Cannula Nasal Cannula Nasal Cannula Oxygen Flow Rate 3 12/04/23 19:46 Temperature Pulse Rate 83 Respiratory Rate 18 Blood Pressure 102/57 L Pulse Oximetry 96 Oxygen Delivery Method Nasal Cannula Oxygen Flow Rate 3 BMI result Body Mass Index 19.6 Vital signs revealed blood pressure of 102/62 otherwise unremarkable. Exam: General: Awake, alert in no distress, answers all questions appropriately, weight was 51.8 kg with a low BMI of 19.6 kg per m2 Head: Normocephalic, atraumatic, left eyelid is closed (ptosis) EENT: PERRL, Lids normal, sclera normal, conjunctiva normal, nose normal , ears normal, throat without erythema or exudates Neck: Supple, no adenopathy Lung: breath sounds symmetric, no wheezing, rales or rhonchi Chest: symmetric movement, nontender Heart: regular rate and rhythm, normal S1, S2 no murmurs or rubs Abdomen: soft, non-tender, nondistended, normal bowel sounds Back: no vertebral tenderness, no CVAT Extremities: no deformities, moves all extremities symmetrically Neuro: Awake, alert, oriented, normal speech, cranial nerves intact, moves all extremities symmetrically Psych: Pleasant, cooperative Medical Decision Making Medical Decision Making MDM Narrative: 83-year-old male with a history of diabetes mellitus, COPD, GERD, nonischemic cardiomyopathy, pneumonia, UTI/ESBL, lumbar degenerative disc disease who was sent to the emergency department by his visiting nurse for evaluation of a low blood pressure noted by visiting nurse. Patient complains of right shoulder pain, shortness of breath and a cough-he states these symptoms are chronic. Review of systems was unremarkable. Patient's blood pressure here in the emergency department was 102/62-we have no baseline blood pressures. Patient's physical examination was otherwise unremarkable. 16:04 Differential diagnosis: ?Includes but is not limited to volume depletion, dehydration, electrolyte abnormalities, anemia, urinary tract infection Course: 19:52 Start physician observation My interpretation patient's laboratory evaluation as follows: Elevated WBC 28768, with 87% neutrophils-patient was had persistently elevated WBCs with higher values in the past. CMP was normal. BNP was elevated 134. Lipase was normal. Urinalysis revealed 1+ protein, 3+ blood, 1+ leukocyte esterase. Microscopic revealed 6-10 RBCs, 0-5 WBCs with no bacteria-no evidence for an infection based on these values. Patient's chest x-ray revealed diffuse interstitial opacities which is chronic and consistent with his chronic lung disease. In reviewing the patient's blood pressures he has had similar low blood pressures in the past but has also had some higher blood pressures. Given his negative workup I do not think that the patient needs to be hospitalized. The patient has a visitor who states that the patient does not have access to his home and that he can not get into his home this evening until the morning when his visiting nurse will be there. Therefore, the patient will be placed in physician observation and watched overnight and be discharged in the morning when he can safely get into his home. I did order the patient's metformin and apixaban. I also ordered q.i.d. point of care glucose before meals. Lab Data 12/04/23 17:06 12/04/23 17:06 Labs: Lab Results 12/04/23 12/04/23 Range/Units 17:06 18:02 WBC 13.8 H (4.8-10.8) X10*3/uL RBC 3.65 L (4.60-5.80) X10*6/uL Hgb 9.5 L (14.0-18.0) g/dl Hct 30.0 L (42.0-52.0) % MCV 82.2 (80.0-98.0) fL MCH 26.0 L (27.0-33.0) pg MCHC 31.7 (31.0-36.0) g/dl RDW 17.2 H (11.0-16.0) % Plt Count 391 D (160-400) X10*3/uL MPV 8.7 L (9.4-12.4) fL Immature Gran % (Auto) 0.7 H (0.0-0.4) % Neut % (Auto) 86.7 H (45-73) % Lymph % (Auto) 4.3 L (20-40) % [place] % (Auto) 4.8 (2-11) % Eos % (Auto) 3.2 (0-4) % Baso % (Auto) 0.3 (0-2) % Lymph # (Auto) 0.6 L (1.2-4.9) X10*3/uL [place] # (Auto) 0.7 (0.1-1.2) X10*3/uL Eos # (Auto) 0.4 (0.0-0.4) X10*3/uL Baso # (Auto) 0.0 (0.0-0.2) X10*3/uL Abs Immat Gran (auto) 0.10 H (0.00-0.03) X10*3/uL Absolute Neuts (auto) 11.9 H (2.0-8.3) x10*3/uL Absolute Nucleated RBC 0.000 (0.0-0.012) X10*3/uL Nucleated RBC % (auto) 0.0 (0.0-0.2) /100WBC Sodium 137 (135-145) mmol/L Potassium 3.9 (3.3-5.1) mmol/L Chloride 104 (96-108) mmol/L Carbon Dioxide 28 (22-29) mmol/L Anion Gap 9 L (12-20) BUN 15 (9-16) mg/dL Creatinine 0.53 (0.5-1.4) mg/dL Estim Creat Clear Calc 80.0 Estimated GFR > 60 Random Glucose 88 (60-115) mg/dL Calcium 8.6 (8.4-10.2) mg/dL Total Bilirubin 0.4 (0.0-1.0) mg/dL AST 26 (5-37) U/L ALT 26 (0-40) U/L Alkaline Phosphatase 78 (39-117) U/L Troponin I High Sens 2.8 (<3.5-35.0) ng/L B-Natriuretic Peptide 134 H (<100) pg/mL Total Protein 6.9 (6.5-8.0) g/dL Albumin 2.3 L (3.5-5.0) g/dL Lipase 9 (8-78) U/L Urine Color Yellow Urine Appearance Cloudy Urine pH 5.5 (5.0-9.0) Ur Specific [place] 1.025 (1.005-1.025) Urine Protein 30 (1+) H (Neg-Trace) mg/dL Urine Glucose (UA) Negative (Negative) mg/dL Urine Ketones Trace (Negative) mg/dL Urine Blood Large (3+) H (Negative) Urine Nitrite Negative (Negative) Ur Leukocyte Esterase Small (1+) H (Negative) Urine RBC 6-10 H (0-2) /HPF Urine WBC 0-5 (0-5) /HPF Ur Squamous Epith Cells 0-2 (0-2) /HPF Calcium Oxalate Crystal Present Urine Bacteria None Seen (None Seen) Hyaline Casts 0-2 (0-2) /LPF Influenza Type A (PCR) NEGATIVE (Negative) Influenza Type B (PCR) NEGATIVE (Negative) RSV RNA Qual (PCR) NEGATIVE (Negative) SARS-CoV-2 RNA (RT-PCR) NEGATIVE (Negative) Independent Interpretation I performed an independent interpretation of an: EKG and Plain X-Ray Interpretation: My independent interpretation patient's one-view chest x-ray is as follows, bilaterally interstitial, patchy infiltrates unchanged from previous infiltrates-chronic My independent interpretation patient's 12 EKG done at 15:55 hours is as follows: Normal sinus rhythm rate of 82, prolonged QRS duration 124 milliseconds, prolonged QTC of 493 milliseconds, right bundle-branch block, no ST segment elevation, no ST segment depression, no significant T-wave abnormalities. Compared to previous EKG that is unchanged Radiology Impression Discussion of test interpretation with radiology: I have reviewed the radiologist's reading. Radiologist Impression: XR chest 1V IMPRESSION: * Redemonstration of diffuse interstitial opacification with cystic changes and bronchiectasis/infiltrating patchy infiltrates unchanged. * No pleural effusion. Dictated By: Sunday Dixon MD Discharge Plan Discharge Clinical Impression: Chronic hypotension Patient Disposition: Still a Patient Additional Instructions: Your blood work was unremarkable. Your chest x-ray is consistent with your chronic lung disease and I do not see anything that looks like pneumonia at this time. Continue taking your medications as prescribed by your providers. Follow-up with your doctor in 2 days. Please return to the emergency department if your symptoms get worse or if you develop any symptoms that are concerning to you. Prescriptions: No Action (DME) walker Misc See Rx Instructions .Route Qty: 1 0RF Patient Comments: Pt states doesnot use Rx Instructions: with seat and wheels Eliquis 5 mg tablet 5 mg PO BID 90 Days Qty: 180 0RF (DME) FreeStyle Lite Strips Strip See Rx Instructions .Route Qty: 100 5RF Rx Instructions: test once daily (DME) straight cane See Rx Instructions .Route .MEDSUPPLY Qty: 1 0RF Rx Instructions: As directed (DME) blood-glucose meter [FreeStyle Lite Meter] Kit See Rx Instructions .Route Qty: 1 0RF Rx Instructions: test once daily (DME) commode Kit See Rx Instructions .Route Qty: 1 0RF Rx Instructions: As directed ipratropium-albuterol 0.5 mg-3 mg(2.5 mg base)/3 mL solution for nebulization 3 ml inhalation QID PRN (Reason: for dyspnea) Qty: 180 11RF moxifloxacin 400 mg tablet 400 mg PO DAILY 7 Days Qty: 7 0RF potassium chloride 10 mEq tablet extended release 10 meq PO DAILY 30 Days Qty: 30 0RF (DME) Ensure See Rx Instructions .Route .MEDSUPPLY Qty: 1 3RF Rx Instructions: As directed brimonidine-timolol [Combigan] 0.2-0.5 % Drops 1 drp OPHTHALMIC (EYE) BID acetaminophen [Acetaminophen Extra Strength] 500 mg Tablet 1,000 mg PO DAILY PRN (Reason: Pain) lovastatin 10 mg tablet 10 mg PO DAILY metformin 500 mg tablet 500 mg PO DAILY omeprazole 20 mg capsule,delayed release(DR/EC) 20 mg PO DAILY@0630 tamsulosin 0.4 mg capsule 0.4 mg PO DAILY carvedilol 6.25 mg Tablet 6.25 mg PO BID Qty: 60 0RF Protocol: Hold for SBP/HR < HOLD for SBP < : 90 HOLD for HR < : 60 doxycycline monohydrate 100 mg Capsule 100 mg PO Q12H Qty: 6 0RF bumetanide 1 mg Tablet 1 mg PO DAILY Qty: 30 0RF Protocol: Hold for SBP< HOLD for SBP < : 90 prednisone 20 mg tablet See Rx Instructions .Route .COMPLEX Qty: 18 0RF Rx Instructions: 20 mg orally; 3 tabs daily for 3 days, 2 tabs daily for 3 days, 1 tab daily for 3 days (DME) lancets [FreeStyle Lancets] 28 gauge misc See Rx Instructions .Route Qty: 100 6RF Rx Instructions: Use 1 lancet once a day (DME) wheelchair See Rx Instructions .Route .MEDSUPPLY Qty: 1 0RF Rx Instructions: As directed albuterol sulfate [Ventolin HFA] 90 mcg/actuation HFA aerosol inhaler 2 puff INHALATION Q4H PRN (Reason: wheezing) 30 Days Qty: 18 2RF Anoro Ellipta 62.5-25 mcg/actuation blister with device 1 inh INHALATION DAILY 60 Days Qty: 60 3RF finasteride 5 mg tablet 5 mg PO DAILY Qty: 90 3RF Print Language: Pashto
--- NOTE | 2023-12-04 15:50 | ECG_ITS ---
Test Reason : WEAKNESS,SOB Blood Pressure : / mmHG Vent. Rate : 082 BPM Atrial Rate : 082 BPM P-R Int : 116 ms QRS Dur : 124 ms QT Int : 422 ms P-R-T Axes : 041 -48 016 degrees QTc Int : 493 ms Normal sinus rhythm Right bundle branch block Left anterior fascicular block Bifascicular block Abnormal ECG When compared with ECG of 30-AUG-2023 09:16, No significant change was found Referred By: Junito Alvarado Electronically Signed By:JULIÁN OROURKE
[2023-12-04 17:11] LABS: MANUAL DIFF FLAG NO
[2023-12-04 17:20] LABS: Basophils Percent Auto 0.3 % (0-2); Eosinophils Absolute Auto 0.4 X10*3/uL (0.0-0.4); Eosinophils Percent Auto 3.2 % (0-4); Hemoglobin 9.5 g/dl (14.0-18.0); Imm Gran Pct Auto 0.7 % (0.0-0.4); Lymphocytes Absolute Auto 0.6 X10*3/uL (1.2-4.9); Lymphocytes Percent Auto 4.3 % (20-40); Mean Corpuscular HGB Conc 31.7 g/dl (31.0-36.0); Mean Corpuscular Volume 82.2 fL (80.0-98.0); Mean Platelet Volume 8.7 fL (9.4-12.4); Monocytes Absolute Auto 0.7 X10*3/uL (0.1-1.2); Monocytes Percent Auto 4.8 % (2-11); Neutrophils Absolute Auto 11.9 x10*3/uL (2.0-8.3); Neutrophils Percent Auto 86.7 % (45-73); Platelet Count 391 X10*3/uL (160-400); Red Blood Count 3.65 X10*6/uL (4.60-5.80); Red Cell Distribution Width 17.2 % (11.0-16.0); White Blood Count 13.8 X10*3/uL (4.8-10.8)
[2023-12-04 17:34] LABS: B Type Natriuretic Peptide 134 pg/mL (<100)
[2023-12-04 17:43] LABS: Troponin-I High Sensitivity 2.8 ng/L (<3.5-35.0)
[2023-12-04 17:53] LABS: Alanine Aminotransferase 26 U/L (0-40); Albumin Level 2.3 g/dL (3.5-5.0); Alkaline Phosphatase 78 U/L (39-117); Anion Gap 9 (12-20); Aspartate Amino Transferase 26 U/L (5-37); Bilirubin Total 0.4 mg/dL (0.0-1.0); Blood Urea Nitrogen 15 mg/dL (9-16); Calcium 8.6 mg/dL (8.4-10.2); Carbon Dioxide 28 mmol/L (22-29); Chloride 104 mmol/L (96-108); Estimated Glomerular Filt Rate > 60; Glucose Random 88 mg/dL (60-115); Lipase 9 U/L (8-78); Potassium 3.9 mmol/L (3.3-5.1); Sodium 137 mmol/L (135-145); Total Protein 6.9 g/dL (6.5-8.0)
[2023-12-04 17:59] VITALS: BP 96/56; PULSE 88; RESP 16; TEMP 37.3; O2SAT 95
[2023-12-04 18:13] LABS: Appearance Urine Cloudy; Glucose Urine UA Negative (Negative); Leukocyte Esterase Urine Small (1+) (Negative); Nitrite Urine Negative (Negative); PH 5.5 (5.0-9.0); Specific Gravity - Urine 1.025 (1.005-1.025); UMIC TRIGGER UACC YES; Urine Blood Large (3+) (Negative); Urine Ketones Trace mg/dL (Negative); Urine Protein 30 (1+) mg/dL (Neg-Trace)
[2023-12-04 18:16] LABS: Color Urine Yellow
[2023-12-04 18:24] LABS: Influenza A PCR NEGATIVE (Negative); Influenza B PCR NEGATIVE (Negative); Resp Syncy Virus RNA Qual PCR NEGATIVE (Negative); SARS COV2 PCR INHOUSE NEGATIVE (Negative)
[2023-12-04 18:54] LABS: Bacteria Urine None Seen (None Seen); Calcium Oxalate Crystals Urine Present; Hyaline Casts Urine 0-2 /LPF (0-2); Squamous Epithelial Cell Urine 0-2 /HPF (0-2); UACC Culture Trigger YES; WBC Urine 0-5 /HPF (0-5)
[2023-12-04 19:46] VITALS: BP 102/57; PULSE 83; RESP 18; O2SAT 96
[2023-12-04 20:59] VITALS: BP 95/58; PULSE 84; RESP 15; TEMP 37.1; O2SAT 98
[2023-12-04 21:06] LABS: Glucose, Whole Blood 89 mg/dL (60-115)
[2023-12-04 23:13] VITALS: BP 93/61; PULSE 83; RESP 16; TEMP 36.8; O2SAT 98
[2023-12-05 00:31] VITALS: BP 92/50; PULSE 61; RESP 18; TEMP 36.7; O2SAT 97
[2023-12-05] MEDS: metFORMIN HCl ER 500 MG TAB.ER.24H 1000 MG PO (01:00)
[2023-12-05] MEDS: Apixaban 5 MG TABLET PO (01:01)
[2023-12-05 02:33] VITALS: RESP 18
[2023-12-05 04:01] VITALS: BP 99/54; PULSE 81; RESP 18; TEMP 36.8; O2SAT 96
[2023-12-05 07:22] VITALS: BP 94/57; PULSE 87; RESP 14; TEMP 37; O2SAT 95
[2023-12-05 07:47] LABS: Glucose, Whole Blood 83 mg/dL (60-115)
[2023-12-05 11:26] VITALS: BP 96/68; PULSE 88; RESP 16; TEMP 36.6; O2SAT 95
== END 2023-12-05 11:34 | disposition home or self-care (01) ==
PROVIDERS: Emergency Provider Emergency Medicine Emergency Medical Services; PCP Internal Medicine
DX: I95.89 Other hypotension (principal); R06.02 Shortness of breath; I48.91 Unspecified atrial fibrillation; I45.10 Unspecified right bundle-branch block; Z03.818 Encounter for observation for suspected exposure to other biological agents ruled out; Z79.899 Other long term (current) drug therapy; Z79.01 Long term (current) use of anticoagulants
CPT/HCPCS: 0241U; 36415; 71045; 80053; 81001; 82947; 83690; 83880; 84484; 85025; 87086; 93005; 99283; 99285

== ENCOUNTER 2023-12-12 19:10 | Emergency (ER) | payer OTHER, SELFPAY ==
--- NOTE | 2023-12-12 | ECG_ITS ---
Test Reason : RIKY Blood Pressure : / mmHG Vent. Rate : 087 BPM Atrial Rate : 087 BPM P-R Int : 128 ms QRS Dur : 122 ms QT Int : 430 ms P-R-T Axes : 063 -48 -16 degrees QTc Int : 517 ms Normal sinus rhythm Right bundle branch block Left anterior fascicular block Bifascicular block Abnormal ECG When compared with ECG of 04-DEC-2023 15:55, Nonspecific T wave abnormality, worse in Inferior leads T wave inversion now evident in Anterior leads Referred By: Generic ED Physician Electronically Signed By:JULIÁN OROURKE
[2023-12-12 19:24] VITALS: BP 109/61; BP 128/56; PULSE 85; PULSE 88; RESP 22; TEMP 36.6; O2SAT 96; O2SAT 98; BMI 18.9
[2023-12-12 19:49] LABS: MANUAL DIFF FLAG NO
[2023-12-12 19:56] LABS: Basophils Percent Auto 0.4 % (0-2); Eosinophils Absolute Auto 0.6 X10*3/uL (0.0-0.4); Eosinophils Percent Auto 5.6 % (0-4); Hematocrit 33.3 % (42.0-52.0); Hemoglobin 10.3 g/dl (14.0-18.0); Imm Gran Abs Auto 0.05 X10*3/uL (0.00-0.03); Imm Gran Pct Auto 0.5 % (0.0-0.4); Lymphocytes Absolute Auto 0.6 X10*3/uL (1.2-4.9); Lymphocytes Percent Auto 6.2 % (20-40); Mean Corpuscular HGB Conc 30.9 g/dl (31.0-36.0); Mean Corpuscular Hemoglobin 26.1 pg (27.0-33.0); Mean Corpuscular Volume 84.5 fL (80.0-98.0); Mean Platelet Volume 8.7 fL (9.4-12.4); Monocytes Absolute Auto 0.6 X10*3/uL (0.1-1.2); Monocytes Percent Auto 5.6 % (2-11); Neutrophils Absolute Auto 8.3 x10*3/uL (2.0-8.3); Neutrophils Percent Auto 81.7 % (45-73); Platelet Count 390 X10*3/uL (160-400); Red Blood Count 3.94 X10*6/uL (4.60-5.80); Red Cell Distribution Width 17.2 % (11.0-16.0); White Blood Count 10.1 X10*3/uL (4.8-10.8)
[2023-12-12 20:00] VITALS: BP 119/59; PULSE 82; RESP 19; O2SAT 100
[2023-12-12 20:05] LABS: Lactic Acid 1.3 mmol/L (0.5-2.0)
[2023-12-12 20:09] LABS: OBS Int Ctl Valid YES; OBS1 POSITIVE (NEGATIVE)
[2023-12-12 20:12] LABS: Alanine Aminotransferase 18 U/L (0-40); Albumin Level 2.3 g/dL (3.5-5.0); Alkaline Phosphatase 91 U/L (39-117); Anion Gap 12 (12-20); Aspartate Amino Transferase 24 U/L (5-37); Bilirubin Total 0.2 mg/dL (0.0-1.0); Blood Urea Nitrogen 13 mg/dL (9-16); Calcium 8.4 mg/dL (8.4-10.2); Carbon Dioxide 27 mmol/L (22-29); Chloride 103 mmol/L (96-108); Creatinine Clr Calc Pharmacy 62.9; Estimated Glomerular Filt Rate > 60; Glucose Random 117 mg/dL (60-115); Potassium 4.8 mmol/L (3.3-5.1); Sodium 137 mmol/L (135-145); Total Protein 7.7 g/dL (6.5-8.0)
[2023-12-12 20:19] LABS: Troponin-I High Sensitivity < 2.7 ng/L (<3.5-35.0)
[2023-12-12 20:54] LABS: INTERNATIONAL NORM RATIO 1.2 (0.9-1.1); Prothrombin Time 14.2 SEC (10.9-12.4)
--- NOTE | 2023-12-12 21:02 | ED_ITS ---
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, hx of ESBL bacteremia from pulmonary source, hx of JESSA, HFrEF, paroxysmal AFib on Eliquis, nonischemic cardiomyopathy, [id number] type 2 diabetes, HTN, HLD, GERD, BPH, and lumbar degenerative disc disease who was sent to the emergency department by his visiting nurse chronic malaise for last 2 weeks and slight blood in the depends apparently patient was here 12/03 discharged 12/04 stayed in the ER as he could not go back to his house patient's workup was negative during previous stay in the ER Related Data Home Medications ?Medication ?Instructions ?Recorded ?Confirmed lovastatin 10 mg tablet 10 mg PO DAILY 03/09/23 08/30/23 acetaminophen 500 mg tablet 1,000 mg PO DAILY PRN Pain 08/09/23 08/30/23 (Acetaminophen Extra Strength) brimonidine 0.2 %-timolol 0.5 % 1 drp ophthalmic (eye) BID 08/09/23 08/30/23 eye drops (Combigan) metformin 500 mg tablet 500 mg PO DAILY 08/30/23 08/30/23 omeprazole 20 mg capsule,delayed 20 mg PO DAILY@0630 08/30/23 08/30/23 release tamsulosin 0.4 mg capsule 0.4 mg PO DAILY 08/30/23 08/30/23 Previous Rx's ?Medication ?Instructions ?Recorded walker #1 ea 03/20/22 lancets 28 gauge (FreeStyle #100 ea 10/30/22 Lancets) apixaban 5 mg tablet (Eliquis) 5 mg PO BID 90 days #180 tabs 05/15/23 wheelchair #1 ea 06/20/23 blood sugar diagnostic (FreeStyle #100 ea 08/08/23 Lite Strips) straight cane #1 ea 08/08/23 blood-glucose meter (FreeStyle #1 ea 08/23/23 Lite Meter kit) finasteride 5 mg tablet 5 mg PO DAILY #90 tabs 08/27/23 Ventolin HFA 90 mcg/actuation 2 puff inhalation Q4H PRN wheezing 08/29/23 aerosol inhaler (albuterol sulfate) 30 days #18 grams commode #1 ea 08/29/23 umeclidinium 62.5 mcg-vilanterol 1 inh inhalation DAILY 60 days #60 08/29/23 25 mcg/actuation powdr for ea inhalation (Anoro Ellipta) bumetanide 1 mg tablet 1 mg PO DAILY #30 tabs 09/04/23 carvedilol 6.25 mg tablet 6.25 mg PO BID #60 tabs 09/04/23 prednisone 20 mg tablet See Rx Instructions .Route 09/04/23 .COMPLEX #18 tabs ipratropium 0.5 mg-albuterol 3 mg 3 ml inhalation QID PRN for 09/07/23 (2.5 mg base)/3 mL nebulization dyspnea #180 mL soln moxifloxacin 400 mg tablet 400 mg PO DAILY 7 days #7 tabs 11/30/23 potassium chloride 10 mEq 10 meq PO DAILY 30 days #30 tabs 12/01/23 tablet,extended release Ensure #1 ea 12/03/23 Allergies Allergy/AdvReac Type Severity Reaction Status Date / Time Penicillins [PENICILLINS] Allergy Intermediate PASSED Verified 12/12/23 19:31 OUT trazodone Allergy Intermediate tremors Verified 12/12/23 19:31 brimonidine [From Alphagan P] Allergy Unknown Verified 12/12/23 19:31 diphenhydramine Allergy Unknown Verified 12/12/23 19:31 [From Benadryl] Review of Systems 2 Review of Systems: Yes all other systems are reviewed and are negative [facility] Past Medical History Medical History COPD (chronic obstructive pulmonary disease) Acute hypoxemic respiratory failure Hearing loss Chronic hypoxic respiratory failure Bronchiectasis NICM (nonischemic cardiomyopathy) Swallowing problem 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 Kidney stone on left side Paroxysmal atrial fibrillation Congestive heart failure Acute and chronic respiratory failure BPH loc w urin obs/LUTS Urinary retention History of COVID-19 Chronic anticoagulation History of pneumothorax Diabetes Supplemental oxygen dependent Kidney stone on left side JESSA (mycobacterium avium-intracellulare) Bronchiectasis Glaucoma Pure hypercholesterolemia GERD (gastroesophageal reflux disease) History of MAC infection Essential hypertension Surgical History History of transurethral resection of bladder tumor (TURBT) History of cataract surgery History of left inguinal hernia repair History of bronchoscopy History of colonoscopy History of lumbar surgery History of cystoscopy Family History Family History Father No problems noted. Mother Medical history unknown Sister Diabetes Daughter In good health Son In good health Brother No problems noted. 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 Housing: Apartment Housing Other:: Gianluca Mack Are you a primary healthcare administrative assistant to a significant other at home: No Do you presently have visiting nurse or other home services: Yes Alcohol intake: never Comment: 1:1 sitter in room Patient Tobacco Use Status: Current everyday Tobacco user Tobacco use type: Cigarette Cigarette Packs Per Day: 1 Cigarettes Per Day: 20.0 Smoked in Last 30 Days: No e-Cigarette/Vaping Use: Former Use Second Hand Smoke Exposure: No Use of substances other than those prescribed or required for medical reasons: No Advance Directives: Yes Advance Directives on File: Yes Advance Directives Date on File: 02/03/22 Do you have a plan to hurt others: No Plan service: No Current occupational status: retired Cognitive needs: No Hearing needs: Yes Vision needs: Yes Physical Exam ED Vital Signs: Vital Signs - 24 hr 12/12/23 19:24 12/12/23 20:00 12/12/23 21:34 Temperature 97.9 F 97.8 F Pulse Rate 88 82 86 Respiratory Rate 22 H 19 20 Blood Pressure 109/61 119/59 L 125/59 L Pulse Oximetry 96 100 100 Oxygen Delivery Method Nasal Cannula Nasal Cannula Nasal Cannula Oxygen Flow Rate 3 4 12/12/23 22:40 Temperature 97.8 F Pulse Rate 86 Respiratory Rate 20 Blood Pressure 125/59 L Pulse Oximetry 100 Oxygen Delivery Method Nasal Cannula Oxygen Flow Rate 4 BMI result Body Mass Index 18.9 Appearance: Alert. Oriented X3. No acute distress. Thin emaciated Eyes: Mild pallor ENT: Pharynx normal. Oral Mucosa moist Neck: Normal inspection. Neck supple. CVS: Normal heart rate and rhythm. Pulses normal. Respiratory: No respiratory distress. Equal air entry bilateral, no wheezing/rales/rhonchi Abdomen: Soft and nontender. Bowel sounds are present, no mass palpable, no CVA tenderness rectal: Brown stool guaiac positive Skin: Skin warm and dry. Normal skin color. Normal skin turgor. Stage I sacral decubitus no active bleed Extremities: No lower extremity edema. No calf tenderness Neuro: Oriented X 3. No motor deficit. No sensory deficit.No cerebellar signs , cranial nerves II-XII intact Medical Decision Making Medical Decision Making [facility] Narrative: Patient with minor rectal bleed no milla blood was seen in the stool guaiac was positive at a small first-degree sacral decub without any active bleeding patient's workup essentially negative with stable H&H advised to keep an eye on stool if has more clots from or bleeding report to the ER for further evaluation patient has had no abdominal pain vitals were stable Differential Diagnosis Differential Diagnoses: The differential diagnosis associated with the presentation includes Lab Data [facility] Lab Attestation statement: I reviewed the patient's lab results. 12/12/23 19:40 12/12/23 19:39 Labs: Lab Results 12/12/23 12/12/23 12/12/23 Range/Units 19:38 19:39 19:40 WBC 10.1 (4.8-10.8) X10*3/uL RBC 3.94 L (4.60-5.80) X10*6/uL Hgb 10.3 L (14.0-18.0) g/dl Hct 33.3 L (42.0-52.0) % MCV 84.5 (80.0-98.0) fL MCH 26.1 L (27.0-33.0) pg MCHC 30.9 L (31.0-36.0) g/dl RDW 17.2 H (11.0-16.0) % Plt Count 390 (160-400) X10*3/uL MPV 8.7 L (9.4-12.4) fL Immature Gran % (Auto) 0.5 H (0.0-0.4) % Neut % (Auto) 81.7 H (45-73) % Lymph % (Auto) 6.2 L (20-40) % [place] % (Auto) 5.6 (2-11) % Eos % (Auto) 5.6 H (0-4) % Baso % (Auto) 0.4 (0-2) % Lymph # (Auto) 0.6 L (1.2-4.9) X10*3/uL [place] # (Auto) 0.6 (0.1-1.2) X10*3/uL Eos # (Auto) 0.6 H (0.0-0.4) X10*3/uL Baso # (Auto) 0.0 (0.0-0.2) X10*3/uL Abs Immat Gran (auto) 0.05 H (0.00-0.03) X10*3/uL Absolute Neuts (auto) 8.3 (2.0-8.3) x10*3/uL Absolute Nucleated RBC 0.000 (0.0-0.012) X10*3/uL Nucleated RBC % (auto) 0.0 (0.0-0.2) /100WBC PT 14.2 H (10.9-12.4) SEC INR 1.2 H (0.9-1.1) Sodium 137 (135-145) mmol/L Potassium 4.8 D (3.3-5.1) mmol/L Chloride 103 (96-108) mmol/L Carbon Dioxide 27 (22-29) mmol/L Anion Gap 12 (12-20) BUN 13 (9-16) mg/dL Creatinine 0.57 (0.5-1.4) mg/dL Estim Creat Clear Calc 62.9 Estimated GFR > 60 Random Glucose 117 H (60-115) mg/dL Lactic Acid 1.3 (0.5-2.0) mmol/L Calcium 8.4 (8.4-10.2) mg/dL Total Bilirubin 0.2 (0.0-1.0) mg/dL AST 24 (5-37) U/L ALT 18 (0-40) U/L Alkaline Phosphatase 91 (39-117) U/L Troponin I High Sens < 2.7 (<3.5-35.0) ng/L Total Protein 7.7 (6.5-8.0) g/dL Albumin 2.3 L (3.5-5.0) g/dL Stool Occult Blood (NEGATIVE) 12/12/23 Range/Units 20:01 WBC (4.8-10.8) X10*3/uL RBC (4.60-5.80) X10*6/uL Hgb (14.0-18.0) g/dl Hct (42.0-52.0) % MCV (80.0-98.0) fL MCH (27.0-33.0) pg MCHC (31.0-36.0) g/dl RDW (11.0-16.0) % Plt Count (160-400) X10*3/uL MPV (9.4-12.4) fL Immature Gran % (Auto) (0.0-0.4) % Neut % (Auto) (45-73) % Lymph % (Auto) (20-40) % [place] % (Auto) (2-11) % Eos % (Auto) (0-4) % Baso % (Auto) (0-2) % Lymph # (Auto) (1.2-4.9) X10*3/uL [place] # (Auto) (0.1-1.2) X10*3/uL Eos # (Auto) (0.0-0.4) X10*3/uL Baso # (Auto) (0.0-0.2) X10*3/uL Abs Immat Gran (auto) (0.00-0.03) X10*3/uL Absolute Neuts (auto) (2.0-8.3) x10*3/uL Absolute Nucleated RBC (0.0-0.012) X10*3/uL Nucleated RBC % (auto) (0.0-0.2) /100WBC PT (10.9-12.4) SEC INR (0.9-1.1) Sodium (135-145) mmol/L Potassium (3.3-5.1) mmol/L Chloride (96-108) mmol/L Carbon Dioxide (22-29) mmol/L Anion Gap (12-20) BUN (9-16) mg/dL Creatinine (0.5-1.4) mg/dL Estim Creat Clear Calc Estimated GFR Random Glucose (60-115) mg/dL Lactic Acid (0.5-2.0) mmol/L Calcium (8.4-10.2) mg/dL Total Bilirubin (0.0-1.0) mg/dL AST (5-37) U/L ALT (0-40) U/L Alkaline Phosphatase (39-117) U/L Troponin I High Sens (<3.5-35.0) ng/L Total Protein (6.5-8.0) g/dL Albumin (3.5-5.0) g/dL Stool Occult Blood POSITIVE (NEGATIVE) Discharge Plan Discharge Clinical Impression: Rectal bleed Patient Disposition: Home, Self-Care Instructions: Rectal Bleeding (ED) Additional Instructions: You had very mild amount of rectal bleeding stool was brown and your hemoglobin stable Report to the ER if you notice any blood clots or worsening of the bleed Continue your Prilosec and Eliquis Prescriptions: No Action (DME) walker Misc See Rx Instructions .Route Qty: 1 0RF Patient Comments: Pt states doesnot use Rx Instructions: with seat and wheels Eliquis 5 mg tablet 5 mg PO BID 90 Days Qty: 180 0RF (DME) FreeStyle Lite Strips Strip See Rx Instructions .Route Qty: 100 5RF Rx Instructions: test once daily (DME) straight cane See Rx Instructions .Route .MEDSUPPLY Qty: 1 0RF Rx Instructions: As directed (DME) blood-glucose meter [FreeStyle Lite Meter] Kit See Rx Instructions .Route Qty: 1 0RF Rx Instructions: test once daily (DME) commode Kit See Rx Instructions .Route Qty: 1 0RF Rx Instructions: As directed ipratropium-albuterol 0.5 mg-3 mg(2.5 mg base)/3 mL solution for nebulization 3 ml inhalation QID PRN (Reason: for dyspnea) Qty: 180 11RF moxifloxacin 400 mg tablet 400 mg PO DAILY 7 Days Qty: 7 0RF potassium chloride 10 mEq tablet extended release 10 meq PO DAILY 30 Days Qty: 30 0RF (DME) Ensure See Rx Instructions .Route .MEDSUPPLY Qty: 1 3RF Rx Instructions: As directed brimonidine-timolol [Combigan] 0.2-0.5 % Drops 1 drp OPHTHALMIC (EYE) BID acetaminophen [Acetaminophen Extra Strength] 500 mg Tablet 1,000 mg PO DAILY PRN (Reason: Pain) lovastatin 10 mg tablet 10 mg PO DAILY metformin 500 mg tablet 500 mg PO DAILY omeprazole 20 mg capsule,delayed release(DR/EC) 20 mg PO DAILY@0630 tamsulosin 0.4 mg capsule 0.4 mg PO DAILY carvedilol 6.25 mg Tablet 6.25 mg PO BID Qty: 60 0RF Protocol: Hold for SBP/HR < HOLD for SBP < : 90 HOLD for HR < : 60 bumetanide 1 mg Tablet 1 mg PO DAILY Qty: 30 0RF Protocol: Hold for SBP< HOLD for SBP < : 90 prednisone 20 mg tablet See Rx Instructions .Route .COMPLEX Qty: 18 0RF Rx Instructions: 20 mg orally; 3 tabs daily for 3 days, 2 tabs daily for 3 days, 1 tab daily for 3 days (DME) lancets [FreeStyle Lancets] 28 gauge misc See Rx Instructions .Route Qty: 100 6RF Rx Instructions: Use 1 lancet once a day (DME) wheelchair See Rx Instructions .Route .MEDSUPPLY Qty: 1 0RF Rx Instructions: As directed albuterol sulfate [Ventolin HFA] 90 mcg/actuation HFA aerosol inhaler 2 puff INHALATION Q4H PRN (Reason: wheezing) 30 Days Qty: 18 2RF Anoro Ellipta 62.5-25 mcg/actuation blister with device 1 inh INHALATION DAILY 60 Days Qty: 60 3RF finasteride 5 mg tablet 5 mg PO DAILY Qty: 90 3RF Interventions: ED Discharge Assessment Last Done: 12/12/23 22:40 Discharge Date/Time: 12/12/23 22:41 Print Language: Indonesian
[2023-12-12 21:34] VITALS: BP 125/59; PULSE 86; RESP 20; TEMP 36.6; O2SAT 100
[2023-12-12 22:40] VITALS: BP 125/59; PULSE 86; RESP 20; TEMP 36.6; O2SAT 100
== END 2023-12-12 22:41 | disposition home or self-care (01) ==
PROVIDERS: Emergency Provider Internal Medicine; PCP Internal Medicine
DX: K62.5 Hemorrhage of anus and rectum (principal); E11.9 Type 2 diabetes mellitus without complications; I10 Essential (primary) hypertension; E78.00 Pure hypercholesterolemia, unspecified; I48.0 Paroxysmal atrial fibrillation; J44.9 Chronic obstructive pulmonary disease, unspecified; Z99.81 Dependence on supplemental oxygen; F17.210 Nicotine dependence, cigarettes, uncomplicated; Z79.01 Long term (current) use of anticoagulants; Z79.84 Long term (current) use of oral hypoglycemic drugs; Z79.899 Other long term (current) drug therapy
CPT/HCPCS: 36415; 80053; 82272; 83605; 84484; 85025; 85610; 87040; 93005; 99283; 99285

== ENCOUNTER 2023-12-17 14:14 | Outpatient (AMB) | payer OTHER, SELFPAY ==
[2023-12-17 14:34] VITALS: BP 90/50; PULSE 78
--- NOTE | 2023-12-17 14:34 | MHC.OFFVIS ---
Vital Signs 12/17/23 14:34 Height 5 ft BMI Reason not done Patient refused/unable BP 90/50 L Blood Pressure Location Lt brachial Position Sitting Pulse 78 Pulse Source Pulse Oximeter Intake Visit Reasons: r/s 09/20/23 1 year followup Commercial Lending Relationship Manager Required: Yes Commercial Lending Relationship Manager Services: Commercial Lending Relationship Manager Offered & Declined Allergies Penicillins [PENICILLINS] Allergy (Intermediate, Verified 12/12/23 19:31) PASSED OUT trazodone Allergy (Intermediate, Verified 12/12/23 19:31) tremors brimonidine [From Alphagan P] Allergy (Verified 12/12/23 19:31) Unknown diphenhydramine [From Benadryl] Allergy (Verified 12/12/23 19:31) Unknown Medication List - Last Reconciled 12/17/23 by Mikey Byers MD acetaminophen (Acetaminophen Extra Strength) 1,000 mg PO DAILY PRN apixaban (Eliquis) 5 mg PO BID 90 days blood sugar diagnostic (FreeStyle Lite Strips) test once daily blood-glucose meter (FreeStyle Lite Meter kit) test once daily brimonidine-timolol 0.2-0.5 % (Combigan) 1 drp ophthalmic (eye) BID bumetanide 1 mg See Protocol PO DAILY carvedilol 6.25 mg See Protocol PO BID commode As directed [Ensure As directed] finasteride 5 mg PO DAILY ipratropium-albuterol 0.5 mg-3 mg(2.5 mg base)/3 mL 3 mL inhalation QID PRN lancets (FreeStyle Lancets) Use 1 lancet once a day lovastatin 10 mg PO DAILY metformin 500 mg PO DAILY moxifloxacin 400 mg PO DAILY 7 days omeprazole 20 mg PO DAILY@0630 potassium chloride ER 10 mEq PO DAILY 30 days prednisone 20 mg orally; 3 tabs daily for 3 days, 2 tabs daily for 3 days, 1 tab daily for 3 days [straight cane As directed] tamsulosin 0.4 mg PO DAILY umeclidinium-vilanterol 62.5-25 mcg/actuation (Anoro Ellipta) 1 inh inhalation DAILY 60 days Ventolin HFA 90 mcg/actuation (albuterol sulfate) 2 puffs inhalation Q4H PRN 30 days NS walker with seat and wheels [wheelchair As directed] HPI Comments Details: Yao returns for follow-up. He carries a diagnosis of nonischemic cardiomyopathy. Chronic shortness of breath and over the last few months, it seems that he has lost lot of weight. He looks quite emaciated. Weight could not be checked today as he is in a wheelchair but more recently he is just about 96 lb. He is also on supplemental oxygen. Overall, per dependency case manager, he has been going downhill slowly. Shortness of breath is similar to prior. No other clear-cut cardiac symptoms. Not much family support as there is no one apparently. [facility] Medical History COPD (chronic obstructive pulmonary disease) Acute hypoxemic respiratory failure Hearing loss Chronic hypoxic respiratory failure Bronchiectasis NICM (nonischemic cardiomyopathy) Swallowing problem 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 Kidney stone on left side Paroxysmal atrial fibrillation Congestive heart failure Acute and chronic respiratory failure BPH loc w urin obs/LUTS Urinary retention History of COVID-19 Chronic anticoagulation History of pneumothorax Diabetes Supplemental oxygen dependent Kidney stone on left side JESSA (mycobacterium avium-intracellulare) Bronchiectasis Glaucoma Pure hypercholesterolemia GERD (gastroesophageal reflux disease) History of MAC infection Essential hypertension Surgical History History of transurethral resection of bladder tumor (TURBT) History of cataract surgery History of left inguinal hernia repair History of bronchoscopy History of colonoscopy History of lumbar surgery History of cystoscopy Family History Father No problems noted. Mother Medical history unknown Sister Diabetes Daughter In good health Son In good health Brother No problems noted. 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 Housing: Apartment Housing Other:: Gianluca Mack Are you a primary health and social care teacher to a significant other at home: No Do you presently have visiting nurse or other home services: Yes Alcohol intake: never Comment: 1:1 sitter in room Patient Tobacco Use Status: Current everyday Tobacco user Tobacco use type: Cigarette Cigarette Packs Per Day: 1 Cigarettes Per Day: 20.0 e-Cigarette/Vaping Use: Former Use Second Hand Smoke Exposure: No Advance Directives Date on File: 02/03/22 service: No Current occupational status: retired Cognitive needs: No Hearing needs: Yes Vision needs: Yes Review of Systems Const Denies weakness ENT Denies dizziness Card Denies chest pain, Denies chest pain with activity, Denies syncope, Denies rapid heart rate, Denies pedal edema, Denies edema, Denies leg edema, Denies lightheadedness, Denies palpitations, Denies dyspnea, Denies dyspnea on exertion and Denies orthopnea Resp Denies cough, Denies dyspnea and Denies dyspnea on exertion GI Denies hematochezia and Denies change in stool character Musc Denies abnormal gait, Denies muscle cramps, Denies muscle weakness, Denies numbness, Denies radiating pain into limb and Denies tingling Neuro Denies abnormal gait, Denies dizziness, Denies syncope, Denies numbness, Denies tingling and Denies weakness Endo Denies palpitations Physical Exam Vital Signs: Last Vital Signs Pulse 78 12/17/23 14:34 BP 90/50 L 12/17/23 14:34 Const General: comfortable, no acute distress, ill appearing and tired appearing Nutritional Appearance: cachectic, thin and underweight Orientation/consciousness: patient oriented x3 HEENT Other: Unremarkable Head: Yes normal to inspection Neck Neck: Yes normal visual inspection Chest Chest palpation & inspection: normal inspection of the chest Resp Auscultation: rales, rhonchi, wheezes and diminished lung sounds Cardio Palpation: normal PMI Heart sounds: S1 normal heart sound present, S2 normal heart sound present, no gallops, no murmurs and no rubs GI Palpation (GI): Soft to palpation Back/Spine/Pelvis Other: unremarkable Skin General skin exam: no rashes or lesions noted Neuro General: patient oriented x3 Extrem General: Yes normal to inspection Psych Mental Status: mental status grossly normal Assessment & Plan Assessment & Plan (1) NICM (nonischemic cardiomyopathy): Comment: follows w/[facility] Code(s): I42.8 - Other cardiomyopathies Category: Medical Plan: Cardiac studies reviewed. In the most recent echocardiogram, LVEF is 35-40%. Described to her basal inferior akinesis. In previous studies, it has been variable including 50-55% and 40-45%. Myocardial perfusion imaging in the past without any significant ischemia; probable infarct of the apical inferior wall versus artifactual. Based on cardiac BNP levels, it was felt that his shortness of breath was more likely pulmonary in nature. For medications, only on carvedilol. Previously on Entresto but not on his list anymore. Could be because of low blood pressure. He is not suitable for any definitive therapy considering very low body weight. (2) Paroxysmal atrial fibrillation: Comment: taking eliquis Code(s): I48.0 - Paroxysmal atrial fibrillation Category: Medical Plan: This was noted during hospitalization. On beta-blockers. With regard to anticoagulation, need to decide risk benefit. (3) Bifascicular block: Code(s): I45.2 - Bifascicular block Category: Medical Plan: May follow EKGs for progressive conduction system disease. (4) Supplemental oxygen dependent: Code(s): Z99.81 - Dependence on supplemental oxygen Category: Medical Plan Discussed with dependency case manager who came. Coding Level of Care Code Est Pt Level 4 (24929) Diagnoses NICM (nonischemic cardiomyopathy) I42.8 Paroxysmal atrial fibrillation I48.0 Bifascicular block I45.2 Supplemental oxygen dependent Z99.81
== END 2023-12-17 16:22 | disposition home or self-care (01) ==
PROVIDERS: PCP Internal Medicine; Visit Provider Internal Medicine
DX: I42.8 Other cardiomyopathies (principal); I48.0 Paroxysmal atrial fibrillation; I45.2 Bifascicular block; Z99.81 Dependence on supplemental oxygen
CPT/HCPCS: 99214

== ENCOUNTER → 2023-12-17 14:14 | Outpatient (BNVA) | payer OTHER, SELFPAY | PROVIDERS: PCP Internal Medicine; Visit Provider Internal Medicine | DX: I42.8 Other cardiomyopathies (principal); I48.0 Paroxysmal atrial fibrillation; I45.2 Bifascicular block; Z99.81 Dependence on supplemental oxygen | CPT/HCPCS: 99212 ==

== ENCOUNTER 2023-12-18 13:44 | Inpatient (IN) | payer OTHER, SELFPAY ==
--- NOTE | ~2023-12-18 | XR_ITS ---
EXAMINATION: XR CHEST CLINICAL INFORMATION: Cough COMPARISON: 12/04/2023 TECHNIQUE: Portable upright 3:40 PM view of the chest was obtained. FINDINGS: Diffuse bronchial/interstitial disease similar. Bullous changes likely left similar. No definite acute superimposed process. No pleural disease. CT scan 08/09/2023, much of this represents bronchial disease.] No air-fluid levels. XR/XR chest 1V IMPRESSION: Extensive chronic bronchial disease similar. No superimposed acute process. Electronically signed by: Murphy Serrato MD 12/18/2023 09:08 PM EDT RP
[2023-12-18 14:39] VITALS: BP 106/66; PULSE 84; RESP 16; TEMP 36.1; O2SAT 99; BMI 20.8
--- NOTE | 2023-12-18 15:00 | ED.GENADULT ---
HPI - General Adult General Chief complaint: General Medical Stated complaint: FAILURE TO THRIVE Time Seen by Provider: 12/18/23 15:00 History of Present Illness ED Provider: Oralia WOOD narrative: The patient is an 83-year-old male with a history of COPD and bronchiectasis on 3 L nasal cannula at home. He has a history of ESBL infections and previous JESSA infections. Also paroxysmal AFib on apixaban as well as a nonischemic cardiomyopathy, also lxq-qkqrtlq-eeyomvnks type 2 diabetes, hypertension hyperlipidemia, GERD, prostatic hypertrophy, and lumbar degenerative disc disease. He says that he lives in an apartment with a friend. 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 He says that he has been doing poorly over the last several months and no longer is ambulatory. He does not feel that things are working out well for him in his current living situation and he thinks he might need to live in a retirement. He says he has also been somewhat more short of breath than usual. He normally wears 3 L of oxygen. He says he has been coughing a lot but he admits to a chronic cough. He has had some right shoulder pain but denies headache, chest pain, abdominal pain. He denies nausea or vomiting. He says he has lost a lot of weight recently. He says he has not been trying to lose weight. He says he eats a lot of food but still loses weight. Related Data Home Medications ?Medication ?Instructions ?Recorded ?Confirmed lovastatin 10 mg tablet 10 mg PO DAILY 03/09/23 12/17/23 acetaminophen 500 mg tablet 1,000 mg PO DAILY PRN Pain 08/09/23 12/17/23 (Acetaminophen Extra Strength) brimonidine 0.2 %-timolol 0.5 % 1 drp ophthalmic (eye) BID 08/09/23 12/17/23 eye drops (Combigan) metformin 500 mg tablet 500 mg PO DAILY 08/30/23 12/17/23 omeprazole 20 mg capsule,delayed 20 mg PO DAILY@0630 08/30/23 12/17/23 release tamsulosin 0.4 mg capsule 0.4 mg PO DAILY 08/30/23 12/17/23 Previous Rx's ?Medication ?Instructions ?Recorded walker #1 ea 03/20/22 lancets 28 gauge (Joseyle #100 ea 10/30/22 Lancets) apixaban 5 mg tablet (Eliquis) 5 mg PO BID 90 days #180 tabs 05/15/23 wheelchair #1 ea 06/20/23 blood sugar diagnostic (FreeStyle #100 ea 08/08/23 Lite Strips) straight cane #1 ea 08/08/23 blood-glucose meter (FreeStyle #1 ea 08/23/23 Lite Meter kit) finasteride 5 mg tablet 5 mg PO DAILY #90 tabs 08/27/23 Ventolin HFA 90 mcg/actuation 2 puff inhalation Q4H PRN wheezing 08/29/23 aerosol inhaler (albuterol sulfate) 30 days #18 grams commode #1 ea 08/29/23 umeclidinium 62.5 mcg-vilanterol 1 inh inhalation DAILY 60 days #60 08/29/23 25 mcg/actuation powdr for ea inhalation (Anoro Ellipta) bumetanide 1 mg tablet 1 mg PO DAILY #30 tabs 09/04/23 carvedilol 6.25 mg tablet 6.25 mg PO BID #60 tabs 09/04/23 prednisone 20 mg tablet See Rx Instructions .Route 09/04/23 .COMPLEX #18 tabs ipratropium 0.5 mg-albuterol 3 mg 3 ml inhalation QID PRN for 09/07/23 (2.5 mg base)/3 mL nebulization dyspnea #180 mL soln moxifloxacin 400 mg tablet 400 mg PO DAILY 7 days #7 tabs 11/30/23 potassium chloride 10 mEq 10 meq PO DAILY 30 days #30 tabs 12/01/23 tablet,extended release Ensure #1 12/03/23 Allergies Allergy/AdvReac Type Severity Reaction Status Date / Time Penicillins [PENICILLINS] Allergy Intermediate PASSED Verified 12/18/23 14:42 OUT trazodone Allergy Intermediate tremors Verified 12/18/23 14:42 brimonidine [From Alphagan P] Allergy Unknown Verified 12/18/23 14:42 diphenhydramine Allergy Unknown Verified 12/18/23 14:42 [From Benadryl] Review of Systems Review of Systems: Yes all other systems are reviewed and are negative PMFSH Past Medical History Medical History COPD (chronic obstructive pulmonary disease) Acute hypoxemic respiratory failure Hearing loss Chronic hypoxic respiratory failure Bronchiectasis NICM (nonischemic cardiomyopathy) Swallowing problem 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 Kidney stone on left side Paroxysmal atrial fibrillation Congestive heart failure Acute and chronic respiratory failure BPH loc w urin obs/LUTS Urinary retention History of COVID-19 Chronic anticoagulation History of pneumothorax Diabetes Supplemental oxygen dependent Kidney stone on left side JESSA (mycobacterium avium-intracellulare) Bronchiectasis Glaucoma Pure hypercholesterolemia GERD (gastroesophageal reflux disease) History of MAC infection Essential hypertension Surgical History History of transurethral resection of bladder tumor (TURBT) History of cataract surgery History of left inguinal hernia repair History of bronchoscopy History of colonoscopy History of lumbar surgery History of cystoscopy Family History Family History Father No problems noted. Mother Medical history unknown Sister Diabetes Daughter In good health Son In good health Brother No problems noted. 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 Housing: Apartment Housing Other:: Gianluca Mack Are you a primary behavioral health care manager to a significant other at home: No Do you presently have visiting nurse or other home services: Yes Alcohol intake: never Comment: 1:1 sitter in room Patient Tobacco Use Status: Current everyday Tobacco user Tobacco use type: Cigarette Cigarette Packs Per Day: 1 Cigarettes Per Day: 20.0 e-Cigarette/Vaping Use: Former Use Second Hand Smoke Exposure: No Advance Directives: Yes Advance Directives on File: Yes Advance Directives Date on File: 02/03/22 Do you have a plan to hurt others: No Plan service: No Current occupational status: retired Cognitive needs: No Hearing needs: Yes Vision needs: Yes Physical Exam ED Vital Signs: Vital Signs - 24 hr 12/18/23 14:39 12/18/23 19:47 Temperature 97 F 98.2 F Pulse Rate 84 89 Respiratory Rate 16 16 Blood Pressure 106/66 96/59 L Pulse Oximetry 99 99 Oxygen Delivery Method Nasal Cannula Nasal Cannula Oxygen Flow Rate 3 BMI result Body Mass Index 16.0 Const Other: The patient is a very cachectic and chronically ill-appearing 83-year-old male. He is awake and alert. He seems chronically ill and chronically weak but not obviously acutely ill. HENMT Other: Face is symmetrical. Mucous membranes moist. Eyes Other: The patient has right pupil is small and round an unremarkable. The patient's left pupil is distinctly abnormal consistent with previous iris surgery. Conjunctivae are clear. Extraocular movements are intact. Neck Other: Moving his neck easily. No JVD. Resp Other: Coarse air entry bilaterally. No increased work of breathing. Cardio Rate: regular rate Rhythm: regular rhythm Heart sounds: S1 normal heart sound present and S2 normal heart sound present GI Other: Abdomen is flat, soft, nontender Skin Other: Skin is pale and dry Neuro Other: The patient is awake and alert. He seems generally deconditioned but does not have any obvious focal findings. His left pupil is distinctly abnormal likely secondary to remote surgery. His eye movements are intact. His face is symmetrical. His speech is clear. His neck is supple. He moves his extremities weakly but symmetrically. Extrem Other: The patient is legs are quite thin and atrophied. No calf swelling or asymmetry or tenderness. Medical Decision Making Medical Decision Making MDM Narrative: The patient is an 83-year-old with a history of chronic lung disease. He has bronchiectasis. He is on chronic home oxygen. He comes to the emergency room because he seems to be failing at home. He is not really seem acutely ill. He is afebrile. His chest x-ray is unchanged. Vital signs are unremarkable. Labs are fairly unremarkable as well. Overall I think he does not have any acute medical process requiring hospitalization. I have consulted case management because he does not feel he can function at home. The casework specialist has seen the patient. We will have him seen by Physical therapy in the morning in case he might be a candidate for some kind of an acute rehab placement. Otherwise the patient seems stable. He was provided a meal and looks somewhat brighter than he did earlier today. The patient will be placed in physician observation. Lab Data 12/18/23 16:06 12/18/23 16:06 Labs: Lab Results 12/18/23 Range/Units 16:06 WBC 8.4 (4.8-10.8) X10*3/uL RBC 3.53 L (4.60-5.80) X10*6/uL Hgb 9.2 L (14.0-18.0) g/dl Hct 29.8 L (42.0-52.0) % MCV 84.4 (80.0-98.0) fL MCH 26.1 L (27.0-33.0) pg MCHC 30.9 L (31.0-36.0) g/dl RDW 17.1 H (11.0-16.0) % Plt Count 313 (160-400) X10*3/uL MPV 8.3 L (9.4-12.4) fL Immature Gran % (Auto) 0.5 H (0.0-0.4) % Neut % (Auto) 73.7 H (45-73) % Lymph % (Auto) 7.5 L (20-40) % Mitchell % (Auto) 7.4 (2-11) % Eos % (Auto) 10.4 H (0-4) % Baso % (Auto) 0.5 (0-2) % Lymph # (Auto) 0.6 L (1.2-4.9) X10*3/uL Mitchell # (Auto) 0.6 (0.1-1.2) X10*3/uL Eos # (Auto) 0.9 H (0.0-0.4) X10*3/uL Baso # (Auto) 0.0 (0.0-0.2) X10*3/uL Abs Immat Gran (auto) 0.04 H (0.00-0.03) X10*3/uL Absolute Neuts (auto) 6.2 (2.0-8.3) x10*3/uL Absolute Nucleated RBC 0.000 (0.0-0.012) X10*3/uL Nucleated RBC % (auto) 0.0 (0.0-0.2) /100WBC PT 13.3 H (10.9-12.4) SEC INR 1.1 (0.9-1.1) Sodium 140 (135-145) mmol/L Potassium 4.3 (3.3-5.1) mmol/L Chloride 105 (96-108) mmol/L Carbon Dioxide 34 H (22-29) mmol/L Anion Gap 5 L (12-20) BUN 14 (9-16) mg/dL Creatinine 0.62 (0.5-1.4) mg/dL Estim Creat Clear Calc 74.9 Estimated GFR > 60 Random Glucose 92 (60-115) mg/dL Calcium 8.5 (8.4-10.2) mg/dL Magnesium 2.0 (1.6-2.6) mg/dL Total Bilirubin 0.2 (0.0-1.0) mg/dL Direct Bilirubin < 0.2 (0.0-0.5) mg/dL AST 22 (5-37) U/L ALT 17 (0-40) U/L Alkaline Phosphatase 83 (39-117) U/L Troponin I High Sens 3.9 (<3.5-35.0) ng/L C-Reactive Protein 4.75 H (< or = 0.50) mg/dL B-Natriuretic Peptide 61 (<100) pg/mL Total Protein 7.1 (6.5-8.0) g/dL Albumin 2.3 L (3.5-5.0) g/dL TSH 2.16 (0.32-4.0) uIU/mL Ethyl Alcohol < 10 mg/dL Influenza Type A (PCR) NEGATIVE (Negative) Influenza Type B (PCR) NEGATIVE (Negative) RSV RNA Qual (PCR) NEGATIVE (Negative) SARS-CoV-2 RNA (RT-PCR) NEGATIVE (Negative) Discharge Plan Discharge Clinical Impression: Weakness, Bronchiectasis Patient Disposition: Still a Patient Prescriptions: No Action (DME) sarbjit [facility] [place] See Rx Instructions .Route Qty: 1 0RF Patient Comments: Pt states doesnot use Rx Instructions: with seat and wheels Eliquis 5 mg tablet 5 mg PO BID 90 Days Qty: 180 0RF (DME) FreeStyle Lite Strips Strip See Rx Instructions .Route Qty: 100 5RF Rx Instructions: test once daily (DME) straight cane See Rx Instructions .Route .MEDSUPPLY Qty: 1 0RF Rx Instructions: As directed (DME) blood-glucose meter [FreeStyle Lite Meter] Kit See Rx Instructions .Route Qty: 1 0RF Rx Instructions: test once daily (DME) commode Kit See Rx Instructions .Route Qty: 1 0RF Rx Instructions: As directed ipratropium-albuterol 0.5 mg-3 mg(2.5 mg base)/3 mL solution for nebulization 3 ml inhalation QID PRN (Reason: for dyspnea) Qty: 180 11RF moxifloxacin 400 mg tablet 400 mg PO DAILY 7 Days Qty: 7 0RF potassium chloride 10 mEq tablet extended release 10 meq PO DAILY 30 Days Qty: 30 0RF (DME) Ensure See Rx Instructions .Route .MEDSUPPLY Qty: 1 3RF Rx Instructions: As directed brimonidine-timolol [Combigan] 0.2-0.5 % Drops 1 drp OPHTHALMIC (EYE) BID acetaminophen [Acetaminophen Extra Strength] 500 mg Tablet 1,000 mg PO DAILY PRN (Reason: Pain) lovastatin 10 mg tablet 10 mg PO DAILY metformin 500 mg tablet 500 mg PO DAILY omeprazole 20 mg capsule,delayed release(DR/EC) 20 mg PO DAILY@0630 tamsulosin 0.4 mg capsule 0.4 mg PO DAILY carvedilol 6.25 mg Tablet 6.25 mg PO BID Qty: 60 0RF Protocol: Hold for SBP/HR < HOLD for SBP < : 90 HOLD for HR < : 60 bumetanide 1 mg Tablet 1 mg PO DAILY Qty: 30 0RF Protocol: Hold for SBP< HOLD for SBP < : 90 prednisone 20 mg tablet See Rx Instructions .Route .COMPLEX Qty: 18 0RF Rx Instructions: 20 mg orally; 3 tabs daily for 3 days, 2 tabs daily for 3 days, 1 tab daily for 3 days (DME) lancets [FreeStyle Lancets] 28 gauge misc See Rx Instructions .Route Qty: 100 6RF Rx Instructions: Use 1 lancet once a day (DME) wheelchair See Rx Instructions .Route .MEDSUPPLY Qty: 1 0RF Rx Instructions: As directed albuterol sulfate [Ventolin HFA] 90 mcg/actuation HFA aerosol inhaler 2 puff INHALATION Q4H PRN (Reason: wheezing) 30 Days Qty: 18 2RF Anoro Ellipta 62.5-25 mcg/actuation blister with device 1 inh INHALATION DAILY 60 Days Qty: 60 3RF finasteride 5 mg tablet 5 mg PO DAILY Qty: 90 3RF Print Language: Canadian
--- NOTE | 2023-12-18 15:24 | ECG_ITS ---
Test Reason : WEAKNESS Blood Pressure : / mmHG Vent. Rate : 085 BPM Atrial Rate : 085 BPM P-R Int : 132 ms QRS Dur : 122 ms QT Int : 390 ms P-R-T Axes : 062 -47 -42 degrees QTc Int : 464 ms Sinus rhythm with Premature supraventricular complexes Right bundle branch block Left anterior fascicular block Bifascicular block Abnormal ECG When compared with ECG of 12-DEC-2023 19:15, Premature supraventricular complexes are now Present Nonspecific T wave abnormality has replaced inverted T waves in Anterior leads QT has shortened Referred By: Jeff Barton Electronically Signed By:ELISA BRIZUELA MD
[2023-12-18 16:13] LABS: Basophils Percent Auto 0.5 % (0-2); Eosinophils Absolute Auto 0.9 X10*3/uL (0.0-0.4); Eosinophils Percent Auto 10.4 % (0-4); Hematocrit 29.8 % (42.0-52.0); Hemoglobin 9.2 g/dl (14.0-18.0); Imm Gran Abs Auto 0.04 X10*3/uL (0.00-0.03); Imm Gran Pct Auto 0.5 % (0.0-0.4); Lymphocytes Absolute Auto 0.6 X10*3/uL (1.2-4.9); Lymphocytes Percent Auto 7.5 % (20-40); MANUAL DIFF FLAG NO; Mean Corpuscular HGB Conc 30.9 g/dl (31.0-36.0); Mean Corpuscular Hemoglobin 26.1 pg (27.0-33.0); Mean Corpuscular Volume 84.4 fL (80.0-98.0); Mean Platelet Volume 8.3 fL (9.4-12.4); Monocytes Absolute Auto 0.6 X10*3/uL (0.1-1.2); Monocytes Percent Auto 7.4 % (2-11); Neutrophils Absolute Auto 6.2 x10*3/uL (2.0-8.3); Neutrophils Percent Auto 73.7 % (45-73); Platelet Count 313 X10*3/uL (160-400); Red Blood Count 3.53 X10*6/uL (4.60-5.80); Red Cell Distribution Width 17.1 % (11.0-16.0); White Blood Count 8.4 X10*3/uL (4.8-10.8)
[2023-12-18 16:25] LABS: INTERNATIONAL NORM RATIO 1.1 (0.9-1.1); Prothrombin Time 13.3 SEC (10.9-12.4)
[2023-12-18 16:28] LABS: Ethanol < 10 mg/dL
[2023-12-18 16:37] LABS: Alanine Aminotransferase 17 U/L (0-40); Albumin Level 2.3 g/dL (3.5-5.0); Alkaline Phosphatase 83 U/L (39-117); Anion Gap 5 (12-20); Aspartate Amino Transferase 22 U/L (5-37); Bilirubin Direct < 0.2 mg/dL (0.0-0.5); Bilirubin Total 0.2 mg/dL (0.0-1.0); Blood Urea Nitrogen 14 mg/dL (9-16); C Reactive Protein 4.75 mg/dL (< or = 0.50); Calcium 8.5 mg/dL (8.4-10.2); Carbon Dioxide 34 mmol/L (22-29); Chloride 105 mmol/L (96-108); Creatinine Clr Calc Pharmacy 74.9; Estimated Glomerular Filt Rate > 60; Glucose Random 92 mg/dL (60-115); Potassium 4.3 mmol/L (3.3-5.1); Sodium 140 mmol/L (135-145); Total Protein 7.1 g/dL (6.5-8.0); Troponin-I High Sensitivity 3.9 ng/L (<3.5-35.0)
[2023-12-18 16:51] LABS: Influenza A PCR NEGATIVE (Negative); Influenza B PCR NEGATIVE (Negative); Resp Syncy Virus RNA Qual PCR NEGATIVE (Negative); SARS COV2 PCR INHOUSE NEGATIVE (Negative); Thyroid Stimulating Hormone 2.16 uIU/mL (0.32-4.0)
[2023-12-18 16:52] LABS: B Type Natriuretic Peptide 61 pg/mL (<100)
[2023-12-18 17:41] VITALS: BMI 16.0
--- NOTE | 2023-12-18 19:22 | MHC.CM.ED ---
Addendum entered by Vicky Escobar 12/18/23 19:33: HCP is on file. Leti Brunner ([phone]). Please contact her with any updates. PCP is verified-Olga Calzada Original Note: CM met with patient and his friend/HCP/former HAND PACKER Leti Brunner ([phone]), using the medical manager card at the request of Dr. Dotson. Pt is Maltese speaking. Very NEZ PERCE. Alert and orientated. Pt lives alone. Leti helps when she can. Leti tells CM that the patient has a niece in [place] and he has 2 children, but there has not been any contact with them and she does not have contact information for them.Pt did have services with [facility], however those services have been D/C's, as they feel he needs a higher level of care. CM confirmed this with Viviane from [facility]. Patient is on continuous Oxygen at 3L from [facility]. Pt is wheelchair bound. A PT evaluation is pending. Both Leti and the patient agree that he needs to live in LTC. Leti is requesting pt not be referred to [facility]. States his care in the past was very bad there and he lost 30 lbs in a month. They are requesting [facility]. Pt has [facility]. Will make local referrals. CM will follow for safe discharge plan.
[2023-12-18 19:47] VITALS: BP 96/59; PULSE 89; RESP 16; TEMP 36.8; O2SAT 99
--- NOTE | 2023-12-18 20:57 | MHC.EDTECH ---
This tech took over care of patient at 1900,rounds completed,instructional technology instructor Kayla assisted with vitals,patient is resting quietly
--- NOTE | 2023-12-18 21:20 | MHC.EDTECH ---
Patient had a pullup on that was full of urine,patient was cleaned,radha-care given,was unable to get a urine sample, [place] Cath. placed at this time to keep pt clean and dry,RN aware. Belongings list completed
[2023-12-18 22:00] VITALS: BP 95/54; PULSE 84; RESP 16; TEMP 36.7; O2SAT 98
--- NOTE | 2023-12-18 22:35 | MHC.EDTECH ---
Patient was incont of urine,bed linen changed,radha-care given,replaced [place] cath,pt tolerated well,vitals taken bp is low 95/54 RN is aware
[2023-12-19] VITALS (7 sets, daily range): BP systolic 93–120; BP diastolic 57–69; PULSE 82–95; RESP 14–20; TEMP 36.4–36.8; O2SAT 85–99
[2023-12-19 00:21] LABS: Appearance Urine Turbid; Color Urine Yellow; Glucose Urine UA Negative (Negative); Leukocyte Esterase Urine Large (3+) (Negative); Nitrite Urine Positive (Negative); UMIC TRIGGER UACC YES; Urine Blood Trace (Negative); Urine Ketones Negative (Negative); Urine Protein 30 (1+) mg/dL (Neg-Trace)
--- NOTE | 2023-12-19 00:22 | MHC.EDTECH ---
Urine sample obtained and sent to lab.
[2023-12-19 00:26] LABS: Bacteria Urine 4+ (None Seen); Hyaline Casts Urine 0-2 /LPF (0-2); Squamous Epithelial Cell Urine 0-2 /HPF (0-2); UACC Culture Trigger YES; WBC Urine >50 /HPF (0-5)
[2023-12-19 00:34] LABS: Amphetamine Screen Urine Not Detected (Not Detect); Barbiturates, Urine Not Detected (Not Detect); Benzodiazepines Screen Urine Not Detected (Not Detect); Buprenorphine Scr Not Detected (Not Detect); Cannabinoid Screen Urine Not Detected (Not Detect); Cocaine Screen Urine Not Detected (Not Detect); Fentanyl, urine Not Detected (Not Detect); Methadone Screen, Urine Not Detected (Not Detect); Opiate Screen Urine Not Detected (Not Detect); Oxycodone Screen Urine Not Detected (Not Detect); Phencyclidine Screen Urine Not Detected (Not Detect)
--- NOTE | 2023-12-19 02:38 | PM.IMHP ---
History of Present Illness Date of Service: 12/19/23 Chief Complaint: Weakness This is a 83-year-old German-speaking male with pertinent history of chronic hypoxic respiratory failure due to COPD on 3 L supplemental oxygen, congestive heart failure with reduced ejection fraction, paroxysmal atrial fibrillation on Eliquis, nonischemic cardiomyopathy, wid-jbzrgfj-mzdvefotv type 2 diabetes mellitus, mixed hyperlipidemia, hypertension, BPH, gastroesophageal reflux disease, lumbar disc disease who presents to the emergency department for evaluation of weakness. History obtained with the help of medical interpreter. Patient states he has been feeling weak over the last few days. At baseline he does not use a cane or walker to ambulate. He denies any change in breathing or cough. No fever, chills, chest pain, palpitations, shortness of breath, abdominal pain, changes in bowel habits. Change in color and odor of urine present In the emergency department, urine was concerning for UTI and patient initiated on IV ertapenem due to history of ESBL UTI. Review of Systems Constitutional: Constitutional: Reports fatigue, Reports lethargy, Reports malaise and Reports weakness Cardiovascular: Cardiovascular: Reports no additional cardiovascular complaints Respiratory: Respiratory: Reports no additional respiratory complaints Gastrointestinal: Gastrointestinal: Reports no additional gastrointestinal complaints Musculoskeletal: Musculoskeletal: Reports no additional musculoskeletal complaints Neurologic: Reports weakness Endocrine: Endocrine: Reports fatigue [facility] Medical History COPD (chronic obstructive pulmonary disease) Acute hypoxemic respiratory failure Hearing loss Chronic hypoxic respiratory failure Bronchiectasis NICM (nonischemic cardiomyopathy) Swallowing problem 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 Kidney stone on left side Paroxysmal atrial fibrillation Congestive heart failure Acute and chronic respiratory failure BPH loc w urin obs/LUTS Urinary retention History of COVID-19 Chronic anticoagulation History of pneumothorax Diabetes Supplemental oxygen dependent Kidney stone on left side JESSA (mycobacterium avium-intracellulare) Bronchiectasis Glaucoma Pure hypercholesterolemia GERD (gastroesophageal reflux disease) History of MAC infection Essential hypertension Family History Father No problems noted. Mother Medical history unknown Sister Diabetes Daughter In good health Son In good health Brother No problems noted. 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 Housing: Apartment Housing Other:: Gianluca Mack Are you a primary youth career specialist to a significant other at home: No Do you presently have visiting nurse or other home services: Yes Alcohol intake: never Comment: 1:1 sitter in room Patient Tobacco Use Status: Current everyday Tobacco user Tobacco use type: Cigarette Cigarette Packs Per Day: 1 Cigarettes Per Day: 20.0 e-Cigarette/Vaping Use: Former Use Second Hand Smoke Exposure: No Advance Directives: Yes Advance Directives on File: Yes Advance Directives Date on File: 02/03/22 Do you have a plan to hurt others: No Plan service: No Current occupational status: retired Cognitive needs: No Hearing needs: Yes Vision needs: Yes Meds Allergies Allergy/AdvReac Type Severity Reaction Status Date / Time Penicillins [PENICILLINS] Allergy Intermediate PASSED Verified 12/18/23 14:42 OUT trazodone Allergy Intermediate tremors Verified 12/18/23 14:42 brimonidine [From Alphagan P] Allergy Unknown Verified 12/18/23 14:42 diphenhydramine Allergy Unknown Verified 12/18/23 14:42 [From Benadryl] Active Medications: Current Medications Ertapenem 1 gm/ Sodium (Chloride) 50 mls @ 100 mls/hr IV ONCE ONE Stop: 12/19/23 03:00 Sodium Chloride (Ns) 1,000 mls @ 999 mls/hr IVCONT .Q1H1M ONE Stop: 12/19/23 03:33 Home Medications ?Medication ?Instructions ?Recorded ?Confirmed ?Last Taken ?Type lovastatin 10 mg tablet 10 mg PO DAILY 03/09/23 12/17/23 03/08/23 History acetaminophen 500 mg tablet 1,000 mg PO DAILY PRN Pain 08/09/23 12/17/23 Unknown History (Acetaminophen Extra Strength) brimonidine 0.2 %-timolol 0.5 % 1 drp ophthalmic (eye) BID 08/09/23 12/17/23 Unknown History eye drops (Combigan) metformin 500 mg tablet 500 mg PO DAILY 08/30/23 12/17/23 Unknown History omeprazole 20 mg capsule,delayed 20 mg PO DAILY@0630 08/30/23 12/17/23 Unknown History release tamsulosin 0.4 mg capsule 0.4 mg PO DAILY 08/30/23 12/17/23 Unknown History Physical Exam Vital Signs and Narrative: Vital Signs: Last Vital Signs Temp 98.3 F 12/19/23 00:00 Pulse 94 12/19/23 00:00 Resp 18 12/19/23 00:00 BP 102/57 L 12/19/23 00:00 Pulse Ox 98 12/19/23 00:00 O2 Del Method Room Air 12/19/23 00:00 O2 Flow Rate 3 12/18/23 19:47 Oxygen Flow Rate 3 12/18/23 14:39 BMI result Body Mass Index 16.0 Middle-aged male lying in bed in no distress Neck supple, no JVD Regular rate and rhythm, S1-S2 heard Regular breath sounds bilaterally, no wheezing or crackles appreciated Abdomen soft nontender, no guarding, no rigidity Patient is awake, alert and oriented to self, place, time and person ; no focal motor deficit Psych: Normal mood No pedal edema Results Labs 12/18/23 16:06 12/18/23 16:06 Labs: Laboratory Results - last 24 hr 12/18/23 12/19/23 16:06 00:11 MCV 84.4 MCH 26.1 L MCHC 30.9 L RDW 17.1 H Plt Count 313 MPV 8.3 L Immature Gran % (Auto) 0.5 H Neut % (Auto) 73.7 H Lymph % (Auto) 7.5 L Carlisle % (Auto) 7.4 Eos % (Auto) 10.4 H Baso % (Auto) 0.5 Lymph # (Auto) 0.6 L Carlisle # (Auto) 0.6 Eos # (Auto) 0.9 H Baso # (Auto) 0.0 Abs Immat Gran (auto) 0.04 H Absolute Neuts (auto) 6.2 Absolute Nucleated RBC 0.000 Nucleated RBC % (auto) 0.0 PT 13.3 H INR 1.1 Anion Gap 5 L Estim Creat Clear Calc 74.9 Estimated GFR > 60 Random Glucose 92 Calcium 8.5 Magnesium 2.0 Total Bilirubin 0.2 Direct Bilirubin < 0.2 AST 22 ALT 17 Alkaline Phosphatase 83 Troponin I High Sens 3.9 C-Reactive Protein 4.75 H B-Natriuretic Peptide 61 Total Protein 7.1 Albumin 2.3 L TSH 2.16 Urine Color Yellow Urine Appearance Turbid Urine pH 8.0 Ur Specific Chapman 1.020 Urine Protein 30 (1+) H Urine Glucose (UA) Negative Urine Ketones Negative Urine Blood Trace H Urine Nitrite Positive H Ur Leukocyte Esterase Large (3+) H Urine RBC 6-10 H Urine WBC >50 H Ur Squamous Epith Cells 0-2 Urine Bacteria 4+ Hyaline Casts 0-2 Urine Opiates Screen Not Detected Ur Buprenorphine Scrn Not Detected Ur Oxycodone Screen Not Detected Urine Methadone Screen Not Detected Urine Fentanyl Screen Not Detected Ur Barbiturates Screen Not Detected Ur Phencyclidine Scrn Not Detected Ur Amphetamines Screen Not Detected U Benzodiazepines Scrn Not Detected Urine Cocaine Screen Not Detected U Marijuana (THC) Screen Not Detected Ethyl Alcohol < 10 Influenza Type A (PCR) NEGATIVE Influenza Type B (PCR) NEGATIVE RSV RNA Qual (PCR) NEGATIVE SARS-CoV-2 RNA (RT-PCR) NEGATIVE Imaging Radiologist's Impressions: Impressions Chest X-Ray 12/18/23 15:24 IMPRESSION: Extensive chronic bronchial disease similar. No superimposed acute process. Electronically signed by: Murphy Serrato MD 12/18/2023 09:08 PM EDT RP Assessment and Plan (1) Urinary tract infection due to extended-spectrum beta lactamase (ESBL) producing Escherichia coli: Status: Acute Plan This is a 83-year-old German-speaking male with pertinent history of chronic hypoxic respiratory failure due to COPD on 3 L supplemental oxygen, congestive heart failure with reduced ejection fraction, paroxysmal atrial fibrillation on Eliquis, nonischemic cardiomyopathy, jew-kncqfmg-ehufwzybs type 2 diabetes mellitus, mixed hyperlipidemia, hypertension, BPH, gastroesophageal reflux disease, lumbar disc disease who presents to the emergency department for evaluation of weakness. #. Acute ESBL complicated UTI: Will admit patient and initiate IV meropenem. No sepsis #. Generalized weakness in the setting of above and progressive debility: Consulting Physical therapy to evaluate and treat #. Chronic hypoxic respiratory failure due to COPD: No exacerbation during admission. Continue home inhalers. 3 L supplemental oxygen at baseline #. Nonischemic cardiomyopathy/congestive heart failure with reduced EF: On carvedilol, Entresto and Bumex #. Paroxysmal atrial fibrillation: On Eliquis and beta-marika #. Buy-dwexjdc-dfrjuwemb diabetes mellitus: Initiating Accu-Cheks with sliding scale insulin Med rec pending DVT prophylaxis: Eliquis Full code. Discussed with patient at bedside Admit as inpatient and will require two night minimum hospital stay for IV antibiotics (as above), which is not possible in a lesser acute setting. Quality Stroke Does the patient have a stroke diagnosis?: No VTE Prior VTE?: No VTE Risk Level:: Medical - moderate - high VTE Device Contraindication: Treatment Not Indicated VTE Drug Contraindication: N/A - Med Ordered
[2023-12-19] MEDS: 0.9 % Sodium Chloride 1,000 ML 999 ML IVCONT (03:21)
--- NOTE | 2023-12-19 03:38 | MHC.EDTECH ---
Hourly rounds and vitals completed,patient removed [place] cath,Patient was incont. of a large amount of urine,patient was cleaned and repositioned to comfort
--- NOTE | 2023-12-19 03:50 | PC.NURSE ---
IV line placed in LAC, IV fluid running pt medicated as per MAY. Plan for admission.
--- NOTE | 2023-12-19 05:26 | MHC.EDTECH ---
Patient was incont. of a large amount of urine,radha care given,bed linen changed,repositioned to comfort,vitals taken,and call yin in reach
[2023-12-19 05:45] LABS: Basophils Percent Auto 0.3 % (0-2); Eosinophils Absolute Auto 0.8 X10*3/uL (0.0-0.4); Eosinophils Percent Auto 9.7 % (0-4); Hematocrit 30.6 % (42.0-52.0); Hemoglobin 9.3 g/dl (14.0-18.0); Imm Gran Abs Auto 0.07 X10*3/uL (0.00-0.03); Imm Gran Pct Auto 0.8 % (0.0-0.4); Lymphocytes Absolute Auto 0.6 X10*3/uL (1.2-4.9); Lymphocytes Percent Auto 6.9 % (20-40); MANUAL DIFF FLAG NO; Mean Corpuscular HGB Conc 30.4 g/dl (31.0-36.0); Mean Corpuscular Hemoglobin 25.8 pg (27.0-33.0); Mean Platelet Volume 8.5 fL (9.4-12.4); Monocytes Absolute Auto 0.5 X10*3/uL (0.1-1.2); Monocytes Percent Auto 6.1 % (2-11); Neutrophils Absolute Auto 6.6 x10*3/uL (2.0-8.3); Neutrophils Percent Auto 76.2 % (45-73); Platelet Count 297 X10*3/uL (160-400); Red Cell Distribution Width 16.8 % (11.0-16.0); White Blood Count 8.7 X10*3/uL (4.8-10.8)
[2023-12-19 05:57] LABS: Anion Gap 8 (12-20); Blood Urea Nitrogen 11 mg/dL (9-16); Calcium 8.2 mg/dL (8.4-10.2); Carbon Dioxide 29 mmol/L (22-29); Chloride 108 mmol/L (96-108); Creatinine Clr Calc Pharmacy 56.8; Estimated Glomerular Filt Rate > 60; Glucose Random 95 mg/dL (60-115); Potassium 4.3 mmol/L (3.3-5.1); Sodium 141 mmol/L (135-145)
[2023-12-19 07:36] LABS: Glucose, Whole Blood 79 mg/dL (60-115)
--- NOTE | 2023-12-19 09:09 | PC.NURSE ---
Pt transferred to ED Overflow. Pt is a/ox3, mostly maltese speaking but able to make needs known in cameroonian. Hygeine care provided to pt on arrival, pt given water and oriented to call yin and room, all other needs met at this time.
[2023-12-19 11:17] LABS: Glucose, Whole Blood 124 mg/dL (60-115)
--- NOTE | 2023-12-19 11:24 | MHC.CM.PN ---
PT LIVES ALONE IS FOR REHAB REFRRRALS MADE PT EVAL PENDING
--- NOTE | 2023-12-19 11:38 | P.EN_ITS ---
Event Note Date of Service: 12/19/23 Event Note: 83-year-old Surinamese-speaking male with pertinent history of chronic hypoxic respiratory failure due to COPD on 3 L supplemental oxygen, congestive heart failure with reduced ejection fraction, paroxysmal atrial fibrillation on Eliquis, nonischemic cardiomyopathy, kpu-tikmfon-qabbnxdau type 2 diabetes mellitus, mixed hyperlipidemia, hypertension, BPH, gastroesophageal reflux disease, lumbar disc disease who presents to the emergency department for evaluation of weakness. Acute complicated UTI initiate IV meropenem with hx of ESBL UTI. No sepsis Generalized weakness in the setting of above and progressive debility Physical therapy>rec STR Chronic hypoxic respiratory failure due to COPD No exacerbation during admission. Continue home inhalers. 3 L supplemental oxygen at baseline Nonischemic cardiomyopathy/congestive heart failure with reduced EF On carvedilol, Entresto and Bumex Paroxysmal atrial fibrillation On Eliquis and beta-marika Wox-rpvlqmx-lxmttqhmp diabetes mellitus Initiating Accu-Cheks with sliding scale insulin DVT prophylaxis: [place] Attending Dr. Butt Full code. Discussed with patient at bedside Admit as inpatient and will require two night minimum hospital stay for IV antibiotics (as above), which is not possible in a lesser acute setting. Time Spent With Patient Time: Total time managing care of this patient today ____ minutes.
--- NOTE | 2023-12-19 14:22 | PHA.MEDREC ---
Addendum entered by Penelope Mcpherson RPh 12/19/23 14:51: Reviewed by [facility] Original Note: Pharmacy Consult ? Medication Reconciliation Pharmacy has completed the medication reconciliation. Spoke to patient with carpenter assistant installer and patient seemed to just be saying yes or no to anything because when I asked him about his Prednisone regimen he was confused when I asked how he was taking it and said i take it with liquid every day and I asked if its only one pill or if hes doing it another way and he didn't understand but said he had a person (Leti Brunner) at home that should be able to help. I called Leti with carpenter assistant installer help and she stated that she gave a folder of everything to EMT with all the info for him but if they don't have it to call Dr. Sorensen's office for a list of medications. I went and looked at his folder and did not see any paperwork and I called Dr. Loera office and received a med list from them that I utilized for the med rec.
[2023-12-19 16:47] LABS: Glucose, Whole Blood 97 mg/dL (60-115)
[2023-12-19] MEDS: 0.9 % Sodium Chloride Flush 3 ML SYRINGE IVFLUSH ×2 (16:50→23:54)
[2023-12-19 20:39] LABS: Glucose, Whole Blood 103 mg/dL (60-115)
--- NOTE | 2023-12-20 00:02 | PC.NURSE ---
Patient had small BM, skin cleansed and bed cleaned up. Patient back to sleep.
[2023-12-20 04:00] VITALS: BP 112/55; PULSE 77; RESP 16; TEMP 36.9; O2SAT 100
[2023-12-20 05:23] LABS: Anion Gap 8 (12-20); Blood Urea Nitrogen 11 mg/dL (9-16); Calcium 8.3 mg/dL (8.4-10.2); Carbon Dioxide 28 mmol/L (22-29); Chloride 104 mmol/L (96-108); Creatinine Clr Calc Pharmacy 55.9; Estimated Glomerular Filt Rate > 60; Glucose Random 96 mg/dL (60-115); Potassium 4.1 mmol/L (3.3-5.1); Sodium 136 mmol/L (135-145)
[2023-12-20] MEDS: 0.9 % Sodium Chloride Flush 3 ML SYRINGE IVFLUSH ×3 (07:22→20:56)
[2023-12-20 07:30] VITALS: BP 104/63; PULSE 88; RESP 12; TEMP 36.6; O2SAT 98
[2023-12-20 07:32] LABS: Glucose, Whole Blood 92 mg/dL (60-115)
[2023-12-20] MEDS: Apixaban 5 MG TABLET PO ×2 (07:48→20:56)
[2023-12-20] MEDS: Finasteride 5 MG TABLET PO (07:48)
[2023-12-20] MEDS: carvediloL 6.25 MG TABLET PO ×2 (07:48→20:56)
[2023-12-20] MEDS: Bumetanide 1 MG TABLET PO (07:48)
[2023-12-20] MEDS: Tamsulosin HCL 0.4 MG CAPSULE PO (07:49)
[2023-12-20] MEDS: timoloL maleate 0.5 % Oph Sol 5 ML DRBTL 1 DROP EYE-BOTH ×2 (09:52→20:56)
[2023-12-20 11:48] LABS: Glucose, Whole Blood 84 mg/dL (60-115)
--- NOTE | 2023-12-20 12:06 | MHC.CM.PN ---
CM MET WITH PT WITH A MANAGER INVENTORY PT CONFIRMS HE IS WILLING TO GO TO STR HE HAS ACCEPTED A BED OFFER FROM [facility]
[2023-12-20 12:41] VITALS: BP 100/63; PULSE 75; RESP 18; TEMP 36.1; O2SAT 97
[2023-12-20 14:24] VITALS: BMI 21.2
--- NOTE | 2023-12-20 14:39 | MHC.CLN ---
PT IS MODERATELY MALNOURISHED PT WITH MILDLY DEPLETED SUBCUTANEOUS FAT AND MUSCLE MASS AND PT TRIGGERS FOR 21% SIGNIFICANT WT LOSS X 1 YEAR. NOTED MULTIPLE WT DISCREPANCIES IN PREVIOUS WT HX. RECOMMEND DAILY WTS TO ESTABLISH BASELINE WT HT USED FOR ASSESSMENT 5'2 DIET RX: 1500DM-DIET WILL MEET PT'S NEEDS RECOMMEND LIBERALIZING PT'S DIET TO INCREASE VARIETY AND R/T ADVANCED AGE WILL ADD MAGIC CUP BID TO INCREASE KCALS MONITOR PO INTAKE AND ENCOURAGE SUPPLEMENTS
--- NOTE | 2023-12-20 15:10 | P.PNIM_ITS ---
Subjective Subjective Date of Service: 12/20/23 Interval History: Seen and examined this morning Follow-up for weakness, UTI History obtained with the assistance of a linoleum layer helper Patient reporting shortness of breath and cough unclear duration, unclear if acute or chronic in nature- somewhat vague; appears comfortable, no respiratory distress No abdominal pain, nausea, vomiting Review of Systems Review of Systems: Yes all other systems are reviewed and are negative Constitutional Constitutional: Denies chills and Denies fever(s) ENT Ears, Nose, Mouth, and Throat: Denies dizziness Cardiovascular Cardiovascular: Denies chest pain, Denies palpitations and Reports dyspnea Respiratory Respiratory: Reports cough and Reports dyspnea Neurologic Neurologic: Denies dizziness Endocrine Endocrine: Denies palpitations Physical Exam 2 Vital Signs: Vital Signs: Last Vital Signs Temp 97.0 F 12/20/23 12:41 Pulse 75 12/20/23 12:41 Resp 18 12/20/23 12:41 BP 100/63 12/20/23 12:41 Pulse Ox 97 12/20/23 12:41 O2 Del Method Nasal Cannula 12/20/23 12:41 O2 Flow Rate 3 12/20/23 12:41 Oxygen Flow Rate 3 12/18/23 14:39 BMI result Body Mass Index 21.2 Const: Other: thin, frail appearing General: cooperative, comfortable, alert and awake Resp: Other: clear b/l Effort & Inspection: normal respiratory effort, able to speak in complete sentences, no respiratory distress and no use of accessory muscles Cardio: Rate: regular rate GI: Inspection: No distended Palpation (GI): Soft to palpation Neuro: General: moves all extremities and CN's II-XI intact bilaterally Extrem: General: Yes no pedal edema Objective Data Active Medications Acetaminophen (Acetaminophen 325 Mg Tablet) 650 mg PO Q6H PRN PRN Reason: Pain, Mild (Pain Scale 1-3), fever or headache Albuterol Sulfate (Albuterol Sulfate 90 Mcg 8 Gm Inhaler) 2 puff INHALE Q4H PRN PRN Reason: wheezing Albuterol/Ipratropium (Albuterol/Iprat 2.5/0.5mg 3 Ml Ampul.Neb) 3 ml INHALE QID PRN PRN Reason: for dyspnea Apixaban (Apixaban 5 Mg Tablet) 5 mg PO BID TON Last Admin: 12/20/23 07:48 Dose: 5 mg Documented By: SHANELL Brimonidine Tartrate (Brimonidine Tartrate 0.2% Oph 5 Ml Bottle) 1 drop EYE- BOTH BID [facility] Last Admin: 12/20/23 09:48 Dose: Not Given Documented By: SHANELL Non-Admin Reason: Allergy Bumetanide (Bumetanide 1 Mg Tablet) 1 mg PO DAILY [facility]; Protocol Last Admin: 12/20/23 07:48 Dose: 1 mg Documented By: SHANELL Calcium Carbonate (Calcium Carbonate 750 Mg Tab.Chew) 750 mg PO Q4H PRN PRN Reason: Heartburn Carvedilol (Carvedilol 6.25 Mg Tablet) 6.25 mg PO BID [facility]; Protocol Last Admin: 12/20/23 07:48 Dose: 6.25 mg Documented By: SHANELL Finasteride (Finasteride 5 Mg Tablet) 5 mg PO DAILY [facility] Last Admin: 12/20/23 07:48 Dose: 5 mg Documented By: SHANELL Glucose (Glucose Gel 15 Gm Gel..Gram.) 15 gm PO Q15M PRN; Protocol PRN Reason: per Hypoglycemia Standing Ord. Dextrose (D10) 250 mls @ 750 mls/hr IV Q15M PRN; Protocol PRN Reason: per Hypoglycemia Standing Ord. Meropenem 1 gm/ Sodium (Chloride) 100 mls @ 200 mls/hr IV Q8H [facility] Last Infusion: 12/20/23 11:33 Dose: Infused Documented By: SHANELL Insulin Human Lispro (Insulin Lispro 100 Unit/Ml 3 Ml Vial) 0 unit SUBCUT QIDACHS [facility]; Protocol Last Admin: 12/20/23 11:45 Dose: Not Given Documented By: SHANELL Non-Admin Reason: No Insulin Coverage Magnesium Hydroxide (Milk Of Magnesia 30 Ml Oral.Susp) 30 ml PO DAILY PRN PRN Reason: Constipation Melatonin (Melatonin 3 Mg Tablet) 6 mg PO BEDTIME PRN PRN Reason: Insomnia Non-Formulary Medication (Umeclidinium-Vilanterol [Anoro Ellipta]) 1 inhalation INHALE DAILY [facility] Non-Formulary Medication (Lovastatin) 10 mg PO DAILY [facility] Omeprazole (Omeprazole 20 Mg Capsule.Dr) 20 mg PO DAILY@0630 [facility] Ondansetron HCl (Ondansetron Hcl 4 Mg/2 Ml Vial) 4 mg IVPUSH Q8H PRN PRN Reason: Nausea and Vomiting Sodium Chloride (0.9 % Sodium Chloride Flush 3 Ml Syringe) 3 ml IVFLUSH QSHIFT [facility] Last Admin: 12/20/23 07:22 Dose: 3 ml Documented By: SHANELL Tamsulosin HCl (Tamsulosin Hcl 0.4 Mg Capsule) 0.4 mg PO DAILY [facility] Last Admin: 12/20/23 07:49 Dose: 0.4 mg Documented By: SHANELL Timolol Maleate (Timolol Maleate 0.5 % Oph Thalia 5 Ml Drbtl) 1 drop EYE-BOTH BID [facility] Last Admin: 12/20/23 09:52 Dose: 1 drop Documented By: SHANELL Labs 12/19/23 05:41 12/20/23 04:13 Labs: Laboratory Results - last 24 hr 12/19/23 12/19/23 12/20/23 16:43 20:35 04:13 Anion Gap 8 L Estim Creat Clear Calc 55.9 Estimated GFR > 60 POC Glucose 97 103 Random Glucose 96 Calcium 8.3 L 12/20/23 12/20/23 07:28 11:44 Anion Gap Estim Creat Clear Calc Estimated GFR POC Glucose 92 84 Random Glucose Calcium Microbiology Microbiology Results: Microbiology 12/19/23 Unknown Urine Culture - Preliminary Urine clean catch - Clean Catch Midstream Gram negative dana Assessment and Plan (1) Urinary tract infection due to extended-spectrum beta lactamase (ESBL) producing Escherichia coli: Status: Acute Plan This is a 83-year-old Persian-speaking male with pertinent history of chronic hypoxic respiratory failure due to COPD on 3 L supplemental oxygen, congestive heart failure with reduced ejection fraction, paroxysmal atrial fibrillation on Eliquis, nonischemic cardiomyopathy, asn-skyxekd-mvlaueqwx type 2 diabetes mellitus, mixed hyperlipidemia, hypertension, BPH, gastroesophageal reflux disease, lumbar disc disease who presents to the emergency department for evaluation of weakness. UTI h/o ESBL started on IV meropenem urine culture - growing GNR No sepsis Generalized weakness in the setting of above and progressive debility: PT rec STR Chronic hypoxic respiratory failure due to end stage COPD/bronchiectasis/prior JESSA CXR negative Continue home inhalers remains on baseline 3 L supplemental oxygen Nonischemic cardiomyopathy/congestive heart failure with reduced EF: eubvolemic continue carvedilol, Entresto and Bumex Paroxysmal atrial fibrillation: Continue Coreg and Eliquis Agq-gsooivq-xsxsovpks diabetes mellitus: Initiating Accu-Cheks with sliding scale insulin BP Continue Proscar, Flomax DVT prophylaxis: Eliquis PT rec STR, seen by CM - dispo to [facility] when medical ready for discharge Requires ongoing inpatient hospital stay for IV antibiotics (as above), which is not possible in a lesser acute setting. Quality Stroke Does the patient have a stroke diagnosis?: No VTE Prior VTE?: No VTE Risk Level:: Medical - moderate - high VTE Device Contraindication: Treatment Not Indicated VTE Drug Contraindication: N/A - Med Ordered
[2023-12-20 16:15] VITALS: BP 98/53; PULSE 76; RESP 18; TEMP 36.1; O2SAT 100
[2023-12-20 16:20] LABS: Glucose, Whole Blood 91 mg/dL (60-115)
[2023-12-20 19:46] LABS: Glucose, Whole Blood 132 mg/dL (60-115)
[2023-12-20 20:00] VITALS: BP 109/58; PULSE 78; RESP 16; TEMP 36; O2SAT 100
[2023-12-20 23:33] VITALS: BP 91/55; PULSE 70; RESP 16; TEMP 36.1; O2SAT 94
[2023-12-21 03:22] VITALS: BP 114/61; PULSE 66; RESP 16; TEMP 36.2; O2SAT 97
[2023-12-21] MEDS: Omeprazole 20 MG CAPSULE.DR PO (05:41)
[2023-12-21 07:06] VITALS: BP 104/58; PULSE 69; RESP 18; TEMP 36.3; O2SAT 95
[2023-12-21 07:08] LABS: Glucose, Whole Blood 80 mg/dL (60-115)
[2023-12-21] MEDS: Apixaban 5 MG TABLET PO (07:15)
[2023-12-21] MEDS: timoloL maleate 0.5 % Oph Sol 5 ML DRBTL 1 DROP EYE-BOTH (07:15)
[2023-12-21] MEDS: Tamsulosin HCL 0.4 MG CAPSULE PO (07:15)
[2023-12-21] MEDS: 0.9 % Sodium Chloride Flush 3 ML SYRINGE IVFLUSH (07:15)
[2023-12-21] MEDS: Bumetanide 1 MG TABLET PO (07:15)
[2023-12-21] MEDS: carvediloL 6.25 MG TABLET PO (07:15)
[2023-12-21] MEDS: Finasteride 5 MG TABLET PO (07:15)
--- NOTE | 2023-12-21 08:43 | MHC.CLN ---
F/U DIET=REGULAR. SUPPLEMENT MAGIC CUP FORTIFIED ICE CREAM BID. PROVIDES 580 KCALS, 18 G PROTEIN. INTAKE APPEARS TO BE 100%. MONITOR PO INTAKE AND ENCOURAGE SUPPLEMENTS.
[2023-12-21 11:31] VITALS: BP 102/55; PULSE 76; RESP 16; TEMP 36.6; O2SAT 100
[2023-12-21 11:32] LABS: Glucose, Whole Blood 120 mg/dL (60-115)
[2023-12-21 11:37] VITALS: BP 102/55; PULSE 76; O2SAT 100
--- NOTE | 2023-12-21 12:42 | PM.DS ---
DS: Providers Provider Date of Service: 12/21/23 Date of admission: 12/19/23 02:37 Date of discharge: 12/21/23 Primary care physician: Olga Calzada MD Consults: 12/18/23 19:02 Consult to Case Management Stat Comment: Attending physician on discharge: Raúl Butt Discharging clinician: Eileen Zuniga DS: Diagnosis Discharge Diagnosis (1) Urinary tract infection due to extended-spectrum beta lactamase (ESBL) producing Escherichia coli: Status: Acute DS: Summary Hospital Course Hospital Course: From H&P on the day of admission This is a 83-year-old [place]-speaking male with pertinent history of chronic hypoxic respiratory failure due to COPD on 3 L supplemental oxygen, congestive heart failure with reduced ejection fraction, paroxysmal atrial fibrillation on Eliquis, nonischemic cardiomyopathy, zlb-acuxurm-qzkxuwdfm type 2 diabetes mellitus, mixed hyperlipidemia, hypertension, BPH, gastroesophageal reflux disease, lumbar disc disease who presents to the emergency department for evaluation of weakness. History obtained with the help of retail grocer. Patient states he has been feeling weak over the last few days. At baseline he does not use a cane or walker to ambulate. He denies any change in breathing or cough. No fever, chills, chest pain, palpitations, shortness of breath, abdominal pain, changes in bowel habits. Change in color and odor of urine present In the emergency department, urine was concerning for UTI and patient initiated on IV ertapenem due to history of ESBL UTI. Hospital course Patient was admitted due to generalized weakness, urinalysis was consistent with UTI and as patient has a history of ESBL he was started on treatment with IV meropenem. Urine culture returned positive for ESBL E coli. Midline was placed, patient will be discharged to complete course of IV ertapenem. Due to weakness he was evaluated by Physical therapy who recommended short-term rehab. Patient has remained afebrile, no leukocytosis, no evidence of sepsis. Blood pressure on the softer side (appears chronic when looking through past vitals), Bumex on hold, would resume tomorrow if blood pressure allows. For chronic respiratory failure due to end-stage COPD/bronchiectasis/prior JESSA chest x-ray was negative for any acute changes, no significant respiratory symptoms and patient has remained on baseline supplemental oxygen. Patient was evaluated by nutrition who reports moderate malnutrition with BMI of 21.2 and recommended adding supplements to patient's diet. Time Attestation Discharge Coordination Time (in mins): 35 Quality: Safe Use of Opioids Does Pt have an Active Cancer Diagnosis on the Problem List?: No Quality: Stroke Does the patient have a stroke diagnosis?: No Physical Exam Vital Signs: Vital Signs: Last Vital Signs Temp 97.8 F 12/21/23 11:31 Pulse 76 12/21/23 11:37 Resp 16 12/21/23 11:31 BP 102/55 L 12/21/23 11:37 Pulse Ox 100 12/21/23 11:37 O2 Del Method Nasal Cannula 12/21/23 11:31 O2 Flow Rate 3 12/21/23 11:31 Oxygen Flow Rate 3 12/18/23 14:39 BMI result Body Mass Index 21.2 Const: Other: thin, frail appearing General: cooperative, comfortable, alert and awake Resp: Other: clear b/l Effort & Inspection: normal respiratory effort, able to speak in complete sentences, no respiratory distress and no use of accessory muscles Cardio: Rate: regular rate GI: Inspection: No distended Palpation (GI): Soft to palpation Neuro: General: moves all extremities and CN's II-XI intact bilaterally Extrem: General: Yes no pedal edema DS: Data Data Completed and Pending Completed studies during hospitalization [Text1]: Procedures Insertion of Infusion Device into Left Brachial Vein, Percutaneous Approach (05/25/22) Insertion of Infusion Device into Right Brachial Vein, Percutaneous Approach (06/29/23) Insertion of Infusion Device into Right Cephalic Vein, Percutaneous Approach (12/07/21) Insertion of Infusion Device into Superior Vena Cava, Percutaneous Approach (12/07/21) Introduction of Remdesivir Anti-infective into Peripheral Vein, Percutaneous Approach, [employer] (03/18/23) Ultrasonography of Superior Vena Cava, Guidance (12/07/21) Labs on day of discharge: Laboratory Results - last 24 hr 12/20/23 12/20/23 12/21/23 16:14 19:32 07:05 POC Glucose 91 132 H 80 12/21/23 11:25 POC Glucose 120 H Discharge Plan Discharge Anticipated Discharge Date/Time: 12/21/23 15:00 Patient Disposition: Xfer SNF Discharge Diagnosis: ESBL E coli UTI Referrals: [facility] [Other] - 1 Week Olga North MD [Primary Care Provider] - 1 Week Discharge Medications: New ertapenem 1 gram recon soln 1 g IV Q24H 7 Days Qty: 5 0RF Continued (DME) walker Misc See Rx Instructions .Route Qty: 1 0RF Patient Comments: Pt states doesnot use Rx Instructions: with seat and wheels Eliquis 5 mg tablet 5 mg PO BID 90 Days Qty: 180 0RF (DME) FreeStyle Lite Strips Strip See Rx Instructions .Route Qty: 100 5RF Rx Instructions: test once daily (DME) straight cane See Rx Instructions .Route .MEDSUPPLY Qty: 1 0RF Rx Instructions: As directed (DME) blood-glucose meter [FreeStyle Lite Meter] Kit See Rx Instructions .Route Qty: 1 0RF Rx Instructions: test once daily (DME) commode Kit See Rx Instructions .Route Qty: 1 0RF Rx Instructions: As directed ipratropium-albuterol 0.5 mg-3 mg(2.5 mg base)/3 mL solution for nebulization 3 ml inhalation QID PRN (Reason: for dyspnea) Qty: 180 11RF potassium chloride 10 mEq tablet extended release 10 meq PO DAILY 30 Days Qty: 30 0RF (DME) Ensure See Rx Instructions .Route .MEDSUPPLY Qty: 1 3RF Rx Instructions: As directed brimonidine-timolol [Combigan] 0.2-0.5 % Drops 1 drp OPHTHALMIC (EYE) BID acetaminophen [Acetaminophen Extra Strength] 500 mg Tablet 1,000 mg PO DAILY PRN (Reason: Pain) lovastatin 10 mg tablet 10 mg PO DAILY metformin 500 mg tablet 500 mg PO DAILY omeprazole 20 mg capsule,delayed release(DR/EC) 20 mg PO DAILY@0630 tamsulosin 0.4 mg capsule 0.4 mg PO DAILY carvedilol 6.25 mg Tablet 6.25 mg PO BID Qty: 60 0RF Protocol: Hold for SBP/HR < HOLD for SBP < : 90 HOLD for HR < : 60 (DME) lancets [FreeStyle Lancets] 28 gauge misc See Rx Instructions .Route Qty: 100 6RF Rx Instructions: Use 1 lancet once a day (DME) wheelchair See Rx Instructions .Route .MEDSUPPLY Qty: 1 0RF Rx Instructions: As directed albuterol sulfate [Ventolin HFA] 90 mcg/actuation HFA aerosol inhaler 2 puff INHALATION Q4H PRN (Reason: wheezing) 30 Days Qty: 18 2RF Anoro Ellipta 62.5-25 mcg/actuation blister with device 1 inh INHALATION DAILY 60 Days Qty: 60 3RF finasteride 5 mg tablet 5 mg PO DAILY Qty: 90 3RF Held bumetanide 1 mg Tablet 1 mg PO DAILY Qty: 30 0RF Hold Instructions: Blood pressure soft, consider resuming in a.m.. Protocol: Hold for SBP< HOLD for SBP < : 90 Discharge Orders: Discharge Order (Routine); Ordered 12/21/23 Ordered By: Eileen Zuniga Activity on Discharge: As tolerated Stand Alone Forms: Patient Portal Discharge page Print Language: [place] Care Plan Goals: See below Health Concerns: ESBL E coli UTI. No evidence of sepsis Non-PASV Midline placed 12/20, complete 7 more days of IV ertapenem 1 gm q24 hrs via midline, 1st dose given 12/20 prior to d/c through midline. Can remove midline after completion of antibiotics bumex on hold starting today for soft bp, has been asymptomatic Plan of Treatment: see above Assessment: See discharge summary
--- NOTE | 2023-12-21 12:48 | P.CDIM_ITS ---
PROVIDER RESPONSE TEXT: To clarify, the appropriate diagnosis supported by the clinical indicators: Malnutrition: moderate QUERY TEXT: PHYSICIAN'S DOCUMENTATION REQUEST Date of Query: 12/21/2023 05:35 AM EDT Patient Name: Yao Herman Admit Date: 12/19/2023 Dear iEleen Zuniga PA, A review of the medical record indicates additional documentation may be needed. Please review below and update the documentation accordingly. Clinical Indicators: Clinical nutrition assessment: Patient is moderately malnourished. Mildly depleted subcutaneous fat and muscle mass and pt triggers for 21% wt loss x 1 year. Will add Magic cup BID to increase Kcals. Monitor PO intake and encourage supplements. If possible, please provide an associated diagnosis related to the abnormal BMI, such as: Malnutrition mild, moderate, severe Cachexia Anorexia Other (explain) Clinically unable to determine (explain) Thank you, Libra Arriaga, CCS, CDIS Use of terms such as suspected, likely, concern for, or probable (associated with a specific diagnosi s that is being evaluated, monitored, or treated as if it exists) are acceptable and can be coded in the inpatient se tting, when documented at the time of discharge. Please use your independent medical judgment in providing your response. THIS QUERY IS PART OF THE PERMANENT MEDICAL RECORD
--- NOTE | 2023-12-21 13:11 | HO.MIDLINE ---
Midline Insertion MIDLINE INSERTION Diagnosis: UTI Indication: residential antibiotics needed Pertinent Labs: reviewed Technique: Using sterile technique including cap and mask, glove and drape, the right arm was prepped and draped in the usual sterile fashion of full barrier technique with CHG. Using ultrasound guidance, Right brachial vein access was obtained on first attempt. A 20G X 8CM Non-PASV ST Midline was positioned. The procedure was performed in S272. Ultrasound was used to document vein patency and for needle entry. A formal ultrasound picture was recorded. [employer] Test Engineer has released the line for use and it is currently dressed with a StatLock, Tegaderm, and CHG disc. Verification has been performed for blood return and line patency. Arm Circumference: 22.5 CM Equipment: BARD PowerGlide ST Midline Catheter Type: 20G X 8CM non-PASV ST Midline Lot #: [id number]
[2023-12-21] MEDS: Ertapenem Sodium 1 GM VIAL IVPUSH (13:12)
--- NOTE | 2023-12-21 13:17 | MHC.CM.PN ---
pt going to [facility] for 4 today pts hcp notified of dc
[2023-12-21 15:15] VITALS: BP 94/54; PULSE 82; RESP 20; TEMP 36.6; O2SAT 96
[2023-12-21 16:23] LABS: Glucose, Whole Blood 118 mg/dL (60-115)
== END 2023-12-21 18:00 | disposition skilled nursing facility (03) | DRG 690 ==
LOC: HO.ED 12-19 02:34 → HO.EDOVER 12-19 05:32 → HO.S3 12-20 05:26
PROVIDERS: Nurse Practitioner Acute Care; Admitting Provider Student in an Organized Health Care Education/Training Program; Emergency Provider Emergency Medicine; PCP Internal Medicine; Visit Provider Physician Assistant Medical
DX: N39.0 Urinary tract infection, site not specified (principal); E44.0 Moderate protein-calorie malnutrition; J96.11 Chronic respiratory failure with hypoxia; I42.8 Other cardiomyopathies; Z16.12 Extended spectrum beta lactamase (ESBL) resistance; I50.22 Chronic systolic (congestive) heart failure; I11.0 Hypertensive heart disease with heart failure; I48.0 Paroxysmal atrial fibrillation; E78.2 Mixed hyperlipidemia; J47.9 Bronchiectasis, uncomplicated; B96.20 Unspecified Escherichia coli [E. coli] as the cause of diseases classified elsewhere; Z20.822 Contact with and (suspected) exposure to COVID-19; Z87.891 Personal history of nicotine dependence; Z87.440 Personal history of urinary (tract) infections; Z99.81 Dependence on supplemental oxygen; Z68.21 Body mass index [BMI] 21.0-21.9, adult; Z79.01 Long term (current) use of anticoagulants; Z79.84 Long term (current) use of oral hypoglycemic drugs; Z79.899 Other long term (current) drug therapy
CPT/HCPCS: 0241U; 36410; 36415; 71045; 80048; 80076; 80307; 81001; 82947; 83735; 83880; 84443; 84484; 85025; 85610; 86140; 87086; 87088; 87186; 93005; 97162; 97530; 99285; J1335; J2185

== ENCOUNTER → 2023-12-18 15:01 | Outpatient (BNV) | payer OTHER, SELFPAY | PROVIDERS: Emergency Provider Emergency Medicine; PCP Internal Medicine; Visit Provider Student in an Organized Health Care Education/Training Program | DX: N39.0 Urinary tract infection, site not specified (principal); B96.29 Other Escherichia coli [E. coli] as the cause of diseases classified elsewhere; Z16.12 Extended spectrum beta lactamase (ESBL) resistance | CPT/HCPCS: 99222; 99233; 99239; 99499 ==

== ENCOUNTER → 2023-12-18 15:24 | Outpatient (BNV) | payer OTHER, SELFPAY | PROVIDERS: Admitting Provider Student in an Organized Health Care Education/Training Program; Emergency Provider Emergency Medicine; PCP Internal Medicine; Visit Provider Internal Medicine Cardiovascular Disease | DX: I45.2 Bifascicular block (principal); I47.10 Supraventricular tachycardia, unspecified | CPT/HCPCS: 93010 ==

== ENCOUNTER 2023-12-24 12:08 | Inpatient (IN) | payer OTHER, SELFPAY ==
[2023-12-24] VITALS (10 sets, daily range): BP systolic 77–158; BP diastolic 43–70; PULSE 85–102; RESP 16–30; TEMP 36.2–37.4; O2SAT 88–100; BMI 17.4; BMI 17.1
--- NOTE | ~2023-12-24 | XR_ITS ---
EXAMINATION: XR CHEST CLINICAL INFORMATION: Shortness of breath COMPARISON: Chest 12/18/2023 TECHNIQUE: Frontal view of the chest was obtained. FINDINGS: Other than slight decrease in opacity at the left lung base, diffuse bronchial/intercostal disease is similar. No definite acute superimposed process. No gross pleural effusion. The cardiomediastinal silhouette is stable. No acute osseous abnormality. XR/XR chest 1V IMPRESSION: Interval decrease in opacity at the left lung base, otherwise extensive chronic bronchial disease is similar. No superimposed acute process is identified. Electronically signed by: Ashley Arroyo MD 12/24/2023 03:40 PM EDT
--- NOTE | 2023-12-24 12:11 | ED_ITS ---
HPI - General Adult General Chief complaint: Dyspnea Stated complaint: SOB Time Seen by Provider: 12/24/23 12:11 History of Present Illness ED Provider: Dr. Lozoya HPI narrative: 83 y/o M patient; PMH COPD, non-ischemic cardiomyopathy with reduced EF, T2DM, GERD, atrial fibrillation on Eliquis; presents from SNF with report of 3 days - 1 week of increased dypnea associated with a non-productive cough. He denies: fever or chills, chest pain, nausea/vomiting, abdominal pain, back pain. Patient was found by EMS to be hypoxic on home 3L O2. Chart reviewed - patient recently admitted from 12/18 - 12/21/2023 for ESBL UTI treated with Ertapenem. Patient was eventually discharged to SNF for rehab with plan for IV entapenem course completion out-patient via mid-line. Related Data Home Medications ?Medication ?Instructions ?Recorded ?Confirmed lovastatin 10 mg tablet 10 mg PO DAILY 03/09/23 12/19/23 acetaminophen 500 mg tablet 1,000 mg PO DAILY PRN Pain 08/09/23 12/19/23 (Acetaminophen Extra Strength) brimonidine 0.2 %-timolol 0.5 % 1 drp ophthalmic (eye) BID 08/09/23 12/19/23 eye drops (Combigan) metformin 500 mg tablet 500 mg PO DAILY 08/30/23 12/19/23 omeprazole 20 mg capsule,delayed 20 mg PO DAILY@0630 08/30/23 12/19/23 release tamsulosin 0.4 mg capsule 0.4 mg PO DAILY 08/30/23 12/19/23 Previous Rx's ?Medication ?Instructions ?Recorded walker #1 ea 03/20/22 lancets 28 gauge (FreeStyle #100 ea 10/30/22 Lancets) apixaban 5 mg tablet (Eliquis) 5 mg PO BID 90 days #180 tabs 05/15/23 wheelchair #1 ea 06/20/23 blood sugar diagnostic (FreeStyle #100 ea 08/08/23 Lite Strips) straight cane #1 ea 08/08/23 blood-glucose meter (FreeStyle #1 ea 08/23/23 Lite Meter kit) finasteride 5 mg tablet 5 mg PO DAILY #90 tabs 08/27/23 Ventolin HFA 90 mcg/actuation 2 puff inhalation Q4H PRN wheezing 08/29/23 aerosol inhaler (albuterol sulfate) 30 days #18 grams commode #1 ea 08/29/23 umeclidinium 62.5 mcg-vilanterol 1 inh inhalation DAILY 60 days #60 08/29/23 25 mcg/actuation powdr for ea inhalation (Anoro Ellipta) bumetanide 1 mg tablet 1 mg PO DAILY #30 tabs 09/04/23 carvedilol 6.25 mg tablet 6.25 mg PO BID #60 tabs 09/04/23 ipratropium 0.5 mg-albuterol 3 mg 3 ml inhalation QID PRN for 09/07/23 (2.5 mg base)/3 mL nebulization dyspnea #180 mL soln potassium chloride 10 mEq 10 meq PO DAILY 30 days #30 tabs 12/01/23 tablet,extended release Ensure #1 ea 12/03/23 ertapenem 1 gram solution for 1 g IV Q24H 7 days #5 ea 12/21/23 injection Allergies Allergy/AdvReac Type Severity Reaction Status Date / Time Penicillins [PENICILLINS] Allergy Intermediate PASSED Verified 12/24/23 12:20 OUT trazodone Allergy Intermediate tremors Verified 12/24/23 12:20 brimonidine [From Alphagan P] Allergy Unknown Verified 12/24/23 12:20 diphenhydramine Allergy Unknown Verified 12/24/23 12:20 [From Benadryl] Review of Systems 2 Review of Systems: Yes all other systems are reviewed and are negative PMFSH Past Medical History Attestation statement: The following information was validated with the patient. Source: old records reviewed Medical History COPD (chronic obstructive pulmonary disease) Acute hypoxemic respiratory failure Hearing loss Chronic hypoxic respiratory failure Bronchiectasis NICM (nonischemic cardiomyopathy) Swallowing problem 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 Kidney stone on left side Paroxysmal atrial fibrillation Congestive heart failure Acute and chronic respiratory failure BPH loc w urin obs/LUTS Urinary retention History of COVID-19 Chronic anticoagulation History of pneumothorax Diabetes Supplemental oxygen dependent Kidney stone on left side JESSA (mycobacterium avium-intracellulare) Bronchiectasis Glaucoma Pure hypercholesterolemia GERD (gastroesophageal reflux disease) History of MAC infection Essential hypertension Surgical History History of transurethral resection of bladder tumor (TURBT) History of cataract surgery History of left inguinal hernia repair History of bronchoscopy History of colonoscopy History of lumbar surgery History of cystoscopy Family History Family History Father No problems noted. Mother Medical history unknown Sister Diabetes Daughter In good health Son In good health Brother No problems noted. 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) Alcohol intake: never Comment: 1:1 sitter in room Patient Tobacco Use Status: Former Tobacco user Tobacco use type: Cigarette Cigarette Packs Per Day: 1 Cigarettes Per Day: 20.0 e-Cigarette/Vaping Use: Former Use Second Hand Smoke Exposure: No Advance Directives: Yes Advance Directives on File: Yes Advance Directives Date on File: 02/03/22 service: No Current occupational status: retired Cognitive needs: No Hearing needs: Yes Vision needs: Yes Physical Exam ED Vital Signs: Vital Signs - 24 hr 12/24/23 12:11 12/24/23 12:28 12/24/23 13:22 Temperature 97.8 F 99.3 F Pulse Rate 97 97 90 Respiratory Rate 28 H 30 H 23 H Blood Pressure 77/47 L 77/47 L 126/43 L Pulse Oximetry 88 L 91 L 99 Oxygen Delivery Method Nasal Cannula Oxymask Oxymask Oxygen Flow Rate 12 12 12/24/23 13:37 12/24/23 13:52 12/24/23 14:28 Temperature 97.6 F Pulse Rate 94 93 93 Respiratory Rate 22 H 20 26 H Blood Pressure 115/54 L 123/63 153/66 H Pulse Oximetry 98 99 100 Oxygen Delivery Method Oxymask Oxymask Oxymask Oxygen Flow Rate 12 12 12 12/24/23 14:36 12/24/23 15:10 Temperature Pulse Rate 91 91 Respiratory Rate 26 H 20 Blood Pressure 158/70 H 125/60 Pulse Oximetry 100 100 Oxygen Delivery Method Oxymask Oxymask Oxygen Flow Rate 12 10 BMI result Body Mass Index 17.4 Patient is afebrile (99.3 rectally), tachypnic, hypotensive, and hypoxic requiring oxymack at 12L for SpO2 91%. Const General: cooperative Nutritional Appearance: cachectic Orientation/consciousness: patient oriented x3 HENMT Head: Yes normal to inspection and Yes atraumatic Eyes General: appearance normal, both eyes and all related structures Neck Neck: Yes normal visual inspection, Yes full ROM, Yes supple and No tender Chest Chest palpation & inspection: normal inspection of the chest and normal palpation of entire chest wall Resp Other: Tachypnea, increased WOB, bibasilar rhonchi Cardio Rate: regular rate Peripheral pulses: Peripheral pulses 2+ throughout GI Other: Patient incontinent of stool Inspection: Yes normal to inspection, No Abdominal wall edema and No distended Palpation (GI): Soft to palpation, not firm, nontender, no guarding and not rigid Auscultation: normal bowel sounds Other: Stage I pressure decubitus ulceration Neuro General: patient oriented x3 Course Course Course Narrative: Patient seen immediately for hypoxia, hypotension, tachypnea. Exam and history consistent with septic shock of unclear etiology. Providing bronchodilator treatments and solu-medrol. Providing 1L IVF. I discussed antibiotic choice with ID given patient is on ertapenem at this time via mid-line. Blood cultures obtained from mid-line (x1) and peripherally (x2). ID recommends Vancomycin, Zosyn, and Diflucan. ID recommend removal of PICC line. Provided additional 500cc IVF for total 30cc/kg IV repletion. Reevaluation(s) Reevaluation #1: Labs reviewed. Leukocytosis 22. Baseline anemia 10.6. Troponin 3.2. VBG reassuring. LA 2.1. Patient re-evaluated multiple times. Improvement in blood pressure after fluid bolus. Plan: Admit to hospitalist for septic shock Condition: Guarded Time: 12:36 Medications Administered Discontinued Medications Generic Name Dose Route Start Last Admin Trade Name Freq PRN Reason Stop Dose Admin Sodium Chloride 1,000 mls @ 999 mls/hr 12/24/23 12:30 12/24/23 14:27 Ns IV 12/24/23 13:30 Infused .Q1H1M TON Infusion Vancomycin HCl 1,250 mg/ 250 mls @ 166.667 mls/hr 12/24/23 12:38 12/24/23 15:09 Sodium Chloride IV 12/24/23 14:07 Infused ONCE ONE Infusion Piperacillin Sod/Tazobactam 100 mls @ 200 mls/hr 12/24/23 12:38 12/24/23 14:27 Sod 4.5 gm/ Sodium Chloride IV 12/24/23 13:07 Infused ONCE ONE Infusion Fluconazole 200 mg in 100 mls @ 100 mls/hr 12/24/23 12:38 12/24/23 15:09 Diflucan IV 12/24/23 13:37 Infused ONCE ONE Infusion Sodium Chloride 1,000 mls @ 500 mls/hr 12/24/23 13:00 12/24/23 15:09 Ns IV 12/24/23 14:59 Infused .Q2H TON Infusion Methylprednisolone Sodium Succinate 125 mg 12/24/23 12:19 12/24/23 13:20 Methylprednisolone Sod Succ 125 Mg/2 Ml Vial IVPUSH 12/24/23 12:20 125 mg ONCE ONE Administration Procedures EJ/Peripheral Line Arm L: Time Out Performed: Yes Skin Cleansed in Sterile Fashion: Yes Size (gauge): 20 IV Secured and Dressing Applied: Yes Patient Tolerated Procedure: well and no complications Arm R: Time Out Performed: Yes Skin Cleansed in Sterile Fashion: Yes Size (gauge): 18 IV Secured and Dressing Applied: Yes Patient Tolerated Procedure: well and no complications Medical Decision Making Lab Data 12/24/23 12:46 12/24/23 12:46 Labs: Lab Results 12/24/23 12/24/23 12/24/23 Range/Units 12:46 12:57 15:11 WBC 22.0 H (4.8-10.8) X10*3/uL RBC 4.00 L (4.60-5.80) X10*6/uL Hgb 10.6 L (14.0-18.0) g/dl Hct 33.8 L (42.0-52.0) % MCV 84.5 (80.0-98.0) fL MCH 26.5 L (27.0-33.0) pg MCHC 31.4 (31.0-36.0) g/dl RDW 17.3 H (11.0-16.0) % Plt Count 357 (160-400) X10*3/uL MPV 8.7 L (9.4-12.4) fL Immature Gran % (Auto) 0.7 H (0.0-0.4) % Neut % (Auto) 92.1 H (45-73) % Lymph % (Auto) 1.4 L (20-40) % [place] % (Auto) 3.4 (2-11) % Eos % (Auto) 2.1 (0-4) % Baso % (Auto) 0.3 (0-2) % Lymph # (Auto) 0.3 L (1.2-4.9) X10*3/uL [place] # (Auto) 0.7 (0.1-1.2) X10*3/uL Eos # (Auto) 0.5 H (0.0-0.4) X10*3/uL Baso # (Auto) 0.1 (0.0-0.2) X10*3/uL Abs Immat Gran (auto) 0.16 H (0.00-0.03) X10*3/uL Absolute Neuts (auto) 20.3 H (2.0-8.3) x10*3/uL Absolute Nucleated RBC 0.000 (0.0-0.012) X10*3/uL Nucleated RBC % (auto) 0.0 (0.0-0.2) /100WBC Smear Tech's Comments VERIFIED VBG pH 7.43 (7.32-7.43) VBG pCO2 43 mmHg VBG pO2 51 mmHg VBG HCO3 29 H (22-26) mmol/L VBG O2 Saturation 77.0 % VBG Base Excess 4.5 mmol/L Sodium 138 (135-145) mmol/L Potassium 4.7 (3.3-5.1) mmol/L Chloride 102 (96-108) mmol/L Carbon Dioxide 26 (22-29) mmol/L Anion Gap 15 (12-20) BUN 17 H (9-16) mg/dL Creatinine 0.67 (0.5-1.4) mg/dL Estim Creat Clear Calc 59.8 Estimated GFR > 60 Random Glucose 131 H (60-115) mg/dL Lactic Acid 2.1 H* (0.5-2.0) mmol/L Lactic Acid F/U @ 2Hr 1.7 (0.5-2.0) mmol/L Calcium 9.4 D (8.4-10.2) mg/dL Total Bilirubin 0.3 (0.0-1.0) mg/dL Direct Bilirubin 0.2 (0.0-0.5) mg/dL AST 31 (5-37) U/L ALT 21 (0-40) U/L Alkaline Phosphatase 79 (39-117) U/L Troponin I High Sens 3.2 (<3.5-35.0) ng/L B-Natriuretic Peptide 77 (<100) pg/mL Total Protein 7.6 (6.5-8.0) g/dL Albumin 2.7 L (3.5-5.0) g/dL Lipase 17 (8-78) U/L Independent Interpretation I performed an independent interpretation of an: EKG Interpretation: NSR 89BPM with RBBB Critical Care Time Critical Care Time Critical Care Time: Yes Total Critical Care Time: 37 Attestation: Total critical care time: Approximately?37?minutes Due to a high probability of clinically significant, life threatening deterioration, the patient required my highest level of preparedness to intervene emergently and I personally spent this critical care time directly and personally managing the patient. This critical care time included obtaining a history; examining the patient; pulse oximetry; ordering and review of studies; arranging urgent treatment with development of a management plan; evaluation of patient's response to treatment; frequent reassessment; and, discussions with other providers. This critical care time was performed to assess and manage the high probability of imminent, life-threatening deterioration that could result in multi-organ failure. It was exclusive of separately billable procedures and treating other patients? Discharge Plan Discharge Clinical Impression: Septic shock Patient Disposition: Admitted As Inpatient
--- NOTE | 2023-12-24 12:18 | ECG_ITS ---
Test Reason : SOB Blood Pressure : / mmHG Vent. Rate : 089 BPM Atrial Rate : 089 BPM P-R Int : 130 ms QRS Dur : 120 ms QT Int : 370 ms P-R-T Axes : 068 -52 -54 degrees QTc Int : 450 ms Normal sinus rhythm Right bundle branch block Left anterior fascicular block Bifascicular block T wave abnormality, consider lateral ischemia Abnormal ECG When compared with ECG of 18-DEC-2023 15:38, T wave inversion now evident in Lateral leads Referred By: Analilia Lozoya Electronically Signed By:BEATRIS PERALTA
[2023-12-24 12:58] LABS: Basophils Absolute Auto 0.1 X10*3/uL (0.0-0.2); Basophils Percent Auto 0.3 % (0-2); Eosinophils Absolute Auto 0.5 X10*3/uL (0.0-0.4); Eosinophils Percent Auto 2.1 % (0-4); Hematocrit 33.8 % (42.0-52.0); Hemoglobin 10.6 g/dl (14.0-18.0); Imm Gran Abs Auto 0.16 X10*3/uL (0.00-0.03); Imm Gran Pct Auto 0.7 % (0.0-0.4); Lymphocytes Absolute Auto 0.3 X10*3/uL (1.2-4.9); Lymphocytes Percent Auto 1.4 % (20-40); MANUAL DIFF FLAG SCAN; Mean Corpuscular HGB Conc 31.4 g/dl (31.0-36.0); Mean Corpuscular Hemoglobin 26.5 pg (27.0-33.0); Mean Corpuscular Volume 84.5 fL (80.0-98.0); Mean Platelet Volume 8.7 fL (9.4-12.4); Monocytes Absolute Auto 0.7 X10*3/uL (0.1-1.2); Monocytes Percent Auto 3.4 % (2-11); Neutrophils Absolute Auto 20.3 x10*3/uL (2.0-8.3); Neutrophils Percent Auto 92.1 % (45-73); Platelet Count 357 X10*3/uL (160-400); Red Cell Distribution Width 17.3 % (11.0-16.0); SCAN SMEAR FLAG 1
[2023-12-24] MEDS: Piperacillin Sodium/Tazobactam 4.5 GM in 0.9 % Sodium Chloride 100 ML IV (12:59)
[2023-12-24] MEDS: vancomycin HCL 1,250 MG in 0.9 % Sodium Chloride 250 ML 166.67 MG IV (13:00)
[2023-12-24] MEDS: 0.9 % Sodium Chloride 1,000 ML 999 ML IV (13:00)
[2023-12-24] MEDS: 0.9 % Sodium Chloride 1,000 ML 500 ML IV (13:01)
--- NOTE | 2023-12-24 13:02 | PC.NURSE ---
Diflucan not available in ED. Request per pharmacy
[2023-12-24 13:04] LABS: VBG Base Excess 4.5 mmol/L; VBG HCO3 29 mmol/L (22-26); VBG pCO2 43 mmHg; VBG pH 7.43 (7.32-7.43); VBG pO2 51 mmHg
[2023-12-24 13:05] LABS: Venous Blood Gas Refer to POC result
[2023-12-24] MEDS: methylPREDNISolone Sod Succ 125 MG/2 ML VIAL IVPUSH (13:20)
[2023-12-24 13:21] LABS: Alanine Aminotransferase 21 U/L (0-40); Albumin Level 2.7 g/dL (3.5-5.0); Alkaline Phosphatase 79 U/L (39-117); Anion Gap 15 (12-20); Aspartate Amino Transferase 31 U/L (5-37); Bilirubin Direct 0.2 mg/dL (0.0-0.5); Bilirubin Total 0.3 mg/dL (0.0-1.0); Blood Urea Nitrogen 17 mg/dL (9-16); Calcium 9.4 mg/dL (8.4-10.2); Carbon Dioxide 26 mmol/L (22-29); Chloride 102 mmol/L (96-108); Creatinine Clr Calc Pharmacy 59.8; Estimated Glomerular Filt Rate > 60; Glucose Random 131 mg/dL (60-115); Lipase 17 U/L (8-78); Potassium 4.7 mmol/L (3.3-5.1); Sodium 138 mmol/L (135-145); Total Protein 7.6 g/dL (6.5-8.0)
[2023-12-24 13:25] LABS: Troponin-I High Sensitivity 3.2 ng/L (<3.5-35.0)
[2023-12-24 13:28] LABS: B Type Natriuretic Peptide 77 pg/mL (<100)
[2023-12-24 13:31] LABS: SLIDE REVIEW VERIFIED
[2023-12-24 13:42] LABS: Lactic Acid 2.1 mmol/L (0.5-2.0)
--- NOTE | 2023-12-24 13:52 | PC.NURSE ---
Diflucan arrived from pharmacy at this time.
[2023-12-24] MEDS: Fluconazole in NaCl,Iso-Osm 200 MG/100 ML PIGGYBACK 100 MG IV (13:59)
[2023-12-24 14:54] LABS: Reflex Lactate? Lactic Acid Added
--- NOTE | 2023-12-24 15:04 | P.HPHOSP_ITS ---
History of Present Illness Date of Service: 12/24/23 Chief Complaint: Dyspnea, cough 83-year-old man presenting from long-term facility with 3 days of dyspnea and nonproductive cough. Patient has a history of bronchiectasis in his on baseline 3 L of oxygen via nasal cannula. He was recently discharged from [facility] on 12/21/2023. He was noted to have leukocytosis, tachycardia, tachypnea and lactic acidosis. Chest x-ray showing interval decrease an opacity at the left lung base otherwise extensive chronic bronchial disease without superimposed acute infectious process. He had the PICC line removed in the ER as this may be a possible source the septic shock. Blood pressures are better after IV fluids. He received IV vancomycin, Zosyn, Diflucan, Solu-Medrol, IV fluids in the ER. He will be admitted for further management and treatment of septic shock. Review of Systems 2 Review of Systems: Denies any recent fever chills or decrease in appetite respiratory aee HPI cardiovascular denied chest pain gastrointestinal denies any dysphagia abdominal pain nausea vomiting or diarrhea genitourinary denies any dysuria frequency or hematuria musculoskeletal denies any joint pain or swelling neuropsych denies any weakness or seizures all other systems reviewed are negative [facility] Medical History COPD (chronic obstructive pulmonary disease) Acute hypoxemic respiratory failure Hearing loss Chronic hypoxic respiratory failure Bronchiectasis NICM (nonischemic cardiomyopathy) Swallowing problem 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 Kidney stone on left side Paroxysmal atrial fibrillation Congestive heart failure Acute and chronic respiratory failure BPH loc w urin obs/LUTS Urinary retention History of COVID-19 Chronic anticoagulation History of pneumothorax Diabetes Supplemental oxygen dependent Kidney stone on left side JESSA (mycobacterium avium-intracellulare) Bronchiectasis Glaucoma Pure hypercholesterolemia GERD (gastroesophageal reflux disease) History of MAC infection Essential hypertension Family History Father No problems noted. Mother Medical history unknown Sister Diabetes Daughter In good health Son In good health Brother No problems noted. 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 Housing: Apartment Housing Other:: [facility] Are you a primary career development counselor to a significant other at home: No Do you presently have visiting nurse or other home services: Yes Alcohol intake: never Comment: 1:1 sitter in room Patient Tobacco Use Status: Former Tobacco user Tobacco use type: Cigarette Cigarette Packs Per Day: 1 Cigarettes Per Day: 20.0 e-Cigarette/Vaping Use: Former Use Second Hand Smoke Exposure: No Use of substances other than those prescribed or required for medical reasons: No Currently Displaying Signs/Symptoms of Drug Intoxication Withdrawal: No Advance Directives: Yes Advance Directives on File: Yes Advance Directives Date on File: 02/03/22 Do you have a plan to hurt others: No Plan service: No Current occupational status: retired Cognitive needs: No Hearing needs: Yes Vision needs: Yes Meds Allergies Allergy/AdvReac Type Severity Reaction Status Date / Time Penicillins [PENICILLINS] Allergy Intermediate PASSED Verified 12/24/23 12:20 OUT trazodone Allergy Intermediate tremors Verified 12/24/23 12:20 brimonidine [From Alphagan P] Allergy Unknown Verified 12/24/23 12:20 diphenhydramine Allergy Unknown Verified 12/24/23 12:20 [From Benadryl] Home Medications ?Medication ?Instructions ?Recorded ?Confirmed ?Last Taken ?Type albuterol sulfate 90 mcg/actuation 2 inh inhalation Q6H PRN Shortness 12/24/23 12/24/23 Unknown History aerosol inhaler (Ventolin HFA) Of Breath Or Wheezing apixaban 5 mg tablet (Eliquis) 5 mg PO BID 12/24/23 12/24/23 Unknown History bumetanide 1 mg tablet 1 mg PO DAILY 12/24/23 12/24/23 Unknown History carvedilol 6.25 mg tablet 6.25 mg PO BID 12/24/23 12/24/23 Unknown History finasteride 5 mg tablet 5 mg PO DAILY 12/24/23 12/24/23 Unknown History ipratropium 0.5 mg-albuterol 3 mg 3 ml inhalation QID PRN Shortness 12/24/23 12/24/23 Unknown History (2.5 mg base)/3 mL nebulization Of Breath Or Wheezing soln lovastatin 10 mg tablet 10 mg PO DAILY 12/24/23 12/24/23 Unknown History metformin 500 mg tablet 500 mg PO DAILY 12/24/23 12/24/23 Unknown History potassium chloride 10 mEq 10 meq PO DAILY 12/24/23 12/24/23 Unknown History tablet,extended release tamsulosin 0.4 mg capsule 0.4 mg PO DAILY 12/24/23 12/24/23 Unknown History umeclidinium 62.5 mcg-vilanterol 1 ea inhalation DAILY 12/24/23 12/24/23 Unknown History 25 mcg/actuation powdr for inhalation (Anoro Ellipta) Physical Exam 2 Vital Signs and Narrative: Vital Signs: Last Vital Signs Temp 97.6 F 12/24/23 14:28 Pulse 91 12/24/23 14:36 Resp 26 H 12/24/23 14:36 BP 158/70 H 12/24/23 14:36 Pulse Ox 100 12/24/23 14:36 O2 Del Method Oxymask 12/24/23 14:36 O2 Flow Rate 12 12/24/23 14:36 Oxygen Flow Rate 4 12/24/23 12:11 BMI result Body Mass Index 17.4 Appearing in no acute distress head is normocephalic atraumatic eyes pupils are PERRLA sclera is anicteric mouth throat mucous membranes are intact and moist neck is supple no lymphadenopathy, no JVD noted lung sounds are clear to auscultation heart regular rate rhythm, clear S1, S2 positive bowel sounds, abdomen is soft, nontender neuro patient is alert x3, no focal deficits Results Labs 12/25/23 05:53 12/25/23 05:53 Labs: Laboratory Results - last 24 hr 12/24/23 12/24/23 12:46 12:57 MCV 84.5 MCH 26.5 L MCHC 31.4 RDW 17.3 H Plt Count 357 MPV 8.7 L Immature Gran % (Auto) 0.7 H Neut % (Auto) 92.1 H Lymph % (Auto) 1.4 L Mower % (Auto) 3.4 Eos % (Auto) 2.1 Baso % (Auto) 0.3 Lymph # (Auto) 0.3 L Mower # (Auto) 0.7 Eos # (Auto) 0.5 H Baso # (Auto) 0.1 Abs Immat Gran (auto) 0.16 H Absolute Neuts (auto) 20.3 H Absolute Nucleated RBC 0.000 Nucleated RBC % (auto) 0.0 Smear Tech's Comments VERIFIED VBG pH 7.43 VBG pCO2 43 VBG pO2 51 VBG HCO3 29 H VBG O2 Saturation 77.0 VBG Base Excess 4.5 Anion Gap 15 Estim Creat Clear Calc 59.8 Estimated GFR > 60 Random Glucose 131 H Lactic Acid 2.1 H* Calcium 9.4 D Total Bilirubin 0.3 Direct Bilirubin 0.2 AST 31 ALT 21 Alkaline Phosphatase 79 Troponin I High Sens 3.2 B-Natriuretic Peptide 77 Total Protein 7.6 Albumin 2.7 L Lipase 17 Assessment and Plan (1) Septic shock: Status: Acute Plan 83-year-old man admitted with septic shock from unknown source at this time although he did present from the long-term facility with dyspnea and nonproductive cough. Septic shock Unknown source, could be lungs, also had recent ESBL UTI Leukocytosis, tachycardia, tachypnea, lactic acidosis, hypotension Treated with IV fluids in the ED with good rise of blood pressure Acute on chronic respiratory failure with history of Bronchiectases Noted hypoxia Continue supplemental oxygen to keep oxygen saturation greater than 90%, on 3 L baseline Chest x-ray showing interval decrease in the opacity at the left lung base without superimposed acute process, otherwise extensive chronic bronchial disease. Check respiratory pathogen panel Paroxysmal atrial fibrillation On Eliquis and beta-marika Nonischemic cardiomyopathy On carvedilol, Entresto and Bumex Diabetes mellitus Sliding scale, ADA diet DVT prophylaxis with apixaban Full code Quality Stroke Does the patient have a stroke diagnosis?: No VTE Prior VTE?: No VTE Risk Level:: Medical - moderate - high VTE Device Contraindication: N/A - Device Ordered VTE Drug Contraindication: Treatment Not Indicated
--- NOTE | 2023-12-24 15:23 | PC.NURSE ---
Lactic acid re-drawn by nurse Asia Mendosa. Results pending at this time.
[2023-12-24 15:28] LABS: ~Lactic Acid-LAB USE ONLY 1.7 mmol/L (0.5-2.0)
--- NOTE | 2023-12-24 15:48 | PHA.PROG ---
Admission Date/Time: December 24, 2023 15:27 Indication: Respiratory Infection Weight in k.9 kg Adjusted body weight in K.84 [place] body weight in K.8 Obesity Dosing Indication % IBW:underweight Serum Creatinine - Last 168 Hours 12/24/23 12:46 Creatinine 0.67 Estimated CrCl and GFR - Last 168 Hours 12/24/23 12:46 Estim Creat Clear Calc 59.8 Estimated GFR > 60 Vancomycin Loading Dose: 1250 Current Vancomycin Dosing Regimen: 750 mg Q12H Vancomycin Monitoring using AUC goal of 400 - 600 range with trough as surrogate marker: 570 Date and Time for next Vancomycin Level to be drawn: 12/24 @1100 Pharmacist Comments on Vancomycin Plan: Typically with a patient over 65 Q24H dosing is preferred however patient is underweight making Q24H dosing difficult as 1250 mg would be 25.6 mg/kg and 1000 mg would end up with a low AUC. Going with 750 Q12H and getting a level after load and 1 dose to ensure safety and efficacy as patients renal function could be inaccurate as patient is underweight with less muscle mass. Vancomycin dosing will take advantage of Kiip as a clinical decision support tool that uses Bayesian modeling to calculate individual patient's pharmacokinetic parameters and forecast the patient's drug concentration time course with the target goal AUC 24 range of 400 - 600 mg/L/hr.
--- NOTE | 2023-12-24 16:53 | PC.NURSE ---
BOY Mukherjee does not want 15:30 Adamo. given.
--- NOTE | 2023-12-24 18:29 | PHA.MEDREC ---
Pharmacy Consult ? Medication Reconciliation Pharmacy has completed the medication reconciliation. Called [facility] for med list, patient has not been there since August. Unable to reach patient's contact. Used claim history to complete reconciliation
[2023-12-24 21:44] LABS: Glucose, Whole Blood 237 mg/dL (60-115)
[2023-12-24] MEDS: Piperacillin Sodium/Tazobactam 3.375 GM in 0.9 % Sodium Chloride 50 ML IV (22:03)
[2023-12-24] MEDS: Insulin Lispro 100 UNIT/ML 3 ML VIAL SUBCUT (22:04)
[2023-12-24] MEDS: 0.9 % Sodium Chloride Flush 3 ML SYRINGE IVFLUSH (23:57)
[2023-12-25] VITALS (7 sets, daily range): BP systolic 104–122; BP diastolic 51–63; PULSE 74–87; RESP 16–20; TEMP 36.2–37.4; O2SAT 98–100; BMI 17.1
[2023-12-25] MEDS: vancomycin HCL 750 MG in 0.9 % Sodium Chloride 250 ML 265 MG IV ×2 (01:00→16:39)
[2023-12-25] MEDS: Piperacillin Sodium/Tazobactam 3.375 GM in 0.9 % Sodium Chloride 50 ML IV ×4 (02:15→22:27)
[2023-12-25] MEDS: Loratadine 10 MG TABLET PO (02:45)
[2023-12-25] MEDS: Acetaminophen 325 MG TABLET 650 MG PO (02:45)
[2023-12-25 06:48] LABS: Hematocrit 29.3 % (42.0-52.0); Mean Corpuscular HGB Conc 30.7 g/dl (31.0-36.0); Mean Corpuscular Hemoglobin 26.6 pg (27.0-33.0); Mean Corpuscular Volume 86.7 fL (80.0-98.0); Mean Platelet Volume 9.2 fL (9.4-12.4); Platelet Count 298 X10*3/uL (160-400); Red Blood Count 3.38 X10*6/uL (4.60-5.80); White Blood Count 9.9 X10*3/uL (4.8-10.8)
[2023-12-25 07:06] LABS: Alanine Aminotransferase 20 U/L (0-40); Albumin Level 2.6 g/dL (3.5-5.0); Alkaline Phosphatase 58 U/L (39-117); Anion Gap 11 (12-20); Aspartate Amino Transferase 23 U/L (5-37); Bilirubin Total 0.2 mg/dL (0.0-1.0); Blood Urea Nitrogen 13 mg/dL (9-16); Calcium 8.7 mg/dL (8.4-10.2); Carbon Dioxide 26 mmol/L (22-29); Chloride 105 mmol/L (96-108); Creatinine Clr Calc Pharmacy 60.5; Creatinine Clr Calc Pharmacy 61.4; Estimated Glomerular Filt Rate > 60; Glucose Random 126 mg/dL (60-115); Potassium 4.1 mmol/L (3.3-5.1); Sodium 138 mmol/L (135-145); Total Protein 7.2 g/dL (6.5-8.0)
[2023-12-25 08:06] LABS: Glucose, Whole Blood 122 mg/dL (60-115)
--- NOTE | 2023-12-25 08:16 | HO.PM.IMPN ---
Subjective Subjective Date of Service: 12/25/23 Interval History: Seen and examined this morning Follow-up for weakness, UTI, septic shock Patient reporting shortness of breath No abdominal pain, nausea, vomiting Review of Systems Review of Systems: Yes all other systems are reviewed and are negative Constitutional Constitutional: Denies chills and Denies fever(s) ENT Ears, Nose, Mouth, and Throat: Denies dizziness Cardiovascular Cardiovascular: Denies chest pain, Denies palpitations and Reports dyspnea Respiratory Respiratory: Reports cough and Reports dyspnea Neurologic Neurologic: Denies dizziness Endocrine Endocrine: Denies palpitations Physical Exam Vital Signs: Vital Signs: Last Vital Signs Temp 97.4 F 12/25/23 07:32 Pulse 78 12/25/23 07:32 Resp 20 12/25/23 07:32 BP 118/59 L 12/25/23 07:32 Pulse Ox 100 12/25/23 07:32 O2 Del Method Oxymask 12/25/23 07:32 O2 Flow Rate 10 12/25/23 07:32 Oxygen Flow Rate 4 12/24/23 12:11 BMI result Body Mass Index 17.1 Appearing in no acute distress lung sounds are clear to auscultation heart regular rate rhythm, clear S1, S2 positive bowel sounds, abdomen is soft, nontender neuro patient is alert x3, no focal deficits Objective Data Active Medications Acetaminophen (Acetaminophen 325 Mg Tablet) 650 mg PO Q6H PRN PRN Reason: Pain, Mild (Pain Scale 1-3), fever or headache Last Admin: 12/25/23 02:45 Dose: 650 mg Documented By: HAYLEY Calcium Carbonate (Calcium Carbonate 750 Mg Tab.Chew) 750 mg PO Q4H PRN PRN Reason: Heartburn Glucose (Glucose Gel 15 Gm Gel..Gram.) 15 gm PO Q15M PRN; Protocol PRN Reason: per Hypoglycemia Standing Ord. Piperacillin Sod/Tazobactam (Sod 3.375 gm/ Sodium Chloride) 50 mls @ 100 mls/hr IV Q6H [facility] Last Infusion: 12/25/23 03:23 Dose: Infused Documented By: HAYLEY Fluconazole 100 mg/ IV (Miscellaneous Supplies) 50 mls @ 50 mls/hr IV Q24H TON Vancomycin HCl 750 mg/ Sodium (Chloride) 265 mls @ 265 mls/hr IV Q12H [facility] Last Infusion: 12/25/23 03:24 Dose: Infused Documented By: HAYLEY Dextrose ([id number]) 250 mls @ 750 mls/hr IV Q15M PRN; Protocol PRN Reason: per Hypoglycemia Standing Ord. Insulin Human Lispro (Insulin Lispro 100 Unit/Ml 3 Ml Vial) 0 unit SUBCUT QIDACHS [facility]; Protocol Last Admin: 12/24/23 22:04 Dose: 4 unit Documented By: HAYLEY Magnesium Hydroxide (Milk Of Magnesia 30 Ml Oral.Susp) 30 ml PO DAILY PRN PRN Reason: Constipation Melatonin (Melatonin 3 Mg Tablet) 6 mg PO BEDTIME PRN PRN Reason: Insomnia Pharmacy Consult (Consult Rx Vancomycin Dosing) 1 each MISCELLANE DAILY PRN PRN Reason: Consult order Sodium Chloride (0.9 % Sodium Chloride Flush 3 Ml Syringe) 3 ml IVFLUSH [facility] Last Admin: 12/24/23 23:57 Dose: 3 ml Documented By: HAYLEY Labs 12/25/23 05:53 12/25/23 05:53 Labs: Laboratory Results - last 24 hr 12/24/23 12/24/23 12/24/23 12:46 12:57 15:11 MCV 84.5 MCH 26.5 L MCHC 31.4 RDW 17.3 H Plt Count 357 MPV 8.7 L Immature Gran % (Auto) 0.7 H Neut % (Auto) 92.1 H Lymph % (Auto) 1.4 L Whitman % (Auto) 3.4 Eos % (Auto) 2.1 Baso % (Auto) 0.3 Lymph # (Auto) 0.3 L Whitman # (Auto) 0.7 Eos # (Auto) 0.5 H Baso # (Auto) 0.1 Abs Immat Gran (auto) 0.16 H Absolute Neuts (auto) 20.3 H Absolute Nucleated RBC 0.000 Nucleated RBC % (auto) 0.0 Smear Tech's Comments VERIFIED VBG pH 7.43 VBG pCO2 43 VBG pO2 51 VBG HCO3 29 H VBG O2 Saturation 77.0 VBG Base Excess 4.5 Anion Gap 15 Estim Creat Clear Calc 59.8 Estimated GFR > 60 POC Glucose Random Glucose 131 H Lactic Acid 2.1 H* Lactic Acid F/U @ 2Hr 1.7 Calcium 9.4 D Total Bilirubin 0.3 Direct Bilirubin 0.2 AST 31 ALT 21 Alkaline Phosphatase 79 Troponin I High Sens 3.2 B-Natriuretic Peptide 77 Total Protein 7.6 Albumin 2.7 L Lipase 17 12/24/23 12/25/23 12/25/23 21:25 05:53 05:53 MCV 86.7 MCH 26.6 L MCHC 30.7 L RDW 17.0 H Plt Count 298 MPV 9.2 L Immature Gran % (Auto) Neut % (Auto) Lymph % (Auto) Whitman % (Auto) Eos % (Auto) Baso % (Auto) Lymph # (Auto) Whitman # (Auto) Eos # (Auto) Baso # (Auto) Abs Immat Gran (auto) Absolute Neuts (auto) Absolute Nucleated RBC 0.000 Nucleated RBC % (auto) 0.0 Smear Tech's Comments VBG pH VBG pCO2 VBG pO2 VBG HCO3 VBG O2 Saturation VBG Base Excess Anion Gap 11 L Estim Creat Clear Calc 60.5 61.4 Estimated GFR > 60 POC Glucose 237 H Random Glucose Lactic Acid Lactic Acid F/U @ 2Hr Calcium Total Bilirubin Direct Bilirubin AST ALT Alkaline Phosphatase Troponin I High Sens B-Natriuretic Peptide Total Protein Albumin Lipase 12/25/23 12/25/23 05:53 07:36 MCV MCH MCHC RDW Plt Count MPV Immature Gran % (Auto) Neut % (Auto) Lymph % (Auto) Whitman % (Auto) Eos % (Auto) Baso % (Auto) Lymph # (Auto) Whitman # (Auto) Eos # (Auto) Baso # (Auto) Abs Immat Gran (auto) Absolute Neuts (auto) Absolute Nucleated RBC Nucleated RBC % (auto) Smear Tech's Comments VBG pH VBG pCO2 VBG pO2 VBG HCO3 VBG O2 Saturation VBG Base Excess Anion Gap Estim Creat Clear Calc Estimated GFR > 60 POC Glucose 122 H Random Glucose 126 H Lactic Acid Lactic Acid F/U @ 2Hr Calcium 8.7 D Total Bilirubin 0.2 Direct Bilirubin AST 23 ALT 20 Alkaline Phosphatase 58 Troponin I High Sens B-Natriuretic Peptide Total Protein 7.2 Albumin 2.6 L Lipase Microbiology Microbiology Results: Microbiology 12/24/23 12:45 Blood Culture - Preliminary Blood - Central Line Prelim: GPC Gram Stain only Assessment and Plan (1) Septic shock: Status: Acute Plan 83-year-old man admitted with septic shock from unknown source at this time although [facility] with dyspnea and nonproductive cough. Septic shock Unknown source, could be lungs, also had recent ESBL UTI Leukocytosis, tachycardia, tachypnea, lactic acidosis, hypotension Treated with IV fluids in the ED with good rise of blood pressure GPC bacteremia from picc line (pulled in ED) continue vancomycin, fluconazole, Zosyn ID following Acute on chronic respiratory failure with history of Bronchiectases Noted hypoxia Continue supplemental oxygen to keep oxygen saturation greater than 90%, on 3 L baseline Chest x-ray showing interval decrease in the opacity at the left lung base without superimposed acute process, otherwise extensive chronic bronchial disease. respiratory pathogen panel negative Paroxysmal atrial fibrillation On Eliquis and beta-marika Nonischemic cardiomyopathy On carvedilol, Entresto and Bumex Diabetes mellitus Sliding scale, ADA diet DVT prophylaxis with apixaban Attending Dr. Butt Full code Quality Stroke Does the patient have a stroke diagnosis?: No VTE Prior VTE?: No VTE Risk Level:: Medical - moderate - high VTE Device Contraindication: Treatment Not Indicated VTE Drug Contraindication: N/A - Med Ordered
[2023-12-25] MEDS: 0.9 % Sodium Chloride Flush 3 ML SYRINGE IVFLUSH ×2 (09:32→16:45)
[2023-12-25] MEDS: Fluconazole in NaCl,Iso-Osm 100 MG in Container,Empty 0 ML 50 MG IV (09:32)
--- NOTE | 2023-12-25 11:14 | MHC.CLN ---
RE: CONSULT PT IS MODERATELY MALNOURISHED PT WITH MILDLY DEPLETED SUBCUTANEOUS FAT AND MUSCLE MASS AND PT TRIGGERS FOR 14% SIGNIFICANT WT LOSS X 6 MONTHS. PT WITH INCREASED NUTRITION RISK R/T PRESSURE INJURY. NOTED MULTIPLE WT DISCREPANCIES IN PREVIOUS WT HX. RECOMMEND DAILY WTS TO ESTABLISH BASELINE WT PT FAMILIAR TO FACILITY AND PREVIOUSLY ASSESSED 12/20/23 DIET RX: 1800DM-DIET WILL MEET PT'S NEEDS AND PROMOTE SLOW WT GAIN WILL ADD ENSURE MAX BID TO INCREASE KCALS AND PROMOTE WOUND HEALING SUPP TO PROVIDE 300KCALS, 60G PROTEIN MONITOR PO INTAKE AND ENCOURAGE SUPPLEMENTS SEE ALSO FULL CLINICAL NUTRITION ASSESSMENT
--- NOTE | 2023-12-25 11:22 | MHC.CM.PN ---
A clinical update has been sent to the SNF. A PT evaluation was performed today. The recommendation is for STR. The facility has initiated insurance authorization. DP return to [facility] via BLS.
[2023-12-25 11:36] LABS: Adenovirus PCR Not Detected (Not Detect.); Bordetella parapertussis PCR Not Detected (Not Detect.); Bordetella pertussis PCR Not Detected (Not Detect.); Chlamydia pneumoniae PCR Not Detected (Not Detect.); Coronavirus 229E PCR Not Detected (Not Detect.); Coronavirus HKU1 PCR Not Detected (Not Detect.); Coronavirus NL63 PCR Not Detected (Not Detect.); Coronavirus OC43 PCR Not Detected (Not Detect.); Human metapneumovirus PCR Not Detected (Not Detect.); Influenza A PCR Not Detected (Not Detect.); Influenza B PCR Not Detected (Not Detect.); Mycoplasma pneumoniae PCR Not Detected (Not Detect.); Parainfluenza 1 PCR Not Detected (Not Detect.); Parainfluenza 2 PCR Not Detected (Not Detect.); Parainfluenza 3 PCR Not Detected (Not Detect.); Parainfluenza 4 PCR Not Detected (Not Detect.); RSV PCR Not Detected (Not Detect.); Rhino/Enterovirus PCR Not Detected (Not Detect.)
[2023-12-25 11:56] LABS: SARS-CoV-2 PCR Not Detected (Not Detect.)
[2023-12-25 12:00] LABS: Vancomycin Random 12.6 mcg/mL (15-20)
[2023-12-25 12:03] LABS: Glucose, Whole Blood 165 mg/dL (60-115)
--- NOTE | 2023-12-25 12:28 | HO.WOUND ---
Wound Consult: Initial 83yr old?male admitted to [facility] on 12/24/23 - See progress notes and H&P for detailed history.? Wound consult placed for sacral wound POA.? Patient agreeable to assessment and photo documentation.? Sacrum Etiology: Unstageable pressure Injury ??Present on Admission Measurements: 0.4cm x 0.5cm x 0.2cm Wound Bed: white yellow slough adherent to wound bed Drainage / Odor: none noted Edges: ? unattached Hallie wound: MASD noted to intergluteal fold - pink erythema and hyperpigmentation - No Induration, Fluctuance or Warmth noted Pain: tenderness reported Goals of Treatment: ? Triad and foam dressing Recommendations: 1. Turn and Reposition every 2 hours and as needed for patient comfort.? Use pillows or wedges to support off loading positions. 2. Off Load all bony prominences with use of pillows and heel boots if needed.? Apply Preventative foams where needed. ? 3. Monitor for incontinence and moisture control, use barrier creams when needed for prevention and treatment. 4. Provide adequate and supplemental nutrition.? 5. Order low air loss mattress. 6. When applicable maintain blood glucose levels per Providers order. 7. Sacrum - Off Load Pressure? - Cleanse with PH balance spray or wipes, pat dry. ?Apply thin layer of Triad to wound bed. Do not remove all of paste between applications as this may cause further skin damage.? Cover with foam dressing to aid in off loading and protection from friction. Change every 5 days and PRN. Re-consult wound care Nurse for wound deterioration or wound changes.
--- NOTE | 2023-12-25 13:03 | MHC.CM.PN ---
IMM 12/25/23 Male 83 DX Septic Shock Patient CHANDRAKANT from [facility]. He was discharged to [facility] 12/21/23 for LT IV ABX. Patient returns with Septic Shock 12/24/23. A PT eval recommends STR. A clinical update and PT eval have been sent to the STR. They have initiated the insurance authorization process. Information for CM assessment was obtained from record review, patient and the patients HCP. DP return to [facility] via BLS.
--- NOTE | 2023-12-25 14:55 | W.PM.IDCN ---
History of Present Illness Data of Consult Service Date: 12/25/23 Requesting physician: Chrissy Lopez Primary Care Provider: Olga Calzada MD HPI Reason for consult: bacteremia from line He presents from facility receiving Ertapenem for ESBL UTI. He has respiratory failure and been ICU. He has gram stain from pulled PICC gram positive cocci. Blood culture pending. Review of Systems Review of Systems: Yes all other systems are reviewed and are negative PMFSH Past Medical History Medical History Bronchiectasis COPD (chronic obstructive pulmonary disease) Acute hypoxemic respiratory failure Hearing loss Chronic hypoxic respiratory failure Bronchiectasis NICM (nonischemic cardiomyopathy) Swallowing problem 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 Kidney stone on left side Paroxysmal atrial fibrillation Congestive heart failure Acute and chronic respiratory failure BPH loc w urin obs/LUTS Urinary retention History of COVID-19 Chronic anticoagulation History of pneumothorax Diabetes Supplemental oxygen dependent Kidney stone on left side JESSA (mycobacterium avium-intracellulare) Bronchiectasis Glaucoma Pure hypercholesterolemia GERD (gastroesophageal reflux disease) History of MAC infection Essential hypertension Family History Family History Father No problems noted. Mother Medical history unknown Sister Diabetes Daughter In good health Son In good health Brother No problems noted. 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 Housing: Apartment Housing Other:: Gianluca Mack Are you a primary customer care voice consultant to a significant other at home: No Do you presently have visiting nurse or other home services: Yes Alcohol intake: never Comment: 1:1 sitter in room Patient Tobacco Use Status: Former Tobacco user Tobacco use type: Cigarette Cigarette Packs Per Day: 1 Cigarettes Per Day: 20.0 e-Cigarette/Vaping Use: Former Use Second Hand Smoke Exposure: No Use of substances other than those prescribed or required for medical reasons: No Currently Displaying Signs/Symptoms of Drug Intoxication Withdrawal: No Advance Directives: Yes Advance Directives on File: Yes Advance Directives Date on File: 02/03/22 Do you have a plan to hurt others: No Plan service: No Current occupational status: retired Cognitive needs: No Hearing needs: Yes Vision needs: Yes Meds Allergies Allergy/AdvReac Type Severity Reaction Status Date / Time Penicillins [PENICILLINS] Allergy Intermediate PASSED Verified 12/24/23 12:20 OUT trazodone Allergy Intermediate tremors Verified 12/24/23 12:20 brimonidine [From Alphagan P] Allergy Unknown Verified 12/24/23 12:20 diphenhydramine Allergy Unknown Verified 12/24/23 12:20 [From Benadryl] Active Medications: Current Medications Acetaminophen (Acetaminophen 325 Mg Tablet) 650 mg PO Q6H PRN PRN Reason: Pain, Mild (Pain Scale 1-3), fever or headache Last Admin: 12/25/23 02:45 Dose: 650 mg Calcium Carbonate (Calcium Carbonate 750 Mg Tab.Chew) 750 mg PO Q4H PRN PRN Reason: Heartburn Glucose (Glucose Gel 15 Gm Gel..Gram.) 15 gm PO Q15M PRN; Protocol PRN Reason: per Hypoglycemia Standing Ord. Piperacillin Sod/Tazobactam (Sod 3.375 gm/ Sodium Chloride) 50 mls @ 100 mls/hr IV Q6H [facility] Last Infusion: 12/25/23 10:32 Dose: Infused Fluconazole 100 mg/ IV (Miscellaneous Supplies) 50 mls @ 50 mls/hr IV Q24H [facility] Last Infusion: 12/25/23 10:34 Dose: Infused Vancomycin HCl 750 mg/ Sodium (Chloride) 265 mls @ 265 mls/hr IV Q12H [facility] Last Infusion: 12/25/23 03:24 Dose: Infused Dextrose (D10) 250 mls @ 750 mls/hr IV Q15M PRN; Protocol PRN Reason: per Hypoglycemia Standing Ord. Insulin Human Lispro (Insulin Lispro 100 Unit/Ml 3 Ml Vial) 0 unit SUBCUT QIDACHS [facility]; Protocol Last Admin: 12/25/23 13:29 Dose: Not Given Magnesium Hydroxide (Milk Of Magnesia 30 Ml Oral.Susp) 30 ml PO DAILY PRN PRN Reason: Constipation Melatonin (Melatonin 3 Mg Tablet) 6 mg PO BEDTIME PRN PRN Reason: Insomnia Pharmacy Consult (Consult Rx Vancomycin Dosing) 1 each MISCELLANE DAILY PRN PRN Reason: Consult order Sodium Chloride (0.9 % Sodium Chloride Flush 3 Ml Syringe) 3 ml IVFLUSH QSHIFT [facility] Last Admin: 12/25/23 09:32 Dose: 3 ml Home Medications ?Medication ?Instructions ?Recorded ?Confirmed ?Last Taken ?Type albuterol sulfate 90 mcg/actuation 2 inh inhalation Q6H PRN Shortness 12/24/23 12/24/23 Unknown History aerosol inhaler (Ventolin HFA) Of Breath Or Wheezing apixaban 5 mg tablet (Eliquis) 5 mg PO BID 12/24/23 12/24/23 Unknown History bumetanide 1 mg tablet 1 mg PO DAILY 12/24/23 12/24/23 Unknown History carvedilol 6.25 mg tablet 6.25 mg PO BID 12/24/23 12/24/23 Unknown History finasteride 5 mg tablet 5 mg PO DAILY 12/24/23 12/24/23 Unknown History ipratropium 0.5 mg-albuterol 3 mg 3 ml inhalation QID PRN Shortness 12/24/23 12/24/23 Unknown History (2.5 mg base)/3 mL nebulization Of Breath Or Wheezing soln lovastatin 10 mg tablet 10 mg PO DAILY 12/24/23 12/24/23 Unknown History metformin 500 mg tablet 500 mg PO DAILY 12/24/23 12/24/23 Unknown History potassium chloride 10 mEq 10 meq PO DAILY 12/24/23 12/24/23 Unknown History tablet,extended release tamsulosin 0.4 mg capsule 0.4 mg PO DAILY 12/24/23 12/24/23 Unknown History umeclidinium 62.5 mcg-vilanterol 1 ea inhalation DAILY 12/24/23 12/24/23 Unknown History 25 mcg/actuation powdr for inhalation (Anoro Ellipta) Physical Exam Vital Signs: Vital Signs: Last Vital Signs Temp 97.7 F 12/25/23 11:25 Pulse 82 12/25/23 11:25 Resp 20 12/25/23 11:25 BP 122/63 12/25/23 11:25 Pulse Ox 100 12/25/23 11:25 O2 Del Method Oxymask 12/25/23 11:25 O2 Flow Rate 10 12/25/23 11:25 Oxygen Flow Rate 4 12/24/23 12:11 BMI result Body Mass Index 17.1 Const: General: cooperative HEENT: Head: Yes normal to inspection Face and sinus: Yes normal facial exam Mouth: Normal oral and palatal mucosa present Teeth and gingiva: dentition normal Eyes: General: appearance normal, both eyes and all related structures Pupils: Equal, round and reactive pupils present Resp: Effort & Inspection: normal respiratory effort Cardio: Rate: regular rate Rhythm: regular rhythm GI: Palpation (GI): Soft to palpation and nontender : General: Yes no CVA tenderness Back/Spine/Pelvis: Back: no CVA tenderness Skin: General skin exam: no rashes or lesions noted Neuro: General: moves all extremities Cranial nerves: Yes Equal, round and reactive pupils present Extrem: General: Yes normal to inspection Psych: Appearance: grossly normal Results Labs 12/25/23 05:53 12/25/23 05:53 Labs: Short CBC 12/25/23 Range/Units 05:53 WBC 9.9 (4.8-10.8) X10*3/uL Hgb 9.0 L (14.0-18.0) g/dl Hct 29.3 L (42.0-52.0) % Plt Count 298 (160-400) X10*3/uL BMP 12/25/23 12/25/23 05:53 05:53 Sodium 138 Potassium 4.1 Chloride 105 Carbon Dioxide 26 BUN 13 Creatinine 0.65 0.64 Calcium 8.7 D Liver Function 12/25/23 Range/Units 05:53 Total Bilirubin 0.2 (0.0-1.0) mg/dL AST 23 (5-37) U/L ALT 20 (0-40) U/L Alkaline Phosphatase 58 (39-117) U/L Albumin 2.6 L (3.5-5.0) g/dL Microbiology Microbiology Results: Microbiology 12/24/23 12:46 Blood - Venous Blood Culture - Preliminary No growth after 24 hours. 12/24/23 12:45 Blood - Central Line Blood Culture - Preliminary Prelim: GPC Gram Stain only Assessment and Plan (1) Septic shock: Status: Acute (2) Urinary tract infection due to extended-spectrum beta lactamase (ESBL) producing Escherichia coli: Status: Acute (3) Weakness: Status: Acute (4) UTI due to extended-spectrum beta lactamase (ESBL) producing Escherichia coli: Status: Acute Plan Gram positive may just be line. BLood cultures pending. PICC is out He has had ESBL UTI. Stop Diflucan. Continud Vancomycin and Zosyn Await cultures. Consider echo if not done.
[2023-12-25 15:16] LABS: Appearance Urine Turbid; Color Urine Yellow; Glucose Urine UA Negative (Negative); Nitrite Urine Negative (Negative); Specific Gravity - Urine 1.025 (1.005-1.025); UMIC TRIGGER UACC YES; Urine Blood Moderate (2+) (Negative); Urine Ketones Negative (Negative); Urine Protein 30 (1+) mg/dL (Neg-Trace)
[2023-12-25 15:17] LABS: Leukocyte Esterase Urine Large (3+) (Negative)
[2023-12-25 15:24] LABS: Squamous Epithelial Cell Urine 0-2 /HPF (0-2); UACC Culture Trigger YES; WBC Urine >50 /HPF (0-5)
[2023-12-25 15:25] LABS: Bacteria Urine None Seen (None Seen); Calcium Oxalate Crystals Urine Present; Hyaline Casts Urine 0-2 /LPF (0-2)
[2023-12-25 15:26] LABS: Other Crystals Urine Present
[2023-12-25 16:30] LABS: Glucose, Whole Blood 119 mg/dL (60-115)
[2023-12-25 21:23] LABS: Glucose, Whole Blood 116 mg/dL (60-115)
[2023-12-26 03:54] VITALS: BP 121/56; PULSE 78; RESP 20; TEMP 36.4; O2SAT 100
[2023-12-26] MEDS: Piperacillin Sodium/Tazobactam 3.375 GM in 0.9 % Sodium Chloride 50 ML IV ×4 (04:08→22:40)
[2023-12-26] MEDS: vancomycin HCL 750 MG in 0.9 % Sodium Chloride 250 ML 265 MG IV (05:06)
[2023-12-26 07:25] LABS: Creatinine Clr Calc Pharmacy 65.5; Estimated Glomerular Filt Rate > 60
--- NOTE | 2023-12-26 07:26 | HO.PM.IMPN ---
Subjective Subjective Date of Service: 12/26/23 Interval History: Seen and examined this morning Follow-up for weakness, UTI, septic shock Patient reporting shortness of breath but chronic No abdominal pain, nausea, vomiting Review of Systems Review of Systems: Yes all other systems are reviewed and are negative Constitutional Constitutional: Denies chills and Denies fever(s) ENT Ears, Nose, Mouth, and Throat: Denies dizziness Cardiovascular Cardiovascular: Denies chest pain, Denies palpitations and Reports dyspnea Respiratory Respiratory: Reports cough and Reports dyspnea Neurologic Neurologic: Denies dizziness Endocrine Endocrine: Denies palpitations Physical Exam Vital Signs: Vital Signs: Last Vital Signs Temp 97.5 F 12/26/23 03:54 Pulse 78 12/26/23 03:54 Resp 20 12/26/23 03:54 BP 121/56 L 12/26/23 03:54 Pulse Ox 100 12/26/23 03:54 O2 Del Method Oxymask 12/26/23 03:54 O2 Flow Rate 10 12/26/23 03:54 Oxygen Flow Rate 4 12/24/23 12:11 BMI result Body Mass Index 17.1 Appearing in no acute distress lung sounds are clear to auscultation heart regular rate rhythm, clear S1, S2 positive bowel sounds, abdomen is soft, nontender neuro patient is alert x3, no focal deficits Objective Data Active Medications Acetaminophen (Acetaminophen 325 Mg Tablet) 650 mg PO Q6H PRN PRN Reason: Pain, Mild (Pain Scale 1-3), fever or headache Last Admin: 12/25/23 02:45 Dose: 650 mg Documented By: HAYLEY Calcium Carbonate (Calcium Carbonate 750 Mg Tab.Chew) 750 mg PO Q4H PRN PRN Reason: Heartburn Glucose (Glucose Gel 15 Gm Gel..Gram.) 15 gm PO Q15M PRN; Protocol PRN Reason: per Hypoglycemia Standing Ord. Fluconazole 100 mg/ IV (Miscellaneous Supplies) 50 mls @ 50 mls/hr IV Q24H [facility] Last Infusion: 12/25/23 10:34 Dose: Infused Documented By: BHAVYA Dextrose (D10) 250 mls @ 750 mls/hr IV Q15M PRN; Protocol PRN Reason: per Hypoglycemia Standing Ord. Piperacillin Sod/Tazobactam (Sod 3.375 gm/ Sodium Chloride) 50 mls @ 100 mls/hr IV Q6H [facility] Last Infusion: 12/26/23 04:38 Dose: Infused Documented By: NAUN Vancomycin HCl 750 mg/ Sodium (Chloride) 265 mls @ 265 mls/hr IV Q12H [facility] Last Infusion: 12/26/23 07:11 Dose: Infused Documented By: MICHELLE Insulin Human Lispro (Insulin Lispro 100 Unit/Ml 3 Ml Vial) 0 unit SUBCUT QIDACHS [facility]; Protocol Last Admin: 12/25/23 22:14 Dose: Not Given Documented By: NAUN Non-Admin Reason: na Magnesium Hydroxide (Milk Of Magnesia 30 Ml Oral.Susp) 30 ml PO DAILY PRN PRN Reason: Constipation Melatonin (Melatonin 3 Mg Tablet) 6 mg PO BEDTIME PRN PRN Reason: Insomnia Pharmacy Consult (Consult Rx Vancomycin Dosing) 1 each MISCELLANE DAILY PRN PRN Reason: Consult order Sodium Chloride (0.9 % Sodium Chloride Flush 3 Ml Syringe) 3 ml IVFLUSH QSHIFT [facility] Last Admin: 12/26/23 07:10 Dose: Not Given Documented By: MICHELLE Non-Admin Reason: Previously Administered Labs 12/25/23 05:53 12/26/23 06:31 Labs: Laboratory Results - last 24 hr 12/24/23 12/25/23 12/25/23 18:12 07:36 11:13 Hold Purple Top Estim Creat Clear Calc Estimated GFR POC Glucose 122 H Urine Color Urine Appearance Urine pH Ur Specific [place] Urine Protein Urine Glucose (UA) Urine Ketones Urine Blood Urine Nitrite Ur Leukocyte Esterase Urine RBC Urine WBC Ur Squamous Epith Cells Calcium Oxalate Crystal Other Crystals Urine Bacteria Hyaline Casts Random Vancomycin 12.6 L Respiratory Panel [place] See Note Adenovirus (Rapid PCR) Not Detected B.pert (TEM-PCR) Not Detected B.parapertussis DNA PCR Not Detected C. pneumoniae DNA (PCR) Not Detected Coronavirus OC43 (PCR) Not Detected Coronavirus HKU1 (PCR) Not Detected Coronavirus 229E (PCR) Not Detected Coronavirus NL63 (PCR) Not Detected Human Metapneumovir PCR Not Detected Influenza A (RT-PCR) Not Detected Influenza B (RT-PCR) Not Detected M. pneumoniae (PCR) Not Detected Parainfluenza 1 (PCR) Not Detected Parainfluenza 2 (PCR) Not Detected Parainfluenza 3 (PCR) Not Detected Parainfluenza 4 (PCR) Not Detected RSV (PCR) Not Detected Entero/Rhino (PCR) Not Detected SARS-CoV-2 RNA (RT-PCR) Not Detected 12/25/23 12/25/23 12/25/23 11:23 11:45 15:46 Hold Purple Top Estim Creat Clear Calc Estimated GFR POC Glucose 165 H 119 H Urine Color Yellow Urine Appearance Turbid Urine pH 6.0 Ur Specific [place] 1.025 Urine Protein 30 (1+) H Urine Glucose (UA) Negative Urine Ketones Negative Urine Blood Moderate (2+) H Urine Nitrite Negative Ur Leukocyte Esterase Large (3+) H Urine RBC 3-5 H Urine WBC >50 H Ur Squamous Epith Cells 0-2 Calcium Oxalate Crystal Present Other Crystals Present Urine Bacteria None Seen Hyaline Casts 0-2 Random Vancomycin Respiratory Panel [place] Adenovirus (Rapid PCR) B.pert (TEM-PCR) B.parapertussis DNA PCR C. pneumoniae DNA (PCR) Coronavirus OC43 (PCR) Coronavirus HKU1 (PCR) Coronavirus 229E (PCR) Coronavirus NL63 (PCR) Human Metapneumovir PCR Influenza A (RT-PCR) Influenza B (RT-PCR) M. pneumoniae (PCR) Parainfluenza 1 (PCR) Parainfluenza 2 (PCR) Parainfluenza 3 (PCR) Parainfluenza 4 (PCR) RSV (PCR) Entero/Rhino (PCR) SARS-CoV-2 RNA (RT-PCR) 12/25/23 12/26/23 21:19 06:31 Hold Purple Top SEE NOTE Estim Creat Clear Calc 65.5 Estimated GFR > 60 POC Glucose 116 H Urine Color Urine Appearance Urine pH Ur Specific [place] Urine Protein Urine Glucose (UA) Urine Ketones Urine Blood Urine Nitrite Ur Leukocyte Esterase Urine RBC Urine WBC Ur Squamous Epith Cells Calcium Oxalate Crystal Other Crystals Urine Bacteria Hyaline Casts Random Vancomycin Respiratory Panel [place] Adenovirus (Rapid PCR) B.pert (TEM-PCR) B.parapertussis DNA PCR C. pneumoniae DNA (PCR) Coronavirus OC43 (PCR) Coronavirus HKU1 (PCR) Coronavirus 229E (PCR) Coronavirus NL63 (PCR) Human Metapneumovir PCR Influenza A (RT-PCR) Influenza B (RT-PCR) M. pneumoniae (PCR) Parainfluenza 1 (PCR) Parainfluenza 2 (PCR) Parainfluenza 3 (PCR) Parainfluenza 4 (PCR) RSV (PCR) Entero/Rhino (PCR) SARS-CoV-2 RNA (RT-PCR) Microbiology Microbiology Results: Microbiology 12/24/23 12:57 Blood Culture - Preliminary Blood - Venous No growth after 24 hours. 12/24/23 12:46 Blood Culture - Preliminary Blood - Venous No growth after 24 hours. 12/24/23 12:45 Blood Culture - Preliminary Blood - Central Line Prelim: GPC Gram Stain only Assessment and Plan (1) Septic shock: Status: Acute Plan 83-year-old man admitted with septic shock from unknown source at this time although he did present from the senior living facility with dyspnea and nonproductive cough. Septic shock. Resolved positive ua Leukocytosis, tachycardia, tachypnea, lactic acidosis, hypotension Treated with IV fluids in the ED with good rise of blood pressure GPC bacteremia from picc line (pulled in ED), continue vancomycin, fluconazole, Zosyn until cx finalized ID following UTI continue zosyn follow urine cx Acute on chronic respiratory failure with history of Bronchiectases Noted hypoxia, now seems to be baseline Continue supplemental oxygen to keep oxygen saturation greater than 90%, on 3 L baseline Chest x-ray showing interval decrease in the opacity at the left lung base without superimposed acute process, otherwise extensive chronic bronchial disease. respiratory pathogen panel negative Paroxysmal atrial fibrillation On Eliquis and beta-marika Nonischemic cardiomyopathy On carvedilol, Entresto and Bumex Diabetes mellitus Sliding scale, ADA diet DVT prophylaxis with apixaban Attending Dr. Butt Full code Quality Stroke Does the patient have a stroke diagnosis?: No VTE Prior VTE?: No VTE Risk Level:: Medical - moderate - high VTE Device Contraindication: N/A - Device Ordered VTE Drug Contraindication: Treatment Not Indicated
[2023-12-26 08:00] VITALS: BP 114/65; PULSE 96; RESP 16; TEMP 36.4; O2SAT 96
[2023-12-26 08:25] LABS: Glucose, Whole Blood 105 mg/dL (60-115)
[2023-12-26] MEDS: Fluconazole in NaCl,Iso-Osm 100 MG in Container,Empty 0 ML 50 MG IV (09:38)
--- NOTE | 2023-12-26 10:24 | MHC.CLN ---
F/U PT IS MODERATELY MALNOURISHED SEE FULL CLINICAL NUTRITION ASSESSMENT DATED 12/25/23 PO INTAKE 100% X 3 MEALS DIET RX: 1800DM-DIET WILL MEET PT'S NEEDS AND PROMOTE SLOW WT GAIN PT RECEIVING ENSURE MAX BID TO INCREASE KCALS AND PROMOTE WOUND HEALING SUPP TO PROVIDE 300KCALS, 60G PROTEIN CONTINUE TO MONITOR PO INTAKE AND ENCOURAGE SUPPLEMENTS
[2023-12-26 11:19] LABS: Glucose, Whole Blood 139 mg/dL (60-115)
[2023-12-26 11:55] VITALS: BP 117/58; PULSE 98; RESP 19; TEMP 36.6; O2SAT 96
--- NOTE | 2023-12-26 13:56 | MHC.CM.PN ---
EMR REVIEWED, PT W/SEPSIS, PER HOSPITALIST PT NOT READY FOR DC D/T PENDING CULTURES, PLAN CONT'S TO BE TO RETURN TO [facility] TO COMPLETE STR, CM WILL CONT TO FOLLOW DC NEEDS.
[2023-12-26 15:49] VITALS: BP 120/76; PULSE 71; RESP 18; TEMP 36.5; O2SAT 98
[2023-12-26 16:00] LABS: Glucose, Whole Blood 99 mg/dL (60-115)
[2023-12-26 16:34] LABS: Vancomycin Random 10.6 mcg/mL (15-20)
--- NOTE | 2023-12-26 16:46 | HE.PHANOTE ---
Addendum entered by David Knox [facility] 12/26/23 16:48: CORRECTION NEXT LEVEL 12/26 @ 1800 Original Note: VANCO DOSE ADJUSTMENT BASED ON SCR AND TROUGH OF 10.6 DOSE CHANGED TO 1000Q 12. NEXT LEVEL 12/27 @ 0600
[2023-12-26] MEDS: vancomycin HCL 1,000 MG in 0.9 % Sodium Chloride 250 ML 270 MG IV (16:55)
[2023-12-26] MEDS: Milk of Magnesia 30 ML ORAL.SUSP PO (17:44)
[2023-12-26 19:42] VITALS: BP 113/71; PULSE 61; RESP 17; TEMP 36.2; O2SAT 99
[2023-12-26 20:23] VITALS: PULSE 84
[2023-12-26] MEDS: carvediloL 6.25 MG TABLET PO (20:23)
[2023-12-26] MEDS: Apixaban 5 MG TABLET PO (20:24)
[2023-12-26] MEDS: 0.9 % Sodium Chloride Flush 3 ML SYRINGE IVFLUSH (20:25)
[2023-12-26 20:59] LABS: Glucose, Whole Blood 109 mg/dL (60-115)
[2023-12-27] VITALS (8 sets, daily range): BP systolic 100–143; BP diastolic 53–75; PULSE 71–91; RESP 16–20; TEMP 36.3–37.6; O2SAT 96–100
[2023-12-27] MEDS: Piperacillin Sodium/Tazobactam 3.375 GM in 0.9 % Sodium Chloride 50 ML IV ×4 (04:44→21:56)
[2023-12-27] MEDS: vancomycin HCL 1,000 MG in 0.9 % Sodium Chloride 250 ML 270 MG IV ×2 (05:46→18:21)
[2023-12-27 06:43] LABS: Creatinine Clr Calc Pharmacy 66.6; Estimated Glomerular Filt Rate > 60
[2023-12-27 07:38] LABS: Glucose, Whole Blood 109 mg/dL (60-115)
[2023-12-27] MEDS: Potassium Chloride ER 10 MEQ TABLET.ER PO (07:55)
[2023-12-27] MEDS: Tamsulosin HCL 0.4 MG CAPSULE PO (07:55)
[2023-12-27] MEDS: Apixaban 5 MG TABLET PO ×2 (07:55→20:20)
[2023-12-27] MEDS: Pravastatin Sodium 10 MG TABLET PO (07:55)
[2023-12-27] MEDS: Finasteride 5 MG TABLET PO (07:55)
[2023-12-27] MEDS: Bumetanide 1 MG TABLET PO (07:56)
[2023-12-27] MEDS: 0.9 % Sodium Chloride Flush 3 ML SYRINGE IVFLUSH ×2 (07:56→20:21)
[2023-12-27] MEDS: carvediloL 6.25 MG TABLET PO ×2 (07:56→20:20)
[2023-12-27 11:39] LABS: Glucose, Whole Blood 154 mg/dL (60-115)
[2023-12-27] MEDS: Albuterol Sulfate 90 MCG 8 GM INHALER 2 PUFF INHALE (11:54)
[2023-12-27] MEDS: Insulin Lispro 100 UNIT/ML 3 ML VIAL SUBCUT (12:00)
--- NOTE | 2023-12-27 12:26 | HO.PM.IMPN ---
Subjective Subjective Date of Service: 12/27/23 Interval History: Seen and examined this morning Follow-up for bacteremia History obtained with the assistance of a master cook Patient is awake, alert and has no specific complaints at this time. No fever, chills, abdominal pain, nausea, vomiting. denies sob, cough Review of Systems Review of Systems: Yes all other systems are reviewed and are negative Constitutional Constitutional: Denies chills and Denies fever(s) Cardiovascular Cardiovascular: Denies chest pain, Denies palpitations and Denies dyspnea Respiratory Respiratory: Denies cough and Denies dyspnea Gastrointestinal Gastrointestinal: Denies abdominal pain, Denies nausea and Denies vomiting Endocrine Endocrine: Denies palpitations Physical Exam Vital Signs: Vital Signs: Last Vital Signs Temp 97.3 F 12/27/23 11:21 Pulse 86 12/27/23 11:21 Resp 17 12/27/23 11:21 BP 101/63 12/27/23 11:21 Pulse Ox 97 12/27/23 11:21 O2 Del Method Nasal Cannula 12/27/23 11:21 O2 Flow Rate 3 12/27/23 11:21 Oxygen Flow Rate 4 12/24/23 12:11 BMI result Body Mass Index 17.1 Const: Other: Thin, frail-appearing General: cooperative, comfortable, no acute distress, alert and awake Resp: Effort & Inspection: normal respiratory effort, able to speak in complete sentences, no respiratory distress and no use of accessory muscles Cardio: Rate: regular rate GI: Inspection: No distended Palpation (GI): Soft to palpation and nontender Neuro: General: moves all extremities and CN's II-XI intact bilaterally Extrem: General: Yes no pedal edema Objective Data Active Medications Acetaminophen (Acetaminophen 325 Mg Tablet) 650 mg PO Q6H PRN PRN Reason: Pain, Mild (Pain Scale 1-3), fever or headache Last Admin: 12/25/23 02:45 Dose: 650 mg Documented By: HAYLEY Albuterol Sulfate (Albuterol Sulfate 90 Mcg 8 Gm Inhaler) 2 puff INHALE Q6H PRN PRN Reason: Shortness Of Breath Or Wheezing Last Admin: 12/27/23 11:54 Dose: 2 puff Documented By: AD Apixaban (Apixaban 5 Mg Tablet) 5 mg PO BID TON Last Admin: 12/27/23 07:55 Dose: 5 mg Documented By: SUMAN Bumetanide (Bumetanide 1 Mg Tablet) 1 mg PO DAILY [facility]; Protocol Last Admin: 12/27/23 07:56 Dose: 1 mg Documented By: SUMAN Calcium Carbonate (Calcium Carbonate 750 Mg Tab.Chew) 750 mg PO Q4H PRN PRN Reason: Heartburn Carvedilol (Carvedilol 6.25 Mg Tablet) 6.25 mg PO BID [facility]; Protocol Last Admin: 12/27/23 07:56 Dose: 6.25 mg Documented By: SUMAN Finasteride (Finasteride 5 Mg Tablet) 5 mg PO DAILY [facility] Last Admin: 12/27/23 07:55 Dose: 5 mg Documented By: SUMAN Glucose (Glucose Gel 15 Gm Gel..Gram.) 15 gm PO Q15M PRN; Protocol PRN Reason: per Hypoglycemia Standing Ord. Dextrose (D10) 250 mls @ 750 mls/hr IV Q15M PRN; Protocol PRN Reason: per Hypoglycemia Standing Ord. Piperacillin Sod/Tazobactam (Sod 3.375 gm/ Sodium Chloride) 50 mls @ 100 mls/hr IV Q6H [facility] Last Infusion: 12/27/23 11:13 Dose: Infused Documented By: SUMAN Vancomycin HCl 1,000 mg/ (Sodium Chloride) 270 mls @ 270 mls/hr IV Q12H [facility] Last Infusion: 12/27/23 07:25 Dose: Infused Documented By: SUMAN Insulin Human Lispro (Insulin Lispro 100 Unit/Ml 3 Ml Vial) 0 unit SUBCUT QIDACHS [facility]; Protocol Last Admin: 12/27/23 12:00 Dose: 2 unit Documented By: SUMAN Magnesium Hydroxide (Milk Of Magnesia 30 Ml Oral.Susp) 30 ml PO DAILY PRN PRN Reason: Constipation Last Admin: 12/26/23 17:44 Dose: 30 ml Documented By: SOFFAA Melatonin (Melatonin 3 Mg Tablet) 6 mg PO BEDTIME PRN PRN Reason: Insomnia Pharmacy Consult (Consult Rx Vancomycin Dosing) 1 each MISCELLANE DAILY PRN PRN Reason: Consult order Potassium Chloride (Potassium Chloride Er 10 Meq Tablet.Er) 10 meq PO DAILY [facility] Last Admin: 12/27/23 07:55 Dose: 10 meq Documented By: SUMAN Pravastatin Sodium (Pravastatin Sodium 10 Mg Tablet) 10 mg PO DAILY [facility] Last Admin: 12/27/23 07:55 Dose: 10 mg Documented By: SUMAN Sodium Chloride (0.9 % Sodium Chloride Flush 3 Ml Syringe) 3 ml IVFLUSH QSHIFT [facility] Last Admin: 12/27/23 07:56 Dose: 3 ml Documented By: SUMAN Tamsulosin HCl (Tamsulosin Hcl 0.4 Mg Capsule) 0.4 mg PO DAILY [facility] Last Admin: 12/27/23 07:55 Dose: 0.4 mg Documented By: SUMAN Labs 12/25/23 05:53 12/27/23 06:05 Labs: Laboratory Results - last 24 hr 12/26/23 12/26/23 12/26/23 15:07 15:55 20:55 Estim Creat Clear Calc Estimated GFR POC Glucose 99 109 Random Vancomycin 10.6 L 12/27/23 12/27/23 12/27/23 06:05 07:26 11:20 Estim Creat Clear Calc 66.6 Estimated GFR > 60 POC Glucose 109 154 H Random Vancomycin Microbiology Microbiology Results: Microbiology 12/25/23 Unknown Urine Culture - Preliminary Urine clean catch - Clean Catch Midstream No growth to date. 12/24/23 12:45 Blood Culture - Preliminary Blood - Central Line Enterococcus faecium 12/24/23 12:57 Blood Culture - Preliminary Blood - Venous No growth after 48 hours. 12/24/23 12:46 Blood Culture - Preliminary Blood - Venous No growth after 48 hours. Assessment and Plan (1) Bacteremia: Status: Acute Plan 83-year-old man admitted with septic shock from unknown source at this time although he did present from the snf facility with dyspnea and nonproductive cough. sepsis due to bacteremia Leukocytosis, tachycardia, tachypnea, lactic acidosis, hypotension on admission; resolved. Treated with IV fluids in the ED with good rise of blood pressure positive ua - previous admission for ESBL e coli UTI Enterococcus faecium growing from mid line (pulled in ED) ID following - Continue IV vancomycin, Zosyn until sensitivities return if cultures persistently positive we will consider echocardiogram UTI continue zosyn follow urine cx Acute on chronic respiratory failure with history of bronchiectasis/JESSA back to baseline o2 3L Chest x-ray showing interval decrease in the opacity at the left lung base without superimposed acute process, otherwise extensive chronic bronchial disease. respiratory pathogen panel negative Paroxysmal atrial fibrillation On Eliquis and beta-marika Nonischemic cardiomyopathy On carvedilol,and Bumex Diabetes mellitus hold metformin Sliding scale, ADA diet BPH continue flomax, proscar DVT prophylaxis with apixaban Attending Dr. Butt Full code Requires ongoing inpatient stay for management of bacteremia requiring IV antibiotics extend specialist evaluation Quality Stroke Does the patient have a stroke diagnosis?: No VTE Prior VTE?: No VTE Risk Level:: Medical - moderate - high VTE Device Contraindication: N/A - Device Ordered VTE Drug Contraindication: Treatment Not Indicated
[2023-12-27] MEDS: Albuterol/Iprat 2.5/0.5MG 3 ML AMPUL.NEB INHALE (14:24)
[2023-12-27 16:46] LABS: Vancomycin Random 15.8 mcg/mL (15-20)
[2023-12-27 17:08] LABS: Glucose, Whole Blood 105 mg/dL (60-115)
--- NOTE | 2023-12-27 17:15 | HE.PHANOTE ---
RE [facility] Patients level came back this afternoon at 15.8. Patient is on 1000 mg Q12H, will continue with this dose. Next level to be drawn will be 12/27 @1600. Predicted AUC 574
[2023-12-27 20:58] LABS: Glucose, Whole Blood 99 mg/dL (60-115)
[2023-12-28] VITALS (10 sets, daily range): BP systolic 96–131; BP diastolic 51–66; PULSE 78–104; RESP 18–20; TEMP 36–37.1; O2SAT 93–99
[2023-12-28] MEDS: Piperacillin Sodium/Tazobactam 3.375 GM in 0.9 % Sodium Chloride 50 ML IV (03:32)
[2023-12-28] MEDS: vancomycin HCL 1,000 MG in 0.9 % Sodium Chloride 250 ML 270 MG IV (05:04)
[2023-12-28 07:31] LABS: Anion Gap 10 (12-20); Blood Urea Nitrogen 9 mg/dL (9-16); Calcium 8.2 mg/dL (8.4-10.2); Carbon Dioxide 29 mmol/L (22-29); Chloride 101 mmol/L (96-108); Creatinine Clr Calc Pharmacy 71.5; Estimated Glomerular Filt Rate > 60; Glucose Random 121 mg/dL (60-115); Potassium 3.8 mmol/L (3.3-5.1); Sodium 136 mmol/L (135-145)
[2023-12-28] MEDS: Apixaban 5 MG TABLET PO ×2 (08:11→21:16)
[2023-12-28] MEDS: Potassium Chloride ER 10 MEQ TABLET.ER PO (08:11)
[2023-12-28] MEDS: Tamsulosin HCL 0.4 MG CAPSULE PO (08:11)
[2023-12-28] MEDS: Bumetanide 1 MG TABLET PO (08:11)
[2023-12-28] MEDS: Acetaminophen 325 MG TABLET 650 MG PO ×2 (08:11→21:17)
[2023-12-28] MEDS: Finasteride 5 MG TABLET PO (08:11)
[2023-12-28] MEDS: Pravastatin Sodium 10 MG TABLET PO (08:11)
[2023-12-28] MEDS: carvediloL 6.25 MG TABLET PO ×2 (08:15→21:15)
[2023-12-28] MEDS: 0.9 % Sodium Chloride Flush 3 ML SYRINGE IVFLUSH ×3 (08:15→21:19)
[2023-12-28 08:23] LABS: Glucose, Whole Blood 107 mg/dL (60-115)
[2023-12-28] MEDS: Albuterol Sulfate (0.083%) 2.5 MG/3 ML VIAL.NEB INHALE ×2 (09:52→20:10)
--- NOTE | 2023-12-28 10:46 | MHC.CLN ---
F/U PT IS MODERATELY MALNOURISHED WT CURRENTLY STABLE PO INTAKE 100% CONSISTENTLY DIET RX: 1800DM-DIET WILL MEET PT'S NEEDS AND PROMOTE SLOW WT GAIN PT RECEIVING ENSURE MAX BID TO INCREASE KCALS AND PROMOTE WOUND HEALING SUPP PROVIDES 300KCALS, 60G PROTEIN CONTINUE TO MONITOR PO INTAKE AND ENCOURAGE SUPPLEMENTS
[2023-12-28] MEDS: Linezolid/D5W 600 MG/300 ML PIGGYBACK 300 MG IV (11:29)
[2023-12-28] MEDS: Insulin Lispro 100 UNIT/ML 3 ML VIAL SUBCUT (11:45)
--- NOTE | 2023-12-28 12:30 | HO.PM.IMPN ---
Subjective Subjective Date of Service: 12/28/23 Interval History: Seen and examined this morning Follow-up for bacteremia History obtained with the assistance of a parts interpreter No specific complaints this morning Review of Systems Review of Systems: Yes all other systems are reviewed and are negative Constitutional Constitutional: Denies chills and Denies fever(s) Cardiovascular Cardiovascular: Denies chest pain, Denies palpitations and Reports dyspnea Respiratory Respiratory: Reports cough and Reports dyspnea Gastrointestinal Gastrointestinal: Denies abdominal pain and Denies vomiting Endocrine Endocrine: Denies palpitations Physical Exam Vital Signs: Vital Signs: Last Vital Signs Temp 97.1 F 12/28/23 11:40 Pulse 82 12/28/23 11:40 Resp 20 12/28/23 11:40 BP 104/57 L 12/28/23 11:40 Pulse Ox 96 12/28/23 11:40 O2 Del Method Nasal Cannula 12/28/23 11:40 O2 Flow Rate 3 12/28/23 11:40 Oxygen Flow Rate 4 12/24/23 12:11 BMI result Body Mass Index 17.1 Const: Other: Thin, frail-appearing General: cooperative, comfortable, no acute distress, alert and awake Resp: Effort & Inspection: normal respiratory effort, able to speak in complete sentences, no respiratory distress and no use of accessory muscles Cardio: Rate: regular rate GI: Inspection: No distended Palpation (GI): Soft to palpation and nontender Neuro: General: moves all extremities and CN's II-XI intact bilaterally Extrem: General: Yes no pedal edema Objective Data Active Medications Acetaminophen (Acetaminophen 325 Mg Tablet) 650 mg PO Q6H PRN PRN Reason: Pain, Mild (Pain Scale 1-3), fever or headache Last Admin: 12/28/23 08:11 Dose: 650 mg Documented By: MELIA Albuterol Sulfate (Albuterol Sulfate (0.083%) 2.5 Mg/3 Ml Vial.Neb) 2.5 mg INHALE Q6H PRN PRN Reason: Shortness of Breath/Wheezing Last Admin: 12/28/23 09:52 Dose: 2.5 mg Documented By: CHIKA Apixaban (Apixaban 5 Mg Tablet) 5 mg PO BID [facility] Last Admin: 12/28/23 08:11 Dose: 5 mg Documented By: MELIA Bumetanide (Bumetanide 1 Mg Tablet) 1 mg PO DAILY [facility]; Protocol Last Admin: 12/28/23 08:11 Dose: 1 mg Documented By: MELIA Calcium Carbonate (Calcium Carbonate 750 Mg Tab.Chew) 750 mg PO Q4H PRN PRN Reason: Heartburn Carvedilol (Carvedilol 6.25 Mg Tablet) 6.25 mg PO BID [facility]; Protocol Last Admin: 12/28/23 08:15 Dose: 6.25 mg Documented By: MELIA Finasteride (Finasteride 5 Mg Tablet) 5 mg PO DAILY [facility] Last Admin: 12/28/23 08:11 Dose: 5 mg Documented By: MELIA Glucose (Glucose Gel 15 Gm Gel..Gram.) 15 gm PO Q15M PRN; Protocol PRN Reason: per Hypoglycemia Standing Ord. Dextrose (D10) 250 mls @ 750 mls/hr IV Q15M PRN; Protocol PRN Reason: per Hypoglycemia Standing Ord. Insulin Human Lispro (Insulin Lispro 100 Unit/Ml 3 Ml Vial) 0 unit SUBCUT QIDACHS [facility]; Protocol Last Admin: 12/28/23 11:45 Dose: 2 unit Documented By: MELIA Magnesium Hydroxide (Milk Of Magnesia 30 Ml Oral.Susp) 30 ml PO DAILY PRN PRN Reason: Constipation Last Admin: 12/26/23 17:44 Dose: 30 ml Documented By: MICHELLE Melatonin (Melatonin 3 Mg Tablet) 6 mg PO BEDTIME PRN PRN Reason: Insomnia Potassium Chloride (Potassium Chloride Er 10 Meq Tablet.Er) 10 meq PO DAILY [facility] Last Admin: 12/28/23 08:11 Dose: 10 meq Documented By: MELIA Pravastatin Sodium (Pravastatin Sodium 10 Mg Tablet) 10 mg PO DAILY [facility] Last Admin: 12/28/23 08:11 Dose: 10 mg Documented By: MELIA Sodium Chloride (0.9 % Sodium Chloride Flush 3 Ml Syringe) 3 ml IVFLUSH QSHIFT [facility] Last Admin: 12/28/23 11:46 Dose: 3 ml Documented By: MELIA Tamsulosin HCl (Tamsulosin Hcl 0.4 Mg Capsule) 0.4 mg PO DAILY [facility] Last Admin: 12/28/23 08:11 Dose: 0.4 mg Documented By: MELIA Labs 12/25/23 05:53 12/28/23 06:32 Labs: Laboratory Results - last 24 hr 12/27/23 12/27/23 12/27/23 16:11 16:56 20:22 Anion Gap Estim Creat Clear Calc Estimated GFR POC Glucose 105 99 Random Glucose Calcium Random Vancomycin 15.8 12/28/23 12/28/23 06:32 08:19 Anion Gap 10 L Estim Creat Clear Calc 71.5 Estimated GFR > 60 POC Glucose 107 Random Glucose 121 H Calcium 8.2 L Random Vancomycin Microbiology Microbiology Results: Microbiology 12/24/23 12:45 Blood Culture - Final Blood - Central Line Enterococcus faecium 12/25/23 Unknown Urine Culture - Final Urine clean catch - Clean Catch Midstream Stenotrophomonas maltophilia 12/26/23 15:24 Blood Culture - Preliminary Blood - Venous No growth after 24 hours. 12/26/23 15:24 Blood Culture - Preliminary Blood - Venous No growth after 24 hours. Assessment and Plan (1) Bacteremia: Status: Acute Plan 83-year-old man admitted with septic shock from unknown source at this time although he did [facility] the [facility] with dyspnea and nonproductive cough. sepsis due to bacteremia Leukocytosis, tachycardia, tachypnea, lactic acidosis, hypotension on admission; resolved. Treated with IV fluids in the ED with good rise of blood pressure Enterococcus faecium growing from mid line (pulled in ED) -sensitivities indicate VRE ID following - initially treated with IV vancomycin and Zosyn, will change to Zyvox- can d/c with PO abx Surveillance cultures negative at 24 hours UTI Previously with ESBL UTI and discharged on ertapenem Urine culture on this admission growing stenotrophomonas maltophilia - no need to treat per ID Acute on chronic respiratory failure with history of bronchiectasis/JESSA back to baseline o2 3L Chest x-ray showing interval decrease in the opacity at the left lung base without superimposed acute process, otherwise extensive chronic bronchial disease. respiratory pathogen panel negative Paroxysmal atrial fibrillation On Eliquis and beta-marika Nonischemic cardiomyopathy On carvedilol,and Bumex Diabetes mellitus hold metformin Sliding scale, ADA diet BPH continue flomax, proscar Moderate protein calorie malnutrition As evidenced by BMI 17.1 Dietary supplements DVT prophylaxis with apixaban Attending Dr. Butt Full code Requires ongoing inpatient stay for management of bacteremia requiring IV antibiotics extend specialist evaluation Quality Stroke Does the patient have a stroke diagnosis?: No VTE Prior VTE?: No VTE Risk Level:: Medical - moderate - high VTE Device Contraindication: N/A - Device Ordered VTE Drug Contraindication: Treatment Not Indicated
--- NOTE | 2023-12-28 13:00 | MHC.CM.PN ---
Discharge is pending Blood cultures and line placement. DP return to [place] [facility] once medically cleared. Transport via S.
--- NOTE | 2023-12-28 13:14 | MHC.SL.SWA ---
Speech Pathologist Impression: Risk of Aspiration, Oral Phase Dysphagia Dysphasia Diet Status: Downgrade solids to PUREE (NDD1) d/t edentulous status and no chewing/mashing of solids Liquid Consistency and Strategies for Safe Swallow: Liquid Intake Recommendation: Thin Liquid Intake Strategies: Small Sips Solid Food Consistency: Dietary Recommendations: Pureed (NDD1) Additional Modifications to Solid Foods: Recommend DOWNGRADE to PUREED diet (NDD1) and continue on THIN liquids, pills WHOLE in PUREE. 1:1 supervision and aspiration precautions. Oral Medication Intake: Whole with Puree Please contact the pharmacy regarding appropriate crushable or liquid drug formulations that are available whenever modified delivery is recommended. Compensatory Strategies and Precautions to be Taken for Safe Swallow: Sitting Upright (90 deg) Small Bites and Sips Alternate Liquids/Solids Rate of Ingestion Change Oral Check Supervision While Eating and Drinking for Safe Swallow: Total Supervision (1:1) Foods to Avoid: Large pieces of hard to chew solids. Swallowing Recommended Treatments: Compens. Strategy Educat. Recommendation for Speech: Inpatient Speech Therapy Comment: MUSHROOM CULTIVATOR to f/u 1-2x Frequency/Duration: Date Range for Service Req: Timeline to reassess: Vegetable I Farmworker Clinican/Clinical Fellow: No Supervisory Statement: I have reviewed and agree with the student/clinical fellow's documentation: N/A Speech Language Pathologist: Ирина Wilkes M.A., [facility]-MUSHROOM CULTIVATOR
--- NOTE | 2023-12-28 13:15 | P.CDIM_ITS ---
PROVIDER RESPONSE TEXT: To clarify, the appropriate diagnosis supported by the clinical indicators: Other (explain): growing from midline. midline is not a central line. not CLABSI QUERY TEXT: PHYSICIAN'S DOCUMENTATION REQUEST Date of Query: 12/28/2023 11:42 AM EDT Patient Name: Yao Herman Admit Date: 12/24/2023 Dear Eileen BRUNSON, A review of the medical record indicates additional documentation may be needed. Please review below and update the documentation accordingly. Clinical Indicators: Per Hospitalist Progress Note 12/27/23: sepsis due to bacteremia Leukocytosis, tachycardia, tachypnea, lactic acidosis, hypotension on admission; resolved. Enterococcus faecium growing from mid line (pulled in ED) ID following - Continue IV vancomycin, Zosyn until sensitivities return Please clarify which, if any, of the following is the most likely etiology of the above symptoms and treatment rendered: CLABSI Other (explain) Clinically unable to determine (explain) Thank you, Marisol Montiel RN Use of terms such as suspected, likely, concern for, or probable (associated with a specific diagnosi s that is being evaluated, monitored, or treated as if it exists) are acceptable and can be coded in the inpatient se tting, when documented at the time of discharge. Please use your independent medical judgment in providing your response. THIS QUERY IS PART OF THE PERMANENT MEDICAL RECORD
--- NOTE | 2023-12-28 13:24 | P.CDIM_ITS ---
PROVIDER RESPONSE TEXT: To clarify, the appropriate diagnosis supported by the clinical indicators: Moderate Protein Calorie Malnutrition QUERY TEXT: PHYSICIAN'S DOCUMENTATION REQUEST Date of Query: 12/28/2023 11:51 AM EDT Patient Name: Yao Herman Admit Date: 12/24/2023 Dear Eileen Zuniga PA, A review of the medical record indicates additional documentation may be needed. Please review below and update the documentation accordingly. Clinical Indicators: Height: ( ) 5'6 Weight: ( ) 48 kg BMI: ( ) 17.1 Other Clinical Notes Supporting Significance of the BMI: Per Clinical Nutrition Assessment 12/25/23: Moderately malnourished, mildly depleted subcutaneous fat and muscle mass and patient triggers for 14 % significant weight loss x6 months If possible, please provide an associated diagnosis related to the abnormal BMI, such as: Underweight Weight loss Cachexia Anorexia Moderate Protein Calorie Malnutrition Other (explain) Clinically unable to determine (explain) Thank you, Marisol Montiel RN Use of terms such as suspected, likely, concern for, or probable (associated with a specific diagnosi s that is being evaluated, monitored, or treated as if it exists) are acceptable and can be coded in the inpatient se tting, when documented at the time of discharge. Please use your independent medical judgment in providing your response. THIS QUERY IS PART OF THE PERMANENT MEDICAL RECORD
[2023-12-28 13:26] LABS: Glucose, Whole Blood 161 mg/dL (60-115)
[2023-12-28 16:59] LABS: Glucose, Whole Blood 111 mg/dL (60-115)
[2023-12-28 17:00] LABS: Glucose, Whole Blood 103 mg/dL (60-115)
[2023-12-28 19:50] LABS: Glucose, Whole Blood 130 mg/dL (60-115)
[2023-12-28] MEDS: Melatonin 3 MG TABLET 6 MG PO (21:17)
[2023-12-29] VITALS (7 sets, daily range): BP systolic 85–131; BP diastolic 50–76; PULSE 80–108; RESP 16–32; TEMP 36.2–36.8; O2SAT 95–98
[2023-12-29 07:57] LABS: Glucose, Whole Blood 100 mg/dL (60-115)
[2023-12-29] MEDS: Pravastatin Sodium 10 MG TABLET PO (08:20)
[2023-12-29] MEDS: Tamsulosin HCL 0.4 MG CAPSULE PO (08:20)
[2023-12-29] MEDS: Finasteride 5 MG TABLET PO (08:20)
[2023-12-29] MEDS: Potassium Chloride ER 10 MEQ TABLET.ER PO (08:20)
[2023-12-29] MEDS: Apixaban 5 MG TABLET PO ×2 (08:20→20:52)
[2023-12-29] MEDS: 0.9 % Sodium Chloride Flush 3 ML SYRINGE IVFLUSH ×2 (08:20→20:54)
[2023-12-29] MEDS: carvediloL 6.25 MG TABLET PO ×2 (08:20→20:52)
[2023-12-29] MEDS: Linezolid/D5W 600 MG/300 ML PIGGYBACK 300 MG IV (08:20)
[2023-12-29] MEDS: Bumetanide 1 MG TABLET PO (08:20)
[2023-12-29 11:47] LABS: Glucose, Whole Blood 111 mg/dL (60-115)
[2023-12-29] MEDS: Albuterol Sulfate (0.083%) 2.5 MG/3 ML VIAL.NEB INHALE (12:07)
--- NOTE | 2023-12-29 12:21 | HO.PM.IMPN ---
Subjective Subjective Date of Service: 12/29/23 Interval History: Seen and examined this morning Follow-up for bacteremia History obtained with the assistance of a packing attendant Reports feeling excellent today. Denies shortness of breath. Reports cough which is chronic and unchanged from baseline Had an episode of diarrhea this morning. Denies abdominal pain, nausea, vomiting Review of Systems Review of Systems: Yes all other systems are reviewed and are negative Constitutional Constitutional: Denies chills and Denies fever(s) Cardiovascular Cardiovascular: Denies chest pain, Denies palpitations and Denies dyspnea Respiratory Respiratory: Denies cough and Denies dyspnea Gastrointestinal Gastrointestinal: Denies abdominal pain, Denies nausea and Denies vomiting Endocrine Endocrine: Denies palpitations Physical Exam Vital Signs: Vital Signs: Last Vital Signs Temp 97.2 F 12/29/23 12:00 Pulse 95 12/29/23 12:09 Resp 24 H 12/29/23 12:09 BP 118/71 12/29/23 12:00 Pulse Ox 96 12/29/23 12:00 O2 Del Method Nasal Cannula 12/29/23 12:00 O2 Flow Rate 3 12/29/23 12:00 Oxygen Flow Rate 4 12/24/23 12:11 BMI result Body Mass Index 17.1 Const: Other: Thin, frail-appearing General: cooperative, comfortable, no acute distress, alert and awake Orientation/consciousness: patient oriented x3 Resp: Effort & Inspection: normal respiratory effort, able to speak in complete sentences, no respiratory distress and no use of accessory muscles Auscultation: no wheezes Cardio: Rate: regular rate GI: Inspection: No distended Palpation (GI): Soft to palpation and nontender Neuro: General: patient oriented x3, moves all extremities and CN's II-XI intact bilaterally Extrem: General: Yes no pedal edema Objective Data Active Medications Acetaminophen (Acetaminophen 325 Mg Tablet) 650 mg PO Q6H PRN PRN Reason: Pain, Mild (Pain Scale 1-3), fever or headache Last Admin: 12/28/23 21:17 Dose: 650 mg Documented By: NAUN Apixaban (Apixaban 5 Mg Tablet) 5 mg PO BID [facility] Last Admin: 12/29/23 08:20 Dose: 5 mg Documented By: SAMY Bumetanide (Bumetanide 1 Mg Tablet) 1 mg PO DAILY [facility]; Protocol Last Admin: 12/29/23 08:20 Dose: 1 mg Documented By: SAMY Calcium Carbonate (Calcium Carbonate 750 Mg Tab.Chew) 750 mg PO Q4H PRN PRN Reason: Heartburn Carvedilol (Carvedilol 6.25 Mg Tablet) 6.25 mg PO BID [facility]; Protocol Last Admin: 12/29/23 08:20 Dose: 6.25 mg Documented By: SAMY Finasteride (Finasteride 5 Mg Tablet) 5 mg PO DAILY [facility] Last Admin: 12/29/23 08:20 Dose: 5 mg Documented By: SAMY Glucose (Glucose Gel 15 Gm Gel..Gram.) 15 gm PO Q15M PRN; Protocol PRN Reason: per Hypoglycemia Standing Ord. Dextrose (D10) 250 mls @ 750 mls/hr IV Q15M PRN; Protocol PRN Reason: per Hypoglycemia Standing Ord. Linezolid (Zyvox/D5w) 600 mg in 300 mls @ 300 mls/hr IV BID [facility] Last Infusion: 12/29/23 09:40 Dose: Infused Documented By: SAMY Magnesium Sulfate (Magnesium Sulfate/H2o) 2 gm in 50 mls @ 25 mls/hr IV ONCE ONE Stop: 12/29/23 14:14 Insulin Human Lispro (Insulin Lispro 100 Unit/Ml 3 Ml Vial) 0 unit SUBCUT QIDACHS [facility]; Protocol Last Admin: 12/29/23 11:53 Dose: Not Given Documented By: SAMY Non-Admin Reason: No Insulin Coverage Levalbuterol HCl (Levalbuterol Hcl 1.25 Mg/3 Ml Vial.Neb) 1.25 mg INHALE Q6H PRN PRN Reason: Shortness of Breath/Wheezing Loperamide HCl (Loperamide Hcl 2 Mg Capsule) 2 mg PO Q6H PRN PRN Reason: Diarrhea Melatonin (Melatonin 3 Mg Tablet) 6 mg PO BEDTIME PRN PRN Reason: Insomnia Last Admin: 12/28/23 21:17 Dose: 6 mg Documented By: NAUN Potassium Chloride (Potassium Chloride Er 10 Meq Tablet.Er) 10 meq PO DAILY [facility] Last Admin: 12/29/23 08:20 Dose: 10 meq Documented By: SAMY Pravastatin Sodium (Pravastatin Sodium 10 Mg Tablet) 10 mg PO DAILY [facility] Last Admin: 12/29/23 08:20 Dose: 10 mg Documented By: SAMY Sodium Chloride (0.9 % Sodium Chloride Flush 3 Ml Syringe) 3 ml IVFLUSH QSHIFT [facility] Last Admin: 12/29/23 08:20 Dose: 3 ml Documented By: SAMY Tamsulosin HCl (Tamsulosin Hcl 0.4 Mg Capsule) 0.4 mg PO DAILY [facility] Last Admin: 12/29/23 08:20 Dose: 0.4 mg Documented By: SAMY Labs 12/25/23 05:53 12/28/23 06:32 Labs: Laboratory Results - last 24 hr 12/28/23 12/28/23 12/28/23 11:43 16:47 16:52 POC Glucose 161 H 111 103 12/28/23 12/29/23 12/29/23 19:45 07:37 11:22 POC Glucose 130 H 100 111 Microbiology Microbiology Results: Microbiology 12/26/23 15:24 Blood Culture - Preliminary Blood - Venous No growth after 48 hours. 12/26/23 15:24 Blood Culture - Preliminary Blood - Venous No growth after 48 hours. Assessment and Plan (1) Bacteremia: Status: Acute Plan 83-year-old man admitted with septic shock from unknown source at this time although [facility] with dyspnea and nonproductive cough. sepsis due to bacteremia Leukocytosis, tachycardia, tachypnea, lactic acidosis, hypotension on admission; resolved. Treated with IV fluids in the ED with good rise of blood pressure Enterococcus faecium growing from mid line (pulled in ED) -sensitivities indicate VRE ID following - initially treated with IV vancomycin and Zosyn, will change to Zyvox- can d/c with PO abx Surveillance cultures negative at 48 hours UTI Previously with ESBL UTI and discharged on ertapenem Urine culture on this admission growing stenotrophomonas maltophilia - no need to treat per ID NSVT Had 1 episode NSVT, 5 beats during breathing treatment Patient asymptomatic Continue baseline beta marika, blood pressure soft unable to titrate up Check chemistries, magnesium Empiric IV Mag Known low EF Changed albuterol to Xopenex breathing treatments If recurs we will consider repeat/cardiology consultation Acute on chronic respiratory failure with history of bronchiectasis/JESSA back to baseline o2 3L Chest x-ray showing interval decrease in the opacity at the left lung base without superimposed acute process, otherwise extensive chronic bronchial disease. respiratory pathogen panel negative continue prn breathing treatments Paroxysmal atrial fibrillation On Eliquis and beta-marika Nonischemic cardiomyopathy EF from may 35-40% On carvedilol,and Bumex Diabetes mellitus hold metformin Sliding scale, ADA diet BPH continue flomax, proscar Moderate protein calorie malnutrition/debility As evidenced by BMI 17.1 Dietary supplements added seen by speech, patient is edentulous, recommended NDD1 diet. Previous MBSS in May did not show aspiration PT recommended returne to rehab pt appears very weak and frail, discussed code status, at this time wants to remain full code DVT prophylaxis with apixaban Full code, confirmed with patient; attempted to call HCP Leti to discuss overall declining health, no answer [id number], possibly in a.m. Requires ongoing inpatient stay for management of bacteremia requiring IV antibiotics extend specialist evaluation Quality Stroke Does the patient have a stroke diagnosis?: No VTE Prior VTE?: No VTE Risk Level:: Medical - moderate - high VTE Device Contraindication: N/A - Device Ordered VTE Drug Contraindication: Treatment Not Indicated
[2023-12-29] MEDS: Magnesium Sulfate/H2O 2 GM/50 ML PIGGYBACK IV (12:23)
[2023-12-29 13:42] LABS: Anion Gap 10 (12-20); Blood Urea Nitrogen 15 mg/dL (9-16); Calcium 8.7 mg/dL (8.4-10.2); Carbon Dioxide 32 mmol/L (22-29); Chloride 100 mmol/L (96-108); Creatinine Clr Calc Pharmacy 63.4; Estimated Glomerular Filt Rate > 60; Glucose Random 111 mg/dL (60-115); Magnesium 1.8 mg/dL (1.6-2.6); Potassium 4.4 mmol/L (3.3-5.1); Sodium 138 mmol/L (135-145)
[2023-12-29 16:11] LABS: Glucose, Whole Blood 116 mg/dL (60-115)
[2023-12-29] MEDS: Loperamide HCl 2 MG CAPSULE PO (16:32)
[2023-12-29 20:51] LABS: Glucose, Whole Blood 110 mg/dL (60-115)
[2023-12-29] MEDS: Acetaminophen 325 MG TABLET 650 MG PO (20:52)
[2023-12-29] MEDS: Melatonin 3 MG TABLET 6 MG PO (20:53)
[2023-12-29] MEDS: Linezolid 600 MG TABLET PO (20:53)
--- NOTE | 2023-12-29 23:52 | PM.EVENT ---
Event Note Date of Service: 12/29/23 Event Note: Contacted to notify patient's BP is 85/50. No tachycardia or fever. Patient received Coreg at 8:52 PM. Doubt 2/2 to sepsis. It is likely due to Coreg use. Will give NS 250 ml bolus and recheck BP. Time Spent With Patient Time: Total time managing care of this patient today ____ minutes.
[2023-12-30] VITALS (7 sets, daily range): BP systolic 103–107; BP diastolic 56–62; PULSE 70–94; RESP 20–24; TEMP 36.6–37.1; O2SAT 92–97
[2023-12-30] MEDS: 0.9 % Sodium Chloride 250 ML 999 ML IV (00:01)
[2023-12-30 07:51] LABS: Hemoglobin 9.6 g/dl (14.0-18.0); Mean Corpuscular Volume 90.1 fL (80.0-98.0); Mean Platelet Volume 10.1 fL (9.4-12.4); Platelet Count 362 X10*3/uL (160-400); Red Blood Count 3.55 X10*6/uL (4.60-5.80); Red Cell Distribution Width 17.3 % (11.0-16.0); White Blood Count 15.8 X10*3/uL (4.8-10.8)
[2023-12-30] MEDS: Finasteride 5 MG TABLET PO (08:05)
[2023-12-30] MEDS: Apixaban 5 MG TABLET PO ×2 (08:05→20:28)
[2023-12-30 08:06] LABS: Glucose, Whole Blood 97 mg/dL (60-115)
[2023-12-30] MEDS: Pravastatin Sodium 10 MG TABLET PO (08:06)
[2023-12-30] MEDS: Tamsulosin HCL 0.4 MG CAPSULE PO (08:06)
[2023-12-30] MEDS: Bumetanide 1 MG TABLET PO (08:06)
[2023-12-30] MEDS: Potassium Chloride ER 10 MEQ TABLET.ER PO (08:06)
[2023-12-30] MEDS: Linezolid 600 MG TABLET PO ×2 (08:11→20:28)
[2023-12-30] MEDS: 0.9 % Sodium Chloride Flush 3 ML SYRINGE IVFLUSH (08:12)
[2023-12-30] MEDS: Magnesium Sulfate/H2O 2 GM/50 ML PIGGYBACK IV (09:36)
[2023-12-30 11:41] LABS: Glucose, Whole Blood 132 mg/dL (60-115)
--- NOTE | 2023-12-30 12:13 | P.PNIM_ITS ---
Subjective Subjective Date of Service: 12/30/23 Interval History: Seen and examined this morning Follow-up for bacteremia Feeling well this morning, blood pressure low overnight but asymptomatic no sob, no change in cough Review of Systems Review of Systems: Yes all other systems are reviewed and are negative Constitutional Constitutional: Denies chills and Denies fever(s) Cardiovascular Cardiovascular: Denies chest pain, Denies palpitations and Denies dyspnea Respiratory Respiratory: Denies dyspnea Gastrointestinal Gastrointestinal: Denies abdominal pain, Denies nausea and Denies vomiting Endocrine Endocrine: Denies palpitations Physical Exam 2 Vital Signs: Vital Signs: Last Vital Signs Temp 98.2 F 12/30/23 11:32 Pulse 94 12/30/23 11:32 Resp 20 12/30/23 11:32 BP 103/62 12/30/23 11:32 Pulse Ox 96 12/30/23 11:32 O2 Del Method Nasal Cannula 12/30/23 11:32 O2 Flow Rate 3 12/30/23 11:32 Oxygen Flow Rate 4 12/24/23 12:11 BMI result Body Mass Index 17.1 Const: Other: Thin, frail-appearing General: cooperative, comfortable, no acute distress, alert and awake O rientation/consciousness: patient oriented x3 Resp: Other: mild basilar rales Effort & Inspection: normal respiratory effort, able to speak in complete sentences, no respiratory distress and no use of accessory muscles A uscultation: no wheezes Cardio: Rate: regular rate GI: Inspection: No distended Palpation (GI): Soft to palpation and nontender Neuro: General: patient oriented x3, moves all extremities and CN's II-XI intact bilaterally Extrem: General: Yes no pedal edema Objective Data Active Medications Acetaminophen (Acetaminophen 325 Mg Tablet) 650 mg PO Q6H PRN PRN Reason: Pain, Mild (Pain Scale 1-3), fever or headache Last Admin: 12/29/23 20:52 Dose: 650 mg Documented By: NAUN Apixaban (Apixaban 5 Mg Tablet) 5 mg PO BID [facility] Last Admin: 12/30/23 08:05 Dose: 5 mg Documented By: MELIA Bumetanide (Bumetanide 1 Mg Tablet) 0.5 mg PO BID@0800,1700 [facility]; Protocol Calcium Carbonate (Calcium Carbonate 750 Mg Tab.Chew) 750 mg PO Q4H PRN PRN Reason: Heartburn Carvedilol (Carvedilol 6.25 Mg Tablet) 6.25 mg PO BID [facility]; Protocol Last Admin: 12/30/23 09:37 Dose: Not Given Documented By: MELIA Non-Admin Reason: Decreased Blood Pressure Finasteride (Finasteride 5 Mg Tablet) 5 mg PO DAILY [facility] Last Admin: 12/30/23 08:05 Dose: 5 mg Documented By: MELIA Glucose (Glucose Gel 15 Gm Gel..Gram.) 15 gm PO Q15M PRN; Protocol PRN Reason: per Hypoglycemia Standing Ord. Dextrose (D10) 250 mls @ 750 mls/hr IV Q15M PRN; Protocol PRN Reason: per Hypoglycemia Standing Ord. Insulin Human Lispro (Insulin Lispro 100 Unit/Ml 3 Ml Vial) 0 unit SUBCUT QIDACHS [facility]; Protocol Last Admin: 12/30/23 11:43 Dose: Not Given Documented By: MELIA Non-Admin Reason: No Insulin Coverage Levalbuterol HCl (Levalbuterol Hcl 1.25 Mg/3 Ml Vial.Neb) 1.25 mg INHALE Q6H PRN PRN Reason: Shortness of Breath/Wheezing Linezolid (Linezolid 600 Mg Tablet) 600 mg PO Q12H [facility] Last Admin: 12/30/23 08:11 Dose: 600 mg Documented By: MELIA Loperamide HCl (Loperamide Hcl 2 Mg Capsule) 2 mg PO Q6H PRN PRN Reason: Diarrhea Last Admin: 12/29/23 16:32 Dose: 2 mg Documented By: SAMY Magnesium Oxide (Magnesium Oxide 400 Mg Tablet) [facility] Melatonin (Melatonin 3 Mg Tablet) 6 mg PO BEDTIME PRN PRN Reason: Insomnia Last Admin: 12/29/23 20:53 Dose: 6 mg Documented By: NAUN Potassium Chloride (Potassium Chloride Er 10 Meq Tablet.Er) 10 meq PO DAILY [facility] Last Admin: 12/30/23 08:06 Dose: 10 meq Documented By: MELIA Pravastatin Sodium (Pravastatin Sodium 10 Mg Tablet) 10 mg PO DAILY [facility] Last Admin: 12/30/23 08:06 Dose: 10 mg Documented By: MELIA Sodium Chloride (0.9 % Sodium Chloride Flush 3 Ml Syringe) 3 ml IVFLUSH QSHIFT [facility] Last Admin: 12/30/23 08:12 Dose: 3 ml Documented By: MELIA Tamsulosin HCl (Tamsulosin Hcl 0.4 Mg Capsule) 0.4 mg PO DAILY [facility] Last Admin: 12/30/23 08:06 Dose: 0.4 mg Documented By: MELIA Labs 12/29/23 13:17 12/29/23 13:17 Labs: Laboratory Results - last 24 hr 12/29/23 12/29/23 12/29/23 13:17 16:05 20:42 MCV 90.1 MCH 27.0 MCHC 30.0 L RDW 17.3 H Plt Count 362 MPV 10.1 Absolute Nucleated RBC 0.000 Nucleated RBC % (auto) 0.0 Hold Purple Top SEE NOTE Anion Gap 10 L Estim Creat Clear Calc 63.4 Estimated GFR > 60 POC Glucose 116 H 110 Random Glucose 111 Calcium 8.7 D Magnesium 1.8 12/30/23 12/30/23 08:02 11:36 MCV MCH MCHC RDW Plt Count MPV Absolute Nucleated RBC Nucleated RBC % (auto) Hold Purple Top Anion Gap Estim Creat Clear Calc Estimated GFR POC Glucose 97 132 H Random Glucose Calcium Magnesium Microbiology Microbiology Results: Microbiology 12/24/23 12:57 Blood Culture - Final Blood - Venous No growth after 5 days. 12/24/23 12:46 Blood Culture - Final Blood - Venous No growth after 5 days. Assessment and Plan (1) Bacteremia: Status: Acute Plan 83-year-old man admitted with septic shock from unknown source at this time although he did present from the intermediate facility with dyspnea and nonproductive cough. sepsis due to bacteremia Leukocytosis, tachycardia, tachypnea, lactic acidosis, hypotension on admission; resolved. Treated with IV fluids in the ED with good rise of blood pressure Enterococcus faecium growing from mid line (pulled in ED) -sensitivities indicate VRE ID following - initially treated with IV vancomycin and Zosyn, will change to Zyvox- can d/c with PO abx Surveillance cultures negative at 48 hours Leukocytosis trending up yesterday, but no change in clinical condition. no sob, fever or urinary symptoms will trend CBC UTI Previously with ESBL UTI and discharged on ertapenem Urine culture on this admission growing stenotrophomonas maltophilia - no need to treat per ID NSVT Had 1 episode NSVT, 5 beats during breathing treatment Patient asymptomatic Continue baseline beta marika, blood pressure soft unable to titrate up Known low EF start po mag replacement Changed albuterol to Xopenex breathing treatments If recurs we will consider repeat/cardiology consultation Acute on chronic respiratory failure with history of bronchiectasis/JESSA back to baseline o2 3L Chest x-ray showing interval decrease in the opacity at the left lung base without superimposed acute process, otherwise extensive chronic bronchial disease. respiratory pathogen panel negative continue prn breathing treatments Paroxysmal atrial fibrillation On Eliquis and beta-marika Nonischemic cardiomyopathy EF from may 35-40% On carvedilol,and Bumex no overt fluid overload due to soft bp will change bumex to 0.5 bid and monitor bp. Will consider changing to 0.5 mg once daily depending on blood pressure/fluid status Diabetes mellitus hold metformin Sliding scale, ADA diet BPH continue flomax, proscar Moderate protein calorie malnutrition/debility As evidenced by BMI 17.1 Dietary supplements added seen by speech, patient is edentulous, recommended NDD1 diet. Previous MBSS in May did not show aspiration PT recommended returne to rehab pt appears very weak and frail, discussed code status, at this time wants to remain full code DVT prophylaxis with apixaban Full code, confirmed with patient; attempted to call HCP Leti to discuss overall declining health, no answer Requires ongoing inpatient stay for management of bacteremia requiring IV antibiotics extend specialist evaluation Quality Stroke Does the patient have a stroke diagnosis?: No VTE Prior VTE?: No VTE Risk Level:: Medical - moderate - high VTE Device Contraindication: N/A - Device Ordered VTE Drug Contraindication: Treatment Not Indicated
[2023-12-30] MEDS: Acetaminophen 325 MG TABLET 650 MG PO (12:25)
[2023-12-30 13:47] LABS: MANUAL DIFF FLAG NO
[2023-12-30 13:52] LABS: Basophils Absolute Auto 0.1 X10*3/uL (0.0-0.2); Basophils Percent Auto 0.4 % (0-2); Eosinophils Percent Auto 16.3 % (0-4); Hematocrit 29.2 % (42.0-52.0); Hemoglobin 8.9 g/dl (14.0-18.0); Imm Gran Abs Auto 0.05 X10*3/uL (0.00-0.03); Imm Gran Pct Auto 0.4 % (0.0-0.4); Lymphocytes Absolute Auto 0.7 X10*3/uL (1.2-4.9); Lymphocytes Percent Auto 5.5 % (20-40); Mean Corpuscular HGB Conc 30.5 g/dl (31.0-36.0); Mean Corpuscular Hemoglobin 26.3 pg (27.0-33.0); Mean Corpuscular Volume 86.1 fL (80.0-98.0); Mean Platelet Volume 9.1 fL (9.4-12.4); Monocytes Absolute Auto 0.7 X10*3/uL (0.1-1.2); Monocytes Percent Auto 6.1 % (2-11); Neutrophils Absolute Auto 8.5 x10*3/uL (2.0-8.3); Neutrophils Percent Auto 71.3 % (45-73); Platelet Count 339 X10*3/uL (160-400); Red Blood Count 3.39 X10*6/uL (4.60-5.80); Red Cell Distribution Width 17.1 % (11.0-16.0); White Blood Count 11.9 X10*3/uL (4.8-10.8)
[2023-12-30] MEDS: carvediloL 6.25 MG TABLET PO ×2 (14:39→20:28)
[2023-12-30 16:39] LABS: Glucose, Whole Blood 136 mg/dL (60-115)
[2023-12-30] MEDS: Magnesium Oxide 400 MG TABLET PO (18:03)
[2023-12-30] MEDS: levalbuterol HCL 1.25 MG/3 ML VIAL.NEB INHALE (18:07)
[2023-12-30 20:34] LABS: Glucose, Whole Blood 105 mg/dL (60-115)
[2023-12-30] MEDS: Melatonin 3 MG TABLET 6 MG PO (20:36)
[2023-12-31] VITALS: BP 104/52; PULSE 80; RESP 23; TEMP 36.4; O2SAT 96
[2023-12-31] MEDS: 0.9 % Sodium Chloride Flush 3 ML SYRINGE IVFLUSH ×2 (00:28→08:02)
[2023-12-31] MEDS: levalbuterol HCL 1.25 MG/3 ML VIAL.NEB INHALE ×2 (03:01→11:50)
[2023-12-31 03:02] VITALS: PULSE 86; RESP 23; O2SAT 96
[2023-12-31 03:49] VITALS: BP 109/57; PULSE 78; RESP 16; TEMP 36.8; O2SAT 96
[2023-12-31 07:26] LABS: Glucose, Whole Blood 99 mg/dL (60-115)
[2023-12-31 07:43] VITALS: BP 103/55; PULSE 85; RESP 20; TEMP 36.2; O2SAT 95
[2023-12-31] MEDS: carvediloL 6.25 MG TABLET PO (08:01)
[2023-12-31] MEDS: Potassium Chloride ER 10 MEQ TABLET.ER PO (08:01)
[2023-12-31] MEDS: Tamsulosin HCL 0.4 MG CAPSULE PO (08:01)
[2023-12-31] MEDS: Pravastatin Sodium 10 MG TABLET PO (08:01)
[2023-12-31] MEDS: Magnesium Oxide 400 MG TABLET PO (08:01)
[2023-12-31] MEDS: Linezolid 600 MG TABLET PO (08:01)
[2023-12-31] MEDS: Finasteride 5 MG TABLET PO (08:01)
[2023-12-31] MEDS: Apixaban 5 MG TABLET PO (08:01)
[2023-12-31] MEDS: Bumetanide 1 MG TABLET 0.5 MG PO (08:02)
--- NOTE | 2023-12-31 09:47 | MHC.CM.PN ---
Per WELDING INSPECTOR/Chrissy, Patient is medically cleared to return to [facility] CM will follow.
--- NOTE | 2023-12-31 10:35 | P.PNIM_ITS ---
Subjective Subjective Date of Service: 12/31/23 Interval History: Seen and examined this morning Follow-up for bacteremia no sob, no change in cough Review of Systems Review of Systems: Yes all other systems are reviewed and are negative Constitutional Constitutional: Denies chills and Denies fever(s) Cardiovascular Cardiovascular: Denies chest pain, Denies palpitations and Denies dyspnea Respiratory Respiratory: Denies dyspnea Gastrointestinal Gastrointestinal: Denies abdominal pain, Denies nausea and Denies vomiting Endocrine Endocrine: Denies palpitations Physical Exam 2 Vital Signs: Vital Signs: Last Vital Signs Temp 97.2 F 12/31/23 07:43 Pulse 85 12/31/23 07:43 Resp 20 12/31/23 07:43 BP 103/55 L 12/31/23 07:43 Pulse Ox 95 12/31/23 07:43 O2 Del Method Nasal Cannula 12/31/23 07:43 O2 Flow Rate 3 12/31/23 07:43 Oxygen Flow Rate 4 12/24/23 12:11 BMI result Body Mass Index 17.1 Appearing in no acute distress lung sounds are clear to auscultation heart regular rate rhythm, clear S1, S2 positive bowel sounds, abdomen is soft, nontender neuro patient is alert x3, no focal deficits Objective Data Active Medications Acetaminophen (Acetaminophen 325 Mg Tablet) 650 mg PO Q6H PRN PRN Reason: Pain, Mild (Pain Scale 1-3), fever or headache Last Admin: 12/30/23 12:25 Dose: 650 mg Documented By: ABIDA Apixaban (Apixaban 5 Mg Tablet) 5 mg PO BID [facility] Last Admin: 12/31/23 08:01 Dose: 5 mg Documented By: MARKOS Bumetanide (Bumetanide 1 Mg Tablet) 0.5 mg PO BID@0800,1700 [facility]; Protocol Last Admin: 12/31/23 08:02 Dose: 0.5 mg Documented By: MARKOS Calcium Carbonate (Calcium Carbonate 750 Mg Tab.Chew) 750 mg PO Q4H PRN PRN Reason: Heartburn Carvedilol (Carvedilol 6.25 Mg Tablet) 6.25 mg PO BID [facility]; Protocol Last Admin: 12/31/23 08:01 Dose: 6.25 mg Documented By: MARKOS Finasteride (Finasteride 5 Mg Tablet) 5 mg PO DAILY [facility] Last Admin: 12/31/23 08:01 Dose: 5 mg Documented By: MARKOS Glucose (Glucose Gel 15 Gm Gel..Gram.) 15 gm PO Q15M PRN; Protocol PRN Reason: per Hypoglycemia Standing Ord. Dextrose (D10) 250 mls @ 750 mls/hr IV Q15M PRN; Protocol PRN Reason: per Hypoglycemia Standing Ord. Insulin Human Lispro (Insulin Lispro 100 Unit/Ml 3 Ml Vial) 0 unit SUBCUT QIDACHS [facility]; Protocol Last Admin: 12/31/23 08:48 Dose: Not Given Documented By: MARKOS Non-Admin Reason: No Insulin Coverage Levalbuterol HCl (Levalbuterol Hcl 1.25 Mg/3 Ml Vial.Neb) 1.25 mg INHALE Q6H PRN PRN Reason: Shortness of Breath/Wheezing Last Admin: 12/31/23 03:01 Dose: 1.25 mg Documented By: KENNY Linezolid (Linezolid 600 Mg Tablet) 600 mg PO Q12H [facility] Last Admin: 12/31/23 08:01 Dose: 600 mg Documented By: MARKOS Loperamide HCl (Loperamide Hcl 2 Mg Capsule) 2 mg PO Q6H PRN PRN Reason: Diarrhea Last Admin: 12/29/23 16:32 Dose: 2 mg Documented By: SAMY Magnesium Oxide (Magnesium Oxide 400 Mg Tablet) 400 mg PO BIDPC [facility] Last Admin: 12/31/23 08:01 Dose: 400 mg Documented By: MARKOS Melatonin (Melatonin 3 Mg Tablet) 6 mg PO BEDTIME PRN PRN Reason: Insomnia Last Admin: 12/30/23 20:36 Dose: 6 mg Documented By: ISATU Potassium Chloride (Potassium Chloride Er 10 Meq Tablet.Er) 10 meq PO DAILY [facility] Last Admin: 12/31/23 08:01 Dose: 10 meq Documented By: MARKOS Pravastatin Sodium (Pravastatin Sodium 10 Mg Tablet) 10 mg PO DAILY [facility] Last Admin: 12/31/23 08:01 Dose: 10 mg Documented By: MARKOS Sodium Chloride (0.9 % Sodium Chloride Flush 3 Ml Syringe) 3 ml IVFLUSH QSHIFT [facility] Last Admin: 12/31/23 08:02 Dose: 3 ml Documented By: MARKOS Tamsulosin HCl (Tamsulosin Hcl 0.4 Mg Capsule) 0.4 mg PO DAILY [facility] Last Admin: 12/31/23 08:01 Dose: 0.4 mg Documented By: MARKOS Labs 12/30/23 13:37 12/29/23 13:17 Labs: Laboratory Results - last 24 hr 12/30/23 12/30/23 12/30/23 11:36 13:37 16:20 MCV 86.1 MCH 26.3 L MCHC 30.5 L RDW 17.1 H Plt Count 339 MPV 9.1 L Immature Gran % (Auto) 0.4 Neut % (Auto) 71.3 Lymph % (Auto) 5.5 L [place] % (Auto) 6.1 Eos % (Auto) 16.3 H Baso % (Auto) 0.4 Lymph # (Auto) 0.7 L [place] # (Auto) 0.7 Eos # (Auto) 2.0 H Baso # (Auto) 0.1 Abs Immat Gran (auto) 0.05 H Absolute Neuts (auto) 8.5 H Absolute Nucleated RBC 0.000 Nucleated RBC % (auto) 0.0 POC Glucose 132 H 136 H 12/30/23 12/31/23 20:31 07:14 MCV MCH MCHC RDW Plt Count MPV Immature Gran % (Auto) Neut % (Auto) Lymph % (Auto) [place] % (Auto) Eos % (Auto) Baso % (Auto) Lymph # (Auto) [place] # (Auto) Eos # (Auto) Baso # (Auto) Abs Immat Gran (auto) Absolute Neuts (auto) Absolute Nucleated RBC Nucleated RBC % (auto) POC Glucose 105 99 Assessment and Plan (1) Bacteremia: Status: Acute Plan 83-year-old man admitted with septic shock from unknown source at this time although he did present from the [facility] facility with dyspnea and nonproductive cough. sepsis due to bacteremia Leukocytosis, tachycardia, tachypnea, lactic acidosis, hypotension on admission; resolved. Treated with IV fluids in the ED with good rise of blood pressure Enterococcus faecium growing from mid line (pulled in ED) -sensitivities indicate VRE ID following - initially treated with IV vancomycin and Zosyn, will change to Zyvox- can d/c with PO abx Surveillance cultures negative at 48 hours Leukocytosis trending up yesterday, but no change in clinical condition. no sob, fever or urinary symptoms will trend CBC UTI Previously with ESBL UTI and discharged on ertapenem Urine culture on this admission growing stenotrophomonas maltophilia - no need to treat per ID NSVT Had 1 episode NSVT, 5 beats during breathing treatment Patient asymptomatic Continue baseline beta marika, blood pressure soft unable to titrate up Known low EF start po mag replacement Changed albuterol to Xopenex breathing treatments If recurs we will consider repeat/cardiology consultation Acute on chronic respiratory failure with history of bronchiectasis/JESSA back to baseline o2 3L Chest x-ray showing interval decrease in the opacity at the left lung base without superimposed acute process, otherwise extensive chronic bronchial disease. respiratory pathogen panel negative continue prn breathing treatments Paroxysmal atrial fibrillation On Eliquis and beta-marika Nonischemic cardiomyopathy EF from may 35-40% On carvedilol,and Bumex no overt fluid overload due to soft bp will change bumex to 0.5 bid and monitor bp. Will consider changing to 0.5 mg once daily depending on blood pressure/fluid status Diabetes mellitus hold metformin Sliding scale, ADA diet BPH continue flomax, proscar Moderate protein calorie malnutrition/debility As evidenced by BMI 17.1 Dietary supplements added seen by speech, patient is edentulous, recommended NDD1 diet. Previous MBSS in May did not show aspiration PT recommended return to rehab pt appears very weak and frail, discussed code status, at this time wants to remain full code DVT prophylaxis with apixaban Full code, confirmed with patient; attempted to call HCP Leti to discuss overall declining health, no answer Requires ongoing inpatient stay for management of bacteremia requiring IV antibiotics extend specialist evaluation Quality Stroke Does the patient have a stroke diagnosis?: No VTE Prior VTE?: No VTE Risk Level:: Medical - moderate - high VTE Device Contraindication: N/A - Device Ordered VTE Drug Contraindication: Treatment Not Indicated
--- NOTE | 2023-12-31 10:37 | PM.DS ---
DS: Providers Provider Date of Service: 12/31/23 Date of admission: 12/24/23 15:27 Primary care physician: Olga Calzada MD Consults: 12/24/23 18:46 Consult to Wound Care Routine Reason for consultation: Stage II coccyx 12/25/23 14:17 Consult to Infectious Diseases Routine Consulting Provider: [facility] Reason for consultation: [facility] bacteremia DS: Diagnosis Discharge Diagnosis (1) Bacteremia: Status: Acute DS: Summary Hospital Course Hospital Course: 83-year-old man presenting from long-term facility with 3 days of dyspnea and nonproductive cough. Patient has a history of bronchiectasis in his on baseline 3 L of oxygen via nasal cannula. He was recently discharged from [facility] on 12/21/2023. He was noted to have leukocytosis, tachycardia, tachypnea and lactic acidosis. Chest x-ray showing interval decrease an opacity at the left lung base otherwise extensive chronic bronchial disease without superimposed acute infectious process. He had the PICC line removed in the ER as this may be a possible source the septic shock. Blood pressures are better after IV fluids. He received IV vancomycin, Zosyn, Diflucan, Solu-Medrol, IV fluids in the ER. He will be admitted for further management and treatment of septic shock. sepsis due to bacteremia Leukocytosis, tachycardia, tachypnea, lactic acidosis, hypotension on admission; resolved. Treated with IV fluids in the ED with good rise of blood pressure Enterococcus faecium growing from mid line (pulled in ED) -sensitivities indicate VRE ID following - initially treated with IV vancomycin and Zosyn, changed to Zyvox total 14 days Surveillance cultures negative at 48 hours Leukocytosis trending up yesterday, but no change in clinical condition. no sob, fever or urinary symptoms UTI Previously with ESBL UTI and discharged on ertapenem Urine culture on this admission growing stenotrophomonas maltophilia - no need to treat per ID NSVT Had 1 episode NSVT, 5 beats during breathing treatment Patient asymptomatic Continue baseline beta marika, blood pressure soft unable to titrate up Known low EF po mag replacement Changed albuterol to Xopenex breathing treatments Acute on chronic respiratory failure with history of bronchiectasis/JESSA back to baseline o2 3L Chest x-ray showing interval decrease in the opacity at the left lung base without superimposed acute process, otherwise extensive chronic bronchial disease. respiratory pathogen panel negative continue prn breathing treatments Paroxysmal atrial fibrillation On Eliquis and beta-marika Nonischemic cardiomyopathy EF from may 35-40% On carvedilol,and Bumex no overt fluid overload due to soft bp will change bumex to 0.5 bid and monitor bp. Diabetes mellitus metformin BPH continue flomax, proscar Moderate protein calorie malnutrition/debility As evidenced by BMI 17.1 Dietary supplements added seen by speech, patient is edentulous, recommended NDD1 diet. Previous MBSS in May did not show aspiration PT recommended return to rehab pt appears very weak and frail, discussed code status, at this time wants to remain full code Time Attestation Discharge Coordination Time (in mins): 42 Quality: Safe Use of Opioids Does Pt have an Active Cancer Diagnosis on the Problem List?: No Quality: Stroke Does the patient have a stroke diagnosis?: No Physical Exam Vital Signs: Vital Signs: Last Vital Signs Temp 97.2 F 12/31/23 07:43 Pulse 85 12/31/23 07:43 Resp 20 12/31/23 07:43 BP 103/55 L 12/31/23 07:43 Pulse Ox 95 12/31/23 07:43 O2 Del Method Nasal Cannula 12/31/23 07:43 O2 Flow Rate 3 12/31/23 07:43 Oxygen Flow Rate 4 12/24/23 12:11 BMI result Body Mass Index 17.1 Appearing in no acute distress head is normocephalic atraumatic eyes pupils are PERRLA sclera is anicteric mouth throat mucous membranes are intact and moist neck is supple no lymphadenopathy, no JVD noted lung sounds are clear to auscultation heart regular rate rhythm, clear S1, S2 positive bowel sounds, abdomen is soft, nontender neuro patient is alert x3, no focal deficits DS: Data Data Completed and Pending Completed studies during hospitalization [Text1]: Procedures Insertion of Infusion Device into Left Brachial Vein, Percutaneous Approach (05/25/22) Insertion of Infusion Device into Right Brachial Vein, Percutaneous Approach (12/19/23) Insertion of Infusion Device into Right Cephalic Vein, Percutaneous Approach (12/07/21) Insertion of Infusion Device into Superior Vena Cava, Percutaneous Approach (12/07/21) Introduction of Remdesivir Anti-infective into Peripheral Vein, Percutaneous Approach, [employer] (03/18/23) Ultrasonography of Superior Vena Cava, Guidance (12/07/21) Labs on day of discharge: Laboratory Results - last 24 hr 12/30/23 12/30/23 12/30/23 11:36 13:37 16:20 WBC 11.9 H RBC 3.39 L Hgb 8.9 L Hct 29.2 L MCV 86.1 MCH 26.3 L MCHC 30.5 L RDW 17.1 H Plt Count 339 MPV 9.1 L Immature Gran % (Auto) 0.4 Neut % (Auto) 71.3 Lymph % (Auto) 5.5 L [place] % (Auto) 6.1 Eos % (Auto) 16.3 H Baso % (Auto) 0.4 Lymph # (Auto) 0.7 L [place] # (Auto) 0.7 Eos # (Auto) 2.0 H Baso # (Auto) 0.1 Abs Immat Gran (auto) 0.05 H Absolute Neuts (auto) 8.5 H Absolute Nucleated RBC 0.000 Nucleated RBC % (auto) 0.0 POC Glucose 132 H 136 H 12/30/23 12/31/23 20:31 07:14 WBC RBC Hgb Hct MCV MCH MCHC RDW Plt Count MPV Immature Gran % (Auto) Neut % (Auto) Lymph % (Auto) [place] % (Auto) Eos % (Auto) Baso % (Auto) Lymph # (Auto) [place] # (Auto) Eos # (Auto) Baso # (Auto) Abs Immat Gran (auto) Absolute Neuts (auto) Absolute Nucleated RBC Nucleated RBC % (auto) POC Glucose 105 99 Preliminary micro results at discharge 12/26/23 15:24 Blood Culture - Preliminary Blood - Venous No growth after 48 hours. 12/26/23 15:24 Blood Culture - Preliminary Blood - Venous No growth after 48 hours. Discharge Plan Discharge Anticipated Discharge Date/Time: 12/31/23 12:31 Patient Disposition: Xfer SNF Discharge Diagnosis: Sepsis secondary to E coli bacteremia Leukocytosis E coli UTI NSVT Acute on chronic respiratory failure Moderate protein calorie malnutrition Referrals: [facility] [Outside] - 1 Week Olga North MD [Primary Care Provider] - 1 Week Discharge Medications: New magnesium oxide 400 mg (241.3 mg magnesium) Tablet 400 mg PO DAILY Qty: 30 0RF linezolid 600 mg Tablet 600 mg PO Q12H Qty: 14 0RF bumetanide 1 mg Tablet 0.5 mg PO BID@0800,1700 Qty: 60 0RF Protocol: Hold for SBP< HOLD for SBP < : 90 Continued metformin 500 mg tablet 500 mg PO DAILY carvedilol 6.25 mg tablet 6.25 mg PO BID ipratropium-albuterol 0.5 mg-3 mg(2.5 mg base)/3 mL solution for nebulization 3 ml inhalation QID PRN (Reason: Shortness Of Breath Or Wheezing) potassium chloride 10 mEq tablet extended release 10 meq PO DAILY lovastatin 10 mg tablet 10 mg PO DAILY tamsulosin 0.4 mg capsule 0.4 mg PO DAILY albuterol sulfate [Ventolin HFA] 90 mcg/actuation HFA aerosol inhaler 2 inh inhalation Q6H PRN (Reason: Shortness Of Breath Or Wheezing) finasteride 5 mg tablet 5 mg PO DAILY Eliquis 5 mg tablet 5 mg PO BID Anoro Ellipta 62.5-25 mcg/actuation blister with device 1 ea inhalation DAILY Discontinued bumetanide 1 mg tablet 1 mg PO DAILY Discharge Orders: Discharge Order (Routine); Ordered 12/31/23 Ordered By: Chrissy Lopez Diet: Advance to usual diet Activity on Discharge: As tolerated Stand Alone Forms: Patient Portal Discharge page Print Language: Tajik Care Plan Goals: Transfer to short-term rehab for physical therapy Health Concerns: Sepsis secondary to E coli bacteremia Leukocytosis E coli UTI NSVT Acute on chronic respiratory failure Moderate protein calorie malnutrition Plan of Treatment: Follow-up with primary care provider as needed Take all medications as prescribed Assessment: See discharge summary
--- NOTE | 2023-12-31 11:08 | MHC.CLN ---
F/U PO INTAKE 75-100% CONSISTENTLY DIET RX: 1800DM PUREED-DIET WILL MEET PT'S NEEDS AND PROMOTE SLOW WT GAIN PT RECEIVING ENSURE MAX BID TO INCREASE KCALS AND PROMOTE WOUND HEALING SUPP PROVIDES 300KCALS, 60G PROTEIN CONTINUE TO MONITOR PO INTAKE AND ENCOURAGE SUPPLEMENTS
[2023-12-31 11:28] LABS: Glucose, Whole Blood 147 mg/dL (60-115)
--- NOTE | 2023-12-31 11:34 | MHC.SLORD ---
Speech Language Pathology Order Status: Pt c/o diarrhea and difficulty breathing when utility repairer present. Pt refused sips of gingerale, altered mental status persisting per RN. ST to followup in assessing PO tolerance
[2023-12-31] MEDS: Loperamide HCl 2 MG CAPSULE PO (11:40)
--- NOTE | 2023-12-31 11:42 | MHC.CM.PN ---
Patient has been medically cleared for dc to SNF/STR today. Patient will return to [facility] today at 1PM, via [facility] ([facility] transportation auth # is [id number]). CM met with Patient and his at bedside and addressed IMM with them (the original has been given to Patient and a copy has been placed on the chart).
[2023-12-31 11:51] VITALS: PULSE 85; RESP 20; O2SAT 94
[2023-12-31 12:00] VITALS: PULSE 88; RESP 20; TEMP 36.6; O2SAT 93
== END 2023-12-31 14:00 | disposition skilled nursing facility (03) | DRG 314 ==
LOC: HO.ED 14:18 → HO.EDOVER 15:31 → HO.IMC 16:41
PROVIDERS: Physician Assistant Medical; Admitting Provider Nurse Practitioner Acute Care; Emergency Provider Emergency Medicine; PCP Internal Medicine; Visit Provider Nurse Practitioner Acute Care
DX: T82.7XXA Infection and inflammatory reaction due to other cardiac and vascular devices, implants and grafts, initial encounter (principal); A41.9 Sepsis, unspecified organism; R65.21 Severe sepsis with septic shock; J96.21 Acute and chronic respiratory failure with hypoxia; E44.0 Moderate protein-calorie malnutrition; I42.8 Other cardiomyopathies; I47.20 Ventricular tachycardia, unspecified; Z16.21 Resistance to vancomycin; E11.9 Type 2 diabetes mellitus without complications; B95.2 Enterococcus as the cause of diseases classified elsewhere; N40.0 Benign prostatic hyperplasia without lower urinary tract symptoms; J47.9 Bronchiectasis, uncomplicated; Z99.81 Dependence on supplemental oxygen; Z87.440 Personal history of urinary (tract) infections; Z79.01 Long term (current) use of anticoagulants; Z79.84 Long term (current) use of oral hypoglycemic drugs; Z79.899 Other long term (current) drug therapy
CPT/HCPCS: 36415; 71045; 80048; 80053; 80076; 80202; 81001; 82565; 82803; 82947; 83605; 83690; 83735; 83880; 84484; 85025; 85027; 87040; 87077; 87086; 87088; 87186; 87205; 87633; 92610; 93005; 97162; 97530; 99285; J1450; J2020; J2543; J2919; J3370; J3371; J3475

== ENCOUNTER → 2023-12-24 12:18 | Outpatient (BNV) | payer OTHER, SELFPAY | PROVIDERS: Admitting Provider Nurse Practitioner Acute Care; Emergency Provider Emergency Medicine; PCP Internal Medicine; Visit Provider Internal Medicine | DX: I45.2 Bifascicular block (principal) | CPT/HCPCS: 93010 ==

== ENCOUNTER → 2023-12-24 15:27 | Outpatient (BNV) | payer OTHER, SELFPAY | PROVIDERS: Admitting Provider Nurse Practitioner Acute Care; Emergency Provider Emergency Medicine; PCP Internal Medicine; Visit Provider Nurse Practitioner Acute Care | DX: A41.9 Sepsis, unspecified organism (principal); R65.21 Severe sepsis with septic shock | CPT/HCPCS: 99223; 99232; 99239; 99499 ==

== ENCOUNTER → 2023-12-24 15:27 | Outpatient (BNV) | payer OTHER, SELFPAY | PROVIDERS: Admitting Provider Nurse Practitioner Acute Care; Emergency Provider Emergency Medicine; PCP Internal Medicine; Visit Provider Internal Medicine | DX: A41.9 Sepsis, unspecified organism (principal); R65.21 Severe sepsis with septic shock; N39.0 Urinary tract infection, site not specified; B96.29 Other Escherichia coli [E. coli] as the cause of diseases classified elsewhere; Z16.12 Extended spectrum beta lactamase (ESBL) resistance; R53.1 Weakness | CPT/HCPCS: 99222 ==

== ENCOUNTER 2024-02-10 19:43 | Emergency (ER) | payer OTHER, SELFPAY ==
--- NOTE | ~2024-02-10 | XR_ITS ---
EXAMINATION: XR CHEST CLINICAL INFORMATION: coughing up blood COMPARISON: Chest radiograph dated December 24, 2023. TECHNIQUE: Frontal view of the chest was obtained. FINDINGS: The right sided midline catheter is no longer seen. The cardiomediastinal silhouette is unchanged in size and configuration. There is extensive fibrotic/cystic lung disease, similar in appearance to the prior chest radiograph. There is no large pleural effusion. No convincing pneumothorax. No acute osseous abnormality. XR/XR chest 1V IMPRESSION: Stable appearance of the heart and lungs. Extensive fibrotic/cystic lung disease without evidence for a superimposed acute process. Electronically signed by: Luke Gonzalez DO 02/10/2024 10:16 PM [facility]
--- NOTE | ~2024-02-10 | CT_ITS ---
EXAMINATION: CT CHEST WITHOUT CONTRAST CLINICAL INFORMATION: Hemoptysis. COMPARISON: August 09, 2023 TECHNIQUE: Multidetector volumetric CT imaging of the chest was done. Axial MIP volume rendering provided. Sagittal and coronal reformatted images were obtained. This CT examination was performed using dose optimization techniques as appropriate, variously including the following: *Automated exposure control *Adjustment of mA and/or kV according to patient size (this includes techniques or standardized protocols for targeted exams where dose is matched to indication/reason for exam; i.e. extremities or head) *Use of iterative reconstruction technique DLP: 238 mGy-cm FINDINGS: SSIS DEVELOPER: There is diffuse interstitial coarsening, apparent diffuse bronchiectasis and bullous/cystic changes. LUNGS: There is again seen diffuse bilateral bronchiectasis, bronchial thickening and bronchial opacities/fluid. There is also diffuse bilateral bullous/cystic change most prominent on the right and in the upper lung marcial. There is atelectatic change at the right lung base. There is no definitive new areas of consolidation or new significant mass. MEDIASTINUM: The heart is normal in size. There is no significant pericardial effusion. There is no significant lymph node enlargement. There is mild atherosclerotic plaque of the thoracic aorta without evidence for aneurysm. CORONARY ARTERY CALCIFICATION: Moderate. PLEURA: There is no pleural effusion. No pleural mass or thickening. AXILLA: No lymphadenopathy. UPPER ABDOMEN: Unremarkable. OSSEOUS STRUCTURES: Unremarkable. CT/CT chest wo IV con IMPRESSION: Diffuse bilateral bronchiectasis, bronchial thickening and bronchial opacities/fluid. There is also diffuse bilateral bullous/cystic change. There is no definitive new areas of consolidation or new significant mass. No significant interval change. Fleischner guidelines were followed. Electronically signed by: William Jackson MD 02/10/2024 11:44 PM [facility]
[2024-02-10 19:47] VITALS: BP 138/72; PULSE 78; O2SAT 97
--- NOTE | 2024-02-10 19:49 | ED.GENADULT ---
HPI - General Adult General Chief complaint: General Medical Stated complaint: HEMOPTYSIS Time Seen by Provider: 02/10/24 19:48 Source: patient and EMS Mode of arrival: EMS Limitations: no limitations History of Present Illness ED Provider: HPI narrative: 83-year-old [place] Sudanese-speaking male with pertinent history of chronic hypoxic respiratory failure due to COPD on 3 L supplemental oxygen, congestive heart failure with reduced ejection fraction, paroxysmal atrial fibrillation on Eliquis, nonischemic cardiomyopathy, [id number]-[id number] type 2 diabetes mellitus, mixed hyperlipidemia, hypertension, BPH, gastroesophageal reflux disease, lumbar disc disease recently admitted and discharged on 12/30 for culture positive for Enterococcus faecium of the PICC line catheter treated with Zyvox for 14 days comes here for hemoptysis just started prior to arrival no shortness a breath Related Data Home Medications ?Medication ?Instructions ?Recorded ?Confirmed albuterol sulfate 90 mcg/actuation 2 inh inhalation Q6H PRN Shortness 12/24/23 12/24/23 aerosol inhaler (Ventolin HFA) Of Breath Or Wheezing apixaban 5 mg tablet (Eliquis) 5 mg PO BID 12/24/23 12/24/23 carvedilol 6.25 mg tablet 6.25 mg PO BID 12/24/23 12/24/23 finasteride 5 mg tablet 5 mg PO DAILY 12/24/23 12/24/23 ipratropium 0.5 mg-albuterol 3 mg 3 ml inhalation QID PRN Shortness 12/24/23 12/24/23 (2.5 mg base)/3 mL nebulization Of Breath Or Wheezing soln lovastatin 10 mg tablet 10 mg PO DAILY 12/24/23 12/24/23 metformin 500 mg tablet 500 mg PO DAILY 12/24/23 12/24/23 potassium chloride 10 mEq 10 meq PO DAILY 12/24/23 12/24/23 tablet,extended release tamsulosin 0.4 mg capsule 0.4 mg PO DAILY 12/24/23 12/24/23 umeclidinium 62.5 mcg-vilanterol 1 ea inhalation DAILY 12/24/23 12/24/23 25 mcg/actuation powdr for inhalation (Anoro Ellipta) Previous Rx's ?Medication ?Instructions ?Recorded bumetanide 1 mg tablet 0.5 mg PO BID@0800,1700 #60 tabs 12/31/23 linezolid 600 mg tablet 600 mg PO Q12H #14 tabs 12/31/23 magnesium oxide 400 mg (241.3 mg 400 mg PO DAILY #30 tabs 12/31/23 magnesium) tablet apixaban 2.5 mg tablet (Eliquis) 2.5 mg PO BID #60 tabs 02/11/24 Allergies Allergy/AdvReac Type Severity Reaction Status Date / Time Penicillins [PENICILLINS] Allergy Intermediate PASSED Verified 02/10/24 19:51 OUT trazodone Allergy Intermediate tremors Verified 02/10/24 19:51 brimonidine [From Alphagan P] Allergy Unknown Verified 02/10/24 19:51 diphenhydramine Allergy Unknown Verified 02/10/24 19:51 [From Benadryl] Review of Systems Review of Systems: Yes all other systems are reviewed and are negative REPLACED BY [facility] Past Medical History Medical History Bronchiectasis COPD (chronic obstructive pulmonary disease) Acute hypoxemic respiratory failure Hearing loss Chronic hypoxic respiratory failure Bronchiectasis NICM (nonischemic cardiomyopathy) Swallowing problem 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 Kidney stone on left side Paroxysmal atrial fibrillation Congestive heart failure Acute and chronic respiratory failure BPH loc w urin obs/LUTS Urinary retention History of COVID-19 Chronic anticoagulation History of pneumothorax Diabetes Supplemental oxygen dependent Kidney stone on left side JESSA (mycobacterium avium-intracellulare) Bronchiectasis Glaucoma Pure hypercholesterolemia GERD (gastroesophageal reflux disease) History of MAC infection Essential hypertension Surgical History History of transurethral resection of bladder tumor (TURBT) History of cataract surgery History of left inguinal hernia repair History of bronchoscopy History of colonoscopy History of lumbar surgery History of cystoscopy Family History Family History Father No problems noted. Mother Medical history unknown Sister Diabetes Daughter In good health Son In good health Brother No problems noted. 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 Housing: Apartment Housing Other:: Gianluca Mack Are you a primary managed care specialist to a significant other at home: No Do you presently have visiting nurse or other home services: Yes Alcohol intake: never Comment: 1:1 sitter in room Patient Tobacco Use Status: Former Tobacco user Tobacco use type: Cigarette Cigarette Packs Per Day: 1 Cigarettes Per Day: 20.0 Smoked in Last 30 Days: No e-Cigarette/Vaping Use: Former Use Second Hand Smoke Exposure: No Use of substances other than those prescribed or required for medical reasons: No Advance Directives: Yes Advance Directives on File: Yes Advance Directives Date on File: 02/03/22 service: No Current occupational status: retired Cognitive needs: No Hearing needs: Yes Vision needs: Yes Physical Exam ED Vital Signs: Vital Signs - 24 hr 02/10/24 19:50 Temperature 97.9 F Pulse Rate 81 Respiratory Rate 16 Blood Pressure 118/72 Pulse Oximetry 100 Oxygen Delivery Method Nasal Cannula BMI result Body Mass Index 20.0 Appearance: Alert. Oriented X3. No acute distress. Eyes: PERRLA, No Nystagmus ENT: Pharynx normal. Oral Mucosa moist Neck: Normal inspection. Neck supple. CVS: Normal heart rate and rhythm. Pulses normal. Respiratory: No respiratory distress. Equal air entry bilateral, no wheezing/rales/rhonchi bilateral conducted sounds Abdomen: Soft and nontender. Bowel sounds are present, no mass palpable, no CVA tenderness Skin: Skin warm and dry. Normal skin color. Normal skin turgor. Extremities: No lower extremity edema. No calf tenderness Neuro: Oriented X 3. No motor deficit. No sensory deficit.No cerebellar signs , cranial nerves II-XII intact Medications Administered Discontinued Medications Generic Name Dose Route Start Last Admin Trade Name Yasmanyq PRN Reason Stop Dose Admin Guaifenesin/Codeine Phosphate 10 ml 02/10/24 20:20 02/10/24 20:30 Guaifen/Codeine Sf 200/20/10ml 10 Ml Liquid PO 02/10/24 20:21 10 ml ONCE ONE Administration Medical Decision Making Medical Decision Making [facility] Narrative: Patient with AFib on Eliquis 5 mg twice daily with body weight of 52 kg and 83 years old comes here with hemoptysis minor amount CT chest negative for acute bleeding patient did not have any significant hemoptysis during the stay in the ER vitals are stable patient should be on 2.5 mg of Eliquis instead of 5 mg because of age 83 and weight less than 60 kg will discharge the patient back to senior living advised to hold the Eliquis for 24 hours and restarted at 2.5 mg twice daily if this no hemoptysis Differential Diagnosis Differential Diagnoses: The differential diagnosis associated with the presentation includes Admission/Observation Consideration of admission/observation: Escalation of care including admission/observation considered Lab Data MDM Lab Attestation statement: I reviewed the patient's lab results. 02/10/24 20:28 02/10/24 20:28 Labs: Lab Results 02/10/24 Range/Units 20:28 WBC 10.8 (4.8-10.8) X10*3/uL RBC 3.39 L (4.60-5.80) X10*6/uL Hgb 8.8 L (14.0-18.0) g/dl Hct 28.4 L (42.0-52.0) % MCV 83.8 (80.0-98.0) fL MCH 26.0 L (27.0-33.0) pg MCHC 31.0 (31.0-36.0) g/dl RDW 15.3 (11.0-16.0) % Plt Count 382 (160-400) X10*3/uL MPV 9.5 (9.4-12.4) fL Immature Gran % (Auto) 0.3 (0.0-0.4) % Neut % (Auto) 66.1 (45-73) % Lymph % (Auto) 8.7 L (20-40) % [place] % (Auto) 8.1 (2-11) % Eos % (Auto) 16.0 H (0-4) % Baso % (Auto) 0.8 (0-2) % Lymph # (Auto) 0.9 L (1.2-4.9) X10*3/uL [place] # (Auto) 0.9 (0.1-1.2) X10*3/uL Eos # (Auto) 1.7 H (0.0-0.4) X10*3/uL Baso # (Auto) 0.1 (0.0-0.2) X10*3/uL Abs Immat Gran (auto) 0.03 (0.00-0.03) X10*3/uL Absolute Neuts (auto) 7.1 (2.0-8.3) x10*3/uL Absolute Nucleated RBC 0.000 (0.0-0.012) X10*3/uL Nucleated RBC % (auto) 0.0 (0.0-0.2) /100WBC PT 15.6 H (10.9-12.4) SEC INR 1.3 H (0.9-1.1) Sodium 133 L (135-145) mmol/L Potassium 4.7 (3.3-5.1) mmol/L Chloride 94 L (96-108) mmol/L Carbon Dioxide 34 H (22-29) mmol/L Anion Gap 10 L (12-20) BUN 20 H (9-16) mg/dL Creatinine 0.64 (0.5-1.4) mg/dL Estim Creat Clear Calc 67.6 Estimated GFR > 60 Random Glucose 101 (60-115) mg/dL Calcium 9.1 (8.4-10.2) mg/dL Total Bilirubin 0.2 (0.0-1.0) mg/dL AST 20 (5-37) U/L ALT 14 (0-40) U/L Alkaline Phosphatase 64 (39-117) U/L Total Protein 7.5 (6.5-8.0) g/dL Albumin 3.1 L (3.5-5.0) g/dL Radiology Impression Discussion of test interpretation with radiology: I have reviewed the radiologist's reading. Radiologist Impression: CT/CT chest wo IV con IMPRESSION: Diffuse bilateral bronchiectasis, bronchial thickening and bronchial opacities/fluid. There is also diffuse bilateral bullous/cystic change. There is no definitive new areas of consolidation or new significant mass. No significant interval change. Fleischner guidelines were followed. Electronically signed by: William Jackson MD 02/10/2024 11:44 PM [facility] Discharge Plan Discharge Clinical Impression: Hemoptysis Patient Disposition: Xfer SNF Transfer Details: Hold Eliquis for 24 hours/till hemoptysis continue, restart at 2.5 mg twice daily if hemoptysis stops, and follow up with PCP Instructions: Hemoptysis (ED) Additional Instructions: Hold Eliquis for 24hrs If hemoptysis stops done start the Eliquis at lower dose of 2.5 mg twice daily instead of 5 mg Follow with your PCP Prescriptions: New Eliquis 2.5 mg tablet 2.5 mg PO BID Qty: 60 0RF No Action metformin 500 mg tablet 500 mg PO DAILY carvedilol 6.25 mg tablet 6.25 mg PO BID ipratropium-albuterol 0.5 mg-3 mg(2.5 mg base)/3 mL solution for nebulization 3 ml inhalation QID PRN (Reason: Shortness Of Breath Or Wheezing) potassium chloride 10 mEq tablet extended release 10 meq PO DAILY lovastatin 10 mg tablet 10 mg PO DAILY tamsulosin 0.4 mg capsule 0.4 mg PO DAILY albuterol sulfate [Ventolin HFA] 90 mcg/actuation HFA aerosol inhaler 2 inh inhalation Q6H PRN (Reason: Shortness Of Breath Or Wheezing) finasteride 5 mg tablet 5 mg PO DAILY Eliquis 5 mg tablet 5 mg PO BID Anoro Ellipta 62.5-25 mcg/actuation blister with device 1 ea inhalation DAILY magnesium oxide 400 mg (241.3 mg magnesium) Tablet 400 mg PO DAILY Qty: 30 0RF linezolid 600 mg Tablet 600 mg PO Q12H Qty: 14 0RF bumetanide 1 mg Tablet 0.5 mg PO BID@0800,1700 Qty: 60 0RF Protocol: Hold for SBP< HOLD for SBP < : 90 Print Language: South Sudanese
[2024-02-10 19:50] VITALS: BP 118/72; PULSE 81; RESP 16; TEMP 36.6; O2SAT 100
[2024-02-10] MEDS: guaiFEN/Codeine SF 200/20/10ML 10 ML LIQUID PO (20:30)
[2024-02-10 20:44] LABS: Basophils Absolute Auto 0.1 X10*3/uL (0.0-0.2); Basophils Percent Auto 0.8 % (0-2); Eosinophils Absolute Auto 1.7 X10*3/uL (0.0-0.4); Hematocrit 28.4 % (42.0-52.0); Hemoglobin 8.8 g/dl (14.0-18.0); Imm Gran Abs Auto 0.03 X10*3/uL (0.00-0.03); Imm Gran Pct Auto 0.3 % (0.0-0.4); Lymphocytes Absolute Auto 0.9 X10*3/uL (1.2-4.9); Lymphocytes Percent Auto 8.7 % (20-40); MANUAL DIFF FLAG NO; Mean Corpuscular Volume 83.8 fL (80.0-98.0); Mean Platelet Volume 9.5 fL (9.4-12.4); Monocytes Absolute Auto 0.9 X10*3/uL (0.1-1.2); Monocytes Percent Auto 8.1 % (2-11); Neutrophils Absolute Auto 7.1 x10*3/uL (2.0-8.3); Neutrophils Percent Auto 66.1 % (45-73); Platelet Count 382 X10*3/uL (160-400); Red Blood Count 3.39 X10*6/uL (4.60-5.80); Red Cell Distribution Width 15.3 % (11.0-16.0); White Blood Count 10.8 X10*3/uL (4.8-10.8)
[2024-02-10 20:50] LABS: INTERNATIONAL NORM RATIO 1.3 (0.9-1.1); Prothrombin Time 15.6 SEC (10.9-12.4)
[2024-02-10 21:10] LABS: Alanine Aminotransferase 14 U/L (0-40); Albumin Level 3.1 g/dL (3.5-5.0); Alkaline Phosphatase 64 U/L (39-117); Anion Gap 10 (12-20); Aspartate Amino Transferase 20 U/L (5-37); Bilirubin Total 0.2 mg/dL (0.0-1.0); Blood Urea Nitrogen 20 mg/dL (9-16); Calcium 9.1 mg/dL (8.4-10.2); Carbon Dioxide 34 mmol/L (22-29); Chloride 94 mmol/L (96-108); Creatinine Clr Calc Pharmacy 67.6; Estimated Glomerular Filt Rate > 60; Glucose Random 101 mg/dL (60-115); Potassium 4.7 mmol/L (3.3-5.1); Sodium 133 mmol/L (135-145); Total Protein 7.5 g/dL (6.5-8.0)
[2024-02-11 00:44] VITALS: BP 97/58; PULSE 85; RESP 16; TEMP 36.8; O2SAT 100
[2024-02-11 00:55] VITALS: BP 97/58; PULSE 85; RESP 16; TEMP 36.8; O2SAT 100
== END 2024-02-11 00:56 | disposition skilled nursing facility (03) ==
PROVIDERS: Emergency Provider Internal Medicine; PCP Internal Medicine
DX: R04.2 Hemoptysis (principal); J44.9 Chronic obstructive pulmonary disease, unspecified; I48.91 Unspecified atrial fibrillation; E11.9 Type 2 diabetes mellitus without complications; Z79.01 Long term (current) use of anticoagulants; Z99.81 Dependence on supplemental oxygen; Z79.899 Other long term (current) drug therapy; Z87.891 Personal history of nicotine dependence
CPT/HCPCS: 36415; 71045; 71250; 80053; 85025; 85610; 99284

== ENCOUNTER 2024-02-13 04:37 | Inpatient (IN) | payer OTHER, SELFPAY ==
[2024-02-13] VITALS (11 sets, daily range): BP systolic 90–124; BP diastolic 40–73; PULSE 72–96; RESP 11–20; TEMP 36.4–37.2; O2SAT 95–100; BMI 18.3; BMI 19.4
--- NOTE | ~2024-02-13 | CT_ITS ---
EXAMINATION: CT CHEST WITH CONTRAST CLINICAL INFORMATION: Hemoptysis COMPARISON: Reason CT chest dated February 10, [address] chest in multiple months during 2023. TECHNIQUE: Multidetector volumetric CT imaging of the chest was obtained after the administration of 65 mL of Omnipaque 350 intravenous contrast without immediate adverse reactions. Axial MIP volume rendering provided. Sagittal and coronal reformatted images were obtained. This CT examination was performed using dose optimization techniques as appropriate, variously including the following: *Automated exposure control *Adjustment of mA and/or kV according to patient size (this includes techniques or standardized protocols for targeted exams where dose is matched to indication/reason for exam; i.e. extremities or head) *Use of iterative reconstruction technique DLP: 237 mGy-cm FINDINGS: SCENIC ARTS SUPERVISOR: Multiple, different sizes, thin wall cysts,/ cylindric bronchiectasis throughout the lungs more conspicuous in the right lung resulting in volume loss. Multiple tree in bud pattern attenuation in the periphery of the lungs more conspicuous in the lower lung lobes. Secretions layering in a dependent portion of the distal trachea, jenn and right mainstem bronchus. Secretions within the small pulmonary bronchi in the lung bases. Bilateral scattered noncalcified pulmonary nodules, the largest measures 9 mm in the right lower lung lobe. No gross pleural effusion. No pneumothorax. Lymphadenopathy, mediastinum and pulmonary hilum bilaterally. No aneurysm or dissection, thoracic aorta. Calcified plaques throughout the thoracic aorta wall its main branches and the coronary arteries. No pericardial effusion. Small hiatal hernia. Subcentimeter low-density nodules in a nonenlarged thyroid gland. Multilevel cervical thoracic and upper lumbar spondylosis. No acute fracture or gross listhesis. No lytic or blastic lesions. Osteopenia versus osteoporosis. CT/CT chest w IV con IMPRESSION: Concerning mycobacterium pneumonia versus fungal pneumonia among other opportunistic infection such as pneumocystis Carini. Aspiration. Consider medical condition such as HIV/AIDS Fleischner guidelines were followed. Electronically signed by: Quintin Rea MD 02/13/2024 08:27 AM EST
--- NOTE | ~2024-02-13 | CT_ITS ---
EXAMINATION: CT ANGIOGRAM NECK CLINICAL INFORMATION: Oropharynx bleeding. COMPARISON: None available. TECHNIQUE: Initial noncontrast manager of internal imaging of the neck was performed. Test bolus sequences followed by intravenous administration 70 mL of Omnipaque 350. Helical imaging was performed in the axial plane from the aortic arch to the skull base. The data was processed at the chief nuclear medicine technologist's workstation for generation of MIP sequences. Angled MIPs and volume rendered reformatted images were also generated at an offline 3D workstation. Stenoses are assessed in accordance with NASCET criteria unless otherwise indicated. This CT examination was performed using dose optimization techniques as appropriate, variously including the following: *Automated exposure control. *Adjustment of mA and/or kV according to patient size (this includes techniques or standardized protocols for targeted exams where dose is matched to indication/reason for exam; i.e. extremities or head). *Use of iterative reconstruction technique. DLP: 641 mGy-cm FINDINGS: CT Neck: The thyroid gland and remaining cervical soft tissues are within normal limits. No demonstrated focal lesion or abnormal enhancement within the intrinsic tissues of the tongue or floor of mouth. Mild mucosal thickening of the paranasal sinuses. Right-sided antrochoanal polyp extending into the pharynx. The patient is edentulous. Mildly prominent tortuous vasculature within the lips bilaterally. No demonstrated additional vascular structures near the mucosa of the pharynx/larynx. No demonstrated active extravasation of contrast. Bilateral lens extractions. Advanced degenerative disc disease at C4-C5. Moderate degenerative disc disease at all additional levels. Facet and uncovertebral joint arthropathy leads to osseous encroachment on the neural foramina from C2-T1. CT Upper Chest: Extensive irregular cystic change of the visualized right greater than left upper lungs. Moderate irregular bronchiectasis with irregular stellate consolidation in the peribronchial spaces. Coronary artery calcifications: Present - advanced. Neck CTA: Aortic Arch: Normal contour and caliber. Classic 3 vessel branching pattern of the aortic arch. Great Vessel Origins: No significant stenosis of the branch origins. Right Common Carotid Artery: No focal stenosis or occlusion. Cervical Right Internal Carotid Artery: Mild calcific atherosclerotic disease of the carotid bulb and proximal internal carotid artery without flow-limiting stenosis. Left Common Carotid Artery: No focal stenosis or occlusion. Cervical Left Internal Carotid Artery: Mild calcific atherosclerotic disease of the carotid bulb and proximal internal carotid artery without flow-limiting stenosis. Cervical Right Vertebral Artery: No focal stenosis or occlusion. Cervical Left Vertebral Artery: Mildly dominant. No focal stenosis or occlusion. CT/CT angio neck IMPRESSION: 1. CTA of the neck without proximal occlusion or flow-limiting stenosis. 2. The patient is edentulous. Mildly prominent tortuous vasculature within the lips bilaterally. No demonstrated additional vascular structures near the mucosa of the pharynx/larynx. No demonstrated active extravasation of contrast. 3. Right-sided antrochoanal polyp extending into the pharynx. 4. Extensive irregular cystic change of the visualized right greater than left upper lungs. Moderate irregular bronchiectasis with irregular stellate consolidation in the peribronchial spaces. 5. Moderate multilevel degenerative spondyloarthropathy of the cervical spine. Electronically signed by: Corey Hays DO 02/15/2024 10:14 PM [facility]
[2024-02-13 05:04] LABS: Basophils Absolute Auto 0.1 X10*3/uL (0.0-0.2); Basophils Percent Auto 0.7 % (0-2); Eosinophils Absolute Auto 1.9 X10*3/uL (0.0-0.4); Eosinophils Percent Auto 17.7 % (0-4); Hematocrit 28.5 % (42.0-52.0); Hemoglobin 8.6 g/dl (14.0-18.0); Imm Gran Abs Auto 0.03 X10*3/uL (0.00-0.03); Imm Gran Pct Auto 0.3 % (0.0-0.4); Lymphocytes Absolute Auto 0.8 X10*3/uL (1.2-4.9); Lymphocytes Percent Auto 7.1 % (20-40); MANUAL DIFF FLAG NO; Mean Corpuscular HGB Conc 30.2 g/dl (31.0-36.0); Mean Corpuscular Hemoglobin 25.7 pg (27.0-33.0); Mean Corpuscular Volume 85.1 fL (80.0-98.0); Mean Platelet Volume 8.9 fL (9.4-12.4); Monocytes Absolute Auto 0.8 X10*3/uL (0.1-1.2); Monocytes Percent Auto 6.9 % (2-11); Neutrophils Absolute Auto 7.4 x10*3/uL (2.0-8.3); Neutrophils Percent Auto 67.3 % (45-73); Platelet Count 325 X10*3/uL (160-400); Red Blood Count 3.35 X10*6/uL (4.60-5.80); Red Cell Distribution Width 15.1 % (11.0-16.0); White Blood Count 10.9 X10*3/uL (4.8-10.8)
[2024-02-13 05:09] LABS: INTERNATIONAL NORM RATIO 1.2 (0.9-1.1); Prothrombin Time 13.6 SEC (10.9-12.4)
[2024-02-13 05:28] LABS: Alanine Aminotransferase 13 U/L (0-40); Albumin Level 2.9 g/dL (3.5-5.0); Alkaline Phosphatase 67 U/L (39-117); Anion Gap 12 (12-20); Aspartate Amino Transferase 33 U/L (5-37); Bilirubin Total 0.2 mg/dL (0.0-1.0); Blood Urea Nitrogen 21 mg/dL (9-16); Calcium 9.2 mg/dL (8.4-10.2); Carbon Dioxide 33 mmol/L (22-29); Chloride 97 mmol/L (96-108); Creatinine Clr Calc Pharmacy 57.1; Estimated Glomerular Filt Rate > 60; Glucose Random 104 mg/dL (60-115); Potassium 4.8 mmol/L (3.3-5.1); Sodium 137 mmol/L (135-145); Total Protein 7.3 g/dL (6.5-8.0)
[2024-02-13] MEDS: iohexoL 350 MG/ML 100 ML INFUS..BTL 65 ML IV (06:00)
[2024-02-13] MEDS: guaiFEN/Codeine SF 200/20/10ML 10 ML LIQUID PO (06:10)
[2024-02-13] MEDS: 0.9 % Sodium Chloride 1,000 ML 999 ML IV (06:31)
[2024-02-13] MEDS: Tranexamic Acid 1,000 MG in 0.9 % Sodium Chloride 50 ML 360 MG IV (06:39)
--- NOTE | 2024-02-13 07:32 | PC.NURSE ---
Care of Pt assumed at change of shift. 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 VSS and Pt is resting quietly in bed watching TV. Pt is awaiting room assignment.
--- NOTE | 2024-02-13 07:37 | ED.GENADULT ---
HPI - General Adult General Chief complaint: GI Bleed Stated complaint: COUGHING UP BLOOD, AND HYPOTENSION Time Seen by Provider: 02/13/24 04:51 Source: patient, EMS and RN notes reviewed Mode of arrival: EMS Limitations: no limitations History of Present Illness ED Provider: HPI narrative: 83-year-old Malaysian-speaking male with pertinent history of chronic hypoxic respiratory failure due to COPD on 3 L supplemental oxygen, congestive heart failure with reduced ejection fraction, paroxysmal atrial fibrillation on Eliquis, nonischemic cardiomyopathy, sbs-[id number]-[id number] type 2 diabetes mellitus, mixed hyperlipidemia, hypertension, BPH, gastroesophageal reflux disease, lumbar disc disease recently admitted and discharged on 12/30 for culture positive for Enterococcus faecium of the PICC line catheter treated with Zyvox for 14 days comes here for hemoptysis patient is on Eliquis was seen here on 02/10/2024 for same Eliquis was stopped and restarted on lower dose sent back here again as patient is having hemoptysis again with large amount of blood Related Data Home Medications ?Medication ?Instructions ?Recorded ?Confirmed albuterol sulfate 90 mcg/actuation 2 inh inhalation Q6H PRN Shortness 12/24/23 12/24/23 aerosol inhaler (Ventolin HFA) Of Breath Or Wheezing apixaban 5 mg tablet (Eliquis) 5 mg PO BID 12/24/23 12/24/23 carvedilol 6.25 mg tablet 6.25 mg PO BID 12/24/23 12/24/23 finasteride 5 mg tablet 5 mg PO DAILY 12/24/23 12/24/23 ipratropium 0.5 mg-albuterol 3 mg 3 ml inhalation QID PRN Shortness 12/24/23 12/24/23 (2.5 mg base)/3 mL nebulization Of Breath Or Wheezing soln lovastatin 10 mg tablet 10 mg PO DAILY 12/24/23 12/24/23 metformin 500 mg tablet 500 mg PO DAILY 12/24/23 12/24/23 potassium chloride 10 mEq 10 meq PO DAILY 12/24/23 12/24/23 tablet,extended release tamsulosin 0.4 mg capsule 0.4 mg PO DAILY 12/24/23 12/24/23 umeclidinium 62.5 mcg-vilanterol 1 ea inhalation DAILY 12/24/23 12/24/23 25 mcg/actuation powdr for inhalation (Anoro Ellipta) Previous Rx's ?Medication ?Instructions ?Recorded bumetanide 1 mg tablet 0.5 mg PO BID@0800,1700 #60 tabs 12/31/23 linezolid 600 mg tablet 600 mg PO Q12H #14 tabs 12/31/23 magnesium oxide 400 mg (241.3 mg 400 mg PO DAILY #30 tabs 12/31/23 magnesium) tablet apixaban 2.5 mg tablet (Eliquis) 2.5 mg PO BID #60 tabs 02/11/24 Allergies Allergy/AdvReac Type Severity Reaction Status Date / Time Penicillins [PENICILLINS] Allergy Intermediate PASSED Verified 02/13/24 05:00 OUT trazodone Allergy Intermediate tremors Verified 02/13/24 05:00 brimonidine [From Alphagan P] Allergy Unknown Verified 02/13/24 05:00 diphenhydramine Allergy Unknown Verified 02/13/24 05:00 [From Benadryl] Review of Systems Review of Systems: Yes all other systems are reviewed and are negative [facility] Past Medical History Medical History Bronchiectasis COPD (chronic obstructive pulmonary disease) Acute hypoxemic respiratory failure Hearing loss Chronic hypoxic respiratory failure Bronchiectasis NICM (nonischemic cardiomyopathy) Swallowing problem 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 Kidney stone on left side Paroxysmal atrial fibrillation Congestive heart failure Acute and chronic respiratory failure BPH loc w urin obs/LUTS Urinary retention History of COVID-19 Chronic anticoagulation History of pneumothorax Diabetes Supplemental oxygen dependent Kidney stone on left side JESSA (mycobacterium avium-intracellulare) Bronchiectasis Glaucoma Pure hypercholesterolemia GERD (gastroesophageal reflux disease) History of MAC infection Essential hypertension Surgical History History of transurethral resection of bladder tumor (TURBT) History of cataract surgery History of left inguinal hernia repair History of bronchoscopy History of colonoscopy History of lumbar surgery History of cystoscopy Family History Family History Father No problems noted. Mother Medical history unknown Sister Diabetes Daughter In good health Son In good health Brother No problems noted. 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 Housing: Apartment Housing Other:: Gianluca Mack Are you a primary child caregiver to a significant other at home: No Do you presently have visiting nurse or other home services: Yes Alcohol intake: never Comment: 1:1 sitter in room Patient Tobacco Use Status: Former Tobacco user Tobacco use type: Cigarette Cigarette Packs Per Day: 1 Cigarettes Per Day: 20.0 Smoked in Last 30 Days: No e-Cigarette/Vaping Use: Former Use Second Hand Smoke Exposure: No Use of substances other than those prescribed or required for medical reasons: No Advance Directives: Yes Advance Directives on File: Yes Advance Directives Date on File: 02/03/22 service: No Current occupational status: retired Cognitive needs: No Hearing needs: Yes Vision needs: Yes Physical Exam ED Vital Signs: Vital Signs - 24 hr 02/13/24 04:57 02/13/24 07:30 02/13/24 07:41 Temperature 97.6 F 97.7 F Pulse Rate 83 82 Respiratory Rate 11 L 16 Blood Pressure 104/57 L 108/73 Pulse Oximetry 100 99 Oxygen Delivery Method Nasal Cannula Nasal Cannula Oxygen Flow Rate 4 BMI result Body Mass Index 18.3 Appearance: Alert. Oriented X3. No acute distress. Actively coughing up blood Eyes: PERRLA, No Nystagmus ENT: Pharynx normal. Oral Mucosa moist Neck: Normal inspection. Neck supple. CVS: Normal heart rate and rhythm. Pulses normal. Respiratory: No respiratory distress. Equal air entry bilateral, no wheezing/rales/rhonchi bilateral conducted sounds Abdomen: Soft and nontender. Bowel sounds are present, no mass palpable, no CVA tenderness Skin: Skin warm and dry. Normal skin color. Normal skin turgor. Extremities: No lower extremity edema. No calf tenderness Neuro: Oriented X 3. No motor deficit. No sensory deficit.No cerebellar signs , cranial nerves II-XII intact Medications Administered Discontinued Medications Generic Name Dose Route Start Last Admin Trade Name Freq PRN Reason Stop Dose Admin Guaifenesin/Codeine Phosphate 10 ml 02/13/24 05:17 02/13/24 06:10 Guaifen/Codeine Sf 200/20/10ml 10 Ml Liquid PO 02/13/24 05:18 10 ml ONCE ONE Administration Sodium Chloride 1,000 mls @ 999 mls/hr 02/13/24 06:14 02/13/24 06:31 Ns IV 02/13/24 07:14 999 mls/hr .Q1H1M ONE Administration Tranexamic Acid 1,000 mg/ 60 mls @ 360 mls/hr 02/13/24 06:14 02/13/24 07:35 Sodium Chloride IV 02/13/24 06:23 Infused ONCE ONE Infusion Iohexol 65 ml 02/13/24 05:59 02/13/24 06:00 Iohexol 350 Mg/Ml 100 Ml Infus..Btl IV 02/13/24 06:00 65 ml ONCE ONE Administration Medical Decision Making Medical Decision Making [facility] Narrative: Patient's hemoptysis on Eliquis with significant COPD and bronchiectasis will admit patient for observation was given TXA IV and codeine cough syrup coughing has slowed down vitals of stable hospitalist aware for admission Differential Diagnosis Differential Diagnoses: The differential diagnosis associated with the presentation includes Admission/Observation Consideration of admission/observation: Escalation of care including admission/observation considered Consult Healthcare Provider Management of the patient was discussed with: Hospitalist Lab Data [facility] Lab Attestation statement: I reviewed the patient's lab results. 02/13/24 05:00 02/13/24 04:59 Labs: Lab Results 02/13/24 02/13/24 02/13/24 Range/Units 04:59 05:00 06:32 WBC 10.9 H (4.8-10.8) X10*3/uL RBC 3.35 L (4.60-5.80) X10*6/uL Hgb 8.6 L (14.0-18.0) g/dl Hct 28.5 L (42.0-52.0) % MCV 85.1 (80.0-98.0) fL MCH 25.7 L (27.0-33.0) pg MCHC 30.2 L (31.0-36.0) g/dl RDW 15.1 (11.0-16.0) % Plt Count 325 (160-400) X10*3/uL MPV 8.9 L (9.4-12.4) fL Immature Gran % (Auto) 0.3 (0.0-0.4) % Neut % (Auto) 67.3 (45-73) % Lymph % (Auto) 7.1 L (20-40) % [place] % (Auto) 6.9 (2-11) % Eos % (Auto) 17.7 H (0-4) % Baso % (Auto) 0.7 (0-2) % Lymph # (Auto) 0.8 L (1.2-4.9) X10*3/uL [place] # (Auto) 0.8 (0.1-1.2) X10*3/uL Eos # (Auto) 1.9 H (0.0-0.4) X10*3/uL Baso # (Auto) 0.1 (0.0-0.2) X10*3/uL Abs Immat Gran (auto) 0.03 (0.00-0.03) X10*3/uL Absolute Neuts (auto) 7.4 (2.0-8.3) x10*3/uL Absolute Nucleated RBC 0.000 (0.0-0.012) X10*3/uL Nucleated RBC % (auto) 0.0 (0.0-0.2) /100WBC PT 13.6 H (10.9-12.4) SEC INR 1.2 H (0.9-1.1) Sodium 137 (135-145) mmol/L Potassium 4.8 (3.3-5.1) mmol/L Chloride 97 (96-108) mmol/L Carbon Dioxide 33 H (22-29) mmol/L Anion Gap 12 (12-20) BUN 21 H (9-16) mg/dL Creatinine 0.65 (0.5-1.4) mg/dL Estim Creat Clear Calc 57.1 Estimated GFR > 60 Random Glucose 104 (60-115) mg/dL Calcium 9.2 (8.4-10.2) mg/dL Total Bilirubin 0.2 (0.0-1.0) mg/dL AST 33 (5-37) U/L ALT 13 (0-40) U/L Alkaline Phosphatase 67 (39-117) U/L Total Protein 7.3 (6.5-8.0) g/dL Albumin 2.9 L (3.5-5.0) g/dL Blood Type O Positive Antibody Screen NEGATIVE Independent Interpretation I performed an independent interpretation of an: CT Scan Discharge Plan Discharge Clinical Impression: Cough with hemoptysis Patient Disposition: Admitted As Inpatient Print Language: Malaysian
--- NOTE | 2024-02-13 09:25 | P.HPHOSP_ITS ---
History of Present Illness Date of Service: 02/13/24 Chief Complaint: hemoptysis The patient is an 83 year old with a complicated infectious/pulmonary history (see below) who presents to the emergency room for the 2nd time in 3 days with reported hemoptysis. The patient currently is confused and not able to provide a meaningful history despite using a scrap separator. He states that he is in [place] for blood in his mouth. He reports no shortness of breath no fevers or no chest pain. Per the ED chart notes, the patient presented with similar symptoms on 02/10/2024. At that time he was noted to be on Eliquis 5 mg twice daily and his dose was appropriately decreased to 2.5 mg daily based off of his age and weight. However it appears that his hemoptysis continued and he presented again. In the ED he was noted to be borderline hypotensive and was treated for his hemoptysis with tranexamic acid. A CT chest has been ordered and has been recently read. (see full details below). The plan was for observation given his ongoing hemoptysis, however given the abnormal CT chest he will now be admitted for further treatment. The patient is seen and examined in the ED with dairy powder mixer operator services present. He states that he is in [place] and is here for blood in mouth. He reports no other significant history. Review of Systems 2 Review of Systems: unable to review due to mental status [facility] Medical History Bronchiectasis COPD (chronic obstructive pulmonary disease) Acute hypoxemic respiratory failure Hearing loss Chronic hypoxic respiratory failure Bronchiectasis NICM (nonischemic cardiomyopathy) Swallowing problem 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 Kidney stone on left side Paroxysmal atrial fibrillation Congestive heart failure Acute and chronic respiratory failure BPH loc w urin obs/LUTS Urinary retention History of COVID-19 Chronic anticoagulation History of pneumothorax Diabetes Supplemental oxygen dependent Kidney stone on left side JESSA (mycobacterium avium-intracellulare) Bronchiectasis Glaucoma Pure hypercholesterolemia GERD (gastroesophageal reflux disease) History of MAC infection Essential hypertension Family History Father No problems noted. Mother Medical history unknown Sister Diabetes Daughter In good health Son In good health Brother No problems noted. 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 Housing: Apartment Housing Other:: Gianluca Mack Are you a primary career technical education instructor to a significant other at home: No Do you presently have visiting nurse or other home services: Yes Alcohol intake: never Comment: 1:1 sitter in room Patient Tobacco Use Status: Former Tobacco user Tobacco use type: Cigarette Cigarette Packs Per Day: 1 Cigarettes Per Day: 20.0 Smoked in Last 30 Days: No e-Cigarette/Vaping Use: Former Use Second Hand Smoke Exposure: No Use of substances other than those prescribed or required for medical reasons: No Advance Directives: Yes Advance Directives on File: Yes Advance Directives Date on File: 02/03/22 service: No Current occupational status: retired Cognitive needs: No Hearing needs: Yes Vision needs: Yes Meds Allergies Allergy/AdvReac Type Severity Reaction Status Date / Time Penicillins [PENICILLINS] Allergy Intermediate PASSED Verified 02/13/24 05:00 OUT trazodone Allergy Intermediate tremors Verified 02/13/24 05:00 brimonidine [From Alphagan P] Allergy Unknown Verified 02/13/24 05:00 diphenhydramine Allergy Unknown Verified 02/13/24 05:00 [From Benadryl] Active Medications: Current Medications Acetaminophen (Acetaminophen 325 Mg Tablet) 650 mg PO Q6H PRN PRN Reason: Pain, Mild (Pain Scale 1-3), fever or headache Calcium Carbonate (Calcium Carbonate 750 Mg Tab.Chew) 750 mg PO Q4H PRN PRN Reason: Heartburn Lactated Ringer's (Lr) 1,000 mls @ 100 mls/hr IVCONT .Q10H TON Vancomycin HCl 1,000 mg/ (Sodium Chloride) 270 mls @ 270 mls/hr IV Q12H TON Magnesium Hydroxide (Milk Of Magnesia 30 Ml Oral.Susp) 30 ml PO DAILY PRN PRN Reason: Constipation Melatonin (Melatonin 3 Mg Tablet) 6 mg PO BEDTIME PRN PRN Reason: Insomnia Meropenem (Meropenem 1 Gm Vial) 1 gm IVPUSH Q8H [facility] Pharmacy Consult (Consult Rx Vancomycin Dosing) 1 each MISCELLANE DAILY PRN PRN Reason: Consult order Sodium Chloride (0.9 % Sodium Chloride Flush 3 Ml Syringe) 3 ml IVFLUSH QSHIFT [facility] Home Medications ?Medication ?Instructions ?Recorded ?Confirmed ?Last Taken ?Type albuterol sulfate 90 mcg/actuation 2 inh inhalation Q6H PRN Shortness 12/24/23 12/24/23 Unknown History aerosol inhaler (Ventolin HFA) Of Breath Or Wheezing apixaban 5 mg tablet (Eliquis) 5 mg PO BID 12/24/23 12/24/23 Unknown History carvedilol 6.25 mg tablet 6.25 mg PO BID 12/24/23 12/24/23 Unknown History finasteride 5 mg tablet 5 mg PO DAILY 12/24/23 12/24/23 Unknown History ipratropium 0.5 mg-albuterol 3 mg 3 ml inhalation QID PRN Shortness 12/24/23 12/24/23 Unknown History (2.5 mg base)/3 mL nebulization Of Breath Or Wheezing soln lovastatin 10 mg tablet 10 mg PO DAILY 12/24/23 12/24/23 Unknown History metformin 500 mg tablet 500 mg PO DAILY 12/24/23 12/24/23 Unknown History potassium chloride 10 mEq 10 meq PO DAILY 12/24/23 12/24/23 Unknown History tablet,extended release tamsulosin 0.4 mg capsule 0.4 mg PO DAILY 12/24/23 12/24/23 Unknown History umeclidinium 62.5 mcg-vilanterol 1 ea inhalation DAILY 12/24/23 12/24/23 Unknown History 25 mcg/actuation powdr for inhalation (Anoro Ellipta) Physical Exam 2 Vital Signs and Narrative: Vital Signs: Last Vital Signs Temp 97.7 F 02/13/24 07:41 Pulse 82 02/13/24 07:30 Resp 17 02/13/24 08:06 BP 108/73 02/13/24 07:30 Pulse Ox 99 02/13/24 07:30 O2 Del Method Nasal Cannula 02/13/24 07:30 O2 Flow Rate 4 02/13/24 07:30 Oxygen Flow Rate 4 02/13/24 04:57 BMI result Body Mass Index 18.3 Const: Other: Constitutional - somnolent but easily arousable, confused Eyes - PERRLA, EOMI Cardiovascular - S1S2, RRR, No edema Respiratory - scattered wheezing and rales saturating 100% without respiratory distress Gastrointestinal - NT / ND; +BS; No rebound or guarding - No CVA tenderness Extremities - no calf tenderness bilaterally, no swelling Musculoskeletal - Normal inspection, normal ROM Skin - Warm/Dry Neurological - moving all 4 limbs, speech is slow, no focal deficits appreciated, oriented to self and place, otherwise disoriented Psychological - Appropriate affect Results Labs 02/13/24 05:00 02/13/24 04:59 Labs: Laboratory Results - last 24 hr 02/13/24 02/13/24 02/13/24 04:59 05:00 06:32 MCV 85.1 MCH 25.7 L MCHC 30.2 L RDW 15.1 Plt Count 325 MPV 8.9 L Immature Gran % (Auto) 0.3 Neut % (Auto) 67.3 Lymph % (Auto) 7.1 L [place] % (Auto) 6.9 Eos % (Auto) 17.7 H Baso % (Auto) 0.7 Lymph # (Auto) 0.8 L [place] # (Auto) 0.8 Eos # (Auto) 1.9 H Baso # (Auto) 0.1 Abs Immat Gran (auto) 0.03 Absolute Neuts (auto) 7.4 Absolute Nucleated RBC 0.000 Nucleated RBC % (auto) 0.0 PT 13.6 H INR 1.2 H Anion Gap 12 Estim Creat Clear Calc 57.1 Estimated GFR > 60 Random Glucose 104 Calcium 9.2 Total Bilirubin 0.2 AST 33 ALT 13 Alkaline Phosphatase 67 Total Protein 7.3 Albumin 2.9 L Blood Type O Positive Antibody Screen NEGATIVE Imaging Radiologist's Impressions: Impressions Chest CT 02/13/24 05:51 IMPRESSION: Concerning mycobacterium pneumonia versus fungal pneumonia among other opportunistic infection such as pneumocystis Carini. Aspiration. Consider medical condition such as HIV/AIDS Fleischner guidelines were followed. Electronically signed by: Quintin Rea MD 02/13/2024 08:27 AM [facility] Assessment and Plan (1) Cough with hemoptysis: Status: Acute Plan 83-year-old male with a complicated infectious/pulmonary history who presents to the ED with ongoing hemoptysis despite changing his Eliquis dosing. His CT test is significantly abnormal indicative of possible infections and hence he will be admitted for further workup and treatment. 1. Hemoptysis, secondary to suspected pulmonary infection Has underlying history of prior JESSA, bronchiectasis, COPD Has had ESBL positive infections in the past and hence will use vancomycin and meropenem for the time being We will consult Pulmonary to see if any other etiologies We will check lactate and blood cultures At this time, the patient does not appear to be severely septic 2. Hypotension Reviewed prior blood pressure readings and, this appears to be close to his baseline Nonetheless given his above infection we will start him on some IV fluids x 1L 3. Toxic/metabolic encephalopathy Suspected due to 1. Baseline unclear Follow clinical course 4.NICM hold coreg/bumex today -- re-eval tomorrow 5. PAF on Eliquis -- will hold given hemoptysis hold bb for today 6. DM NPO for now given mental status will check POC speech eval 7. Moderate protein calorie malnutrition supplements when able Called and discussed his case with HCP Leti. She reports the patient is DNR/DNI (states that he recently signed a MOLST indicating that and will be bringing it to the hospital). DNR/DNI DVT pptx -- mechanical in light of hemoptysis Pt with complicated pulmonary infection with risk factors of prior JESSA/ESLB/Bronchiactasis complicated by acute toxic/metabolic encephalopathy therefore expected to require at least 2 midnights in the hospital for treatment hence, will be admitted as inpatient. Quality Stroke Does the patient have a stroke diagnosis?: No VTE Prior VTE?: No VTE Risk Level:: Medical - moderate - high VTE Device Contraindication: N/A - Device Ordered VTE Drug Contraindication: Treatment Not Indicated
[2024-02-13] MEDS: Lactated Ringers 1,000 ML 100 ML IVCONT (09:34)
[2024-02-13 11:23] LABS: Lactic Acid 0.5 mmol/L (0.5-2.0)
[2024-02-13] MEDS: Meropenem 1 GM VIAL IVPUSH ×2 (11:31→19:53)
[2024-02-13] MEDS: vancomycin HCL 1,250 MG in 0.9 % Sodium Chloride 250 ML 166.67 MG IV (11:38)
--- NOTE | 2024-02-13 11:58 | PHA.PROG ---
Admission Date/Time: February 13, 2024 09:20 Indication: Respiratory Weight in k.359 kg Adjusted body weight in Kg: Stanley body weight in Kg: Obesity Dosing Indication % IBW: BMI 18.3 Serum Creatinine - Last 168 Hours 02/13/24 04:59 Creatinine 0.65 Estimated CrCl and GFR - Last 168 Hours 02/13/24 04:59 Estim Creat Clear Calc 57.1 Estimated GFR > 60 Vancomycin Loading Dose: 1250mg X1 Current Vancomycin Dosing Regimen: 1250mg Q24H Vancomycin Monitoring using AUC goal of 400 - 600 range with trough as surrogate marker: 499 Date and Time for next Vancomycin Level to be drawn: 02/15/24 1000 Pharmacist Comments on Vancomycin Plan: Starting patient on 1250mg Q24H per BMI being 18.3 and patient is tiny. Predicted trough 13.1, to be followed and monitored for stable renal function and adjusted as necessary after trough comes back in 02/14. Vancomycin dosing will take advantage of [employer] as a clinical decision support tool that uses Bayesian modeling to calculate individual patient's pharmacokinetic parameters and forecast the patient's drug concentration time course with the target goal AUC 24 range of 400 - 600 mg/L/hr.
--- NOTE | 2024-02-13 12:03 | P.CONPL_ITS ---
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 chest demonstrated evolution of his chronic changes including bulla and bronchiectasis. He does not have ongoing hemoptysis at this time. Review of Systems 2 Constitutional: Constitutional: Denies daytime sleepiness, Denies excessive sweating, Denies fatigue, Denies fever(s), Denies lethargy, Denies malaise, Denies night sweats, Denies snoring and Denies weight loss Eyes: Eyes: Denies blurry vision and Denies itchy eyes ENT: Denies nasal congestion, Denies post nasal drip, Denies sinus pain, Denies sinus pressure and Denies other ( Thrush) Cardiovascular: Cardiovascular: Denies chest pain, Denies pedal edema, Denies dyspnea, Reports dyspnea on exertion, Denies orthopnea and Denies paroxysmal nocturnal dyspnea Respiratory: Respiratory: Reports cough, Reports hemoptysis, Reports excessive phlegm production, Denies dyspnea, Reports dyspnea on exertion, Denies snoring and Denies wheezing Gastrointestinal: Gastrointestinal: Denies abdominal pain and Denies heartburn Musculoskeletal: Musculoskeletal: Denies myalgias, Denies arthralgias and Denies joint swelling Integumentary/Breasts: Skin/Breast: Denies rash Neurologic: Denies memory loss and Denies seizure-like activity Psychiatric: Psychiatric: Denies abnormal sleep pattern, Denies anxiety and Denies memory loss Endocrine: Endocrine: Denies excessive sweating, Denies fatigue and Denies heat intolerance Hematologic/Lymphatic: Hematologic/Lymphatic: Denies easy bruising Allergic/Immunologic: Allergic/Immunologic: Denies itchy eyes, Denies seasonal rhinorrhea and Denies wheezing PMFSH Past Medical History Medical History (Updated 02/13/24 @ 12:22 by Brent Duenas MD) Supplemental oxygen dependent COPD (chronic obstructive pulmonary disease) Bronchiectasis Bronchiectasis Acute hypoxemic respiratory failure Hearing loss Chronic hypoxic respiratory failure Bronchiectasis NICM (nonischemic cardiomyopathy) Swallowing problem 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 Kidney stone on left side Paroxysmal atrial fibrillation Congestive heart failure Acute and chronic respiratory failure BPH loc w urin obs/LUTS Urinary retention History of COVID-19 Chronic anticoagulation History of pneumothorax Diabetes Kidney stone on left side JESSA (mycobacterium avium-intracellulare) Glaucoma Pure hypercholesterolemia GERD (gastroesophageal reflux disease) History of MAC infection Essential hypertension Family History Family History Father No problems noted. Mother Medical history unknown Sister Diabetes Daughter In good health Son In good health Brother No problems noted. 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 Housing: Apartment Housing Other:: Gianluca Mack Are you a primary field care advocate to a significant other at home: No Do you presently have visiting nurse or other home services: Yes Alcohol intake: never Comment: 1:1 sitter in room Patient Tobacco Use Status: Former Tobacco user Tobacco use type: Cigarette Cigarette Packs Per Day: 1 Cigarettes Per Day: 20.0 Smoked in Last 30 Days: No e-Cigarette/Vaping Use: Former Use Second Hand Smoke Exposure: No Use of substances other than those prescribed or required for medical reasons: No Advance Directives: Yes Advance Directives on File: Yes Advance Directives Date on File: 02/03/22 service: No Current occupational status: retired Cognitive needs: No Hearing needs: Yes Vision needs: Yes Meds Allergies Allergy/AdvReac Type Severity Reaction Status Date / Time Penicillins [PENICILLINS] Allergy Intermediate PASSED Verified 02/13/24 05:00 OUT trazodone Allergy Intermediate tremors Verified 02/13/24 05:00 brimonidine [From Alphagan P] Allergy Unknown Verified 02/13/24 05:00 diphenhydramine Allergy Unknown Verified 02/13/24 05:00 [From Benadryl] Active Medications: Current Medications Acetaminophen (Acetaminophen 325 Mg Tablet) 650 mg PO Q6H PRN PRN Reason: Pain, Mild (Pain Scale 1-3), fever or headache Calcium Carbonate (Calcium Carbonate 750 Mg Tab.Chew) 750 mg PO Q4H PRN PRN Reason: Heartburn Lactated Ringer's (Lr) 1,000 mls @ 100 mls/hr IVCONT .Q10H [facility] Stop: 02/13/24 19:29 Last Admin: 02/13/24 09:34 Dose: 100 mls/hr Magnesium Hydroxide (Milk Of Magnesia 30 Ml Oral.Susp) 30 ml PO DAILY PRN PRN Reason: Constipation Melatonin (Melatonin 3 Mg Tablet) 6 mg PO BEDTIME PRN PRN Reason: Insomnia Meropenem (Meropenem 1 Gm Vial) 1 gm IVPUSH Q8H [facility] Last Admin: 02/13/24 11:31 Dose: 1 gm Pharmacy Consult (Consult Rx Vancomycin Dosing) 1 each MISCELLANE DAILY PRN PRN Reason: Consult order Sodium Chloride (0.9 % Sodium Chloride Flush 3 Ml Syringe) [facility] Medications ?Medication ?Instructions ?Recorded ?Confirmed ?Last Taken ?Type albuterol sulfate 90 mcg/actuation 2 inh inhalation Q6H PRN Shortness 12/24/23 12/24/23 Unknown History aerosol inhaler (Ventolin HFA) Of Breath Or Wheezing apixaban 5 mg tablet (Eliquis) 5 mg PO BID 12/24/23 12/24/23 Unknown History carvedilol 6.25 mg tablet 6.25 mg PO BID 12/24/23 12/24/23 Unknown History finasteride 5 mg tablet 5 mg PO DAILY 12/24/23 12/24/23 Unknown History ipratropium 0.5 mg-albuterol 3 mg 3 ml inhalation QID PRN Shortness 12/24/23 12/24/23 Unknown History (2.5 mg base)/3 mL nebulization Of Breath Or Wheezing soln lovastatin 10 mg tablet 10 mg PO DAILY 12/24/23 12/24/23 Unknown History metformin 500 mg tablet 500 mg PO DAILY 12/24/23 12/24/23 Unknown History potassium chloride 10 mEq 10 meq PO DAILY 12/24/23 12/24/23 Unknown History tablet,extended release tamsulosin 0.4 mg capsule 0.4 mg PO DAILY 12/24/23 12/24/23 Unknown History umeclidinium 62.5 mcg-vilanterol 1 ea inhalation DAILY 12/24/23 12/24/23 Unknown History 25 mcg/actuation powdr for inhalation (Anoro Ellipta) Physical Exam 2 Vital Signs: Vital Signs: Last Vital Signs Temp 97.7 F 02/13/24 07:41 Pulse 84 02/13/24 11:40 Resp 18 02/13/24 11:40 BP 112/68 02/13/24 11:40 Pulse Ox 100 02/13/24 11:40 O2 Del Method Nasal Cannula 02/13/24 10:52 O2 Flow Rate 4 02/13/24 10:52 Oxygen Flow Rate 4 02/13/24 04:57 BMI result Body Mass Index 18.3 Const: General: no acute distress, alert and ill appearing Nutritional Appearance: thin Orientation/consciousness: Other orientation findings ( oriented) HEENT: Head: Yes atraumatic Eyes: General: appearance normal, both eyes and all related structures S clerae: sclerae normal EOM: EOMs intact bilaterally Neck: Neck: Yes supple Lymphatic: no lymphadenopathy noted Resp: Effort & Inspection: normal respiratory effort and no use of accessory muscles Auscultation: clear to auscultation bilaterally Cardio: Rate: regular rate Rhythm: regular rhythm Heart sounds: no gallops, no murmurs and no rubs Skin: General skin exam: other ( warm) Extrem: General: No clubbing, No cyanosis and No edema Results Laboratory Findings 02/13/24 05:00 02/13/24 04:59 ABG, PT/INR, D-dimer: PT/INR, D-dimer PT 13.6 SEC (10.9-12.4) H 02/13/24 05:00 INR 1.2 (0.9-1.1) H 02/13/24 05:00 Abnormal lab findings: Abnormal Labs 02/13/24 02/13/24 04:59 05:00 WBC 10.9 H RBC 3.35 L Hgb 8.6 L Hct 28.5 L MCH 25.7 L MCHC 30.2 L MPV 8.9 L Lymph % (Auto) 7.1 L Eos % (Auto) 17.7 H Lymph # (Auto) 0.8 L Eos # (Auto) 1.9 H PT 13.6 H INR 1.2 H Carbon Dioxide 33 H BUN 21 H Albumin 2.9 L Assessment and Plan (1) Cough with hemoptysis: Status: Acute (2) Emphysema with chronic bronchitis: Status: Acute (3) Bronchiectasis: Status: Acute (4) COPD (chronic obstructive pulmonary disease): Qualifiers: COPD type: COPD with acute exacerbation Qualified Code(s): J44.1 - Chronic obstructive pulmonary disease with (acute) exacerbation Status: Acute (5) Supplemental oxygen dependent: Status: Acute Plan Impression: 83-year-old gentleman with underlying end-stage COPD on 3 L and chronic bronchiectasis with ESBL E coli, stenotrophomonas, and JESSA presenting with an acute exacerbation complicated by minor hemoptysis. Recommendations: Exacerbation of chronic bronchiectasis now with hemoptysis. Self-limited. On the background of Eliquis utilization for AFib. CT chest reviewed and shows resolution of his chronic bronchiectatic changes. Would treat with Bactrim and meropenem for 10 days, if patient to be discharged, then would require placement of PICC for outpatient ertapenem. If hemoptysis persist, would require CT angio to rule out new AV malformation. Procedures Date of Service Date of Service: 02/13/24
--- NOTE | 2024-02-13 12:58 | MHC.SL.SWA ---
Speech Pathologist Impression: Mild oral phase dysphagia, pharyngeal phase WFL, question esophageal phase dysphagia d/t pt c/o sensation of globus Risk of Aspiration Due to: Medically Fragile Poor PO Intake Weak Cough Weak Voice Dysphasia Diet Status: NDD1 with thins. Oropharyngeal coordination WNL for smooth, homogenous consistencies. Pt has dentures at home but endorses that he avoids some solid foods d/t ongoing difficulty with food getting stuck. Pt has pre-existing dysphagia. Liquid Consistency and Strategies for Safe Swallow: Liquid Intake Recommendation: Thin Liquid Intake Strategies: Small Sips Solid Food Consistency: Dietary Recommendations: Pureed (NDD1) Additional Modifications to Solid Foods: Recommend NDD1 with thin liquids, pills crushed in puree, 1:1 assistance and aspiration precautions. Oral Medication Intake: Crushed with Puree Please contact the pharmacy regarding appropriate crushable or liquid drug formulations that are available whenever modified delivery is recommended. Compensatory Strategies and Precautions to be Taken for Safe Swallow: Sitting Upright (90 deg) Liquids from Cup Liquids from Straw Small Bites and Sips Alternate Liquids/Solids Rate of Ingestion Change Supervision While Eating and Drinking for Safe Swallow: Total Assistance (1:1) Foods to Avoid: Swallowing Recommended Treatments: Compens. Strategy Educat. Recommendation for Speech: Discharged with Instructions for Home Use Comment: Consider GI consultation d/t pt c/o globus sensation Frequency/Duration: Daily M-F while inpatient Date Range for Service Req: Timeline to reassess: Cleaner And Presser Clinican/Clinical Fellow: No Supervisory Statement: I have reviewed and agree with the student/clinical fellow's documentation: N/A Speech Language Pathologist: Aracely Pappas M.S., CCC-DISPUTE RESOLUTION ANALYST
--- NOTE | 2024-02-13 13:09 | PHA.MEDREC ---
Pharmacy Consult ? Medication Reconciliation Pharmacy has completed the medication reconciliation. Tried to talk to patient using concrete vibrator operator but pt didn't know any of his medications then left a voicemail with Leti Brunner (health care proxy) in the morning. Med list from [facility] [phone] was finally received around noon. Called facility to confirm the eliquis dose. Nurse Calhoun said pt was taking eliquis 5 mg bid (last dose was on sunday night). He did not receive any dose on sunday or sunday. Dose was supposed to decrease to 2.5 mg bid today but hasn't started yet since patient is here now.
[2024-02-13] MEDS: Sulfameth/Trimet 800/160/20 ML 20 ML ORAL.SUSP PO ×2 (15:34→22:43)
[2024-02-13] MEDS: 0.9 % Sodium Chloride Flush 3 ML SYRINGE IVFLUSH (15:37)
--- NOTE | 2024-02-13 19:26 | PC.NURSE ---
assumed care of pt at this time, LR and vanco continues to infuse. vss. nad warm blanket given pt resting comfortably. call yin within reach.
--- NOTE | 2024-02-13 19:53 | PC.NURSE ---
Addendum entered by Estefani Deal 02/13/24 19:54: new 22g iv established to Meir ahuja. Original Note: MD made aware pt had approx 6-8 episodes of coughing up blood into tissue, able to clear airway self. pt speaking full clear sentences denies cp/sob. vss. per MD no interventions at this time will recheck h&h. report given to imc rn.
[2024-02-13 20:39] LABS: Hematocrit 26.5 % (42.0-52.0); Hemoglobin 7.9 g/dl (14.0-18.0); Mean Corpuscular HGB Conc 29.8 g/dl (31.0-36.0); Mean Corpuscular Hemoglobin 25.2 pg (27.0-33.0); Mean Corpuscular Volume 84.4 fL (80.0-98.0); Mean Platelet Volume 9.5 fL (9.4-12.4); Platelet Count 305 X10*3/uL (160-400); Red Blood Count 3.14 X10*6/uL (4.60-5.80); Red Cell Distribution Width 15.3 % (11.0-16.0); White Blood Count 9.2 X10*3/uL (4.8-10.8)
[2024-02-13] MEDS: Melatonin 3 MG TABLET 6 MG PO (23:18)
[2024-02-14] VITALS (12 sets, daily range): BP systolic 104–136; BP diastolic 59–72; PULSE 83–99; RESP 16–20; TEMP 36.3–37.6; O2SAT 94–99; BMI 19.4
[2024-02-14] MEDS: 0.9 % Sodium Chloride Flush 3 ML SYRINGE IVFLUSH ×4 (00:34→20:47)
[2024-02-14] MEDS: Meropenem 1 GM VIAL IVPUSH ×3 (03:01→18:14)
[2024-02-14 08:11] LABS: Alanine Aminotransferase 15 U/L (0-40); Alkaline Phosphatase 65 U/L (39-117); Anion Gap 13 (12-20); Aspartate Amino Transferase 25 U/L (5-37); Bilirubin Total 0.2 mg/dL (0.0-1.0); Blood Urea Nitrogen 14 mg/dL (9-16); Calcium 8.9 mg/dL (8.4-10.2); Carbon Dioxide 30 mmol/L (22-29); Chloride 100 mmol/L (96-108); Creatinine Clr Calc Pharmacy 58.7; Estimated Glomerular Filt Rate > 60; Glucose Random 87 mg/dL (60-115); Potassium 4.6 mmol/L (3.3-5.1); Sodium 138 mmol/L (135-145); Total Protein 7.2 g/dL (6.5-8.0)
[2024-02-14 08:19] LABS: Hematocrit 26.6 % (42.0-52.0); Hemoglobin 8.1 g/dl (14.0-18.0); Mean Corpuscular HGB Conc 30.5 g/dl (31.0-36.0); Mean Corpuscular Hemoglobin 25.8 pg (27.0-33.0); Mean Corpuscular Volume 84.7 fL (80.0-98.0); Mean Platelet Volume 10.3 fL (9.4-12.4); Platelet Count 324 X10*3/uL (160-400); Red Blood Count 3.14 X10*6/uL (4.60-5.80); Red Cell Distribution Width 15.4 % (11.0-16.0)
[2024-02-14] MEDS: Sulfameth/Trimet 800/160/20 ML 20 ML ORAL.SUSP PO ×2 (10:21→20:47)
--- NOTE | 2024-02-14 10:45 | MHC.CLN ---
RE; CONSULT PT IS MODERATELY MALNOURISHED PT WITH MILDLY DEPLETED SUBCUTANEOUS FAT AND MUSCLE MASS AND PT TRIGGERS FOR 14% SIGNIFICANT WT LOSS X 6 MONTHS. NOTED MULTIPLE WT DISCREPANCIES IN PREVIOUS WT HX. RECOMMEND DAILY WTS TO ESTABLISH BASELINE WT PT FAMILIAR TO FACILITY AND PREVIOUSLY ASSESSED 12/20/23 AND 12/25/23 DIET RX: PUREED-APPROPRIATE WILL ADD ENSURE MAX BID TO INCREASE KCALS AND PROMOTE WOUND HEALING SUPP TO PROVIDE 300KCALS, 60G PROTEIN MONITOR PO INTAKE AND ENCOURAGE SUPPLEMENTS SEE ALSO FULL CLINICAL NUTRITION ASSESSMENT
--- NOTE | 2024-02-14 12:20 | HO.PM.IMPN ---
Subjective Subjective Date of Service: 02/14/24 Interval History: Seen and examined this morning Awake, alert, in no acute distress Reporting he is not feeling well, some cough with phlegm. No further hemoptysis. Denies shortness of breath Review of Systems Review of Systems: Yes all other systems are reviewed and are negative Constitutional Constitutional: Denies fever(s) Cardiovascular Cardiovascular: Denies chest pain and Denies palpitations Respiratory Respiratory: Reports cough Endocrine Endocrine: Denies palpitations Physical Exam Vital Signs: Vital Signs: Last Vital Signs Temp 99.1 F 02/14/24 10:00 Pulse 92 02/14/24 10:00 Resp 18 02/14/24 10:00 BP 120/62 02/14/24 10:00 Pulse Ox 99 02/14/24 10:00 O2 Del Method Nasal Cannula 02/14/24 10:00 O2 Flow Rate 2 02/14/24 10:00 Oxygen Flow Rate 4 02/13/24 04:57 BMI result Body Mass Index 19.4 Const: Other: Frail elderly male resting in bed comfortably, awake, alert, no acute distress Orientation/consciousness: oriented to person and oriented to place Resp: Other: No accessory muscle use Cardio: Rate: regular rate GI: Inspection: No distended Palpation (GI): Soft to palpation Neuro: General: oriented to person, oriented to place, moves all extremities and CN's II-XI intact bilaterally Extrem: General: Yes no pedal edema Objective Data Active Medications Acetaminophen (Acetaminophen 325 Mg Tablet) 650 mg PO Q6H PRN PRN Reason: Pain, Mild (Pain Scale 1-3), fever or headache Calcium Carbonate (Calcium Carbonate 750 Mg Tab.Chew) 750 mg PO Q4H PRN PRN Reason: Heartburn Magnesium Hydroxide (Milk Of Magnesia 30 Ml Oral.Susp) 30 ml PO DAILY PRN PRN Reason: Constipation Melatonin (Melatonin 3 Mg Tablet) 6 mg PO BEDTIME PRN PRN Reason: Insomnia Last Admin: 02/13/24 23:18 Dose: 6 mg Documented By: KEN Meropenem (Meropenem 1 Gm Vial) 1 gm IVPUSH Q8H [facility] Last Admin: 02/14/24 10:22 Dose: 1 gm Documented By: LEANDRO Sodium Chloride (0.9 % Sodium Chloride Flush 3 Ml Syringe) 3 ml IVFLUSH QSHIFT [facility] Last Admin: 02/14/24 10:05 Dose: 3 ml Documented By: LEANDRO Trimethoprim/Sulfamethoxazole (Sulfameth/Trimet 800/160/20 Ml 20 Ml Oral.Susp) 20 ml PO BID [facility] Last Admin: 02/14/24 10:21 Dose: 20 ml Documented By: LEANDRO Labs 02/14/24 06:54 02/14/24 06:54 Labs: Laboratory Results - last 24 hr 02/13/24 02/14/24 20:29 06:54 MCV 84.4 84.7 MCH 25.2 L 25.8 L MCHC 29.8 L 30.5 L RDW 15.3 15.4 Plt Count 305 324 MPV 9.5 10.3 Absolute Nucleated RBC 0.000 0.000 Nucleated RBC % (auto) 0.0 0.0 Anion Gap 13 Estim Creat Clear Calc 58.7 Estimated GFR > 60 Random Glucose 87 Calcium 8.9 Total Bilirubin 0.2 AST 25 ALT 15 Alkaline Phosphatase 65 Total Protein 7.2 Albumin 3.0 L Assessment and Plan (1) Cough with hemoptysis: Status: Acute Plan 83-year-old male with a complicated infectious/pulmonary history who presents to the ED with ongoing hemoptysis despite changing his Eliquis dosing. His CT test is significantly abnormal indicative of possible infections and hence he will be admitted for further workup and treatment. 1. Hemoptysis, secondary to suspected pulmonary infection Has underlying history of prior JESSA, bronchiectasis, COPD Has had ESBL positive infections past Pulmonology consult-> recommend Bactrim and IV meropenem times 10 days (ertapenem upon discharge) we will need midline when blood cultures negative Lactate normal, blood cultures pending At this time, the patient does not appear to be severely septic 2. Hypotension Reviewed prior blood pressure readings and, this appears to be close to his baseline bp stable 3. Toxic/metabolic encephalopathy resolved. appears to be at baseline 4.NICM hold coreg/bumex intially Resume Coreg Hold Bumex 5. PAF on Eliquis -- will hold given hemoptysis Resume Coreg 6. DM Tolerating NDD1 diet Hold metformin SSI, POCs 7. Moderate protein calorie malnutrition supplements when able 8. BPH Resume Flomax, finasteride Called and discussed his case with HCP Leti. She reports the patient is DNR/DNI (states that he recently signed a MOLST indicating that and will be bringing it to the hospital). DNR/DNI DVT pptx -- mechanical in light of hemoptysis Pt with complicated pulmonary infection with risk factors of prior JESSA/ESLB/Bronchiactasis complicated by acute toxic/metabolic encephalopathy therefore expected to require at least 2 midnights in the hospital for treatment hence, will be admitted as inpatient. Quality Stroke Does the patient have a stroke diagnosis?: No VTE Prior VTE?: No VTE Risk Level:: Medical - moderate - high VTE Device Contraindication: N/A - Device Ordered VTE Drug Contraindication: Treatment Not Indicated
--- NOTE | 2024-02-14 12:50 | MHC.CM.PN ---
IMM 02/14/24, Pt. was at [facility] prior to hosp stay. HCP, Leti, reports that he has been in and out of hospital and rehab for several months and is confused at this time. She said that he used to live alone, and cannot be alone now. She lives in [place] and would like pt to be in a SNF in [place] so that she can visit him more often. DCP: return to SNF, or LTC at [facility]. CM to assist with DC plan.
--- NOTE | 2024-02-14 13:44 | MHC.SL.SWA ---
Speech Pathologist Impression: Risk of Aspiration Due to: Medically Fragile Poor PO Intake Weak Cough Weak Voice Dysphasia Diet Status: Recommend continue on current diet of PUREE (NDD1) with THIN liquids, pills crushed in puree. Patient's aspiration risk is likely secondary to rapid intake of food and liquid, and requires supervision, cuing and direct assistance, if wanted, with his meals. Liquid Consistency and Strategies for Safe Swallow: Liquid Intake Recommendation: Thin Liquid Intake Strategies: Small Sips Solid Food Consistency: Dietary Recommendations: Pureed (NDD1) Additional Modifications to Solid Foods: Recommend DOWNGRADE to PUREED diet (NDD1) and continue on THIN liquids, pills WHOLE in PUREE. 1:1 supervision and aspiration precautions. Oral Medication Intake: Crushed with Puree Please contact the pharmacy regarding appropriate crushable or liquid drug formulations that are available whenever modified delivery is recommended. Compensatory Strategies and Precautions to be Taken for Safe Swallow: Sitting Upright (90 deg) Liquids from Cup Liquids from Straw Small Bites and Sips Alternate Liquids/Solids Rate of Ingestion Change Supervision While Eating and Drinking for Safe Swallow: Total Supervision (1:1) Foods to Avoid: Swallowing Recommended Treatments: Compens. Strategy Educat. Recommendation for Speech: Discharged with Instructions for Home Use Comment: Patient seen at lunch today. Per RN, ? patient aspirated at breakfast, reported that patient had coughed up food, concerned that he be re-evaluated for swallow. Patient seen yesterday for evaluation, put on conservative diet of puree/thin due to cognitive state/endentulous. Patient was awake and alert, agreed to have some lunch. COLLAR FOLDER OPERATOR communicated with patient in Bulgarian, patient persistently responded briefly only in Estonian and in gestures. When asked if he recognized I was speaking in Bulgarian, he responded yes and continued to respond only in Estonian. Patient initially refused most food saying leave it, leave it but as COLLAR FOLDER OPERATOR persisted, he then accepted if he was fed (patient appears capable of feeding self). COLLAR FOLDER OPERATOR then fed patient most of his pureed lunch, with patient producing timely oral and pharyngeal phase of swallow, with occasional mild oral residual noted, cleared by additional swallow. Patient offered drinks, but also refused these, requesting to leave it, until COLLAR FOLDER OPERATOR was clearing tray, patient then took nutritional shake, and independently drank it, notably taking serial sips from the container and rapidly drinking 2/3rds of it. Patient's aspiration risk is likely secondary to rapid intake of food and liquid, and requires supervision, cuing and assistance, if wanted, with his meals. Recommend continue on current diet of PUREE (NDD1) with THIN liquids, pills crushed in puree. RN notified of COLLAR FOLDER OPERATOR assessment today by secure text. COLLAR FOLDER OPERATOR will continue to follow. Frequency/Duration: Daily M-F while inpatient Date Range for Service Req: Timeline to reassess: Steam Meter Reader Clinican/Clinical Fellow: No Supervisory Statement: I have reviewed and agree with the student/clinical fellow's documentation: N/A Speech Language Pathologist: Amanda Graff M.A., [facility]-COLLAR FOLDER OPERATOR
[2024-02-14 16:18] LABS: Glucose, Whole Blood 121 mg/dL (60-115)
[2024-02-14] MEDS: carvediloL 6.25 MG TABLET PO (20:47)
[2024-02-14] MEDS: Melatonin 3 MG TABLET 6 MG PO (20:47)
[2024-02-14 21:44] LABS: Glucose, Whole Blood 106 mg/dL (60-115)
[2024-02-15] VITALS (7 sets, daily range): BP systolic 110–140; BP diastolic 55–73; PULSE 19–87; RESP 14–19; TEMP 36.1–36.8; O2SAT 95–100
[2024-02-15] MEDS: LORazepam 0.5 MG TABLET PO (01:17)
[2024-02-15] MEDS: Meropenem 1 GM VIAL IVPUSH ×3 (01:17→16:48)
[2024-02-15 07:15] LABS: Hemoglobin 8.4 g/dl (14.0-18.0); Mean Corpuscular Hemoglobin 25.1 pg (27.0-33.0); Mean Corpuscular Volume 83.8 fL (80.0-98.0); Platelet Count 297 X10*3/uL (160-400); Red Blood Count 3.34 X10*6/uL (4.60-5.80); Red Cell Distribution Width 15.3 % (11.0-16.0); White Blood Count 9.7 X10*3/uL (4.8-10.8)
[2024-02-15 07:53] LABS: Glucose, Whole Blood 100 mg/dL (60-115)
[2024-02-15] MEDS: Magnesium Oxide 400 MG TABLET PO (09:43)
[2024-02-15] MEDS: carvediloL 6.25 MG TABLET PO (09:43)
[2024-02-15] MEDS: Tamsulosin HCL 0.4 MG CAPSULE PO (09:43)
[2024-02-15] MEDS: Finasteride 5 MG TABLET PO (09:43)
[2024-02-15] MEDS: Escitalopram Oxalate 10 MG TABLET PO (09:43)
[2024-02-15] MEDS: Sulfameth/Trimet 800/160/20 ML 20 ML ORAL.SUSP PO (09:44)
[2024-02-15] MEDS: 0.9 % Sodium Chloride Flush 3 ML SYRINGE IVFLUSH ×2 (09:48→16:48)
--- NOTE | 2024-02-15 10:54 | MHC.SL.SWA ---
Speech Pathologist Impression:Risk of Aspiration, Pharyngoesophageal Dysphagia Risk of Aspiration Due to: Medically Fragile Poor PO Intake Weak Cough Weak Voice Dysphasia Diet Status: Recommend continue on current diet of PUREE (NDD1) with THIN liquids, pills crushed in puree. Patient's aspiration risk is likely secondary to rapid intake of food and liquid, and requires supervision, cuing and direct assistance, if wanted, with his meals. Liquid Consistency and Strategies for Safe Swallow: Liquid Intake Recommendation: Thin Liquid Intake Strategies: Small Sips Solid Food Consistency: Dietary Recommendations: Pureed (NDD1) Oral Medication Intake: Crushed with Puree Please contact the pharmacy regarding appropriate crushable or liquid drug formulations that are available whenever modified delivery is recommended. Compensatory Strategies and Precautions to be Taken for Safe Swallow: Sitting Upright (90 deg) Liquids from Cup Liquids from Straw Small Bites and Sips Alternate Liquids/Solids Rate of Ingestion Change Supervision While Eating and Drinking for Safe Swallow: Total Supervision (1:1) Swallowing Recommended Treatments: Compens. Strategy Educat. Recommendation for Speech: Discharged with Instructions for Home Use Comment: Consider GI consultation d/t pt c/o globus sensation Frequency/Duration: Daily M-F while inpatient Date Range for Service Req: Timeline to reassess: Senior Quality Engineer Clinican/Clinical Fellow: No Supervisory Statement: I have reviewed and agree with the student/clinical fellow's documentation: N/A Speech Language Pathologist: Ирина Wilkes M.A., CCC-INTAKE MANAGER
--- NOTE | 2024-02-15 11:01 | MHC.CM.PN ---
per rounds, anticipate pt return to [facility] 02/16/24, getting a mid line placed today.
[2024-02-15 11:32] LABS: Glucose, Whole Blood 99 mg/dL (60-115)
--- NOTE | 2024-02-15 12:16 | MHC.CLN ---
F/U PT IS MODERATELY MALNOURISHED PO INTAKE 50% X 2 MEALS DIET RX: PUREED-APPROPRIATE RECEIVING ENSURE MAX BID TO INCREASE KCALS AND PROMOTE WOUND HEALING SUPP PROVIDES 300KCALS, 60G PROTEIN MONITOR PO INTAKE AND ENCOURAGE SUPPLEMENTS
--- NOTE | 2024-02-15 13:23 | P.PNIM_ITS ---
Subjective Subjective Date of Service: 02/15/24 Interval History: seen and examined this morning follow up for hemoptysis no further episodes denies sob Review of Systems Review of Systems: Yes all other systems are reviewed and are negative Constitutional Constitutional: Denies fever(s) Cardiovascular Cardiovascular: Denies chest pain Physical Exam 2 Vital Signs: Vital Signs: Last Vital Signs Temp 97.9 F 02/15/24 11:13 Pulse 84 02/15/24 11:13 Resp 16 02/15/24 11:13 BP 112/73 02/15/24 11:13 Pulse Ox 100 02/15/24 11:13 O2 Del Method Nasal Cannula 02/15/24 11:13 O2 Flow Rate 4 02/15/24 11:13 Oxygen Flow Rate 4 02/13/24 04:57 BMI result Body Mass Index 19.4 Const: Other: Frail elderly male resting in bed comfortably, awake, alert, no acute distress Orientation/consciousness: oriented to person and oriented to place Resp: Other: No accessory muscle use Cardio: Rate: regular rate GI: Inspection: No distended Palpation (GI): Soft to palpation Neuro: General: oriented to person, oriented to place, moves all extremities and CN's II-XI intact bilaterally Extrem: General: Yes no pedal edema Objective Data Active Medications Acetaminophen (Acetaminophen 325 Mg Tablet) 650 mg PO Q6H PRN PRN Reason: Pain, Mild (Pain Scale 1-3), fever or headache Calcium Carbonate (Calcium Carbonate 750 Mg Tab.Chew) 750 mg PO Q4H PRN PRN Reason: Heartburn Carvedilol (Carvedilol 6.25 Mg Tablet) 6.25 mg PO BID [facility]; Protocol Last Admin: 02/15/24 09:43 Dose: 6.25 mg Documented By: KATI Escitalopram Oxalate (Escitalopram Oxalate 10 Mg Tablet) 10 mg PO DAILY [facility] Last Admin: 02/15/24 09:43 Dose: 10 mg Documented By: KATI Finasteride (Finasteride 5 Mg Tablet) 5 mg PO DAILY [facility] Last Admin: 02/15/24 09:43 Dose: 5 mg Documented By: KATI Glucose (Glucose Gel 15 Gm Gel..Gram.) 15 gm PO Q15M PRN; Protocol PRN Reason: per Hypoglycemia Standing Ord. Dextrose (D10) 250 mls @ 750 mls/hr IV Q15M PRN; Protocol PRN Reason: per Hypoglycemia Standing Ord. Magnesium Hydroxide (Milk Of Magnesia 30 Ml Oral.Susp) 30 ml PO DAILY PRN PRN Reason: Constipation Magnesium Oxide (Magnesium Oxide 400 Mg Tablet) 400 mg PO DAILY [facility] Last Admin: 02/15/24 09:43 Dose: 400 mg Documented By: KATI Melatonin (Melatonin 3 Mg Tablet) 6 mg PO BEDTIME PRN PRN Reason: Insomnia Last Admin: 02/14/24 20:47 Dose: 6 mg Documented By: KEN Meropenem (Meropenem 1 Gm Vial) 1 gm IVPUSH Q8H [facility] Last Admin: 02/15/24 09:44 Dose: 1 gm Documented By: KATI Non-Formulary Medication (Umeclidinium-Vilanterol [Anoro Ellipta]) 1 each INHALE RDAILY [facility] Sodium Chloride (0.9 % Sodium Chloride Flush 3 Ml Syringe) 3 ml IVFLUSH QSHIFT [facility] Last Admin: 02/15/24 09:48 Dose: 3 ml Documented By: KATI Tamsulosin HCl (Tamsulosin Hcl 0.4 Mg Capsule) 0.4 mg PO DAILY [facility] Last Admin: 02/15/24 09:43 Dose: 0.4 mg Documented By: KATI Trimethoprim/Sulfamethoxazole (Sulfameth/Trimet 800/160/20 Ml 20 Ml Oral.Susp) 20 ml PO BID [facility] Last Admin: 02/15/24 09:44 Dose: 20 ml Documented By: KATI Labs 02/15/24 06:56 02/14/24 06:54 Labs: Laboratory Results - last 24 hr 02/14/24 02/14/24 02/15/24 16:11 21:38 06:56 MCV 83.8 MCH 25.1 L MCHC 30.0 L RDW 15.3 Plt Count 297 MPV 10.0 Absolute Nucleated RBC 0.000 Nucleated RBC % (auto) 0.0 POC Glucose 121 H 106 02/15/24 02/15/24 07:46 11:16 MCV MCH MCHC RDW Plt Count MPV Absolute Nucleated RBC Nucleated RBC % (auto) POC Glucose 100 99 Microbiology Microbiology Results: Microbiology 02/13/24 11:09 Blood Culture - Preliminary Blood - Venous No growth after 48 hours. 02/13/24 11:01 Blood Culture - Preliminary Blood - Venous No growth after 48 hours. Assessment and Plan (1) Cough with hemoptysis: Status: Acute Plan 83-year-old male with a complicated infectious/pulmonary history who presents to the ED with ongoing hemoptysis despite changing his Eliquis dosing. His CT test is significantly abnormal indicative of possible infections and hence he will be admitted for further workup and treatment. Hemoptysis, secondary to suspected pulmonary infection Has underlying history of prior JESSA, bronchiectasis, COPD Has had ESBL positive infections past Pulmonology consult-> recommend Bactrim and IV meropenem times 10 days (ertapenem upon discharge) Lactate normal blood cultures negative to date midline placement pending At this time, the patient does not appear to be severely septic dysphagia tolerating NDD1 diet speech rec GI eval for globus sensation barium swallow pending for sunday Hypotension Reviewed prior blood pressure readings and, this appears to be close to his baseline bp stable Toxic/metabolic encephalopathy appears to be at baseline NICM hold coreg/bumex initially Resume Coreg Hold Bumex PAF on Eliquis -- will hold given hemoptysis, can resume after 72 hrs Resume Coreg DM Tolerating NDD1 diet Hold metformin SSI, POCs Moderate protein calorie malnutrition supplements when able BPH Resume Flomax, finasteride HCP Leti She reports the patient is DNR/DNI (states that he recently signed a MOLST indicating that and will be bringing it to the hospital). DNR/DNI DVT pptx -- mechanical in light of hemoptysis Pt with complicated pulmonary infection with risk factors of prior JESSA/ESLB/Bronchiactasis and dysphagia therefore requires ongoing inpatient stay Quality Stroke Does the patient have a stroke diagnosis?: No VTE Prior VTE?: No VTE Risk Level:: Medical - moderate - high VTE Device Contraindication: N/A - Device Ordered VTE Drug Contraindication: Treatment Not Indicated
--- NOTE | 2024-02-15 16:28 | HO.MIDLINE_ITS ---
Midline Insertion MIDLINE INSERTION Diagnosis: Pulmonary infection Indication: Long-term antibiotics needed Pertinent Labs: reviewed Technique: Using sterile technique including cap and mask, glove and drape, the right arm was prepped and draped in the usual sterile fashion of full barrier technique with CHG. Using ultrasound guidance, Right brachial vein access was obtained on first attempt. A 20G X 10CM non-PASV Midline catheter was positioned. The procedure was performed in S272. Ultrasound was used to document vein patency and for needle entry. A formal ultrasound picture was recorded. Vascular Fire Engine Pump Operator has released the line for use and it is currently dressed with a StatLock, Tegaderm, and CHG disc. Verification has been performe d for blood return and line patency. Arm Circumference: 22 CM Equipment: BARD PowerGlide ST Midline Catheter Type: 20G X 10 CM non-PASV Midline Lot #: [id number]
[2024-02-15 16:50] LABS: Glucose, Whole Blood 110 mg/dL (60-115)
--- NOTE | 2024-02-15 18:05 | PC.NURSE ---
BUILDING ESTIMATOR was called d/t pt coughed up large blood clots fr his mouth. c/o sob. vital as BP 178/97 HR 104 RR 22 O2 92 % on 4L. [id number]. suction performed with multiple large blood clots. MD presents at bedside and discussion done about higher acuity of care. post vital BP 158/86, HR 88 O2 99% on 4L. Will cont to monitor.
[2024-02-15 18:12] LABS: Glucose, Whole Blood 110 mg/dL (60-115)
--- NOTE | 2024-02-15 18:15 | PM.EVENT ---
Event Note Date of Service: 02/15/24 Event Note: ROOM CLEANER was called for a patient who had coughed up a large clot. Upon evaluation, the patient was hemodynamically stable but was found to have blood in the mouth, though not actively coughing. Examination revealed an old clot located in the posterior oropharynx, with fresh blood trickling around it. The bleeding appears to have stopped for now. A stat hemoglobin and hematocrit (H&H) test was requested. The case was discussed with [facility], who recommended using a tranexamic acid nebulizer and obtaining a CT scan of the neck. Currently, the bleeding has ceased, and the plan is to proceed with the tranexamic acid nebulizer and a neck CT. The patient remains hemodynamically stable and no active bleeding. Time Spent With Patient Time: Total time managing care of this patient today ____ minutes.
[2024-02-15 18:39] LABS: Hemoglobin 8.2 g/dl (14.0-18.0); Mean Corpuscular HGB Conc 30.4 g/dl (31.0-36.0); Mean Corpuscular Hemoglobin 25.4 pg (27.0-33.0); Mean Corpuscular Volume 83.6 fL (80.0-98.0); Mean Platelet Volume 9.6 fL (9.4-12.4); Platelet Count 276 X10*3/uL (160-400); Red Blood Count 3.23 X10*6/uL (4.60-5.80); Red Cell Distribution Width 15.2 % (11.0-16.0); White Blood Count 10.4 X10*3/uL (4.8-10.8)
[2024-02-15] MEDS: Tranexamic Acid 1,000 MG/10 ML VIAL 500 MG INHALE (19:10)
[2024-02-15 19:53] LABS: Glucose, Whole Blood 105 mg/dL (60-115)
[2024-02-15] MEDS: iohexoL 350 MG/ML 100 ML INFUS..BTL 70 ML IV (20:52)
[2024-02-16] VITALS (17 sets, daily range): BP systolic 93–158; BP diastolic 59–86; PULSE 88–121; RESP 17–38; TEMP 35.9–36.4; O2SAT 91–98
[2024-02-16] MEDS: Meropenem 1 GM VIAL IVPUSH ×2 (04:26→12:55)
[2024-02-16 07:41] LABS: Glucose, Whole Blood 84 mg/dL (60-115)
[2024-02-16] MEDS: Tranexamic Acid 1,000 MG/10 ML VIAL 500 MG INHALE (09:05)
--- NOTE | 2024-02-16 10:21 | HO.PM.IMPN ---
Subjective Subjective Date of Service: 02/16/24 Interval History: seen and examined this morning follow up for continuous hemoptysis this morning Reporting difficulty breathing Transferred to ICU Review of Systems Review of Systems: Yes all other systems are reviewed and are negative Constitutional Constitutional: Denies fever(s) Cardiovascular Cardiovascular: Denies chest pain Physical Exam Vital Signs: Vital Signs: Last Vital Signs Temp 97 F 02/16/24 08:00 Pulse 95 02/16/24 09:06 Resp 20 02/16/24 09:06 BP 148/75 H 02/16/24 09:03 Pulse Ox 97 02/16/24 09:03 O2 Del Method Room Air 02/16/24 09:03 O2 Flow Rate 2 02/16/24 08:00 Oxygen Flow Rate 4 02/13/24 04:57 BMI result Body Mass Index 19.4 Appearing in no acute distress lung sounds are clear to auscultation heart regular rate rhythm, clear S1, S2 positive bowel sounds, abdomen is soft, nontender neuro patient is alert x3, no focal deficits Objective Data Active Medications Acetaminophen (Acetaminophen 325 Mg Tablet) 650 mg PO Q6H PRN PRN Reason: Pain, Mild (Pain Scale 1-3), fever or headache Calcium Carbonate (Calcium Carbonate 750 Mg Tab.Chew) 750 mg PO Q4H PRN PRN Reason: Heartburn Carvedilol (Carvedilol 6.25 Mg Tablet) 6.25 mg PO BID [facility]; Protocol Last Admin: 02/15/24 21:00 Dose: Not Given Documented By: ROSEANN Non-Admin Reason: NPO Heparin Sodium (Porcine) 50 (units/ Sodium Chloride 5 ml) 0 units IVFLUSH TID [facility] Last Admin: 02/15/24 21:00 Dose: Not Given Documented By: ROSEANN Non-Admin Reason: See Note Escitalopram Oxalate (Escitalopram Oxalate 10 Mg Tablet) 10 mg PO DAILY [facility] Last Admin: 02/15/24 09:43 Dose: 10 mg Documented By: KATI Finasteride (Finasteride 5 Mg Tablet) 5 mg PO DAILY [facility] Last Admin: 02/15/24 09:43 Dose: 5 mg Documented By: KATI Glucose (Glucose Gel 15 Gm Gel..Gram.) 15 gm PO Q15M PRN; Protocol PRN Reason: per Hypoglycemia Standing Ord. Dextrose (D10) 250 mls @ 750 mls/hr IV Q15M PRN; Protocol PRN Reason: per Hypoglycemia Standing Ord. Magnesium Hydroxide (Milk Of Magnesia 30 Ml Oral.Susp) 30 ml PO DAILY PRN PRN Reason: Constipation Magnesium Oxide (Magnesium Oxide 400 Mg Tablet) 400 mg PO DAILY [facility] Last Admin: 02/15/24 09:43 Dose: 400 mg Documented By: KATI Melatonin (Melatonin 3 Mg Tablet) 6 mg PO BEDTIME PRN PRN Reason: Insomnia Last Admin: 02/14/24 20:47 Dose: 6 mg Documented By: KEN Meropenem (Meropenem 1 Gm Vial) 1 gm IVPUSH Q8H [facility] Last Admin: 02/16/24 04:26 Dose: 1 gm Documented By: ROSEANN Non-Formulary Medication (Umeclidinium-Vilanterol [Anoro Ellipta]) 1 each INHALE RDAILY [facility] Sodium Chloride (0.9 % Sodium Chloride Flush 3 Ml Syringe) 3 ml IVFLUSH QSHIFT [facility] Last Admin: 02/16/24 00:00 Dose: 3 ml Documented By: ROSEANN Tamsulosin HCl (Tamsulosin Hcl 0.4 Mg Capsule) 0.4 mg PO DAILY [facility] Last Admin: 02/15/24 09:43 Dose: 0.4 mg Documented By: KATI Trimethoprim/Sulfamethoxazole (Sulfameth/Trimet 800/160/20 Ml 20 Ml Oral.Susp) 20 ml PO BID [facility] Last Admin: 02/15/24 21:00 Dose: Not Given Documented By: ROSEANN Non-Admin Reason: NPO Labs 02/15/24 18:32 02/14/24 06:54 Labs: Laboratory Results - last 24 hr 02/15/24 02/15/24 02/15/24 11:16 16:38 17:49 MCV MCH MCHC RDW Plt Count MPV Absolute Nucleated RBC Nucleated RBC % (auto) POC Glucose 99 110 110 02/15/24 02/15/24 02/16/24 18:32 19:40 07:36 MCV 83.6 MCH 25.4 L MCHC 30.4 L RDW 15.2 Plt Count 276 MPV 9.6 Absolute Nucleated RBC 0.000 Nucleated RBC % (auto) 0.0 POC Glucose 105 84 Microbiology Microbiology Results: Microbiology 02/13/24 11:01 Blood Culture - Preliminary Blood - Venous No growth after 48 hours. 02/13/24 11:09 Blood Culture - Preliminary Blood - Venous No growth after 48 hours. Assessment and Plan (1) Cough with hemoptysis: Status: Acute Plan 83-year-old male with a complicated infectious/pulmonary history who presents to the ED with ongoing hemoptysis despite changing his Eliquis dosing. His CT test is significantly abnormal indicative of possible infections and hence he will be admitted for further workup and treatment. Epistaxis, posterior nasal pharynx Initially thought to be secondary to hemoptysis but noted clot to right nasopharynx noted Patient has continuous bleeding coming from posterior nasopharynx, bilateral rhino rockets placed by ED provider So far patient has lost at least 500+ML of blood Hemodynamically stable at this time but high risk for decompensation Discussed with ICU attending, plan to transfer patient to ICU for close monitoring, pending tertiary care facility transfer 2 units packed red blood cells ordered as well as stat CBC Pneumonia Has underlying history of prior JESSA, bronchiectasis, COPD Has had ESBL positive infections past Pulmonology consult-> recommend Bactrim and IV meropenem times 10 days (ertapenem upon discharge) midline placement pending Dysphagia tolerating NDD1 diet speech rec GI eval for globus sensation barium swallow pending for Sunday Hypotension Reviewed prior blood pressure readings and, this appears to be close to his baseline bp stable Toxic/metabolic encephalopathy appears to be at baseline NICM Coreg PAF on Eliquis -- will hold given epistaxis, can resume after 72 hrs Resume Coreg DM Tolerating NDD1 diet Hold metformin SSI, POCs Moderate protein calorie malnutrition supplements when able BPH Flomax, finasteride DNR/DNI DVT pptx -- mechanical in light of epistaxis Quality Stroke Does the patient have a stroke diagnosis?: No VTE Prior VTE?: No VTE Risk Level:: Medical - moderate - high VTE Device Contraindication: N/A - Device Ordered VTE Drug Contraindication: Treatment Not Indicated
--- NOTE | 2024-02-16 11:25 | PM.EVENT ---
Event Note Date of Service: 02/16/24 Event Note: Posterior nasal pharynx bleed. Discussed the case with Dr. Gallegos (ENT at [facility]) no need for tx, place rhinorocket, does not appear to be coming from polyp also no beds available. Call out to [facility] for tertiary care facility transfer as patient has bilateral rhino rockets and continues to bleed. Time Spent With Patient Time: Total time managing care of this patient today ____ minutes.
[2024-02-16] MEDS: Tranexamic Acid 1,000 MG/10 ML VIAL 500 MG INTRANASAL (11:30)
[2024-02-16 11:33] LABS: Hematocrit 27.5 % (42.0-52.0); Hemoglobin 8.3 g/dl (14.0-18.0); Mean Corpuscular HGB Conc 30.2 g/dl (31.0-36.0); Mean Corpuscular Volume 82.8 fL (80.0-98.0); Mean Platelet Volume 9.3 fL (9.4-12.4); Platelet Count 308 X10*3/uL (160-400); Red Blood Count 3.32 X10*6/uL (4.60-5.80); Red Cell Distribution Width 15.4 % (11.0-16.0); White Blood Count 13.2 X10*3/uL (4.8-10.8)
[2024-02-16 12:10] LABS: Glucose, Whole Blood 138 mg/dL (60-115)
[2024-02-16 12:11] LABS: Glucose, Whole Blood 154 mg/dL (60-115)
[2024-02-16] MEDS: 0.9 % Sodium Chloride Flush 3 ML SYRINGE IVFLUSH ×2 (12:12)
--- NOTE | 2024-02-16 12:12 | PC.RT ---
Pt trans to ICU, cont epistaxis. Placed on cool mist for comfort.
--- NOTE | 2024-02-16 12:53 | PM.CCN ---
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 Last day of Eliquis on day of admission. Hospital course significant for development of asthma epistaxis on 02/14 that responded well to TXA soak. Today with redevelopment of large volume posterior epistaxis, now status post placement of bilateral rhino rockets soaked in TXA, continues to have epistaxis. Case discussed with [facility] by hospitalist team with no beds available at [facility]. Transfer to [facility] requested for IR embolization by hospitalist team. Patient transferred to intensive care unit for close monitoring. Now receiving 2 units of packed red blood cells and systemic TXA. Critical Care Time (minutes): 0
[2024-02-16] MEDS: Tranexamic Acid 1,000 MG in 0.9 % Sodium Chloride 50 ML 360 MG IV (13:04)
[2024-02-16 14:40] LABS: MANUAL DIFF FLAG NO
[2024-02-16] MEDS: Midazolam HCl/PF 2 MG/2 ML VIAL 0.5 MG IVPUSH (14:48)
[2024-02-16 14:51] LABS: Basophils Absolute Auto 0.1 X10*3/uL (0.0-0.2); Basophils Percent Auto 0.6 % (0-2); Eosinophils Absolute Auto 0.7 X10*3/uL (0.0-0.4); Eosinophils Percent Auto 3.8 % (0-4); Hematocrit 38.7 % (42.0-52.0); Imm Gran Abs Auto 0.12 X10*3/uL (0.00-0.03); Imm Gran Pct Auto 0.6 % (0.0-0.4); Lymphocytes Absolute Auto 0.8 X10*3/uL (1.2-4.9); Lymphocytes Percent Auto 4.3 % (20-40); Mean Corpuscular HGB Conc 31.5 g/dl (31.0-36.0); Mean Corpuscular Hemoglobin 26.8 pg (27.0-33.0); Mean Corpuscular Volume 85.1 fL (80.0-98.0); Mean Platelet Volume 9.6 fL (9.4-12.4); Monocytes Absolute Auto 0.8 X10*3/uL (0.1-1.2); Monocytes Percent Auto 4.2 % (2-11); Neutrophils Absolute Auto 16.4 x10*3/uL (2.0-8.3); Neutrophils Percent Auto 86.5 % (45-73); Platelet Count 302 X10*3/uL (160-400); Red Blood Count 4.55 X10*6/uL (4.60-5.80); Red Cell Distribution Width 15.1 % (11.0-16.0)
[2024-02-16 14:52] LABS: Hemoglobin 12.2 g/dl (14.0-18.0)
--- NOTE | 2024-02-16 15:20 | P.DS_ITS ---
DS: Providers Provider Date of Service: 02/16/24 Date of admission: 02/13/24 09:20 Date of discharge: 02/16/24 Primary care physician: Olga Calzada MD Consults: 02/13/24 09:23 Consult to Pulmonology Routine Consulting Provider: [facility] Reason for consultation: history of JESSA, hemopytsis, abnormal CT chest - ? treat DS: Diagnosis Discharge Diagnosis (1) Cough with hemoptysis: Status: Acute DS: Summary Hospital Course Hospital Course: HP as per admitting provider. The patient is an 83 year old with a complicated infectious/pulmonary history (see below) who presents to the emergency room for the 2nd time in 3 days with reported hemoptysis. The patient currently is confused and not able to provide a meaningful history despite using a [employer] i nterpreter. He states that he is in [place] for blood in his mouth. He reports no shortness of breath no fevers or no chest pain. Per the ED chart notes, the patient presented with similar symptoms on 02/10/2024. At that time he was noted to be on Eliquis 5 mg twice daily and his dose was appropriately decreased to 2.5 mg daily based off of his age and weight. However it appears that his hemoptysis continued and he presented again. In the ED he was noted to be borderline hypotensive and was treated for his hemoptysis with tranexamic acid. A CT chest has been ordered and has been recently read. (see full details below). The plan was for observation given his ongoing hemoptysis, however given the abnormal CT chest he will now be admitted for further treatment. The patient is seen and examined in the ED with tools and parts attendant services present. He states that he is in [place] and is here for blood in mouth. He reports no other significant history. Epistaxis, posterior nasal pharynx Initially thought to be secondary to hemoptysis but noted clot to right nasopharynx, Patient has had continuous bleeding coming from posterior nasopharynx starting around 0830 this morning. 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 This morning Bilateral TXA soaked rhino rockets placed by ED provider. So far patient has lost at least 700+ML of blood, s/p 3 units PRBC transfused. Hemodynamically stable at this time but high risk for decompensation so tx to ICU for close monitoring, no hypoxia on 2 liters NC,s satting 96%. continuous suction by RN at bedside. Case discussed with ICU attending Dr. Castano at [facility], plan for tx to ICU and ENT consultation. Pneumonia . Has underlying history of prior JESSA, bronchiectasis, COPD. Has had ESBL positive infections past . Pulmonology consult-> recommend Bactrim and IV meropenem times 10 days (ertapenem upon discharge) midline placed. Dysphagia. tolerated NDD1 diet, barium swallow was pending for Sunday. has been NPO since 09 today Hypotension, initially low BP but now elevated. monitor, avoid hypotension with bleeding Toxic/metabolic encephalopathy appears to be at baseline NICM on Coreg PAF. Eliquis held since admission (02/13/24) DM. treated with Sliding scale, metformin on hold, npo since 09 Moderate protein calorie malnutrition. supplements when able to take po BPH on Flomax, finasteride Time Attestation Discharge Coordination Time (in mins): 45 Quality: Safe Use of Opioids Does Pt have an Active Cancer Diagnosis on the Problem List?: No Quality: Stroke Does the patient have a stroke diagnosis?: No Physical Exam Vital Signs: Vital Signs: Last Vital Signs Temp 97.5 F 02/16/24 13:18 Pulse 116 H 02/16/24 13:52 Resp 26 H 02/16/24 13:52 BP 158/86 H 02/16/24 13:52 Pulse Ox 96 02/16/24 13:52 O2 Del Method Nasal Cannula 02/16/24 13:52 O2 Flow Rate 3 02/16/24 11:20 Oxygen Flow Rate 4 02/13/24 04:57 BMI result Body Mass Index 19.4 Appearing in no acute distress, frail appearing head is normocephalic atraumatic eyes pupils are PERRLA sclera is anicteric mouth throat mucous membranes are intact and moist, bilateral rhino rockets neck is supple no lymphadenopathy, no JVD noted lung sounds are clear to auscultation heart regular rate rhythm, clear S1, S2 positive bowel sounds, abdomen is soft, nontender neuro patient is alert x3, no focal deficits DS: Data Data Completed and Pending Completed studies during hospitalization [Text1]: Procedures Insertion of Infusion Device into Left Brachial Vein, Percutaneous Approach (05/25/22) Insertion of Infusion Device into Right Brachial Vein, Percutaneous Approach (12/19/23) Insertion of Infusion Device into Right Cephalic Vein, Percutaneous Approach (12/07/21) Insertion of Infusion Device into Superior Vena Cava, Percutaneous Approach (12/07/21) Insertion of Infusion Device into Upper Vein, Percutaneous Approach (12/24/23) Introduction of Remdesivir Anti-infective into Peripheral Vein, Percutaneous Approach, [employer] 5 (03/18/23) Ultrasonography of Superior Vena Cava, Guidance (12/07/21) Labs on day of discharge: Laboratory Results - last 24 hr 02/15/24 02/15/24 02/15/24 16:38 17:49 18:32 WBC 10.4 RBC 3.23 L Hgb 8.2 L Hct 27.0 L MCV 83.6 MCH 25.4 L MCHC 30.4 L RDW 15.2 Plt Count 276 MPV 9.6 Immature Gran % (Auto) Neut % (Auto) Lymph % (Auto) [place] % (Auto) Eos % (Auto) Baso % (Auto) Lymph # (Auto) [place] # (Auto) Eos # (Auto) Baso # (Auto) Abs Immat Gran (auto) Absolute Neuts (auto) Absolute Nucleated RBC 0.000 Nucleated RBC % (auto) 0.0 POC Glucose 110 110 Blood Type Antibody Screen Crossmatch 02/15/24 02/16/24 02/16/24 19:40 07:36 11:26 WBC 13.2 H RBC 3.32 L Hgb 8.3 L Hct 27.5 L MCV 82.8 MCH 25.0 L MCHC 30.2 L RDW 15.4 Plt Count 308 MPV 9.3 L Immature Gran % (Auto) Neut % (Auto) Lymph % (Auto) [place] % (Auto) Eos % (Auto) Baso % (Auto) Lymph # (Auto) [place] # (Auto) Eos # (Auto) Baso # (Auto) Abs Immat Gran (auto) Absolute Neuts (auto) Absolute Nucleated RBC 0.000 Nucleated RBC % (auto) 0.0 POC Glucose 105 84 Blood Type O Positive Antibody Screen NEGATIVE Crossmatch See Detail 02/16/24 02/16/24 02/16/24 11:37 12:08 14:27 WBC 19.0 H RBC 4.55 L D Hgb 12.2 L D Hct 38.7 L D MCV 85.1 MCH 26.8 L MCHC 31.5 RDW 15.1 Plt Count 302 MPV 9.6 Immature Gran % (Auto) 0.6 H Neut % (Auto) 86.5 H Lymph % (Auto) 4.3 L [place] % (Auto) 4.2 Eos % (Auto) 3.8 Baso % (Auto) 0.6 Lymph # (Auto) 0.8 L [place] # (Auto) 0.8 Eos # (Auto) 0.7 H Baso # (Auto) 0.1 Abs Immat Gran (auto) 0.12 H Absolute Neuts (auto) 16.4 H Absolute Nucleated RBC 0.000 Nucleated RBC % (auto) 0.0 POC Glucose 138 H 154 H Blood Type Antibody Screen Crossmatch Preliminary micro results at discharge 02/13/24 11:01 Blood Culture - Preliminary Blood - Venous No growth after 48 hours. 02/13/24 11:09 Blood Culture - Preliminary Blood - Venous No growth after 48 hours. Discharge Plan Discharge Anticipated Discharge Date/Time: 02/16/24 15:10 Patient Disposition: Xfer Acute Care Hospital Discharge Diagnosis: Epistaxis/posterior nasopharynx bleeding Referrals: Olga North MD [Primary Care Provider] - 1 Week Discharge Medications: New meropenem 1 gram Recon Soln 1 g IVPUSH Q8H Qty: 10 0RF sulfamethoxazole-trimethoprim 200-40 mg/5 mL Suspension 20 ml PO BID 2 Days Qty: 80 0RF Continued metformin 500 mg tablet 500 mg PO DAILY carvedilol 6.25 mg tablet 6.25 mg PO BID ipratropium-albuterol 0.5 mg-3 mg(2.5 mg base)/3 mL solution for nebulization 3 ml inhalation Q6H PRN (Reason: Shortness Of Breath Or Wheezing) potassium chloride 10 mEq tablet extended release 10 meq PO DAILY lovastatin 10 mg tablet 10 mg PO DAILY tamsulosin 0.4 mg capsule 0.4 mg PO DAILY albuterol sulfate [Ventolin HFA] 90 mcg/actuation HFA aerosol inhaler 2 inh inhalation Q4H PRN (Reason: Shortness Of Breath Or Wheezing) finasteride 5 mg tablet 5 mg PO DAILY Anoro Ellipta 62.5-25 mcg/actuation blister with device 1 ea inhalation DAILY magnesium oxide 400 mg (241.3 mg magnesium) Tablet 400 mg PO DAILY Qty: 30 0RF bumetanide 1 mg tablet 0.5 mg PO BID Protocol: Hold for SBP< HOLD for SBP < : 90 loperamide 2 mg Tablet 4 mg PO Q4H PRN (Reason: Diarrhea) Rx Instructions: administer after each loose stool until symptoms controlled; do not exceed 8 mg per 24 hrs melatonin 3 mg Tablet 3 mg PO BEDTIME lorazepam 0.5 mg Tablet 0.5 mg PO BID calcium carbonate [Calcium Antacid] 200 mg calcium (500 mg) Tablet,Chewable 200 mg PO TID budesonide 0.5 mg/2 mL suspension for nebulization 0.5 mg inhalation BID ergocalciferol (vitamin D2) 1,250 mcg (50,000 unit) Capsule 1,250 mcg PO TH polyethylene glycol 3350 [Miralax] 17 gram/dose Powder 17 g PO DAILY PRN (Reason: Constipation) escitalopram oxalate 10 mg Tablet 10 mg PO DAILY arformoterol 15 mcg/2 mL solution for nebulization 2 ml inhalation BID magnesium hydroxide 400 mg/5 mL Suspension 30 ml PO DAILY PRN (Reason: Constipation) bisacodyl 10 mg Suppository [address] DAILY PRN (Reason: Constipation) Fleet Enema 19-7 gram/118 mL Enema [address] DAILY PRN (Reason: Constipation) Discontinued Eliquis 5 mg tablet 5 mg PO BID Discharge Orders: Discharge Order (Routine); Ordered 02/16/24 Ordered By: Chrissy Lopez Diet: NPO Activity on Discharge: Rest with bed elevated Stand Alone Forms: Patient Portal Discharge page Print Language: Cymraes Care Plan Goals: Transfer to [facility] for tertiary care secondary to posterior pharynx bleeding Health Concerns: Epistaxis/posterior nasopharynx bleeding, treated with tranexamic acid, last dose 1300 NPO since 0900 last eliquis dose 02/12/24 Plan of Treatment: Bilateral rhino rocket, suction as needed with continued bleeding Meropenem and Bactrim total 10 days started 02/13/2024 Assessment: See discharge summary Discharge Date/Time: 02/16/24 16:15
--- NOTE | 2024-02-16 16:48 | PC.NURSE ---
Assumed care of patient 12:15 Pt transferred from Med tele to ICU for increased nasopharyngeal bleeding. Plan to see if [facility] will accept patient. Pt alert, awake, oriented to person, time and situation, states he is at [facility], reoriented to [facility]. Pt has one rhinorocket to each nare soaked in TXA. These were placed by ED provider in med tele with tele hospitalist. Pt has frequent oozing/bleeding to right nare despite these in place. Requires frequent oral suctioning and wiping of blood from nose and face. Pt is managing airway, strong cough and gag, needs assistance with suctioning. Pt given 2 units RBCs. Pt is dyspnic, has work of breath at rest. MD notified of lung sounds course crackles throughout. Pt accepted by [facility] 7I ICU. RN to RN report given. Pt transfered via [facility] ambulance to [facility]. 2 family members at bedside aware of plan. Discharge teaching provided to pt and family members. Pt transported on 5L oxymask and continuous cardiac monitoring. No continuous IV medications running.
--- NOTE | 2024-02-18 07:15 | ECG_ITS ---
Test Reason : Z01.818 - Encounter for other preprocedural examination Blood Pressure : / mmHG Vent. Rate : 108 BPM Atrial Rate : 108 BPM P-R Int : 128 ms QRS Dur : 120 ms QT Int : 372 ms P-R-T Axes : 059 -56 031 degrees QTc Int : 498 ms Sinus tachycardia Right bundle branch block Left anterior fascicular block Bifascicular block Abnormal ECG When compared to the previous EKG of No significant changes seen Referred By: Olga Calzada Electronically Signed By:ELISA BRIZUELA MD
--- OUTSIDE RECORDS SUMMARY | 2024-02-19 16:08 | XMS_ITS ---
Author Name [facility] Organization Unknown Results Test Name/Text Value Interpretation Date Range Source HIV-1 p24 Antigen Abnormal [id number] - [facility]CT POC Glucose 100mg/dL Above high normal [id number] 65 - 99 [facility] MTB rpoB RIF resist mut Islt/Spm Ql Normal [id number] - [facility] MTB rpoB RIF resist mut Islt/Spm Ql Normal [id number] - [facility]CT MTB rpoB RIF resist mut Islt/Spm Ql Normal [id number] - H[facility]CT Sodium SerPl-sCnc 148mmol/L Above high normal 212631078952 1 36 - 145 H[facility] Hct VFr Bld Auto 23.9% Below low normal 060324457009 39 - 54 H[facility]CT Hgb Bld-mCnc 7.1g/dL Below low normal 688991537113 13 - 17 .7 [facility] POC Glucose 179mg/dL Above high normal 665986668269 65 - 99 H[facility]CT CD3+CD4+ Cells/CD3+CD8+ Cells Bld 1.29Ratio Below low normal 308770413164 1.5 - 2.7 HHCCT CD3+CD8+ Cells num Bld 133cells/cumm Below low normal 753546665093 139 - 783 [facility] CD3+CD4+ Cells NFr Bld 33% Below low normal 439084034912 34 - 58 [facility] CD3+CD4+ Cells num Bld 171cells/cumm Below low normal 247595743631 535 - 1451 HHCCT CD3+CD8+ Cells NFr Bld 26% Normal 455088018683 7 - 35 HHCCT POC Glucose 119mg/dL Above high normal 919726165254 65 - 99 [facility] POC Glucose 191mg/dL Above high normal 547176778390 65 - 99 HHCCT Chloride SerPl-sCnc 114mmol/L Above high normal 321733208293 98 - 107 HHCCT Glucose SerPl-mCnc 146mg/dL Above high normal 622264075768 65 - 99 HHCCT GFR/BSA.pred SerPlBld SNX-RYU-PvDBwk 90 Normal 59 - HHCCT Creat SerPl-mCnc 0.4mg/dL Below low normal 0.5 - 1.3 HHCCT BUN/Creat SerPl 48Ratio Above high normal 365944175511 10 - 25 HHCCT Anion Gap Bld-sCnc 6 Below low normal 7 - 17 HHCCT Calcium SerPl-mCnc 8.5mg/dL Below low normal 8 .7 - 10.5 HHCCT CO2 SerPl-sCnc 27mmol/L Normal 22 - 33 HH CCT BUN SerPl-mCnc 19mg/dL Normal 8 - 21 HH CCT Sodium SerPl-sCnc 147mmol/L Above high normal 1 36 - 145 HHCCT Potassium SerPl-sCnc 4.1mmol/L Normal 3.4 - 5.3 HHCCT Phosphate SerPl-mCnc 1.9mg/dL Below low normal 2.7 - 4.5 HHCCT Magnesium SerPl-mCnc 2.1mg/dL Normal 1.6 - 2.7 HHCCT MCH RBC Qn Auto 26.1pg Below low normal [id number] 27 - 31 HHCCT PMV Bld Auto 10.6fL Normal 188328337103 7.5 - 12.[address] RDW RBC Auto-Rto 16.3% Above high normal 810621721960 11 .5 - 14.5 HHCCT Hct VFr Bld Auto 25.1% Below low normal 480768939112 39 - 54 H[facility]CT Platelet num Bld Auto 162Thou/uL Normal [id number] 150 - 450 HHCCT MCHC RBC Auto-mCnc 29.5g/dL Below low normal 811350067032 3 0 - 36 HHCCT MCV RBC Auto 88fL Normal 013836042187 80 - 100 HHCC T WBC num Bld Auto 15.7Thou/uL Above high normal 294415362495 4 - 11 HHCCT RBC num Bld Auto 2.84Mil/uL Below low normal 4. 5 - 6.2 CCT Hgb Bld-mCnc 7.4g/dL Below low normal 13 - 17 .7 [facility] Glucose 166mg/dL Above high normal 521303248675 [facility] HCoV 229E RNA Nph Ql Non-probe PCR Normal [facility] C pneum DNA Nph Ql Non-probe PCR Normal [facility] HPIV2 RNA Nph Ql Non-probe PCR Normal [facility] FLUAV RNA Nph Ql Non-probe PCR Normal [facility] HCoV NL63 RNA Nph Ql Non-probe PCR Normal [facility] HCoV OC43 RNA Nph Ql Non-probe PCR Normal [facility] M pneumo DNA Nph Ql Non-probe PCR Normal [facility] HCoV HKU1 RNA Nph Ql Non-probe PCR Normal [id number] [facility] 2019-nCOV RNA Normal [id number] [facility] CT RV+EV RNA Nph Ql Non-probe PCR Normal [id number] [facility] HPIV4 RNA Nph Ql Non-probe PCR Normal [id number] [facility] B pert tox prom reg Nph Ql Non-probe PCR Normal [id number] [facility] hMPV RNA Nph Ql Non-probe PCR Normal [id number] [facility] HPIV3 RNA Nph Ql Non-probe PCR Normal [id number] [facility] FLUBV RNA Nph Ql Non-probe PCR Normal [id number] [facility] HPIV1 RNA Nph Ql Non-probe PCR Normal [id number] [facility] RSV RNA Nph Ql Non-probe PCR Normal [id number] [facility] HAdV DNA Nph Ql Non-probe PCR Normal [id number] [facility] Bordetella parapertussis Normal [facility] POC Glucose 196mg/dL Above high normal [id number] [facility] POC Glucose 161mg/dL Above high normal [facility] MTB rpoB RIF resist mut Islt/Spm Ql Normal - [facility] Magnesium SerPl-mCnc 2mg/dL Normal 1.6 - 2.7 HHCCT Phosphate SerPl-mCnc 2.6mg/dL Below low normal 2.7 - 4.5 HHCCT Chloride SerPl-sCnc 113mmol/L Above high normal 98 - 107 HHCCT Glucose SerPl-mCnc 137mg/dL Above high normal 65 - 99 HHCCT GFR/BSA.pred SerPlBld JIW-PZU-OiCHuc 90 Normal 59 - HHCCT Creat SerPl-mCnc 0.5mg/dL Normal 0.5 - 1.3 HHCCT BUN/Creat SerPl 46Ratio Above high normal 10 - 25 HHCCT Anion Gap Bld-sCnc 8 Normal 7 - 17 HHCCT Calcium SerPl-mCnc 8.6mg/dL Below low normal 8 .7 - 10.5 HHCCT CO2 SerPl-sCnc 26mmol/L Normal 22 - 33 HH CCT BUN SerPl-mCnc 23mg/dL Above high normal 8 - 21 HHCCT Sodium SerPl-sCnc 147mmol/L Above high normal 1 36 - 145 HHCCT Potassium SerPl-sCnc 4.1mmol/L Normal 3.4 - 5.3 HHCCT Globulin Ser Calc-mCnc 3.6g/dL Normal 1.5 - 3.9 HHCCT ALT SerPl-cCnc 13U/L Normal 10 - 55 HH CCT AST SerPl-cCnc 17U/L Normal 10 - 55 HH CCT Albumin SerPl-mCnc 2.7g/dL Below low normal 3 .4 - 4.8 HHCCT Bilirub Direct SerPl-mCnc 0.2mg/dL Normal 0 - 0.2 HHCCT Albumin/Glob SerPl 0.8Ratio Below low normal 1 - 3 HHCCT Prot SerPl-mCnc 6.3g/dL Normal [id number] 6.3 - 8.3 H HCCT Bilirub SerPl-mCnc 0.2mg/dL Normal 432370904114 0.2 - 1 HHCCT ALP SerPl-cCnc 63U/L Normal [id number] 45 - 128 HH CCT Hct VFr Bld Auto 26.1% Below low normal 623734582383 39 - 54 HHCCT Hgb Bld-mCnc 7.8g/dL Below low normal 187360488664 13 - 17 .7 HHCCT LDH SerPl L to P-cCnc 232U/L Normal [id number] 120 - 260 HHCCT POC Glucose 161mg/dL Above high normal 547599626559 65 - 99 HHCCT HBV surface Ag Ser Ql Normal 262556334170 - CCT HCV Ab s/co SerPl EIA 2.17S/COratio Above high normal 20230313 [id number] 0 - 0.79 HHCCT HBV core IgM Ser Ql Normal [id number] - [facility] Hepatitis C Ab Interpretation Abnormal [id number] - CCT Hepatitis Panel Interpretation Normal [id number] CCT HAV IgM Ser Ql Normal 189505472984 - HH CCT HIV 1+2 Ab+HIV1 p24 Ag Ser EIA-aCnc Normal 890977907060 - CCT Vancomycin SerPl-mCnc 11mg/L Normal 233535507026 HHCCT Time of last dose Normal 059157550166 HHCCT Hct VFr Bld Auto 26.3% Below low normal 260791006974 39 - 54 HHCCT Hgb Bld-mCnc 8g/dL Below low normal 474505709410 13 - 17 .7 HHCCT POC Glucose 138mg/dL Above high normal 628577904658 65 - 99 HHCCT POC Glucose 124mg/dL Above high normal 028594313177 65 - 99 HHCCT Magnesium SerPl-mCnc 2.1mg/dL Normal [id number] 1.6 - 2.7 HHCCT Chloride SerPl-sCnc 116mmol/L Above high normal 526869748220 98 - 107 HHCCT Glucose SerPl-mCnc 128mg/dL Above high normal 360706395333 65 - 99 HHCCT GFR/BSA.pred SerPlBld VGR-JJJ-FqYVic 90 Normal [id number] 59 - HHCCT Creat SerPl-mCnc 0.4mg/dL Below low normal 263498482386 0.5 - 1.3 HHCCT BUN/Creat SerPl 63Ratio Above high normal 095797516184 10 - 25 HHCCT Anion Gap Bld-sCnc 9 Normal 969618080751 7 - 17 HHCCT Calcium SerPl-mCnc 8.2mg/dL Below low normal 827856327322 8 .7 - 10.5 HHCCT CO2 SerPl-sCnc 22mmol/L Normal [id number] 22 - 33 HH CCT BUN SerPl-mCnc 25mg/dL Above high normal 461011566885 8 - 21 HHCCT Sodium SerPl-sCnc 147mmol/L Above high normal 194706517140 1 36 - 145 HHCCT Potassium SerPl-sCnc 3.7mmol/L Normal [id number] 3.4 - 5.3 HHCCT Phosphate SerPl-mCnc 1.4mg/dL Below low normal 488973853718 2.7 - 4.5 HHCCT MCH RBC Qn Auto 26.4pg Below low normal 629605486274 27 - 31 HHCCT PMV Bld Auto 9.7fL Normal 548897689967 7.5 - 12.[address] RDW RBC Auto-Rto 15.8% Above high normal 036568822083 11 .5 - 14.5 HHCCT Hct VFr Bld Auto 27.7% Below low normal 616969970101 39 - 54 HHCCT Platelet num Bld Auto 245Thou/uL Normal [id number] 150 - 450 HHCCT MCHC RBC Auto-mCnc 30.7g/dL Normal 591899621823 30 - 36 HHCCT MCV RBC Auto 86fL Normal 262791910684 80 - 100 HHCC T WBC num Bld Auto 26Thou/uL Above high normal 908011545341 4 - 11 HHCCT RBC num Bld Auto 3.22Mil/uL Below low normal 200352773990 4. 5 - 6.2 HHCCT Hgb Bld-mCnc 8.5g/dL Below low normal 113107792404 13 - 17 .7 HHCCT POC Glucose 134mg/dL Above high normal 240884559803 65 - 99 HHCCT POC Glucose 136mg/dL Above high normal 65 - 99 HHCCT SaO2 % BldA 99.8% Above high normal 94 - 97 HHCCT pCO2, Arterial 43mmHG Normal 32 - 45 HH CCT Total CO2, Arterial 26mmol/L Normal 22 - 28 HHCCT P/F Ratio 354 Normal HHCCT pH, Arterial 7.38 Normal 7.35 - 7.45 HH CCT Base excess BldA Calc-sCnc 0.4mmol/L Normal HHCCT O2 Ct VFr BldA Calc 12.9mL/dL Below low normal 17.6 - 24.3 HHCCT MetHgb MFr Bld 0.8% Normal 0.4 - 1.5 HH CCT COHgb MFr Bld 1.6% Normal 0 - [address] Hgb Bld-mCnc 9.2g/dL Below low normal 13 - 17 .7 HHCCT pO2, Arterial 177mmHG Above high normal 400609769371 75 - 95 HHCCT Respiratory Information VENT 50% Normal HHCCT POC Glucose 167mg/dL Above high normal 65 - 99 HHCCT pCO2, Arterial 55mmHG Above high normal 32 - 45 HHCCT Total CO2, Arterial 27mmol/L Normal 22 - 28 HHCCT P/F Ratio 310 Normal HHCCT pH, Arterial 7.3 Below low normal 7.35 - 7.45 HHCCT Base deficit BldA-sCnc 0.7mmol/L Normal HHCCT pO2, Arterial 155mmHG Above high normal 012231731076 75 - 95 HHCCT Respiratory Information VENT 50% Normal HHCCT HIV-1/2 Antibody Normal [id number] - HHCCT POC Glucose 176mg/dL Above high normal 65 - 99 HHCCT Result Normal 642253682428 - HHCCT POC Glucose 179mg/dL Above high normal 990814918105 65 - 99 HHCCT pCO2, Arterial 54mmHG Above high normal 32 - 45 HHCCT Total CO2, Arterial 27mmol/L Normal 22 - 28 HHCCT P/F Ratio 327 Normal HHCCT pH, Arterial 7.3 Below low normal 7.35 - 7.45 HHCCT Base deficit BldA-sCnc 0.9mmol/L Normal HHCCT pO2, Arterial 229mmHG Above high normal 75 - 95 HHCCT Vancomycin SerPl-mCnc 7mg/L Normal 042084304511 HHCCT Respiratory Information VENT 70% Normal 937958822871 HHCCT pCO2, Arterial 56mmHG Above high normal [id number] 32 - 45 HHCCT Total CO2, Arterial 28mmol/L Normal - 28 HHCCT P/F Ratio 307 Normal [id number] HHCCT pH, Arterial 7.29 Below low normal 7.35 - 7.45 HHCCT Base deficit BldA-sCnc 0.9mmol/L Normal HHCCT pO2, Arterial 215mmHG Above high normal 75 - 95 HHCCT Respiratory Information VENT 70% Normal [id number] HHCCT Time of last dose Normal 183287246409 HHCCT POC Glucose 146mg/dL Above high normal 815578839842 65 - 99 HHCCT pCO2, Arterial 58mmHG Above high normal 466337263995 32 - 45 HHCCT Total CO2, Arterial 29mmol/L Above high normal [id number] 22 - 28 HHCCT P/F Ratio 256 Normal 691681440738 HHCCT pH, Arterial 7.29 Below low normal 398499181580 7.35 - 7.45 HHCCT Base excess BldA Calc-sCnc 0.4mmol/L Normal 470459738883 HHCCT pO2, Arterial 128mmHG Above high normal 801079066637 75 - 95 HHCCT Lactate SerPl-sCnc 1.7mmol/L Normal 0.5 - 1. 9 HHCCT Respiratory Information VENT 50% Normal 421593259542 HHCCT Hct VFr Bld Auto 33.3% Below low normal 39 - 54 HHCCT Hgb Bld-mCnc 10.1g/dL Below low normal 13 - 17 .7 HHCCT pCO2, Arterial 48mmHG Above high normal 32 - 45 HHCCT Total CO2, Arterial 26mmol/L Normal 22 - 28 HHCCT P/F Ratio 303 Normal HHCCT pH, Arterial 7.33 Below low normal 7.35 - 7.45 HHCCT Base deficit BldA-sCnc 0.7mmol/L Normal HHCCT pO2, Arterial 212mmHG Above high normal 75 - 95 HHCCT Lactate SerPl-sCnc 2.4mmol/L Above high normal 0.5 - 1.9 HHCCT Respiratory Information VENT 70% Normal 530820007850 CCT POC Glucose 131mg/dL Above high normal [id number] 65 - 99 HHCCT pCO2, Arterial 64mmHG Above high normal 519921021642 32 - 45 HHCCT Total CO2, Arterial 31mmol/L Above high normal 606142898809 22 - 28 HHCCT P/F Ratio 71 Normal [id number] HHCCT pH, Arterial 7.28 Below low normal 693375643100 7.35 - 7.45 HHCCT Base excess BldA Calc-sCnc 1.7mmol/L Normal 385299545513 HHCCT pO2, Arterial 71mmHG Below low normal 983267876735 75 - 9 5 HHCCT Lymphocytes/leuk NFr Bld Auto 5% Normal 803402195920 HHCCT Neutrophils num Bld Auto 27.1Thou/uL Above high normal 906927027329 2 - 7.5 HHCCT Segmented Neutrophil 89% Normal 434095260331 HHCCT Monocytes/leuk NFr Bld Auto 6% Normal CCT Monocyte, Absolute 1.8Thou/uL Above high normal 343002665066 0.2 - 1.5 HHCCT Normocytes Normal 146767135022 CCT Lymphocytes num Bld Auto 1.5Thou/uL Normal [id number] 1.5 - 4.5 HHCCT Normochromic Bld Ql Smear Normal 712503363193 HHCCT Phosphate SerPl-mCnc 3.8mg/dL Normal [id number] 2.7 - 4.5 HHCCT Chloride SerPl-sCnc 108mmol/L Above high normal 527442102338 98 - 107 HHCCT Glucose SerPl-mCnc 87mg/dL Normal 534267730453 65 - 99 HHCCT GFR/BSA.pred SerPlBld TQC-XGY-IuERkl 90 Normal [id number] 59 - HHCCT Creat SerPl-mCnc 0.7mg/dL Normal [id number] 0.5 - 1.3 HHCCT BUN/Creat SerPl 70Ratio Above high normal 267602379794 10 - 25 HHCCT Anion Gap Bld-sCnc 10 Normal [id number] 7 - 17 HHCCT Calcium SerPl-mCnc 9.4mg/dL Normal 852308181615 8.7 - 10 .5 HHCCT CO2 SerPl-sCnc 26mmol/L Normal [id number] 22 - 33 HH CCT BUN SerPl-mCnc 49mg/dL Above high normal 976255379084 8 - 21 HHCCT Sodium SerPl-sCnc 144mmol/L Normal 662870387851 136 - 145 HHCCT Potassium SerPl-sCnc 4.8mmol/L Normal [id number] 3.4 - 5.3 HHCCT Magnesium SerPl-mCnc 2.5mg/dL Normal [id number] 1.6 - 2.7 HHCCT Lactate SerPl-sCnc 1.8mmol/L Normal [id number] 0.5 - 1. 9 HHCCT Respiratory Information VENT 100% Normal 494050123241 HHCCT PMV Bld Auto 9.8fL Normal [id number] 7.5 - 12.[address] Hct VFr Bld Auto 35.4% Below low normal 925648482282 39 - 54 HHCCT MCH RBC Qn Auto 26.4pg Below low normal 940400378636 27 - 31 HHCCT RDW RBC Auto-Rto 15.3% Above high normal 456876298933 11 .5 - 14.5 HHCCT Platelet num Bld Auto 355Thou/uL Normal [id number] 150 - 450 HHCCT MCHC RBC Auto-mCnc 30.5g/dL Normal [id number] 30 - 36 HHCCT MCV RBC Auto 87fL Normal [id number] 80 - 100 HHCC T WBC num Bld Auto 30.4Thou/uL Critically high 887204873353 4 - 11 HHCCT RBC num Bld Auto 4.09Mil/uL Below low normal 747008645623 4. 5 - 6.2 HHCCT Hgb Bld-mCnc 10.8g/dL Below low normal 933356203722 13 - 17 .7 HHCCT pCO2, Arterial 62mmHG Above high normal 616636224969 32 - 45 HHCCT Total CO2, Arterial 32mmol/L Above high normal 128207118224 22 - 28 HHCCT P/F Ratio 148 Normal HHCCT pH, Arterial 7.31 Below low normal 849048967029 7.35 - 7.45 HHCCT Base excess BldA Calc-sCnc 3.5mmol/L Normal HHCCT pO2, Arterial 59mmHG Below low normal 164314539425 75 - 9 5 HHCCT POC Glucose 113mg/dL Above high normal 357177536706 65 - 99 HHCCT Respiratory Information VENT 40% Normal 993491902506 HHCCT POC Glucose 157mg/dL Above high normal 496687181786 65 - 99 HHCCT Folate SerPl-mCnc 15.9ng/mL Normal 685550503960 7.2 - HHCCT TT imm Bovine Thrombin PPP 14.9seconds Normal [id number] 12.7 - 19.2 HHCCT Fibrinogen PPP-mCnc 616mg/dL Above high normal 387046693390 148 - 435 HHCCT INR PPP 1 Normal HHCCT Prothrombin time 12seconds Normal 632454905098 10 - 13.5 HHCCT aPTT PPP 32seconds Normal [id number] 25 - 36 HHCCT Anticoagulant APIXABAN (ELIQUIS) Normal HHCCT Anticoagulant APIXABAN (ELIQUIS) Normal HHCCT Anticoagulant APIXABAN (ELIQUIS) Normal HHCCT Normocytes Normal HHCCT Normochromic Bld Ql Smear Normal HHCCT Retics num Auto 83Thou/uL Normal 30 - 100 H HCCT Immature Reticulocyte Fraction 16.8% Above high normal 2.3 - 15.9 HHCCT Retics/100 RBC NFr Auto 1.9% Normal 0.7 - 2 HHCCT Hgb Retic Qn Auto 24.6pg Below low normal 28 - 35 HHCCT Reticulocyte production index 1.6% Normal 1 - 2 HHCCT pCO2, Arterial 97mmHG Above high normal 32 - 45 HHCCT Total CO2, Arterial 35mmol/L Above high normal 22 - 28 HHCCT P/F Ratio 383 Normal CCT pH, Arterial 7.14 Critically low 7.35 - 7. 45 HHCCT Base excess BldA Calc-sCnc 0.5mmol/L Normal CCT pO2, Arterial 153mmHG Above high normal 75 - 95 HHCCT Trigl SerPl-mCnc 86mg/dL Normal [id number] - 150 HHCCT Vit B12 SerPl-mCnc 1257pg/mL Above high normal 243 - 894 HHCCT Bilirub Direct SerPl-mCnc 0.2mg/dL Normal 0 - 0.2 HHCCT LDH SerPl L to P-cCnc Normal 120 - 260 HHCCT Iron SerPl-mCnc 172ug/dL Above high normal 807856857673 53 - 167 HHCCT Ferritin SerPl-mCnc 55ug/L Normal [id number] 30 - 40 0 HHCCT Iron Satn MFr SerPl Normal 20 - 50 HHCCT TIBC SerPl-mCnc Normal 100 - 400 H HCCT UIBC SerPl-mCnc Normal 112 - 346 H HCCT Respiratory Information VENT 40% Normal CCT Est. average glucose Bld gHb Est-mCnc 105mg/dL Normal HHCCT Hgb A1c MFr Bld 5.3% Normal - 5.7 H HCCT Magnesium SerPl-mCnc 2.7mg/dL Normal 1.6 - 2.7 HHCCT Globulin Ser Calc-mCnc 4.9g/dL Above high normal 1.5 - 3.9 HHCCT ALT SerPl-cCnc 16U/L Normal 10 - 55 HH CCT AST SerPl-cCnc 26U/L Normal 10 - 55 HH CCT GFR/BSA.pred SerPlBld CDM-TIN-UtQRxv 90 Normal 59 - HHCCT Albumin SerPl-mCnc 3.7g/dL Normal 3.4 - 4. 8 HHCCT Albumin/Glob SerPl 0.8Ratio Below low normal 1 - 3 HHCCT Creat SerPl-mCnc 0.5mg/dL Normal 0.5 - 1.3 HHCCT Bilirub SerPl-mCnc 0.4mg/dL Normal 0.2 - 1 HHCCT Anion Gap Bld-sCnc 11 Normal 7 - 17 HHCCT Sodium SerPl-sCnc 140mmol/L Normal 136 - 145 HHCCT Potassium SerPl-sCnc 5.6mmol/L Above high normal 3 3.4 - 5.3 HHCCT Chloride SerPl-sCnc 104mmol/L Normal 98 - 10 7 HHCCT Glucose SerPl-mCnc 143mg/dL Above high normal 65 - 99 HHCCT Prot SerPl-mCnc 8.6g/dL Above high normal 6.3 - 8.3 HHCCT BUN/Creat SerPl 86Ratio Above high normal 10 - 25 HHCCT Calcium SerPl-mCnc 9.5mg/dL Normal 8.7 - 10 .5 HHCCT CO2 SerPl-sCnc 25mmol/L Normal 22 - 33 HH CCT BUN SerPl-mCnc 43mg/dL Above high normal 8 - 21 HHCCT ALP SerPl-cCnc 92U/L Normal 45 - 128 HH CCT Troponin T SerPl-mCnc 12ng/L Normal - 23 HHCCT Delta Normal - 3 HHCCT Phosphate SerPl-mCnc 3.8mg/dL Normal 2.7 - 4.5 HHCCT Lactate SerPl-sCnc 2.6mmol/L Above high normal 0.5 - 1.9 HHCCT MCH RBC Qn Auto 26.3pg Below low normal 27 - 31 HHCCT PMV Bld Auto 9.7fL Normal 7.5 - 12.[address] [facility] [address] RDW RBC Auto-Rto 15.1% Above high normal 11 .5 - 14.5 HHCCT Hct VFr Bld Auto 38.9% Below low normal 39 - 54 HHCCT Platelet num Bld Auto 362Thou/uL Normal 150 - 450 HHCCT MCHC RBC Auto-mCnc 30.8g/dL Normal 30 - 36 HHCCT MCV RBC Auto 85fL Normal 80 - 100 HHCC T WBC num Bld Auto 26.8Thou/uL Above high normal 4 - 11 HHCCT RBC num Bld Auto 4.57Mil/uL Normal 4.5 - 6.2 HHCCT Hgb Bld-mCnc 12g/dL Below low normal 13 - 17 .7 HHCCT pCO2, Arterial 74mmHG Above high normal 32 - 45 HHCCT Total CO2, Arterial 33mmol/L Above high normal 22 - 28 HHCCT pH, Arterial 7.25 Below low normal 7.35 - 7.45 HHCCT Base excess BldA Calc-sCnc 2.1mmol/L Normal HHCCT pO2, Arterial 78mmHG Normal 75 - [address] Respiratory Information OTHER Normal [facility] Glucose 160mg/dL Above high normal [id number] 65 - 99 [facility]
--- OUTSIDE RECORDS SUMMARY | 2024-02-19 16:08 | XMS_ITS | Clinical Summary ---
Author Organization Unknown Care Team Providers Care Organ Builder Name Role Phone MICKEY ANGUIANO MD, LESA Unavailable Unavailable GRANT RN, JESSY Unavailable Unavailable BILL HUERTA, CLINICAL COASTAL AND ESTUARY SPECIALIST, HENRY Tai available Unavailable Payers Payer Name Policy Type Policy Number Effective Date Expira tion Date MEDICARE - NGS ID/DC - PD [id number] Problems Condition Name Condition Details Condition Category Status Onset Date Resolution Date Last Treatment Date Treating Clinician Comments CHR OBSTRUCTIVE PULMON DISEASE WITH (ACUTE) LOWER RESP INFCT Active 04-16 00:00: 00 COVID-19 Active 04-16 00:00: 00 PNEUMONIA DUE TO CORONAVIRUS DISEASE 2019 Active 04-16 00:00: 00 TYPE 2 DIABETES MELLITUS WITHOUT COMPLICATION S Active 04-16 00:00: 00 OTHER THROMBOPHILI A Active 04-16 00:00: 00 HYPERTENSIVE HEART DISEASE WITH HEART FAILURE Active 04-16 00:00: 00 UNSPECIFIED SYSTOLIC (CONGESTIVE) HEART FAILURE Active 04-16 00:00: 00 PAROXYSMAL ATRIAL FIBRILLATION Active 04-16 00:00: 00 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 Active 04-16 00:00: 00 BRONCHIECTAS IS, UNCOMPLICATE D Active 04-16 00:00: 00 OTHER CARDIOMYOPAT HIES Active 04-16 00:00: 00 OTHER INTERVERTEBR AL DISC DEGENERATION , LUMBAR REGION Active 04-16 00:00: 00 MIXED HYPERLIPIDEM IA Active 04-16 00:00: 00 UNSPECIFIED SENSORINEURA L HEARING LOSS Active 04-16 00:00: 00 UNSPECIFIED GLAUCOMA Active 04-16 00:00: 00 ELEVATED WHITE BLOOD CELL COUNT, UNSPECIFIED Active 04-16 00:00: 00 GASTRO-ESOPH AGEAL REFLUX DISEASE WITHOUT ESOPHAGITIS Active 04-16 00:00: 00 BENIGN PROSTATIC HYPERPLASIA WITH LOWER URINARY TRACT SYMP Active 04-16 00:00: 00 OTHER RETENTION OF URINE Active 04-16 00:00: 00 PERSONAL HISTORY OF COVID-19 Active 04-16 00:00: 00 Problems related to health literacy Active 04-16 00:00: 00 EXTENDED SPECTRUM BETA LACTAMASE (ESBL) RESISTANCE Active 04-16 00:00: 00 PERSONAL INJURY LITIGATION PARALEGAL (CURRENT) USE OF INHALED STEROIDS Active 04-16 00:00: 00 PERSONAL INJURY LITIGATION PARALEGAL (CURRENT) USE OF ANTICOAGULAN TS Active 04-16 00:00: 00 RETIREMENT (CURRENT) USE OF ORAL HYPOGLYCEMIC DRUGS Active 04-16 00:00: 00 DEPENDENCE ON SUPPLEMENTAL OXYGEN Active 04-16 00:00: 00 Allergies, Adverse Reactions, Alerts Allergy Name Allergy Type Status Severity Reaction(s) Onset Date Inactive Date Treating Clinician Comments PENICILLIN Propensity to adverse reactions Active 04-16 19:16: 49 TRAZADONE Propensity to adverse reactions Active 04-16 19:17: 01 DIPHENHYDRAM INE Propensity to adverse reactions Active 04-16 19:17: 17 BRIMONIDINE Propensity to adverse reactions Active 04-16 19:17: 28 Medications Ordered Medication Name Filled Medication Name Start Date Stop Date Current Medication? Ordering Clinician Indication Dosage Frequency Signature (SIG) Comments Components prednisone 5 mg tablet 2022-03 00:00: 00 04-16 00:00 :00 No [id number] Per instruc tions ONCE DAILY Per instructio ns ONCE DAILY (route: oral) Med Classific ation: Endocrine Anoro Ellipta 62.5 mcg-25 mcg/actuati on powder for inhalation 2022-03 00:00: 00 Yes [id number] Per instruc tions 2 TIMES DAILY Per instructio ns 2 TIMES DAILY (route: inhalation ) Med Classific ation: Respirato ry Therapy Agents bumetanide 1 mg tablet 2022-03 00:00: 00 04-16 00:00 :00 No [id number] Per instruc tions ONCE DAILY Per instructio ns ONCE DAILY (route: oral) Med Classific ation: Cardiovas cular Therapy Agents carvedilol 6.25 mg tablet 2022-03 00:00: 00 Yes [id number] Per instruc tions two (2) times a day Per instructio ns two (2) times a day (route: oral) Med Classific ation: Cardiovas cular Therapy Agents Eliquis 5 mg tablet 2022-03 00:00: 00 Yes [id number] Per instruc tions two (2) times a day Per instructio ns two (2) times a day (route: oral) Med Classific ation: Hematolog ical Agents Entresto 24 mg-26 mg tablet 2022-03 00:00: 00 Yes [id number] Unavailable Per instruc tions two (2) times a day Per instructio ns two (2) times a day (route: oral) Med Classific ation: Cardiovas cular Therapy Agents lovastatin 10 mg tablet 2022-03 00:00: 00 Yes [id number] Per instruc tions ONCE DAILY Per instructio ns ONCE DAILY (route: oral) Med Classific ation: Cardiovas cular Therapy Agents metformin ER 500 mg tablet,exte nded release 24 hr 2022-03 00:00: 00 Yes [id number] Unavailable Per instruc tions ONCE DAILY Per instructio ns ONCE DAILY (route: oral) Med Classific ation: Endocrine omeprazole 40 mg capsule,del ayed release 2022-03 00:00: 00 Yes [id number] Per instruc tions ONCE DAILY Per instructio ns ONCE DAILY (route: oral) Med Classific ation: Gastroint estinal Therapy Agents tamsulosin 0.4 mg capsule 2022-03 00:00: 00 Yes [id number] Per instruc tions ONCE DAILY Per instructio ns ONCE DAILY (route: oral) Med Classific ation: Genitouri nary Therapy finasteride 5 mg tablet 2022-03 00:00: 00 Yes [id number] 1 tablet DAILY 1 tablet DAILY (route: oral) Med Classific ation: Genitouri nary Therapy ipratropium 0.5 mg-albutero l 3 mg (2.5 mg base)/3 mL nebulizatio n soln 2022-03 00:00: 00 Yes [id number] 3 mL 4 TIMES DAILY 3 mL 4 TIMES DAILY (route: inhalation ) Med Classific ation: Respirato ry Therapy Agents loratadine 10 mg tablet 2022-03 00:00: 00 04-16 23:59 :00 No [id number] 1 tablet DAILY 1 tablet DAILY (route: oral) Med Classific ation: Respirato ry Therapy Agents travoprost 0.004 % eye drops 2022-03 00:00: 00 Yes [id number] 1 drops BEDTIME 1 drops BEDTIME (route: ophthalmic (eye)) Med Classific ation: Ophthalmi c Agents bumetanide 0.5 mg tablet 04-16 00:00: 00 Yes [id number] 1 tablet DAILY 1 tablet DAILY (route: oral) Med Classific ation: Cardiovas cular Therapy Agents dexamethaso ne 6 mg tablet 04-16 00:00: 00 Yes [id number] 1 tablet DAILY 1 tablet DAILY (route: oral) Med Classific ation: Endocrine dextrometho rphan-guaif enesin 10 mg-100 mg/5 mL oral syrup 04-16 00:00: 00 04-21 23:59 :00 No [id number] 10 mL 3 TIMES DAILY 10 mL 3 TIMES DAILY (route: oral) Med Classific ation: Respirato ry Therapy Agents docusate sodium 100 mg capsule 04-16 00:00: 00 Yes [id number] 1 capsule 2 TIMES DAILY 1 capsule 2 TIMES DAILY (route: oral) Med Classific ation: Gastroint estinal Therapy Agents OXYGEN 04-16 00:00: 00 Yes [id number] 2 Liter NEEDED 2 Liter A S NEEDED (route: Oxygen) Med Classific ation: Medical Oxygen Ventolin HFA 90 mcg/actuati on aerosol inhaler 04-16 00:00: 00 Yes [id number] 2 puff EVERY 4 HOURS 2 puff EVERY 4 HOURS (route: inhalation ) Med Classific ation: Respirato ry Therapy Agents Bactrim DS 800 mg-160 mg tablet 05-07 00:00: 00 05-14 23:59 :00 No [id number] 1 tablet 2 TIMES DAILY 1 tablet 2 TIMES DAILY (route: oral) Med Classific ation: Anti-Infe ctive Agents guaifenesin ER 600 mg tablet, extended release 12 hr 05-07 00:00: 00 Yes [id number] 1 tablet EVERY 12 HOURS 1 tablet EVERY 12 HOURS (route: oral) Med Classific ation: Respirato ry Therapy Agents Mucinex Fast-Max DM Max 5 mg-100 mg/5 mL oral liquid 05-07 00:00: 00 Yes [id number] 10 mL EVERY 6 HOURS 10 mL EVERY 6 HOURS (route: oral) Med Classific ation: Respirato ry Therapy Agents Immunizations Ordered Immunization Name Filled Immunization Name Date Status Comments Refusal Reason INFLUENZA, TIV (INACTIVATED) 2023-02-26 00:00:00 COVID-19, COVID-19 2022-11-27 00:00:00 Vital Signs Vital Name Observation Time Observation Value Commen ts Temperature 2023-05-10 12:45:00.000 97.9 [degF] Temperature 2023-05-07 09:36:00.000 98.4 [degF] Temperature 2023-04-16 12:29:00.000 98.4 [degF] BMI (%) 2023-05-07 09:36:00.000 22 kg/m2 BMI (%) 2023-04-16 18:15:05.000 22 kg/m2 Height 2023-05-07 09:36:00.000 66 [in_us] Height 2023-04-16 18:14:47.000 67 [in_us] Pulse 2023-05-10 12:45:00.000 60 /min Pulse 2023-05-07 09:36:00.000 85 /min Pulse 2023-04-16 12:29:00.000 74 /min O2 Saturation (%) 2023-05-10 12:45:00.000 97 % O2 Saturation (%) 2023-05-07 09:36:00.000 99 % O2 Saturation (%) 2023-04-16 12:29:00.000 98 % Respirations 2023-05-10 12:45:00.000 18 /min Respirations 2023-05-07 09:36:00.000 18 /min Respirations 2023-04-16 12:29:00.000 20 /min Weight (lbs) 2023-05-10 12:45:00.000 139 [lb_av] Weight (lbs) 2023-05-07 09:36:00.000 140 [lb_av] Weight (lbs) 2023-04-16 18:15:05.000 143 [lb_av] Systolic Blood Pressure 2023-05-10 12:45:00.000 100 mm [Hg] Systolic Blood Pressure 2023-05-07 09:36:00.000 128 mm [Hg] Systolic Blood Pressure 2023-04-16 12:29:00.000 126 mm [Hg] Diastolic Blood Pressure 2023-05-10 12:45:00.000 50 mm [Hg] Diastolic Blood Pressure 2023-05-07 09:36:00.000 58 mm [Hg] Diastolic Blood Pressure 2023-04-16 12:29:00.000 72 mm [Hg] Plan of Treatment Planned Activity Planned Date Details Comments Future Scheduled Test SKILLED NU RSE TO EVALUATE PATIENT, IDENTIFY PRIMARY AND CO-MORBID CONDITIONS CODED PER CODING GUIDELINES, AND DEVELOP PATIENT SPECIFIC PLAN OF CARE THAT INCLUDES PATIENT GOAL FOR HOME HEALTH. [code = SKILLED NURSE TO EVALUATE PATIENT, IDENTIFY PRIMARY AND CO-MORBID CONDITIONS CODED PER CODING GUIDELINES, AND DEVELOP PATIENT SPECIFIC PLAN OF CARE THAT INCLUDES PATIENT GOAL FOR HOME HEALTH.] Future Scheduled Test PATIENT VYAS S A RISK OF HOSPITALIZATION AND ED USE. SKILLED NURSE TO ESTABLISH SUPPORT MEASURES TO MINIMIZE RISK OF HOSPITALIZATION AND ED USE, AND INSTRUCT PATIENT/CAREGIVER ON METHODS TO REDUCE AVOIDABLE HOSPITALIZATION AND ED USE. [code = PATIENT HAS A RISK OF HOSPITALIZATION AND ED USE. SKILLED NURSE TO ESTABLISH SUPPORT MEASURES TO MINIMIZE RISK OF HOSPITALIZATION AND ED USE, AND INSTRUCT PATIENT/CAREGIVER ON METHODS TO REDUCE AVOIDABLE HOSPITALIZATION AND ED USE.] Future Scheduled Test SKILLED NU RSE TO PROVIDE INSTRUCTION TO PATIENT/CAREGIVER RELATED TO DISCHARGE PLANNING. [code = SKILLED NURSE TO PROVIDE INSTRUCTION TO PATIENT/CAREGIVER RELATED TO DISCHARGE PLANNING.] Future Scheduled Test SKILLED NU RSE TO PERFORM HOME SAFETY AND FALL ASSESSMENT AND PROVIDE INSTRUCTION TO IMPLEMENT HOME SAFETY AND FALL PREVENTION STRATEGIES. [code = SKILLED NURSE TO PERFORM HOME SAFETY AND FALL ASSESSMENT AND PROVIDE INSTRUCTION TO IMPLEMENT HOME SAFETY AND FALL PREVENTION STRATEGIES.] Future Scheduled Test SKILLED NU RSE FOR OBSERVATION AND ASSESSMENT OF PATIENTS PAIN LEVEL AND EFFECTIVENESS OF PAIN MANAGEMENT REGIMEN. SKILLED NURSE TO INSTRUCT PATIENT/CAREGIVER REGARDING PHARMACOLOGIC AND NON-PHARMACOLOGIC PAIN CONTROL MEASURES. SKILLED NURSE TO REPORT TO PHYSICIAN IF PAIN IS UNCONTROLLED WITH CURRENT PAIN MANAGEMENT REGIMEN. [code = SKILLED NURSE FOR OBSERVATION AND ASSESSMENT OF PATIENTS PAIN LEVEL AND EFFECTIVENESS OF PAIN MANAGEMENT REGIMEN. SKILLED NURSE TO INSTRUCT PATIENT/CAREGIVER REGARDING PHARMACOLOGIC AND NON-PHARMACOLOGIC PAIN CONTROL MEASURES. SKILLED NURSE TO REPORT TO PHYSICIAN IF PAIN IS UNCONTROLLED WITH CURRENT PAIN MANAGEMENT REGIMEN.] Future Scheduled Test SKILLED NU RSE TO ASSESS PATIENT'S SKIN INTEGRITY AND INSTRUCT PATIENT/CAREGIVER ON MEASURES TO PREVENT PRESSURE ULCERS. [code = SKILLED NURSE TO ASSESS PATIENT'S SKIN INTEGRITY AND INSTRUCT PATIENT/CAREGIVER ON MEASURES TO PREVENT PRESSURE ULCERS.] Future Scheduled Test SKILLED NU RSE TO INSTRUCT PATIENT/CAREGIVER ON COPD TO INCLUDE TEACHING AND SELF-MANAGEMENT RELATED TO COPD DISEASE PROCESS, SIGNS AND SYMPTOMS, AND COMPLICATIONS. [code = SKILLED NURSE TO INSTRUCT PATIENT/CAREGIVER ON COPD TO INCLUDE TEACHING AND SELF-MANAGEMENT RELATED TO COPD DISEASE PROCESS, SIGNS AND SYMPTOMS, AND COMPLICATIONS.] Future Scheduled Test OXYGEN VIA NASAL CANNULA @ 2 LITERS PRN SOB. SKILLED NURSE FOR O/A AND SKILLED TEACHING OF SAFE OXYGEN USE IN THE HOME. [code = OXYGEN VIA NASAL CANNULA @ 2 LITERS PRN SOB. SKILLED NURSE FOR O/A AND SKILLED TEACHING OF SAFE OXYGEN USE IN THE HOME.] Future Scheduled Test SKILLED NU RSE FOR O/A AND TEACHING OF DIABETIC MANAGEMENT INCLUDING BLOOD SUGAR MONITORING/USE OF GLUCOMETER, DIABETIC DIET, LOWER EXTREMITY SKIN INSPECTION, PROPER SKIN/FOOT CARE, AND SIGNS AND SYMPTOMS HYPO/HYPERGLYCEMIA TO REPORT. [code = SKILLED NURSE FOR O/A AND TEACHING OF DIABETIC MANAGEMENT INCLUDING BLOOD SUGAR MONITORING/USE OF GLUCOMETER, DIABETIC DIET, LOWER EXTREMITY SKIN INSPECTION, PROPER SKIN/FOOT CARE, AND SIGNS AND SYMPTOMS HYPO/HYPERGLYCEMIA TO REPORT.] Future Scheduled Test SKILLED NU RSE TO PERFORM AND RECORD BLOOD SUGAR READING PRN FOR SIGNS AND SYMPTOMS OF HYPO/HYPERGLYCEMIA. [code = SKILLED NURSE TO PERFORM AND RECORD BLOOD SUGAR READING PRN FOR SIGNS AND SYMPTOMS OF HYPO/HYPERGLYCEMIA.] Future Scheduled Test SKILLED NU RSE FOR O/A OF MUSCULOSKELETAL STATUS AND TEACHING ON MEASURES TO MANAGE INTERVERTEBRAL DISC DEGENERATION, AND TO MAINTAIN SAFETY WITH ACTIVITY [code = SKILLED NURSE FOR O/A OF MUSCULOSKELETAL STATUS AND TEACHING ON MEASURES TO MANAGE INTERVERTEBRAL DISC DEGENERATION, AND TO MAINTAIN SAFETY WITH ACTIVITY] Future Scheduled Test SKILLED NU RSE TO REVIEW PATIENT MEDICATIONS. INSTRUCT PATIENT/CAREGIVER ON MONITORING OF EFFECTIVENESS, ADVERSE DRUG REACTIONS, SIDE EFFECTS OF ALL MEDICATIONS (PRESCRIPTION/-OTC), AND HOW AND WHEN TO REPORT PROBLEMS. [code = SKILLED NURSE TO REVIEW PATIENT MEDICATIONS. INSTRUCT PATIENT/CAREGIVER ON MONITORING OF EFFECTIVENESS, ADVERSE DRUG REACTIONS, SIDE EFFECTS OF ALL MEDICATIONS (PRESCRIPTION/-OTC), AND HOW AND WHEN TO REPORT PROBLEMS.] Future Scheduled Test TELEHEALTH SERVICES TO INCLUDE SUNDAY THROUGH SUNDAY MONITORING OF PATIENT RESPONSE TO DISEASE SPECIFIC SURVEY QUESTIONS. PATIENT MAY ENTER VITAL SIGNS: BP, PULSEOX, WEIGHT, TEMPERATURE, OR GLUCOSE (UTILIZING OWN V/S MONITORING DEVICES) OR SUBMITTED VIA RPM TRANSMISSION (UTILIZING EQUIPMENT PROVIDED). REPORT VITAL SIGNS THAT ARE OUTSIDE OF PATIENT SPECIFIC V/S PARAMETERS TO PHYSICIAN. 5 PRN VIRTUAL VISITS PER WEEK MAY BE PERFORMED UTILIZING TECHNOLOGY/TELECOMMUNICATIONS SYSTEM TO OPTIMIZE SKILLED SERVICES FURNISHED ON THE PLAN OF CARE. [code = TELEHEALTH SERVICES TO INCLUDE SUNDAY THROUGH SUNDAY MONITORING OF PATIENT RESPONSE TO DISEASE SPECIFIC SURVEY QUESTIONS. PATIENT MAY ENTER VITAL SIGNS: BP, PULSEOX, WEIGHT, TEMPERATURE, OR GLUCOSE (UTILIZING OWN V/S MONITORING DEVICES) OR SUBMITTED VIA RPM TRANSMISSION (UTILIZING EQUIPMENT PROVIDED). REPORT VITAL SIGNS THAT ARE OUTSIDE OF PATIENT SPECIFIC V/S PARAMETERS TO PHYSICIAN. 5 PRN VIRTUAL VISITS PER WEEK MAY BE PERFORMED UTILIZING TECHNOLOGY/TELECOMMUNICATIONS SYSTEM TO OPTIMIZE SKILLED SERVICES FURNISHED ON THE PLAN OF CARE.] Future Scheduled Test VIRTUAL SIT FREQUENCY: 1-6 PER WEEK X 3 WEEKS AND 6 PRN VIRTUAL VISITS MAY BE PERFORMED UTILIZING TELECOMMUNICATIONS SYSTEM TO OPTIMIZE SKILLED SERVICES FURNISHED ON THE PLAN OF CARE. SKILLED NURSE TO ESTABLISH SUPPORT MEASURES TO MINIMIZE RISK OF REHOSPITALIZATION, AND INSTRUCT PATIENT/CAREGIVER ON METHODS TO REDUCE AVOIDABLE HOSPITALIZATION. [code = VIRTUAL VISIT FREQUENCY: 1-6 PER WEEK X 3 WEEKS AND 6 PRN VIRTUAL VISITS MAY BE PERFORMED UTILIZING TELECOMMUNICATIONS SYSTEM TO OPTIMIZE SKILLED SERVICES FURNISHED ON THE PLAN OF CARE. SKILLED NURSE TO ESTABLISH SUPPORT MEASURES TO MINIMIZE RISK OF REHOSPITALIZATION, AND INSTRUCT PATIENT/CAREGIVER ON METHODS TO REDUCE AVOIDABLE HOSPITALIZATION.] Future Scheduled Test SKILLED NU RSE FOR O/A, TEACHING AND MANAGEMENT OF BPH, URINARY RETNETION FOR EARLY IDENTIFICATION OF EXACERBATION OF DISEASE PROCESS [code = SKILLED NURSE FOR O/A, TEACHING AND MANAGEMENT OF BPH, URINARY RETNETION FOR EARLY IDENTIFICATION OF EXACERBATION OF DISEASE PROCESS] Future Scheduled Test SKILLED NU RSE FOR O/A, TEACHING RELATED TO GERD FOR EARLY IDENTIFICATION OF EXACERBATION OF DISEASE PROCESS. [code = SKILLED NURSE FOR O/A, TEACHING RELATED TO GERD FOR EARLY IDENTIFICATION OF EXACERBATION OF DISEASE PROCESS.] Future Scheduled Test SKILLED NU RSE FOR O/A, TEACHING AND SELF-MANAGEMENT RELATED TO HEART FAILURE. INSTRUCT PATIENT/CAREGIVER ON SIGNS AND SYMPTOMS OF EXACERBATION TO REPORT AND IMPORTANCE OF OBTAINING AND RECORDING DAILY WEIGHT AND/OR MEASUREMENTS. SN OR TRAINED PATIENT/CAREGIVER TO OBTAIN WEIGHT DAILY AND WEIGHT GAIN OF 2 LBS OVERNIGHT OR 5 LBS IN 1 WEEK TO BE REPORTED TO PHYSICIAN/PROVIDER. IF UNABLE TO WEIGH PATIENT, SN OR TRAINED PATIENT/CAREGIVER TO OBTAIN MEASUREMENT OF LE IN CM DAILY AND REPORT AN INCREASE OF 1 CM TO PHYSICIAN/PROVIDER. [code = SKILLED NURSE FOR O/A, TEACHING AND SELF-MANAGEMENT RELATED TO HEART FAILURE. INSTRUCT PATIENT/CAREGIVER ON SIGNS AND SYMPTOMS OF EXACERBATION TO REPORT AND IMPORTANCE OF OBTAINING AND RECORDING DAILY WEIGHT AND/OR MEASUREMENTS. SN OR TRAINED PATIENT/CAREGIVER TO OBTAIN WEIGHT DAILY AND WEIGHT GAIN OF 2 LBS OVERNIGHT OR 5 LBS IN 1 WEEK TO BE REPORTED TO PHYSICIAN/PROVIDER. IF UNABLE TO WEIGH PATIENT, SN OR TRAINED PATIENT/CAREGIVER TO OBTAIN MEASUREMENT OF LE IN CM DAILY AND REPORT AN INCREASE OF 1 CM TO PHYSICIAN/PROVIDER.] Future Scheduled Test SKILLED NU RSE FOR O/A OF RESPIRATORY SYSTEM D/T ACUTE AND CHRONIC RESP FAILURE WITH HYPOXIA, BRONCHIECTASIS TO IDENTIFY CHANGES ASSOCIATED WITH EXACERBATION FOR EARLY INTERVENTION OF COMPLICATIONS. [code = SKILLED NURSE FOR O/A OF RESPIRATORY SYSTEM D/T ACUTE AND CHRONIC RESP FAILURE WITH HYPOXIA, BRONCHIECTASIS TO IDENTIFY CHANGES ASSOCIATED WITH EXACERBATION FOR EARLY INTERVENTION OF COMPLICATIONS.] Future Scheduled Test SKILLED NU RSE FOR O/A, TEACHING, AND MANAGEMENT OF CARDIOMYOPATHY, A FIB, HTN. [code = SKILLED NURSE FOR O/A, TEACHING, AND MANAGEMENT OF CARDIOMYOPATHY, A FIB, HTN.] Future Scheduled Test SKILLED NU RSE FOR O/A AND SKILLED TEACHING RELATED TO SIGNS AND SYMPTOMS OF INFECTION AND INFECTION CONTROL MEASURES R/T COVID-19, PNA, SEPSIS, ESBL. [code = SKILLED NURSE FOR O/A AND SKILLED TEACHING RELATED TO SIGNS AND SYMPTOMS OF INFECTION AND INFECTION CONTROL MEASURES R/T COVID-19, PNA, SEPSIS, ESBL.] Future Scheduled Test OXYGEN VIA NASAL CANNULA @ 2 LITERS PRN SOB. SKILLED NURSE FOR O/A AND SKILLED TEACHING OF SAFE OXYGEN USE IN THE HOME. [code = OXYGEN VIA NASAL CANNULA @ 2 LITERS PRN SOB. SKILLED NURSE FOR O/A AND SKILLED TEACHING OF SAFE OXYGEN USE IN THE HOME.] Goal 2023-05-07 Patient Goal - TO FEEL AMADOR R Goal 2023-05-12 Patient Goal - TO FEEL AMADOR R Goal Provider Goal - A PLAN OF CARE WILL BE ESTABLISHED THAT MEETS PATIENT'S SENIOR LIVING NEEDS AND INCLUDES PATIENT GOAL FOR HOME HEALTH. Goal Provider Goal - PATIENT WILL HAVE SUPPORT MEASURES ESTABLISHED TO PREVENT HOSPITALIZATION AND ED USE AND PATIENT/CAREGIVER WILL VERBALIZE/DEMONSTRATE METHODS TO REDUCE AVOIDABLE HOSPITALIZATION AND ED USE BY END OF EPISODE. Goal Provider Goal - PATIENT/CAREGIVER WILL VERBALIZE UNDERSTANDING OF DISCHARGE PLANNING INSTRUCTIONS BY DATE OF DISCHARGE. Goal Provider Goal - PATIENT/CAREGIVER WILL VERBALIZE/DEMONSTRATE EFFECTIVE HOME SAFETY AND FALL PREVENTION STRATEGIES THROUGHOUT CERTIFICATION PERIOD. Goal Provider Goal - PATIENT/CAREGIVER WILL DEMONSTRATE UNDERSTANDING OF PHARMACOLOGIC AND NONPHARMACOLOGIC PAIN CONTROL MEASURES AND PATIENT WILL HAVE IMPROVEMENT IN PAIN INTERFERING WITH ACTIVITY EVIDENCED BY PAIN CONTROLLED AT LEVEL OF 7 OR LESS BY END OF CERTIFICATION PERIOD. Goal Provider Goal - PATIENT/CAREGIVER WILL VERBALIZE UNDERSTANDING OF PRESSURE ULCER PREVENTION BY END OF THE EPISODE. Goal Provider Goal - PATIENT/CAREGIVER WILL VERBALIZE/DEMONSTRATE KNOWLEDGE AND MANAGEMENT OF COPD BY END OF EPISODE. Goal Provider Goal - PATIENT/CAREGIVER WILL VERBALIZE/DEMONSTRATE UNDERSTANDING OF SAFE OXYGEN USE IN THE HOME THROUGHOUT THE EPISODE. Goal Provider Goal - PATIENT/CAREGIVER WILL VERBALIZE/DEMONSTRATE KNOWLEDGE OF DIABETIC MANAGEMENT. CHANGES IN DIABETIC STATUS WILL BE IDENTIFIED AND REPORTED TO PHYSICIAN FOR PROMPT INTERVENTION THROUGHOUT THE CERTIFICATION PERIOD. Goal Provider Goal - BLOOD SUGAR READING WILL BE OBTAINED ORDERED THROUGHOUT CERTIFICATION PERIOD. Goal Provider Goal - PATIENT/CAREGIVER WILL VERBALIZE/DEMONSTRATE ABILITY TO MANAGE MUSCULOSKELETAL DISEASE WHILE MAINTAINING SAFETY THROUGHOUT THE EPISODE. Goal Provider Goal - PATIENT/CAREGIVER WILL VERBALIZE UNDERSTANDING OF EDUCATION PROVIDED ON MEDICATIONS BY THE END OF THE CERTIFICATION PERIOD. Goal Provider Goal - PATIENT / CAREGIVER WILL UTILIZE TELEHEALTH TO ACHIEVE GOALS OUTLINED ON THE PLAN OF CARE AND WILL DEMONSTRATE UNDERSTANDING OF PROPER USE OF TELEMONITORING SYSTEM FOR THE DURATION OF THE TELEHEALTH SERVICE. Goal Provider Goal - PATIENT/CAREGIVER WILL UTILIZE VIRTUAL VISITS TO ACHIEVE GOALS OUTLINED ON THE PLAN OF CARE. PATIENT WILL HAVE SUPPORT MEASURES ESTABLISHED TO PREVENT HOSPITALIZATION AND PATIENT/CAREGIVER WILL VERBALIZE/DEMONSTRATE METHODS TO REDUCE AVOIDABLE HOSPITALIZATION THROUGHOUT THE CERTIFICATION PERIOD. Goal Provider Goal - PATIENT/CAREGIVER WILL VERBALIZE UNDERSTANDING OF GENITOURINARY DISEASE PROCESS, AND EXACERBATIONS OF GENITOURINARY DISEASE WILL BE PROMPTLY IDENTIFIED FOR EARLY INTERVENTION THROUGHOUT THE CERTIFICATION PERIOD. Goal Provider Goal - EXACERBATIONS OF GASTROINTESTINAL DISEASE WILL BE PROMPTLY IDENTIFIED AND INTERVENTIONS IMPLEMENTED TO MINIMIZE RISKS TO PATIENT BY END OF EPISODE. Goal Provider Goal - PATIENT/CAREGIVER WILL VERBALIZE/DEMONSTRATE KNOWLEDGE AND MANAGEMENT OF HEART FAILURE DISEASE PROCESS BY END OF EPISODE. Goal Provider Goal - CHANGES IN RESPIRATORY STATUS WILL BE IDENTIFIED AND REPORTED TO PHYSICIAN FOR PROMPT INTERVENTION TO MINIMIZE ASSOCIATED RISKS THROUGHOUT THE CERTIFICATION PERIOD. Goal Provider Goal - PATIENT/CAREGIVER WILL VERBALIZE/DEMONSTRATE MANAGEMENT OF CARDIAC DISEASE PROCESS AND EXACERBATIONS WILL BE IDENTIFIED AND PROMPTLY REPORTED THROUGHOUT THE CERTIFICATION PERIOD. Goal Provider Goal - PATIENT/CAREGIVER WILL VERBALIZE/DEMONSTRATE UNDERSTANDING OF S/S OF INFECTION AND INFECTION CONTROL MEASURES. SIGNS AND SYMPTOMS OF INFECTION WILL BE IDENTIFIED AND PHYSICIAN NOTIFIED FOR PROMPT INTERVENTION THROUGHOUT THE CERTIFICATION PERIOD. Goal Provider Goal - PATIENT/CAREGIVER WILL VERBALIZE/DEMONSTRATE UNDERSTANDING OF SAFE OXYGEN USE IN THE HOME THROUGHOUT THE EPISODE. Reason for Visit REMAINS INPATIENT AT TIME OF DISCHARGE Encounters Start Date/Time End Date/Time Encounter Type Admission Type Attending [facility] Care Department Encounter ID Discharge Date Discharge Status Discharge Condition Discharge Reason Percent Goals Met 2023-04-16 00:00:00 2023-05-12 00:00:00 Outpatient JESSY CAMEJO [facility] [id number] 2023-05-12 00:00:00 DISCHARGED /TRANSFERR ED TO A SHORT-TERM [facility] FOR INPATIENT CARE REMAINS INPATIENT AT TIME OF DISCHARGE ADMITTED TO HOSPITAL 45.95
== END 2024-02-16 16:15 | disposition short-term general hospital (02) | DRG 190 ==
LOC: HO.ED 07:51 → HO.EDOVER 09:25 → HO.IMC 19:37 → HO.ICU 02-16 11:25
PROVIDERS: Internal Medicine; Internal Medicine Pulmonary Disease; Physician Assistant Medical; Admitting Provider Family Medicine; Emergency Provider Internal Medicine; PCP Internal Medicine; Visit Provider Nurse Practitioner Acute Care
DX: J47.1 Bronchiectasis with (acute) exacerbation (principal); G92.8 Other toxic encephalopathy; E44.0 Moderate protein-calorie malnutrition; Z68.1 Body mass index [BMI] 19.9 or less, adult; R04.2 Hemoptysis; I42.8 Other cardiomyopathies; I95.9 Hypotension, unspecified; Z66 Do not resuscitate; N40.0 Benign prostatic hyperplasia without lower urinary tract symptoms; R13.10 Dysphagia, unspecified; I48.0 Paroxysmal atrial fibrillation; E11.9 Type 2 diabetes mellitus without complications; R04.0 Epistaxis; J18.9 Pneumonia, unspecified organism; J47.0 Bronchiectasis with acute lower respiratory infection; Z87.891 Personal history of nicotine dependence; Z99.81 Dependence on supplemental oxygen; Z79.01 Long term (current) use of anticoagulants; Z79.84 Long term (current) use of oral hypoglycemic drugs; Z79.899 Other long term (current) drug therapy
CPT/HCPCS: 36410; 36415; 70498; 71260; 80053; 82947; 83605; 85025; 85027; 85610; 86850; 86900; 86901; 86920; 86923; 87040; 92526; 92610; 93005; 94640; 94799; 99285; C1751; J2185; J2250; J3371; J7120; P9016; Q9967

== ENCOUNTER → 2024-02-13 04:52 | Outpatient (BNV) | payer OTHER, SELFPAY | PROVIDERS: Emergency Provider Internal Medicine; PCP Internal Medicine; Visit Provider Radiology Diagnostic Radiology | DX: J69.0 Pneumonitis due to inhalation of food and vomit (principal) | CPT/HCPCS: 71260 ==

== ENCOUNTER 2024-02-13 09:20 | Outpatient (BNV) | payer OTHER, SELFPAY | END 2024-02-18 07:15 | PROVIDERS: Admitting Provider Family Medicine; Emergency Provider Internal Medicine; PCP Internal Medicine; Visit Provider Internal Medicine Cardiovascular Disease | DX: I45.2 Bifascicular block (principal) | CPT/HCPCS: 93010 ==

== ENCOUNTER → 2024-02-13 09:20 | Outpatient (BNV) | payer OTHER, SELFPAY | PROVIDERS: Admitting Provider Family Medicine; Emergency Provider Internal Medicine; PCP Internal Medicine; Visit Provider Family Medicine | DX: R04.2 Hemoptysis (principal) | CPT/HCPCS: 99223; 99232; 99239; 99499 ==

== ENCOUNTER → 2024-02-13 09:20 | Outpatient (BNV) | payer OTHER, SELFPAY | PROVIDERS: Admitting Provider Family Medicine; Emergency Provider Internal Medicine; PCP Internal Medicine; Visit Provider Internal Medicine Pulmonary Disease | DX: R04.2 Hemoptysis (principal); J47.9 Bronchiectasis, uncomplicated; J44.1 Chronic obstructive pulmonary disease with (acute) exacerbation; Z99.81 Dependence on supplemental oxygen | CPT/HCPCS: 99222; 99233 ==